=== PATIENT | male | born 1940 | race Caucasian/White ===

== ENCOUNTER 2018-10-18 20:33 | Inpatient (IN) | payer MEDICARE, OTHER, SELFPAY ==
[2018-10-18 20:33] VITALS: BP 103/62; PULSE 79; RESP 18; TEMP 35.5; O2SAT 100; BMI 41.8
--- NOTE | 2018-10-18 20:42 | ED.RN ---
PT WAS DROPPED OFF AT FRONT DOOR BY . PT ABLE TO ANSWER NAME AND BIRTHDAY. STATES HE WAS SHORT OF BREATH. AFTER THAT PATIENT STARTED TALKING INCOHERENTLY, NOT MAKING ANY SENSE. WHEN ARRIVED BACK, SHE STATES HE CAME HOME FROM A MEETING AT 1999 AND SHE NOTICED HE WAS HAVING TROUBLE SPEAKING. PT SENT STRAIGHT BACK TO ROOM 17 AND PRIMARY RN NOTIFIED.
[2018-10-18 20:44] VITALS: BP 124/62; PULSE 77; RESP 18; O2SAT 95
--- NOTE | 2018-10-18 20:44 | ED.RN ---
RN CALLED FOR EKG, PULLED OLD EKGS FOR
[2018-10-18 20:46] VITALS: BP 98/68; PULSE 75; RESP 18; O2SAT 97
[2018-10-18 20:56] LABS: Bedside Glucose 139 mg/dL (70-110)
--- NOTE | 2018-10-18 20:59 | EKG12_ITS ---
Test Reason : Blood Pressure : / mmHG Vent. Rate : 075 BPM Atrial Rate : 075 BPM P-R Int : 206 ms QRS Dur : 082 ms QT Int : 428 ms P-R-T Axes : 035 012 102 degrees QTc Int : 477 ms Normal sinus rhythm Possible Left atrial enlargement Left ventricular hypertrophy Nonspecific ST abnormality Abnormal QRS-T angle, consider primary T wave abnormality Abnormal ECG Confirmed by CORINA SANDS, CARLA ([id number]), order editor MC DUGAN ([id number]) on 10/21/2018 1:14:14 PM Referred By: Sanket Browning Confirmed By:CARLA ARRIAGA MD
[2018-10-18 21:07] LABS: Absolute Lymphocyte Count 1.35 X10^3/ul (0.83-4.51); Absolute Neutrophil Count 7.3 X10^3/uL (2.0-7.7); Basophil# 0.04 X10^3/uL; Basophil% 0.4 % (0-1); Eosinophil# 0.11 X10^3/uL; Eosinophils% 1.1 % (0-5); Hemoglobin 16.9 g/dl (13.0-16.5); Lymphocyte # 1.35 X10^3/ul (4.0); Lymphocyte % 13.6 % (19-41); Mean Corp Hgb Conc 35.2 g/gl (32-36); Mean Corpuscular Hgb 32.4 pg (27.0-32.0); Mean Corpuscular Volume 92.1 fL (80-94); Mean Platelet Vol. 11.5 fl (6.2-12.0); Monocyte# 1.13 X10^3/uL; Monocyte% 11.4 % (0-10); Neutrophil # 7.26 X10^3/uL (2.7-7.7); Neutrophil % 73.2 % (47-70); Platelet Count 154 K/mm3 (150-450); RBC Distribution Width CV 12.7 % (11.6-14.6); RBC Distribution Width SD 42.7 fl (35.1-43.9); Red Blood Count 5.21 M/mm3 (4.6-6.2); White Blood Count 9.9 K/mm3 (4.4-11.0)
--- NOTE | 2018-10-18 21:09 | RAD_ITS ---
STUDY: X-RAY CHEST REASON FOR EXAM: Male, 78 years old. Increased shortness of breath. TECHNIQUE: Single frontal view of the chest. COMPARISON: February 18, 2011. FINDINGS: The patient appears slightly rotated to the right. There is no new focal consolidation. Normal size heart. Normal mediastinum and eliseo. Normal visualized pulmonary arteries. There is atherosclerotic calcification of the aortic arch with tortuosity. There are diffuse degenerative changes of the visualized thoracic spine. Normal visualized ribs, clavicles, and shoulders. There is no demonstrated abnormality of the visualized soft tissue structures of the upper abdomen. RAD/Chest 1 View (Portable) IMPRESSION: No acute cardiopulmonary process. Electronically Signed: Carole Ashley MD at 22:32 EST Tel , Service support ,
[2018-10-18 21:12] LABS: POSITIVE COUNT NO; POSITIVE DIFFERENTIAL NO; POSITIVE MORPHOLOGY NO
[2018-10-18] MEDS: Aspirin 81 MG TAB.CHEW 324 MG PO (21:45)
[2018-10-18 22:19] LABS: Anion Gap 7 (5-15); BUN 27 mg/dL (7-18); BUN/Creat Ratio 18.2 RATIO (10-20); Chloride 108 mmol/L (98-107); Creatinine, Serum 1.48 mg/dL (0.70-1.30); EST Glomerular Filtration Rate 49 mL/min (>60); Est Glom Filt Rate - Afr Amer 59 mL/min (>60); Estimated Creatinine Clearance 44.52 ml/min; Glucose 134 mg/dL (74-106); Potassium 4.8 mmol/L (3.5-5.1); Sodium Level 140 mmol/L (136-145)
[2018-10-18 22:47] VITALS: BP 107/53; PULSE 72; RESP 12; O2SAT 95
--- NOTE | 2018-10-18 23:00 | ED.VISSUMM ---
- ER Visit Summary Date of Service: 10/18/18 Chief Complaint: Shortness of breath History of Present Illness: The patient is a [address] Luna. He is a poor informant and minimizes things. 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 He denied any chest pain during this. Patient's reports that he has had this ever since April of last year. Patient denies any chest tightness with this. Patient denies any orthopnea. He did have an episode of paroxysmal nocturnal dyspnea approximately 1 week ago. Also reports that he has right shoulder pain for the past 3 months that is intermittent. It is not related to these episodes of exertion or shortness of breath. Is worsened with movement. Is 3 out of 10 severity currently. Physical Examination: Vitals: Stable. Afebrile. General: Well-nourished and well-developed. Head: Normocephalic atraumatic. Neck: Supple, no lymphadenopathy. No JVD. Nontender. Cardiovascular: Regular rate and rhythm. 3 out of 6 systolic murmur. Respiratory: No respiratory distress. Clear to auscultation bilaterally. Abdominal: Soft, nontender, nondistended, normal bowel sounds. No guarding, rebound, or peritoneal signs. Back: Nontender. Extremities: Nontender, 1+ pitting edema lower extremity bilaterally. Skin: Normal color, no rash. Neurologic: Alert and oriented ?3. Cranial nerves II through XII are intact. Normal strength and sensation. Psych: Normal affect. Test Results: EKG is sinus at [address] depression in leads V3 to V6. This is a change from 2010. Initial troponin is 0.554. Chem-7 more for chloride 108, glucose 134, BUN 27, creatinine 1.48. CBC is more for hemoglobin of 16.9, 7 neutrophils 73, lymphs lites 14, monocytes of 11. Chest x-ray shows chronic changes. Emergency Department Course and Treatment: Patient was treated with aspirin. He is resting comfortably. Treatment Plan: Patient was discussed with Dr. Browning. He has ischemic EKG changes and an indeterminate troponin. He will be admitted to the hospital for further evaluation and treatment. He is asymptomatic at this time. Disposition: Admitted in stable condition. Impression: 1. Acute coronary syndrome. 2. ANNETTE score of 3. This note was generated with [email or web address] dictation software. It may contain incorrect words, spelling, and punctuation that were not noted in review of the chart prior to signing ED Disposition - Plan for ED Patient: Referrals: Sanju Luna MD [Primary Care Provider] -
--- NOTE | 2018-10-18 23:53 | PCM.HP.STD ---
Problem List (1) Hyperlipidemia Status: Chronic (2) Benign essential hypertension Status: Chronic History of Present Illness Date of Admission: 10/18/18 Chief Complaint: Confusion, difficulty findings words The patient is a 78 year old M with past medical history as mentioned above presented to the emergency room because of confusion and shortness of breath. The patient is very hard of hearing and he is poor informant and was not able to provide any good history. His was at the bedside and also she was not a good informant and she was not able to provide detailed history. When I asked the patient's about the main symptoms that brought the patient in today she stated that she brought him today because he came home from outside this evening, was confused, not making any sense and having difficulty finding words and also she said she brought him in tonight because of shortness of breath. She mentioned that after he came to the emergency room, he improved and he was making sense and was alert and oriented. She mentioned that he has been complaining of shortness of breath over the last several months, mainly exertional, aggravated by activity, relieved by rest, associated with profound weakness and fatigue and no other associated symptoms. Patient denies any chest pain, palpitation, dizziness or lightheadedness. He denied blurred vision, focal arm or leg weakness. He had a history of hypertension and he has been on lisinopril and HCTZ. He had a history of hyperlipidemia and he has been on statins. In the emergency department, his vital signs are stable. His routine blood work was remarkable for hemoglobin of 16.9 g/dL, BUN of 27, creatinine of 1.48. His EKG revealed normal sinus rhythm, nonspecific ST-T wave changes and no evidence of acute ischemic changes. Troponin was 0.554. Chest x-ray revealed cardiomegaly and widened mediastinum but patient was tilted. He is being admitted for exertional shortness of breath, abnormal cardiac enzymes, confusion/expressive aphasia with concern for TIA versus acute stroke. Past Medical History Past Medical History (Chronic Problems): Chronic Problems Hyperlipidemia (Chronic) Benign essential hypertension (Chronic) Allergies No Known Allergies Allergy (Verified 10/18/18 20:37) Home Medications: Ambulatory Orders Medication Instructions Recorded Aspirin [Aspir 81] 81 mg PO DAILY 10/18/18 Hydrochlorothiazide 12.5 mg PO DAILY 10/18/18 Lisinopril 40 mg PO DAILY 10/18/18 Multivitamin with Minerals 1 tab PO DAILY 10/18/18 [Multiple Vitamin] Simvastatin 40 mg PO DAILY 10/18/18 Surgical History: tonsillectomy Psychiatric History: No pertinent psych hx Lives: Spouse/ Significant Other Smoking Status: Never smoker Alcohol: None Drugs: None - *Family History Maternal History Items: No pertinent history Paternal History Items: No pertinent history Review of Systems Constitutional: Reports: Weakness, Fatigue. Denies: Anorexia, Chills, Fever Eyes: Denies: Blurred vision, Double vision, Drainage, Redness HEENT: Denies: Difficulty Hearing, Ear Pain, Eye Pain, Nasal Congestion, Sore Throat Cardiovascular: Denies: Chest Pain, Chest Pressure, Edema, Heaviness, Light Headedness, Orthopnea, Palpitations, Syncope Respiratory: Reports: Shortness of Breath, Shortness of breath upon exertion. Denies: Cough, Pleuritic Pain, Sputum production, Wheezing Gastrointestinal: Denies: Abdominal Pain, Constipation, Diarrhea, Nausea, Vomiting Genitourinary: Denies: Dysuria, Frequency, Hematuria Musculoskeletal: Denies: Arm Pain, Back Pain, Foot Pain Skin: Denies: Dryness, Rash Neurological: Reports: Change in Speech, Confusion. Denies: Balance problems, Headaches, Incoordination, Numbness, Tingling Psychiatric: Denies: Anxiety, Depression Endocrine: Denies: Change in Body Habitus, Polydipsia VTE Information - Inpt Only VTE Present on Admission: No VTE Mechan Device Prophylaxis: None VTE Pharm Prophylaxis ordered?: Yes - Physical Exam General: Alert, Oriented x3, Cooperative, No apparent distress HEENT: Atraumatic, PERRLA, EOMI, Normocephalic Oral: Moist Mucosa, No Gingival or Mucosal Lesions/ Ulcerations Neck: Supple, No JVD, Negative Carotid Bruits, Trachea Midline, Thyroid Normal Size and Texture Lungs: Clear to auscultation, No rhonchi, No wheeze, No rales, Diminished Cardiovascular: Regular rate, Regular Rhythm, Normal S1, Normal S2, PMI Normal Abdomen: Bowel Sounds Present, Soft, Non Tender, Non-Distended, No Hepato-splenomegaly, Obese Extremities: No clubbing, No cyanosis, Edema - Trace edema. Skin: No rashes, No breakdown Lymphatic: No Cervical, Supraclavicular, or Inguinal Adenopathy Neurological: Cranial nerves II-XII grossly intact, Motor Exam 5/5 strength throughout Psych/Mental Status: Normal Affect, Appropriate, Alert and oriented to time, place, person, mood and affect Vital Signs Temp Pulse Resp BP Pulse Ox 96 F L 72 12 107/53 L 95 10/18/18 20:33 10/18/18 22:47 10/18/18 22:47 10/18/18 22:47 10/18/18 22:47 Oxygen Delivery Method Room Air Weight: 300 lb Body Mass Index (BMI) 41.8 Finger Stick Blood Glucose 139 Laboratory Tests Past 24 Hrs 10/18/18 10/18/18 10/18/18 20:50 20:50 21:50 WBC 9.9 RBC 5.21 Hgb 16.9 H Hct 48.0 MCV 92.1 MCH 32.4 H MCHC 35.2 RDW 12.7 RDW Differential 42.7 Plt Count 154 MPV 11.5 Immature Gran % (Auto) 0.300 Neut % (Auto) 73.2 H Lymph % (Auto) 13.6 L Meade % (Auto) 11.4 H Eos % (Auto) 1.1 Baso % (Auto) 0.4 Absolute Neuts (auto) 7.3 Absolute Lymphs (auto) 1.35 Total Counted Not Reportable Sodium Cancelled 140 Potassium Cancelled 4.8 Chloride Cancelled 108 H Carbon Dioxide Cancelled 25.0 Anion Gap Cancelled 7 BUN Cancelled 27 H Creatinine Cancelled 1.48 H Estim Creat Clear Calc Cancelled 44.52 Est GFR (MDRD) Af Amer Cancelled 59 L Est GFR (MDRD) Non-Af Cancelled 49 L BUN/Creatinine Ratio Cancelled 18.2 Glucose Cancelled 134 H Calcium Cancelled 9.0 Troponin I Cancelled 0.554 H POC Glucose 10/18/18 20:41 POC Glucose 139 H Clinical Impression(s) from Imaging Studies Chest X-Ray 10/18/18 21:09 IMPRESSION: No acute cardiopulmonary process. Electronically Signed: Carole Ashley MD at 22:32 EST Tel , Service support , Assessment/Plan This is a 78 years old male patient presented to the emergency room because of multiple complaints including reported confusion, difficulty finding words and more than 3 months of history of exertional shortness of breath, found to have borderline elevated troponin, cardiomegaly and widened mediastinum on chest x-ray and he is being admitted for evaluation. #1 exertional shortness of breath/indeterminate troponin: EKG revealed sinus rhythm, nonspecific ST-T wave changes and no evidence of acute ischemic changes. Troponin is 0.554. Chest x-ray revealed mild congestion, cardiomegaly. Vital signs are stable, pulse ox is maintained on room air. Plan: Admit to PCU, cardiac monitoring, serial cardiac enzymes, repeat EKG tomorrow morning, IV fluids, CTA chest tomorrow morning after repeat BMP to ensure improvement of her kidney function, Tylenol as needed, Zofran as needed, repeat CBC and BMP tomorrow morning, 2D echocardiogram, cardiology consult, start baby aspirin, Coreg, continue statins, PT OT evaluation and treatment. #2 transient confusion/expressive aphasia: Does symptoms reported by . At this time, patient is alert and oriented x3, no slurred speech. No focal deficit on physical exam. Plan: CT scan brain, NIH stroke scale, bilateral carotid Doppler, 2D echocardiogram, aspirin and statin as above. May need to consider MRI brain to rule out acute stroke. #3 wide mediastinum: Chest x-ray reviewed. Compared to chest x-ray from 2011, mediastinum looked more white with cardiomegaly. Plan: CTA chest tomorrow morning after IV fluids. N #4 renal insufficiency: Admission creatinine is 1.48, unknown baseline creatinine. Plan: IV fluids, input output chart, repeat BMP tomorrow morning, hold HCTZ and lisinopril. #5 hypertension: Blood pressure stable, hold HCTZ and lisinopril, start Coreg. #6 hyperlipidemia: Continue statins. #7 DVT prophylaxis: SCDs. This note was generated with [employer] dictation software. It may contain incorrect words, spelling, and punctuation that were not noted in checking the note before signing. Code Visit Inpatient E&M: 31012 Init Hosp L3
--- NOTE | 2018-10-18 23:55 | ECHOCS_ITS ---
Version 2 Reason For Study: Dyspnea/SOB Procedure This was a 2D Doppler, Color Flow transthoracic echocardiogram. Exam performed portable in patient room. Left Ventricle Normal LV size. Severe concentric left ventricular hypertrophy. Left ventricular systolic function is normal. The estimated ejection fraction is 60 %. Stage 1 diastolic dysfunction. No regional wall motion abnormalities noted. Right Ventricle The right ventricle is not well visualized. Normal systolic function. Atria Normal left atrium. Normal right atrium. Mitral Valve Mitral valve not well visualized. Tricuspid Valve The tricuspid valve is not well visualized. Aortic Valve The aortic valve is not well visualized. Peak aortic valve gradient 102 mmHg. Mean aortic valve gradient 64 mmHg. Severe aortic stenosis. Calculated aortic valve area (continuity equation) is 0.88 cm2. Pulmonic Valve The pulmonic valve is not well visualized. Great Vessels Normal aortic root. The pulmonary artery is normal size. Normal inferior vena cava. Pericardium/Pleural No pericardial effusion. Medication Definity0.3ml given slow IV push to enhance endocardial definition. Performed a rapid injection of agitated mix of 9 cc saline and 1cc air to assess for atrial septal defect. MMode/2D Measurements & Calculations LVIDd: 4.7 cm IVSd: 1.7 cm LVOT diam: 2.1 cm LVIDs: 3.5 cm LVPWd: 1.8 cm RVDd: 4.0 cm FS: 25.3 % LVOT area: 3.5 cm2 Ao root diam: 3.4 cm LAV(MOD-bp): 103.8 ml LVAd ap4: 43.8 cm2 LAV(MOD-bp) Indexed: 41.4 ml/m2 EDV(MOD-sp4): 148.1 ml LAV(MOD-sp2): 108.8 ml EDV(sp4-el): 151.3 ml LAV(MOD-sp4): 90.0 ml LVAs ap4: 30.4 cm2 ESV(MOD-sp4): 80.9 ml ESV(sp4-el): 82.4 ml EF(MOD-sp4): 45.4 % EF(sp4-el): 45.5 % SV(MOD-sp4): 67.3 ml SV(sp4-el): 68.9 ml LA A4 area: 27.9 cm2 LA dimension(2D): 4.1 cm RA A4 area: 16.6 cm2 Time Measurements MV dec time: 0.11 sec Doppler Measurements & Calculations MV E max michael: 130.6 cm/sec Lat Peak E' Michael: 4.2 cm/sec Med Peak E' Michael: 3.5 cm/sec MV A max michael: 167.5 cm/sec E/E' lat: 31.1 E/E' med: 37.5 MV E/A: 0.78 MV V2 max: 197.4 cm/sec MV P1/2t max michael: 158.4 cm/sec Ao V2 max: 505.7 cm/sec MV max P.6 mmHg MV P1/2t: 88.0 msec Ao max P.3 mmHg MV V2 mean: 119.5 cm/sec MV dec slope: 526.9 cm/sec2 Ao V2 mean: 380.0 cm/sec MV mean P.4 mmHg MVA(P1/2t): 2.5 cm2 Ao mean P.2 mmHg MV V2 VTI: 53.1 cm Ao V2 VTI: 130.7 cm MVA(VTI): 2.4 cm2 JAMAR(I,D): 0.97 cm2 JAMAR(V,D): 0.88 cm2 LV V1 max: 128.0 cm/sec SV(LVOT): 127.2 ml PA V2 max: 90.6 cm/sec LV V1 max P.6 mmHg LV V1 mean P.9 mmHg LV V1 mean: 93.9 cm/sec LV V1 VTI: 36.5 cm Interpretation Summary Normal LV size. Severe concentric left ventricular hypertrophy. Left ventricular systolic function is normal. The estimated ejection fraction is 60 %. Stage 1 diastolic dysfunction. Mean aortic valve gradient 64 mmHg. Severe aortic stenosis. Calculated aortic valve area (continuity equation) is 0.88 cm2. Contrast injection was performed. The study was technically difficult. Ordering Physician: Sanket Browning Referring Physician: Sanju Luna Performed By: Manuela Barrios RDCS, RVT
--- NOTE | 2018-10-18 23:55 | CDU_ITS ---
Reason For Study: TIA Rt. Velocities/BP Lt. Velocities/BP Prox CCA 75/2 cm/sec. Prox CCA 68/1 cm/sec. Mid CCA 58/2 cm/sec. Mid CCA 82/0 cm/sec. Dist CCA 67/2 cm/sec. Dist CCA 81/0 cm/sec. Prox ICA 54/9 cm/sec. Prox ICA 65/9 cm/sec. Mid ICA 68/9 cm/sec. Mid ICA 63/11 cm/sec. Dist ICA 73/16 cm/sec. Dist ICA 92/22 cm/sec. Rt. ICA/CCA = 1.26. Lt. ICA/CCA = 1.12. Prox ECA 91/1 cm/sec. Prox ECA 85/1 cm/sec. Rt. Vert. 34/1 cm/sec. Lt. Vert. 63/6 cm/sec. Right Extracranial There is heterogeneous, irregular atherosclerotic plaque noted in the right common carotid artery. There is heterogeneous, irregular atherosclerotic plaque noted in the right internal carotid artery. There is heterogeneous, irregular atherosclerotic plaque noted in the right external carotid artery. Antegrade flow is noted in the right vertebral artery. Left Extracranial There is heterogeneous, irregular atherosclerotic plaque noted in the left common carotid artery. There is heterogeneous, irregular atherosclerotic plaque noted in the left internal carotid artery. The atherosclerotic plaque causes acoustic shadowing. There is heterogeneous, irregular atherosclerotic plaque noted in the left external carotid artery. Antegrade flow is noted in the left vertebral artery. Procedure Carotid Duplex [id number]. Exam performed portable in patient room. Interpretation Summary Irregular calcific plague right common carotid and external carotid and proximal internal carotid with no hemodynamically significant occlusion; <50% internal and external carotid stenosis. Irregular calcific plague in the left common carotid and proximal internal and external carotids with no hemodynamically significant stenosis and <50% stenosis left internal and external carotids Patent and antegrade vertebrals bilaterally Ordering Physician: Sanket Browning Referring Physician: Sanju Lnua Performed By: Manuela Barrios, [place], RVT
[2018-10-19] VITALS (15 sets, daily range): BP systolic 112–145; BP diastolic 51–81; PULSE 66–94; RESP 16–18; TEMP 36.6–36.9; O2SAT 92–97; BMI 43.1
--- NOTE | 2018-10-19 00:05 | CT_ITS ---
STUDY: CT BRAIN WITHOUT CONTRAST REASON FOR EXAM: Male, 78 years old. Altered mental status RADIATION DOSAGE (If Supplied By Facility): CTDIvol = ( 44.99 ) mGy, DLP = ( 846.73 ) mGycm TECHNIQUE: Transaxial CT imaging of the brain was performed without administration of intravenous contrast material. Individualized dose optimization techniques were used for this CT. COMPARISON: None. FINDINGS: Normal soft tissue structures. Normal calvarium. There is moderate cerebral atrophy with widening of the extra-axial spaces and ventricular dilatation. There is mild bilateral periventricular and subcortical white matter hypoattenuation which is symmetric in distribution. Normal basal ganglia and thalami. Normal brainstem. Normal cerebellum. There is no intracranial hemorrhage. There are no findings of an acute ischemic infarction. Normal visualized paranasal sinuses. CT/Brain/Head without Contrast IMPRESSION: 1. No evidence of an acute intracranial abnormality. 2. Mild bilateral periventricular and subcortical white matter chronic small vessel disease with age appropriate cerebral atrophy. Electronically Signed: Hola Allen MD at 4:35 EST Tel , Service support ,
[2018-10-19] MEDS: 0.9% Normal Saline 1,000 ML 75 ML IV (00:24)
[2018-10-19 01:42] LABS: International Normalized Ratio 1.1; Prothrombin Time (Protime)PT. 13.8 SECONDS (11.7-14.9)
[2018-10-19 04:50] LABS: Hematocrit 44.5 % (40-54); Hemoglobin 14.7 g/dl (13.0-16.5); Mean Corpuscular Hgb 30.2 pg (27.0-32.0); Mean Corpuscular Volume 91.6 fL (80-94); Platelet Count 151 K/mm3 (150-450); RBC Distribution Width CV 12.9 % (11.6-14.6); RBC Distribution Width SD 42.7 fl (35.1-43.9); Red Blood Count 4.86 M/mm3 (4.6-6.2); White Blood Count 7.8 K/mm3 (4.4-11.0)
[2018-10-19 04:55] LABS: ALB/GLOB Ratio 1.2 RATIO (0.9-2.4); AST(SGOT) 25 U/L (15-37); Alanine Aminotransfer ALT/SGPT 31 U/L (16-61); Albumin, Serum 3.5 g/dL (3.2-5.0); Alkaline Phosphatase 63 U/L (45-117); Anion Gap 9 (5-15); BUN 26 mg/dL (7-18); Calcium,Total 8.7 mg/dL (8.5-10.1); Chloride 109 mmol/L (98-107); Cholesterol 149 mg/dL (200); Creatinine, Serum 1.18 mg/dL (0.70-1.30); EST Glomerular Filtration Rate 64 mL/min (>60); Est Glom Filt Rate - Afr Amer 77 mL/min (>60); Estimated Creatinine Clearance 55.84 ml/min; Glucose 121 mg/dL (74-106); High Density Lipoprotein 39 mg/dL; Potassium 4.6 mmol/L (3.5-5.1); Protein, Total 6.5 g/dL (6.4-8.2); Sodium Level 142 mmol/L (136-145); Triglycerides 168 mg/dL; Very Low Density Lipoprotein 34 mg/dL (5-40)
[2018-10-19 04:57] LABS: Scan Indicated on CBC? Y/N NO
--- NOTE | 2018-10-19 05:55 | EKG12_ITS ---
Test Reason : Blood Pressure : / mmHG Vent. Rate : 067 BPM Atrial Rate : 067 BPM P-R Int : 196 ms QRS Dur : 098 ms QT Int : 430 ms P-R-T Axes : 040 022 149 degrees QTc Int : 454 ms Normal sinus rhythm ST & T wave abnormality, consider lateral ischemia Abnormal ECG When compared with ECG of 18-OCT-2018 20:53, MANUAL COMPARISON REQUIRED, DATA IS UNCONFIRMED Confirmed by CORINA SANDS, CARLA ([id number]), video effects editor MC UDGAN ([id number]) on 10/22/2018 1:16:55 PM Referred By: Sanket Browning Confirmed By:CARLA ARRIAGA MD
[2018-10-19 07:25] LABS: Hemoglobin A1c 6.2 % (4.2-6.3)
[2018-10-19] MEDS: Carvedilol 3.125 MG TABLET PO ×2 (09:28→22:20)
[2018-10-19] MEDS: Aspirin E.C. 81 MG Tablet PO (09:28)
[2018-10-19] MEDS: Acetylcysteine (Mucomyst Oral) 20% SOLN 1200 MG PO (09:29)
--- NOTE | 2018-10-19 10:09 | PN_ITS ---
Subjective: Patient is very hard of hearing. 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 Patient gets easily short of breath. Was walked by physical therapist and got easily short of breath on walking about 100 feet. Even get short of breath on bending down. Denies chest pain, palpitation or lightheadedness. EKG showed normal sinus rhythm with nonspecific ST-T changes troponins are elevated in the non-STEMI range. Seen by director of resource development Dr. Kebede and discussed with him. Vitals/I&O's: Vital Signs Temp Pulse Resp BP Pulse Ox 98.3 F 88 16 117/81 H 95 10/19/18 09:10 10/19/18 09:10 10/19/18 09:10 10/19/18 09:10 10/19/18 09:10 Oxygen Delivery Method Room Air Weight: 309 lb 4.937 oz Body Mass Index (BMI) 43.1 Finger Stick Blood Glucose 139 Intake and Output for Last 24 Hours 10/17/18 10/18/18 10/19/18 23:59 23:59 23:59 Intake Total 456 / 456 Balance 456 / 456 General: Alert, Oriented x3, Cooperative HEENT: Atraumatic, PERRLA, EOMI, Normocephalic, - - Bilateral sensorineural deafness, left more than right Neck: Supple, No JVD, Negative Carotid Bruits Lungs: Clear to auscultation, No rhonchi, No wheeze, No rales, Diminished - Air entry is diminished bilaterally in both lung bases Cardiovascular: Regular rate, Regular Rhythm, Normal S1, Normal S2, No murmurs Abdomen: Bowel Sounds Present, Soft, Non Tender, Non-Distended Extremities: Capillary Refill Less than 3 Seconds, Edema - Chronic bilateral lower extremity edema Skin: No rashes, No breakdown Musculoskeletal: No Tenderness to Palpation of Joints or Extremities, Arthritic Changes, Muscle Wasting Neurological: Cranial nerves II-XII grossly intact, Deep Tendon Reflexes 2+/4 and Symmetrical, Neuro grossly intact Psych/Mental Status: Normal Affect, Appropriate Laboratory Results 10/18/18 20:41: POC Glucose 139 H 10/18/18 20:50: WBC 9.9, RBC 5.21, Hgb 16.9 H, Hct 48.0, MCV 92.1, MCH 32.4 H, MCHC 35.2, RDW 12.7, RDW Differential 42.7, Plt Count 154, MPV 11.5, Immature Gran % (Auto) 0.300, Neut % (Auto) 73.2 H, Lymph % (Auto) 13.6 L, [place] % (Auto) 11.4 H, Eos % (Auto) 1.1, Baso % (Auto) 0.4, Absolute Neuts (auto) 7.3, Absolute Lymphs (auto) 1.35, Total Counted Not Reportable 10/18/18 20:50: Sodium Cancelled, Potassium Cancelled, Chloride Cancelled, Carbon Dioxide Cancelled, Anion Gap Cancelled, BUN Cancelled, Creatinine Cancelled, Estim Creat Clear Calc Cancelled, Est GFR (MDRD) Af Amer Cancelled, Est GFR (MDRD) Non-Af Cancelled, BUN/Creatinine Ratio Cancelled, Glucose Cancelled, Calcium Cancelled, Troponin I Cancelled 10/18/18 21:50: Sodium 140, Potassium 4.8, Chloride 108 H, Carbon Dioxide 25.0, Anion Gap 7, BUN 27 H, Creatinine 1.48 H, Estim Creat Clear Calc 44.52, Est GFR (MDRD) Af Amer 59 L, Est GFR (MDRD) Non-Af 49 L, BUN/Creatinine Ratio 18.2, Glucose 134 H, Calcium 9.0, Troponin I 0.554 H 10/19/18 01:10: PT 13.8, INR 1.1 10/19/18 01:10: Troponin I 0.948 H* 10/19/18 04:24: Hemoglobin A1c 6.2 10/19/18 04:24: WBC 7.8, RBC 4.86, Hgb 14.7, Hct 44.5, MCV 91.6, MCH 30.2, MCHC 33.0, RDW 12.9, RDW Differential 42.7, Plt Count 151, MPV 11.0 10/19/18 04:24: Sodium 142, Potassium 4.6, Chloride 109 H, Carbon Dioxide 24.0, Anion Gap 9, BUN 26 H, Creatinine 1.18, Estim Creat Clear Calc 55.84, Est GFR (MDRD) Af Amer 77, Est GFR (MDRD) Non-Af 64, BUN/Creatinine Ratio 22.0 H, Glucose 121 H, Calcium 8.7, Total Bilirubin 0.70, AST 25, ALT 31, Alkaline Phosphatase 63, Total Protein 6.5, Albumin 3.5, Globulin 3.0, Albumin/Globulin Ratio 1.2, Triglycerides 168, Cholesterol 149, LDL Cholesterol 76, VLDL Cholesterol 34, HDL Cholesterol 39 L 10/19/18 04:24: Troponin I 1.410 H* Current Medications Acetaminophen (Tylenol) 650 mg PO Q6H PRN PRN PRN Reason: Fever, headache, pain Acetylcysteine (Mucomyst) 1,200 mg PO BID [facility] Last Admin: 10/19/18 09:29 Dose: 1,200 mg Aspirin (Ecotrin) 81 mg PO DAILY [facility] Last Admin: 10/19/18 09:28 Dose: 81 mg Atorvastatin Calcium (Lipitor) 20 mg PO QHS [facility] Carvedilol (Coreg) 3.125 mg PO BID [facility] Last Admin: 10/19/18 09:28 Dose: 3.125 mg Sodium Chloride () 1,000 mls @ 75 mls/hr IV .[id number] [facility] Last Admin: 10/19/18 00:24 Dose: 75 mls/hr Magnesium Hydroxide (Milk Of Magnesia) 30 ml PO DAILY PRN PRN Reason: Constipation Ondansetron HCl (Zofran) 4 mg IV Q6H PRN PRN PRN Reason: NAUSEA/VOMITING Sodium Chloride () 5 - 15 ml IV UD PRN PRN Reason: SALINE FLUSH Medical Necessity - Tobacco Use Smoking Status: Former smoker Assessment/Plan This is a 78 years old male patient presented to the emergency room because of multiple complaints including reported confusion, difficulty finding words and more than 3 months of history of exertional shortness of breath, found to have borderline elevated troponin, cardiomegaly and widened mediastinum on chest x- ray and he is being admitted for evaluation. #1 NSTEMI: Patient had shortness of breath and high troponin. EKG revealed sinus rhythm, nonspecific ST-T wave changes and no evidence of acute ischemic changes. Chest x-ray revealed mild congestion, cardiomegaly. The patient is being admitted on PCU. Continue medical management including aspirin, Coreg, statin. HCTZ and lisinopril is on hold because of kidney failure and patient had CT scan with contrast on 10/19/2018. Plan for heart cath on Sunday. #2 transient confusion/expressive aphasia, exact etiology unclear possible TIA: Resolved. At this time, patient is alert and oriented x3, no slurred speech. No focal deficit on physical exam. CT brain does not show acute change. MRI brain is ordered to rule out acute stroke. #3 Wide mediastinum ruled out: Chest x-ray reviewed. CT angiogram was done in in the morning today and reviewed. Shows crowding of ribs with atelectasis and scarring in posterolateral segment of left lower lobe. Also degenerative changes including aortic valve leaflet calcification and atherosclerotic vascular calcification. No wide mediastinum Compared to chest x-ray from 2011, mediastinum looked more white with cardiomegaly. Plan: CTA chest tomorrow morning after IV fluids. N #4 renal insufficiency: Admission creatinine is 1.48, unknown baseline creatinine. Plan: IV fluids, input output chart, repeat BMP tomorrow morning, hold HCTZ and lisinopril. #5 hypertension: Blood pressure stable, hold HCTZ and lisinopril, start Coreg. #6 hyperlipidemia: Continue statins. #7 DVT prophylaxis: SCDs. Laboratory Results Troponin I 0.554 H 10/19/18 01:10: Troponin I 0.948 H* 10/19/18 04:24: Hemoglobin A1c 6.2 10/19/18 04:24: Triglycerides 168, Cholesterol 149, LDL Cholesterol 76, VLDL Cholesterol 34, HDL Cholesterol 39 L 10/19/18 04:24: Troponin I 1.410 H* Clinical Impression(s) from Imaging Studies Chest X-Ray 10/18/18 21:09 IMPRESSION: No acute cardiopulmonary process. Brain CT 10/19/18 00:05 IMPRESSION: 1. No evidence of an acute intracranial abnormality. 2. Mild bilateral periventricular and subcortical white matter chronic small vessel disease with age appropriate cerebral atrophy. Chest CTA 10/19/18 11:00 IMPRESSION: 1. No demonstrated pulmonary embolism or arterial dissection. 2. The lungs are underexpanded, and there is crowding. Irregular subsegmental atelectasis or scarring also seen in the posterolateral basilar left lower lobe. 3. The heart is enlarged. There is calcification of the mitral valve annulus and aortic valve leaflets. Atherosclerotic vascular calcifications are also present. 4. Mildly lobulated and heterogeneous thyroid gland with occasional coarse calcifications. 5. Diffuse degenerative changes of the spine. Minor anterior wedging T7-T9 with exaggerated dorsal kyphosis. A mild thoracic S-shaped scoliosis also present. Code Visit Inpatient E&M: 56283 Subs Hosp L3
--- NOTE | 2018-10-19 10:25 | PCM.CONS.C ---
Reason for Consult Date of Consultation: 10/19/18 Reason for Consultation: Shortness of breath History of Present Illness: The patient is a 78 year old M who presented to the emergency room because of confusion and shortness of breath. The patient's mentioned that he has been complaining of shortness of breath over the last several months, mainly exertional, aggravated by activity, relieved by rest, associated with profound weakness and fatigue and no other associated symptoms. He appears to have had an element of confusion earlier on in the day. 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 Patient denies any chest pain, palpitation, dizziness or lightheadedness. He denied blurred vision, focal arm or leg weakness. He had a history of hypertension and he has been on lisinopril and HCTZ. He had a history of hyperlipidemia and he has been on statins. In the emergency department, his vital signs are stable. His routine blood work was remarkable for hemoglobin of 16.9 g/dL, BUN of 27, creatinine of 1.48. His EKG revealed normal sinus rhythm, nonspecific ST-T wave changes and no evidence of acute ischemic changes. Troponin was 0.554. Chest x-ray revealed cardiomegaly and widened mediastinum but patient was tilted. He is being admitted for exertional shortness of breath, abnormal cardiac enzymes, confusion/expressive aphasia with concern for TIA versus acute stroke. It was discussed with me yesterday and it was decided to pursue a CT scan of his chest after hydration which was done this morning. It demonstrated no evidence of pulmonary embolism or aortic aneurysm. Patient had a moment feels well with no EKG changes. Past Medical History Allergies/Adverse Reactions: Allergies No Known Allergies Allergy (Verified 10/18/18 20:37) Home Medications: Ambulatory Orders Medication Instructions Recorded Aspirin [Aspir 81] 81 mg PO DAILY 10/18/18 Hydrochlorothiazide 12.5 mg PO DAILY 10/18/18 Lisinopril 40 mg PO DAILY 10/18/18 Multivitamin with Minerals 1 tab PO DAILY 10/18/18 [Multiple Vitamin] Simvastatin 40 mg PO DAILY 10/18/18 Past Medical History (Chronic Problems): Chronic Problems Hyperlipidemia (Chronic) Benign essential hypertension (Chronic) Surgical History: tonsillectomy Psychiatric History: No pertinent psych hx - *Family History Maternal History Items: No pertinent history Paternal History Items: No pertinent history Lives: Spouse/ Significant Other Smoking Status: Former smoker Alcohol: None Drugs: None Review of Systems - Review of Systems General: Reports: Fatigue, Malaise. Denies: Fever, Night Sweats HEENT: Denies: Vision Change Cardiovascular: Reports: Shortness of Breath, Shortness of Breath with Exertion. Denies: Chest Discomfort, Orthopnea, PND, Peripheral Edema, Palpitations, Lightheadedness, Dizziness, Near Syncope, Syncope Respiratory: Denies: Cough, Sputum Production, Hemoptysis Gastrointestinal: Denies: Hematemesis, Hematochezia, Melena Genitourinary: Denies: Dysuria, Hematuria Muscoloskeletal: Denies: Myalgias Skin: Denies: Rash Neurological: Denies: Dizziness Psychiatric: Denies: Anxiety Endocrine: Denies: Unexplained Weight Loss Hematologic/ Lymphatic: Denies: Anemia Subjectve: Patient seen and evaluated. Objective: Vital Signs Temp Pulse Resp BP Pulse Ox 98.3 F 88 16 117/81 H 95 10/19/18 09:10 10/19/18 09:10 10/19/18 09:10 10/19/18 09:10 10/19/18 09:10 Oxygen Delivery Method Room Air Weight: 309 lb 4.937 oz Body Mass Index (BMI) 43.1 Finger Stick Blood Glucose 139 Intake and Output for Last 24 Hours 10/17/18 10/18/18 10/19/18 23:59 23:59 23:59 Intake Total 456 / 456 Balance 456 / 456 General: Awake, Alert, Oriented x 3 HEENT: PERRL, EOMI, Sclera Non Icteric Neck: Supple, Good ROM, No Lymph Node Enlargement Lungs: Clear to auscultation Cardiovascular: Regular Rhythm, Normal S1, Normal S2, No Murmurs, No Rubs, No Gallops Vascular: No Carotid Bruits, Normal Femoral Pulses, Normal Radial Pulses, Normal Dorsalis Pedal Pulse, Normal Posterior Tibial Pulses Abdomen: Bowel Sounds Present, Soft, Non Tender, No HSM, No Organomegaly Extremities: No Cyanosis, No Clubbing, No edema Musculoskeletal: No Erythema Skin: No Rashes Lymphatic: No Lymph Node Enlargement Neurological: No Focal Motor or Sensory Deficit Psych/Mental Status: Appropriate 10/18/18 20:50: WBC 9.9, RBC 5.21, Hgb 16.9 H, Hct 48.0, MCV 92.1, MCH 32.4 H, MCHC 35.2, RDW 12.7, RDW Differential 42.7, Plt Count 154, MPV 11.5, Immature Gran % (Auto) 0.300, Neut % (Auto) 73.2 H, Lymph % (Auto) 13.6 L, [place] % (Auto) 11.4 H, Eos % (Auto) 1.1, Baso % (Auto) 0.4, Absolute Neuts (auto) 7.3, Total Counted Not Reportable 10/18/18 20:50: Sodium Cancelled, Potassium Cancelled, Chloride Cancelled, Carbon Dioxide Cancelled, Anion Gap Cancelled, BUN Cancelled, Creatinine Cancelled, Est GFR (MDRD) Af Amer Cancelled, Est GFR (MDRD) Non-Af Cancelled, BUN/Creatinine Ratio Cancelled, Glucose Cancelled, Calcium Cancelled, Troponin I Cancelled 10/18/18 21:50: Sodium 140, Potassium 4.8, Chloride 108 H, Carbon Dioxide 25.0, Anion Gap 7, BUN 27 H, Creatinine 1.48 H, Est GFR (MDRD) Af Amer 59 L, Est GFR (MDRD) Non-Af 49 L, BUN/Creatinine Ratio 18.2, Glucose 134 H, Calcium 9.0, Troponin I 0.554 H 10/19/18 01:10: PT 13.8, INR 1.1 10/19/18 01:10: Troponin I 0.948 H* 10/19/18 04:24: Hemoglobin A1c 6.2 10/19/18 04:24: WBC 7.8, RBC 4.86, Hgb 14.7, Hct 44.5, MCV 91.6, MCH 30.2, MCHC 33.0, RDW 12.9, RDW Differential 42.7, Plt Count 151, MPV 11.0 10/19/18 04:24: Sodium 142, Potassium 4.6, Chloride 109 H, Carbon Dioxide 24.0, Anion Gap 9, BUN 26 H, Creatinine 1.18, Est GFR (MDRD) Af Amer 77, Est GFR (MDRD) Non-Af 64, BUN/Creatinine Ratio 22.0 H, Glucose 121 H, Calcium 8.7, Total Bilirubin 0.70, Triglycerides 168, Cholesterol 149, LDL Cholesterol 76, VLDL Cholesterol 34, HDL Cholesterol 39 L 03/02/19 04:24: Troponin I 1.410 H* Rhythm: EKG: Normal sinus rhythm with nonspecific ST-T wave changes Assessment/Plan 1. Non-ST elevation myocardial infarction Patient presents with shortness of breath and mild confusion. His EKG changes are unremarkable but his cardiac enzymes are suggestive of a non-ST elevation myocardial infarction. This is probably a manifestation of his angina. My recommendation at this time would be to start him on a beta-tata Continue aspirin Load with clopidogrel Consider cardiac catheterization on Sunday. The risk benefits alternatives have been explained to him and he does understand. An echocardiogram should be performed to assess his left ventricular function. 2. Shortness of breath The above likely secondary to angina. Would however recommend that we obtain an echocardiogram 3. Hypertension We will continue current blood pressure medications. 4. Lipid status Lipid status appears to be decent but will also start a statin. Thank you for allowing me to participate in the care of your patient. Please don't hesitate to call if any issues arise
--- NOTE | 2018-10-19 10:29 | CON.PCM_ITS ---
Reason for Consult Date of Consultation: 10/19/18 Reason for Consultation: Shortness of breath History of Present Illness: The patient is a 78 year old M who presented to the emergency room because of confusion and shortness of breath. The patient's mentioned that he has been complaining of shortness of breath over the last several months, mainly exertional, aggravated by activity, relieved by rest, associated with profound weakness and fatigue and no other associated symptoms. He appears to have had an element of confusion earlier on in the day. 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 Patient denies any chest pain, palpitation, dizziness or lightheadedness. He denied blurred vision, focal arm or leg weakness. He had a history of hypertension and he has been on lisinopril and HCTZ. He had a history of hyperlipidemia and he has been on statins. In the emergency department, his vital signs are stable. His routine blood work was remarkable for hemoglobin of 16.9 g/dL, BUN of 27, creatinine of 1.48. His EKG revealed normal sinus rhythm, nonspecific ST-T wave changes and no evidence of acute ischemic changes. Troponin was 0.554. Chest x-ray revealed cardiomegaly and widened mediastinum but patient was tilted. He is being admitted for exertional shortness of breath, abnormal cardiac enzymes, confusion/expressive aphasia with concern for TIA versus acute stroke. It was discussed with me yesterday and it was decided to pursue a CT scan of his chest after hydration which was done this morning. It demonstrated no evidence of pulmonary embolism or aortic aneurysm. Patient had a moment feels well with no EKG changes. Past Medical History Allergies/Adverse Reactions: Allergies No Known Allergies Allergy (Verified 10/18/18 20:37) Home Medications: Ambulatory Orders Medication Instructions Recorded Aspirin [Aspir 81] 81 mg PO DAILY 10/18/18 Hydrochlorothiazide 12.5 mg PO DAILY 10/18/18 Lisinopril 40 mg PO DAILY 10/18/18 Multivitamin with Minerals 1 tab PO DAILY 10/18/18 [Multiple Vitamin] Simvastatin 40 mg PO DAILY 10/18/18 Past Medical History (Chronic Problems): Chronic Problems Hyperlipidemia (Chronic) Benign essential hypertension (Chronic) Surgical History: tonsillectomy Psychiatric History: No pertinent psych hx - *Family History Maternal History Items: No pertinent history Paternal History Items: No pertinent history Lives: Spouse/ Significant Other Smoking Status: Former smoker Alcohol: None Drugs: None Review of Systems - Review of Systems General: Reports: Fatigue, Malaise. Denies: Fever, Night Sweats HEENT: Denies: Vision Change Cardiovascular: Reports: Shortness of Breath, Shortness of Breath with Exertion. Denies: Chest Discomfort, Orthopnea, PND, Peripheral Edema, Palpitations, Lightheadedness, Dizziness, Near Syncope, Syncope Respiratory: Denies: Cough, Sputum Production, Hemoptysis Gastrointestinal: Denies: Hematemesis, Hematochezia, Melena Genitourinary: Denies: Dysuria, Hematuria Muscoloskeletal: Denies: Myalgias Skin: Denies: Rash Neurological: Denies: Dizziness Psychiatric: Denies: Anxiety Endocrine: Denies: Unexplained Weight Loss Hematologic/ Lymphatic: Denies: Anemia Subjectve: Patient seen and evaluated. Objective: Vital Signs Temp Pulse Resp BP Pulse Ox 98.3 F 88 16 117/81 H 95 10/19/18 09:10 10/19/18 09:10 10/19/18 09:10 10/19/18 09:10 10/19/18 09:10 Oxygen Delivery Method Room Air Weight: 309 lb 4.937 oz Body Mass Index (BMI) 43.1 Finger Stick Blood Glucose 139 Intake and Output for Last 24 Hours 10/17/18 10/18/18 10/19/18 23:59 23:59 23:59 Intake Total 456 / 456 Balance 456 / 456 General: Awake, Alert, Oriented x 3 HEENT: PERRL, EOMI, Sclera Non Icteric Neck: Supple, Good ROM, No Lymph Node Enlargement Lungs: Clear to auscultation Cardiovascular: Regular Rhythm, Normal S1, Normal S2, No Murmurs, No Rubs, No Gallops Vascular: No Carotid Bruits, Normal Femoral Pulses, Normal Radial Pulses, Normal Dorsalis Pedal Pulse, Normal Posterior Tibial Pulses Abdomen: Bowel Sounds Present, Soft, Non Tender, No HSM, No Organomegaly Extremities: No Cyanosis, No Clubbing, No edema Musculoskeletal: No Erythema Skin: No Rashes Lymphatic: No Lymph Node Enlargement Neurological: No Focal Motor or Sensory Deficit Psych/Mental Status: Appropriate 10/18/18 20:50: WBC 9.9, RBC 5.21, Hgb 16.9 H, Hct 48.0, MCV 92.1, MCH 32.4 H, MCHC 35.2, RDW 12.7, RDW Differential 42.7, Plt Count 154, MPV 11.5, Immature Gran % (Auto) 0.300, Neut % (Auto) 73.2 H, Lymph % (Auto) 13.6 L, [place] % (Auto) 11.4 H, Eos % (Auto) 1.1, Baso % (Auto) 0.4, Absolute Neuts (auto) 7.3, Total Counted Not Reportable 10/18/18 20:50: Sodium Cancelled, Potassium Cancelled, Chloride Cancelled, Carbon Dioxide Cancelled, Anion Gap Cancelled, BUN Cancelled, Creatinine Cancelled, Est GFR (MDRD) Af Amer Cancelled, Est GFR (MDRD) Non-Af Cancelled, BUN/Creatinine Ratio Cancelled, Glucose Cancelled, Calcium Cancelled, Troponin I Cancelled 10/18/18 21:50: Sodium 140, Potassium 4.8, Chloride 108 H, Carbon Dioxide 25.0, Anion Gap 7, BUN 27 H, Creatinine 1.48 H, Est GFR (MDRD) Af Amer 59 L, Est GFR (MDRD) Non-Af 49 L, BUN/Creatinine Ratio 18.2, Glucose 134 H, Calcium 9.0, Troponin I 0.554 H 10/19/18 01:10: PT 13.8, INR 1.1 10/19/18 01:10: Troponin I 0.948 H* 10/19/18 04:24: Hemoglobin A1c 6.2 10/19/18 04:24: WBC 7.8, RBC 4.86, Hgb 14.7, Hct 44.5, MCV 91.6, MCH 30.2, MCHC 33.0, RDW 12.9, RDW Differential 42.7, Plt Count 151, MPV 11.0 10/19/18 04:24: Sodium 142, Potassium 4.6, Chloride 109 H, Carbon Dioxide 24.0, Anion Gap 9, BUN 26 H, Creatinine 1.18, Est GFR (MDRD) Af Amer 77, Est GFR (MDRD) Non-Af 64, BUN/Creatinine Ratio 22.0 H, Glucose 121 H, Calcium 8.7, Total Bilirubin 0.70, Triglycerides 168, Cholesterol 149, LDL Cholesterol 76, VLDL Cholesterol 34, HDL Cholesterol 39 L 03/02/19 04:24: Troponin I 1.410 H* Rhythm: EKG: Normal sinus rhythm with nonspecific ST-T wave changes Assessment/Plan 1. Non-ST elevation myocardial infarction * Patient presents with shortness of breath and mild confusion. His EKG changes are unremarkable but his cardiac enzymes are suggestive of a non-ST elevation myocardial infarction. This is probably a manifestation of his angina. My recommendation at this time would be to start him on a beta-tata * Continue aspirin * Load with clopidogrel * Consider cardiac catheterization on Sunday. The risk benefits alternatives have been explained to him and he does understand. * An echocardiogram should be performed to assess his left ventricular function. * 2. Shortness of breath * The above likely secondary to angina. Would however recommend that we obtain an echocardiogram * 3. Hypertension * We will continue current blood pressure medications. * 4. Lipid status * Lipid status appears to be decent but will also start a statin. * * Thank you for allowing me to participate in the care of your patient. Please don't hesitate to call if any issues arise
--- NOTE | 2018-10-19 11:00 | CT_ITS ---
STUDY: CTA CHEST/THORAX REASON FOR EXAM: Male, 78 years old. Shortness of breath. RADIATION DOSAGE (If Supplied By Facility): CTDIvol = ( 16.72 ) mGy, DLP = ( 670.58 ) mGycm TECHNIQUE: The examination was performed with the intravenous administration of Isovue 370 100 IV. Post-processing of the angiographic images was performed, with multiplanar reformation and 3D reconstruction. Individualized dose optimization techniques were used for this CT. COMPARISON: Portable AP upright chest x-ray October 18, 2018 FINDINGS: Normal enhancement of the main pulmonary artery and right and left pulmonary arteries. Normal enhancement of the bilateral peripheral pulmonary arteries. There is no demonstrated pulmonary embolism. There are calcifications at the aortic valve leaflets. There is atherosclerotic calcification of the aortic arch and descending thoracic aorta. There is no demonstrated aortic dissection. There is cardiomegaly. There is calcification of the mitral valve annulus. There are calcifications of the coronary arteries. Normal mediastinum. Normal hilar regions. Normal visualized trachea and bronchi. The lungs are under expanded and there is crowding. Irregular subsegmental density of atelectasis or scarring seen in the posterolateral basilar left lower lobe. Normal pleura. The thyroid gland appears mildly lobulated and heterogeneous with occasional coarse calcifications. There are diffuse degenerative changes of thoracic spine. There is minor anterior wedging of the T7-T9 vertebra and an exaggerated mid dorsal kyphosis and there is also a mild thoracic S-shaped scoliosis. Normal visualized upper abdomen. CT/CTA Chest W/WO Contrast IMPRESSION: 1. No demonstrated pulmonary embolism or arterial dissection. 2. The lungs are underexpanded, and there is crowding. Irregular subsegmental atelectasis or scarring also seen in the posterolateral basilar left lower lobe. 3. The heart is enlarged. There is calcification of the mitral valve annulus and aortic valve leaflets. Atherosclerotic vascular calcifications are also present. 4. Mildly lobulated and heterogeneous thyroid gland with occasional coarse calcifications. 5. Diffuse degenerative changes of the spine. Minor anterior wedging T7-T9 with exaggerated dorsal kyphosis. A mild thoracic S-shaped scoliosis also present. Electronically Signed: Kamran Zavala MD at 8:28 EST , Service support ,
[2018-10-19] MEDS: Clopidogrel Bisulfate 300 MG Tablet PO (12:05)
--- NOTE | 2018-10-19 13:04 | CASEMGMT ---
LOKESH BILL assessment: Face to Face with patient for initial transition planning/care coordination assessment. LOKESH BILL introduced self and role at [facility], pt voices understanding and consents to assessment at this time. Pt is sitting up in chair in no distress at this time. Pt is A/Ox4 at this time and answers questions appropriately at this time. Care providers, pharmacy, and demographics verified at this time. PCP: Cheryl Specialists: Pt states currently has no specialists at this time. Preferred Pharmacy: [facility] Insurance: [facility] Prescription Benefit: Yes Living Will/HPOA: Pt states does not have LW/HPOA but is interested in info at this time. Pt states that him and his meet with nanny babysitter in a couple weeks to complete a will but would like the info to start looking over. LNOK: Francisca Milligan, Living Arrangements: Pt states lives with in 1 story home and states no concerns at home at this time. Pt states does take flight stairs to basement for computer and states no concerns. Pt states is normally independent with ADL's. Transportation: Pt states drives self and states no transportation concerns at this time. DME/HHC: Pt states has w/c and crutches but does not currently use. Pt states no hx of HHC or SNF in the past. Pt states no concerns with going home at time of discharge. Pt states is retired. Pt states does not smoke or drink ETOH. Pt states no further concerns/needs at this time. CM to follow for any further discharge planning/needs. Advised pt to ask for CM if any further questions/concerns/needs arise, voices understanding. Plan: [place] LOKESH BILL
--- NOTE | 2018-10-19 13:57 | CASEMGMT ---
Social Work PCU Received notice from LOKESH BILL that patient is interested in advanced directive information only. Presented to patient's room, 2 visitors present. Patient reports to be meeting with insurance defense attorney soon to complete a will, so may just go ahead and completed advanced directives at that time. Patient accepted copies of living will, power of insurance defense attorney for health care and question and answer book about advanced directives. No questions identified at this time. Educated patient that if patient would like to come back to the hospital at a later date, social workers remain available to help individuals in advanced directive complete. Patient expressed appreciation. No other services requested. -LEAH Valle
[2018-10-19] MEDS: 0.9% NaCl Peripheral Flush Adult/Peds IV (22:19)
[2018-10-19] MEDS: Atorvastatin Calcium 20 MG Tablet PO (22:20)
[2018-10-20] VITALS (12 sets, daily range): BP systolic 102–151; BP diastolic 54–66; PULSE 58–73; RESP 16–18; TEMP 36.5–37.1; O2SAT 93–98; BMI 43.1
--- NOTE | 2018-10-20 08:30 | MRI_ITS ---
STUDY: MRI BRAIN WITHOUT CONTRAST REASON FOR EXAM: Male, 78 years old. Expressive aphasia. Possible TIA. TECHNIQUE: Standardized multiplanar fat and water weighted pulse sequences were obtained. COMPARISON: CT head 10/19/2018. MRI brain without contrast 02/25/2011. FINDINGS: No restricted diffusion to suspect acute or subacute ischemic infarct. Normal size of the ventricles and extra-axial spaces for the patient's age. T2 FLAIR hyperintensity foci in the white matter of both cerebral hemispheres are chronic white matter ischemic changes. No midline shift and no mass effects. Normal bilateral basal ganglia. Normal thalami. There is no extra-axial fluid accumulation. Normal flow voids within the major intracranial circulation suggesting patency by spin echo criteria. Normal sella turcica, pituitary gland, infundibular stalk, optic chiasm and hypothalamus. Normal tectal plate and pineal gland. Normal midbrain, anoop and medulla. 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 Normal basal cisterns. Normal bilateral temporal bones. Normal bilateral internal auditory canals. No demonstrated orbital abnormality, within the constraints of a routine brain study. Normal visualized paranasal sinuses. Normal calvarium and skull base. Normal visualized soft tissue structures. Normal visualized upper cervical spine. MRI/Brain without Contrast IMPRESSION: 1. No MRI evidence of acute or subacute ischemic infarct. 2. Chronic white matter ischemic changes in both cerebral hemispheres. 3. 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 Electronically Signed: Erick Ro MD at 10:11 EST , Service support ,
[2018-10-20] MEDS: Aspirin E.C. 81 MG Tablet PO (10:10)
[2018-10-20] MEDS: Carvedilol 3.125 MG TABLET PO ×2 (10:10→22:46)
[2018-10-20] MEDS: Clopidogrel Bisulfate 75 MG Tablet PO (10:12)
--- NOTE | 2018-10-20 11:17 | PN.CARD_ITS ---
Subjectve: Patient seen and evaluated. Appears to be doing well with no cardiac issues. Objective: Vital Signs Temp Pulse Resp BP Pulse Ox 97.7 F L 67 16 122/60 H 98 10/20/18 10:00 10/20/18 10:00 10/20/18 10:00 10/20/18 10:00 10/20/18 10:00 Oxygen Delivery Method Room Air Weight: 309 lb 4.937 oz Body Mass Index (BMI) 43.1 Finger Stick Blood Glucose 139 Intake and Output for Last 24 Hours 10/18/18 10/19/18 10/20/18 23:59 23:59 23:59 Intake Total 456 / 456 100 / 100 Output Total 0 / 0 Balance 456 / 456 100 / 100 General: Awake, Alert, Oriented x 3 HEENT: PERRL, EOMI, Sclera Non Icteric Neck: Supple, Good ROM, No Lymph Node Enlargement Lungs: Clear to auscultation Cardiovascular: Regular Rhythm, Normal S1, Normal S2, No Murmurs, No Rubs, No G allops Vascular: No Carotid Bruits, Normal Femoral Pulses, Normal Radial Pulses, Normal Dorsalis Pedal Pulse, Normal Posterior Tibial Pulses Abdomen: Bowel Sounds Present, Soft, Non Tender, No HSM, No Organomegaly Extremities: No Cyanosis, No Clubbing, No edema Musculoskeletal: No Erythema Skin: No Rashes, No Ulcers Lymphatic: No Lymph Node Enlargement Neurological: No Focal Motor or Sensory Deficit Psych/Mental Status: Appropriate Rhythm: EKG: ECHO: Stress Test: Cardiac Cath: PCI: CT Surgery: Holter monitor: EPS: PPM: CXR: Chest CT Scan: Medical Necessity - Tobacco Use Smoking Status: Former smoker Assessment/Plan 1. Non-ST elevation myocardial infarction * Patient presents with shortness of breath and mild confusion. His EKG changes are unremarkable but his cardiac enzymes are suggestive of a non-ST elevation myocardial infarction. This is probably a manifestation of his angina. My recommendation at this time would be to start him on a beta-tata * Continue aspirin * Load with clopidogrel * Consider cardiac catheterization on Sunday. The risk benefits alternatives have been explained to him and he does understand. * An echocardiogram should be performed to assess his left ventricular function and it demonstrated overall preserved left ventricular systolic function. * 2. Shortness of breath * The above likely secondary to angina. Echo demonstrated overall preserved left ventricular systolic function. Poor images were noted. * 3. Hypertension * We will continue current blood pressure medications. * 4. Lipid status * Lipid status appears to be decent but will also start a statin. * * Thank you for allowing me to participate in the care of your patient. Please don't hesitate to call if any issues arise
--- NOTE | 2018-10-20 14:06 | PN_ITS ---
Subjective: Patient is feeling better. No shortness of breath at rest but gets short of breath on walking and exertion. MRI brain did not show acute infarct. NIH stroke scale follow-up discontinued. Seen by news agent. Cardiac cath on Sunday. Vitals/I&O's: Vital Signs Temp Pulse Resp BP Pulse Ox 97.7 F L 70 16 122/60 H 98 10/20/18 10:00 10/20/18 11:00 10/20/18 10:00 10/20/18 10:00 10/20/18 10:00 Oxygen Delivery Method Room Air Weight: 309 lb 4.937 oz Body Mass Index (BMI) 43.1 Finger Stick Blood Glucose 139 Intake and Output for Last 24 Hours 10/18/18 10/19/18 10/20/18 23:59 23:59 23:59 Intake Total 456 / 456 100 / 100 Output Total 0 / 0 Balance 456 / 456 100 / 100 General: Alert, Oriented x3, Cooperative HEENT: Atraumatic, PERRLA, EOMI, Normocephalic Neck: Supple, No JVD, Negative Carotid Bruits Lungs: Clear to auscultation, No rhonchi, No wheeze, No rales, Diminished Cardiovascular: Regular rate, Regular Rhythm, Normal S1, Normal S2, No murmurs, Murmur Abdomen: Bowel Sounds Present, Soft, Non Tender, Non-Distended Extremities: Capillary Refill Less than 3 Seconds, Edema Skin: No rashes, No breakdown Musculoskeletal: No Tenderness to Palpation of Joints or Extremities, Arthritic Changes, Muscle Wasting Neurological: Cranial nerves II-XII grossly intact Psych/Mental Status: Normal Affect, Appropriate Current Medications Acetaminophen (Tylenol) 650 mg PO Q6H PRN PRN PRN Reason: Fever, headache, pain Aspirin (Ecotrin) 81 mg PO DAILY [facility] Last Admin: 10/20/18 10:10 Dose: 81 mg Atorvastatin Calcium (Lipitor) 20 mg PO QHS [facility] Last Admin: 10/19/18 22:20 Dose: 20 mg Carvedilol (Coreg) 3.125 mg PO BID [facility] Last Admin: 10/20/18 10:10 Dose: 3.125 mg Clopidogrel Bisulfate (Plavix) 75 mg PO DAILY [facility] Last Admin: 10/20/18 10:12 Dose: 75 mg Sodium Chloride () 1,000 mls @ 0 mls/hr IV .Q0M SANJIV Magnesium Hydroxide (Milk Of Magnesia) 30 ml PO DAILY PRN PRN Reason: Constipation Ondansetron HCl (Zofran) 4 mg IV Q6H PRN PRN PRN Reason: NAUSEA/VOMITING Sodium Chloride () 5 - 15 ml IV UD PRN PRN Reason: SALINE FLUSH Last Admin: 10/19/18 22:19 Dose: 10 ml Medical Necessity - Tobacco Use Smoking Status: Former smoker Assessment/Plan This is a 78 years old male patient presented to the emergency room because of multiple complaints including reported confusion, difficulty finding words and more than 3 months of history of exertional shortness of breath, found to have borderline elevated troponin, cardiomegaly and widened mediastinum on chest x- ray and he is being admitted for evaluation. #1 NSTEMI: Patient had shortness of breath and high troponin. EKG revealed sinus rhythm, nonspecific ST-T wave changes and no evidence of acute ischemic changes. Chest x-ray revealed mild congestion, cardiomegaly. The patient is being admitted on PCU. Continue medical management including aspirin, Coreg, statin. HCTZ and lisinopril is on hold because of kidney failure and patient had CT scan with contrast on 10/19/2018. Plan for heart cath on Sunday. #2 transient confusion/expressive aphasia, exact etiology unclear possible TIA: Resolved. At this time, patient is alert and oriented x3, no slurred speech. No focal deficit on physical exam. CT brain does not show acute change. MRI brain does not show acute or subacute ischemic infarct. #3 Wide mediastinum ruled out: Chest x-ray reviewed. CT angiogram was done on 10/19/2018 and reviewed. Shows crowding of ribs with atelectasis and scarring in posterolateral segment of left lower lobe. Also degenerative changes including aortic valve leaflet calcification and atherosclerotic vascular calcification. No wide mediastinum Compared to chest x-ray from 2011, mediastinum looked more white with cardiomegaly. #4 renal insufficiency: Admission creatinine is 1.48, unknown baseline creatinine. Plan: IV fluids, input output chart, repeat BMP tomorrow morning, hold HCTZ and lisinopril. #5 hypertension: Blood pressure stable, hold HCTZ and lisinopril, start Coreg. #6 hyperlipidemia: Continue statins. #7 DVT prophylaxis: SCDs. Clinical Impression(s) from Imaging Studies Chest X-Ray 10/18/18 21:09 IMPRESSION: No acute cardiopulmonary process. Brain CT 10/19/18 00:05 IMPRESSION: 1. No evidence of an acute intracranial abnormality. 2. Mild bilateral periventricular and subcortical white matter chronic small vessel disease with age appropriate cerebral atrophy. Chest CTA 10/19/18 11:00 IMPRESSION: 1. No demonstrated pulmonary embolism or arterial dissection. 2. The lungs are underexpanded, and there is crowding. Irregular subsegmental atelectasis or scarring also seen in the posterolateral basilar left lower lobe. 3. The heart is enlarged. There is calcification of the mitral valve annulus and aortic valve leaflets. Atherosclerotic vascular calcifications are also present. 4. Mildly lobulated and heterogeneous thyroid gland with occasional coarse calcifications. 5. Diffuse degenerative changes of the spine. Minor anterior wedging T7-T9 with exaggerated dorsal kyphosis. A mild thoracic S-shaped scoliosis also present. Code Visit Inpatient E&M: 57871 Subs Hosp L3
[2018-10-20 21:20] LABS: Bacteria 0 SEEN /hpf (None Seen); Mucous, Urine 0 SEEN /hpf (<or=2+); Red Blood Cells-Urine 0 SEEN /hpf (0-5); Squamous Epithelial Cells - UA 0 SEEN /hpf (0-5); White Blood Cells 0 SEEN /hpf (0-5)
[2018-10-20 21:30] LABS: Color, Urine Yellow (Yellow); Glucose, Dipstick Normal (Normal); Ketone-Dipstick Negative (Negative); Leukocyte Esterase-Dipstick Negative /ul (Negative); Nitrite-Dipstick Negative (Negative); Occult Blood-Urine Negative /ul (Negative); Protein-Dipstick Negative (Negative); Urine Bilirubin Dipstick Negative (Negative); Urine Clarity Clear (Clear); Urine Urobilinogen Normal (Normal)
[2018-10-20] MEDS: Atorvastatin Calcium 20 MG Tablet PO (22:46)
[2018-10-21] VITALS (22 sets, daily range): BP systolic 110–131; BP diastolic 51–75; PULSE 59–75; RESP 15–21; TEMP 36.5–36.7; O2SAT 93–98
[2018-10-21] MEDS: 0.9% NaCl Peripheral Flush Adult/Peds IV (02:03)
[2018-10-21 05:40] LABS: Absolute Lymphocyte Count 1.14 X10^3/ul (0.83-4.51); Absolute Neutrophil Count 6.5 X10^3/uL (2.0-7.7); Basophil# 0.03 X10^3/uL; Basophil% 0.3 % (0-1); Eosinophil# 0.22 X10^3/uL; Eosinophils% 2.4 % (0-5); Hematocrit 46.7 % (40-54); Hemoglobin 15.3 g/dl (13.0-16.5); Lymphocyte # 1.14 X10^3/ul (4.0); Lymphocyte % 12.5 % (19-41); Mean Corp Hgb Conc 32.8 g/gl (32-36); Mean Corpuscular Hgb 30.3 pg (27.0-32.0); Mean Corpuscular Volume 92.5 fL (80-94); Mean Platelet Vol. 10.8 fl (6.2-12.0); Monocyte# 1.15 X10^3/uL; Monocyte% 12.6 % (0-10); Neutrophil # 6.54 X10^3/uL (2.7-7.7); Platelet Count 137 K/mm3 (150-450); RBC Distribution Width CV 12.7 % (11.6-14.6); RBC Distribution Width SD 42.6 fl (35.1-43.9); Red Blood Count 5.05 M/mm3 (4.6-6.2); White Blood Count 9.1 K/mm3 (4.4-11.0)
[2018-10-21 05:49] LABS: POSITIVE COUNT NO; POSITIVE DIFFERENTIAL NO; POSITIVE MORPHOLOGY NO
--- NOTE | 2018-10-21 05:55 | EKG12_ITS ---
Test Reason : AM Blood Pressure : / mmHG Vent. Rate : 065 BPM Atrial Rate : 065 BPM P-R Int : 208 ms QRS Dur : 088 ms QT Int : 464 ms P-R-T Axes : 050 026 102 degrees QTc Int : 482 ms Normal sinus rhythm Nonspecific ST and T wave abnormality Prolonged QT Abnormal ECG When compared with ECG of 19-OCT-2018 05:23, MANUAL COMPARISON REQUIRED, DATA IS UNCONFIRMED Confirmed by CORINA SANDS, CARLA ([id number]), television news video editor MC DUGAN ([id number]) on 10/22/2018 1:09:14 PM Referred By: Sanket Browning Confirmed By:CARLA ARRIAGA MD
[2018-10-21 06:05] LABS: Anion Gap 12 (5-15); BUN 24 mg/dL (7-18); BUN/Creat Ratio 20.7 RATIO (10-20); Calcium,Total 8.5 mg/dL (8.5-10.1); Chloride 109 mmol/L (98-107); Creatinine, Serum 1.16 mg/dL (0.70-1.30); EST Glomerular Filtration Rate 65 mL/min (>60); Est Glom Filt Rate - Afr Amer 78 mL/min (>60); Glucose 119 mg/dL (74-106); Sodium Level 142 mmol/L (136-145)
[2018-10-21 06:23] LABS: International Normalized Ratio 1.1; Partial Thromboplast Time 29.7 Seconds (24.1-36.2); Prothrombin Time (Protime)PT. 14.2 SECONDS (11.7-14.9)
[2018-10-21] MEDS: Carvedilol 3.125 MG TABLET PO ×2 (06:28→22:36)
[2018-10-21] MEDS: Clopidogrel Bisulfate 75 MG Tablet PO (06:29)
[2018-10-21] MEDS: Aspirin E.C. 81 MG Tablet PO (06:29)
--- NOTE | 2018-10-21 07:48 | PCM.PN.HOSP ---
Subjective: Patient was seen and examined. He had a cardiac cath today. Denies chest pain, dizziness, SOB Vitals/I&O's: Vital Signs Temp Pulse Resp BP Pulse Ox 97.7 F L 70 16 123/58 H 95 10/21/18 06:23 10/21/18 06:23 10/21/18 06:23 10/21/18 06:23 10/21/18 06:23 Oxygen Delivery Method Room Air Weight: 140.3 kg Body Mass Index (BMI) 43.1 Finger Stick Blood Glucose 139 Intake and Output for Last 24 Hours 10/19/18 10/20/18 10/21/18 23:59 23:59 23:59 Intake Total 456 / 456 340 / 340 90 / 90 Output Total 200 / 200 Balance 456 / 456 140 / 140 90 / 90 General: Alert, Oriented x3, Cooperative, No apparent distress - obese HEENT: Atraumatic, PERRLA, EOMI, Normocephalic Oral: Moist Mucosa Neck: Supple Lungs: Clear to auscultation, Normal air movement, Diminished - at the lung bases Cardiovascular: Regular rate, Regular Rhythm, Normal S1, Normal S2, No murmurs Abdomen: Bowel Sounds Present, Soft, Non Tender, Non-Distended, No Hepato-splenomegaly Extremities: No edema, - - right groin cardiac cath site is soft, dressing intact, no hematoma Skin: No rashes, No breakdown Musculoskeletal: No Tenderness to Palpation of Joints or Extremities Neurological: Cranial nerves II-XII grossly intact Psych/Mental Status: Normal Affect, Appropriate Laboratory Results 10/20/18 21:15: Urine Color Yellow, Urine Clarity Clear, Urine pH 6.0, Ur Specific [place] 1.020, Urine Protein Negative, Urine Glucose (UA) Normal, Urine Ketones Negative, Urine Occult Blood Negative, Urine Nitrite Negative, Urine Bilirubin Negative, Urine Urobilinogen Normal, Ur Leukocyte Esterase Negative, Urine RBC 0 SEEN, Urine WBC 0 SEEN, Ur Squamous Epith Cells 0 SEEN, Urine Bacteria 0 SEEN, Urine Mucus 0 SEEN 10/21/18 05:28: WBC 9.1, RBC 5.05, Hgb 15.3, Hct 46.7, MCV 92.5, MCH 30.3, MCHC 32.8, RDW 12.7, RDW Differential 42.6, Plt Count 137 L, MPV 10.8, Immature Gran % (Auto) 0.200, Neut % (Auto) 72.0 H, Lymph % (Auto) 12.5 L, [place] % (Auto) 12.6 H, Eos % (Auto) 2.4, Baso % (Auto) 0.3, Absolute Neuts (auto) 6.5, Absolute Lymphs (auto) 1.14, Total Counted Not Reportable 10/21/18 05:28: Sodium 142, Potassium 4.0, Chloride 109 H, Carbon Dioxide 21.0, Anion Gap 12, BUN 24 H, Creatinine 1.16, Estim Creat Clear Calc 56.80, Est GFR (MDRD) Af Amer 78, Est GFR (MDRD) Non-Af 65, BUN/Creatinine Ratio 20.7 H, Glucose 119 H, Calcium 8.5 10/21/18 05:28: PT 14.2, INR 1.1, APTT 29.7 Current Medications Acetaminophen (Tylenol) 650 mg PO Q6H PRN PRN PRN Reason: Fever, headache, pain Aspirin (Ecotrin) 81 mg PO DAILY [facility] Last Admin: 10/21/18 06:29 Dose: 81 mg Atorvastatin Calcium (Lipitor) 20 mg PO QHS [facility] Last Admin: 10/20/18 22:46 Dose: 20 mg Carvedilol (Coreg) 3.125 mg PO BID [facility] Last Admin: 10/21/18 06:28 Dose: 3.125 mg Clopidogrel Bisulfate (Plavix) 75 mg PO DAILY [facility] Last Admin: 10/21/18 06:29 Dose: 75 mg Sodium Chloride () 1,000 mls @ 0 mls/hr IV .Q0M [facility] OF [facility] Magnesium Hydroxide (Milk Of Magnesia) 30 ml PO DAILY PRN PRN Reason: Constipation Ondansetron HCl (Zofran) 4 mg IV Q6H PRN PRN PRN Reason: NAUSEA/VOMITING Sodium Chloride () 5 - 15 ml IV UD PRN PRN Reason: SALINE FLUSH Last Admin: 10/21/18 02:03 Dose: 10 ml Medical Necessity - Tobacco Use Smoking Status: Former smoker Assessment/Plan All Active Problems (Last Updated 10/21/18 @ 13:26 by Sharlene Calvin) Non-ST elevation (NSTEMI) myocardial infarction (Acute 10/19/18) Dyspnea (Acute) 78 years old male patient admitted with complaints including reported confusion, difficulty finding words and more than 3 months of history of exertional shortness of breath, found to have borderline elevated troponin and cardiomegaly. 1. NSTEMI s/p cardiac cath, findings include the following: left main coronary artery with distal 50% stenosis, LAD with diffuse long 70% stenosis. Left circumflex artery with mild coronary artery disease, dominant right coronary artery with no high-grade stenosis. on aspirin, Coreg, statin, cardiology following. 2. Valvular heart disease, severe aortic stenosis, aortic valve area of 0.88, going for KOKI tomorrow, will follow 3. Transient confusion/expressive aphasia, exact etiology unclear, possible TIA, resolved. CT brain as well as MRI brain is negative. 4. Hypertension, controlled, continue on coreg. HCTZ and Lisinopril on hold 5. CKD stage 3, Cr is improved, will continue to monitor 6. Hyperlipidemia, on statins 7. DVT PPx- SCDS - patient got anticoagulated today for procedure; will start on Heparin from tomorrow 8. Disposition: Possible DC in 24-48 hours Code Visit Inpatient E&M: 40464 Subs Hosp L2
[2018-10-21] MEDS: 0.9% Normal Saline 1,000 ML 75 ML IV (08:00)
--- NOTE | 2018-10-21 09:25 | PN.CARD_ITS ---
Subjectve: Patient seen and evaluated. Underwent cardiac catheterization today Objective: Vital Signs Temp Pulse Resp BP Pulse Ox 97.7 F L 59 L 16 123/58 H 95 10/21/18 06:23 10/21/18 07:00 10/21/18 06:23 10/21/18 06:23 10/21/18 08:00 Oxygen Delivery Method Room Air Weight: 309 lb 4.937 oz Body Mass Index (BMI) 43.1 Finger Stick Blood Glucose 139 Intake and Output for Last 24 Hours 10/19/18 10/20/18 10/21/18 23:59 23:59 23:59 Intake Total 456 / 456 340 / 340 90 / 90 Output Total 200 / 200 Balance 456 / 456 140 / 140 90 / 90 General: Awake, Alert, Oriented x 3 HEENT: PERRL, EOMI, Sclera Non Icteric Neck: Supple, Good ROM, No Lymph Node Enlargement Lungs: Clear to auscultation Cardiovascular: Regular Rhythm, Normal S1, Normal S2, No Murmurs, No Rubs, No Gallops Murmur Murmur: Grade 3/6, Early Systolic, LLSB Vascular: No Carotid Bruits, Normal Femoral Pulses, Normal Radial Pulses, Normal Dorsalis Pedal Pulse, Normal Posterior Tibial Pulses Abdomen: Bowel Sounds Present, Soft, Non Tender, No HSM, No Organomegaly Extremities: No Cyanosis, No Clubbing, No edema Neurological: No Focal Motor or Sensory Deficit 10/20/18 21:15: Urine Color Yellow, Urine Clarity Clear, Urine pH 6.0, Ur Sp ecific [place] 1.020, Urine Protein Negative, Urine Glucose (UA) Normal, Urine Ketones Negative, Urine Occult Blood Negative, Urine Nitrite Negative, Urine Bilirubin Negative, Urine Urobilinogen Normal, Ur Leukocyte Esterase Negative, Urine RBC 0 SEEN, Urine WBC 0 SEEN 10/21/18 05:28: WBC 9.1, RBC 5.05, Hgb 15.3, Hct 46.7, MCV 92.5, MCH 30.3, MCHC 32.8, RDW 12.7, RDW Differential 42.6, Plt Count 137 L, MPV 10.8, Immature Gran % (Auto) 0.200, Neut % (Auto) 72.0 H, Lymph % (Auto) 12.5 L, [place] % (Auto) 12.6 H, Eos % (Auto) 2.4, Baso % (Auto) 0.3, Absolute Neuts (auto) 6.5, Total Counted Not Reportable 10/21/18 05:28: Sodium 142, Potassium 4.0, Chloride 109 H, Carbon Dioxide 21.0, Anion Gap 12, BUN 24 H, Creatinine 1.16, Est GFR (MDRD) Af Amer 78, Est GFR (MDRD) Non-Af 65, BUN/Creatinine Ratio 20.7 H, Glucose 119 H, Calcium 8.5 10/21/18 05:28: PT 14.2, INR 1.1, APTT 29.7 Rhythm: EKG: ECHO: Stress Test: Cardiac Cath: PCI: CT Surgery: Holter monitor: EPS: PPM: CXR: Chest CT Scan: Medical Necessity - Tobacco Use Smoking Status: Former smoker Assessment/Plan 1. Non-ST elevation myocardial infarction * Patient presents with shortness of breath and mild confusion. His EKG changes are unremarkable but his cardiac enzymes are suggestive of a non-ST elevation myocardial infarction. This is probably a manifestation of his angina. My recommendation at this time would be to start him on a beta-tata * Continue aspirin * Load with clopidogrel * Cardiac catheterization demonstrated the following: Left main coronary artery with distal 50% stenosis. Left anterior descending artery with diffuse long 70% stenosis. Left circumflex artery with mild coronary artery disease. Dominant right coronary artery with no high-grade stenosis. Preserved ejection fraction. 2. Shortness of breath * The above likely secondary to angina. Echo demonstrated overall preserved left ventricular systolic function. Poor images were noted. * 3. Hypertension * We will continue current blood pressure medications. * 4. Lipid status * Lipid status appears to be decent but will also start a statin. * * 5. Valvular heart disease * Patient is noted to have severe aortic stenosis by echocardiographic evalua tion * Would recommend transesophageal echocardiogram in a.m. to further characterize the above. * * Due to all the above I would recommend consideration for coronary artery bypass graft surgery as well as aortic valve surgery. * Thank you for allowing me to participate in the care of your patient. Please don't hesitate to call if any issues arise
--- NOTE | 2018-10-21 09:33 | CL.D_ITS ---
Patient Name: HARRISON ESTRADA Study Date: 10/21/2018 Performing: Rustam Kebede MD Ht: 70.86 inches 180 cm : 1940 Wt: 308.65 lbs 140 kg Age: 78 Gender: male BSA: 2.53 PROCEDURE(S) PERFORMED [id number]-JNM/COR CLINICAL PROFILE AND INDICATIONS Indications: Suspected CAD, Valvular Disease Heart Failure: None Stress/Imaging Stress/Image Study Performed: No CONCLUSIONS Left main coronary artery disease and diffuse left anterior descending artery disease. RECOMMENDATIONS Surgery consult for valvular disease Surgery consult for coronary revascularization DESCRIPTION OF PROCEDURE The patient arrived to the procedure lab. The risks and benefits of the procedure as well as a full d escription of our services here and current unavailability of surgical backup were fully explained to the patient and/or their significant other prior to the catheterization. The Timeout was completed, verifying the correct patient and procedure. The patient's procedural site was prepped and draped in the usual fashion. Local anesthetic was given subcutaneously to right radial region with Lidocaine 2% . Local anesthetic was given subcutaneously to right groin region with Lidocaine 2%. Using a modified Seldinger technique, arterial access was obtained via the right radial artery, a 6Fr sheath was inse rted., arterial access was obtained via the right femoral artery, a 5Fr sheath was inserted. Left Co ronary Artery selective angiography was performed in multiple views using a 5 [address] catheter.[address] was injected through the sheath and the Right Iliac and Femoral artery were assessed for possible closure device.The femoral arterial sheath was pulled and a Mynx closure device was depl oyed for hemostasis. The radial arterial sheath was pulled and a TR Band was applied for hemostasis CORONARY ANGIOGRAPHY DOMINANCE: Right Dominant LEFT HEART ASSESSMENT Left Ventricular Ejection Fraction: by Echo 60 % Normal LV wall motion Normal Left Ventricular systolic function LEFT MAIN: 50 % calcification, 50 % Stenosis LEFT ANTERIOR DECENDING ARTERY: long 70 % Stenosis DISTAL LAD: Mild luminal irregularities CIRCUMFLEX ARTERY: Mild luminal irregularities less than 30% RIGHT CORONARY ARTERY: Mild luminal irregularities VALVE FINDINGS: Aortic Valve Calcification - severe COMPLICATIONS No Complications PROCEDURE MEDICATIONS Versed 1 mg IV Fentanyl 50 mcg IV Oxygen: 2 L/min via nasal cannula Atropine 1mg/10ml 0.5 amp 10/21/2018 08:57:59 Atropine 1mg/10ml 0.5 amp @ 10/21/2018 08:57:59 Heparin diluted in 23cc Heparinized saline. Patient given 10cc IA of this solution. 10/21/2018 08:31:0 2 Verapamil 2.5mg, Ntg 100mcgs, 2000 units of Heparin diluted in 23cc Heparinized saline. Patient give n 10cc IA of this solution. 10/21/2018 08:31:02 SUMMARY OF HEMODYNAMIC DATA Time AIR REST ECG 08:17:33 AO 99/47 (68) SA 08:33:50 AO 80/49 (59) 09:00:53 AO 108/61 (81) 09:08:40 Signed By Rustam Kebede MD On 10/21/2018 09:32:40 Rustam Kebede MD
--- NOTE | 2018-10-21 09:55 | NURSING ---
pt return from cath 944. right groin and right wrist intact
[2018-10-21] MEDS: Atorvastatin Calcium 20 MG Tablet PO (22:36)
[2018-10-22] VITALS (13 sets, daily range): BP systolic 103–123; BP diastolic 42–59; PULSE 60–73; RESP 15–22; TEMP 36.6–37; O2SAT 93–97; BMI 43.2
[2018-10-22] MEDS: 0.9% NaCl Peripheral Flush Adult/Peds IV (06:40)
--- NOTE | 2018-10-22 07:01 | NURSING ---
Report called to Christina in ECHO at this time. She states pt can come down at 07:30 or 07:40 for his KOKI.
--- NOTE | 2018-10-22 08:00 | ECHOTEE_ITS ---
Reason For Study: Murmur Medication KOKI probe passed without difficulty. No complications were noted. Cetacaine Topical [place] given X3 orally. Versed 2 mg given slow IVP. Fentanyl 50 mcg given slow IVP. Performed a rapid injection of agitated mix of 9 cc saline and 1cc air to assess for atrial septal defect. Left Ventricle Normal LV size. The estimated ejection fraction is 50 %. No regional wall motion abnormalities noted. There is mild global hypokinesis of the left ventricle. Right Ventricle Normal RV size. Normal systolic function. Atria Intact atrial septum. The left atrium is moderately enlarged. Normal right atrium. Mitral Valve There is mild to moderate mitral annular calcification. Mild focal mitral valve calcification of the posterior leaflet. Mild-Moderate (1-2+) eccentric mitral valve insufficiency. Tricuspid Valve Normal tricuspid valve. Aortic Valve Trisinus/trileaflet aortic valve. Severe focal aortic valve calcification. Moderate aortic stenosis. Severe (4+) aortic valve insufficiency. Pulmonic Valve Normal pulmonic valve. Vessels Mildly dilated aortic root. Normal arch. The pulmonary artery is normal size. Normal pulmonary veins. Pericardium No pericardial effusion. Interpretation Summary Normal LV size. The estimated ejection fraction is 50 %. There is mild global hypokinesis of the left ventricle. Severe focal aortic valve calcification. Moderate aortic stenosis. Severe (4+) aortic valve insufficiency. Ordering Physician: Rustam Kebede Referring Physician: Sanket Browning Performed By: Nabila Simon, [place]
--- NOTE | 2018-10-22 08:44 | PCM.PN.CARD ---
Subjectve: Patient seen and evaluated. Appears to be doing well. Underwent transesophageal echocardiogram today Objective: Vital Signs Temp Pulse Resp BP Pulse Ox 98.6 F 69 17 113/42 L 93 10/22/18 06:30 10/22/18 06:30 10/22/18 06:30 10/22/18 06:30 10/22/18 06:30 Oxygen Flow Rate (L/min) 2 Oxygen Delivery Method Room Air Weight: 309 lb 4.937 oz Body Mass Index (BMI) 43.2 Finger Stick Blood Glucose 139 Intake and Output for Last 24 Hours 10/20/18 10/21/18 10/22/18 23:59 23:59 23:59 Intake Total 340 / 340 1450 / 1450 0 / 0 Output Total 200 / 200 200 / 200 Balance 140 / 140 1250 / 1250 0 / 0 General: Awake, Alert, Oriented x 3 HEENT: PERRL, EOMI, Sclera Non Icteric Neck: Supple, Good ROM, No Lymph Node Enlargement Lungs: Clear to auscultation Cardiovascular: Regular Rhythm, Normal S1, Normal S2, No Rubs, No Gallops Murmur Murmur: Grade 3/6, Early Systolic, LLSB Vascular: No Carotid Bruits, Normal Femoral Pulses, Normal Radial Pulses, Normal Dorsalis Pedal Pulse, Normal Posterior Tibial Pulses Abdomen: Bowel Sounds Present, Soft, Non Tender, No HSM, No Organomegaly Extremities: No Cyanosis, No Clubbing, No edema Neurological: No Focal Motor or Sensory Deficit Psych/Mental Status: Appropriate Rhythm: EKG: ECHO: Stress Test: Cardiac Cath: PCI: CT Surgery: Holter monitor: EPS: PPM: CXR: Chest CT Scan: Medical Necessity - Tobacco Use Smoking Status: Former smoker Assessment/Plan 1. Non-ST elevation myocardial infarction Patient presents with shortness of breath and mild confusion. His EKG changes are unremarkable but his cardiac enzymes are suggestive of a non-ST elevation myocardial infarction. This is probably a manifestation of his angina. My recommendation at this time would be to start him on a beta-tata Continue aspirin Load with clopidogrel Cardiac catheterization demonstrated the following: Left main coronary artery with distal 50% stenosis. Left anterior descending artery with diffuse long 70% stenosis. Left circumflex artery with mild coronary artery disease. Dominant right coronary artery with no high-grade stenosis. Preserved ejection fraction. 2. Shortness of breath The above likely secondary to angina. Echo demonstrated overall preserved left ventricular systolic function. Poor images were noted. 3. Hypertension We will continue current blood pressure medications. 4. Lipid status Lipid status appears to be decent but will also start a statin. 5. Valvular heart disease Patient is noted to have severe aortic stenosis by echocardiographic evaluation Transesophageal echocardiogram done this morning demonstrates severe aortic stenosis as well as severe aortic regurgitation with a very calcified aortic valve. There is mild mitral calcification and mild mitral regurgitation. Ejection fraction is noted to be borderline. Due to all the above I would recommend consideration for coronary artery bypass graft surgery as well as aortic valve surgery. Arrangements will be made for transfer to the appropriate tertiary institution. Thank you for allowing me to participate in the care of your patient. Please don't hesitate to call if any issues arise
--- NOTE | 2018-10-22 08:47 | PN.CARD_ITS ---
Subjectve: Patient seen and evaluated. Appears to be doing well. Underwent transesophageal echocardiogram today Objective: Vital Signs Temp Pulse Resp BP Pulse Ox 98.6 F 69 17 113/42 L 93 10/22/18 06:30 10/22/18 06:30 10/22/18 06:30 10/22/18 06:30 10/22/18 06:30 Oxygen Flow Rate (L/min) 2 Oxygen Delivery Method Room Air Weight: 309 lb 4.937 oz Body Mass Index (BMI) 43.2 Finger Stick Blood Glucose 139 Intake and Output for Last 24 Hours 10/20/18 10/21/18 10/22/18 23:59 23:59 23:59 Intake Total 340 / 340 1450 / 1450 0 / 0 Output Total 200 / 200 200 / 200 Balance 140 / 140 1250 / 1250 0 / 0 General: Awake, Alert, Oriented x 3 HEENT: PERRL, EOMI, Sclera Non Icteric Neck: Supple, Good ROM, No Lymph Node Enlargement Lungs: Clear to auscultation Cardiovascular: Regular Rhythm, Normal S1, Normal S2, No Rubs, No Gallops Murmur Murmur: Grade 3/6, Early Systolic, LLSB Vascular: No Carotid Bruits, Normal Femoral Pulses, Normal Radial Pulses, Normal Dorsalis Pedal Pulse, Normal Posterior Tibial Pulses Abdomen: Bowel Sounds Present, Soft, Non Tender, No HSM, No Organomegaly Extremities: No Cyanosis, No Clubbing, No edema Neurological: No Focal Motor or Sensory Deficit Psych/Mental Status: Appropriate Rhythm: EKG: ECHO: Stress Test: Cardiac Cath: PCI: CT Surgery: Holter monitor: EPS: PPM: CXR: Chest CT Scan: Medical Necessity - Tobacco Use Smoking Status: Former smoker Assessment/Plan 1. Non-ST elevation myocardial infarction * Patient presents with shortness of breath and mild confusion. His EKG changes are unremarkable but his cardiac enzymes are suggestive of a non-ST elevation myocardial infarction. This is probably a manifestation of his angina. My recommendation at this time would be to start him on a beta-tata * Continue aspirin * Load with clopidogrel * Cardiac catheterization demonstrated the following: Left main coronary artery with distal 50% stenosis. Left anterior descending artery with diffuse long 70% stenosis. Left circumflex artery with mild coronary artery disease. Dominant right coronary artery with no high-grade stenosis. Preserved ejection fraction. 2. Shortness of breath * The above likely secondary to angina. Echo demonstrated overall preserved left ventricular systolic function. Poor images were noted. * 3. Hypertension * We will continue current blood pressure medications. * 4. Lipid status * Lipid status appears to be decent but will also start a statin. * * 5. Valvular heart disease * Patient is noted to have severe aortic stenosis by echocardiographic evaluation * Transesophageal echocardiogram done this morning demonstrates severe aortic stenosis as well as severe aortic regurgitation with a very calcified aortic valve. There is mild mitral calcification and mild mitral regurgitation. Ejection fraction is noted to be borderline. * Due to all the above I would recommend consideration for coronary artery bypass graft surgery as well as aortic valve surgery. * * Arrangements will be made for transfer to the appropriate tertiary institution. * Thank you for allowing me to participate in the care of your patient. Please don't hesitate to call if any issues arise
[2018-10-22] MEDS: Aspirin E.C. 81 MG Tablet PO (12:02)
[2018-10-22] MEDS: Carvedilol 3.125 MG TABLET PO (12:03)
--- NOTE | 2018-10-22 12:23 | PCM.PN.HOSP ---
Subjective: Patient was seen and examined. He had KOKI done today; findings per cardiology note showed severe aortic stenosis as well as severe aortic regurg dictation with very calcified aortic valve, mild mitral calcification as well as mild mitral regurgitation. Per cardiology, patient will be transferred to an acute care hospital for coronary artery bypass graft surgery as well as aortic valve surgery consideration Denied any chest pain or dizziness or shortness of breath. Objective: Physical exam: General: Alert, Oriented x3, Cooperative, No apparent distress - obese HEENT: Atraumatic, PERRLA, EOMI, Normocephalic Oral: Moist Mucosa Neck: Supple Lungs: Clear to auscultation, Normal air movement, Diminished - at the lung bases Cardiovascular: Regular rate, Regular Rhythm, Normal S1, Normal S2, No murmurs Abdomen: Bowel Sounds Present, Soft, Non Tender, Non-Distended, No Hepato-splenomegaly Extremities: No edema, - - right groin cardiac cath site is soft, dressing intact, no hematoma Skin: No rashes, No breakdown Musculoskeletal: No Tenderness to Palpation of Joints or Extremities Neurological: Cranial nerves II-XII grossly intact Psych/Mental Status: Normal Affect, Appropriate Vitals/I&O's: Vital Signs Temp Pulse Resp BP Pulse Ox 98 F 66 16 119/59 L 97 10/22/18 09:40 10/22/18 09:40 10/22/18 09:40 10/22/18 09:40 10/22/18 11:25 Oxygen Flow Rate (L/min) 2 Oxygen Delivery Method Room Air Weight: 140.3 kg Body Mass Index (BMI) 43.2 Finger Stick Blood Glucose 139 Intake and Output for Last 24 Hours 10/20/18 10/21/18 10/22/18 23:59 23:59 23:59 Intake Total 340 / 340 1450 / 1450 500 / 500 Output Total 200 / 200 200 / 200 Balance 140 / 140 1250 / 1250 500 / 500 Current Medications Acetaminophen (Tylenol) 650 mg PO Q6H PRN PRN PRN Reason: Fever, headache, pain Aspirin (Ecotrin) 81 mg PO DAILY [facility] Last Admin: 10/22/18 12:02 Dose: 81 mg Atorvastatin Calcium (Lipitor) 20 mg PO QHS [facility] Last Admin: 10/21/18 22:36 Dose: 20 mg Carvedilol (Coreg) 3.125 mg PO BID [facility] Last Admin: 10/22/18 12:03 Dose: 3.125 mg Heparin Sodium (Beef Lung) (Heparin 500 Unit/5 Ml (100/Ml)) 500 unit IV UD PRN PRN Reason: HEPARIN FLUSH Sodium Chloride () 1,000 mls @ 0 mls/hr IV .Q0M [facility] Labetalol HCl (Trandate) 5 mg IV X1 PRN PRN Reason: SBP >160 PRIOR TO SHEATH PULL Magnesium Hydroxide (Milk Of Magnesia) 30 ml PO DAILY PRN PRN Reason: Constipation Ondansetron HCl (Zofran) 4 mg IV Q6H PRN PRN PRN Reason: NAUSEA/VOMITING Sodium Chloride () 5 - 15 ml IV UD PRN PRN Reason: SALINE FLUSH Last Admin: 10/22/18 06:40 Dose: 10 ml Medical Necessity - Tobacco Use Smoking Status: Former smoker Assessment/Plan All Active Problems (Last Updated 10/21/18 @ 13:26 by Sharlene Calvin) Non-ST elevation (NSTEMI) myocardial infarction (Acute 10/19/18) Dyspnea (Acute) 78 years old male patient admitted with complaints including reported confusion, difficulty finding words and more than 3 months of history of exertional shortness of breath, found to have borderline elevated troponin and cardiomegaly. 1. NSTEMI s/p cardiac cath, findings include the following: left main coronary artery with distal 50% stenosis, LAD with diffuse long 70% stenosis. Left circumflex artery with mild coronary artery disease, dominant right coronary artery with no high-grade stenosis. on aspirin, Coreg, statin, cardiology following. Recommendation is to have coronary artery bypass graft surgery 2. Valvular heart disease, severe aortic stenosis, aortic valve area of 0.88, this was KOKI today 10/22/18, findings show severe aortic valve stenosis as well as regurgitation with calcification of the aortic valve, patient needs assessment for aortic valve replacement 3. Transient confusion/expressive aphasia, exact etiology unclear, possible TIA, resolved. CT brain as well as MRI brain is negative. 4. Hypertension, controlled, continue on coreg. HCTZ and Lisinopril on hold 5. CKD stage 3, Cr is improved, will continue to monitor 6. Hyperlipidemia, on statins 7. DVT PPx- SCDS 8. Disposition: We will await cardiology recommendation for discharge to an acute care hospital. Code Visit Inpatient E&M: 49188 Subs Hosp L2
--- NOTE | 2018-10-22 12:27 | PN_ITS ---
Subjective: Patient was seen and examined. He had KOKI done today; findings per cardiology note showed severe aortic stenosis as well as severe aortic regurg dictation with very calcified aortic valve, mild mitral calcification as well as mild mitral regurgitation. Per cardiology, patient will be transferred to an acute care hospital for coronary artery bypass graft surgery as well as aortic valve surgery consideration Denied any chest pain or dizziness or shortness of breath. Objective: Physical exam: General: Alert, Oriented x3, Cooperative, No apparent distress - obese HEENT: Atraumatic, PERRLA, EOMI, Normocephalic Oral: Moist Mucosa Neck: Supple Lungs: Clear to auscultation, Normal air movement, Diminished - at the lung bases Cardiovascular: Regular rate, Regular Rhythm, Normal S1, Normal S2, No murmurs Abdomen: Bowel Sounds Present, Soft, Non Tender, Non-Distended, No Hepato- splenomegaly Extremities: No edema, - - right groin cardiac cath site is soft, dressing intact, no hematoma Skin: No rashes, No breakdown Musculoskeletal: No Tenderness to Palpation of Joints or Extremities Neurological: Cranial nerves II-XII grossly intact Psych/Mental Status: Normal Affect, Appropriate Vitals/I&O's: Vital Signs Temp Pulse Resp BP Pulse Ox 98 F 66 16 119/59 L 97 10/22/18 09:40 10/22/18 09:40 10/22/18 09:40 10/22/18 09:40 10/22/18 11:25 Oxygen Flow Rate (L/min) 2 Oxygen Delivery Method Room Air Weight: 140.3 kg Body Mass Index (BMI) 43.2 Finger Stick Blood Glucose 139 Intake and Output for Last 24 Hours 10/20/18 10/21/18 10/22/18 23:59 23:59 23:59 Intake Total 340 / 340 1450 / 1450 500 / 500 Output Total 200 / 200 200 / 200 Balance 140 / 140 1250 / 1250 500 / 500 Current Medications Acetaminophen (Tylenol) 650 mg PO Q6H PRN PRN PRN Reason: Fever, headache, pain Aspirin (Ecotrin) 81 mg PO DAILY [facility] Last Admin: 10/22/18 12:02 Dose: 81 mg Atorvastatin Calcium (Lipitor) 20 mg PO QHS [facility] Last Admin: 10/21/18 22:36 Dose: 20 mg Carvedilol (Coreg) 3.125 mg PO BID [facility] Last Admin: 10/22/18 12:03 Dose: 3.125 mg Heparin Sodium (Beef Lung) (Heparin 500 Unit/5 Ml (100/Ml)) 500 unit IV UD PRN PRN Reason: HEPARIN FLUSH Sodium Chloride () 1,000 mls @ 0 mls/hr IV .Q0M [facility] Labetalol HCl (Trandate) 5 mg IV X1 PRN PRN Reason: SBP >160 PRIOR TO SHEATH PULL Magnesium Hydroxide (Milk Of Magnesia) 30 ml PO DAILY PRN PRN Reason: Constipation Ondansetron HCl (Zofran) 4 mg IV Q6H PRN PRN PRN Reason: NAUSEA/VOMITING Sodium Chloride () 5 - 15 ml IV UD PRN PRN Reason: SALINE FLUSH Last Admin: 10/22/18 06:40 Dose: 10 ml Medical Necessity - Tobacco Use Smoking Status: Former smoker Assessment/Plan All Active Problems (Last Updated 10/21/18 @ 13:26 by Sharlene Calvin) Non-ST elevation (NSTEMI) myocardial infarction (Acute 10/19/18) Dyspnea (Acute) 78 years old male patient admitted with complaints including reported confusion, difficulty finding words and more than 3 months of history of exertional shortness of breath, found to have borderline elevated troponin and cardiomegaly. 1. NSTEMI s/p cardiac cath, findings include the following: left main coronary artery with distal 50% stenosis, LAD with diffuse long 70% stenosis. Left circumflex artery with mild coronary artery disease, dominant right coronary artery with no high-grade stenosis. on aspirin, Coreg, statin, cardiology following. Recommendation is to have coronary artery bypass graft surgery 2. Valvular heart disease, severe aortic stenosis, aortic valve area of 0.88, this was KOKI today 10/22/18, findings show severe aortic valve stenosis as well as regurgitation with calcification of the aortic valve, patient needs assessment for aortic valve replacement 3. Transient confusion/expressive aphasia, exact etiology unclear, possible TIA, resolved. CT brain as well as MRI brain is negative. 4. Hypertension, controlled, continue on coreg. HCTZ and Lisinopril on hold 5. CKD stage 3, Cr is improved, will continue to monitor 6. Hyperlipidemia, on statins 7. DVT PPx- SCDS 8. Disposition: We will await cardiology recommendation for discharge to an acute care hospital. Code Visit Inpatient E&M: 05358 Subs Hosp L2
--- NOTE | 2018-10-22 13:41 | DCINST_ITS ---
- Discharge Diagnoses Reason(s) for Visit for Discharge Instructions: Shortness of breath You will use the following diet at home:: Cardiac Your food should be the consistency of: Regular Your liquids should be the consistency of: Regular/Thin Discharge Activity: Return to Normal Activity Allergies/Adverse Reactions: Allergies No Known Allergies Allergy (Verified 10/18/18 20:37) Medications to take at Discharge Aspirin [Aspir 81] 81 mg PO DAILY 10/18/18 Multivitamin with Minerals [Multiple Vitamin] 1 tab PO DAILY 10/18/18 Atorvastatin Calcium [Lipitor] 20 mg PO QHS tablet 10/22/18 Carvedilol [Coreg (Beta Whit)] 3.125 mg PO BID tablet 10/22/18 Primary Care Physician: Sanju Luna MD [Primary Care Provider] - Test Results: Test results from this visit will be discussed in further detail at your follow- up appointment, if applicable. Proposed Discharge Date: 10/22/18
--- NOTE | 2018-10-22 13:42 | DS.PCM_ITS ---
Discharge Date and Diagnosis Date of Admission: 10/18/18 Date of Discharge: 10/22/18 - Primary Discharge Diagnosis NSTEMI Valvular heart disease, aortic stenosis - Secondary Discharge Diagnosis Chronic Problems (Last Updated 10/21/18 @ 13:26 by Sharlene Calvin) Non-rheumatic aortic stenosis (Chronic) Atherosclerosis of coronary artery without angina pectoris (Chronic) Hyperlipidemia (Chronic) Benign essential hypertension (Chronic) Hospital Course and Treatment Imaging Results: 10/22/18 08:00 Echo Transesophageal (KOKI) [ECHO] Routine Cardiology Operations: None Procedures: 2-D Echocardiogram, Cardiac catheterization Summary of Care Provided: 78 years old male admitted with complaints including reported confusion, diffic ulty finding words and more than 3 months of history of exertional shortness of breath, found to have borderline elevated troponin and cardiomegaly. 1. NSTEMI s/p cardiac cath, findings include the following: left main coronary artery with distal 50% stenosis, LAD with diffuse long 70% stenosis. Left circumflex artery with mild coronary artery disease, dominant right coronary artery with no high-grade stenosis. On aspirin, Coreg, statin. Cardiology following. Patient was referred to a tertiary center for CABG and aortic valve replacement evaluation. 2. Valvular heart disease, severe aortic stenosis, aortic valve area of 0.88, s/p KOKI 3. Transient confusion/expressive aphasia, exact etiology unclear, possible TIA, resolved. CT brain as well as MRI brain is negative. 4. Hypertension, controlled, on coreg, HCTZ and Lisinopril on hold during the admission. Subjective: See progress note on the day of discharge. Objective: See progress note onthe day of discharge. - Physical Exam Vital Signs Temp Pulse Resp BP Pulse Ox 98 F 73 16 119/59 L 97 10/22/18 09:40 10/22/18 12:58 10/22/18 09:40 10/22/18 09:40 10/22/18 11:25 Oxygen Flow Rate (L/min) 2 Oxygen Delivery Method Room Air Weight: 140.3 kg Body Mass Index (BMI) 43.2 Finger Stick Blood Glucose 139 Intake and Output for Last 24 Hours 10/20/18 10/21/18 10/22/18 23:59 23:59 23:59 Intake Total 340 / 340 1450 / 1450 500 / 500 Output Total 200 / 200 200 / 200 Balance 140 / 140 1250 / 1250 500 / 500 Discharge Diet: Low fat/ Low Cholesterol, 2000 mg Sodium Diet Discharge Activity: Return to Normal Activity Home Medications: Medications to take at Discharge Aspirin [Aspir 81] 81 mg PO DAILY 10/18/18 Multivitamin with Minerals [Multiple Vitamin] 1 tab PO DAILY 10/18/18 Atorvastatin Calcium [Lipitor] 20 mg PO QHS tablet 10/22/18 Carvedilol [Coreg (Beta Whit)] 3.125 mg PO BID tablet 10/22/18 Primary Care Physician: Sanju Luna MD [Primary Care Provider] - Disposition: Acute care Hospital Minutes spent on discharge:: 40 Patient Condition:: Stable Medical Necessity - Tobacco Use Smoking Status: Former smoker Tobacco Use: Non-smoker Meaningful Use Info Meaningful Use Diagnoses (Choose all that apply): AMI - AMI Aspirin given w/in 24hrs of arrival?: Yes ASA at discharge?: Yes Statins at discharge?: Yes Lee/ARB at discharge?: Yes Beta Whit at discharge?: Yes Done w/ Acute CT measure.: Yes Code Visit Inpatient E&M: 15367 Disch Hosp
--- NOTE | 2018-10-22 15:33 | NURSING ---
Report called to [facility] Margaret Adams [phone] room [id number]
== END 2018-10-22 17:07 | disposition short-term general hospital (02) | DRG 281 ==
LOC: ED 21:19 → PCU 23:43
PROVIDERS: Internal Medicine; Internal Medicine Cardiovascular Disease; Admitting Provider Hospitalist; Emergency Provider Emergency Medicine; Family Provider Family Medicine; PCP Family Medicine; Referring Provider Hospitalist; Visit Provider Internal Medicine
DX: I21.4 Non-ST elevation (NSTEMI) myocardial infarction (principal); Z68.41 Body mass index [BMI] 40.0-44.9, adult; G45.9 Transient cerebral ischemic attack, unspecified; R47.01 Aphasia; E78.5 Hyperlipidemia, unspecified; I25.10 Atherosclerotic heart disease of native coronary artery without angina pectoris; I12.9 Hypertensive chronic kidney disease with stage 1 through stage 4 chronic kidney disease, or unspecified chronic kidney disease; N18.3 Chronic kidney disease, stage 3 (moderate); I35.0 Nonrheumatic aortic (valve) stenosis; E66.01 Morbid (severe) obesity due to excess calories; R41.0 Disorientation, unspecified; H90.3 Sensorineural hearing loss, bilateral; Z79.899 Other long term (current) drug therapy; Z87.891 Personal history of nicotine dependence
CPT/HCPCS: 36415; 70450; 70551; 71045; 71275; 80048; 80053; 80061; 81001; 82962; 83036; 84484; 85025; 85027; 85610; 85730; 93005; 93306; 93312; 93320; 93325; 93458; 93880; 97161; 97165; 99152; 99153; 99283; C1760; J7030; J7040; Q9957; Q9967; A4216; C1769; C1894; C8929

== ENCOUNTER → 2018-11-29 10:50 | Outpatient (CLI) | payer MEDICARE, OTHER, SELFPAY ==
[2018-11-29 09:48] VITALS: BMI 41.5
--- NOTE | 2018-11-29 10:55 | VDLE_ITS ---
Reason For Study: LEG PAIN RIGHT LEFT CFV is compressible, spontaneous, phasic, CFV is compressible, spontaneous, phasic, competent and demonstrates normal competent, and demonstrates normal augmentation. augmentation. Procedure FV is compressible, spontaneous, phasic, Exam performed in department. competent and demonstrates normal ASV mislabeled as SSV. augmentation. A preliminary report was called and/or faxed POP V is compressible, spontaneous, phasic, to Renard Jasso. competent and demonstrates normal augmentation. T/P Trunk is compressible. PTV is compressible. LT PerV is compressible. GSV harvested ASV in thigh is dilated and non-compressible. Interpretation Summary There is no evidence of left lower extremity deep vein thrombosis. Superficial thrombophlebitis left small saphenous vein. Harvested left great saphenous vein Normal flow patterns right common femoral vein. Ordering Physician: Reanna Jasso Referring Physician: MD Sanket Luna Performed By: Christy Islas RVT
== END ==
PROVIDERS: Family Provider Family Medicine; PCP Family Medicine; Referring Provider Physician Assistant Medical; Visit Provider Physician Assistant Medical
DX: R60.0 Localized edema (principal)
CPT/HCPCS: 93971

== ENCOUNTER → 2018-12-06 11:36 | Outpatient (CLI) | payer MEDICARE, OTHER, SELFPAY ==
[2018-12-06 10:30] VITALS: BMI 40.7
[2018-12-06 13:01] LABS: Anion Gap 7 (5-15); BUN 26 mg/dL (7-18); Chloride 102 mmol/L (98-107); EST Glomerular Filtration Rate 57 mL/min (>60); Est Glom Filt Rate - Afr Amer 69 mL/min (>60); Glucose 102 mg/dL (74-106); Potassium 3.7 mmol/L (3.5-5.1); Sodium Level 140 mmol/L (136-145)
== END ==
PROVIDERS: Family Provider Family Medicine; PCP Family Medicine; Referring Provider Physician Assistant Medical; Visit Provider Physician Assistant Medical
DX: I25.10 Atherosclerotic heart disease of native coronary artery without angina pectoris (principal); Z95.3 Presence of xenogenic heart valve; I97.89 Other postprocedural complications and disorders of the circulatory system, not elsewhere classified; I48.91 Unspecified atrial fibrillation; I10 Essential (primary) hypertension; E78.2 Mixed hyperlipidemia; R60.9 Edema, unspecified
CPT/HCPCS: 36415; 80048

== ENCOUNTER 2018-12-13 09:30 | Outpatient (RCR) | payer MEDICARE, OTHER, SELFPAY ==
[2018-12-06 10:30] VITALS: BMI 40.7
[2018-12-11 09:31] VITALS: BP 132/63; PULSE 67; RESP 20; TEMP 35.5; BMI 40.3
--- NOTE | 2018-12-11 11:42 | PCM.WC.HP ---
(1) Ulcer of left lower extremity with fat layer exposed Status: Acute Current Visit: Yes Code(s): L97.922 - Non-pressure chronic ulcer of unspecified part of left lower leg with fat layer exposed (2) Left leg cellulitis Status: Chronic Current Visit: Yes Code(s): L03.116 - Cellulitis of left lower limb (3) Venous insufficiency of left leg Status: Chronic Current Visit: Yes Code(s): I87.2 - Venous insufficiency (chronic) (peripheral) (4) S/P coronary artery bypass graft x 3 Status: Resolved Current Visit: No Code(s): Z95.1 - Presence of aortocoronary bypass graft Comment: QUEEN to LAD. SVG to diagonal branch, and SVG to OM 10/29/18 @ [facility] 10/29/18 History of Present Illness Chief Complaint: Non healing left lower extremity ulcer and swelling. History of Wound: Mr Milligan is here due jeannette non healing left lower extremity ulcers and persistent swelling/ concern for cellulitis. 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 He however has had ongoing swelling and subsequent ulceration of his left lower extremity. He has been on Keflex twice due to concern for Cellulitis but they have noted no significant improvement. He denies chills, fever or other aragon feeling of unwell. 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 Trifecta pericardial prosthesis [facility] 10/29/18 Non-rheumatic aortic stenosis (Chronic) Atherosclerosis of coronary artery without angina pectoris (Chronic) Benign essential hypertension (Chronic) Surgical History: tonsillectomy Allergies/Adverse Reactions: Allergies No Known Allergies Allergy (Verified 12/06/18 10:33) Home Medications: Ambulatory Orders Medication Instructions Recorded Multivitamin with Minerals 1 tab PO DAILY 10/18/18 [Multiple Vitamin] albuterol sulfate HFA 90 2 puff INHALATION Q6H PRN 11/08/18 mcg/actuation aerosol inhaler clopidogrel 75 mg tablet 75 mg PO DAILY 11/08/18 metformin 500 mg tablet 500 mg PO DAILY tab 11/08/18 potassium chloride ER 20 mEq 20 meq PO BID 11/08/18 tablet,extended release simvastatin 40 mg tablet 40 mg PO QHS 11/08/18 tamsulosin 0.4 mg capsule 0.4 mg PO DAILY 11/08/18 cephalexin 500 mg capsule 500 mg PO BID #20 cap 11/29/18 metoprolol tartrate 50 mg tablet 50 mg PO BID tab 11/29/18 magnesium oxide 400 mg capsule 400 mg PO BID #60 cap 12/02/18 warfarin 5 mg tablet 10 mg PO DAILY #60 tab 12/02/18 bumetanide 1 mg tablet See Rx Instructions PO .COMPLEX 30 12/06/18 Days tab - Family History Maternal No pertinent history Paternal No pertinent history Smoking Status: Never smoker Review of Systems Constitutional: Denies: Anorexia, Chills, Fever Eyes: Denies: Blurred vision, Pain HEENT: Reports: Difficulty Hearing. Denies: Difficulty Swallowing Cardiovascular: Denies: Chest Pain, Chest Pressure Respiratory: Denies: Hemoptysis Gastrointestinal: Denies: Abdominal Pain, Hematemesis, Vomiting Skin: Reports: Jaundice - Physical Exam Vital Signs Temp Pulse Resp BP 96 F L 67 20 H 132/63 H 12/11/18 09:31 12/11/18 09:31 12/11/18 09:31 12/11/18 09:31 General: Alert, Oriented x3, Cooperative, No apparent distress HEENT: Atraumatic, Normocephalic Oral: Moist Mucosa Neck: Supple Lungs: Normal air movement Cardiovascular: Regular rate, Regular Rhythm, Normal S1, Normal S2 Abdomen: Non Tender, Obese Extremities: No cyanosis, Edema Skin: Ulcer/ Wound Wound Measurements and Assessment WC - Nurse 1 - General Ulcer Measurement Start: 12/11/18 08:43 Freq: Status: Active Protocol: Activity Type Activity Date Activity User E-Sign Co-Sign Detail Recorded Client Recorded Date Recorded By Document 12/11/18 09:31 DL [id number] 12/11/18 09:45 DL 12/11/18 09:31 Wound Center Nurse 1 [Ulcer Assessment] #1 L [place] -Current Size (cm) - Length 0.4 -Current Size (cm) - Width 0.4 -Current Size (cm) - Depth 0.1 -Total Square Cm 0.16 -Photo Taken Yes -Exudate Amt None Present -Wound Margin Flat & Intact -Granulation Amt Small (1-33%) -Granulation Quality [place] -Necrosis Amt Small (1-33%) -Necrotic Tissue Type Adherent Slough -Structure Exposed N/A -Texture (Sue-wound Skin Appearance) Localized Edema Scarring -Moisture (Sue-wound Skin Appearance Weeping ) -Color (Sue-wound Skin Appearance) Erythema Hemosiderin Staining -Temperature (Sue-wound Skin No Abnormality Appearance) (Pt Warm) -Tenderness on Palpation (Sue-wound No Skin Appearance) -Ulcer Cleansing Wound Cleanser -Foul Odor after Cleansing No -Anesthetic Used 4% Lidocaine Solution [Edema Assessment] -Right Calf (cm) 42.8 -Right Ankle (cm) 26 -Left Calf (cm) 44 -Left Ankle (cm) 26 WC - Nurse 2 - General Ulcer CM Notes Start: 12/11/18 08:43 Freq: Status: Active Protocol: Activity Type Activity Date Activity User E-Sign Co-Sign Detail Recorded Client Recorded Date Recorded By Document 12/11/18 10:29 MW [id number] 12/11/18 10:33 MW 12/11/18 10:29 Wound Center Nurse 2 [Procedure/Treatment] #1 L [place] -Time 10:30 -Correct Patient Yes -Correct Side, Site, Position Yes -Correct Procedure Yes -Procedure Performed Yes -Type of Procedure Debridement -Clinical Debridement Subcutaneous -Post Debridement Size (cm) - Length 6.0 -Post Debridement Size (cm) - Width 3.0 -Post Debridement Size (cm) - Depth 0.1 -Total Square Cm 18.00 -Wound/Ulcer Outcome Not Healed -Ulcer Cleansing Rinsed/ Irrigated with Saline -Foul Odor after Cleansing No -Bioengineered Tissue No -Bleeding Controlled with Pressure -Offloading No -Treatment Response Procedure Tolerated Well [See Physician Procedure note for Specifics] Pain Scale: 0-10 Numeric [Pain] -Is Patient Pain Free? Yes Musculoskeletal: No Muscle Wasting Neurological: Cranial nerves II-XII grossly intact Psych/Mental Status: Normal Affect Debridement Note Post-Debridement Measurements/Treatment WC - Nurse 2 - General Ulcer CM Notes Start: 12/11/18 08:43 Freq: Status: Active Protocol: Activity Type Activity Date Activity User E-Sign Co-Sign Detail Recorded Client Recorded Date Recorded By Document 12/11/18 10:29 MW [id number] 12/11/18 10:33 MW 12/11/18 10:29 Wound Center Nurse 2 #1 L [place] -Time 10:30 -Correct Patient Yes -Correct Side, Site, Position Yes -Correct Procedure Yes -Procedure Performed Yes -Type of Procedure Debridement -Clinical Debridement Subcutaneous -Post Debridement Size (cm) - Length 6.0 -Post Debridement Size (cm) - Width 3.0 -Post Debridement Size (cm) - Depth 0.1 -Total Square Cm 18.00 -Wound/Ulcer Outcome Not Healed -Ulcer Cleansing Rinsed/ Irrigated with Saline -Foul Odor after Cleansing No -Bioengineered Tissue No -Bleeding Controlled with Pressure -Offloading No -Treatment Response Procedure Tolerated Well Pain Scale: 0-10 Numeric Is Patient Pain Free? Yes Wound debrided: Left lower extremity cluster Wound Grade/Stage: Stage II Type of Debridement: Excisional debridement Anesthesia Used: 4% Lidocaine Solution Depth: Down to and including healthy tissue, in the subcutaneous layer Percentage of wound debrided: 100 Instrument Used: 5mm curette Tissue Removed: slough and devitalized tissue Severity: Fat Layer Exposed Amount of bleeding with debridement: Mild Bleeding Controlled with: Pressure Patient tolerated procedure well Assessment/Plan Active Problems (Last Updated 11/08/18 @ 16:25 by Reanna Rodriguez) Ulcer of left lower extremity with fat layer exposed (Acute) Left leg cellulitis (Chronic) Venous insufficiency of left leg (Chronic) Assessment: Same as above. Plan: Debridement done as documenetd above, procedure was well tolerated. Differential warmth, erythema and swelling noted. Possible cellulitis however since he has been on 2 courses of antibiotics without any improvement, culture was taken after debridement. For now, Mya with adaptic over top. 3M waps for edema management. Follow up on sunday for nurse visit. Elevate lower extremities when seated and in bed. Exercise as tolerated and avoid idle standing. Increased protein intake recommended. All their questions were answered and they were advised to call with any questions or concerns.
--- NOTE | 2018-12-11 11:47 | HP.PCM_ITS ---
(1) Ulcer of left lower extremity with fat layer exposed Status: Acute Current Visit: Yes Code(s): L97.922 - Non-pressure chronic ulcer of unspecified part of left lower leg with fat layer exposed (2) Left leg cellulitis Status: Chronic Current Visit: Yes Code(s): L03.116 - Cellulitis of left lower limb (3) Venous insufficiency of left leg Status: Chronic Current Visit: Yes Code(s): I87.2 - Venous insufficiency (chronic) (peripheral) (4) S/P coronary artery bypass graft x 3 Status: Resolved Current Visit: No Code(s): Z95.1 - Presence of aortocoronary bypass graft Comment: QUEEN to LAD. SVG to diagonal branch, and SVG to OM 10/29/18 @ [facility] 10/29/18 History of Present Illness Chief Complaint: Non healing left lower extremity ulcer and swelling. History of Wound: Mr Milligan is here due jeannette non healing left lower extremity ulcers and persistent swelling/ concern for cellulitis. 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 He however has had ongoing swelling and subsequent ulceration of his left lower extremity. He has been on Keflex twice due to concern for Cellulitis but they have noted no significant improvement. He denies chills, fever or other aragon feeling of unwell. 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 [facility] Trifecta pericardial prosthesis [facility] 10/29/18 Non-rheumatic aortic stenosis (Chronic) Atherosclerosis of coronary artery without angina pectoris (Chronic) Benign essential hypertension (Chronic) Surgical History: tonsillectomy Allergies/Adverse Reactions: Allergies No Known Allergies Allergy (Verified 12/06/18 10:33) Home Medications: Ambulatory Orders Medication Instructions Recorded Multivitamin with Minerals 1 tab PO DAILY 10/18/18 [Multiple Vitamin] albuterol sulfate HFA 90 2 puff INHALATION Q6H PRN 11/08/18 mcg/actuation aerosol inhaler clopidogrel 75 mg tablet 75 mg PO DAILY 11/08/18 metformin 500 mg tablet 500 mg PO DAILY tab 11/08/18 potassium chloride ER 20 mEq 20 meq PO BID 11/08/18 tablet,extended release simvastatin 40 mg tablet 40 mg PO QHS 11/08/18 tamsulosin 0.4 mg capsule 0.4 mg PO DAILY 11/08/18 cephalexin 500 mg capsule 500 mg PO BID #20 cap 11/29/18 metoprolol tartrate 50 mg tablet 50 mg PO BID tab 11/29/18 magnesium oxide 400 mg capsule 400 mg PO BID #60 cap 12/02/18 warfarin 5 mg tablet 10 mg PO DAILY #60 tab 12/02/18 bumetanide 1 mg tablet See Rx Instructions PO .COMPLEX 30 12/06/18 Days tab - Family History Maternal No pertinent history Paternal No pertinent history Smoking Status: Never smoker Review of Systems Constitutional: Denies: Anorexia, Chills, Fever Eyes: Denies: Blurred vision, Pain HEENT: Reports: Difficulty Hearing. Denies: Difficulty Swallowing Cardiovascular: Denies: Chest Pain, Chest Pressure Respiratory: Denies: Hemoptysis Gastrointestinal: Denies: Abdominal Pain, Hematemesis, Vomiting Skin: Reports: Jaundice - Physical Exam Vital Signs Temp Pulse Resp BP 96 F L 67 20 H 132/63 H 12/11/18 09:31 12/11/18 09:31 12/11/18 09:31 12/11/18 09:31 General: Alert, Oriented x3, Cooperative, No apparent distress HEENT: Atraumatic, Normocephalic Oral: Moist Mucosa Neck: Supple Lungs: Normal air movement Cardiovascular: Regular rate, Regular Rhythm, Normal S1, Normal S2 Abdomen: Non Tender, Obese Extremities: No cyanosis, Edema Skin: Ulcer/ Wound Wound Measurements and Assessment WC - Nurse 1 - General Ulcer Measurement Start: 12/11/18 08:43 Freq: Status: Active Protocol: Activity Type Activity Date Activity User E-Sign Co-Sign Detail Recorded Client Recorded Date Recorded By Document 12/11/18 09:31 DL [id number] 12/11/18 09:45 DL 12/11/18 09:31 Wound Center Nurse 1 [Ulcer Assessment] #1 L [place] -Current Size (cm) - Length 0.4 -Current Size (cm) - Width 0.4 -Current Size (cm) - Depth 0.1 -Total Square Cm 0.16 -Photo Taken Yes -Exudate Amt None Present -Wound Margin Flat & Intact -Granulation Amt Small (1-33%) -Granulation Quality [place] -Necrosis Amt Small (1-33%) -Necrotic Tissue Type Adherent Slough -Structure Exposed N/A -Texture (Sue-wound Skin Appearance) Localized Edema Scarring -Moisture (Sue-wound Skin Appearance Weeping ) -Color (Sue-wound Skin Appearance) Erythema Hemosiderin Staining -Temperature (Sue-wound Skin No Abnormality Appearance) (Pt Warm) -Tenderness on Palpation (Sue-wound No Skin Appearance) -Ulcer Cleansing Wound Cleanser -Foul Odor after Cleansing No -Anesthetic Used 4% Lidocaine Solution [Edema Assessment] -Right Calf (cm) 42.8 -Right Ankle (cm) 26 -Left Calf (cm) 44 -Left Ankle (cm) 26 WC - Nurse 2 - General Ulcer CM Notes Start: 12/11/18 08:43 Freq: Status: Active Protocol: Activity Type Activity Date Activity User E-Sign Co-Sign Detail Recorded Client Recorded Date Recorded By Document 12/11/18 10:29 MW [id number] 12/11/18 10:33 MW 12/11/18 10:29 Wound Center Nurse 2 [Procedure/Treatment] #1 L [place] -Time 10:30 -Correct Patient Yes -Correct Side, Site, Position Yes -Correct Procedure Yes -Procedure Performed Yes -Type of Procedure Debridement -Clinical Debridement Subcutaneous -Post Debridement Size (cm) - Length 6.0 -Post Debridement Size (cm) - Width 3.0 -Post Debridement Size (cm) - Depth 0.1 -Total Square Cm 18.00 -Wound/Ulcer Outcome Not Healed -Ulcer Cleansing Rinsed/ Irrigated with Saline -Foul Odor after Cleansing No -Bioengineered Tissue No -Bleeding Controlled with Pressure -Offloading No -Treatment Response Procedure Tolerated Well [See Physician Procedure note for Specifics] Pain Scale: 0-10 Numeric [Pain] -Is Patient Pain Free? Yes Musculoskeletal: No Muscle Wasting Neurological: Cranial nerves II-XII grossly intact Psych/Mental Status: Normal Affect Debridement Note Post-Debridement Measurements/Treatment WC - Nurse 2 - General Ulcer CM Notes Start: 12/11/18 08:43 Freq: Status: Active Protocol: Activity Type Activity Date Activity User E-Sign Co-Sign Detail Recorded Client Recorded Date Recorded By Document 12/11/18 10:29 MW [id number] 12/11/18 10:33 MW 12/11/18 10:29 Wound Center Nurse 2 #1 L [place] -Time 10:30 -Correct Patient Yes -Correct Side, Site, Position Yes -Correct Procedure Yes -Procedure Performed Yes -Type of Procedure Debridement -Clinical Debridement Subcutaneous -Post Debridement Size (cm) - Length 6.0 -Post Debridement Size (cm) - Width 3.0 -Post Debridement Size (cm) - Depth 0.1 -Total Square Cm 18.00 -Wound/Ulcer Outcome Not Healed -Ulcer Cleansing Rinsed/ Irrigated with Saline -Foul Odor after Cleansing No -Bioengineered Tissue No -Bleeding Controlled with Pressure -Offloading No -Treatment Response Procedure Tolerated Well Pain Scale: 0-10 Numeric Is Patient Pain Free? Yes Wound debrided: Left lower extremity cluster Wound Grade/Stage: Stage II Type of Debridement: Excisional debridement Anesthesia Used: 4% Lidocaine Solution Depth: Down to and including healthy tissue, in the subcutaneous layer Percentage of wound debrided: 100 Instrument Used: 5mm curette Tissue Removed: slough and devitalized tissue Severity: Fat Layer Exposed Amount of bleeding with debridement: Mild Bleeding Controlled with: Pressure Patient tolerated procedure well Assessment/Plan Active Problems (Last Updated 11/08/18 @ 16:25 by Reanna Rodriguez) Ulcer of left lower extremity with fat layer exposed (Acute) Left leg cellulitis (Chronic) Venous insufficiency of left leg (Chronic) Assessment: Same as above. Plan: Debridement done as documenetd above, procedure was well tolerated. Differential warmth, erythema and swelling noted. Possible cellulitis however since he has been on 2 courses of antibiotics without any improvement, culture was taken after debridement. For now, Mya with adaptic over top. 3M waps for edema management. Follow up on sunday for nurse visit. Elevate lower extremities when seated and in bed. Exercise as tolerated and avoid idle standing. Increased protein intake recommended. All their questions were answered and they were advised to call with any questions or concerns.
[2018-12-13 09:31] VITALS: BP 151/78; PULSE 60; RESP 18; TEMP 36.1; BMI 40.3
== END 2018-12-17 23:59 ==
LOC: WC 09:30
PROVIDERS: Family Provider Family Medicine; PCP Family Medicine; Visit Provider Internal Medicine
DX: E11.622 Type 2 diabetes mellitus with other skin ulcer (principal); I87.2 Venous insufficiency (chronic) (peripheral); L97.822 Non-pressure chronic ulcer of other part of left lower leg with fat layer exposed; L03.116 Cellulitis of left lower limb; Z95.1 Presence of aortocoronary bypass graft; G47.33 Obstructive sleep apnea (adult) (pediatric); Z95.3 Presence of xenogenic heart valve; I25.10 Atherosclerotic heart disease of native coronary artery without angina pectoris; I10 Essential (primary) hypertension; E78.2 Mixed hyperlipidemia; Z79.01 Long term (current) use of anticoagulants; Z79.84 Long term (current) use of oral hypoglycemic drugs; Z79.899 Other long term (current) drug therapy; Z79.02 Long term (current) use of antithrombotics/antiplatelets
CPT/HCPCS: 11042; 29581; 87070; 87075; 87205; 99212; 99213; G0463

== ENCOUNTER 2018-12-26 10:30 | Outpatient (RCR) | payer MEDICARE, OTHER, SELFPAY ==
[2018-12-18 01:54] VITALS: BP 151/78; PULSE 60; RESP 18; TEMP 36.1
[2018-12-19 10:42] VITALS: BP 149/78; PULSE 61; RESP 16; TEMP 36.2; BMI 40.3
--- NOTE | 2018-12-19 11:13 | PCM.WC.PN ---
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 History of Wound: Mr Milligan is here due jeannette non healing left lower extremity ulcers and persistent swelling/ concern for cellulitis. 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 He however has had ongoing swelling and subsequent ulceration of his left lower extremity. He has been on Keflex twice due to concern for Cellulitis but they have noted no significant improvement. He denies chills, fever or other aragon feeling of unwell. Progress of Wound: No new concerns at this time. Tolerated the 3M wrap without concerns. - Physical Exam Vital Signs Temp Pulse Resp BP 97.1 F L 61 16 149/78 H 12/19/18 10:42 12/19/18 10:42 12/19/18 10:42 12/19/18 10:42 General: Alert, Oriented x3, Cooperative, No apparent distress HEENT: Atraumatic, Normocephalic Oral: Moist Mucosa Neck: Supple Lungs: Normal air movement Abdomen: Non Tender, Obese Extremities: No cyanosis, Edema Skin: Ulcer/ Wound Wound Measurements and Assessment WC - Nurse 1 - General Ulcer Measurement Start: 12/19/18 10:42 Freq: Status: Active Protocol: Activity Type Activity Date Activity User E-Sign Co-Sign Detail Recorded Client Recorded Date Recorded By Document 12/19/18 10:42 [facility] [id number] 12/19/18 10:55 [facility] 12/19/18 10:42 Wound Center Nurse 1 [Ulcer Assessment] #1 L [place] -Combined with other wound No -Current Size (cm) - Length 5 -Current Size (cm) - Width 2.4 -Current Size (cm) - Depth 0.1 -Total Square Cm 12.0 -Photo Taken No -Epithelialization None Present -Tunneling No -Undermining/Tunneling No -Circular Undermining No -Exudate Amt Small -Exudate Type Serosanguineous -Wound Margin Flat & Intact -Granulation Amt Medium (34-66%) -Granulation Quality [place] -Slough/Fibrin Yes -Necrosis Amt Small (1-33%) -Necrotic Tissue Type Adherent Slough -Texture (Sue-wound Skin Appearance) Assessed Scarring -Moisture (Sue-wound Skin Appearance Assessed ) Dry/Scaly -Color (Sue-wound Skin Appearance) Assessed Erythema Hemosiderin Staining -Temperature (Sue-wound Skin No Abnormality Appearance) (Pt Warm) -Tenderness on Palpation (Sue-wound No Skin Appearance) -Ulcer Cleansing Wound Cleanser -Foul Odor after Cleansing No -Anesthetic Used 5% Lidocaine Gel [Edema Assessment] -Lower Limb Edema Present Yes -Right Calf (cm) 41 -Right Ankle (cm) 26.1 -Left Calf (cm) 41.5 -Left Ankle (cm) 25.1 WC - Nurse 2 - General Ulcer CM Notes Start: 12/19/18 10:42 Freq: Status: Active Protocol: Activity Type Activity Date Activity User E-Sign Co-Sign Detail Recorded Client Recorded Date Recorded By Document 12/19/18 11:06 AN [id number] 12/19/18 11:12 AN 12/19/18 11:06 Wound Center Nurse 2 [Procedure/Treatment] #1 L [place] -Time 11:10 -Correct Patient Yes -Correct Side, Site, Position Yes -Correct Procedure Yes -Procedure Performed Yes -Type of Procedure Debridement -Clinical Debridement Subcutaneous -Post Debridement Size (cm) - Length 0.1 -Post Debridement Size (cm) - Width 0.1 -Post Debridement Size (cm) - Depth 0.1 -Total Square Cm 0.01 -Wound/Ulcer Outcome Not Healed -Ulcer Cleansing Rinsed/ Irrigated with Saline -Foul Odor after Cleansing No [See Physician Procedure note for Specifics] Musculoskeletal: No Muscle Wasting Neurological: Cranial nerves II-XII grossly intact Psych/Mental Status: Normal Affect Debridement Note Post-Debridement Measurements/Treatment WC - Nurse 2 - General Ulcer CM Notes Start: 12/19/18 10:42 Freq: Status: Active Protocol: Activity Type Activity Date Activity User E-Sign Co-Sign Detail Recorded Client Recorded Date Recorded By Document 12/19/18 11:06 AN [id number] 12/19/18 11:12 AN 12/19/18 11:06 Wound Center Nurse 2 #1 L [place] -Time 11:10 -Correct Patient Yes -Correct Side, Site, Position Yes -Correct Procedure Yes -Procedure Performed Yes -Type of Procedure Debridement -Clinical Debridement Subcutaneous -Post Debridement Size (cm) - Length 0.1 -Post Debridement Size (cm) - Width 0.1 -Post Debridement Size (cm) - Depth 0.1 -Total Square Cm 0.01 -Wound/Ulcer Outcome Not Healed -Ulcer Cleansing Rinsed/ Irrigated with Saline -Foul Odor after Cleansing No Wound debrided: Left lower extremity Wound Grade/Stage: Stage II Type of Debridement: Selective debridement Anesthesia Used: 4% Lidocaine Solution Depth: Down to and including healthy tissue Percentage of wound debrided: 100 Instrument Used: 3mm curette Tissue Removed: Devitalized tissue Severity: Limited To Skin Breakdown Amount of bleeding with debridement: Mild Bleeding Controlled with: Pressure Patient tolerated procedure well Assessment/Plan Active Problems (Last Updated 12/16/18 @ 19:26 by Sharlene Calvin) Venous insufficiency of both lower extremities (Chronic) Paroxysmal atrial fibrillation (Chronic) Acute on chronic diastolic (congestive) heart failure (Chronic) Ulcer of left lower extremity with fat layer exposed (Chronic) Assessment: Same as above. Plan: Debridement done as documenetd above, procedure was well tolerated. Differential warmth, redness and pain have all improved. Ulcer has also significantly improved. Culture with no growth. No indication for antibiotcs at this time. Continue adaptic over area and 3M wraps. Leave on for a week. Elevate lower extremities when seated and in bed. Exercise as tolerated and avoid idle standing. Increased protein intake recommended. All their questions were answered and they were advised to call with any questions or concerns. Follow up in1 week.
[2018-12-26 10:30] VITALS: BP 161/68; PULSE 65; RESP 16; TEMP 36.9; BMI 40.3
--- NOTE | 2018-12-26 11:07 | PCM.WC.PN ---
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 History of Wound: Mr Milligan is here due jeannette non healing left lower extremity ulcers and persistent swelling/ concern for cellulitis. 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 He however has had ongoing swelling and subsequent ulceration of his left lower extremity. He has been on Keflex twice due to concern for Cellulitis but they have noted no significant improvement. He denies chills, fever or other aragon feeling of unwell. Progress of Wound: Ulcer is healed. No open areas. Increased erythema. He denies tenderness or warmth around the area. - Physical Exam Vital Signs Temp Pulse Resp BP 98.4 F 65 16 161/68 H 12/26/18 10:30 12/26/18 10:30 12/26/18 10:30 12/26/18 10:30 General: Alert, Oriented x3, Cooperative, No apparent distress HEENT: Atraumatic, Normocephalic Oral: Moist Mucosa Neck: Supple Lungs: Normal air movement Abdomen: Non Tender, Obese Extremities: No cyanosis, Edema Wound Measurements and Assessment WC - Nurse 1 - General Ulcer Measurement Start: 12/19/18 10:42 Freq: Status: Active Protocol: Activity Type Activity Date Activity User E-Sign Co-Sign Detail Recorded Client Recorded Date Recorded By Document 12/26/18 10:30 [facility] [id number] 12/26/18 10:37 [facility] 12/26/18 10:30 Wound Center Nurse 1 [Edema Assessment] -Lower Limb Edema Present Yes -Right Calf (cm) 40.5 -Right Ankle (cm) 25.7 -Left Calf (cm) 45 -Left Ankle (cm) 25.2 WC - Nurse 2 - General Ulcer CM Notes Start: 12/19/18 10:42 Freq: Status: Active Protocol: Activity Type Activity Date Activity User E-Sign Co-Sign Detail Recorded Client Recorded Date Recorded By Document 12/26/18 10:43 MW [id number] 12/26/18 10:48 MW 12/26/18 10:43 Pain Scale: 0-10 Numeric [Pain] -Is Patient Pain Free? Yes Musculoskeletal: No Muscle Wasting Neurological: Cranial nerves II-XII grossly intact Psych/Mental Status: Normal Affect Debridement Note Post-Debridement Measurements/Treatment WC - Nurse 2 - General Ulcer CM Notes Start: 12/19/18 10:42 Freq: Status: Active Protocol: Activity Type Activity Date Activity User E-Sign Co-Sign Detail Recorded Client Recorded Date Recorded By Document 12/19/18 11:06 AN [id number] 12/19/18 11:12 AN Document 12/26/18 10:43 MW [id number] 12/26/18 10:48 MW 12/19/18 12/26/18 11:06 10:43 Wound Center Nurse 2 #1 L [place] -Time 11:10 -Correct Patient Yes -Correct Side, Site, Position Yes -Correct Procedure Yes -Procedure Performed Yes -Type of Procedure Debridement -Clinical Debridement Subcutaneous -Post Debridement Size (cm) - Length 0.1 -Post Debridement Size (cm) - Width 0.1 -Post Debridement Size (cm) - Depth 0.1 -Total Square Cm 0.01 -Wound/Ulcer Outcome Not Healed -Ulcer Cleansing Rinsed/ Irrigated with Saline -Foul Odor after Cleansing No Pain Scale: 0-10 Numeric Is Patient Pain Free? Yes No debridement was completed today Assessment/Plan Active Problems (Last Updated 12/16/18 @ 19:26 by Sharlene Calvin) Venous insufficiency of both lower extremities (Chronic) Ulcer of left lower extremity with fat layer exposed (Chronic) Assessment: Same as above. Plan: Ulcer remains healed. No open area. Increased erythema noted at this week. However 3M wraps not on properly today. Lengthy discussion had with patient about the need to properly manage lower extremity edema. Also did discuss with them the increased risk of recurrent stasis dermatitis/cellulitis/ulceration. Very minimal differential warmth and no tenderness on examination. Will hold off antibiotics. Lee wraps daily to both lower extremities. Elevate lower extremities when seated and in bed. Exercise as tolerated and avoid idle standing. Advised to follow-up with his primary care physician or go to the ER if he notes worsening pain, redness or warmth. He expressed understanding. Since he has no further open wounds/ulcers, will discharge from the wound clinic. All their questions were answered and they were advised to call with any questions or concerns. Follow up in1 week.
--- NOTE | 2018-12-26 11:12 | PN.PCM_ITS ---
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 History of Wound: Mr Milligan is here due jeannette non healing left lower extremity ulcers and persistent swelling/ concern for cellulitis. 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 He however has had ongoing swelling and subsequent ulceration of his left lower extremity. He has been on Keflex twice due to concern for Cellulitis but they have noted no significant improvement. He denies chills, fever or other aragon feeling of unwell. Progress of Wound: Ulcer is healed. No open areas. Increased erythema. He denies tenderness or warmth around the area. - Physical Exam Vital Signs Temp Pulse Resp BP 98.4 F 65 16 161/68 H 12/26/18 10:30 12/26/18 10:30 12/26/18 10:30 12/26/18 10:30 General: Alert, Oriented x3, Cooperative, No apparent distress HEENT: Atraumatic, Normocephalic Oral: Moist Mucosa Neck: Supple Lungs: Normal air movement Abdomen: Non Tender, Obese Extremities: No cyanosis, Edema Wound Measurements and Assessment WC - Nurse 1 - General Ulcer Measurement Start: 12/19/18 10:42 Freq: Status: Active Protocol: Activity Type Activity Date Activity User E-Sign Co-Sign Detail Recorded Client Recorded Date Recorded By Document 12/26/18 10:30 [facility] [id number] 12/26/18 10:37 [facility] 12/26/18 10:30 Wound Center Nurse 1 [Edema Assessment] -Lower Limb Edema Present Yes -Right Calf (cm) 40.5 -Right Ankle (cm) 25.7 -Left Calf (cm) 45 -Left Ankle (cm) 25.2 WC - Nurse 2 - General Ulcer CM Notes Start: 12/19/18 10:42 Freq: Status: Active Protocol: Activity Type Activity Date Activity User E-Sign Co-Sign Detail Recorded Client Recorded Date Recorded By Document 12/26/18 10:43 MW [id number] 12/26/18 10:48 MW 12/26/18 10:43 Pain Scale: 0-10 Numeric [Pain] -Is Patient Pain Free? Yes Musculoskeletal: No Muscle Wasting Neurological: Cranial nerves II-XII grossly intact Psych/Mental Status: Normal Affect Debridement Note Post-Debridement Measurements/Treatment WC - Nurse 2 - General Ulcer CM Notes Start: 12/19/18 10:42 Freq: Status: Active Protocol: Activity Type Activity Date Activity User E-Sign Co-Sign Detail Recorded Client Recorded Date Recorded By Document 12/19/18 11:06 AN [id number] 12/19/18 11:12 AN Document 12/26/18 10:43 MW [id number] 12/26/18 10:48 MW 12/19/18 12/26/18 11:06 10:43 Wound Center Nurse 2 #1 L [place] -Time 11:10 -Correct Patient Yes -Correct Side, Site, Position Yes -Correct Procedure Yes -Procedure Performed Yes -Type of Procedure Debridement -Clinical Debridement Subcutaneous -Post Debridement Size (cm) - Length 0.1 -Post Debridement Size (cm) - Width 0.1 -Post Debridement Size (cm) - Depth 0.1 -Total Square Cm 0.01 -Wound/Ulcer Outcome Not Healed -Ulcer Cleansing Rinsed/ Irrigated with Saline -Foul Odor after Cleansing No Pain Scale: 0-10 Numeric Is Patient Pain Free? Yes No debridement was completed today Assessment/Plan Active Problems (Last Updated 12/16/18 @ 19:26 by Sharlene Calvin) Venous insufficiency of both lower extremities (Chronic) Ulcer of left lower extremity with fat layer exposed (Chronic) Assessment: Same as above. Plan: Ulcer remains healed. No open area. Increased erythema noted at this week. However 3M wraps not on properly today. Lengthy discussion had with thais bernstein about the need to properly manage lower extremity edema. Also did discuss with them the increased risk of recurrent stasis dermatitis/cellulitis/ulceration. Very minimal differential warmth and no tenderness on examination. Will hold off antibiotics. Lee wraps daily to both lower extremities. Elevate lower extremities when seated and in bed. Exercise as tolerated and avoid idle standing. Advised to follow-up with his primary care physician or go to the ER if he notes worsening pain, redness or warmth. He expressed understanding. Since he has no further open wounds/ulcers, will discharge from the wound clinic. All their questions were answered and they were advised to call with any questions or concerns. Follow up in1 week.
== END 2019-01-17 23:59 ==
LOC: WC 10:30
PROVIDERS: Family Provider Family Medicine; PCP Family Medicine; Visit Provider Internal Medicine
DX: E11.622 Type 2 diabetes mellitus with other skin ulcer (principal); I87.2 Venous insufficiency (chronic) (peripheral); L97.822 Non-pressure chronic ulcer of other part of left lower leg with fat layer exposed; M79.89 Other specified soft tissue disorders; Z95.1 Presence of aortocoronary bypass graft; I48.0 Paroxysmal atrial fibrillation; I50.32 Chronic diastolic (congestive) heart failure
CPT/HCPCS: 97597; 99212; G0463

== ENCOUNTER 2019-01-01 07:51 | Outpatient (RCR) | payer MEDICARE, OTHER, SELFPAY ==
--- NOTE | 2019-01-01 09:27 | HP.OTEVAL_ITS ---
Patient's Visit Information HARRISON ESTRADA is a 78 year old M, referred to Occupational Therapy by Ed Lobo MD, with a diagnosis of venous insuffincey BLE. Date of Evaluation: 01/01/19 Occupational Therapist: Reanna Pollard, RAYMUNDO/Roberta, CHT - Subjective Subjective: This 78 year old male was seen for OT eval with dx. of Lymphedema. Pt states he had open heart sx October 29. pt states he has had swelling in his LE sinces, possible prior to sx. states with pt on laxis his swelling is much better, but he still has open blisters on his left LE. pts reports she did by compression socks at [facility] [place] [facility] and she could not get them on her legs let alone pts legs. Pt and demo need for ed. on compression garments/alterantive and ex. to assist with edema mtg. - Lymphedema (Circumferential Measure) Mid-foot: right 25.5 left 25.5cm Ankle: right 28cm left 29cm Lower calf: right 31cm left 26cm Largest calf: right 43cm left 44cm Below knee: right 41cm left 39 cm Lower Exremity Comments: length 17 - Lower Limb Functional Index Lower Extremity Functional Score: 29 - Goals Demonstrate adequate knowledge of self-massage by 2nd week: Yes Demonstrate adequate knowledge skin care/prec by 2nd week: Yes Demonstrate adequate knowledge therapeutic exercises by d/c: Yes Select approp compression garment w/donning/care/wear by d/c: Yes Voice need to replace compression garment every 4-6mo by dc: Yes - Rehabilitation General Assessment: This 78 year old male demo LE venous insufficency, demo with open blisters on left LE x 2 - pt is not allowing to put lotion on his LE or place bandages over open blisters- pt demo need for ed on compression garmet use, skin care and mtg of LE edema. Pt would benefit from skilled OT services 2- 3 visits to ensure use of compression socks and performance of ex. Today pt and ed. on skin care, lymphedema, compression garments, and lymph stim ex. and given handout. Pt and ed. on compression garment sizing and companies to get compression socks/alternatives from. pt also ed. to not sit at computer for longer than 20 min. pt and demo understanding and agree to POC. Rehabilitation Potential: Good - Anticipated Interventions Anticipated Interventions: Education re Diagnosis, Manual Lymph Drainage, Education re Life-long lymphedema Management, Education re Skin Care and Precautions, Education re Correct Donning Tech,Care&Wearing Sched Comp Garments, Caregiver Training - Visit Plan TEXT: Thank you for the opportunity to evaluate your patient. For Medicare and Medicare HMO plans, please review the plan of care and approve it. It will need to be FAXED BACK to us at [phone] for Medicare purposes. Please let me know if there are questions or concerns regarding this plan of care. Physician Signature: Date:
--- NOTE | 2019-03-05 16:00 | HP.OT.NRP ---
HP - Discharge Summary - Patient Information HARRISON ESTRADA was seen in my office for initial evaluation on 01/01/19. The following Plan of Care was established for this patient: - Anticipated Interventions Anticipated Interventions: Education re Diagnosis, Manual Lymph Drainage, Education re Life-long lymphedema Management, Education re Skin Care and Precautions, Education re Correct Donning Tech,Care&Wearing Sched Comp Garments, Caregiver Training This patient was last seen in our office 01/01/19. Pertinent comments regarding their Occupational therapy will appear below: pt seen for OT eval only for lymphedema- no follow up visit was scheduled and due to time lapse in therapy services pt d/c at this time. At this point I will be discontinuing this patient from occupational therapy. I would be happy to see this patient again in the future if found appropriate by the physician. Thank you! Reanna Pollard, OTR/L, CHT
== END 2019-01-01 19:00 | disposition home or self-care (01) ==
LOC: OT 07:51
PROVIDERS: Family Provider Family Medicine; PCP Family Medicine; Referring Provider Internal Medicine; Visit Provider Internal Medicine
DX: I87.2 Venous insufficiency (chronic) (peripheral) (principal)
CPT/HCPCS: 97166

== ENCOUNTER 2019-01-01 09:33 | Outpatient (RCR) | payer MEDICARE, OTHER, SELFPAY ==
[2019-01-01 10:13] LABS: International Normalized Ratio 2.1; Prothrombin Time (Protime)PT. 23.2 SECONDS (11.7-14.9)
== END 2019-01-01 10:33 | disposition home or self-care (01) ==
LOC: LAB 09:33
PROVIDERS: Family Provider Family Medicine; PCP Family Medicine; Referring Provider Internal Medicine Cardiovascular Disease; Visit Provider Internal Medicine Cardiovascular Disease
DX: I48.0 Paroxysmal atrial fibrillation (principal); Z79.01 Long term (current) use of anticoagulants
CPT/HCPCS: 36415; 85610

== ENCOUNTER → 2019-01-08 | Outpatient (CLI) | payer MEDICARE, OTHER, SELFPAY ==
[2019-01-08 08:13] VITALS: BMI 40.7
[2019-01-08 09:54] LABS: Absolute Lymphocyte Count 0.89 X10^3/ul (0.83-4.51); Absolute Neutrophil Count 3.9 X10^3/uL (2.0-7.7); Basophil# 0.03 X10^3/uL; Basophil% 0.5 % (0-1); Eosinophil# 0.15 X10^3/uL; Eosinophils% 2.7 % (0-5); Hematocrit 46.9 % (40-54); Hemoglobin 15.1 g/dl (13.0-16.5); Lymphocyte # 0.89 X10^3/ul (4.0); Lymphocyte % 16.1 % (19-41); Mean Corp Hgb Conc 32.2 g/gl (32-36); Mean Corpuscular Hgb 27.2 pg (27.0-32.0); Mean Corpuscular Volume 84.5 fL (80-94); Mean Platelet Vol. 10.5 fl (6.2-12.0); Monocyte# 0.57 X10^3/uL; Monocyte% 10.3 % (0-10); Neutrophil # 3.88 X10^3/uL (2.7-7.7); Neutrophil % 70.2 % (47-70); Platelet Count 204 K/mm3 (150-450); RBC Distribution Width CV 13.7 % (11.6-14.6); RBC Distribution Width SD 42.1 fl (35.1-43.9); Red Blood Count 5.55 M/mm3 (4.6-6.2); White Blood Count 5.5 K/mm3 (4.4-11.0)
[2019-01-08 09:59] LABS: POSITIVE COUNT NO; POSITIVE DIFFERENTIAL NO; POSITIVE MORPHOLOGY NO
[2019-01-08 10:04] LABS: Anion Gap 8 (5-15); BUN 21 mg/dL (7-18); BUN/Creat Ratio 17.6 RATIO (10-20); Calcium,Total 9.1 mg/dL (8.5-10.1); Chloride 108 mmol/L (98-107); Creatinine, Serum 1.19 mg/dL (0.70-1.30); EST Glomerular Filtration Rate 63 mL/min (>60); Est Glom Filt Rate - Afr Amer 76 mL/min (>60); Glucose 159 mg/dL (74-106); Potassium 4.1 mmol/L (3.5-5.1); Sodium Level 142 mmol/L (136-145)
== END | disposition home or self-care (01) ==
LOC: LAB 08:49
PROVIDERS: Family Provider Family Medicine; PCP Family Medicine; Referring Provider Physician Assistant Medical; Visit Provider Physician Assistant Medical
DX: E78.00 Pure hypercholesterolemia, unspecified (principal); I10 Essential (primary) hypertension
CPT/HCPCS: 36415; 80048; 85025

== ENCOUNTER 2019-01-15 10:49 | Day surgery (SDC) | payer MEDICARE, OTHER, SELFPAY ==
[2019-01-08 08:13] VITALS: BP 118/70; PULSE 60; RESP 17; TEMP 36.5; O2SAT 96; BMI 40.7
[2019-01-08 10:03] LABS: Hemoglobin A1c 6.2 % (4.2-6.3)
[2019-01-15] VITALS (9 sets, daily range): BP systolic 136–163; BP diastolic 72–86; PULSE 57–76; RESP 14–18; TEMP 36.2–36.6; O2SAT 94–99; BMI 40.7
[2019-01-15 11:21] LABS: Bedside Glucose 128 mg/dL (70-110)
[2019-01-15 11:21] LABS: Prothrombin Time Fingerstick 14.4 SEC (11.9-14.4)
--- NOTE | 2019-01-15 12:55 | PROS_PTH ---
PATIENT: HARRISON ESTRADA [place] [facility] [place][id number] AGE/SX: 78/M ROOM: RE01/15/[address]: Dr. Issac Rajput MD : [id number] BED: DIS: 01/16/2019 SPEC #: [id number] RECD: 01/16/19 09:50 STATUS: MAURO CROWEHayes #: [id number] FORTUNATO: 01/15/19 12:[address]: Issac Rajput DEPT: SURGICAL PATHOLOGY RECD BY: Constantino Kothari ENTERED: 01/16/19 13:08 SP TYPE: TURP OTHR DR: Dr. Sanju Luna MD Tissues: Prostate, NOS Procedures: Surgery Specimen Level IV HEADER OPERATION: Cysto, TUR, prostate, Olympus PRE-OP DIAGNOSIS: BPH with retention TISSUE SUBMITTED: Prostate tissue MICROSCOPIC DIAGNOSIS Prostate, transurethral resection: Benign nodular hyperplasia, glandular and stromal types. Mild chronic inflammation. AM:bia 01/17/19 MICROSCOPIC DESCRIPTION Slides are reviewed. GROSS DESCRIPTION Received is one container labeled with the patient's name and designated prostate tissue. The specimen consists of multiple irregular fragments of pink-cerrato, rubbery, soft tissue that in aggregate weigh 6.8 gm and measure in aggregate 6 x 6 x 07 cm. The entire specimen is submitted in five cassettes. / AM:bia 01/16/19 TC:3 CPT: 21090
[2019-01-15] MEDS: Cefazolin 2 GM in 0.9% Normal Saline 100 ML IV (13:29)
--- NOTE | 2019-01-15 14:22 | DCINST_ITS ---
Discharge Diet: Light diet - advance as tolerated Discharge Activity: Return to Normal Activity Call your doctor if your incision/area has: Continuous Slow Oozing, Sudden Increased Bleeding, Increased Pain/ Swelling, Increased Redness, Foul Smelling Discharge, Swelling at the incision site Suture Line Care: Avoid Pulling/Pushing, Avoid Pinching/Bending Allergies/Adverse Reactions: Allergies No Known Allergies Allergy (Verified 01/15/19 11:11) Medications to take at Discharge Multivitamin with Minerals [Multiple Vitamin] 1 tab PO DAILY 10/18/18 albuterol sulfate HFA 90 mcg/actuation aerosol inhaler 2 puff INHALATION Q6H PRN 11/08/18 metformin 500 mg tablet 500 mg PO DAILY tab 11/08/18 simvastatin 40 mg tablet 40 mg PO QHS 11/08/18 tamsulosin 0.4 mg capsule 2 tab PO QHS 11/08/18 metoprolol tartrate 50 mg tablet 50 mg PO BID tab 11/29/18 potassium chloride ER 20 mEq tablet,extended release 20 meq PO TID #90 tab 12/16/18 bumetanide 1 mg tablet See Rx Instructions PO .COMPLEX 30 Days #90 tab 01/03/19 magnesium oxide 400 mg capsule 400 mg PO BID #180 cap 01/03/19 Warfarin Sodium 10 mg PO MOTUWETHFRSA 01/08/19 Primary Care Physician: Sanju Luna MD [Primary Care Provider] - Test Results: Test results from this visit will be discussed in further detail at your follow- up appointment, if applicable. Please Follow Up With: Issac Rajput MD When: in 2 weeks, please call to make an appointment.
--- NOTE | 2019-01-15 14:25 | OP.PCM_ITS ---
Report of Operation Date of Procedure: 01/15/19 Pre-Operative Diagnosis: BPH with urinary retention Post-Operative Diagnosis: Same Surgery/Procedure Performed:: transurethral resection of the prostate Description of Surgical Findings:: 78-year-old male with a recent history of a coronary artery bypass surgery after this he went into retention of urine a cystoscopy was found to have enlarged prostate with obstruction with a large median lobe and lateral lobe is failed medical therapy and currently on self intermittent catheterization he has received clearance for surgery and working to proceed with a TURP. 78-year-old male taken back to the operating room and smooth induction of general anesthesia he was placed in dorsolithotomy position. The penis and testicles are prepped and draped in usual sterile fashion. Went into the bladder with a 26 Japanese continuous flow resectoscope. Inspected the prostate had a bilateral hypertrophy with a large median lobe. Inside the bladder and a fairly stretched out bladder with some moderate trabeculation throughout the bladder, floppy looking atonic bladder. Identified the right and left ureteral orifice, then proceeded with a resection first resected the median lobe then resected the right lobe of the prostate and then resect the left lobe of the prostate some of the apical tissue then switched out to the button vaporizing smooth out the resection and obtained a good nice wide open channel from the verumontanum into the bladder neck the Dinora was uninjured the sphincter was left intact did a flow test to get us somewhat of flow and then Ellik out all the chips of the bladder put a catheter and put on continuous bladder irrigation is taken back to PACU good condition spoke to the family they are aware that he could fail the TURP and may have to continue with self intermittent catheterization if he has an atonic bladder. Type of Anesthesia:: General Specimen's removed: prostate chips Drains: castano - Admit VTE Documentation VTE Present on Admission: No VTE Mechan Device Prophylaxis: SCD's
[2019-01-15] MEDS: Magnesium Oxide 400 MG Tablet PO (21:20)
[2019-01-15] MEDS: Ciprofloxacin 500 MG Tablet PO (21:20)
[2019-01-15] MEDS: Metoprolol Tartrate 50 MG Tablet PO (21:20)
[2019-01-15] MEDS: Docusate Sodium 100 MG Capsule PO (21:21)
[2019-01-15] MEDS: Nystatin Ointment 1 APPLIC TOPICAL (21:21)
[2019-01-15] MEDS: Tamsulosin HCl 0.4 MG Capsule 0.8 MG PO (21:21)
[2019-01-15] MEDS: Atorvastatin Calcium 20 MG Tablet PO (21:21)
[2019-01-15] MEDS: 0.9% Normal Saline 1,000 ML 75 ML IV (21:25)
[2019-01-16 02:15] VITALS: BP 125/67; PULSE 54; RESP 18; TEMP 36.9; O2SAT 94
[2019-01-16] MEDS: Nystatin Ointment 1 APPLIC TOPICAL (05:54)
[2019-01-16 05:55] LABS: Hematocrit 42.8 % (40-54); Mean Corp Hgb Conc 32.7 g/gl (32-36); Mean Corpuscular Hgb 27.2 pg (27.0-32.0); Mean Corpuscular Volume 83.3 fL (80-94); Mean Platelet Vol. 10.2 fl (6.2-12.0); Platelet Count 177 K/mm3 (150-450); RBC Distribution Width CV 13.9 % (11.6-14.6); RBC Distribution Width SD 41.6 fl (35.1-43.9); Red Blood Count 5.14 M/mm3 (4.6-6.2); White Blood Count 10.8 K/mm3 (4.4-11.0)
[2019-01-16 06:10] LABS: Scan Indicated on CBC? Y/N NO
[2019-01-16 06:17] LABS: Anion Gap 9 (5-15); BUN 17 mg/dL (7-18); BUN/Creat Ratio 19.5 RATIO (10-20); Calcium,Total 8.6 mg/dL (8.5-10.1); Chloride 108 mmol/L (98-107); Creatinine, Serum 0.87 mg/dL (0.70-1.30); EST Glomerular Filtration Rate 90 mL/min (>60); Est Glom Filt Rate - Afr Amer 109 mL/min (>60); Estimated Creatinine Clearance 75.73 ml/min; Glucose 118 mg/dL (74-106); Potassium 4.5 mmol/L (3.5-5.1); Sodium Level 140 mmol/L (136-145)
[2019-01-16] MEDS: Bumetanide 2 MG Tablet PO (07:54)
[2019-01-16] MEDS: metFORMIN HCl 500 MG Tablet PO (07:54)
[2019-01-16] MEDS: Docusate Sodium 100 MG Capsule PO (07:54)
[2019-01-16] MEDS: Ciprofloxacin 500 MG Tablet PO (07:55)
[2019-01-16 07:56] VITALS: PULSE 80
[2019-01-16] MEDS: Metoprolol Tartrate 50 MG Tablet PO (07:56)
[2019-01-16] MEDS: Pantoprazole Sodium 40 MG Tablet PO (07:56)
[2019-01-16] MEDS: Magnesium Oxide 400 MG Tablet PO (07:56)
[2019-01-16 08:15] VITALS: BP 149/74; PULSE 86; RESP 18; TEMP 36.7; O2SAT 95
[2019-01-16 08:40] VITALS: PULSE 86
--- NOTE | 2019-01-16 11:34 | NURSING ---
wound photo: left lateral lower leg
--- NOTE | 2019-01-16 11:35 | NURSING ---
wound photo: left anterior lower leg
== END 2019-01-16 13:17 | disposition home or self-care (01) ==
LOC: SDC 10:50 → AC 10:51 → MS2 01-16 09:12
PROVIDERS: Anesthesiology; Family Provider Family Medicine; PCP Family Medicine; Referring Provider Urology; Visit Provider Urology
PROC: (CPT 52601; principal; 2019-01-15 12:45)
DX: N40.1 Benign prostatic hyperplasia with lower urinary tract symptoms (principal); R33.8 Other retention of urine; Z79.899 Other long term (current) drug therapy; Z95.1 Presence of aortocoronary bypass graft; Z79.01 Long term (current) use of anticoagulants; I25.2 Old myocardial infarction; I10 Essential (primary) hypertension; G47.30 Sleep apnea, unspecified; Z86.73 Personal history of transient ischemic attack (TIA), and cerebral infarction without residual deficits; G25.81 Restless legs syndrome; I51.9 Heart disease, unspecified; E78.49 Other hyperlipidemia; E11.9 Type 2 diabetes mellitus without complications; N31.2 Flaccid neuropathic bladder, not elsewhere classified
CPT/HCPCS: 00914; 52601; 36415; 36416; 80048; 82962; 83036; 85027; 85610; 88305; J7030; J7120; J2405

== ENCOUNTER → 2019-01-28 | Outpatient (CLI) | payer MEDICARE, OTHER, SELFPAY ==
[2019-01-22 13:05] VITALS: BMI 40.7
--- NOTE | 2019-01-28 12:35 | PCM.CR.ITP ---
General Information - General Information Admitting Diagnosis: CABG - Education/Goals Barriers to Learning: Hearing Impairment Individual Counseling: Initial Assessment: Abnormal Cholesterol Levels, High Blood Pressure, Overweight/Obesity, Metabolic Syndrome (as evidenced by 3 of 5 A-E below), Hypertension, Sedentary Lifestyle, Family History of Heart Disease (under 65 years) Cardiac Rehabilitation Goals: 1. Maintain the individual as the primary focus of care. 2. To improve the patient's quality of life. 3. Identification of cardiac risk factors and provide cardiac risk factor management. 4. Enhance the psychosocial status of the patient. 5. Reconditioning enough to allow the patient to resume customary activities. 6. Control symptoms of cardiac disease Scale for measuring improvement of personal goals: Enter appropriate number in Comments. 2 = Unchanged. 3 = Slightly Better. 4 = Moderate Improvement. 5 = Met my Goal Personal Goals: Initial Assessment: Improve energy level Exercise - Initial Assessment - Visit Date of Eval: 01/28/19 - Stages of Change Stages of Change:: Action - Physician Prescribed Exercise Modalities: Treadmill, Biodyne, Airdyne, NuStep, SciFit Frequency (days/week): 3x/week for 12 weeks [36 sessions] Intensity: 60-80% age predicted maximum heart rate reserve Target Heart Rate:: 93-122 - Hypertension Do any of the following apply?: Medication Resting Blood Pressure:: 112/74 - Intervention Home Exercise/Activity Goal:: Sitting Time <3 hrs/day - Education Goals:: Warm-up, RPE DIPAK Scale, S/S, Safe Exercise, Self-Monitoring - Exercise Program Goals Exercise Program Goals: Aerobic Activity >30 min, B/P <130/80 Nutrition - Initial Assessment - Program Goals Nutrition Program Goals: LDL <70. Total Cholesterol <200. HDL >45. Triglycerides <150. HgbA1C <7%. BMI <25 - Visit Date of Assessment:: 01/28/19 - Stages of Change Stages of Change:: Action - Lipids Total Cholesterol (mg/dL) Goal = less than 200 mg/dL: 149 HDL Cholesterol (mg/dL) Goal = less than 45 mg/dL: 39 LDL Cholesterol (mg/dL) Goal = less than 70 mg/dL: 76 Triglycerides (mg/dL) Goal = less than 150 mg/dL: 168 Lipid Medication: SIMVASTATIN - Diabetes Diabetes:: No - Weight Management Height: 5 ft 11 in Weight:: 292 lb - Intervention Referral to dietitian:: Yes Referral to Diabetic Clinic:: No Will attend diet classes:: Yes Tobacco - Initial Assessment - Program Goals Tobacco Program Goals: Complete smoking cessation. Attend education classes. Improve Knowledge Test score - Stage of Change Stages of Change:: Action - Learning Barriers Learning Barriers: Hearing - Family Support Do you have family support?: Yes - Tobacco Use Tobacco Use: Non-smoker - Intervention Smoking Cessation Referral:: No Psychosocial - Initial Assess - Target Goals Target Goals: Assess presence or absence of depression. Using a valid screening tool, maximizes coping skills. Positive support system - Stages of Change Stages of Change:: Action - Psychosocial Test Tool Used:: HANDS Depression Questionnaire - Intervention PS - Interventions: Yes Attend Stress Management Classes, Yes Uses Stress Management Skills, No Referral to Mental Health, No Referral to [facility] Case Management, No Referral to Physician - Assistive Devices Assistive Devices:: None Fall Risk Assessed:: No Patient Health Questionnaire Initial Assessment 1. Little interest or pleasure in doing things: Several days 2. Feeling down, depressed, or hopeless: Not at all 3. Trouble falling or staying asleep, or sleeping too much: Not at all 4. Feeling tired or having little energy: Several days 5. Poor appetite or overeating: Not at all 6. Feeling bad about yourself -- or that you are a failure or have let yourself or your family down: Not at all 7. Trouble concentrating on things, such as reading the newspaper or watching television: Not at all 8. Moving or speaking so slowly that other people could have noticed. Or the opposite - being so fidgety or restless that you have been moving around a lot more than usual: Not at all 9. Thoughts that you would be better off , or of hurting yourself in some way: Not at all How difficult have these problems made it for you to do your work, take care of things at home, or get along with other people?: Not difficult at all Total Score: 2 TOBY-Q SV Test - Statements CAD is a disease of the arteries in the heart: False Examples of risk factors for heart disease: True Angina is chest pain or discomfort: False The benefits of resistance training include: False Eating more meat and dairy products: False Anti-platelet medications such as aspirin are important: I Don't Know The only effective way to manage stress: False An exercise warm-up slowly increases heart rate: True Prepared, processed foods usually have high sodium: True Depression is common after a heart attack: I Don't Know The statin medications lower cholesterol: I Don't Know To control blood pressure, lower the amount of sodium: True If someone gets chest discomfort during walking: False Transfats are partially hydrogenated vegetable oils: I Don't Know Sleep apnea that is not treated increases the risk: I Don't Know To control cholesterol, one should become a vegetarian: I Don't Know Someone knows if he/she is exercising at the right level: False Diabetes cannot be prevented with exercise & health eating: False Stress is a large risk for heart attack: True A diet that can help lower blood pressure is rich in: True - Total Score Total Correct Responses: 11 Self-Efficacy Initial Assessment We would like to know how confident you are in doing certain activities. Please select your confidence level for:: Select your confidence level for the following using the scale 1-10 where 1 is not at all confident and 10 is totally confident. Your score is the average of all 6 responses. Fatigue: How confident are you that you can keep the fatigue caused by your disease from interfering with the things you want to do? Select Number: 6 Physical Discomfort or Pain: How confident are you that you can keep the physical discomfort or pain of your disease from interfering with the things you want to do? Select Number: 9 Emotional Distress: How confident are you that you can keep the emotional distress caused by your disease from interfering with the things you want to do? Select Number: 8 Other Symptoms or Health Problems: How confident are you that you can keep other symptoms or health problems from interfering with the things you want to do? Select Number: 6 Different Tasks and Activities: How confident are you that you can do the different tasks and activities needed to manage your health condition so as to reduce your need to see a doctor? Select Number: 6 Medication: How confident are you that you can do things other than just taking medication to reduce how much your illness affects your everyday life? Select Number: 8 Total Score:: 7 Nutrition Survey - Nutrition Survey Instructions Scoring Instructions: Scoring is as follows: Yes = 1 points. No = 0 point. Patient score that is >/=12 is considered to be at potential nutritional risk and could benefit from a referral to a registered dietitian. - Nutrition Survey Initial Have you lost >10 lbs over the past 2 months without trying?: No Are you following a special diet at home for diabetes, low fat, or low salt?: Yes Are you interested in meeting with a dietitian for help understanding your diet?: Yes Do you eat less than 3 meals a day?: No Do you eat fatty meats (melissa, sausage, ribs, etc), fried foods, desserts, large amounts of salad dressings, margarine, butter, or cheese most days?: Yes Do you have food allergies? [Enter types in comment field]: No Do you eat in restaurants more than 3 times a week?: No Do you season food with salt, seasoning salt, or garlic salt?: Yes Do you used canned, boxed, frozen meals, or soups, seasoning packets?: No Total Score:: 4
--- NOTE | 2019-01-28 12:41 | CR.HP_ITS ---
CR - History & Physical - General Arrival date:: 01/28/19 Arrival time:: 11:50 Referring Physician: 10/29/2018 Primary Diagnosis: CABG - History of Present Cardiac Event Onset Date: Enter Onset Date of cardiac illnesses in Comment field below Current stable Angina Pectoris:: No Acute Myocardial Infarction within 12 months:: Yes Coronary Artery Bypass Graft:: Yes - CABG X2 Heart valve replacement or repair:: Yes - AV VALVE REPALCED PTCA or coronary stenting:: No Heart or Heart-Lung Transplant:: No Heart Failure EF <35%:: No Type of Symptoms:: SOB, NO PAIN - Medications Home Medications: Ambulatory Orders Medication Instructions Recorded Multivitamin with Minerals 1 tab PO DAILY 10/18/18 [Multiple Vitamin] albuterol sulfate HFA 90 2 puff INHALATION Q6H PRN 11/08/18 mcg/actuation aerosol inhaler metformin 500 mg tablet 500 mg PO DAILY tab 11/08/18 simvastatin 40 mg tablet 40 mg PO QHS 11/08/18 tamsulosin 0.4 mg capsule 2 tab PO QHS 11/08/18 metoprolol tartrate 50 mg tablet 50 mg PO BID tab 11/29/18 potassium chloride ER 20 mEq 20 meq PO TID #90 tab 12/16/18 tablet,extended release bumetanide 1 mg tablet See Rx Instructions PO .COMPLEX 30 01/03/19 Days #90 tab magnesium oxide 400 mg capsule 400 mg PO BID #180 cap 01/03/19 Warfarin Sodium 10 mg PO MOTUWETHFRSA 01/08/19 Warfarin [Coumadin ([facility])] 5 mg PO UD 01/15/19 - Allergies Allergies/Adverse Reactions: Allergies No Known Allergies Allergy (Verified 01/15/19 11:11) - Sleep Disorder Evaluation Hx of Sleep Apnea: No Do you snore loudly (louder than talking or can be heard through closed doors)?: No Do you often feel tired/ fatigued/ sleepy during daytime?: Yes Has anyone observed you stop breathing during sleep?: No History of Hypertension (for STOP score): Yes STOP Results: Positive Advanced Directives - Advanced Directives Power of Research And Development Engineer: Yes - MEDICAL Living Will: Yes Advance Directives on File: No - PT/ ARE GOING TO BRING ADV DIR. PAPERS THAT THEY FILED IN [place] DNR Order?:: No Past Medical History - Past Medical Illness Medical History: Past Medical History (Last Updated 12/16/18 @ 19:26 by Sharlene Calvin) Paroxysmal atrial fibrillation (Chronic) I48.0 Acute on chronic diastolic (congestive) heart failure (Chronic) I50.33 Essential (primary) hypertension (Chronic) I10 Hyperlipidemia (Chronic) E78.5 Atherosclerosis of coronary artery of redding heart without angina pectoris (Chronic) I25.10 CABG x 3 QUEEN-LAD, SVG- D1, SVG-OM1 w/ 23mm [facility] 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 [facility] current use of anticoagulant (Chronic) Z79.01 Non-ST elevation (NSTEMI) myocardial infarction (Resolved) Onset Date: 10/19/18 I21.4 Non-rheumatic aortic stenosis (Chronic) I35.0 CVA (cerebral vascular accident) I63.9 Chronic renal insufficiency N18.9 Obesity E66.9 Obstructive sleep apnea G47.33 Type 2 diabetes mellitus E11.9 Venous insufficiency of left leg I87.2 Postoperative atrial fibrillation I97.89, I48.91 Dyspnea (Inactive) R06.00 Hyperlipidemia (Inactive) E78.5 - Past Surgical History Surgical History: Past Surgical History (Last Updated 01/03/19 @ 16:20 by Juli Moeller) H/O aortic valve replacement (Chronic) Onset Date: 10/29/[address] 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 H/O coronary artery bypass surgery (Chronic) Onset Date: 10/29/18 Z95.1 CABG x 3 QUEEN-LAD, SVG- D1, SVG-OM1 10/29/18 History of left heart catheterization Onset Date: 10/21/18 Z98.890 History of tonsillectomy Z90.89 Surgical History: tonsillectomy Social History - Smoking History Smoking Status: Never smoker - Alcohol Use Alcohol Usage: No - Substance Abuse Hx Substance Use: No - Occupation Occupation (List type of work in comments):: Retired - Hobbies, Recreation, Social Activities Hobbies: Other - STAMP [employer], WORKS WITH [employer] Recreational Activities: I am able to engage in most, but not all activities, I am able to engage in a few activities Social Environment - Status Marital Status: - Current Living Arrangements Living Environment:: Spouse - Children How many children do you have?: 2 Do any of your children live nearby?: Yes - Safety Do you feel safe in your surroundings?: Yes - Assistance Do you need any assistance at home?: NONE Review of Systems - Review of Systems Hints: Right click = Denies (Slash). Left click = Reports ([place]) Review of Present Symptoms: Reports: Shortness of Breath with Exertion, Wound Healing, Fatigue, Appetite - Normal, Appetite - Special Diet, Sleep - Normal. Denies: Shortness of Breath at Rest, Operative Discomfort, Angina, Dizziness/Lightheadedness, Heart Arrhythmia/Irregularities - Pain Is Patient Pain Free?: Yes Pain Location: none Pain Level: 0/10 Risk Factor Assessment - Chief Complaint Chief Complaint: CURRENT CABG PT WHO PRESENTS FOR CR FOR INIT EVAL - Vital Signs Temperature: 98.6 F Respiratory Rate: 20 Pulse Ox: 96 Blood Pressure: 112/74 Nailbeds:: PINK - Pulse Pulse Rate: 67 Pulse Rhythm: Regular - Hypertension How long have you been treated?: 2011 On medication(s)?: METOPROLOL Blood Pressure Sitting - Left Arm: 112/74 - Blood Cholesterol/Lipids Total Cholesterol (mg/dL) Goal = less than 200 mg/dL: 149 HDL Cholesterol (mg/dL) Goal = less than 40 mg/dL: 39 LDL Cholesterol (mg/dL) Goal = less than 70 mg/dL: 76 Triglycerides (mg/dL) Goal = less than 150 mg/dL: 168 - Diabetes Nutrition Referral for Diabetes: No - Obesity Height: 5 ft 11 in Weight:: 292 lb Weight in Pounds: 292.0 lbs Weight Source: Estimated by Patient Body Mass Index (BMI): 40.7 Nutritional Referral for Obesity: Yes - PT AND WOULD LIKE DIETARY REFERRAL FOR CARDIAC DIET ETC. - Physical Inactivity Physical Inactivity: None - Risk Stratification Risk Guidelines: Lowest Risk: Risk Factor for Smoking, Risk Factor for Dyslipidemia, Moderate Risk: Risk Factor for Diabetes - PT STATES HE'S PRE- DIABETIC, Highest Risk: Risk Factor for Obesity, Risk Factor for Hypertension, Risk Factor for Sedentary Lifestyle, Risk Factor for Depression - For Smoking Smoking Risk Guidelines: Smoking Low Risk: None or quit greater than 6 months ago. Smoking Moderate Risk: Smoker or quit 6 months or less ago. Smoking High Risk: Smoker - For Dyslipidemia Dyslipidemia Risk Guidelines: Low Risk: Moderate Risk: High Risk: 15-25% fat 25.1-29% fat >/= 30% fat. <7% sat fat 7-9% sat fat >9% sat fat. <150 mg chol 150-299 mg chol >/= 300 mg chol. LDL <100 LDL 100-129 LDL >/= 130. Chol/HDL ratio <5.0 Chol/HDL ratio 5.0-6.0 Chol/HDL ratio >6.0. Triglycerides <100 Triglycerides 100-149 Triglycerides >/= 150 - For Diabetes Mellitus Diabetes Risk Guidelines: Diabetes Low Risk: HgA1c <6.5% and/or FBG <120. Diabetes Moderate Risk: HgA1c 6.6-7.9% and/or FBG 120-180. Diabetes High Risk: HgA1c >/= 8% and/or FBG >180 - For Obesity/Overweight Obesity/Overweight Risk Guidelines: Obesity Low Risk: BMI <25.0. Obesity Moderate Risk: BMI 25-29.9. Obesity High Risk: BMI >/= 30.0 - For Hypertension Hypertension Risk Guidelines: Hypertension Low Risk: Systolic <120 and Diastolic <80. Hypertension Moderate Risk: Systolic 120-139 and Diastolic 80-89. Hypertension High Risk: Systolic >/= 140 and Diastolic >/= 90 - For Sedentary Lifestyle Sedentary Lifestyle Risk Guidelines: Sedentary Lifestyle Low Risk: >/= 1,500 kcal/week. Sedentary Lifestyle Moderate Risk: 700-1,499 kcal/week. Sedentary Lifestyle High Risk: < 700 kcal/week - For Depression Depression Risk Guidelines: Depression Low Risk: Not clinically depressed. Depression Moderate Risk: Mildly depressed. Depression High Risk: Clinically depressed Motivation - Motivation to Participate On a scale of 1 to 10, how prepared are you to commit to attending program?: 4 What do you see as barriers to successfully being able to complete the program?: NONE What do you see as the benefits of succesfully completing the program? In other words, what do you hope to get out of participating in the program?: IMPROVED PHYSICAL STAMINA Are there issues you are dealing with that will interfere with completing the program?: POSSIBLE 'PHYSICAL' LIMITATIONS, HIPS Do you have a spouse or signficant other, family or friends who will help support you to complete the program?: SPOUSE
[2019-01-28 13:16] VITALS: BP 112/74; PULSE 67; RESP 20; TEMP 37; O2SAT 96; BMI 40.7
[2019-01-28 13:41] VITALS: BP 112/74
== END | disposition home or self-care (01) ==
LOC: CR 11:53
PROVIDERS: Family Provider Family Medicine; PCP Family Medicine; Referring Provider Internal Medicine Cardiovascular Disease; Visit Provider Internal Medicine Cardiovascular Disease
DX: E11.22 Type 2 diabetes mellitus with diabetic chronic kidney disease (principal); I13.0 Hypertensive heart and chronic kidney disease with heart failure and stage 1 through stage 4 chronic kidney disease, or unspecified chronic kidney disease; N18.9 Chronic kidney disease, unspecified; I50.33 Acute on chronic diastolic (congestive) heart failure; I48.0 Paroxysmal atrial fibrillation; E78.5 Hyperlipidemia, unspecified; I25.10 Atherosclerotic heart disease of native coronary artery without angina pectoris; I25.2 Old myocardial infarction; I35.0 Nonrheumatic aortic (valve) stenosis; E66.9 Obesity, unspecified; G47.33 Obstructive sleep apnea (adult) (pediatric); I87.2 Venous insufficiency (chronic) (peripheral); I97.89 Other postprocedural complications and disorders of the circulatory system, not elsewhere classified; Z86.73 Personal history of transient ischemic attack (TIA), and cerebral infarction without residual deficits; Z95.1 Presence of aortocoronary bypass graft; Z95.2 Presence of prosthetic heart valve; Z79.01 Long term (current) use of anticoagulants; Z79.84 Long term (current) use of oral hypoglycemic drugs; Z79.899 Other long term (current) drug therapy

== ENCOUNTER 2019-02-12 09:15 | Outpatient (RCR) | payer MEDICARE, OTHER, SELFPAY ==
[2019-01-28 13:16] VITALS: BMI 40.7
== END 2019-02-16 23:59 ==
LOC: CR 09:15
PROVIDERS: Family Provider Family Medicine; PCP Family Medicine; Referring Provider Internal Medicine Cardiovascular Disease; Visit Provider Internal Medicine Cardiovascular Disease
DX: I48.0 Paroxysmal atrial fibrillation (principal); I25.10 Atherosclerotic heart disease of native coronary artery without angina pectoris; Z95.1 Presence of aortocoronary bypass graft; Z95.2 Presence of prosthetic heart valve
CPT/HCPCS: 93798

== ENCOUNTER 2019-02-12 09:48 | Outpatient (RCR) | payer MEDICARE, OTHER, SELFPAY ==
[2019-01-18 01:11] VITALS: BMI 40.3
[2019-01-28 13:16] VITALS: BMI 40.7
[2019-02-05 11:17] LABS: International Normalized Ratio 1.5; Prothrombin Time (Protime)PT. 17.7 SECONDS (11.7-14.9)
[2019-02-12 12:03] LABS: Prothrombin Time (Protime)PT. 22.3 SECONDS (11.7-14.9)
== END 2019-02-16 12:00 | disposition home or self-care (01) ==
LOC: LAB 09:48
PROVIDERS: Family Provider Family Medicine; PCP Family Medicine; Referring Provider Internal Medicine Cardiovascular Disease; Visit Provider Internal Medicine Cardiovascular Disease
DX: I48.0 Paroxysmal atrial fibrillation (principal); Z79.01 Long term (current) use of anticoagulants
CPT/HCPCS: 36415; 85610

== ENCOUNTER 2019-03-14 09:55 | Outpatient (RCR) | payer MEDICARE, OTHER, SELFPAY ==
[2019-01-28 13:16] VITALS: BMI 40.7
[2019-02-28 10:23] LABS: International Normalized Ratio 2.5; Prothrombin Time (Protime)PT. 26.7 SECONDS (11.7-14.9)
[2019-03-14 10:37] LABS: International Normalized Ratio 2.2; Prothrombin Time (Protime)PT. 24.2 SECONDS (11.7-14.9)
[2019-03-14 10:53] LABS: Anion Gap 5 (5-15); BUN 23 mg/dL (7-18); BUN/Creat Ratio 19.7 RATIO (10-20); Chloride 109 mmol/L (98-107); Creatinine, Serum 1.17 mg/dL (0.70-1.30); EST Glomerular Filtration Rate 64 mL/min (>60); Est Glom Filt Rate - Afr Amer 78 mL/min (>60); Glucose 113 mg/dL (74-106); Magnesium 2.4 mg/dL (1.6-2.6); Potassium 4.3 mmol/L (3.5-5.1); Sodium Level 140 mmol/L (136-145)
== END 2019-03-19 16:32 | disposition home or self-care (01) ==
LOC: LAB 09:55
PROVIDERS: Physician Assistant Medical; Family Provider Family Medicine; PCP Family Medicine; Referring Provider Internal Medicine Cardiovascular Disease; Visit Provider Internal Medicine Cardiovascular Disease
DX: I48.0 Paroxysmal atrial fibrillation (principal); Z79.01 Long term (current) use of anticoagulants
CPT/HCPCS: 36415; 80048; 83735; 85610

== ENCOUNTER 2019-03-19 09:15 | Outpatient (RCR) | payer MEDICARE, OTHER, SELFPAY ==
[2019-01-28 13:16] VITALS: BMI 40.7
== END 2019-03-19 23:59 ==
LOC: CR 09:15
PROVIDERS: Family Provider Family Medicine; PCP Family Medicine; Referring Provider Internal Medicine Cardiovascular Disease; Visit Provider Internal Medicine Cardiovascular Disease
DX: I48.0 Paroxysmal atrial fibrillation (principal); I25.10 Atherosclerotic heart disease of native coronary artery without angina pectoris; Z95.2 Presence of prosthetic heart valve; Z95.1 Presence of aortocoronary bypass graft
CPT/HCPCS: 93798

== ENCOUNTER 2019-03-31 09:55 | Outpatient (RCR) | payer MEDICARE, OTHER, SELFPAY ==
[2019-01-28 13:16] VITALS: BMI 40.7
[2019-03-13 12:45] VITALS: BMI 40.1
== END 2019-03-31 23:59 | disposition home or self-care (01) ==
LOC: NS 09:55
PROVIDERS: Family Provider Family Medicine; PCP Family Medicine; Visit Provider Internal Medicine Cardiovascular Disease
DX: Z71.3 Dietary counseling and surveillance (principal); N18.9 Chronic kidney disease, unspecified; E78.5 Hyperlipidemia, unspecified; G47.33 Obstructive sleep apnea (adult) (pediatric); Z95.1 Presence of aortocoronary bypass graft
CPT/HCPCS: 97802

== ENCOUNTER 2019-04-04 09:53 | Outpatient (RCR) | payer MEDICARE, OTHER, SELFPAY ==
[2019-03-13 12:45] VITALS: BMI 40.1
[2019-04-04 10:42] LABS: International Normalized Ratio 2.1; Prothrombin Time (Protime)PT. 23.1 SECONDS (11.7-14.9)
== END 2019-04-04 10:53 | disposition home or self-care (01) ==
LOC: LAB 09:53
PROVIDERS: Family Provider Family Medicine; PCP Family Medicine; Referring Provider Internal Medicine Cardiovascular Disease; Visit Provider Internal Medicine Cardiovascular Disease
DX: I48.0 Paroxysmal atrial fibrillation (principal); Z79.01 Long term (current) use of anticoagulants
CPT/HCPCS: 36415; 85610

== ENCOUNTER → 2019-04-11 | Outpatient (CLI) | payer MEDICARE, OTHER, SELFPAY ==
[2019-03-13 12:45] VITALS: BMI 40.1
--- NOTE | 2019-04-11 09:55 | ECHOCS_ITS ---
Reason For Study: AVR Procedure This was a 2D Doppler, Color Flow transthoracic echocardiogram. Technically difficult due to patients body habitus. Contrast injection performed. Exam performed in department. Left Ventricle Normal LV size. Left ventricular systolic function is normal. Stage 3 diastolic dysfunction. No regional wall motion abnormalities noted. Aortic Valve The aortic valve is not well visualized. Peak aortic valve gradient 14 mmHg. Mean aortic valve gradient 6 mmHg. Bioprosthetic aortic valve. Pulmonic Valve The pulmonic valve is not well visualized. Great Vessels Normal aortic root. The pulmonary is not well visualized. Pericardium/Pleural No pericardial effusion. Medication 22 gauge I.V. with prn adaptor inserted into left arm. Diluted definity 3ml given slow IV push to enhance endocardial definition. MMode/2D Measurements & Calculations LVOT diam: 2.0 cm RA A4 area: 17.6 cm2 LVOT area: 3.0 cm2 Time Measurements MV dec time: 0.57 sec Doppler Measurements & Calculations MV E max michael: 110.7 cm/sec Lat Peak E' Michael: 4.9 cm/sec Med Peak E' Michael: 3.7 cm/sec MV A max michael: 156.7 cm/sec E/E' lat: 22.6 E/E' med: 29.6 MV E/A: 0.71 MV V2 max: 181.1 cm/sec MV P1/2t max michael: 120.4 cm/sec Ao V2 max: 189.7 cm/sec MV max P.1 mmHg MV P1/2t: 186.0 msec Ao max P.4 mmHg MV V2 mean: 84.7 cm/sec Ao V2 mean: 114.3 cm/sec MV mean P.5 mmHg MV dec slope: 189.5 cm/sec2 Ao mean P.4 mmHg MV V2 VTI: 66.8 cm MVA(P1/2t): 1.2 cm2 Ao V2 VTI: 35.7 cm MVA(VTI): 1.5 cm2 JAMAR(I,D): 2.8 cm2 JAMAR(V,D): 2.6 cm2 LV V1 max: 163.5 cm/sec SV(LVOT): 101.2 ml PA V2 max: 119.4 cm/sec LV V1 max P.7 mmHg LV V1 mean P.5 mmHg LV V1 mean: 106.2 cm/sec LV V1 VTI: 33.6 cm Interpretation Summary Normal LV size. Left ventricular systolic function is normal. Stage 3 diastolic dysfunction. Bioprosthetic aortic valve. Mean aortic valve gradient 6 mmHg. Contrast injection was performed. Ordering Physician: Reanna Jasso Referring Physician: MD Christian Lunaery Performed By: Francis Mena RCS
== END | disposition home or self-care (01) ==
LOC: CVS 09:53
PROVIDERS: Family Provider Family Medicine; PCP Family Medicine; Referring Provider Physician Assistant Medical; Visit Provider Physician Assistant Medical
DX: I25.10 Atherosclerotic heart disease of native coronary artery without angina pectoris (principal); I35.0 Nonrheumatic aortic (valve) stenosis; Z95.2 Presence of prosthetic heart valve; I10 Essential (primary) hypertension; E78.5 Hyperlipidemia, unspecified; I87.2 Venous insufficiency (chronic) (peripheral)
CPT/HCPCS: 93306; Q9957; A4216; C8929

== ENCOUNTER 2019-04-18 09:15 | Outpatient (RCR) | payer MEDICARE, OTHER, SELFPAY ==
[2019-03-13 12:45] VITALS: BMI 40.1
--- NOTE | 2019-03-28 07:14 | CR.ITP_ITS ---
General Information - General Information Admitting Diagnosis: CABG - Education/Goals Barriers to Learning: None Cardiac Rehabilitation Goals: 1. Maintain the individual as the primary focus of care. 2. To improve the patient's quality of life. 3. Identification of cardiac risk factors and provide cardiac risk factor management. 4. Enhance the psychosocial status of the patient. 5. Reconditioning enough to allow the patient to resume customary activities. 6. Control symptoms of cardiac disease Scale for measuring improvement of personal goals: Enter appropriate number in Comments. 2 = Unchanged. 3 = Slightly Better. 4 = Moderate Improvement. 5 = Met my Goal Exercise - 60-Day Assessment - Visit Date of Eval: 03/28/19 Session #:: 24 - Stages of Change Stages of Change:: Action - Physician Prescribed Exercise Modalities: Treadmill, Airdyne, NuStep Frequency (days/week): 3 Duration (Minutes):: 30-45 Intensity: 60-80% age predicted maximum heart rate reserve METs - Progression: 0.5-1.0 MET, RPE 11-14 WEEK: 2.5 Target Heart Rate:: 93-122 Max HR 90 - Hypertension Resting Blood Pressure:: 142/60 Peak Exercise Blood Pressure:: 142/60 Medication Changes:: No - Intervention Home Exercise/Activity Goal:: Sitting Time <3 hrs/day - Education Goals:: Warm-up, RPE DIPAK Scale, S/S, Safe Exercise, Self-Monitoring - Exercise Program Goals Exercise Program Goals: Aerobic Activity >30 min, B/P <130/80 Nutrition - 60-Day Assessment - Program Goals Nutrition Program Goals: LDL <70. Total Cholesterol <200. HDL >45. Triglycerides <150. HgbA1C <7%. BMI <25 - Visit Date of Eval: 03/28/19 - Stages of Change Stages of Change:: Action - Diabetes Diabetes:: No - Weight Management Weight:: 133.81 kg - Intervention Referral to dietitian:: Yes Referral to Diabetic Clinic:: No Will attend diet classes:: Yes - Education Attended class for:: Signs & symptoms of hypoglycemia, Signs & symptoms of hyperglycemia, Relate diabetes to coronary artery disease, Healthy eating Tobacco - Initial Assessment - Program Goals Tobacco Program Goals: Complete smoking cessation. Attend education classes. Improve Knowledge Test score - Learning Barriers Learning Barriers: Hearing Tobacco - 60-Day Assessment - Program Goals Tobacco Program Goals: Complete smoking cessation. Attend education classes. Improve Knowledge Test score - Stage of Change Stages of Change:: Action - Learning Barriers Learning Barriers: Participates in education - Family Support Do you have family support?: Yes - Tobacco Use Tobacco Use: Non-smoker Do you use smokeless tobacco?: No - Intervention Smoking Cessation Referral:: No Individual Education/Counseling:: No Education Schedule Given:: Yes - Education Attended class for:: Treating Heart Disease, How The Heart Works, What it means to have Heart Disease, How Coronary Artery Disease is Diagnosed, Heart Procedures, What Heart Medications Do, Risk Factors & Modifications, Living an Active Life, Nutrition, Emotions & Heart Disease, Stress Management & Relaxation, Sleep Disorders & Heart Disease Psychosocial - Initial Assess - Target Goals Target Goals: Assess presence or absence of depression. Using a valid screening tool, maximizes coping skills. Positive support system - Psychosocial Test Tool Used:: HANDS Depression Questionnaire - Assistive Devices Fall Risk Assessed:: No Psychosocial - 60-Day Assess - Target Goals Target Goals: Assess presence or absence of depression. Using a valid screening tool, maximizes coping skills. Positive support system - Stages of Change Stages of Change:: Action - Psychosocial Test Tool Used:: HANDS Depression Questionnaire - Intervention PS - Interventions: Yes Attend Stress Management Classes, Yes Uses Stress Management Skills, No Referral to Mental Health, No Referral to [facility] Mayur myles, No Referral to Physician - Education Attended classes for:: Coping techniques, Signs & symptoms of depression, Stress management, Relaxation techniques - Assistive Devices Assistive Devices:: None Fall Risk Assessed:: Yes Patient Health Questionnaire 60-Day Re-eval Assessment 1. Little interest or pleasure in doing things: Several days 2. Feeling down, depressed, or hopeless: Not at all 3. Trouble falling or staying asleep, or sleeping too much: Not at all 4. Feeling tired or having little energy: Several days 5. Poor appetite or overeating: Not at all 6. Feeling bad about yourself -- or that you are a failure or have let yourself or your family down: Not at all 7. Trouble concentrating on things, such as reading the newspaper or watching television: Not at all 8. Moving or speaking so slowly that other people could have noticed. Or the opposite - being so fidgety or restless that you have been moving around a lot more than usual: Not at all 9. Thoughts that you would be better off , or of hurting yourself in some way: Not at all How difficult have these problems made it for you to do your work, take care of things at home, or get along with other people?: Not difficult at all Total Score: 2 Self-Efficacy 60-Day Re-eval Assessment We would like to know how confident you are in doing certain activities. Please select your confidence level for:: Select your confidence level for the following using the scale 1-10 where 1 is not at all confident and 10 is totally confident. Your score is the average of all 6 responses. Fatigue: How confident are you that you can keep the fatigue caused by your disease from interfering with the things you want to do? Select Number: 6 Physical Discomfort or Pain: How confident are you that you can keep the physical discomfort or pain of your disease from interfering with the things you want to do? Select Number: 9 Emotional Distress: How confident are you that you can keep the emotional distress caused by your disease from interfering with the things you want to do? Select Number: 8 Other Symptoms or Health Problems: How confident are you that you can keep other symptoms or health problems from interfering with the things you want to do? Select Number: 6 Different Tasks and Activities: How confident are you that you can do the different tasks and activities needed to manage your health condition so as to reduce your need to see a doctor? Select Number: 6 Medication: How confident are you that you can do things other than just taking medication to reduce how much your illness affects your everyday life? Select Number: 8 Total Score:: 7
[2019-03-28 07:20] VITALS: BP 142/60
== END 2019-04-19 23:59 ==
LOC: CR 09:15
PROVIDERS: Family Provider Family Medicine; PCP Family Medicine; Referring Provider Internal Medicine Cardiovascular Disease; Visit Provider Internal Medicine Cardiovascular Disease
DX: I48.0 Paroxysmal atrial fibrillation (principal); I25.10 Atherosclerotic heart disease of native coronary artery without angina pectoris; Z95.2 Presence of prosthetic heart valve; Z95.1 Presence of aortocoronary bypass graft
CPT/HCPCS: 93798

== ENCOUNTER 2019-04-28 09:15 | Outpatient (RCR) | payer MEDICARE, OTHER, SELFPAY ==
[2019-03-13 12:45] VITALS: BMI 40.1
[2019-04-20 00:50] VITALS: BP 142/60
--- NOTE | 2019-04-28 10:19 | PCM.CR.ITP ---
General Information - General Information Admitting Diagnosis: CABG - Education/Goals Cardiac Rehabilitation Goals: 1. Maintain the individual as the primary focus of care. 2. To improve the patient's quality of life. 3. Identification of cardiac risk factors and provide cardiac risk factor management. 4. Enhance the psychosocial status of the patient. 5. Reconditioning enough to allow the patient to resume customary activities. 6. Control symptoms of cardiac disease Scale for measuring improvement of personal goals: Enter appropriate number in Comments. 2 = Unchanged. 3 = Slightly Better. 4 = Moderate Improvement. 5 = Met my Goal Exercise - 90-Day Assessment - Visit Date of Eval: 04/28/19 - 35 - Stages of Change Stages of Change:: Action - Physician Prescribed Exercise Modalities: Treadmill, Airdyne, NuStep Frequency (days/week): 3 Duration (Minutes):: 30-45 Intensity: 60-80% age predicted maximum heart rate reserve METs - Progression: 0.5-1.0 MET, RPE 11-14 WEEK: 2.7 Target Heart Rate:: 93-122 Max HR 82 - Hypertension Resting Blood Pressure:: 140/70 Peak Exercise Blood Pressure:: 164/82 - Intervention Home Exercise/Activity Goal:: Sitting Time <3 hrs/day - Education Goals:: Warm-up, RPE DIPAK Scale, S/S, Safe Exercise, Self-Monitoring - Exercise Program Goals Exercise Program Goals: Aerobic Activity >30 min, B/P <130/80 Nutrition - 90-Day Assessment - Program Goals Nutrition Program Goals: LDL <70. Total Cholesterol <200. HDL >45. Triglycerides <150. HgbA1C <7%. BMI <25 - Visit Date of Eval: 04/28/19 - Stages of Change Stages of Change:: Action - Diabetes Diabetes:: Yes - Weight Management Weight:: 132.676 kg - Intervention Referral to dietitian:: No Referral to Diabetic Clinic:: No Will attend diet classes:: Yes - Education Attended class for:: Signs & symptoms of hypoglycemia, Signs & symptoms of hyperglycemia, Relate diabetes to coronary artery disease, Healthy eating Tobacco - Initial Assessment - Program Goals Tobacco Program Goals: Complete smoking cessation. Attend education classes. Improve Knowledge Test score - Learning Barriers Learning Barriers: Hearing Tobacco - 90-Day Assessment - Program Goals Tobacco Program Goals: Complete smoking cessation. Attend education classes. Improve Knowledge Test score - Stage of Change Stages of Change:: Action - Learning Barriers Learning Barriers: Participates in education - Family Support Do you have family support?: Yes - Tobacco Use Do you use smokeless tobacco?: No - Intervention Smoking Cessation Referral:: No Individual Education/Counseling:: No Education Schedule Given:: Yes - Education Attended class for:: Treating Heart Disease, How The Heart Works, What it means to have Heart Disease, How Coronary Artery Disease is Diagnosed, Heart Procedures, What Heart Medications Do, Risk Factors & Modifications, Living an Active Life, Nutrition, Emotions & Heart Disease, Stress Management & Relaxation, Sleep Disorders & Heart Disease Psychosocial - Initial Assess - Target Goals Target Goals: Assess presence or absence of depression. Using a valid screening tool, maximizes coping skills. Positive support system - Psychosocial Test Tool Used:: HANDS Depression Questionnaire - Assistive Devices Fall Risk Assessed:: Yes Psychosocial - 90-Day Assess - Target Goals Target Goals: Assess presence or absence of depression. Using a valid screening tool, maximizes coping skills. Positive support system - Stages of Change Stages of Change:: Action - Psychosocial Test Tool Used:: HANDS Depression Questionnaire - Intervention PS - Interventions: Yes Attend Stress Management Classes, Yes Uses Stress Management Skills, No Referral to Mental Health, No Referral to [facility] Case Management, No Referral to Physician - Education Attended classes for:: Coping techniques, Signs & symptoms of depression, Stress management, Relaxation techniques - Assistive Devices Assistive Devices:: None Fall Risk Assessed:: Yes Patient Health Questionnaire 90-Day Re-eval Assessment 1. Little interest or pleasure in doing things: Several days 2. Feeling down, depressed, or hopeless: Not at all 3. Trouble falling or staying asleep, or sleeping too much: Not at all 4. Feeling tired or having little energy: Several days 5. Poor appetite or overeating: Not at all 6. Feeling bad about yourself -- or that you are a failure or have let yourself or your family down: Not at all 7. Trouble concentrating on things, such as reading the newspaper or watching television: Not at all 8. Moving or speaking so slowly that other people could have noticed. Or the opposite - being so fidgety or restless that you have been moving around a lot more than usual: Not at all 9. Thoughts that you would be better off , or of hurting yourself in some way: Not at all How difficult have these problems made it for you to do your work, take care of things at home, or get along with other people?: Not difficult at all Total Score: 2 Self-Efficacy 90-Day Re-eval Assessment We would like to know how confident you are in doing certain activities. Please select your confidence level for:: Select your confidence level for the following using the scale 1-10 where 1 is not at all confident and 10 is totally confident. Your score is the average of all 6 responses. Fatigue: How confident are you that you can keep the fatigue caused by your disease from interfering with the things you want to do? Select Number: 6 Physical Discomfort or Pain: How confident are you that you can keep the physical discomfort or pain of your disease from interfering with the things you want to do? Select Number: 9 Emotional Distress: How confident are you that you can keep the emotional distress caused by your disease from interfering with the things you want to do? Select Number: 8 Other Symptoms or Health Problems: How confident are you that you can keep other symptoms or health problems from interfering with the things you want to do? Select Number: 6 Different Tasks and Activities: How confident are you that you can do the different tasks and activities needed to manage your health condition so as to reduce your need to see a doctor? Select Number: 6 Medication: How confident are you that you can do things other than just taking medication to reduce how much your illness affects your everyday life? Select Number: 8 Total Score:: 7
[2019-04-28 10:24] VITALS: BP 140/70; BP 164/82
--- NOTE | 2019-04-28 10:47 | PCM.CR.ITP ---
Tobacco - Initial Assessment - Program Goals Tobacco Program Goals: Complete smoking cessation. Attend education classes. Improve Knowledge Test score - Learning Barriers Learning Barriers: Hearing Psychosocial - Initial Assess - Target Goals Target Goals: Assess presence or absence of depression. Using a valid screening tool, maximizes coping skills. Positive support system - Psychosocial Test Tool Used:: HANDS Depression Questionnaire - Assistive Devices Fall Risk Assessed:: Yes
== END 2019-05-19 23:59 ==
LOC: CR 09:15
PROVIDERS: Family Provider Family Medicine; PCP Family Medicine; Referring Provider Internal Medicine Cardiovascular Disease; Visit Provider Internal Medicine Cardiovascular Disease
DX: I48.0 Paroxysmal atrial fibrillation (principal); I25.10 Atherosclerotic heart disease of native coronary artery without angina pectoris; Z95.2 Presence of prosthetic heart valve; Z95.1 Presence of aortocoronary bypass graft
CPT/HCPCS: 93798

== ENCOUNTER 2019-05-09 10:48 | Outpatient (RCR) | payer MEDICARE, OTHER, SELFPAY ==
[2019-03-13 12:45] VITALS: BMI 40.1
[2019-04-25 11:30] LABS: International Normalized Ratio 1.8; Prothrombin Time (Protime)PT. 20.6 SECONDS (11.7-14.9)
[2019-05-02 09:56] LABS: International Normalized Ratio 1.6; Prothrombin Time (Protime)PT. 19.3 SECONDS (11.7-14.9)
[2019-05-09 11:44] LABS: International Normalized Ratio 1.6; Prothrombin Time (Protime)PT. 19.3 SECONDS (11.7-14.9)
== END 2019-05-19 18:00 | disposition home or self-care (01) ==
LOC: LAB 10:48
PROVIDERS: Family Provider Family Medicine; PCP Family Medicine; Referring Provider Internal Medicine Cardiovascular Disease; Visit Provider Internal Medicine Cardiovascular Disease
DX: I48.0 Paroxysmal atrial fibrillation (principal); Z79.01 Long term (current) use of anticoagulants
CPT/HCPCS: 36415; 85610

== ENCOUNTER 2019-05-19 11:11 | Emergency (ER) | payer MEDICARE, OTHER, SELFPAY ==
[2019-03-13 12:45] VITALS: BMI 40.1
[2019-05-19 11:12] VITALS: BP 152/75; PULSE 69; RESP 24; TEMP 36.4; O2SAT 97; BMI 40.6
--- NOTE | 2019-05-19 11:31 | CT_ITS ---
STUDY: CT BRAIN WITHOUT CONTRAST REASON FOR EXAM: Male, 79 years old. History of fall. The patient is on Coumadin. RADIATION DOSAGE (If Supplied By Facility): CTDIvol = ( 44.99 ) mGy, DLP = ( 863.60 ) mGycm TECHNIQUE: Transaxial CT imaging of the brain was performed without administration of intravenous contrast material. Individualized dose optimization techniques were used for this CT. COMPARISON: Comparison is made with prior study dated October 19, 2018. FINDINGS: Normal soft tissue structures. Normal calvarium. There is mild cerebral atrophy with widening of the extra-axial spaces and ventricular dilatation. There are areas of decreased attenuation within the white matter tracts of the supratentorial brain, consistent with microvascular disease changes. Bilateral lacunar infarcts of the basal ganglia. Normal brainstem. Normal cerebellum. There is no intracranial hemorrhage. There are no findings of an acute ischemic infarction. Atherosclerotic calcification of the vertebral arteries and cavernous portions of the internal carotid arteries bilaterally. Normal visualized paranasal sinuses. CT/Brain/Head without Contrast IMPRESSION: Chronic involutional changes of the brain. Electronically Signed: Apolinar Esteban, at 12:27 EDT , Service support ,
--- NOTE | 2019-05-19 11:32 | RAD_ITS ---
STUDY: X-RAY CHEST REASON FOR EXAM: Male, 79 years old. Syncope, confusion, shortness of breath TECHNIQUE: PA and lateral views of the chest. COMPARISON: 10/18/2018 FINDINGS: Status post median sternotomy. The lungs are clear and expanded. There is no demonstrated pleural abnormality. There is moderate cardiac enlargement. Normal mediastinum and eliseo. Normal visualized pulmonary arteries. Normal visualized aortic arch and descending thoracic aorta. Normal visualized thoracic spine. Normal visualized ribs, clavicles, and shoulders. There is no demonstrated abnormality of the visualized soft tissue structures of the upper abdomen. RAD/Chest PA and Lateral IMPRESSION: No active disease. Electronically Signed: Vishnu Tesfaye MD at 12:01 EDT Tel , Service support ,
--- NOTE | 2019-05-19 11:32 | EKG12_ITS ---
Test Reason : SOB Blood Pressure : / mmHG Vent. Rate : 068 BPM Atrial Rate : 068 BPM P-R Int : 218 ms QRS Dur : 092 ms QT Int : 420 ms P-R-T Axes : 027 039 081 degrees QTc Int : 446 ms Sinus rhythm with 1st degree A-V block Otherwise normal ECG Confirmed by ZELALEM SANDS, MARTINE ([id number]), newspaper copy editor DEYANIRA ROSALES ([id number]) on 05/21/2019 12:22:58 PM Referred By: [place] Confirmed By:MARTINE MASTERSON MD
--- NOTE | 2019-05-19 11:35 | ED.DCSUM_ITS ---
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 With known history of diastolic dysfunction. But no CHF reportedly. Patient is on Coumadin. Last several days he has not felt well and sometime this morning after midnight he was going to the bathroom and fell coming back into his bedroom and laid on the floor. He denies any injuries. He denies any headache or chest pain. states that he has had some shortness of breath the last day or so. They deny any headache or fever. No nausea, vomiting, abdominal pain or diarrhea. No melena. She was able to get him up and he was able to ambulate. Physical Examination: Older male no acute distress vital signs are stable afebrile. Pulse ox 97% on room air no signs of hypoxia. HEENT exam unremarkable atraumatic pupils round reactive light. There is no hematomas to his face or scalp. C-spine nontender. Lungs clear to auscultation bilaterally. Heart regular rhythm rate about 70 with a 3-4 systolic ejection murmur consistent with his aortic valve. Abdomen soft and nontender normal bowel sounds no peritoneal signs. Pelvic girdle intact. Hips nontender. No shortening or rotation. Normal tuck pointer helper strength of both upper extremities and range of motion. Normal dorsi plantarflexion range of motion lower extremities. Back is nontender. No signs of trauma to his back. Neurologically he knows month he knows where he has had any of the present [place]. He is following commands and acting appropriately. Normal speech. No facial droop. No focal motor deficits. Test Results: Chest x-ray no acute process read by myself and the radiologist. [address] brain chronic changes read by the radiologist and reviewed by me. EKG sinus rhythm rate of 68 with first-degree AV block. CBC normal white count 6. Hemoglobin 14. Chemistries unremarkable. Creatinine 1.3 normal gap. Patient is on Coumadin INR 2.2. UA normal. Troponin normal. BNP 219. CPK 131. Emergency Department Course and Treatment: Older male found down at home. Labs to be obtained. CAT scan of his head due to him being on Coumadin and laying face down. Also CPK due to him being down for several hours suspected. Repeat exam patient is doing well at both 1222 and 1402 p.m. He has been am bulating up and down the hallway without any difficulty. Discussed all test results with he and family and he will be discharged home with his . Treatment Plan: Follow-up with his doctor. Return if worse. Disposition: Discharge Impression: Fell at home with prolonged downtime History of CAD and CABG with aortic valve replaced Anticoagulated on Coumadin This note was generated with Pieceable dictation software. It may contain incorrect words, spelling, and punctuation that were not noted in review of the chart prior to signing ED Disposition - Plan for ED Patient: Referrals: Sanju Luna MD [Primary Care Provider] -
[2019-05-19 11:46] LABS: Absolute Lymphocyte Count 0.34 X10^3/uL (0.83-4.51); Absolute Neutrophil Count 5.5 X10^3/uL (2.0-7.7); Basophil# 0.02 X10^3/uL; Basophil% 0.3 % (0-1); Eosinophil# 0.06 X10^3/uL; Eosinophils% 0.9 % (0-5); Hematocrit 45.8 % (40-54); Hemoglobin 14.8 g/dL (13.0-16.5); Lymphocyte # 0.34 X10^3/ul (4.0); Lymphocyte % 5.1 % (19-41); Mean Corp Hgb Conc 32.3 g/dL (32-36); Mean Corpuscular Hgb 28.7 pg (27.0-32.0); Mean Corpuscular Volume 88.9 fL (80-94); Mean Platelet Vol. 10.6 fl (6.2-12.0); Monocyte# 0.79 X10^3/uL; Monocyte% 11.7 % (0-10); NRBC Flagged by Analyzer 0 % (0-5); Neutrophil # 5.47 X10^3/uL (2.7-7.7); Neutrophil % 81.3 % (47-70); POSITIVE DIFFERENTIAL YES; Platelet Count 122 K/mm3 (150-450); RBC Distribution Width SD 45.6 fl (35.1-43.9); Red Blood Count 5.15 M/mm3 (4.6-6.2); White Blood Count 6.7 K/mm3 (4.4-11.0)
[2019-05-19 11:51] LABS: Differential Indicated SCAN CRITERIA MET
[2019-05-19 11:52] LABS: International Normalized Ratio 2.2; Prothrombin Time (Protime)PT. 24.5 SECONDS (11.7-14.9)
[2019-05-19 12:01] LABS: Anion Gap 6 (5-15); BUN 18 mg/dL (7-18); BUN/Creat Ratio 13.1 RATIO (10-20); Calcium,Total 8.6 mg/dL (8.5-10.1); Chloride 103 mmol/L (98-107); Creatinine, Serum 1.37 mg/dL (0.70-1.30); EST Glomerular Filtration Rate 53 mL/min (>60); Est Glom Filt Rate - Afr Amer 65 mL/min (>60); Estimated Creatinine Clearance 47.33 ml/min; Glucose 152 mg/dL (74-106); Potassium 3.9 mmol/L (3.5-5.1); Sodium Level 135 mmol/L (136-145)
[2019-05-19 12:02] LABS: CPK Total, Creatine Kinase 131 U/L (39-308)
[2019-05-19 12:15] LABS: Platelet Estimate SLT DEC (ADEQ)
[2019-05-19 12:17] LABS: BNP,B-Type NATRIURETIC PEPTIDE 219.1 pg/mL (0-100)
[2019-05-19 12:18] LABS: Bacteria 0 SEEN /hpf (None Seen); Mucous, Urine 0 SEEN /hpf (<or=2+); Red Blood Cells-Urine 0 SEEN /hpf (0-5); Squamous Epithelial Cells - UA 0 SEEN /hpf (0-5); White Blood Cells 0 SEEN /hpf (0-5)
[2019-05-19 12:20] LABS: Color, Urine Yellow (Yellow); Glucose, Dipstick Normal (Normal); Ketone-Dipstick Negative (Negative); Leukocyte Esterase-Dipstick Negative /ul (Negative); Nitrite-Dipstick Negative (Negative); Occult Blood-Urine Negative /ul (Negative); Protein-Dipstick Negative (Negative); Urine Bilirubin Dipstick Negative (Negative); Urine Clarity Sl. Cloudy (Clear); Urine Urobilinogen Normal (Normal)
[2019-05-19] MEDS: Acetaminophen 500 MG Tablet 1000 MG PO (12:30)
[2019-05-19 13:24] VITALS: BP 126/93
--- NOTE | 2019-05-19 14:08 | ED.DEP ---
ED Disposition - Plan for ED Patient: Disposition: Home or Assisted Living Referrals: Sanju Luna MD [Primary Care Provider] - 3-5 Days if not improving Additional Instructions: Your labs, CAT scan x-rays today are unremarkable. Follow-up with your doctor or return if feeling worse.
== END 2019-05-19 14:13 | disposition home or self-care (01) ==
PROVIDERS: Emergency Provider Emergency Medicine; Family Provider Family Medicine; PCP Family Medicine
DX: R06.00 Dyspnea, unspecified (principal); R68.83 Chills (without fever); W19.XXXA Unspecified fall, initial encounter; Y93.9 Activity, unspecified; Y92.009 Unspecified place in unspecified non-institutional (private) residence as the place of occurrence of the external cause; I44.0 Atrioventricular block, first degree; I25.10 Atherosclerotic heart disease of native coronary artery without angina pectoris; I25.2 Old myocardial infarction; Z86.73 Personal history of transient ischemic attack (TIA), and cerebral infarction without residual deficits; Z95.1 Presence of aortocoronary bypass graft; Z95.2 Presence of prosthetic heart valve; Z79.01 Long term (current) use of anticoagulants; Z79.899 Other long term (current) drug therapy
CPT/HCPCS: 70450; 71046; 80048; 81001; 82550; 83880; 84484; 85025; 85610; 93005; 99285; J7030; P9612; A4216

== ENCOUNTER 2019-06-13 09:52 | Outpatient (RCR) | payer MEDICARE, OTHER, SELFPAY ==
[2019-05-23 13:03] LABS: International Normalized Ratio 2.5; Prothrombin Time (Protime)PT. 26.9 SECONDS (11.7-14.9)
[2019-05-23 13:15] LABS: Cholesterol 130 mg/dL (200); High Density Lipoprotein 29 mg/dL; Triglycerides 162 mg/dL; Very Low Density Lipoprotein 32 mg/dL (5-40)
[2019-06-13 10:36] LABS: International Normalized Ratio 2.1; Prothrombin Time (Protime)PT. 23.8 SECONDS (11.7-14.9)
== END 2019-06-13 18:00 | disposition home or self-care (01) ==
LOC: LAB 09:52
PROVIDERS: Family Provider Family Medicine; PCP Family Medicine; Referring Provider Internal Medicine Cardiovascular Disease; Visit Provider Internal Medicine Cardiovascular Disease
DX: I48.0 Paroxysmal atrial fibrillation (principal); Z79.01 Long term (current) use of anticoagulants; R73.9 Hyperglycemia, unspecified; I25.10 Atherosclerotic heart disease of native coronary artery without angina pectoris
CPT/HCPCS: 36415; 80061; 83036; 85610

== ENCOUNTER 2019-07-11 14:30 | Outpatient (RCR) | payer MEDICARE, OTHER, SELFPAY ==
[2019-07-11 12:17] VITALS: BMI 40.6
[2019-07-11 15:32] LABS: Prothrombin Time (Protime)PT. 22.2 SECONDS (11.7-14.9)
== END 2019-07-11 18:00 | disposition home or self-care (01) ==
LOC: LAB 14:30
PROVIDERS: Family Provider Family Medicine; PCP Family Medicine; Referring Provider Internal Medicine Cardiovascular Disease; Visit Provider Internal Medicine Cardiovascular Disease
DX: I48.0 Paroxysmal atrial fibrillation (principal); Z79.01 Long term (current) use of anticoagulants
CPT/HCPCS: 36415; 85610

== ENCOUNTER 2019-08-04 11:01 | Outpatient (RCR) | payer MEDICARE, OTHER, SELFPAY ==
[2019-08-04 11:45] LABS: Prothrombin Time (Protime)PT. 22.6 SECONDS (11.7-14.9)
== END 2019-08-04 18:00 | disposition home or self-care (01) ==
LOC: LAB 11:01
PROVIDERS: Family Provider Family Medicine; PCP Family Medicine; Referring Provider Internal Medicine Cardiovascular Disease; Visit Provider Internal Medicine Cardiovascular Disease
DX: I48.0 Paroxysmal atrial fibrillation (principal); Z79.01 Long term (current) use of anticoagulants
CPT/HCPCS: 36415; 85610

== ENCOUNTER 2019-09-17 09:55 | Outpatient (RCR) | payer MEDICARE, SELFPAY ==
[2019-08-25 11:40] LABS: International Normalized Ratio 2.4; Prothrombin Time (Protime)PT. 26.3 SECONDS (11.7-14.9)
[2019-09-17 10:31] LABS: International Normalized Ratio 2.6; Prothrombin Time (Protime)PT. 27.5 SECONDS (11.7-14.9)
== END 2019-09-17 18:00 | disposition home or self-care (01) ==
LOC: LAB 09:55
PROVIDERS: Family Provider Family Medicine; PCP Family Medicine; Referring Provider Internal Medicine Cardiovascular Disease; Visit Provider Internal Medicine Cardiovascular Disease
DX: I48.0 Paroxysmal atrial fibrillation (principal); Z79.01 Long term (current) use of anticoagulants
CPT/HCPCS: 36415; 85610

== ENCOUNTER 2019-10-15 09:39 | Outpatient (RCR) | payer MEDICARE, SELFPAY ==
[2019-10-15 10:44] LABS: International Normalized Ratio 1.8; Prothrombin Time (Protime)PT. 20.9 SECONDS (11.7-14.9)
== END 2019-10-15 18:00 | disposition home or self-care (01) ==
LOC: LAB 09:39
PROVIDERS: Family Provider Family Medicine; PCP Family Medicine; Referring Provider Internal Medicine Cardiovascular Disease; Visit Provider Internal Medicine Cardiovascular Disease
DX: I48.0 Paroxysmal atrial fibrillation (principal); Z79.01 Long term (current) use of anticoagulants
CPT/HCPCS: 36415; 85610

== ENCOUNTER 2019-11-03 14:22 | Outpatient (RCR) | payer MEDICARE, SELFPAY ==
[2019-11-03 14:48] LABS: International Normalized Ratio 2.9; Prothrombin Time (Protime)PT. 30.5 SECONDS (11.7-14.9)
== END 2019-11-03 18:00 | disposition home or self-care (01) ==
LOC: LAB 14:22
PROVIDERS: Family Provider Family Medicine; PCP Family Medicine; Referring Provider Internal Medicine Cardiovascular Disease; Visit Provider Internal Medicine Cardiovascular Disease
DX: I48.0 Paroxysmal atrial fibrillation (principal); Z79.01 Long term (current) use of anticoagulants
CPT/HCPCS: 36415; 85610

== ENCOUNTER 2019-12-03 08:30 | Outpatient (RCR) | payer MEDICARE, SELFPAY ==
[2019-12-03 09:27] LABS: International Normalized Ratio 2.4; Prothrombin Time (Protime)PT. 25.7 SECONDS (11.7-14.9)
[2019-12-03 09:45] LABS: AST(SGOT) 25 U/L (15-37); Alanine Aminotransfer ALT/SGPT 32 U/L (16-61); Albumin, Serum 3.6 g/dL (3.2-5.0); Alkaline Phosphatase 78 U/L (45-117); Bilirubin, Direct 0.15 mg/dL (0.00-0.30); Globulin 3.5 g/dL (2.2-4.2); Protein, Total 7.1 g/dL (6.4-8.2)
== END 2019-12-18 18:00 | disposition home or self-care (01) ==
LOC: LAB 08:30
PROVIDERS: Physician Assistant Medical; Family Provider Family Medicine; PCP Family Medicine; Referring Provider Internal Medicine Cardiovascular Disease; Visit Provider Internal Medicine Cardiovascular Disease
DX: I48.0 Paroxysmal atrial fibrillation (principal); Z79.01 Long term (current) use of anticoagulants
CPT/HCPCS: 36415; 80076; 85610

== ENCOUNTER 2019-12-24 08:03 | Outpatient (RCR) | payer MEDICARE, SELFPAY ==
[2019-12-24 08:52] LABS: International Normalized Ratio 2.2; Prothrombin Time (Protime)PT. 24.1 SECONDS (11.7-14.9)
[2019-12-24 09:28] LABS: Cholesterol 197 mg/dL (200); High Density Lipoprotein 37 mg/dL; Triglycerides 297 mg/dL; Very Low Density Lipoprotein 59 mg/dL (5-40)
== END 2019-12-24 18:00 | disposition home or self-care (01) ==
LOC: LAB 08:03
PROVIDERS: Physician Assistant Medical; Family Provider Family Medicine; PCP Family Medicine; Referring Provider Internal Medicine Cardiovascular Disease; Visit Provider Internal Medicine Cardiovascular Disease
DX: I48.0 Paroxysmal atrial fibrillation (principal); Z79.01 Long term (current) use of anticoagulants; E78.00 Pure hypercholesterolemia, unspecified
CPT/HCPCS: 36415; 80061; 85610

== ENCOUNTER 2020-01-21 10:49 | Outpatient (RCR) | payer MEDICARE, SELFPAY ==
[2020-01-21 12:35] LABS: International Normalized Ratio 2.4
== END 2020-01-21 18:00 | disposition home or self-care (01) ==
LOC: LAB 10:49
PROVIDERS: Family Provider Family Medicine; PCP Family Medicine; Referring Provider Internal Medicine Cardiovascular Disease; Visit Provider Internal Medicine Cardiovascular Disease
DX: I48.0 Paroxysmal atrial fibrillation (principal); Z79.01 Long term (current) use of anticoagulants; Z95.2 Presence of prosthetic heart valve
CPT/HCPCS: 36415; 85610

== ENCOUNTER 2020-03-03 08:46 | Outpatient (RCR) | payer MEDICARE, SELFPAY ==
[2020-01-27 10:28] VITALS: BMI 42.0
[2020-03-03 09:58] LABS: International Normalized Ratio 2.5; Prothrombin Time (Protime)PT. 26.8 SECONDS (11.7-14.9)
== END 2020-03-03 18:00 | disposition home or self-care (01) ==
LOC: LAB 08:46
PROVIDERS: Family Provider Family Medicine; PCP Family Medicine; Referring Provider Internal Medicine Cardiovascular Disease; Visit Provider Internal Medicine Cardiovascular Disease
DX: I48.0 Paroxysmal atrial fibrillation (principal); Z79.01 Long term (current) use of anticoagulants; Z95.2 Presence of prosthetic heart valve
CPT/HCPCS: 36415; 85610

== ENCOUNTER 2020-04-02 09:24 | Outpatient (RCR) | payer MEDICARE, SELFPAY ==
[2020-01-27 10:28] VITALS: BMI 42.0
[2020-04-02 10:18] LABS: International Normalized Ratio 2.1; Prothrombin Time (Protime)PT. 23.1 SECONDS (11.7-14.9)
== END 2020-04-19 18:00 | disposition home or self-care (01) ==
LOC: LAB 09:24
PROVIDERS: Family Provider Family Medicine; PCP Family Medicine; Referring Provider Internal Medicine Cardiovascular Disease; Visit Provider Internal Medicine Cardiovascular Disease
DX: I48.0 Paroxysmal atrial fibrillation (principal); Z79.01 Long term (current) use of anticoagulants; Z95.2 Presence of prosthetic heart valve
CPT/HCPCS: 36415; 85610

== ENCOUNTER 2020-05-05 09:37 | Outpatient (RCR) | payer MEDICARE, SELFPAY ==
[2020-01-27 10:28] VITALS: BMI 42.0
[2020-05-05 10:39] LABS: International Normalized Ratio 2.4; Prothrombin Time (Protime)PT. 25.3 SECONDS (11.7-14.9)
== END 2020-05-05 18:00 | disposition home or self-care (01) ==
LOC: LAB 09:37
PROVIDERS: Family Provider Family Medicine; PCP Family Medicine; Referring Provider Internal Medicine Cardiovascular Disease; Visit Provider Internal Medicine Cardiovascular Disease
DX: I48.0 Paroxysmal atrial fibrillation (principal); Z95.2 Presence of prosthetic heart valve; Z79.01 Long term (current) use of anticoagulants
CPT/HCPCS: 36415; 85610

== ENCOUNTER 2020-06-07 08:57 | Outpatient (RCR) | payer MEDICARE, SELFPAY ==
[2020-01-27 10:28] VITALS: BMI 42.0
[2020-05-27 11:36] LABS: International Normalized Ratio 3.2; Prothrombin Time (Protime)PT. 32.5 SECONDS (11.7-14.9)
[2020-06-07 09:40] LABS: International Normalized Ratio 2.3; Prothrombin Time (Protime)PT. 25.1 SECONDS (11.7-14.9)
[2020-06-07 10:25] LABS: AST(SGOT) 23 U/L (15-37); Alanine Aminotransfer ALT/SGPT 30 U/L (16-61); Albumin, Serum 3.6 g/dL (3.2-5.0); Alkaline Phosphatase 76 U/L (45-117); Bilirubin, Direct 0.14 mg/dL (0.00-0.30); Cholesterol 201 mg/dL (200); Globulin 3.7 g/dL (2.2-4.2); High Density Lipoprotein 46 mg/dL; Protein, Total 7.3 g/dL (6.4-8.2); Triglycerides 350 mg/dL; Very Low Density Lipoprotein 70 mg/dL (5-40)
== END 2020-06-07 18:00 | disposition home or self-care (01) ==
LOC: LAB 08:57
PROVIDERS: Physician Assistant Medical; Family Provider Family Medicine; PCP Family Medicine; Referring Provider Internal Medicine Cardiovascular Disease; Visit Provider Internal Medicine Cardiovascular Disease
DX: I48.0 Paroxysmal atrial fibrillation (principal); Z95.2 Presence of prosthetic heart valve; Z79.01 Long term (current) use of anticoagulants; E78.00 Pure hypercholesterolemia, unspecified
CPT/HCPCS: 36415; 80061; 80076; 85610

== ENCOUNTER 2020-06-22 09:38 | Outpatient (RCR) | payer MEDICARE, SELFPAY ==
[2020-01-27 10:28] VITALS: BMI 42.0
[2020-06-22 10:15] LABS: International Normalized Ratio 2.7; Prothrombin Time (Protime)PT. 28.3 SECONDS (11.7-14.9)
== END 2020-06-22 18:00 | disposition home or self-care (01) ==
LOC: LAB 09:38
PROVIDERS: Family Provider Family Medicine; PCP Family Medicine; Referring Provider Internal Medicine Cardiovascular Disease; Visit Provider Internal Medicine Cardiovascular Disease
DX: I48.0 Paroxysmal atrial fibrillation (principal); Z95.2 Presence of prosthetic heart valve; Z79.01 Long term (current) use of anticoagulants
CPT/HCPCS: 36415; 85610

== ENCOUNTER 2020-08-02 09:45 | Outpatient (RCR) | payer MEDICARE, SELFPAY ==
[2020-01-27 10:28] VITALS: BMI 42.0
[2020-08-02 10:20] LABS: International Normalized Ratio 2.9; Prothrombin Time (Protime)PT. 30.1 SECONDS (11.7-14.9)
== END 2020-08-02 18:00 | disposition home or self-care (01) ==
LOC: LAB 09:45
PROVIDERS: Family Provider Family Medicine; PCP Family Medicine; Referring Provider Internal Medicine Cardiovascular Disease; Visit Provider Internal Medicine Cardiovascular Disease
DX: I48.0 Paroxysmal atrial fibrillation (principal); Z95.2 Presence of prosthetic heart valve; Z79.01 Long term (current) use of anticoagulants
CPT/HCPCS: 36415; 85610

== ENCOUNTER 2020-09-07 10:49 | Outpatient (RCR) | payer MEDICARE, SELFPAY ==
[2020-01-27 10:28] VITALS: BMI 42.0
[2020-09-07 11:26] LABS: International Normalized Ratio 2.3; Prothrombin Time (Protime)PT. 25.2 SECONDS (11.7-14.9)
== END 2020-09-07 18:00 | disposition home or self-care (01) ==
LOC: LAB 10:49
PROVIDERS: Family Provider Family Medicine; PCP Family Medicine; Referring Provider Internal Medicine Cardiovascular Disease; Visit Provider Internal Medicine Cardiovascular Disease
DX: I48.0 Paroxysmal atrial fibrillation (principal); Z95.2 Presence of prosthetic heart valve; Z79.01 Long term (current) use of anticoagulants
CPT/HCPCS: 36415; 85610

== ENCOUNTER 2020-10-15 10:56 | Outpatient (RCR) | payer MEDICARE, SELFPAY ==
[2020-09-14 14:46] VITALS: BMI 43.3
[2020-10-15 11:24] LABS: International Normalized Ratio 2.3; Prothrombin Time (Protime)PT. 24.7 SECONDS (11.7-14.9)
[2020-10-15 11:40] LABS: Anion Gap 4 (5-15); BUN 23 mg/dL (7-18); BUN/Creat Ratio 17.6 RATIO (10-20); Calcium,Total 9.1 mg/dL (8.5-10.1); Chloride 103 mmol/L (98-107); Creatinine, Serum 1.31 mg/dL (0.70-1.30); EST Glomerular Filtration Rate 56 mL/min (>60); Est Glom Filt Rate - Afr Amer 68 mL/min (>60); Glucose 159 mg/dL (74-106); Potassium 4.2 mmol/L (3.5-5.1); Sodium Level 138 mmol/L (136-145)
== END 2020-10-15 18:00 | disposition home or self-care (01) ==
LOC: LAB 10:56
PROVIDERS: Family Provider Family Medicine; PCP Family Medicine; Referring Provider Internal Medicine Cardiovascular Disease; Visit Provider Internal Medicine Cardiovascular Disease
DX: I48.0 Paroxysmal atrial fibrillation (principal); Z95.2 Presence of prosthetic heart valve; Z79.01 Long term (current) use of anticoagulants; I11.0 Hypertensive heart disease with heart failure; I50.32 Chronic diastolic (congestive) heart failure
CPT/HCPCS: 36415; 80048; 85610

== ENCOUNTER 2020-11-19 10:28 | Outpatient (RCR) | payer MEDICARE, SELFPAY ==
[2020-09-14 14:46] VITALS: BMI 43.3
[2020-11-19 10:50] LABS: International Normalized Ratio 2.2; Prothrombin Time (Protime)PT. 23.3 SECONDS (11.7-14.9)
== END 2020-11-19 18:00 | disposition home or self-care (01) ==
LOC: LAB 10:28
PROVIDERS: Family Provider Family Medicine; PCP Family Medicine; Referring Provider Internal Medicine Cardiovascular Disease; Visit Provider Internal Medicine Cardiovascular Disease
DX: I48.0 Paroxysmal atrial fibrillation (principal); Z95.2 Presence of prosthetic heart valve; Z79.01 Long term (current) use of anticoagulants
CPT/HCPCS: 36415; 85610

== ENCOUNTER 2021-01-05 12:38 | Outpatient (RCR) | payer MEDICARE, SELFPAY ==
[2020-09-14 14:46] VITALS: BMI 43.3
[2020-12-21 09:22] LABS: International Normalized Ratio 3.3; Prothrombin Time (Protime)PT. 32.4 SECONDS (11.7-14.9)
[2020-12-21 09:42] LABS: AST(SGOT) 27 U/L (15-37); Alanine Aminotransfer ALT/SGPT 31 U/L (16-61); Albumin, Serum 3.4 g/dL (3.2-5.0); Alkaline Phosphatase 74 U/L (45-117); Bilirubin, Direct 0.18 mg/dL (0.00-0.30); Cholesterol 166 mg/dL (200); Globulin 3.6 g/dL (2.2-4.2); High Density Lipoprotein 37 mg/dL; Triglycerides 245 mg/dL; Very Low Density Lipoprotein 49 mg/dL (5-40)
[2021-01-05 14:22] LABS: International Normalized Ratio 2.7; Prothrombin Time (Protime)PT. 28.2 SECONDS (11.7-14.9)
== END 2021-01-05 18:00 | disposition home or self-care (01) ==
LOC: LAB 12:38
PROVIDERS: Physician Assistant Medical; Family Provider Family Medicine; PCP Family Medicine; Referring Provider Internal Medicine Cardiovascular Disease; Visit Provider Internal Medicine Cardiovascular Disease
DX: I48.0 Paroxysmal atrial fibrillation (principal); Z95.2 Presence of prosthetic heart valve; Z79.01 Long term (current) use of anticoagulants; E78.00 Pure hypercholesterolemia, unspecified
CPT/HCPCS: 36415; 80061; 80076; 85610

== ENCOUNTER 2021-01-27 10:17 | Outpatient (RCR) | payer MEDICARE, SELFPAY ==
[2020-09-14 14:46] VITALS: BMI 43.3
[2021-01-27 11:55] LABS: International Normalized Ratio 2.1; Prothrombin Time (Protime)PT. 22.7 SECONDS (11.7-14.9)
== END 2021-01-27 18:00 | disposition home or self-care (01) ==
LOC: LAB 10:17
PROVIDERS: Family Provider Family Medicine; PCP Family Medicine; Referring Provider Internal Medicine Cardiovascular Disease; Visit Provider Internal Medicine Cardiovascular Disease
DX: I48.0 Paroxysmal atrial fibrillation (principal); Z79.01 Long term (current) use of anticoagulants
CPT/HCPCS: 36415; 85610

== ENCOUNTER 2021-03-04 09:04 | Outpatient (RCR) | payer MEDICARE, SELFPAY ==
[2020-09-14 14:46] VITALS: BMI 43.3
[2021-03-04 09:38] LABS: International Normalized Ratio 2.3; Prothrombin Time (Protime)PT. 24.8 SECONDS (11.7-14.9)
== END 2021-03-04 18:00 | disposition home or self-care (01) ==
LOC: LAB 09:04
PROVIDERS: Family Provider Family Medicine; PCP Family Medicine; Referring Provider Internal Medicine Cardiovascular Disease; Visit Provider Internal Medicine Cardiovascular Disease
DX: I48.0 Paroxysmal atrial fibrillation (principal); Z79.01 Long term (current) use of anticoagulants
CPT/HCPCS: 36415; 85610

== ENCOUNTER 2021-04-08 09:39 | Outpatient (RCR) | payer MEDICARE, SELFPAY ==
[2021-03-15 09:57] VITALS: BMI 43.3
[2021-04-08 10:33] LABS: International Normalized Ratio 2.2; Prothrombin Time (Protime)PT. 23.2 SECONDS (11.7-14.9)
== END 2021-04-08 18:00 | disposition home or self-care (01) ==
LOC: LAB 09:39
PROVIDERS: Family Provider Family Medicine; PCP Family Medicine; Referring Provider Internal Medicine Cardiovascular Disease; Visit Provider Internal Medicine Cardiovascular Disease
DX: I48.0 Paroxysmal atrial fibrillation (principal); Z79.01 Long term (current) use of anticoagulants
CPT/HCPCS: 36415; 85610

== ENCOUNTER 2021-05-11 11:34 | Outpatient (RCR) | payer MEDICARE, SELFPAY ==
[2021-04-20 00:34] VITALS: BMI 43.3
[2021-05-11 13:24] LABS: Prothrombin Time (Protime)PT. 22.2 SECONDS (11.7-14.9)
== END 2021-05-11 18:00 | disposition home or self-care (01) ==
LOC: LAB 11:34
PROVIDERS: Family Provider Family Medicine; PCP Family Medicine; Referring Provider Internal Medicine Cardiovascular Disease; Visit Provider Internal Medicine Cardiovascular Disease
DX: I48.0 Paroxysmal atrial fibrillation (principal); Z79.01 Long term (current) use of anticoagulants
CPT/HCPCS: 36415; 85610

== ENCOUNTER 2021-06-08 11:10 | Outpatient (RCR) | payer MEDICARE, SELFPAY ==
[2021-05-20 00:37] VITALS: BMI 43.3
[2021-06-08 12:21] LABS: International Normalized Ratio 2.2; Prothrombin Time (Protime)PT. 23.8 SECONDS (11.7-14.9)
== END 2021-06-19 05:16 | disposition home or self-care (01) ==
LOC: LAB 11:10
PROVIDERS: Family Provider Family Medicine; PCP Family Medicine; Referring Provider Internal Medicine Cardiovascular Disease; Visit Provider Internal Medicine Cardiovascular Disease
DX: I48.0 Paroxysmal atrial fibrillation (principal); Z79.01 Long term (current) use of anticoagulants
CPT/HCPCS: 36415; 85610

== ENCOUNTER 2021-07-12 09:23 | Outpatient (RCR) | payer MEDICARE, SELFPAY ==
[2021-06-19 05:16] VITALS: BMI 43.3
[2021-07-12 10:14] LABS: International Normalized Ratio 2.3; Prothrombin Time (Protime)PT. 24.5 SECONDS (11.7-14.9)
[2021-07-12 10:44] LABS: AST(SGOT) 19 U/L (15-37); Alanine Aminotransfer ALT/SGPT 24 U/L (16-61); Albumin, Serum 3.3 g/dL (3.2-5.0); Alkaline Phosphatase 89 U/L (45-117); Bilirubin, Direct 0.12 mg/dL (0.00-0.30); Cholesterol 175 mg/dL (200); Globulin 4.2 g/dL (2.2-4.2); High Density Lipoprotein 40 mg/dL; Protein, Total 7.5 g/dL (6.4-8.2); Triglycerides 305 mg/dL; Very Low Density Lipoprotein 61 mg/dL (5-40)
== END 2021-07-19 18:00 | disposition home or self-care (01) ==
LOC: LAB 09:23
PROVIDERS: Physician Assistant Medical; Family Provider Family Medicine; PCP Family Medicine; Referring Provider Internal Medicine Cardiovascular Disease; Visit Provider Internal Medicine Cardiovascular Disease
DX: I48.0 Paroxysmal atrial fibrillation (principal); E78.00 Pure hypercholesterolemia, unspecified; Z79.01 Long term (current) use of anticoagulants
CPT/HCPCS: 36415; 80061; 80076; 85610

== ENCOUNTER 2021-08-23 10:56 | Outpatient (RCR) | payer MEDICARE, SELFPAY ==
[2021-07-20 03:50] VITALS: BMI 43.3
[2021-08-23 12:12] LABS: International Normalized Ratio 2.3; Prothrombin Time (Protime)PT. 24.8 SECONDS (11.7-14.9)
== END 2021-09-19 18:00 | disposition home or self-care (01) ==
LOC: LAB 10:56
PROVIDERS: Family Provider Family Medicine; PCP Family Medicine; Referring Provider Internal Medicine Cardiovascular Disease; Visit Provider Internal Medicine Cardiovascular Disease
DX: I48.0 Paroxysmal atrial fibrillation (principal); Z79.01 Long term (current) use of anticoagulants
CPT/HCPCS: 36415; 85610

== ENCOUNTER 2021-09-11 14:46 | Inpatient (IN) | payer MEDICARE, SELFPAY ==
[2021-09-11] VITALS (9 sets, daily range): BP systolic 125–138; BP diastolic 52–86; PULSE 58–72; RESP 15–18; TEMP 36.3–37.2; O2SAT 93–98; BMI 41.8; BMI 38.7
--- NOTE | 2021-09-11 15:35 | CT_ITS ---
STUDY: CT BRAIN WITHOUT CONTRAST REASON FOR EXAM: Male, 81 years old. Pain after trauma RADIATION DOSAGE (If Supplied By Facility): CTDIvol = ( 44.99 ) mGy, DLP = ( 2489.56 ) mGycm TECHNIQUE: Transaxial CT imaging of the brain was performed without administration of intravenous contrast material. Individualized dose optimization techniques were used for this CT. COMPARISON: 05/19/2019 FINDINGS: There is no intra-/extra-axial fluid collection, mass effect, or midline shift. The villa/white matter junction is preserved. Hypoattenuation of periventricular and subcortical white matter suggestive of chronic small vessel ischemic disease. Mild diffuse parenchymal volume loss is noted. There is vascular calcification. The basal cisterns are patent. Small polyps versus retention cysts are noted in the left maxillary sinus. Other visualized paranasal sinuses and mastoid air cells are clear.. The calvarium is intact. CT/Brain/Head without Contrast IMPRESSION: No acute intracranial finding. Electronically Signed: Manuel Scott MD at 17:27 EST Tel , Service support ,
--- NOTE | 2021-09-11 15:35 | EKG12_ITS ---
Test Reason : Blood Pressure : / mmHG Vent. Rate : 066 BPM Atrial Rate : 066 BPM P-R Int : 196 ms QRS Dur : 088 ms QT Int : 458 ms P-R-T Axes : 023 028 067 degrees QTc Int : 480 ms Normal sinus rhythm Prolonged QT Abnormal ECG When compared with ECG of 19-MAY-2019 11:57, No significant change was found Confirmed by XIMENA SANDS, RONAK ([id number]), brands editor AWILDA REY ([id number]) on 09/16/2021 1:12:13 PM Referred By: TRISHA Confirmed By:ARIADNE BUENO MD
--- NOTE | 2021-09-11 15:35 | RAD_ITS ---
STUDY: X-RAY CHEST REASON FOR EXAM: Male, 81 years old. cough TECHNIQUE: 1 view COMPARISON: 05/19/2019 FINDINGS: The cardiac silhouette is enlarged. Costophrenic angles are sharp. Lungs are clear. The trachea is midline. There is no pneumothorax. Sternotomy wires are grossly intact. RAD/Chest 1 View (Portable) IMPRESSION: Cardiomegaly. No acute pulmonary process. Electronically Signed: Manuel Scott MD at 17:47 EST Tel , Service support ,
--- NOTE | 2021-09-11 15:38 | EDS_ITS ---
HPI HPI - URI History of Present Illness Chief Complaint: Weakness Informant: patient and spouse/S.O. Onset/Context/Timing Onset: Days Context: Gradual Onset Timing: Continuous Current Severity: Mild Maximum Severity: Moderate Associated Symptoms Associated Symptoms: Positive for Shortness of Breath and Productive Cough Narrative Narrative: 81-year-old male with extensive past medical history CAD, CHF, hypertension, CA, diabetes, CABG and on the blood thinner Coumadin. There is no been feeling well since Sunday had a temperature of 100.5. Today he got weak and fell striking his face on the floor causing a laceration. He had a negative COVID test at home the other day. He has had a cough and's of clear sputum. He denies any chest pain he is mildly short of breath. Denies any hemoptysis. She says he feels weak all over. Denies any vomiting or diarrhea. No dysuria. Prior similar symptoms: Yes Recent Illness/Hospitalization: No ROS ROS ED ROS Narrative Fever. Cough. Weakness. Review of Systems ROS Unobtainable: Denies due to encephalopathy Constitutional Constitutional ED: Reports fever(s) Eyes Eyes: Denies change in vision ENT ENT ED: Denies ear pain, rhinorrhea or sore throat Cardiovascular Cardiovascular: Denies chest pain or palpitations Respiratory/Chest Respiratory/Chest: Reports cough, dyspnea and sputum Gastrointestinal Gastrointestinal: Denies abdominal pain, diarrhea, nausea or vomiting Genitourinary Genitourinary ED: Denies dysuria or hematuria Musculoskeletal Musculoskeletal: Denies myalgias Integumentary Denies rash Neurologic Neurologic: Denies headache(s) Psychiatric Psychiatric: Denies anxiety or depression Endocrine Endocrinology: Denies polyuria Hematologic/Lymphatic Hematologic/Lymphatic: Denies easy bruising Allergic/Immunologic Allergic/Immunologic ED: Denies urticaria [facility] Medical History (Updated 09/11/21 @ 18:[address] Christian Smith MD) Atherosclerosis of coronary artery of [place] heart without angina pectoris Chronic diastolic (congestive) heart failure Chronic renal insufficiency Dyspnea Essential (primary) hypertension History of CVA (cerebrovascular accident) (2010) Hyperlipidemia Hyperlipidemia Left leg cellulitis Non-rheumatic aortic stenosis Non-ST elevation (NSTEMI) myocardial infarction (10/18/18) Obesity Obstructive sleep apnea Paroxysmal atrial fibrillation Postoperative atrial fibrillation Type 2 diabetes mellitus Ulcer of left lower extremity with fat layer exposed Venous insufficiency of both lower extremities Venous insufficiency of left leg Home Medications multivitamin with minerals 1 tab PO DAILY 10/18/18 [History Last Taken 10/18/18 08:00] metformin 500 mg tablet 500 mg PO DAILY tab 11/08/18 [History Last Taken Unknown] simvastatin 40 mg tablet 40 mg PO QHS 11/08/18 [History Last Taken 01/14/19 22:00] metoprolol tartrate 50 mg tablet 50 mg PO BID tab 11/29/18 [History Last Taken 01/15/19] magnesium oxide 400 mg PO BID #180 cap 01/03/19 [Rx Last Taken Unknown] warfarin 2.5 mg PO SUSA 05/19/19 [History Last Taken Unknown] warfarin 5 mg tablet 10 mg PO DAILY #180 tab 01/25/21 [Rx Last Taken Unknown] bumetanide 1 mg tablet 1 mg PO DAILY #90 tab 03/15/21 [Rx Last Taken Unknown] silver sulfadiazine 1 % topical cream 1 applic TOPICAL DAILY #85 g 03/15/21 [Rx Last Taken Unknown] spironolactone 50 mg tablet 50 mg PO DAILY #90 tab 09/02/21 [Rx Last Taken Unknown] Allergy/AdvReac Type Severity Reaction Status Date / Time No Known Allergies Allergy Verified 03/15/21 09:54 Surgical History (Updated 09/11/21 @ 18:[address] 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 Vital signs are stable he is afebrile he does look septic or toxic. Pulse ox 93% on room air no hypoxia. H EENT exam is abrasion superficial laceration right cheek that'll need to be cleaned off there is a large dried blood to see if indeed it is repaired. Pupils are round reactive to light. Scalp is nontender no signs of trauma. Dry mucous membranes. C-spine nontender. Trachea midline. Lungs clear to auscultation bilaterally. Heart regular rhythm rate about 70 no murmur. Abdomen soft nontender normal bowel sounds no peritoneal signs. Chest wall nontender. Pelvic girdle intact. Remedies moves all 4. No deformity. 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 Normal dorsi plantarflexion. No drift. Back nontender. Neurologically he is awake and alert with no focal motor deficits. Const Vital Signs: 09/11/21 14:47 09/11/21 14:49 09/11/21 14:50 Temperature 98.0 F 98.0 F Temperature Source Temporal Temporal Pulse Rate 67 67 Respiratory Rate 15 15 Respiratory Effort Short of Breath Respiratory Pattern Normal Blood Pressure 125/68 H 125/68 H Blood Pressure Mean 87 87 Pulse Ox 93 93 Oxygen Delivery Method Room Air Room Air 09/11/21 15:35 09/11/21 17:00 Temperature 98.4 F 97.4 F L Temperature Source Temporal Temporal Pulse Rate 62 68 Respiratory Rate 18 16 Respiratory Effort Respiratory Pattern Blood Pressure 136/82 H 126/72 H Blood Pressure Mean 100 90 Pulse Ox 94 94 Oxygen Delivery Method Room Air Room Air Positive well nourished, well developed and obese; Negative for cachectic or contractures General Appearance ED: well developed and NAD; Negative for cachectic, contractures, cyanotic, diaphoretic or pallor Nutritional Appearance: obese; Negative for cachectic HEENT Reports dry mucous membranes HEENT Narrative: Right facial abrasion. normocephalic; Negative for atraumatic External Ear: external ears normal Mouth ED: Yes dry mucous membranes Mouth: dry mucous membranes Eyes PERRL and EOMs intact bilaterally General Eye ED: Negative for pale conjunctiva or scleral icterus Neck no lymphadenopathy, supple, no meningeal signs and no JVD General: Negative for anterior neck swelling or lymphadenopathy Resp normal respiratory effort and clear to auscultation bilaterally Auscultation: Negative for rales, rhonchi or wheezes Cardio S1 normal heart sound, S2 normal heart sound and no murmurs Rate: regular rate Rhythm: regular rhythm GI non-tender, non-distended and no masses Inspection: Negative for abdominal distention Auscultation: normoactive bowel sounds Palpation: soft; Negative for tender or guarding Back/Spine no CVA tenderness and normal ROM General Back: Negative for CVA tenderness Cervical Spine: Negative for cervical spine tenderness Thoracic Spine / Upper Back: Negative for thoracic spinal tenderness Lumbar Spine / Lower Back: Negative for lumbar spinal tenderness Extremity normal to inspection and full ROM General Extremety ED: Negative for cyanosis or tenderness General Extremity: Negative for cyanosis Neuro oriented x3 Sensorium / Orientation: alert, oriented to person, oriented to place and oriented to time; Negative for orientation impaired, lethargic or stuporous Motor Exam: general weakness Psych mental status grossly normal Attitude: No agitated Mood & Affect: Negative for depressed, anxious or tearful Skin General Skin Exam: Negative for jaundice or pallor Lesions: no lesions Rashes: no rashes MDM MDM MDM Narrative Medical decision making narrative: 81-year-old male with extensive past medical history. Has been ill since Sunday when he had a fever. Today he was weak and fell injuring his right face he'll get a CAT scan of his head due to him being on Coumadin. He did undergo a septic work-up. He is also complaining of left groin playing so get a left hip and pelvis x-ray. Patient be treated with a liter of fluid. Clinically looks dehydrated. Repeat exam patient is doing well at 6:50 PM. I went over all test results with the patient and his . He will need to be admitted for generalized weakness secondary to the COVID. He did receive a liter of normal saline. I have already spoken to the hospitalist about admission. Awaiting the nurses to clean the wound off the right side of his face to determine if it needs any suture repair. Lab Data Attestation: I reviewed the patient's lab results. Lab results narrative: CBC white count of 6. Hemoglobin 16. Hematocrit 49. Platelets are low at 134. PT 18 INR 1.6 PTT of 41. Electrolytes sodium 133 gap of 8 BUN of 22 creatinine 1.44. Liver enzymes unremarkable. Lactic acid 1.8. Labs: Laboratory Results - last 24 hr 09/11/21 09/11/21 09/11/21 16:00 16:00 16:00 WBC 6.1 RBC 5.48 Hgb 16.6 H Hct 49.6 MCV 90.5 MCH 30.3 MCHC 33.5 RDW Std Deviation 41.4 RDW Coeff of Arnol 12.4 Plt Count 134 L MPV 10.7 Immature Gran % (Auto) 0.500 Neut % (Auto) 78.1 H Lymph % (Auto) 5.3 L Day % (Auto) 15.4 H Eos % (Auto) 0.2 Baso % (Auto) 0.5 Absolute Neuts (auto) 4.7 Absolute Lymphs (auto) 0.32 L Nucleated RBC % 0 Differential Comment SEE COMMENT Platelet Estimate SLT DEC Plt Morphology Comment LARGE RBC Morphology N CHROM Anisocytosis RARE Macrocytosis RARE PT 18.2 H INR 1.6 APTT 41.4 H Sodium 133 L Potassium 4.2 Chloride 99 Carbon Dioxide 26.0 Anion Gap 8 BUN 22 H Creatinine 1.44 H Estim Creat Clear Calc 43.58 Est GFR (MDRD) Af Amer 61 Est GFR (MDRD) Non-Af 50 L BUN/Creatinine Ratio 15.3 Glucose 137 H Lactic Acid Calcium 8.5 Total Bilirubin 0.50 AST 45 H ALT 38 Alkaline Phosphatase 82 Total Protein 7.6 Albumin 3.3 Globulin 4.3 H Albumin/Globulin Ratio 0.8 L 09/11/21 16:00 WBC RBC Hgb Hct MCV MCH MCHC RDW Std Deviation RDW Coeff of Arnol Plt Count MPV Immature Gran % (Auto) Neut % (Auto) Lymph % (Auto) Day % (Auto) Eos % (Auto) Baso % (Auto) Absolute Neuts (auto) Absolute Lymphs (auto) Nucleated RBC % Differential Comment Platelet Estimate Plt Morphology Comment RBC Morphology Anisocytosis Macrocytosis PT INR APTT Sodium Potassium Chloride Carbon Dioxide Anion Gap BUN Creatinine Estim Creat Clear Calc Est GFR (MDRD) Af Amer Est GFR (MDRD) Non-Af BUN/Creatinine Ratio Glucose Lactic Acid 1.8 Calcium Total Bilirubin AST ALT Alkaline Phosphatase Total Protein Albumin Globulin Albumin/Globulin Ratio Radiography Diagnostic Testing: Clinical Impression(s) from Imaging Studies Brain CT 09/11/21 15:35 IMPRESSION: No acute intracranial finding. Electronically Signed: Manuel Scott MD at 17:27 EST Tel , Service support , Chest X-Ray 09/11/21 15:35 IMPRESSION: Cardiomegaly. No acute pulmonary process. Electronically Signed: Manuel Scott MD at 17:47 EST Tel , Service support , Hip/Pelvis X-Ray 09/11/21 15:44 IMPRESSION: No radiographic evidence of acute fracture or dislocation the pelvis, including the left hip. CT scan or MRI may be obtained if clinical suspicion for nondisplaced fracture is high. 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 Lower lumbar spondylosis. Electronically Signed: Manuel Scott MD at 17:47 EST Tel , Service support , Chest x-ray portable single view showed no acute abnormality. Chronic changes. Interpreted by myself and the radiologist. Pelvis and left hip x-ray 3 views showed no acute abnormality. No fracture. Rhythm Strip Rhythm Strip: Sinus Rhythm Rate: 66 Ectopy: None EKG Initial EKG: Attestation: I personally reviewed and interpreted this EKG as follows: Interpretation: Sinus Rhythm and No Acute Injury Pattern Comments: Normal sinus rhythm rate of 66. No acute signs of CA or ischemia. QTc [place] is elevated at 458. Discharge Plan Triage Chief Complaint: Weakness ED Provider: Christian Smith Dx/Rx/DC Orders Clinical Impression: COVID-19, H/O coronary artery bypass surgery, H/O aortic valve replacement, Chronic diastolic (congestive) heart failure, Generalized weakness, Fall, Head injury, Chronic renal insufficiency, Anticoagulated on Coumadin Prescriptions: No Action metformin 500 mg tablet 500 mg PO DAILY RF: 0 simvastatin 40 mg tablet 40 mg PO QHS RF: 0 metoprolol tartrate 50 mg tablet 50 mg PO BID RF: 0 magnesium oxide 400 mg capsule 400 mg PO BID Qty: 180 RF: 3 silver sulfadiazine 1 % cream 1 applic topical DAILY Qty: 85 RF: 0 bumetanide 1 mg tablet 1 mg PO DAILY Qty: 90 RF: 3 multivitamin with minerals 1 EACH tablet 1 tab PO DAILY RF: 0 warfarin 2.5 MG tablet 2.5 mg PO SUSA RF: 0 warfarin 5 mg tablet 10 mg PO DAILY Qty: 180 RF: 4 spironolactone 50 mg tablet 50 mg PO DAILY Qty: 90 RF: 3 Primary Care Provider: Sanju Luna Referrals: Sanju Luna MD [Primary Care Provider] - Disposition Disposition: Acute Care [facility]
--- NOTE | 2021-09-11 15:44 | RAD_ITS ---
STUDY: X-RAY - PELVIS AND LEFT HIP REASON FOR EXAM: Male, 81 years old. Pain after fall TECHNIQUE: 2 views of the pelvis and hip. COMPARISON: None. FINDINGS: Please see the impression. RAD/HIP, UNI W/ Pelvis 2-3 Views IMPRESSION: No radiographic evidence of acute fracture or dislocation the pelvis, including the left hip. CT scan or MRI may be obtained if clinical suspicion for nondisplaced fracture is high. 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 Lower lumbar spondylosis. Electronically Signed: Manuel Scott MD at 17:47 EST Tel , Service support ,
[2021-09-11 16:11] LABS: Absolute Lymphocyte Count 0.32 X10^3/uL (0.83-4.51); Absolute Neutrophil Count 4.7 X10^3/uL (2.0-7.7); Basophil# 0.03 X10^3/uL; Basophil% 0.5 % (0-1); Eosinophil# 0.01 X10^3/uL; Eosinophils% 0.2 % (0-5); Hematocrit 49.6 % (40-54); Hemoglobin 16.6 g/dL (13.0-16.5); Lymphocyte # 0.32 X10^3/ul (0.83-4.51); Lymphocyte % 5.3 % (19-41); Mean Corp Hgb Conc 33.5 g/dL (32-36); Mean Corpuscular Hgb 30.3 pg (27.0-32.0); Mean Corpuscular Volume 90.5 fL (80-94); Mean Platelet Vol. 10.7 fl (6.2-12.0); Monocyte# 0.93 X10^3/uL; Monocyte% 15.4 % (0-10); NRBC Flagged by Analyzer 0 % (0-5); Neutrophil # 4.73 X10^3/uL (2.7-7.7); Neutrophil % 78.1 % (47-70); POSITIVE DIFFERENTIAL YES; Platelet Count 134 K/mm3 (150-450); RBC Distribution Width CV 12.4 % (11.6-14.6); RBC Distribution Width SD 41.4 fl (35.1-43.9); Red Blood Count 5.48 M/mm3 (4.6-6.2); White Blood Count 6.1 K/mm3 (4.4-11.0)
[2021-09-11] MEDS: 0.9% Normal Saline 1,000 ML 999 ML IV (16:17)
[2021-09-11 16:19] LABS: International Normalized Ratio 1.6; Prothrombin Time (Protime)PT. 18.2 SECONDS (11.7-14.9)
[2021-09-11 16:20] LABS: Partial Thromboplast Time 41.4 Seconds (24.1-36.2)
[2021-09-11 16:31] LABS: Differential Indicated SCAN CRITERIA MET
[2021-09-11 16:33] LABS: Anisocytosis RARE; Macrocytosis RARE; Platelet Estimate SLT DEC (ADEQ); Platelet Morphology LARGE; Red Cell Morphology N CHROM NORMAL (NORM C&C)
[2021-09-11 16:37] LABS: ALB/GLOB Ratio 0.8 RATIO (0.9-2.4); AST(SGOT) 45 U/L (15-37); Alanine Aminotransfer ALT/SGPT 38 U/L (16-61); Albumin, Serum 3.3 g/dL (3.2-5.0); Alkaline Phosphatase 82 U/L (45-117); Anion Gap 8 (5-15); BUN 22 mg/dL (7-18); BUN/Creat Ratio 15.3 RATIO (10-20); Calcium,Total 8.5 mg/dL (8.5-10.1); Chloride 99 mmol/L (98-107); Creatinine, Serum 1.44 mg/dL (0.70-1.30); EST Glomerular Filtration Rate 50 mL/min (>60); Est Glom Filt Rate - Afr Amer 61 mL/min (>60); Estimated Creatinine Clearance 43.58 ml/min; Globulin 4.3 g/dL (2.2-4.2); Glucose 137 mg/dL (74-106); Potassium 4.2 mmol/L (3.5-5.1); Protein, Total 7.6 g/dL (6.4-8.2); Sodium Level 133 mmol/L (136-145)
[2021-09-11 16:42] LABS: Lactic Acid 1.8 mmol/L (0.4-1.9)
--- NOTE | 2021-09-11 19:14 | HP.PCM.HOS_ITS ---
HPI - General General Date of Admission: 09/11/21 Date of Service: 09/11/21 Chief Complaint: Generalized weakness/malaise/falls HPI Narrative HARRISON ESTRADA, is a 81 M who presented to the emergency department with [facility] on 09/11/2021 with generalized weakness. He states that he began having weakness on Sunday and had a temperature of 100.5. He is also complaining of some mild shortness of breath a cough that is intermittently productive of clear sputum, generalized weakness, and significant fatigue. He denies any anosmia, dysgeusia, chest pain, nausea, vomiting, diarrhea, or tingling/numbness. He also denies any upper respiratory symptoms. His is with him at the bedside and states that he started with symptoms on Sunday. A rapid home COVID test was performed at that time and was negative. Unfortunately, he has had progressively worsening weakness and had a fall today which he sustained a right facial laceration left hip pain as well. He is on chronic anticoagulation in the form of Coumadin for paroxysmal atrial fibrillation. The patient indicates he has been vaccinated but not boosted for COVID-19. In the emergency department his T-max was 98.4, his pulse was in the 60s, his blood pressure was normotensive his respiratory rate was 16-18 and his sats were 94 to 96% on room air. CBC shows a mildly elevated hemoglobin which appears to be consistent with hemoconcentration and his platelet count is slightly decreased at 134. He does have a mild left shift with a lymphopenia. Given that he is on chronic anticoagulation and INR was assessed and was found to be 1.6. His CMP shows a sodium of 133 which is low for him, a mildly elevated BUN at 22 and a serum creatinine slightly above his baseline at 1.44. His lactic acid was normal at 1.8. His AST is mildly elevated at 45 with a normal ALT. Given his fall a CT of his head was performed and no acute intracranial findings were noted. Chest x-ray was performed and showed stable cardiomegaly with no acute cardiopulmonary processes. 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 In the emergency department he was treated with 1 L of IV fluids and assessed for needing the right facial laceration sutured. Request for admission given his profound weakness and fatigue was made. [facility]LY [facility] Medical History Atherosclerosis of coronary artery of [place] heart without angina pectoris Chronic diastolic (congestive) heart failure Chronic renal insufficiency Dyspnea Essential (primary) hypertension History of CVA (cerebrovascular accident) (2010) Hyperlipidemia Hyperlipidemia Left leg cellulitis Non-rheumatic aortic stenosis Non-ST elevation (NSTEMI) myocardial infarction (10/18/18) Obesity Obstructive sleep apnea Paroxysmal atrial fibrillation Postoperative atrial fibrillation Type 2 diabetes mellitus Ulcer of left lower extremity with fat layer exposed Venous insufficiency of both lower extremities Venous insufficiency of left leg Home Medications multivitamin with minerals 1 tab PO DAILY 10/18/18 [History Last Taken 10/18/18 08:00] metformin 500 mg tablet 500 mg PO DAILY tab 11/08/18 [History Last Taken Unknown] simvastatin 40 mg tablet 40 mg PO QHS 11/08/18 [History Last Taken 01/14/19 22:00] metoprolol tartrate 50 mg tablet 50 mg PO BID tab 11/29/18 [History Last Taken 01/15/19] magnesium oxide 400 mg PO BID #180 cap 01/03/19 [Rx Last Taken Unknown] warfarin 2.5 mg PO SUSA 05/19/19 [History Last Taken Unknown] warfarin 5 mg tablet 10 mg PO DAILY #180 tab 01/25/21 [Rx Last Taken Unknown] bumetanide 1 mg tablet 1 mg PO DAILY #90 tab 03/15/21 [Rx Last Taken Unknown] silver sulfadiazine 1 % topical cream 1 applic TOPICAL DAILY #85 g 03/15/21 [Rx Last Taken Unknown] spironolactone 50 mg tablet 50 mg PO DAILY #90 tab 09/02/21 [Rx Last Taken Unknown] Allergy/AdvReac Type Severity Reaction Status Date / Time No Known Allergies Allergy Verified 03/15/21 09:54 unable to obtain Surgical History H/O aortic valve replacement (10/29/18) 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 Jessy Joby, DO) Smoking Status: Never smoker alcohol intake: never substance use type: does not use ROS Constitutional Constitutional: Reports chills, fatigue, fever(s), malaise and weakness; Denies anorexia, change in weight, night sweats or other Eyes Eyes: Denies blurry vision, change in eye color, change in vision, discharge from eye(s), double vision, erythema, eye pain, loss of vision or other ENT HEENT: Reports abnormal hearing and hearing loss; Denies dysphagia, ear pain, epistaxis, headache(s), nasal congestion, nasal discharge, post nasal drip, sinus pressure, sore throat or other Cardiovascular Cardiovascular: Reports dyspnea on exertion; Denies chest pain, claudication, edema, lightheadedness, orthopnea, palpitations, paroxysmal nocturnal dyspnea, rapid heart rate, syncope or other Respiratory/Chest Respiratory/Chest: Reports cough, dyspnea and shortness of breath with exertion; Denies excessive phlegm production, hemoptysis, productive cough, shortness of breath at rest, wheezing or other Gastrointestinal Gastrointestinal: Denies abdominal pain, coffee ground emesis, constipation, diarrhea, dyspepsia, hematemesis, hematochezia, loose stools, melena, nausea, vomiting or other Genitourinary Genitourinary: Denies burning urination, difficulty urinating, dysuria, hematuria, nocturia, urinary frequency, urinary hesitancy, urinary incontinence, urinary urgency or other Musculoskeletal Musculoskeletal: Reports back pain, myalgias and other Details: Left hip pain/marked generalized weakness Neurologic Neurologic: Denies abnormal gait, abnormal speech, confusion, disequilibrium, dizziness, focal weakness, headache(s), numbness, paresthesias, seizure-like activity, seizures, syncope, tingling, tremor(s) or other Psychiatric Psychiatric: Denies anxiety, depression, homicidal ideation, suicidal ideation or other Endocrine Endocrinology: Denies change in body appearance, cold intolerance, excessive sweating, heat intolerance, polydipsia, polyuria or other Hematologic/Lymphatic Hematologic/Lymphatic: Denies anemia, easy bleeding, easy bruising, lymphadenopathy or other Allergic/Immunologic Allergic/Immunologic: Denies rhinitis, hives, eczemia, asthma or other Vital Signs Vital Signs Vital Signs: 09/11/21 14:47 09/11/21 14:49 09/11/21 14:50 Temperature 98.0 F 98.0 F Temperature Source Temporal Temporal Pulse Rate 67 67 Respiratory Rate 15 15 Respiratory Effort Short of Breath Respiratory Pattern Normal Blood Pressure 125/68 H 125/68 H Blood Pressure Mean 87 87 Pulse Ox 93 93 Oxygen Delivery Method Room Air Room Air 09/11/21 15:35 09/11/21 17:00 Temperature 98.4 F 97.4 F L Temperature Source Temporal Temporal Pulse Rate 62 68 Respiratory Rate 18 16 Respiratory Effort Respiratory Pattern Blood Pressure 136/82 H 126/72 H Blood Pressure Mean 100 90 Pulse Ox 94 94 Oxygen Delivery Method Room Air Room Air Weight Weight: 136.078 kg Body Mass Index (BMI) 41.8 Physical Exam Const alert, oriented x3, no apparent distress and average body habitus Constitutional Narrative: Morbidly obese elderly white male sitting up in bed, at bedside, patient is extremely hard of hearing and supplies most of his history General Appearance: cooperative HEENT normocephalic HEENT Narrative: Laceration covered by bandage right zygomatic arch, mucous membranes are slightly dry, dentition is fair for age, no thrush, Mallampati is 3 Eyes PERRL, EOMs intact bilaterally and conjunctivae normal Eyes Narrative: No scleral icterus Neck no lymphadenopathy, supple and no JVD Neck Narrative: Trachea is midline, no thyroid enlargement noted, neck is short and thick Resp normal respiratory effort, no retractions, no use of accessory muscles and clear to auscultation bilaterally Auscultation: Negative for crackles, rales, rhonchi or wheezes Cardio regular rate, regular rhythm, S1 normal heart sound, S2 normal heart sound, no murmurs, no rub, no gallops, no clicks and no JVD GI normal to inspection, nondistended, normoactive bowel sounds, soft to palpation, non-tender and non-distended Extremity Extremity Narrative: Trace bilateral lower extremity edema that appears to be chronic, no cyanosis or clubbing, pedal pulses are 1+ bilaterally Skin skin turgor normal, no jaundice, no petechiae and no mottling Skin Narrative: Pretibial skin tears bilateral lower extremity with changes consistent with chronic venous stasis, laceration right face Neuro oriented x3, moves all extremities and no focal motor deficits Neuro Narrative: Very hard of hearing but cranial nerves are otherwise normal, marked generalized weakness Sensorium / Orientation: awake and alert Speech: speech normal Psych affect normal Results Lab / Micro Data Attestation: I reviewed the patient's lab results. Result Diagrams: 09/11/21 16:00 09/11/21 16:00 Labs: Laboratory Results - last 24 hr 09/11/21 16:00: WBC 6.1, RBC 5.48, Hgb 16.6 H, Hct 49.6, MCV 90.5, MCH 30.3, MCHC 33.5, RDW Std Deviation 41.4, RDW Coeff of Arn[place] 12.4, Plt Count 134 L, MPV 10.7, Immature Gran % (Auto) 0.500, Neut % (Auto) 78.1 H, Lymph % (Auto) 5.3 L, [place] % (Auto) 15.4 H, Eos % (Auto) 0.2, Baso % (Auto) 0.5, Absolute Neuts (auto) 4.7, Absolute Lymphs (auto) 0.32 L, Nucleated RBC % 0, Differential Comment SEE COMMENT, Platelet Estimate SLT DEC, Plt Morphology Comment LARGE, RBC Morphology N CHROM, Anisocytosis RARE, Macrocytosis RARE 09/11/21 16:00: PT 18.2 H, INR 1.6, APTT 41.4 H 09/11/21 16:00: Sodium 133 L, Potassium 4.2, Chloride 99, Carbon Dioxide 26.0, Anion Gap 8, BUN 22 H, Creatinine 1.44 H, Estim Creat Clear Calc 43.58, Est GFR (MDRD) Af Amer 61, Est GFR (MDRD) Non-Af 50 L, BUN/Creatinine Ratio 15.3, Glucose 137 H, Calcium 8.5, Total Bilirubin 0.50, AST 45 H, ALT 38, Alkaline Phosphatase 82, Total Protein 7.6, Albumin 3.3, Globulin 4.3 H, Albumin/Globulin Ratio 0.8 L 09/11/21 16:00: Lactic Acid 1.8 Micro: Microbiology 09/11/21 16:14 Nasal Secretion SARS-CoV-2 Antigen (Rapid) - Final SARS-CoV-2 (COVID 19) Rhythm Strip Rhythm Strip: Sinus Rhythm Rate: 66 Ectopy: None Radiology Impression Brain CT 09/11/21 15:35 IMPRESSION: No acute intracranial finding. Electronically Signed: Manuel Scott MD at 17:27 EST Tel , Service support , Chest X-Ray 09/11/21 15:35 IMPRESSION: Cardiomegaly. No acute pulmonary process. Electronically Signed: Manuel Scott MD at 17:47 EST Tel , Service support , Hip/Pelvis X-Ray 09/11/21 15:44 IMPRESSION: No radiographic evidence of acute fracture or dislocation the pelvis, including the left hip. CT scan or MRI may be obtained if clinical suspicion for nondisplaced fracture is high. 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 Lower lumbar spondylosis. Electronically Signed: Manuel Scott MD at 17:47 EST Tel , Service support , Assessment & Plan Assessment/Plan (1) Generalized weakness: (2) Fall: (3) COVID-19: (4) Open facial wound: PLAN: Marked generalized weakness/fall -Suspect this is related to acute COVID-19 infection -Consult PT/OT -Patient may need rehab/TCU prior to home-going upon discharge -Discussed with patient and upon admission and they voiced understanding -Blood cultures were ordered and are pending Acute COVID-19 infection -Patient is currently not hypoxic -Symptom onset 09/08/2021--> at this point patient will need 10 days of quarantine unless he develops hypoxia -Recommend booster after out of quarantine--> patient did receive first 2 doses of COVID-19 vaccine -No need for remdesivir and Decadron at this time although this was discussed with family and they would be willing to accept both if needed -Aggressive incentive spirometry and Acapella -As needed nebulizers -Early mobility -Therapy as above -We will utilize 40 mg of Lovenox twice daily until patient is therapeutic again on his Coumadin Right-sided facial wound -Laceration is being further evaluated by emergency department at this time for needing of suturing -Wound care is consulted Mild dehydration -Serum hemoglobin and serum BUN and creatinine are slightly elevated from baseline -1 L of IV fluid given the emergency department -We will Hep-Lock at this time and reevaluate in the morning History of stroke/CAD/hypertension/hyperlipidemia -Continue home metoprolol 50 mg twice daily -Continue simvastatin 40 mg nightly -Patient has had history of CABG in 2019 -Hold home Aldactone -Restart once volume status is euvolemic and p.o. intake is adequate Paroxysmal atrial fibrillation -Continue Coumadin--> home dosing and reevaluate daily -INR is subtherapeutic at 1.6 -Check daily INR -Prophylactic dose Lovenox until INR is therapeutic Chronic diastolic heart failure -Most recent echo was 04/11/2019 and showed a normal EF but stage III diastolic d ysfunction -Hold diuretics given mild dehydration on admission -Bumex/Aldactone -Reevaluate for initiation over the next 24 to 48 hours DM-2 -Hold home metformin -SSI moderate dose -Accu-Cheks before meals and at bedtime History of aortic valve replacement -[employer] trifecta bioprosthetic valve in place 2018 -No current issues Morbid obesity -BMI is 41.8 -Complicates treatment, prognosis, outcomes DVT prophylaxis -INR is 1.6 -Given BMI of 41.8 will dose 40 mg of Lovenox twice daily until INR is therapeutic at 2-3 CODE STATUS -Full code as per discussion prior to admission in the emergency department Charges/Coding Visit Charges Inpatient E&M: 04617 Init Hosp L3
[2021-09-11] MEDS: Enoxaparin 40 MG/0.4 ML Syringe SC (21:57)
[2021-09-11] MEDS: Metoprolol Tartrate 50 MG Tablet PO (21:57)
[2021-09-11] MEDS: Atorvastatin Calcium 20 MG Tablet PO (21:57)
[2021-09-11] MEDS: Magnesium Chloride 64 MG Delay Rel.Tablet 128 MG PO (21:57)
[2021-09-11] MEDS: Glucerna Shake 120 ML LIQUID PO (22:21)
[2021-09-11 22:31] LABS: Bedside Glucose 123 mg/dL (70-110)
[2021-09-12] VITALS (18 sets, daily range): BP systolic 82–147; BP diastolic 60–94; PULSE 58–79; RESP 16–22; TEMP 36.7–37.4; O2SAT 91–98
--- NOTE | 2021-09-12 01:10 | NURSING ---
Bladder scanned for 667 ml, straight cathed per MD order for 820, slightly cloudy urine, straw in color normal odor. Procedure well tolerated.
[2021-09-12 01:17] LABS: Red Blood Cells-Urine 0 SEEN /hpf (0-5); Squamous Epithelial Cells - UA 0 SEEN /hpf (0-5); White Blood Cells 0 SEEN /hpf (0-5)
[2021-09-12 01:30] LABS: Color, Urine Yellow (Yellow); Glucose, Dipstick Normal (Normal); Ketone-Dipstick 5 mg/dl (Negative); Leukocyte Esterase-Dipstick Negative /ul (Negative); Nitrite-Dipstick Negative (Negative); Occult Blood-Urine Negative /ul (Negative); Protein-Dipstick 15 mg/dl (Negative); Urine Bilirubin Dipstick Negative (Negative); Urine Clarity Clear (Clear); Urine Urobilinogen Normal (Normal)
[2021-09-12 02:34] LABS: Bacteria 1+ /hpf (None Seen)
[2021-09-12 02:35] LABS: Mucous, Urine 2+ /hpf (<or=2+)
[2021-09-12 06:01] LABS: Absolute Lymphocyte Count 0.61 X10^3/uL (0.83-4.51); Absolute Neutrophil Count 2.9 X10^3/uL (2.0-7.7); Basophil# 0.01 X10^3/uL; Basophil% 0.2 % (0-1); Eosinophils% 2.2 % (0-5); Hemoglobin 15.4 g/dL (13.0-16.5); Lymphocyte # 0.61 X10^3/ul (0.83-4.51); Lymphocyte % 13.5 % (19-41); Mean Corp Hgb Conc 32.8 g/dL (32-36); Mean Corpuscular Volume 91.6 fL (80-94); Mean Platelet Vol. 10.9 fl (6.2-12.0); Monocyte# 0.87 X10^3/uL; Monocyte% 19.3 % (0-10); NRBC Flagged by Analyzer 0 % (0-5); Neutrophil # 2.89 X10^3/uL (2.7-7.7); Neutrophil % 64.1 % (47-70); Platelet Count 121 K/mm3 (150-450); RBC Distribution Width CV 12.6 % (11.6-14.6); RBC Distribution Width SD 42.6 fl (35.1-43.9); Red Blood Count 5.13 M/mm3 (4.6-6.2); White Blood Count 4.5 K/mm3 (4.4-11.0)
[2021-09-12 06:25] LABS: International Normalized Ratio 1.6; Prothrombin Time (Protime)PT. 18.4 SECONDS (11.7-14.9)
[2021-09-12 06:50] LABS: ALB/GLOB Ratio 0.7 RATIO (0.9-2.4); AST(SGOT) 44 U/L (15-37); Alanine Aminotransfer ALT/SGPT 32 U/L (16-61); Albumin, Serum 2.7 g/dL (3.2-5.0); Alkaline Phosphatase 68 U/L (45-117); Anion Gap 7 (5-15); BUN 21 mg/dL (7-18); BUN/Creat Ratio 16.9 RATIO (10-20); Calcium,Total 7.9 mg/dL (8.5-10.1); Chloride 104 mmol/L (98-107); Creatinine, Serum 1.24 mg/dL (0.70-1.30); EST Glomerular Filtration Rate 60 mL/min (>60); Est Glom Filt Rate - Afr Amer 72 mL/min (>60); Estimated Creatinine Clearance 49.06 ml/min; Globulin 3.8 g/dL (2.2-4.2); Glucose 102 mg/dL (74-106); Magnesium 2.6 mg/dL (1.6-2.6); Phosphorus 3.4 mg/dL (2.5-4.9); Protein, Total 6.5 g/dL (6.4-8.2); Sodium Level 135 mmol/L (136-145); Thyroid Stim Hormone (TSH) 0.91 uIU/mL (0.358-3.74)
--- NOTE | 2021-09-12 07:47 | PCM.PN.HOSP ---
Subjective Subjective Patient is poor historian and hard of hearing. States he has history of BPH and had some prostate surgery in the past. He had retention of urine and does not have good bladder filling sensation. Denies straining micturition. Started on Flomax. Denies burning micturition. Low functional status and hard time in getting up from the bed. Objective Data Objective Data Vital Signs: Vital Signs Temp Pulse Resp BP Pulse Ox 99.1 F 60 20 H 139/73 H 91 09/12/21 02:30 09/12/21 07:41 09/12/21 02:30 09/12/21 02:30 09/12/21 07:41 Oxygen Delivery Method Room Air Weight: 274 lb 7.608 oz Body Mass Index (BMI) 38.7 Intake & Output: Intake and Output for Last 24 Hours 09/10/21 09/11/21 09/12/21 23:59 23:59 23:59 Intake Total 1000 / 1000 Output Total 1640 / 1640 Balance 1000 / 180 -1640 / -1640 Lab / Micro Data Result Diagrams: 09/12/21 05:02 09/12/21 05:02 Labs: Laboratory Results - last 24 hr 09/11/21 01:10: Urine Color Yellow, Urine Clarity Clear, Urine pH 5.0, Ur Specific [place] 1.020, Urine Protein 15 H, Urine Glucose (UA) Normal, Urine Ketones 5 H, Urine Occult Blood Negative, Urine Nitrite Negative, Urine Bilirubin Negative, Urine Urobilinogen Normal, Ur Leukocyte Esterase Negative, Urine RBC 0 SEEN, Urine WBC 0 SEEN, Ur Squamous Epith Cells 0 SEEN, Urine Bacteria 1+, Urine Mucus 2+ 09/11/21 16:00: WBC 6.1, RBC 5.48, Hgb 16.6 H, Hct 49.6, MCV 90.5, MCH 30.3, MCHC 33.5, RDW Std Deviation 41.4, RDW Coeff of Arnol 12.4, Plt Count 134 L, MPV 10.7, Immature Gran % (Auto) 0.500, Neut % (Auto) 78.1 H, Lymph % (Auto) 5.3 L, [place] % (Auto) 15.4 H, Eos % (Auto) 0.2, Baso % (Auto) 0.5, Absolute Neuts (auto) 4.7, Absolute Lymphs (auto) 0.32 L, Nucleated RBC % 0, Differential Comment SEE COMMENT, Platelet Estimate SLT DEC, Plt Morphology Comment LARGE, RBC Morphology N CHROM, Anisocytosis RARE, Macrocytosis RARE 09/11/21 16:00: PT 18.2 H, INR 1.6, APTT 41.4 H 09/11/21 16:00: Sodium 133 L, Potassium 4.2, Chloride 99, Carbon Dioxide 26.0, Anion Gap 8, BUN 22 H, Creatinine 1.44 H, Estim Creat Clear Calc 43.58, Est GFR (MDRD) Af Amer 61, Est GFR (MDRD) Non-Af 50 L, BUN/Creatinine Ratio 15.3, Glucose 137 H, Calcium 8.5, Total Bilirubin 0.50, AST 45 H, ALT 38, Alkaline Phosphatase 82, Total Protein 7.6, Albumin 3.3, Globulin 4.3 H, Albumin/Globulin Ratio 0.8 L 09/11/21 16:00: Lactic Acid 1.8 09/11/21 22:18: POC Glucose 123 H 09/12/21 05:02: WBC 4.5, RBC 5.13, Hgb 15.4, Hct 47.0, MCV 91.6, MCH 30.0, MCHC 32.8, RDW Std Deviation 42.6, RDW Coeff of Arnol 12.6, Plt Count 121 L, MPV 10.9, Immature Gran % (Auto) 0.700, Neut % (Auto) 64.1, Lymph % (Auto) 13.5 L, [place] % (Auto) 19.3 H, Eos % (Auto) 2.2, Baso % (Auto) 0.2, Absolute Neuts (auto) 2.9, Absolute Lymphs (auto) 0.61 L, Nucleated RBC % 0 09/12/21 05:02: PT 18.4 H, INR 1.6 09/12/21 05:02: Sodium 135 L, Potassium 4.0, Chloride 104, Carbon Dioxide 24.0, Anion Gap 7, BUN 21 H, Creatinine 1.24, Estim Creat Clear Calc 49.06, Est GFR (MDRD) Af Amer 72, Est GFR (MDRD) Non-Af 60, BUN/Creatinine Ratio 16.9, Glucose 102, Calcium 7.9 L, Phosphorus 3.4, Magnesium 2.6, Total Bilirubin 0.60, AST 44 H, ALT 32, Alkaline Phosphatase 68, Total Protein 6.5, Albumin 2.7 L, Globulin 3.8, Albumin/Globulin Ratio 0.7 L, TSH 0.91 Micro: Microbiology 09/11/21 16:14 Nasal Secretion SARS-CoV-2 Antigen (Rapid) - Final SARS-CoV-2 (COVID 19) Radiography Diagnostic Testing: Radiology Impression Brain CT 09/11/21 15:35 IMPRESSION: No acute intracranial finding. Electronically Signed: Manuel Scott MD at 17:27 EST Tel , Service support , Chest X-Ray 09/11/21 15:35 IMPRESSION: Cardiomegaly. No acute pulmonary process. Electronically Signed: Manuel Scott MD at 17:47 EST Tel , Service support , Hip/Pelvis X-Ray 09/11/21 15:44 IMPRESSION: No radiographic evidence of acute fracture or dislocation the pelvis, including the left hip. CT scan or MRI may be obtained if clinical suspicion for nondisplaced fracture is high. 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 Lower lumbar spondylosis. Electronically Signed: Manuel Scott MD at 17:47 EST Tel , Service support , Rhythm Strip Rhythm Strip: Sinus Rhythm Rate: 66 Ectopy: None Physical Exam Narrative General: Alert, Oriented x3, Cooperative HEENT: Hard of hearing. Atraumatic, PERRLA, EOMI, Normocephalic Oral: No Gingival or Mucosal Lesions/ Ulcerations Neck: Supple, No JVD, Negative Carotid Bruits Lungs: Air entry diminished in bilateral lung bases. No crepitation/rhonchi Cardiovascular: Regular rate, Regular Rhythm, Normal S1, Normal S2, No murmurs Abdomen: Bowel Sounds Present, Soft, Non Tender, Non-Distended : No renal angle tenderness. No suprapubic tenderness. Extremities: Bilateral mild pitting edema, Capillary Refill Less than 3 Seconds Skin: Superficial laceration over right zygomatic arch. Bilateral superficial venous ulcer, right lower leg near vargas and left lower leg lateral aspect. Stasis dermatitis and venous hypertensive changes. Musculoskeletal: ROM restricted. Tenderness of bilateral lower extremity, knee and hip joints. Neurological: Cranial nerves II-XII grossly intact, DTR 2+/4 and Symmetrical, Neuro grossly intact Psych/Mental Status: Flat affect. Assessment & Plan Assessment/Plan (1) Generalized weakness: (2) Fall: (3) COVID-19: (4) Open facial wound: PLAN: This 81-year-old question intermittent admitted for generalized weakness started on 09/09 along with temperature T-max 100.5 Fahrenheit, mild shortness of breath cough with clear sputum. Patient also had fall Marked generalized weakness/fall prior to admission. Next 1. Generalized weakness, fall disability most probably exacerbated by COVID-19 infection: Consult PT and OT. Discussed with the registered nurse hh case manager for TCU. Blood culture pending 2. Acute COVID-19 infection: Patient is not hypoxic. Symptoms of Covid started on 09/08/2021. Quarantine for at least 2 weeks from date of onset of symptoms. No indication of remdesivir dexamethasone. Continue incentive spirometry and PEP. -Patient is currently not hypoxic Started on 40 mg of Lovenox twice daily until patient is therapeutic again on his Coumadin Right-sided facial laceration : Was cleaned. History of stroke/CAD/hypertension/hyperlipidemia -Continue home metoprolol 50 mg twice daily -Continue simvastatin 40 mg nightly -Patient has had history of CABG in 2019 -Hold home Aldactone -Restart once volume status is euvolemic and p.o. intake is adequate Paroxysmal atrial fibrillation -Continue Coumadin--> home dosing and reevaluate daily -INR is subtherapeutic at 1.6 -Check daily INR -Prophylactic dose Lovenox until INR is therapeutic Chronic diastolic heart failure -Most recent echo was 04/11/2019 and showed a normal EF but stage III diastolic dysfunction -Hold diuretics given mild dehydration on admission -Bumex/Aldactone -Reevaluate for initiation over the next 24 to 48 hours DM-2: Glucose is normal. -Hold home metformin -SSI moderate dose -Accu-Cheks before meals and at bedtime History of aortic valve replacement -[employer] trifecta bioprosthetic valve in place 2018 -No current issues Morbid obesity -BMI is 41.8 -Complicates treatment, prognosis, outcomes DVT prophylaxis -INR is 1.6 -Given BMI of 41.8 will dose 40 mg of Lovenox twice daily until INR is therapeutic at 2-3 on 10 mg warfarin daily CODE STATUS -Full code as per discussion prior to admission in the emergency department Charges/Coding Visit Charges Inpatient E&M: 56106 Subs Hosp L2
[2021-09-12] MEDS: Enoxaparin 40 MG/0.4 ML Syringe SC (10:25)
[2021-09-12] MEDS: Tamsulosin HCl 0.4 MG Capsule PO ×2 (10:25→17:45)
[2021-09-12] MEDS: Metoprolol Tartrate 50 MG Tablet PO (10:25)
[2021-09-12] MEDS: Magnesium Chloride 64 MG Delay Rel.Tablet 128 MG PO (10:26)
--- NOTE | 2021-09-12 11:10 | CASEMGMT ---
LOKESH BILL Assessment: Face to Face with pt for initial transition planning/care coordination assessment. LOKESH BILL introduced self and role at [facility], pt voices understanding and consents to assessment. Pt is A/O x4 and answers all questions appropriately at this time. Pt sitting up in chair on RA. Pt demonstrated using IS, encouraged use. Care providers, pharmacy, and demographics verified/updated. Admitting Dx: COVID 19 infection/ generalized weakness PCP: Cheryl Specialists: Pt denies. Preferred [facility]acy: [facility] Insurance: [employer] Prescription Benefit: yes LW/HPOA: Pt has a LW/DPOA on file at [facility]. His DPOA is his Francisca Milligan. LNOK: Francisca Milligan, ; Héctor Milligan, son Living Arrangements: Pt lives with in a single story house with 3 steps to enter with a rail. Pt reports he was I in ADL's and denies concerns at home. Transportation: Pt drives self and denies concerns with transportation. DME/HHC/SNF: Pt denies having a BGM, states he has not been told to check his blood sugars. Pt has a cane and w/c at home but does not use. Pt denies hx of HHC or SNF stays. Pt states no concerns with going home at time of dc. He states his strength is good. He denies need for any therapy at home at this time. He is anxious to go home. Pt states no further concerns/needs. CM to follow. Advised pt to ask CM if any further question/concerns/needs arise, voices understanding. Pt first tested positive for COVID at [facility]. He states his is not positive. He does not plan on quarantining from her at home. Educated on using separate bedrooms and bathrooms. Pt has family who can provide groceries and supplies while in quarantine. Provided pt with a local in network list of DME companies should pt be dc'd on O2, pt denies preference. Pt Goal: Home Plan: Home
[2021-09-12 11:35] LABS: Bedside Glucose 131 mg/dL (70-110)
--- NOTE | 2021-09-12 13:00 | NURSING ---
alyssa heard (person to contact) updated
[2021-09-12 17:56] LABS: Bedside Glucose 146 mg/dL (70-110)
--- NOTE | 2021-09-12 21:40 | NURSING ---
2129-Nurse was at bedside, talking to patient. Patient was AxOx4. 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 At this time, patients blood pressure was 105/60. Patient then wanted to sit up at bedside to take HS medications. 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 This nurse rechecked patients blood pressure and it was 82/65 right arm sitting. Patient then stated I feel dizzy. Patient turned pale and became unarousable to voice and stimuli. This nurse laid patient back at bed and pressed the staff assist button. MAGAZINE FILLER called and came up to see patient at bedside.
[2021-09-13] VITALS (11 sets, daily range): BP systolic 88–156; BP diastolic 57–109; PULSE 69–103; RESP 18–20; TEMP 36.9–37.6; O2SAT 93–99
[2021-09-13 00:46] LABS: Bedside Glucose 108 mg/dL (70-110)
[2021-09-13 00:46] LABS: Bedside Glucose 113 mg/dL (70-110)
[2021-09-13] MEDS: Enoxaparin 40 MG/0.4 ML Syringe SC ×3 (00:55→21:16)
[2021-09-13 06:23] LABS: International Normalized Ratio 1.6; Prothrombin Time (Protime)PT. 18.4 SECONDS (11.7-14.9)
[2021-09-13 07:06] LABS: Bedside Glucose 109 mg/dL (70-110)
[2021-09-13] MEDS: Magnesium Chloride 64 MG Delay Rel.Tablet 128 MG PO ×2 (10:06→21:15)
--- NOTE | 2021-09-13 10:23 | EKG12_ITS ---
Test Reason : HYPOTENSION Blood Pressure : / mmHG Vent. Rate : 079 BPM Atrial Rate : 070 BPM P-R Int : 132 ms QRS Dur : 090 ms QT Int : 428 ms P-R-T Axes : -02 014 048 degrees QTc Int : 490 ms Sinus rhythm with Premature supraventricular complexes Prolonged QT Abnormal ECG When compared with ECG of 11-SEP-2021 15:51, MANUAL COMPARISON REQUIRED, DATA IS UNCONFIRMED Confirmed by CORINA SANDS, CARLA ([id number]), staff editor AWILDA REY ([id number]) on 09/15/2021 9:20:51 AM Referred By: DIYA Confirmed By:CARLA ARRIAGA MD
[2021-09-13 11:52] LABS: Troponin-I HS 41 pg/mL (3.0-78.0)
[2021-09-13 12:35] LABS: Bedside Glucose 103 mg/dL (70-110)
--- NOTE | 2021-09-13 14:21 | PN.HOSP_ITS ---
Subjective Subjective Patient felt dizzy, lightheaded. His blood pressure dropped from supine 147/80,67 /M TO 82/65 and heart rate 102/m. Repeat orthostatic also positive in the morning but heart rate did not rise. Objective Data Objective Data Vital Signs: Vital Signs Temp Pulse Resp BP Pulse Ox 98.4 F 78 18 123/109 H 95 09/13/21 08:16 09/13/21 09:49 09/13/21 08:16 09/13/21 09:49 09/13/21 13:47 Oxygen Flow Rate (L/min) 2 Oxygen Delivery Method Nasal Cannula Weight: 274 lb 14.663 oz Body Mass Index (BMI) 38.7 Intake & Output: Intake and Output for Last 24 Hours 09/11/21 09/12/21 09/13/21 23:59 23:59 23:59 Intake Total 1000 / 1000 650 / 650 Output Total 2089 / 2089 450 / 450 Balance 1000 / 180 -1440 / -1440 -450 / -450 Lab / Micro Data Result Diagrams: 09/12/21 05:02 09/12/21 05:02 Labs: Laboratory Results - last 24 hr 09/12/21 17:44: POC Glucose 146 H 09/12/21 21:24: POC Glucose 108 09/12/21 21:41: POC Glucose 113 H 09/13/21 05:25: PT 18.4 H, INR 1.6 09/13/21 06:35: POC Glucose 109 09/13/21 10:55: Troponin I High Sens 41 09/13/21 12:26: POC Glucose 103 Micro: Microbiology 09/12/21 01:10 Urine, Clean Catch Urine Culture - Preliminary Culture exhibits no growth. 09/11/21 16:14 Nasal Secretion SARS-CoV-2 Antigen (Rapid) - Final SARS-CoV-2 (COVID 19) Rhythm Strip Rhythm Strip: Sinus Rhythm Rate: 66 Ectopy: None Physical Exam Narrative General: Alert, Oriented x3, Cooperative HEENT: Hard of hearing. Atraumatic, PERRLA, EOMI, Normocephalic Oral: No Gingival or Mucosal Lesions/ Ulcerations Neck: Supple, No JVD, Negative Carotid Bruits Lungs: Air entry diminished in bilateral lung bases. No crepitation/rhonchi Cardiovascular: Orthostatic hypotension, sinus rhythm, Normal S1, Normal S2, No murmurs Abdomen: Bowel Sounds Present, Soft, Non Tender, Non-Distended : No renal angle tenderness. No suprapubic tenderness. Extremities: Bilateral mild pitting edema, Capillary Refill Less than 3 Seconds Skin: Superficial laceration over right zygomatic arch. Bilateral superficial venous ulcer, right lower leg and left lower leg. Stasis dermatitis and venous hypertensive changes. Musculoskeletal: ROM restricted. Tenderness of bilateral lower extremity, knee and hip joints. Neurological: Cranial nerves II-XII grossly intact, DTR 2+/4 and Symmetrical, Neuro grossly intact Psych/Mental Status: Flat affect. Assessment & Plan Assessment/Plan (1) Generalized weakness: (2) Fall: (3) COVID-19: (4) Open facial wound: PLAN: This 81-year-old question intermittent admitted for generalized weakness started on 09/09 along with temperature T-max 100.5 Fahrenheit, mild shortness of breath cough with clear sputum. Patient also had fall Marked generalized weakness/fall prior to admission. Next 1. Generalized weakness, fall disability most probably exacerbated by COVID-19 infection: Consult PT and OT. Discussed with the transplant case manager for TCU. Blood culture pending 09/13: Orthostatic hypotension noticed yesterday night when rapid response was called and in the morning patient had orthostatic hypotension without increasing heart rate. Sinus rhythm with premature supraventricular complexes at 79 bpm, QTC 490 ms. Troponin normal. Urine culture no growth. Negative fluid balance. BUN elevated. 1 L Ringer lactate over 2 hours. Patient is already on Coumadin therefore doing CTA to r/o PE is futile. 2. Acute COVID-19 infection: Patient is not hypoxic. Symptoms of Covid started on 09/08/2021. Quarantine for at least 2 weeks from date of onset of symptoms. No indication of remdesivir dexamethasone. Continue incentive spirometry and PEP. -Patient is currently not hypoxic Started on 40 mg of Lovenox twice daily until patient is therapeutic again on his Coumadin Right-sided facial laceration : Was cleaned. History of stroke/CAD/hypertension/hyperlipidemia -Continue home metoprolol 50 mg twice daily -Continue simvastatin 40 mg nightly -Patient has had history of CABG in 2019 -Hold home Aldactone -Restart once volume status is euvolemic and p.o. intake is adequate Paroxysmal atrial fibrillation -Continue Coumadin--> home dosing and reevaluate daily -INR is subtherapeutic at 1.6 -Check daily INR -Prophylactic dose Lovenox until INR is therapeutic Chronic diastolic heart failure -Most recent echo was 04/11/2019 and showed a normal EF but stage III diastolic dysfunction -Hold diuretics given mild dehydration on admission -Bumex/Aldactone -Reevaluate for initiation over the next 24 to 48 hours DM-2: Glucose is normal. -Hold home metformin -SSI moderate dose -Accu-Cheks before meals and at bedtime History of aortic valve replacement -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
[2021-09-13] MEDS: Lactated Ringers 1,000 ML 500 ML IV (15:03)
[2021-09-13] MEDS: 0.9% Saline Lock 10 ML Syringe IV (15:03)
--- NOTE | 2021-09-13 15:12 | NURSING ---
up to br from chair then back to bed
[2021-09-13 16:30] LABS: Bedside Glucose 125 mg/dL (70-110)
[2021-09-13 17:17] LABS: Absolute Lymphocyte Count 0.63 X10^3/uL (0.83-4.51); Absolute Neutrophil Count 3.9 X10^3/uL (2.0-7.7); Basophil# 0.02 X10^3/uL; Basophil% 0.4 % (0-1); Eosinophil# 0.11 X10^3/uL; Hematocrit 44.5 % (40-54); Hemoglobin 15.7 g/dL (13.0-16.5); Lymphocyte # 0.63 X10^3/ul (0.83-4.51); Lymphocyte % 11.6 % (19-41); Mean Corp Hgb Conc 35.3 g/dL (32-36); Mean Corpuscular Hgb 30.7 pg (27.0-32.0); Mean Corpuscular Volume 86.9 fL (80-94); Mean Platelet Vol. 11.3 fl (6.2-12.0); Monocyte# 0.66 X10^3/uL; Monocyte% 12.2 % (0-10); NRBC Flagged by Analyzer 0 % (0-5); Neutrophil # 3.94 X10^3/uL (2.7-7.7); Neutrophil % 72.5 % (47-70); Platelet Count 105 K/mm3 (150-450); RBC Distribution Width CV 12.3 % (11.6-14.6); RBC Distribution Width SD 39.6 fl (35.1-43.9); Red Blood Count 5.12 M/mm3 (4.6-6.2); White Blood Count 5.4 K/mm3 (4.4-11.0)
[2021-09-13] MEDS: Tamsulosin HCl 0.4 MG Capsule PO (17:44)
[2021-09-13 17:48] LABS: ALB/GLOB Ratio 0.7 RATIO (0.9-2.4); AST(SGOT) 48 U/L (15-37); Alanine Aminotransfer ALT/SGPT 38 U/L (16-61); Albumin, Serum 2.8 g/dL (3.2-5.0); Alkaline Phosphatase 70 U/L (45-117); Anion Gap 6 (5-15); BUN 19 mg/dL (7-18); BUN/Creat Ratio 18.4 RATIO (10-20); CPK Total, Creatine Kinase 247 U/L (39-308); Calcium,Total 7.9 mg/dL (8.5-10.1); Chloride 104 mmol/L (98-107); Creatinine, Serum 1.03 mg/dL (0.70-1.30); EST Glomerular Filtration Rate 74 mL/min (>60); Est Glom Filt Rate - Afr Amer 89 mL/min (>60); Estimated Creatinine Clearance 59.06 ml/min; Globulin 3.8 g/dL (2.2-4.2); Glucose 121 mg/dL (74-106); Protein, Total 6.6 g/dL (6.4-8.2); Sodium Level 134 mmol/L (136-145)
--- NOTE | 2021-09-13 20:46 | PCS.PANDOC ---
PANDEMIC DOCUMENTATION INITIATED: Date: 09/13/21 Time: 1899
[2021-09-13] MEDS: Atorvastatin Calcium 20 MG Tablet PO (21:15)
[2021-09-13] MEDS: Metoprolol Tartrate 50 MG Tablet PO (21:15)
[2021-09-13 22:05] LABS: Bedside Glucose 139 mg/dL (70-110)
[2021-09-14] VITALS (7 sets, daily range): BP systolic 116–152; BP diastolic 58–71; PULSE 64–69; RESP 18; TEMP 37–37.7; O2SAT 87–95
[2021-09-14 06:39] LABS: Absolute Lymphocyte Count 0.84 X10^3/uL (0.83-4.51); Absolute Neutrophil Count 3.3 X10^3/uL (2.0-7.7); Basophil# 0.02 X10^3/uL; Basophil% 0.4 % (0-1); Eosinophil# 0.08 X10^3/uL; Eosinophils% 1.7 % (0-5); Hematocrit 46.7 % (40-54); Hemoglobin 15.3 g/dL (13.0-16.5); Lymphocyte # 0.84 X10^3/ul (0.83-4.51); Lymphocyte % 17.6 % (19-41); Mean Corp Hgb Conc 32.8 g/dL (32-36); Mean Corpuscular Volume 91.6 fL (80-94); Mean Platelet Vol. 11.2 fl (6.2-12.0); Monocyte# 0.51 X10^3/uL; Monocyte% 10.7 % (0-10); NRBC Flagged by Analyzer 0 % (0-5); Neutrophil # 3.29 X10^3/uL (2.7-7.7); Neutrophil % 68.8 % (47-70); Platelet Count 100 K/mm3 (150-450); RBC Distribution Width CV 12.5 % (11.6-14.6); RBC Distribution Width SD 42.4 fl (35.1-43.9); White Blood Count 4.8 K/mm3 (4.4-11.0)
[2021-09-14 07:01] LABS: International Normalized Ratio 1.6; Prothrombin Time (Protime)PT. 18.4 SECONDS (11.7-14.9)
[2021-09-14 07:45] LABS: ALB/GLOB Ratio 0.6 RATIO (0.9-2.4); AST(SGOT) 53 U/L (15-37); Alanine Aminotransfer ALT/SGPT 37 U/L (16-61); Albumin, Serum 2.4 g/dL (3.2-5.0); Alkaline Phosphatase 65 U/L (45-117); Anion Gap 7 (5-15); BUN 17 mg/dL (7-18); BUN/Creat Ratio 16.7 RATIO (10-20); Chloride 106 mmol/L (98-107); Creatinine, Serum 1.02 mg/dL (0.70-1.30); EST Glomerular Filtration Rate 75 mL/min (>60); Est Glom Filt Rate - Afr Amer 90 mL/min (>60); Estimated Creatinine Clearance 59.64 ml/min; Globulin 3.9 g/dL (2.2-4.2); Glucose 110 mg/dL (74-106); Potassium 4.2 mmol/L (3.5-5.1); Protein, Total 6.3 g/dL (6.4-8.2); Sodium Level 133 mmol/L (136-145)
[2021-09-14] MEDS: Metoprolol Tartrate 50 MG Tablet PO (09:33)
[2021-09-14] MEDS: Enoxaparin 40 MG/0.4 ML Syringe SC ×2 (09:34→19:48)
[2021-09-14] MEDS: Magnesium Chloride 64 MG Delay Rel.Tablet 128 MG PO (09:35)
[2021-09-14 09:51] LABS: Bedside Glucose 109 mg/dL (70-110)
--- NOTE | 2021-09-14 09:52 | PCM.DC ---
Discharge Instructions Diet Discharge Diet: Low fat / Low cholesterol, 1800 Calorie Control Diet and 2000 mg Sodium Diet Activity Discharge Activity: Return to Normal Activity and May Not Drive Weight Bearing Status: Weight bearing as tolerated Dressing / Incision Call your doctor if you observe: Fever of 101 or Higher, Coldness, Increased Pain, Numbness or Tingling, Change in Color, Inability to urinate, Inability to have a bowel movement, Shortness of breath, Dizziness, Fainting spells, Swelling in the ankles, Chest pain, Prolonged hiccupping, Increased palpitations (irregular heartbeat), Calf discomfort and Uncontrolled pain Follow Up Care Test Results: Test results from this visit will be discussed in further detail at your follow-up appointment, if applicable. Discharge Plan Admission Admit Date/Time: 09/11/21 18:49 Attending Provider: Franko Spann Primary Care Provider: Sanju Luna Instructions Additional Instructions / Restrictions: Self quarantine for 3 weeks from the start of the symptoms, 09/09/2021 Advised booster COVID-19 Dose after symptoms are resolved. Discharge Orders/Prescriptions Prescriptions: New tamsulosin 0.4 mg Capsule 0.4 mg PO DAILY@1730 Qty: 30 RF: 0 dexamethasone 6 mg tablet 6 mg PO DAILY Qty: 10 RF: 0 pseudoephedrine-guaifenesin [Mucinex D] 60-600 mg tablet extended release 12 hr 2 tab PO BID Qty: 14 RF: 0 Continued metformin 500 mg tablet 500 mg PO DAILY RF: 0 simvastatin 40 mg tablet 40 mg PO QHS RF: 0 magnesium oxide 400 mg capsule 400 mg PO BID Qty: 180 RF: 3 silver sulfadiazine 1 % cream 1 applic topical DAILY Qty: 85 RF: 0 multivitamin with minerals 1 EACH tablet 1 tab PO DAILY RF: 0 warfarin 5 mg tablet 10 mg PO DAILY Qty: 180 RF: 4 metoprolol tartrate 50 mg tablet 50 mg PO BID Qty: 0 RF: 0 bumetanide 1 mg tablet 1 mg PO DAILY Qty: 90 RF: 3 spironolactone 50 mg tablet 50 mg PO DAILY Qty: 90 RF: 3 Referrals / Follow Up: Sanju Luna MD [Primary Care Provider] - Within 2 Weeks (for covid 19 pneumonia Suggest referral to Urologist for retention of urine/BPH)
--- NOTE | 2021-09-14 09:53 | DS.PCM_ITS ---
Providers Date of Admission: 09/11/21 Date of Discharge: 09/14/21 Primary Care Physician: Dr. Sanju Luna MD Consultations 09/11/21 19:40 Consult: Onc/Wound/film vault supervisor Routine Comment: Reason for Consult:: B LE Pretibial wounds-chronic Reason For Visit: COVID 19 INFECTION/GENERALIZED WEAKNESS Diagnosis Discharge Diagnosis (1) Generalized weakness: Status: Acute Code(s): R53.1 - Weakness (2) Fall: Status: Acute Code(s): W19.XXXA - Unspecified fall, initial encounter (3) COVID-19: Status: Acute Code(s): U07.1 - COVID-19 (4) Open facial wound: Status: Acute Code(s): S01.80XA - Unspecified open wound of other part of head, initial encounter Medications at Discharge Home Medications multivitamin with minerals 1 tab PO DAILY 10/18/18 metformin 500 mg tablet 500 mg PO DAILY tab 11/08/18 simvastatin 40 mg tablet 40 mg PO QHS 11/08/18 magnesium oxide 400 mg PO BID #180 cap 01/03/19 silver sulfadiazine 1 % topical cream 1 applic TOPICAL DAILY #85 g 03/15/21 spironolactone 50 mg tablet 50 mg PO DAILY #90 tab 09/02/21 bumetanide 1 mg PO DAILY #90 tab 09/14/21 dexamethasone 6 mg PO DAILY #10 tab 09/14/21 enoxaparin 40 mg SUBCUT BID #10 ml 09/14/21 metoprolol tartrate 50 mg PO BID #0 tab 09/14/21 pseudoephedrine-guaifenesin [Mucinex D] 2 tab PO BID #14 tab 09/14/21 tamsulosin 0.4 mg PO DAILY@1730 #30 cap 09/14/21 warfarin 10 mg PO DAILY #180 tab 09/14/21 Hospital Course Summary of Care Provided Hospital Course: This 81-year-old question intermittent admitted for generali zed weakness started on 09/09 along with temperature T-max 100.5 Fahrenheit, mild shortness of breath cough with clear sputum. Patient also had fall Marked generalized weakness/fall prior to admission. 1. Generalized weakness, fall disability most probably exacerbated by COVID-19 infection: Patient seen by PT and OT. Gait is steady without upper extremity support. Discussed with the comp field case manager for TCU. Blood culture x2 - for more than 48 hours. Blood cultures negative. Infectious cause ruled out 2. Orthostatic hypotension noticed 09/12 night when rapid response was called and in the morning patient had orthostatic hypotension without increasing heart rate. Sinus rhythm with premature supraventricular complexes at 79 bpm, QTC 490 ms. Troponin normal. Urine culture no growth. Patient had negative fluid balance. BUN elevated. 1 L Ringer lactate over 2 hours. Patient is already on Coumadin therefore doing CTA to r/o PE is futile. Repeat blood pressure has been good, 116/58, 152/72. Thigh-high PRABHJOT hose. 2. Acute COVID-19 infection with mild hypoxia during hospital course: The patient was not hypoxic during admission but got mild hypoxia. Started on dexamethasone. Symptoms of Covid started on 09/08/2021. Quarantine for at least 3 weeks from date of onset of symptoms. The patient is not vaccinated. No indication of remdesivir. Continue incentive spirometry and PEP. Patient was treated with 40 mg of Lovenox twice daily until patient is therapeutic again on his Coumadin Right-sided facial laceration : Was cleaned. History of stroke/CAD/hypertension/hyperlipidemia -Continue home metoprolol 50 mg twice daily -Continue simvastatin 40 mg nightly -Patient has had history of CABG in 2019 -Hold home Aldactone -Restart once volume status is euvolemic and p.o. intake is adequate Paroxysmal atrial fibrillation -Continue Coumadin 10 mg daily -INR is subtherapeutic at 1.6 and unfortunately remain low despite 10 mg Coumadin every day. Prescription for enoxaparin 40 SQ twice daily as INR is subtherapeutic. Advised to continue until INR is therapeutic and overlap for 2 days. Advised to continue Coumadin with daily INR monitoring Chronic diastolic heart failure -Most recent echo was 04/11/2019 and showed a normal EF but stage III diastolic dysfunction Continue Bumex/Aldactone with holding parameters DM-2: Glucose is normal. -Resumed home metformin -SSI moderate dose -Accu-Cheks before meals and at bedtime History of aortic valve replacement -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 Discharge follow-up instructions completed. Discharge process discussed with the patient and all questions were answered to patient's satisfaction. Discussed with comp field case manager. Home with home health care. Prescription sent to the patient's pharmacy. Advised to follow-up with urologist with referral from PCP. Total time spent, exact 35 minutes on discharge meds reconciliation, examination, coordination of care with nurses and ancillary staff, review of imaging and blood test and discussion with the patient on follow-up instructions Physical Exam Narrative Patient states he wants to go home. General: Alert, Oriented x3, Cooperative, morbid obese BMI 38.4 kg/m? HEENT: Hard of hearing. Atraumatic, PERRLA, EOMI, Normocephalic Oral: No Gingival or Mucosal Lesions/ Ulcerations Neck: Supple, No JVD, Negative Carotid Bruits Lungs: Air entry diminished in bilateral lung bases. No crepitation/rhonchi on 2 L of oxygen Cardiovascular: BP normal. No dizziness. Sinus rhythm, Normal S1, Normal S2, No murmurs Abdomen: Bowel Sounds Present, Soft, Non Tender, Non-Distended : No renal angle tenderness. No suprapubic tenderness. Condom catheter, removed Extremities: Bilateral mild pitting edema, Capillary Refill Less than 3 Seconds Skin: Superficial SCAB at side of right face. Bilateral superficial venous ulcer, right lower leg and left lower leg. Stasis dermatitis and venous hypertensive changes. Musculoskeletal: ROM restricted. Tenderness of bilateral lower extremity, knee and hip joints. Neurological: Cranial nerves II-XII grossly intact, DTR 2+/4 and Symmetrical, Neuro grossly intact Psych/Mental Status: Flat affect. Weight / BMI Weight Weight: 274 lb 0.553 oz Body Mass Index (BMI) 38.7 ABG / Lab / Microbiology Data Result Diagrams: 09/14/21 06:19 09/14/21 06:19 Laboratory: Laboratory Results - last 24 hr 09/13/21 10:55: Troponin I High Sens 41 09/13/21 12:26: POC Glucose 103 09/13/21 16:17: POC Glucose 125 H 09/13/21 16:55: WBC 5.4, RBC 5.12, Hgb 15.7, Hct 44.5, MCV 86.9 D, MCH 30.7, MCHC 35.3 D, RDW Std Deviation 39.6, RDW Coeff of Arnol 12.3, Plt Count 105 L, MPV 11.3, Immature Gran % (Auto) 1.300 H, Neut % (Auto) 72.5 H, Lymph % (Auto) 11.6 L, Otoe % (Auto) 12.2 H, Eos % (Auto) 2.0, Baso % (Auto) 0.4, Absolute Neuts (auto) 3.9, Absolute Lymphs (auto) 0.63 L, Nucleated RBC % 0 09/13/21 16:55: Sodium 134 L, Potassium 4.0, Chloride 104, Carbon Dioxide 24.0, Anion Gap 6, BUN 19 H, Creatinine 1.03, Estim Creat Clear Calc 59.06, Est GFR (MDRD) Af Amer 89, Est GFR (MDRD) Non-Af 74, BUN/Creatinine Ratio 18.4, Glucose 121 H, Calcium 7.9 L, Total Bilirubin 0.40, AST 48 H, ALT 38, Alkaline Phosphatase 70, Total Creatine Kinase 247, C-React Prot Ext Range 35.90 H, Total Protein 6.6, Albumin 2.8 L, Globulin 3.8, Albumin/Globulin Ratio 0.7 L 09/13/21 21:04: POC Glucose 139 H 09/14/21 06:19: PT 18.4 H, INR 1.6 09/14/21 06:19: WBC 4.8, RBC 5.10, Hgb 15.3, Hct 46.7, MCV 91.6 D, MCH 30.0, MCHC 32.8 D, RDW Std Deviation 42.4, RDW Coeff of Arnol 12.5, Plt Count 100 L, MPV 11.2, Immature Gran % (Auto) 0.800, Neut % (Auto) 68.8, Lymph % (Auto) 17.6 L, Otoe % (Auto) 10.7 H, Eos % (Auto) 1.7, Baso % (Auto) 0.4, Absolute Neuts (auto) 3.3, Absolute Lymphs (auto) 0.84, Nucleated RBC % 0 09/14/21 06:19: Sodium 133 L, Potassium 4.2, Chloride 106, Carbon Dioxide 20.0 L , Anion Gap 7, BUN 17, Creatinine 1.02, Estim Creat Clear Calc 59.64, Est GFR (MDRD) Af Amer 90, Est GFR (MDRD) Non-Af 75, BUN/Creatinine Ratio 16.7, Glucose 110 H, Calcium 8.0 L, Total Bilirubin 0.50, AST 53 H, ALT 37, Alkaline Phosphatase 65, Total Protein 6.3 L, Albumin 2.4 L, Globulin 3.9, Albumin/Globulin Ratio 0.6 L 09/14/21 08:37: POC Glucose 109 Microbiology: Microbiology 09/12/21 01:10 Urine, Clean Catch Urine Culture - Final Culture exhibits no growth. 09/11/21 17:23 Blood Culture (Wb) - Right Hand Blood Culture - Preliminary No growth in 48 hours. 09/11/21 16:00 Blood Culture (Wb) - Anticubital Left Blood Culture - Preliminary No growth in 48 hours. 09/11/21 16:14 Nasal Secretion SARS-CoV-2 Antigen (Rapid) - Final SARS-CoV-2 (COVID 19) Meaningful Use Info Meaningful Use Diagnoses (Choose all that apply): None applicable Discharge Plan Admission Admit Date/Time: 09/11/21 18:49 Attending Provider: Franko Spann Primary Care Provider: Sanju Luna Instructions Additional Instructions / Restrictions: Self quarantine for 3 weeks from the start of the symptoms, 09/09/2021 Advised booster COVID-19 Dose after symptoms are resolved. Discharge Orders/Prescriptions Prescriptions: New tamsulosin 0.4 mg Capsule 0.4 mg PO DAILY@1730 Qty: 30 RF: 0 dexamethasone 6 mg tablet 6 mg PO DAILY Qty: 10 RF: 0 pseudoephedrine-guaifenesin [Mucinex D] 60-600 mg tablet extended release 12 hr 2 tab PO BID Qty: 14 RF: 0 enoxaparin 40 mg/0.4 mL Syringe 40 mg subcut BID Qty: 10 RF: 0 Continued metformin 500 mg tablet 500 mg PO DAILY RF: 0 simvastatin 40 mg tablet 40 mg PO QHS RF: 0 magnesium oxide 400 mg capsule 400 mg PO BID Qty: 180 RF: 3 silver sulfadiazine 1 % cream 1 applic topical DAILY Qty: 85 RF: 0 multivitamin with minerals 1 EACH tablet 1 tab PO DAILY RF: 0 warfarin 5 mg tablet 10 mg PO DAILY Qty: 180 RF: 4 metoprolol tartrate 50 mg tablet 50 mg PO BID Qty: 0 RF: 0 bumetanide 1 mg tablet 1 mg PO DAILY Qty: 90 RF: 3 spironolactone 50 mg tablet 50 mg PO DAILY Qty: 90 RF: 3 Referrals / Follow Up: Sanju Luna MD [Primary Care Provider] - Within 2 Weeks (for covid 19 pneumonia Suggest referral to Urologist for retention of urine/BPH) Disposition Disposition (needs filled in before D/C Order can be placed): Home Health Service Charges/Coding Visit Charges Inpatient E&M: 84798 Disch Hosp
[2021-09-14] MEDS: dexAMETHasone 4 MG Tablet 6 MG PO (12:12)
[2021-09-14 12:40] LABS: Bedside Glucose 146 mg/dL (70-110)
--- NOTE | 2021-09-14 13:30 | CASEMGMT ---
Addendum entered by Lilliam Deshpande 09/14/21 15:31: [place] [facility] [place] Email to Mila to make aware of referral and need for portable tank and FWW. Addendum entered by Lilliam Deshpande 09/14/21 15:28: TC to pt . Made her aware of oxygen orders, calling DME when home, use of pox, FWW, HHC, lovenox injection and cost, and wound care. She verbalized understanding. Made her aware that [facility] has a nurse available 12/03 once initiated. LOKESH BILL to call pt tomorrow. Pt states her son and grandson will be at the [facility] when he gets home. Addendum entered by Lilliam Deshpande 09/14/21 14:45: Received tc from [facility] who states they can only do SOC on Sunday for pt. Spoke to , he states ok to draw INR on Sunday and skip tomorrow. Plan for SOC on Sunday. Spoke with pt nurse Christopher, he will instruct pt on administration of lovenox. LOKESH BILL in to pt room. Pt states he is agreeable to [facility]. Patient was provided a list of the [facility] provider including quality and resource use data and consistent with the patient?s preferred geographic region, medical needs, and insurance network. Patient is agreeable to having [facility]. Discussed with pt how he did with therapy today per report of [employer], he is agreeable to using a FWW at home and to having therapy to help regain his strength and independence. Pt aware of lovenox that he will receive and states he is able to administer this to himself. He states his dad gave himself insulin and he is aware of how to do this. Made him aware that nursing will educate him. Discussed his oxygen liter flow. Pt states he does have a pox at home. Pt asks this LOKESH BILL to call his to make aware of the above and to ask her to bring him clothes. Addendum entered by Lilliam Deshpande 09/14/21 14:16: TC to [facility], pt cost for Lovenox is $10. Original Note: Notified by hospitalist that pt will need lovenox at home. Pt also qualifies for O2. Spoke with therapy who reports pt did well with RAO yesterday and safe to go home. Looked up local in network facilities for HHC. [facility] is the only agency listed within 100 miles. TC to [facility]. She reviewed and states they will be able to accept on Sunday. Made her aware of the daily INR until therapeutic for two days per order. She will look into this and call LOKESH BILL back.
[2021-09-14] MEDS: Tamsulosin HCl 0.4 MG Capsule PO (17:08)
== END 2021-09-14 20:08 | disposition home health service (06) | DRG 178 ==
LOC: ED 18:52 → MS3 19:13
PROVIDERS: Admitting Provider Internal Medicine; Emergency Provider Emergency Medicine; PCP Family Medicine; Visit Provider Internal Medicine
DX: U07.1 COVID-19 (principal); I13.0 Hypertensive heart and chronic kidney disease with heart failure and stage 1 through stage 4 chronic kidney disease, or unspecified chronic kidney disease; I50.32 Chronic diastolic (congestive) heart failure; L97.811 Non-pressure chronic ulcer of other part of right lower leg limited to breakdown of skin; Z68.41 Body mass index [BMI] 40.0-44.9, adult; L97.921 Non-pressure chronic ulcer of unspecified part of left lower leg limited to breakdown of skin; E11.22 Type 2 diabetes mellitus with diabetic chronic kidney disease; I48.0 Paroxysmal atrial fibrillation; E66.01 Morbid (severe) obesity due to excess calories; E86.0 Dehydration; N18.9 Chronic kidney disease, unspecified; I25.10 Atherosclerotic heart disease of native coronary artery without angina pectoris; E78.5 Hyperlipidemia, unspecified; I95.1 Orthostatic hypotension; I25.2 Old myocardial infarction; G47.33 Obstructive sleep apnea (adult) (pediatric); M25.552 Pain in left hip; S01.411A Laceration without foreign body of right cheek and temporomandibular area, initial encounter; W01.10XA Fall on same level from slipping, tripping and stumbling with subsequent striking against unspecified object, initial encounter; N40.1 Benign prostatic hyperplasia with lower urinary tract symptoms; R09.02 Hypoxemia; Z79.84 Long term (current) use of oral hypoglycemic drugs; Z79.01 Long term (current) use of anticoagulants; H91.90 Unspecified hearing loss, unspecified ear; Z95.1 Presence of aortocoronary bypass graft; Z86.73 Personal history of transient ischemic attack (TIA), and cerebral infarction without residual deficits; Z79.899 Other long term (current) drug therapy; Z95.2 Presence of prosthetic heart valve; R33.8 Other retention of urine
CPT/HCPCS: 36415; 70450; 71045; 73502; 80053; 81001; 82550; 82962; 83605; 83735; 84100; 84443; 84484; 85025; 85610; 85730; 86140; 87040; 87086; 87426; 93005; 94667; 94668; 97110; 97162; 97166; 97530; 97535; 99251; 99285; J7030; J7120; A4216; G0463

== ENCOUNTER 2021-09-17 11:44 | Inpatient (IN) | payer MEDICARE, SELFPAY ==
--- NOTE | 2021-09-17 13:55 | RAD_ITS ---
STUDY: X-RAY CHEST REASON FOR EXAM: Male, 81 years old. INCREASING SHORTNESS OF BREATH TECHNIQUE: Frontal portable view of the chest COMPARISON: 11 September 2021 FINDINGS: The heart is moderately enlarged with sternotomy. Interstitial markings are increased in visibility and diffusely coarsened, probably combination of emphysema, scarring, pulmonary edema and viral pneumonia. Separation of these etiologies is not possible. There is no pneumothorax or pleural effusions. RAD/Chest 1 View (Portable) IMPRESSION: Interstitial opacities, possibly pulmonary edema and/or viral pneumonia and/or emphysema related. Recommend CT chest for definitive evaluation. Moderate cardiomegaly, open heart surgery. Electronically Signed: Ashlee York MD at 15:38 EST ,
--- NOTE | 2021-09-17 13:57 | EKG12_ITS ---
Test Reason : SOB Blood Pressure : / mmHG Vent. Rate : 063 BPM Atrial Rate : 063 BPM P-R Int : 206 ms QRS Dur : 090 ms QT Int : 458 ms P-R-T Axes : 027 005 078 degrees QTc Int : 468 ms Normal sinus rhythm Normal ECG Confirmed by CARLA ARRIAGA MD ([id number]), photo editor AWILDA REY ([id number]) on 09/19/2021 10:18:52 AM Referred By: ERIKA Confirmed By:CARLA ARRIAGA MD
--- NOTE | 2021-09-17 14:45 | EDS_ITS ---
DATE OF SERVICE 09/17/21 CHIEF COMPLAINT: Shortness of breath. HISTORY OF PRESENT ILLNESS: The patient is an 81-year-old gentleman with recent hospital admission for COVID-19 and hypoxia. He was discharged to home on the on 4 liters nasal cannula. The patient called EMS today secondary to increasing shortness of breath. EMS notes that his O2 sats were in the 70s on room air and only in the 80s on 4 liters nasal cannula. They placed him on nonrebreather and transported him for evaluation. He was 86% on nonrebreather on arrival to the ER. He denies chest pain or fever. PHYSICAL EXAMINATION: GENERAL: The patient was sitting upright in bed in no acute distress. He is speaking in full sentences. VITAL SIGNS: Blood pressure 102/63, temperature 99.1, heart rate 65, respiratory rate 35, pulse ox 90% on high-flow nasal cannula at 12 liters. LUNGS: Lung sounds are coarse bilaterally. HEART: Regular rate and rhythm. ABDOMEN: Soft and nontender. EXTREMITIES: No significant calf tenderness or edema. DIAGNOSTIC DATA: Portable chest x-ray shows patchy bilateral infiltrates. EKG is sinus at 63 with no acute ischemia. CBC with elevated white count at 12.73. Hemoglobin concentrate at 16.9. Chemistry studies significant for BUN of 27 and creatinine of 1.26. INR is supratherapeutic at 3.52. Troponin 27. EMERGENCY DEPARTMENT COURSE AND MEDICAL DECISION MAKING: The patient was given IV Decadron here. O2 saturations 89-90% on 12 liters high-flow nasal cannula. IMPRESSION: Hypoxia. COVID-19. DISPOSITION/PLAN: I have spoken with hospitalist for admission. We will admit.
--- NOTE | 2021-09-17 15:18 | HP_ITS ---
DATE OF ADMISSION September 17, 2021 CHIEF COMPLAINT Acute hypoxic respiratory failure HISTORY OF PRESENT ILLNESS History is limited by patient's significant hearing loss Patient is 81-year-old who was recently hospitalized for mild Covid symptoms and was picked up by EMS for breathing problems. Patient was recently discharged with home oxygen and dexamethasone. However today he noted his oxygen saturations had fallen to 80. Per EMS evaluation he was very weak and his oxygen sats on their arrival were in the 70s he was placed on a nonrebreather and increased to 86% Patient states at home he was not eating as much and, he did not have any recent falls. Patient did notice his oxygen fluctuating significantly on his pulse oximeter. Patient was evaluated in the ED and chest x-ray did show significant congestion and findings of Covid pneumonia. Patient was transitioned to high flow 12 L nasal cannula and they did have a discussion regarding intubation if he progresses and he stated that he would not want to be intubated. On presentation to the ED blood pressure was 102/63 heart rate of 65 -with oxygen sat at 90% on 12 L high flow nasal cannula. He was afebrile at 99.1 WBC was 12.73 and hemoglobin of 6.9 and troponin was normal PAST MEDICAL HISTORY Atherosclerosis of coronary artery of [place] heart without angina pectoris Chronic diastolic (congestive) heart failure Chronic renal insufficiency Dyspnea Essential (primary) hypertension History of CVA (cerebrovascular accident) (2010) Hyperlipidemia Hyperlipidemia Left leg cellulitis Non-rheumatic aortic stenosis Non-ST elevation (NSTEMI) myocardial infarction (10/18/18) Obesity Obstructive sleep apnea Paroxysmal atrial fibrillation Postoperative atrial fibrillation Type 2 diabetes mellitus Ulcer of left lower extremity with fat layer exposed Venous insufficiency of both lower extremities Venous insufficiency of left leg PAST SURGICAL HISTORY H/O aortic valve replacement (10/29/18) 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) History of cataract surgery History of left heart catheterization (10/21/18) History of tonsillectomy MEDICATIONS multivitamin with minerals 1 tab PO DAILY 10/18/18 metformin 500 mg tablet 500 mg PO DAILY tab 11/08/18 simvastatin 40 mg tablet 40 mg PO QHS 11/08/18 magnesium oxide 400 mg PO BID #180 cap 01/03/19 silver sulfadiazine 1 % topical cream 1 applic TOPICAL DAILY #85 g 03/15/21 spironolactone 50 mg tablet 50 mg PO DAILY #90 tab 09/02/21 bumetanide 1 mg PO DAILY #90 tab 09/14/21 dexamethasone 6 mg PO DAILY #10 tab 09/14/21 enoxaparin 40 mg SUBCUT BID #10 ml 09/14/21 metoprolol tartrate 50 mg PO BID #0 tab 09/14/21 pseudoephedrine-guaifenesin [Mucinex D] 2 tab PO BID #14 tab 09/14/21 tamsulosin 0.4 mg PO DAILY@1730 #30 cap 09/14/21 warfarin 10 mg PO DAILY #180 tab 09/14/21 ALLERGIES Amoxicillin, penicillin benzonateate SOCIAL HISTORY at home w/ Smoking Status: Never smoker alcohol intake: never FAMILY HISTORY Mother Hypertension Diabetes Heart disease Father Heart disease Hypertension Diabetes Kidney disease REVIEW OF SYSTEMS no fevers chills nausea or vomiting, chest pain or racing . he does + shortness of breath No trouble seeing or swallowing No abdominal pain or significant diarrhea constipation or dysuria, no hematuria No trouble with severe headaches or syncope prior to this admission Is chronically hard of hearing He has decreased appetite PHYSICAL EXAM Physical Exam Const alert, and hard of hearing and has dry mucous membranes. He is mildly lethargic. Patient is very obese General Appearance: cooperative Exam Limitations: no limitations HEENT normocephalic and head/scalp atraumatic Eyes PERRL and EOMs intact bilaterally Resp Resp Narrative: Good air movement with distant lung breath sounds and crackles on right lower lobe and left lower lobe cardio regular rate and regular rhythm GI soft to palpation, non-tender and non-distended Extremity Extremity Narrative: There is skin break chronic venous stasis changes PERTINENT DIAGNOSTIC FINDINGS Cr 4.01. WBC of 20k. Trop is normal at 64 and ammonia is 28 Chest x-ray showed mild congestion in the CT head did not show any acute changes Assessement and Plan 2. Acute COVID-19 infection with mild hypoxia during hospital course: The patient was not consistently or severely hypoxic during previous admission, however is much worse today and was found to be hypoxic in the 70s Covid symptoms started 09/08/2021. The patient is not vaccinated. remdesivir now indicated. Incentive spirometryand PEP, duonebs q4 [place]. Started on dexamethasone for 4 more days. Start Remdesivir. Check LFTs tomorrow and monitor renal function, liver enzymes daily. At this time this is most consistent with Covid pneumonia, low utility for antibiotics unless his situation changes or progresses. (febrile, etc) Give Iv lasix 20 now, Check procalcitonin Already anticoagulated and supratherapeutic at 3.5 Paroxysmal atrial fibrillation -daily INR -Hold Coumadin at this point, till INR decreases and resume on Sunday or Sunday pending INR Chronic diastolic heart failure -Most recent echo was 04/11/2019 and showed a normal EF but stage III diastolic dysfunction -May continue diuretics -Bumex/Aldactone DM-2 -Hold home metformin -SSI moderate dose -Accu-Cheks before meals and at bedtime History of aortic valve replacement -[employer] trifecta bioprosthetic valve in place 2018 -No current issues Morbid obesity -BMI is 41.8 -Complicates treatment, prognosis, outcomes DVT prophylaxis -INR is 3.5 -Given BMI of 41.8 will coumadin Patient is a DNR/DNI- Patient stated to ED he did not want to be intubated. Cardiac Resuscitation was also discussed. The patient opted for no intubation or CPR. Constantino Eleno code [id number]
[2021-09-17 20:00] VITALS: BP 128/78; PULSE 78; RESP 22; TEMP 36.4; O2SAT 92
[2021-09-17 21:07] LABS: Absolute Lymphocyte Count 0.37 X10^3/uL (0.83-4.51); Absolute Neutrophil Count 11.3 X10^3/uL (2.0-7.7); Basophil# 0.02 X10^3/uL; Basophil% 0.2 % (0-1); Eosinophil# 0.02 X10^3/uL; Eosinophils% 0.2 % (0-5); Hematocrit 48.3 % (40-54); Hemoglobin 16.9 g/dL (13.0-16.5); Lymphocyte # 0.37 X10^3/ul (0.83-4.51); Lymphocyte % 2.9 % (19-41); Mean Corpuscular Hgb 30.8 pg (27.0-32.0); Mean Corpuscular Volume 88.1 fL (80-94); Mean Platelet Vol. 10.9 fl (6.2-12.0); Monocyte# 0.82 X10^3/uL; Monocyte% 6.4 % (0-10); NRBC Flagged by Analyzer 0 % (0-5); Neutrophil # 11.31 X10^3/uL (2.7-7.7); Neutrophil % 88.8 % (47-70); POSITIVE DIFFERENTIAL YES; Platelet Count 184 K/mm3 (150-450); RBC Distribution Width CV 12.5 % (11.6-14.6); RBC Distribution Width SD 40.5 fl (35.1-43.9); Red Blood Count 5.48 M/mm3 (4.6-6.2); White Blood Count 12.7 K/mm3 (4.4-11.0)
[2021-09-17 21:09] LABS: Differential Indicated SCAN CRITERIA MET
[2021-09-17 21:10] LABS: Differential Comment SCANNED
[2021-09-17 21:11] LABS: International Normalized Ratio 3.5; Prothrombin Time (Protime)PT. 34.5 SECONDS (11.7-14.9)
[2021-09-17 21:45] VITALS: PULSE 78
[2021-09-17] MEDS: Metoprolol Tartrate 50 MG Tablet PO (21:45)
[2021-09-17] MEDS: Atorvastatin Calcium 20 MG Tablet PO (21:45)
[2021-09-17] MEDS: Magnesium Chloride 64 MG Delay Rel.Tablet 128 MG PO (21:45)
[2021-09-17] MEDS: Furosemide 20 MG/2 ML VIAL IV (21:45)
[2021-09-17 22:00] VITALS: BP 134/67; PULSE 65; RESP 20; TEMP 36.6; O2SAT 94
[2021-09-17 23:26] VITALS: BMI 36.6
[2021-09-18] VITALS (40 sets, daily range): BP systolic 110–136; BP diastolic 65–82; PULSE 49–68; RESP 12–34; TEMP 36.6–37.6; O2SAT 87–100
[2021-09-18 01:44] LABS: Glucose 147 mg/dL (74-106)
[2021-09-18 01:45] LABS: Anion Gap 9 (5-15); BUN 27 mg/dL (7-18); BUN/Creat Ratio 21.4 RATIO (10-20); Calcium,Total 8.5 mg/dL (8.5-10.1); Chloride 101 mmol/L (98-107); Creatinine, Serum 1.26 mg/dL (0.70-1.30); EST Glomerular Filtration Rate 59 mL/min (>60); Est Glom Filt Rate - Afr Amer 72 mL/min (>60); Potassium 4.3 mmol/L (3.5-5.1); Sodium Level 135 mmol/L (136-145); Troponin-I HS 27 pg/mL (3.0-78.0)
[2021-09-18 06:21] LABS: Absolute Lymphocyte Count 0.58 X10^3/uL (0.83-4.51); Absolute Neutrophil Count 11.1 X10^3/uL (2.0-7.7); Basophil# 0.02 X10^3/uL; Basophil% 0.2 % (0-1); Hematocrit 48.6 % (40-54); Hemoglobin 16.8 g/dL (13.0-16.5); Lymphocyte # 0.58 X10^3/ul (0.83-4.51); Lymphocyte % 4.6 % (19-41); Mean Corp Hgb Conc 34.6 g/dL (32-36); Mean Corpuscular Hgb 30.3 pg (27.0-32.0); Mean Corpuscular Volume 87.7 fL (80-94); Mean Platelet Vol. 10.8 fl (6.2-12.0); Monocyte# 0.83 X10^3/uL; Monocyte% 6.6 % (0-10); NRBC Flagged by Analyzer 0 % (0-5); Neutrophil # 11.06 X10^3/uL (2.7-7.7); Neutrophil % 87.3 % (47-70); POSITIVE DIFFERENTIAL YES; Platelet Count 213 K/mm3 (150-450); RBC Distribution Width CV 12.4 % (11.6-14.6); Red Blood Count 5.54 M/mm3 (4.6-6.2); White Blood Count 12.7 K/mm3 (4.4-11.0)
[2021-09-18 06:42] LABS: International Normalized Ratio 3.2; Prothrombin Time (Protime)PT. 32.3 SECONDS (11.7-14.9)
[2021-09-18 06:57] LABS: Differential Indicated SCAN CRITERIA MET
[2021-09-18] MEDS: Ipratropium/Albuterol Sulfate 3 ML AMPUL.NEB INHALATION ×4 (07:00→14:55)
--- NOTE | 2021-09-18 07:05 | PCS.PANDOC ---
PANDEMIC DOCUMENTATION INITIATED: Date: 04/04/2021 Time: 190
[2021-09-18 07:06] LABS: ALB/GLOB Ratio 0.5 RATIO (0.9-2.4); AST(SGOT) 52 U/L (15-37); Alanine Aminotransfer ALT/SGPT 45 U/L (16-61); Albumin, Serum 2.5 g/dL (3.2-5.0); Alkaline Phosphatase 78 U/L (45-117); Anion Gap 8 (5-15); BUN 28 mg/dL (7-18); Calcium,Total 8.8 mg/dL (8.5-10.1); Chloride 103 mmol/L (98-107); EST Glomerular Filtration Rate 76 mL/min (>60); Est Glom Filt Rate - Afr Amer 92 mL/min (>60); Estimated Creatinine Clearance 62.75 ml/min; Globulin 4.7 g/dL (2.2-4.2); Glucose 130 mg/dL (74-106); Potassium 4.4 mmol/L (3.5-5.1); Protein, Total 7.2 g/dL (6.4-8.2); Sodium Level 134 mmol/L (136-145)
[2021-09-18 07:26] LABS: Bedside Glucose 136 mg/dL (70-110)
--- NOTE | 2021-09-18 07:49 | CON.PCM.CC_ITS ---
Assessment & Plan Assessment/Plan (1) COVID-19: PLAN: RECOMMENDATIONS: 1. Transition from heated high flow to BiPAP and wean FiO2 for saturations greater than 90%. 2. Consider transfer to ICU level of care. 3. Continue to hold Coumadin and check INR daily. 4. Continue Decadron to complete 10 days of therapy. 5. Continue diuretic therapy as tolerated by hemodynamics and renal function. 6. Check BNP and CRP. 7. CODE STATUS updated to full, per discussion. IMPRESSIONS: 1. Acute hypoxemic respiratory failure secondary to COVID-19 pneumonia The patient presented to the hospital on September 17 with worsening dyspnea and hypoxemia, after having just been discharged from the hospital on September 14 with COVID-19 pneumonia. The patient is systemically anticoagulated on Coumadin at his baseline. INR was supratherapeutic. The patient was restarted on Decadron. Although remdesivir was ordered, the patient subsequently refused the medication. His oxygen requirement has continued to increase since yesterday. Saturations are marginal on heated high flow at the present time. Recommend transitioning the patient to BiPAP therapy and weaning FiO2 for saturations greater than 90%. Check CRP as well. The patient is at high risk for further clinical decompensation. Recommend transfer to ICU. 2. Chronic heart failure with preserved ejection fraction Continue baseline diuretic regimen. Check BNP. 3. Coagulopathy The patient is systemically anticoagulated on Coumadin as an outpatient. His INR on September 16 was noted to be 5.0. Recommend rechecking coagulation profile this morning. Once INR is no longer therapeutic, start either therapeutic Lovenox or heparin infusion. 4. Obesity/history of CVA/coronary artery disease/hypertension/hyperlipidem ia/paroxysmal atrial fibrillation/diabetes mellitus Complicates care, management, recovery and prognosis. Continue to hold Coumadin. Continue sliding scale insulin coverage. CODE status: Discussed CODE status at length including difference between FULL code, DNR-CCA and DNR-CC status. Following discussions about the differences in these status, patient requested FULL CODE STATUS. Advanced Care Planning Face to Face Time: 12 minutes This note was generated with [employer] software. It may contain incorrect words, spelling, and punctuation that were not noted in checking the note before signing. HPI Consult Data Date of Consult: 09/18/21 HPI Narrative Reason for Consultation: Acute hypoxemic respiratory failure secondary to COVID-19 pneumonia HPI Narrative: The patient is an 81-year-old male, with a history as outlined below, who presented to the emergency department on September 17 with worsening shortness of breath and hypoxemia. The patient was just admitted to the hospital September 11 with generalized weakness in the setting of COVID-19 pneumonia, with symptom onset sometime around September 08. The patient is vaccinated but not yet boosted. Initial laboratory evaluation revealed a white blood cell count of 13,000. Coagulation profile revealed an elevated INR at 5.0. Chemistry profile was unremarkable. Rapid coronavirus antigen testing was positive on September 11. Chest x-ray demonstrated bilateral interstitial airspace opacities. Although remdesivir was initially ordered, the patient subsequently refused the medication. He was started on Decadron as well. The patient was admitted to the medical surgical floor for further management. Since his admission yesterday, the patient's oxygen demand has increased significantly. He is currently on maximum support through the Airvo heated high flow system. I did speak with the patient at the bedside regarding his goals of care. He did indicate that he would be okay with resuscitative efforts including intubation if needed. [facility] Medical History (Updated 09/11/21 @ 20:23 by Zainab Herron) Atherosclerosis of coronary artery of [place] heart without angina pectoris Chronic diastolic (congestive) heart failure Chronic renal insufficiency Deafness in left ear Dyspnea Essential (primary) hypertension History of CVA (cerebrovascular accident) (2010) Hyperlipidemia Hyperlipidemia Left leg cellulitis Non-rheumatic aortic stenosis Non-ST elevation (NSTEMI) myocardial infarction (10/18/18) Obesity Obstructive sleep apnea Paroxysmal atrial fibrillation Postoperative atrial fibrillation Type 2 diabetes mellitus Ulcer of left lower extremity with fat layer exposed Venous insufficiency of both lower extremities Venous insufficiency of left leg Wears hearing aid in both ears Home Medications multivitamin with minerals 1 tab PO DAILY 10/18/18 [History Last Taken 10/18/18 08:00] metformin 500 mg tablet 500 mg PO DAILY tab 11/08/18 [History Last Taken Unknown] simvastatin 40 mg tablet 40 mg PO QHS 11/08/18 [History Last Taken 01/14/19 22:00] metoprolol tartrate 50 mg PO BID #0 tab 09/14/21 [Rx Last Taken 01/15/19] pseudoephedrine-guaifenesin [Mucinex D] 2 tab PO BID #14 tab 09/14/21 [Rx Last Taken Unknown] bumetanide 1 mg PO DAILY 09/18/21 [History Last Taken Unknown] dexamethasone 6 mg PO DAILY 09/18/21 [History Last Taken Unknown] magnesium oxide 400 mg PO BID 09/18/21 [History Last Taken Unknown] silver sulfadiazine 1 applic TOPICAL DAILY 09/18/21 [History Last Taken Unknown] spironolactone 50 mg PO DAILY 09/18/21 [History Last Taken Unknown] tamsulosin 0.4 mg PO DAILY@1730 09/18/21 [History Last Taken Unknown] warfarin 5 mg PO DAILY 09/18/21 [History Last Taken Unknown] Allergy/AdvReac Type Severity Reaction Status Date / Time No Known Allergies Allergy Verified 03/15/21 09:54 Surgical History H/O aortic valve replacement (10/29/18) 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 Jessy Hemphill DO) Smoking Status: Never smoker alcohol intake: never substance use type: does not use ROS Constitutional Constitutional: Reports fatigue, malaise and weakness Eyes Eyes: Denies blurry vision or change in vision ENT HEENT: Denies dizziness, headache(s) or sore throat Cardiovascular Cardiovascular: Reports dyspnea Respiratory/Chest Respiratory/Chest: Reports cough and dyspnea Gastrointestinal Gastrointestinal: Denies abdominal pain, diarrhea, nausea or vomiting Genitourinary Genitourinary: Denies difficulty urinating Musculoskeletal Musculoskeletal: Denies arthralgias, back pain or joint pain Integumentary Integumentary: Denies lesions, rash or skin ulcer Neurologic Neurologic: Denies abnormal gait or abnormal speech Psychiatric Psychiatric: Denies anxiety or depression Endocrine Endocrinology: Reports fatigue Hematologic/Lymphatic Hematologic/Lymphatic: Denies easy bleeding or easy bruising Physical Exam Const alert General Appearance: cooperative and ill appearing Nutritional Appearance: obese HEENT normocephalic, head/scalp atraumatic and moist oral mucous membranes General Ear: hearing grossly impaired Eyes PERRL, EOMs intact bilaterally and conjunctivae normal Neck supple General: trachea midline Chest inspection of chest normal Resp Effort and Inspection: tachypneic and labored Auscultation: diminished lung sounds Cardio regular rate and regular rhythm GI normal to inspection, nondistended, normoactive bowel sounds Extremity no clubbing, cyanosis or edema Skin no rashes or lesions noted Neuro CN's II-XII intact bilaterally, moves all extremities and no focal motor deficits Psych cooperative and affect normal Lab / Micro Data Result Diagrams: 09/18/21 06:05 09/18/21 06:05 Labs: Laboratory Results - last 24 hr 09/17/21 11:48: Sodium 135 L, Potassium 4.3, Chloride 101, Carbon Dioxide 25.0, Anion Gap 9, BUN 27 H, Creatinine 1.26, Est GFR (MDRD) Af Amer 72, Est GFR (MDR D) Non-Af 59 L, BUN/Creatinine Ratio 21.4 H, Glucose 147 H, Calcium 8.5, Troponin I High Sens 27 09/17/21 11:48: WBC 12.7 H, RBC 5.48, Hgb 16.9 H, Hct 48.3, MCV 88.1, MCH 30.8, MCHC 35.0 D, RDW Std Deviation 40.5, RDW Coeff of Arnol 12.5, Plt Count 184, MPV 10.9, Immature Gran % (Auto) 1.500 H, Neut % (Auto) 88.8 H, Lymph % (Auto) 2.9 L , Harper % (Auto) 6.4, Eos % (Auto) 0.2, Baso % (Auto) 0.2, Absolute Neuts (auto) 11.3 H, Absolute Lymphs (auto) 0.37 L, Nucleated RBC % 0, Differential Comment SCANNED 09/17/21 11:48: PT 34.5 H, INR 3.5 09/18/21 05:36: POC Glucose 136 H 09/18/21 06:05: Sodium 134 L, Potassium 4.4, Chloride 103, Carbon Dioxide 23.0, Anion Gap 8, BUN 28 H, Creatinine 1.00, Estim Creat Clear Calc 62.75, Est GFR (MDRD) Af Amer 92, Est GFR (MDRD) Non-Af 76, BUN/Creatinine Ratio 28.0 H, Glucose 130 H, Calcium 8.8, Total Bilirubin 0.70, AST 52 H, ALT 45, Alkaline Phosphatase 78, Total Protein 7.2, Albumin 2.5 L, Globulin 4.7 H, Albumin/Globulin Ratio 0.5 L 09/18/21 06:05: PT 32.3 H, INR 3.2 09/18/21 06:05: WBC 12.7 H, RBC 5.54, Hgb 16.8 H, Hct 48.6, MCV 87.7, MCH 30.3, MCHC 34.6, RDW Std Deviation 40.0, RDW Coeff of Arnol 12.4, Plt Count 213, MPV 10.8, Immature Gran % (Auto) 1.300 H, Neut % (Auto) 87.3 H, Lymph % (Auto) 4.6 L , Harper % (Auto) 6.6, Eos % (Auto) 0.0, Baso % (Auto) 0.2, Absolute Neuts (auto) 11.1 H, Absolute Lymphs (auto) 0.58 L, Nucleated RBC % 0 Micro: Microbiology 09/17/21 20:50 Urine, Random Streptococcus pneumoniae Antigen (M - Final Radiology Impression Chest X-Ray 09/17/21 13:55 IMPRESSION: Interstitial opacities, possibly pulmonary edema and/or viral pneumonia and/or emphysema related. Recommend CT chest for definitive evaluation. Moderate cardiomegaly, open heart surgery. Electronically Signed: Ashlee York MD at 15:38 EST , Charges/Coding Visit Charges Inpatient E&M: 68201 Init Hosp L3 Procedures Hospitalists Procedures: 88983 Advncd Care Plan 30 Min
[2021-09-18 08:18] LABS: Procalcitonin 0.09 ng/mL (0.00-0.09)
[2021-09-18 08:23] LABS: BNP,B-Type NATRIURETIC PEPTIDE 42.9 pg/mL (0-100)
[2021-09-18] MEDS: Spironolactone 25 MG Tablet 50 MG PO (09:01)
[2021-09-18] MEDS: dexAMETHasone 4 MG Tablet 6 MG PO (09:01)
[2021-09-18] MEDS: Magnesium Chloride 64 MG Delay Rel.Tablet 128 MG PO ×2 (09:01→23:06)
[2021-09-18] MEDS: Multivitamins,Therapeutic Tablet 1 TABLET PO (09:02)
[2021-09-18] MEDS: Tamsulosin HCl 0.4 MG Capsule PO (09:02)
[2021-09-18] MEDS: Bumetanide 2 MG Tablet 1 MG PO (09:02)
--- NOTE | 2021-09-18 10:42 | CASEMGMT ---
RNCM Re-Admission note: Patient was admitted for Covid 09/11-09/14/21. Dc'd w/Home O2-[employer], [facility] HH w/SOC 09/16/21, Lovenox. Called patient Francisca Milligan, answered and this senior grant writer introduced self/role. Patient was initially admitted to [facility] and increased LOC to ICU. Currently on Bipap, FiO2 100% to Airvo, FiO2 94%. Was re-admitted for worsening of Covid/Hypoxia. Per , Confirmed had oxygen from [employer] and was using it, confirmed [facility] HH was out and patient was doing Lovenox injections, last one Sunday. Wound Care- states pattitient had a dressing to leg and she just left that on but did not require HH SN wound care. Aware RNCM and SW will continue to follow for patient condition/progression for DC planning determination. Denies any further questions, concerns at this time. States she is positive for Covid as well but only has a itchy/scrathcy throat and still able to care for herself. Son Héctor lives next door and is a good support, he is not ill. Naomi,RYAN
[2021-09-18] MEDS: Silver Sulfadiazine 1% Crm 50 gm Bottle 50 APPLIC TOPICAL ×2 (10:55→23:07)
[2021-09-18] MEDS: Insulin Lispro 100 UNIT/ML INSULN.PEN SC ×3 (11:25→23:07)
[2021-09-18 11:30] LABS: Bedside Glucose 211 mg/dL (70-110)
[2021-09-18 13:16] LABS: Bedside Glucose 196 mg/dL (70-110)
--- NOTE | 2021-09-18 14:06 | PN.HOSP_ITS ---
Subjective Subjective Patient seen and examined. He was admitted with a complaint of worsening shortness of breath and hypoxia. He. In the hospital from March 11- for COVID- 19 pneumonia with associated generalized weakness. His symptoms are started on September 08. He has been managed for acute hypoxic respiratory failure due to COVID-19 pneumonia. Patient was on AirVo, but was tachypneic. He is coughing. He denies any fever, chills, nausea, vomiting or diarrhea. Review of systems is otherwise negative. Objective Data Objective Data Vital Signs: Vital Signs Temp Pulse Resp BP Pulse Ox 98.3 F 56 L 18 117/68 99 09/18/21 12:00 09/18/21 13:00 09/18/21 13:00 09/18/21 13:00 09/18/21 13:00 Oxygen Flow Rate (L/min) 60 Oxygen Delivery Method Bi-pap Weight: 263 lb 0.007 oz Body Mass Index (BMI) 36.6 Intake & Output: Intake and Output for Last 24 Hours 09/16/21 09/17/21 09/18/21 23:59 23:59 23:59 Output Total 350 / 350 1250 / 1250 Balance -350 / -350 -1250 / -1250 Lab / Micro Data Result Diagrams: 09/18/21 06:05 09/18/21 06:05 Labs: Laboratory Results - last 24 hr 09/17/21 11:48: Sodium 135 L, Potassium 4.3, Chloride 101, Carbon Dioxide 25.0, Anion Gap 9, BUN 27 H, Creatinine 1.26, Est GFR (MDRD) Af Amer 72, Est GFR (MDRD) Non-Af 59 L, BUN/Creatinine Ratio 21.4 H, Glucose 147 H, Calcium 8.5, Troponin I High Sens 27 09/17/21 11:48: WBC 12.7 H, RBC 5.48, Hgb 16.9 H, Hct 48.3, MCV 88.1, MCH 30.8, MCHC 35.0 D, RDW Std Deviation 40.5, RDW Coeff of Arnol 12.5, Plt Count 184, MPV 10.9, Immature Gran % (Auto) 1.500 H, Neut % (Auto) 88.8 H, Lymph % (Auto) 2.9 L , Tucker % (Auto) 6.4, Eos % (Auto) 0.2, Baso % (Auto) 0.2, Absolute Neuts (auto) 11.3 H, Absolute Lymphs (auto) 0.37 L, Nucleated RBC % 0, Differential Comment SCANNED 09/17/21 11:48: PT 34.5 H, INR 3.5 09/17/21 21:36: POC Glucose 196 H 09/18/21 05:36: POC Glucose 136 H 09/18/21 06:05: Sodium 134 L, Potassium 4.4, Chloride 103, Carbon Dioxide 23.0, Anion Gap 8, BUN 28 H, Creatinine 1.00, Estim Creat Clear Calc 62.75, Est GFR (MDRD) Af Amer 92, Est GFR (MDRD) Non-Af 76, BUN/Creatinine Ratio 28.0 H, Glucose 130 H, Calcium 8.8, Total Bilirubin 0.70, AST 52 H, ALT 45, Alkaline Phosphatase 78, Total Protein 7.2, Albumin 2.5 L, Globulin 4.7 H, Albumin/Globulin Ratio 0.5 L 09/18/21 06:05: Procalcitonin 0.09 09/18/21 06:05: B-Natriuretic Peptide 42.9 09/18/21 06:05: PT 32.3 H, INR 3.2 09/18/21 06:05: WBC 12.7 H, RBC 5.54, Hgb 16.8 H, Hct 48.6, MCV 87.7, MCH 30.3, MCHC 34.6, RDW Std Deviation 40.0, RDW Coeff of Arnol 12.4, Plt Count 213, MPV 10.8, Immature Gran % (Auto) 1.300 H, Neut % (Auto) 87.3 H, Lymph % (Auto) 4.6 L , Tucker % (Auto) 6.6, Eos % (Auto) 0.0, Baso % (Auto) 0.2, Absolute Neuts (auto) 11.1 H, Absolute Lymphs (auto) 0.58 L, Nucleated RBC % 0 09/18/21 06:07: C-React Prot Ext Range 111.00 H 09/18/21 06:07: B-Natriuretic Peptide Cancelled 09/18/21 11:23: POC Glucose 211 H Micro: Microbiology 09/17/21 20:50 Urine, Random Streptococcus pneumoniae Antigen (M - Final Radiography Diagnostic Testing: Radiology Impression Chest X-Ray 09/17/21 13:55 IMPRESSION: Interstitial opacities, possibly pulmonary edema and/or viral pneumonia and/or emphysema related. Recommend CT chest for definitive evaluation. Moderate cardiomegaly, open heart surgery. Electronically Signed: Ashlee York MD at 15:38 EST Reading Location ID and State: [facility] / [place] Tel , Service support , Physical Exam Const alert and oriented x3 Orientation / Consciousness: lethargic Exam Limitations: no limitations HEENT head/scalp atraumatic Head and Scalp: normocephalic Mouth: dry mucous membranes Eyes PERRL, EOMs intact bilaterally and conjunctivae normal Neck no lymphadenopathy Resp Resp Narrative: diminished breath sounds bibasally, few wheezes, on AiRVo Cardio regular rate, regular rhythm, S1 normal heart sound, S2 normal heart sound and no murmurs GI normal to inspection, nondistended, normoactive bowel sounds, soft to palpation, non-tender and non-distended Extremity normal to inspection, full ROM and no clubbing, cyanosis or edema Peripheral Pulses: Yes pulses 2+ throughout Skin no rashes or lesions noted Neuro oriented x3 and CN's II-XII intact bilaterally Sensorium / Orientation: awake and alert Psych affect normal Assessment & Plan Assessment/Plan (1) COVID-19: (2) Acute respiratory failure with hypoxia: PLAN: #Acute hypoxic respiratory failure due to covid 19 pneumonia * was on AirVo, and was maxed out on it. He was still tachypneic. * on decadron. 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 * he has received both doses of moderna vaccine, but says he wont take the booster because he has heard it is not effective. * symptoms started Sep 08. We will therefore need to remain in isolation till September 28 to complete a 20-day course of self-isolation. * Consult ID as patient may qualify for baricitinib. * #Supratherapeutic INR * INR was 5 on admission. Coumadin on hold. * Start on therapeutic lovenox once INR normalises * INR is down to 3.2. * #Heart failure with reduced EF * On Bumex as well as spironolactone. * BNp was only 42.9 * #Aortic stenosis s/p aortic valve replacement * On Coumadin. INR was supratherapeutic on admission so Coumadin was held. #type 2 diabetes mellitus: Metformin on hold. Insulin sliding scale. Accu- Cheks AC at bedtime. #Hyperlipidemia: On statin #Hypertension: on metoprolol #BPH: On Flomax DVT prophylaxis: coumadin on hold. to stat therapeutic lovenox once INR is WNl Charges/Coding Visit Charges Inpatient E&M: 80476 Subs Hosp L3
[2021-09-18 15:56] LABS: Bedside Glucose 172 mg/dL (70-110)
[2021-09-18 22:45] LABS: Bedside Glucose 161 mg/dL (70-110)
[2021-09-18] MEDS: Metoprolol Tartrate 50 MG Tablet PO (23:06)
[2021-09-18] MEDS: MELATONIN 3 MG TABLET PO (23:07)
[2021-09-18] MEDS: Atorvastatin Calcium 20 MG Tablet PO (23:07)
[2021-09-19] VITALS (38 sets, daily range): BP systolic 109–150; BP diastolic 50–84; PULSE 47–75; RESP 12–30; TEMP 35.8–36.6; O2SAT 90–100
[2021-09-19 05:56] LABS: Absolute Lymphocyte Count 0.69 X10^3/uL (0.83-4.51); Absolute Neutrophil Count 11.4 X10^3/uL (2.0-7.7); Basophil# 0.06 X10^3/uL; Basophil% 0.5 % (0-1); Eosinophil# 0.01 X10^3/uL; Eosinophils% 0.1 % (0-5); Hematocrit 51.2 % (40-54); Hemoglobin 17.2 g/dL (13.0-16.5); Lymphocyte # 0.69 X10^3/ul (0.83-4.51); Lymphocyte % 5.2 % (19-41); Mean Corp Hgb Conc 33.6 g/dL (32-36); Mean Corpuscular Hgb 29.7 pg (27.0-32.0); Mean Corpuscular Volume 88.4 fL (80-94); Mean Platelet Vol. 10.4 fl (6.2-12.0); Monocyte# 0.81 X10^3/uL; Monocyte% 6.2 % (0-10); NRBC Flagged by Analyzer 0 % (0-5); Neutrophil % 86.5 % (47-70); Platelet Count 251 K/mm3 (150-450); RBC Distribution Width CV 12.3 % (11.6-14.6); Red Blood Count 5.79 M/mm3 (4.6-6.2); White Blood Count 13.2 K/mm3 (4.4-11.0)
[2021-09-19 06:15] LABS: ALB/GLOB Ratio 0.5 RATIO (0.9-2.4); AST(SGOT) 46 U/L (15-37); Alanine Aminotransfer ALT/SGPT 48 U/L (16-61); Albumin, Serum 2.6 g/dL (3.2-5.0); Alkaline Phosphatase 80 U/L (45-117); Anion Gap 7 (5-15); BUN 31 mg/dL (7-18); BUN/Creat Ratio 31.3 RATIO (10-20); Calcium,Total 9.1 mg/dL (8.5-10.1); Chloride 103 mmol/L (98-107); Creatinine, Serum 0.99 mg/dL (0.70-1.30); EST Glomerular Filtration Rate 77 mL/min (>60); Est Glom Filt Rate - Afr Amer 94 mL/min (>60); Estimated Creatinine Clearance 63.38 ml/min; Globulin 4.9 g/dL (2.2-4.2); Glucose 126 mg/dL (74-106); Potassium 4.6 mmol/L (3.5-5.1); Protein, Total 7.5 g/dL (6.4-8.2); Sodium Level 134 mmol/L (136-145)
--- NOTE | 2021-09-19 06:43 | PCM.PN.INT ---
Assessment & Plan Assessment/Plan (1) COVID-19: PLAN: RECOMMENDATIONS: 1. Continue BiPAP with sleep and wean FiO2 for saturations greater than 90%. 2. Okay to use Airvo during the day to facilitate nutrition 3. Continue to hold Coumadin and check INR daily. 4. Continue Decadron to complete 10 days of therapy. 5. Continue diuretic therapy as tolerated by hemodynamics and renal function. 6. Defer to infectious disease, but possible baricitinib candidate 7. CODE STATUS updated to full, per discussion. IMPRESSIONS: 1. Acute hypoxemic respiratory failure secondary to COVID-19 pneumonia The patient presented to the hospital on September 17 with worsening dyspnea and hypoxemia, after having just been discharged from the hospital on September 14 with COVID-19 pneumonia. The patient is systemically anticoagulated on Coumadin at his baseline. INR was supratherapeutic. The patient was restarted on Decadron. Although remdesivir was ordered, the patient subsequently refused the medication. Patient appears to be relatively stabilizing. CRP is significantly elevated on repeat testing, so baricitinib would be a consideration. Will defer to ID since they are already consulted. Procalcitonin is not suggestive of another bacterial infection. 2. Chronic heart failure with preserved ejection fraction Continue baseline diuretic regimen. BNP is not suggestive of significant strain. Continue on baseline diuretic therapy. 3. Coagulopathy The patient is systemically anticoagulated on Coumadin as an outpatient. His INR on September 16 was noted to be 5.0. Recommend rechecking coagulation profile this morning. Likely transition to therapeutic Lovenox once INR less than 2 4. Obesity/history of CVA/coronary artery disease/hypertension/hyperlipidemia/paroxysmal atrial fibrillation/diabetes mellitus Complicates care, management, recovery and prognosis. Continue to hold Coumadin. Continue sliding scale insulin coverage. Subjective Subjective Patient did okay overnight. Patient is requiring BiPAP for high FiO2 on Airvo to maintain saturations. Patient subjectively feels unchanged compared to yesterday. Patient reportedly has been tolerating p.o. well on Airvo. Patient is not reporting any abdominal pain or diarrhea. No epistaxis has been reported. Objective Data Objective Data Vital Signs: Vital Signs Temp Pulse Resp BP Pulse Ox 36.6 C 59 L 25 H 128/80 H 94 09/19/21 04:00 09/19/21 06:00 09/19/21 06:00 09/19/21 06:00 09/19/21 06:00 Oxygen Flow Rate (L/min) 60 Oxygen Delivery Method Bi-pap Weight: 121.1 kg Body Mass Index (BMI) 36.6 Intake & Output: Intake and Output for Last 24 Hours 09/17/21 09/18/21 09/19/21 23:59 23:59 23:59 Intake Total 0 / 0 Output Total 350 / 350 2150 / 2150 450 / 450 Balance -350 / -350 -2150 / -2150 -450 / -450 Lab / Micro Data Result Diagrams: 09/19/21 05:45 09/19/21 05:45 Labs: Laboratory Results - last 24 hr 09/17/21 21:36: POC Glucose 196 H 09/18/21 05:36: POC Glucose 136 H 09/18/21 06:05: Sodium 134 L, Potassium 4.4, Chloride 103, Carbon Dioxide 23.0, Anion Gap 8, BUN 28 H, Creatinine 1.00, Estim Creat Clear Calc 62.75, Est GFR (MDRD) Af Amer 92, Est GFR (MDRD) Non-Af 76, BUN/Creatinine Ratio 28.0 H, Glucose 130 H, Calcium 8.8, Total Bilirubin 0.70, AST 52 H, ALT 45, Alkaline Phosphatase 78, Total Protein 7.2, Albumin 2.5 L, Globulin 4.7 H, Albumin/Globulin Ratio 0.5 L 09/18/21 06:05: Procalcitonin 0.09 09/18/21 06:05: B-Natriuretic Peptide 42.9 09/18/21 06:05: WBC 12.7 H, RBC 5.54, Hgb 16.8 H, Hct 48.6, MCV 87.7, MCH 30.3, MCHC 34.6, RDW Std Deviation 40.0, RDW Coeff of Arnol 12.4, Plt Count 213, MPV 10.8, Immature Gran % (Auto) 1.300 H, Neut % (Auto) 87.3 H, Lymph % (Auto) 4.6 L, [place] % (Auto) 6.6, Eos % (Auto) 0.0, Baso % (Auto) 0.2, Absolute Neuts (auto) 11.1 H, Absolute Lymphs (auto) 0.58 L, Nucleated RBC % 0 09/18/21 06:07: C-React Prot Ext Range 111.00 H 09/18/21 06:07: B-Natriuretic Peptide Cancelled 09/18/21 11:23: POC Glucose 211 H 09/18/21 15:42: POC Glucose 172 H 09/18/21 22:37: POC Glucose 161 H 09/19/21 05:45: WBC 13.2 H, RBC 5.79, Hgb 17.2 H, Hct 51.2, MCV 88.4, MCH 29.7, MCHC 33.6, RDW Std Deviation 40.0, RDW Coeff of Arnol 12.3, Plt Count 251, MPV 10.4, Immature Gran % (Auto) 1.500 H, Neut % (Auto) 86.5 H, Lymph % (Auto) 5.2 L, [place] % (Auto) 6.2, Eos % (Auto) 0.1, Baso % (Auto) 0.5, Absolute Neuts (auto) 11.4 H, Absolute Lymphs (auto) 0.69 L, Nucleated RBC % 0 09/19/21 05:45: Sodium 134 L, Potassium 4.6, Chloride 103, Carbon Dioxide 24.0, Anion Gap 7, BUN 31 H, Creatinine 0.99, Estim Creat Clear Calc 63.38, Est GFR (MDRD) Af Amer 94, Est GFR (MDRD) Non-Af 77, BUN/Creatinine Ratio 31.3 H, Glucose 126 H, Calcium 9.1, Total Bilirubin 0.80, AST 46 H, ALT 48, Alkaline Phosphatase 80, Total Protein 7.5, Albumin 2.6 L, Globulin 4.9 H, Albumin/Globulin Ratio 0.5 L Micro: Microbiology 09/17/21 20:50 Urine, Random Streptococcus pneumoniae Antigen (M - Final Physical Exam Const alert Constitutional Narrative: On BiPAP during my evaluation General Appearance: cooperative and ill appearing Nutritional Appearance: obese HEENT normocephalic, head/scalp atraumatic and moist oral mucous membranes General Ear: hearing grossly impaired Eyes PERRL, EOMs intact bilaterally and conjunctivae normal Neck supple General: trachea midline Chest inspection of chest normal Chest: symmetrical chest wall rise; Negative for crepitus Resp Effort and Inspection: labored Auscultation: diminished lung sounds; Negative for rales, rhonchi or wheezes Cardio regular rate and regular rhythm GI normal to inspection, nondistended, normoactive bowel sounds Extremity no clubbing, cyanosis or edema Skin no rashes or lesions noted Neuro CN's II-XII intact bilaterally, moves all extremities and no focal motor deficits Psych cooperative and affect normal Charges/Coding Visit Charges Inpatient E&M: 78242 Subs Hosp L3
[2021-09-19 08:11] LABS: Bedside Glucose 117 mg/dL (70-110)
[2021-09-19 08:36] LABS: International Normalized Ratio 3.7; Prothrombin Time (Protime)PT. 35.6 SECONDS (11.7-14.9)
[2021-09-19] MEDS: Spironolactone 25 MG Tablet 50 MG PO (09:24)
[2021-09-19] MEDS: dexAMETHasone 4 MG Tablet 6 MG PO (09:25)
[2021-09-19] MEDS: Magnesium Chloride 64 MG Delay Rel.Tablet 128 MG PO ×2 (09:25→20:20)
[2021-09-19] MEDS: Tamsulosin HCl 0.4 MG Capsule PO (09:26)
[2021-09-19] MEDS: Multivitamins,Therapeutic Tablet 1 TABLET PO (09:26)
[2021-09-19] MEDS: Bumetanide 2 MG Tablet 1 MG PO (09:26)
[2021-09-19] MEDS: Silver Sulfadiazine 1% Crm 50 gm Bottle 50 APPLIC TOPICAL ×2 (11:59→20:21)
[2021-09-19 12:01] LABS: Bedside Glucose 142 mg/dL (70-110)
--- NOTE | 2021-09-19 12:22 | CON.PCM.ID_ITS ---
Assessment & Plan Assessment/Plan (1) Acute respiratory failure with hypoxia: (2) COVID-19: PLAN: Sx since 09/09. Vaccine x2, overdue for booster. Given dex but not remdesivir last admit. Refuses remdesivir here. On airvo, dex, INR is 5 currently. Reviewed risks and benefits and EUA, we agree to start baricitinib. Isolate until 09/29/21, recommend booster in one month. Will follow, thank you HPI Consult Data Date of Consult: 09/19/21 HPI Narrative HPI Narrative: HARRISON ESTRADA, is a 81 M who presented 09/17 after admission 09/11-09/14. Covid sx started 09/09, had fatigue, dry cough, weakness, fall at home. Developed hypoxia, given dex, not started on remdesivir, discharged home. Came back with worsening symptoms, now progressive hypoxia, started on airvo. Pt has vaccine x2 but way overdue for booster. Denies sputum, no n/v/d, no fever or chills. [facility] Medical History Atherosclerosis of coronary artery of [place] heart without angina pectoris Chronic diastolic (congestive) heart failure Chronic renal insufficiency Deafness in left ear Dyspnea Essential (primary) hypertension History of CVA (cerebrovascular accident) (2010) Hyperlipidemia Hyperlipidemia Left leg cellulitis Non-rheumatic aortic stenosis Non-ST elevation (NSTEMI) myocardial infarction (10/18/18) Obesity Obstructive sleep apnea Paroxysmal atrial fibrillation Postoperative atrial fibrillation Type 2 diabetes mellitus Ulcer of left lower extremity with fat layer exposed Venous insufficiency of both lower extremities Venous insufficiency of left leg Wears hearing aid in both ears Home Medications multivitamin with minerals 1 tab PO DAILY 10/18/18 [History Last Taken 10/18/18 08:00] metformin 500 mg tablet 500 mg PO DAILY tab 11/08/18 [History Last Taken Unknown] simvastatin 40 mg tablet 40 mg PO QHS 11/08/18 [History Last Taken 01/14/19 22:00] metoprolol tartrate 50 mg PO BID #0 tab 09/14/21 [Rx Last Taken 01/15/19] pseudoephedrine-guaifenesin [Mucinex D] 2 tab PO BID #14 tab 09/14/21 [Rx Last Taken Unknown] bumetanide 1 mg PO DAILY 09/18/21 [History Last Taken Unknown] dexamethasone 6 mg PO DAILY 09/18/21 [History Last Taken Unknown] magnesium oxide 400 mg PO BID 09/18/21 [History Last Taken Unknown] silver sulfadiazine 1 applic TOPICAL DAILY 09/18/21 [History Last Taken Unknown] spironolactone 50 mg PO DAILY 09/18/21 [History Last Taken Unknown] tamsulosin 0.4 mg PO DAILY@1730 09/18/21 [History Last Taken Unknown] warfarin 5 mg PO DAILY 09/18/21 [History Last Taken Unknown] Allergy/AdvReac Type Severity Reaction Status Date / Time No Known Allergies Allergy Verified 03/15/21 09:54 Surgical History H/O aortic valve replacement (10/29/18) 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 Jessy Hemphill DO) Smoking Status: Never smoker alcohol intake: never substance use type: does not use Physical Exam Const alert and oriented x3 General Appearance: cooperative Exam Limitations: no limitations HEENT normocephalic and head/scalp atraumatic Eyes PERRL and EOMs intact bilaterally Neck supple and No nodes Resp Auscultation: diminished lung sounds Cardio regular rate and regular rhythm GI soft to palpation, non-tender and non-distended Extremity no clubbing, cyanosis or edema Skin no rashes or lesions noted Neuro CN's II-XII intact bilaterally Lab / Micro Data Result Diagrams: 09/19/21 05:45 09/19/21 05:45 Labs: Laboratory Results - last 24 hr 09/17/21 14:00: Lactic Acid Cancelled 09/17/21 21:36: POC Glucose 196 H 09/18/21 15:42: POC Glucose 172 H 09/18/21 22:37: POC Glucose 161 H 09/19/21 05:45: WBC 13.2 H, RBC 5.79, Hgb 17.2 H, Hct 51.2, MCV 88.4, MCH 29.7, MCHC 33.6, RDW Std Deviation 40.0, RDW Coeff of Arnol 12.3, Plt Count 251, MPV 10.4, Immature Gran % (Auto) 1.500 H, Neut % (Auto) 86.5 H, Lymph % (Auto) 5.2 L , [place] % (Auto) 6.2, Eos % (Auto) 0.1, Baso % (Auto) 0.5, Absolute Neuts (auto) 11.4 H, Absolute Lymphs (auto) 0.69 L, Nucleated RBC % 0 09/19/21 05:45: Sodium 134 L, Potassium 4.6, Chloride 103, Carbon Dioxide 24.0, Anion Gap 7, BUN 31 H, Creatinine 0.99, Estim Creat Clear Calc 63.38, Est GFR (MDRD) Af Amer 94, Est GFR (MDRD) Non-Af 77, BUN/Creatinine Ratio 31.3 H, Glucose 126 H, Calcium 9.1, Total Bilirubin 0.80, AST 46 H, ALT 48, Alkaline Phosphatase 80, Total Protein 7.5, Albumin 2.6 L, Globulin 4.9 H, Albumin/Globulin Ratio 0.5 L 09/19/21 07:40: PT 35.6 H, INR 3.7 09/19/21 07:58: POC Glucose 117 H 09/19/21 11:52: POC Glucose 142 H
--- NOTE | 2021-09-19 12:41 | PCM.PN.HOSP ---
Subjective Subjective breathing better. Tolerating AirVo. Objective Data Objective Data Vital Signs: Vital Signs Temp Pulse Resp BP Pulse Ox 35.8 C L 73 23 H 131/84 H 95 09/19/21 11:00 09/19/21 12:00 09/19/21 12:00 09/19/21 12:00 09/19/21 12:00 Oxygen Flow Rate (L/min) 60 Oxygen Delivery Method Airvo Weight: 121.1 kg Body Mass Index (BMI) 36.6 Intake & Output: Intake and Output for Last 24 Hours 09/17/21 09/18/21 09/19/21 23:59 23:59 23:59 Intake Total 0 / 0 Output Total 350 / 350 2150 / 2150 750 / 750 Balance -350 / -350 -2150 / -2150 -750 / -750 Lab / Micro Data Result Diagrams: 09/19/21 05:45 09/19/21 05:45 Labs: Laboratory Results - last 24 hr 09/17/21 14:00: Lactic Acid Cancelled 09/17/21 21:36: POC Glucose 196 H 09/18/21 15:42: POC Glucose 172 H 09/18/21 22:37: POC Glucose 161 H 09/19/21 05:45: WBC 13.2 H, RBC 5.79, Hgb 17.2 H, Hct 51.2, MCV 88.4, MCH 29.7, MCHC 33.6, RDW Std Deviation 40.0, RDW Coeff of Arnol 12.3, Plt Count 251, MPV 10.4, Immature Gran % (Auto) 1.500 H, Neut % (Auto) 86.5 H, Lymph % (Auto) 5.2 L, [place] % (Auto) 6.2, Eos % (Auto) 0.1, Baso % (Auto) 0.5, Absolute Neuts (auto) 11.4 H, Absolute Lymphs (auto) 0.69 L, Nucleated RBC % 0 09/19/21 05:45: Sodium 134 L, Potassium 4.6, Chloride 103, Carbon Dioxide 24.0, Anion Gap 7, BUN 31 H, Creatinine 0.99, Estim Creat Clear Calc 63.38, Est GFR (MDRD) Af Amer 94, Est GFR (MDRD) Non-Af 77, BUN/Creatinine Ratio 31.3 H, Glucose 126 H, Calcium 9.1, Total Bilirubin 0.80, AST 46 H, ALT 48, Alkaline Phosphatase 80, Total Protein 7.5, Albumin 2.6 L, Globulin 4.9 H, Albumin/Globulin Ratio 0.5 L 09/19/21 07:40: PT 35.6 H, INR 3.7 09/19/21 07:58: POC Glucose 117 H 09/19/21 11:52: POC Glucose 142 H Micro: Microbiology 09/17/21 20:50 Urine, Random Streptococcus pneumoniae Antigen (M - Final Physical Exam Const alert and no apparent distress Resp normal respiratory effort, no retractions, no use of accessory muscles and clear to auscultation bilaterally Cardio regular rate, regular rhythm, S1 normal heart sound and S2 normal heart sound GI normal to inspection, nondistended, normoactive bowel sounds, soft to palpation, non-tender and non-distended Extremity normal to inspection Skin no rashes or lesions noted and no wounds Neuro Sensorium / Orientation: awake and alert Assessment & Plan Assessment/Plan (1) Acute respiratory failure with hypoxia: (2) COVID-19: PLAN: 1. acute hypoxic respiratory failure 2/2 COVID 19 improving continue to wean oxygen 2. COVID 19 pneumonia vaccinated. not boosted on dexamethasone,declined remdesivir seen by ID, will initiate baricitinib 3. HFrEF stable, chronic Bumex and spironolactone 4. pAfib warfarin on hold given supratherpuetic INR 5. VTE prophylaxis: anticoagulated. Charges/Coding Visit Charges Inpatient E&M: 89097 Subs Hosp L2
[2021-09-19] MEDS: Ipratropium/Albuterol Sulfate 3 ML AMPUL.NEB INHALATION ×2 (15:31→19:44)
[2021-09-19] MEDS: Acetaminophen 325 MG Tablet 650 MG PO (15:34)
[2021-09-19] MEDS: Insulin Lispro 100 UNIT/ML INSULN.PEN SC ×2 (16:38→20:21)
[2021-09-19 16:45] LABS: Bedside Glucose 159 mg/dL (70-110)
[2021-09-19] MEDS: Metoprolol Tartrate 50 MG Tablet PO (20:20)
[2021-09-19] MEDS: Atorvastatin Calcium 20 MG Tablet PO (20:20)
[2021-09-19 20:41] LABS: Bedside Glucose 213 mg/dL (70-110)
[2021-09-20] VITALS (39 sets, daily range): BP systolic 98–146; BP diastolic 53–98; PULSE 55–74; RESP 8–36; TEMP 35.7–36.6; O2SAT 84–100
[2021-09-20] MEDS: LORazepam 2 MG/ML Syringe IV (03:04)
[2021-09-20 04:10] LABS: ALB/GLOB Ratio 0.6 RATIO (0.9-2.4); AST(SGOT) 40 U/L (15-37); Alanine Aminotransfer ALT/SGPT 47 U/L (16-61); Albumin, Serum 2.5 g/dL (3.2-5.0); Alkaline Phosphatase 81 U/L (45-117); Anion Gap 6 (5-15); BUN 34 mg/dL (7-18); BUN/Creat Ratio 33.3 RATIO (10-20); Calcium,Total 8.8 mg/dL (8.5-10.1); Chloride 103 mmol/L (98-107); Creatinine, Serum 1.02 mg/dL (0.70-1.30); EST Glomerular Filtration Rate 75 mL/min (>60); Est Glom Filt Rate - Afr Amer 90 mL/min (>60); Estimated Creatinine Clearance 61.52 ml/min; Globulin 4.5 g/dL (2.2-4.2); Glucose 124 mg/dL (74-106); Potassium 4.5 mmol/L (3.5-5.1); Sodium Level 134 mmol/L (136-145)
[2021-09-20 04:41] LABS: Absolute Lymphocyte Count 0.72 X10^3/uL (0.83-4.51); Basophil# 0.05 X10^3/uL; Basophil% 0.4 % (0-1); Eosinophil# 0.03 X10^3/uL; Eosinophils% 0.3 % (0-5); Hematocrit 49.5 % (40-54); Hemoglobin 17.1 g/dL (13.0-16.5); Lymphocyte # 0.72 X10^3/ul (0.83-4.51); Lymphocyte % 6.1 % (19-41); Mean Corp Hgb Conc 34.5 g/dL (32-36); Mean Corpuscular Hgb 30.4 pg (27.0-32.0); Mean Corpuscular Volume 88.1 fL (80-94); Mean Platelet Vol. 9.7 fl (6.2-12.0); Monocyte# 0.73 X10^3/uL; Monocyte% 6.2 % (0-10); NRBC Flagged by Analyzer 0 % (0-5); Neutrophil # 9.98 X10^3/uL (2.7-7.7); Platelet Count 279 K/mm3 (150-450); RBC Distribution Width CV 12.1 % (11.6-14.6); RBC Distribution Width SD 39.1 fl (35.1-43.9); Red Blood Count 5.62 M/mm3 (4.6-6.2); White Blood Count 11.8 K/mm3 (4.4-11.0)
[2021-09-20 04:51] LABS: Base Excess 1 mmol/L (-2 to +2); Bicarbonate 24.8 mmol/L (22-26); Blood Gas Specimen Type ART; FI02 65; O2 Delivery Device BiPAP; PEEP 10; PO2 120 mmHG (75-100); PS 4; RR 12; SITE L Radial; SO2 99 % (95-99); Total Carbon Dioxide 26 mmol/L; pCO2 36.2 mmHg (35-45); pH 7.44 (7.35-7.45)
[2021-09-20 04:52] LABS: International Normalized Ratio 3.5; Prothrombin Time (Protime)PT. 34.1 SECONDS (11.7-14.9)
[2021-09-20] MEDS: TITRATION PARAMETER CHANGE 1 EACH IV (05:43)
[2021-09-20 06:36] LABS: Magnesium 2.4 mg/dL (1.6-2.6); Phosphorus 3.1 mg/dL (2.5-4.9)
--- NOTE | 2021-09-20 06:50 | PN.CC_ITS ---
Assessment & Plan Assessment/Plan (1) COVID-19: PLAN: RECOMMENDATIONS: 1. Encourage BiPAP with sleep and wean FiO2 for saturations greater than 90%. 2. Okay to use Airvo during the day to facilitate nutrition 3. Continue to hold Coumadin and check INR daily. 4. Continue Decadron to complete 10 days of therapy. 5. Continue diuretic therapy as tolerated by hemodynamics and renal function. 6. Avoid benzodiazepines if possible 7. Add on electrolytes given arrhythmia IMPRESSIONS: 1. Acute hypoxemic respiratory failure secondary to COVID-19 pneumonia The patient presented to the hospital on September 17 with worsening dyspnea and hypoxemia, after having just been discharged from the hospital on September 14 with COVID-19 pneumonia. The patient is systemically anticoagulated on Coumadin at his baseline. INR remains therapeutic. The patient was restarted on Decadron. Patient was initiated on baricitinib. Appropriate surveillance for toxicity has been ordered.. Procalcitonin is not suggestive of another bacteri al infection. 2. Chronic heart failure with preserved ejection fraction/arrhythmia Continue baseline diuretic regimen. BNP is not suggestive of significant strain. Continue on baseline diuretic therapy. Patient with longer QT interval on telemetry and switched access. Will check mag and phosphorus. 3. Coagulopathy The patient is systemically anticoagulated on Coumadin as an outpatient. His INR on September 16 was noted to be 5.0. Recommend rechecking coagulation profile this morning. Likely transition to therapeutic Lovenox once INR less than 2 4. Obesity/history of CVA/coronary artery disease/hypertension/hy perlipidemia/paroxysmal atrial fibrillation/diabetes mellitus Complicates care, management, recovery and prognosis. Continue to hold Coumadin. Continue sliding scale insulin coverage. Subjective Subjective Patient with difficulties overnight. Patient had mated to nasal cannula oxygen later in the evening and was placed on BiPAP secondary to hypoxia with sleep. Patient with poor tolerance overnight and was given Ativan. Patient became somnolent enough that an ABG was obtained, but this was relatively normal. BiPAP has been discontinued, but patient remains more difficult to arouse this morning. No epistaxis is been reported. Patient has had a prolonged QT and did have a 10 beat run of a flipped axis this morning on telemetry. Objective Data Objective Data Vital Signs: Vital Signs Temp Pulse Resp BP Pulse Ox 36.6 C 55 L 20 H 98/53 L 90 09/20/21 00:00 09/20/21 06:00 09/20/21 06:00 09/20/21 06:00 09/20/21 06:00 Oxygen Flow Rate (L/min) 13 Oxygen Delivery Method High Flow Weight: 119.1 kg Body Mass Index (BMI) 36.6 Intake & Output: Intake and Output for Last 24 Hours 09/18/21 09/19/21 09/20/21 23:59 23:59 23:59 Intake Total 700 / 700 0 / 0 Output Total 2150 / 2150 1725 / 1725 125 / 125 Balance -2150 / -2150 -1025 / -1025 -125 / -125 Lab / Micro Data Result Diagrams: 09/20/21 04:30 09/20/21 03:30 Labs: Laboratory Results - last 24 hr 09/17/21 14:00: Lactic Acid Cancelled 09/19/21 07:40: PT 35.6 H, INR 3.7 09/19/21 07:58: POC Glucose 117 H 09/19/21 11:52: POC Glucose 142 H 09/19/21 16:37: POC Glucose 159 H 09/19/21 20:17: POC Glucose 213 H 09/20/21 03:30: Sodium 134 L, Potassium 4.5, Chloride 103, Carbon Dioxide 25.0, Anion Gap 6, BUN 34 H, Creatinine 1.02, Estim Creat Clear Calc 61.52, Est GFR (MDRD) Af Amer 90, Est GFR (MDRD) Non-Af 75, BUN/Creatinine Ratio 33.3 H, Glucose 124 H, Calcium 8.8, Total Bilirubin 0.90, AST 40 H, ALT 47, Alkaline Phosphatase 81, Total Protein 7.0, Albumin 2.5 L, Globulin 4.5 H, Albumin/Globu yamila Ratio 0.6 L 09/20/21 03:30: Phosphorus 3.1, Magnesium 2.4 09/20/21 04:30: WBC 11.8 H, RBC 5.62, Hgb 17.1 H, Hct 49.5, MCV 88.1, MCH 30.4, MCHC 34.5, RDW Std Deviation 39.1, RDW Coeff of Arnol 12.1, Plt Count 279, MPV 9.7, Immature Gran % (Auto) 2.000 H, Neut % (Auto) 85.0 H, Lymph % (Auto) 6.1 L, [place] % (Auto) 6.2, Eos % (Auto) 0.3, Baso % (Auto) 0.4, Absolute Neuts (auto) 10.0 H, Absolute Lymphs (auto) 0.72 L, Nucleated RBC % 0 09/20/21 04:30: PT 34.1 H, INR 3.5 Micro: Microbiology 09/17/21 20:50 Urine, Random Streptococcus pneumoniae Antigen (M - Final ABG Data ABG results: ABG 09/20/21 04:43 Specimen Type ART Sample Site L Radial pH 7.44 Bicarbonate Actual 24.8 Total CO2 26 Base Excess 1 O2 Saturation 99 O2 % 65 ABG pCO2 36.2 ABG pO2 120 H Doc Test N/A Respiration Rate 12 O2 Delivery Device BiPAP POC PEEP 10 POC Pressure Suppt 4 Physical Exam Const alert Constitutional Narrative: On nasal cannula during my evaluation in the left lateral decubitus position General Appearance: cooperative and ill appearing Nutritional Appearance: obese HEENT normocephalic, head/scalp atraumatic and moist oral mucous membranes General Ear: hearing grossly impaired Eyes PERRL, EOMs intact bilaterally and conjunctivae normal Neck supple General: trachea midline Chest inspection of chest normal Chest: symmetrical chest wall rise; Negative for crepitus Resp Effort and Inspection: labored Auscultation: diminished lung sounds; Negative for rales, rhonchi or wheezes Cardio regular rate and regular rhythm GI normal to inspection, nondistended, normoactive bowel sounds Extremity no clubbing, cyanosis or edema Skin no rashes or lesions noted Neuro CN's II-XII intact bilaterally, moves all extremities and no focal motor deficits Psych cooperative and affect normal Charges/Coding Visit Charges Inpatient E&M: 15294 Subs Hosp L3
[2021-09-20] MEDS: Ipratropium/Albuterol Sulfate 3 ML AMPUL.NEB INHALATION ×4 (06:59→20:05)
[2021-09-20] MEDS: Spironolactone 25 MG Tablet 50 MG PO (08:29)
[2021-09-20] MEDS: Bumetanide 2 MG Tablet 1 MG PO (08:41)
[2021-09-20] MEDS: dexAMETHasone 4 MG Tablet 6 MG PO (08:41)
[2021-09-20] MEDS: Multivitamins,Therapeutic Tablet 1 TABLET PO (08:41)
[2021-09-20] MEDS: Magnesium Chloride 64 MG Delay Rel.Tablet 128 MG PO ×2 (08:41→22:16)
[2021-09-20] MEDS: Tamsulosin HCl 0.4 MG Capsule PO (08:42)
[2021-09-20] MEDS: Metoprolol Tartrate 50 MG Tablet PO ×2 (08:42→22:15)
[2021-09-20] MEDS: Silver Sulfadiazine 1% Crm 50 gm Bottle 50 APPLIC TOPICAL (08:42)
[2021-09-20 09:01] LABS: Bedside Glucose 116 mg/dL (70-110)
[2021-09-20] MEDS: Insulin Lispro 100 UNIT/ML INSULN.PEN SC ×3 (11:11→22:17)
[2021-09-20 11:20] LABS: Bedside Glucose 180 mg/dL (70-110)
--- NOTE | 2021-09-20 12:43 | PCM.PN.HOSP ---
Subjective Subjective put on BiPAP overnight. Somnolence this AM. Currently on Airvo. Objective Data Objective Data Vital Signs: Vital Signs Temp Pulse Resp BP Pulse Ox 35.9 C L 64 20 H 122/77 H 91 09/20/21 12:00 09/20/21 12:00 09/20/21 12:00 09/20/21 12:00 09/20/21 12:00 Oxygen Flow Rate (L/min) 55 Oxygen Delivery Method Airvo Weight: 119.1 kg Body Mass Index (BMI) 36.6 Intake & Output: Intake and Output for Last 24 Hours 09/18/21 09/19/21 09/20/21 23:59 23:59 23:59 Intake Total 700 / 700 480 / 480 Output Total 2150 / 2150 1725 / 1725 575 / 575 Balance -2150 / -2150 -1025 / -1025 -95 / -95 Lab / Micro Data Result Diagrams: 09/20/21 04:30 09/20/21 03:30 Labs: Laboratory Results - last 24 hr 09/19/21 16:37: POC Glucose 159 H 09/19/21 20:17: POC Glucose 213 H 09/20/21 03:30: Sodium 134 L, Potassium 4.5, Chloride 103, Carbon Dioxide 25.0, Anion Gap 6, BUN 34 H, Creatinine 1.02, Estim Creat Clear Calc 61.52, Est GFR (MDRD) Af Amer 90, Est GFR (MDRD) Non-Af 75, BUN/Creatinine Ratio 33.3 H, Glucose 124 H, Calcium 8.8, Total Bilirubin 0.90, AST 40 H, ALT 47, Alkaline Phosphatase 81, Total Protein 7.0, Albumin 2.5 L, Globulin 4.5 H, Albumin/Globulin Ratio 0.6 L 09/20/21 03:30: Phosphorus 3.1, Magnesium 2.4 09/20/21 04:30: WBC 11.8 H, RBC 5.62, Hgb 17.1 H, Hct 49.5, MCV 88.1, MCH 30.4, MCHC 34.5, RDW Std Deviation 39.1, RDW Coeff of Arnol 12.1, Plt Count 279, MPV 9.7, Immature Gran % (Auto) 2.000 H, Neut % (Auto) 85.0 H, Lymph % (Auto) 6.1 L, [place] % (Auto) 6.2, Eos % (Auto) 0.3, Baso % (Auto) 0.4, Absolute Neuts (auto) 10.0 H, Absolute Lymphs (auto) 0.72 L, Nucleated RBC % 0 09/20/21 04:30: PT 34.1 H, INR 3.5 09/20/21 08:23: POC Glucose 116 H 09/20/21 11:10: POC Glucose 180 H Micro: Microbiology 09/17/21 20:50 Urine, Random Streptococcus pneumoniae Antigen (M - Final ABG Data ABG results: ABG 09/20/21 04:43 Specimen Type ART Sample Site L Radial pH 7.44 Bicarbonate Actual 24.8 Total CO2 26 Base Excess 1 O2 Saturation 99 O2 % 65 ABG pCO2 36.2 ABG pO2 120 H Doc Test N/A Respiration Rate 12 O2 Delivery Device BiPAP POC PEEP 10 POC Pressure Suppt 4 Physical Exam Const alert and no apparent distress Resp normal respiratory effort and no retractions Resp Narrative: coarse BS bilaterally Cardio regular rate, regular rhythm, S1 normal heart sound and S2 normal heart sound GI normal to inspection, nondistended, normoactive bowel sounds, soft to palpation, non-tender and non-distended Extremity normal to inspection Assessment & Plan Assessment/Plan (1) Acute respiratory failure with hypoxia: (2) COVID-19: PLAN: 1. acute hypoxic respiratory failure 2/2 COVID 19 on Airvo continue to wean oxygen 2. COVID 19 pneumonia vaccinated. not boosted on dexamethasone,declined remdesivir seen by ID, will initiate baricitinib 3. HFrEF stable, chronic Bumex and spironolactone 4. pAfib warfarin on hold given supratherpuetic INR 5. VTE prophylaxis: anticoagulated. Charges/Coding Visit Charges Inpatient E&M: 75011 Subs Hosp L2
[2021-09-20 16:50] LABS: Bedside Glucose 167 mg/dL (70-110)
[2021-09-20] MEDS: MELATONIN 3 MG TABLET PO (22:15)
[2021-09-20] MEDS: 0.9% Saline Lock 10 ML Syringe IV (22:16)
[2021-09-20] MEDS: Atorvastatin Calcium 20 MG Tablet PO (22:16)
[2021-09-20] MEDS: Acetaminophen 325 MG Tablet 650 MG PO (22:16)
[2021-09-20] MEDS: Silver Sulfadiazine 1% Crm 50 gm Bottle 1 APPLIC TOPICAL (22:18)
[2021-09-21] VITALS (34 sets, daily range): BP systolic 95–147; BP diastolic 59–103; PULSE 45–80; RESP 12–31; TEMP 36.1–36.9; O2SAT 65–99
[2021-09-21 00:25] LABS: Bedside Glucose 172 mg/dL (70-110)
[2021-09-21 04:29] LABS: Absolute Lymphocyte Count 0.61 X10^3/uL (0.83-4.51); Absolute Neutrophil Count 10.6 X10^3/uL (2.0-7.7); Basophil# 0.04 X10^3/uL; Basophil% 0.3 % (0-1); Eosinophil# 0.05 X10^3/uL; Eosinophils% 0.4 % (0-5); Hematocrit 50.5 % (40-54); Hemoglobin 17.8 g/dL (13.0-16.5); Lymphocyte # 0.61 X10^3/ul (0.83-4.51); Mean Corp Hgb Conc 35.2 g/dL (32-36); Mean Corpuscular Hgb 30.9 pg (27.0-32.0); Mean Corpuscular Volume 87.7 fL (80-94); Mean Platelet Vol. 9.8 fl (6.2-12.0); Monocyte# 0.51 X10^3/uL; Monocyte% 4.2 % (0-10); NRBC Flagged by Analyzer 0 % (0-5); Neutrophil # 10.61 X10^3/uL (2.7-7.7); Neutrophil % 87.6 % (47-70); Platelet Count 280 K/mm3 (150-450); RBC Distribution Width CV 12.1 % (11.6-14.6); Red Blood Count 5.76 M/mm3 (4.6-6.2); White Blood Count 12.1 K/mm3 (4.4-11.0)
[2021-09-21 04:38] LABS: International Normalized Ratio 2.4; Prothrombin Time (Protime)PT. 25.4 SECONDS (11.7-14.9)
[2021-09-21 04:46] LABS: ALB/GLOB Ratio 0.5 RATIO (0.9-2.4); AST(SGOT) 51 U/L (15-37); Alanine Aminotransfer ALT/SGPT 51 U/L (16-61); Albumin, Serum 2.6 g/dL (3.2-5.0); Alkaline Phosphatase 85 U/L (45-117); Anion Gap 5 (5-15); BUN 41 mg/dL (7-18); BUN/Creat Ratio 35.7 RATIO (10-20); Calcium,Total 8.6 mg/dL (8.5-10.1); Chloride 101 mmol/L (98-107); Creatinine, Serum 1.15 mg/dL (0.70-1.30); EST Glomerular Filtration Rate 65 mL/min (>60); Est Glom Filt Rate - Afr Amer 79 mL/min (>60); Estimated Creatinine Clearance 54.57 ml/min; Globulin 4.9 g/dL (2.2-4.2); Glucose 128 mg/dL (74-106); Protein, Total 7.5 g/dL (6.4-8.2); Sodium Level 132 mmol/L (136-145)
--- NOTE | 2021-09-21 06:40 | PCM.PN.INT ---
Assessment & Plan Assessment/Plan (1) COVID-19: PLAN: RECOMMENDATIONS: 1. Encourage BiPAP with sleep and wean FiO2 for saturations greater than 90%. 2. Okay to use Airvo during the day to facilitate nutrition 3. Continue to hold Coumadin and check INR daily. Transition to Lovenox when subtherapeutic 4. Completes 10 days of Decadron today 5. Continue diuretic therapy as tolerated by hemodynamics and renal function. 6. Avoid benzodiazepines if possible IMPRESSIONS: 1. Acute hypoxemic respiratory failure secondary to COVID-19 pneumonia The patient presented to the hospital on September 17 with worsening dyspnea and hypoxemia, after having just been discharged from the hospital on September 14 with COVID-19 pneumonia. The patient is systemically anticoagulated on Coumadin at his baseline. INR remains therapeutic. The patient was restarted on Decadron and will complete his course today. Patient was initiated on baricitinib. Appropriate surveillance for toxicity has been ordered. Procalcitonin is not suggestive of another bacterial infection. Patient appears to be slowly improving. Possible transfer from the intensive care unit in the next 24 to 48 hours 2. Chronic heart failure with preserved ejection fraction/arrhythmia Continue baseline diuretic regimen. BNP is not suggestive of significant strain. Continue on baseline diuretic therapy. Patient with longer QT interval on telemetry and switched access. Will check mag and phosphorus intermittently. 3. Coagulopathy The patient is systemically anticoagulated on Coumadin as an outpatient. His INR on September 16 was noted to be 5.0. Recommend rechecking coagulation profile this morning. Likely transition to therapeutic Lovenox once INR less than 2 4. Obesity/history of CVA/coronary artery disease/hypertension/hyperlipidemia/paroxysmal atrial fibrillation/diabetes mellitus Complicates care, management, recovery and prognosis. Continue to hold Coumadin. Continue sliding scale insulin coverage. Subjective Subjective Patient did okay overnight. Patient refused BiPAP therapy and remained in the chair for most of the evening. Patient is reporting some discomfort on his bottom that he attributes to being in the chair overnight. Per nursing, patient had refused going to the bed. Patient does have a prolonged QT, but has been appropriate overnight. No as needed medications have been required. Patient does report shortness of breath with exertion, but feels relatively comfortable at rest. Objective Data Objective Data Vital Signs: Vital Signs Temp Pulse Resp BP Pulse Ox 36.6 C 56 L 27 H 119/73 94 09/21/21 04:00 09/21/21 05:00 09/21/21 05:00 09/21/21 05:00 09/21/21 05:00 Oxygen Flow Rate (L/min) 55 Oxygen Delivery Method Airvo Weight: 119.1 kg Body Mass Index (BMI) 36.6 Intake & Output: Intake and Output for Last 24 Hours 09/19/21 09/20/21 09/21/21 23:59 23:59 23:59 Intake Total 700 / 700 720 / 720 Output Total 1725 / 1725 900 / 900 500 / 500 Balance -1025 / -1025 -180 / -180 -500 / -500 Lab / Micro Data Result Diagrams: 09/21/21 04:25 09/21/21 04:25 Labs: Laboratory Results - last 24 hr 09/20/21 08:23: POC Glucose 116 H 09/20/21 11:10: POC Glucose 180 H 09/20/21 16:42: POC Glucose 167 H 09/20/21 22:13: POC Glucose 172 H 09/21/21 04:25: WBC 12.1 H, RBC 5.76, Hgb 17.8 H, Hct 50.5, MCV 87.7, MCH 30.9, MCHC 35.2, RDW Std Deviation 39.0, RDW Coeff of Arnol 12.1, Plt Count 280, MPV 9.8, Immature Gran % (Auto) 2.500 H, Neut % (Auto) 87.6 H, Lymph % (Auto) 5.0 L, [place] % (Auto) 4.2, Eos % (Auto) 0.4, Baso % (Auto) 0.3, Absolute Neuts (auto) 10.6 H, Absolute Lymphs (auto) 0.61 L, Nucleated RBC % 0 09/21/21 04:25: PT 25.4 H, INR 2.4 09/21/21 04:25: Sodium 132 L, Potassium 5.0, Chloride 101, Carbon Dioxide 26.0, Anion Gap 5, BUN 41 H, Creatinine 1.15, Estim Creat Clear Calc 54.57, Est GFR (MDRD) Af Amer 79, Est GFR (MDRD) Non-Af 65, BUN/Creatinine Ratio 35.7 H, Glucose 128 H, Calcium 8.6, Total Bilirubin 1.00, AST 51 H, ALT 51, Alkaline Phosphatase 85, Total Protein 7.5, Albumin 2.6 L, Globulin 4.9 H, Albumin/Globulin Ratio 0.5 L Micro: Microbiology 09/17/21 20:50 Urine, Random Streptococcus pneumoniae Antigen (M - Final Physical Exam Const alert Constitutional Narrative: On Airvo sitting in a chair on my evaluation General Appearance: cooperative and ill appearing Nutritional Appearance: obese HEENT normocephalic, head/scalp atraumatic and moist oral mucous membranes General Ear: hearing grossly impaired Eyes PERRL, EOMs intact bilaterally and conjunctivae normal Neck supple General: trachea midline Chest inspection of chest normal Chest: symmetrical chest wall rise; Negative for crepitus Resp Effort and Inspection: labored Auscultation: diminished lung sounds; Negative for rales, rhonchi or wheezes Cardio regular rate and regular rhythm GI normal to inspection, nondistended, normoactive bowel sounds Extremity no clubbing, cyanosis or edema Skin no rashes or lesions noted Neuro CN's II-XII intact bilaterally, moves all extremities and no focal motor deficits Psych cooperative and affect normal Charges/Coding Visit Charges Inpatient E&M: 84514 Subs Hosp L3
[2021-09-21] MEDS: Ipratropium/Albuterol Sulfate 3 ML AMPUL.NEB INHALATION ×4 (07:51→19:18)
[2021-09-21] MEDS: Bumetanide 2 MG Tablet 1 MG PO (10:45)
--- NOTE | 2021-09-21 10:45 | CASEMGMT ---
Social Work SW participated in ICU rounds. Therapy reporting pt is min to mod assist and will likely need SNF placement for rehabilitation prior to returning home. SW met with pt in room and discussed discharge planning. Pt stating he has all needed equipment at home and his and son can care for him. SW discussed concerns from therapy and presented SNF options. Pt listened to SW and review list of SNF providers including quality and resource use data and consistent with the patient's preferred geographic region, medical needs and insurance network. Pt uncertain what he should do and is agreeable that SW can speak with his regarding d/c plan. Phone call to pt Francisca and explained recommendation for SNF. Pt states she has talked to her son Héctor and they are both in agreement that pt will need short term SNF placement and he was very weak at home and falling prior to readmission. SW reviewed list of SNF providers with Francisca and will email list with quality and resource use data. Francisca to review list and talk to Héctor and call SW back with decision of SNF. RODNEY Robison
[2021-09-21] MEDS: Magnesium Chloride 64 MG Delay Rel.Tablet 128 MG PO ×2 (10:46→20:03)
[2021-09-21] MEDS: Metoprolol Tartrate 50 MG Tablet PO ×2 (10:46→20:02)
[2021-09-21] MEDS: Multivitamins,Therapeutic Tablet 1 TABLET PO (10:46)
[2021-09-21] MEDS: Spironolactone 25 MG Tablet 50 MG PO (10:46)
[2021-09-21] MEDS: dexAMETHasone 4 MG Tablet 6 MG PO (10:46)
[2021-09-21] MEDS: Tamsulosin HCl 0.4 MG Capsule PO (10:46)
[2021-09-21] MEDS: CHLORHEXIDINE GLUC 2% CLOTH 1 EACH TOWELETTE TOPICAL (10:47)
[2021-09-21] MEDS: Silver Sulfadiazine 1% Crm 50 gm Bottle 1 APPLIC TOPICAL ×2 (10:47→20:13)
[2021-09-21] MEDS: Senna/Docusate Sodium 1 Tablet 2 TABLET PO ×2 (10:49→20:02)
[2021-09-21] MEDS: Polyethylene Glycol 3350 17 GM PACKET PO (10:52)
--- NOTE | 2021-09-21 11:37 | PCM.PN.HOSP ---
Subjective Subjective Did not tolerate BIPAP. Objective Data Objective Data Vital Signs: Vital Signs Temp Pulse Resp BP Pulse Ox 36.7 C 71 20 H 144/80 H 65 09/21/21 08:00 09/21/21 11:30 09/21/21 11:30 09/21/21 10:46 09/21/21 11:30 Oxygen Flow Rate (L/min) 60 Oxygen Delivery Method Airvo Weight: 119.1 kg Body Mass Index (BMI) 36.6 Intake & Output: Intake and Output for Last 24 Hours 09/19/21 09/20/21 09/21/21 23:59 23:59 23:59 Intake Total 700 / 700 720 / 720 360 / 360 Output Total 1725 / 1725 900 / 900 700 / 700 Balance -1025 / -1025 -180 / -180 -340 / -340 Lab / Micro Data Result Diagrams: 09/21/21 04:25 09/21/21 04:25 Labs: Laboratory Results - last 24 hr 09/20/21 16:42: POC Glucose 167 H 09/20/21 22:13: POC Glucose 172 H 09/21/21 04:25: WBC 12.1 H, RBC 5.76, Hgb 17.8 H, Hct 50.5, MCV 87.7, MCH 30.9, MCHC 35.2, RDW Std Deviation 39.0, RDW Coeff of Arnol 12.1, Plt Count 280, MPV 9.8, Immature Gran % (Auto) 2.500 H, Neut % (Auto) 87.6 H, Lymph % (Auto) 5.0 L, [place] % (Auto) 4.2, Eos % (Auto) 0.4, Baso % (Auto) 0.3, Absolute Neuts (auto) 10.6 H, Absolute Lymphs (auto) 0.61 L, Nucleated RBC % 0 09/21/21 04:25: PT 25.4 H, INR 2.4 09/21/21 04:25: Sodium 132 L, Potassium 5.0, Chloride 101, Carbon Dioxide 26.0, Anion Gap 5, BUN 41 H, Creatinine 1.15, Estim Creat Clear Calc 54.57, Est GFR (MDRD) Af Amer 79, Est GFR (MDRD) Non-Af 65, BUN/Creatinine Ratio 35.7 H, Glucose 128 H, Calcium 8.6, Total Bilirubin 1.00, AST 51 H, ALT 51, Alkaline Phosphatase 85, Total Protein 7.5, Albumin 2.6 L, Globulin 4.9 H, Albumin/Globulin Ratio 0.5 L Micro: Microbiology 09/17/21 20:50 Urine, Random Streptococcus pneumoniae Antigen (M - Final Physical Exam Const Constitutional Narrative: up in chair on Airvo> listless. Resp normal respiratory effort, no retractions, no use of accessory muscles and clear to auscultation bilaterally Cardio regular rate, regular rhythm, S1 normal heart sound and S2 normal heart sound GI normal to inspection, nondistended, normoactive bowel sounds, soft to palpation, non-tender and non-distended Extremity normal to inspection Assessment & Plan Assessment/Plan (1) Acute respiratory failure with hypoxia: (2) COVID-19: PLAN: 1. acute hypoxic respiratory failure 2/2 COVID 19 on Airvo ongoing pt will to try BiPAP 2. COVID 19 pneumonia vaccinated. not boosted on dexamethasone, but declined remdesivir seen by [facility] 3. HFrEF stable, chronic Bumex and spironolactone 4. pAfib warfarin on hold given supratherpuetic INR 5. VTE prophylaxis: anticoagulated. Verified full code status, though pt reluctantly said he would want to be intubated if the alternative was . Charges/Coding Visit Charges Inpatient E&M: 93055 Subs Hosp L2
--- NOTE | 2021-09-21 13:02 | PCM.PN.ID ---
Physical Exam Narrative Feeling a little better, no fever, no sputum, no n/v/d Const alert and no apparent distress General Appearance: cooperative Resp clear to auscultation bilaterally Auscultation: diminished lung sounds Cardio regular rate and regular rhythm GI soft to palpation, non-tender and non-distended Skin no rashes or lesions noted ID ID: Route of nutrition/ use of supplements: [] Nutritional Intake: [] IV Site: [] Cedeno Catheter: [] Assessment & Plan Assessment/Plan (1) Acute respiratory failure with hypoxia: (2) COVID-19: PLAN: Sx since 09/09. Vaccine x2, overdue for booster. Given dex but not remdesivir last admit. Refuses remdesivir here. On airvo, completed dex, cont baricitinib. Isolate until 09/29/21, recommend booster in one month. INR therapeutic. Will follow
[2021-09-21 13:21] LABS: Bedside Glucose 107 mg/dL (70-110)
[2021-09-21 17:21] LABS: Bedside Glucose 143 mg/dL (70-110)
[2021-09-21] MEDS: Atorvastatin Calcium 20 MG Tablet PO (20:02)
[2021-09-21] MEDS: Insulin Lispro 100 UNIT/ML INSULN.PEN SC (20:03)
[2021-09-21 21:20] LABS: Bedside Glucose 160 mg/dL (70-110)
[2021-09-22] VITALS (36 sets, daily range): BP systolic 89–146; BP diastolic 32–96; PULSE 56–84; RESP 12–31; TEMP 36.1–36.9; O2SAT 90–100
[2021-09-22 04:42] LABS: Absolute Lymphocyte Count 0.62 X10^3/uL (0.83-4.51); Absolute Neutrophil Count 13.1 X10^3/uL (2.0-7.7); Basophil# 0.05 X10^3/uL; Basophil% 0.3 % (0-1); Eosinophil# 0.27 X10^3/uL; Eosinophils% 1.8 % (0-5); Hematocrit 49.4 % (40-54); Hemoglobin 17.8 g/dL (13.0-16.5); Lymphocyte # 0.62 X10^3/ul (0.83-4.51); Lymphocyte % 4.1 % (19-41); Mean Corpuscular Volume 86.1 fL (80-94); Mean Platelet Vol. 9.6 fl (6.2-12.0); Monocyte# 0.48 X10^3/uL; Monocyte% 3.2 % (0-10); NRBC Flagged by Analyzer 0 % (0-5); Neutrophil # 13.14 X10^3/uL (2.7-7.7); Neutrophil % 87.9 % (47-70); Platelet Count 272 K/mm3 (150-450); RBC Distribution Width CV 11.9 % (11.6-14.6); RBC Distribution Width SD 37.8 fl (35.1-43.9); Red Blood Count 5.74 M/mm3 (4.6-6.2)
[2021-09-22 04:51] LABS: International Normalized Ratio 1.9; Prothrombin Time (Protime)PT. 20.6 SECONDS (11.7-14.9)
[2021-09-22 05:01] LABS: Anion Gap 9 (5-15); BUN 38 mg/dL (7-18); BUN/Creat Ratio 36.9 RATIO (10-20); Calcium,Total 8.6 mg/dL (8.5-10.1); Chloride 101 mmol/L (98-107); Creatinine, Serum 1.03 mg/dL (0.70-1.30); EST Glomerular Filtration Rate 74 mL/min (>60); Est Glom Filt Rate - Afr Amer 89 mL/min (>60); Estimated Creatinine Clearance 60.92 ml/min; Glucose 117 mg/dL (74-106); Potassium 4.6 mmol/L (3.5-5.1); Sodium Level 133 mmol/L (136-145)
--- NOTE | 2021-09-22 07:19 | PN.CC_ITS ---
Assessment & Plan Assessment/Plan (1) COVID-19: PLAN: RECOMMENDATIONS: 1. Encourage BiPAP with sleep and wean FiO2 for saturations greater than 90%. 2. Okay to use Airvo during the day to facilitate nutrition 3. Initiate therapeutic Lovenox 4. Monitor off Decadron therapy. Continue baricitinib (10/02/2021) 5. Continue diuretic therapy as tolerated by hemodynamics and renal func tion. 6. Avoid benzodiazepines if possible IMPRESSIONS: 1. Acute hypoxemic respiratory failure secondary to COVID-19 pneumonia The patient presented to the hospital on September 17 with worsening dyspnea and hypoxemia, after having just been discharged from the hospital on September 14 with COVID-19 pneumonia. The patient is systemically anticoagulated on Coumadin at his baseline. INR remains therapeutic. The patient was restarted on Dec adron and will complete his course today. Patient was initiated on baricitinib. Appropriate surveillance for toxicity has been ordered. Patient appears to be slowly improving. Possible transfer from the intensive care unit in the next 24 to 48 hours. We will give additional Lasix this evening 2. Chronic heart failure with preserved ejection fraction/arrhythmia Continue baseline diuretic regimen. BNP is not suggestive of significant strain. Continue on baseline diuretic therapy. Patient with longer QT interval on telemetry and switched access. Will check mag and phosphorus intermittently. 3. Coagulopathy The patient is systemically anticoagulated on Coumadin as an outpatient. His INR on September 16 was noted to be 5.0. Recommend rechecking coagulation profile this morning. We will transition patient to therapeutic Lovenox 4. Obesity/history of CVA/coronary artery disease/hypertension/hyperlipidemia/paroxysmal atrial fibrillation/diabetes mellitus Complicates care, management, recovery and prognosis. Continue to hold Coumadin. Continue sliding scale insulin coverage. Subjective Subjective Patient did okay overnight. Patient has been more anxious over the last 24 hours. Patient was up and down to the chair. Nursing is reporting patient is slightly more weak compared to previous. Patient denies any cough. Patient was able to wear BiPAP this morning and appears to be tolerating at this point. Objective Data Objective Data Vital Signs: Vital Signs Temp Pulse Resp BP Pulse Ox 36.3 C L 64 26 H 141/93 H 94 09/22/21 04:00 09/22/21 06:00 09/22/21 06:00 09/22/21 06:00 09/22/21 06:00 Oxygen Flow Rate (L/min) 60 Oxygen Delivery Method Bi-pap Weight: 115.2 kg Body Mass Index (BMI) 36.6 Intake & Output: Intake and Output for Last 24 Hours 09/20/21 09/21/21 09/22/21 23:59 23:59 23:59 Intake Total 720 / 720 460 / 660 320 / 320 Output Total 900 / 900 800 / 1200 650 / 650 Balance -180 / -180 -340 / -540 -330 / -330 Lab / Micro Data Result Diagrams: 09/22/21 04:30 09/22/21 04:30 Labs: Laboratory Results - last 24 hr 09/21/21 13:07: POC Glucose 107 09/21/21 16:51: POC Glucose 143 H 09/21/21 20:01: POC Glucose 160 H 09/22/21 04:30: WBC 15.0 H, RBC 5.74, Hgb 17.8 H, Hct 49.4, MCV 86.1, MCH 31.0, MCHC 36.0, RDW Std Deviation 37.8, RDW Coeff of Arnol 11.9, Plt Count 272, MPV 9.6, Immature Gran % (Auto) 2.700 H, Neut % (Auto) 87.9 H, Lymph % (Auto) 4.1 L, [place] % (Auto) 3.2, Eos % (Auto) 1.8, Baso % (Auto) 0.3, Absolute Neuts (auto) 13.1 H, Absolute Lymphs (auto) 0.62 L, Nucleated RBC % 0 09/22/21 04:30: PT 20.6 H, INR 1.9 09/22/21 04:30: Sodium 133 L, Potassium 4.6, Chloride 101, Carbon Dioxide 23.0, Anion Gap 9, BUN 38 H, Creatinine 1.03, Estim Creat Clear Calc 60.92, Est GFR (MDRD) Af Amer 89, Est GFR (MDRD) Non-Af 74, BUN/Creatinine Ratio 36.9 H, Glucose 117 H, Calcium 8.6 Micro: Microbiology 09/17/21 20:50 Urine, Random Streptococcus pneumoniae Antigen (M - Final Physical Exam Const alert Constitutional Narrative: On BiPAP in the bed on my evaluation General Appearance: cooperative and ill appearing Nutritional Appearance: obese HEENT normocephalic, head/scalp atraumatic and moist oral mucous membranes General Ear: hearing grossly impaired diffuse Eyes PERRL, EOMs intact bilaterally and conjunctivae normal Neck supple General: trachea midline Chest inspection of chest normal Chest: symmetrical chest wall rise; Negative for crepitus Resp Effort and Inspection: labored Auscultation: diminished lung sounds; Negative for rales, rhonchi or wheezes Cardio regular rate and regular rhythm GI normal to inspection, nondistended, normoactive bowel sounds Extremity no clubbing, cyanosis or edema Skin no rashes or lesions noted Neuro CN's II-XII intact bilaterally, moves all extremities and no focal motor deficits Psych cooperative and affect normal Charges/Coding Visit Charges Inpatient E&M: 68769 Subs Hosp L3
[2021-09-22] MEDS: Ipratropium/Albuterol Sulfate 3 ML AMPUL.NEB INHALATION ×3 (07:39→19:28)
[2021-09-22] MEDS: Metoprolol Tartrate 50 MG Tablet PO ×2 (09:22→20:59)
[2021-09-22] MEDS: Spironolactone 25 MG Tablet 50 MG PO (09:22)
[2021-09-22] MEDS: CHLORHEXIDINE GLUC 2% CLOTH 1 EACH TOWELETTE TOPICAL (09:22)
[2021-09-22] MEDS: Tamsulosin HCl 0.4 MG Capsule PO (09:22)
[2021-09-22] MEDS: Bumetanide 2 MG Tablet 1 MG PO (09:22)
[2021-09-22] MEDS: Magnesium Chloride 64 MG Delay Rel.Tablet 128 MG PO ×2 (09:23→21:01)
[2021-09-22] MEDS: Multivitamins,Therapeutic Tablet 1 TABLET PO (09:23)
[2021-09-22] MEDS: Senna/Docusate Sodium 1 Tablet 2 TABLET PO ×2 (09:23→21:01)
[2021-09-22] MEDS: Silver Sulfadiazine 1% Crm 50 gm Bottle 1 APPLIC TOPICAL ×2 (09:24→21:01)
--- NOTE | 2021-09-22 10:23 | PCM.PN.HOSP ---
Subjective Subjective Still on Airvo. Cannot lie flat Objective Data Objective Data Vital Signs: Vital Signs Temp Pulse Resp BP Pulse Ox 36.3 C L 84 25 H 141/93 H 92 09/22/21 04:00 09/22/21 09:22 09/22/21 07:41 09/22/21 06:00 09/22/21 07:41 Oxygen Flow Rate (L/min) 60 Oxygen Delivery Method Bi-pap Weight: 115.2 kg Body Mass Index (BMI) 36.6 Intake & Output: Intake and Output for Last 24 Hours 09/20/21 09/21/21 09/22/21 23:59 23:59 23:59 Intake Total 720 / 720 460 / 660 320 / 320 Output Total 900 / 900 800 / 1200 650 / 650 Balance -180 / -180 -340 / -540 -330 / -330 Medical Nutrition Assessment Dietitian: Malnutrition Criteria Met Start: 09/22/21 09:27 Freq: Status: Active Protocol: Document 09/22/21 09:28 (Rec: 09/22/21 09:28 [id number]) Nutrition Malnutrition Evidence of Malnutrition Exists Yes Malnutrition (severe): Acute Illness/Injury Evidenced By Suboptimal Energy Intake ( Severe),Weight Loss (Severe) Intake Problem Inadequate Oral Intake Etiology r/t resp. failure, decreased appetite Signs/Symptoms as evidenced by estimated PO intake meeting <50% of estimated energy needs Status Active Problem Clinical Problem Acute Disease or Injury Related Malnutrition Etiology severe, acute malnutrition r/t inadequate energy intake d/t acute illness Signs/Symptoms as evidenced by unintentional wt loss of 2.7kg/2.3% from usual body wt; 9kg/7.3% wt loss x 8 days per EMR; estimated PO intake meeting < 50% of estimated energy needs >5 days Status Active Problem Recommendation Dietitian Recommendations/Changes will continue liberalized diet to d/t poor PO intake and acute malnutrition; continue glucerna w/ meals. Will try magic cup w/ dinner for additional calories/protein if consumed. Lab / Micro Data Result Diagrams: 09/22/21 04:30 09/22/21 04:30 Labs: Laboratory Results - last 24 hr 09/21/21 13:07: POC Glucose 107 09/21/21 16:51: POC Glucose 143 H 09/21/21 20:01: POC Glucose 160 H 09/22/21 04:30: WBC 15.0 H, RBC 5.74, Hgb 17.8 H, Hct 49.4, MCV 86.1, MCH 31.0, MCHC 36.0, RDW Std Deviation 37.8, RDW Coeff of Arnol 11.9, Plt Count 272, MPV 9.6, Immature Gran % (Auto) 2.700 H, Neut % (Auto) 87.9 H, Lymph % (Auto) 4.1 L, [place] % (Auto) 3.2, Eos % (Auto) 1.8, Baso % (Auto) 0.3, Absolute Neuts (auto) 13.1 H, Absolute Lymphs (auto) 0.62 L, Nucleated RBC % 0 09/22/21 04:30: PT 20.6 H, INR 1.9 09/22/21 04:30: Sodium 133 L, Potassium 4.6, Chloride 101, Carbon Dioxide 23.0, Anion Gap 9, BUN 38 H, Creatinine 1.03, Estim Creat Clear Calc 60.92, Est GFR (MDRD) Af Amer 89, Est GFR (MDRD) Non-Af 74, BUN/Creatinine Ratio 36.9 H, Glucose 117 H, Calcium 8.6 Micro: Microbiology 09/17/21 20:50 Urine, Random Streptococcus pneumoniae Antigen (M - Final Physical Exam Const alert Constitutional Narrative: up in chair. gown off, sheet over shoulders. anxious. afebrile. Resp normal respiratory effort, no retractions, no use of accessory muscles and clear to auscultation bilaterally Cardio regular rate, regular rhythm, S1 normal heart sound and S2 normal heart sound GI normal to inspection, nondistended, normoactive bowel sounds, soft to palpation, non-tender and non-distended Extremity normal to inspection Assessment & Plan Assessment/Plan (1) Acute respiratory failure with hypoxia: (2) COVID-19: PLAN: 1. acute hypoxic respiratory failure 2/2 COVID 19 on Airvo ongoing furosemide challenge today 2. COVID 19 pneumonia vaccinated. not boosted completed dexamethasone, but declined remdesivir seen by ok DAUGHERTY 3. HFrEF stable, chronic Bumex and spironolactone 4. pAfib therapeutic enoxaparin. consider resumption warfarin 5. VTE prophylaxis: anticoagulated. Verified full code status, though pt reluctantly said he would want to be intubated if the alternative was . Charges/Coding Visit Charges Inpatient E&M: 38107 Subs Hosp L2
[2021-09-22] MEDS: Insulin Lispro 100 UNIT/ML INSULN.PEN SC ×2 (10:50→16:07)
[2021-09-22 11:46] LABS: Bedside Glucose 158 mg/dL (70-110)
--- NOTE | 2021-09-22 15:02 | CASEMGMT ---
Social Work SW placed call to pt to continue discussion surrounding SNF placement. Francisca stating first choice is [facility]. [facility]. [facility] [address] Phone call to [facility] and they will consider referrals for pts with Covid on day 15 after positive test. Pt tested positive 09/11. Pt is not medically ready for discharge at this time. SW will continue to follow and make referrals at appropriate time. RODNEY Robison
[2021-09-22 15:36] LABS: Bedside Glucose 152 mg/dL (70-110)
[2021-09-22] MEDS: Enoxaparin 120 MG/0.8 ML Syringe SC (18:17)
[2021-09-22] MEDS: Furosemide 40 MG/4 ML Vial IV (18:17)
[2021-09-22] MEDS: Atorvastatin Calcium 20 MG Tablet PO (20:59)
[2021-09-22 23:35] LABS: Bedside Glucose 148 mg/dL (70-110)
[2021-09-23] VITALS (29 sets, daily range): BP systolic 98–137; BP diastolic 61–88; PULSE 58–100; RESP 12–32; TEMP 36.1–36.7; O2SAT 91–100
[2021-09-23] MEDS: Enoxaparin 120 MG/0.8 ML Syringe SC ×2 (05:18→17:19)
[2021-09-23 05:22] LABS: Absolute Lymphocyte Count 0.58 X10^3/uL (0.83-4.51); Basophil# 0.05 X10^3/uL; Basophil% 0.4 % (0-1); Eosinophil# 0.24 X10^3/uL; Eosinophils% 1.9 % (0-5); Hematocrit 49.7 % (40-54); Hemoglobin 17.5 g/dL (13.0-16.5); Lymphocyte # 0.58 X10^3/ul (0.83-4.51); Lymphocyte % 4.6 % (19-41); Mean Corp Hgb Conc 35.2 g/dL (32-36); Mean Corpuscular Hgb 30.8 pg (27.0-32.0); Mean Corpuscular Volume 87.5 fL (80-94); Mean Platelet Vol. 9.8 fl (6.2-12.0); Monocyte# 0.35 X10^3/uL; Monocyte% 2.8 % (0-10); NRBC Flagged by Analyzer 0 % (0-5); Neutrophil # 10.95 X10^3/uL (2.7-7.7); Neutrophil % 86.7 % (47-70); POSITIVE DIFFERENTIAL YES; Platelet Count 216 K/mm3 (150-450); RBC Distribution Width SD 38.6 fl (35.1-43.9); Red Blood Count 5.68 M/mm3 (4.6-6.2); White Blood Count 12.6 K/mm3 (4.4-11.0)
[2021-09-23 05:39] LABS: Differential Indicated SCAN CRITERIA MET
[2021-09-23 05:43] LABS: AST(SGOT) 44 U/L (15-37); Alanine Aminotransfer ALT/SGPT 38 U/L (16-61); Albumin, Serum 2.5 g/dL (3.2-5.0); Alkaline Phosphatase 94 U/L (45-117); Anion Gap 8 (5-15); BUN 41 mg/dL (7-18); BUN/Creat Ratio 37.3 RATIO (10-20); Bilirubin, Direct 0.37 mg/dL (0.00-0.30); Calcium,Total 8.9 mg/dL (8.5-10.1); Chloride 99 mmol/L (98-107); EST Glomerular Filtration Rate 68 mL/min (>60); Est Glom Filt Rate - Afr Amer 83 mL/min (>60); Estimated Creatinine Clearance 57.05 ml/min; Globulin 5.1 g/dL (2.2-4.2); Glucose 131 mg/dL (74-106); Potassium 4.6 mmol/L (3.5-5.1); Protein, Total 7.6 g/dL (6.4-8.2); Sodium Level 133 mmol/L (136-145)
[2021-09-23 05:51] LABS: International Normalized Ratio 1.7; Prothrombin Time (Protime)PT. 19.5 SECONDS (11.7-14.9)
[2021-09-23 05:57] LABS: Differential Comment SCANNED
[2021-09-23] MEDS: Ipratropium/Albuterol Sulfate 3 ML AMPUL.NEB INHALATION ×4 (07:00→20:02)
--- NOTE | 2021-09-23 07:36 | PN.CC_ITS ---
Assessment & Plan Assessment/Plan (1) COVID-19: PLAN: RECOMMENDATIONS: 1. Encourage BiPAP with sleep and wean FiO2 for saturations greater than 90%. 2. Okay to use Airvo during the day to facilitate nutrition 3. Continue therapeutic Lovenox. No need for daily INRs 4. Monitor off Decadron therapy. Continue baricitinib (10/02/2021) 5. Continue diuretic therapy as tolerated by hemodynamics and renal function. Hold on additional diuretics today 6. Avoid benzodiazepines if possible 7. Okay to leave the intensive care unit from my perspective IMPRESSIONS: 1. Acute hypoxemic respiratory failure secondary to COVID-19 pneumonia The patient presented to the hospital on September 17 with worsening dyspnea and hypoxemia, after having just been discharged from the hospital on September 14 with COVID-19 pneumonia. The patient is systemically anticoagulated on Coumadin at his baseline. Patient transition to Lovenox therapy, so daily INRs are not necessary. The patient was restarted on Decadron and will complete his course today. Patient was initiated on baricitinib. Appropriate surveillance for toxicity has been ordered. Patient appears to be slowly improving. Okay to transfer from the intensive care unit. We will hold on additional Lasix this evening as this may account for some of patient's weakness with ambulation 2. Chronic heart failure with preserved ejection fraction/arrhythmia Continue baseline diuretic regimen. BNP is not suggestive of significant strain. Continue on baseline diuretic therapy. Patient with longer QT interval on telemetry 3. Coagulopathy The patient is systemically anticoagulated on Coumadin as an outpatient. His INR on September 16 was noted to be 5.0. Recommend rechecking coagulation profile this morning. Patient transitioned to therapeutic Lovenox 4. Obesity/history of CVA/coronary artery dis ease/hypertension/hyperlipidemia/paroxysmal atrial fibrillation/diabetes mellitus Complicates care, management, recovery and prognosis. Continue to hold Coumadin. Continue sliding scale insulin coverage. Subjective Subjective Patient did okay overnight. Patient did wear BiPAP with sleep and felt subjectiv vargas slightly improved compared to yesterday. Patient was able to be placed on Airvo at 70% this morning. Patient does subjectively feel weaker with ambulation, but is not reporting orthostatic symptoms. Objective Data Objective Data Vital Signs: Vital Signs Temp Pulse Resp BP Pulse Ox 36.2 C L 75 24 H 116/81 H 93 09/23/21 04:00 09/23/21 07:02 09/23/21 07:02 09/23/21 07:00 09/23/21 07:02 Oxygen Flow Rate (L/min) 60 Oxygen Delivery Method Bi-pap Weight: 113.3 kg Body Mass Index (BMI) 36.6 Intake & Output: Intake and Output for Last 24 Hours 09/21/21 09/22/21 09/23/21 23:59 23:59 23:59 Intake Total 460 / 660 320 / 440 120 / 120 Output Total 800 / 1200 2125 / 3075 1150 / 1150 Balance -340 / -540 -1805 / -2635 -1030 / -1030 Medical Nutrition Assessment Dietitian: Malnutrition Criteria Met Start: 09/22/21 09:27 Freq: Status: Active Protocol: Document 09/22/21 09:28 DESIRAE (Rec: 09/22/21 09:28 [id number]) Nutrition Malnutrition Evidence of Malnutrition Exists Yes Malnutrition (severe): Acute Illness/Injury Evidenced By Suboptimal Energy Intake ( Severe),Weight Loss (Severe) Intake Problem Inadequate Oral Intake Etiology r/t resp. failure, decreased appetite Signs/Symptoms as evidenced by estimated PO intake meeting <50% of estimated energy needs Status Active Problem Clinical Problem Acute Disease or Injury Related Malnutrition Etiology severe, acute malnutrition r/t inadequate energy intake d/t acute illness Signs/Symptoms as evidenced by unintentional wt loss of 2.7kg/2.3% from usual body wt; 9kg/7.3% wt loss x 8 days per EMR; estimated PO intake meeting < 50% of estimated energy needs >5 days Status Active Problem Recommendation Dietitian Recommendations/Changes will continue liberalized diet to d/t poor PO intake and acute malnutrition; continue glucerna w/ meals. Will try magic cup w/ dinner for additional calories/protein if consumed. Lab / Micro Data Result Diagrams: 09/23/21 05:00 09/23/21 05:00 Labs: Laboratory Results - last 24 hr 09/22/21 10:50: POC Glucose 158 H 09/22/21 15:26: POC Glucose 152 H 09/22/21 22:44: POC Glucose 148 H 09/23/21 05:00: WBC 12.6 H, RBC 5.68, Hgb 17.5 H, Hct 49.7, MCV 87.5, MCH 30.8, MCHC 35.2, RDW Std Deviation 38.6, RDW Coeff of Arnol 12.0, Plt Count 216, MPV 9.8, Immature Gran % (Auto) 3.600 H, Neut % (Auto) 86.7 H, Lymph % (Auto) 4.6 L, [place] % (Auto) 2.8, Eos % (Auto) 1.9, Baso % (Auto) 0.4, Absolute Neuts (auto) 11.0 H, Absolute Lymphs (auto) 0.58 L, Nucleated RBC % 0, Differential Comment SCANNED 09/23/21 05:00: PT 19.5 H, INR 1.7 09/23/21 05:00: Sodium 133 L, Potassium 4.6, Chloride 99, Carbon Dioxide 26.0, Anion Gap 8, BUN 41 H, Creatinine 1.10, Estim Creat Clear Calc 57.05, Est GFR (MDRD) Af Amer 83, Est GFR (MDRD) Non-Af 68, BUN/Creatinine Ratio 37.3 H, Glucose 131 H, Calcium 8.9 09/23/21 05:00: Total Bilirubin 1.30 H, Direct Bilirubin 0.37 H, AST 44 H, ALT 38, Alkaline Phosphatase 94, Total Protein 7.6, Albumin 2.5 L, Globulin 5.1 H Micro: Microbiology 09/17/21 20:50 Urine, Random Streptococcus pneumoniae Antigen (M - Final Physical Exam Const alert Constitutional Narrative: On Airvo in the bed on my evaluation General Appearance: cooperative and ill appearing Nutritional Appearance: obese HEENT normocephalic, head/scalp atraumatic and moist oral mucous membranes General Ear: hearing grossly impaired diffuse Eyes PERRL, EOMs intact bilaterally and conjunctivae normal Neck supple General: trachea midline Chest inspection of chest normal Chest: symmetrical chest wall rise; Negative for crepitus Resp Effort and Inspection: labored Auscultation: diminished lung sounds; Negative for rales, rhonchi or wheezes Cardio regular rate and regular rhythm GI normal to inspection, nondistended, normoactive bowel sounds Extremity no clubbing, cyanosis or edema Skin no rashes or lesions noted Neuro CN's II-XII intact bilaterally, moves all extremities and no focal motor deficits Psych cooperative and affect normal Charges/Coding Visit Charges Inpatient E&M: 00183 Subs Hosp L3
[2021-09-23] MEDS: Multivitamins,Therapeutic Tablet 1 TABLET PO (10:50)
[2021-09-23] MEDS: Magnesium Chloride 64 MG Delay Rel.Tablet 128 MG PO ×2 (10:50→20:56)
[2021-09-23] MEDS: Bumetanide 2 MG Tablet 1 MG PO (10:50)
[2021-09-23] MEDS: CHLORHEXIDINE GLUC 2% CLOTH 1 EACH TOWELETTE TOPICAL (10:50)
[2021-09-23] MEDS: Spironolactone 25 MG Tablet 50 MG PO (10:50)
[2021-09-23] MEDS: Tamsulosin HCl 0.4 MG Capsule PO (10:50)
[2021-09-23] MEDS: Metoprolol Tartrate 50 MG Tablet PO ×2 (10:50→20:56)
[2021-09-23] MEDS: Senna/Docusate Sodium 1 Tablet 2 TABLET PO (10:55)
[2021-09-23] MEDS: Silver Sulfadiazine 1% Crm 50 gm Bottle 1 APPLIC TOPICAL ×2 (10:55→21:03)
[2021-09-23] MEDS: Insulin Lispro 100 UNIT/ML INSULN.PEN SC ×2 (11:07→21:01)
[2021-09-23 11:11] LABS: Bedside Glucose 181 mg/dL (70-110)
--- NOTE | 2021-09-23 12:13 | PCM.PN.HOSP ---
Subjective Subjective Feels better. Objective Data Objective Data Vital Signs: Vital Signs Temp Pulse Resp BP Pulse Ox 36.6 C 77 20 H 102/64 94 09/23/21 11:00 09/23/21 11:00 09/23/21 11:00 09/23/21 11:00 09/23/21 11:00 Oxygen Flow Rate (L/min) 60 Oxygen Delivery Method Airvo Weight: 113.3 kg Body Mass Index (BMI) 36.6 Intake & Output: Intake and Output for Last 24 Hours 09/21/21 09/22/21 09/23/21 23:59 23:59 23:59 Intake Total 460 / 660 320 / 440 120 / 120 Output Total 800 / 1200 2125 / 3075 1575 / 1575 Balance -340 / -540 -1805 / -2635 -1455 / -1455 Medical Nutrition Assessment Dietitian: Malnutrition Criteria Met Start: 09/22/21 09:27 Freq: Status: Active Protocol: Document 09/23/21 11:03 GARCIA (Rec: 09/23/21 11:03 [facility] [id number]) Nutrition Malnutrition Evidence of Malnutrition Exists Yes Malnutrition (severe): Acute Illness/Injury Evidenced By Suboptimal Energy Intake ( Severe),Weight Loss (Severe) Intake Problem Inadequate Oral Intake Etiology r/t resp. failure, decreased appetite Signs/Symptoms as evidenced by estimated PO intake meeting <50% of estimated energy needs Status Active Problem Clinical Problem Acute Disease or Injury Related Malnutrition Etiology severe, acute malnutrition r/t inadequate energy intake d/t acute illness Signs/Symptoms as evidenced by unintentional wt loss of 8.9% from usual body wt; 5.1% wt loss since adm (09/17/21); estimated PO intake meeting <50% of estimated energy needs >5 days Status Active Problem Recommendation Dietitian Recommendations/Changes will continue liberalized diet to d/t poor PO intake and acute malnutrition; continue glucerna w/ meals. Will continue magic cup w/ dinner for additional calories/ protein if consumed. Lab / Micro Data Result Diagrams: 09/23/21 05:00 09/23/21 05:00 Labs: Laboratory Results - last 24 hr 09/22/21 15:26: POC Glucose 152 H 09/22/21 22:44: POC Glucose 148 H 09/23/21 05:00: WBC 12.6 H, RBC 5.68, Hgb 17.5 H, Hct 49.7, MCV 87.5, MCH 30.8, MCHC 35.2, RDW Std Deviation 38.6, RDW Coeff of Arnol 12.0, Plt Count 216, MPV 9.8, Immature Gran % (Auto) 3.600 H, Neut % (Auto) 86.7 H, Lymph % (Auto) 4.6 L, [place] % (Auto) 2.8, Eos % (Auto) 1.9, Baso % (Auto) 0.4, Absolute Neuts (auto) 11.0 H, Absolute Lymphs (auto) 0.58 L, Nucleated RBC % 0, Differential Comment SCANNED 09/23/21 05:00: PT 19.5 H, INR 1.7 09/23/21 05:00: Sodium 133 L, Potassium 4.6, Chloride 99, Carbon Dioxide 26.0, Anion Gap 8, BUN 41 H, Creatinine 1.10, Estim Creat Clear Calc 57.05, Est GFR (MDRD) Af Amer 83, Est GFR (MDRD) Non-Af 68, BUN/Creatinine Ratio 37.3 H, Glucose 131 H, Calcium 8.9 09/23/21 05:00: Total Bilirubin 1.30 H, Direct Bilirubin 0.37 H, AST 44 H, ALT 38, Alkaline Phosphatase 94, Total Protein 7.6, Albumin 2.5 L, Globulin 5.1 H 09/23/21 11:01: POC Glucose 181 H Micro: Microbiology 09/17/21 20:50 Urine, Random Streptococcus pneumoniae Antigen (M - Final Physical Exam Const alert Resp normal respiratory effort, no retractions, no use of accessory muscles and clear to auscultation bilaterally Cardio regular rate, regular rhythm, S1 normal heart sound and S2 normal heart sound GI normal to inspection, nondistended, normoactive bowel sounds, soft to palpation, non-tender and non-distended Extremity normal to inspection and full ROM Skin no rashes or lesions noted and no wounds Neuro oriented x3 Sensorium / Orientation: awake and alert Assessment & Plan Assessment/Plan (1) Acute respiratory failure with hypoxia: (2) COVID-19: PLAN: 1. acute hypoxic respiratory failure 2/2 COVID 19 on Airvo ongoing bacterial work up negative. 2. COVID 19 pneumonia vaccinated. not boosted completed dexamethasone, but declined remdesivir seen by ID, on baricitinib quarantine through 09/29 3. HFrEF stable, chronic Bumex and spironolactone 4. pAfib therapeutic enoxaparin. resume warfarin 5. VTE prophylaxis: anticoagulated. Verified full code status, though pt reluctantly said he would want to be intubated if the alternative was . prognosis: guarded. Charges/Coding Visit Charges Inpatient E&M: 76046 Subs Hosp L2
[2021-09-23 17:45] LABS: Bedside Glucose 131 mg/dL (70-110)
[2021-09-23] MEDS: Atorvastatin Calcium 20 MG Tablet PO (20:56)
[2021-09-23 21:40] LABS: Bedside Glucose 177 mg/dL (70-110)
[2021-09-24] VITALS (22 sets, daily range): BP systolic 110–139; BP diastolic 63–92; PULSE 60–80; RESP 12–30; TEMP 36.1–36.8; O2SAT 93–99
[2021-09-24 04:13] LABS: Absolute Lymphocyte Count 0.43 X10^3/uL (0.83-4.51); Absolute Neutrophil Count 10.4 X10^3/uL (2.0-7.7); Basophil# 0.04 X10^3/uL; Basophil% 0.3 % (0-1); Eosinophils% 2.5 % (0-5); Hematocrit 50.4 % (40-54); Hemoglobin 17.8 g/dL (13.0-16.5); Lymphocyte # 0.43 X10^3/ul (0.83-4.51); Lymphocyte % 3.6 % (19-41); Mean Corp Hgb Conc 35.3 g/dL (32-36); Mean Corpuscular Volume 87.8 fL (80-94); Mean Platelet Vol. 9.7 fl (6.2-12.0); Monocyte# 0.38 X10^3/uL; Monocyte% 3.2 % (0-10); NRBC Flagged by Analyzer 0 % (0-5); Neutrophil # 10.39 X10^3/uL (2.7-7.7); Neutrophil % 86.9 % (47-70); POSITIVE DIFFERENTIAL YES; Platelet Count 226 K/mm3 (150-450); RBC Distribution Width CV 11.9 % (11.6-14.6); Red Blood Count 5.74 M/mm3 (4.6-6.2)
[2021-09-24 04:16] LABS: Differential Indicated SCAN CRITERIA MET
[2021-09-24 04:33] LABS: Differential Comment SCANNED
[2021-09-24 04:44] LABS: ALB/GLOB Ratio 0.5 RATIO (0.9-2.4); AST(SGOT) 43 U/L (15-37); Alanine Aminotransfer ALT/SGPT 36 U/L (16-61); Albumin, Serum 2.3 g/dL (3.2-5.0); Alkaline Phosphatase 94 U/L (45-117); Anion Gap 7 (5-15); BUN 37 mg/dL (7-18); BUN/Creat Ratio 34.9 RATIO (10-20); Chloride 102 mmol/L (98-107); Creatinine, Serum 1.06 mg/dL (0.70-1.30); EST Glomerular Filtration Rate 71 mL/min (>60); Est Glom Filt Rate - Afr Amer 86 mL/min (>60); Globulin 5.1 g/dL (2.2-4.2); Glucose 136 mg/dL (74-106); Potassium 4.4 mmol/L (3.5-5.1); Protein, Total 7.4 g/dL (6.4-8.2); Sodium Level 133 mmol/L (136-145)
[2021-09-24 04:46] LABS: Prothrombin Time (Protime)PT. 22.2 SECONDS (11.7-14.9)
[2021-09-24] MEDS: Polyethylene Glycol 3350 17 GM PACKET PO (04:50)
[2021-09-24] MEDS: Enoxaparin 120 MG/0.8 ML Syringe SC (04:58)
[2021-09-24] MEDS: Insulin Lispro 100 UNIT/ML INSULN.PEN SC ×2 (06:44→11:25)
[2021-09-24 06:55] LABS: Bedside Glucose 158 mg/dL (70-110)
[2021-09-24] MEDS: Ipratropium/Albuterol Sulfate 3 ML AMPUL.NEB INHALATION ×4 (07:24→19:30)
--- NOTE | 2021-09-24 08:55 | PN.CC_ITS ---
Assessment & Plan Assessment/Plan (1) COVID-19: PLAN: RECOMMENDATIONS: 1. Encourage BiPAP with sleep and wean FiO2 for saturations greater than 90%. 2. Okay to use Airvo during the day to facilitate nutrition 3. Continue therapeutic Lovenox. No need for daily INRs 4. Monitor off Decadron therapy. Continue baricitinib (10/02/2021) 5. Continue diuretic therapy as tolerated by hemodynamics and renal function. Hold on additional diuretics today 6. Avoid benzodiazepines if possible 7. Encourage aggressive pulmonary toileting IMPRESSIONS: 1. Acute hypoxemic respiratory failure secondary to COVID-19 pneumonia The patient presented to the hospital on September 17 with worsening dyspnea and hypoxemia, after having just been discharged from the hospital on September 14 with COVID-19 pneumonia. The patient was systemically anticoagulated on Coumadin at his baseline. Patient transitioned to Lovenox therapy, so daily INRs are not necessary. The patient completed Decadron. Patient is on baricitinib. Appropriate surveillance for toxicity has been ordered. Patient appears to be slowly improving. Recommend holding on additional Lasix this evening as this may account for some of patient's weakness with ambulation 2. Chronic heart failure with preserved ejection fraction/arrhythmia Continue baseline diuretic regimen. BNP is not suggestive of significant strain. Continue on baseline diuretic therapy. Patient with longer QT interval on telemetry 3. Coagulopathy The patient is systemically anticoagulated on Coumadin as an outpatient. His INR on September 16 was noted to be 5.0. Recommend rechecking coagulation profile this morning. Patient transitioned to therapeutic Lovenox 4. Obesity/history of CVA/coronary artery disease/hyp ertension/hyperlipidemia/paroxysmal atrial fibrillation/diabetes mellitus Complicates care, management, recovery and prognosis. Continue to hold Coumadin. Continue sliding scale insulin coverage. Subjective Subjective Patient transferred from the intensive care unit yesterday. Patient was able to tolerate BiPAP overnight. Patient subjectively feels slightly improved compared to previous. Patient still reporting a cough. No bleeding complications have been reported. Patient still having significant global weakness, but denies any focal deficits. Objective Data Objective Data Vital Signs: Vital Signs Temp Pulse Resp BP Pulse Ox 36.5 C L 73 24 H 114/78 95 09/24/21 03:00 09/24/21 07:25 09/24/21 07:24 09/24/21 03:00 09/24/21 07:24 Oxygen Flow Rate (L/min) 96 Oxygen Delivery Method Bi-pap Weight: 112.3 kg Body Mass Index (BMI) 36.6 Intake & Output: Intake and Output for Last 24 Hours 09/22/21 09/23/21 09/24/21 23:59 23:59 23:59 Intake Total 320 / 440 220 / 460 840 / 840 Output Total 2125 / 3075 1575 / 1575 Balance -1805 / -2635 -1355 / -1115 840 / 840 Medical Nutrition Assessment Dietitian: Malnutrition Criteria Met Start: 09/22/21 09:27 Freq: Status: Active Protocol: Document 09/23/21 11:03 GARCIA (Rec: 09/23/21 11:03 [facility] [id number]) Nutrition Malnutrition Evidence of Malnutrition Exists Yes Malnutrition (severe): Acute Illness/Injury Evidenced By Suboptimal Energy Intake ( Severe),Weight Loss (Severe) Intake Problem Inadequate Oral Intake Etiology r/t resp. failure, decreased appetite Signs/Symptoms as evidenced by estimated PO intake meeting <50% of estimated energy needs Status Active Problem Clinical Problem Acute Disease or Injury Related Malnutrition Etiology severe, acute malnutrition r/t inadequate energy intake d/t acute illness Signs/Symptoms as evidenced by unintentional wt loss of 8.9% from usual body wt; 5.1% wt loss since adm (09/17/21); estimated PO intake meeting <50% of estimated energy needs >5 days Status Active Problem Recommendation Dietitian Recommendations/Changes will continue liberalized diet to d/t poor PO intake and acute malnutrition; continue glucerna w/ meals. Will continue magic cup w/ dinner for additional calories/ protein if consumed. Lab / Micro Data Result Diagrams: 09/24/21 04:06 09/24/21 04:06 Labs: Laboratory Results - last 24 hr 09/23/21 11:01: POC Glucose 181 H 09/23/21 17:18: POC Glucose 131 H 09/23/21 20:53: POC Glucose 177 H 09/24/21 04:06: WBC 12.0 H, RBC 5.74, Hgb 17.8 H, Hct 50.4, MCV 87.8, MCH 31.0, MCHC 35.3, RDW Std Deviation 38.0, RDW Coeff of Arnol 11.9, Plt Count 226, MPV 9.7, Immature Gran % (Auto) 3.500 H, Neut % (Auto) 86.9 H, Lymph % (Auto) 3.6 L, [place] % (Auto) 3.2, Eos % (Auto) 2.5, Baso % (Auto) 0.3, Absolute Neuts (auto) 10.4 H, Absolute Lymphs (auto) 0.43 L, Nucleated RBC % 0, Differential Comment SCANNED 09/24/21 04:06: Sodium 133 L, Potassium 4.4, Chloride 102, Carbon Dioxide 24.0, Anion Gap 7, BUN 37 H, Creatinine 1.06, Estim Creat Clear Calc 59.20, Est GFR (MDRD) Af Amer 86, Est GFR (MDRD) Non-Af 71, BUN/Creatinine Ratio 34.9 H, Glucose 136 H, Calcium 9.0, Total Bilirubin 1.20 H, AST 43 H, ALT 36, Alkaline Phosphatase 94, Total Protein 7.4, Albumin 2.3 L, Globulin 5.1 H, Albumin/Globulin Ratio 0.5 L 09/24/21 04:06: PT 22.2 H, INR 2.0 09/24/21 06:43: POC Glucose 158 H Micro: Microbiology 09/17/21 20:50 Urine, Random Streptococcus pneumoniae Antigen (M - Final Physical Exam Const alert Constitutional Narrative: On BiPAP in the bed on my evaluation General Appearance: cooperative and ill appearing Nutritional Appearance: obese HEENT normocephalic, head/scalp atraumatic and moist oral mucous membranes General Ear: hearing grossly impaired diffuse Eyes PERRL, EOMs intact bilaterally and conjunctivae normal Neck supple General: trachea midline Chest inspection of chest normal Chest: symmetrical chest wall rise; Negative for crepitus Resp Effort and Inspection: labored Auscultation: diminished lung sounds; Negative for rales, rhonchi or wheezes Cardio regular rate and regular rhythm GI normal to inspection, nondistended, normoactive bowel sounds Extremity no clubbing, cyanosis or edema Skin no rashes or lesions noted Neuro CN's II-XII intact bilaterally, moves all extremities and no focal motor deficits Psych cooperative and affect normal Charges/Coding Visit Charges Inpatient E&M: 37172 Subs Hosp L3
[2021-09-24] MEDS: Bumetanide 2 MG Tablet 1 MG PO (09:42)
[2021-09-24] MEDS: Spironolactone 25 MG Tablet 50 MG PO (09:42)
[2021-09-24] MEDS: Magnesium Chloride 64 MG Delay Rel.Tablet 128 MG PO ×2 (09:42→21:54)
[2021-09-24] MEDS: Tamsulosin HCl 0.4 MG Capsule PO (09:42)
[2021-09-24] MEDS: Metoprolol Tartrate 50 MG Tablet PO ×2 (09:42→21:53)
[2021-09-24] MEDS: Multivitamins,Therapeutic Tablet 1 TABLET PO (09:42)
[2021-09-24] MEDS: Senna/Docusate Sodium 1 Tablet 2 TABLET PO (09:43)
[2021-09-24] MEDS: Silver Sulfadiazine 1% Crm 50 gm Bottle 1 APPLIC TOPICAL ×2 (09:44→21:55)
[2021-09-24 11:30] LABS: Bedside Glucose 190 mg/dL (70-110)
--- NOTE | 2021-09-24 12:43 | PN.HOSP_ITS ---
Subjective Subjective BiPAP overnight. Tolerating Airvo today. Objective Data Objective Data Vital Signs: Vital Signs Temp Pulse Resp BP Pulse Ox 36.7 C 72 20 H 119/72 98 09/24/21 11:00 09/24/21 11:26 09/24/21 11:26 09/24/21 11:00 09/24/21 11:26 Oxygen Flow Rate (L/min) 60 Oxygen Delivery Method Airvo Weight: 112.3 kg Body Mass Index (BMI) 36.6 Intake & Output: Intake and Output for Last 24 Hours 09/22/21 09/23/21 09/24/21 23:59 23:59 23:59 Intake Total 320 / 440 220 / 460 1320 / 1320 Output Total 2125 / 3075 1575 / 1575 500 / 500 Balance -1805 / -2635 -1355 / -1115 820 / 820 Medical Nutrition Assessment Dietitian: Malnutrition Criteria Met Start: 09/22/21 09:27 Freq: Status: Active Protocol: Document 09/23/21 11:03 GARCIA (Rec: 09/23/21 11:03 GARCIA [id number]) Nutrition Malnutrition Evidence of Malnutrition Exists Yes Malnutrition (severe): Acute Illness/Injury Evidenced By Suboptimal Energy Intake ( Severe),Weight Loss (Severe) Intake Problem Inadequate Oral Intake Etiology r/t resp. failure, decreased appetite Signs/Symptoms as evidenced by estimated PO intake meeting <50% of estimated energy needs Status Active Problem Clinical Problem Acute Disease or Injury Related Malnutrition Etiology severe, acute malnutrition r/t inadequate energy intake d/t acute illness Signs/Symptoms as evidenced by unintentional wt loss of 8.9% from usual body wt; 5.1% wt loss since adm (09/17/21); estimated PO intake meeting <50% of estimated energy needs >5 days Status Active Problem Recommendation Dietitian Recommendations/Changes will continue liberalized diet to d/t poor PO intake and acute malnutrition; continue glucerna w/ meals. Will continue magic cup w/ dinner for additional calories/ protein if consumed. Lab / Micro Data Result Diagrams: 09/24/21 04:06 09/24/21 04:06 Labs: Laboratory Results - last 24 hr 09/23/21 17:18: POC Glucose 131 H 09/23/21 20:53: POC Glucose 177 H 09/24/21 04:06: WBC 12.0 H, RBC 5.74, Hgb 17.8 H, Hct 50.4, MCV 87.8, MCH 31.0, MCHC 35.3, RDW Std Deviation 38.0, RDW Coeff of Arnol 11.9, Plt Count 226, MPV 9.7, Immature Gran % (Auto) 3.500 H, Neut % (Auto) 86.9 H, Lymph % (Auto) 3.6 L, [place] % (Auto) 3.2, Eos % (Auto) 2.5, Baso % (Auto) 0.3, Absolute Neuts (auto) 10.4 H, Absolute Lymphs (auto) 0.43 L, Nucleated RBC % 0, Differential Comment SCANNED 09/24/21 04:06: Sodium 133 L, Potassium 4.4, Chloride 102, Carbon Dioxide 24.0, Anion Gap 7, BUN 37 H, Creatinine 1.06, Estim Creat Clear Calc 59.20, Est GFR (MDRD) Af Amer 86, Est GFR (MDRD) Non-Af 71, BUN/Creatinine Ratio 34.9 H, Glucose 136 H, Calcium 9.0, Total Bilirubin 1.20 H, AST 43 H, ALT 36, Alkaline Phosphatase 94, Total Protein 7.4, Albumin 2.3 L, Globulin 5.1 H, Albumin/Globu yamila Ratio 0.5 L 09/24/21 04:06: PT 22.2 H, INR 2.0 09/24/21 06:43: POC Glucose 158 H 09/24/21 11:24: POC Glucose 190 H Micro: Microbiology 09/17/21 20:50 Urine, Random Streptococcus pneumoniae Antigen (M - Final Physical Exam Const alert and no apparent distress Resp normal respiratory effort and no retractions Resp Narrative: coarse breath sounds bilaterally. Cardio regular rate, regular rhythm, S1 normal heart sound and S2 normal heart sound GI normal to inspection, nondistended, normoactive bowel sounds, soft to palpation and non-tender Neuro Sensorium / Orientation: awake and alert Assessment & Plan Assessment/Plan (1) Acute respiratory failure with hypoxia: (2) COVID-19: PLAN: 1. acute hypoxic respiratory failure 2/2 COVID 19 on Airvo ongoing bacterial work up negative. 2. COVID 19 pneumonia vaccinated. not boosted completed dexamethasone, but declined remdesivir seen by ID, on baricitinib quarantine through 09/29 3. HFrEF stable, chronic Bumex and spironolactone 4. pAfib INR 2. Continue warfarin 5. VTE prophylaxis: anticoagulated. Verified full code status, though pt reluctantly said he would want to be intubated if the alternative was . prognosis: guarded. Charges/Coding Visit Charges Inpatient E&M: 89218 Subs Hosp L2
[2021-09-24 16:46] LABS: Bedside Glucose 119 mg/dL (70-110)
[2021-09-24] MEDS: Sodium Chloride 0.65% 1 SPRAY SPRAY.BTL 2 SPRAY NASAL (18:28)
[2021-09-24] MEDS: Atorvastatin Calcium 20 MG Tablet PO (21:53)
[2021-09-24 22:21] LABS: Bedside Glucose 129 mg/dL (70-110)
[2021-09-25] VITALS (23 sets, daily range): BP systolic 103–148; BP diastolic 51–116; PULSE 64–129; RESP 12–29; TEMP 36.1–36.8; O2SAT 91–99
[2021-09-25] MEDS: guaiFENesin 10 ML UDC (200MG/10ML) 20 ML PO ×2 (01:09→09:32)
[2021-09-25] MEDS: Sodium Chloride 0.65% 1 SPRAY SPRAY.BTL 2 SPRAY NASAL (01:14)
[2021-09-25 06:33] LABS: Absolute Lymphocyte Count 0.64 X10^3/uL (0.83-4.51); Absolute Neutrophil Count 10.8 X10^3/uL (2.0-7.7); Basophil# 0.05 X10^3/uL; Basophil% 0.4 % (0-1); Eosinophil# 0.33 X10^3/uL; Eosinophils% 2.6 % (0-5); Hemoglobin 17.1 g/dL (13.0-16.5); Lymphocyte # 0.64 X10^3/ul (0.83-4.51); Lymphocyte % 5.1 % (19-41); Mean Corp Hgb Conc 36.4 g/dL (32-36); Mean Corpuscular Volume 85.1 fL (80-94); Mean Platelet Vol. 9.9 fl (6.2-12.0); Monocyte# 0.48 X10^3/uL; Monocyte% 3.8 % (0-10); NRBC Flagged by Analyzer 0 % (0-5); Neutrophil % 85.3 % (47-70); Platelet Count 252 K/mm3 (150-450); RBC Distribution Width CV 11.9 % (11.6-14.6); RBC Distribution Width SD 36.3 fl (35.1-43.9); Red Blood Count 5.52 M/mm3 (4.6-6.2); White Blood Count 12.7 K/mm3 (4.4-11.0)
[2021-09-25 06:45] LABS: Bedside Glucose 105 mg/dL (70-110)
[2021-09-25 06:51] LABS: International Normalized Ratio 2.7; Prothrombin Time (Protime)PT. 27.8 SECONDS (11.7-14.9)
[2021-09-25 07:03] LABS: ALB/GLOB Ratio 0.4 RATIO (0.9-2.4); AST(SGOT) 47 U/L (15-37); Alanine Aminotransfer ALT/SGPT 32 U/L (16-61); Albumin, Serum 2.2 g/dL (3.2-5.0); Alkaline Phosphatase 95 U/L (45-117); Anion Gap 7 (5-15); BUN 36 mg/dL (7-18); Calcium,Total 8.6 mg/dL (8.5-10.1); Chloride 101 mmol/L (98-107); Creatinine, Serum 1.03 mg/dL (0.70-1.30); EST Glomerular Filtration Rate 74 mL/min (>60); Est Glom Filt Rate - Afr Amer 89 mL/min (>60); Estimated Creatinine Clearance 60.92 ml/min; Glucose 104 mg/dL (74-106); Potassium 4.4 mmol/L (3.5-5.1); Protein, Total 7.2 g/dL (6.4-8.2); Sodium Level 132 mmol/L (136-145)
[2021-09-25] MEDS: Ipratropium/Albuterol Sulfate 3 ML AMPUL.NEB INHALATION ×4 (07:13→19:55)
--- NOTE | 2021-09-25 07:52 | PCM.PN.INT ---
Assessment & Plan Assessment/Plan (1) COVID-19: PLAN: RECOMMENDATIONS: 1. Encourage BiPAP with sleep and wean FiO2 for saturations greater than 90%. 2. Okay to use Airvo during the day to facilitate nutrition 3. Coumadin for DVT/A. fib prophylaxis 4. Monitor off Decadron therapy. Continue baricitinib (10/02/2021) 5. Continue diuretic therapy as tolerated by hemodynamics and renal function. 6. Avoid benzodiazepines if possible 7. Encourage aggressive pulmonary toileting IMPRESSIONS: 1. Acute hypoxemic respiratory failure secondary to COVID-19 pneumonia The patient presented to the hospital on September 17 with worsening dyspnea and hypoxemia, after having just been discharged from the hospital on September 14 with COVID-19 pneumonia. The patient was systemically anticoagulated on Coumadin at his baseline. Patient remains on Coumadin with daily INR. The patient completed Decadron, but is on baricitinib through 10/02/2021. Appropriate surveillance for toxicity has been ordered. Patient appears to be slowly improving. Continue to diuresis as tolerated 2. Chronic heart failure with preserved ejection fraction/arrhythmia Continue baseline diuretic regimen. BNP is not suggestive of significant strain. Continue on baseline diuretic therapy. Patient with longer QT interval on telemetry 3. Coagulopathy The patient is systemically anticoagulated on Coumadin as an outpatient. His INR on September 16 was noted to be 5.0. Recommend rechecking coagulation profile this morning. Patient transitioned to therapeutic Lovenox 4. Obesity/history of CVA/coronary artery disease/hypertension/hyperlipidemia/paroxysmal atrial fibrillation/diabetes mellitus Complicates care, management, recovery and prognosis. Continue to hold Coumadin. Continue sliding scale insulin coverage. Subjective Subjective Patient did okay overnight. No acute issues were reported. Patient did remain on BiPAP during the day. Patient was able to make it to the bathroom with the help of nursing. No chest pain reported. Objective Data Objective Data Vital Signs: Vital Signs Temp Pulse Resp BP Pulse Ox 36.1 C L 67 24 H 110/57 L 93 09/25/21 05:00 09/25/21 07:13 09/25/21 07:13 09/25/21 05:00 09/25/21 07:13 Oxygen Flow Rate (L/min) 60 Oxygen Delivery Method Bi-pap Weight: 113.5 kg Body Mass Index (BMI) 36.6 Intake & Output: Intake and Output for Last 24 Hours 09/23/21 09/24/21 09/25/21 23:59 23:59 23:59 Intake Total 220 / 460 1620 / 1740 220 / 220 Output Total 1575 / 1575 1050 / 1050 475 / 475 Balance -1355 / -1115 570 / 690 -255 / -255 Medical Nutrition Assessment Dietitian: Malnutrition Criteria Met Start: 09/22/21 09:27 Freq: Status: Active Protocol: Document 09/23/21 11:03 [facility] (Rec: 09/23/21 11:03 [facility] [id number]) Nutrition Malnutrition Evidence of Malnutrition Exists Yes Malnutrition (severe): Acute Illness/Injury Evidenced By Suboptimal Energy Intake ( Severe),Weight Loss (Severe) Intake Problem Inadequate Oral Intake Etiology r/t resp. failure, decreased appetite Signs/Symptoms as evidenced by estimated PO intake meeting <50% of estimated energy needs Status Active Problem Clinical Problem Acute Disease or Injury Related Malnutrition Etiology severe, acute malnutrition r/t inadequate energy intake d/t acute illness Signs/Symptoms as evidenced by unintentional wt loss of 8.9% from usual body wt; 5.1% wt loss since adm (09/17/21); estimated PO intake meeting <50% of estimated energy needs >5 days Status Active Problem Recommendation Dietitian Recommendations/Changes will continue liberalized diet to d/t poor PO intake and acute malnutrition; continue glucerna w/ meals. Will continue magic cup w/ dinner for additional calories/ protein if consumed. Lab / Micro Data Result Diagrams: 09/25/21 06:15 09/25/21 06:15 Labs: Laboratory Results - last 24 hr 09/24/21 11:24: POC Glucose 190 H 09/24/21 16:31: POC Glucose 119 H 09/24/21 21:50: POC Glucose 129 H 09/25/21 06:15: WBC 12.7 H, RBC 5.52, Hgb 17.1 H, Hct 47.0, MCV 85.1, MCH 31.0, MCHC 36.4 H, RDW Std Deviation 36.3, RDW Coeff of Arnol 11.9, Plt Count 252, MPV 9.9, Immature Gran % (Auto) 2.800 H, Neut % (Auto) 85.3 H, Lymph % (Auto) 5.1 L, [place] % (Auto) 3.8, Eos % (Auto) 2.6, Baso % (Auto) 0.4, Absolute Neuts (auto) 10.8 H, Absolute Lymphs (auto) 0.64 L, Nucleated RBC % 0 09/25/21 06:15: Sodium 132 L, Potassium 4.4, Chloride 101, Carbon Dioxide 24.0, Anion Gap 7, BUN 36 H, Creatinine 1.03, Estim Creat Clear Calc 60.92, Est GFR (MDRD) Af Amer 89, Est GFR (MDRD) Non-Af 74, BUN/Creatinine Ratio 35.0 H, Glucose 104, Calcium 8.6, Total Bilirubin 1.10 H, AST 47 H, ALT 32, Alkaline Phosphatase 95, Total Protein 7.2, Albumin 2.2 L, Globulin 5.0 H, Albumin/Globulin Ratio 0.4 L 09/25/21 06:15: PT 27.8 H, INR 2.7 09/25/21 06:38: POC Glucose 105 Micro: Microbiology 09/17/21 20:50 Urine, Random Streptococcus pneumoniae Antigen (M - Final Physical Exam Const alert Constitutional Narrative: On BiPAP in the bed on my evaluation General Appearance: cooperative and ill appearing Nutritional Appearance: obese HEENT normocephalic, head/scalp atraumatic and moist oral mucous membranes General Ear: hearing grossly impaired diffuse Eyes PERRL, EOMs intact bilaterally and conjunctivae normal Neck supple General: trachea midline Chest inspection of chest normal Chest: symmetrical chest wall rise; Negative for crepitus Resp Effort and Inspection: labored Auscultation: diminished lung sounds; Negative for rales, rhonchi or wheezes Cardio regular rate and regular rhythm GI normal to inspection, nondistended, normoactive bowel sounds Extremity no clubbing, cyanosis or edema Skin no rashes or lesions noted Neuro CN's II-XII intact bilaterally, moves all extremities and no focal motor deficits Psych cooperative and affect normal Charges/Coding Visit Charges Inpatient E&M: 73048 Subs Hosp L3
[2021-09-25] MEDS: Bumetanide 2 MG Tablet 1 MG PO (09:25)
[2021-09-25] MEDS: Metoprolol Tartrate 50 MG Tablet PO ×2 (09:25→23:00)
[2021-09-25] MEDS: Multivitamins,Therapeutic Tablet 1 TABLET PO (09:25)
[2021-09-25] MEDS: Magnesium Chloride 64 MG Delay Rel.Tablet 128 MG PO ×2 (09:26→23:00)
[2021-09-25] MEDS: Silver Sulfadiazine 1% Crm 50 gm Bottle 1 APPLIC TOPICAL ×2 (09:26→23:00)
[2021-09-25] MEDS: Tamsulosin HCl 0.4 MG Capsule PO (09:26)
[2021-09-25] MEDS: Senna/Docusate Sodium 1 Tablet 2 TABLET PO ×2 (09:26→22:59)
[2021-09-25] MEDS: Acetaminophen 325 MG Tablet 650 MG PO (09:32)
[2021-09-25] MEDS: Spironolactone 25 MG Tablet 50 MG PO (09:32)
--- NOTE | 2021-09-25 11:24 | CPS ---
Airvo decreased to 84% and saturation is 94% - 95%. Nurse notified of change.
--- NOTE | 2021-09-25 11:28 | PN.HOSP_ITS ---
Subjective Subjective Does not feel well today. Was found earlier with his air Vo off but it had only been a short period of time. Patient's pulse ox is in the 90s but he he states he just does not feel any better today if not worse. Objective Data Objective Data Vital Signs: Vital Signs Temp Pulse Resp BP Pulse Ox 36.6 C 76 20 H 148/81 H 94 09/25/21 09:20 09/25/21 09:25 09/25/21 09:20 09/25/21 09:20 09/25/21 09:20 Oxygen Flow Rate (L/min) 60 Oxygen Delivery Method Airvo Weight: 113.5 kg Body Mass Index (BMI) 36.6 Intake & Output: Intake and Output for Last 24 Hours 09/23/21 09/24/21 09/25/21 23:59 23:59 23:59 Intake Total 220 / 460 1620 / 1740 220 / 220 Output Total 1575 / 1575 1050 / 1050 475 / 475 Balance -1355 / -1115 570 / 690 -255 / -255 Medical Nutrition Assessment Dietitian: Malnutrition Criteria Met Start: 09/22/21 09:27 Freq: Status: Active Protocol: Document 09/23/21 11:03 [facility] (Rec: 09/23/21 11:03 [facility] [id number]) Nutrition Malnutrition Evidence of Malnutrition Exists Yes Malnutrition (severe): Acute Illness/Injury Evidenced By Suboptimal Energy Intake ( Severe),Weight Loss (Severe) Intake Problem Inadequate Oral Intake Etiology r/t resp. failure, decreased appetite Signs/Symptoms as evidenced by estimated PO intake meeting <50% of estimated energy needs Status Active Problem Clinical Problem Acute Disease or Injury Related Malnutrition Etiology severe, acute malnutrition r/t inadequate energy intake d/t acute illness Signs/Symptoms as evidenced by unintentional wt loss of 8.9% from usual body wt; 5.1% wt loss since adm (09/17/21); estimated PO intake meeting <50% of estimated energy needs >5 days Status Active Problem Recommendation Dietitian Recommendations/Changes will continue liberalized diet to d/t poor PO intake and acute malnutrition; continue glucerna w/ meals. Will continue magic cup w/ dinner for additional calories/ protein if consumed. Lab / Micro Data Result Diagrams: 09/25/21 06:15 09/25/21 06:15 Labs: Laboratory Results - last 24 hr 09/24/21 11:24: POC Glucose 190 H 09/24/21 16:31: POC Glucose 119 H 09/24/21 21:50: POC Glucose 129 H 09/25/21 06:15: WBC 12.7 H, RBC 5.52, Hgb 17.1 H, Hct 47.0, MCV 85.1, MCH 31.0, MCHC 36.4 H, RDW Std Deviation 36.3, RDW Coeff of Arnol 11.9, Plt Count 252, MPV 9.9, Immature Gran % (Auto) 2.800 H, Neut % (Auto) 85.3 H, Lymph % (Auto) 5.1 L, [place] % (Auto) 3.8, Eos % (Auto) 2.6, Baso % (Auto) 0.4, Absolute Neuts (auto) 10.8 H, Absolute Lymphs (auto) 0.64 L, Nucleated RBC % 0 09/25/21 06:15: Sodium 132 L, Potassium 4.4, Chloride 101, Carbon Dioxide 24.0, Anion Gap 7, BUN 36 H, Creatinine 1.03, Estim Creat Clear Calc 60.92, Est GFR (MDRD) Af Amer 89, Est GFR (MDRD) Non-Af 74, BUN/Creatinine Ratio 35.0 H, Glucose 104, Calcium 8.6, Total Bilirubin 1.10 H, AST 47 H, ALT 32, Alkaline Phosphatase 95, Total Protein 7.2, Albumin 2.2 L, Globulin 5.0 H, Albumin/Globulin Ratio 0.4 L 09/25/21 06:15: PT 27.8 H, INR 2.7 09/25/21 06:38: POC Glucose 105 Micro: Microbiology 09/17/21 20:50 Urine, Random Streptococcus pneumoniae Antigen (M - Final Physical Exam Const alert and no apparent distress Constitutional Narrative: listless Resp normal respiratory effort and no retractions Resp Narrative: Coarse breath sounds bilaterally Cardio regular rate, regular rhythm, S1 normal heart sound and S2 normal heart sound GI normal to inspection, nondistended, normoactive bowel sounds, soft to palpation, non-tender and non-distended Extremity normal to inspection Neuro Sensorium / Orientation: awake and alert Assessment & Plan Assessment/Plan (1) Acute respiratory failure with hypoxia: (2) COVID-19: PLAN: 1. acute hypoxic respiratory failure 2/2 COVID 19 on Airvo ongoing bacterial work up negative. 2. COVID 19 pneumonia vaccinated. not boosted completed dexamethasone, but declined remdesivir seen by ID, on baricitinib quarantine through 09/29 3. HFrEF stable, chronic Bumex and spironolactone 4. pAfib INR 2.7. Continue warfarin, but with a jump in his INR from 2-2.7 I suspect that we would overshoot his INR tomorrow if we can do the 5 mg so we will decrease his dosing 2.5 mg daily for now. 5. VTE prophylaxis: anticoagulated. Previously verified full code status, though pt reluctantly said he would want to be intubated if the alternative was . prognosis: guarded. Charges/Coding Visit Charges Inpatient E&M: 75335 Subs Hosp L2
[2021-09-25 13:06] LABS: Bedside Glucose 114 mg/dL (70-110)
--- NOTE | 2021-09-25 15:21 | CPS ---
Pt decreased to 74% ON Airvo and saturation 95%. Pt sitting up and chair and kelin Airvo well.
[2021-09-25] MEDS: Insulin Lispro 100 UNIT/ML INSULN.PEN SC (17:28)
[2021-09-25 17:41] LABS: Bedside Glucose 165 mg/dL (70-110)
[2021-09-25] MEDS: Atorvastatin Calcium 20 MG Tablet PO (23:10)
[2021-09-25 23:30] LABS: Bedside Glucose 143 mg/dL (70-110)
[2021-09-26] VITALS (21 sets, daily range): BP systolic 92–120; BP diastolic 58–76; PULSE 73–106; RESP 12–32; TEMP 36.3–37.2; O2SAT 94–98
--- NOTE | 2021-09-26 04:24 | RAD_ITS ---
HISTORY: constipation EXAMINATION/TECHNIQUE: XR Abdomen 1 View: 4 image AP abdominal radiograph COMPARISON: None FINDINGS: LINES AND TUBES: None. BOWEL GAS PATTERN: Non-obstructive. No bowel or stomach distention. Moderate descending colonic stool. FREE AIR: None visualized. ORGANOMEGALY: Not seen. CALCIFICATIONS: No abnormal calcifications observed. LOWER CHEST: No acute pathology. BONES AND SOFT TISSUES: No acute pathology. Sternotomy wires are midline and intact. Aortic atherosclerosis. Moderate to severe lower lumbosacral facet arthropathy. RAD/Abdomen Single View (Portable) IMPRESSION: Moderate descending colonic stool. Aortic atherosclerosis and mild tortuosity. at 0510 Reported and signed by: Mack Lopez MD Electronically Signed: Mack Lopez MD at 5:09 EST ,
[2021-09-26 06:34] LABS: Absolute Lymphocyte Count 0.52 X10^3/uL (0.83-4.51); Absolute Neutrophil Count 12.4 X10^3/uL (2.0-7.7); Basophil# 0.03 X10^3/uL; Basophil% 0.2 % (0-1); Eosinophil# 0.16 X10^3/uL; Eosinophils% 1.2 % (0-5); Hematocrit 49.7 % (40-54); Hemoglobin 17.5 g/dL (13.0-16.5); Lymphocyte # 0.52 X10^3/ul (0.83-4.51); Lymphocyte % 3.8 % (19-41); Mean Corp Hgb Conc 35.2 g/dL (32-36); Mean Corpuscular Hgb 31.1 pg (27.0-32.0); Mean Corpuscular Volume 88.3 fL (80-94); Monocyte# 0.45 X10^3/uL; Monocyte% 3.3 % (0-10); NRBC Flagged by Analyzer 0 % (0-5); Neutrophil # 12.37 X10^3/uL (2.7-7.7); POSITIVE DIFFERENTIAL YES; Platelet Count 257 K/mm3 (150-450); RBC Distribution Width CV 11.9 % (11.6-14.6); RBC Distribution Width SD 38.1 fl (35.1-43.9); Red Blood Count 5.63 M/mm3 (4.6-6.2); White Blood Count 13.7 K/mm3 (4.4-11.0)
[2021-09-26 06:46] LABS: Differential Indicated SCAN CRITERIA MET
[2021-09-26 06:55] LABS: ALB/GLOB Ratio 0.4 RATIO (0.9-2.4); AST(SGOT) 51 U/L (15-37); Alanine Aminotransfer ALT/SGPT 35 U/L (16-61); Albumin, Serum 2.2 g/dL (3.2-5.0); Alkaline Phosphatase 111 U/L (45-117); Anion Gap 8 (5-15); BUN 37 mg/dL (7-18); BUN/Creat Ratio 38.1 RATIO (10-20); Calcium,Total 8.6 mg/dL (8.5-10.1); Chloride 101 mmol/L (98-107); Creatinine, Serum 0.97 mg/dL (0.70-1.30); EST Glomerular Filtration Rate 79 mL/min (>60); Est Glom Filt Rate - Afr Amer 96 mL/min (>60); Estimated Creatinine Clearance 64.69 ml/min; Glucose 113 mg/dL (74-106); Potassium 4.5 mmol/L (3.5-5.1); Protein, Total 7.2 g/dL (6.4-8.2); Sodium Level 131 mmol/L (136-145)
[2021-09-26] MEDS: Ipratropium/Albuterol Sulfate 3 ML AMPUL.NEB INHALATION ×4 (06:58→20:25)
[2021-09-26 06:59] LABS: Prothrombin Time (Protime)PT. 30.5 SECONDS (11.7-14.9)
[2021-09-26 07:21] LABS: Bedside Glucose 144 mg/dL (70-110)
[2021-09-26] MEDS: Bumetanide 2 MG Tablet 1 MG PO (08:33)
[2021-09-26] MEDS: Tamsulosin HCl 0.4 MG Capsule PO (08:33)
[2021-09-26] MEDS: Spironolactone 25 MG Tablet 50 MG PO (08:33)
[2021-09-26] MEDS: Metoprolol Tartrate 50 MG Tablet PO ×2 (08:33→20:47)
[2021-09-26] MEDS: Magnesium Chloride 64 MG Delay Rel.Tablet 128 MG PO ×2 (08:33→20:47)
[2021-09-26] MEDS: Senna/Docusate Sodium 1 Tablet 2 TABLET PO ×2 (08:34→20:47)
[2021-09-26] MEDS: Multivitamins,Therapeutic Tablet 1 TABLET PO (08:34)
[2021-09-26] MEDS: Silver Sulfadiazine 1% Crm 50 gm Bottle 1 APPLIC TOPICAL ×2 (08:34→20:51)
[2021-09-26] MEDS: 0.9% Saline Lock 10 ML Syringe IV (08:37)
--- NOTE | 2021-09-26 08:38 | PN.HOSP_ITS ---
Subjective Subjective Patient has not moved [place] for several days probably has tried Metamucil and other laxative but no good result. On air Vo 80% FiO2 Objective Data Objective Data Vital Signs: Vital Signs Temp Pulse Resp BP Pulse Ox 97.9 F 83 23 H 120/58 L 95 09/26/21 06:00 09/26/21 08:33 09/26/21 08:27 09/26/21 06:00 09/26/21 08:27 Oxygen Flow Rate (L/min) 60 Oxygen Delivery Method Airvo Weight: 250 lb 3.594 oz Body Mass Index (BMI) 36.6 Intake & Output: Intake and Output for Last 24 Hours 09/24/21 09/25/21 09/26/21 23:59 23:59 23:59 Intake Total 1620 / 1740 660 / 660 Output Total 1050 / 1050 675 / 675 Balance 570 / 690 -15 / -15 Medical Nutrition Assessment Dietitian: Malnutrition Criteria Met Start: 09/22/21 09:27 Freq: Status: Active Protocol: Document 09/23/21 11:03 [facility] (Rec: 09/23/21 11:03 [facility] [id number]) Nutrition Malnutrition Evidence of Malnutrition Exists Yes Malnutrition (severe): Acute Illness/Injury Evidenced By Suboptimal Energy Intake ( Severe),Weight Loss (Severe) Intake Problem Inadequate Oral Intake Etiology r/t resp. failure, decreased appetite Signs/Symptoms as evidenced by estimated PO intake meeting <50% of estimated energy needs Status Active Problem Clinical Problem Acute Disease or Injury Related Malnutrition Etiology severe, acute malnutrition r/t inadequate energy intake d/t acute illness Signs/Symptoms as evidenced by unintentional wt loss of 8.9% from usual body wt; 5.1% wt loss since adm (09/17/21); estimated PO intake meeting <50% of estimated energy needs >5 days Status Active Problem Recommendation Dietitian Recommendations/Changes will continue liberalized diet to d/t poor PO intake and acute malnutrition; continue glucerna w/ meals. Will continue magic cup w/ dinner for additional calories/ protein if consumed. Lab / Micro Data Result Diagrams: 09/26/21 05:31 09/26/21 05:31 Labs: Laboratory Results - last 24 hr 09/25/21 13:00: POC Glucose 114 H 09/25/21 17:27: POC Glucose 165 H 09/25/21 23:02: POC Glucose 143 H 09/26/21 05:31: WBC 13.7 H, RBC 5.63, Hgb 17.5 H, Hct 49.7, MCV 88.3, MCH 31.1, MCHC 35.2, RDW Std Deviation 38.1, RDW Coeff of Arnol 11.9, Plt Count 257, MPV 10.0, Immature Gran % (Auto) 1.500 H, Neut % (Auto) 90.0 H, Lymph % (Auto) 3.8 L , [place] % (Auto) 3.3, Eos % (Auto) 1.2, Baso % (Auto) 0.2, Absolute Neuts (auto) 12.4 H, Absolute Lymphs (auto) 0.52 L, Nucleated RBC % 0 09/26/21 05:31: Sodium 131 L, Potassium 4.5, Chloride 101, Carbon Dioxide 22.0, Anion Gap 8, BUN 37 H, Creatinine 0.97, Estim Creat Clear Calc 64.69, Est GFR (MDRD) Af Amer 96, Est GFR (MDRD) Non-Af 79, BUN/Creatinine Ratio 38.1 H, Glucose 113 H, Calcium 8.6, Total Bilirubin 1.00, AST 51 H, ALT 35, Alkaline Phosphatase 111, Total Protein 7.2, Albumin 2.2 L, Globulin 5.0 H, Albumin/Globulin Ratio 0.4 L 09/26/21 05:31: PT 30.5 H, INR 3.0 09/26/21 07:03: POC Glucose 144 H Micro: Microbiology 09/17/21 20:50 Urine, Random Streptococcus pneumoniae Antigen (M - Final Radiography Diagnostic Testing: Radiology Impression KUB X-Ray 09/26/21 04:24 IMPRESSION: Moderate descending colonic stool. Aortic atherosclerosis and mild tortuosity. at 0510 Reported and signed by: Mack Lopez MD Electronically Signed: Mack Lopez MD at 5:09 EST Reading Location ID and State: [facility] / [place] Tel , Service support , Physical Exam Narrative General: Alert, Oriented x3, Cooperative HEENT: Atraumatic, PERRLA, EOMI, Normocephalic Oral: No Gingival or Mucosal Lesions/ Ulcerations Neck: Supple, No JVD, Negative Carotid Bruits Lungs: Air entry diminished in bilateral lung bases. No crepitation/rhonchi. On air Vo Cardiovascular: Sinus rhythm, Normal S1, Normal S2, No murmurs Abdomen: Bowel Sounds Present, Soft, Non Tender, Non-Distended : No renal angle tenderness. No suprapubic tenderness. Extremities: No edema, Capillary Refill Less than 3 Seconds Skin: No rashes, No breakdown Musculoskeletal: Mild weakness of all extremity 4/5. No Tenderness to Palpation of Joints or Extremities Neurological: Cranial nerves II-XII grossly intact, DTR 2+/4 and Symmetrical, Neuro grossly intact Psych/Mental Status: Flat affect Assessment & Plan Assessment/Plan (1) Acute respiratory failure with hypoxia: (2) COVID-19: PLAN: 1. acute hypoxic respiratory failure due to bilateral COVID-19 pneumonia on Airvo bacterial work up negative. 2. COVID 19 pneumonia vaccinated. not boosted completed dexamethasone, but declined remdesivir seen by ID, on baricitinib quarantine through 09/29 3. Chronic HFrEF Bumex and spironolactone 4. pAfib: On warfarin. INR 3.0. Hold warfarin today and resume tomorrow at warfarin 2 mg daily. Monitor INR daily. 5. VTE prophylaxis: anticoagulated. CODE STATUS, full code. He would want to be intubated if the alternative was . prognosis: guarded. Charges/Coding Visit Charges Inpatient E&M: 92996 Subs Hosp L2
--- NOTE | 2021-09-26 11:01 | PCM.PN.INT ---
Assessment & Plan Assessment/Plan (1) COVID-19: PLAN: RECOMMENDATIONS: 1. Encourage BiPAP with sleep and wean FiO2 for saturations greater than 90%. 2. Okay to use Airvo during the day to facilitate nutrition. 3. Coumadin for DVT/A. fib prophylaxis. Continue to monitor INR daily. 4. Continue baricitinib to complete treatment course. 5. Continue diuretic therapy as tolerated by hemodynamics and renal function. 6. Encourage incentive spirometer use and mobilize patient as tolerated. 7. Obtain chest x-ray today. If worsening, consider empiric antimicrobial initiation. IMPRESSIONS: 1. Acute hypoxemic respiratory failure secondary to COVID-19 pneumonia The patient presented to the hospital on September 17 with worsening dyspnea and hypoxemia, after having just been discharged from the hospital on September 14 with COVID-19 pneumonia. The patient is systemically anticoagulated on Coumadin at his baseline. The patient completed Decadron, but remains on baricitinib through 10/02/2021. Continue diuresis as tolerated by hemodynamics and renal function. Will obtain repeat chest x-ray today. 2. Chronic heart failure with preserved ejection fraction/arrhythmia Continue baseline diuretic regimen. 3. Coagulopathy The patient is systemically anticoagulated on Coumadin as an outpatient. Plan to continue the aforementioned and monitor INR daily. 4. Obesity/history of CVA/coronary artery disease/hypertension/hyperlipidemia/paroxysmal atrial fibrillation/diabetes mellitus Complicates care, management, recovery and prognosis. Continue sliding scale insulin coverage. This note was generated with [employer] dictation software. It may contain incorrect words, spelling, and punctuation that were not noted in checking the note before signing. Subjective Subjective The patient was seen and examined at the bedside this morning. Events from the last 24 hours have been reviewed. The patient is currently afebrile, hemodynamically stable and maintaining appropriate oxygen saturations on Airvo heated high flow with an FiO2 requirement of 82%. The patient is currently documented to be overall net -6.6 L for the hospitalization. He remains on scheduled bronchodilators and baricitinib. Creatinine is within normal limits. Objective Data Objective Data The patient's most recent lab work, culture data and imaging studies have all been personally reviewed. Rapid coronavirus antigen testing was positive on September 11. Vital Signs: Vital Signs Temp Pulse Resp BP Pulse Ox 97.9 F 83 23 H 120/58 L 96 09/26/21 06:00 09/26/21 08:33 09/26/21 08:27 09/26/21 06:00 09/26/21 08:44 Oxygen Flow Rate (L/min) 60 Oxygen Delivery Method Airvo Weight: 113.5 kg Body Mass Index (BMI) 36.6 Intake & Output: Intake and Output for Last 24 Hours 09/24/21 09/25/21 09/26/21 23:59 23:59 23:59 Intake Total 1620 / 1740 660 / 660 Output Total 1050 / 1050 675 / 675 Balance 570 / 690 -15 / -15 Medical Nutrition Assessment Dietitian: Malnutrition Criteria Met Start: 09/22/21 09:27 Freq: Status: Active Protocol: Document 09/23/21 11:03 [facility] (Rec: 09/23/21 11:03 [facility] [id number]) Nutrition Malnutrition Evidence of Malnutrition Exists Yes Malnutrition (severe): Acute Illness/Injury Evidenced By Suboptimal Energy Intake ( Severe),Weight Loss (Severe) Intake Problem Inadequate Oral Intake Etiology r/t resp. failure, decreased appetite Signs/Symptoms as evidenced by estimated PO intake meeting <50% of estimated energy needs Status Active Problem Clinical Problem Acute Disease or Injury Related Malnutrition Etiology severe, acute malnutrition r/t inadequate energy intake d/t acute illness Signs/Symptoms as evidenced by unintentional wt loss of 8.9% from usual body wt; 5.1% wt loss since adm (09/17/21); estimated PO intake meeting <50% of estimated energy needs >5 days Status Active Problem Recommendation Dietitian Recommendations/Changes will continue liberalized diet to d/t poor PO intake and acute malnutrition; continue glucerna w/ meals. Will continue magic cup w/ dinner for additional calories/ protein if consumed. Lab / Micro Data Attestation: I reviewed the patient's lab results. Result Diagrams: 09/27/21 05:44 09/27/21 05:44 Labs: Laboratory Results - last 24 hr 09/25/21 13:00: POC Glucose 114 H 09/25/21 17:27: POC Glucose 165 H 09/25/21 23:02: POC Glucose 143 H 09/26/21 05:31: WBC 13.7 H, RBC 5.63, Hgb 17.5 H, Hct 49.7, MCV 88.3, MCH 31.1, MCHC 35.2, RDW Std Deviation 38.1, RDW Coeff of Arnol 11.9, Plt Count 257, MPV 10.0, Immature Gran % (Auto) 1.500 H, Neut % (Auto) 90.0 H, Lymph % (Auto) 3.8 L, [place] % (Auto) 3.3, Eos % (Auto) 1.2, Baso % (Auto) 0.2, Absolute Neuts (auto) 12.4 H, Absolute Lymphs (auto) 0.52 L, Nucleated RBC % 0 09/26/21 05:31: Sodium 131 L, Potassium 4.5, Chloride 101, Carbon Dioxide 22.0, Anion Gap 8, BUN 37 H, Creatinine 0.97, Estim Creat Clear Calc 64.69, Est GFR (MDRD) Af Amer 96, Est GFR (MDRD) Non-Af 79, BUN/Creatinine Ratio 38.1 H, Glucose 113 H, Calcium 8.6, Total Bilirubin 1.00, AST 51 H, ALT 35, Alkaline Phosphatase 111, Total Protein 7.2, Albumin 2.2 L, Globulin 5.0 H, Albumin/Globulin Ratio 0.4 L 09/26/21 05:31: PT 30.5 H, INR 3.0 09/26/21 07:03: POC Glucose 144 H Micro: Microbiology 09/17/21 20:50 Urine, Random Streptococcus pneumoniae Antigen (M - Final Radiography Diagnostic Testing: Radiology Impression KUB X-Ray 09/26/21 04:24 IMPRESSION: Moderate descending colonic stool. Aortic atherosclerosis and mild tortuosity. at 0510 Reported and signed by: Mack Lopez MD Electronically Signed: Mack Lopez MD at 5:09 EST Reading Location ID and State: On license of [facility] / [place] Tel , Service support , Physical Exam Const alert General Appearance: cooperative Nutritional Appearance: obese HEENT normocephalic and head/scalp atraumatic General Ear: hearing grossly impaired Eyes PERRL and EOMs intact bilaterally Neck supple General: trachea midline Chest inspection of chest normal Resp Effort and Inspection: tachypneic Auscultation: diminished lung sounds; Negative for rales, rhonchi or wheezes Cardio regular rate and regular rhythm GI normal to inspection, nondistended, normoactive bowel sounds Extremity no clubbing, cyanosis or edema Skin no rashes or lesions noted Neuro CN's II-XII intact bilaterally, moves all extremities and no focal motor deficits Psych cooperative and affect normal Charges/Coding Visit Charges Inpatient E&M: 25255 Subs Hosp L3
[2021-09-26] MEDS: Bisacodyl 5 MG Tablet PO (11:37)
--- NOTE | 2021-09-26 11:40 | NURSING ---
Pt instructed on how to achieve successful enema. Verbalized understanding. Soaps suds enema given at this time. Pt was not able to retain full 1500 ml of fluid despite constant reminder to hold in fluid. Minimal resistance met in the rectum, able to advance tube approx 12 cm. Pt w/ leaking during administration and then leaking with coughing after fluid drained from the bag. Soft brown stool intact to end of the tube when withdrawn. Will monitor.
--- NOTE | 2021-09-26 13:08 | RAD_ITS ---
STUDY: X-RAY CHEST REASON FOR EXAM: Male, 81 years old. CHEST PAIN Respiratory Failure TECHNIQUE: XR Chest 1 View COMPARISON: 09.11.21 FINDINGS: There are bilateral pleural effusions. There are bilateral infiltrates. There are multiple median sternotomy wires. Normal size heart. Normal mediastinum and eliseo. Normal visualized pulmonary arteries. There is atherosclerotic calcification of the aortic arch with tortuosity. There are diffuse degenerative changes of the visualized thoracic spine. There is degenerative osteoarthritis of the bilateral shoulders. There is no demonstrated abnormality of the visualized soft tissue structures of the upper abdomen. RAD/Chest 1 View (Portable) IMPRESSION: Bilateral pneumonia. Electronically Signed: Joo Dewey MD at 16:31 EST ,
--- NOTE | 2021-09-26 14:29 | PCM.PN.ID ---
Physical Exam Narrative Feeling about the same, still dyspnea, no sputum, no n/v/d. Const alert and no apparent distress General Appearance: cooperative Resp clear to auscultation bilaterally Auscultation: diminished lung sounds Cardio regular rate and regular rhythm GI soft to palpation, non-tender and non-distended Skin no rashes or lesions noted ID ID: Route of nutrition/ use of supplements: [] Nutritional Intake: [] IV Site: [] Cedeno Catheter: [] Assessment & Plan Assessment/Plan (1) Acute respiratory failure with hypoxia: (2) COVID-19: PLAN: Sx since 09/09. Vaccine x2, overdue for booster. Given dex but not remdesivir last admit. Refused remdesivir here. On airvo, completed dex, cont baricitinib. Isolate until 09/29/21, recommend booster in one month. INR therapeutic. No fever. Will follow
[2021-09-26 18:01] LABS: Bedside Glucose 144 mg/dL (70-110)
--- NOTE | 2021-09-26 19:05 | EX.PCM.CON.G ---
HPI Consult Data Date of Consult: 09/26/21 HPI Narrative HPI Narrative: HARRISON ESTRADA, 81-year-old who was recently hospitalized for mild Covid symptoms and was picked up by EMS for breathing problems. He was going to the hospital and has been getting treated for Covid pneumonia. He is being seen by infectious disease and hospitalist service and he is improving. He has a past medical history of CHF, CAD status post non-STEMI obesity atrial fibrillation on anticoagulation. I was consulted to see him because he had been having worsening constipation. He has a history of chronic constipation. He got and KUB that showed a lot of stool descending colon and rectum. He was given an enema last night however he was not able to hold it. Today he got stool softeners and enemas and he did have multiple bowel movements. [facility] Medical History (Updated 09/26/21 @ 19:[address] Fletcher Friend, DO) Anticoagulated on Coumadin Atherosclerosis of coronary artery of [place] heart without angina pectoris Chronic diastolic (congestive) heart failure Chronic renal insufficiency COVID-19 (09/11/21) Deafness in left ear Dyspnea Essential (primary) hypertension Fall Generalized weakness Head injury History of CVA (cerebrovascular accident) (2010) Hyperlipidemia Left leg cellulitis Non-rheumatic aortic stenosis Non-ST elevation (NSTEMI) myocardial infarction (10/18/18) Obesity Obstructive sleep apnea Paroxysmal atrial fibrillation Postoperative atrial fibrillation Type 2 diabetes mellitus Ulcer of left lower extremity with fat layer exposed Venous insufficiency of both lower extremities Venous insufficiency of left leg Wears hearing aid in both ears Home Medications multivitamin with minerals 1 tab PO DAILY 10/18/18 [History Last Taken 10/18/18 08:00] metformin 500 mg tablet 500 mg PO DAILY tab 11/08/18 [History Last Taken Unknown] simvastatin 40 mg tablet 40 mg PO QHS 11/08/18 [History Last Taken 01/14/19 22:00] metoprolol tartrate 50 mg PO BID #0 tab 09/14/21 [Rx Last Taken 01/15/19] pseudoephedrine-guaifenesin [Mucinex D] 2 tab PO BID #14 tab 09/14/21 [Rx Last Taken Unknown] bumetanide 1 mg PO DAILY 09/18/21 [History Last Taken Unknown] dexamethasone 6 mg PO DAILY 09/18/21 [History Last Taken Unknown] magnesium oxide 400 mg PO BID 09/18/21 [History Last Taken Unknown] silver sulfadiazine 1 applic TOPICAL DAILY 09/18/21 [History Last Taken Unknown] spironolactone 50 mg PO DAILY 09/18/21 [History Last Taken Unknown] tamsulosin 0.4 mg PO DAILY@1730 09/18/21 [History Last Taken Unknown] warfarin 5 mg PO DAILY 09/18/21 [History Last Taken Unknown] Allergy/AdvReac Type Severity Reaction Status Date / Time No Known Allergies Allergy Verified 03/15/21 09:54 Surgical History (Updated 09/26/21 @ 18:03 by Sharlene Calvin) H/O aortic valve replacement (10/29/18) 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 Jessy Hemphill, DO) Smoking Status: Never smoker alcohol intake: never substance use type: does not use ROS Review of Systems ROS Unobtainable: other Constitutional Constitutional: Denies fatigue, fever(s), poor appetite, weight gain or weight loss Cardiovascular Cardiovascular: Denies abdominal bloating, abdominal edema or abdominal pain Respiratory/Chest Respiratory/Chest: Denies change in mental status, change in phlegm color, chest congestion or chest tightness Gastrointestinal Gastrointestinal: Denies belching, bloating, change in bowel habits, change in stool character, chewing difficulty, coffee ground emesis or constipation Physical Exam Const alert General Appearance: cooperative Orientation / Consciousness: oriented to person HEENT hearing grossly normal bilaterally Head and Scalp: normal to inspection Face and Sinus: face symmetric Nose: external nose normal Mouth: oral and palatal mucosa normal Eyes conjunctivae normal General Eye: normal appearance of both eyes Neck full ROM General: normal visual inspection Lymph Lymphatic: no lymphadenopathy noted Chest inspection of chest normal and palpation of chest normal Chest: symmetrical chest wall rise Resp normal respiratory effort Effort and Inspection: able to speak in complete sentences Cardio regular rate GI non-distended Percussion: normal to percussion Rectal Exam: deferred Neuro Speech: speech normal Gait (Neuro): normal gait Medical Records Data Medical Nutrition Assessment Dietitian: Malnutrition Criteria Met Start: 09/22/21 09:27 Freq: Status: Active Protocol: Document 09/26/21 13:12 RMA (Rec: 09/26/21 13:13 RMA [id number]) Nutrition Malnutrition Evidence of Malnutrition Exists Yes Malnutrition (severe): Acute Illness/Injury Evidenced By Suboptimal Energy Intake ( Severe),Weight Loss (Severe) Intake Problem Inadequate Oral Intake Etiology r/t resp. failure, decreased appetite Signs/Symptoms as evidenced by estimated PO intake meeting <50% of estimated energy needs Status Active Problem Clinical Problem Acute Disease or Injury Related Malnutrition Etiology severe, acute malnutrition r/t inadequate energy intake d/t acute illness Signs/Symptoms as evidenced by unintentional wt loss of 8.9% from usual body wt; 5.1% wt loss since adm (09/17/21); estimated PO intake meeting <50% of estimated energy needs >5 days Status Active Problem Recommendation Dietitian Recommendations/Changes 2000 calorie/consistent carbohydrate diet. Will continue glucerna w/ meals--120ml TID and magic cup w/ dinner for additional calories/protein if consumed. Lab / Micro Data Result Diagrams: 09/26/21 05:31 09/26/21 05:31 Labs: Laboratory Results - last 24 hr 09/25/21 23:02: POC Glucose 143 H 09/26/21 05:31: WBC 13.7 H, RBC 5.63, Hgb 17.5 H, Hct 49.7, MCV 88.3, MCH 31.1, MCHC 35.2, RDW Std Deviation 38.1, RDW Coeff of Arn[place] 11.9, Plt Count 257, MPV 10.0, Immature Gran % (Auto) 1.500 H, Neut % (Auto) 90.0 H, Lymph % (Auto) 3.8 L, [place] % (Auto) 3.3, Eos % (Auto) 1.2, Baso % (Auto) 0.2, Absolute Neuts (auto) 12.4 H, Absolute Lymphs (auto) 0.52 L, Nucleated RBC % 0 09/26/21 05:31: Sodium 131 L, Potassium 4.5, Chloride 101, Carbon Dioxide 22.0, Anion Gap 8, BUN 37 H, Creatinine 0.97, Estim Creat Clear Calc 64.69, Est GFR (MDRD) Af Amer 96, Est GFR (MDRD) Non-Af 79, BUN/Creatinine Ratio 38.1 H, Glucose 113 H, Calcium 8.6, Total Bilirubin 1.00, AST 51 H, ALT 35, Alkaline Phosphatase 111, Total Protein 7.2, Albumin 2.2 L, Globulin 5.0 H, Albumin/Globulin Ratio 0.4 L 09/26/21 05:31: PT 30.5 H, INR 3.0 09/26/21 07:03: POC Glucose 144 H 09/26/21 17:45: POC Glucose 144 H Radiology Impression KUB X-Ray 09/26/21 04:24 IMPRESSION: Moderate descending colonic stool. Aortic atherosclerosis and mild tortuosity. at 0510 Reported and signed by: Mack Lopez MD Electronically Signed: Mack Lopez MD at 5:09 EST , Chest X-Ray 09/26/21 13:08 IMPRESSION: Bilateral pneumonia. Electronically Signed: Joo Dewey MD at 16:31 EST , Assessment & Plan Assessment/Plan (1) Constipation: PLAN: Acute exacerbation of a chronic condition. I would recommend that he take lactulose on a daily basis. Due to his inactivity and recent pneumonia that increases the risk of delete colonic transit. Also several of his medicines are constipating. I would repeat you be in the morning. Now that he has had relief from rectal decompression, I would add a glycerin suppository on a nightly basis along with 20 cc of lactulose once a day. Charges/Coding Visit Charges Inpatient E&M: 47210 Init Hosp L2
[2021-09-26] MEDS: Atorvastatin Calcium 20 MG Tablet PO (20:47)
[2021-09-26 21:06] LABS: Bedside Glucose 138 mg/dL (70-110)
[2021-09-27] VITALS (22 sets, daily range): BP systolic 104–121; BP diastolic 51–80; PULSE 71–88; RESP 12–32; TEMP 36.2–36.6; O2SAT 93–97
[2021-09-27 06:03] LABS: Absolute Lymphocyte Count 0.68 X10^3/uL (0.83-4.51); Absolute Neutrophil Count 12.4 X10^3/uL (2.0-7.7); Basophil# 0.03 X10^3/uL; Basophil% 0.2 % (0-1); Eosinophil# 0.17 X10^3/uL; Eosinophils% 1.2 % (0-5); Hematocrit 48.6 % (40-54); Hemoglobin 16.8 g/dL (13.0-16.5); Lymphocyte # 0.68 X10^3/ul (0.83-4.51); Lymphocyte % 4.8 % (19-41); Mean Corp Hgb Conc 34.6 g/dL (32-36); Mean Corpuscular Hgb 30.1 pg (27.0-32.0); Mean Corpuscular Volume 87.1 fL (80-94); Mean Platelet Vol. 9.5 fl (6.2-12.0); Monocyte# 0.59 X10^3/uL; Monocyte% 4.2 % (0-10); NRBC Flagged by Analyzer 0 % (0-5); Neutrophil # 12.38 X10^3/uL (2.7-7.7); Neutrophil % 87.5 % (47-70); Platelet Count 251 K/mm3 (150-450); RBC Distribution Width SD 38.4 fl (35.1-43.9); Red Blood Count 5.58 M/mm3 (4.6-6.2); White Blood Count 14.2 K/mm3 (4.4-11.0)
[2021-09-27 06:24] LABS: Prothrombin Time (Protime)PT. 30.2 SECONDS (11.7-14.9)
[2021-09-27 06:46] LABS: Bedside Glucose 106 mg/dL (70-110)
[2021-09-27 06:49] LABS: ALB/GLOB Ratio 0.4 RATIO (0.9-2.4); AST(SGOT) 50 U/L (15-37); Alanine Aminotransfer ALT/SGPT 42 U/L (16-61); Albumin, Serum 2.1 g/dL (3.2-5.0); Alkaline Phosphatase 102 U/L (45-117); Anion Gap 10 (5-15); BUN 40 mg/dL (7-18); Calcium,Total 8.8 mg/dL (8.5-10.1); Chloride 102 mmol/L (98-107); EST Glomerular Filtration Rate 76 mL/min (>60); Est Glom Filt Rate - Afr Amer 92 mL/min (>60); Estimated Creatinine Clearance 62.75 ml/min; Globulin 5.1 g/dL (2.2-4.2); Glucose 107 mg/dL (74-106); Potassium 4.4 mmol/L (3.5-5.1); Protein, Total 7.2 g/dL (6.4-8.2); Sodium Level 132 mmol/L (136-145)
[2021-09-27] MEDS: Ipratropium/Albuterol Sulfate 3 ML AMPUL.NEB INHALATION ×5 (07:43→23:08)
--- NOTE | 2021-09-27 08:12 | PN.CC_ITS ---
Assessment & Plan Assessment/Plan (1) COVID-19: PLAN: RECOMMENDATIONS: 1. Encourage BiPAP with sleep and wean FiO2 for saturations greater than 90%. 2. Okay to use Airvo during the day to facilitate nutrition. Attempt to wean to nasal cannula oxygen today. 3. Coumadin for DVT/A. fib prophylaxis. Continue to monitor INR daily. 4. Continue baricitinib to complete treatment course. 5. Continue diuretic therapy as tolerated by hemodynamics and renal function. 6. Encourage incentive spirometer use and mobilize patient as tolerated. IMPRESSIONS: 1. Acute hypoxemic respiratory failure secondary to COVID-19 pneumonia The patient presented to the hospital on September 17 with worsening dyspnea and hypoxemia, after having just been discharged from the hospital on September 14 with COVID-19 pneumonia. The patient is systemically anticoagulated on Coumadin at his baseline. The patient completed Decadron, but remains on baricitinib through 10/02/2021. Continue diuresis as tolerated by hemodynamics and renal function. Continue to wean oxygen as tolerated for saturations greater than 90%. 2. Chronic heart failure with preserved ejection fraction/arrhythmia Continue baseline diuretic regimen. 3. Coagulopathy The patient is systemically anticoagulated on Coumadin as an outpatient. Plan to continue the aforementioned and monitor INR daily. 4. Obesity/history of CVA/coronary artery disease/hypertension/hyperlipidemia/paroxysmal atrial fibrillation/diabetes mellitus Complicates care, management, recovery and prognosis. Continue sliding scale insulin coverage. This note was generated with [employer] dictation software. It may contain incorrect words, spelling, and punctuation that were not noted in checking the note before signing. Subjective Subjective The patient was seen and examined at the bedside this morning. Events from the last 24 hours have been reviewed. The patient is currently afebrile, hemodynamically stable and maintaining appropriate oxygen saturations on Airvo heated high flow with an FiO2 requirement of 50%. The patient is documented to be overall net -8.3 L for the hospitalization. The patient remains on scheduled diuretics, bronchodilators and baricitinib. INR is therapeutic at 3.0. Creatinine is stable. Objective Data Objective Data The patient's most recent lab work, culture data and imaging studies have all been personally reviewed. Rapid coronavirus antigen testing was positive on September 11. Vital Signs: Vital Signs Temp Pulse Resp BP Pulse Ox 97.7 F L 78 32 H 107/51 L 96 09/27/21 05:00 09/27/21 07:46 09/27/21 07:46 09/27/21 05:00 09/27/21 07:46 Oxygen Flow Rate (L/min) 50 Oxygen Delivery Method Airvo Weight: 113.2 kg Body Mass Index (BMI) 36.6 Intake & Output: Intake and Output for Last 24 Hours 09/25/21 09/26/21 09/27/21 23:59 23:59 23:59 Intake Total 660 / 660 Output Total 675 / 675 1000 / 1050 675 / 675 Balance -15 / -15 -1000 / -1050 -675 / -675 Medical Nutrition Assessment Dietitian: Malnutrition Criteria Met Start: 09/22/21 09:27 Freq: Status: Active Protocol: Document 09/26/21 13:12 RMA (Rec: 09/26/21 13:13 RMA [id number]) Nutrition Malnutrition Evidence of Malnutrition Exists Yes Malnutrition (severe): Acute Illness/Injury Evidenced By Suboptimal Energy Intake ( Severe),Weight Loss (Severe) Intake Problem Inadequate Oral Intake Etiology r/t resp. failure, decreased appetite Signs/Symptoms as evidenced by estimated PO intake meeting <50% of estimated energy needs Status Active Problem Clinical Problem Acute Disease or Injury Related Malnutrition Etiology severe, acute malnutrition r/t inadequate energy intake d/t acute illness Signs/Symptoms as evidenced by unintentional wt loss of 8.9% from usual body wt; 5.1% wt loss since adm (09/17/21); estimated PO intake meeting <50% of estimated energy needs >5 days Status Active Problem Recommendation Dietitian Recommendations/Changes 2000 calorie/consistent carbohydrate diet. Will continue glucerna w/ meals--120ml TID and magic cup w/ dinner for additional calories/protein if consumed. Lab / Micro Data Attestation: I reviewed the patient's lab results. Result Diagrams: 09/27/21 05:44 09/27/21 05:44 Labs: Laboratory Results - last 24 hr 09/26/21 17:45: POC Glucose 144 H 09/26/21 20:46: POC Glucose 138 H 09/27/21 05:44: PT 30.2 H, INR 3.0 09/27/21 05:44: WBC 14.2 H, RBC 5.58, Hgb 16.8 H, Hct 48.6, MCV 87.1, MCH 30.1, MCHC 34.6, RDW Std Deviation 38.4, RDW Coeff of Arnol 12.0, Plt Count 251, MPV 9.5, Immature Gran % (Auto) 2.100 H, Neut % (Auto) 87.5 H, Lymph % (Auto) 4.8 L, [place] % (Auto) 4.2, Eos % (Auto) 1.2, Baso % (Auto) 0.2, Absolute Neuts (auto) 12.4 H, Absolute Lymphs (auto) 0.68 L, Nucleated RBC % 0 09/27/21 05:44: Sodium 132 L, Potassium 4.4, Chloride 102, Carbon Dioxide 20.0 L , Anion Gap 10, BUN 40 H, Creatinine 1.00, Estim Creat Clear Calc 62.75, Est GFR (MDRD) Af Amer 92, Est GFR (MDRD) Non-Af 76, BUN/Creatinine Ratio 40.0 H, Glucose 107 H, Calcium 8.8, Total Bilirubin 0.90, AST 50 H, ALT 42, Alkaline Phosphatase 102, Total Protein 7.2, Albumin 2.1 L, Globulin 5.1 H, Albumin/Globulin Ratio 0.4 L 09/27/21 06:30: POC Glucose 106 Micro: Microbiology 09/17/21 20:50 Urine, Random Streptococcus pneumoniae Antigen (M - Final Radiography Diagnostic Testing: Radiology Impression Chest X-Ray 09/26/21 13:08 IMPRESSION: Bilateral pneumonia. Electronically Signed: Joo Dewey MD at 16:31 EST Reading Location ID and State: [facility] / [place] , Service support , Physical Exam Const alert General Appearance: cooperative Nutritional Appearance: obese HEENT normocephalic and head/scalp atraumatic General Ear: hearing grossly impaired Eyes PERRL and EOMs intact bilaterally Neck supple General: trachea midline Chest inspection of chest normal Resp Effort and Inspection: tachypneic Auscultation: diminished lung sounds; Negative for rales, rhonchi or wheezes Cardio regular rate and regular rhythm GI normal to inspection, nondistended, normoactive bowel sounds Extremity no clubbing, cyanosis or edema Skin no rashes or lesions noted Neuro CN's II-XII intact bilaterally, moves all extremities and no focal motor deficits Psych cooperative and affect normal Charges/Coding Visit Charges Inpatient E&M: 59102 Subs Hosp L3
[2021-09-27] MEDS: Tamsulosin HCl 0.4 MG Capsule PO (08:43)
[2021-09-27] MEDS: Senna/Docusate Sodium 1 Tablet 2 TABLET PO ×2 (08:43→21:12)
[2021-09-27] MEDS: Metoprolol Tartrate 50 MG Tablet PO ×2 (08:43→21:12)
[2021-09-27] MEDS: Multivitamins,Therapeutic Tablet 1 TABLET PO (08:43)
[2021-09-27] MEDS: Bumetanide 2 MG Tablet 1 MG PO (08:44)
[2021-09-27] MEDS: Magnesium Chloride 64 MG Delay Rel.Tablet 128 MG PO ×2 (08:44→21:12)
[2021-09-27] MEDS: Spironolactone 25 MG Tablet 50 MG PO (08:44)
[2021-09-27] MEDS: Silver Sulfadiazine 1% Crm 50 gm Bottle 1 APPLIC TOPICAL ×2 (08:45→21:12)
[2021-09-27] MEDS: Insulin Lispro 100 UNIT/ML INSULN.PEN SC (11:09)
--- NOTE | 2021-09-27 11:16 | CPS ---
Patient weaned off of AIRVO to 6L NC by ENAMEL SHADER STEW
[2021-09-27 11:35] LABS: Bedside Glucose 201 mg/dL (70-110)
--- NOTE | 2021-09-27 13:07 | PN.HOSP_ITS ---
Subjective Subjective Seen and examined. Patient continues to be on air Vo 50% FiO2. on high flow oxygen during daytime. Patient moved his bowels yesterday but he still feels not adequate bowel movement. Objective Data Objective Data Vital Signs: Vital Signs Temp Pulse Resp BP Pulse Ox 97.3 F L 75 18 108/74 93 09/27/21 11:11 09/27/21 11:11 09/27/21 11:11 09/27/21 11:11 09/27/21 11:15 Oxygen Flow Rate (L/min) 6 Oxygen Delivery Method High Flow Weight: 249 lb 9.012 oz Body Mass Index (BMI) 36.6 Intake & Output: Intake and Output for Last 24 Hours 09/25/21 09/26/21 09/27/21 23:59 23:59 23:59 Intake Total 660 / 660 Output Total 675 / 675 1000 / 1050 675 / 675 Balance -15 / -15 -1000 / -1050 -675 / -675 Medical Nutrition Assessment Dietitian: Malnutrition Criteria Met Start: 09/22/21 09:27 Freq: Status: Active Protocol: Document 09/26/21 13:12 RMA (Rec: 09/26/21 13:13 RMA [id number]) Nutrition Malnutrition Evidence of Malnutrition Exists Yes Malnutrition (severe): Acute Illness/Injury Evidenced By Suboptimal Energy Intake ( Severe),Weight Loss (Severe) Intake Problem Inadequate Oral Intake Etiology r/t resp. failure, decreased appetite Signs/Symptoms as evidenced by estimated PO intake meeting <50% of estimated energy needs Status Active Problem Clinical Problem Acute Disease or Injury Related Malnutrition Etiology severe, acute malnutrition r/t inadequate energy intake d/t acute illness Signs/Symptoms as evidenced by unintentional wt loss of 8.9% from usual body wt; 5.1% wt loss since adm (09/17/21); estimated PO intake meeting <50% of estimated energy needs >5 days Status Active Problem Recommendation Dietitian Recommendations/Changes 1999 calorie/consistent carbohydrate diet. Will continue glucerna w/ meals--120ml TID and magic cup w/ dinner for additional calories/protein if consumed. Lab / Micro Data Result Diagrams: 09/27/21 05:44 09/27/21 05:44 Labs: Laboratory Results - last 24 hr 09/26/21 17:45: POC Glucose 144 H 09/26/21 20:46: POC Glucose 138 H 09/27/21 05:44: PT 30.2 H, INR 3.0 09/27/21 05:44: WBC 14.2 H, RBC 5.58, Hgb 16.8 H, Hct 48.6, MCV 87.1, MCH 30.1, MCHC 34.6, RDW Std Deviation 38.4, RDW Coeff of Arnol 12.0, Plt Count 251, MPV 9.5, Immature Gran % (Auto) 2.100 H, Neut % (Auto) 87.5 H, Lymph % (Auto) 4.8 L, [place] % (Auto) 4.2, Eos % (Auto) 1.2, Baso % (Auto) 0.2, Absolute Neuts (auto) 12.4 H, Absolute Lymphs (auto) 0.68 L, Nucleated RBC % 0 09/27/21 05:44: Sodium 132 L, Potassium 4.4, Chloride 102, Carbon Dioxide 20.0 L , Anion Gap 10, BUN 40 H, Creatinine 1.00, Estim Creat Clear Calc 62.75, Est GFR (MDRD) Af Amer 92, Est GFR (MDRD) Non-Af 76, BUN/Creatinine Ratio 40.0 H, Glucose 107 H, Calcium 8.8, Total Bilirubin 0.90, AST 50 H, ALT 42, Alkaline Phosphatase 102, Total Protein 7.2, Albumin 2.1 L, Globulin 5.1 H, Albumin/Globulin Ratio 0.4 L 09/27/21 06:30: POC Glucose 106 09/27/21 11:06: POC Glucose 201 H Micro: Microbiology 09/17/21 20:50 Urine, Random Streptococcus pneumoniae Antigen (M - Final Radiography Diagnostic Testing: Radiology Impression Chest X-Ray 09/26/21 13:08 IMPRESSION: Bilateral pneumonia. Electronically Signed: Joo Dewey MD at 16:31 EST Reading Location ID and State: [facility] / [place] , Service support , Physical Exam Narrative General: Alert, Oriented x3, Cooperative HEENT: Atraumatic, PERRLA, EOMI, Normocephalic Oral: No Gingival or Mucosal Lesions/ Ulcerations Neck: Supple, No JVD, Negative Carotid Bruits Lungs: Air entry diminished in bilateral lung bases. No crepitation/rhonchi. On airVo alternating with high flow oxygen Cardiovascular: Sinus rhythm, PVCs, normal S1, Normal S2, No murmurs Abdomen: Bowel Sounds Present, Soft, Non Tender, Non-Distended : No renal angle tenderness. No suprapubic tenderness. Extremities: No edema, Capillary Refill Less than 3 Seconds Skin: No rashes, No breakdown Musculoskeletal: Mild weakness of all extremity 4/5. No Tenderness to Palpation of Joints or Extremities Neurological: Cranial nerves II-XII grossly intact, DTR 2+/4 and Symmetrical, Neuro grossly intact Psych/Mental Status: Flat affect Assessment & Plan Assessment/Plan (1) Acute respiratory failure with hypoxia: (2) COVID-19: PLAN: 1. acute hypoxic respiratory failure due to bilateral COVID-19 pneumonia on Airvo. Bacterial work up negative 09/27 transition to high flow oxygen. 2. COVID 19 pneumonia vaccinated. not boosted completed dexamethasone, but declined remdesivir seen by ID, on baricitinib quarantine through 09/29 3. Chronic HFpEF with mechanical aortic valve: Echo from October 2018 shows EF 75% with hyperdynamic LV systolic function. Aortic valve prosthetic valve [place], mean gradient 5 mmHg and aortic VT is 25.9 cm Bumex and spironolactone. 4. pAfib: On warfarin. INR 3.0. Hold warfarin today and resume tomorrow at warfarin 2 mg daily. Monitor INR daily. 09/27: INR remain 3.0. Patient in sinus rhythm. Continue to hold Coumadin 5. VTE prophylaxis: anticoagulated. CODE STATUS, full code. He would want to be intubated if the alternative was . prognosis: guarded. Charges/Coding Visit Charges Inpatient E&M: 37987 Subs Hosp L2
[2021-09-27] MEDS: Jantoven 2 MG Tablet PO (16:08)
[2021-09-27 16:21] LABS: Bedside Glucose 144 mg/dL (70-110)
[2021-09-27] MEDS: Bisacodyl 5 MG Tablet PO (17:28)
[2021-09-27] MEDS: Atorvastatin Calcium 20 MG Tablet PO (21:12)
[2021-09-27] MEDS: Psyllium 1 PACKET PO (21:12)
[2021-09-27] MEDS: 0.9% Saline Lock 10 ML Syringe IV (21:13)
[2021-09-27 21:41] LABS: Bedside Glucose 134 mg/dL (70-110)
[2021-09-28] VITALS (21 sets, daily range): BP systolic 94–134; BP diastolic 67–120; PULSE 66–91; RESP 12–28; TEMP 35.8–36.8; O2SAT 94–98
[2021-09-28 06:17] LABS: Absolute Lymphocyte Count 0.84 X10^3/uL (0.83-4.51); Absolute Neutrophil Count 10.2 X10^3/uL (2.0-7.7); Basophil# 0.04 X10^3/uL; Basophil% 0.3 % (0-1); Eosinophil# 0.24 X10^3/uL; Eosinophils% 1.9 % (0-5); Hematocrit 47.7 % (40-54); Hemoglobin 16.9 g/dL (13.0-16.5); Lymphocyte # 0.84 X10^3/ul (0.83-4.51); Lymphocyte % 6.8 % (19-41); Mean Corp Hgb Conc 35.4 g/dL (32-36); Mean Corpuscular Hgb 31.2 pg (27.0-32.0); Mean Platelet Vol. 9.7 fl (6.2-12.0); Monocyte# 0.71 X10^3/uL; Monocyte% 5.8 % (0-10); NRBC Flagged by Analyzer 0 % (0-5); Neutrophil # 10.15 X10^3/uL (2.7-7.7); Neutrophil % 82.4 % (47-70); Platelet Count 238 K/mm3 (150-450); RBC Distribution Width CV 12.1 % (11.6-14.6); RBC Distribution Width SD 38.5 fl (35.1-43.9); Red Blood Count 5.42 M/mm3 (4.6-6.2); White Blood Count 12.3 K/mm3 (4.4-11.0)
[2021-09-28 06:40] LABS: Bedside Glucose 108 mg/dL (70-110)
[2021-09-28 06:45] LABS: ALB/GLOB Ratio 0.4 RATIO (0.9-2.4); AST(SGOT) 55 U/L (15-37); Alanine Aminotransfer ALT/SGPT 52 U/L (16-61); Albumin, Serum 2.1 g/dL (3.2-5.0); Alkaline Phosphatase 103 U/L (45-117); Anion Gap 7 (5-15); BUN 37 mg/dL (7-18); BUN/Creat Ratio 38.8 RATIO (10-20); Calcium,Total 8.9 mg/dL (8.5-10.1); Chloride 102 mmol/L (98-107); Creatinine, Serum 0.95 mg/dL (0.70-1.30); EST Glomerular Filtration Rate 81 mL/min (>60); Est Glom Filt Rate - Afr Amer 98 mL/min (>60); Estimated Creatinine Clearance 66.05 ml/min; Globulin 4.9 g/dL (2.2-4.2); Glucose 99 mg/dL (74-106); Potassium 4.3 mmol/L (3.5-5.1); Sodium Level 133 mmol/L (136-145)
[2021-09-28] MEDS: Ipratropium/Albuterol Sulfate 3 ML AMPUL.NEB INHALATION ×4 (07:14→22:06)
[2021-09-28] MEDS: Spironolactone 25 MG Tablet 50 MG PO (08:10)
[2021-09-28] MEDS: Senna/Docusate Sodium 1 Tablet 2 TABLET PO ×2 (08:10→21:31)
[2021-09-28] MEDS: Metoprolol Tartrate 50 MG Tablet PO ×2 (08:10→21:31)
[2021-09-28] MEDS: Multivitamins,Therapeutic Tablet 1 TABLET PO (08:10)
[2021-09-28] MEDS: Magnesium Chloride 64 MG Delay Rel.Tablet 128 MG PO ×2 (08:10→21:31)
[2021-09-28] MEDS: Psyllium 1 PACKET PO ×2 (08:11→21:32)
[2021-09-28] MEDS: Bisacodyl 5 MG Tablet PO (08:11)
[2021-09-28] MEDS: Bumetanide 2 MG Tablet 1 MG PO (08:11)
[2021-09-28] MEDS: Tamsulosin HCl 0.4 MG Capsule PO (08:11)
[2021-09-28] MEDS: Silver Sulfadiazine 1% Crm 50 gm Bottle 1 APPLIC TOPICAL ×2 (08:12→21:32)
--- NOTE | 2021-09-28 08:14 | PN.CC_ITS ---
Assessment & Plan Assessment/Plan (1) COVID-19: PLAN: RECOMMENDATIONS: 1. Continue to wean supplemental oxygen to maintain saturations at or above 90%. 2. Encourage BiPAP utilization with naps and nightly. 3. Coumadin for DVT/A. fib prophylaxis. Continue to monitor INR daily. 4. Continue baricitinib to complete treatment course. 5. Continue diuretic therapy as tolerated by hemodynamics and renal function. 6. Encourage incentive spirometer use and mobilize patient as tolerated. 7. In light of the patient's improving oxygenation status, will sign off. Please call with any additional questions. IMPRESSIONS: 1. Acute hypoxemic respiratory failure secondary to COVID-19 pneumonia The patient presented to the hospital on September 17 with worsening dyspnea and hypoxemia, after having just been discharged from the hospital on September 14 with COVID-19 pneumonia. The patient is systemically anticoagulated on Coumadin at his baseline. The patient completed Decadron, but remains on baricitinib through 10/02/2021. Continue diuresis as tolerated by hemodynamics and renal function. Continue to wean oxygen as tolerated for saturations greater than 90%. Encourage incentive spirometer use and mobilize patient as tolerated. 2. Chronic heart failure with preserved ejection fraction/arrhythmia Continue baseline diuretic regimen. 3. Coagulopathy The patient is systemically anticoagulated on Coumadin as an outpatient. Plan to continue the aforementioned and monitor INR daily. 4. Obesity/history of CVA/coronary artery disease/hypertension/hyperlipide altagracia/paroxysmal atrial fibrillation/diabetes mellitus Complicates care, management, recovery and prognosis. Continue sliding scale insulin coverage. This note was generated with [employer] dictation software. It may contain incorrect words, spelling, and punctuation that were not noted in checking the note before signing. Subjective Subjective The patient was seen and examined at the bedside this morning. Events from the last 24 hours have been reviewed. The patient is currently afebrile, hemodynamically stable and maintaining appropriate oxygen saturations on 5 L/min via nasal cannula. The patient was tolerant of BiPAP overnight. He is currently documented to be overall net -7.9 L for the hospitalization. He remains on scheduled diuretics, bronchodilators and baricitinib. INR was again noted to be 3.0 this morning. Creatinine is stable. Objective Data Objective Data The patient's most recent lab work, culture data and imaging studies have all been personally reviewed. Rapid coronavirus antigen testing was positive on September 11. Vital Signs: Vital Signs Temp Pulse Resp BP Pulse Ox 97.1 F L 77 22 H 123/71 H 96 09/28/21 08:07 09/28/21 08:07 09/28/21 08:07 09/28/21 08:07 09/28/21 08:07 Oxygen Flow Rate (L/min) 5 Oxygen Delivery Method High Flow Weight: 114.5 kg Body Mass Index (BMI) 36.6 Intake & Output: Intake and Output for Last 24 Hours 09/26/21 09/27/21 09/28/21 23:59 23:59 23:59 Intake Total 1100 / 1220 120 / 120 Output Total 1000 / 1050 1475 / 1475 Balance -1000 / -1050 -375 / -255 120 / 120 Medical Nutrition Assessment Dietitian: Malnutrition Criteria Met Start: 09/22/21 09:27 Freq: Status: Active Protocol: Document 09/26/21 13:12 RMA (Rec: 09/26/21 13:13 RMA [id number]) Nutrition Malnutrition Evidence of Malnutrition Exists Yes Malnutrition (severe): Acute Illness/Injury Evidenced By Suboptimal Energy Intake ( Severe),Weight Loss (Severe) Intake Problem Inadequate Oral Intake Etiology r/t resp. failure, decreased appetite Signs/Symptoms as evidenced by estimated PO intake meeting <50% of estimated energy needs Status Active Problem Clinical Problem Acute Disease or Injury Related Malnutrition Etiology severe, acute malnutrition r/t inadequate energy intake d/t acute illness Signs/Symptoms as evidenced by unintentional wt loss of 8.9% from usual body wt; 5.1% wt loss since adm (09/17/21); estimated PO intake meeting <50% of estimated energy needs >5 days Status Active Problem Recommendation Dietitian Recommendations/Changes 1999 calorie/consistent carbohydrate diet. Will continue glucerna w/ meals--120ml TID and magic cup w/ dinner for additional calories/protein if consumed. Lab / Micro Data Attestation: I reviewed the patient's lab results. Result Diagrams: 09/28/21 05:41 09/28/21 05:41 Labs: Laboratory Results - last 24 hr 09/27/21 11:06: POC Glucose 201 H 09/27/21 16:02: POC Glucose 144 H 09/27/21 21:08: POC Glucose 134 H 09/28/21 05:41: PT 30.0 H, INR 3.0 09/28/21 05:41: WBC 12.3 H, RBC 5.42, Hgb 16.9 H, Hct 47.7, MCV 88.0, MCH 31.2, MCHC 35.4, RDW Std Deviation 38.5, RDW Coeff of Arnol 12.1, Plt Count 238, MPV 9.7, Immature Gran % (Auto) 2.800 H, Neut % (Auto) 82.4 H, Lymph % (Auto) 6.8 L, [place] % (Auto) 5.8, Eos % (Auto) 1.9, Baso % (Auto) 0.3, Absolute Neuts (auto) 10.2 H, Absolute Lymphs (auto) 0.84, Nucleated RBC % 0 09/28/21 05:41: Sodium 133 L, Potassium 4.3, Chloride 102, Carbon Dioxide 24.0, Anion Gap 7, BUN 37 H, Creatinine 0.95, Estim Creat Clear Calc 66.05, Est GFR (MDRD) Af Amer 98, Est GFR (MDRD) Non-Af 81, BUN/Creatinine Ratio 38.8 H, Glucose 99, Calcium 8.9, Total Bilirubin 0.70, AST 55 H, ALT 52, Alkaline Phosphatase 103, Total Protein 7.0, Albumin 2.1 L, Globulin 4.9 H, Albumin/Globulin Ratio 0.4 L 09/28/21 06:34: POC Glucose 108 Micro: Microbiology 09/17/21 20:50 Urine, Random Streptococcus pneumoniae Antigen (M - Final Physical Exam Const alert General Appearance: cooperative Nutritional Appearance: obese HEENT normocephalic and head/scalp atraumatic General Ear: hearing grossly impaired Eyes PERRL and EOMs intact bilaterally Neck supple General: trachea midline Chest inspection of chest normal Resp Auscultation: diminished lung sounds; Negative for rales, rhonchi or wheezes Cardio regular rate and regular rhythm GI normal to inspection, nondistended, normoactive bowel sounds Extremity no clubbing, cyanosis or edema Skin no rashes or lesions noted Neuro CN's II-XII intact bilaterally, moves all extremities and no focal motor deficits Psych cooperative and affect normal Charges/Coding Visit Charges Inpatient E&M: 41132 Subs Hosp L2
[2021-09-28 11:45] LABS: Bedside Glucose 149 mg/dL (70-110)
--- NOTE | 2021-09-28 13:45 | CASEMGMT ---
Patient is doing better. WILLIAN called patient's to verify her care home choices have not changed since WILLIAN's previous conversation. She said [address] [facility] [address] [facility] [address] then [facility]. WILLIAN let her know WILLIAN will work on making referrals. WILLIAN faxed referral to [facility]. Helen Booth CIGAR HEAD HOLERMaria De Jesus VALERIO
--- NOTE | 2021-09-28 15:03 | PN.HOSP_ITS ---
Subjective Subjective Seen and examined Follow-up for acute hypoxic respiratory failure. Patient on 5 L of oxygen through nasal cannula and BiPAP at night. Patient reports improvement in shortness of breath. Objective Data Objective Data Vital Signs: Vital Signs Temp Pulse Resp BP Pulse Ox 97.5 F L 76 20 H 94/76 95 09/28/21 13:40 09/28/21 14:20 09/28/21 13:40 09/28/21 13:40 09/28/21 13:40 Oxygen Flow Rate (L/min) 5 Oxygen Delivery Method Nasal Cannula Weight: 252 lb 6.868 oz Body Mass Index (BMI) 36.6 Intake & Output: Intake and Output for Last 24 Hours 09/26/21 09/27/21 09/28/21 23:59 23:59 23:59 Intake Total 1100 / 1220 620 / 620 Output Total 1000 / 1050 1475 / 1475 800 / 800 Balance -1000 / -1050 -375 / -255 -180 / -180 Medical Nutrition Assessment Dietitian: Malnutrition Criteria Met Start: 09/22/21 09:27 Freq: Status: Active Protocol: Document 09/26/21 13:12 RMA (Rec: 09/26/21 13:13 RMA [id number]) Nutrition Malnutrition Evidence of Malnutrition Exists Yes Malnutrition (severe): Acute Illness/Injury Evidenced By Suboptimal Energy Intake ( Severe),Weight Loss (Severe) Intake Problem Inadequate Oral Intake Etiology r/t resp. failure, decreased appetite Signs/Symptoms as evidenced by estimated PO intake meeting <50% of estimated energy needs Status Active Problem Clinical Problem Acute Disease or Injury Related Malnutrition Etiology severe, acute malnutrition r/t inadequate energy intake d/t acute illness Signs/Symptoms as evidenced by unintentional wt loss of 8.9% from usual body wt; 5.1% wt loss since adm (09/17/21); estimated PO intake meeting <50% of estimated energy needs >5 days Status Active Problem Recommendation Dietitian Recommendations/Changes 1999 calorie/consistent carbohydrate diet. Will continue glucerna w/ meals--120ml TID and magic cup w/ dinner for additional calories/protein if consumed. Lab / Micro Data Result Diagrams: 09/28/21 05:41 09/28/21 05:41 Labs: Laboratory Results - last 24 hr 09/27/21 16:02: POC Glucose 144 H 09/27/21 21:08: POC Glucose 134 H 09/28/21 05:41: PT 30.0 H, INR 3.0 09/28/21 05:41: WBC 12.3 H, RBC 5.42, Hgb 16.9 H, Hct 47.7, MCV 88.0, MCH 31.2, MCHC 35.4, RDW Std Deviation 38.5, RDW Coeff of Arnol 12.1, Plt Count 238, MPV 9.7, Immature Gran % (Auto) 2.800 H, Neut % (Auto) 82.4 H, Lymph % (Auto) 6.8 L, [place] % (Auto) 5.8, Eos % (Auto) 1.9, Baso % (Auto) 0.3, Absolute Neuts (auto) 10.2 H, Absolute Lymphs (auto) 0.84, Nucleated RBC % 0 09/28/21 05:41: Sodium 133 L, Potassium 4.3, Chloride 102, Carbon Dioxide 24.0, Anion Gap 7, BUN 37 H, Creatinine 0.95, Estim Creat Clear Calc 66.05, Est GFR (MDRD) Af Amer 98, Est GFR (MDRD) Non-Af 81, BUN/Creatinine Ratio 38.8 H, Glucose 99, Calcium 8.9, Total Bilirubin 0.70, AST 55 H, ALT 52, Alkaline Phosphatase 103, Total Protein 7.0, Albumin 2.1 L, Globulin 4.9 H, Albumin/Globulin Ratio 0.4 L 09/28/21 06:34: POC Glucose 108 09/28/21 11:40: POC Glucose 149 H Micro: Microbiology 09/17/21 20:50 Urine, Random Streptococcus pneumoniae Antigen (M - Final Physical Exam Narrative Patient moved bowel. General: Alert, Oriented x3, Cooperative HEENT: Atraumatic, PERRLA, EOMI, Normocephalic Oral: No Gingival or Mucosal Lesions/ Ulcerations Neck: Supple, No JVD, Negative Carotid Bruits Lungs: Air entry diminished in bilateral lung bases. No crepitation/rhonchi. Severe hypoxia. NIPPV Cardiovascular: Sinus rhythm, PVCs, normal S1, Normal S2, No murmurs Abdomen: Bowel Sounds Present, Soft, Non Tender, Non-Distended : No renal angle tenderness. No suprapubic tenderness. Extremities: No edema, Capillary Refill Less than 3 Seconds Skin: No rashes, No breakdown Musculoskeletal: Mild weakness of all extremity 4/5. No Tenderness to Palpation of Joints or Extremities Neurological: Cranial nerves II-XII grossly intact, DTR 2+/4 and Symmetrical, Neuro grossly intact Psych/Mental Status: Flat affect Assessment & Plan Assessment/Plan (1) Acute respiratory failure with hypoxia: (2) COVID-19: PLAN: 1. acute hypoxic respiratory failure due to bilateral COVID-19 pneumonia on Airvo. Bacterial work up negative 09/27 transition to high flow oxygen. 09/28: Patient on BiPAP last night. Currently on high flow oxygen. Patient rep orts slight improvement in shortness of breath. 2. COVID 19 pneumonia vaccinated. not boosted completed dexamethasone, but declined remdesivir seen by ID, on baricitinib through 10/02 quarantine through 09/29 3. Chronic HFpEF with mechanical aortic valve: Echo from October 2018 shows EF 75% with hyperdynamic LV systolic function. Aortic valve prosthetic valve [place], mean gradient 5 mmHg and aortic VT is 25.9 cm Bumex and spironolactone. K4.3. 4. pAfib: On warfarin. INR 3.0. 09/27: INR remain 3.0. Patient in sinus rhythm. Continue to hold Coumadin 09/28: INR 3.0. Low-dose warfarin 1 mg started. Monitor INR daily 5. VTE prophylaxis: anticoagulated. CODE STATUS, full code. He would want to be intubated if the alternative was . prognosis: guarded. Active Medications Acetaminophen (Acetaminophen 325 Mg Tablet) 650 mg PO Q6H PRN PRN PRN Reason: Pain 1-10 or Fever Last Admin: 09/25/21 09:32 Dose: 650 mg Documented by: Albuterol/Ipratropium (Ipratropium/Albuterol Sulfate 3 Ml Ampul.Neb) 3 ml INHALATION Q2H PRN PRN PRN Reason: SOB/WHEEZING Last Admin: 09/18/21 07:32 Dose: 3 ml Documented by: Albuterol/Ipratropium (Ipratropium/Albuterol Sulfate 3 Ml Ampul.Neb) 3 ml INHALATION Q4HWA.RT SANJIV Last Admin: 09/28/21 11:08 Dose: 3 ml Documented by: Atorvastatin Calcium (Atorvastatin Calcium 20 Mg Tablet) 20 mg PO QHS SANJIV Last Admin: 09/27/21 21:12 Dose: 20 mg Documented by: Baricitinib (Baricitinib 2 Mg Tablet) 4 mg PO DAILY [facility] Stop: 10/02/21 10:01 Last Admin: 09/28/21 08:11 Dose: 4 mg Documented by: Bumetanide (Bumetanide 2 Mg Tablet) 1 mg PO DAILY [facility] Last Admin: 09/28/21 08:11 Dose: 1 mg Documented by: Sodium Chloride () 250 mls @ 15 mls/hr IV .[id number] PRN PRN Reason: Saline Flush Sodium Chloride () 250 mls @ 15 mls/hr IV .[id number] PRN PRN Reason: Additional IVPB Infusion Insulin Human Lispro (Insulin Lispro 100 Unit/Ml Insuln.Pen) 0 unit SC ACHS [facility]; Protocol Last Admin: 09/28/21 11:40 Dose: Not Given Documented by: Magnesium Chloride (Magnesium Chloride 64 Mg Delay Rel.Tablet) 128 mg PO BID [facility] Last Admin: 09/28/21 08:10 Dose: 128 mg Documented by: Melatonin (Melatonin 3 Mg Tablet) 3 mg PO QHS PRN PRN PRN Reason: INSOMNIA Last Admin: 09/20/21 22:15 Dose: 3 mg Documented by: Metoprolol Tartrate (Metoprolol Tartrate 50 Mg Tablet) 50 mg PO BID [facility] Last Admin: 09/28/21 08:10 Dose: 50 mg Documented by: Multivitamins (Multivitamins,Therapeutic Tablet) 1 tablet PO DAILY [facility] Last Admin: 09/28/21 08:10 Dose: 1 tablet Documented by: Ondansetron HCl (Ondansetron 4 Mg/2 Ml Vial) 4 mg IV Q8H PRN PRN PRN Reason: NAUSEA/VOMITING Psyllium Hydrophilic Mucilloid (Psyllium 1 Packet) 1 packet PO BID [facility] Last Admin: 09/28/21 08:11 Dose: 1 packet Documented by: Senna/Docusate Sodium (Senna/Docusate Sodium 1 Tablet) 2 tablet PO BID [facility] Last Admin: 09/28/21 08:10 Dose: 2 tablet Documented by: Silver Sulfadiazine (Silver Sulfadiazine 1% Crm 50 Gm Bottle) 1 applic TOPICAL BID [facility] Last Admin: 09/28/21 08:12 Dose: 1 applic Documented by: Sodium Chloride (0.9% Saline Lock 10 Ml Syringe) 10 - 40 ml IV UD PRN PRN Reason: SALINE FLUSH Last Admin: 09/27/21 21:13 Dose: 10 ml Documented by: Sodium Chloride (Sodium Chloride 0.65% 1 [place].Btl) 2 spray NASAL TID PRN PRN PRN Reason: NASAL DRYNESS Last Admin: 09/25/21 01:14 Dose: 2 spray Documented by: Spironolactone (Spironolactone 25 Mg Tablet) 50 mg PO DAILY [facility] Last Admin: 09/28/21 08:10 Dose: 50 mg Documented by: Tamsulosin HCl (Tamsulosin Hcl 0.4 Mg Capsule) 0.4 mg PO DAILY [facility] Last Admin: 09/28/21 08:11 Dose: 0.4 mg Documented by: Warfarin Sodium (Jantoven 2 Mg Tablet) 2 mg PO DINNER [facility] Charges/Coding Visit Charges Inpatient E&M: 32348 Subs Hosp L2
[2021-09-28] MEDS: Insulin Lispro 100 UNIT/ML INSULN.PEN SC (16:16)
[2021-09-28 16:26] LABS: Bedside Glucose 174 mg/dL (70-110)
[2021-09-28] MEDS: Atorvastatin Calcium 20 MG Tablet PO (21:32)
[2021-09-28 21:51] LABS: Bedside Glucose 127 mg/dL (70-110)
[2021-09-29] VITALS (13 sets, daily range): BP systolic 105–118; BP diastolic 68–78; PULSE 68–84; RESP 20–27; TEMP 36.5–36.6; O2SAT 92–97
[2021-09-29 06:13] LABS: Absolute Lymphocyte Count 0.82 X10^3/uL (0.83-4.51); Absolute Neutrophil Count 8.8 X10^3/uL (2.0-7.7); Basophil# 0.03 X10^3/uL; Basophil% 0.3 % (0-1); Eosinophil# 0.29 X10^3/uL; Eosinophils% 2.7 % (0-5); Hematocrit 49.5 % (40-54); Hemoglobin 16.9 g/dL (13.0-16.5); Lymphocyte # 0.82 X10^3/ul (0.83-4.51); Lymphocyte % 7.5 % (19-41); Mean Corp Hgb Conc 34.1 g/dL (32-36); Mean Corpuscular Volume 87.8 fL (80-94); Mean Platelet Vol. 9.8 fl (6.2-12.0); Monocyte# 0.77 X10^3/uL; NRBC Flagged by Analyzer 0 % (0-5); Neutrophil # 8.77 X10^3/uL (2.7-7.7); Neutrophil % 80.1 % (47-70); Platelet Count 253 K/mm3 (150-450); RBC Distribution Width CV 11.9 % (11.6-14.6); Red Blood Count 5.64 M/mm3 (4.6-6.2); White Blood Count 10.9 K/mm3 (4.4-11.0)
[2021-09-29 06:23] LABS: International Normalized Ratio 2.3; Prothrombin Time (Protime)PT. 24.1 SECONDS (11.7-14.9)
[2021-09-29 06:35] LABS: Bedside Glucose 125 mg/dL (70-110)
[2021-09-29 06:39] LABS: ALB/GLOB Ratio 0.4 RATIO (0.9-2.4); AST(SGOT) 66 U/L (15-37); Alanine Aminotransfer ALT/SGPT 67 U/L (16-61); Albumin, Serum 2.2 g/dL (3.2-5.0); Alkaline Phosphatase 108 U/L (45-117); Anion Gap 8 (5-15); BUN 34 mg/dL (7-18); BUN/Creat Ratio 37.6 RATIO (10-20); Calcium,Total 8.7 mg/dL (8.5-10.1); Chloride 101 mmol/L (98-107); EST Glomerular Filtration Rate 86 mL/min (>60); Est Glom Filt Rate - Afr Amer 104 mL/min (>60); Estimated Creatinine Clearance 69.72 ml/min; Glucose 106 mg/dL (74-106); Potassium 4.3 mmol/L (3.5-5.1); Protein, Total 7.2 g/dL (6.4-8.2); Sodium Level 133 mmol/L (136-145)
[2021-09-29] MEDS: Ipratropium/Albuterol Sulfate 3 ML AMPUL.NEB INHALATION ×3 (06:58→14:43)
--- NOTE | 2021-09-29 07:47 | PN.HOSP_ITS ---
Objective Data Objective Data Vital Signs: Vital Signs Temp Pulse Resp BP Pulse Ox 97.9 F 69 21 H 110/78 94 09/29/21 03:58 09/29/21 07:00 09/29/21 06:59 09/29/21 03:58 09/29/21 06:59 Oxygen Flow Rate (L/min) 4 Oxygen Delivery Method Nasal Cannula Weight: 251 lb 8.759 oz Body Mass Index (BMI) 36.6 Intake & Output: Intake and Output for Last 24 Hours 09/27/21 09/28/21 09/29/21 23:59 23:59 23:59 Intake Total 1100 / 1220 1220 / 1700 480 / 480 Output Total 1475 / 1475 1100 / 1400 500 / 500 Balance -375 / -255 120 / 300 -20 / -20 Medical Nutrition Assessment Dietitian: Malnutrition Criteria Met Start: 09/22/21 09:27 Freq: Status: Active Protocol: Document 09/26/21 13:12 RMA (Rec: 09/26/21 13:13 RMA [id number]) Nutrition Malnutrition Evidence of Malnutrition Exists Yes Malnutrition (severe): Acute Illness/Injury Evidenced By Suboptimal Energy Intake ( Severe),Weight Loss (Severe) Intake Problem Inadequate Oral Intake Etiology r/t resp. failure, decreased appetite Signs/Symptoms as evidenced by estimated PO intake meeting <50% of estimated energy needs Status Active Problem Clinical Problem Acute Disease or Injury Related Malnutrition Etiology severe, acute malnutrition r/t inadequate energy intake d/t acute illness Signs/Symptoms as evidenced by unintentional wt loss of 8.9% from usual body wt; 5.1% wt loss since adm (09/17/21); estimated PO intake meeting <50% of estimated energy needs >5 days Status Active Problem Recommendation Dietitian Recommendations/Changes 1999 calorie/consistent carbohydrate diet. Will continue glucerna w/ meals--120ml TID and magic cup w/ dinner for additional calories/protein if consumed. Lab / Micro Data Result Diagrams: 09/29/21 05:35 09/29/21 05:35 Labs: Laboratory Results - last 24 hr 09/28/21 11:40: POC Glucose 149 H 09/28/21 16:13: POC Glucose 174 H 09/28/21 21:27: POC Glucose 127 H 09/29/21 05:35: WBC 10.9, RBC 5.64, Hgb 16.9 H, Hct 49.5, MCV 87.8, MCH 30.0, MCHC 34.1, RDW Std Deviation 38.0, RDW Coeff of Arnol 11.9, Plt Count 253, MPV 9.8, Immature Gran % (Auto) 2.400 H, Neut % (Auto) 80.1 H, Lymph % (Auto) 7.5 L, [place] % (Auto) 7.0, Eos % (Auto) 2.7, Baso % (Auto) 0.3, Absolute Neuts (auto) 8.8 H, Absolute Lymphs (auto) 0.82 L, Nucleated RBC % 0 09/29/21 05:35: Sodium 133 L, Potassium 4.3, Chloride 101, Carbon Dioxide 24.0, Anion Gap 8, BUN 34 H, Creatinine 0.90, Estim Creat Clear Calc 69.72, Est GFR (MDRD) Af Amer 104, Est GFR (MDRD) Non-Af 86, BUN/Creatinine Ratio 37.6 H, Glucose 106, Calcium 8.7, Total Bilirubin 0.70, AST 66 H, ALT 67 H, Alkaline Phosphatase 108, Total Protein 7.2, Albumin 2.2 L, Globulin 5.0 H, Albumin/Globulin Ratio 0.4 L 09/29/21 05:35: PT 24.1 H, INR 2.3 09/29/21 06:30: POC Glucose 125 H Micro: Microbiology 09/17/21 20:50 Urine, Random Streptococcus pneumoniae Antigen (M - Final Physical Exam Narrative Patient moved bowel. General: Alert, Oriented x3, Cooperative HEENT: Atraumatic, PERRLA, EOMI, Normocephalic Oral: No Gingival or Mucosal Lesions/ Ulcerations Neck: Supple, No JVD, Negative Carotid Bruits Lungs: Air entry diminished in bilateral lung bases. No crepitation/rhonchi. Severe hypoxia. NIPPV Cardiovascular: Sinus rhythm, PVCs, normal S1, Normal S2, No murmurs Abdomen: Bowel Sounds Present, Soft, Non Tender, Non-Distended : No renal angle tenderness. No suprapubic tenderness. Extremities: No edema, Capillary Refill Less than 3 Seconds Skin: No rashes, No breakdown Musculoskeletal: Mild weakness of all extremity 4/5. No Tenderness to Palpation of Joints or Extremities Neurological: Cranial nerves II-XII grossly intact, DTR 2+/4 and Symmetrical, Neuro grossly intact Psych/Mental Status: Flat affect Assessment & Plan Assessment/Plan (1) Acute respiratory failure with hypoxia: (2) COVID-19: PLAN: 1. acute hypoxic respiratory failure due to bilateral COVID-19 pneumonia on Airvo. Bacterial work up negative 09/27 transition to high flow oxygen. 09/28: Patient on BiPAP last night. Currently on high flow oxygen. Patient reports slight improvement in shortness of breath. 2. COVID 19 pneumonia vaccinated. not boosted completed dexamethasone, but declined remdesivir seen by ID, on baricitinib through 10/02 quarantine through 09/29 3. Chronic HFpEF with mechanical aortic valve: Echo from October 2018 shows EF 75% with hyperdynamic LV systolic function. Aortic valve prosthetic valve [place], mean gradient 5 mmHg and aortic VT is 25.9 cm Bumex and spironolactone. K4.3. 4. pAfib: On warfarin. INR 3.0. 09/27: INR remain 3.0. Patient in sinus rhythm. Continue to hold Coumadin 09/28: INR 3.0. Low-dose warfarin 1 mg started. Monitor INR daily 5. VTE prophylaxis: anticoagulated. CODE STATUS, full code. He would want to be intubated if the alternative was . prognosis: guarded. Active Medications Acetaminophen (Acetaminophen 325 Mg Tablet) 650 mg PO Q6H PRN PRN PRN Reason: Pain 1-10 or Fever Last Admin: 09/25/21 09:32 Dose: 650 mg Documented by: Albuterol/Ipratropium (Ipratropium/Albuterol Sulfate 3 Ml Ampul.Neb) 3 ml INHALATION Q2H PRN PRN PRN Reason: SOB/WHEEZING Last Admin: 09/18/21 07:32 Dose: 3 ml Documented by: Albuterol/Ipratropium (Ipratropium/Albuterol Sulfate 3 Ml Ampul.Neb) 3 ml IN HALATION Q4HWA.RT SANJIV Last Admin: 09/28/21 11:08 Dose: 3 ml Documented by: Atorvastatin Calcium (Atorvastatin Calcium 20 Mg Tablet) 20 mg PO QHS SANJIV Last Admin: 09/27/21 21:12 Dose: 20 mg Documented by: Baricitinib (Baricitinib 2 Mg Tablet) 4 mg PO DAILY [facility] Stop: 10/02/21 10:01 Last Admin: 09/28/21 08:11 Dose: 4 mg Documented by: Bumetanide (Bumetanide 2 Mg Tablet) 1 mg PO DAILY [facility] Last Admin: 09/28/21 08:11 Dose: 1 mg Documented by: Sodium Chloride () 250 mls @ 15 mls/hr IV .[id number] PRN PRN Reason: Saline Flush Sodium Chloride () 250 mls @ 15 mls/hr IV .[id number] PRN PRN Reason: Additional IVPB Infusion Insulin Human Lispro (Insulin Lispro 100 Unit/Ml Insuln.Pen) 0 unit SC ACHS [facility]; Protocol Last Admin: 09/28/21 11:40 Dose: Not Given Documented by: Magnesium Chloride (Magnesium Chloride 64 Mg Delay Rel.Tablet) 128 mg PO BID [facility] Last Admin: 09/28/21 08:10 Dose: 128 mg Documented by: Melatonin (Melatonin 3 Mg Tablet) 3 mg PO QHS PRN PRN PRN Reason: INSOMNIA Last Admin: 09/20/21 22:15 Dose: 3 mg Documented by: Metoprolol Tartrate (Metoprolol Tartrate 50 Mg Tablet) 50 mg PO BID [facility] Last Admin: 09/28/21 08:10 Dose: 50 mg Documented by: Multivitamins (Multivitamins,Therapeutic Tablet) 1 tablet PO DAILY [facility] Last Admin: 09/28/21 08:10 Dose: 1 tablet Documented by: Ondansetron HCl (Ondansetron 4 Mg/2 Ml Vial) 4 mg IV Q8H PRN PRN PRN Reason: NAUSEA/VOMITING Psyllium Hydrophilic Mucilloid (Psyllium 1 Packet) 1 packet PO BID [facility] Last Admin: 09/28/21 08:11 Dose: 1 packet Documented by: Senna/Docusate Sodium (Senna/Docusate Sodium 1 Tablet) 2 tablet PO BID [facility] Last Admin: 09/28/21 08:10 Dose: 2 tablet Documented by: Silver Sulfadiazine (Silver Sulfadiazine 1% Crm 50 Gm Bottle) 1 applic TOPICAL BID [facility] Last Admin: 09/28/21 08:12 Dose: 1 applic Documented by: Sodium Chloride (0.9% Saline Lock 10 Ml Syringe) 10 - 40 ml IV UD PRN PRN Reason: SALINE FLUSH Last Admin: 09/27/21 21:13 Dose: 10 ml Documented by: Sodium Chloride (Sodium Chloride 0.65% 1 [place].Btl) 2 spray NASAL TID PRN PRN PRN Reason: NASAL DRYNESS Last Admin: 09/25/21 01:14 Dose: 2 spray Documented by: Spironolactone (Spironolactone 25 Mg Tablet) 50 mg PO DAILY [facility] Last Admin: 09/28/21 08:10 Dose: 50 mg Documented by: Tamsulosin HCl (Tamsulosin Hcl 0.4 Mg Capsule) 0.4 mg PO DAILY [facility] Last Admin: 09/28/21 08:11 Dose: 0.4 mg Documented by: Warfarin Sodium (Jantoven 2 Mg Tablet) 2 mg PO DINNER [facility]
[2021-09-29] MEDS: Magnesium Chloride 64 MG Delay Rel.Tablet 128 MG PO (08:41)
[2021-09-29] MEDS: Tamsulosin HCl 0.4 MG Capsule PO (08:41)
[2021-09-29] MEDS: Spironolactone 25 MG Tablet 50 MG PO (08:41)
[2021-09-29] MEDS: Multivitamins,Therapeutic Tablet 1 TABLET PO (08:42)
[2021-09-29] MEDS: Metoprolol Tartrate 50 MG Tablet PO (08:42)
[2021-09-29] MEDS: Bumetanide 2 MG Tablet 1 MG PO (08:42)
[2021-09-29] MEDS: Senna/Docusate Sodium 1 Tablet 2 TABLET PO (08:42)
[2021-09-29] MEDS: Silver Sulfadiazine 1% Crm 50 gm Bottle 1 APPLIC TOPICAL (08:43)
--- NOTE | 2021-09-29 09:00 | CASEMGMT ---
WILLIAN faxed all clinicals to [facility] to obtain pre-cert. SW to call patient's and let her know that [facility] can accept patient. Helen Booth [employer]
--- NOTE | 2021-09-29 09:45 | CASEMGMT ---
WILLIAN called patient's , Francisca and let her know patient was accepted at [facility] and information was sent to his insurance to give [facility] the okay to send patient to SNF. WILLIAN will let her know as soon as WILLIAN hears back. Plan: [facility] pending pre-cert. Helen VALERIO
--- NOTE | 2021-09-29 10:47 | PCM.TXEXTCAR ---
Diet 09/23/21 13:39 Diet: Consistent Carb - Calorie Controlled Food consistency:: Regular Liquid Consistency:: Regular/Thin Type of Dietary Supplement:: Glucerna Shake Is pt able to select menu?: No Diet Comments: 120ml glucerna shake TID w/ meals & magic cup w/ dinner How many daily calories?: 2000 calorie Routine Orders/Code Status Suppository Type: Dulcolax 10mg Suppository Frequency: Daily PRN Routine Lab Work: CBC, BMP (weekly) and INR (daily on warfarin) Code Status: Full Code Wound(s) Left leg: Wound Type: Abrasion Dressing Change: Adaptic right leg: Wound Type: Abrasion Dressing Change: Adaptic right upper cheek area- large irregular dark scab: Wound Type: scab Therapies Weight Bearing: Weight bearing as tolerated Extremity Affected:: Bilateral Lower Physical Therapy: Eval and Treat Occupational Therapy: Eval and Treat Speech Therapy: Eval and Treat Problem/Diagnosis (1) Acute respiratory failure with hypoxia: Status: Acute (2) COVID-19: Status: Acute Allergies/Procedures Done in Hospital Allergies No Known Allergies Allergy (Verified 03/15/21 09:54) Type of Care/Length of Stay Estimated LOS: Convalescent Care Less Than 30 days Type of Care Needed: Skilled Rehab Potential: Good Prognosis: Good Additional Orders/Day of Discharge Day of Discharge: 09/29/21 Dietary and Speech Recommendations Dietitian Recommendations/Changes: 2000 calorie/consistent carbohydrate diet. Will continue glucerna w/ meals--120ml TID and magic cup w/ dinner for additional calories/protein if consumed. Discharge Plan Admission Admit Date/Time: 09/17/21 16:11 Primary Reason for Your Visit: Acute hypoxic respiratory failure from COVID-19 pneumonia Attending Provider: Franko Spann Primary Care Provider: Sanju Luna Consulting Providers: Johnathan Ferro ; Juan Antonio Currie ; Brannon Aguero ; Niki Huerta PRINTER APPRENTICE ; Friend,Chance Discharge Orders/Prescriptions Prescriptions: New acetaminophen [Tylenol] 325 mg Tablet 650 mg PO Q6H PRN PRN (Reason: Pain 1-10 Or Fever) Qty: 0 RF: 0 atorvastatin 20 mg Tablet 20 mg PO QHS Qty: 0 RF: 0 ipratropium-albuterol 0.5 mg-3 mg(2.5 mg base)/3 mL Solution For Nebulization 3 ml inhalation Q2H PRN PRN (Reason: SOB/WHEEZING) Qty: 0 RF: 0 warfarin [Jantoven] 3 mg Tablet 3 mg PO DINNER Qty: 0 RF: 0 insulin lispro [Humalog KwikPen Insulin] 100 unit/mL Insulin Pen See Protocol unit subcut ACHS Qty: 0 RF: 0 Daily Fiber (psyllium-aspart) 3 gram Powder In Packet 1 packet PO BID Qty: 0 RF: 0 Continued metformin 500 mg tablet 500 mg PO DAILY RF: 0 multivitamin with minerals 1 EACH tablet 1 tab PO DAILY RF: 0 metoprolol tartrate 50 mg tablet 50 mg PO BID Qty: 0 RF: 0 pseudoephedrine-guaifenesin [Mucinex D] 60-600 mg tablet extended release 12 hr 2 tab PO BID Qty: 14 RF: 0 silver sulfadiazine 1 % cream 1 applic topical DAILY RF: 0 tamsulosin 0.4 mg capsule 0.4 mg PO DAILY@1730 RF: 0 bumetanide 1 mg tablet 1 mg PO DAILY RF: 0 magnesium oxide 400 mg capsule 400 mg PO BID RF: 0 spironolactone 50 mg tablet 50 mg PO DAILY Qty: 0 RF: 0 Discontinued simvastatin 40 mg tablet 40 mg PO QHS RF: 0 dexamethasone 6 mg tablet 6 mg PO DAILY RF: 0 warfarin 5 mg tablet 5 mg PO DAILY RF: 0 Referrals / Follow Up: Brannon Aguero DO [STAFF PHYSICIAN] - Within 2 Weeks Sanju Luna MD [Primary Care Provider] - Within 2 Weeks Chance Khalil DO [STAFF PHYSICIAN] - Within 1 Month (FOR CHRONIC Constipation ) Disposition Disposition (needs filled in before D/C Order can be placed): [facility]
--- NOTE | 2021-09-29 11:30 | WOUNDNOTE ---
wound photo: left lower leg
--- NOTE | 2021-09-29 11:30 | WOUNDNOTE ---
wound photo: right lower leg
[2021-09-29 11:36] LABS: Bedside Glucose 151 mg/dL (70-110)
[2021-09-29] MEDS: Insulin Lispro 100 UNIT/ML INSULN.PEN SC (11:36)
--- NOTE | 2021-09-29 11:50 | CASEMGMT ---
WILLIAN received a call from [facility] with [facility]. She has approved patient to go to [place]. This approval is good through the and if patient does not leave by then he will require another authorization. The reference number is: [id number]. WILLIAN will notify physician and Rocío at [place]. Helen VALERIO
--- NOTE | 2021-09-29 12:59 | PCM.DC.SUM ---
Providers Date of Admission: 09/17/21 Date of Discharge: 09/29/21 Primary Care Physician: Dr. Sanju Luna MD Consultations 09/18/21 03:09 Consult: Onc/Wound/job developer for deaf adults Routine Comment: Reason for Consult:: wound to LLE 09/18/21 07:40 Consult: Developer Architect / Pulmonary Medicine Routine Consulting Provider: [facility] Reason for Consult: acute hypoxic respiratory failure due to covid EMERGENT Consult: No Notified: Yes Date Notified: 09/18/21 Time Notified: 07:40 Method of Notification: Text 09/18/21 17:51 Consult: Infectious Disease Routine Consulting Provider: Johnathan Ferro Reason for Consult: acute respiratory failure due to covid EMERGENT Consult: No Notified: Yes Date Notified: 09/19/21 Time Notified: 08:52 Method of Notification: Answering Service 09/26/21 04:25 Consult: Gastroenterology Routine Consulting Provider: Chance Khalil Reason for Consult: Constipation EMERGENT Consult: No Notified: Yes Date Notified: 09/26/21 Time Notified: 06:39 Method of Notification: Text Reason For Visit: COVID 19 ACUTE HYPOXIC RESP FAILURE Diagnosis Discharge Diagnosis (1) Acute respiratory failure with hypoxia: Status: Acute Code(s): J96.01 - Acute respiratory failure with hypoxia (2) COVID-19: Status: Acute Code(s): U07.1 - COVID-19 Medications at Discharge Home Medications multivitamin with minerals 1 tab PO DAILY 10/18/18 metformin 500 mg tablet 500 mg PO DAILY tab 11/08/18 metoprolol tartrate 50 mg PO BID #0 tab 09/14/21 pseudoephedrine-guaifenesin [Mucinex D] 2 tab PO BID #14 tab 09/14/21 bumetanide 1 mg PO DAILY 09/18/21 magnesium oxide 400 mg PO BID 09/18/21 silver sulfadiazine 1 applic TOPICAL DAILY 09/18/21 tamsulosin 0.4 mg PO DAILY@1730 09/18/21 acetaminophen [Tylenol] 650 mg PO Q6H PRN PRN #0 tab 09/29/21 atorvastatin 20 mg PO QHS #0 tab 09/29/21 insulin lispro [Humalog KwikPen Insulin] See Protocol SUBCUT ACHS #0 ml 09/29/21 ipratropium-albuterol 3 ml INHALATION Q2H PRN PRN #0 ml 09/29/21 psyllium husk (aspartame) [Daily Fiber (psyllium-aspart)] 1 packet PO BID #0 ea 09/29/21 sennosides-docusate sodium [Stool Softener-Stimulant Laxat] 2 tab PO BID #0 tab 09/29/21 spironolactone 50 mg PO DAILY #0 tab 09/29/21 warfarin [Jantoven] 3 mg PO DINNER #0 tab 09/29/21 Hospital Course Summary of Care Provided Hospital Course: This 81-year-old question gentleman was admitted. His Covid symptoms predominantly shortness of breath, cough started on September 08, 2019. Patient is not vaccinated. Patient was initially admitted on floor but later transferred to ICU on 09/18 for worsening shortness of breath. 1. acute hypoxic respiratory failure due to bilateral COVID-19 pneumonia: Patient was managed on BiPAP, air Vo and AVAPS. on Airvo. Bacterial work up negative. Currently patient is transition to high flow oxygen during daytime most recent requirement for liter per minute and BiPAP during naps at night. 2. COVID 19 pneumonia vaccinated. not boosted completed dexamethasone, but declined remdesivir. seen by ID, on baricitinib through 10/02. Patient oxygenation improved therefore does not need further. Patient requires quarantine through 09/29 3. Chronic HFpEF with mechanical aortic valve: Echo from October 2018 shows EF 75% with hyperdynamic LV systolic function. Aortic valve prosthetic valve [place], mean gradient 5 mmHg and aortic VT is 25.9 cm Bumex and spironolactone. K4.3. Patient is tolerating spironolactone Bumex. 4. pAfib: On warfarin. INR 3.0. 09/27: INR remain 3.0. Patient in sinus rhythm. Continue to hold Coumadin 09/28: INR 3.0. Low-dose warfarin 1 mg started. Monitor INR daily 09/29 INR 2.3. Warfarin was increased to 3 mg daily. Monitor INR daily and titrate the dose of warfarin accordingly. With mechanical valve we will try to keep INR around 3.0. 5. Patient has severe chronic constipation. On senna S and psyllium. Dulcolax suppository and soapsuds as needed for severity of constipation. Follow-up with Dr. Khalil for further evaluation. VTE prophylaxis: anticoagulated. CODE STATUS, full code. He would want to be intubated if the alternative was . prognosis: guarded. Discharge medication reconciliation done. Discharge follow-up instructions completed. Discharge process discussed with the patient and all questions were answered to patient's satisfaction. Discussed with manager social media. Patient is okay for keeping on high flow oxygen during the tonight on 09/29 but BiPAP during The night afterwards. Total time spent, exact 35 minutes on discharge meds reconciliation, examination, coordination of care with nurses and ancillary staff, review of imaging and blood test and discussion with the patient on follow-up instructions Physical Exam Narrative Seen and examined on 09/29/2021 Patient moved bowel. General: Alert, Oriented x3, Cooperative, morbid obesity BMI 35.1 kg/m? HEENT: Atraumatic, PERRLA, EOMI, Normocephalic Oral: No Gingival or Mucosal Lesions/ Ulcerations Neck: Supple, No JVD, Negative Carotid Bruits Lungs: Air entry diminished in bilateral lung bases. No crepitation/rhonchi. Severe hypoxia. On 4 L of oxygen. Cardiovascular: Sinus rhythm, PVCs, normal S1, Normal S2, No murmurs Abdomen: Bowel Sounds Present, Soft, Non Tender, Non-Distended : No renal angle tenderness. No suprapubic tenderness. Extremities: No edema, Capillary Refill Less than 3 Seconds Skin: No rashes, No breakdown Musculoskeletal: Mild weakness of all extremity 4/5. No Tenderness to Palpation of Joints or Extremities Neurological: Cranial nerves II-XII grossly intact, DTR 2+/4 and Symmetrical, Neuro grossly intact Psych/Mental Status: Flat affect Medical Records Data Medical Nutrition Assessment Dietitian: Malnutrition Criteria Met Start: 09/22/21 09:27 Freq: Status: Active Protocol: Document 09/26/21 13:12 RMA (Rec: 09/26/21 13:13 RMA [id number]) Nutrition Malnutrition Evidence of Malnutrition Exists Yes Malnutrition (severe): Acute Illness/Injury Evidenced By Suboptimal Energy Intake ( Severe),Weight Loss (Severe) Intake Problem Inadequate Oral Intake Etiology r/t resp. failure, decreased appetite Signs/Symptoms as evidenced by estimated PO intake meeting <50% of estimated energy needs Status Active Problem Clinical Problem Acute Disease or Injury Related Malnutrition Etiology severe, acute malnutrition r/t inadequate energy intake d/t acute illness Signs/Symptoms as evidenced by unintentional wt loss of 8.9% from usual body wt; 5.1% wt loss since adm (09/17/21); estimated PO intake meeting <50% of estimated energy needs >5 days Status Active Problem Recommendation Dietitian Recommendations/Changes 2000 calorie/consistent carbohydrate diet. Will continue glucerna w/ meals--120ml TID and magic cup w/ dinner for additional calories/protein if consumed. Weight / BMI Weight Weight: 251 lb 8.759 oz Body Mass Index (BMI) 36.6 ABG / Lab / Microbiology Data Result Diagrams: 09/29/21 05:35 09/29/21 05:35 Laboratory: Laboratory Results - last 24 hr 09/28/21 16:13: POC Glucose 174 H 09/28/21 21:27: POC Glucose 127 H 09/29/21 05:35: WBC 10.9, RBC 5.64, Hgb 16.9 H, Hct 49.5, MCV 87.8, MCH 30.0, MCHC 34.1, RDW Std Deviation 38.0, RDW Coeff of Arnol 11.9, Plt Count 253, MPV 9.8, Immature Gran % (Auto) 2.400 H, Neut % (Auto) 80.1 H, Lymph % (Auto) 7.5 L, [place] % (Auto) 7.0, Eos % (Auto) 2.7, Baso % (Auto) 0.3, Absolute Neuts (auto) 8.8 H, Absolute Lymphs (auto) 0.82 L, Nucleated RBC % 0 09/29/21 05:35: Sodium 133 L, Potassium 4.3, Chloride 101, Carbon Dioxide 24.0, Anion Gap 8, BUN 34 H, Creatinine 0.90, Estim Creat Clear Calc 69.72, Est GFR (MDRD) Af Amer 104, Est GFR (MDRD) Non-Af 86, BUN/Creatinine Ratio 37.6 H, Glucose 106, Calcium 8.7, Total Bilirubin 0.70, AST 66 H, ALT 67 H, Alkaline Phosphatase 108, Total Protein 7.2, Albumin 2.2 L, Globulin 5.0 H, Albumin/Globulin Ratio 0.4 L 09/29/21 05:35: PT 24.1 H, INR 2.3 09/29/21 06:30: POC Glucose 125 H 09/29/21 11:30: POC Glucose 151 H Microbiology: Microbiology 09/17/21 20:50 Urine, Random Streptococcus pneumoniae Antigen (M - Final Meaningful Use Info Meaningful Use Diagnoses (Choose all that apply): None applicable Discharge Plan Admission Admit Date/Time: 09/17/21 16:11 Primary Reason for Your Visit: Acute hypoxic respiratory failure from COVID-19 pneumonia Attending Provider: Franko Spann Primary Care Provider: Sanju Luna Consulting Providers: Johnathan Ferro ; Juan Antonio Currie ; Brannon Aguero ; Niki Huerta TOOL REPAIRER BENCH ; Friend,Chance Instructions Additional Instructions / Restrictions: Soapsuds enema as needed for severe constipation. Check PT/NR daily to address the dose of warfarin. Keep INR around 3.0 It is okay not to put BiPAP tonight but on oxygen. The patient needs BiPAP during nap and night afterwards. Discharge Orders/Prescriptions Prescriptions: New acetaminophen [Tylenol] 325 mg Tablet 650 mg PO Q6H PRN PRN (Reason: Pain 1-10 Or Fever) Qty: 0 RF: 0 atorvastatin 20 mg Tablet 20 mg PO QHS Qty: 0 RF: 0 ipratropium-albuterol 0.5 mg-3 mg(2.5 mg base)/3 mL Solution For Nebulization 3 ml inhalation Q2H PRN PRN (Reason: SOB/WHEEZING) Qty: 0 RF: 0 warfarin [Jantoven] 3 mg Tablet 3 mg PO DINNER Qty: 0 RF: 0 insulin lispro [Humalog KwikPen Insulin] 100 unit/mL Insulin Pen See Protocol unit subcut ACHS Qty: 0 RF: 0 Daily Fiber (psyllium-aspart) 3 gram Powder In Packet 1 packet PO BID Qty: 0 RF: 0 sennosides-docusate sodium [Stool Softener-Stimulant Laxat] 8.6-50 mg Tablet 2 tab PO BID Qty: 0 RF: 0 Continued metformin 500 mg tablet 500 mg PO DAILY RF: 0 multivitamin with minerals 1 EACH tablet 1 tab PO DAILY RF: 0 metoprolol tartrate 50 mg tablet 50 mg PO BID Qty: 0 RF: 0 pseudoephedrine-guaifenesin [Mucinex D] 60-600 mg tablet extended release 12 hr 2 tab PO BID Qty: 14 RF: 0 silver sulfadiazine 1 % cream 1 applic topical DAILY RF: 0 tamsulosin 0.4 mg capsule 0.4 mg PO DAILY@1730 RF: 0 bumetanide 1 mg tablet 1 mg PO DAILY RF: 0 magnesium oxide 400 mg capsule 400 mg PO BID RF: 0 spironolactone 50 mg tablet 50 mg PO DAILY Qty: 0 RF: 0 Discontinued simvastatin 40 mg tablet 40 mg PO QHS RF: 0 dexamethasone 6 mg tablet 6 mg PO DAILY RF: 0 warfarin 5 mg tablet 5 mg PO DAILY RF: 0 Referrals / Follow Up: Brannon Aguero DO [STAFF PHYSICIAN] - Within 2 Weeks Sanju Luna MD [Primary Care Provider] - Within 2 Weeks Chance Khalil DO [STAFF PHYSICIAN] - Within 1 Month (FOR CHRONIC Constipation ) Disposition Disposition (needs filled in before D/C Order can be placed): Care Home Facility Charges/Coding Visit Charges Inpatient E&M: 99919 Disch Hosp
--- NOTE | 2021-09-29 13:51 | CASEMGMT ---
Addendum entered by Helen Booth 09/29/21 14:25: [facility] will take patient today. Helen VALERIO Original Note: Patient has been wearing a bipap at night and with naps. Except last night he did not. It is recommended that he wear the bipap. WILLIAN called Rocío at [facility] to make sure she was aware of the bipap. Rocío was not and they will have to order one and it will not be there until tomorrow. Rocío said their staff prefers they have one in house before he comes. WILLIAN checked with Pulmonology and it is fine if patient goes without bipap tonight. WILLIAN will talk with Rocío to see if they can take patient today still. WILLIAN left Rocío a voice mail. Helen VALERIO
--- NOTE | 2021-09-29 14:54 | CASEMGMT ---
WILLIAN arranged for patient to get picked up at for patient to get picked up at 4p via [facility] van. WILLIAN faxed orders, COVID, and garbage pick up man time to [facility]. WILLIAN notified RN, secretary administrative assistant, Rocío at [facility], and patient's . WILLIAN completed a 7000 in [place]. All in agreement with d/c plan. Plan: d/c to [facility] under skilled level of care on a convalescent stay. Physicians will transport via [facility] van. Helen VALERIO
--- NOTE | 2021-09-29 14:55 | NURSING ---
Report called to Keysha at [facility].
--- NOTE | 2021-09-29 15:35 | CHAPLAIN ---
Type of Pastoral Visit _x__ Initial Visit ___ Follow-up Visit ___ On-call Visit ___ General Patient Visit ___ Spiritual Assessment ___ Family Conference ___ Bereavement ___ Rapid Response ___ Code Blue ___ Other (describe below) Pastoral Care Referral From _x__ Patient ___ Family ___ Nurse ___ Physician ___ Blood Donor Unit Assistant ___ Stamping Mill Tender ___ Other (describe below) Sacrament/Intervention _x__ Active listening ___ Anointing ___ Denominational ___ Bereavement ___ Communion ___ Nayeli exploration ___ ___ Life review ___ Prayer ___ Reconciliation ___ Sacrament of Sick _x__ Supportive presence ___ Wedding ___ Other (describe below) Pastoral Comments patient had just been seen by PT and OT; pt welcomes visit from this cast associate and talks about his long illness, the great care he received, the surprise at the severity of COVID, the of a few friends from COVID, his skepticism about life, and a review of his career; it was a long conversation; pt speaks of seeing his for the first time in a long time due to isolation; 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
[2021-09-29 17:20] LABS: Bedside Glucose 149 mg/dL (70-110)
== END 2021-09-29 18:43 | disposition skilled nursing facility (03) | DRG 177 ==
LOC: MS3 09-18 07:35 → ICU 09-19 07:07 → ED 09-19 14:17 → ICU 09-19 14:41 → MS3 09-19 14:41 → ICU 09-23 13:08 → PCU 09-23 13:15
PROVIDERS: Internal Medicine Critical Care Medicine; Student in an Organized Health Care Education/Training Program; Admitting Provider Hospitalist; Emergency Provider Emergency Medicine; PCP Family Medicine; Visit Provider Internal Medicine
DX: U07.1 COVID-19 (principal); J12.82 Pneumonia due to coronavirus disease 2019; J96.01 Acute respiratory failure with hypoxia; E43 Unspecified severe protein-calorie malnutrition; I13.0 Hypertensive heart and chronic kidney disease with heart failure and stage 1 through stage 4 chronic kidney disease, or unspecified chronic kidney disease; I50.32 Chronic diastolic (congestive) heart failure; D68.9 Coagulation defect, unspecified; Z68.41 Body mass index [BMI] 40.0-44.9, adult; E11.22 Type 2 diabetes mellitus with diabetic chronic kidney disease; I48.0 Paroxysmal atrial fibrillation; E66.01 Morbid (severe) obesity due to excess calories; E78.5 Hyperlipidemia, unspecified; N18.9 Chronic kidney disease, unspecified; I35.0 Nonrheumatic aortic (valve) stenosis; I25.10 Atherosclerotic heart disease of native coronary artery without angina pectoris; K59.09 Other constipation; G47.33 Obstructive sleep apnea (adult) (pediatric); I25.2 Old myocardial infarction; N18.2 Chronic kidney disease, stage 2 (mild); Z95.2 Presence of prosthetic heart valve; Z79.84 Long term (current) use of oral hypoglycemic drugs; Z66 Do not resuscitate; Z86.73 Personal history of transient ischemic attack (TIA), and cerebral infarction without residual deficits; H91.90 Unspecified hearing loss, unspecified ear; Z79.01 Long term (current) use of anticoagulants; Z95.1 Presence of aortocoronary bypass graft; Z79.899 Other long term (current) drug therapy; I49.3 Ventricular premature depolarization
CPT/HCPCS: 36415; 36600; 71045; 74018; 80048; 80053; 80076; 82803; 82962; 83605; 83735; 83880; 84100; 84145; 84484; 85025; 85610; 86140; 87426; 87449; 93005; 94002; 94003; 94640; 94660; 94667; 94668; 96374; 96375; 97110; 97162; 97166; 97530; 97535; 99285; A4216; J1940

== ENCOUNTER → 2021-09-30 | Outpatient (REF) | payer SELFPAY ==
[2021-09-30 07:20] LABS: INR Fingerstick 2.1
== END | disposition home or self-care (01) ==
LOC: OLS.WHLTCC 05:00
PROVIDERS: PCP Family Medicine; Visit Provider Family Medicine
DX: I11.0 Hypertensive heart disease with heart failure (principal); I50.32 Chronic diastolic (congestive) heart failure; J96.01 Acute respiratory failure with hypoxia; I48.0 Paroxysmal atrial fibrillation; I25.10 Atherosclerotic heart disease of native coronary artery without angina pectoris
CPT/HCPCS: 36416; 85610

== ENCOUNTER → 2021-10-03 | Outpatient (REF) | payer SELFPAY ==
[2021-10-03 10:00] LABS: Hematocrit 49.3 % (40-54); Hemoglobin 17.2 g/dL (13.0-16.5); Mean Corp Hgb Conc 34.9 g/dL (32-36); Mean Corpuscular Hgb 30.7 pg (27.0-32.0); Mean Corpuscular Volume 87.9 fL (80-94); Mean Platelet Vol. 9.8 fl (6.2-12.0); Platelet Count 197 K/mm3 (150-450); RBC Distribution Width CV 12.2 % (11.6-14.6); RBC Distribution Width SD 38.6 fl (35.1-43.9); Red Blood Count 5.61 M/mm3 (4.6-6.2); White Blood Count 11.5 K/mm3 (4.4-11.0)
[2021-10-03 10:41] LABS: Anion Gap 18 (5-15); BUN 19 mg/dL (7-18); BUN/Creat Ratio 20.5 RATIO (10-20); Calcium,Total 5.2 mg/dL (8.5-10.1); Chloride 99 mmol/L (98-107); Creatinine, Serum 0.93 mg/dL (0.70-1.30); EST Glomerular Filtration Rate 83 mL/min (>60); Est Glom Filt Rate - Afr Amer 101 mL/min (>60); Glucose 48 mg/dL (74-106); Potassium 5.3 mmol/L (3.5-5.1); Sodium Level 132 mmol/L (136-145)
== END | disposition home or self-care (01) ==
LOC: OLS.WHLTCC 04:00
PROVIDERS: PCP Family Medicine; Visit Provider Family Medicine
DX: J96.01 Acute respiratory failure with hypoxia (principal); I11.0 Hypertensive heart disease with heart failure; I50.32 Chronic diastolic (congestive) heart failure; I48.0 Paroxysmal atrial fibrillation; I25.10 Atherosclerotic heart disease of native coronary artery without angina pectoris
CPT/HCPCS: 36415; 80048; 85027

== ENCOUNTER 2021-10-06 04:06 | Emergency (ER) | payer MEDICARE, SELFPAY ==
[2021-10-06 04:07] VITALS: BP 107/67; PULSE 40; RESP 20; TEMP 36.6; O2SAT 96; BMI 36.3
--- NOTE | 2021-10-06 04:26 | RAD_ITS ---
STUDY: X-RAY CHEST REASON FOR EXAM: Male, 81 years old. weakness TECHNIQUE: Single AP portable view of the chest. COMPARISON: 09/26/2021 and 05/19/2019 FINDINGS: Stable inflation of the lungs with unchanged diffuse patchy airspace disease bilaterally. Stable trace right effusion. Stable cardiomegaly with median sternotomy wires. Normal mediastinum and eliseo. Normal visualized pulmonary arteries. Normal visualized aortic arch and descending thoracic aorta. Normal visualized thoracic spine. Normal visualized ribs, clavicles, and shoulders. There is no demonstrated abnormality of the visualized soft tissue structures of the upper abdomen. RAD/Chest 1 View (Portable) IMPRESSION: Overall, no significant interval change. Stable diffuse bilateral patchy airspace disease; right greater than left with small right effusion Electronically Signed: Familia Peña DO at 4:45 EST ,
--- NOTE | 2021-10-06 04:26 | EKG12_ITS ---
Test Reason : BRADYCARDIA Blood Pressure : / mmHG Vent. Rate : 033 BPM Atrial Rate : 084 BPM P-R Int : 000 ms QRS Dur : 164 ms QT Int : 712 ms P-R-T Axes : 000 -25 107 degrees QTc Int : 526 ms Complete Heart Block Ventricular Escape Rhythm Abnormal ECG Confirmed by XIMENA SANDS, RONAK ([id number]), photograph editor AWILDA REY ([id number]) on 10/10/2021 1:23:34 PM Referred By: Confirmed By:ARIADNE BUENO MD
[2021-10-06 04:34] VITALS: BP 118/60; PULSE 37; RESP 18; O2SAT 97
--- NOTE | 2021-10-06 04:34 | ED.RN ---
called and updated on patient condition and status at this time
[2021-10-06 04:37] LABS: Absolute Lymphocyte Count 0.91 X10^3/uL (0.83-4.51); Absolute Neutrophil Count 9.6 X10^3/uL (2.0-7.7); Basophil# 0.02 X10^3/uL; Basophil% 0.2 % (0-1); Eosinophil# 0.21 X10^3/uL; Eosinophils% 1.7 % (0-5); Hematocrit 49.5 % (40-54); Hemoglobin 16.5 g/dL (13.0-16.5); Lymphocyte # 0.91 X10^3/ul (0.83-4.51); Lymphocyte % 7.5 % (19-41); Mean Corp Hgb Conc 33.3 g/dL (32-36); Mean Corpuscular Hgb 30.6 pg (27.0-32.0); Mean Corpuscular Volume 91.7 fL (80-94); Mean Platelet Vol. 9.9 fl (6.2-12.0); Monocyte# 1.38 X10^3/uL; Monocyte% 11.3 % (0-10); NRBC Flagged by Analyzer 0 % (0-5); Neutrophil # 9.56 X10^3/uL (2.7-7.7); Neutrophil % 78.6 % (47-70); Platelet Count 207 K/mm3 (150-450); RBC Distribution Width CV 12.8 % (11.6-14.6); RBC Distribution Width SD 41.7 fl (35.1-43.9); White Blood Count 12.2 K/mm3 (4.4-11.0)
[2021-10-06 04:52] LABS: Partial Thromboplast Time 59.7 Seconds (24.1-36.2); Prothrombin Time (Protime)PT. 22.1 SECONDS (11.7-14.9)
[2021-10-06 05:02] LABS: Anion Gap 5 (5-15); BUN 28 mg/dL (7-18); BUN/Creat Ratio 20.7 RATIO (10-20); Calcium,Total 9.2 mg/dL (8.5-10.1); Chloride 98 mmol/L (98-107); Creatinine, Serum 1.35 mg/dL (0.70-1.30); EST Glomerular Filtration Rate 54 mL/min (>60); Est Glom Filt Rate - Afr Amer 65 mL/min (>60); Estimated Creatinine Clearance 46.48 ml/min; Glucose 116 mg/dL (74-106); Magnesium 2.5 mg/dL (1.6-2.6); Potassium 4.9 mmol/L (3.5-5.1); Sodium Level 132 mmol/L (136-145); Thyroid Stim Hormone (TSH) 1.42 uIU/mL (0.358-3.74); Troponin-I HS 97 pg/mL (3.0-78.0)
[2021-10-06 05:06] VITALS: BP 117/58; PULSE 72; RESP 20
--- NOTE | 2021-10-06 05:10 | ED.RN ---
CALLED FOR A TRANSFER FOR THIS PATIENT, [facility] DECLINED, [facility] WOULDN'T HAVE A BED TILL AFTER 7AM, CALLED [facility] THEY HAD NO BEDS OR STAFF, CALLED ANTONIA [facility]
--- NOTE | 2021-10-06 05:43 | EDS_ITS ---
HPI History of Present Illness Chief Complaint: Weakness Narrative Narrative: Patient is an 81-year-old male with past medical history of aortic valve replacement as well as cardiac bypass who is currently on Coumadin. He was seen in the hospital at the end of August secondary to Covid. He developed Covid pneumonia and respiratory failure and was admitted to the hospital. Based on his persistent weakness and need for 6 to 7 L of nasal cannula oxygen keep his sats greater than 90% he was sent to the skilled nursing from the hospital stay. Reportedly has been complaining of increased generalized weakness for the past 1 to 2 days. This morning skilled nursing was doing the rounds when they noted him to be hypotensive and bradycardic. Secondary to this EMS was called. EMS reports when they arrived patient was awake and at his baseline mental status. They state their blood pressure was normotensive but did confirm the bradycardic heart rate and therefore patient was sent to the hospital for evaluation. [facility] Medical History Anticoagulated on Coumadin Atherosclerosis of coronary artery of [place] heart without angina pectoris Chronic diastolic (congestive) heart failure Chronic renal insufficiency COVID-19 (09/11/21) Deafness in left ear Dyspnea Essential (primary) hypertension Fall Generalized weakness Head injury History of CVA (cerebrovascular accident) (2010) Hyperlipidemia Left leg cellulitis Non-rheumatic aortic stenosis Non-ST elevation (NSTEMI) myocardial infarction (10/18/18) Obesity Obstructive sleep apnea Paroxysmal atrial fibrillation Postoperative atrial fibrillation Type 2 diabetes mellitus Ulcer of left lower extremity with fat layer exposed Venous insufficiency of both lower extremities Venous insufficiency of left leg Wears hearing aid in both ears Home Medications multivitamin with minerals 1 tab PO DAILY 10/18/18 [History Last Taken 10/18/18 08:00] metformin 500 mg tablet 500 mg PO DAILY tab 11/08/18 [History Last Taken Unknown] metoprolol tartrate 50 mg PO BID #0 tab 09/14/21 [Rx Last Taken 01/15/19] pseudoephedrine-guaifenesin [Mucinex D] 2 tab PO BID #14 tab 09/14/21 [Rx Last Taken Unknown] bumetanide 1 mg PO DAILY 09/18/21 [History Last Taken Unknown] magnesium oxide 400 mg PO BID 09/18/21 [History Last Taken Unknown] silver sulfadiazine 1 applic TOPICAL DAILY 09/18/21 [History Last Taken Unknown] tamsulosin 0.4 mg PO DAILY@1730 09/18/21 [History Last Taken Unknown] acetaminophen [Tylenol] 650 mg PO Q6H PRN PRN #0 tab 09/29/21 [Rx Last Taken Unknown] atorvastatin 20 mg PO QHS #0 tab 09/29/21 [Rx Last Taken Unknown] ipratropium-albuterol 3 ml INHALATION Q2H PRN PRN #0 ml 09/29/21 [Rx Last Taken Unknown] psyllium husk (aspartame) [Daily Fiber (psyllium-aspart)] 1 packet PO BID #0 ea 09/29/21 [Rx Last Taken Unknown] sennosides-docusate sodium [Stool Softener-Stimulant Laxat] 2 tab PO BID #0 tab 09/29/21 [Rx Last Taken Unknown] spironolactone 50 mg PO DAILY #0 tab 09/29/21 [Rx Last Taken Unknown] warfarin 4 mg PO QODAY 10/06/21 [History Last Taken Unknown] warfarin [Jantoven] 3 mg PO 10/06/21 [History Last Taken Unknown] Allergy/AdvReac Type Severity Reaction Status Date / Time No Known Allergies Allergy Verified 10/06/21 04:17 Surgical History H/O aortic valve replacement (10/29/18) 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 Jessy Hemphill, DO) Smoking Status: Never smoker alcohol intake: never substance use type: does not use ROS ROS ED Constitutional Constitutional ED: Denies chills or fever(s) ENT ENT ED: Denies sore throat Cardiovascular Cardiovascular: Denies chest pain Respiratory/Chest Respiratory/Chest: Reports cough and dyspnea Gastrointestinal Gastrointestinal: Denies abdominal pain, diarrhea, nausea or vomiting Genitourinary Genitourinary ED: Denies dysuria Musculoskeletal Musculoskeletal: Reports myalgias Integumentary Denies rash Neurologic Neurologic: Reports weakness; Denies headache(s) Hematologic/Lymphatic Hematologic/Lymphatic: Reports easy bleeding and easy bruising EXAM Physical Exam Const Vital Signs: 10/06/21 04:07 10/06/21 04:34 10/06/21 05:06 Temperature 97.9 F Temperature Source Temporal Pulse Rate 40 L 37 L 72 Respiratory Rate 20 H 18 20 H Blood Pressure 107/67 118/60 117/58 L Blood Pressure Mean 80 79 77 Pulse Ox 96 97 Oxygen Delivery Method Room Air Room Air Positive well nourished, well developed and obese General Appearance ED: well developed Nutritional Appearance: obese HEENT HEENT Narrative: Mucous membranes are dry and tacky but there is no oral lesions no tongue or lip swelling no airway edema or compromise Eyes PERRL and EOMs intact bilaterally Neck supple and no JVD Resp Resp Narrative: Patient has diminished breath sounds throughout with faint expiratory wheeze and rhonchi in the bases. Cardio Rate: other Other Details: Patient has a bradycardic rate with irregular rhythm GI normal to inspection, nondistended, normoactive bowel sounds, non-tender, non- distended and no masses GI Narrative: No voluntary guarding or rigidity no pulsatile mass Auscultation: normoactive bowel sounds Palpation: soft Extremity Extremity Narrative: Patient has trace to +1 pitting edema to the bilateral lower extremities that are equal and symmetric Neuro oriented x3 and CN's II-XII intact bilaterally Sensorium / Orientation: alert Psych Psych Narrative: Patient has a depressed/flat affect Mood & Affect: depressed Skin no rashes or lesions noted MDM MDM MDM Narrative Medical decision making narrative: Patient arrived to the ER awake alert at his baseline mental status. The EMS had obtained a normal tensive blood pressure and his blood pressures in the ER were normal tensive as well. However his heart rate is in the 30s and consistent with a third-degree/complete heart block . Secondary to this I contacted cardiology on-call. They informed me that the doctor who performs pacemaker placement for us is out of town to the end of September. Therefore the patient cannot stay at this facility. We discussed possible treatment options such as transvenous and transcutaneous pacing or the administration of atropine or dobutamine. Cardiology states as he is at his baseline mental status and has a normal tensive blood pressure that they recommend no intervention at this time but if he does become hypotensive or unstable to begin transcutaneous pacing. Because I cannot treat the patient ultimately at our facility patient will be transferred. [facility] was contacted and they do agree to accept the patient at this time. Lab Data Attestation: I reviewed the patient's lab results. Labs: Laboratory Results - last 24 hr 10/06/21 10/06/21 10/06/21 04:20 04:20 04:20 WBC 12.2 H RBC 5.40 Hgb 16.5 Hct 49.5 MCV 91.7 MCH 30.6 MCHC 33.3 RDW Std Deviation 41.7 RDW Coeff of Arnol 12.8 Plt Count 207 MPV 9.9 Immature Gran % (Auto) 0.700 Neut % (Auto) 78.6 H Lymph % (Auto) 7.5 L [place] % (Auto) 11.3 H Eos % (Auto) 1.7 Baso % (Auto) 0.2 Absolute Neuts (auto) 9.6 H Absolute Lymphs (auto) 0.91 Nucleated RBC % 0 PT 22.1 H INR 2.0 APTT 59.7 H Sodium 132 L Potassium 4.9 Chloride 98 Carbon Dioxide 29.0 Anion Gap 5 BUN 28 H Creatinine 1.35 H Estim Creat Clear Calc 46.48 Est GFR (MDRD) Af Amer 65 Est GFR (MDRD) Non-Af 54 L BUN/Creatinine Ratio 20.7 H Glucose 116 H Calcium 9.2 Magnesium 2.5 Troponin I High Sens 97 H TSH 1.42 Radiography Diagnostic Testing: Clinical Impression(s) from Imaging Studies Chest X-Ray 10/06/21 04:26 IMPRESSION: Overall, no significant interval change. Stable diffuse bilateral patchy airspace disease; right greater than left with small right effusion Electronically Signed: Familia Peña DO at 4:45 EST , Critical Care Time Critical Care Time: Yes Critical care time (excluding procedures): Discussing w/Patient &/or Family/Game Agent, Discussing w/Consultants, Arranging Admission or Transfer and - (Please note critical care time of 37 minutes) Discharge Plan Triage Chief Complaint: Weakness ED Provider: Anastacio Squires Dx/Rx/DC Orders Clinical Impression: Complete heart block Prescriptions: No Action metformin 500 mg tablet 500 mg PO DAILY RF: 0 multivitamin with minerals 1 EACH tablet 1 tab PO DAILY RF: 0 metoprolol tartrate 50 mg tablet 50 mg PO BID Qty: 0 RF: 0 pseudoephedrine-guaifenesin [Mucinex D] 60-600 mg tablet extended release 12 hr 2 tab PO BID Qty: 14 RF: 0 silver sulfadiazine 1 % cream 1 applic topical DAILY RF: 0 tamsulosin 0.4 mg capsule 0.4 mg PO DAILY@1730 RF: 0 bumetanide 1 mg tablet 1 mg PO DAILY RF: 0 magnesium oxide 400 mg capsule 400 mg PO BID RF: 0 acetaminophen [Tylenol] 325 mg Tablet 650 mg PO Q6H PRN PRN (Reason: Pain 1-10 Or Fever) Qty: 0 RF: 0 atorvastatin 20 mg Tablet 20 mg PO QHS Qty: 0 RF: 0 ipratropium-albuterol 0.5 mg-3 mg(2.5 mg base)/3 mL Solution For Nebulization 3 ml inhalation Q2H PRN PRN (Reason: SOB/WHEEZING) Qty: 0 RF: 0 Daily Fiber (psyllium-aspart) 3 gram Powder In Packet 1 packet PO BID Qty: 0 RF: 0 spironolactone 50 mg tablet 50 mg PO DAILY Qty: 0 RF: 0 sennosides-docusate sodium [Stool Softener-Stimulant Laxat] 8.6-50 mg Tablet 2 tab PO BID Qty: 0 RF: 0 warfarin 4 mg Tablet 4 mg PO QODAY RF: 0 warfarin [Jantoven] 3 mg tablet 3 mg PO RF: 0 Primary Care Provider: Sanju Luna Referrals: Sanju Luna MD [Primary Care Provider] - Disposition Disposition: Acute Care Hospital Discharge Location: [facility]
[2021-10-06 06:13] VITALS: BP 111/63; PULSE 36; RESP 18; TEMP 36.7; O2SAT 97
--- NOTE | 2021-10-12 08:58 | CASEMGMT ---
WILLIAN received a call from [facility] with [place] asking about patient. Patient came in to ED from [place]. WILLIAN reviewed patient's chart and noted that he was transferred to [facility]. Helen VALERIO
== END 2021-10-06 06:34 | disposition short-term general hospital (02) ==
PROVIDERS: Emergency Provider Emergency Medicine; PCP Family Medicine; Visit Provider Emergency Medicine
DX: I44.2 Atrioventricular block, complete (principal); I13.0 Hypertensive heart and chronic kidney disease with heart failure and stage 1 through stage 4 chronic kidney disease, or unspecified chronic kidney disease; I50.32 Chronic diastolic (congestive) heart failure; E11.22 Type 2 diabetes mellitus with diabetic chronic kidney disease; I48.0 Paroxysmal atrial fibrillation; F32.A Depression, unspecified; I25.10 Atherosclerotic heart disease of native coronary artery without angina pectoris; N18.9 Chronic kidney disease, unspecified; Z86.16 Personal history of COVID-19; Z87.01 Personal history of pneumonia (recurrent); Z86.73 Personal history of transient ischemic attack (TIA), and cerebral infarction without residual deficits; I25.2 Old myocardial infarction; G47.33 Obstructive sleep apnea (adult) (pediatric); I35.0 Nonrheumatic aortic (valve) stenosis; E66.9 Obesity, unspecified; Z95.2 Presence of prosthetic heart valve; Z95.1 Presence of aortocoronary bypass graft; Z79.84 Long term (current) use of oral hypoglycemic drugs; Z79.899 Other long term (current) drug therapy; Z79.01 Long term (current) use of anticoagulants
CPT/HCPCS: 71045; 80048; 83735; 84443; 84484; 85025; 85610; 85730; 87426; 93005; 99285; A4216

== ENCOUNTER → 2021-10-24 | Outpatient (REF) | payer SELFPAY ==
[2021-10-24 08:44] LABS: Hematocrit 44.2 % (40-54); Hemoglobin 14.3 g/dL (13.0-16.5); Mean Corp Hgb Conc 32.4 g/dL (32-36); Mean Corpuscular Hgb 30.2 pg (27.0-32.0); Mean Corpuscular Volume 93.4 fL (80-94); Mean Platelet Vol. 11.4 fl (6.2-12.0); Platelet Count 217 K/mm3 (150-450); RBC Distribution Width CV 13.8 % (11.6-14.6); RBC Distribution Width SD 47.3 fl (35.1-43.9); Red Blood Count 4.73 M/mm3 (4.6-6.2); White Blood Count 7.9 K/mm3 (4.4-11.0)
[2021-10-24 08:56] LABS: Anion Gap 2 (5-15); BUN 16 mg/dL (7-18); BUN/Creat Ratio 17.2 RATIO (10-20); Calcium,Total 9.1 mg/dL (8.5-10.1); Chloride 101 mmol/L (98-107); Creatinine, Serum 0.93 mg/dL (0.70-1.30); EST Glomerular Filtration Rate 83 mL/min (>60); Est Glom Filt Rate - Afr Amer 100 mL/min (>60); Glucose 103 mg/dL (74-106); Potassium 3.8 mmol/L (3.5-5.1); Sodium Level 137 mmol/L (136-145)
== END | disposition home or self-care (01) ==
LOC: OLS.WHLTCC 04:00
PROVIDERS: PCP Family Medicine; Referring Provider Family Medicine; Visit Provider Family Medicine
DX: I33.0 Acute and subacute infective endocarditis (principal); I50.32 Chronic diastolic (congestive) heart failure; J96.01 Acute respiratory failure with hypoxia; I35.0 Nonrheumatic aortic (valve) stenosis; B95.7 Other staphylococcus as the cause of diseases classified elsewhere
CPT/HCPCS: 36415; 80048; 85027

== ENCOUNTER → 2021-10-28 | Outpatient (REF) | payer SELFPAY ==
[2021-10-28 12:30] LABS: Absolute Lymphocyte Count 0.54 X10^3/uL (0.83-4.51); Absolute Neutrophil Count 17.5 X10^3/uL (2.0-7.7); Basophil# 0.05 X10^3/uL; Basophil% 0.3 % (0-1); Eosinophil# 0.02 X10^3/uL; Eosinophils% 0.1 % (0-5); Hematocrit 41.9 % (40-54); Hemoglobin 13.9 g/dL (13.0-16.5); Lymphocyte # 0.54 X10^3/ul (0.83-4.51); Lymphocyte % 2.7 % (19-41); Mean Corp Hgb Conc 33.2 g/dL (32-36); Mean Corpuscular Hgb 30.4 pg (27.0-32.0); Mean Corpuscular Volume 91.7 fL (80-94); Mean Platelet Vol. 10.6 fl (6.2-12.0); Monocyte# 1.43 X10^3/uL; Monocyte% 7.2 % (0-10); NRBC Flagged by Analyzer 0 % (0-5); Neutrophil # 17.54 X10^3/uL (2.7-7.7); Neutrophil % 88.4 % (47-70); POSITIVE DIFFERENTIAL YES; Platelet Count 189 K/mm3 (150-450); RBC Distribution Width CV 14.4 % (11.6-14.6); Red Blood Count 4.57 M/mm3 (4.6-6.2); White Blood Count 19.8 K/mm3 (4.4-11.0)
[2021-10-28 12:32] LABS: Differential Indicated SCAN CRITERIA MET
[2021-10-28 13:06] LABS: ALB/GLOB Ratio 0.4 RATIO (0.9-2.4); AST(SGOT) 28 U/L (15-37); Alanine Aminotransfer ALT/SGPT 7 U/L (16-61); Albumin, Serum 1.8 g/dL (3.2-5.0); Alkaline Phosphatase 120 U/L (45-117); Anion Gap 5 (5-15); BUN 17 mg/dL (7-18); BUN/Creat Ratio 17.3 RATIO (10-20); Chloride 99 mmol/L (98-107); Creatinine, Serum 0.98 mg/dL (0.70-1.30); EST Glomerular Filtration Rate 78 mL/min (>60); Est Glom Filt Rate - Afr Amer 95 mL/min (>60); Globulin 4.4 g/dL (2.2-4.2); Glucose 164 mg/dL (74-106); Potassium 3.8 mmol/L (3.5-5.1); Protein, Total 6.2 g/dL (6.4-8.2); Sodium Level 135 mmol/L (136-145)
== END | disposition home or self-care (01) ==
LOC: OLS.WHLTCC 12:00
PROVIDERS: PCP Family Medicine; Visit Provider Family Medicine
DX: I33.0 Acute and subacute infective endocarditis (principal); I50.32 Chronic diastolic (congestive) heart failure; J96.01 Acute respiratory failure with hypoxia; I35.0 Nonrheumatic aortic (valve) stenosis; R41.0 Disorientation, unspecified; B95.7 Other staphylococcus as the cause of diseases classified elsewhere
CPT/HCPCS: 36415; 80053; 85025

== ENCOUNTER 2021-10-29 01:16 | Emergency (ER) | payer MEDICARE, SELFPAY ==
[2021-10-29 01:19] VITALS: BP 118/77; PULSE 106; RESP 18; TEMP 36.9; O2SAT 96; BMI 34.2
--- NOTE | 2021-10-29 01:25 | CT_ITS ---
STUDY: CT ABDOMEN AND PELVIS WITHOUT CONTRAST REASON FOR EXAM: Male, 81 years old. RLQ pain RADIATION DOSAGE (If Supplied By Facility): CTDIvol = ( 21.73 ) mGy, DLP = ( 1237.98 ) mGycm TECHNIQUE: Transaxial images were obtained from the dome of the diaphragm to the symphysis pubis without oral contrast, and without intravenous contrast. Sagittal and coronal images were reconstructed. Individualized dose optimization techniques were used for this CT. COMPARISON: CTA chest dated 10/19/2018 FINDINGS: Chronic scarring in the right lung base with small right effusion. The visualized portions of the heart are within normal limits. Normal liver. Prominent distention of the gallbladder with pericholecystic fluid and inflammation and edema. No definitive stones. Findings concerning for acute cholecystitis. Normal spleen. There is diffuse atrophy of the pancreas. Normal bilateral adrenal glands. Right lower pole nephrolith measuring 7.2 mm. Otherwise, unremarkable kidney. Normal left kidney. Normal visualized stomach. Normal small intestine. Dense rectal contrast. Colonic diverticulosis without acute diverticulitis. Nonvisualized appendix however, no secondary signs of acute appendicitis. Normal abdominal aorta. Normal inferior vena cava. Normal retroperitoneum. Normal urinary bladder. Normal visualized prostate gland. Normal abdominal wall. Normal osseous structures. CT/Abdomen/Pelvis without Cont IMPRESSION: Abnormal appearance of the gallbladder with prominent distention, gallbladder wall thickening and pericholecystic fluid with inflammation. No definitive stones. Findings concerning for acute cholecystitis. Recommend follow-up ultrasound to further evaluate. Nonobstructing right nephrolith Appendix is not clearly visualized however, no secondary signs of acute appendicitis. Electronically Signed: Familia Peña DO at 3:24 EST ,
--- NOTE | 2021-10-29 01:25 | RAD_ITS ---
STUDY: X-RAY CHEST REASON FOR EXAM: Male, 81 years old. leukocystosis TECHNIQUE: Single AP portable view of the chest. COMPARISON: 10/06/2021 FINDINGS: Right PICC with tip in the mid SVC. No pneumothorax. Increased patchy airspace disease throughout right lung. Left lung is essentially clear. There is mild cardiac enlargement. Median sternotomy wires. Normal mediastinum and eliseo. Normal visualized pulmonary arteries. Normal visualized aortic arch and descending thoracic aorta. Normal visualized thoracic spine. Normal visualized ribs, clavicles, and shoulders. There is no demonstrated abnormality of the visualized soft tissue structures of the upper abdomen. RAD/Chest 1 View (Portable) IMPRESSION: Worsened patchy airspace disease throughout the right lung suggesting infection. Increased right effusion. Right PICC as above Electronically Signed: Familia Peña DO at 3:10 EST ,
--- NOTE | 2021-10-29 01:35 | EDS_ITS ---
HPI HPI - GI History of Present Illness Chief Complaint: Abd Pain Informant: patient and PCP Narrative Narrative: Patient sent in from [facility] for evaluation. I discussed with his physician Dr. Castillo Plunkett prior to his arrival. Complex recent medical history. Primary complaint today was abdominal pain starting today. 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 rifampin 300 mg twice daily. States increasing leukocytosis over the past few days highest at 19 as an outpatient. Reported he had a urine cath this evening with noting 1200 cc output which returned negative for infection. He had COVID-19 infection this past August requiring hospitalization discharged on 6 L oxygen at that time. Patient return to the ED noted October 06 here found to have concerns for complete heart block was transferred to [place] reporting concerns for beta-tata effects. There is no pacemaker. Symptoms improved there, however there was a work-up there with findings of the bacteremia. Reported had initial KOKI with possible vegetations however repeat CT repeat check KOKI was normal. Decision was made by infectious disease for IV antibiotics for 6 weeks. Is currently on 2 to 3 L of nasal cannula. Concern yesterday had confusion no fevers. Reported abdominal pain started after the urine cath, reported bladder ultrasound checked at that time less than 30 cc. He was sent here in here for evaluation due to increasing new abdominal pain with his leukocytosis recently. Patient states no abdominal surgery history pain is in the right lower quadrant. Patient has noted be on warfarin history of paroxysmal atrial fibrillation. Patient reports abdominal pain have subsided. [facility] Medical History Acute respiratory failure with hypoxia Anticoagulated on Coumadin Atherosclerosis of coronary artery of [place] heart without angina pectoris Chronic diastolic (congestive) heart failure Chronic renal insufficiency Constipation COVID-19 (09/11/21) Deafness in left ear Dyspnea Essential (primary) hypertension Fall Generalized weakness Head injury History of CVA (cerebrovascular accident) (2010) Hyperlipidemia Left leg cellulitis Non-rheumatic aortic stenosis Non-ST elevation (NSTEMI) myocardial infarction (10/18/18) Obesity Obstructive sleep apnea Paroxysmal atrial fibrillation Postoperative atrial fibrillation Type 2 diabetes mellitus Ulcer of left lower extremity with fat layer exposed Venous insufficiency of both lower extremities Venous insufficiency of left leg Wears hearing aid in both ears Home Medications multivitamin with minerals 1 tab PO DAILY 10/18/18 [History Last Taken 10/18/18 08:00] metformin 500 mg tablet 500 mg PO DAILY tab 11/08/18 [History Last Taken Unknown] metoprolol tartrate 50 mg PO BID #0 tab 09/14/21 [Rx Last Taken 01/15/19] pseudoephedrine-guaifenesin [Mucinex D] 2 tab PO BID #14 tab 09/14/21 [Rx Last Taken Unknown] bumetanide 1 mg PO DAILY 09/18/21 [History Last Taken Unknown] magnesium oxide 400 mg PO DAILY 09/18/21 [History Last Taken Unknown] silver sulfadiazine 1 applic TOPICAL DAILY 09/18/21 [History Last Taken Unknown] tamsulosin 0.4 mg PO DAILY@1730 09/18/21 [History Last Taken Unknown] acetaminophen [Tylenol] 650 mg PO Q6H PRN PRN #0 tab 09/29/21 [Rx Last Taken Unknown] atorvastatin 20 mg PO QHS #0 tab 09/29/21 [Rx Last Taken Unknown] ipratropium-albuterol 3 ml INHALATION Q2H PRN PRN #0 ml 09/29/21 [Rx Last Taken Unknown] psyllium husk (aspartame) [Daily Fiber (psyllium-aspart)] 1 packet PO BID #0 ea 09/29/21 [Rx Last Taken Unknown] sennosides-docusate sodium [Stool Softener-Stimulant Laxat] 2 tab PO BID #0 tab 09/29/21 [Rx Last Taken Unknown] warfarin 2 mg PO QODAY 10/06/21 [History Last Taken Unknown] warfarin [Jantoven] 3 mg PO 10/06/21 [History Last Taken Unknown] amlodipine 5 mg PO DAILY 10/29/21 [History Last Taken Unknown] aspirin 81 mg PO DAILY 10/29/21 [History Last Taken Unknown] spironolactone 25 mg PO DAILY 10/29/21 [History Last Taken Unknown] Allergy/AdvReac Type Severity Reaction Status Date / Time No Known Allergies Allergy Verified 10/29/21 01:24 Family History (Updated 10/29/21 @ 02:[address] Priya Weinstein MD) Mother Hypertension Heart disease Diabetes Father Hypertension Heart disease Diabetes Kidney disease Surgical History H/O aortic valve replacement (10/29/18) 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) History of cataract surgery History of left heart catheterization (10/21/18) History of tonsillectomy Social History (Updated 10/29/21 @ 02:[address] Priya Weinstein MD) housing: residential Smoking Status: Never smoker alcohol intake: never substance use type: does not use ROS ROS ED Constitutional Constitutional ED: Denies chills, fever(s) or sweats Eyes Eyes: Denies change in vision ENT ENT ED: Denies dysphagia or sore throat Cardiovascular Cardiovascular: Denies chest pain, leg edema, palpitations or racing heartbeat Respiratory/Chest Respiratory/Chest: Denies cough, dyspnea or dyspnea on exertion Gastrointestinal Gastrointestinal: Reports abdominal pain; Denies diarrhea, nausea or vomiting Genitourinary Genitourinary ED: Denies dysuria, hematuria or urinary frequency Musculoskeletal Musculoskeletal: Denies back pain, extremity pain or neck pain Integumentary Denies rash or wounds Neurologic Neurologic: Denies headache(s), paresthesias or weakness EXAM Physical Exam Const Vital Signs: 10/29/21 01:19 10/29/21 02:29 10/29/21 03:29 Temperature 98.5 F 97.7 F L 97.7 F L Temperature Source Oral Oral Oral Pulse Rate 106 H 100 95 Respiratory Rate 18 18 18 Blood Pressure 118/77 128/75 H 113/67 Blood Pressure Mean 90 92 82 Pulse Ox 96 97 99 Oxygen Delivery Method Nasal Cannula Nasal Cannula Nasal Cannula Oxygen Flow Rate (L/min) 2 2 2 10/29/21 04:29 10/29/21 05:29 10/29/21 06:29 Temperature 97.7 F L 97 F L 97 F L Temperature Source Oral Temporal Temporal Pulse Rate 97 87 97 Respiratory Rate 18 16 19 H Blood Pressure 122/61 H 128/68 H 120/67 Blood Pressure Mean 81 88 84 Pulse Ox 99 99 99 Oxygen Delivery Method Nasal Cannula Nasal Cannula Nasal Cannula Oxygen Flow Rate (L/min) 2 2 2 Positive well nourished and well developed Constitutional Narrative: 2 L nasal cannula. Nontoxic. General Appearance ED: well developed and NAD HEENT Reports moist mucous membranes normocephalic and atraumatic Eyes PERRL, EOMs intact bilaterally and conjunctivae normal General Eye ED: Yes normal appearance of both eyes Neck no lymphadenopathy and supple General: Negative for tenderness Chest Wall Chest: Negative for tenderness Resp normal respiratory effort and normal air movement Effort and Inspection: symmetric chest movement; Negative for respiratory distress Cardio regular rate, regular rhythm and no murmurs Peripheral Pulses: pulses 2+ throughout GI normal to inspection, nondistended, normoactive bowel sounds GI Narrative: Tender palpation right lower quadrant. Negative Rovsing's. Negative Gotti's. Small areas lower abdominal ecchymosis secondary to heparin injections. Palpation: Negative for guarding or rebound tenderness present Back/Spine no CVA tenderness and no thoracic nor lumbar tenderness Extremity normal to inspection General Extremety ED: Negative for edema or tenderness General Extremity: Negative for edema Neuro oriented x3 and no sensory deficits noted Sensorium / Orientation: awake and alert Skin no rashes or lesions noted and no wounds MDM MDM MDM Narrative Medical decision making narrative: Patient had a known leukocytosis yesterday of 19. Now abdominal pain. Sepsis labs were ordered knowing his history. Blood cultures 1 from the PICC line. Lactic acid. Urine and chest x-ray. He has right lower quadrant pain on exam CT scan ordered to rule out appendicitis. He denies any abdominal surgery history. Chest x-ray reviewed by myself notes chronic patchy changes right greater than left compared to September, he had Covid back in August. He is stable on his 2 L of oxygen. Labs white count remains at 19.8 compared to yesterday. Hemoglobin 14.4. Potassium 3.5. Sodium 136. Creatinine 0.79. Lactic acid 2. Liver enzymes initially normal slight ALP elevation 126. Lipase of 55. INR therapeutic at 2.6. EKG was sinus rhythm. 0345: Results of CT scan report from radiologist concerning for acute cholecystitis with thickening gallbladder and pericholecystic fluid with promin ent distention. Reevaluation minimal tenderness in the right upper quadrant however he had more tenderness in the right lower quadrant initially. There is no inflammatory findings on the CT scan in the right lower quadrant. Discussed this with patient and significant other in the room. Likely leukocytosis now pain from his gallbladder. I spoke with on-call surgeon Dr. Claros, discussed patient's history and complexity, he did agree with broadening antibiotics to Zosyn due to inflammatory changes on cefazolin and rifampin with his treatment of his bacteremia. Discussed his history of his initial heart block leading to his transfer due to cardiology not being present at that time. In addition I did discuss with hospitalist Dr. Weinstein, they both feel with his complexity and current treatments that he would benefit from higher level of care. Reporting he will likely need a colostomy tube prior to any surgeries. patient unable to give urine, he had reported 1200 cc of urine from a straight catheter earlier therefore was retaining urine. Cedeno catheter was placed, urine was sent with cultures. I discussed this with spouse who would like to try to go back to [facility]. 0430: Spoke with [place] transfer line, updated, will await callback with hospitalist. 0450: I spoke with hospitalist at [facility] Dr. Turk, patient accepted to their hospital for further management. Patient and family updated. Urine did come back noting nitrites and bacteria. Culture is pending. He is covered with Zosyn. Lab Data Attestation: I reviewed the patient's lab results. Labs: Laboratory Results - last 24 hr 10/29/21 10/29/21 10/29/21 01:35 01:35 01:35 WBC 19.8 H RBC 4.59 L Hgb 14.4 Hct 43.1 MCV 93.9 MCH 31.4 MCHC 33.4 RDW Std Deviation 49.4 H RDW Coeff of Arnol 14.3 Plt Count 200 MPV 11.1 Immature Gran % (Auto) 1.200 H Neut % (Auto) 84.4 H Lymph % (Auto) 3.7 L [place] % (Auto) 10.1 H Eos % (Auto) 0.3 Baso % (Auto) 0.3 Absolute Neuts (auto) 16.7 H Absolute Lymphs (auto) 0.73 L Nucleated RBC % 0 Differential Comment SCANNED Diff Path Review May foll PT INR APTT Sodium 136 Potassium 3.5 Chloride 100 Carbon Dioxide 31.0 Anion Gap 5 BUN 17 Creatinine 0.79 Estim Creat Clear Calc 62.75 Est GFR (MDRD) Af Amer 121 Est GFR (MDRD) Non-Af 100 BUN/Creatinine Ratio 21.5 H Glucose 136 H Lactic Acid 2.0 Calcium 9.1 Total Bilirubin 0.80 AST 27 ALT < 6 L Alkaline Phosphatase 126 H Total Protein 6.3 L Albumin 1.8 L Globulin 4.5 H Albumin/Globulin Ratio 0.4 L Lipase 55 L Urine Color Urine Clarity Urine pH Ur Specific [place] Urine Protein Urine Glucose (UA) Urine Ketones Urine Occult Blood Urine Nitrite Urine Bilirubin Urine Urobilinogen Ur Leukocyte Esterase Urine RBC Urine WBC Ur Squamous Epith Cells Urine Bacteria Urine Mucus 10/29/21 10/29/21 01:35 03:39 WBC RBC Hgb Hct MCV MCH MCHC RDW Std Deviation RDW Coeff of Arn[place] Plt Count MPV Immature Gran % (Auto) Neut % (Auto) Lymph % (Auto) [place] % (Auto) Eos % (Auto) Baso % (Auto) Absolute Neuts (auto) Absolute Lymphs (auto) Nucleated RBC % Differential Comment Diff Path Review PT 27.4 H INR 2.6 APTT 58.9 H Sodium Potassium Chloride Carbon Dioxide Anion Gap BUN Creatinine Estim Creat Clear Calc Est GFR (MDRD) Af Amer Est GFR (MDRD) Non-Af BUN/Creatinine Ratio Glucose Lactic Acid Calcium Total Bilirubin AST ALT Alkaline Phosphatase Total Protein Albumin Globulin Albumin/Globulin Ratio Lipase Urine Color Iris Urine Clarity Clear Urine pH 6.0 Ur Specific [place] 1.015 Urine Protein 30 H Urine Glucose (UA) Normal Urine Ketones 5 H Urine Occult Blood 10 H Urine Nitrite Positive H Urine Bilirubin 1 H Urine Urobilinogen 1 H Ur Leukocyte Esterase 100 H Urine RBC 0-5 SEEN Urine WBC 5-10 SEEN Ur Squamous Epith Cells 0 SEEN Urine Bacteria 3+ Urine Mucus 0 SEEN Radiography Diagnostic Testing: Clinical Impression(s) from Imaging Studies Abdomen/Pelvis CT 10/29/21 01:25 IMPRESSION: Abnormal appearance of the gallbladder with prominent distention, gallbladder wall thickening and pericholecystic fluid with inflammation. No definitive stones. Findings concerning for acute cholecystitis. Recommend follow-up ultrasound to further evaluate. Nonobstructing right nephrolith Appendix is not clearly visualized however, no secondary signs of acute appendicitis. Electronically Signed: Familia Peña DO at 3:24 EST , Chest X-Ray 10/29/21 01:25 IMPRESSION: Worsened patchy airspace disease throughout the right lung suggesting infection. Increased right effusion. Right PICC as above Electronically Signed: Familia Peña DO at 3:10 EST , EKG Initial EKG: Attestation: I personally reviewed and interpreted this EKG as follows: Comments: Sinus rate of 100, no ST changes. Critical Care Time Critical Care Time: Yes Critical care time (excluding procedures): 30-74 minutes, Discussing w/Patient &/or Family/Trade Clerk, Discussing w/Consultants, Arranging Admission or Transfer, Performing Direct Patient Care at Bedside and - (45 minutes) Discharge Plan Triage Chief Complaint: Abd Pain ED Provider: Magdy Gonzalez Dx/Rx/DC Orders Clinical Impression: Acute cholecystitis, Abdominal pain, Bacteremia, Sepsis, Adequate anticoagulation on anticoagulant therapy, Acute retention of urine, Acute UTI Prescriptions: No Action metformin 500 mg tablet 500 mg PO DAILY RF: 0 multivitamin with minerals 1 EACH tablet 1 tab PO DAILY RF: 0 metoprolol tartrate 50 mg tablet 50 mg PO BID Qty: 0 RF: 0 pseudoephedrine-guaifenesin [Mucinex D] 60-600 mg tablet extended release 12 hr 2 tab PO BID Qty: 14 RF: 0 silver sulfadiazine 1 % cream 1 applic topical DAILY RF: 0 tamsulosin 0.4 mg capsule 0.4 mg PO DAILY@1730 RF: 0 bumetanide 1 mg tablet 1 mg PO DAILY RF: 0 magnesium oxide 400 mg capsule 400 mg PO DAILY RF: 0 acetaminophen [Tylenol] 325 mg Tablet 650 mg PO Q6H PRN PRN (Reason: Pain 1-10 Or Fever) Qty: 0 RF: 0 atorvastatin 20 mg Tablet 20 mg PO QHS Qty: 0 RF: 0 ipratropium-albuterol 0.5 mg-3 mg(2.5 mg base)/3 mL Solution For Nebulization 3 ml inhalation Q2H PRN PRN (Reason: SOB/WHEEZING) Qty: 0 RF: 0 Daily Fiber (psyllium-aspart) 3 gram Powder In Packet 1 packet PO BID Qty: 0 RF: 0 sennosides-docusate sodium [Stool Softener-Stimulant Laxat] 8.6-50 mg Tablet 2 tab PO BID Qty: 0 RF: 0 warfarin 4 mg Tablet 2 mg PO QODAY RF: 0 warfarin [Jantoven] 3 mg tablet 3 mg PO RF: 0 amlodipine 5 mg tablet 5 mg PO DAILY RF: 0 aspirin 81 mg Capsule 81 mg PO DAILY RF: 0 spironolactone 50 mg tablet 25 mg PO DAILY RF: 0 Primary Care Provider: Castillo Plunkett Referrals: Castillo Plunkett MD [Primary Care Provider] - Disposition Disposition: Transfer to Another Type HCF Discharge Location: [facility] Discharge Date/Time: 10/29/21 07:23
--- NOTE | 2021-10-29 01:38 | EKG12_ITS ---
Test Reason : ABD P;AIN Blood Pressure : / mmHG Vent. Rate : 100 BPM Atrial Rate : 100 BPM P-R Int : 192 ms QRS Dur : 098 ms QT Int : 382 ms P-R-T Axes : 018 -03 040 degrees QTc Int : 492 ms Normal sinus rhythm Left ventricular hypertrophy Prolonged QT Abnormal ECG Confirmed by CORINA SANDS, CARLA ([id number]), graphic editor AWILDA REY ([id number]) on 10/31/2021 11:00:41 AM Referred By: TL Confirmed By:CARLA ARRIAGA MD
[2021-10-29 01:54] LABS: Absolute Lymphocyte Count 0.73 X10^3/uL (0.83-4.51); Absolute Neutrophil Count 16.7 X10^3/uL (2.0-7.7); Basophil# 0.06 X10^3/uL; Basophil% 0.3 % (0-1); Eosinophil# 0.06 X10^3/uL; Eosinophils% 0.3 % (0-5); Hematocrit 43.1 % (40-54); Hemoglobin 14.4 g/dL (13.0-16.5); Lymphocyte # 0.73 X10^3/ul (0.83-4.51); Lymphocyte % 3.7 % (19-41); Mean Corp Hgb Conc 33.4 g/dL (32-36); Mean Corpuscular Hgb 31.4 pg (27.0-32.0); Mean Corpuscular Volume 93.9 fL (80-94); Mean Platelet Vol. 11.1 fl (6.2-12.0); Monocyte# 1.99 X10^3/uL; Monocyte% 10.1 % (0-10); NRBC Flagged by Analyzer 0 % (0-5); Neutrophil # 16.72 X10^3/uL (2.7-7.7); Neutrophil % 84.4 % (47-70); POSITIVE DIFFERENTIAL YES; Platelet Count 200 K/mm3 (150-450); RBC Distribution Width CV 14.3 % (11.6-14.6); RBC Distribution Width SD 49.4 fl (35.1-43.9); Red Blood Count 4.59 M/mm3 (4.6-6.2); White Blood Count 19.8 K/mm3 (4.4-11.0)
[2021-10-29 01:58] LABS: Differential Indicated SCAN CRITERIA MET
[2021-10-29 02:02] LABS: International Normalized Ratio 2.6; Prothrombin Time (Protime)PT. 27.4 SECONDS (11.7-14.9)
[2021-10-29 02:04] LABS: Partial Thromboplast Time 58.9 Seconds (24.1-36.2)
[2021-10-29] MEDS: 0.9% Normal Saline 1,000 ML 1000 ML IV (02:04)
[2021-10-29 02:13] LABS: Differential Comment SCANNED
[2021-10-29 02:29] VITALS: BP 127/78; BP 128/75; PULSE 100; RESP 18; TEMP 36.5; O2SAT 97
[2021-10-29 02:32] LABS: ALB/GLOB Ratio 0.4 RATIO (0.9-2.4); AST(SGOT) 27 U/L (15-37); Alanine Aminotransfer ALT/SGPT < 6 U/L (16-61); Albumin, Serum 1.8 g/dL (3.2-5.0); Alkaline Phosphatase 126 U/L (45-117); Anion Gap 5 (5-15); BUN 17 mg/dL (7-18); BUN/Creat Ratio 21.5 RATIO (10-20); Calcium,Total 9.1 mg/dL (8.5-10.1); Chloride 100 mmol/L (98-107); Creatinine, Serum 0.79 mg/dL (0.70-1.30); EST Glomerular Filtration Rate 100 mL/min (>60); Est Glom Filt Rate - Afr Amer 121 mL/min (>60); Estimated Creatinine Clearance 62.75 ml/min; Globulin 4.5 g/dL (2.2-4.2); Glucose 136 mg/dL (74-106); Lipase 55 U/L (73-393); Potassium 3.5 mmol/L (3.5-5.1); Protein, Total 6.3 g/dL (6.4-8.2); Sodium Level 136 mmol/L (136-145)
[2021-10-29 03:29] VITALS: BP 113/67; PULSE 95; RESP 18; TEMP 36.5; O2SAT 99
[2021-10-29 03:44] LABS: Mucous, Urine 0 SEEN /hpf (<or=2+); Squamous Epithelial Cells - UA 0 SEEN /hpf (0-5)
[2021-10-29 03:45] LABS: Color, Urine Amber (Yellow); Glucose, Dipstick Normal (Normal); Ketone-Dipstick 5 mg/dl (Negative); Leukocyte Esterase-Dipstick 100 /ul (Negative); Nitrite-Dipstick Positive (Negative); Occult Blood-Urine 10 /ul (Negative); Protein-Dipstick 30 mg/dl (Negative); Specific Gravity, Urine 1.015 (1.002-1.030); Urine Clarity Clear (Clear); Urine Urobilinogen 1 mg/dl (Normal)
--- NOTE | 2021-10-29 03:58 | PCM.HP.STD ---
HPI - General General Date of Admission: 10/29/21 Date of Service: 10/29/21 Chief Complaint: Abdominal pain HPI Narrative The patient is an 81 y/o M w/ PMHx: PAF on coumadin, HTN, HLD, PATRCIIA, Hx CVA, Hx COVID-19 illness with associated hypoxia and pneumonia, CKD stage III unclear subtype, CAD s/p CABG, Valvular heart disease s/p AVR, Diabetes mellitus type II, PVD, recent complicated hospitalization history of 08/2021 COVID-19 infection with return 10/06/21 with concern for complete heart block with transfer to [place] eventual felt secondary to BB effects with incidentally noted staph epidermis bacteremia with initial concerns for valve vegetations eventually ruled out discharged on IV cefazolin 2 g every 6 hours and rifampin 300 mg twice daily who presents to the [facility] ED on 10/29/21 from [facility] per his physician secondary to onset abdominal pain, primarily RLQ on the day prior to ED presentation with rising WBC over the last several days with maximum WBC 19 with UA not marked appearing with confusion but no fever or chills prompting ED evaluation. Upon ED arrival the patient reported improvement of his abdominal symptoms but reports that his been intermittent through the day. Work-up in the ED included T 97.7, heart rate 100, BP 120/75, respiratory rate 18, 97% on 2 L nasal cannula, CBC with WBC 19.8, hemoglobin 14.4, platelet 200 with left shift and lymphopenia, coags with PT 27.4, INR 2.6, PTT 58.9, CMP with glucose 136, lactic acid 2.0, total bilirubin 0.80, AST/ALT 27/less than 6, alk phos 126, lipase 55, chest x-ray with worsened patchy airspace disease throughout the right lung as well as increased right effusion with a PICC line in place, CT A/P w/ abnormal appearance of the gallbladder with prominent distention, gallbladder wall thickening and pericholecystic fluid with relation with no definitive stones but finding certainly concerning for acute cholecystitis, blood culture x2 pending per ED, UA pending, UCx pending per ED. ED physician discussed case with Dr. Claros who requested patient be admitted and #1. Acute Cholecystitis: CT A/P w/ abnormal appearance of the gallbladder with prominent distention, gallbladder wall thickening and pericholecystic fluid with relation with no definitive stones but finding certainly concerning for acute cholecystitis, will admit to PCU, GB US requested, will continue ED initiated Surgery consultation, maintain NPO status, maintain on IV PPI, continue IV zosyn as noted. #2. ? Worsening Pneumonia, possible GN, GP organism versus findings primarily consistent to COVID-19 Viral Syndrome w/ Chronic Hypoxic Respiratory failure: Will maintain on home oxygen supplementation, PRN albuterol, maintained on IV Zosyn and Vancomycin w/ de-escalation as able given not certain underlying supperimposed bacterial PNA, HOB, IS parameters w/ pending sputum cultures and urine antigens. Bld cx x 2 obtained in the ED. #3. History of recent staph epidermidis bacteremia: Patient outpatient currently on treatment with IV cefazolin 2 g every 6 hours and rifampin 3 mg twice daily with no history of bowel vegetation on repeat KOKI performed at [place]. #4. History of COVID-19 acute viral syndrome with associated pneumonia and hypoxia: Complicates patient current presentation. Patient required admission 08/2021 with acute respiratory failure at that time associated presentation, discharged following prolonged admission from 09/17/2021 to 09/29/2021. #5. CAD: Status post CABG, will continue metoprolol, statin therapy. Will hold home coumadin w/ transition to heparin drip once INR </=2 given OR needs. #6. Valvular heart disease: Most recent echocardiogram performed at [place] during recent evaluation with initial concerns for vegetation however this was ruled out on repeat. Most recent available echocardiogram results to [facility] 11/01/2018 with noted hyperdynamic LV with LV systolic function 75?5%, [employer] trifecta prosthetic AV apparatus in place. #7. Diabetes mellitus type II: Hold oral home regimen, currently NPO status, maintain on q 6 hour accu checks w/ ISS. #8. Hypertension: Continue home regimen including bumetanide, metoprolol, spironolactone with hold parameters as needed, PRN hydralazine. #9. Hyperlipidemia: We will continue patient on statin therapy. #10. PAF: We will continue patient home metoprolol, hold home coumadin w/ transition to heparin drip once INR </=2 given OR needs. #11. History CVA: Will hypertensive regimen and statin therapy, holding oral diabetic medicine with insulin sliding scale transition as noted. Will hold home coumadin w/ transition to heparin drip once INR </=2 given OR needs. #12. Chronic Kidney Disease Stage II: Admission BUN/Cr 17/0.79, baseline renal function 0.9-1.0 primary, repeat BMP in AM. #13. PATRICIA: We will continue CPAP nightly if amenable. #14. BPH: We will continue patient home Flomax regimen. #15. DVT prophylaxis: SCDs, hold home coumadin w/ transition to heparin drip once INR </=2 given OR needs. FOR[facility]LY [facility], [facility] Medical History Acute respiratory failure with hypoxia Anticoagulated on Coumadin Atherosclerosis of coronary artery of [place] heart without angina pectoris Chronic diastolic (congestive) heart failure Chronic renal insufficiency Constipation COVID-19 (09/11/21) Deafness in left ear Dyspnea Essential (primary) hypertension Fall Generalized weakness Head injury History of CVA (cerebrovascular accident) (2010) Hyperlipidemia Left leg cellulitis Non-rheumatic aortic stenosis Non-ST elevation (NSTEMI) myocardial infarction (10/18/18) Obesity Obstructive sleep apnea Paroxysmal atrial fibrillation Postoperative atrial fibrillation Type 2 diabetes mellitus Ulcer of left lower extremity with fat layer exposed Venous insufficiency of both lower extremities Venous insufficiency of left leg Wears hearing aid in both ears Home Medications multivitamin with minerals 1 tab PO DAILY 10/18/18 [History Last Taken 10/18/18 08:00] metformin 500 mg tablet 500 mg PO DAILY tab 11/08/18 [History Last Taken Unknown] metoprolol tartrate 50 mg PO BID #0 tab 09/14/21 [Rx Last Taken 01/15/19] pseudoephedrine-guaifenesin [Mucinex D] 2 tab PO BID #14 tab 09/14/21 [Rx Last Taken Unknown] bumetanide 1 mg PO DAILY 09/18/21 [History Last Taken Unknown] magnesium oxide 400 mg PO DAILY 09/18/21 [History Last Taken Unknown] silver sulfadiazine 1 applic TOPICAL DAILY 09/18/21 [History Last Taken Unknown] tamsulosin 0.4 mg PO DAILY@1730 09/18/21 [History Last Taken Unknown] acetaminophen [Tylenol] 650 mg PO Q6H PRN PRN #0 tab 09/29/21 [Rx Last Taken Unknown] atorvastatin 20 mg PO QHS #0 tab 02/10/22 [Rx Last Taken Unknown] ipratropium-albuterol 3 ml INHALATION Q2H PRN PRN #0 ml 09/29/21 [Rx Last Taken Unknown] psyllium husk (aspartame) [Daily Fiber (psyllium-aspart)] 1 packet PO BID #0 ea 09/29/21 [Rx Last Taken Unknown] sennosides-docusate sodium [Stool Softener-Stimulant Laxat] 2 tab PO BID #0 tab 09/29/21 [Rx Last Taken Unknown] warfarin 2 mg PO QODAY 10/06/21 [History Last Taken Unknown] warfarin [Jantoven] 3 mg PO 10/06/21 [History Last Taken Unknown] amlodipine 5 mg PO DAILY 10/29/21 [History Last Taken Unknown] aspirin 81 mg PO DAILY 10/29/21 [History Last Taken Unknown] spironolactone 25 mg PO DAILY 10/29/21 [History Last Taken Unknown] Allergy/AdvReac Type Severity Reaction Status Date / Time No Known Allergies Allergy Verified 10/29/21 01:24 Family History (Updated 10/29/21 @ 02:[address] Priya Weinstein MD) Mother Hypertension Heart disease Diabetes Father Hypertension Heart disease Diabetes Kidney disease Surgical History H/O aortic valve replacement (10/29/18) 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) History of cataract surgery History of left heart catheterization (10/21/18) History of tonsillectomy Social History (Updated 10/29/21 @ 02:[address] Priya Weinstein MD) housing: halfway Smoking Status: Never smoker alcohol intake: never substance use type: does not use Vital Signs Vital Signs Vital Signs: 10/29/21 01:19 10/29/21 02:29 10/29/21 03:29 Temperature 98.5 F 97.7 F L 97.7 F L Temperature Source Oral Oral Oral Pulse Rate 106 H 100 95 Respiratory Rate 18 18 18 Blood Pressure 118/77 128/75 H 113/67 Blood Pressure Mean 90 92 82 Pulse Ox 96 97 99 Oxygen Delivery Method Nasal Cannula Nasal Cannula Nasal Cannula Oxygen Flow Rate (L/min) 2 2 2 Weight Weight: 245 lb 2.464 oz Body Mass Index (BMI) 34.2 Results Lab / Micro Data Result Diagrams: 10/29/21 01:35 10/29/21 01:35 Labs: Laboratory Results - last 24 hr 10/29/21 01:35: WBC 19.8 H, RBC 4.59 L, Hgb 14.4, Hct 43.1, MCV 93.9, MCH 31.4, MCHC 33.4, RDW Std Deviation 49.4 H, RDW Coeff of Arnol 14.3, Plt Count 200, MPV 11.1, Immature Gran % (Auto) 1.200 H, Neut % (Auto) 84.4 H, Lymph % (Auto) 3.7 L, [place] % (Auto) 10.1 H, Eos % (Auto) 0.3, Baso % (Auto) 0.3, Absolute Neuts (auto) 16.7 H, Absolute Lymphs (auto) 0.73 L, Nucleated RBC % 0, Differential Comment SCANNED, Diff Path Review December10/29/21 01:35: Sodium 136, Potassium 3.5, Chloride 100, Carbon Dioxide 31.0, Anion Gap 5, BUN 17, Creatinine 0.79, Estim Creat Clear Calc 62.75, Est GFR (MDRD) Af Amer 121, Est GFR (MDRD) Non-Af 100, BUN/Creatinine Ratio 21.5 H, Glucose 136 H, Calcium 9.1, Total Bilirubin 0.80, AST 27, ALT < 6 L, Alkaline Phosphatase 126 H, Total Protein 6.3 L, Albumin 1.8 L, Globulin 4.5 H, Albumin/Globulin Ratio 0.4 L, Lipase 55 L 10/29/21 01:35: Lactic Acid 2.0 10/29/21 01:35: PT 27.4 H, INR 2.6, APTT 58.9 H Radiology Impression Abdomen/Pelvis CT 10/29/21 01:25 IMPRESSION: Abnormal appearance of the gallbladder with prominent distention, gallbladder wall thickening and pericholecystic fluid with inflammation. No definitive stones. Findings concerning for acute cholecystitis. Recommend follow-up ultrasound to further evaluate. Nonobstructing right nephrolith Appendix is not clearly visualized however, no secondary signs of acute appendicitis. Electronically Signed: Familia Peña DO at 3:24 EST , Chest X-Ray 10/29/21 01:25 IMPRESSION: Worsened patchy airspace disease throughout the right lung suggesting infection. Increased right effusion. Right PICC as above Electronically Signed: Familia Peña DO at 3:10 EST ,
[2021-10-29] MEDS: Piperacil/Tazobactam 3.375 GM/50 ML ML IV (04:03)
[2021-10-29 04:28] LABS: Urine Bilirubin Dipstick 1 mg/dL (Negative)
[2021-10-29 04:29] VITALS: BP 122/61; PULSE 97; RESP 18; TEMP 36.5; O2SAT 99
[2021-10-29 04:29] LABS: Bacteria 3+ /hpf (None Seen)
[2021-10-29 04:30] LABS: Red Blood Cells-Urine 0-5 SEEN /hpf (0-5); White Blood Cells 5-10 SEEN /hpf (0-5)
[2021-10-29 05:29] VITALS: BP 128/68; PULSE 87; RESP 16; TEMP 36.1; O2SAT 99
[2021-10-29 05:47] LABS: Reflex Lactate? Y
[2021-10-29 06:29] VITALS: BP 120/67; PULSE 97; RESP 19; TEMP 36.1; O2SAT 99
[2021-10-31 12:50] LABS: Pathologist Review Reviewed
== END 2021-10-29 07:23 | disposition other institution (70) ==
PROVIDERS: Emergency Provider Emergency Medicine; PCP Family Medicine; Visit Provider Emergency Medicine
DX: K81.0 Acute cholecystitis (principal); A41.2 Sepsis due to unspecified staphylococcus; I50.32 Chronic diastolic (congestive) heart failure; I13.0 Hypertensive heart and chronic kidney disease with heart failure and stage 1 through stage 4 chronic kidney disease, or unspecified chronic kidney disease; E11.22 Type 2 diabetes mellitus with diabetic chronic kidney disease; I48.0 Paroxysmal atrial fibrillation; N39.0 Urinary tract infection, site not specified; E78.5 Hyperlipidemia, unspecified; N18.9 Chronic kidney disease, unspecified; I25.10 Atherosclerotic heart disease of native coronary artery without angina pectoris; Z86.16 Personal history of COVID-19; I35.0 Nonrheumatic aortic (valve) stenosis; E66.9 Obesity, unspecified; Z86.73 Personal history of transient ischemic attack (TIA), and cerebral infarction without residual deficits; Z79.01 Long term (current) use of anticoagulants; Z79.82 Long term (current) use of aspirin; Z79.84 Long term (current) use of oral hypoglycemic drugs; Z79.899 Other long term (current) drug therapy; Z95.1 Presence of aortocoronary bypass graft; Z95.2 Presence of prosthetic heart valve; Z68.32 Body mass index [BMI] 32.0-32.9, adult
CPT/HCPCS: 36592; 51702; 71045; 74176; 80053; 81001; 83605; 83690; 85025; 85610; 85730; 87040; 87086; 87811; 93005; 96361; 96365; 99285; J7030; A4216

== ENCOUNTER → 2021-11-07 | Outpatient (REF) | payer SELFPAY ==
[2021-11-07 09:04] LABS: Absolute Neutrophil Count 7.4 X10^3/uL (2.0-7.7); Basophil# 0.08 X10^3/uL; Basophil% 0.8 % (0-1); Eosinophil# 0.41 X10^3/uL; Eosinophils% 4.3 % (0-5); Hematocrit 37.2 % (40-54); Hemoglobin 12.3 g/dL (13.0-16.5); Lymphocyte % 7.4 % (19-41); Mean Corp Hgb Conc 33.1 g/dL (32-36); Mean Corpuscular Hgb 30.3 pg (27.0-32.0); Mean Corpuscular Volume 91.6 fL (80-94); Mean Platelet Vol. 9.8 fl (6.2-12.0); Monocyte# 0.78 X10^3/uL; Monocyte% 8.2 % (0-10); NRBC Flagged by Analyzer 0 % (0-5); Neutrophil # 7.41 X10^3/uL (2.7-7.7); Platelet Count 315 K/mm3 (150-450); RBC Distribution Width CV 14.5 % (11.6-14.6); Red Blood Count 4.06 M/mm3 (4.6-6.2); White Blood Count 9.5 K/mm3 (4.4-11.0)
[2021-11-07 09:05] LABS: International Normalized Ratio 1.3; Prothrombin Time (Protime)PT. 15.1 SECONDS (11.7-14.9)
[2021-11-07 09:18] LABS: ALB/GLOB Ratio 0.4 RATIO (0.9-2.4); AST(SGOT) 43 U/L (15-37); Alanine Aminotransfer ALT/SGPT 26 U/L (16-61); Albumin, Serum 1.8 g/dL (3.2-5.0); Alkaline Phosphatase 140 U/L (45-117); Anion Gap 4 (5-15); BUN 11 mg/dL (7-18); BUN/Creat Ratio 19.1 RATIO (10-20); Calcium,Total 8.4 mg/dL (8.5-10.1); Chloride 104 mmol/L (98-107); Creatinine, Serum 0.58 mg/dL (0.70-1.30); EST Glomerular Filtration Rate 144 mL/min (>60); Est Glom Filt Rate - Afr Amer 175 mL/min (>60); Globulin 4.6 g/dL (2.2-4.2); Glucose 93 mg/dL (74-106); Potassium 4.1 mmol/L (3.5-5.1); Protein, Total 6.4 g/dL (6.4-8.2); Sodium Level 135 mmol/L (136-145)
== END | disposition home or self-care (01) ==
LOC: OLS.WHLTCC 05:00
PROVIDERS: PCP Family Medicine; Visit Provider Family Medicine
DX: I33.0 Acute and subacute infective endocarditis (principal); I50.32 Chronic diastolic (congestive) heart failure; J96.01 Acute respiratory failure with hypoxia; I48.0 Paroxysmal atrial fibrillation; I35.0 Nonrheumatic aortic (valve) stenosis; B95.7 Other staphylococcus as the cause of diseases classified elsewhere
CPT/HCPCS: 36415; 80053; 85025; 85610

== ENCOUNTER → 2021-11-10 | Outpatient (REF) | payer SELFPAY ==
[2021-11-10 06:41] LABS: INR Fingerstick 1.4; Prothrombin Time Fingerstick 16.7 SEC (11.7-14.9)
== END | disposition home or self-care (01) ==
LOC: OLS.WHLTCC 04:00
PROVIDERS: PCP Family Medicine; Visit Provider Family Medicine
DX: I25.10 Atherosclerotic heart disease of native coronary artery without angina pectoris (principal); I50.32 Chronic diastolic (congestive) heart failure; J96.01 Acute respiratory failure with hypoxia; I33.0 Acute and subacute infective endocarditis; I35.0 Nonrheumatic aortic (valve) stenosis; B95.7 Other staphylococcus as the cause of diseases classified elsewhere
CPT/HCPCS: 36416; 85610

== ENCOUNTER → 2021-11-14 | Outpatient (REF) | payer SELFPAY ==
[2021-11-14 08:53] LABS: Absolute Lymphocyte Count 0.84 X10^3/uL (0.83-4.51); Absolute Neutrophil Count 4.5 X10^3/uL (2.0-7.7); Basophil# 0.08 X10^3/uL; Basophil% 1.1 % (0-1); Eosinophil# 0.53 X10^3/uL; Eosinophils% 7.5 % (0-5); Hematocrit 37.7 % (40-54); Hemoglobin 12.5 g/dL (13.0-16.5); Lymphocyte # 0.84 X10^3/ul (0.83-4.51); Lymphocyte % 11.9 % (19-41); Mean Corp Hgb Conc 33.2 g/dL (32-36); Mean Corpuscular Hgb 30.7 pg (27.0-32.0); Mean Corpuscular Volume 92.6 fL (80-94); Mean Platelet Vol. 10.2 fl (6.2-12.0); Monocyte# 1.08 X10^3/uL; Monocyte% 15.3 % (0-10); NRBC Flagged by Analyzer 0 % (0-5); Neutrophil # 4.49 X10^3/uL (2.7-7.7); Neutrophil % 63.4 % (47-70); Platelet Count 309 K/mm3 (150-450); RBC Distribution Width CV 14.5 % (11.6-14.6); RBC Distribution Width SD 49.3 fl (35.1-43.9); Red Blood Count 4.07 M/mm3 (4.6-6.2); White Blood Count 7.1 K/mm3 (4.4-11.0)
[2021-11-14 09:07] LABS: International Normalized Ratio 2.1
[2021-11-14 09:13] LABS: ALB/GLOB Ratio 0.4 RATIO (0.9-2.4); AST(SGOT) 26 U/L (15-37); Alanine Aminotransfer ALT/SGPT 9 U/L (16-61); Albumin, Serum 1.7 g/dL (3.2-5.0); Alkaline Phosphatase 118 U/L (45-117); Anion Gap 5 (5-15); BUN 9 mg/dL (7-18); BUN/Creat Ratio 15.5 RATIO (10-20); Calcium,Total 8.5 mg/dL (8.5-10.1); Chloride 103 mmol/L (98-107); Creatinine, Serum 0.58 mg/dL (0.70-1.30); EST Glomerular Filtration Rate 143 mL/min (>60); Est Glom Filt Rate - Afr Amer 173 mL/min (>60); Globulin 4.4 g/dL (2.2-4.2); Glucose 105 mg/dL (74-106); Protein, Total 6.1 g/dL (6.4-8.2); Sodium Level 137 mmol/L (136-145)
== END | disposition home or self-care (01) ==
LOC: OLS.WHLTCC 04:00
PROVIDERS: PCP Family Medicine; Referring Provider Family Medicine; Visit Provider Family Medicine
DX: I33.0 Acute and subacute infective endocarditis (principal); I50.32 Chronic diastolic (congestive) heart failure; J96.01 Acute respiratory failure with hypoxia; I48.0 Paroxysmal atrial fibrillation; I35.0 Nonrheumatic aortic (valve) stenosis; B95.7 Other staphylococcus as the cause of diseases classified elsewhere
CPT/HCPCS: 36415; 80053; 85025; 85610

== ENCOUNTER → 2021-11-21 | Outpatient (REF) | payer SELFPAY ==
[2021-11-21 08:04] LABS: Absolute Lymphocyte Count 0.71 X10^3/uL (0.83-4.51); Absolute Neutrophil Count 5.3 X10^3/uL (2.0-7.7); Basophil# 0.06 X10^3/uL; Basophil% 0.8 % (0-1); Eosinophil# 0.64 X10^3/uL; Eosinophils% 8.2 % (0-5); Hematocrit 37.3 % (40-54); Hemoglobin 12.1 g/dL (13.0-16.5); Lymphocyte # 0.71 X10^3/ul (0.83-4.51); Lymphocyte % 9.1 % (19-41); Mean Corp Hgb Conc 32.4 g/dL (32-36); Mean Corpuscular Hgb 29.8 pg (27.0-32.0); Mean Corpuscular Volume 91.9 fL (80-94); Monocyte# 1.02 X10^3/uL; Monocyte% 13.1 % (0-10); NRBC Flagged by Analyzer 0 % (0-5); Neutrophil # 5.28 X10^3/uL (2.7-7.7); Platelet Count 237 K/mm3 (150-450); RBC Distribution Width CV 14.6 % (11.6-14.6); RBC Distribution Width SD 49.6 fl (35.1-43.9); Red Blood Count 4.06 M/mm3 (4.6-6.2); White Blood Count 7.8 K/mm3 (4.4-11.0)
[2021-11-21 08:18] LABS: International Normalized Ratio 1.5; Prothrombin Time (Protime)PT. 17.7 SECONDS (11.7-14.9)
[2021-11-21 13:34] LABS: ALB/GLOB Ratio 0.5 RATIO (0.9-2.4); AST(SGOT) 29 U/L (15-37); Alanine Aminotransfer ALT/SGPT 9 U/L (16-61); Albumin, Serum 1.7 g/dL (3.2-5.0); Alkaline Phosphatase 115 U/L (45-117); Anion Gap 8 (5-15); BUN 11 mg/dL (7-18); BUN/Creat Ratio 21.6 RATIO (10-20); Calcium,Total 7.6 mg/dL (8.5-10.1); Chloride 102 mmol/L (98-107); Creatinine, Serum 0.51 mg/dL (0.70-1.30); EST Glomerular Filtration Rate 166 mL/min (>60); Est Glom Filt Rate - Afr Amer 201 mL/min (>60); Globulin 3.7 g/dL (2.2-4.2); Glucose 82 mg/dL (74-106); Potassium 4.4 mmol/L (3.5-5.1); Protein, Total 5.4 g/dL (6.4-8.2); Sodium Level 137 mmol/L (136-145)
== END | disposition home or self-care (01) ==
LOC: OLS.WHLTCC 05:00
PROVIDERS: PCP Family Medicine; Visit Provider Family Medicine
DX: I48.0 Paroxysmal atrial fibrillation (principal); I50.32 Chronic diastolic (congestive) heart failure; J96.01 Acute respiratory failure with hypoxia; I33.0 Acute and subacute infective endocarditis; I35.0 Nonrheumatic aortic (valve) stenosis; B95.7 Other staphylococcus as the cause of diseases classified elsewhere
CPT/HCPCS: 80053; 85025; 85610

== ENCOUNTER → 2021-11-25 | Outpatient (REF) | payer SELFPAY ==
[2021-11-25 14:51] LABS: INR Fingerstick 1.2; Prothrombin Time Fingerstick 14.6 SEC (11.7-14.9)
== END | disposition home or self-care (01) ==
LOC: OLS.WHLTCC 05:00
PROVIDERS: PCP Family Medicine; Visit Provider Family Medicine
DX: I48.0 Paroxysmal atrial fibrillation (principal); I50.32 Chronic diastolic (congestive) heart failure; J96.11 Chronic respiratory failure with hypoxia; I33.0 Acute and subacute infective endocarditis; I35.0 Nonrheumatic aortic (valve) stenosis; K81.0 Acute cholecystitis
CPT/HCPCS: 36416; 85610

== ENCOUNTER → 2021-11-28 | Outpatient (REF) | payer SELFPAY ==
[2021-11-28 09:27] LABS: Absolute Lymphocyte Count 0.92 X10^3/uL (0.83-4.51); Absolute Neutrophil Count 4.8 X10^3/uL (2.0-7.7); Basophil# 0.05 X10^3/uL; Basophil% 0.7 % (0-1); Eosinophil# 0.47 X10^3/uL; Eosinophils% 6.6 % (0-5); Hematocrit 38.6 % (40-54); Hemoglobin 12.5 g/dL (13.0-16.5); Lymphocyte # 0.92 X10^3/ul (0.83-4.51); Mean Corp Hgb Conc 32.4 g/dL (32-36); Mean Corpuscular Volume 92.6 fL (80-94); Monocyte% 11.3 % (0-10); NRBC Flagged by Analyzer 0 % (0-5); Neutrophil % 67.8 % (47-70); Platelet Count 275 K/mm3 (150-450); RBC Distribution Width CV 14.6 % (11.6-14.6); RBC Distribution Width SD 49.1 fl (35.1-43.9); Red Blood Count 4.17 M/mm3 (4.6-6.2); White Blood Count 7.1 K/mm3 (4.4-11.0)
[2021-11-28 09:36] LABS: International Normalized Ratio 1.1
[2021-11-28 09:43] LABS: ALB/GLOB Ratio 0.5 RATIO (0.9-2.4); AST(SGOT) 40 U/L (15-37); Alanine Aminotransfer ALT/SGPT 22 U/L (16-61); Albumin, Serum 2.1 g/dL (3.2-5.0); Alkaline Phosphatase 116 U/L (45-117); Anion Gap 5 (5-15); BUN 9 mg/dL (7-18); BUN/Creat Ratio 11.9 RATIO (10-20); Calcium,Total 8.4 mg/dL (8.5-10.1); Chloride 104 mmol/L (98-107); Creatinine, Serum 0.75 mg/dL (0.70-1.30); EST Glomerular Filtration Rate 106 mL/min (>60); Est Glom Filt Rate - Afr Amer 128 mL/min (>60); Globulin 4.6 g/dL (2.2-4.2); Glucose 125 mg/dL (74-106); Potassium 4.1 mmol/L (3.5-5.1); Protein, Total 6.7 g/dL (6.4-8.2); Sodium Level 138 mmol/L (136-145)
== END | disposition home or self-care (01) ==
LOC: OLS.WHLTCC 05:00
PROVIDERS: PCP Family Medicine; Visit Provider Family Medicine
DX: I48.0 Paroxysmal atrial fibrillation (principal); I50.32 Chronic diastolic (congestive) heart failure; J96.01 Acute respiratory failure with hypoxia; I33.0 Acute and subacute infective endocarditis; I35.0 Nonrheumatic aortic (valve) stenosis; B95.7 Other staphylococcus as the cause of diseases classified elsewhere
CPT/HCPCS: 36415; 80053; 85025; 85610

== ENCOUNTER → 2021-11-29 | Outpatient (REF) | payer SELFPAY ==
[2021-11-29 07:46] LABS: INR Fingerstick 0.8
[2021-11-29 08:00] LABS: Prothrombin Time Fingerstick 10.3 SEC (11.7-14.9)
[2021-11-29 08:42] LABS: International Normalized Ratio 1.2; Prothrombin Time (Protime)PT. 14.5 SECONDS (11.7-14.9)
== END | disposition home or self-care (01) ==
LOC: OLS.WHLTCC 05:00
PROVIDERS: PCP Family Medicine; Visit Provider Family Medicine
DX: I48.0 Paroxysmal atrial fibrillation (principal); I50.32 Chronic diastolic (congestive) heart failure; J96.11 Chronic respiratory failure with hypoxia; I33.0 Acute and subacute infective endocarditis; I35.0 Nonrheumatic aortic (valve) stenosis; K81.0 Acute cholecystitis
CPT/HCPCS: 36415; 36416; 85610

== ENCOUNTER → 2021-11-30 | Outpatient (REF) | payer SELFPAY ==
[2021-11-30 08:05] LABS: INR Fingerstick 1.3
== END | disposition home or self-care (01) ==
LOC: OLS.WHLTCC 04:00
PROVIDERS: PCP Family Medicine; Referring Provider Family Medicine; Visit Provider Family Medicine
DX: I48.0 Paroxysmal atrial fibrillation (principal); I50.32 Chronic diastolic (congestive) heart failure; J96.11 Chronic respiratory failure with hypoxia; I33.0 Acute and subacute infective endocarditis; I35.0 Nonrheumatic aortic (valve) stenosis; K81.0 Acute cholecystitis
CPT/HCPCS: 36416; 85610

== ENCOUNTER → 2021-12-05 | Outpatient (REF) | payer SELFPAY ==
[2021-12-05 08:47] LABS: Absolute Neutrophil Count 4.2 X10^3/uL (2.0-7.7); Basophil# 0.06 X10^3/uL; Basophil% 0.9 % (0-1); Eosinophil# 0.43 X10^3/uL; Eosinophils% 6.5 % (0-5); Hematocrit 36.9 % (40-54); Lymphocyte % 16.5 % (19-41); Mean Corp Hgb Conc 32.5 g/dL (32-36); Mean Corpuscular Hgb 29.9 pg (27.0-32.0); Mean Platelet Vol. 9.5 fl (6.2-12.0); NRBC Flagged by Analyzer 0 % (0-5); Neutrophil # 4.23 X10^3/uL (2.7-7.7); Neutrophil % 63.6 % (47-70); Platelet Count 221 K/mm3 (150-450); RBC Distribution Width CV 14.7 % (11.6-14.6); RBC Distribution Width SD 49.7 fl (35.1-43.9); Red Blood Count 4.01 M/mm3 (4.6-6.2); White Blood Count 6.7 K/mm3 (4.4-11.0)
[2021-12-05 08:55] LABS: International Normalized Ratio 1.6; Prothrombin Time (Protime)PT. 18.4 SECONDS (11.7-14.9)
[2021-12-05 09:11] LABS: ALB/GLOB Ratio 0.5 RATIO (0.9-2.4); AST(SGOT) 23 U/L (15-37); Alanine Aminotransfer ALT/SGPT 16 U/L (16-61); Alkaline Phosphatase 123 U/L (45-117); Anion Gap 6 (5-15); BUN 10 mg/dL (7-18); BUN/Creat Ratio 13.7 RATIO (10-20); Calcium,Total 8.6 mg/dL (8.5-10.1); Chloride 106 mmol/L (98-107); Creatinine, Serum 0.73 mg/dL (0.70-1.30); EST Glomerular Filtration Rate 110 mL/min (>60); Est Glom Filt Rate - Afr Amer 133 mL/min (>60); Globulin 4.2 g/dL (2.2-4.2); Glucose 99 mg/dL (74-106); Potassium 4.1 mmol/L (3.5-5.1); Protein, Total 6.2 g/dL (6.4-8.2); Sodium Level 139 mmol/L (136-145)
== END | disposition home or self-care (01) ==
LOC: OLS.WHLTCC 04:00
PROVIDERS: PCP Family Medicine; Referring Provider Family Medicine; Visit Provider Family Medicine
DX: I48.0 Paroxysmal atrial fibrillation (principal); I50.32 Chronic diastolic (congestive) heart failure; J96.01 Acute respiratory failure with hypoxia; I33.0 Acute and subacute infective endocarditis; I35.0 Nonrheumatic aortic (valve) stenosis; B95.7 Other staphylococcus as the cause of diseases classified elsewhere
CPT/HCPCS: 36415; 80053; 85025; 85610

== ENCOUNTER → 2021-12-12 | Outpatient (REF) | payer SELFPAY ==
[2021-12-12 09:10] LABS: Absolute Lymphocyte Count 1.23 X10^3/uL (0.83-4.51); Absolute Neutrophil Count 5.6 X10^3/uL (2.0-7.7); Basophil# 0.05 X10^3/uL; Basophil% 0.6 % (0-1); Eosinophil# 0.38 X10^3/uL; Eosinophils% 4.6 % (0-5); Hematocrit 35.9 % (40-54); Hemoglobin 11.7 g/dL (13.0-16.5); Lymphocyte # 1.23 X10^3/ul (0.83-4.51); Lymphocyte % 14.8 % (19-41); Mean Corp Hgb Conc 32.6 g/dL (32-36); Mean Corpuscular Hgb 29.6 pg (27.0-32.0); Mean Corpuscular Volume 90.9 fL (80-94); Mean Platelet Vol. 9.8 fl (6.2-12.0); Monocyte# 0.97 X10^3/uL; Monocyte% 11.7 % (0-10); NRBC Flagged by Analyzer 0 % (0-5); Neutrophil # 5.63 X10^3/uL (2.7-7.7); Neutrophil % 67.8 % (47-70); Platelet Count 260 K/mm3 (150-450); RBC Distribution Width CV 14.6 % (11.6-14.6); RBC Distribution Width SD 49.1 fl (35.1-43.9); Red Blood Count 3.95 M/mm3 (4.6-6.2); White Blood Count 8.3 K/mm3 (4.4-11.0)
[2021-12-12 09:28] LABS: ALB/GLOB Ratio 0.6 RATIO (0.9-2.4); AST(SGOT) 24 U/L (15-37); Alanine Aminotransfer ALT/SGPT 17 U/L (16-61); Albumin, Serum 2.3 g/dL (3.2-5.0); Alkaline Phosphatase 94 U/L (45-117); Anion Gap 6 (5-15); BUN 13 mg/dL (7-18); BUN/Creat Ratio 16.3 RATIO (10-20); Calcium,Total 8.6 mg/dL (8.5-10.1); Chloride 103 mmol/L (98-107); EST Glomerular Filtration Rate 99 mL/min (>60); Est Glom Filt Rate - Afr Amer 120 mL/min (>60); Globulin 3.9 g/dL (2.2-4.2); Glucose 90 mg/dL (74-106); Protein, Total 6.2 g/dL (6.4-8.2); Sodium Level 136 mmol/L (136-145)
[2021-12-12 09:29] LABS: International Normalized Ratio 2.1
== END | disposition home or self-care (01) ==
LOC: OLS.WHLTCC 04:00
PROVIDERS: PCP Family Medicine; Referring Provider Family Medicine; Visit Provider Family Medicine
DX: I48.0 Paroxysmal atrial fibrillation (principal); I50.32 Chronic diastolic (congestive) heart failure; J96.01 Acute respiratory failure with hypoxia; I33.0 Acute and subacute infective endocarditis; I35.0 Nonrheumatic aortic (valve) stenosis; B95.7 Other staphylococcus as the cause of diseases classified elsewhere
CPT/HCPCS: 36415; 80053; 85025; 85610

== ENCOUNTER → 2021-12-16 | Outpatient (REF) | payer SELFPAY ==
[2021-12-16 07:59] LABS: Color, Urine Yellow (Yellow); Glucose, Dipstick Normal (Normal); Ketone-Dipstick Negative (Negative); Leukocyte Esterase-Dipstick 500 /ul (Negative); Nitrite-Dipstick Positive (Negative); Occult Blood-Urine 25 /ul (Negative); Protein-Dipstick 30 mg/dl (Negative); Specific Gravity, Urine 1.015 (1.002-1.030); Urine Bilirubin Dipstick Negative (Negative); Urine Clarity Sl. Cloudy (Clear); Urine Urobilinogen Normal (Normal)
== END | disposition home or self-care (01) ==
LOC: OLS.WHLTCC 06:30
PROVIDERS: PCP Family Medicine; Visit Provider Family Medicine
DX: I33.0 Acute and subacute infective endocarditis (principal); I50.32 Chronic diastolic (congestive) heart failure; J96.11 Chronic respiratory failure with hypoxia; I35.0 Nonrheumatic aortic (valve) stenosis; K81.0 Acute cholecystitis; N39.0 Urinary tract infection, site not specified
CPT/HCPCS: 81002; 87077; 87086; 87088; 87186

== ENCOUNTER 2022-02-15 10:05 | Outpatient (RCR) | payer MEDICARE, SELFPAY ==
[2022-02-08 12:01] LABS: International Normalized Ratio 1.5; Prothrombin Time (Protime)PT. 17.7 SECONDS (11.7-14.9)
[2022-02-15 10:40] LABS: International Normalized Ratio 1.6; Prothrombin Time (Protime)PT. 18.3 SECONDS (11.7-14.9)
== END 2022-02-15 23:59 | disposition home or self-care (01) ==
LOC: LAB 10:05
PROVIDERS: PCP Family Medicine; Referring Provider Internal Medicine Cardiovascular Disease; Visit Provider Internal Medicine Cardiovascular Disease
DX: I48.0 Paroxysmal atrial fibrillation (principal); Z79.01 Long term (current) use of anticoagulants
CPT/HCPCS: 36415; 85610

== ENCOUNTER 2022-03-08 10:30 | Outpatient (RCR) | payer MEDICARE, SELFPAY ==
[2022-02-22 11:45] LABS: International Normalized Ratio 1.8; Prothrombin Time (Protime)PT. 20.2 SECONDS (11.7-14.9)
[2022-03-01 11:46] LABS: International Normalized Ratio 1.9; Prothrombin Time (Protime)PT. 21.3 SECONDS (11.7-14.9)
[2022-03-08 12:55] LABS: International Normalized Ratio 1.7; Prothrombin Time (Protime)PT. 19.9 SECONDS (11.7-14.9)
== END 2022-03-19 03:11 | disposition home or self-care (01) ==
LOC: LAB 10:30
PROVIDERS: PCP Family Medicine; Referring Provider Internal Medicine Cardiovascular Disease; Visit Provider Internal Medicine Cardiovascular Disease
DX: I48.0 Paroxysmal atrial fibrillation (principal); Z79.01 Long term (current) use of anticoagulants
CPT/HCPCS: 36415; 85610

== ENCOUNTER 2022-04-19 08:35 | Outpatient (RCR) | payer MEDICARE, SELFPAY ==
[2022-03-22 09:47] LABS: International Normalized Ratio 2.6; Prothrombin Time (Protime)PT. 27.7 SECONDS (11.7-14.9)
[2022-04-12 09:00] LABS: International Normalized Ratio 1.8; Prothrombin Time (Protime)PT. 20.8 SECONDS (11.7-14.9)
[2022-04-12 09:31] LABS: AST(SGOT) 47 U/L (15-37); Alanine Aminotransfer ALT/SGPT 59 U/L (16-61); Albumin, Serum 3.2 g/dL (3.2-5.0); Alkaline Phosphatase 107 U/L (45-117); Bilirubin, Direct 0.23 mg/dL (0.00-0.30); Cholesterol 145 mg/dL (200); Globulin 3.5 g/dL (2.2-4.2); High Density Lipoprotein 46 mg/dL; Protein, Total 6.7 g/dL (6.4-8.2); Triglycerides 115 mg/dL; Very Low Density Lipoprotein 23 mg/dL (5-40)
[2022-04-19 09:53] LABS: International Normalized Ratio 1.8; Prothrombin Time (Protime)PT. 20.9 SECONDS (11.7-14.9)
== END 2022-04-19 18:00 | disposition home or self-care (01) ==
LOC: LAB 08:35
PROVIDERS: Physician Assistant Medical; PCP Family Medicine; Referring Provider Internal Medicine Cardiovascular Disease; Visit Provider Internal Medicine Cardiovascular Disease
DX: I48.0 Paroxysmal atrial fibrillation (principal); Z79.01 Long term (current) use of anticoagulants; E78.00 Pure hypercholesterolemia, unspecified
CPT/HCPCS: 36415; 80061; 80076; 85610

== ENCOUNTER 2022-05-03 09:25 | Outpatient (RCR) | payer MEDICARE, SELFPAY ==
[2022-05-03 10:16] LABS: Prothrombin Time (Protime)PT. 22.6 SECONDS (11.7-14.9)
== END 2022-05-03 18:00 | disposition home or self-care (01) ==
LOC: LAB 09:25
PROVIDERS: PCP Family Medicine; Referring Provider Internal Medicine Cardiovascular Disease; Visit Provider Internal Medicine Cardiovascular Disease
DX: I48.0 Paroxysmal atrial fibrillation (principal); Z79.01 Long term (current) use of anticoagulants
CPT/HCPCS: 36415; 85610

== ENCOUNTER 2022-05-24 11:47 | Outpatient (RCR) | payer MEDICARE, SELFPAY ==
[2022-05-24 12:34] LABS: International Normalized Ratio 2.5; Prothrombin Time (Protime)PT. 26.5 SECONDS (11.7-14.9)
== END 2022-05-24 18:00 | disposition home or self-care (01) ==
LOC: LAB 11:47
PROVIDERS: PCP Family Medicine; Referring Provider Internal Medicine Cardiovascular Disease; Visit Provider Internal Medicine Cardiovascular Disease
DX: I48.0 Paroxysmal atrial fibrillation (principal); Z79.01 Long term (current) use of anticoagulants
CPT/HCPCS: 36415; 85610

== ENCOUNTER 2022-06-21 09:53 | Outpatient (RCR) | payer MEDICARE, SELFPAY ==
[2022-06-21 10:44] LABS: International Normalized Ratio 2.5; Prothrombin Time (Protime)PT. 26.4 SECONDS (11.7-14.9)
== END 2022-07-19 18:00 | disposition home or self-care (01) ==
LOC: LAB 09:53
PROVIDERS: PCP Family Medicine; Referring Provider Internal Medicine Cardiovascular Disease; Visit Provider Internal Medicine Cardiovascular Disease
DX: I48.0 Paroxysmal atrial fibrillation (principal); Z79.01 Long term (current) use of anticoagulants
CPT/HCPCS: 36415; 85610

== ENCOUNTER 2022-07-27 09:58 | Outpatient (RCR) | payer MEDICARE, SELFPAY ==
[2022-07-27 11:20] LABS: International Normalized Ratio 2.5; Prothrombin Time (Protime)PT. 26.6 SECONDS (11.7-14.9)
== END 2022-07-27 18:00 | disposition home or self-care (01) ==
LOC: LAB 09:58
PROVIDERS: PCP Family Medicine; Referring Provider Internal Medicine Cardiovascular Disease; Visit Provider Internal Medicine Cardiovascular Disease
DX: I48.0 Paroxysmal atrial fibrillation (principal); Z79.01 Long term (current) use of anticoagulants
CPT/HCPCS: 36415; 85610

== ENCOUNTER 2022-08-31 13:30 | Outpatient (RCR) | payer MEDICARE, SELFPAY ==
[2022-08-31 14:52] LABS: Prothrombin Time (Protime)PT. 31.1 SECONDS (11.7-14.9)
== END 2022-08-31 15:00 | disposition home or self-care (01) ==
LOC: LAB 13:30
PROVIDERS: PCP Family Medicine; Referring Provider Internal Medicine Cardiovascular Disease; Visit Provider Internal Medicine Cardiovascular Disease
DX: I48.0 Paroxysmal atrial fibrillation (principal); Z79.01 Long term (current) use of anticoagulants
CPT/HCPCS: 36415; 85610

== ENCOUNTER 2022-09-26 08:28 | Outpatient (RCR) | payer MEDICARE, SELFPAY ==
[2022-09-26 10:08] LABS: Prothrombin Time (Protime)PT. 30.7 SECONDS (11.7-14.9)
[2022-09-26 13:27] LABS: AST(SGOT) 23 U/L (15-37); Alanine Aminotransfer ALT/SGPT 35 U/L (16-61); Albumin, Serum 3.5 g/dL (3.2-5.0); Alkaline Phosphatase 85 U/L (45-117); Bilirubin, Direct 0.15 mg/dL (0.00-0.30); Cholesterol 166 mg/dL (200); Globulin 3.3 g/dL (2.2-4.2); High Density Lipoprotein 53 mg/dL; Protein, Total 6.8 g/dL (6.4-8.2); Triglycerides 127 mg/dL; Very Low Density Lipoprotein 25 mg/dL (5-40)
== END 2022-09-26 18:00 | disposition home or self-care (01) ==
LOC: LAB 08:28
PROVIDERS: Physician Assistant Medical; PCP Family Medicine; Referring Provider Internal Medicine Cardiovascular Disease; Visit Provider Internal Medicine Cardiovascular Disease
DX: I48.0 Paroxysmal atrial fibrillation (principal); Z79.01 Long term (current) use of anticoagulants; E78.00 Pure hypercholesterolemia, unspecified
CPT/HCPCS: 36415; 80061; 80076; 85610

== ENCOUNTER 2022-11-02 08:30 | Outpatient (RCR) | payer MEDICARE, SELFPAY ==
[2022-11-02 09:50] LABS: Prothrombin Time (Protime)PT. 30.6 SECONDS (11.7-14.9)
== END 2022-11-17 21:15 | disposition home or self-care (01) ==
LOC: LAB 08:30
PROVIDERS: PCP Family Medicine; Referring Provider Internal Medicine Cardiovascular Disease; Visit Provider Internal Medicine Cardiovascular Disease
DX: I48.0 Paroxysmal atrial fibrillation (principal); Z79.01 Long term (current) use of anticoagulants
CPT/HCPCS: 36415; 85610

== ENCOUNTER 2022-12-04 07:38 | Outpatient (RCR) | payer MEDICARE, SELFPAY ==
[2022-12-04 10:30] LABS: International Normalized Ratio 3.1; Prothrombin Time (Protime)PT. 31.3 SECONDS (11.7-14.9)
== END 2022-12-17 02:20 | disposition home or self-care (01) ==
LOC: LAB 07:38
PROVIDERS: PCP Family Medicine; Referring Provider Internal Medicine Cardiovascular Disease; Visit Provider Internal Medicine Cardiovascular Disease
DX: I48.0 Paroxysmal atrial fibrillation (principal); Z79.01 Long term (current) use of anticoagulants
CPT/HCPCS: 36415; 85610

== ENCOUNTER 2023-01-16 09:57 | Outpatient (RCR) | payer MEDICARE, SELFPAY ==
[2023-01-16 11:34] LABS: International Normalized Ratio 3.2; Prothrombin Time (Protime)PT. 33.1 SECONDS (11.7-14.9)
== END 2023-01-16 11:00 | disposition home or self-care (01) ==
LOC: LAB 09:57
PROVIDERS: PCP Family Medicine; Referring Provider Internal Medicine Cardiovascular Disease; Visit Provider Internal Medicine Cardiovascular Disease
DX: I48.0 Paroxysmal atrial fibrillation (principal); Z79.01 Long term (current) use of anticoagulants
CPT/HCPCS: 36415; 85610

== ENCOUNTER 2023-02-01 11:39 | Outpatient (RCR) | payer MEDICARE, SELFPAY ==
[2023-02-01 12:29] LABS: International Normalized Ratio 2.5; Prothrombin Time (Protime)PT. 27.1 SECONDS (11.7-14.9)
== END 2023-02-01 18:00 | disposition home or self-care (01) ==
LOC: LAB 11:39
PROVIDERS: PCP Family Medicine; Referring Provider Internal Medicine Cardiovascular Disease; Visit Provider Internal Medicine Cardiovascular Disease
DX: I48.0 Paroxysmal atrial fibrillation (principal); Z79.01 Long term (current) use of anticoagulants
CPT/HCPCS: 36415; 85610

== ENCOUNTER 2023-03-15 16:12 | Outpatient (RCR) | payer MEDICARE, SELFPAY ==
[2023-03-15 16:57] LABS: International Normalized Ratio 2.7; Prothrombin Time (Protime)PT. 28.9 SECONDS (11.7-14.9)
== END 2023-03-19 18:00 | disposition home or self-care (01) ==
LOC: LAB 16:12
PROVIDERS: Physician Assistant Medical; PCP Family Medicine; Referring Provider Internal Medicine Cardiovascular Disease; Visit Provider Internal Medicine Cardiovascular Disease
DX: I48.0 Paroxysmal atrial fibrillation (principal); Z79.01 Long term (current) use of anticoagulants
CPT/HCPCS: 36415; 85610

== ENCOUNTER 2023-04-18 09:15 | Outpatient (RCR) | payer MEDICARE, SELFPAY ==
[2023-04-18 09:47] LABS: International Normalized Ratio 2.7; Prothrombin Time (Protime)PT. 28.8 SECONDS (11.7-14.9)
[2023-04-18 10:09] LABS: AST(SGOT) 23 U/L (15-37); Alanine Aminotransfer ALT/SGPT 36 U/L (16-61); Albumin, Serum 3.5 g/dL (3.2-5.0); Alkaline Phosphatase 94 U/L (45-117); Cholesterol 155 mg/dL (200); Globulin 3.3 g/dL (2.2-4.2); High Density Lipoprotein 51 mg/dL; Protein, Total 6.8 g/dL (6.4-8.2); Triglycerides 114 mg/dL; Very Low Density Lipoprotein 23 mg/dL (5-40)
== END 2023-04-18 18:00 | disposition home or self-care (01) ==
LOC: LAB 09:15
PROVIDERS: Physician Assistant Medical; PCP Family Medicine; Referring Provider Internal Medicine Cardiovascular Disease; Visit Provider Internal Medicine Cardiovascular Disease
DX: I48.0 Paroxysmal atrial fibrillation (principal); Z79.01 Long term (current) use of anticoagulants
CPT/HCPCS: 36415; 80061; 80076; 85610

== ENCOUNTER 2023-05-21 11:37 | Outpatient (RCR) | payer MEDICARE, SELFPAY ==
[2023-05-21 12:31] LABS: International Normalized Ratio 2.7; Prothrombin Time (Protime)PT. 28.7 SECONDS (11.7-14.9)
== END 2023-05-21 18:00 | disposition home or self-care (01) ==
LOC: LAB 11:37
PROVIDERS: PCP Family Medicine; Referring Provider Internal Medicine Cardiovascular Disease; Visit Provider Internal Medicine Cardiovascular Disease
DX: I48.0 Paroxysmal atrial fibrillation (principal); Z79.01 Long term (current) use of anticoagulants
CPT/HCPCS: 36415; 85610

== ENCOUNTER 2023-07-16 10:09 | Outpatient (RCR) | payer MEDICARE, SELFPAY ==
[2023-07-02 10:09] LABS: International Normalized Ratio 3.5; Prothrombin Time (Protime)PT. 35.3 SECONDS (11.7-14.9)
[2023-07-16 11:16] LABS: International Normalized Ratio 3.6; Prothrombin Time (Protime)PT. 36.6 SECONDS (11.7-14.9)
== END 2023-07-19 18:00 | disposition home or self-care (01) ==
LOC: LAB 10:09
PROVIDERS: PCP Family Medicine; Referring Provider Internal Medicine Cardiovascular Disease; Visit Provider Internal Medicine Cardiovascular Disease
DX: I48.0 Paroxysmal atrial fibrillation (principal); Z79.01 Long term (current) use of anticoagulants
CPT/HCPCS: 36415; 85610

== ENCOUNTER 2023-08-17 10:51 | Outpatient (RCR) | payer MEDICARE, SELFPAY ==
[2023-07-23 10:27] LABS: International Normalized Ratio 3.7; Prothrombin Time (Protime)PT. 36.9 SECONDS (11.7-14.9)
[2023-07-30 10:38] LABS: International Normalized Ratio 1.8; Prothrombin Time (Protime)PT. 21.4 SECONDS (11.7-14.9)
[2023-08-06 10:43] LABS: International Normalized Ratio 1.7; Prothrombin Time (Protime)PT. 19.8 SECONDS (11.7-14.9)
[2023-08-17 12:16] LABS: International Normalized Ratio 1.7; Prothrombin Time (Protime)PT. 20.5 SECONDS (11.7-14.9)
== END 2023-08-19 18:00 | disposition home or self-care (01) ==
LOC: LAB 10:51
PROVIDERS: PCP Family Medicine; Referring Provider Internal Medicine Cardiovascular Disease; Visit Provider Internal Medicine Cardiovascular Disease
DX: I48.0 Paroxysmal atrial fibrillation (principal); Z79.01 Long term (current) use of anticoagulants
CPT/HCPCS: 36415; 85610

== ENCOUNTER 2023-09-10 10:31 | Outpatient (RCR) | payer MEDICARE, SELFPAY ==
[2023-08-27 11:32] LABS: International Normalized Ratio 2.3; Prothrombin Time (Protime)PT. 25.5 SECONDS (11.7-14.9)
[2023-09-10 11:07] LABS: International Normalized Ratio 2.4; Prothrombin Time (Protime)PT. 26.3 SECONDS (11.7-14.9)
== END 2023-09-10 18:00 | disposition home or self-care (01) ==
LOC: LAB 10:31
PROVIDERS: PCP Family Medicine; Referring Provider Internal Medicine Cardiovascular Disease; Visit Provider Internal Medicine Cardiovascular Disease
DX: I48.0 Paroxysmal atrial fibrillation (principal); Z79.01 Long term (current) use of anticoagulants
CPT/HCPCS: 36415; 85610

== ENCOUNTER 2023-10-08 10:07 | Outpatient (RCR) | payer MEDICARE, SELFPAY ==
[2023-10-08 11:23] LABS: International Normalized Ratio 2.7; Prothrombin Time (Protime)PT. 28.9 SECONDS (11.7-14.9)
== END 2023-10-18 18:00 | disposition home or self-care (01) ==
LOC: LAB 10:07
PROVIDERS: PCP Family Medicine; Referring Provider Internal Medicine Cardiovascular Disease; Visit Provider Internal Medicine Cardiovascular Disease
DX: I48.0 Paroxysmal atrial fibrillation (principal); Z79.01 Long term (current) use of anticoagulants
CPT/HCPCS: 36415; 85610

== ENCOUNTER 2023-11-08 10:36 | Outpatient (RCR) | payer MEDICARE, SELFPAY ==
[2023-11-08 11:37] LABS: International Normalized Ratio 2.3; Prothrombin Time (Protime)PT. 24.8 SECONDS (11.7-14.9)
== END 2023-11-18 01:28 | disposition home or self-care (01) ==
LOC: LAB 10:36
PROVIDERS: PCP Family Medicine; Referring Provider Internal Medicine Cardiovascular Disease; Visit Provider Internal Medicine Cardiovascular Disease
DX: I48.0 Paroxysmal atrial fibrillation (principal); Z79.01 Long term (current) use of anticoagulants
CPT/HCPCS: 36415; 85610

== ENCOUNTER 2023-12-10 07:48 | Outpatient (RCR) | payer MEDICARE, SELFPAY ==
[2023-12-10 08:50] LABS: International Normalized Ratio 2.4; Prothrombin Time (Protime)PT. 26.2 SECONDS (11.7-14.9)
== END 2023-12-18 23:55 | disposition home or self-care (01) ==
LOC: LAB 07:48
PROVIDERS: PCP Family Medicine; Referring Provider Internal Medicine Cardiovascular Disease; Visit Provider Internal Medicine Cardiovascular Disease
DX: I48.0 Paroxysmal atrial fibrillation (principal); Z79.01 Long term (current) use of anticoagulants
CPT/HCPCS: 36415; 85610

== ENCOUNTER → 2023-12-19 | Outpatient (CLI) | payer MEDICARE, SELFPAY ==
--- NOTE | 2023-12-19 12:52 | ECHOCS_ITS ---
Reason For Study: AVR, CABG Left Ventricle Normal LV size. Mild concentric left ventricular hypertrophy. The estimated ejection fraction is 65 %. Stage 1 diastolic dysfunction. No regional wall motion abnormalities noted. Right Ventricle Normal RV size. Normal systolic function. Atria The left atrium is mildly enlarged. Normal right atrium. Mitral Valve Normal mitral valve. Tricuspid Valve Normal tricuspid valve. Mild to moderate (1-2+) tricuspid valve insufficiency. Pulmonary artery systolic pressure is 38 mmHg. Aortic Valve Peak aortic valve gradient 30 mmHg. Mean aortic valve gradient 17 mmHg. Bioprosthetic aortic valve. Pulmonic Valve Normal pulmonic valve. Great Vessels Normal aortic root. The pulmonary artery is normal size. Inferior vena cava collapse with respiration. Pericardium/Pleural No pericardial effusion. MMode/2D Measurements & Calculations LVIDd: 4.3 cm IVSd: 1.6 cm LVOT diam: 2.0 cm LVIDs: 2.6 cm LVPWd: 1.2 cm LVOT area: 3.1 cm2 RVDd: 3.9 cm FS: 39.0 % Ao root diam: 3.6 cm LAV(MOD-bp): 66.7 ml LVAd ap4: 29.4 cm2 LAV(MOD-bp) Indexed: 28.1 ml/m2 LVLd ap4: 8.6 cm LAV(MOD-sp2): 70.7 ml EDV(MOD-sp4): 83.7 ml LAV(MOD-sp4): 61.4 ml EDV(sp4-el): 85.8 ml LVAs ap4: 14.8 cm2 LVLs ap4: 7.2 cm ESV(MOD-sp4): 25.1 ml ESV(sp4-el): 25.9 ml EF(MOD-sp4): 70.0 % EF(sp4-el): 69.9 % SV(MOD-sp4): 58.5 ml SV(sp4-el): 60.0 ml LA A4 area: 23.7 cm2 LA dimension(2D): 4.9 cm RA A4 area: 19.1 cm2 Time Measurements MV dec time: 0.41 sec Doppler Measurements & Calculations MV E max michael: 130.2 cm/sec Lat Peak E' Michael: 5.6 cm/sec Med Peak E' Michael: 5.5 cm/sec MV A max michael: 170.7 cm/sec E/E' lat: 23.2 E/E' med: 23.8 MV E/A: 0.76 MV V2 max: 185.3 cm/sec MV P1/2t max michael: 142.2 cm/sec Ao V2 max: 272.6 cm/sec MV max P.7 mmHg MV P1/2t: 114.0 msec Ao max P.9 mmHg MV V2 mean: 115.9 cm/sec Ao V2 mean: 192.9 cm/sec MV mean P.9 mmHg MV dec slope: 365.3 cm/sec2 Ao mean P.7 mmHg MV V2 VTI: 53.7 cm MVA(P1/2t): 1.9 cm2 Ao V2 VTI: 61.4 cm AV (velocity ratio): 0.49 MVA(VTI): 1.7 cm2 JAMAR(I,D): 1.5 cm2 JAMAR(V,D): 1.6 cm2 LV V1 max: 138.6 cm/sec SV(LVOT): 93.7 ml PA V2 max: 109.2 cm/sec LV V1 max P.7 mmHg PA V2 mean: 70.3 cm/sec LV V1 mean P.6 mmHg LV V1 mean: 101.8 cm/sec LV V1 VTI: 30.2 cm TR max michael: 293.1 cm/sec TR max P.4 mmHg ECHO/Echo Complete W/ Contrast Interpretation Summary Normal LV size. The estimated ejection fraction is 65 %. Stage 1 diastolic dysfunction. Mild concentric left ventricular hypertrophy. Bioprosthetic aortic valve. Contrast injection was performed. Ordering Physician: Rustam Kebede Referring Physician: laura ledezma Performed By: Nabila Simon RDCS
== END | disposition home or self-care (01) ==
LOC: CVS 12:49
PROVIDERS: PCP Family Medicine; Referring Provider Internal Medicine Cardiovascular Disease; Visit Provider Internal Medicine Cardiovascular Disease
DX: Z95.2 Presence of prosthetic heart valve (principal)
CPT/HCPCS: 93306; Q9957; A4216; C8929

== ENCOUNTER 2024-01-15 10:03 | Outpatient (RCR) | payer MEDICARE, SELFPAY ==
[2024-01-15 10:54] LABS: International Normalized Ratio 2.2; Prothrombin Time (Protime)PT. 24.1 SECONDS (11.7-14.9)
== END 2024-01-15 18:00 | disposition home or self-care (01) ==
LOC: LAB 10:03
PROVIDERS: PCP Family Medicine; Referring Provider Internal Medicine Cardiovascular Disease; Visit Provider Internal Medicine Cardiovascular Disease
DX: I48.0 Paroxysmal atrial fibrillation (principal); Z79.01 Long term (current) use of anticoagulants
CPT/HCPCS: 36415; 85610

== ENCOUNTER 2024-02-15 09:21 | Outpatient (RCR) | payer MEDICARE, SELFPAY ==
[2024-02-15 10:13] LABS: International Normalized Ratio 1.8; Prothrombin Time (Protime)PT. 20.5 SECONDS (11.7-14.9)
== END 2024-02-15 18:00 | disposition home or self-care (01) ==
LOC: LAB 09:21
PROVIDERS: PCP Family Medicine; Referring Provider Internal Medicine Cardiovascular Disease; Visit Provider Internal Medicine Cardiovascular Disease
DX: I48.0 Paroxysmal atrial fibrillation (principal); Z79.01 Long term (current) use of anticoagulants; I48.92 Unspecified atrial flutter
CPT/HCPCS: 36415; 85610

== ENCOUNTER 2024-02-25 08:57 | Outpatient (RCR) | payer MEDICARE, SELFPAY ==
[2024-02-25 10:37] LABS: International Normalized Ratio 2.3
== END 2024-03-19 18:00 | disposition home or self-care (01) ==
LOC: LAB 08:57
PROVIDERS: PCP Family Medicine; Referring Provider Internal Medicine Cardiovascular Disease; Visit Provider Internal Medicine Cardiovascular Disease
DX: I48.0 Paroxysmal atrial fibrillation (principal); Z79.01 Long term (current) use of anticoagulants; I48.92 Unspecified atrial flutter
CPT/HCPCS: 36415; 85610

== ENCOUNTER 2024-03-25 09:29 | Outpatient (RCR) | payer MEDICARE, SELFPAY ==
[2024-03-25 10:05] LABS: International Normalized Ratio 2.4; Prothrombin Time (Protime)PT. 25.8 SECONDS (11.7-14.9)
== END 2024-03-25 18:00 | disposition home or self-care (01) ==
LOC: LAB 09:29
PROVIDERS: PCP Family Medicine; Referring Provider Internal Medicine Cardiovascular Disease; Visit Provider Internal Medicine Cardiovascular Disease
DX: I48.0 Paroxysmal atrial fibrillation (principal); Z79.01 Long term (current) use of anticoagulants; I48.92 Unspecified atrial flutter
CPT/HCPCS: 36415; 85610

== ENCOUNTER 2024-04-23 08:28 | Outpatient (RCR) | payer MEDICARE, SELFPAY ==
[2024-04-23 09:22] LABS: International Normalized Ratio 2.4; Prothrombin Time (Protime)PT. 25.9 SECONDS (11.7-14.9)
== END 2024-04-23 18:00 | disposition home or self-care (01) ==
LOC: LAB 08:28
PROVIDERS: PCP Family Medicine; Referring Provider Internal Medicine Cardiovascular Disease; Visit Provider Internal Medicine Cardiovascular Disease
DX: I48.0 Paroxysmal atrial fibrillation (principal); Z79.01 Long term (current) use of anticoagulants; I48.92 Unspecified atrial flutter
CPT/HCPCS: 36415; 85610

== ENCOUNTER 2024-05-28 11:44 | Outpatient (RCR) | payer MEDICARE, SELFPAY ==
[2024-05-28 12:15] LABS: International Normalized Ratio 2.1
== END 2024-05-28 18:00 | disposition home or self-care (01) ==
LOC: LAB 11:44
PROVIDERS: PCP Family Medicine; Referring Provider Internal Medicine Cardiovascular Disease; Visit Provider Internal Medicine Cardiovascular Disease
DX: I48.0 Paroxysmal atrial fibrillation (principal); Z79.01 Long term (current) use of anticoagulants; I48.92 Unspecified atrial flutter
CPT/HCPCS: 36415; 85610

== ENCOUNTER 2024-07-21 09:44 | Outpatient (RCR) | payer MEDICARE, SELFPAY ==
[2024-07-21 10:21] LABS: International Normalized Ratio 2.9; Prothrombin Time (Protime)PT. 30.2 SECONDS (11.7-14.9)
== END 2024-07-21 18:00 | disposition home or self-care (01) ==
LOC: LAB 09:44
PROVIDERS: PCP Family Medicine; Referring Provider Internal Medicine Cardiovascular Disease; Visit Provider Internal Medicine Cardiovascular Disease
DX: I48.0 Paroxysmal atrial fibrillation (principal); Z79.01 Long term (current) use of anticoagulants
CPT/HCPCS: 36415; 85610

== ENCOUNTER 2024-09-03 11:03 | Outpatient (RCR) | payer MEDICARE, SELFPAY ==
[2024-09-03 11:48] LABS: International Normalized Ratio 2.1
== END 2024-09-03 18:00 | disposition home or self-care (01) ==
LOC: LAB 11:03
PROVIDERS: PCP Family Medicine; Referring Provider Internal Medicine Cardiovascular Disease; Visit Provider Internal Medicine Cardiovascular Disease
DX: I48.0 Paroxysmal atrial fibrillation (principal); Z79.01 Long term (current) use of anticoagulants
CPT/HCPCS: 36415; 85610

== ENCOUNTER 2024-10-21 09:50 | Outpatient (RCR) | payer MEDICARE, SELFPAY ==
[2024-10-21 10:30] LABS: International Normalized Ratio 2.3; Prothrombin Time (Protime)PT. 25.6 SECONDS (11.7-14.9)
== END 2024-10-21 18:00 | disposition home or self-care (01) ==
LOC: LAB 09:50
PROVIDERS: PCP Family Medicine; Referring Provider Internal Medicine Cardiovascular Disease; Visit Provider Internal Medicine Cardiovascular Disease
DX: I48.0 Paroxysmal atrial fibrillation (principal); Z79.01 Long term (current) use of anticoagulants; I48.92 Unspecified atrial flutter
CPT/HCPCS: 36415; 85610

== ENCOUNTER 2024-12-23 08:39 | Outpatient (RCR) | payer MEDICARE, SELFPAY ==
[2024-12-23 10:02] LABS: Prothrombin Time (Protime)PT. 32.2 SECONDS (11.7-14.9)
== END 2024-12-23 18:00 | disposition home or self-care (01) ==
LOC: LAB 08:39
PROVIDERS: PCP Family Medicine; Referring Provider Internal Medicine Cardiovascular Disease; Visit Provider Internal Medicine Cardiovascular Disease
DX: I48.0 Paroxysmal atrial fibrillation (principal); Z79.01 Long term (current) use of anticoagulants; I48.92 Unspecified atrial flutter
CPT/HCPCS: 36415; 85610

== ENCOUNTER 2025-01-26 09:46 | Outpatient (RCR) | payer MEDICARE, SELFPAY ==
[2025-01-26 10:32] LABS: International Normalized Ratio 2.4; Prothrombin Time (Protime)PT. 26.4 SECONDS (11.7-14.9)
== END 2025-01-26 18:00 | disposition home or self-care (01) ==
LOC: LAB 09:46
PROVIDERS: PCP Family Medicine; Referring Provider Internal Medicine Cardiovascular Disease; Visit Provider Internal Medicine Cardiovascular Disease
DX: I48.0 Paroxysmal atrial fibrillation (principal); Z79.01 Long term (current) use of anticoagulants
CPT/HCPCS: 36415; 85610

== ENCOUNTER 2025-03-13 10:46 | Outpatient (RCR) | payer MEDICARE, SELFPAY ==
[2025-03-13 11:20] LABS: Prothrombin Time (Protime)PT. 24.2 SECONDS (11.7-14.9)
== END 2025-03-19 21:34 | disposition home or self-care (01) ==
LOC: LAB 10:46
PROVIDERS: PCP Family Medicine; Referring Provider Internal Medicine Cardiovascular Disease; Visit Provider Internal Medicine Cardiovascular Disease
DX: Z79.01 Long term (current) use of anticoagulants
CPT/HCPCS: 36415; 85610

== ENCOUNTER 2025-04-27 10:47 | Outpatient (RCR) | payer MEDICARE, SELFPAY ==
[2025-04-27 11:28] LABS: Prothrombin Time (Protime)PT. 26.6 SECONDS (11.7-14.9)
== END 2025-05-19 18:00 | disposition home or self-care (01) ==
LOC: LAB 10:47
PROVIDERS: PCP Family Medicine; Referring Provider Internal Medicine Cardiovascular Disease; Visit Provider Internal Medicine Cardiovascular Disease
DX: I48.0 Paroxysmal atrial fibrillation (principal); Z79.01 Long term (current) use of anticoagulants
CPT/HCPCS: 36415; 85610

== ENCOUNTER 2025-06-22 09:03 | Outpatient (RCR) | payer MEDICARE, SELFPAY ==
[2025-06-22 10:20] LABS: Prothrombin Time (Protime)PT. 27.0 SECONDS (11.7-14.9)
== END 2025-07-19 18:00 | disposition home or self-care (01) ==
LOC: LAB 09:03
PROVIDERS: PCP Family Medicine; Referring Provider Internal Medicine Cardiovascular Disease; Visit Provider Internal Medicine Cardiovascular Disease
DX: I48.0 Paroxysmal atrial fibrillation (principal); Z79.01 Long term (current) use of anticoagulants; I48.92 Unspecified atrial flutter
CPT/HCPCS: 36415; 85610

== ENCOUNTER → 2025-07-31 | Outpatient (CLI) | payer MEDICARE, SELFPAY ==
--- NOTE | 2025-07-31 06:55 | ECHOCS_ITS ---
Reason For Study Reason For Study: SOB Procedure This was a 2D Doppler, Color Flow transthoracic echocardiogram. The study was technically difficult. Contrast injection was performed. Exam performed in department. Left Ventricle Normal LV size. Left ventricular systolic function is normal. The left ventricular ejection fraction is 60 %. Resting LV gradient 56 mmHg. No regional wall motion abnormalities noted. Right Ventricle Normal RV size. Normal systolic function. Atria Normal left atrium. Normal right atrium. Mitral Valve There is moderate mitral annular calcification. Tricuspid Valve Normal tricuspid valve. Aortic Valve Peak aortic valve gradient 29 mmHg. Mean aortic valve gradient 18 mmHg. Bioprosthetic aortic valve. Pulmonic Valve The pulmonic valve is not well visualized. Great Vessels Mildly dilated aortic root. The pulmonary artery is normal size. Inferior vena cava collapse with respiration. Pericardium/Pleural No pericardial effusion. Medication Diluted definity 4ml given slow IV push to enhance endocardial definition. MMode/2D Measurements & Calculations LVOT diam: 2.0 cm Ao root diam: 4.0 cm LA dimension(2D): 4.9 cm LVOT area: 3.1 cm2 Time Measurements MV dec time: 0.33 sec Doppler Measurements & Calculations MV E max michael: 109.8 cm/sec Lat Peak E' Michael: 7.7 cm/sec Med Peak E' Michael: 5.4 cm/sec MV A max michael: 189.0 cm/sec E/E' lat: 14.3 E/E' med: 20.2 MV E/A: 0.58 MV V2 max: 184.9 cm/sec MV dec slope: 331.3 cm/sec2 Ao V2 max: 268.9 cm/sec MV max P.7 mmHg Ao max P.9 mmHg MV V2 mean: 102.4 cm/sec Ao V2 mean: 203.3 cm/sec MV mean P.0 mmHg Ao mean P.1 mmHg MV V2 VTI: 49.7 cm Ao V2 VTI: 63.3 cm MVA(VTI): 2.7 cm2 AV (velocity ratio): 0.69 JAMAR(I,D): 2.1 cm2 JAMAR(V,D): 1.7 cm2 LV V1 max: 147.7 cm/sec SV(LVOT): 135.9 ml PA V2 max: 92.0 cm/sec LV V1 max P.7 mmHg PA V2 mean: 63.4 cm/sec LV V1 mean P.5 mmHg LV V1 mean: 124.8 cm/sec LV V1 VTI: 43.9 cm TR max michael: 276.6 cm/sec TR max P.6 mmHg ECHO/Echo Complete W/ Contrast Interpretation Summary Normal LV size. Left ventricular systolic function is normal. The left ventricular ejection fraction is 60 %. Resting LV gradient 56 mmHg. Bioprosthetic aortic valve. Mean aortic valve gradient 18 mmHg. Contrast injection was performed. Ordering Physician: Renato Romo Referring Physician: Demiter, Renato Performed By: Marii Hernandez RCS
--- OUTSIDE RECORDS SUMMARY | 2025-07-31 07:00 | XMS RPT_ITS | CCD ---
Author Organization [facility] Care Team Providers Care Folded Towel Machine Operator Name Role Phone PHYSICIAN, NOT RECORDED Primary Care Physician U wendie Yarbrough MD, Latonia Hinojosa Primary Care Provider [phone] Un[address] Sanju Yarbrough Primary Care Provider Dr. Christian Smith Emergency Provider 1([facility])[phone] Jessy Hemphill Admit Provider Dr. Jessy Hemphill Attending Provider 1([facility])[phone] Jessy Hemphill Other Provider Dr. Franko Spann Attending Provider 1([facility])[phone] Dr. Franko Spann Other Provider 1([facility])[phone] Rustam Kebede Attending Provider 1([facility])[phone] Jessy Hemphill Referring Provider 1([facility])[phone]. Sanju Yarbrough Attending Provider 1([facility])[phone] Dr. Arleen Roque Emergency Provider 1([facility])[phone] Dr. Constantino Johansen Admit Provider 1([facility])[phone] Nicky Oneal Other Provider 1([facility])[phone] Juan Antonio Currie Other Provider Dr. Brannon Aguero Attending Provider 1([facility])[phone] Brannon Aguero Other Provider Bradley LEA, AUTOMATED PROCESS OPERATOR-C Niki Other Provider Dr. Nicky Oneal Attending Provider [phone] Dr. Juan Antonio Currie Attending Provider 1([facility])[phone] Johnathan Ferro Other Provider Dr. Aden Rodríguez Other Provider Dr. Aden Rodríguez Attending Provider 1([facility])[phone] Remi, Dr. Fletcher Other Provider 1([facility])-[phone] Remi, Dr. Fletcher Attending Provider 1([facility]) [phone] Dr. Franko Spann Referring Provider 1([facility])[phone] Dr. Sanju Yarbrough Primary Care Provider Dr. Arleen Roque Emergency Provider 1([facility])[phone] Dr. Constantino Johansen Admit Provider Dr. Johnathan Ferro Other Provider 1([facility])[phone] Dr. Juan Antonio Currie Other Provider Dr. Brannon Aguero Attending Provider 1([facility])[phone] Brannon Aguero Other Provider Huerta AUTOMATED PROCESS OPERATOR, AUTOMATED PROCESS OPERATOR-C Niki Other Provider Remi, Dr. Fletcher Other Provider 1([facility])-[phone] Franko Spann Other Provider 1([facility])[phone] Franko Spann Attending Provider 1([facility])[phone] Sanju Yarbrough Primary Care Provider Dr. Sanju Yarbrough Referring Provider 1([facility])[phone] Rustam Kebede Attending Provider 1([facility])[phone] Latonia Yarbrough MD Primary Care Provider 1([facility] )[phone] Yandy, Rustam S Unavailable Latonia Yarbrough MD Primary Care Provider Yandy, Rustam S Unavailable Latonia Yarbrough MD Primary Care Provider Yandy, Rustam S Unavailable Dr. Sanju Yarbrough Primary Care Provider Dr. Sanju Yarbrough Referring Provider 1([facility])[phone] [facility] AUTOMATED PROCESS OPERATOR, AUTOMATED PROCESS OPERATOR-C Castillo Figueroa Attending Provider 1([facility])[phone] Dr. Sanju Yarbrough Primary Care Provider Dr. Sanju Yarbrough Referring Provider Denis AUTOMATED PROCESS OPERATOR, AUTOMATED PROCESS OPERATOR-Brittani Figueroa Attending Provider Yandy, [place] S Unavailable Dr. Sanju Yarbrough Primary Care Provider Dr. Sanju Yarbrough Referring Provider Denis AUTOMATED PROCESS OPERATOR, AUTOMATED PROCESS OPERATOR-C Castillo Figueroa Attending Provider Yandy SANDS, Rustam S Unavailable Dr. Sanju Yarbrough Primary Care Provider Dr. Sanju Yarbrough Referring Provider Dr. Rustam Kebede Attending Provider Cheryl SANDS, Latonia Hinojosa Primary Care Provider Miguel AUTOMATED PROCESS OPERATOR, AUTOMATED PROCESS OPERATORAndre Al Attending Provider Celena GED PREPARATION TEACHER.EXECUTIVE CREATIVE DIRECTOR, Rebeca Unavailable Yandy SANDS, Dr. Easton Attending Provider [phone] Yandy SANDS, Dr. Easton Referring Provider [phone] Cheryl SANDS, Dr. Bills Primary Care Provider Reanna Bobby Other Provider Dr. Rustam Kebede MD Attending Provider Dr. Rustam Kebede MD Referring Provider [phone] Cheryl SANDS, Dr. Bills Primary Care Provider Reanna Bobby Other Provider [phone] Cheryl SANDS, Dr. Bills Referring Provider Yandy SANDS, Dr. Easton Attending Provider [phone] Yandy SANDS, Dr. Easton Referring Provider [phone] Cheryl SANDS, Dr. Bills Primary Care Provider Reanna Bobby Other Provider Yandy SANDS, Dr. Easton Attending Physician Yandy SANDS, Dr. Easton Referring Provider Cheryl SANDS, Dr. Bills Primary Care Physician Reanna Bobby Nurse Practitioner Yandy, Rustam Attending Unavailable [place]ak, Sanju Referring Unavailable [place]ak, Sanju Primary Care Unavailable Yandy, Rustam Attending Unavailable Yandy, [place] Referring Unavailable [place], Sanju Primary Care Unavailable Reanna Jasso Consulting Unavailabl e Yandy, [place] Attending Unavailable Yandy, [place] Referring Unavailable [place], Sanju Primary Care Unavailable Reanna Jasso Consulting Unavailabl e Yandy, [place] Attending Unavailable Yandy, Rustam Referring Unavailable [place], [place] Primary Care Unavailable Reanna Jasso Consulting Unavailabl e Yandy, [place] Attending Unavailable Yandy, [place] Referring Unavailable [place], Sanju Primary Care Unavailable Reanna Jasso Consulting Unavailabl e Yandy, Rustam Attending Unavailable Yandy, [place] Referring Unavailable [place], [place] Primary Care Unavailable Reanna Jasso Consulting Unavailabl e Yandy, Rustam Attending Unavailable Yandy, Rustam Referring Unavailable [place], Sanju Primary Care Unavailable Reanna Jasso Consulting Unavailabl e Yandy, [place] Attending Unavailable Yandy, Rustam Referring Unavailable [place], Sanju Primary Care Unavailable Reanna Jasso Consulting Unavailabl e Yandy, Rustam Attending Unavailable Yandy, Rustam Referring Unavailable [place], Sanju Primary Care Unavailable Reanna Jasso Consulting Unavailabl e LATONIA YARBROUGH R Referring Unavailable LATONIA YARBROUGH R Primary Care Unavailable LATONIA YARBROUGH R Referring Unavailable REINATAKLATONIA R Primary Care Unavailable Medications Current Medications Medication Drug Class(es) Dates Sig (Normalized) Sig (Original) acetaminophen 325 mg oral capsule (20 sources) Start: 10-06-2021 Tylenol 325 mg oral capsule Dose : 650 mg = 2 cap(s), Oral, q6hr, PRN as needed for pain, # 20 cap(s), 0 Refill(s) Start Date: 10/06/21 Status: Ordered Start: 09-29-2021 take 1-10 tablets by mouth every six hours as needed for pain Start: 09-29-2021 take 2 tablets by mo uth every six hours as needed Acetaminophen (Tylenol) 325 mg Tablet Active 650 MG PO EVERY 6 HOURS NEEDED 0 September 29, 2021 1:00am Start: 11-08-2018 End: 11-29-2018 take 2 tablets by mouth every six hours as needed Acetaminophen 325 mg tablet Discontinued 650 mg PO EVERY 6 HOURS as needed November 08, 2018 12:00am November 29, 2018 10:21am Start: 11-08-2018 End: 11-29-2018 take 650 mg by mouth every six hours Acetaminophen Discontinued 650 MG PO EVERY 6 HOURS November 08, 2018 12:00am November 29, 2018 10:21am albuterol 0.833 mg/ml / ipratropium bromide 0.167 mg/ml inhalation solution (20 sources) Anticholinergic, beta2-Adrenergic Agonist Start: 10-06-2021 take 1 dose by inhalation every two hours as needed for wheezing albuterol-ipratropium 2.5 mg-0.5 mg/3 mL inhalation solution Dose = 3 mL, Inhalation, q2h, PRN Wheezing, # 30 EA, 0 Refill(s) Start Date: 10/06/21 Status: Ordered Start: 09-29-2021 End: 03-16-2022 take 1 mL by inhalation every two hours as needed for wheezing Ipratropium-Albuterol 0.5 mg-3 mg(2.5 mg base)/3 mL Solution For Nebulization Discontinued 3 mL INHALATION EVERY 2 HOURS NEEDED as needed for SOB/WHEEZING 0 0 September 29, 2021 1:00am March 16, 2022 10:20am Start: 09-29-2021 End: 03-16-2022 take 1 mL by inhalation every two hours as needed Ipratropium-Albuterol Discontinued 3 ML INHALATION EVERY 2 HOURS NEEDED 0 September 29, 2021 1:00am March 16, 2022 10:20am aspirin 81 mg oral tablet (20 sources) Platelet Aggregation Inhibitor, Nonsteroidal Anti-inflammatory Drug Start: 10-20-2021 take 1 capsule by mouth once daily Start: 10-20-2021 aspirin 81 mg chewable tablet 81 mg. 10/20/2021 Active Start: 10-18-2018 End: 11-08-2018 take 1 tablet by mouth once daily Aspirin 81 MG tablet,delayed release (DR/EC) Discontinued 81 mg PO DAILY October 18, 2018 1:00am November 08, 2018 4:23pm heart Comment on above: 81 mg. atorvastatin 20 mg oral tablet (20 sources) HMG-CoA Reductase Inhibitor Start: 2 End: 6 take 1 tablet by mouth once daily atorvastatin (LIPITOR) 20 mg tablet Take 1 tablet by mouth once daily. 90 tablet 3 03/24/2025 03/24/2026 Active Start: 10-22-2018 End: 11-08-2018 take 1 tablet by mouth at bedtime Atorvastatin 20 MG tablet Discontinued 20 mg PO AT BEDTIME 0 October 22, 2018 1:00am November 08, 2018 4:22pm Comment on above: Take by mouth. Take 1 tablet by cathie once daily. bisacodyl 5 mg oral delayed release tablet (1 source) Start: bisacodyl 5 mg oral delayed release tablet Dose : 5 mg = 1 tab(s), Oral, qDay, PRN as needed for constipation, # 20 tab(s), 0 Refill(s) Start Date: 11/14/21 Status: Ordered docusate sodium 50 mg / sennosides, group home 8.6 mg oral tablet (20 sources) Start: guaiFENesin (3 sources) Start: take 1 tablet by mouth twice daily as needed for congestion Mucinex D 60 mg-600 mg oral tablet, extended release Dose = 2 tab(s), Oral, BID, PRN as needed for congestion, # 40 tab(s), 0 Refill(s) Start Date: 10/29/21 Status: Ordered hydroCHLOROthiazide 12.5 mg / losartan potassium 50 mg oral tablet (4 sources) Thiazide Diuretic, Angiotensin 2 Receptor Whit Start: Magnesium (1 source) Start: take 1 mg by mouth once daily Magnesium 250 mg tablet mg = tab(s), Oral, qDay, 0 Refill(s) Start Date: 11/14/21 Status: Ordered magnesium oxide 400 mg oral tablet (20 sources) Start: 024 take 1 tablet by mouth once daily magnesium oxide (MAG-OX) 400 mg (241.3 mg magnesium) tablet Take 1 tablet by mouth once daily. 0 06/13/2024 Active Start: 11-14-2021 take 1 mg by mouth once daily Magnesium 250 mg tablet mg = tab(s), Oral, qDay, 0 Refill(s) Start Date: 11/14/21 Status: Ordered Start: 10-06-2021 magnesium oxid e 400 mg oral tablet Dose : 400 mg = 1 tab(s), Oral, BID, # 7 tab(s), 0 Refill(s) Start Date: 10/06/21 Status: Ordered Start: 09-18-2021 take 1 capsule by mo [facility] once daily Start: 11-08-2018 End: 09-18-2021 take 1 capsule by mouth twice daily Magnesium Oxide 400 mg capsule Discontinued 400 mg PO TWICE A DAY 60 11 December 02, 2018 1:25pm January 03, 2019 11:07am Start: 11-06-2018 End: 06-13-2024 take 1 tablet by mouth twice daily magnesium oxide (MAG-OX) 400 mg (241.3 mg magnesium) tablet Take 1 tablet by mouth twice daily. 60 tablet 11/06/2018 06/13/2024 Discontinued Comment on above: Take 1 tablet by cathie twice daily. 24 hr metFORMIN hydrochloride 500 mg extended release oral tablet (20 sources) Biguanide Start: 02-03-2022 End: 12-26-2024 take 1 tablet by mouth once daily Start: 11-03-2020 take 1 tablet by cathie th once daily at breakfast metFORMIN ER (GLUCOPHAGE XR) 500 mg 24 hr tablet Indications: Pre-diabetes Take 1 tablet by mouth daily with breakfast. 90 tablet 3 11/03/2020 Active Start: 11-08-2018 End: 03-16-2022 take 1 tablet by mouth once daily Metformin 500 mg tablet Discontinued 500 mg PO DAILY November 08, 2018 12:00am March 16, 2022 10:20am diabetes Comment on above: Take 1 tablet by cathie th daily with breakfast. Take 1 tablet by cathie th once daily with breakfast Miralax Powder Packet (1 source) Start: 03-28-202 2 take 17 doses by mouth twice daily Miralax Powder Packet Dose : 17 gram(s) =, Oral, BID, dissolve in water before taking, # 14 EA, 0 Refill(s) Start Date: 11/14/21 Status: Ordered Multiple Vitamins with Minerals oral capsule (5 sources) Start: 2 take 1 capsule by mouth once daily Multiple Vitamins with Minerals oral capsule Dose = 1 cap(s), Oral, qDay, # 30 cap(s), 0 Refill(s) Start Date: 10/06/21 Status: Ordered MULTIVITAMIN ORAL (20 sources) MULTIVITAMIN ORA L Take by mouth. Active MULTIVITAMIN ORA L Take by mouth. 0 Active Comment on above: Take by mouth. Multivitamin With Minerals (20 sources) Start: 10-18-2018 take 1 tablet by mouth once daily Multivitamin With Minerals Active 1 TABLET PO DAILY October 18, 2018 10:19pm Start: 10-18-2018 take 1 tablet by cathie th once daily Multivitamin With Minerals Active 1 TABLET PO DAILY October 18, 2018 12:00am Start: 10-18-2018 take 1 tablet by cathie th once daily Multivitamin With Minerals Active 1 TABLET PO DAILY October 18, 2018 1:00am Multivitamin With Minerals 1 EACH tablet (6 sources) Start: 10-18-2018 take 1 tablet by cathie th once daily Start: 10-18-2018 take 1 tablet by cathie th once daily Multivitamin With Minerals 1 EACH tablet Active 1 {tbl} PO DAILY October 18, 2018 1:00am supplement Start: 10-18-2018 take 1 tablet by cathie th once daily Multivitamin With Minerals 1 EACH tablet Active 1 {tbl} PO DAILY October 18, 2018 1:00am Normal saline (4 sources) Start: 11-02-2021 Normal Saline Flush, Dose = 10 mL, IR Drain, TID, 0 Refill(s) Start Date: 11/02/21 Status: Ordered Psyllium Husk (Aspartame) (Daily Fiber (Psyllium-Aspart)) 3 gram Powder In Packet (20 sources) Start: 09-29-2021 Psyllium Husk (Aspartame) (Daily Fiber (Psyllium-Aspart)) 3 gram Powder In Packet Active 1 PACKET PO TWICE A DAY 0 September 29, 2021 1:48pm Start: 09-29-2021 End: 11-08-2023 Psyllium Husk (Aspartame) (D aily Fiber (Psyllium-Aspart)) 3 gram Powder In Packet Discontinued 1 NMA PO TWICE A DAY 0 September 29, 2021 1:00am November 08, 2023 10:19am Start: 09-29-2021 End: 11-08-2023 Psyllium Husk (Aspartame) (D aily Fiber (Psyllium-Aspart)) 3 gram Powder In Packet Discontinued 1 PACKET PO TWICE A DAY 0 September 29, 2021 1:00am November 08, 2023 10:19am Start: 09-29-2021 Psyllium Husk (Aspartame) (Daily Fiber (Psyllium-Aspart)) 3 gram Powder In Packet Active 1 PACKET PO TWICE A DAY 0 September 29, 2021 12:00am Start: 09-29-2021 Psyllium Husk (Aspartame) (Daily Fiber (Psyllium-Aspart)) 3 gram Powder In Packet Active 1 PACKET PO TWICE A DAY 0 September 29, 2021 1:00am Senna Leaves (1 source) Start: 11-14-2021 senna 0 Refill (s) Start Date: 11/14/21 Status: Ordered sennosides, group home 8.6 mg oral tablet (20 sources) Start: 01-03-2022 take 2 tablets by mouth twice daily senna (SENNA) 8.6 mg tab Take 2 tablets by mouth twice daily. 01/03/2022 Active Start: 11-14-2021 senna 0 Refill (s) Start Date: 11/14/21 Status: Ordered End: 01-03-2022 take 1 tablet by mouth twice daily senna (SENNA) 8.6 mg tab Take 8.6 mg by mouth twice daily. 0 01/03/2022 Discontinued Comment on above: Take 2 tablets by mo ut twice daily. Take 8.6 mg by mouth twice daily. Sodium Phosphate, Dibasic / Sodium Phosphate, Monobasic (3 sources) Start: 2 Fleet Enema Rectal, Once, 0 Refill(s) Start Date: 11/14/21 Status: Ordered Stool Softener + Stimulant Laxative 50 mg-8.6 mg oral capsule (5 sources) Start: 2 take 1 capsule by mouth twice daily Stool Softener + Stimulant Laxative 50 mg-8.6 mg oral capsule Dose = 2 cap(s), Oral, BID, # 60 cap(s), 0 Refill(s) Start Date: 10/06/21 Status: Ordered warfarin sodium 10 mg oral tablet (20 sources) Vitamin K Antagonist Start: 3 End: Warfarin 5 mg tablet Discontinued 5 mg PO .COMPLEX Protocol: Adjustment Start Date: Sunday02/25/24INR Value: 2.3INR Date: 02/25/24Recheck Date: 03/26/24 Condition: Sunday Dose/Route: 10 mg Instructions: 1 x 10 mg tablet Condition: Sunday Dose/Route: 10 mg Instructions: 1 x 10 mg tablet Condition: Sunday Dose/Route: 10 mg Instructions: 1 x 10 mg tablet Condition: Sunday Dose/Route: 10 mg Instructions: 1 x 10 mg tablet Condition: Dose/Route: 10 mg Instructions: 1 x 10 mg tablet Condition: Sunday Dose/Route: 15 mg Instructions: 1 x 5 mg tablet, 1 x 10 mg tablet Condition: Sunday Dose/Route: 10 mg Instructions: 1 x 10 mg tablet 90 3 October 08, 2023 12:52pm March 24, 2024 8:28am 5 mg orally take 1 tab by mouth with a 10mg tab=(15mg) every Sunday and then take a 10mg x 6 days of the week or as directed Please contact the information source for Protocol details. Start: 11-02-2022 End: 04-27-2025 Start: 11-02-2022 End: 11-02-2022 take 1 tablet by mouth once daily Warfarin 5 mg tablet Discontinued 5 mg PO DAILY November 02, 2022 12:00am November 02, 2022 10:01am Start: 11-02-2022 End: 01-16-2023 take 5 mg by mouth once daily Warfarin 10 mg tablet Di scontinued 5 mg PO DAILY November 02, 2022 12:00am January 16, 2023 2:40pm Please contact the information source for Protocol details. Start: 11-02-2022 End: 01-16-2023 take 5 mg by mouth once daily Warfarin Discontinued 5 MG PO DAILY November 02, 2022 12:00am January 16, 2023 2:40pm Start: 02-22-2022 End: 01-16-2023 take 2 tablets by mouth every week Warfarin 5 mg tablet Discontinued 5 mg PO .COMPLEX Protocol: Adjustment Start Date: Sunday12/04/22INR Value: 3.1INR Date: 12/04/22Recheck Date: 12/18/22 Condition: Sunday Dose/Route: 15 mg Instructions: 1 x 5 mg tablet, 1 x 10 mg tablet Condition: Sunday Dose/Route: 10 mg Instructions: 1 x 10 mg tablet Condition: Sunday Dose/Route: 10 mg Instructions: 1 x 10 mg tablet Condition: Sunday Dose/Route: 15 mg Instructions: 1 x 5 mg tablet, 1 x 10 mg tablet Condition: Dose/Route: 15 mg Instructions: 1 x 5 mg tablet, 1 x 10 mg tablet Condition: Sunday Dose/Route: 15 mg Instructions: 1 x 5 mg tablet, 1 x 10 mg tablet Condition: Sunday Dose/Route: 15 mg Instructions: 1 x 5 mg tablet, 1 x 10 mg tablet February 22, 2022 1:16pm January 16, 2023 2:42pm 5 mg orally take 3 tabs by mouth (15mg) x3 days of the week and take 2 tabs (10mg) the other days of the week or as directed; Please contact the information source for Protocol details. Start: 02-22-2022 End: 02-22-2022 take 1 tablet by mouth once daily Warfarin 5 mg tablet Discontinued 5 mg PO DAILY Protocol: Adjustment Start Date: Sunday02/22/22INR Value: 1.8INR Date: 02/22/22Recheck Date: 03/01/22 Condition: Sunday Dose/Route: 10 mg Instructions: 2 x 5 mg tablets Condition: Sunday Dose/Route: 10 mg Instructions: 2 x 5 mg tablets Condition: Sunday Dose/Route: 10 mg Instructions: 2 x 5 mg tablets Condition: Sunday Dose/Route: 15 mg Instructions: 3 x 5 mg tablets Condition: Dose/Route: 15 mg Instructions: 3 x 5 mg tablets Condition: Sunday Dose/Route: 15 mg Instructions: 3 x 5 mg tablets Condition: Sunday Dose/Route: 10 mg Instructions: 2 x 5 mg tablets February 22, 2022 12:00am February 22, 2022 1:20pm Please contact the information source for Protocol details. Start: 01-03-2022 End: 12-07-2023 take 2 tablets by mouth once daily, then take 3 tablets by mouth once warfarin (COUMADIN) 5 mg tablet Take by mouth 10 mg daily, 15 mg on Sunday per Pt ( [facility] Heart group Dr. Kebede's monitors INR) 12/07/2023 Active Start: 11-02-2021 Coumadin Dose : 1 mg = 1 tab(s), Oral, qDay, 0 Refill(s) Start Date: 11/02/21 Status: Ordered Start: 10-20-2021 warfarin 2 mg oral tablet Dose : 2 mg = 1 tab(s), Oral, qDay, # 30 tab(s), 0 Refill(s), Pharmacy: [id number], 180.3, cm, 10/06/21 7:56:00 EST, Height, kg, 10/06/21 7:56:00 EST, Dosing Weight Start Date: 10/20/21 Status: Ordered Start: 10-06-2021 End: 11-02-2022 take 1 tablet by mouth every other day Warfarin 4 mg Tablet Discontinued 2 mg PO EVERY OTHER DAY Protocol: Adjustment Start Date: 11/02/22INR Value: 3.0INR Date: 11/02/22Recheck Date: 11/30/22 Condition: Sunday Dose/Route: 15 mg Instructions: 3 x 5 mg tablets Condition: Sunday Dose/Route: 10 mg Instructions: 2 x 5 mg tablets Condition: Sunday Dose/Route: 15 mg Instructions: 3 x 5 mg tablets Condition: Sunday Dose/Route: 15 mg Instructions: 3 x 5 mg tablets Condition: Dose/Route: 15 mg Instructions: 3 x 5 mg tablets Condition: Sunday Dose/Route: 15 mg Instructions: 3 x 5 mg tablets Condition: Sunday Dose/Route: 15 mg Instructions: 3 x 5 mg tablets October 06, 2021 1:00am November 02, 2022 10:00am Please contact the information source for Protocol details. Start: 10-06-2021 End: 11-02-2022 take 2 mg by mouth every other day Warfarin 4 mg Tablet Discontinued 2 mg PO EVERY OTHER DAY October 06, 2021 1:00am November 02, 2022 10:00am Please contact the information source for Protocol details. Start: 10-06-2021 End: 11-02-2022 take 2 mg by mouth every other day Warfarin Discontinued 2 MG PO EVERY OTHER DAY October 06, 2021 1:00am November 02, 2022 10:00am Start: 09-29-2021 End: 11-02-2022 take 1 tablet by mouth once daily Warfarin (Augtoven) 3 mg tablet Discontinued 3 mg PO Protocol: Adjustment Start Date: 11/02/22INR Value: 3.0INR Date: 11/02/22Recheck Date: 11/30/22 Condition: Sunday Dose/Route: 15 mg Instructions: 3 x 5 mg tablets Condition: Sunday Dose/Route: 10 mg Instructions: 2 x 5 mg tablets Condition: Sunday Dose/Route: 15 mg Instructions: 3 x 5 mg tablets Condition: Sunday Dose/Route: 15 mg Instructions: 3 x 5 mg tablets Condition: Dose/Route: 15 mg Instructions: 3 x 5 mg tablets Condition: Sunday Dose/Route: 15 mg Instructions: 3 x 5 mg tablets Condition: Sunday Dose/Route: 15 mg Instructions: 3 x 5 mg tablets October 06, 2021 5:28am November 02, 2022 10:00am Monitor INR daily, keep INR around 3.0. Please contact the information source for Protocol details. Start: 04-17-2019 End: 01-03-2022 take 1 tablet by mouth once daily Warfarin 5 mg tablet Discontinued 10 mg PO DAILY Protocol: Adjustment Start Date: Sunday08/23/21INR Value: 2.3INR Date: 08/23/21Recheck Date: 09/20/21 Condition: Sunday Dose/Route: 10 mg Instructions: 2 x 5 mg tablets Condition: Sunday Dose/Route: 10 mg Instructions: 2 x 5 mg tablets Condition: Sunday Dose/Route: 10 mg Instructions: 2 x 5 mg tablets Condition: Sunday Dose/Route: 10 mg Instructions: 2 x 5 mg tablets Condition: Dose/Route: 10 mg Instructions: 2 x 5 mg tablets Condition: Sunday Dose/Route: 10 mg Instructions: 2 x 5 mg tablets Condition: Sunday Dose/Route: 10 mg Instructions: 2 x 5 mg tablets 180 4 January 25, 2021 1:32pm September 14, 2021 11:58am takes with supper Please contact the information source for Protocol details. Start: 01-08-2019 End: 11-04-2019 take 2.5 mg by mouth once daily, then take 1 tablet by mouth every month Warfarin 5 MG tablet Discontinued 10 mg PO DAILY Protocol: Patient Instructed to take:warfarin 2.5 mg (1 Tab) on FR, SAwarfarin 5 mg (2 Tabs) on UP, MO, TU, WE, TH, FR, SA January 08, 2019 8:11am November 04, 2019 8:34am Please contact the information source for Protocol details. Start: 12-02-2018 End: 01-08-2019 take 1 tablet by mouth once daily, then take 1 tablet by mouth every month Warfarin 5 mg tablet Discontinued 10 mg PO DAILY Protocol: Patient Instructed to take:warfarin 5 mg (1 Tab) on SUwarfarin 5 mg (2 Tabs) on MO, TU, WE, TH, FR, SA 60 December 02, 2018 12:00am January 08, 2019 8:11am Please contact the information source for Protocol details. Start: 12-02-2018 End: 09-18-2021 take 2 tablets by mouth once daily Warfarin 5 mg tablet Discontinued 10 mg PO DAILY 180 4 January 25, 2021 1:32pm September 14, 2021 11:58am takes with supper Please contact the information source for Protocol details. Start: 12-02-2018 End: 09-18-2021 take 10 mg by mouth once daily Warfarin Discontinued 1 0 MG PO DAILY 180 January 25, 2021 1:32pm September 14, 2021 11:58am takes with supper Start: 11-06-2018 End: 01-03-2022 take 1 tablet by mouth once Warfarin (Coumadin) 2.5 mg tablet Discontinued 2.5 mg PO .COMPLEX Protocol: Patient Instructed to take:warfarin 2.5 mg (2 Tabs) on UP, FR, SAwarfarin 2.5 mg (4 Tabs) on MO, TU, WE, TH 60 November 22, 2018 4:35pm December 02, 2018 1:23pm 2.5 mg PO two tablets by mouth x 5 days of the week and 0ne tablet x 2 days of the week; Please contact the information source for Protocol details. Comment on above: Take 1 tablet by cathie th daily as directed. Pt is taking 7.5 mg po on Sunday, all other days of week is taking 10 mg po per Pt ( [facility] Heart group Dr. Kebede's monitors INR) Take 1 tablet by cathie th once daily. Take by mouth 10 mg daily, per Pt ( [facility] Heart group Dr. Kebede's monitors INR) Take 2 tablets by mo uth once daily. Take by mouth 10 mg daily, per Pt ( [facility] Heart group Dr. Kebede's monitors INR) Take by mouth 10 mg daily, 15 mg on Sunday per Pt ( [facility] Heart group Dr. Kebede's monitors INR) Completed/Discontinued Medications Medication Drug Class(es) Dates Sig (Normalized) Sig (Original) acetaminophen 325 mg / oxyCODONE hydrochloride 5 mg oral tablet (20 sources) Opioid Agonist Start: 11-08-2018 End: 11-29-2018 Oxycodone-Acetamin ophen (Percocet) 5-325 mg tablet Discontinued 1 {tbl} PO EVERY 6 HOURS as needed 0 November 08, 2018 12:00am November 29, 2018 10:23am Albuterol Sulfate (18 sources) beta2-Adrenergic Agonist Start: 11-08-2018 End: 03-13-2019 take 1 puff(s) by inhalation every six hours Albuterol Sulfate (Proventil Hfa) 90 mcg/actuation HFA aerosol inhaler Discontinued 2 PUFF INHALATION EVERY 6 HOURS November 08, 2018 4:18pm March 13, 2019 1:08pm Start: 11-08-2018 End: 03-13-2019 Albuterol Sulfate (Proventil Hfa) 90 mcg/actuation HFA aerosol inhaler Discontinued 2 NMA INHALATION EVERY 6 HOURS as needed for Wheezing November 08, 2018 12:00am March 13, 2019 1:08pm Start: 11-06-2018 End: 01-03-2022 take 1-2 puff(s) by inhalation three times daily albuterol HFA (PROVENTIL HFA) 90 mcg/actuation inhaler Inhale 1-2 Puffs as instructed three times daily. 0.02 g 0 11/06/2018 01/03/2022 Discontinued Comment on above: Inhale 1-2 Puffs as instructed three times daily. Albuterol Sulfate (Proventil Hfa) 90 mcg/actuation HFA aerosol inhaler (20 sources) Start: 11-08-2018 End: 03-13-2019 Albuterol Sulfate (Proventil Hfa) 90 mcg/actuation HFA aerosol inhaler Discontinued 2 NMA INHALATION EVERY 6 HOURS as needed for Wheezing November 08, 2018 12:00am March 13, 2019 1:08pm Start: 11-08-2018 End: 03-13-2019 take 1 puff(s) by inhalation every six hours Albuterol Sulfate (Proventil Hfa) 90 mcg/actuation HFA aerosol inhaler Discontinued 2 PUFF INHALATION EVERY 6 HOURS November 07, 2018 11:00pm March 13, 2019 12:08pm Start: 11-08-2018 End: 03-13-2019 take 1 puff(s) by inhalation every six hours Albuterol Sulfate (Proventil Hfa) 90 mcg/actuation HFA aerosol inhaler Discontinued 2 PUFF INHALATION EVERY 6 HOURS November 08, 2018 12:00am March 13, 2019 1:08pm amLODIPine 10 mg oral tablet (20 sources) Dihydropyridine Calcium Channel Whit Start: 11-08-2023 End: 01-06-2025 take 1 tablet by mouth once daily Amlodipine 10 mg tablet Discontinued 10 mg PO DAILY 90 3 November 08, 2023 10:33am January 06, 2025 10:13am Start: 10-20-2021 End: 06-13-2024 take 1 tablet by mouth once daily Amlodipine 5 mg tablet Discontinued 5 mg PO DAILY October 29, 2021 1:00am November 08, 2023 10:34am Comment on above: 5 mg. Take 1 tablet by cathie th once daily. bisacodyl 5 mg delayed release oral tablet (3 sources) Stimulant Laxative Start: 11-14-2021 End: 01-03-2022 bisacodyl EC (DULCOLAX) 5 mg EC tablet 5 mg. 0 11/14/2021 01/03/2022 Discontinued Comment on above: 5 mg. bumetanide 1 mg oral tablet (20 sources) Loop Diuretic Start: 03-13-2019 End: 08-17-2023 take 1 tablet by mouth once daily Bumetanide 1 mg tablet Discontinued 1 mg PO DAILY 90 3 March 22, 2020 3:42pm March 15, 2021 10:07am Start: 12-06-2018 End: 03-13-2019 Bumetanide 1 mg tablet Disco ntinued 0 PO .COMPLEX 90 30 December 16, 2018 1:46pm December 10, 2019 12:00am January 03, 2019 11:08am 2 mg in the AM and 1 mg in the afternoon PO ; Start: 11-29-2018 End: 12-06-2018 Bumetanide 1 mg tablet Disco ntinued 2 mg PO 30 0 November 29, 2018 12:00am December 06, 2018 11:07am Start: 11-29-2018 End: 03-13-2019 Bumetanide Discontinued 0 PO .COMPLEX 90 30 December 16, 2018 1:46pm January 03, 2019 11:08am 2 mg in the AM and 1 mg in the afternoon PO ; Comment on above: Take 1 tablet by cathie once daily. carvedilol 3.125 mg oral tablet (20 sources) alpha-Adrenergic Whit, beta-Adrenergic Whit Start: 10-23-19 End: 11-09-19 take 1 tablet by mouth twice daily Carvedilol 3.125 MG tablet Discontinued 3.125 mg PO TWICE A DAY 0 October 22, 2018 1:00am November 08, 2018 4:20pm ceFAZolin 1000 mg injection (2 sources) Cephalosporin Antibacterial Start: 11-15-19 End: 11-22-19 ceFAZolin 1 g injection 1 gram(s), Intravenous, q8h, 21 EA, 0 Refill(s), REC Powder, 111.8 Start Date: 11/14/21 Stop Date: 11/21/21 Status: Ordered CeFAZolin 2 gm IV Syringe (1 source) Start: 10-21-19 CeFAZolin 2 gm IV Syringe 2 gram(s), 20 mL, IV Push (INT), q8hr, 0 Refill(s), Syringe, 118.2 Start Date: 10/20/21 Status: Ordered cephalexin 500 mg oral capsule (20 sources) Cephalosporin Antibacterial Start: 11-30-19 End: 01-04-20 take 1 capsule by mouth twice daily Cephalexin (Keflex) 500 mg capsule Discontinued 500 mg PO TWICE A DAY 20 November 29, 2018 12:00am January 03, 2019 11:05am clopidogrel 75 mg oral tablet (20 sources) [id number] Platelet Inhibitor Start: 03-13-20 End: 03-13-20 take 1 tablet by mouth once daily Clopidogrel (Plavix) 75 mg tablet Discontinued 75 mg PO DAILY March 13, 2019 12:00am March 13, 2019 1:10pm Start: 11-08-2018 End: 01-03-2019 take 1 tablet by mouth once daily Clopidogrel 75 mg tablet Discontinued 75 mg PO DAILY November 08, 2018 12:00am January 03, 2019 11:07am dexamethasone 6 mg oral tablet (20 sources) Corticosteroid Start: 09-14-2021 End: 09-29-2021 take 1 tablet by mouth once daily Dexamethasone 6 mg tablet Discontinued 6 mg PO DAILY September 18, 2021 9:33am September 29, 2021 1:49pm Check with primary doctor furosemide 40 mg oral tablet (20 sources) Loop Diuretic Start: 11-08-2018 End: 11-29-2018 take 1 tablet by mouth once daily Furosemide 40 mg tablet Discontinued 40 mg PO DAILY November 08, 2018 12:00am November 29, 2018 10:22am 12 hr guaiFENesin 600 mg / pseudoephedrine hydrochloride 60 mg extended release oral tablet (20 sources) alpha-Adrenergic Agonist Start: 09-14-2021 End: 01-03-2022 pseudoephedrine-gu aiFENesin (MUCINEX-D) 60-600 mg per tablet Take by mouth. 0 09/14/2021 01/03/2022 Discontinued Start: 09-14-2021 End: 03-16-2022 take 1 tablet by mouth every twelve hours Pseudoephedrine-Guaifenesin (Mucinex D) 60-600 mg tablet extended release 12 hr Discontinued 2 {tbl} PO TWICE A DAY 14 0 September 14, 2021 1:00am March 16, 2022 10:20am cold symptoms Start: 09-14-2021 End: 03-16-2022 take 2 tablets by mouth twice daily, then take 1 tablet by mouth every twelve hours Pseudoephedrine-Guaifenesin (Mucinex D) 60-600 mg tablet extended release 12 hr Discontinued 2 TABLET PO TWICE A DAY September 14, 2021 1:00am March 16, 2022 10:20am Comment on above: Take by mouth. hydroCHLOROthiazide 12.5 mg oral capsule (20 sources) Thiazide Diuretic Start : 10-18 End: 10-22 take 1 capsule by mouth once daily Hydrochlorothiazide 12.5 MG capsule Discontinued 12.5 mg PO DAILY October 18, 2018 1:00am October 22, 2018 2:40pm water pill ipratropium bromide 0.2 mg/ml inhalation solution (1 source) Anticholinergic Start : 12-20 End: 01-03 ipratropium (ATROVENT) 0.02 % nebulizer solution Inhale as instructed. 0 12/20/2021 01/03/2022 Discontinued Comment on above: Inhale as instructed . lisinopril 40 mg oral tablet (20 sources) Angiotensin Converting Enzyme Inhibitor Start : 10-18 End: 10-22 take 1 tablet by mouth once daily Lisinopril 40 MG tablet Discontinued 40 mg PO DAILY October 18, 2018 1:00am October 22, 2018 2:40pm heart melatonin 3 mg oral tablet (20 sources) Start : 11-06 End: 01-03 take 1 tablet by mouth at bedtime as needed Melatonin 3 mg tablet Discontinued 3 mg PO BEDTIME as needed November 08, 2018 12:00am December 06, 2018 11:06am Comment on above: Take 1 tablet by cathie th at bedtime as needed (insomnia). metoprolol tartrate 50 mg oral tablet (20 sources) beta-Adrenergic Whit Start : 09-14 End: 03-16 Metoprolol Tartrate 50 mg tablet Discontinued 50 mg PO TWICE A DAY 0 0 September 14, 2021 11:58am March 16, 2022 10:24am hypertension Hold for heart less than 60 or systolic blood pressure less than 100 mmHg. Start: 11-29-2018 End: 01-03-2022 take 1 tablet by mouth twice daily Metoprolol Tartrate 50 mg tablet Discontinued 50 mg PO TWICE A DAY November 29, 2018 10:22am September 14, 2021 11:58am hypertension Start: 11-08-2018 End: 11-29-2018 Metoprolol Tartrate 50 mg ta blet Discontinued 75 mg PO Q8H November 08, 2018 12:00am November 29, 2018 10:23am Start: 11-08-2018 End: 11-29-2018 take 75 mg by mouth every eight hours Metoprolol Tartrate Discontinued 75 MG PO Q8H November 08, 2018 12:00am November 29, 2018 10:23am Comment on above: Take 1 tablet by cathie th twice daily. Zosyn (3 sources) Penicillin-class Antibacterial, beta Lactamase Inhibitor Start: 11-02-2021 Zosyn Dose : 3.375 gram(s) = 50 mL, IV Piggyback, q8h, 0 Refill(s), 111.8 Start Date: 11/02/21 Status: Ordered polyethylene glycol 3350 19188 mg powder for oral solution (20 sources) Osmotic Laxative Start: 11-14-2021 End: 12-26-2024 polyethylene glycol 3350 (MIRALAX, GLYCOLAX) 17 gram/dose powder Take by mouth. 11/14/2021 12/26/2024 Discontinued Start: 11-14-2021 take 17 doses by cathie twice daily Miralax Powder Packet Dose : 17 gram(s) =, Oral, BID, dissolve in water before taking, # 14 EA, 0 Refill(s) Start Date: 11/14/21 Status: Ordered Comment on above: Take by mouth. potassium chloride 20 meq extended release oral tablet (20 sources) Start: 12-16-2018 End: 09-14-2020 take 1 tablet by mouth three times daily Potassium Chloride 20 mEq tablet extended release Discontinued 20 meq PO THREE TIMES A DAY April 27, 2020 1:18pm September 14, 2020 4:49pm Start: 11-08-2018 End: 12-16-2018 take 1 tablet by mouth twice daily Potassium Chloride 20 mEq tablet extended release Discontinued 20 meq PO TWICE A DAY November 08, 2018 12:00am December 16, 2018 1:48pm psyllium 3400 mg powder for oral suspension (20 sources) Start: 10-06-2021 End: 12-26-2024 Psyllium Husk-Sucrose 3.4 gr am/7 gram powd 1.7 g. 10/06/2021 12/26/2024 Discontinued Start: 10-06-2021 take 1.7 doses by mo [facility] twice daily Metamucil 3.4 g/5.2 g oral powder for reconstitution Dose : 1.7 gram(s) =, Oral, BID, # 1,042 gram(s), 0 Refill(s) Start Date: 10/06/21 Status: Ordered Comment on above: 1.7 g. Psyllium Husk (Daily Fiber (Psyllium-Aspart)) 3 gram Powder In Packet (5 sources) Start: 09-29-2021 End: 11-08-2023 Psyllium Husk (Daily Fiber (Psyllium-Aspart)) 3 gram Powder In Packet Discontinued 1 NMA PO TWICE A DAY 0 0 September 29, 2021 1:00am November 08, 2023 10:19am Start: 09-29-2021 End: 11-08-2023 Psyllium Husk (Daily Fiber ( Psyllium-Aspart)) 3 gram Powder In Packet Discontinued 1 NMA PO TWICE A DAY 0 September 29, 2021 1:00am November 08, 2023 10:19am rifAMPin 300 mg oral capsule (4 sources) Rifamycin Antibacterial Start: 10-20-2021 rifAMPin 300 mg oral capsule Dose : 300 mg = 1 cap(s), Oral, BID, 0 Refill(s), 118.2 Start Date: 10/20/21 Status: Ordered silver sulfADIAZINE 10 mg/ml topical cream (20 sources) Sulfonamide Antibacterial Start: 10-06-2021 silver sulfADIAZINE 1% topical cream Apply 1 guera, Topical, qDay, 0 Refill(s), 118.2 Start Date: 10/06/21 Status: Ordered Start: 10-06-2021 silver sulfADI AZINE 1% topical cream Apply 1 guera, Topical, qDay, 0 Refill(s), 118.2 Start Date: 10/06/21 Status: Ordered Start: 03-15-2021 End: 03-16-2022 Silver Sulfadiazine 1 % crea m Discontinued 1 NMA TOPICAL DAILY September 18, 2021 9:33am March 16, 2022 10:21am Check with primary doctor apply a 1.5 mm thickness Start: 06-26-2019 End: 03-16-2022 silver sulfADIAZINE (SILVADE NE,THERMAZENE) 1 % cream Indications: Venous stasis ulcer of other part of left lower leg limited to breakdown of skin, unspecified whether varicose veins present (HCC) Apply 1 application to affected area once daily. 85 g 2 06/26/2019 Active Comment on above: Apply 1 application to affected area once daily. simvastatin 40 mg oral tablet (20 sources) HMG-CoA Reductase Inhibitor Start: End: take 1 tablet by mouth at bedtime Simvastatin 40 mg tablet Discontinued 40 mg PO AT BEDTIME November 08, 2018 12:00am September 29, 2021 1:50pm cholesterol Start: 10-18-2018 End: 10-22-2018 take 1 tablet by mouth once daily Simvastatin 40 MG tablet Discontinued 40 mg PO DAILY October 18, 2018 1:00am October 22, 2018 2:40pm cholesterol Comment on above: Take 1 tablet by cathie th daily at bedtime. spironolactone 50 mg oral tablet (20 sources) Aldosterone Antagonist Start: 10-29-2021 End: 03-16-2022 Spironolactone 50 mg tablet Discontinued 25 mg PO DAILY October 29, 2021 4:49am March 16, 2022 10:21am Check with primary doctor Hold if potassium is more than 5.0. Start: 10-29-2021 End: 03-16-2022 take 25 mg by mouth once daily Spironolactone Disconti nued 25 MG PO DAILY October 29, 2021 4:49am March 16, 2022 10:21am Hold if potassium is more than 5.0. Start: 09-14-2020 End: 01-03-2022 take 1 tablet by mouth once daily at bedtime Spironolactone 50 mg tablet Discontinued 50 mg PO DAILY 90 3 September 02, 2021 5:51pm September 18, 2021 9:33am takes QHS Comment on above: Take 50 mg by mouth once daily. tamsulosin hydrochloride 0.4 mg oral capsule (20 sources) alpha-Adrenergic Whit Start: 05-28-2023 End: 12-26-2024 tamsulosin (FLOMAX) 0.4 mg Take 1 capsule daily until the Rx is finished, then stop 05/28/2023 12/26/2024 Discontinued Start: 03-27-2023 End: 08-17-2023 Tamsulosin 0.4 mg capsule Discontinued 0.4 mg PO TWICE A DAY March 27, 2023 9:35am August 17, 2023 2:15pm Check with primary doctor Hold for systolic blood pressure less than 100 mmHg. Hold for dizziness Start: 06-20-2022 End: 05-28-2023 take 2 capsules by mouth once daily tamsulosin (FLOMAX) 0.4 mg Take 2 capsules by mouth once daily. 90 capsule 3 01/22/2023 05/28/2023 Discontinued Start: 01-03-2022 End: 04-23-2022 take 2 capsules by mouth once daily tamsulosin (FLOMAX) 0.4 mg Take 2 capsules by mouth once daily. 60 capsule 2 03/24/2022 Active Start: 10-06-2021 End: 01-03-2022 tamsulosin (FLOMAX) 0.4 mg T josafat by mouth. 0 10/06/2021 01/03/2022 Discontinued Start: 09-14-2021 End: 03-27-2023 Tamsulosin 0.4 mg capsule Discontinued 0.4 mg PO DAILY@1730 September 18, 2021 9:33am March 27, 2023 9:35am Check with primary doctor Hold for systolic blood pressure less than 100 mmHg. Hold for dizziness Start: 11-08-2018 End: 03-13-2019 Tamsulosin 0.4 mg capsule Discontinued 2 {tbl} PO AT BEDTIME November 08, 2018 12:00am March 13, 2019 1:11pm Start: 11-08-2018 End: 03-13-2019 take 2 tablets by mouth at bedtime Tamsulosin Discontinued 2 TABLET PO AT BEDTIME November 08, 2018 12:00am March 13, 2019 1:11pm Comment on above: Take 2 capsules by m outh once daily. Take by mouth. Take 1 capsule daily until the Rx is finished, then stop Problems Active Problems Problem Classification Problem Date Documented Date Episodic/Chronic Abdominal pain (20 sources) Abdominal pain; 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: [Unspecified abdominal pain] 11-06-2021 Episodic Acute myocardial infarction (20 sources) Myocardial infarction; 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: [Non-ST elevation (NSTEMI) myocardial infarction] Onset: 10-18-2018 11-06-2018 Chronic Bacterial infection; unspecified site (20 sources) Bacteremia; 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: [Bacteremia] Onset: 09-20-2021 Episodic Biliary tract disease (20 sources) Acute cholecystitis; 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: [Acute cholecystitis] Episodic Calculus of urinary tract (1 source) Kidney stone; 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: [Calculus of kidney] Episodic Cardiac dysrhythmias (20 sources) Atrial flutter; 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: [Unspecified atrial flutter] Onset: 11-24-2018 Chronic Cardiac dysrhythmias (1 source) Sinus bradycardia; 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: [Bradycardia, unspecified] Episodic Chronic kidney disease (3 sources) Chronic kidney disease 11-14-2021 Chronic Chronic ulcer of skin (1 source) Pressure ulcer of sacral region; 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: [Pressure ulcer of sacral region, stage 1] Chronic Conduction disorders (20 sources) Cardiac pacemaker in situ; 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: [Presence of cardiac pacemaker] Onset: 10-06-2021 Chronic Congestive heart failure; nonhypertensive (20 sources) Chronic diastolic heart failure; 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: [Chronic diastolic (congestive) heart failure] Onset: 11-01-2020 Chronic Comment on above: chronic diastolic co ngestive heart failure Coronary atherosclerosis and other heart disease (20 sources) Old myocardial infarction; 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: [Old myocardial infarction] Onset: 10-22-2018 Chronic Diabetes mellitus with complications (1 source) Type 2 diabetes mellitus with ulcer; 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: [Type 2 diabetes mellitus with other skin ulcer] 12-07-2023 Chronic Diabetes mellitus without complication (3 sources) Diabetes mellitus 11-14-2021 Chronic Comment on above: Type 2 Diseases of white blood cells (1 source) Leukocytosis; 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: [Elevated white blood cell count, unspecified] Chronic Disorders of lipid metabolism (20 sources) Hyperlipidemia; 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: [Hyperlipidemia, unspecified] Onset: 03-28-2011 Chronic Essential hypertension (20 sources) Essential hypertension; 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: [Essential (primary) hypertension] Onset: 03-28-2011 11-14-2021 Chronic Genitourinary symptoms and ill-defined conditions (20 sources) Acute retention of urine ; 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: [Other retention of urine] Onset: 11-04-2018 11-06-2018 Episodic Heart valve disorders (20 sources) Rheumatic diseases of endocardium, valve unspecified; 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: [H/O: heart valve recipient] Onset: 10-22-2018 Chronic Comment on above: 23mm [facility] ta pericardial prosthesis 10/29/18 Hyperplasia of prostate (3 sources) Benign prostatic hyperplasia 11-14-2021 Chronic Hypertension with complications and secondary hypertension (1 source) Hypertensive heart failure; 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: [Hypertensive heart disease with heart failure] Chronic Late effects of cerebrovascular disease (20 sources) Ataxia as sequela of cerebrovascular disease; 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: [Ataxia following unspecified cerebrovascular disease] Onset: 03-16-2011 03-16-2011 Chronic Nutritional deficiencies (3 sources) Vitamin D deficiency 11-14-2021 Chronic Open wounds of extremities (1 source) Tear of skin; 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: [Laceration without foreign body, right lower leg, subsequent encounter] 12-07-2023 Episodic Open wounds of head; neck; and trunk (20 sources) Open wound of face; 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: [Unspecified open wound of other part of head, initial encounter] Episodic Other aftercare (5 sources) Patient encounter status; 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: [Other fpc (current) drug therapy] Episodic Other aftercare (20 sources) Anticoagulant control - finding; 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: [prison (current) use of anticoagulants] 11-06-2021 Episodic Other aftercare (20 sources) Long-term current use of anticoagulant; 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: [prison (current) use of anticoagulants] Episodic Other aftercare (1 source) prison (current) use of anticoagulants; 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: [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] Onset: 05-19-2025 Episodic Other aftercare (1 source) Other fpc (current) drug therapy; 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: [Medication management] Onset: 06-26-2025 Episodic Other and ill-defined cerebrovascular disease (20 sources) Cerebrovascular disease; 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: [Cerebrovascular disease, unspecified] Onset: 10-22-2018 10-22-2018 Chronic Other and ill-defined heart disease (20 sources) Left ventricular diastolic dysfunction ; 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: [Heart disease, unspecified] 03-15-2022 Chronic Other and ill-defined heart disease (13 sources) Heart disease, unspecified; 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: [Heart disease, unspecified] Chronic Other circulatory disease (3 sources) History of aortic valve stenosis 11-14-2021 Episodic Other connective tissue disease (3 sources) Muscle weakness 11-14-2021 Episodic Other connective tissue disease (1 source) Other symptoms and signs involving the musculoskeletal system; 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: [Other musculoskeletal symptoms referable to limbs] 12-07-2023 Episodic Other ear and sense organ disorders (3 sources) Hearing loss 11-14-2021 Chronic Other lower respiratory disease (1 source) H/O: respiratory disease; 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: [Personal history of pneumonia (recurrent)] Episodic Other lower respiratory disease (3 sources) Chronic cough 11-14-2021 Episodic Other lower respiratory disease (20 sources) Dyspnea on exertion; 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: [Dyspnea, unspecified] 03-15-2022 Episodic Other lower respiratory disease (20 sources) Dyspnea; 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: [Dyspnea, unspecified] 01-15-2019 Episodic Other nervous system disorders (3 sources) Difficulty walking 11-14-2021 Chronic Other nutritional; endocrine; and metabolic disorders (20 sources) Body mass index 40+ - severely obese; 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: [Body mass index (BMI) 40.0-44.9, adult] Onset: 02-23-2015 02-23-2015 Chronic Other nutritional; endocrine; and metabolic disorders (20 sources) Obesity; 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: [Obesity, unspecified] 03-15-2022 Chronic Other nutritional; endocrine; and metabolic disorders (2 sources) Obese class I; 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: [Obesity, unspecified] Chronic Sue-; endo-; and myocarditis; cardiomyopathy (except that caused by tuberculosis or sexually transmitted disease) (1 source) Endocarditis; 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: [Endocarditis, valve unspecified] Chronic Sue-; endo-; and myocarditis; cardiomyopathy (except that caused by tuberculosis or sexually transmitted disease) (3 sources) Acute endocarditis 11-14-2021 Episodic Peripheral and visceral atherosclerosis (3 sources) Peripheral vascular disease 11-14-2021 Chronic Pneumonia (except that caused by tuberculosis or sexually transmitted disease) (1 source) Staphylococcal pneumonia; 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: [Pneumonia due to staphylococcus, unspecified] Episodic Residual codes; unclassified (20 sources) Obstructive sleep apnea syndrome; 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: [Obstructive sleep apnea (adult) (pediatric)] Onset: 11-01-2020 Chronic Residual codes; unclassified (1 source) Edema of foot; 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: [Localized edema] Episodic Respiratory failure; insufficiency; arrest (adult) (1 source) Chronic hypoxemic respiratory failure; 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: [Chronic respiratory failure with hypoxia] Chronic Respiratory failure; insufficiency; arrest (adult) (3 sources) Respiratory failure 11-14-2021 Episodic Comment on above: with hypoxia Septicemia (except in labor) (20 sources) Sepsis; 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: [Sepsis, unspecified organism] 11-06-2021 Episodic Urinary tract infections (20 sources) Acute urinary tract infection; 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: [Urinary tract infection, site not specified] 11-06-2021 Episodic Past or Other Problems Problem Classification Problem Date Documented Date Episodic/Chronic Coronary atherosclerosis and other heart disease (20 sources) Aortocoronary bypass graft present; 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: [Presence of aortocoronary bypass graft] Onset: 10-29-2018 Episodic Diabetes mellitus without complication (20 sources) Prediabetes; 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: [Prediabetes] Onset: 05-27-2019 05-27-2019 Episodic Other circulatory disease (20 sources) History of cerebrovascular accident; 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: [Personal history of transient ischemic attack (TIA), and cerebral infarction without residual deficits] Onset: 08-20-2010 02-28-2014 Episodic Comment on above: Old linear cystic in farcts in the right inferior cerebellar hemisphere Unclassified (1 source) History of SARS-CoV-2; 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: [Personal history of COVID-19] Unclassified (1 source) Post-acute COVID-19; 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: [Post COVID-19 condition, unspecified] Varicose veins of lower extremity (20 sources) Skin ulcer; 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: [Varicose veins of unspecified lower extremity with ulcer of unspecified site] Onset: 04-29-2019 04-29-2019 Episodic Viral infection (20 sources) Disease caused by 2019-nCoV; 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: [COVID-19] Onset: 09-11-2021 Episodic Results Test Name Value Interpretation Reference Range Facility CBC panel Auto (Bld)on 06-26 Erythrocyte distribution width (RBC) [Ratio] 13.5 % Normal 11.5-15.0 [facility] Comment on above: Order Comment: Speci men Type: BLOOD SPECIMENOrdering Facility: [facility] Address: [address] [place] [address] Performed By: #### [id number] ####[facility] LABCLIA [id number] [address] [place] OF [facility] Hematocrit (Bld) [Volume fraction] 49.5 % Normal 39.0-51.0 [facility] Comment on above: Order Comment: Speci men Type: BLOOD SPECIMENOrdering Facility: [facility] Address: [address] [place] [address] Performed By: #### [id number] ####[facility] [facility] LABCLIA [id number] [address] [place] Hemoglobin (Bld) [Mass/Vol] 16.3 g/dL Normal 13.0-17.0 [facility] Comment on above: Order Comment: Speci men Type: BLOOD SPECIMENOrdering Facility: [facility] Address: [address] [place] [address] Performed By: #### 5 8410-2 ####[facility] LABCLIA [id number] [place] [address] [place] MCH (RBC) [Entitic mass] 30.9 pg Normal 26.0-34.0 [facility] Comment on above: Order Comment: Speci men Type: BLOOD SPECIMENOrdering Facility: [facility] Address: [address] [place] [address] Performed By: #### 5 8410-2 ####[facility] LABCLIA [id number] [place] [address] [place] MCHC (RBC) [Mass/Vol] 32.9 g/dL Normal 30.5-36.0 [facility] Comment on above: Order Comment: Speci men Type: BLOOD SPECIMENOrdering Facility: [facility] Address: [address] [place] [address] Performed By: #### 5 8410-2 ####[facility] LABCLIA [id number] [address] [place] MCV (RBC) [Entitic vol] 93.8 fL Normal 80.0-100.0 [facility] Comment on above: Order Comment: Speci men Type: BLOOD SPECIMENOrdering Facility: [facility] Address: [address] [place] [address] Performed By: #### 5 8410-2 ####[facility] LABCLIA [id number] [place] [address] [place] Nucleated RBC (Bld) [#/Vol] 10*3/uL Normal <0.01 [facility] Comment on above: Order Comment: Speci men Type: BLOOD SPECIMENOrdering Facility: [facility] Address: [address] [place] [address] Performed By: #### 5 8410-2 ####[facility] LABCLIA [id number] [place] [address] [place] Platelet mean volume (Bld) [Entitic vol] 10.7 fL Normal 9.0-12.7 [facility] Comment on above: Order Comment: Speci men Type: BLOOD SPECIMENOrdering Facility: [facility] Address: [address] [place] [address] Performed By: #### 5 8410-2 ####[facility] LABCLIA [id number] [place] [address] [place] Platelets (Bld) [#/Vol] 192 10*3/uL Normal 150-400 [facility] Comment on above: Order Comment: Speci men Type: BLOOD SPECIMENOrdering Facility: [facility] Address: [address] [place] [address] Performed By: #### 5 8410-2 ####[facility] LABCLIA [id number] [place] [address] [place] RBC (Bld) [#/Vol] 5.28 10*6/uL Normal 4.20-6.00 [facility] Comment on above: Order Comment: Speci men Type: BLOOD SPECIMENOrdering Facility: [facility] Address: [address] [place] [address] Performed By: #### 5 8410-2 ####[facility] LABCLIA [id number] [place] [address] [place] WBC (Bld) [#/Vol] 8.41 10*3/uL Normal 3.70-11.00 [facility] Comment on above: Order Comment: Speci men Type: BLOOD SPECIMENOrdering Facility: [facility] Address: [address] [place] [address] Performed By: #### 5 8410-2 ####[facility] LABCLIA [id number] [place] [address] [place] Prothrombin Time w/INRon 11- 03-2025 INR Coag (PPP) [Relative time] 2.4 {INR} Normal [facility] Comment on above: Performed By: #### L 300.3900 #### [facility] Laboratory [address] [place], [place], [address] PT Coag (PPP) [Time] 27.0 s High 11.7-14.9 [facility] Comment on above: Performed By: #### L 300.3900 #### [facility] Laboratory [address] [place], [place], [address] CNPNon 04-29-2025 SHERIN Telephone (MARIA EUGENIA) -------- HARRISON MILLIGAN ([id number]) 1940 M Date Time Provider Department 04/29/25 LATONIA YARBROUGH During your visit today, we recorded the following information about you: Jessica Draper LPN 04/29/2025 10:40 AM Signed Received inr result 2.4 from [facility]. Placed in provider's inbox for review. Route to MA scanning Entered into pt chart. Allergies As of Date: 04/29/2025 (No Known Allergies) Date Reviewed: 06/13/2024 Reviewed by: Elke Le LPN - Fully Assessed Reason for Visit: Coumadin/INR [1207] Cmt: [facility] 04/27 2.4 Order(s):INR [[id number]] Order #: [id number] Prescriptions as of 04/29/2025 - atorvastatin (LIPITOR) 20 mg tablet Take 1 tablet by mouth once daily. - metFORMIN ER (GLUCOPHAGE XR) 500 mg 24 hr tablet Take 1 tablet by mouth once daily with breakfast - amLODIPine (NORVASC) 10 mg tablet Take 1 tablet by mouth once daily. - magnesium oxide (MAG-OX) 400 mg (241.3 mg magnesium) tablet Take 1 tablet by mouth once daily. - warfarin (COUMADIN) 5 mg tablet Take by mouth 10 mg daily, 15 mg on Sunday per Pt ( [facility] Heart group Dr. Kebede's monitors INR) - bumetanide (BUMEX) 1 mg tablet Take 1 tablet by mouth once daily. - aspirin 81 mg chewable tablet 81 mg. - senna (SENNA) 8.6 mg tab Take 2 tablets by mouth twice daily. - blood sugar diagnostic (BLOOD GLUCOSE TEST) test strip Test blood sugar(s) 1 times daily. Dx: Type 2 DM - Controlled E11.9 Insulin: No - Lancets lancets Test blood sugar(s) 1 times daily. Dx: Type 2 DM - Controlled E11.9 Insulin: No - silver sulfADIAZINE (SILVADENE,THERMAZENE) 1 % cream Apply 1 application to affected area once daily. - MULTIVITAMIN ORAL Take by mouth. Problem List As Of Date 04/29/2025 Noted Resolved Ataxia S/P CVA [I69.993] 03/16/2011 Essential hypertension [I10] 03/28/2011 Mixed hyperlipidemia [E78.2] 03/28/2011 History of stroke [Z86.73] 02/28/2014 BMI 40.0-44.9, adult ([facility]) [Z68.41] 02/23/2015 CAD (coronary artery disease) [I25.10] 10/22/2018 NSTEMI (non-ST elevated myocardial infarction) *10/22/2018 Cerebrovascular disease [I67.9] 10/22/2018 Aortic stenosis [I35.0] 10/22/2018 S/P CABG (coronary artery bypass graft) [Z95.1] 11/02/2018 S/P AVR [Z95.2] 11/02/2018 Acute urinary retention [R33.8] 11/04/2018 Paroxysmal atrial fibrillation (HCC) [I48.0] 11/24/2018 Venous ulcer, limited to breakdown of skin (HCC*04/29/2019 Pre-diabetes [R73.03] 05/27/2019 PATRICIA (obstructive sleep apnea) [G47.33] 11/01/2020 Chronic diastolic CHF (congestive heart failure*11/01/2020 Encounter Status:Closed by JESSICA DRAPER on 04/29/25 Normal [facility] INRon 04-27-2025 Interpretation and review of laboratory results Abnormal [facility] International normalized rat io (INR) calculationOrdered By: Rustam Kebede on 04-27-2025 INR Coag (Bld) [Relative time] 2.4 {INR} [facility] Prothrombin Time w/INRon INR Coag (PPP) [Relative time] 2.4 {INR} Normal [facility] Comment on above: Order Comment: Comme nts: STANDING ORDER Performed By: #### L 300.3900 #### [facility] Laboratory [address] [place], [place], [id number] PT Coag (PPP) [Time] 26.6 s High 11.7-14.9 [facility] Comment on above: Order Comment: Comme nts: STANDING ORDER Performed By: #### L 300.3900 #### [facility] [address] [place], [place], [id number] Prothrombin timeOrdered By: Rustam Kebede on 04-27-2025 PT Coag (PPP) [Time] 26.6 s High 11.7-14.9 [facility] CNPNon 03-16-2025 CNPN Telephone (MARIA EUGENIA) -------- HARRISON MILLIGAN ([id number]) 1940 M Date Time Provider Department 03/16/25 LATONIA YARBROUGH During your visit today, we recorded the following information about you: Jessica Draper LPN 03/16/2025 1:48 PM Signed Received inr result from [facility]. Placed in provider's inbox for review. Route to MA scanning Entered into pt chart Allergies As of Date: 03/16/2025 (No Known Allergies) Date Reviewed: 06/13/2024 Reviewed by: Elke Le LPN - Fully Assessed Reason for Visit: Coumadin/INR [1207] Cmt: [facility] Order(s):INR [[id number]] Order #: [id number] Prescriptions as of 03/16/2025 - atorvastatin (LIPITOR) 20 mg tablet Take 1 tablet by mouth once daily - metFORMIN ER (GLUCOPHAGE XR) 500 mg 24 hr tablet Take 1 tablet by mouth once daily with breakfast - amLODIPine (NORVASC) 10 mg tablet Take 1 tablet by mouth once daily. - magnesium oxide (MAG-OX) 400 mg (241.3 mg magnesium) tablet Take 1 tablet by mouth once daily. - warfarin (COUMADIN) 5 mg tablet Take by mouth 10 mg daily, 15 mg on Sunday per Pt ( [facility] Heart group Dr. Kebede's monitors INR) - bumetanide (BUMEX) 1 mg tablet Take 1 tablet by mouth once daily. - aspirin 81 mg chewable tablet 81 mg. - senna (SENNA) 8.6 mg tab Take 2 tablets by mouth twice daily. - blood sugar diagnostic (BLOOD GLUCOSE TEST) test strip Test blood sugar(s) 1 times daily. Dx: Type 2 DM - Controlled E11.9 Insulin: No - Lancets lancets Test blood sugar(s) 1 times daily. Dx: Type 2 DM - Controlled E11.9 Insulin: No - silver sulfADIAZINE (SILVADENE,THERMAZENE) 1 % cream Apply 1 application to affected area once daily. - MULTIVITAMIN ORAL Take by mouth. Problem List As Of Date 03/16/2025 Noted Resolved Ataxia S/P CVA [I69.993] 03/16/2011 Essential hypertension [I10] 03/28/2011 Mixed hyperlipidemia [E78.2] 03/28/2011 History of stroke [Z86.73] 02/28/2014 BMI 40.0-44.9, adult (HCC) [Z68.41] 02/23/2015 CAD (coronary artery disease) [I25.10] 10/22/2018 NSTEMI (non-ST elevated myocardial infarction) *10/22/2018 Cerebrovascular disease [I67.9] 10/22/2018 Aortic stenosis [I35.0] 10/22/2018 S/P CABG (coronary artery bypass graft) [Z95.1] 11/02/2018 S/P AVR [Z95.2] 11/02/2018 Acute urinary retention [R33.8] 11/04/2018 Paroxysmal atrial fibrillation (HCC) [I48.0] 11/24/2018 Venous ulcer, limited to breakdown of skin (HCC*04/29/2019 Pre-diabetes [R73.03] 05/27/2019 PATRICIA (obstructive sleep apnea) [G47.33] 11/01/2020 Chronic diastolic CHF (congestive heart failure*11/01/2020 Encounter Status:Closed by JESSICA DRAPER on 03/16/25 Normal [facility] INRon 03-13-2025 Interpretation and review of laboratory results Abnormal [facility] International normalized rat io (INR) calculationOrdered By: Rustam Kebede on 03-13-2025 INR Coag (Bld) [Relative time] 2.1 {INR} [facility] Prothrombin Time w/INRon INR Coag (PPP) [Relative time] 2.1 {INR} Normal [facility] Comment on above: Performed By: #### L 300.3900 #### [facility] [address] [place], [address] PT Coag (PPP) [Time] 24.2 s High 11.7-14.9 [facility] Comment on above: Performed By: #### L 300.3900 #### [facility] [address] [place], [place], [id number] Prothrombin timeOrdered By: Rustam Kebede on 03-13-2025 PT Coag (PPP) [Time] 24.2 s High 11.7-14.9 [facility] CNPNon 01-27-2025 CNPN Telephone (FMWAAppiny) -------- HARRISON MILLIGAN ([id number]) 1940 M Date Time Provider Department 01/27/25 LATONIA YARBROUGH During your visit today, we recorded the following information about you: Jessica Draper LPN 01/27/2025 2:50 PM Signed Received inr result 2.4 from [facility]. Placed in provider's inbox for review. Route to MA scanning Entered into pt chart Allergies As of Date: 01/27/2025 (No Known Allergies) Date Reviewed: 06/13/2024 Reviewed by: Elke Le LPN - Fully Assessed Reason for Visit: Results [95] Cmt: INR [facility] 01/26/25 (2.4) Order(s):INR [[id number]] Order #: [id number] Prescriptions as of 01/27/2025 - atorvastatin (LIPITOR) 20 mg tablet Take 1 tablet by mouth once daily - metFORMIN ER (GLUCOPHAGE XR) 500 mg 24 hr tablet Take 1 tablet by mouth once daily with breakfast - amLODIPine (NORVASC) 10 mg tablet Take 1 tablet by mouth once daily. - magnesium oxide (MAG-OX) 400 mg (241.3 mg magnesium) tablet Take 1 tablet by mouth once daily. - warfarin (COUMADIN) 5 mg tablet Take by mouth 10 mg daily, 15 mg on Sunday per Pt ( [facility] Heart group Dr. Kebede's monitors INR) - bumetanide (BUMEX) 1 mg tablet Take 1 tablet by mouth once daily. - aspirin 81 mg chewable tablet 81 mg. - senna (SENNA) 8.6 mg tab Take 2 tablets by mouth twice daily. - blood sugar diagnostic (BLOOD GLUCOSE TEST) test strip Test blood sugar(s) 1 times daily. Dx: Type 2 DM - Controlled E11.9 Insulin: No - Lancets lancets Test blood sugar(s) 1 times daily. Dx: Type 2 DM - Controlled E11.9 Insulin: No - silver sulfADIAZINE (SILVADENE,THERMAZENE) 1 % cream Apply 1 application to affected area once daily. - MULTIVITAMIN ORAL Take by mouth. Problem List As Of Date 01/27/2025 Noted Resolved Ataxia S/P CVA [I69.993] 03/16/2011 Essential hypertension [I10] 03/28/2011 Mixed hyperlipidemia [E78.2] 03/28/2011 History of stroke [Z86.73] 02/28/2014 BMI 40.0-44.9, adult (HCC) [Z68.41] 02/23/2015 CAD (coronary artery disease) [I25.10] 10/22/2018 NSTEMI (non-ST elevated myocardial infarction) *10/22/2018 Cerebrovascular disease [I67.9] 10/22/2018 Aortic stenosis [I35.0] 10/22/2018 S/P CABG (coronary artery bypass graft) [Z95.1] 11/02/2018 S/P AVR [Z95.2] 11/02/2018 Acute urinary retention [R33.8] 11/04/2018 Paroxysmal atrial fibrillation (HCC) [I48.0] 11/24/2018 Venous ulcer, limited to breakdown of skin (HCC*04/29/2019 Pre-diabetes [R73.03] 05/27/2019 PATRICIA (obstructive sleep apnea) [G47.33] 11/01/2020 Chronic diastolic CHF (congestive heart failure*11/01/2020 Encounter Status:Closed by JESSICA DRAPER on 01/27/25 Normal [facility] INRon 01-26-2025 Interpretation and review of laboratory results Abnormal [facility] International normalized rat io (INR) calculationOrdered By: Rustam Kebede on 01-26-2025 INR Coag (Bld) [Relative time] 2.4 {INR} [facility] Prothrombin Time w/INRon INR Coag (PPP) [Relative time] 2.4 {INR} Normal [facility] Comment on above: Performed By: #### L 783.3900 #### [facility] [address] [place], [address] Prothrombin timeon PT Coag (PPP) [Time] 26.4 s High 11.7-14.9 [facility] Comment on above: Performed By: #### L 300.3907 #### [facility] [address] [place], [address] CNPNon 01-06-2025 CNPN Telephone (MARIA EUGENIA) -------- HARRISON MILLIGAN ([id number]) 1940 M Date Time Provider Department 01/06/25 LATONIA YARBROUGH During your visit today, we recorded the following information about you: Jessica Draper LPN 01/06/2025 10:57 AM Signed Received visit summary from [facility]. Placed in provider's inbox for review. Route to MA scanning Allergies As of Date: 01/06/2025 (No Known Allergies) Date Reviewed: 06/13/2024 Reviewed by: Elke Le LPN - Fully Assessed Reason for Visit: Received Outside Medical Records [0616] Cmt: [facility] Prescriptions as of 01/06/2025 - atorvastatin (LIPITOR) 20 mg tablet Take 1 tablet by mouth once daily - metFORMIN ER (GLUCOPHAGE XR) 500 mg 24 hr tablet Take 1 tablet by mouth once daily with breakfast - amLODIPine (NORVASC) 10 mg tablet Take 1 tablet by mouth once daily. - magnesium oxide (MAG-OX) 400 mg (241.3 mg magnesium) tablet Take 1 tablet by mouth once daily. - warfarin (COUMADIN) 5 mg tablet Take by mouth 10 mg daily, 15 mg on Sunday per Pt ( [facility] Heart group Dr. Kebede's monitors INR) - bumetanide (BUMEX) 1 mg tablet Take 1 tablet by mouth once daily. - aspirin 81 mg chewable tablet 81 mg. - senna (SENNA) 8.6 mg tab Take 2 tablets by mouth twice daily. - blood sugar diagnostic (BLOOD GLUCOSE TEST) test strip Test blood sugar(s) 1 times daily. Dx: Type 2 DM - Controlled E11.9 Insulin: No - Lancets lancets Test blood sugar(s) 1 times daily. Dx: Type 2 DM - Controlled E11.9 Insulin: No - silver sulfADIAZINE (SILVADENE,THERMAZENE) 1 % cream Apply 1 application to affected area once daily. - MULTIVITAMIN ORAL Take by mouth. Problem List As Of Date 01/06/2025 Noted Resolved Ataxia S/P CVA [I69.993] 03/16/2011 Essential hypertension [I10] 03/28/2011 Mixed hyperlipidemia [E78.2] 03/28/2011 History of stroke [Z86.73] 02/28/2014 BMI 40.0-44.9, adult (HCC) [Z68.41] 02/23/2015 CAD (coronary artery disease) [I25.10] 10/22/2018 NSTEMI (non-ST elevated myocardial infarction) *10/22/2018 Cerebrovascular disease [I67.9] 10/22/2018 Aortic stenosis [I35.0] 10/22/2018 S/P CABG (coronary artery bypass graft) [Z95.1] 11/02/2018 S/P AVR [Z95.2] 11/02/2018 Acute urinary retention [R33.8] 11/04/2018 Paroxysmal atrial fibrillation (HCC) [I48.0] 11/24/2018 Venous ulcer, limited to breakdown of skin (HCC*04/29/2019 Pre-diabetes [R73.03] 05/27/2019 PATRICIA (obstructive sleep apnea) [G47.33] 11/01/2020 Chronic diastolic CHF (congestive heart failure*11/01/2020 Encounter Status:Closed by JESSICA DRAPER on 01/06/25 Normal [facility] Cardiology Visit Reporton Cardiology Visit Report [facility] [address] [place], [place] [address] OFFICE VISIT Date of Service: 01/06/25 MR#: [id number] Acct: [id number] Name: HARRISON MILLIGAN Rep #: [id number] : 1940 Provider: Dr. Rustam Kebede MD Age/Sex: 84/M [place] [facility] [place]: Signed HPI HPI History of Present Illness Details: This is a 84-year-old gentleman that presents here today for a cardiovascular follow-up. He was hospitalized at [facility] on October 19, 2018 for chest discomfort, confusion and expressive aphasia. He was noted to have a non-ST myocardial infarction. He underwent a heart catheterization which demonstrated left main coronary artery with distal 50% stenosis, LAD with diffuse long 70% stenosis, left circumflex with mild coronary artery disease, dominant RCA with no high-grade stenosis with a preserved ejection fraction. He was also noted to have severe aortic stenosis with severe aortic regurgitation and a severely calcified aortic valve. He was noted to have mild mitral calcification with mild regurgitation. Patient was transferred to to [facility] to undergo bypass surgery and aortic valve replacement. On October 29, 2018, he underwent bypass surgery with an RAMOS to the LAD, reverse SVG to the diagonal branch with the obtuse marginal branch with endoscopic vein harvesting, and aortic valve replacement with a 23 mm [place]y pericardial prosthesis. He does have a history of hypertension, hyperlipidemia, and CVA without any neurological deficits in 2010. He was admitted to the hospital in September 2021 and underwent a transesophageal echocardiogram twice initially there was a suggestion of an echodensity on the aortic side of the prosthetic valve and he had a repeat echocardiogram in October 2021 which demonstrated no evidence of a vegetation on the bioprosthetic aortic valve. He has done well since then. He still has some pedal edema which is blistering. He denies chest, arm, jaw, or neck discomfort. He denies palpitations. He acknowledges ongoing bilateral lower extremity edema that is unchanged from previous. He denies claudication. He states shortness of breath with activity such as carrying bee hives. He denies shortness of breath at rest, orthopnea, or PND. He denies chronic cough. He denies significant, sudden weight gain. He denies lightheadedness, dizziness, near-syncope, or syncope. He denies blood in urine, blood in stool, or epistaxis. He denies fever or chills. He denies myalgia. He denies fatigue. His exercise level has remained stable, though minimal. Intake Vital Signs 11/08/23 10:17 01/06/25 09:50 Height 5 ft 11 in 5 ft 11 in Weight: 291 lb BMI 40.6 BP 139/76 H Blood Pressure Location Lt brachial Position Sitting Respiration 18 Pulse 74 Pulse Source Monitor Intake Visit Reasons: 1 Y FU Zanjero Required: No Accompanied by: Significant Other Is patient in pain?: No Allergies No Known Allergies Allergy (Verified 01/06/25 09:54) Medications ???Medication ???Instructions ???Recorded ???Confirmed ???Type multivitamin with minerals 1 tab PO DAILY supplement 10/18/18 01/06/25 History magnesium oxide 400 mg PO DAILY Check with primary 09/18/21 01/06/25 History doctor acetaminophen 325 mg tablet 650 mg (2 x 325 mg) PO Q6H PRN PRN 09/29/21 01/06/25 Rx (Tylenol) Pain 1-10 Or Fever #0 tabs atorvastatin 20 mg tablet 20 mg PO QHS #0 tabs 09/29/2112/19 Rx sennosides 8.6 mg-docusate sodium 2 tab PO BID #0 tabs 09/29/21 Rx 50 mg tablet (Stool Softener-Stimulant Laxative) aspirin 81 mg capsule 81 mg PO DAILY 10/29/21 01/06/25 H istory metformin 500 mg tablet,extended 500 mg PO DAILY 03/16/22 01/06/25 History release 24 hr warfarin 5 mg tablet 5 mg PO .COMPLEX #90 tabs 03/24/24 01/06/25 Rx warfarin 10 mg tablet 10 mg PO .COMPLEX #90 tabs 4 01/06/25 Rx losartan 50 mg-hydrochlorothiazide 1 tab PO QDAY #90 tabs 01/06/25 01/06/25 Rx 12.5 mg tablet Have you fallen in the past year?: No [facility] History Staphylococcus epidermidis bacteremia (09/2021) Atrial flutter (10/06/21) Second degree AV block, Mobitz type II (10/06/21) Complete heart block (10/06/21) COVID (09/14/21) Left ventricular diastolic dysfunction Constipation Acute respiratory failure with hypoxia Wears hearing aid in both ears Deafness in left ear Anticoagulated on Coumadin Fall Generalized weakness COVID-19 (09/11/21) History of CVA (cerebrovascular accident) (2010) Chronic diastolic (congestive) heart failure Venous insufficiency of both lower extremities Paroxysmal atrial fibrillation Postoperative atrial fibrillation Venous insufficiency of left leg Obstructive sleep apnea (more content not included)... Normal [facility] ALBUMIN/CREATININE RATIO, UR INEon 01-01-2025 Albumin DL <= 20 mg/L (U) [Mass/Vol] mg/dL Normal [facility] Comment on above: Order Comment: Speci men Type: URINE SPECIMENOrdering Facility: [facility] Address: [address] [place] [address] Performed By: #### U ACR ####[facility] LABCLIA [id number] [place] [address] [place] Albumin/Creatinine (U) [Mass ratio] <15 Normal <30 [facility] Comment on above: Order Comment: Speci men Type: URINE SPECIMENOrdering Facility: [facility] Address: [address] [place] [address] Result Comment: Adul t Male and Female Nephrotic Criteria: <30 mg/g is considered normal to mildly increased 30-300 mg/g is considered moderately increased >300 mg/g is considered severely increased KDIGO. (2013). KDIGO 2012 Clinical Practice Guideline for the Evaluation and Management of Chronic Kidney Disease. Official Journal of the International Society of Nephrology, 3(1), 1-150. Performed By: #### U ACR ####[facility] LABIA [id number] [place] [address] [place] Creatinine (U) [Mass/Vol] 77.9 mg/dL Normal 20.0-300.0 [facility] Comment on above: Order Comment: Speci men Type: URINE SPECIMENOrdering Facility: [facility] Address: [address] [place] [address] Performed By: #### U ACR ####[facility] LABCLIA [id number] [address] [address] [place] Comprehensive metabolic 2000 panelon 12-31-2024 Albumin [Mass/Vol] 3.9 g/dL Normal 3.9-4.9 [facility] Comment on above: Order Comment: Speci men Type: BLOOD SPECIMENOrdering Facility: [facility] Address: [address] [place] [address] Performed By: #### 2 4331-1, 51381-2 ####[facility] LABCLIA [id number] [facility] [place] [id number] [address] [place] [place] ALP [Catalytic activity/Vol] 108 U/L Normal 38-113 [facility] Comment on above: Order Comment: Speci men Type: BLOOD SPECIMENOrdering Facility: [facility] Address: [address] [place] [address] Performed By: #### 2 4331-1, 87013-8 ####[facility] LABCLIA [id number] [facility] [id number] [address] [place] ALT [Catalytic activity/Vol] 23 U/L Normal 10-54 [facility] Comment on above: Order Comment: Speci men Type: BLOOD SPECIMENOrdering Facility: [facility] Address: [address] [place] [address] Performed By: #### 2 4331-1, 22055-9 ####[facility] LABCLIA [id number] [address], [id number] [place] Anion gap [Moles/Vol] 12 mmol/L Normal 8-15 [facility] Comment on above: Order Comment: Speci men Type: BLOOD SPECIMENOrdering Facility: [facility] Address: [address] [place] [address] Performed By: #### 2 4331-1, 28156-1 ####[facility] LABCLIA [id number] [address] [place] [address] [place] AST [Catalytic activity/Vol] 22 U/L Normal 14-40 [facility] Comment on above: Order Comment: Speci men Type: BLOOD SPECIMENOrdering Facility: [facility] Address: [address] [place] [address] Performed By: #### 2 4331-1, 04345-3 ####[facility] LABCLIA [id number] [address] [place] [address] [place] Bilirubin [Mass/Vol] 0.6 mg/dL Normal 0.2-1.3 [facility] Comment on above: Order Comment: Speci men Type: BLOOD SPECIMENOrdering Facility: [facility] Address: [address] [id number] Performed By: #### 2 4331-1, ####[facility] LABCLIA [id number] [facility] [address] [address] [place] Calcium [Mass/Vol] 9.3 mg/dL Normal 8.5-10.2 [facility] Comment on above: Order Comment: Speci men Type: BLOOD SPECIMENOrdering Facility: [facility] Address: [address] [place] [address] Performed By: #### 2 4331-1, ####[facility] LABCLIA [id number] [place] [id number] [place] Chloride [Moles/Vol] 108 mmol/L High 98-107 [facility] Comment on above: Order Comment: Speci men Type: BLOOD SPECIMENOrdering Facility: [facility] Address: [address] [place], [place] [address] Performed By: #### 2 4331-, ####[facility] LABCLIA [id number] [facility] [place] [id number] [place] CO2 [Moles/Vol] 23 mmol/L Normal 22-30 [facility] Comment on above: Order Comment: Speci men Type: BLOOD SPECIMENOrdering Facility: [facility] Address: [address] [place] [address] Performed By: #### 2 4331-1, ####[facility] LABCLIA [id number] [facility] [place] [id number] [place] Creatinine [Mass/Vol] 1.02 mg/dL Normal 0.73-1.22 [facility] Comment on above: Order Comment: Speci men Type: BLOOD SPECIMENOrdering Facility: [facility] Address: [address] [place] [address] Performed By: #### 2 4331-1, 71454-0 ####[facility] [id number] [place] [address] [place] Creatinine and Glomerular filtration rate.predicted panel (S/P/Bld) 73 mL/min/1.73m??? Normal >=60 [facility] Comment on above: Order Comment: Luke elliott Type: BLOOD SPECIMENOrdering Facility: [facility] Address: [address] [place] [address] Result Comment: Kareen mated Glomerular Filtration Rate (eGFR) is calculated using the 2020 CKD-EPI creatinine equation. This equation utilizes serum creatinine, sex, and age as parameters. The creatinine assay has traceable calibration to isotope dilution-mass spectrometry. Refer to KDIGO guidelines for clinical interpretation. In patients with unstable renal function, e.g. those with acute kidney injury, the eGFR may not accurately reflect actual GFR. Performed By: #### 2 4331-1, 62727-5 ####[facility] LABIA [id number] [place] [address] [place] Glucose [Mass/Vol] 102 mg/dL High 74-99 [facility] Comment on above: Order Comment: Luke elliott Type: BLOOD SPECIMENOrdering Facility: [facility] Address: [address] [place] [address] Result Comment: The [place] Diabetes Association (ADA) provides guidance for cutoff values for fasting glucose and random glucose. The ADA defines fasting as no caloric intake for at least 8 hours. Fasting plasma glucose results between 100 to 125 mg/dL indicate increased risk for diabetes (prediabetes). Fasting plasma glucose results greater than or equal to 126 mg/dL meet the criteria for diagnosis of diabetes. In the absence of unequivocal hyperglycemia, results should be confirmed by repeat testing. In a patient with classic symptoms of hyperglycemia or hyperglycemic crisis, random plasma glucose results greater than or equal to 200 mg/dL meet the criteria for diagnosis of diabetes. Reference: Standards of Medical Care in Diabetes 2016, [place] Diabetes Association. Diabetes Care. 2016.39(Suppl 1). Performed By: #### 2 4331-1, ####[facility] LABCLIA [id number] [facility] [address] [place] [address] [place] Potassium [Moles/Vol] 4.3 mmol/L Normal 3.7-5.1 [facility] Comment on above: Order Comment: Speci men Type: BLOOD SPECIMENOrdering Facility: [facility] Address: [address] [place] [address] Performed By: #### 2 4331-, ####[facility] LABCLIA [id number] [facility] [address] [place] [address] [place] Protein [Mass/Vol] 6.7 g/dL Normal 6.3-8.0 [facility] Comment on above: Order Comment: Speci men Type: BLOOD SPECIMENOrdering Facility: [facility] Address: [address] [place] [address] Performed By: #### 2 433-, ####[facility] LABCLIA [id number] [address] [place] [address] [place] Sodium [Moles/Vol] 143 mmol/L Normal 136-144 [facility] Comment on above: Order Comment: Speci men Type: BLOOD SPECIMENOrdering Facility: [facility] Address: [address] [place] [address] Performed By: #### 2 4331-, ####[facility] LABCLIA [id number] [facility] [address] [place] [address] [place] Urea nitrogen [Mass/Vol] 21 mg/dL Normal 9-24 [facility] Comment on above: Order Comment: Speci men Type: BLOOD SPECIMENOrdering Facility: [facility] Address: [address] [place], [place] [address] Performed By: #### 2 4331-1, ####[facility] LABCLIA [id number] [address] [id number], [place] [address] [place] HbA1c (Bld)on 12-31-2024 Average glucose Estimated from glycated hemoglobin (Bld) [Mass/Vol] 123 mg/dL Normal [facility] Comment on above: Order Comment: Luke elliott Type: BLOOD SPECIMENOrdering Facility: [facility] Address: [address] [place] [address] Result Comment: eAG: (Estimated average glucose) is a calculated value from HgbA1c and is telemarketing sales representative of the average blood glucose level in the last 2-3 month period. Performed By: #### 5 5454-3 ####[facility] LABCLIA [id number] [facility] [address] [place] HbA1c (Bld) [Mass fraction] 5.9 % High 4.3-5.6 [facility] Comment on above: Order Comment: Luke elliott Type: BLOOD SPECIMENOrdering Facility: [facility] Address: [address] [place] [address] Result Comment: [place] Diabetes Association guidelines indicate that patients with HgbA1c in the range 5.7-6.4% are at increased risk for development of diabetes, and intervention by lifestyle modification may be beneficial. HgbA1c greater or equal to 6.5% is considered diagnostic of diabetes. Performed By: #### 5 5454-3 ####[facility] LABCLIA [id number] [place] [id number] [place] Lipid 1996 panelon Cholesterol [Mass/Vol] 146 mg/dL Normal <200 [facility] Comment on above: Order Comment: Luke elliott Type: BLOOD SPECIMENOrdering Facility: [facility] Address: [address] [place] [address] Result Comment: <200 mg/dL, Desirable 200-239 mg/dL, Borderline high >239 mg/dL, High Performed By: #### 2 4331-1, 77611-8 ####[facility] LABIA [id number] [address] [place] Cholesterol in HDL [Mass/Vol] 44 mg/dL Normal >39 [facility] Comment on above: Order Comment: Luke elliott Type: BLOOD SPECIMENOrdering Facility: [facility] Address: [address] [place] [address] Result Comment: 40-5 9 mg/dL, Acceptable >59 mg/dL, High: Negative risk factor for coronary heart disease <40 mg/dL, Low: Positive risk factor for coronary heart disease Performed By: #### 2 4331-1, 05266-0 ####[facility] LABCLIA [id number] [place] [address] [place] Cholesterol in LDL [Mass/Vol] 84 mg/dL Normal <100 [facility] Comment on above: Order Comment: Argentinai earl Type: BLOOD SPECIMENOrdering Facility: [facility] Address: [address] [place] [address] Result Comment: <100 mg/dL, Optimal 100-129 mg/dL, Near optimal/above optimal 130-159 mg/dL, Borderline high 160-189 mg/dL, High >189 mg/dL, Very high Secondary prevention optimal LDL Cholesterol levels are recommended to be <70 mg/dL LDL cholesterol is calculated using the Amaya-NIH equation. Performed By: #### 2 4331-, 32371-8 ####[facility] LABCLIA [id number] [address] [place] Cholesterol in LDL/Cholesterol in HDL [Mass ratio] 1.91 {ratio} Normal <2.54 [facility] Comment on above: Order Comment: Luke elliott Type: BLOOD SPECIMENOrdering Facility: [facility] Address: [address] [place] [address] Result Comment: Refe rence: 1. National Cholesterol Education Program ATP III Guideline At-A-Glance Quick Desk Reference: National Heart, Lung, and Blood [place]. National Institutes of Health. 2001: NIH Publication No. 01-3305. 2. An International Atherosclerosis Society position paper: global recommendations for the management of dyslipidemia: executive summary, Atherosclerosis. 2014: 232(2):410-413. Performed By: #### 2 4331-1, 21188-3 ####[facility] LABCLIA [id number] [facility] [id number], [place] [address] [place] Cholesterol in VLDL [Mass/Vol] 15 mg/dL Normal <30 [facility] Comment on above: Order Comment: Speci men Type: BLOOD SPECIMENOrdering Facility: [facility] Address: [address] [place], [place] [address] Performed By: #### 2 4331-1, 32404-0 ####[facility] LABCLIA [id number] [address] [place] [address] [place] Cholesterol non HDL [Mass/Vol] 102 mg/dL Normal <130 [facility] Comment on above: Order Comment: Speci men Type: BLOOD SPECIMENOrdering Facility: [facility] Address: [address] [place] [address] Result Comment: <130 mg/dL, Optimal 130-159 mg/dL, Near optimal/above optimal 160-189 mg/dL, Borderline high 190-219 mg/dL, High >219 mg/dL, Very high Secondary prevention optimal non HDL Cholesterol levels are recommended to be <100 mg/dL Performed By: #### 2 4331-1, 24314-9 ####[facility] LABIA [id number] [address] [place] [address] [place] Cholesterol.total/Ch olesterol in HDL [Mass ratio] 3.32 {ratio} Normal <5.10 [facility] Comment on above: Order Comment: Speci men Type: BLOOD SPECIMENOrdering Facility: [facility] Address: [address] [place] [address] Performed By: #### 2 4331-1, 96911-2 ####[facility] LABIA [id number] [address] [place] [address] [place] FASTING TIME 12 hrs Normal [facility] Comment on above: Order Comment: Speci men Type: BLOOD SPECIMENOrdering Facility: [facility] Address: [address] [place], [place] [address] Performed By: #### 2 4331-1, 64377-5 ####[facility] LABIA [id number] [address] STATES OF [facility] Triglyceride [Mass/Vol] 97 mg/dL Normal <150 [facility] Comment on above: Order Comment: Speci men Type: BLOOD SPECIMENOrdering Facility: [facility] Address: [address] [place] [address] Result Comment: <150 mg/dL, Normal 150-199 mg/dL, Borderline high 200-499 mg/dL, High >499 mg/dL, Very high Performed By: #### 2 4331-1, 70377-1 ####[facility] LABIA [id number] [address] OF [facility] CNPFransisca 12-24-2024 CNPN Telephone (MARIA EUGENIA) -------- HARRISON MILLIGAN ([id number]) 1940 M Date Time Provider Department 12/24/24 LATONIA YARBROUGH During your visit today, we recorded the following information about you: Jessica Draper LPN 12/24/2024 4:32 PM Signed Received inr result 3.0 12/23/24 from [facility]. Placed in provider's inbox for review. Route to [place] scanning Entered into pt chart Allergies As of Date: 12/24/2024 (No Known Allergies) Date Reviewed: 06/13/2024 Reviewed by: Elke Le LPN - Fully Assessed Reason for Visit: Coumadin/INR [1207] Cmt: Inr 3.0 12/23/24 Order(s):INR [[id number]] Order #: [id number] Prescriptions as of 12/24/2024 - amLODIPine (NORVASC) 10 mg tablet Take 1 tablet by mouth once daily. - metFORMIN ER (GLUCOPHAGE XR) 500 mg 24 hr tablet Take 1 tablet by mouth once daily with breakfast - magnesium oxide (MAG-OX) 400 mg (241.3 mg magnesium) tablet Take 1 tablet by mouth once daily. - atorvastatin (LIPITOR) 20 mg tablet Take 1 tablet by mouth once daily. - warfarin (COUMADIN) 5 mg tablet Take by mouth 10 mg daily, 15 mg on Sunday per Pt ( [facility] Heart group Dr. Kebede's monitors INR) - tamsulosin (FLOMAX) 0.4 mg Take 1 capsule daily until the Rx is finished, then stop - bumetanide (BUMEX) 1 mg tablet Take 1 tablet by mouth once daily. - Psyllium Husk-Sucrose 3.4 gram/7 gram powd 1.7 g. - aspirin 81 mg chewable tablet 81 mg. - polyethylene glycol 3350 (MIRALAX, GLYCOLAX) 17 gram/dose powder Take by mouth. - senna (SENNA) 8.6 mg tab Take 2 tablets by mouth twice daily. - blood sugar diagnostic (BLOOD GLUCOSE TEST) test strip Test blood sugar(s) 1 times daily. Dx: Type 2 DM - Controlled E11.9 Insulin: No - Lancets lancets Test blood sugar(s) 1 times daily. Dx: Type 2 DM - Controlled E11.9 Insulin: No - silver sulfADIAZINE (SILVADENE,THERMAZENE) 1 % cream Apply 1 application to affected area once daily. - MULTIVITAMIN ORAL Take by mouth. Problem List As Of Date 12/24/2024 Noted Resolved Ataxia S/P CVA [I69.993] 03/16/2011 Essential hypertension [I10] 03/28/2011 Mixed hyperlipidemia [E78.2] 03/28/2011 History of stroke [Z86.73] 02/28/2014 BMI 40.0-44.9, adult (HCC) [Z68.41] 02/23/2015 CAD (coronary artery disease) [I25.10] 10/22/2018 NSTEMI (non-ST elevated myocardial infarction) *10/22/2018 Cerebrovascular disease [I67.9] 10/22/2018 Aortic stenosis [I35.0] 10/22/2018 S/P CABG (coronary artery bypass graft) [Z95.1] 11/02/2018 S/P AVR [Z95.2] 11/02/2018 Acute urinary retention [R33.8] 11/04/2018 Paroxysmal atrial fibrillation (HCC) [I48.0] 11/24/2018 Venous ulcer, limited to breakdown of skin (HCC*04/29/2019 Pre-diabetes [R73.03] 05/27/2019 PATRICIA (obstructive sleep apnea) [G47.33] 11/01/2020 Chronic diastolic CHF (congestive heart failure*11/01/2020 Encounter Status:Closed by JESSICA DRAPER on 12/24/24 Normal [facility] INRon 12-23-2024 INR Coag (PPP) [Relative time] 3 {INR} Abnormal 0.81 - 1.21 [facility] Interpretation and review of laboratory results Abnormal [facility] International normalized rat io (INR) calculationOrdered By: Rustam Kebede on 12-23-2024 INR Coag (Bld) [Relative time] 3.0 {INR} [facility] Prothrombin Time w/INRon INR Coag (PPP) [Relative time] 3.0 {INR} Normal [facility] Comment on above: Performed By: #### L 300.3900 #### [facility] Laboratory [address] [facility] [place], [address] PT Coag (PPP) [Time] 32.2 s High 11.7-14.9 [facility] Comment on above: Performed By: #### L 300.3900 #### [facility] [address] [place], [address] Prothrombin timeOrdered By: Rustam Kebede on 12-23-2024 PT Coag (PPP) [Time] 32.2 s High 11.7-14.9 [facility] CNPNon 10-21-2024 [place] Telephone (FPWAJIMMY) -------- HARRISON MILLIGAN ([id number]) 1940 M Date Time Provider Department 10/21/24 LATONIA YARBROUGH During your visit today, we recorded the following information about you: Elke Le LPN 10/21/2024 2:18 PM Signed Received 10/21/2024 from [facility] (Dr Kebede manages). Placed in provider's inbox for review. Route to [place] for scanning. Allergies As of Date: 10/21/2024 (No Known Allergies) Date Reviewed: 06/13/2024 Reviewed by: Elke Le LPN - Fully Assessed Reason for Visit: Anticoagulation [8] Cmt: [facility] INR 2.3 10/21/2024 Order(s):INR [[id number]] Order #: [id number] Prescriptions as of 10/21/2024 - metFORMIN ER (GLUCOPHAGE XR) 500 mg 24 hr tablet Take 1 tablet by mouth once daily with breakfast - magnesium oxide (MAG-OX) 400 mg (241.3 mg magnesium) tablet Take 1 tablet by mouth once daily. - atorvastatin (LIPITOR) 20 mg tablet Take 1 tablet by mouth once daily. - amLODIPine (NORVASC) 10 mg tablet Take 1 tablet by mouth once daily. - warfarin (COUMADIN) 5 mg tablet Take by mouth 10 mg daily, 15 mg on Sunday per Pt ( [facility] Heart group Dr. Kebede's monitors INR) - tamsulosin (FLOMAX) 0.4 mg Take 1 capsule daily until the Rx is finished, then stop - bumetanide (BUMEX) 1 mg tablet Take 1 tablet by mouth once daily. - Psyllium Husk-Sucrose 3.4 gram/7 gram powd 1.7 g. - aspirin 81 mg chewable tablet 81 mg. - polyethylene glycol 3350 (MIRALAX, GLYCOLAX) 17 gram/dose powder Take by mouth. - senna (SENNA) 8.6 mg tab Take 2 tablets by mouth twice daily. - blood sugar diagnostic (BLOOD GLUCOSE TEST) test strip Test blood sugar(s) 1 times daily. Dx: Type 2 DM - Controlled E11.9 Insulin: No - Lancets lancets Test blood sugar(s) 1 times daily. Dx: Type 2 DM - Controlled E11.9 Insulin: No - silver sulfADIAZINE (SILVADENE,THERMAZENE) 1 % cream Apply 1 application to affected area once daily. - MULTIVITAMIN ORAL Take by mouth. Problem List As Of Date 10/21/2024 Noted Resolved Ataxia S/P CVA [I69.993] 03/16/2011 Essential hypertension [I10] 03/28/2011 Mixed hyperlipidemia [E78.2] 03/28/2011 History of stroke [Z86.73] 02/28/2014 BMI 40.0-44.9, adult (HCC) [Z68.41] 02/23/2015 CAD (coronary artery disease) [I25.10] 10/22/2018 NSTEMI (non-ST elevated myocardial infarction) *10/22/2018 Cerebrovascular disease [I67.9] 10/22/2018 Aortic stenosis [I35.0] 10/22/2018 S/P CABG (coronary artery bypass graft) [Z95.1] 11/02/2018 S/P AVR [Z95.2] 11/02/2018 Acute urinary retention [R33.8] 11/04/2018 Paroxysmal atrial fibrillation (HCC) [I48.0] 11/24/2018 Venous ulcer, limited to breakdown of skin (HCC*04/29/2019 Pre-diabetes [R73.03] 05/27/2019 PATRICIA (obstructive sleep apnea) [G47.33] 11/01/2020 Chronic diastolic CHF (congestive heart failure*11/01/2020 Encounter Status:Closed by ELKE LE on 10/21/24 Normal [facility] INRon 10-21-2024 Interpretation and review of laboratory results Abnormal [facility] International normalized rat io (INR) calculationOrdered By: Rustam Kebede on 10-21-2024 INR Coag (Bld) [Relative time] 2.3 {INR} [facility] Prothrombin Time w/INRon INR Coag (PPP) [Relative time] 2.3 {INR} Normal [facility] Comment on above: Performed By: #### L 947.7986 #### [facility] [address] [place], [address] PT Coag (PPP) [Time] 25.6 s High 11.7-14.9 [facility] Comment on above: Performed By: #### L 300.3900 #### [facility] [address] [place], [place], [address] Prothrombin timeOrdered By: Rustam Yandy on 10-21-2024 PT Coag (PPP) [Time] 25.6 s High 11.7-14.9 [facility] International normalized rat io (INR) calculationOrdered By: [place] Yandy on 09-03-2024 INR Coag (Bld) [Relative time] 2.1 {INR} [facility] Prothrombin Time w/INRon INR Coag (PPP) [Relative time] 2.1 {INR} Normal [facility] Comment on above: Performed By: #### L 300.3900 #### [facility] [address] [place], [address] PT Coag (PPP) [Time] 24.0 s High 11.7-14.9 [facility] Comment on above: Performed By: #### L 300.3900 #### [facility] [address] [place], [address] Prothrombin timeOrdered By: [place] Yandy on 09-03-2024 PT Coag (PPP) [Time] 24.0 s High 11.7-14.9 [facility] Amalia 07-22-2024 [place] Telephone (MARIA EUGENIA) -------- HARRISON MILLIGAN ([id number]) 1940 M Date Time Provider Department 07/22/24 REBECA DALLAS During your visit today, we recorded the following information about you: Rebeca Dallas APRN.CNP 07/22/2024 2:30 PM Signed [facility] coumadin Rebeca Dallas APRN.CNP Allergies As of Date: 07/22/2024 (No Known Allergies) Date Reviewed: 06/13/2024 Reviewed by: Elke Le LPN - Fully Assessed Prescriptions as of 07/22/2024 - metFORMIN ER (GLUCOPHAGE XR) 500 mg 24 hr tablet Take 1 tablet by mouth once daily with breakfast - magnesium oxide (MAG-OX) 400 mg (241.3 mg magnesium) tablet Take 1 tablet by mouth once daily. - atorvastatin (LIPITOR) 20 mg tablet Take 1 tablet by mouth once daily. - amLODIPine (NORVASC) 10 mg tablet Take 1 tablet by mouth once daily. - warfarin (COUMADIN) 5 mg tablet Take by mouth 10 mg daily, 15 mg on Sunday per Pt ( [facility] Heart group Dr. Kebede's monitors INR) - tamsulosin (FLOMAX) 0.4 mg Take 1 capsule daily until the Rx is finished, then stop - bumetanide (BUMEX) 1 mg tablet Take 1 tablet by mouth once daily. - Psyllium Husk-Sucrose 3.4 gram/7 gram powd 1.7 g. - aspirin 81 mg chewable tablet 81 mg. - polyethylene glycol 3350 (MIRALAX, GLYCOLAX) 17 gram/dose powder Take by mouth. - senna (SENNA) 8.6 mg tab Take 2 tablets by mouth twice daily. - blood sugar diagnostic (BLOOD GLUCOSE TEST) test strip Test blood sugar(s) 1 times daily. Dx: Type 2 DM - Controlled E11.9 Insulin: No - Lancets lancets Test blood sugar(s) 1 times daily. Dx: Type 2 DM - Controlled E11.9 Insulin: No - silver sulfADIAZINE (SILVADENE,THERMAZENE) 1 % cream Apply 1 application to affected area once daily. - MULTIVITAMIN ORAL Take by mouth. Problem List As Of Date 07/22/2024 Noted Resolved Ataxia S/P CVA [I69.993] 03/16/2011 Essential hypertension [I10] 03/28/2011 Mixed hyperlipidemia [E78.2] 03/28/2011 History of stroke [Z86.73] 02/28/2014 BMI 40.0-44.9, adult (HCC) [Z68.41] 02/23/2015 CAD (coronary artery disease) [I25.10] 10/22/2018 NSTEMI (non-ST elevated myocardial infarction) *10/22/2018 Cerebrovascular disease [I67.9] 10/22/2018 Aortic stenosis [I35.0] 10/22/2018 S/P CABG (coronary artery bypass graft) [Z95.1] 11/02/2018 S/P AVR [Z95.2] 11/02/2018 Acute urinary retention [R33.8] 11/04/2018 Paroxysmal atrial fibrillation (HCC) [I48.0] 11/24/2018 Venous ulcer, limited to breakdown of skin (HCC*04/29/2019 Pre-diabetes [R73.03] 05/27/2019 PATRICIA (obstructive sleep apnea) [G47.33] 11/01/2020 Chronic diastolic CHF (congestive heart failure*11/01/2020 Encounter Status:Closed by REBECA DALLAS on 07/22/24 [facility] -------- HARRISON MILLIGAN ([id number]) 1940 M Date Time Provider Department 07/22/24 LATONIA YARBROUGH During your visit today, we recorded the following information about you: Elke Le LPN 07/22/2024 2:03 PM Signed Received 07/21/2024 from [facility]. Placed in provider's inbox for review. Route to [place] for scanning. Allergies As of Date: 07/22/2024 (No Known Allergies) Date Reviewed: 06/13/2024 Reviewed by: Elke Le LPN - Fully Assessed Reason for Visit: Received Outside Medical Records [[id number]] Cmt: [facility] INR 2.9 07/21/2024 Order(s):INR [[id number]] Order #: [id number] Prescriptions as of 07/22/2024 - metFORMIN ER (GLUCOPHAGE XR) 500 mg 24 hr tablet Take 1 tablet by mouth once daily with breakfast - magnesium oxide (MAG-OX) 400 mg (241.3 mg magnesium) tablet Take 1 tablet by mouth once daily. - atorvastatin (LIPITOR) 20 mg tablet Take 1 tablet by mouth once daily. - amLODIPine (NORVASC) 10 mg tablet Take 1 tablet by mouth once daily. - warfarin (COUMADIN) 5 mg tablet Take by mouth 10 mg daily, 15 mg on Sunday per Pt ( [facility] Heart group Dr. Kebede's monitors INR) - tamsulosin (FLOMAX) 0.4 mg Take 1 capsule daily until the Rx is finished, then stop - bumetanide (BUMEX) 1 mg tablet Take 1 tablet by mouth once daily. - Psyllium Husk-Sucrose 3.4 gram/7 gram powd 1.7 g. - aspirin 81 mg chewable tablet 81 mg. - polyethylene glycol 3350 (MIRALAX, GLYCOLAX) 17 gram/dose powder Take by mouth. - senna (SENNA) 8.6 mg tab Take 2 tablets by mouth twice daily. - blood sugar diagnostic (BLOOD GLUCOSE TEST) test strip Test blood sugar(s) 1 times daily. Dx: Type 2 DM - Controlled E11.9 Insulin: No - Lancets lancets Test blood sugar(s) 1 times daily. Dx: Type 2 DM - Controlled E11.9 Insulin: No - silver sulfADIAZINE (SILVADENE,THERMAZENE) 1 % cream Apply 1 application to affected area once daily. - MULTIVITAMIN ORAL Take by mouth. Problem List As Of Date 07/22/2024 Noted Resolved Ataxia S/P CVA [I69.993] 03/16/2011 Essential hypertension [I10] 03/28/2011 Mixed hyperlipidemia [E78.2] 03/28/2011 History of stroke [Z86.73] 02/28/2014 BMI 40.0-44.9, adult (HCC) [Z68.41] 02/23/2015 CAD (coronary artery disease) [I25.10] 10/22/2018 NSTEMI (non-ST elevated myocardial infarction) *10/22/2018 Cerebrovascular disease [I67.9] 10/22/2018 Aortic stenosis [I35.0] 10/22/2018 S/P CABG (coronary artery bypass graft) [Z95.1] 11/02/2018 S/P AVR [Z95.2] 11/02/2018 Acute urinary retention [R33.8] 11/04/2018 Paroxysmal atrial fibrillation (HCC) [I48.0] 11/24/2018 Venous ulcer, limited to breakdown of skin (HCC*04/29/2019 Pre-diabetes [R73.03] 05/27/2019 PATRICIA (obstructive sleep apnea) [G47.33] 11/01/2020 Chronic diastolic CHF (congestive heart failure*11/01/2020 Encounter Status:Closed by ELKE LE on 07/22/24 Normal [facility] INRon 07-21-2024 Interpretation and review of laboratory results Abnormal [facility] International normalized rat io (INR) calculationOrdered By: Rustam Kebede on 07-21-2024 INR Coag (Bld) [Relative time] 2.9 {INR} [facility] Prothrombin Time w/INRon INR Coag (PPP) [Relative time] 2.9 {INR} Normal [facility] Comment on above: Performed By: #### L 300.3900 #### [facility] Laboratory [address] [place], [address] PT Coag (PPP) [Time] 30.2 s High 11.7-14.9 [facility] Comment on above: Performed By: #### L 300.3900 #### [facility] [address], [place], [id number] Prothrombin timeOrdered By: Rustam Kebede on 07-21-2024 PT Coag (PPP) [Time] 30.2 s High 11.7-14.9 [facility] HEMOGLOBIN A1C (POC)on 06-13 HbA1c (Bld) [Mass fraction] 5.9 % Abnormal 4.3 - 5.6 % [facility] Comment on above: Location[facility], [address] [place] [address], [id number] Point of care (POC) Hemoglobin A1c (HGBA1C) testing is intended to assess glucose control and provide a management tool for patients known to have diabetes and their healthcare providers. Target HGBA1C levels may depend on specific clinical circumstances. POC HGBA1C is not intended for use as a diagnostic or screening test; laboratory-based testing should be used for diagnostic purposes. The following information is supplemental and may not be applicable to specific diabetes management situations: The POC device php software engineer provides a normal range of 4.2% to 6.5% for the HGBA1C POC test. However, the [place] [employer] guidelines indicate that patients with HGBA1C in the range of 5.7% to 6.4% are at increased risk for development of diabetes and that intervention by lifestyle modification may be beneficial. A HGBA1C level greater than or equal to 6.5% is considered diagnostic of diabetes, pending confirmatory testing. Use of HGBA1C testing to evaluate glucose control may not be appropriate for patients with hemoglobin variants or other conditions (e.g. anemia) that alter red blood cell lifespan. Interpretation and review of laboratory results Abnormal [facility] INRon 04-23-2024 INR Coag (PPP) [Relative time] 2.4 {INR} Abnormal 0.81 - 1.21 [facility] Interpretation and review of laboratory results Abnormal [facility] INRon 02-25-2024 INR Coag (PPP) [Relative time] 2.3 {INR} Abnormal 0.81 - 1.21 [facility] Interpretation and review of laboratory results Abnormal [facility] PT panel Coag (PPP)on 2023 INR Coag (Bld) [Relative time] 1.8 {INR} [facility] INRon 01-15-2024 INR Coag (PPP) [Relative time] 2.2 {INR} Abnormal 0.81 - 1.21 [facility] Interpretation and review of laboratory results Abnormal [facility] INRon 12-10-2023 INR Coag (PPP) [Relative time] 2.4 {INR} Abnormal 0.81 - 1.21 [facility] Interpretation and review of laboratory results Abnormal [facility] Laboratory - CoagulationOrde red By: Rustam Kebede on 12-10-2023 INR Coag (Bld) [Relative time] 2.4 {INR} [facility] PT Coag (PPP) [Time] 26.2 s 11.7-14.9 [facility] INRon 11-08-2023 INR Coag (PPP) [Relative time] 2.3 {INR} Abnormal 0.81 - 1.21 [facility] Laboratory - CoagulationOrde red By: Rustam Yandy on 11-08-2023 INR Coag (Bld) [Relative time] 2.3 {INR} [facility] PT Coag (PPP) [Time] 24.8 s 11.7-14.9 [facility] INRon 10-08-2023 INR Coag (PPP) [Relative time] 2.7 {INR} Abnormal 0.81 - 1.21 [facility] Laboratory - CoagulationOrde red By: Rustam Yandy on 10-08-2023 INR Coag (Bld) [Relative time] 2.7 {INR} [facility] PT Coag (PPP) [Time] 28.9 s 11.7-14.9 [facility] International normalized rat io (INR) calculationOrdered By: [place] Yandy on 09-10-2023 INR Coag (PPP) [Relative time] 2.4 {INR} [facility] Laboratory - CoagulationOrde red By: Rustam Yandy on 09-10-2023 PT Coag (PPP) [Time] 26.3 s 11.7-14.9 [facility] INR in Blood by Coagulation assayOrdered By: [place] Yandy on 08-17-2023 INR Coag (Bld) [Relative time] 1.7 {INR} [facility] Laboratory - CoagulationOrde red By: Rustam Yandy on 08-17-2023 PT Coag (PPP) [Time] 20.5 s 11.7-14.9 [facility] INRon 07-16-2023 INR Coag (PPP) [Relative time] 3.6 {INR} Abnormal 0.81 - 1.21 [facility] INR in Blood by Coagulation assayOrdered By: [place] Yandy on 07-16-2023 INR Coag (Bld) [Relative time] 3.6 {INR} [facility] Laboratory - CoagulationOrde red By: Rustam Yandy on 07-16-2023 PT Coag (PPP) [Time] 36.6 s 11.7-14.9 [facility] INRon 07-02-2023 INR Coag (PPP) [Relative time] 3.5 {INR} Abnormal 0.81 - 1.21 [facility] INR in Blood by Coagulation assayOrdered By: Rustam Kebede on 05-21-2023 INR Coag (Bld) [Relative time] 2.7 {INR} [facility] Laboratory - CoagulationOrde red By: Rustam Kebede on 05-21-2023 PT Coag (PPP) [Time] 28.7 s 11.7-14.9 [facility] Basophil percentageOrdered B y: Reanna Jasso on 04-18-2023 Bilirubin [Mass/Vol] 0.70 mg/dL 0.20-1.00 [facility] Comment on above: For patients on eltr ombopag therapy, use of Dimension [place] TBIL is not recommended. Cholesterol [Mass/Vol] 155 mg/dL <200 [facility] Comment on above: <200 mg/dL Desirable 200-240 mg/dL Borderline >240 mg/dL High Risk Protein [Mass/Vol] 6.8 g/dL 6.4-8.2 [facility] Triglyceride [Mass/Vol] 114 mg/dL <199 [facility] Comment on above: The drugs N-Acetylcy steine and Metamizole may falsely depress this assay.Serum Triglycerides Reference Interval Normal <150 mg/dL Borderline high 150 - 199 mg/dL High 200 - 499 mg/dL Very High > or = 500 mg/dL Direct bilirubinOrdered By: Reanna Jasso on 04-18-2023 Bilirubin.direct [Mass/Vol] 0.20 mg/dL 0.00-0.30 [facility] INR in Blood by Coagulation assayOrdered By: Reanna Jasso on 04-18-2023 INR Coag (Bld) [Relative time] 2.7 {INR} [facility] Laboratory - Chemistry and C hemistry - challengeOrdered By: Reanna Jasso on 04-18-2023 ALP [Catalytic activity/Vol] 94 U/L 45-117 [facility] ALT [Catalytic activity/Vol] 36 U/L 16-61 [facility] Globulin (S) [Mass/Vol] 3.3 g/dL 2.2-4.2 [facility] Laboratory - CoagulationOrde red By: Reanna Jasso on 04-18-2023 PT Coag (PPP) [Time] 28.8 s 11.7-14.9 [facility] Serum or plasma albumin shira urement (mass/volume)Ordered By: Reanna Jasso on 04-18-2023 Albumin [Mass/Vol] 3.5 g/dL 3.2-5.0 [facility] Serum or plasma cholesterol in HDL measurement (mass/volume)Ordered By: Reanna Jasso on 04-18-2023 Cholesterol in HDL [Mass/Vol] 51 mg/dL >40 [facility] Comment on above: The drugs N-Acetylcy steine and Metamizole may falsely depress this assay. Reference Range HDL <40 mg/dL Low HDL Cholesterol HDL >or= 60 mg/dL High HDL Cholesterol Serum or plasma cholesterol in VLDL measurement (mass/volume)Ordered By: Reanna Jasso on 04-18-2023 Cholesterol in VLDL [Mass/Vol] 23 mg/dL 5-40 [facility] Serum or plasma low density lipoprotein (LDL) cholesterol measurement (mass/volume)Ordered By: Reanna Jasso on 04-18-2023 Cholesterol in LDL [Mass/Vol] 81 mg/dL 0-130 [facility] Thin prep Papanicolaou smear with manual screeningOrdered By: Reanna Jasso on 04-18-2023 Thin prep Papanicolaou smear with manual screening 23 U/L 15-37 [facility] INR in Blood by Coagulation assayOrdered By: Reanna Jasso on 03-15-2023 INR Coag (Bld) [Relative time] 2.7 {INR} [facility] Laboratory - CoagulationOrde red By: Reanna Jasso on 03-15-2023 PT Coag (PPP) [Time] 28.9 s 11.7-14.9 [facility] INRon 02-01-2023 INR Coag (PPP) [Relative time] 2.5 {INR} Abnormal 0.81 - 1.21 [facility] INR in Blood by Coagulation assayOrdered By: Rustam Kebede on 02-01-2023 INR Coag (Bld) [Relative time] 2.5 {INR} [facility] Laboratory - CoagulationOrde red By: Rustam Kebede on 02-01-2023 PT Coag (PPP) [Time] 27.1 s 11.7-14.9 [facility] INRon 01-16-2023 INR Coag (PPP) [Relative time] 3.2 {INR} Abnormal 0.81 - 1.21 [facility] INR in Blood by Coagulation assayOrdered By: Dr. Kebede on 01-16-2023 INR Coag (Bld) [Relative time] 3.2 {INR} [facility] Laboratory - CoagulationOrde red By: Dr. Kebede on 01-16-2023 PT Coag (PPP) [Time] 33.1 s 11.7-14.9 [facility] INR in Blood by Coagulation assayOrdered By: Dr. Kebede on 12-04-2022 INR Coag (Bld) [Relative time] 3.1 {INR} [facility] Laboratory - CoagulationOrde red By: Dr. Kebede on 12-04-2022 PT Coag (PPP) [Time] 31.3 s 11.7-14.9 [facility] INR in Blood by Coagulation assayOrdered By: Dr. Kebede on 11-02-2022 INR Coag (Bld) [Relative time] 3.0 {INR} [facility] Laboratory - CoagulationOrde red By: Dr. Kebede on 11-02-2022 PT Coag (PPP) [Time] 30.6 s 11.7-14.9 [facility] Basophil percentageOrdered B y: Reanna Jasso on 09-26-2022 Bilirubin [Mass/Vol] 0.70 mg/dL 0.20-1.00 [facility] Comment on above: For patients on eltr ombopag therapy, use of Dimension [place] TBIL is not recommended. Cholesterol [Mass/Vol] 166 mg/dL <200 [facility] Comment on above: <200 mg/dL Desirable 200-240 mg/dL Borderline >240 mg/dL High Risk Protein [Mass/Vol] 6.8 g/dL 6.4-8.2 [facility] Triglyceride [Mass/Vol] 127 mg/dL <199 [facility] Comment on above: The drugs N-Acetylcy steine and Metamizole may falsely depress this assay.Serum Triglycerides Reference Interval Normal <150 mg/dL Borderline high 150 - 199 mg/dL High 200 - 499 mg/dL Very High > or = 500 mg/dL Direct bilirubinOrdered By: Reanna Jasso on 09-26-2022 Bilirubin.direct [Mass/Vol] 0.15 mg/dL 0.00-0.30 [facility] INRon 09-26-2022 INR Coag (PPP) [Relative time] 3.0 {INR} Abnormal 0.81 - 1.21 [facility] INR in Blood by Coagulation assayOrdered By: Dr. Kebede on 09-26-2022 INR Coag (Bld) [Relative time] 3.0 {INR} [facility] Laboratory - Chemistry and C hemistry - challengeOrdered By: Reanna Jasso on 09-26-2022 ALP [Catalytic activity/Vol] 85 U/L 45-117 [facility] ALT [Catalytic activity/Vol] 35 U/L 16-61 [facility] Globulin (S) [Mass/Vol] 3.3 g/dL 2.2-4.2 [facility] Laboratory - CoagulationOrde red By: Dr. Kebede on 09-26-2022 PT Coag (PPP) [Time] 30.7 s 11.7-14.9 [facility] Serum or plasma albumin shira urement (mass/volume)Ordered By: Reanna Jasso on 09-26-2022 Albumin [Mass/Vol] 3.5 g/dL 3.2-5.0 [facility] Serum or plasma cholesterol in HDL measurement (mass/volume)Ordered By: Reanna Jasso on 09-26-2022 Cholesterol in HDL [Mass/Vol] 53 mg/dL >40 [facility] Comment on above: The drugs N-Acetylcy steine and Metamizole may falsely depress this assay. Reference Range HDL <40 mg/dL Low HDL Cholesterol HDL >or= 60 mg/dL High HDL Cholesterol Serum or plasma cholesterol in VLDL measurement (mass/volume)Ordered By: Reanna Jasso on 09-26-2022 Cholesterol in VLDL [Mass/Vol] 25 mg/dL 5-40 [facility] Serum or plasma low density lipoprotein (LDL) cholesterol measurement (mass/volume)Ordered By: Reanna Jasso on 09-26-2022 Cholesterol in LDL [Mass/Vol] 88 mg/dL 0-130 [facility] Thin prep Papanicolaou smear with manual screeningOrdered By: Reanna Jasso on 09-26-2022 Thin prep Papanicolaou smear with manual screening 23 U/L 15-37 [facility] INRon 08-31-2022 INR Coag (PPP) [Relative time] 3.0 {INR} Abnormal 0.81 - 1.21 [facility] INR in Blood by Coagulation assayOrdered By: Dr. Kebede on 08-31-2022 INR Coag (Bld) [Relative time] 3.0 {INR} [facility] Laboratory - CoagulationOrde red By: Dr. Kebede on 08-31-2022 PT Coag (PPP) [Time] 31.1 s 11.7-14.9 [facility] INR in Blood by Coagulation assayOrdered By: Dr. Kebede on 07-27-2022 INR Coag (Bld) [Relative time] 2.5 {INR} [facility] Laboratory - CoagulationOrde red By: Dr. Kebede on 07-27-2022 PT Coag (PPP) [Time] 26.6 s 11.7-14.9 [facility] INRon 06-21-2022 INR Coag (PPP) [Relative time] 2.5 {INR} Abnormal 0.81 - 1.21 [facility] INR in Blood by Coagulation assayOrdered By: Dr. Kebede on 06-21-2022 INR Coag (Bld) [Relative time] 2.5 {INR} [facility] Laboratory - CoagulationOrde red By: Dr. Kebede on 06-21-2022 PT Coag (PPP) [Time] 26.4 s 11.7-14.9 [facility] INRon 05-24-2022 INR Coag (PPP) [Relative time] 2.5 {INR} Abnormal 0.81 - 1.21 [facility] INR in Blood by Coagulation assayOrdered By: Dr. Kebede on 05-24-2022 INR Coag (Bld) [Relative time] 2.5 {INR} [facility] Laboratory - CoagulationOrde red By: Dr. Kebede on 05-24-2022 PT Coag (PPP) [Time] 26.5 s 11.7-14.9 [facility] INRon 05-03-2022 INR Coag (PPP) [Relative time] 2.0 {INR} Abnormal 0.81 - 1.21 [facility] INR in Blood by Coagulation assayon 05-03-2022 INR Coag (Bld) [Relative time] 2.0 {INR} [facility] Work Phone: Laboratory - Coagulationon 0 05-03-2022 PT Coag (PPP) [Time] 22.6 s 11.7-14.9 [facility] INR in Blood by Coagulation assayon 04-19-2022 INR Coag (Bld) [Relative time] 1.8 {INR} [facility] Work Phone: Laboratory - Coagulationon 0 04-19-2022 PT Coag (PPP) [Time] 20.9 s 11.7-14.9 [facility] Work Phone: Basophil percentageon 2021 Bilirubin [Mass/Vol] 0.90 mg/dL 0.20-1.00 [facility] Work Phone: Comment on above: For patients on eltr ombopag therapy, use of Dimension [place] TBIL is not recommended. Cholesterol [Mass/Vol] 145 mg/dL <200 [facility] Comment on above: <200 mg/dL Desirable 200-240 mg/dL Borderline >240 mg/dL High Risk Protein [Mass/Vol] 6.7 g/dL 6.4-8.2 [facility] Work Phone: Triglyceride [Mass/Vol] 115 mg/dL <199 [facility] Work Phone: Comment on above: The drugs N-Acetylcy steine and Metamizole may falsely depress this assay.Serum Triglycerides Reference Interval Normal <150 mg/dL Borderline high 150 - 199 mg/dL High 200 - 499 mg/dL Very High > or = 500 mg/dL Direct bilirubinon Bilirubin.direct [Mass/Vol] 0.23 mg/dL 0.00-0.30 [facility] Work Phone: HEPATIC FUNCTION PANEL (6)on 04-12-2022 ALT. 59 [facility] AST [Catalytic activity/Vol] 47 U/L Abnormal 39 U/L [facility] Bilirubin.direct [Mass/Vol] 0.90 mg/dL 0.2 - 1 MG/DL [facility] Direct Bilirubin 0.23 [facility] GLOBULIN 3.5 2.2 - 4.2 [facility] T PROT 6.7 g/dL 6 - 8.5 g/dL [facility] INRon 04-12-2022 INR Coag (PPP) [Relative time] 1.8 {INR} Abnormal 0.81 - 1.21 [facility] PT Coag (PPP) [Time] 20.8 s Abnormal 11.7 - 14.9 [facility] LIPID PANEL B/Oon 04-12-2022 CHOL/HDL [facility] Tgl 115 mg/dL 50 - 190 mg/dL [facility] VLDL 23 Ratio 10 - 38 Ratio [facility] Laboratory - Chemistry and C hemistry - challengeon 04-12-2022 ALP [Catalytic activity/Vol] 107 U/L 45-117 [facility] ALT [Catalytic activity/Vol] 59 U/L 16-61 [facility] Work Phone: Globulin (S) [Mass/Vol] 3.5 g/dL 2.2-4.2 [facility] Work Phone: Serum or plasma albumin shira urement (mass/volume)on 04-12-2022 Albumin [Mass/Vol] 3.2 g/dL 3.2-5.0 [facility] Serum or plasma cholesterol in HDL measurement (mass/volume)on 04-12-2022 Cholesterol in HDL [Mass/Vol] 46 mg/dL >40 [facility] Comment on above: The drugs N-Acetylcy steine and Metamizole may falsely depress this assay. Reference Range HDL <40 mg/dL Low HDL Cholesterol HDL >or= 60 mg/dL High HDL Cholesterol Serum or plasma cholesterol in VLDL measurement (mass/volume)on 04-12-2022 Cholesterol in VLDL [Mass/Vol] 23 mg/dL 5-40 [facility] Work Phone: Serum or plasma low density lipoprotein (LDL) cholesterol measurement (mass/volume)on 04-12-2022 Cholesterol in LDL [Mass/Vol] 76 mg/dL 0-130 [facility] Thin prep Papanicolaou smear with manual screeningon 04-12-2022 Thin prep Papanicolaou smear with manual screening 47 U/L 15-37 [facility] Work Phone: INR in Blood by Coagulation assayon 03-08-2022 INR Coag (Bld) [Relative time] 1.7 {INR} [facility] Work Phone: Laboratory - Coagulationon 0 03-08-2022 PT Coag (PPP) [Time] 19.9 s 11.7-14.9 [facility] Work Phone: INRon 02-15-2022 INR Coag (PPP) [Relative time] 1.6 {INR} Abnormal 0.81 - 1.21 [facility] INR in Blood by Coagulation assayon 02-15-2022 INR Coag (Bld) [Relative time] 1.6 {INR} [facility] Work Phone: Laboratory - Coagulationon 0 02-15-2022 PT Coag (PPP) [Time] 18.3 s 11.7-14.9 [facility] PT/INR - ED (POC)on 02-16-20 INR Coag (Bld) [Relative time] [facility] Normal INR Range (> 3 months) 1.6 Abnormal 0.8 - 1.2 [facility] Normal PT Range for ED 18.3 SEC Abnormal 10.6 - 13.4 SEC [facility] PT - ED (POC) [facility] Quality Check Yes [facility] INRon 02-08-2022 INR Coag (PPP) [Relative time] 1.5 {INR} Abnormal 0.81 - 1.21 [facility] INR in Blood by Coagulation assayon 02-08-2022 INR Coag (Bld) [Relative time] 1.5 {INR} [facility] Work Phone: Laboratory - Coagulationon 0 02-08-2022 PT Coag (PPP) [Time] 17.7 s Abnormal 11.7 - 14.9 [facility] Work Phone: HEMOGLOBIN A1C (POC)on 01-03 HbA1c (Bld) [Mass fraction] 5.2 % 4.2 - 5.6 % [facility] INR (POC)on 01-03-2022 INR Coag (PPP) [Relative time] 2.4 {INR} High 0.8 - 1.2 [facility] Internal Quality Check Acceptable [facility] IR CHOLECYSTOTOMY TUBE REMOV AL W/GUIDEon 12-29-2021 IR CHOLECYSTOTOMY TUBE REMOVAL W/GUIDE Normal [facility] ([place]) INRon 12-23-2021 Albumin [Mass/Vol] 2.3 g/dL Abnormal 3.2 - 5.2 g/dL [facility] Alk Phos 94 U/L 50 - 136 U/L [facility] ALT [Catalytic activity/Vol] 17 U/L [facility] Anion gap [Moles/Vol] 6 mmol/L [facility] AST [Catalytic activity/Vol] 24 U/L [facility] Bilirubin [Mass/Vol] 0.30 mg/dL [facility] Calcium [Mass/Vol] 8.6 mg/dL [facility] Chloride [Moles/Vol] 103 mmol/L [facility] CO2 [Moles/Vol] 27 mmol/L [facility] Creatine mg/dL 0.80 [facility] GFR AFR AMER 120 mL/MIN [facility] GFR/1.73 sq M.predicted among non-blacks MDRD (S/P/Bld) [Vol rate/Area] 99 mL/min/{1.73_m2} [facility] GLOBULIN 3.9 [facility] Glucose [Mass/Vol] 90 mg/dL [facility] Hematocrit (Bld) [Volume fraction] 35.9 % 33 - 42 % [facility] Hemoglobin (Bld) [Mass/Vol] 11.7 g/dL Abnormal 12 - 16 g/dL [facility] INR Coag (PPP) [Relative time] 2.1 {INR} Abnormal 0.81 - 1.21 [facility] Platelets (Bld) [#/Vol] 260 10*3/uL 150 - 379 k/uL [facility] Potassium [Moles/Vol] 4.0 mmol/L [facility] PT Coag (PPP) [Time] 23 s [facility] RBC (Bld) [#/Vol] 3.95 10*6/uL Abnormal 4.5 - 6.0 M/uL [facility] Sodium [Moles/Vol] 136 mmol/L 136 - 145 mmol/L [facility] T PROT 6.2 g/dL 6 - 8.5 g/dL [facility] Urea nitrogen [Mass/Vol] 13 mg/dL [facility] WBC (Bld) [#/Vol] 8.3 10*3/uL 4.0 - 11.0 K/uL [facility] Bilirubin Test strip Ql (U)o n 12-16-2021 Bilirubin Ql (U) Negative Negative [facility] Work Phone: Culture, urineon 12-16-2021 Bacteria identified Cx Nom (U) Escherichia coli [facility] Work Phone: Ketones Test strip Ql (U)on 12-16-2021 Ketones Ql (U) Negative Negative [facility] Work Phone: Nitrite Test strip Ql (U)on 12-16-2021 Nitrite Ql (U) Positive Negative [facility] Work Phone: Protein Test strip Ql (U)on 12-16-2021 Protein Ql (U) 30 mg/dl Negative [facility] Work Phone: Urine blood detectionon 11-19 RBC Ql (U) 25 /ul Negative [facility] Work Phone: Urine clarityon 12-16-2021 Clarity (U) Sl. Cloudy Clear [facility] Work Phone: Urine color determinationon 12-16-2021 Color (U) Yellow Yellow [facility] Work Phone: Urine glucose detectionon Glucose Ql (U) Normal mg/dl Normal [facility] Work Phone: Urine leukocyte esterase det ection by dipstickon 12-16-2021 Leukocyte esterase Test strip Ql (U) 500 /ul Negative [facility] Work Phone: Urine pHon 12-16-2021 pH (U) 6.0 [pH] 5.0 - 8.0 [facility] Work Phone: Urine specific gravity measu rementon 12-16-2021 Specific gravity (U) [Rel density] 1.015 1.002-1.030 [facility] Work Phone: Urobilinogen Auto test strip Ql (U)on 12-16-2021 Urobilinogen Ql (U) Normal mg/dl Normal [facility] Work Phone: Absolute lymphocyte counton 12-12-2021 Lymphocytes Auto (Unsp spec) [#/Vol] 1.23 10*3/uL 0.83-4.51 [facility] Work Phone: Basophil percentageon 2021 Basophils/100 WBC (Bld) 0.6 % 0-1 [facility] Work Phone: Bilirubin [Mass/Vol] 0.30 mg/dL 0.20-1.00 [facility] Work Phone: Comment on above: For patients on eltr ombopag therapy, use of Dimension [place] TBIL is not recommended. Chloride [Moles/Vol] 103 mmol/L 98-107 [facility] Work Phone: Eosinophils/100 WBC (Bld) 4.6 % 0-5 [facility] Work Phone: Glucose [Mass/Vol] 90 mg/dL 74-106 [facility] Work Phone: Neutrophils (Bld) [#/Vol] 5.6 10*3/uL 2.0-7.7 [facility] Work Phone: Neutrophils/100 WBC (Bld) 67.8 % 47-70 [facility] Work Phone: Potassium [Moles/Vol] 4.0 mmol/L 3.5-5.1 [facility] Work Phone: Protein [Mass/Vol] 6.2 g/dL 6.4-8.2 [facility] Work Phone: Sodium [Moles/Vol] 136 mmol/L 136-145 [facility] Work Phone: WBC (Bld) [#/Vol] 8.3 10*3/uL 4.4-11.0 [facility] Work Phone: Blood erythrocytes count (nu mber/volume)on 12-12-2021 RBC (Bld) [#/Vol] 3.95 10*6/uL 4.6-6.2 [facility] Work Phone: Blood hemoglobin measurement (mass/volume)on 12-12-2021 Hemoglobin (Bld) [Mass/Vol] 11.7 g/dL 13.0-16.5 [facility] Work Phone: Blood lymphocytes/100 leukoc yteson 12-12-2021 Lymphocytes/100 WBC (Bld) 14.8 % 19-41 [facility] Work Phone: Blood monocytes/100 leukocyt eson 12-12-2021 Monocytes/100 WBC (Bld) 11.7 % 0-10 [facility] Work Phone: Blood platelet mean volumeon 12-12-2021 Platelet mean volume (Bld) [Entitic vol] 9.8 fL 6.2-12.0 [facility] Work Phone: Determination of erythrocyte mean corpuscular volume (MCV)on 12-12-2021 MCV (RBC) [Entitic vol] 90.9 fL 80-94 [facility] Work Phone: Hematocrit Auto (Bld) [Volum e fraction]on 12-12-2021 Hematocrit (Bld) [Volume fraction] 35.9 % 40-54 [facility] Work Phone: INR in Blood by Coagulation assayon 12-12-2021 INR Coag (Bld) [Relative time] 2.1 {INR} [facility] Work Phone: Laboratory - Chemistry and C hemistry - challengeon 12-12-2021 ALP [Catalytic activity/Vol] 94 U/L 45-117 [facility] Work Phone: ALT [Catalytic activity/Vol] 17 U/L 16-61 [facility] Work Phone: CO2 [Moles/Vol] 27.0 mmol/L 21.0-32.0 [facility] Work Phone: Globulin (S) [Mass/Vol] 3.9 g/dL 2.2-4.2 [facility] Work Phone: Urea nitrogen/Creatinine [Mass ratio] 16.3 mg/mg 10-20 [facility] Work Phone: Laboratory - Coagulationon 0 12-12-2021 PT Coag (PPP) [Time] 23.0 s 11.7-14.9 [facility] Work Phone: Laboratory - Hematology and Cell countson 12-12-2021 Erythrocyte distribution width (RBC) [Entitic vol] 49.1 fL 35.1-43.9 [facility] Work Phone: Erythrocyte distribution width (RBC) [Ratio] 14.6 % 11.6-14.6 [facility] Work Phone: Immature granulocytes/100 WBC (Bld) 0.500 % 0.0-0.9 [facility] Work Phone: Comment on above: IG% - Immature Granu locytes (promyelocytes, myelocytes and metamyelocytes) > 1% indicates that a LEFT SHIFT is Present. MCH (RBC) [Entitic mass] 29.6 pg 27.0-32.0 [facility] Work Phone: Nucleated RBC/100 WBC (Bld) [Ratio] 0 % 0-5 [facility] Work Phone: MCHC Auto (RBC) [Mass/Vol]on 12-12-2021 MCHC (RBC) [Mass/Vol] 32.6 g/dL 32-36 [facility] Work Phone: No Panel Informationon 12-12 Estimated GFR (MDRD) Amer 120 mL/min >60 [facility] Work Phone: Comment on above: GFR Calc Estimated GFR (MDRD) Non-Af Amer 99 mL/min >60 [facility] Work Phone: Comment on above: Non- GFR Calc Platelets bldon 12-12-2021 Platelets (Bld) [#/Vol] 260 10*3/uL 150-450 [facility] Work Phone: Serum or plasma albumin shira urement (mass/volume)on 12-12-2021 Albumin [Mass/Vol] 2.3 g/dL 3.2-5.0 [facility] Work Phone: Serum or plasma albumin/glob ulin mass ratioon 12-12-2021 Albumin/Globulin [Mass ratio] 0.6 {ratio} 0.9-2.4 [facility] Work Phone: Serum or plasma calcium shira urement (mass/volume)on 12-12-2021 Calcium [Mass/Vol] 8.6 mg/dL 8.5-10.1 [facility] Work Phone: Serum or plasma creatinine m easurement (mass/volume)on 12-12-2021 Creatinine [Mass/Vol] 0.80 mg/dL 0.70-1.30 [facility] Work Phone: Comment on above: The validity of the calculated GFR & GFRAA in patients over 70 years has not been determined. Clinical correlation is essential. Serum or plasma urea nitroge n measurement (mass/volume)on 12-12-2021 Urea nitrogen [Mass/Vol] 13 mg/dL 7-18 [facility] Work Phone: Thin prep Papanicolaou smear with manual screeningon 12-12-2021 Thin prep Papanicolaou smear with manual screening 24 U/L 15-37 [facility] Work Phone: Thin prep Papanicolaou smear with manual screening 6 5-15 [facility] Work Phone: Absolute lymphocyte counton 12-05-2021 Lymphocytes Auto (Unsp spec) [#/Vol] 1.10 10*3/uL 0.83-4.51 [facility] Work Phone: Basophil percentageon 2021 Basophils/100 WBC (Bld) 0.9 % 0-1 [facility] Work Phone: Bilirubin [Mass/Vol] 0.30 mg/dL 0.20-1.00 [facility] Work Phone: Comment on above: For patients on eltr ombopag therapy, use of Dimension [place] TBIL is not recommended. Chloride [Moles/Vol] 106 mmol/L 98-107 [facility] Work Phone: Eosinophils/100 WBC (Bld) 6.5 % 0-5 [facility] Work Phone: Glucose [Mass/Vol] 99 mg/dL 74-106 [facility] Work Phone: Neutrophils (Bld) [#/Vol] 4.2 10*3/uL 2.0-7.7 [facility] Work Phone: Neutrophils/100 WBC (Bld) 63.6 % 47-70 [facility] Work Phone: Potassium [Moles/Vol] 4.1 mmol/L 3.5-5.1 [facility] Work Phone: Protein [Mass/Vol] 6.2 g/dL 6.4-8.2 [facility] Work Phone: Sodium [Moles/Vol] 139 mmol/L 136-145 [facility] Work Phone: WBC (Bld) [#/Vol] 6.7 10*3/uL 4.4-11.0 [facility] Work Phone: Blood erythrocytes count (nu mber/volume)on 12-05-2021 RBC (Bld) [#/Vol] 4.01 10*6/uL 4.6-6.2 [facility] Work Phone: Blood hemoglobin measurement (mass/volume)on 12-05-2021 Hemoglobin (Bld) [Mass/Vol] 12.0 g/dL 13.0-16.5 [facility] Work Phone: Blood lymphocytes/100 leukoc yteson 12-05-2021 Lymphocytes/100 WBC (Bld) 16.5 % 19-41 [facility] Work Phone: Blood monocytes/100 leukocyt eson 12-05-2021 Monocytes/100 WBC (Bld) 12.0 % 0-10 [facility] Work Phone: Blood platelet mean volumeon 12-05-2021 Platelet mean volume (Bld) [Entitic vol] 9.5 fL 6.2-12.0 [facility] Work Phone: Determination of erythrocyte mean corpuscular volume (MCV)on 12-05-2021 MCV (RBC) [Entitic vol] 92.0 fL 80-94 [facility] Work Phone: Hematocrit Auto (Bld) [Volum e fraction]on 12-05-2021 Hematocrit (Bld) [Volume fraction] 36.9 % 40-54 [facility] Work Phone: INR in Blood by Coagulation assayon 12-05-2021 INR Coag (Bld) [Relative time] 1.6 {INR} [facility] Work Phone: Laboratory - Chemistry and C hemistry - challengeon 12-05-2021 ALP [Catalytic activity/Vol] 123 U/L 45-117 [facility] Work Phone: ALT [Catalytic activity/Vol] 16 U/L 16-61 [facility] Work Phone: CO2 [Moles/Vol] 27.0 mmol/L 21.0-32.0 [facility] Work Phone: Globulin (S) [Mass/Vol] 4.2 g/dL 2.2-4.2 [facility] Work Phone: Urea nitrogen/Creatinine [Mass ratio] 13.7 mg/mg 10-20 [facility] Work Phone: Laboratory - Coagulationon 0 12-05-2021 PT Coag (PPP) [Time] 18.4 s 11.7-14.9 [facility] Work Phone: Laboratory - Hematology and Cell countson 12-05-2021 Erythrocyte distribution width (RBC) [Entitic vol] 49.7 fL 35.1-43.9 [facility] Work Phone: Erythrocyte distribution width (RBC) [Ratio] 14.7 % 11.6-14.6 [facility] Work Phone: Immature granulocytes/100 WBC (Bld) 0.500 % 0.0-0.9 [facility] Work Phone: Comment on above: IG% - Immature Granu locytes (promyelocytes, myelocytes and metamyelocytes) > 1% indicates that a LEFT SHIFT is Present. MCH (RBC) [Entitic mass] 29.9 pg 27.0-32.0 [facility] Work Phone: Nucleated RBC/100 WBC (Bld) [Ratio] 0 % 0-5 [facility] Work Phone: MCHC Auto (RBC) [Mass/Vol]on 12-05-2021 MCHC (RBC) [Mass/Vol] 32.5 g/dL 32-36 [facility] Work Phone: No Panel Informationon 12-05 Estimated GFR (MDRD) Amer 133 mL/min >60 [facility] Work Phone: Comment on above: GFR Calc Estimated GFR (MDRD) Non-Af Amer 110 mL/min >60 [facility] Work Phone: Comment on above: Non- GFR Calc Platelets bldon 12-05-2021 Platelets (Bld) [#/Vol] 221 10*3/uL 150-450 [facility] Work Phone: Serum or plasma albumin shira urement (mass/volume)on 12-05-2021 Albumin [Mass/Vol] 2.0 g/dL 3.2-5.0 [facility] Work Phone: Serum or plasma albumin/glob ulin mass ratioon 12-05-2021 Albumin/Globulin [Mass ratio] 0.5 {ratio} 0.9-2.4 [facility] Work Phone: Serum or plasma calcium shira urement (mass/volume)on 12-05-2021 Calcium [Mass/Vol] 8.6 mg/dL 8.5-10.1 [facility] Work Phone: Serum or plasma creatinine m easurement (mass/volume)on 12-05-2021 Creatinine [Mass/Vol] 0.73 mg/dL 0.70-1.30 [facility] Work Phone: Comment on above: The validity of the calculated GFR & GFRAA in patients over 70 years has not been determined. Clinical correlation is essential. Serum or plasma urea nitroge n measurement (mass/volume)on 12-05-2021 Urea nitrogen [Mass/Vol] 10 mg/dL 7-18 [facility] Work Phone: Thin prep Papanicolaou smear with manual screeningon 12-05-2021 Thin prep Papanicolaou smear with manual screening 23 U/L 15-37 [facility] Work Phone: Thin prep Papanicolaou smear with manual screening 6 5-15 [facility] Work Phone: Laboratory - Coagulationon 0 11-30-2021 INR Coag (Bld) [Relative time] 1.3 {INR} [facility] Work Phone: Comment on above: Critical Value > 4.0 Whole blood prothrombin time on 11-30-2021 PT Coag (Bld) [Time] 16.0 s 11.7-14.9 [facility] Work Phone: INR in Blood by Coagulation assayon 11-29-2021 INR Coag (Bld) [Relative time] 1.2 {INR} [facility] Work Phone: Laboratory - Coagulationon 0 11-29-2021 PT Coag (PPP) [Time] 14.5 s 11.7-14.9 [facility] Work Phone: Whole blood prothrombin time on 11-29-2021 PT Coag (Bld) [Time] 10.3 s 11.7-14.9 [facility] Work Phone: Absolute lymphocyte counton 11-28-2021 Lymphocytes Auto (Unsp spec) [#/Vol] 0.92 10*3/uL 0.83-4.51 [facility] Work Phone: Basophil percentageon 2021 Basophils/100 WBC (Bld) 0.7 % 0-1 [facility] Work Phone: Bilirubin [Mass/Vol] 0.30 mg/dL 0.20-1.00 [facility] Work Phone: Comment on above: For patients on eltr ombopag therapy, use of Dimension [place] TBIL is not recommended. Chloride [Moles/Vol] 104 mmol/L 98-107 [facility] Work Phone: Eosinophils/100 WBC (Bld) 6.6 % 0-5 [facility] Work Phone: Glucose [Mass/Vol] 125 mg/dL 74-106 [facility] Work Phone: Comment on above: Fasting Glucose resu lt from 100 to 125 mg/dL suggests IMPAIRED HOMEOSTASIS per A.D.A. criteria. Neutrophils (Bld) [#/Vol] 4.8 10*3/uL 2.0-7.7 [facility] Work Phone: Neutrophils/100 WBC (Bld) 67.8 % 47-70 [facility] Work Phone: Potassium [Moles/Vol] 4.1 mmol/L 3.5-5.1 [facility] Work Phone: Protein [Mass/Vol] 6.7 g/dL 6.4-8.2 [facility] Work Phone: Sodium [Moles/Vol] 138 mmol/L 136-145 [facility] Work Phone: WBC (Bld) [#/Vol] 7.1 10*3/uL 4.4-11.0 [facility] Work Phone: Blood erythrocytes count (nu mber/volume)on 11-28-2021 RBC (Bld) [#/Vol] 4.17 10*6/uL 4.6-6.2 [facility] Work Phone: Blood hemoglobin measurement (mass/volume)on 11-28-2021 Hemoglobin (Bld) [Mass/Vol] 12.5 g/dL 13.0-16.5 [facility] Work Phone: Blood lymphocytes/100 leukoc yteson 11-28-2021 Lymphocytes/100 WBC (Bld) 13.0 % 19-41 [facility] Work Phone: Blood monocytes/100 leukocyt eson 11-28-2021 Monocytes/100 WBC (Bld) 11.3 % 0-10 [facility] Work Phone: Blood platelet mean volumeon 11-28-2021 Platelet mean volume (Bld) [Entitic vol] 10.0 fL 6.2-12.0 [facility] Work Phone: Determination of erythrocyte mean corpuscular volume (MCV)on 11-28-2021 MCV (RBC) [Entitic vol] 92.6 fL 80-94 [facility] Work Phone: Hematocrit Auto (Bld) [Volum e fraction]on 11-28-2021 Hematocrit (Bld) [Volume fraction] 38.6 % 40-54 [facility] Work Phone: INR in Blood by Coagulation assayon 11-28-2021 INR Coag (Bld) [Relative time] 1.1 {INR} [facility] Work Phone: Laboratory - Chemistry and C hemistry - challengeon 11-28-2021 ALP [Catalytic activity/Vol] 116 U/L 45-117 [facility] Work Phone: ALT [Catalytic activity/Vol] 22 U/L 16-61 [facility] Work Phone: CO2 [Moles/Vol] 29.0 mmol/L 21.0-32.0 [facility] Work Phone: Globulin (S) [Mass/Vol] 4.6 g/dL 2.2-4.2 [facility] Work Phone: Urea nitrogen/Creatinine [Mass ratio] 11.9 mg/mg 10-20 [facility] Work Phone: Laboratory - Coagulationon 0 11-28-2021 PT Coag (PPP) [Time] 14.0 s 11.7-14.9 [facility] Work Phone: Laboratory - Hematology and Cell countson 11-28-2021 Erythrocyte distribution width (RBC) [Entitic vol] 49.1 fL 35.1-43.9 [facility] Work Phone: Erythrocyte distribution width (RBC) [Ratio] 14.6 % 11.6-14.6 [facility] Work Phone: Immature granulocytes/100 WBC (Bld) 0.600 % 0.0-0.9 [facility] Work Phone: Comment on above: IG% - Immature Granu locytes (promyelocytes, myelocytes and metamyelocytes) > 1% indicates that a LEFT SHIFT is Present. MCH (RBC) [Entitic mass] 30.0 pg 27.0-32.0 [facility] Work Phone: Nucleated RBC/100 WBC (Bld) [Ratio] 0 % 0-5 [facility] Work Phone: MCHC Auto (RBC) [Mass/Vol]on 11-28-2021 MCHC (RBC) [Mass/Vol] 32.4 g/dL 32-36 [facility] Work Phone: No Panel Informationon 11-28 Estimated GFR (MDRD) Amer 128 mL/min >60 [facility] Work Phone: Comment on above: GFR Calc Estimated GFR (MDRD) Non-Af Amer 106 mL/min >60 [facility] Work Phone: Comment on above: Non- GFR Calc Platelets bldon 11-28-2021 Platelets (Bld) [#/Vol] 275 10*3/uL 150-450 [facility] Work Phone: Serum or plasma albumin shira urement (mass/volume)on 11-28-2021 Albumin [Mass/Vol] 2.1 g/dL 3.2-5.0 [facility] Work Phone: Serum or plasma albumin/glob ulin mass ratioon 11-28-2021 Albumin/Globulin [Mass ratio] 0.5 {ratio} 0.9-2.4 [facility] Work Phone: Serum or plasma calcium shira urement (mass/volume)on 11-28-2021 Calcium [Mass/Vol] 8.4 mg/dL 8.5-10.1 [facility] Work Phone: Serum or plasma creatinine m easurement (mass/volume)on 11-28-2021 Creatinine [Mass/Vol] 0.75 mg/dL 0.70-1.30 [facility] Work Phone: Comment on above: The validity of the calculated GFR & GFRAA in patients over 70 years has not been determined. Clinical correlation is essential. Serum or plasma urea nitroge n measurement (mass/volume)on 11-28-2021 Urea nitrogen [Mass/Vol] 9 mg/dL 7-18 [facility] Work Phone: Thin prep Papanicolaou smear with manual screeningon 11-28-2021 Thin prep Papanicolaou smear with manual screening 40 U/L 15-37 [facility] Work Phone: Thin prep Papanicolaou smear with manual screening 5 5-15 [facility] Work Phone: Laboratory - Coagulationon 0 11-25-2021 INR Coag (Bld) [Relative time] 1.2 {INR} [facility] Work Phone: Comment on above: Critical Value > 4.0 Whole blood prothrombin time on 11-25-2021 PT Coag (Bld) [Time] 14.6 s 11.7-14.9 [facility] Work Phone: Absolute lymphocyte counton 11-21-2021 Lymphocytes Auto (Unsp spec) [#/Vol] 0.71 10*3/uL 0.83-4.51 [facility] Work Phone: Basophil percentageon 2021 Basophils/100 WBC (Bld) 0.8 % 0-1 [facility] Work Phone: Bilirubin [Mass/Vol] 0.30 mg/dL 0.20-1.00 [facility] Work Phone: Comment on above: For patients on eltr ombopag therapy, use of Dimension [place] TBIL is not recommended. Chloride [Moles/Vol] 102 mmol/L 98-107 [facility] Work Phone: Eosinophils/100 WBC (Bld) 8.2 % 0-5 [facility] Work Phone: Glucose [Mass/Vol] 82 mg/dL 74-106 [facility] Work Phone: Neutrophils (Bld) [#/Vol] 5.3 10*3/uL 2.0-7.7 [facility] Work Phone: Neutrophils/100 WBC (Bld) 68.0 % 47-70 [facility] Work Phone: Potassium [Moles/Vol] 4.4 mmol/L 3.5-5.1 [facility] Work Phone: Protein [Mass/Vol] 5.4 g/dL 6.4-8.2 [facility] Work Phone: Sodium [Moles/Vol] 137 mmol/L 136-145 [facility] Work Phone: WBC (Bld) [#/Vol] 7.8 10*3/uL 4.4-11.0 [facility] Work Phone: Blood erythrocytes count (nu mber/volume)on 04-04-2022 RBC (Bld) [#/Vol] 4.06 10*6/uL 4.6-6.2 [facility] Work Phone: Blood hemoglobin measurement (mass/volume)on 11-21-2021 Hemoglobin (Bld) [Mass/Vol] 12.1 g/dL 13.0-16.5 [facility] Work Phone: Blood lymphocytes/100 leukoc yteson 11-21-2021 Lymphocytes/100 WBC (Bld) 9.1 % 19-41 [facility] Work Phone: Blood monocytes/100 leukocyt eson 11-21-2021 Monocytes/100 WBC (Bld) 13.1 % 0-10 [facility] Work Phone: Blood platelet mean volumeon 11-21-2021 Platelet mean volume (Bld) [Entitic vol] 10.0 fL 6.2-12.0 [facility] Work Phone: Determination of erythrocyte mean corpuscular volume (MCV)on 11-21-2021 MCV (RBC) [Entitic vol] 91.9 fL 80-94 [facility] Work Phone: Hematocrit Auto (Bld) [Volum e fraction]on 11-21-2021 Hematocrit (Bld) [Volume fraction] 37.3 % 40-54 [facility] Work Phone: INR in Blood by Coagulation assayon 11-21-2021 INR Coag (Bld) [Relative time] 1.5 {INR} [facility] Work Phone: Laboratory - Chemistry and C hemistry - challengeon 11-21-2021 ALP [Catalytic activity/Vol] 115 U/L 45-117 [facility] Work Phone: ALT [Catalytic activity/Vol] 9 U/L 16-61 [facility] Work Phone: CO2 [Moles/Vol] 27.0 mmol/L 21.0-32.0 [facility] Work Phone: Globulin (S) [Mass/Vol] 3.7 g/dL 2.2-4.2 [facility] Work Phone: Urea nitrogen/Creatinine [Mass ratio] 21.6 mg/mg 10-20 [facility] Work Phone: Laboratory - Coagulationon 0 11-21-2021 PT Coag (PPP) [Time] 17.7 s 11.7-14.9 [facility] [facility] Work Phone: Laboratory - Hematology and Cell countson 11-21-2021 Erythrocyte distribution width (RBC) [Entitic vol] 49.6 fL 35.1-43.9 [facility] Work Phone: Erythrocyte distribution width (RBC) [Ratio] 14.6 % 11.6-14.6 [facility] Work Phone: Immature granulocytes/100 WBC (Bld) 0.800 % 0.0-0.9 [facility] Work Phone: Comment on above: IG% - Immature Granu locytes (promyelocytes, myelocytes and metamyelocytes) > 1% indicates that a LEFT SHIFT is Present. MCH (RBC) [Entitic mass] 29.8 pg 27.0-32.0 [facility] Work Phone: Nucleated RBC/100 WBC (Bld) [Ratio] 0 % 0-5 [facility] Work Phone: MCHC Auto (RBC) [Mass/Vol]on 11-21-2021 MCHC (RBC) [Mass/Vol] 32.4 g/dL 32-36 [facility] Work Phone: No Panel Informationon 11-21 Estimated GFR (MDRD) Amer 201 mL/min >60 [facility] Work Phone: Comment on above: GFR Calc Estimated GFR (MDRD) Non-Af Amer 166 mL/min >60 [facility] Work Phone: Comment on above: Non- GFR Calc Platelets bldon 11-21-2021 Platelets (Bld) [#/Vol] 237 10*3/uL 150-450 [facility] Work Phone: Serum or plasma albumin shira urement (mass/volume)on 11-21-2021 Albumin [Mass/Vol] 1.7 g/dL 3.2-5.0 [facility] Work Phone: Serum or plasma albumin/glob ulin mass ratioon 11-21-2021 Albumin/Globulin [Mass ratio] 0.5 {ratio} 0.9-2.4 [facility] Work Phone: Serum or plasma calcium shira urement (mass/volume)on 11-21-2021 Calcium [Mass/Vol] 7.6 mg/dL 8.5-10.1 [facility] Work Phone: Serum or plasma creatinine m easurement (mass/volume)on 11-21-2021 Creatinine [Mass/Vol] 0.51 mg/dL 0.70-1.30 [facility] Work Phone: Comment on above: The validity of the calculated GFR & GFRAA in patients over 70 years has not been determined. Clinical correlation is essential. Serum or plasma urea nitroge n measurement (mass/volume)on 11-21-2021 Urea nitrogen [Mass/Vol] 11 mg/dL 7-18 [facility] Work Phone: Thin prep Papanicolaou smear with manual screeningon 11-21-2021 Thin prep Papanicolaou smear with manual screening 29 U/L 15-37 [facility] Work Phone: Thin prep Papanicolaou smear with manual screening 8 5-15 [facility] Work Phone: Absolute lymphocyte counton 11-14-2021 Lymphocytes Auto (Unsp spec) [#/Vol] 0.84 10*3/uL 0.83-4.51 [facility] Work Phone: Basophil percentageon 2021 Basophils/100 WBC (Bld) 1.1 % 0-1 [facility] Work Phone: Bilirubin [Mass/Vol] 0.30 mg/dL 0.20-1.00 [facility] Work Phone: Comment on above: For patients on eltr ombopag therapy, use of Dimension [place] TBIL is not recommended. Chloride [Moles/Vol] 103 mmol/L 98-107 [facility] Work Phone: Eosinophils/100 WBC (Bld) 7.5 % 0-5 [facility] Work Phone: Glucose [Mass/Vol] 105 mg/dL 74-106 [facility] Work Phone: Comment on above: Fasting Glucose resu lt from 100 to 125 mg/dL suggests IMPAIRED HOMEOSTASIS per A.D.A. criteria. Neutrophils (Bld) [#/Vol] 4.5 10*3/uL 2.0-7.7 [facility] Work Phone: Neutrophils/100 WBC (Bld) 63.4 % 47-70 [facility] Work Phone: Potassium [Moles/Vol] 4.0 mmol/L 3.5-5.1 [facility] Work Phone: Protein [Mass/Vol] 6.1 g/dL 6.4-8.2 [facility] Work Phone: Sodium [Moles/Vol] 137 mmol/L 136-145 [facility] Work Phone: WBC (Bld) [#/Vol] 7.1 10*3/uL 4.4-11.0 [facility] Work Phone: Blood erythrocytes count (nu mber/volume)on 11-14-2021 RBC (Bld) [#/Vol] 4.07 10*6/uL 4.6-6.2 [facility] Work Phone: Blood hemoglobin measurement (mass/volume)on 11-14-2021 Hemoglobin (Bld) [Mass/Vol] 12.5 g/dL 13.0-16.5 [facility] Work Phone: Blood lymphocytes/100 leukoc yteson 11-14-2021 Lymphocytes/100 WBC (Bld) 11.9 % 19-41 [facility] Work Phone: Blood monocytes/100 leukocyt eson 11-14-2021 Monocytes/100 WBC (Bld) 15.3 % 0-10 [facility] Work Phone: Blood platelet mean volumeon 11-14-2021 Platelet mean volume (Bld) [Entitic vol] 10.2 fL 6.2-12.0 [facility] Work Phone: CFUNGBon 11-14-2021 CFUNGB Normal [facility] ([place]) Determination of erythrocyte mean corpuscular volume (MCV)on 11-14-2021 MCV (RBC) [Entitic vol] 92.6 fL 80-94 [facility] Work Phone: Hematocrit Auto (Bld) [Volum e fraction]on 11-14-2021 Hematocrit (Bld) [Volume fraction] 37.7 % 40-54 [facility] Work Phone: INR in Blood by Coagulation assayon 11-14-2021 INR Coag (Bld) [Relative time] 2.1 {INR} [facility] Work Phone: Laboratory - Chemistry and C hemistry - challengeon 11-14-2021 ALP [Catalytic activity/Vol] 118 U/L 45-117 [facility] Work Phone: ALT [Catalytic activity/Vol] 9 U/L 16-61 [facility] Work Phone: CO2 [Moles/Vol] 29.0 mmol/L 21.0-32.0 [facility] Work Phone: Globulin (S) [Mass/Vol] 4.4 g/dL 2.2-4.2 [facility] Work Phone: Urea nitrogen/Creatinine [Mass ratio] 15.5 mg/mg 10-20 [facility] Work Phone: Laboratory - Coagulationon 0 11-14-2021 PT Coag (PPP) [Time] 23.0 s 11.7-14.9 [facility] Work Phone: Laboratory - Hematology and Cell countson 11-14-2021 Erythrocyte distribution width (RBC) [Entitic vol] 49.3 fL 35.1-43.9 [facility] Work Phone: Erythrocyte distribution width (RBC) [Ratio] 14.5 % 11.6-14.6 [facility] Work Phone: Immature granulocytes/100 WBC (Bld) 0.800 % 0.0-0.9 [facility] Work Phone: Comment on above: IG% - Immature Granu locytes (promyelocytes, myelocytes and metamyelocytes) > 1% indicates that a LEFT SHIFT is Present. MCH (RBC) [Entitic mass] 30.7 pg 27.0-32.0 [facility] Work Phone: Nucleated RBC/100 WBC (Bld) [Ratio] 0 % 0-5 [facility] Work Phone: MCHC Auto (RBC) [Mass/Vol]on 11-14-2021 MCHC (RBC) [Mass/Vol] 33.2 g/dL 32-36 [facility] Work Phone: No Panel Informationon 11-14 Estimated GFR (MDRD) Amer 173 mL/min >60 [facility] Work Phone: Comment on above: GFR Calc Estimated GFR (MDRD) Non-Af Amer 143 mL/min >60 [facility] Work Phone: Comment on above: Non- GFR Calc Platelets bldon 11-14-2021 Platelets (Bld) [#/Vol] 309 10*3/uL 150-450 [facility] Work Phone: Serum or plasma albumin shira urement (mass/volume)on 11-14-2021 Albumin [Mass/Vol] 1.7 g/dL 3.2-5.0 [facility] Work Phone: Serum or plasma albumin/glob ulin mass ratioon 11-14-2021 Albumin/Globulin [Mass ratio] 0.4 {ratio} 0.9-2.4 [facility] Work Phone: Serum or plasma calcium shira urement (mass/volume)on 11-14-2021 Calcium [Mass/Vol] 8.5 mg/dL 8.5-10.1 [facility] Work Phone: Serum or plasma creatinine m easurement (mass/volume)on 11-14-2021 Creatinine [Mass/Vol] 0.58 mg/dL 0.70-1.30 [facility] Work Phone: Comment on above: The validity of the calculated GFR & GFRAA in patients over 70 years has not been determined. Clinical correlation is essential. Serum or plasma urea nitroge n measurement (mass/volume)on 11-14-2021 Urea nitrogen [Mass/Vol] 9 mg/dL 7-18 [facility] Work Phone: Thin prep Papanicolaou smear with manual screeningon 11-14-2021 Thin prep Papanicolaou smear with manual screening 26 U/L 15-37 [facility] Work Phone: Thin prep Papanicolaou smear with manual screening 5 5-15 [facility] Work Phone: Laboratory - Coagulationon 0 11-10-2021 INR Coag (Bld) [Relative time] 1.4 {INR} [facility] Work Phone: Comment on above: Critical Value > 4.0 Whole blood prothrombin time on 11-10-2021 PT Coag (Bld) [Time] 16.7 s 11.7-14.9 [facility] Work Phone: CFUNGBon 11-08-2021 CFUNGB Normal [facility] ([place]) Absolute lymphocyte counton 11-07-2021 Lymphocytes Auto (Unsp spec) [#/Vol] 0.70 10*3/uL 0.83-4.51 [facility] Work Phone: Basophil percentageon 2021 Basophils/100 WBC (Bld) 0.8 % 0-1 [facility] Work Phone: Bilirubin [Mass/Vol] 0.30 mg/dL 0.20-1.00 [facility] Work Phone: Comment on above: For patients on eltr ombopag therapy, use of Dimension [place] TBIL is not recommended. Chloride [Moles/Vol] 104 mmol/L 98-107 [facility] Work Phone: Eosinophils/100 WBC (Bld) 4.3 % 0-5 [facility] Work Phone: Glucose [Mass/Vol] 93 mg/dL 74-106 [facility] Work Phone: Neutrophils (Bld) [#/Vol] 7.4 10*3/uL 2.0-7.7 [facility] Work Phone: Neutrophils/100 WBC (Bld) 78.0 % 47-70 [facility] Work Phone: Potassium [Moles/Vol] 4.1 mmol/L 3.5-5.1 [facility] Work Phone: Protein [Mass/Vol] 6.4 g/dL 6.4-8.2 [facility] Work Phone: Sodium [Moles/Vol] 135 mmol/L 136-145 [facility] Work Phone: WBC (Bld) [#/Vol] 9.5 10*3/uL 4.4-11.0 [facility] Work Phone: Blood erythrocytes count (nu mber/volume)on 11-07-2021 RBC (Bld) [#/Vol] 4.06 10*6/uL 4.6-6.2 [facility] Work Phone: Blood hemoglobin measurement (mass/volume)on 11-07-2021 Hemoglobin (Bld) [Mass/Vol] 12.3 g/dL 13.0-16.5 [facility] Work Phone: Blood lymphocytes/100 leukoc yteson 11-07-2021 Lymphocytes/100 WBC (Bld) 7.4 % 19-41 [facility] Work Phone: Blood monocytes/100 leukocyt eson 11-07-2021 Monocytes/100 WBC (Bld) 8.2 % 0-10 [facility] Work Phone: Blood platelet mean volumeon 11-07-2021 Platelet mean volume (Bld) [Entitic vol] 9.8 fL 6.2-12.0 [facility] Work Phone: Determination of erythrocyte mean corpuscular volume (MCV)on 11-07-2021 MCV (RBC) [Entitic vol] 91.6 fL 80-94 [facility] Work Phone: Hematocrit Auto (Bld) [Volum e fraction]on 11-07-2021 Hematocrit (Bld) [Volume fraction] 37.2 % 40-54 [facility] Work Phone: INR in Blood by Coagulation assayon 11-07-2021 INR Coag (Bld) [Relative time] 1.3 {INR} [facility] Work Phone: Laboratory - Chemistry and C hemistry - challengeon 11-07-2021 ALP [Catalytic activity/Vol] 140 U/L 45-117 [facility] Work Phone: ALT [Catalytic activity/Vol] 26 U/L 16-61 [facility] Work Phone: CO2 [Moles/Vol] 27.0 mmol/L 21.0-32.0 [facility] Work Phone: Globulin (S) [Mass/Vol] 4.6 g/dL 2.2-4.2 [facility] Work Phone: Urea nitrogen/Creatinine [Mass ratio] 19.1 mg/mg 10-20 [facility] Work Phone: Laboratory - Coagulationon 0 11-07-2021 PT Coag (PPP) [Time] 15.1 s 11.7-14.9 [facility] Work Phone: Laboratory - Hematology and Cell countson 11-07-2021 Erythrocyte distribution width (RBC) [Entitic vol] 48.0 fL 35.1-43.9 [facility] Work Phone: Erythrocyte distribution width (RBC) [Ratio] 14.5 % 11.6-14.6 [facility] Work Phone: Immature granulocytes/100 WBC (Bld) 1.300 % 0.0-0.9 [facility] Work Phone: Comment on above: IG% - Immature Granu locytes (promyelocytes, myelocytes and metamyelocytes) > 1% indicates that a LEFT SHIFT is Present. MCH (RBC) [Entitic mass] 30.3 pg 27.0-32.0 [facility] Work Phone: Nucleated RBC/100 WBC (Bld) [Ratio] 0 % 0-5 [facility] Work Phone: MCHC Auto (RBC) [Mass/Vol]on 11-07-2021 MCHC (RBC) [Mass/Vol] 33.1 g/dL 32-36 [facility] Work Phone: No Panel Informationon 11-07 Estimated GFR (MDRD) Amer 175 mL/min >60 [facility] Work Phone: Comment on above: GFR Calc Estimated GFR (MDRD) Non-Af Amer 144 mL/min >60 [facility] Work Phone: Comment on above: Non- GFR Calc Platelets bldon 11-07-2021 Platelets (Bld) [#/Vol] 315 10*3/uL 150-450 [facility] Work Phone: Serum or plasma albumin shira urement (mass/volume)on 11-07-2021 Albumin [Mass/Vol] 1.8 g/dL 3.2-5.0 [facility] Work Phone: Serum or plasma albumin/glob ulin mass ratioon 11-07-2021 Albumin/Globulin [Mass ratio] 0.4 {ratio} 0.9-2.4 [facility] Work Phone: Serum or plasma calcium shira urement (mass/volume)on 11-07-2021 Calcium [Mass/Vol] 8.4 mg/dL 8.5-10.1 [facility] Work Phone: Serum or plasma creatinine m easurement (mass/volume)on 11-07-2021 Creatinine [Mass/Vol] 0.58 mg/dL 0.70-1.30 [facility] Work Phone: Comment on above: The validity of the calculated GFR & GFRAA in patients over 70 years has not been determined. Clinical correlation is essential. Serum or plasma urea nitroge n measurement (mass/volume)on 11-07-2021 Urea nitrogen [Mass/Vol] 11 mg/dL 7-18 [facility] Work Phone: Thin prep Papanicolaou smear with manual screeningon 11-07-2021 Thin prep Papanicolaou smear with manual screening 43 U/L 15-37 [facility] Work Phone: Thin prep Papanicolaou smear with manual screening 4 5-15 [facility] Work Phone: CBFon 11-05-2021 CBF Normal [facility] ([place]) CBLon 11-04-2021 CBL Normal [facility] ([place]) CBL Normal [facility] ([place]) .Auto Diffon 11-02-2021 Basophil, Absolute 0.10 10 3/mcL Normal 0.00-0.27 [facility] ([place]) Comment on above: Performed By: #### C BC, BMP, ADIFF, GFR, PRO, ANEU ####[address] [address] Basophils/100 WBC (Bld) 1.0 % Normal 0.0-2.5 [facility] ([place]) Comment on above: Performed By: #### C BC, BMP, ADIFF, GFR, PRO, ANEU ####[address] [address] Eosinophil, Absolute 0.40 10 3/mcL Normal 0.00-0.65 [facility] ([place]) Comment on above: Performed By: #### C BC, BMP, ADIFF, GFR, PRO, ANEU ####[address] [address] Eosinophils/100 WBC (Bld) 5.4 % Normal 0.0-6.0 [facility] ([place]) Comment on above: Performed By: #### C BC, BMP, ADIFF, GFR, PRO, ANEU ####[address] [address] Lymphocyte, Absolute 0.60 10 3/mcL Low 0.90-4.32 [facility] ([place]) Comment on above: Performed By: #### C BC, BMP, ADIFF, GFR, PRO, ANEU ####[address] [address] Lymphocytes/100 WBC (Bld) 7.2 % Low 20.0-40.0 [facility] ([place]) Comment on above: Performed By: #### C BC, BMP, ADIFF, GFR, PRO, ANEU ####[address] [address] Monocyte, Absolute 0.80 10 3/mcL Normal 0.09-1.40 [facility] ([place]) Comment on above: Performed By: #### C BC, BMP, ADIFF, GFR, PRO, ANEU ####[address] [address] Monocytes/100 WBC (Bld) 10.2 % Normal 2.0-13.0 [facility] ([place]) Comment on above: Performed By: #### C BC, BMP, ADIFF, GFR, PRO, ANEU ####[address] [address] Neutrophils/100 WBC (Bld) 76.2 % High 50.0-75.0 [facility] ([place]) Comment on above: Performed By: #### C BC, BMP, ADIFF, GFR, PRO, ANEU ####[address] [address] .GFRon 11-02-2021 GFR >60 Normal [facility] ([place]) Comment on above: Result Comment: GFR Population mean for , Non- Americans Ages 20-29 = 116 mL/min/1.73 sq.m. Ages 30-39 = 107 mL/min/1.73 sq.m. Ages 40-49 = 99 mL/min/1.73 sq.m. Ages 50-59 = 93 mL/min/1.73 sq.m. Ages 60-69 = 85 mL/min/1.73 sq.m. Ages 70+ = 75 mL/min/1.73 sq.m.Chronic Kidney Disease: Less than 60 mL/min/1.73 square metersEnd Stage Renal Disease: Less than 15 mL/min/1.73 square meters Performed By: #### C BC, BMP, ADIFF, GFR, PRO, ANEU ####[place] [address] GFR Non- >60 Normal [facility] ([place]) Comment on above: Result Comment: GFR Population mean for , Non- Americans Ages 20-29 = 116 mL/min/1.73 sq.m. Ages 30-39 = 107 mL/min/1.73 sq.m. Ages 40-49 = 99 mL/min/1.73 sq.m. Ages 50-59 = 93 mL/min/1.73 sq.m. Ages 60-69 = 85 mL/min/1.73 sq.m. Ages 70+ = 75 mL/min/1.73 sq.m.Chronic Kidney Disease: Less than 60 mL/min/1.73 square metersEnd Stage Renal Disease: Less than 15 mL/min/1.73 square meters Performed By: #### C BC, BMP, ADIFF, GFR, PRO, ANEU ####[place] [address] .NEUABSon 11-02-2021 Neutrophil, Absolute 6.30 10 3/mcL Normal 2.25-8.10 [facility] ([place]) Comment on above: Performed By: #### C BC, BMP, ADIFF, GFR, PRO, ANEU ####[place] [address] BMPon 11-02-2021 BUN/Creatinine Ratio 16.4 ratio Normal 10.0-22.0 [facility] ([place]) Comment on above: Performed By: #### C BC, BMP, ADIFF, GFR, PRO, ANEU ####[place] [address] Calcium [Mass/Vol] 8.3 mg/dL Low 8.7-10.4 [facility] ([place]) Comment on above: Result Comment: No te - New Reference Range in effect 20 Performed By: #### C BC, BMP, ADIFF, GFR, PRO, ANEU ####[place] [address] Chloride [Moles/Vol] 109 mmol/L Normal 98-110 [facility] ([place]) Comment on above: Performed By: #### C BC, BMP, ADIFF, GFR, PRO, ANEU ####[place] [address] CO2 [Moles/Vol] 28 mmol/L Normal 22-32 [facility] ([place]) Comment on above: Performed By: #### C BC, BMP, ADIFF, GFR, PRO, ANEU ####[place] [address] Creatinine [Mass/Vol] 0.67 mg/dL Normal 0.60-1.40 [facility] ([place]) Comment on above: Performed By: #### C BC, BMP, ADIFF, GFR, PRO, ANEU ####[place] [address] Electrolyte Balance 5.0 mEq/L Normal 4.0-15.0 [facility] ([place]) Comment on above: Performed By: #### C BC, BMP, ADIFF, GFR, PRO, ANEU ####[place] [address] Glucose [Mass/Vol] 93 mg/dL Normal 82-115 [facility] ([place]) Comment on above: Performed By: #### C BC, BMP, ADIFF, GFR, PRO, ANEU ####[place] [address] Potassium [Moles/Vol] 4.2 mmol/L Normal 3.5-5.0 [facility] ([place]) Comment on above: Performed By: #### C BC, BMP, ADIFF, GFR, PRO, ANEU ####[address] [address] Sodium [Moles/Vol] 142 mmol/L Normal 136-145 [facility] ([place]) Comment on above: Performed By: #### C BC, BMP, ADIFF, GFR, PRO, ANEU ####[place] [address] Urea nitrogen [Mass/Vol] 11.0 mg/dL Normal 8.0-22.0 [facility] ([place]) Comment on above: Performed By: #### C BC, BMP, ADIFF, GFR, PRO, ANEU ####[place] [address] CBCon 11-02-2021 Erythrocyte distribution width (RBC) [Ratio] 14.8 % Normal 11.5-15.5 [facility] ([place]) Comment on above: Performed By: #### C BC, BMP, ADIFF, GFR, PRO, ANEU ####[place] [address] Hematocrit (Bld) [Volume fraction] 34.9 % Low 40.0-52.0 [facility] ([place]) Comment on above: Performed By: #### C BC, BMP, ADIFF, GFR, PRO, ANEU ####[place] [address] Hgb 12.0 G/dL Low 13.0-17.5 [facility] ([place]) Comment on above: Performed By: #### C BC, BMP, ADIFF, GFR, PRO, ANEU ####[place] [address] MCH (RBC) [Entitic mass] 31.4 pg Normal 27.0-33.0 [facility] ([place]) Comment on above: Performed By: #### C BC, BMP, ADIFF, GFR, PRO, ANEU ####[place] [address] MCHC 34.4 G/dL Normal 32.0-36.0 [facility] ([place]) Comment on above: Performed By: #### C BC, BMP, ADIFF, GFR, PRO, ANEU ####[place] [address] MCV (RBC) [Entitic vol] 91.3 fL Normal 81.0-100.0 [facility] ([place]) Comment on above: Performed By: #### C BC, BMP, ADIFF, GFR, PRO, ANEU ####[place] [address] Platelet 231 10 3/mcL Normal 150-450 [facility] ([place]) Comment on above: Performed By: #### C BC, BMP, ADIFF, GFR, PRO, ANEU ####[place] [address] Platelet mean volume (Bld) [Entitic vol] 7.6 fL Normal 6.4-10.5 [facility] ([place]) Comment on above: Performed By: #### C BC, BMP, ADIFF, GFR, PRO, ANEU ####[place] [address] RBC 3.83 10 6/mcL Low 4.50-6.00 [facility] ([place]) Comment on above: Performed By: #### C BC, BMP, ADIFF, GFR, PRO, ANEU ####[place] [address] WBC 8.20 10 3/mcL Normal 4.50-10.80 [facility] ([place]) Comment on above: Performed By: #### C BC, BMP, ADIFF, GFR, PRO, ANEU ####[place] [address] LABORATORYOrdered By: SYSTEM SYSTEM on 11-02-2021 Basophils (Bld) [#/Vol] 0.10 103/mcL Invalid Interpretation Code 0.00 - 0.27 10^3/mcL AH Remisol SS Basophils/100 WBC (Bld) 1.0 % Invalid Interpretation Code 0.0 - 2.5 % AH Remisol SS Calcium [Mass/Vol] 8.3 mg/dL Invalid Interpretation Code 8.7 - 10.4 mg/dL AH ADM SS Chloride [Moles/Vol] 109 mmol/L Invalid Interpretation Code 98 - 110 mEq/L AH ADM SS CO2 [Moles/Vol] 28 mmol/L Invalid Interpretation Code 22 - 32 mEq/L AH ADM SS Creatinine [Mass/Vol] 0.67 mg/dL Invalid Interpretation Code 0.60 - 1.40 mg/dL AH ADM SS Electrolyte Balance 5.0 mEq/L Invalid Interpretation Code 4.0 - 15.0 mEq/L AH ADM SS Eosinophils (Bld) [#/Vol] 0.40 103/mcL Invalid Interpretation Code 0.00 - 0.65 10^3/mcL AH Remisol SS Eosinophils/100 WBC (Bld) 5.4 % Invalid Interpretation Code 0.0 - 6.0 % AH Remisol SS Erythrocyte distribution width (RBC) [Ratio] 14.8 % Invalid Interpretation Code 11.5 - 15.5 % AH Remisol SS GFR/1.73 sq M.predicted among blacks MDRD (S/P/Bld) [Vol rate/Area] ml/min/1.73sqm Invalid Interpretation Code Chemistry S GFR/1.73 sq M.predicted among non-blacks MDRD (S/P/Bld) [Vol rate/Area] ml/min/1.73sqm Invalid Interpretation Code Chemistry S Glucose [Mass/Vol] 93 mg/dL Invalid Interpretation Code 82 - 115 mg/dL ADM SS Hematocrit (Bld) [Volume fraction] 34.9 % Invalid Interpretation Code 40.0 - 52.0 % AH Remisol SS Hemoglobin (Bld) [Mass/Vol] 12.0 G/dL Invalid Interpretation Code 13.0 - 17.5 G/dL AH Remisol SS Lymphocytes (Bld) [#/Vol] 0.60 103/mcL Invalid Interpretation Code 0.90 - 4.32 10^3/mcL AH Remisol SS Lymphocytes/100 WBC (Bld) 7.2 % Invalid Interpretation Code 20.0 - 40.0 % AH Remisol SS MCH (RBC) [Entitic mass] 31.4 pg Invalid Interpretation Code 27.0 - 33.0 pg AH Remisol SS MCHC (RBC) [Mass/Vol] 34.4 G/dL Invalid Interpretation Code 32.0 - 36.0 G/dL AH Remisol SS MCV (RBC) [Entitic vol] 91.3 fL Invalid Interpretation Code 81.0 - 100.0 fL AH Remisol SS Monocytes (Bld) [#/Vol] 0.80 103/mcL Invalid Interpretation Code 0.09 - 1.40 10^3/mcL AH Remisol SS Monocytes/100 WBC (Bld) 10.2 % Invalid Interpretation Code 2.0 - 13.0 % AH Remisol SS Neutrophils (Bld) [#/Vol] 6.30 103/mcL Invalid Interpretation Code 2.25 - 8.10 10^3/mcL AH Remisol SS Neutrophils/100 WBC (Bld) 76.2 % Invalid Interpretation Code 50.0 - 75.0 % AH Remisol SS Platelet mean volume (Bld) [Entitic vol] 7.6 fL Invalid Interpretation Code 6.4 - 10.5 fL AH Remisol SS Platelets (Bld) [#/Vol] 231 103/mcL Invalid Interpretation Code 150 - 450 10^3/mcL AH Remisol SS Potassium [Moles/Vol] 4.2 mmol/L Invalid Interpretation Code 3.5 - 5.0 mEq/L AH ADM SS RBC (Bld) [#/Vol] 3.83 106/mcL Invalid Interpretation Code 4.50 - 6.00 10^6/mcL AH Remisol SS Sodium [Moles/Vol] 142 mmol/L Invalid Interpretation Code 136 - 145 mEq/L AH ADM SS Urea nitrogen [Mass/Vol] 11.0 mg/dL Invalid Interpretation Code 8.0 - 22.0 mg/dL AH ADM SS Urea nitrogen/Creatinine [Mass ratio] 16.4 ratio Invalid Interpretation Code 10.0 - 22.0 ratio AH ADM SS WBC (Bld) [#/Vol] 8.20 103/mcL Invalid Interpretation Code 4.50 - 10.80 10^3/mcL AH Remisol SS LABORATORYOrdered By: Chan Maza on 11-02-2021 INR Coag (PPP) [Relative time] 2.8 {INR} Invalid Interpretation Code AH Auto Coag SS PT Coag (PPP) [Time] 34.2 s Invalid Interpretation Code 9.0 - 14.9 seconds AH Auto Coag SS PROon 11-02-2021 INR Coag (PPP) [Relative time] 2.8 {INR} Normal [facility] ([place]) Comment on above: Result Comment: [employer] (CHEST, 1992, 102:312S-25S)recommended therapeutic range for oral anticoagulant therapy is:LOW RISK: Prophylaxis of venous thrombosis INR: 2.0-3.0 Treatment of pulmonary embolism 2.0-3.0 Prevention of systemic embolism 2.0-3.0HIGH RISK: Mechanical prosthetic valves 2.5-3.5 Performed By: #### C BC, BMP, ADIFF, GFR, PRO, ANEU ####[address] [address] PT Coag (PPP) [Time] 34.2 s High 9.0-14.9 [facility] ([place]) Comment on above: Result Comment: Effe ctive 03/03/08, Protime results may be affected by some antibiotics (i.e. Ciprofloxacin, Azithromycin, Bactrim) which may potentiate the action of oral anticoagulants, with further increase in Protime/INR. Performed By: #### C BC, BMP, ADIFF, GFR, PRO, ANEU ####[address] [address] .Auto Diffon 11-01-2021 Basophil, Absolute 0.00 10 3/mcL Normal 0.00-0.27 [facility] ([place]) Comment on above: Performed By: #### A DIFF, CBC, ANEU, BMP, GFR ####[address] [address] Basophils/100 WBC (Bld) 0.6 % Normal 0.0-2.5 [facility] ([place]) Comment on above: Performed By: #### A DIFF, CBC, ANEU, BMP, GFR ####[address] [address] Eosinophil, Absolute 0.40 10 3/mcL Normal 0.00-0.65 [facility] ([place]) Comment on above: Performed By: #### A DIFF, CBC, ANEU, BMP, GFR ####[address] [address] Eosinophils/100 WBC (Bld) 5.3 % Normal 0.0-6.0 [facility] ([place]) Comment on above: Performed By: #### A DIFF, CBC, ANEU, BMP, GFR ####[address] [address] Lymphocyte, Absolute 0.60 10 3/mcL Low 0.90-4.32 [facility] ([place]) Comment on above: Performed By: #### A DIFF, CBC, ANEU, BMP, GFR ####[address] [address] Lymphocytes/100 WBC (Bld) 7.3 % Low 20.0-40.0 [facility] ([place]) Comment on above: Performed By: #### A DIFF, CBC, ANEU, BMP, GFR ####[address] [address] Monocyte, Absolute 0.90 10 3/mcL Normal 0.09-1.40 [facility] ([place]) Comment on above: Performed By: #### A DIFF, CBC, ANEU, BMP, GFR ####[address] [address] Monocytes/100 WBC (Bld) 10.5 % Normal 2.0-13.0 [facility] ([place]) Comment on above: Performed By: #### A DIFF, CBC, ANEU, BMP, GFR ####[address] [address] Neutrophils/100 WBC (Bld) 76.3 % High 50.0-75.0 [facility] ([place]) Comment on above: Performed By: #### A DIFF, CBC, ANEU, BMP, GFR ####[address] [address] .GFRon 11-01-2021 GFR Non- >60 Normal [facility] ([place]) Comment on above: Result Comment: GFR Population mean for , Non- Americans Ages 20-29 = 116 mL/min/1.73 sq.m. Ages 30-39 = 107 mL/min/1.73 sq.m. Ages 40-49 = 99 mL/min/1.73 sq.m. Ages 50-59 = 93 mL/min/1.73 sq.m. Ages 60-69 = 85 mL/min/1.73 sq.m. Ages 70+ = 75 mL/min/1.73 sq.m.Chronic Kidney Disease: Less than 60 mL/min/1.73 square metersEnd Stage Renal Disease: Less than 15 mL/min/1.73 square meters Performed By: #### A DIFF, CBC, ANEU, BMP, GFR ####[address] [address] GFR >60 Normal [facility] ([place]) Comment on above: Result Comment: GFR Population mean for , Non- Americans Ages 20-29 = 116 mL/min/1.73 sq.m. Ages 30-39 = 107 mL/min/1.73 sq.m. Ages 40-49 = 99 mL/min/1.73 sq.m. Ages 50-59 = 93 mL/min/1.73 sq.m. Ages 60-69 = 85 mL/min/1.73 sq.m. Ages 70+ = 75 mL/min/1.73 sq.m.Chronic Kidney Disease: Less than 60 mL/min/1.73 square metersEnd Stage Renal Disease: Less than 15 mL/min/1.73 square meters Performed By: #### A DIFF, CBC, ANEU, BMP, GFR ####[place] [address] .NEUABSon 11-01-2021 Neutrophil, Absolute 6.30 10 3/mcL Normal 2.25-8.10 [facility] ([place]) Comment on above: Performed By: #### A DIFF, CBC, ANEU, BMP, GFR ####[place] [address] BCIDon 11-01-2021 Acinetobacter baumannii Not detected Normal Not Detected [facility] ([place]) Comment on above: Order Comment: Claudette Atwood RN 11/01/2021 15:21:36 EDT jlp Performed By: #### B ANDI ####[place] [address] BCID Comment See Comment Normal [facility] ([place]) Comment on above: Order Comment: Claudette Atwood RN 11/01/2021 15:21:36 EDT jlp Result Comment: A N ot Detected result for the Film[employer] antimicrobial resistance gene does not indicate susceptibility as multiple mechanisms of resistance to methicillin, vancomycin and carbapenems exist. Identification and susceptibility results to follow.If BCID panel was negative (Not Detected) for all targets, thisdoes not exclude a blood stream infection. Our blood culture system detectedgrowth. Species identification and susceptibility testing (if appropriate) tofollginny. Performed By: #### B ANDI ####[address] [address] Adeline albicans Not detected Normal Not Detected [facility] ([place]) Comment on above: Order Comment: Claudette muhammad to Manuela Atwood RN 11/01/2021 15:21:36 EDT jlp Performed By: #### B ANDI ####[address] [address] Adeline glabrata Not detected Normal Not Detected [facility] ([place]) Comment on above: Order Comment: Claudette muhammad to Manuela Atwood RN 11/01/2021 15:21:36 EDT jlp Performed By: #### B ADNI ####[address] [address] Adeline krusei Not detected Normal Not Detected [facility] ([place]) Comment on above: Order Comment: Claudette Atwood RN 11/01/2021 15:21:36 EDT jlp Performed By: #### B ANDI ####[address] [address] Adeline parapsilosis Not detected Normal Not Detected [facility] ([place]) Comment on above: Order Comment: Claudette Atwood RN 11/01/2021 15:21:36 EDT jlp Performed By: #### B ANDI ####[address] [address] Adeline tropicalis Not detected Normal Not Detected [facility] ([place]) Comment on above: Order Comment: Claudette Atwood RN 11/01/2021 15:21:36 EDT jlp Performed By: #### B ANDI ####[address] [address] E. Coli Not detected Normal Not Detected [facility] ([place]) Comment on above: Order Comment: Claudette Atwood RN 11/01/2021 15:21:36 EDT jlp Performed By: #### B ANDI ####[address] [address] Enterobacter cloacae Complex Not detected Normal Not Detected [facility] ([place]) Comment on above: Order Comment: Claudette muhammad to Manuela Atwood RN 11/01/2021 15:21:36 EDT jlp Performed By: #### B ANDI ####[address] [address] Enterobacteriaceae Not detected Normal Not Detected [facility] ([place]) Comment on above: Order Comment: Claudette muhammad to Manuela Atwood RN 11/01/2021 15:21:36 EDT jlp Performed By: #### B ANDI ####[address] [address] Enterococcus Not detected Normal Not Detected [facility] ([place]) Comment on above: Order Comment: Claudette muhammad to Manuela Atwood RN 11/01/2021 15:21:36 EDT jlp Performed By: #### B ANDI ####[place] [address] Haemophilus influenzae Not detected Normal Not Detected [facility] ([place]) Comment on above: Order Comment: Claudette muhammad to Manuela Atwood RN 11/01/2021 15:21:36 EDT jlp Performed By: #### B ANDI ####[place] [address] Klebsiella oxytoca Not detected Normal Not Detected [facility] ([place]) Comment on above: Order Comment: Claudette muhammad to Manuela Atwood RN 11/01/2021 15:21:36 EDT jlp Performed By: #### B ANDI ####[place] [address] Klebsiella pneumoniae Not detected Normal Not Detected [facility] ([place]) Comment on above: Order Comment: Claudette muhammad to Manuela Atwood RN 11/01/2021 15:21:36 EDT jlp Performed By: #### B ANDI ####[place] [address] Listeria monocytogenes Not detected Normal Not Detected [facility] ([place]) Comment on above: Order Comment: Claudette muhammad to Manuela Atwood RN 11/01/2021 15:21:36 EDT jlp Performed By: #### B ANDI ####[address] [address] Neisseria meningitidis Not detected Normal Not Detected [facility] ([place]) Comment on above: Order Comment: Claudette Atwood RN 11/01/2021 15:21:36 EDT jlp Performed By: #### B ANDI ####[address] [address] Proteus Not detected Normal Not Detected [facility] ([place]) Comment on above: Order Comment: Claudette Atwood RN 11/01/2021 15:21:36 EDT jlp Performed By: #### B ANDI ####[place] [address] Pseudomonas aeruginosa Not detected Normal Not Detected [facility] ([place]) Comment on above: Order Comment: Claudette Atwood RN 11/01/2021 15:21:36 EDT jlp Performed By: #### B ANDI ####[place] [address] S. agalactiae Org specific cx Ql (Vag fld) Not detected Normal Not Detected [facility] ([place]) Comment on above: Order Comment: Claudette Atwood RN 11/01/2021 15:21:36 EDT jlp Performed By: #### B ANDI ####[place] [address] Serratia marcescens Not detected Normal Not Detected [facility] ([place]) Comment on above: Order Comment: Claudette Atwood RN 11/01/2021 15:21:36 EDT jlp Performed By: #### B ANDI ####[address] [address] Staphylococcus Not detected Normal Not Detected [facility] ([place]) Comment on above: Order Comment: Claudette Atwood RN 11/01/2021 15:21:36 EDT jlp Performed By: #### B ANDI ####[place] [address] Staphylococcus aureus Not detected Normal Not Detected [facility] ([place]) Comment on above: Order Comment: Claudette Atwood RN 11/01/2021 15:21:36 EDT jlp Result Comment: If S taphylococcus aureus is Detected, an Infectious Disease physician consult is required on identification. Performed By: #### B ANDI ####[address] [address] Streptococcus Not detected Normal Not Detected [facility] ([place]) Comment on above: Order Comment: Claudette d to Manuela Atwood RN 11/01/2021 15:21:36 EDT jlp Performed By: #### B ANDI ####[place] [address] Streptococcus pneumoniae Not detected Normal Not Detected [facility] ([place]) Comment on above: Order Comment: Claudette muhammad to Manuela Atwood RN 11/01/2021 15:21:36 EDT jlp Performed By: #### B ANDI ####[place] [address] Streptococcus pyogenes Not detected Normal Not Detected [facility] ([place]) Comment on above: Order Comment: Claudette muhammad to Manuela Atwood RN 11/01/2021 15:21:36 EDT jlp Performed By: #### B ANDI ####[place] [address] BMPon 11-01-2021 BUN/Creatinine Ratio 23.8 ratio High 10.0-22.0 [facility] ([place]) Comment on above: Performed By: #### A DIFF, CBC, ANEU, BMP, GFR ####[place] [address] Calcium [Mass/Vol] 8.2 mg/dL Low 8.7-10.4 [facility] ([place]) Comment on above: Result Comment: No te - New Reference Range in effect 20 Performed By: #### A DIFF, CBC, ANEU, BMP, GFR ####[place] [address] Chloride [Moles/Vol] 107 mmol/L Normal 98-110 [facility] ([place]) Comment on above: Performed By: #### A DIFF, CBC, ANEU, BMP, GFR ####[place] [id number] CO2 [Moles/Vol] 30 mmol/L Normal 22-32 [facility] ([place]) Comment on above: Performed By: #### A DIFF, CBC, ANEU, BMP, GFR ####[address] [address] Creatinine [Mass/Vol] 0.63 mg/dL Normal 0.60-1.40 [facility] ([place]) Comment on above: Performed By: #### A DIFF, CBC, ANEU, BMP, GFR ####[address] [address] Electrolyte Balance 5.0 mEq/L Normal 4.0-15.0 [facility] ([place]) Comment on above: Performed By: #### A DIFF, CBC, ANEU, BMP, GFR ####[place] [address] Glucose [Mass/Vol] 95 mg/dL Normal 82-115 [facility] ([place]) Comment on above: Performed By: #### A DIFF, CBC, ANEU, BMP, GFR ####[address] [address] Potassium [Moles/Vol] 3.8 mmol/L Normal 3.5-5.0 [facility] ([place]) Comment on above: Performed By: #### A DIFF, CBC, ANEU, BMP, GFR ####[address] [address] Sodium [Moles/Vol] 142 mmol/L Normal 136-145 [facility] ([place]) Comment on above: Performed By: #### A DIFF, CBC, ANEU, BMP, GFR ####[address] [address] Urea nitrogen [Mass/Vol] 15.0 mg/dL Normal 8.0-22.0 [facility] ([place]) Comment on above: Performed By: #### A DIFF, CBC, ANEU, BMP, GFR ####[address] [address] CBCon 11-01-2021 Erythrocyte distribution width (RBC) [Ratio] 14.7 % Normal 11.5-15.5 [facility] ([place]) Comment on above: Performed By: #### A DIFF, CBC, ANEU, BMP, GFR ####[place] [address] Hematocrit (Bld) [Volume fraction] 34.7 % Low 40.0-52.0 [facility] ([place]) Comment on above: Performed By: #### A DIFF, CBC, ANEU, BMP, GFR ####[place] [address] Hgb 12.0 G/dL Low 13.0-17.5 [facility] ([place]) Comment on above: Performed By: #### A DIFF, CBC, ANEU, BMP, GFR ####[place] [address] MCH (RBC) [Entitic mass] 31.2 pg Normal 27.0-33.0 [facility] ([place]) Comment on above: Performed By: #### A DIFF, CBC, ANEU, BMP, GFR ####[place] [address] MCHC 34.4 G/dL Normal 32.0-36.0 [facility] ([place]) Comment on above: Performed By: #### A DIFF, CBC, ANEU, BMP, GFR ####[place] [address] MCV (RBC) [Entitic vol] 90.6 fL Normal 81.0-100.0 [facility] ([place]) Comment on above: Performed By: #### A DIFF, CBC, ANEU, BMP, GFR ####[place] [address] Platelet 226 10 3/mcL Normal 150-450 [facility] ([place]) Comment on above: Performed By: #### A DIFF, CBC, ANEU, BMP, GFR ####[place] [address] Platelet mean volume (Bld) [Entitic vol] 8.2 fL Normal 6.4-10.5 [facility] ([place]) Comment on above: Performed By: #### A DIFF, CBC, ANEU, BMP, GFR ####[place] [address] [place] [address] RBC 3.83 10 6/mcL Low 4.50-6.00 [facility] ([place]) Comment on above: Performed By: #### A DIFF, CBC, ANEU, BMP, GFR ####[place] [address] [address] [place] [address] WBC 8.30 10 3/mcL Normal 4.50-10.80 [facility] ([place]) Comment on above: Performed By: #### A DIFF, CBC, ANEU, BMP, GFR ####[address] [address] LABORATORYOrdered By: Rahat Torres on 11-01-2021 Adenovirus DNA GETACHEW+non-probe Ql (Nph) Not Detected *NA* (11/01/21 1:44 PM) Invalid Interpretation Code Not Detected AH Auto Viro/Sero SS ADMITTED TO INTENSIVE CARE UNIT FOR CONDITION OF INTEREST:FIND:PT:^PA TIENT:ORD: No (11/01/21 1:44 PM) Invalid Interpretation Code AH Auto Viro/Sero SS B. pertussis toxin promoter region GETACHEW+non-probe Ql (Nph) Not Detected *NA* (11/01/21 1:44 PM) Invalid Interpretation Code Not Detected AH Auto Viro/Sero SS Bordetella Parapertussis Not Detected *NA* (11/01/21 1:44 PM) Invalid Interpretation Code Not Detected AH Auto Viro/Sero SS C. pneumoniae DNA GETACHEW+non-probe Ql (Nph) Not Detected *NA* (11/01/21 1:44 PM) Invalid Interpretation Code Not Detected AH Auto Viro/Sero SS EMPLOYED IN A HEALTHCARE SETTING:FIND:PT:^PAT IENT:ORD: No (11/01/21 1:44 PM) Invalid Interpretation Code AH Auto Viro/Sero SS FIRST TEST FOR CONDITION OF INTEREST:FIND:PT:^PA TIENT:ORD: No (11/01/21 1:44 PM) Invalid Interpretation Code AH Auto Viro/Sero SS FLUAV RNA GETACHEW+non-probe Ql (Nph) Not Detected *NA* (11/01/21 1:44 PM) Invalid Interpretation Code Not Detected AH Auto Viro/Sero SS FLUBV RNA GETACHEW+non-probe Ql (Nph) Not Detected *NA* (11/01/21 1:44 PM) Invalid Interpretation Code Not Detected AH Auto Viro/Sero SS HAS SYMPTOMS RELATED TO CONDITION OF INTEREST:FIND:PT:^PA TIENT:ORD: No (11/01/21 1:44 PM) Invalid Interpretation Code Auto Viro/Sero SS hMPV RNA GETACHEW+non-probe Ql (Nph) Not Detected *NA* (11/01/21 1:44 PM) Invalid Interpretation Code Not Detected Auto Viro/Sero SS Illness or injury onset date and time [id number] Invalid Interpretation Code Auto Viro/Sero SS M. pneumoniae DNA GETACHEW+non-probe Ql (Nph) Not Detected *NA* (11/01/21 1:44 PM) Invalid Interpretation Code Not Detected Auto Viro/Sero SS Parainfluenza virus 1 RNA GETACHEW+non-probe Ql (Nph) Not Detected *NA* (11/01/21 1:44 PM) Invalid Interpretation Code Not Detected Auto Viro/Sero SS Parainfluenza virus 2 RNA GETACHEW+non-probe Ql (Nph) Not Detected *NA* (11/01/21 1:44 PM) Invalid Interpretation Code Not Detected Auto Viro/Sero SS Parainfluenza virus 3 RNA GETACHEW+non-probe Ql (Nph) Not Detected *NA* (11/01/21 1:44 PM) Invalid Interpretation Code Not Detected Auto Viro/Sero SS Parainfluenza virus 4 RNA GETACHEW+non-probe Ql (Nph) Not Detected *NA* (11/01/21 1:44 PM) Invalid Interpretation Code Not Detected Auto Viro/Sero SS Patient was hospitalized because of this condition No (11/01/21 1:44 PM) Invalid Interpretation Code Auto Viro/Sero SS status Not (11/01/21 1:44 PM) Invalid Interpretation Code Auto Viro/Sero SS RESIDES IN A CONGREGATE CARE SETTING:FIND:PT:^PAT IENT:ORD: No (11/01/21 1:44 PM) Invalid Interpretation Code Auto Viro/Sero SS Rhinovirus+Enterovir us RNA GETAHCEW+non-probe Ql (Nph) Not Detected *NA* (11/01/21 1:44 PM) Invalid Interpretation Code Not Detected AH Auto Viro/Sero SS RSV RNA GETACHEW+non-probe Ql (Nph) Not Detected *NA* (11/01/21 1:44 PM) Invalid Interpretation Code Not Detected Auto Viro/Sero SS SARS-CoV-2 (COVID-19) RNA GETACHEW+probe Ql (Unsp spec) Not Detected *NA* (11/01/21 1:44 PM) Invalid Interpretation Code Not Detected AH Auto Viro/Sero SS LABORATORYOrdered By: SYSTEM SYSTEM on 11-01-2021 Basophils (Bld) [#/Vol] 0.00 103/mcL Invalid Interpretation Code 0.00 - 0.27 10^3/mcL AH Remisol SS Basophils/100 WBC (Bld) 0.6 % Invalid Interpretation Code 0.0 - 2.5 % AH Remisol SS Calcium [Mass/Vol] 8.2 mg/dL Invalid Interpretation Code 8.7 - 10.4 mg/dL AH ADM SS Chloride [Moles/Vol] 107 mmol/L Invalid Interpretation Code 98 - 110 mEq/L ADM SS CO2 [Moles/Vol] 30 mmol/L Invalid Interpretation Code 22 - 32 mEq/L AH ADM SS Creatinine [Mass/Vol] 0.63 mg/dL Invalid Interpretation Code 0.60 - 1.40 mg/dL AH ADM SS Electrolyte Balance 5.0 mEq/L Invalid Interpretation Code 4.0 - 15.0 mEq/L AH ADM SS Eosinophils (Bld) [#/Vol] 0.40 103/mcL Invalid Interpretation Code 0.00 - 0.65 10^3/mcL AH Remisol SS Eosinophils/100 WBC (Bld) 5.3 % Invalid Interpretation Code 0.0 - 6.0 % AH Remisol SS Erythrocyte distribution width (RBC) [Ratio] 14.7 % Invalid Interpretation Code 11.5 - 15.5 % AH Remisol SS GFR/1.73 sq M.predicted among blacks MDRD (S/P/Bld) [Vol rate/Area] ml/min/1.73sqm Invalid Interpretation Code AH Chemistry S GFR/1.73 sq M.predicted among non-blacks MDRD (S/P/Bld) [Vol rate/Area] ml/min/1.73sqm Invalid Interpretation Code Chemistry S Glucose [Mass/Vol] 95 mg/dL Invalid Interpretation Code 82 - 115 mg/dL AH ADM SS Hematocrit (Bld) [Volume fraction] 34.7 % Invalid Interpretation Code 40.0 - 52.0 % AH Remisol SS Hemoglobin (Bld) [Mass/Vol] 12.0 G/dL Invalid Interpretation Code 13.0 - 17.5 G/dL AH Remisol SS Lymphocytes (Bld) [#/Vol] 0.60 103/mcL Invalid Interpretation Code 0.90 - 4.32 10^3/mcL AH Remisol SS Lymphocytes/100 WBC (Bld) 7.3 % Invalid Interpretation Code 20.0 - 40.0 % AH Remisol SS MCH (RBC) [Entitic mass] 31.2 pg Invalid Interpretation Code 27.0 - 33.0 pg AH Remisol SS MCHC (RBC) [Mass/Vol] 34.4 G/dL Invalid Interpretation Code 32.0 - 36.0 G/dL AH Remisol SS MCV (RBC) [Entitic vol] 90.6 fL Invalid Interpretation Code 81.0 - 100.0 fL AH Remisol SS Monocytes (Bld) [#/Vol] 0.90 103/mcL Invalid Interpretation Code 0.09 - 1.40 10^3/mcL AH Remisol SS Monocytes/100 WBC (Bld) 10.5 % Invalid Interpretation Code 2.0 - 13.0 % AH Remisol SS Neutrophils (Bld) [#/Vol] 6.30 103/mcL Invalid Interpretation Code 2.25 - 8.10 10^3/mcL AH Remisol SS Neutrophils/100 WBC (Bld) 76.3 % Invalid Interpretation Code 50.0 - 75.0 % AH Remisol SS Platelet mean volume (Bld) [Entitic vol] 8.2 fL Invalid Interpretation Code 6.4 - 10.5 fL AH Remisol SS Platelets (Bld) [#/Vol] 226 103/mcL Invalid Interpretation Code 150 - 450 10^3/mcL AH Remisol SS Potassium [Moles/Vol] 3.8 mmol/L Invalid Interpretation Code 3.5 - 5.0 mEq/L AH ADM SS RBC (Bld) [#/Vol] 3.83 106/mcL Invalid Interpretation Code 4.50 - 6.00 10^6/mcL AH Remisol SS Sodium [Moles/Vol] 142 mmol/L Invalid Interpretation Code 136 - 145 mEq/L AH ADM SS Urea nitrogen [Mass/Vol] 15.0 mg/dL Invalid Interpretation Code 8.0 - 22.0 mg/dL ADM SS Urea nitrogen/Creatinine [Mass ratio] 23.8 ratio Invalid Interpretation Code 10.0 - 22.0 ratio ADM SS WBC (Bld) [#/Vol] 8.30 103/mcL Invalid Interpretation Code 4.50 - 10.80 10^3/mcL Remisol SS LABORATORYOrdered By: Abena Price on 11-01-2021 INR Coag (PPP) [Relative time] 4.0 {INR} Invalid Interpretation Code AH Auto Coag SS PT Coag (PPP) [Time] 48.3 s Invalid Interpretation Code 9.0 - 14.9 seconds AH Auto Coag SS PROon 11-01-2021 INR Coag (PPP) [Relative time] 4.0 {INR} Normal [facility] ([place]) Comment on above: Order Comment: order ed secondary to warfarin order Result Comment: [employer] (CHEST, 1992, 102:312S-25S)recommended therapeutic range for oral anticoagulant therapy is:LOW RISK: Prophylaxis of venous thrombosis INR: 2.0-3.0 Treatment of pulmonary embolism 2.0-3.0 Prevention of systemic embolism 2.0-3.0HIGH RISK: Mechanical prosthetic valves 2.5-3.5 Performed By: #### P RO ####[place] [address] PT Coag (PPP) [Time] 48.3 s High 9.0-14.9 [facility] ([place]) Comment on above: Order Comment: order ed secondary to warfarin order Result Comment: Effe ctive 03/03/08, Protime results may be affected by some antibiotics (i.e. Ciprofloxacin, Azithromycin, Bactrim) which may potentiate the action of oral anticoagulants, with further increase in Protime/INR. Performed By: #### P RO ####[place] [address] RESCVIDon 11-01-2021 Adenovirus Not detected Normal Not Detected [facility] ([place]) Comment on above: Performed By: #### R ESCVID ####[place] [id number] Bordetella Parapertussis Not detected Normal Not Detected [facility] ([place]) Comment on above: Performed By: #### R ESCVID ####[place] [address] Bordetella Pertussis Not detected Normal Not Detected [facility] ([place]) Comment on above: Performed By: #### R ESCVID ####[place] [address] Chlamydophila pneumoniae Not detected Normal Not Detected [facility] ([place]) Comment on above: Performed By: #### R ESCVID ####[place] [address] Coronavirus 229E (Not COVID-19) Not detected Normal Not Detected [facility] ([place]) Comment on above: Performed By: #### R ESCVID ####[place] [address] Coronavirus HKU1 (Not COVID-19) Not detected Normal Not Detected [facility] ([place]) Comment on above: Performed By: #### R ESCVID ####[place] [address] Coronavirus NL63 (Not COVID-19) Not detected Normal Not Detected [facility] ([place]) Comment on above: Performed By: #### R ESCVID ####[place] [address] Coronavirus OC43 (Not COVID-19) Not detected Normal Not Detected [facility] ([place]) Comment on above: Performed By: #### R ESCVID ####[place] [address] Date of Onset [id number] Invalid Interpretation Code [facility] ([place]) Comment on above: Performed By: #### R ESCVID ####[place] [address] Employed in Healthcare No Normal [facility] ([place]) Comment on above: Performed By: #### R ESCVID ####[place] [address] First Test No Normal [facility] ([place]) Comment on above: Performed By: #### R ESCVID ####[facility] [facility] [place] [id number] Hospitalized No Normal [facility] ([place]) Comment on above: Performed By: #### R ESCVID ####[facility] [place] [id number] Human Metapneumovirus Not detected Normal Not Detected [facility] ([place]) Comment on above: Performed By: #### R ESCVID ####[facility] [place] [address] ICU No Normal [facility] ([place]) Comment on above: Performed By: #### R ESCVID ####[facility] [place] [address] Influenza A Not detected Normal Not Detected [facility] ([place]) Comment on above: Performed By: #### R ESCVID ####[facility] [place] [address] Influenza B Not detected Normal Not Detected [facility] ([place]) Comment on above: Performed By: #### R ESCVID ####[facility] [place] [address] Mycoplasma pneumoniae Not detected Normal Not Detected [facility] ([place]) Comment on above: Performed By: #### R ESCVID ####[facility] [place] [address] Parainfluenza 1 Not detected Normal Not Detected [facility] ([place]) Comment on above: Performed By: #### R ESCVID ####[facility] [place] [address] Parainfluenza 2 Not detected Normal Not Detected [facility] ([place]) Comment on above: Performed By: #### R ESCVID ####[facility] [place] [address] Parainfluenza 3 Not detected Normal Not Detected [facility] ([place]) Comment on above: Performed By: #### R ESCVID ####[facility] [place] [address] Parainfluenza 4 Not detected Normal Not Detected [facility] ([place]) Comment on above: Performed By: #### R ESCVID ####[place] [address] Not Normal [facility] ([place]) Comment on above: Performed By: #### R ESCVID ####[place] [address] Resides in Congregate Care Setting No Normal [facility] ([place]) Comment on above: Performed By: #### R ESCVID ####[place] [address] Respiratory Syncytial Virus Not detected Normal Not Detected [facility] ([place]) Comment on above: Performed By: #### R ESCVID ####[place] [address] Rhinovirus/Enterovir us Not detected Normal Not Detected [facility] ([place]) Comment on above: Performed By: #### R ESCVID ####[place] [address] SARS-CoV-2 (COVID-19) RNA GETACHEW+probe Ql (Unsp spec) Not detected Normal Not Detected [facility] ([place]) Comment on above: Result Comment: This test is being used under the FDA EUA procedure. This assay has been validated in the [facility] for use with nasopharyngeal specimens in [facility]. If a non-validated specimen or test collection method was used, please interpret the results with caution, especially if the test result is negative.A positive test result for COVID-19 indicates that RNA from SARS-CoV-2 was detected, and the patient is infected with the virus and presumed to be contagious. Laboratory test results should always be considered in the context of clinical observations and epidemiological data in making a final diagnosis and patient management decisions. Patient management should follow current CDC guidelines. A negative test result for this test means that SARS-CoV-2 RNA was not present in the specimen above the limit of detection. However, a negative result does not rule out COVID-19 and should not be used as the sole basis for treatment or patient management decisions. A negative result does not exclude the possibility of COVID-19. When diagnostic testing is negative, the possibility of a false negative result should be considered in the context of a patient's recent exposures and the presence of clinical signs and symptoms consistent with COVID-19. The possibility of a false negative result should especially be considered if the patient?s recent exposures or clinical presentation indicate that COVID-19 is likely, and diagnostic tests for other causes of illness (e.g., other respiratory illness) are negative. If COVID-19 is still suspected based on exposure history together with other clinical findings, re-testing should be considered by healthcare providers in consultation with public health authorities. Performed By: #### R ESCVID ####[address] [address] Symptomatic as Defined by CDC No Normal [facility] ([place]) Comment on above: Performed By: #### R ESCVID ####[place] [address] .Auto Diffon 10-31-2021 Basophil, Absolute 0.00 10 3/mcL Normal 0.00-0.27 [facility] ([place]) Comment on above: Performed By: #### A JUDY, PRO, CBC, ADIFF ####[address] [address] Basophils/100 WBC (Bld) 0.4 % Normal 0.0-2.5 [facility] ([place]) Comment on above: Performed By: #### A JUDY, PRO, CBC, ADIFF ####[address] [address] Eosinophil, Absolute 0.40 10 3/mcL Normal 0.00-0.65 [facility] ([place]) Comment on above: Performed By: #### A JUDY, PRO, CBC, ADIFF ####[address] [address] Eosinophils/100 WBC (Bld) 4.2 % Normal 0.0-6.0 [facility] ([place]) Comment on above: Performed By: #### A JUDY, PRO, CBC, ADIFF ####[address] [address] Lymphocyte, Absolute 0.60 10 3/mcL Low 0.90-4.32 [facility] ([place]) Comment on above: Performed By: #### A JUDY, PRO, CBC, ADIFF ####[address] [address] Lymphocytes/100 WBC (Bld) 6.4 % Low 20.0-40.0 [facility] ([place]) Comment on above: Performed By: #### A JUDY, PRO, CBC, ADIFF ####[address] [address] Monocyte, Absolute 0.90 10 3/mcL Normal 0.09-1.40 [facility] ([place]) Comment on above: Performed By: #### A JUDY, PRO, CBC, ADIFF ####[address] [address] Monocytes/100 WBC (Bld) 10.3 % Normal 2.0-13.0 [facility] ([place]) Comment on above: Performed By: #### A JUDY, PRO, CBC, ADIFF ####[address] [address] Neutrophils/100 WBC (Bld) 78.7 % High 50.0-75.0 [facility] ([place]) Comment on above: Performed By: #### A JUDY, PRO, CBC, ADIFF ####[address] [address] .GFRon 10-31-2021 GFR Non- >60 Normal [facility] ([place]) Comment on above: Result Comment: GFR Population mean for , Non- Americans Ages 20-29 = 116 mL/min/1.73 sq.m. Ages 30-39 = 107 mL/min/1.73 sq.m. Ages 40-49 = 99 mL/min/1.73 sq.m. Ages 50-59 = 93 mL/min/1.73 sq.m. Ages 60-69 = 85 mL/min/1.73 sq.m. Ages 70+ = 75 mL/min/1.73 sq.m.Chronic Kidney Disease: Less than 60 mL/min/1.73 square metersEnd Stage Renal Disease: Less than 15 mL/min/1.73 square meters Performed By: #### G FR, MG, BMP ####[address] [address] GFR >60 Normal [facility] ([place]) Comment on above: Result Comment: GFR Population mean for , Non- Americans Ages 20-29 = 116 mL/min/1.73 sq.m. Ages 30-39 = 107 mL/min/1.73 sq.m. Ages 40-49 = 99 mL/min/1.73 sq.m. Ages 50-59 = 93 mL/min/1.73 sq.m. Ages 60-69 = 85 mL/min/1.73 sq.m. Ages 70+ = 75 mL/min/1.73 sq.m.Chronic Kidney Disease: Less than 60 mL/min/1.73 square metersEnd Stage Renal Disease: Less than 15 mL/min/1.73 square meters Performed By: #### G FR, MG, BMP ####[place] [address] .NEUABSon 10-31-2021 Neutrophil, Absolute 7.00 10 3/mcL Normal 2.25-8.10 [facility] ([place]) Comment on above: Performed By: #### A JUDY, PRO, CBC, ADIFF ####[place] [address] APTTon 10-31-2021 aPTT Coag (Bld) [Time] 77.0 s High 25.0-35.0 [facility] ([place]) Comment on above: Result Comment: For Heparin anticoagulation therapy, the recommendedtherapeutic range is: 54-77 seconds (APTT Correlationwith Anti-Xa therapeutic range of 0.3-0.7 units/ml).PLEASE REFERENCE THE PHARMACY PROTOCOL FOR DOSING. Performed By: #### A PTT ####[place] [address] Heparin dose (APTT) Heparin IV Normal [facility] ([place]) Comment on above: Performed By: #### A PTT ####[place] [address] aPTT Coag (Bld) [Time] 168.6 s Critically abnormal 25.0-35.0 [facility] ([place]) Comment on above: Result Comment: For Heparin anticoagulation therapy, the recommendedtherapeutic range is: 54-77 seconds (APTT Correlationwith Anti-Xa therapeutic range of 0.3-0.7 units/ml).PLEASE REFERENCE THE PHARMACY PROTOCOL FOR DOSING. Performed By: #### A PTT ####[address] [address] Heparin dose (APTT) Heparin IV Normal [facility] ([place]) Comment on above: Performed By: #### A PTT ####[address] [address] aPTT Coag (Bld) [Time] s Critically abnormal 25.0-35.0 [facility] ([place]) Comment on above: Result Comment: For Heparin anticoagulation therapy, the recommendedtherapeutic range is: 54-77 seconds (APTT Correlationwith Anti-Xa therapeutic range of 0.3-0.7 units/ml).PLEASE REFERENCE THE PHARMACY PROTOCOL FOR DOSING. Performed By: #### A PTT ####[place] [address] Heparin dose (APTT) Heparin IV Normal [facility] ([place]) Comment on above: Performed By: #### A PTT ####[place] [address] BMPon 10-31-2021 BUN/Creatinine Ratio 29.3 ratio High 10.0-22.0 [facility] ([place]) Comment on above: Performed By: #### G FR, MG, BMP ####[address] [address] Calcium [Mass/Vol] 8.0 mg/dL Low 8.7-10.4 [facility] ([place]) Comment on above: Result Comment: No te - New Reference Range in effect 20 Performed By: #### G FR, MG, BMP ####[address] [address] Chloride [Moles/Vol] 104 mmol/L Normal 98-110 [facility] ([place]) Comment on above: Performed By: #### G FR, MG, BMP ####[address] [address] CO2 [Moles/Vol] 31 mmol/L Normal 22-32 [facility] ([place]) Comment on above: Performed By: #### G FR, MG, BMP ####[address] [address] Creatinine [Mass/Vol] 0.75 mg/dL Normal 0.60-1.40 [facility] ([place]) Comment on above: Performed By: #### G FR, MG, BMP ####[place] [address] Electrolyte Balance 8.0 mEq/L Normal 4.0-15.0 [facility] ([place]) Comment on above: Performed By: #### G FR, MG, BMP ####[place] [address] Glucose [Mass/Vol] 88 mg/dL Normal 82-115 [facility] ([place]) Comment on above: Performed By: #### Ashley FR, MG, BMP ####[place] [address] Potassium [Moles/Vol] 3.4 mmol/L Low 3.5-5.0 [facility] ([place]) Comment on above: Result Comment: Spec imen slightly hemolyzed. Performed By: #### G FR, MG, BMP ####[place] [address] Sodium [Moles/Vol] 143 mmol/L Normal 136-145 [facility] ([place]) Comment on above: Performed By: #### G FR, MG, BMP ####[address] [address] Urea nitrogen [Mass/Vol] 22.0 mg/dL Normal 8.0-22.0 [facility] ([place]) Comment on above: Performed By: #### G FR, MG, BMP ####[place] [address] CBCon 10-31-2021 Erythrocyte distribution width (RBC) [Ratio] 14.2 % Normal 11.5-15.5 [facility] ([place]) Comment on above: Performed By: #### A JUDY, PRO, CBC, ADIFF ####[address] [address] Hematocrit (Bld) [Volume fraction] 32.1 % Low 40.0-52.0 [facility] ([place]) Comment on above: Performed By: #### A JUDY, PRO, CBC, ADIFF ####[place] [address] Hgb 10.9 G/dL Low 13.0-17.5 [facility] ([place]) Comment on above: Performed By: #### A JUDY, PRO, CBC, ADIFF ####[address] [address] MCH (RBC) [Entitic mass] 31.0 pg Normal 27.0-33.0 [facility] ([place]) Comment on above: Performed By: #### A JUDY, PRO, CBC, ADIFF ####[place] [address] MCHC 34.1 G/dL Normal 32.0-36.0 [facility] ([place]) Comment on above: Performed By: #### A JUDY, PRO, CBC, ADIFF ####[place] [address] MCV (RBC) [Entitic vol] 90.8 fL Normal 81.0-100.0 [facility] ([place]) Comment on above: Performed By: #### A JUDY, PRO, CBC, ADIFF ####[place] [address] Platelet 182 10 3/mcL Normal 150-450 [facility] ([place]) Comment on above: Performed By: #### A JUDY, PRO, CBC, ADIFF ####[place] [address] Platelet mean volume (Bld) [Entitic vol] 8.7 fL Normal 6.4-10.5 [facility] ([place]) Comment on above: Performed By: #### A JUDY, PRO, CBC, ADIFF ####[place] [address] RBC 3.53 10 6/mcL Low 4.50-6.00 [facility] ([place]) Comment on above: Performed By: #### A JUDY, PRO, CBC, ADIFF ####[place] [id number] [place] [address] WBC 8.90 10 3/mcL Normal 4.50-10.80 [facility] ([place]) Comment on above: Performed By: #### A JUDY, PRO, CBC, ADIFF ####[place] [id number] [place] [address] IR CHOLECYSTOTOMY TUBE INJEC TION W/GUIDEon 10-31-2021 IR CHOLECYSTOTOMY TUBE INJECTION W/GUIDE Normal [facility] ([place]) LABORATORYOrdered By: Adonay Zazueta on 10-31-2021 aPTT Coag (PPP) [Time] 77.0 s Invalid Interpretation Code 25.0 - 35.0 seconds AH Auto Coag SS Heparin dose (APTT) Heparin IV (10/31/21 10:28 AM) Invalid Interpretation Code AH Auto Coag SS aPTT Coag (PPP) [Time] 168.6 s Invalid Interpretation Code 25.0 - 35.0 seconds AH Auto Coag SS Heparin dose (APTT) Heparin IV (10/31/21 9:40 AM) Invalid Interpretation Code AH Auto Coag SS LABORATORYOrdered By: Renea Lovell on 10-31-2021 aPTT Coag (PPP) [Time] seconds 1 Invalid Interpretation Code 25.0 - 35.0 seconds AH Auto Coag SS Heparin dose (APTT) Heparin IV (10/31/21 4:04 AM) Invalid Interpretation Code AH Auto Coag SS INR Coag (PPP) [Relative time] 2.4 {INR} Invalid Interpretation Code AH Auto Coag SS PT Coag (PPP) [Time] 28.5 s Invalid Interpretation Code 9.0 - 14.9 seconds AH Auto Coag SS LABORATORYOrdered By: SYSTEM SYSTEM on 10-31-2021 Basophils (Bld) [#/Vol] 0.00 103/mcL Invalid Interpretation Code 0.00 - 0.27 10^3/mcL AH Remisol SS Basophils/100 WBC (Bld) 0.4 % Invalid Interpretation Code 0.0 - 2.5 % AH Remisol SS Calcium [Mass/Vol] 8.0 mg/dL Invalid Interpretation Code 8.7 - 10.4 mg/dL AH ADM SS Chloride [Moles/Vol] 104 mmol/L Invalid Interpretation Code 98 - 110 mEq/L ADM SS CO2 [Moles/Vol] 31 mmol/L Invalid Interpretation Code 22 - 32 mEq/L AH ADM SS Creatinine [Mass/Vol] 0.75 mg/dL Invalid Interpretation Code 0.60 - 1.40 mg/dL AH ADM SS Electrolyte Balance 8.0 mEq/L Invalid Interpretation Code 4.0 - 15.0 mEq/L AH ADM SS Eosinophils (Bld) [#/Vol] 0.40 103/mcL Invalid Interpretation Code 0.00 - 0.65 10^3/mcL AH Remisol SS Eosinophils/100 WBC (Bld) 4.2 % Invalid Interpretation Code 0.0 - 6.0 % AH Remisol SS Erythrocyte distribution width (RBC) [Ratio] 14.2 % Invalid Interpretation Code 11.5 - 15.5 % AH Remisol SS GFR/1.73 sq M.predicted among blacks MDRD (S/P/Bld) [Vol rate/Area] ml/min/1.73sqm Invalid Interpretation Code Chemistry S GFR/1.73 sq M.predicted among non-blacks MDRD (S/P/Bld) [Vol rate/Area] ml/min/1.73sqm Invalid Interpretation Code Chemistry S Glucose [Mass/Vol] 88 mg/dL Invalid Interpretation Code 82 - 115 mg/dL ADM SS Hematocrit (Bld) [Volume fraction] 32.1 % Invalid Interpretation Code 40.0 - 52.0 % AH Remisol SS Hemoglobin (Bld) [Mass/Vol] 10.9 G/dL Invalid Interpretation Code 13.0 - 17.5 G/dL AH Remisol SS Lymphocytes (Bld) [#/Vol] 0.60 103/mcL Invalid Interpretation Code 0.90 - 4.32 10^3/mcL Remisol SS Lymphocytes/100 WBC (Bld) 6.4 % Invalid Interpretation Code 20.0 - 40.0 % AH Remisol SS Magnesium [Mass/Vol] 1.7 mg/dL Invalid Interpretation Code 1.6 - 2.4 mg/dL AH ADM SS MCH (RBC) [Entitic mass] 31.0 pg Invalid Interpretation Code 27.0 - 33.0 pg AH Remisol SS MCHC (RBC) [Mass/Vol] 34.1 G/dL Invalid Interpretation Code 32.0 - 36.0 G/dL AH Remisol SS MCV (RBC) [Entitic vol] 90.8 fL Invalid Interpretation Code 81.0 - 100.0 fL AH Remisol SS Monocytes (Bld) [#/Vol] 0.90 103/mcL Invalid Interpretation Code 0.09 - 1.40 10^3/mcL AH Remisol SS Monocytes/100 WBC (Bld) 10.3 % Invalid Interpretation Code 2.0 - 13.0 % AH Remisol SS Neutrophils (Bld) [#/Vol] 7.00 103/mcL Invalid Interpretation Code 2.25 - 8.10 10^3/mcL AH Remisol SS Neutrophils/100 WBC (Bld) 78.7 % Invalid Interpretation Code 50.0 - 75.0 % AH Remisol SS Platelet mean volume (Bld) [Entitic vol] 8.7 fL Invalid Interpretation Code 6.4 - 10.5 fL AH Remisol SS Platelets (Bld) [#/Vol] 182 103/mcL Invalid Interpretation Code 150 - 450 10^3/mcL AH Remisol SS Potassium [Moles/Vol] 3.4 mmol/L Invalid Interpretation Code 3.5 - 5.0 mEq/L AH ADM SS Comment on above: Result Comment: Spec imen slightly hemolyzed. RBC (Bld) [#/Vol] 3.53 106/mcL Invalid Interpretation Code 4.50 - 6.00 10^6/mcL AH Remisol SS Sodium [Moles/Vol] 143 mmol/L Invalid Interpretation Code 136 - 145 mEq/L AH ADM SS Urea nitrogen [Mass/Vol] 22.0 mg/dL Invalid Interpretation Code 8.0 - 22.0 mg/dL AH ADM SS Urea nitrogen/Creatinine [Mass ratio] 29.3 ratio Invalid Interpretation Code 10.0 - 22.0 ratio AH ADM SS WBC (Bld) [#/Vol] 8.90 103/mcL Invalid Interpretation Code 4.50 - 10.80 10^3/mcL AH Remisol SS MGon 10-31-2021 Magnesium [Mass/Vol] 1.7 mg/dL Normal 1.6-2.4 [facility] ([place]) Comment on above: Performed By: #### G FR, MG, BMP ####[place] [address] PROon 10-31-2021 INR Coag (PPP) [Relative time] 2.4 {INR} Normal [facility] ([place]) Comment on above: Order Comment: order ed secondary to warfarin order Result Comment: [employer] (CHEST, 1991, [id number])recommended therapeutic range for oral anticoagulant therapy is:LOW RISK: Prophylaxis of venous thrombosis INR: 2.0-3.0 Treatment of pulmonary embolism 2.0-3.0 Prevention of systemic embolism 2.0-3.0HIGH RISK: Mechanical prosthetic valves 2.5-3.5 Performed By: #### A JUDY, PRO, CBC, ADIFF ####[place] [address] PT Coag (PPP) [Time] 28.5 s High 9.0-14.9 [facility] ([place]) Comment on above: Order Comment: order ed secondary to warfarin order Result Comment: Effe ctive 03/03/08, Protime results may be affected by some antibiotics (i.e. Ciprofloxacin, Azithromycin, Bactrim) which may potentiate the action of oral anticoagulants, with further increases in Protime/INR. Performed By: #### A JUDY, PRO, CBC, ADIFF ####[place] [address] .Auto Diffon 10-30-2021 Basophil, Absolute 0.00 10 3/mcL Normal 0.00-0.27 [facility] ([place]) Comment on above: Performed By: #### A DIFF, APTT, ANEU, CBC, PRO ####[place] [address] Basophils/100 WBC (Bld) 0.1 % Normal 0.0-2.5 [facility] ([place]) Comment on above: Performed By: #### A DIFF, APTT, ANEU, CBC, PRO ####[place] [address] Eosinophil, Absolute 0.30 10 3/mcL Normal 0.00-0.65 [facility] ([place]) Comment on above: Performed By: #### A DIFF, APTT, ANEU, CBC, PRO ####[address] [address] Eosinophils/100 WBC (Bld) 2.3 % Normal 0.0-6.0 [facility] ([place]) Comment on above: Performed By: #### A DIFF, APTT, ANEU, CBC, PRO ####[address] [address] Lymphocyte, Absolute 0.50 10 3/mcL Low 0.90-4.32 [facility] ([place]) Comment on above: Performed By: #### A DIFF, APTT, ANEU, CBC, PRO ####[address] [address] Lymphocytes/100 WBC (Bld) 4.6 % Low 20.0-40.0 [facility] ([place]) Comment on above: Performed By: #### A DIFF, APTT, ANEU, CBC, PRO ####[address] [address] Monocyte, Absolute 1.00 10 3/mcL Normal 0.09-1.40 [facility] ([place]) Comment on above: Performed By: #### A DIFF, APTT, ANEU, CBC, PRO ####[address] [address] Monocytes/100 WBC (Bld) 9.1 % Normal 2.0-13.0 [facility] ([place]) Comment on above: Performed By: #### A DIFF, APTT, ANEU, CBC, PRO ####[address] [address] Neutrophils/100 WBC (Bld) 83.9 % High 50.0-75.0 [facility] ([place]) Comment on above: Performed By: #### A DIFF, APTT, ANEU, CBC, PRO ####[address] [address] Basophil, Absolute 0.00 10 3/mcL Normal 0.00-0.27 [facility] ([place]) Comment on above: Performed By: #### G FR, CBC, CMP, ADIFF, ANEU, MG, PRO ####[address] [address] Basophils/100 WBC (Bld) 0.4 % Normal 0.0-2.5 [facility] ([place]) Comment on above: Performed By: #### G FR, CBC, CMP, ADIFF, ANEU, MG, PRO ####[address] [address] Eosinophil, Absolute 0.20 10 3/mcL Normal 0.00-0.65 [facility] ([place]) Comment on above: Performed By: #### G FR, CBC, CMP, ADIFF, ANEU, MG, PRO ####[address] [address] Eosinophils/100 WBC (Bld) 1.3 % Normal 0.0-6.0 [facility] ([place]) Comment on above: Performed By: #### G FR, CBC, CMP, ADIFF, ANEU, MG, PRO ####[address] [address] Lymphocyte, Absolute 0.60 10 3/mcL Low 0.90-4.32 [facility] ([place]) Comment on above: Performed By: #### G FR, CBC, CMP, ADIFF, ANEU, MG, PRO ####[address] [address] Lymphocytes/100 WBC (Bld) 4.8 % Low 20.0-40.0 [facility] ([place]) Comment on above: Performed By: #### G FR, CBC, CMP, ADIFF, ANEU, MG, PRO ####[address] [address] Monocyte, Absolute 1.10 10 3/mcL Normal 0.09-1.40 [facility] ([place]) Comment on above: Performed By: #### G FR, CBC, CMP, ADIFF, ANEU, MG, PRO ####[address] [address] Monocytes/100 WBC (Bld) 9.3 % Normal 2.0-13.0 [facility] ([place]) Comment on above: Performed By: #### G FR, CBC, CMP, ADIFF, ANEU, MG, PRO ####[address] [address] Neutrophils/100 WBC (Bld) 84.2 % High 50.0-75.0 [facility] ([place]) Comment on above: Performed By: #### G FR, CBC, CMP, ADIFF, ANEU, MG, PRO ####[place] [id number] [place] [address] .GFRon 10-30-2021 GFR >60 Normal [facility] ([place]) Comment on above: Result Comment: GFR Population mean for , Non- Americans Ages 20-29 = 116 mL/min/1.73 sq.m. Ages 30-39 = 107 mL/min/1.73 sq.m. Ages 40-49 = 99 mL/min/1.73 sq.m. Ages 50-59 = 93 mL/min/1.73 sq.m. Ages 60-69 = 85 mL/min/1.73 sq.m. Ages 70+ = 75 mL/min/1.73 sq.m.Chronic Kidney Disease: Less than 60 mL/min/1.73 square metersEnd Stage Renal Disease: Less than 15 mL/min/1.73 square meters Performed By: #### G FR, CBC, CMP, ADIFF, ANEU, MG, PRO ####[address] [address] GFR Non- >60 Normal [facility] ([place]) Comment on above: Result Comment: GFR Population mean for , Non- Americans Ages 20-29 = 116 mL/min/1.73 sq.m. Ages 30-39 = 107 mL/min/1.73 sq.m. Ages 40-49 = 99 mL/min/1.73 sq.m. Ages 50-59 = 93 mL/min/1.73 sq.m. Ages 60-69 = 85 mL/min/1.73 sq.m. Ages 70+ = 75 mL/min/1.73 sq.m.Chronic Kidney Disease: Less than 60 mL/min/1.73 square metersEnd Stage Renal Disease: Less than 15 mL/min/1.73 square meters Performed By: #### G FR, CBC, CMP, ADIFF, ANEU, MG, PRO ####[place] [id number] [place] [id number] .NEUABSon 10-30-2021 Neutrophil, Absolute 9.50 10 3/mcL High 2.25-8.10 [facility] ([place]) Comment on above: Performed By: #### A DIFF, APTT, ANEU, CBC, PRO ####[place] [address] Neutrophil, Absolute 9.90 10 3/mcL High 2.25-8.10 [facility] ([place]) Comment on above: Performed By: #### G FR, CBC, CMP, ADIFF, ANEU, MG, PRO ####[place] [address] APTTon 10-30-2021 aPTT Coag (Bld) [Time] 62.5 s High 25.0-35.0 [facility] ([place]) Comment on above: Result Comment: For Heparin anticoagulation therapy, the recommendedtherapeutic range is: 54-77 seconds (APTT Correlationwith Anti-Xa therapeutic range of 0.3-0.7 units/ml).PLEASE REFERENCE THE PHARMACY PROTOCOL FOR DOSING. Performed By: #### A DIFF, APTT, ANEU, CBC, PRO ####[place] [address] Heparin dose (APTT) Heparin IV Normal [facility] ([place]) Comment on above: Performed By: #### A DIFF, APTT, ANEU, CBC, PRO ####[place] [address] CBCon 10-30-2021 Erythrocyte distribution width (RBC) [Ratio] 14.7 % Normal 11.5-15.5 [facility] ([place]) Comment on above: Performed By: #### A DIFF, APTT, ANEU, CBC, PRO ####[place] [address] Hematocrit (Bld) [Volume fraction] 33.3 % Low 40.0-52.0 [facility] ([place]) Comment on above: Performed By: #### A DIFF, APTT, ANEU, CBC, PRO ####[place] [address] Hgb 11.3 G/dL Low 13.0-17.5 [facility] ([place]) Comment on above: Performed By: #### A DIFF, APTT, ANEU, CBC, PRO ####[place] [address] MCH (RBC) [Entitic mass] 31.3 pg Normal 27.0-33.0 [facility] ([place]) Comment on above: Performed By: #### A DIFF, APTT, ANEU, CBC, PRO ####[place] [address] MCHC 34.0 G/dL Normal 32.0-36.0 [facility] ([place]) Comment on above: Performed By: #### A DIFF, APTT, ANEU, CBC, PRO ####[place] [address] MCV (RBC) [Entitic vol] 92.0 fL Normal 81.0-100.0 [facility] ([place]) Comment on above: Performed By: #### A DIFF, APTT, ANEU, CBC, PRO ####[place] [address] Platelet 175 10 3/mcL Normal 150-450 [facility] ([place]) Comment on above: Performed By: #### A DIFF, APTT, ANEU, CBC, PRO ####[place] [address] Platelet mean volume (Bld) [Entitic vol] 9.3 fL Normal 6.4-10.5 [facility] ([place]) Comment on above: Performed By: #### A DIFF, APTT, ANEU, CBC, PRO ####[place] [address] RBC 3.63 10 6/mcL Low 4.50-6.00 [facility] ([place]) Comment on above: Performed By: #### A DIFF, APTT, ANEU, CBC, PRO ####[place] [address] WBC 11.30 10 3/mcL High 4.50-10.80 [facility] ([place]) Comment on above: Performed By: #### A DIFF, APTT, ANEU, CBC, PRO ####[place] [address] Erythrocyte distribution width (RBC) [Ratio] 14.8 % Normal 11.5-15.5 [facility] ([place]) Comment on above: Performed By: #### G FR, CBC, CMP, ADIFF, ANEU, MG, PRO ####[place] [address] Hematocrit (Bld) [Volume fraction] 32.7 % Low 40.0-52.0 [facility] ([place]) Comment on above: Performed By: #### G FR, CBC, CMP, ADIFF, ANEU, MG, PRO ####[place] [address] Hgb 11.1 G/dL Low 13.0-17.5 [facility] ([place]) Comment on above: Performed By: #### G FR, CBC, CMP, ADIFF, ANEU, MG, PRO ####[place] [address] MCH (RBC) [Entitic mass] 30.8 pg Normal 27.0-33.0 [facility] ([place]) Comment on above: Performed By: #### G FR, CBC, CMP, ADIFF, ANEU, MG, PRO ####[place] [address] MCHC 33.9 G/dL Normal 32.0-36.0 [facility] ([place]) Comment on above: Performed By: #### G FR, CBC, CMP, ADIFF, ANEU, MG, PRO ####[place] [address] MCV (RBC) [Entitic vol] 90.9 fL Normal 81.0-100.0 [facility] ([place]) Comment on above: Performed By: #### G FR, CBC, CMP, ADIFF, ANEU, MG, PRO ####[place] [address] Platelet 171 10 3/mcL Normal 150-450 [facility] ([place]) Comment on above: Performed By: #### G FR, CBC, CMP, ADIFF, ANEU, MG, PRO ####[address] [address] Platelet mean volume (Bld) [Entitic vol] 9.1 fL Normal 6.4-10.5 [facility] ([place]) Comment on above: Performed By: #### G FR, CBC, CMP, ADIFF, ANEU, MG, PRO ####[place] [address] RBC 3.60 10 6/mcL Low 4.50-6.00 [facility] ([place]) Comment on above: Performed By: #### G FR, CBC, CMP, ADIFF, ANEU, MG, PRO ####[place] [address] WBC 11.70 10 3/mcL High 4.50-10.80 [facility] ([place]) Comment on above: Performed By: #### G FR, CBC, CMP, ADIFF, ANEU, MG, PRO ####[place] [address] CMPon 10-30-2021 Albumin Level 1.5 G/dL Low 3.2-4.8 [facility] ([place]) Comment on above: Performed By: #### G FR, CBC, CMP, ADIFF, ANEU, MG, PRO ####[place] [address] Albumin/Globulin [Mass ratio] 0.5 {ratio} Low 0.9-1.6 [facility] ([place]) Comment on above: Performed By: #### G FR, CBC, CMP, ADIFF, ANEU, MG, PRO ####[place] [address] ALP [Catalytic activity/Vol] 132 U/L High 38-126 [facility] ([place]) Comment on above: Performed By: #### G FR, CBC, CMP, ADIFF, ANEU, MG, PRO ####[place] [address] ALT/SGPT <8 Low 12-55 [facility] ([place]) Comment on above: Performed By: #### G FR, CBC, CMP, ADIFF, ANEU, MG, PRO ####[address] [address] AST [Catalytic activity/Vol] 26 U/L Normal 8-34 [facility] ([place]) Comment on above: Performed By: #### G FR, CBC, CMP, ADIFF, ANEU, MG, PRO ####[address] [address] Bili Total 0.90 mg/dL Normal 0.20-1.20 [facility] ([place]) Comment on above: Result Comment: Use of this assay is not recommended for patients undergoing treatment with eltrombopag due to the potential for falsely elevated results. Performed By: #### G FR, CBC, CMP, ADIFF, ANEU, MG, PRO ####[place] [address] BUN/Creatinine Ratio 27.6 ratio High 10.0-22.0 [facility] ([place]) Comment on above: Performed By: #### G FR, CBC, CMP, ADIFF, ANEU, MG, PRO ####[address] [address] Calcium [Mass/Vol] 7.9 mg/dL Low 8.7-10.4 [facility] ([place]) Comment on above: Result Comment: No te - New Reference Range in effect 20 Performed By: #### G FR, CBC, CMP, ADIFF, ANEU, MG, PRO ####[address] [address] Chloride [Moles/Vol] 102 mmol/L Normal 98-110 [facility] ([place]) Comment on above: Performed By: #### G FR, CBC, CMP, ADIFF, ANEU, MG, PRO ####[address] [address] CO2 [Moles/Vol] 31 mmol/L Normal 22-32 [facility] ([place]) Comment on above: Performed By: #### G FR, CBC, CMP, ADIFF, ANEU, MG, PRO ####[address] [address] Creatinine [Mass/Vol] 0.87 mg/dL Normal 0.60-1.40 [facility] ([place]) Comment on above: Performed By: #### G FR, CBC, CMP, ADIFF, ANEU, MG, PRO ####[address] [address] Electrolyte Balance 10.0 mEq/L Normal 4.0-15.0 [facility] ([place]) Comment on above: Performed By: #### G FR, CBC, CMP, ADIFF, ANEU, MG, PRO ####[address] [address] Globulin 3.2 G/dL Normal 1.5-3.8 [facility] ([place]) Comment on above: Performed By: #### G FR, CBC, CMP, ADIFF, ANEU, MG, PRO ####[address] [address] Glucose [Mass/Vol] 105 mg/dL Normal 82-115 [facility] ([place]) Comment on above: Performed By: #### G FR, CBC, CMP, ADIFF, ANEU, MG, PRO ####[address] [address] Potassium [Moles/Vol] 3.5 mmol/L Normal 3.5-5.0 [facility] ([place]) Comment on above: Performed By: #### G FR, CBC, CMP, ADIFF, ANEU, MG, PRO ####[address] [address] Sodium [Moles/Vol] 143 mmol/L Normal 136-145 [facility] ([place]) Comment on above: Performed By: #### G FR, CBC, CMP, ADIFF, ANEU, MG, PRO ####[address] [address] Total Protein 4.7 G/dL Low 5.7-8.2 [facility] ([place]) Comment on above: Result Comment: No te - New Reference Range in effect 20 Performed By: #### G FR, CBC, CMP, ADIFF, ANEU, MG, PRO ####[place] [id number] [place] [address] Urea nitrogen [Mass/Vol] 24.0 mg/dL High 8.0-22.0 [facility] ([place]) Comment on above: Performed By: #### G FR, CBC, CMP, ADIFF, ANEU, MG, PRO ####[place] [id number] [place] [id number] LABORATORYOrdered By: Dilcia Aviles on 10-30-2021 Acinetobacter baumannii Not Detected *NA* (10/30/21 2:46 PM) Invalid Interpretation Code Not Detected AH Auto Microbiology GL SS BCID Comment See Comment (10/30/21 2:46 PM) Invalid Interpretation Code AH Auto Microbiology GL SS Adeline albicans Not Detected *NA* (10/30/21 2:46 PM) Invalid Interpretation Code Not Detected AH Auto Microbiology GL SS Adeline glabrata Not Detected *NA* (10/30/21 2:46 PM) Invalid Interpretation Code Not Detected AH Auto Microbiology GL SS Adeline krusei Not Detected *NA* (10/30/21 2:46 PM) Invalid Interpretation Code Not Detected AH Auto Microbiology GL SS Adeline parapsilosis Not Detected *NA* (10/30/21 2:46 PM) Invalid Interpretation Code Not Detected AH Auto Microbiology GL SS Adeline tropicalis Not Detected *NA* (10/30/21 2:46 PM) Invalid Interpretation Code Not Detected AH Auto Microbiology GL SS E. Coli Not Detected *NA* (10/30/21 2:46 PM) Invalid Interpretation Code Not Detected AH Auto Microbiology GL SS Enterobacter cloacae Complex Not Detected *NA* (10/30/21 2:46 PM) Invalid Interpretation Code Not Detected AH Auto Microbiology GL SS Enterobacteriaceae Not Detected *NA* (10/30/21 2:46 PM) Invalid Interpretation Code Not Detected AH Auto Microbiology GL SS Enterococcus Not Detected *NA* (10/30/21 2:46 PM) Invalid Interpretation Code Not Detected AH Auto Microbiology GL SS Haemophilus influenzae Not Detected *NA* (10/30/21 2:46 PM) Invalid Interpretation Code Not Detected AH Auto Microbiology GL SS Klebsiella oxytoca Not Detected *NA* (10/30/21 2:46 PM) Invalid Interpretation Code Not Detected AH Auto Microbiology GL SS Klebsiella pneumoniae Not Detected *NA* (10/30/21 2:46 PM) Invalid Interpretation Code Not Detected AH Auto Microbiology GL SS Listeria monocytogenes Not Detected *NA* (10/30/21 2:46 PM) Invalid Interpretation Code Not Detected AH Auto Microbiology GL SS Neisseria meningitidis Not Detected *NA* (10/30/21 2:46 PM) Invalid Interpretation Code Not Detected AH Auto Microbiology GL SS Proteus Not Detected *NA* (10/30/21 2:46 PM) Invalid Interpretation Code Not Detected AH Auto Microbiology GL SS Pseudomonas aeruginosa Not Detected *NA* (10/30/21 2:46 PM) Invalid Interpretation Code Not Detected AH Auto Microbiology GL SS S. agalactiae Org specific cx Ql (Vag fld) Not Detected *NA* (10/30/21 2:46 PM) Invalid Interpretation Code Not Detected AH Auto Microbiology GL SS Serratia marcescens Not Detected *NA* (10/30/21 2:46 PM) Invalid Interpretation Code Not Detected AH Auto Microbiology GL SS Staphylococcus Not Detected *NA* (10/30/21 2:46 PM) Invalid Interpretation Code Not Detected AH Auto Microbiology GL SS Staphylococcus aureus Not Detected *NA* (10/30/21 2:46 PM) Invalid Interpretation Code Not Detected AH Auto Microbiology GL SS Streptococcus Not Detected *NA* (10/30/21 2:46 PM) Invalid Interpretation Code Not Detected AH Auto Microbiology GL SS Streptococcus pneumoniae Not Detected *NA* (10/30/21 2:46 PM) Invalid Interpretation Code Not Detected AH Auto Microbiology GL SS Streptococcus pyogenes Not Detected *NA* (10/30/21 2:46 PM) Invalid Interpretation Code Not Detected AH Auto Microbiology GL SS LABORATORYOrdered By: SYSTEM SYSTEM on 10-30-2021 Albumin BCP dye [Mass/Vol] 1.5 G/dL Invalid Interpretation Code 3.2 - 4.8 G/dL AH ADM SS Albumin/Globulin [Mass ratio] 0.5 {ratio} Invalid Interpretation Code 0.9 - 1.6 ratio AH ADM SS ALP [Catalytic activity/Vol] 132 U/L Invalid Interpretation Code 38 - 126 U/L AH ADM SS ALT No additional P-5'-P [Catalytic activity/Vol] U/L 1 Invalid Interpretation Code 12 - 55 U/L AH ADM SS AST [Catalytic activity/Vol] 26 U/L Invalid Interpretation Code 8 - 34 U/L AH ADM SS Bilirubin [Mass/Vol] 0.90 mg/dL Invalid Interpretation Code 0.20 - 1.20 mg/dL AH ADM SS Globulin 3.2 G/dL Invalid Interpretation Code 1.5 - 3.8 G/dL AH ADM SS Magnesium [Mass/Vol] 1.7 mg/dL Invalid Interpretation Code 1.6 - 2.4 mg/dL AH ADM SS Protein [Mass/Vol] 4.7 G/dL Invalid Interpretation Code 5.7 - 8.2 G/dL AH ADM SS MGon 10-30-2021 Magnesium [Mass/Vol] 1.7 mg/dL Normal 1.6-2.4 [facility] ([place]) Comment on above: Performed By: #### G FR, CBC, CMP, ADIFF, ANEU, MG, PRO ####[place] [id number] [place] [id number] No Panel Informationon 10-30 GSANA Gram Positive [facility] Microscopic examination of blood, culture Culture has been received in lab and is no growth to date. Routine cultures are held for 5 days. [facility] Microscopic examination of blood, culture Culture has been received in lab and is no growth to date. Routine cultures are held for 5 days. [facility] PROon 10-30-2021 INR Coag (PPP) [Relative time] 1.9 {INR} Normal [facility] ([place]) Comment on above: Result Comment: [employer] (CHEST, 1991, 102:312S-25S)recommended therapeutic range for oral anticoagulant therapy is:LOW RISK: Prophylaxis of venous thrombosis INR: 2.0-3.0 Treatment of pulmonary embolism 2.0-3.0 Prevention of systemic embolism 2.0-3.0HIGH RISK: Mechanical prosthetic valves 2.5-3.5 Performed By: #### A DIFF, APTT, ANEU, CBC, PRO ####[place] [id number] [place] [address] PT Coag (PPP) [Time] 23.2 s High 9.0-14.9 [facility] ([place]) Comment on above: Result Comment: Effe ctive 03/03/08, Protime results may be affected by some antibiotics (i.e. Ciprofloxacin, Azithromycin, Bactrim) which may potentiate the action of oral anticoagulants, with further increase in Protime/INR. Performed By: #### A DIFF, APTT, ANEU, CBC, PRO ####[address] [address] INR Coag (PPP) [Relative time] 1.8 {INR} Normal [facility] ([place]) Comment on above: Result Comment: [employer] (CHEST, 1991, 102:[id number])recommended therapeutic range for oral anticoagulant therapy is:LOW RISK: Prophylaxis of venous thrombosis INR: 2.0-3.0 Treatment of pulmonary embolism 2.0-3.0 Prevention of systemic embolism 2.0-3.0HIGH RISK: Mechanical prosthetic valves 2.5-3.5 Performed By: #### G FR, CBC, CMP, ADIFF, ANEU, MG, PRO ####[place] [address] PT Coag (PPP) [Time] 21.4 s High 9.0-14.9 [facility] ([place]) Comment on above: Result Comment: Effe ctive 03/03/08, Protime results may be affected by some antibiotics (i.e. Ciprofloxacin, Azithromycin, Bactrim) which may potentiate the action of oral anticoagulants, with further increases in Protime/INR. Performed By: #### G FR, CBC, CMP, ADIFF, ANEU, MG, PRO ####[place] [address] .Auto Diffon 10-29-2021 Basophil, Absolute 0.00 10 3/mcL Normal 0.00-0.27 [facility] ([place]) Comment on above: Performed By: #### A DIFF, CBC, ANEU, GFR, PRO, CMP ####[place] [address] Basophils/100 WBC (Bld) 0.2 % Normal 0.0-2.5 [facility] ([place]) Comment on above: Performed By: #### A DIFF, CBC, ANEU, GFR, PRO, CMP ####[place] [address] Eosinophil, Absolute 0.00 10 3/mcL Normal 0.00-0.65 [facility] ([place]) Comment on above: Performed By: #### A DIFF, CBC, ANEU, GFR, PRO, CMP ####[address] [address] Eosinophils/100 WBC (Bld) 0.2 % Normal 0.0-6.0 [facility] ([place]) Comment on above: Performed By: #### A DIFF, CBC, ANEU, GFR, PRO, CMP ####[address] [address] Lymphocyte, Absolute 0.50 10 3/mcL Low 0.90-4.32 [facility] ([place]) Comment on above: Performed By: #### A DIFF, CBC, ANEU, GFR, PRO, CMP ####[address] [address] Lymphocytes/100 WBC (Bld) 2.5 % Low 20.0-40.0 [facility] ([place]) Comment on above: Performed By: #### A DIFF, CBC, ANEU, GFR, PRO, CMP ####[address] [address] Monocyte, Absolute 1.70 10 3/mcL High 0.09-1.40 [facility] ([place]) Comment on above: Performed By: #### A DIFF, CBC, ANEU, GFR, PRO, CMP ####[address] [address] Monocytes/100 WBC (Bld) 8.8 % Normal 2.0-13.0 [facility] ([place]) Comment on above: Performed By: #### A DIFF, CBC, ANEU, GFR, PRO, CMP ####[address] [address] Neutrophils/100 WBC (Bld) 88.3 % High 50.0-75.0 [facility] ([place]) Comment on above: Performed By: #### A DIFF, CBC, ANEU, GFR, PRO, CMP ####[address] [address] .GFRon 10-29-2021 GFR >60 Normal [facility] ([place]) Comment on above: Result Comment: GFR Population mean for , Non- Americans Ages 20-29 = 116 mL/min/1.73 sq.m. Ages 30-39 = 107 mL/min/1.73 sq.m. Ages 40-49 = 99 mL/min/1.73 sq.m. Ages 50-59 = 93 mL/min/1.73 sq.m. Ages 60-69 = 85 mL/min/1.73 sq.m. Ages 70+ = 75 mL/min/1.73 sq.m.Chronic Kidney Disease: Less than 60 mL/min/1.73 square metersEnd Stage Renal Disease: Less than 15 mL/min/1.73 square meters Performed By: #### A DIFF, CBC, ANEU, GFR, PRO, CMP ####[address] [address] GFR Non- >60 Normal [facility] ([place]) Comment on above: Result Comment: GFR Population mean for , Non- Americans Ages 20-29 = 116 mL/min/1.73 sq.m. Ages 30-39 = 107 mL/min/1.73 sq.m. Ages 40-49 = 99 mL/min/1.73 sq.m. Ages 50-59 = 93 mL/min/1.73 sq.m. Ages 60-69 = 85 mL/min/1.73 sq.m. Ages 70+ = 75 mL/min/1.73 sq.m.Chronic Kidney Disease: Less than 60 mL/min/1.73 square metersEnd Stage Renal Disease: Less than 15 mL/min/1.73 square meters Performed By: #### A DIFF, CBC, ANEU, GFR, PRO, CMP ####[address] [address] .NEUABSon 10-29-2021 Neutrophil, Absolute 16.80 10 3/mcL High 2.25-8.10 [facility] ([place]) Comment on above: Performed By: #### A DIFF, CBC, ANEU, GFR, PRO, CMP ####[address] [address] ABO/Rh (Gel)on 10-29-2021 ABO/Rh Interp Positive Invalid Interpretation Code [facility] ([place]) Comment on above: Order Comment: Order ed by Discern Performed By: #### A JOVANY ####[address] [address] Absolute lymphocyte counton 10-29-2021 Lymphocytes Auto (Unsp spec) [#/Vol] 0.73 10*3/uL 0.83-4.51 [facility] Work Phone: Basophil percentageon 2021 Basophil percentage 5-10 SEEN /hpf 0-5 [facility] Work Phone: Basophils/100 WBC (Bld) 0.3 % 0-1 [facility] Work Phone: Bilirubin [Mass/Vol] 0.80 mg/dL 0.20-1.00 [facility] Work Phone: Comment on above: For patients on eltr ombopag therapy, use of Dimension [place] TBIL is not recommended. Chloride [Moles/Vol] 100 mmol/L 98-107 [facility] Work Phone: Eosinophils/100 WBC (Bld) 0.3 % 0-5 [facility] Work Phone: Glucose [Mass/Vol] 136 mg/dL 74-106 [facility] Work Phone: Comment on above: Fasting Glucose resu lt greater than or equal to 126 mg/dL suggests DIABETES MELLITUS per A.D.A. criteria. Lactate [Moles/Vol] 2.0 mmol/L 0.4-2.0 [facility] Work Phone: Comment on above: Critical Result(s) C alled at: 02:26:02 10/29/2021 by: JODEE Hernandez [employer]. Results read back by same. Neutrophils (Bld) [#/Vol] 16.7 10*3/uL 2.0-7.7 [facility] Work Phone: Neutrophils/100 WBC (Bld) 84.4 % 47-70 [facility] Work Phone: Potassium [Moles/Vol] 3.5 mmol/L 3.5-5.1 [facility] Work Phone: Protein [Mass/Vol] 6.3 g/dL 6.4-8.2 [facility] Work Phone: Sodium [Moles/Vol] 136 mmol/L 136-145 [facility] Work Phone: WBC (Bld) [#/Vol] 19.8 10*3/uL 4.4-11.0 [facility] Work Phone: Bilirubin Test strip Ql (U)o n 10-29-2021 Bilirubin Ql (U) 1 mg/dL Negative [facility] Work Phone: Comment on above: COLOR OF URINE MAY A FFECT DIPSTICK RESULTS. Blood erythrocytes count (nu mber/volume)on 10-29-2021 RBC (Bld) [#/Vol] 4.59 10*6/uL 4.6-6.2 [facility] Work Phone: Blood hemoglobin measurement (mass/volume)on 10-29-2021 Hemoglobin (Bld) [Mass/Vol] 14.4 g/dL 13.0-16.5 [facility] Work Phone: Blood lymphocytes/100 leukoc yteson 10-29-2021 Lymphocytes/100 WBC (Bld) 3.7 % 19-41 [facility] Work Phone: Blood manual differential co mment interpretation (narrative result)on 10-29-2021 Manual differential comment [place] (Bld) [Interp] SCANNED [facility] Work Phone: Blood monocytes/100 leukocyt eson 10-29-2021 Monocytes/100 WBC (Bld) 10.1 % 0-10 [facility] Work Phone: Blood platelet mean volumeon 10-29-2021 Platelet mean volume (Bld) [Entitic vol] 11.1 fL 6.2-12.0 [facility] Work Phone: CBCon 10-29-2021 Erythrocyte distribution width (RBC) [Ratio] 14.8 % Normal 11.5-15.5 [facility] ([place]) Comment on above: Performed By: #### A DIFF, CBC, ANEU, GFR, PRO, CMP ####[place] [address] Hematocrit (Bld) [Volume fraction] 39.6 % Low 40.0-52.0 [facility] ([place]) Comment on above: Performed By: #### A DIFF, CBC, ANEU, GFR, PRO, CMP ####[place] [address] Hgb 13.3 G/dL Normal 13.0-17.5 [facility] ([place]) Comment on above: Performed By: #### A DIFF, CBC, ANEU, GFR, PRO, CMP ####[place] [address] MCH (RBC) [Entitic mass] 30.5 pg Normal 27.0-33.0 [facility] ([place]) Comment on above: Performed By: #### A DIFF, CBC, ANEU, GFR, PRO, CMP ####[place] [address] MCHC 33.6 G/dL Normal 32.0-36.0 [facility] ([place]) Comment on above: Performed By: #### A DIFF, CBC, ANEU, GFR, PRO, CMP ####[place] [address] MCV (RBC) [Entitic vol] 90.9 fL Normal 81.0-100.0 [facility] ([place]) Comment on above: Performed By: #### A DIFF, CBC, ANEU, GFR, PRO, CMP ####[place] [address] Platelet 184 10 3/mcL Normal 150-450 [facility] ([place]) Comment on above: Performed By: #### A DIFF, CBC, ANEU, GFR, PRO, CMP ####[place] [address] Platelet mean volume (Bld) [Entitic vol] 9.2 fL Normal 6.4-10.5 [facility] ([place]) Comment on above: Performed By: #### A DIFF, CBC, ANEU, GFR, PRO, CMP ####[place] [address] RBC 4.36 10 6/mcL Low 4.50-6.00 [facility] ([place]) Comment on above: Performed By: #### A DIFF, CBC, ANEU, GFR, PRO, CMP ####[place] [address] WBC 19.00 10 3/mcL High 4.50-10.80 [facility] ([place]) Comment on above: Performed By: #### A DIFF, CBC, ANEU, GFR, PRO, CMP ####[place] [address] CMPon 10-29-2021 Albumin Level 1.7 G/dL Low 3.2-4.8 [facility] ([place]) Comment on above: Performed By: #### A DIFF, CBC, ANEU, GFR, PRO, CMP ####[place] [address] Albumin/Globulin [Mass ratio] 0.5 {ratio} Low 0.9-1.6 [facility] ([place]) Comment on above: Performed By: #### A DIFF, CBC, ANEU, GFR, PRO, CMP ####[place] [address] ALP [Catalytic activity/Vol] 151 U/L High 38-126 [facility] ([place]) Comment on above: Performed By: #### A DIFF, CBC, ANEU, GFR, PRO, CMP ####[place] [address] ALT/SGPT <8 Low 12-55 [facility] ([place]) Comment on above: Performed By: #### A DIFF, CBC, ANEU, GFR, PRO, CMP ####[place] [address] AST [Catalytic activity/Vol] 30 U/L Normal 8-34 [facility] ([place]) Comment on above: Performed By: #### A DIFF, CBC, ANEU, GFR, PRO, CMP ####[place] [id number] Bili Total 0.70 mg/dL Normal 0.20-1.20 [facility] ([place]) Comment on above: Result Comment: Use of this assay is not recommended for patients undergoing treatment with eltrombopag due to the potential for falsely elevated results. Performed By: #### A DIFF, CBC, ANEU, GFR, PRO, CMP ####[place] [address] BUN/Creatinine Ratio 26.0 ratio High 10.0-22.0 [facility] ([place]) Comment on above: Performed By: #### A DIFF, CBC, ANEU, GFR, PRO, CMP ####[place] [address] Calcium [Mass/Vol] 8.5 mg/dL Low 8.7-10.4 [facility] ([place]) Comment on above: Result Comment: No te - New Reference Range in effect 20 Performed By: #### A DIFF, CBC, ANEU, GFR, PRO, CMP ####[place] [address] Chloride [Moles/Vol] 105 mmol/L Normal 98-110 [facility] ([place]) Comment on above: Performed By: #### A DIFF, CBC, ANEU, GFR, PRO, CMP ####[place] [address] CO2 [Moles/Vol] 31 mmol/L Normal 22-32 [facility] ([place]) Comment on above: Performed By: #### A DIFF, CBC, ANEU, GFR, PRO, CMP ####[address] [address] Creatinine [Mass/Vol] 0.73 mg/dL Normal 0.60-1.40 [facility] ([place]) Comment on above: Performed By: #### A DIFF, CBC, ANEU, GFR, PRO, CMP ####[address] [address] Electrolyte Balance 3.0 mEq/L Low 4.0-15.0 [facility] ([place]) Comment on above: Performed By: #### A DIFF, CBC, ANEU, GFR, PRO, CMP ####[address] [address] Globulin 3.5 G/dL Normal 1.5-3.8 [facility] [facility] ([place]) Comment on above: Performed By: #### A DIFF, CBC, ANEU, GFR, PRO, CMP ####[address] [address] Glucose [Mass/Vol] 118 mg/dL High 82-115 [facility] ([place]) Comment on above: Performed By: #### A DIFF, CBC, ANEU, GFR, PRO, CMP ####[address] [address] Potassium [Moles/Vol] 3.4 mmol/L Low 3.5-5.0 [facility] ([place]) Comment on above: Performed By: #### A DIFF, CBC, ANEU, GFR, PRO, CMP ####[address] [address] Sodium [Moles/Vol] 139 mmol/L Normal 136-145 [facility] ([place]) Comment on above: Performed By: #### A DIFF, CBC, ANEU, GFR, PRO, CMP ####[address] [address] Total Protein 5.2 G/dL Low 5.7-8.2 [facility] ([place]) Comment on above: Result Comment: No te - New Reference Range in effect 20 Performed By: #### A DIFF, CBC, ANEU, GFR, PRO, CMP ####[address] [address] Urea nitrogen [Mass/Vol] 19.0 mg/dL Normal 8.0-22.0 [facility] ([place]) Comment on above: Performed By: #### A DIFF, CBC, ANEU, GFR, PRO, CMP ####[address] [address] Culture, urineon 10-29-2021 Bacteria identified Cx Nom (U) Culture exhibits no growth. [facility] Work Phone: Determination of erythrocyte mean corpuscular volume (MCV)on 10-29-2021 MCV (RBC) [Entitic vol] 93.9 fL 80-94 [facility] Work Phone: FFP (Product)on 10-29-2021 FFP Product Ready FFP Ready for Pickup Normal [facility] ([place]) Comment on above: Performed By: #### F ####[place] [id number] [place] [address] Hematocrit Auto (Bld) [Volum e fraction]on 10-29-2021 Hematocrit (Bld) [Volume fraction] 43.1 % 40-54 [facility] Work Phone: INR in Blood by Coagulation assayon 10-29-2021 INR Coag (Bld) [Relative time] 2.6 {INR} [facility] Work Phone: Ketones Test strip Ql (U)on 10-29-2021 Ketones Ql (U) 5 mg/dl Negative [facility] Work Phone: LABORATORYOrdered By: Yair Ojeda on 10-29-2021 ABO and Rh group Nom (Bld) Blood group O Rh(D) positive Invalid Interpretation Code BB Auto SS LABORATORYOrdered By: [facility] on 10-29-2021 FFP Product Ready FFP Ready for Pickup (10/29/21 12:05 PM) Invalid Interpretation Code BB Manual SS LABORATORYOrdered By: [employer] on 10-29-2021 Albumin BCP dye [Mass/Vol] 1.7 G/dL Invalid Interpretation Code 3.2 - 4.8 G/dL ADM SS Albumin/Globulin [Mass ratio] 0.5 {ratio} Invalid Interpretation Code 0.9 - 1.6 ratio ADM SS ALP [Catalytic activity/Vol] 151 U/L Invalid Interpretation Code 38 - 126 U/L ADM SS ALT No additional P-5'-P [Catalytic activity/Vol] U/L 1 Invalid Interpretation Code 12 - 55 U/L ADM SS AST [Catalytic activity/Vol] 30 U/L Invalid Interpretation Code 8 - 34 U/L ADM SS Bilirubin [Mass/Vol] 0.70 mg/dL Invalid Interpretation Code 0.20 - 1.20 mg/dL ADM SS Globulin 3.5 G/dL Invalid Interpretation Code 1.5 - 3.8 G/dL ADM SS Protein [Mass/Vol] 5.2 G/dL Invalid Interpretation Code 5.7 - 8.2 G/dL ADM SS Laboratory - Chemistry and C hemistry - challengeon 10-29-2021 ALP [Catalytic activity/Vol] 126 U/L 45-117 [facility] Work Phone: ALT [Catalytic activity/Vol] U/L 16-61 [facility] Work Phone: CO2 [Moles/Vol] 31.0 mmol/L 21.0-32.0 [facility] Work Phone: Globulin (S) [Mass/Vol] 4.5 g/dL 2.2-4.2 [facility] Work Phone: Lipase [Catalytic activity/Vol] 55 U/L 73-393 [facility] Work Phone: Urea nitrogen/Creatinine [Mass ratio] 21.5 mg/mg 10-20 [facility] Work Phone: Laboratory - Coagulationon 0 10-29-2021 aPTT Coag (Bld) [Time] 58.9 s 24.1-36.2 [facility] Work Phone: PT Coag (PPP) [Time] 27.4 s 11.7-14.9 [facility] Work Phone: Laboratory - Hematology and Cell countson 10-29-2021 Erythrocyte distribution width (RBC) [Entitic vol] 49.4 fL 35.1-43.9 [facility] Work Phone: Erythrocyte distribution width (RBC) [Ratio] 14.3 % 11.6-14.6 [facility] Work Phone: Immature granulocytes/100 WBC (Bld) 1.200 % 0.0-0.9 [facility] Work Phone: Comment on above: IG% - Immature Granu locytes (promyelocytes, myelocytes and metamyelocytes) > 1% indicates that a LEFT SHIFT is Present. MCH (RBC) [Entitic mass] 31.4 pg 27.0-32.0 [facility] Work Phone: Nucleated RBC/100 WBC (Bld) [Ratio] 0 % 0-5 [facility] Work Phone: Laboratory - Microbiology an d Antimicrobial susceptibilityon 10-29-2021 Bacteria identified Cx Nom (Bld) No growth in 5 days. [facility] Work Phone: MCHC Auto (RBC) [Mass/Vol]on 10-29-2021 MCHC (RBC) [Mass/Vol] 33.4 g/dL 32-36 [facility] Work Phone: Mucus LM Ql (Urine sed)on Mucus Ql (Urine sed) 0 SEEN /hpf [facility] Work Phone: Nitrite Test strip Ql (U)on 10-29-2021 Nitrite Ql (U) Positive Negative [facility] Work Phone: No Panel Informationon 10-29 Culture Body Fluid No growth to date [facility] GS Unsedimented No organisms seen. [facility] Estimated Creatinine Clearance Calc 62.75 ml/min [facility] Work Phone: Estimated GFR (MDRD) Amer 121 mL/min >60 [facility] Work Phone: Comment on above: GFR Calc Estimated GFR (MDRD) Non-Af Amer 100 mL/min >60 [facility] Work Phone: Comment on above: Non- GFR Calc PROon 10-29-2021 INR Coag (PPP) [Relative time] 2.1 {INR} Normal [facility] ([place]) Comment on above: Result Comment: [employer] (CHEST, 1992, [id number])recommended therapeutic range for oral anticoagulant therapy is:LOW RISK: Prophylaxis of venous thrombosis INR: 2.0-3.0 Treatment of pulmonary embolism 2.0-3.0 Prevention of systemic embolism 2.0-3.0HIGH RISK: Mechanical prosthetic valves 2.5-3.5 Performed By: #### P RO ####[place] [id number] [place] [id number] PT Coag (PPP) [Time] 24.9 s High 9.0-14.9 [facility] ([place]) Comment on above: Result Comment: Effe ctive 03/03/08, Protime results may be affected by some antibiotics (i.e. Ciprofloxacin, Azithromycin, Bactrim) which may potentiate the action of oral anticoagulants, with further increases in Protime/INR. Performed By: #### P RO ####[facility] [place] [address] INR Coag (PPP) [Relative time] 2.1 {INR} Normal [facility] ([place]) Comment on above: Result Comment: [employer] (CHEST, 1992, [id number])recommended therapeutic range for oral anticoagulant therapy is:LOW RISK: Prophylaxis of venous thrombosis INR: 2.0-3.0 Treatment of pulmonary embolism 2.0-3.0 Prevention of systemic embolism 2.0-3.0HIGH RISK: Mechanical prosthetic valves 2.5-3.5 Performed By: #### A DIFF, CBC, ANEU, GFR, PRO, CMP ####[address] [address] PT Coag (PPP) [Time] 25.1 s High 9.0-14.9 [facility] ([place]) Comment on above: Result Comment: Effe ctive 03/03/08, Protime results may be affected by some antibiotics (i.e. Ciprofloxacin, Azithromycin, Bactrim) which may potentiate the action of oral anticoagulants, with further increase in Protime/INR. Performed By: #### A DIFF, CBC, ANEU, GFR, PRO, CMP ####[address] [address] Platelets bldon 10-29-2021 Platelets (Bld) [#/Vol] 200 10*3/uL 150-450 [facility] Work Phone: Protein Test strip Ql (U)on 10-29-2021 Protein Ql (U) 30 mg/dl Negative [facility] Work Phone: Review by pathologiston 10-18 Pathologist review Diego (Unsp spec) [Interp] Reviewed [facility] Work Phone: Comment on above: Previous reported re sult: Jennie myers Edited by: [email or web address] on 10/31/21:1250Neutrophilic leukocytosis.Clinical correlation necessary.Yony Gomes M.D. 10/31/21 AMENDED REPORT 10/31/21 1250 PATH REV previously reported as: December louis Serum or plasma albumin shira urement (mass/volume)on 10-29-2021 Albumin [Mass/Vol] 1.8 g/dL 3.2-5.0 [facility] Work Phone: Serum or plasma albumin/glob ulin mass ratioon 10-29-2021 Albumin/Globulin [Mass ratio] 0.4 {ratio} 0.9-2.4 [facility] Work Phone: Serum or plasma calcium shira urement (mass/volume)on 10-29-2021 Calcium [Mass/Vol] 9.1 mg/dL 8.5-10.1 [facility] Work Phone: Serum or plasma creatinine m easurement (mass/volume)on 10-29-2021 Creatinine [Mass/Vol] 0.79 mg/dL 0.70-1.30 [facility] Work Phone: Comment on above: The validity of the calculated GFR & GFRAA in patients over 70 years has not been determined. Clinical correlation is essential. Serum or plasma urea nitroge n measurement (mass/volume)on 10-29-2021 Urea nitrogen [Mass/Vol] 17 mg/dL 7-18 [facility] Work Phone: Squamous epithelial cells de tection in urine sediment by light microscopyon 10-29-2021 Epithelial cells.squamous LM Ql (Urine sed) 0 SEEN /hpf 0-5 [facility] Work Phone: Thin prep Papanicolaou smear with manual screeningon 10-29-2021 Thin prep Papanicolaou smear with manual screening 27 U/L 15-37 [facility] Work Phone: Thin prep Papanicolaou smear with manual screening 5 5-15 [facility] Work Phone: Urine blood detectionon 10-18 RBC Ql (U) 10 /ul Negative [facility] Work Phone: RBC Ql (U) 0-5 SEEN /hpf 0-5 [facility] Work Phone: Urine clarityon 10-29-2021 Clarity (U) Clear Clear [facility] Work Phone: Urine color determinationon 10-29-2021 Color (U) Iris Yellow [facility] Work Phone: Urine glucose detectionon Glucose Ql (U) Normal mg/dl Normal [facility] Work Phone: Urine leukocyte esterase det ection by dipstickon 10-29-2021 Leukocyte esterase Test strip Ql (U) 100 /ul Negative [facility] Work Phone: Urine pHon 10-29-2021 pH (U) 6.0 [pH] 5.0 - 8.0 [facility] Work Phone: Urine sediment bacteria coun t by microscopy (number/high power field)on 10-29-2021 Bacteria LM.HPF (Urine sed) [#/Area] 3 /[HPF] None Seen [facility] Work Phone: Urine specific gravity measu rementon 10-29-2021 Specific gravity (U) [Rel density] 1.015 1.002-1.030 [facility] Work Phone: Urobilinogen Auto test strip Ql (U)on 10-29-2021 Urobilinogen Ql (U) 1 mg/dl Normal [facility] Work Phone: Absolute lymphocyte counton 10-28-2021 Lymphocytes Auto (Unsp spec) [#/Vol] 0.54 10*3/uL 0.83-4.51 [facility] Work Phone: Basophil percentageon 2021 Bilirubin [Mass/Vol] 0.50 mg/dL 0.20-1.00 [facility] Work Phone: Comment on above: For patients on eltr ombopag therapy, use of Dimension [place] TBIL is not recommended. Chloride [Moles/Vol] 99 mmol/L 98-107 [facility] Work Phone: Eosinophils/100 WBC (Bld) 0.1 % 0-5 [facility] Work Phone: Glucose [Mass/Vol] 164 mg/dL 74-106 [facility] Work Phone: Comment on above: Fasting Glucose resu lt greater than or equal to 126 mg/dL suggests DIABETES MELLITUS per A.D.A. criteria. Neutrophils (Bld) [#/Vol] 17.5 10*3/uL 2.0-7.7 [facility] Work Phone: Neutrophils/100 WBC (Bld) 88.4 % 47-70 [facility] Work Phone: Potassium [Moles/Vol] 3.8 mmol/L 3.5-5.1 [facility] Work Phone: Protein [Mass/Vol] 6.2 g/dL 6.4-8.2 [facility] Work Phone: Sodium [Moles/Vol] 135 mmol/L 136-145 [facility] Work Phone: Blood erythrocytes count (nu mber/volume)on 10-28-2021 RBC (Bld) [#/Vol] 4.57 10*6/uL 4.6-6.2 [facility] Work Phone: Blood hemoglobin measurement (mass/volume)on 10-28-2021 Hemoglobin (Bld) [Mass/Vol] 13.9 g/dL 13.0-16.5 [facility] Work Phone: Blood lymphocytes/100 leukoc yteson 10-28-2021 Lymphocytes/100 WBC (Bld) 2.7 % 19-41 [facility] Work Phone: Blood monocytes/100 leukocyt eson 10-28-2021 Monocytes/100 WBC (Bld) 7.2 % 0-10 [facility] Work Phone: Blood platelet mean volumeon 10-28-2021 Platelet mean volume (Bld) [Entitic vol] 10.6 fL 6.2-12.0 [facility] Work Phone: Determination of erythrocyte mean corpuscular volume (MCV)on 10-28-2021 MCV (RBC) [Entitic vol] 91.7 fL 80-94 [facility] Work Phone: Hematocrit Auto (Bld) [Volum e fraction]on 10-28-2021 Hematocrit (Bld) [Volume fraction] 41.9 % 40-54 [facility] Work Phone: Laboratory - Chemistry and C hemistry - challengeon 10-28-2021 ALP [Catalytic activity/Vol] 120 U/L 45-117 [facility] Work Phone: ALT [Catalytic activity/Vol] 7 U/L 16-61 [facility] Work Phone: Globulin (S) [Mass/Vol] 4.4 g/dL 2.2-4.2 [facility] Work Phone: Urea nitrogen/Creatinine [Mass ratio] 17.3 mg/mg 10-20 [facility] Work Phone: Laboratory - Hematology and Cell countson 10-28-2021 Erythrocyte distribution width (RBC) [Entitic vol] 48.0 fL 35.1-43.9 [facility] Work Phone: Erythrocyte distribution width (RBC) [Ratio] 14.4 % 11.6-14.6 [facility] Work Phone: Immature granulocytes/100 WBC (Bld) 1.300 % 0.0-0.9 [facility] Work Phone: Comment on above: IG% - Immature Granu locytes (promyelocytes, myelocytes and metamyelocytes) > 1% indicates that a LEFT SHIFT is Present. MCH (RBC) [Entitic mass] 30.4 pg 27.0-32.0 [facility] Work Phone: MCHC Auto (RBC) [Mass/Vol]on 10-28-2021 MCHC (RBC) [Mass/Vol] 33.2 g/dL 32-36 [facility] Work Phone: No Panel Informationon 10-28 Estimated GFR (MDRD) Amer 95 mL/min >60 [facility] Work Phone: Comment on above: GFR Calc Estimated GFR (MDRD) Non-Af Amer 78 mL/min >60 [facility] Work Phone: Comment on above: Non- GFR Calc Platelets bldon 10-28-2021 Platelets (Bld) [#/Vol] 189 10*3/uL 150-450 [facility] Work Phone: Serum or plasma calcium shira urement (mass/volume)on 10-28-2021 Calcium [Mass/Vol] 9.0 mg/dL 8.5-10.1 [facility] Work Phone: Serum or plasma creatinine m easurement (mass/volume)on 10-28-2021 Creatinine [Mass/Vol] 0.98 mg/dL 0.70-1.30 [facility] Work Phone: Comment on above: The validity of the calculated GFR & GFRAA in patients over 70 years has not been determined. Clinical correlation is essential. Thin prep Papanicolaou smear with manual screeningon 10-28-2021 Thin prep Papanicolaou smear with manual screening 28 U/L 15-37 [facility] Work Phone: Basophil percentageon 2021 Chloride [Moles/Vol] 101 mmol/L 98-107 [facility] Work Phone: Glucose [Mass/Vol] 103 mg/dL 74-106 [facility] Work Phone: Comment on above: Fasting Glucose resu lt from 100 to 125 mg/dL suggests IMPAIRED HOMEOSTASIS per A.D.A. criteria. Potassium [Moles/Vol] 3.8 mmol/L 3.5-5.1 [facility] Work Phone: Sodium [Moles/Vol] 137 mmol/L 136-145 [facility] Work Phone: WBC (Bld) [#/Vol] 7.9 10*3/uL 4.4-11.0 [facility] Work Phone: Blood erythrocytes count (nu mber/volume)on 10-24-2021 RBC (Bld) [#/Vol] 4.73 10*6/uL 4.6-6.2 [facility] Work Phone: Blood hemoglobin measurement (mass/volume)on 10-24-2021 Hemoglobin (Bld) [Mass/Vol] 14.3 g/dL 13.0-16.5 [facility] Work Phone: Blood platelet mean volumeon 10-24-2021 Platelet mean volume (Bld) [Entitic vol] 11.4 fL 6.2-12.0 [facility] Work Phone: Determination of erythrocyte mean corpuscular volume (MCV)on 10-24-2021 MCV (RBC) [Entitic vol] 93.4 fL 80-94 [facility] Work Phone: Hematocrit Auto (Bld) [Volum e fraction]on 10-24-2021 Hematocrit (Bld) [Volume fraction] 44.2 % 40-54 [facility] Work Phone: Laboratory - Chemistry and C hemistry - challengeon 10-24-2021 CO2 [Moles/Vol] 34.0 mmol/L 21.0-32.0 [facility] Work Phone: Urea nitrogen/Creatinine [Mass ratio] 17.2 mg/mg 10-20 [facility] Work Phone: Laboratory - Hematology and Cell countson 10-24-2021 Erythrocyte distribution width (RBC) [Entitic vol] 47.3 fL 35.1-43.9 [facility] Work Phone: Erythrocyte distribution width (RBC) [Ratio] 13.8 % 11.6-14.6 [facility] Work Phone: MCH (RBC) [Entitic mass] 30.2 pg 27.0-32.0 [facility] Work Phone: MCHC Auto (RBC) [Mass/Vol]on 10-24-2021 MCHC (RBC) [Mass/Vol] 32.4 g/dL 32-36 [facility] Work Phone: No Panel Informationon 10-24 Estimated GFR (MDRD) Amer 100 mL/min >60 [facility] Work Phone: Comment on above: GFR Calc Estimated GFR (MDRD) Non-Af Amer 83 mL/min >60 [facility] Work Phone: Comment on above: Non- GFR Calc Platelets bldon 10-24-2021 Platelets (Bld) [#/Vol] 217 10*3/uL 150-450 [facility] Work Phone: Serum or plasma calcium shira urement (mass/volume)on 10-24-2021 Calcium [Mass/Vol] 9.1 mg/dL 8.5-10.1 [facility] Work Phone: Serum or plasma creatinine m easurement (mass/volume)on 10-24-2021 Creatinine [Mass/Vol] 0.93 mg/dL 0.70-1.30 [facility] Work Phone: Comment on above: The validity of the calculated GFR & GFRAA in patients over 70 years has not been determined. Clinical correlation is essential. Serum or plasma urea nitroge n measurement (mass/volume)on 10-24-2021 Urea nitrogen [Mass/Vol] 16 mg/dL 7-18 [facility] Work Phone: Thin prep Papanicolaou smear with manual screeningon 10-24-2021 Thin prep Papanicolaou smear with manual screening 2 5-15 [facility] Work Phone: .Auto Diffon 10-21-2021 Basophil, Absolute 0.00 10 3/mcL Normal 0.00-0.27 [facility] ([place]) Comment on above: Performed By: #### C BC, CAION, MG, ADIFF, BMP, ANEU, GFR ####[address] [address] Basophils/100 WBC (Bld) 0.3 % Normal 0.0-2.5 [facility] ([place]) Comment on above: Performed By: #### C BC, CAION, MG, ADIFF, BMP, ANEU, GFR ####[address] [address] Eosinophil, Absolute 0.10 10 3/mcL Normal 0.00-0.65 [facility] ([place]) Comment on above: Performed By: #### C BC, CAION, MG, ADIFF, BMP, ANEU, GFR ####[address] [address] Eosinophils/100 WBC (Bld) 1.5 % Normal 0.0-6.0 [facility] ([place]) Comment on above: Performed By: #### C BC, CAION, MG, ADIFF, BMP, ANEU, GFR ####[address] [address] Lymphocyte, Absolute 0.70 10 3/mcL Low 0.90-4.32 [facility] ([place]) Comment on above: Performed By: #### C BC, CAION, MG, ADIFF, BMP, ANEU, GFR ####[address] [address] Lymphocytes/100 WBC (Bld) 9.2 % Low 20.0-40.0 [facility] ([place]) Comment on above: Performed By: #### C BC, CAION, MG, ADIFF, BMP, ANEU, GFR ####[address] [address] Monocyte, Absolute 1.00 10 3/mcL Normal 0.09-1.40 [facility] ([place]) Comment on above: Performed By: #### C BC, CAION, MG, ADIFF, BMP, ANEU, GFR ####[address] [place] [address] Monocytes/100 WBC (Bld) 12.9 % Normal 2.0-13.0 [facility] ([place]) Comment on above: Performed By: #### C BC, CAION, MG, ADIFF, BMP, ANEU, GFR ####[address] [address] Neutrophils/100 WBC (Bld) 76.1 % High 50.0-75.0 [facility] ([place]) Comment on above: Performed By: #### C BC, CAION, MG, ADIFF, BMP, ANEU, GFR ####[address] [address] .GFRon 10-21-2021 GFR >60 Normal [facility] ([place]) Comment on above: Result Comment: GFR Population mean for , Non- Americans Ages 20-29 = 116 mL/min/1.73 sq.m. Ages 30-39 = 107 mL/min/1.73 sq.m. Ages 40-49 = 99 mL/min/1.73 sq.m. Ages 50-59 = 93 mL/min/1.73 sq.m. Ages 60-69 = 85 mL/min/1.73 sq.m. Ages 70+ = 75 mL/min/1.73 sq.m.Chronic Kidney Disease: Less than 60 mL/min/1.73 square metersEnd Stage Renal Disease: Less than 15 mL/min/1.73 square meters Performed By: #### C BC, CAION, MG, ADIFF, BMP, ANEU, GFR ####[address] [address] GFR Non- >60 Normal [facility] ([place]) Comment on above: Result Comment: GFR Population mean for , Non- Americans Ages 20-29 = 116 mL/min/1.73 sq.m. Ages 30-39 = 107 mL/min/1.73 sq.m. Ages 40-49 = 99 mL/min/1.73 sq.m. Ages 50-59 = 93 mL/min/1.73 sq.m. Ages 60-69 = 85 mL/min/1.73 sq.m. Ages 70+ = 75 mL/min/1.73 sq.m.Chronic Kidney Disease: Less than 60 mL/min/1.73 square metersEnd Stage Renal Disease: Less than 15 mL/min/1.73 square meters Performed By: #### C BC, CAION, MG, ADIFF, BMP, ANEU, GFR ####[address] [address] .NEUABSon 10-21-2021 Neutrophil, Absolute 6.20 10 3/mcL Normal 2.25-8.10 [facility] ([place]) Comment on above: Performed By: #### C BC, CAION, MG, ADIFF, BMP, ANEU, GFR ####[place] [address] BMPon 10-21-2021 BUN/Creatinine Ratio 24.0 ratio High 10.0-22.0 [facility] ([place]) Comment on above: Performed By: #### C BC, CAION, MG, ADIFF, BMP, ANEU, GFR ####[place] [address] Calcium [Mass/Vol] 9.3 mg/dL Normal 8.7-10.4 [facility] ([place]) Comment on above: Result Comment: No te - New Reference Range in effect 20 Performed By: #### C BC, CAION, MG, ADIFF, BMP, ANEU, GFR ####[place] [address] Chloride [Moles/Vol] 100 mmol/L Normal 98-110 [facility] ([place]) Comment on above: Performed By: #### C BC, CAION, MG, ADIFF, BMP, ANEU, GFR ####[address] [address] CO2 [Moles/Vol] 33 mmol/L High 22-32 [facility] ([place]) Comment on above: Performed By: #### C BC, CAION, MG, ADIFF, BMP, ANEU, GFR ####[address] [address] Creatinine [Mass/Vol] 0.75 mg/dL Normal 0.60-1.40 [facility] ([place]) Comment on above: Performed By: #### C BC, CAION, MG, ADIFF, BMP, ANEU, GFR ####[place] [address] Electrolyte Balance 6.0 mEq/L Normal 4.0-15.0 [facility] ([place]) Comment on above: Performed By: #### C BC, CAION, MG, ADIFF, BMP, ANEU, GFR ####[place] [address] Glucose [Mass/Vol] 96 mg/dL Normal 82-115 [facility] ([place]) Comment on above: Performed By: #### C BC, CAION, MG, ADIFF, BMP, ANEU, GFR ####[place] [address] Potassium [Moles/Vol] 4.0 mmol/L Normal 3.5-5.0 [facility] ([place]) Comment on above: Performed By: #### C BC, CAION, MG, ADIFF, BMP, ANEU, GFR ####[place] [address] Sodium [Moles/Vol] 139 mmol/L Normal 136-145 [facility] ([place]) Comment on above: Performed By: #### C BC, CAION, MG, ADIFF, BMP, ANEU, GFR ####[place] [address] Urea nitrogen [Mass/Vol] 18.0 mg/dL Normal 8.0-22.0 [facility] ([place]) Comment on above: Performed By: #### C BC, CAION, MG, ADIFF, BMP, ANEU, GFR ####[place] [address] CAIONon 10-21-2021 Calcium Ionized 1.11 mmol/L Low 1.12-1.32 [facility] ([place]) Comment on above: Performed By: #### C BC, CAION, MG, ADIFF, BMP, ANEU, GFR ####[place] [address] CBCon 10-21-2021 Erythrocyte distribution width (RBC) [Ratio] 14.1 % Normal 11.5-15.5 [facility] ([place]) Comment on above: Performed By: #### C BC, CAION, MG, ADIFF, BMP, ANEU, GFR ####[place] [address] Hematocrit (Bld) [Volume fraction] 44.5 % Normal 40.0-52.0 [facility] ([place]) Comment on above: Performed By: #### C BC, CAION, MG, ADIFF, BMP, ANEU, GFR ####[place] [address] Hgb 14.9 G/dL Normal 13.0-17.5 [facility] ([place]) Comment on above: Performed By: #### C BC, CAION, MG, ADIFF, BMP, ANEU, GFR ####[place] [address] MCH (RBC) [Entitic mass] 30.4 pg Normal 27.0-33.0 [facility] ([place]) Comment on above: Performed By: #### C BC, CAION, MG, ADIFF, BMP, ANEU, GFR ####[place] [address] MCHC 33.6 G/dL Normal 32.0-36.0 [facility] ([place]) Comment on above: Performed By: #### C BC, CAION, MG, ADIFF, BMP, ANEU, GFR ####[place] [address] MCV (RBC) [Entitic vol] 90.6 fL Normal 81.0-100.0 [facility] ([place]) Comment on above: Performed By: #### C BC, CAION, MG, ADIFF, BMP, ANEU, GFR ####[place] [address] Platelet 238 10 3/mcL Normal 150-450 [facility] ([place]) Comment on above: Performed By: #### C BC, CAION, MG, ADIFF, BMP, ANEU, GFR ####[place] [id number] Platelet mean volume (Bld) [Entitic vol] 8.0 fL Normal 6.4-10.5 [facility] ([place]) Comment on above: Performed By: #### C BC, CAION, MG, ADIFF, BMP, ANEU, GFR ####[place] [address] RBC 4.91 10 6/mcL Normal 4.50-6.00 [facility] ([place]) Comment on above: Performed By: #### C BC, CAION, MG, ADIFF, BMP, ANEU, GFR ####[place] [address] WBC 8.10 10 3/mcL Normal 4.50-10.80 [facility] ([place]) Comment on above: Performed By: #### C BC, CAION, MG, ADIFF, BMP, ANEU, GFR ####[place] [address] LABORATORYOrdered By: SYSTEM SYSTEM on 10-21-2021 Basophils (Bld) [#/Vol] 0.00 103/mcL Invalid Interpretation Code 0.00 - 0.27 10^3/mcL AH Remisol SS Basophils/100 WBC (Bld) 0.3 % Invalid Interpretation Code 0.0 - 2.5 % AH Remisol SS Calcium [Mass/Vol] 9.3 mg/dL Invalid Interpretation Code 8.7 - 10.4 mg/dL ADM SS Chloride [Moles/Vol] 100 mmol/L Invalid Interpretation Code 98 - 110 mEq/L ADM SS CO2 [Moles/Vol] 33 mmol/L Invalid Interpretation Code 22 - 32 mEq/L AH ADM SS Creatinine [Mass/Vol] 0.75 mg/dL Invalid Interpretation Code 0.60 - 1.40 mg/dL AH ADM SS Electrolyte Balance 6.0 mEq/L Invalid Interpretation Code 4.0 - 15.0 mEq/L AH ADM SS Eosinophils (Bld) [#/Vol] 0.10 103/mcL Invalid Interpretation Code 0.00 - 0.65 10^3/mcL AH Remisol SS Eosinophils/100 WBC (Bld) 1.5 % Invalid Interpretation Code 0.0 - 6.0 % AH Remisol SS Erythrocyte distribution width (RBC) [Ratio] 14.1 % Invalid Interpretation Code 11.5 - 15.5 % Remisol SS GFR/1.73 sq M.predicted among blacks MDRD (S/P/Bld) [Vol rate/Area] ml/min/1.73sqm Invalid Interpretation Code Chemistry S GFR/1.73 sq M.predicted among non-blacks MDRD (S/P/Bld) [Vol rate/Area] ml/min/1.73sqm Invalid Interpretation Code Chemistry S Glucose [Mass/Vol] 96 mg/dL Invalid Interpretation Code 82 - 115 mg/dL ADM SS Hematocrit (Bld) [Volume fraction] 44.5 % Invalid Interpretation Code 40.0 - 52.0 % Remisol SS Hemoglobin (Bld) [Mass/Vol] 14.9 G/dL Invalid Interpretation Code 13.0 - 17.5 G/dL Remisol SS Lymphocytes (Bld) [#/Vol] 0.70 103/mcL Invalid Interpretation Code 0.90 - 4.32 10^3/mcL AH Remisol SS Lymphocytes/100 WBC (Bld) 9.2 % Invalid Interpretation Code 20.0 - 40.0 % Remisol SS Magnesium [Mass/Vol] 1.8 mg/dL Invalid Interpretation Code 1.6 - 2.4 mg/dL AH ADM SS MCH (RBC) [Entitic mass] 30.4 pg Invalid Interpretation Code 27.0 - 33.0 pg AH Remisol SS MCHC (RBC) [Mass/Vol] 33.6 G/dL Invalid Interpretation Code 32.0 - 36.0 G/dL AH Remisol SS MCV (RBC) [Entitic vol] 90.6 fL Invalid Interpretation Code 81.0 - 100.0 fL AH Remisol SS Monocytes (Bld) [#/Vol] 1.00 103/mcL Invalid Interpretation Code 0.09 - 1.40 10^3/mcL AH Remisol SS Monocytes/100 WBC (Bld) 12.9 % Invalid Interpretation Code 2.0 - 13.0 % AH Remisol SS Neutrophils (Bld) [#/Vol] 6.20 103/mcL Invalid Interpretation Code 2.25 - 8.10 10^3/mcL AH Remisol SS Neutrophils/100 WBC (Bld) 76.1 % Invalid Interpretation Code 50.0 - 75.0 % AH Remisol SS Platelet mean volume (Bld) [Entitic vol] 8.0 fL Invalid Interpretation Code 6.4 - 10.5 fL AH Remisol SS Platelets (Bld) [#/Vol] 238 103/mcL Invalid Interpretation Code 150 - 450 10^3/mcL AH Remisol SS Potassium [Moles/Vol] 4.0 mmol/L Invalid Interpretation Code 3.5 - 5.0 mEq/L AH ADM SS RBC (Bld) [#/Vol] 4.91 106/mcL Invalid Interpretation Code 4.50 - 6.00 10^6/mcL AH Remisol SS Sodium [Moles/Vol] 139 mmol/L Invalid Interpretation Code 136 - 145 mEq/L AH ADM SS Urea nitrogen [Mass/Vol] 18.0 mg/dL Invalid Interpretation Code 8.0 - 22.0 mg/dL AH ADM SS Urea nitrogen/Creatinine [Mass ratio] 24.0 ratio Invalid Interpretation Code 10.0 - 22.0 ratio AH ADM SS WBC (Bld) [#/Vol] 8.10 103/mcL Invalid Interpretation Code 4.50 - 10.80 10^3/mcL AH Remisol SS LABORATORYOrdered By: Cedric Alvares on 10-21-2021 Calcium.ionized (Bld) [Mass/Vol] 1.11 mmol/L Invalid Interpretation Code 1.12 - 1.32 mmol/L AH Auto Chem SS LABORATORYOrdered By: Lamin Robles on 10-21-2021 INR Coag (PPP) [Relative time] 3.2 {INR} Invalid Interpretation Code AH Auto Coag SS PT Coag (PPP) [Time] 39.0 s Invalid Interpretation Code 9.0 - 14.9 seconds AH Auto Coag SS MGon 10-21-2021 Magnesium [Mass/Vol] 1.8 mg/dL Normal 1.6-2.4 [facility] ([place]) Comment on above: Performed By: #### C BC, CAION, MG, ADIFF, BMP, ANEU, GFR ####[place] [address] PROon 10-21-2021 INR Coag (PPP) [Relative time] 3.2 {INR} Normal [facility] ([place]) Comment on above: Order Comment: order ed secondary to warfarin order Result Comment: [employer] (CHEST, 1992, 102:312S-25S)recommended therapeutic range for oral anticoagulant therapy is:LOW RISK: Prophylaxis of venous thrombosis INR: 2.0-3.0 Treatment of pulmonary embolism 2.0-3.0 Prevention of systemic embolism 2.0-3.0HIGH RISK: Mechanical prosthetic valves 2.5-3.5 Performed By: #### P RO ####[place] [address] PT Coag (PPP) [Time] 39.0 s High 9.0-14.9 [facility] ([place]) Comment on above: Order Comment: order ed secondary to warfarin order Result Comment: Effe ctive 03/03/08, Protime results may be affected by some antibiotics (i.e. Ciprofloxacin, Azithromycin, Bactrim) which may potentiate the action of oral anticoagulants, with further increases in Protime/INR. Performed By: #### P RO ####[place] [address] XR ABDOMEN 2 VIEWS W/ DECUB/ ERECTon 10-21-2021 XR ABDOMEN 2 VIEWS W/ DECUB/ERECT Normal [facility] ([place]) .Auto Diffon 10-20-2021 Basophil, Absolute 0.10 10 3/mcL Normal 0.00-0.27 [facility] ([place]) Comment on above: Performed By: #### M G, CAION, ANEU, GFR, CBC, BMP, ADIFF ####[place] [address] Basophils/100 WBC (Bld) 0.8 % Normal 0.0-2.5 [facility] ([place]) Comment on above: Performed By: #### M G, CAION, ANEU, GFR, CBC, BMP, ADIFF ####[place] [address] Eosinophil, Absolute 0.10 10 3/mcL Normal 0.00-0.65 [facility] ([place]) Comment on above: Performed By: #### M G, CAION, ANEU, GFR, CBC, BMP, ADIFF ####[id number] [place] [address] Eosinophils/100 WBC (Bld) 1.2 % Normal 0.0-6.0 [facility] ([place]) Comment on above: Performed By: #### M Ashley, CAION, ANEU, GFR, CBC, BMP, ADIFF ####[address] [address] Lymphocyte, Absolute 0.70 10 3/mcL Low 0.90-4.32 [facility] ([place]) Comment on above: Performed By: #### Maryanne Ramirez, CAION, ANEU, GFR, CBC, BMP, ADIFF ####[address] [address] Lymphocytes/100 WBC (Bld) 9.2 % Low 20.0-40.0 [facility] ([place]) Comment on above: Performed By: #### Maryanne Ramirez, CAION, ANEU, GFR, CBC, BMP, ADIFF ####[address] [address] Monocyte, Absolute 1.20 10 3/mcL Normal 0.09-1.40 [facility] ([place]) Comment on above: Performed By: #### Maryanne Ramirez, CAION, ANEU, GFR, CBC, BMP, ADIFF ####[address] [address] Monocytes/100 WBC (Bld) 14.3 % High 2.0-13.0 [facility] ([place]) Comment on above: Performed By: #### Mary[place] Ramirez, CAION, ANEU, GFR, CBC, BMP, ADIFF ####[address] [address] Neutrophils/100 WBC (Bld) 74.5 % Normal 50.0-75.0 [facility] ([place]) Comment on above: Performed By: #### Maryanne Ramirez, CAION, ANEU, GFR, CBC, BMP, ADIFF ####[address] [address] .GFRon 10-20-2021 GFR >60 Normal [facility] ([place]) Comment on above: Result Comment: GFR Population mean for , Non- Americans Ages 20-29 = 116 mL/min/1.73 sq.m. Ages 30-39 = 107 mL/min/1.73 sq.m. Ages 40-49 = 99 mL/min/1.73 sq.m. Ages 50-59 = 93 mL/min/1.73 sq.m. Ages 60-69 = 85 mL/min/1.73 sq.m. Ages 70+ = 75 mL/min/1.73 sq.m.Chronic Kidney Disease: Less than 60 mL/min/1.73 square metersEnd Stage Renal Disease: Less than 15 mL/min/1.73 square meters Performed By: #### CAITY Vaughn ANEU, GFR, CBC, BMP, ADIFF ####[place] [id number] [address] [place] [id number] GFR Non- >60 Normal [facility] ([place]) Comment on above: Result Comment: GFR Population mean for , Non- Americans Ages 20-29 = 116 mL/min/1.73 sq.m. Ages 30-39 = 107 mL/min/1.73 sq.m. Ages 40-49 = 99 mL/min/1.73 sq.m. Ages 50-59 = 93 mL/min/1.73 sq.m. Ages 60-69 = 85 mL/min/1.73 sq.m. Ages 70+ = 75 mL/min/1.73 sq.m.Chronic Kidney Disease: Less than 60 mL/min/1.73 square metersEnd Stage Renal Disease: Less than 15 mL/min/1.73 square meters Performed By: ###CAITY Kilgore ANEU, GFR, CBC, BMP, ADIFF ####[place] [address] .NEUABSon 10-20-2021 Neutrophil, Absolute 6.00 10 3/mcL Normal 2.25-8.10 [facility] ([place]) Comment on above: Performed By: ###CAITY Kilgore ANEU, GFR, CBC, BMP, ADIFF ####[address] [address] BMPon 10-20-2021 BUN/Creatinine Ratio 24.3 ratio High 10.0-22.0 [facility] ([place]) Comment on above: Performed By: #### M G, CAION, ANEU, GFR, CBC, BMP, ADIFF ####[address] [address] Calcium [Mass/Vol] 9.0 mg/dL Normal 8.4-10.1 [facility] ([place]) Comment on above: Result Comment: No te - New Reference Range in effect 20 Performed By: #### M G, CAION, ANEU, GFR, CBC, BMP, ADIFF ####[address] [address] Chloride [Moles/Vol] 97 mmol/L Low 98-110 [facility] ([place]) Comment on above: Performed By: #### M G, CAION, ANEU, GFR, CBC, BMP, ADIFF ####[address] [address] CO2 [Moles/Vol] 34 mmol/L High 22-32 [facility] ([place]) Comment on above: Performed By: #### M G, CAION, ANEU, GFR, CBC, BMP, ADIFF ####[address] [address] Creatinine [Mass/Vol] 0.74 mg/dL Normal 0.60-1.40 [facility] ([place]) Comment on above: Performed By: #### M G, CAION, ANEU, GFR, CBC, BMP, ADIFF ####[address] [address] Electrolyte Balance 6.0 mEq/L Normal 4.0-15.0 [facility] ([place]) Comment on above: Performed By: #### M G, CAION, ANEU, GFR, CBC, BMP, ADIFF ####[address] [address] Glucose [Mass/Vol] 107 mg/dL Normal 82-115 [facility] ([place]) Comment on above: Performed By: #### M G, CAION, ANEU, GFR, CBC, BMP, ADIFF ####[address] [address] Potassium [Moles/Vol] 3.7 mmol/L Normal 3.5-5.0 [facility] ([place]) Comment on above: Performed By: #### M Ashley, CAION, ANEU, GFR, CBC, BMP, ADIFF ####[place] [address] Sodium [Moles/Vol] 137 mmol/L Normal 136-145 [facility] ([place]) Comment on above: Performed By: #### Maryanne Ramirez, CAION, ANEU, GFR, CBC, BMP, ADIFF ####[place] [address] Urea nitrogen [Mass/Vol] 18.0 mg/dL Normal 8.0-22.0 [facility] ([place]) Comment on above: Performed By: #### Maryanne Ramirez, CAION, ANEU, GFR, CBC, BMP, ADIFF ####[place] [address] CAIONon 10-20-2021 Calcium Ionized 1.08 mmol/L Low 1.12-1.32 [facility] ([place]) Comment on above: Performed By: #### Maryanne Ramirez CAION, ANEU, GFR, CBC, BMP, ADIFF ####[place] [address] CBCon 10-20-2021 Erythrocyte distribution width (RBC) [Ratio] 14.0 % Normal 11.5-15.5 [facility] ([place]) Comment on above: Performed By: #### Maryanne Ramirez, CAION, ANEU, GFR, CBC, BMP, ADIFF ####[place] [address] Hematocrit (Bld) [Volume fraction] 42.4 % Normal 40.0-52.0 [facility] ([place]) Comment on above: Performed By: #### M Ashley, CAION, ANEU, GFR, CBC, BMP, ADIFF ####[place] [address] Hgb 14.4 G/dL Normal 13.0-17.5 [facility] ([place]) Comment on above: Performed By: #### Maryanne Ramirez, CAION, ANEU, GFR, CBC, BMP, ADIFF ####[place] [address] MCH (RBC) [Entitic mass] 30.5 pg Normal 27.0-33.0 [facility] ([place]) Comment on above: Performed By: #### M Ashley, CAION, ANEU, GFR, CBC, BMP, ADIFF ####[place] [address] MCHC 34.1 G/dL Normal 32.0-36.0 [facility] ([place]) Comment on above: Performed By: #### M Ashley, CAION, ANEU, GFR, CBC, BMP, ADIFF ####[place] [address] MCV (RBC) [Entitic vol] 89.6 fL Normal 81.0-100.0 [facility] ([place]) Comment on above: Performed By: #### Maryanne Ramirez, CAION, ANEU, GFR, CBC, BMP, ADIFF ####[place] [address] Platelet 251 10 3/mcL Normal 150-450 [facility] ([place]) Comment on above: Performed By: #### M Ashley, CAION, ANEU, GFR, CBC, BMP, ADIFF ####[place] [address] Platelet mean volume (Bld) [Entitic vol] 8.3 fL Normal 6.4-10.5 [facility] ([place]) Comment on above: Performed By: #### Maryanne Ramirez, CAION, ANEU, GFR, CBC, BMP, ADIFF ####[place] [address] RBC 4.73 10 6/mcL Normal 4.50-6.00 [facility] ([place]) Comment on above: Performed By: #### Maryanne Ramirez, CAION, ANEU, GFR, CBC, BMP, ADIFF ####[place] [address] WBC 8.10 10 3/mcL Normal 4.50-10.80 [facility] ([place]) Comment on above: Performed By: #### Maryanne Ramirez, CAION, ANEU, GFR, CBC, BMP, ADIFF ####[place] [address] CVFLURVon 10-20-2021 Date of Onset 20211020 Invalid Interpretation Code [facility] ([place]) Comment on above: Performed By: #### C VFLURV ####[place] [address] Employed in Healthcare No [facility] ([place]) Comment on above: Performed By: #### C VFLURV ####[place] [address] First Test Unknown [facility] ([place]) Comment on above: Performed By: #### C VFLURV ####[place] [address] FLU A PCR Negative Normal Negative [facility] ([place]) Comment on above: Result Comment: Note s Performed By: #### C VFLURV ####[place] [address] FLU B PCR Negative Normal Negative [facility] ([place]) Comment on above: Result Comment: Note s Performed By: #### C VFLURV ####[place] [address] Hospitalized Yes [facility] ([place]) Comment on above: Performed By: #### C VFLURV ####[place] [address] ICU No [facility] ([place]) Comment on above: Performed By: #### C VFLURV ####[place] [address] Not [facility] ([place]) Comment on above: Performed By: #### C VFLURV ####[place] [address] Resides in Congregate Care Setting Yes [facility] ([place]) Comment on above: Performed By: #### C VFLURV ####[place] [address] RSV PCR Negative Normal Negative [facility] ([place]) Comment on above: Result Comment: Note s Performed By: #### C VFLURV ####[place] [address] SARS-CoV-2 (COVID-19) RNA GETACHEW+probe Ql (Unsp spec) Negative Normal Negative [facility] ([place]) Comment on above: Result Comment: Note s [id number] test has been authorized by FDA under an EUA for use by authorized laboratories and has not been FDA cleared or approved.Results from the Xpert Xpress SARS-CoV-2/Flu/RSV or Xpert Xpress SARS-CoV-2 only test should be correlated with the clinical history, epidemiological data, and other data available to the clinician evaluating the patient.Performance of the Xpert Xpress SARS-CoV-2/Flu/RSV or Xpert Xpress SARS-CoV-2 only test has only been established in nasopharyngeal swab specimens.Erroneous test results might occur from improper specimen collection; failure to follow the recommended sample collection, handling, and storage procedures; technical error; or sample mix-up.False negative results may occur if virus is present at levels below the analytical limit of detection.Viral nucleic acid may persist in vivo, independent of virus viability. Detection of analyte target(s) does not imply that the corresponding virus(es) are infectious or are the causative agents for clinical symptoms.Recent patient exposure to FluMist or other live attenuated influenza vaccines may cause inaccurate positive results. Performed By: #### C VFLURV ####[place] [address] Symptomatic as Defined by CDC No Normal [facility] ([place]) Comment on above: Performed By: #### C VFLURV ####[place] [address] LABORATORYOrdered By: Jill Ma on 10-20-2021 Date of Onset 20211020 Invalid Interpretation Code AH Auto Viro/Sero SS Employed in Healthcare No (10/20/21 11:33 AM) Invalid Interpretation Code AH Auto Viro/Sero SS First Test Unknown (10/20/21 11:33 AM) Invalid Interpretation Code AH Auto Viro/Sero SS FLU A PCR Negative 2 (10/20/21 11:33 AM) Invalid Interpretation Code Negative AH Auto Viro/Sero SS Comment on above: Result Comment: Note s FLU B PCR Negative 3 (10/20/21 11:33 AM) Invalid Interpretation Code Negative AH Auto Viro/Sero SS Comment on above: Result Comment: [place] [id number] Hospitalized Yes (10/20/21 11:33 AM) Invalid Interpretation Code AH Auto Viro/Sero SS ICU No (10/20/21 11:33 AM) Invalid Interpretation Code AH Auto Viro/Sero SS Not (10/20/21 11:33 AM) Invalid Interpretation Code AH Auto Viro/Sero SS Resides in Congregate Care Setting Yes (10/20/21 11:33 AM) Invalid Interpretation Code AH Auto Viro/Sero SS RSV PCR Negative 4 (10/20/21 11:33 AM) Invalid Interpretation Code Negative AH Auto Viro/Sero SS Comment on above: Result Comment: [place] [id number] SARS-CoV-2 (COVID-19) RNA GETACHEW+probe Ql (Unsp spec) Negative 1 (10/20/21 11:33 AM) Invalid Interpretation Code Negative AH Auto Viro/Sero SS Comment on above: Result Comment: [place] [id number] Symptomatic as Defined by CDC No (10/20/21 11:33 AM) Invalid Interpretation Code AH Auto Viro/Sero SS LABORATORYOrdered By: SYSTEM SYSTEM on 10-20-2021 Base excess Calc (BldMV) [Moles/Vol] 6.0 mEq/L Invalid Interpretation Code 4.0 - 15.0 mEq/L AH ADM SS Basophils (Bld) [#/Vol] 0.10 103/mcL Invalid Interpretation Code 0.00 - 0.27 10^3/mcL AH Remisol SS Basophils/100 WBC (Bld) 0.8 % Invalid Interpretation Code 0.0 - 2.5 % AH Remisol SS Calcium [Mass/Vol] 9.0 mg/dL Invalid Interpretation Code 8.4 - 10.1 mg/dL AH ADM SS Chloride [Moles/Vol] 97 mmol/L Invalid Interpretation Code 98 - 110 mEq/L AH ADM SS CO2 [Moles/Vol] 34 mmol/L Invalid Interpretation Code 22 - 32 mEq/L AH ADM SS Creatinine [Mass/Vol] 0.74 mg/dL Invalid Interpretation Code 0.60 - 1.40 mg/dL AH ADM SS Eosinophils (Bld) [#/Vol] 0.10 103/mcL Invalid Interpretation Code 0.00 - 0.65 10^3/mcL AH Remisol SS Eosinophils/100 WBC (Bld) 1.2 % Invalid Interpretation Code 0.0 - 6.0 % AH Remisol SS Erythrocyte distribution width (RBC) [Ratio] 14.0 % Invalid Interpretation Code 11.5 - 15.5 % AH Remisol SS GFR/1.73 sq M.predicted among blacks MDRD (S/P/Bld) [Vol rate/Area] ml/min/1.73sqm Invalid Interpretation Code AH ADM SS GFR/1.73 sq M.predicted among non-blacks MDRD (S/P/Bld) [Vol rate/Area] ml/min/1.73sqm Invalid Interpretation Code AH ADM SS Glucose [Mass/Vol] 107 mg/dL Invalid Interpretation Code 82 - 115 mg/dL AH ADM SS Hematocrit (Bld) [Volume fraction] 42.4 % Invalid Interpretation Code 40.0 - 52.0 % AH Remisol SS Hemoglobin (Bld) [Mass/Vol] 14.4 G/dL Invalid Interpretation Code 13.0 - 17.5 G/dL AH Remisol SS Lymphocytes (Bld) [#/Vol] 0.70 103/mcL Invalid Interpretation Code 0.90 - 4.32 10^3/mcL AH Remisol SS Lymphocytes/100 WBC (Bld) 9.2 % Invalid Interpretation Code 20.0 - 40.0 % AH Remisol SS Magnesium [Mass/Vol] 2.2 mg/dL Invalid Interpretation Code 1.6 - 2.4 mg/dL AH ADM SS MCH (RBC) [Entitic mass] 30.5 pg Invalid Interpretation Code 27.0 - 33.0 pg AH Remisol SS MCHC (RBC) [Mass/Vol] 34.1 G/dL Invalid Interpretation Code 32.0 - 36.0 G/dL AH Remisol SS MCV (RBC) [Entitic vol] 89.6 fL Invalid Interpretation Code 81.0 - 100.0 fL AH Remisol SS Monocytes (Bld) [#/Vol] 1.20 103/mcL Invalid Interpretation Code 0.09 - 1.40 10^3/mcL AH Remisol SS Monocytes/100 WBC (Bld) 14.3 % Invalid Interpretation Code 2.0 - 13.0 % AH Remisol SS Neutrophils (Bld) [#/Vol] 6.00 103/mcL Invalid Interpretation Code 2.25 - 8.10 10^3/mcL AH Remisol SS Neutrophils/100 WBC (Bld) 74.5 % Invalid Interpretation Code 50.0 - 75.0 % AH Remisol SS Platelet mean volume (Bld) [Entitic vol] 8.3 fL Invalid Interpretation Code 6.4 - 10.5 fL AH Remisol SS Platelets (Bld) [#/Vol] 251 103/mcL Invalid Interpretation Code 150 - 450 10^3/mcL AH Remisol SS Potassium [Moles/Vol] 3.7 mmol/L Invalid Interpretation Code 3.5 - 5.0 mEq/L AH ADM SS RBC (Bld) [#/Vol] 4.73 106/mcL Invalid Interpretation Code 4.50 - 6.00 10^6/mcL AH Remisol SS Sodium [Moles/Vol] 137 mmol/L Invalid Interpretation Code 136 - 145 mEq/L AH ADM SS Urea nitrogen [Mass/Vol] 18.0 mg/dL Invalid Interpretation Code 8.0 - 22.0 mg/dL AH ADM SS Urea nitrogen/Creatinine [Mass ratio] 24.3 ratio Invalid Interpretation Code 10.0 - 22.0 ratio AH ADM SS WBC (Bld) [#/Vol] 8.10 103/mcL Invalid Interpretation Code 4.50 - 10.80 10^3/mcL AH Remisol SS LABORATORYOrdered By: Cedric Alvares on 10-20-2021 Calcium.ionized (Bld) [Mass/Vol] 1.08 mmol/L Invalid Interpretation Code 1.12 - 1.32 mmol/L AH Auto Chem SS LABORATORYOrdered By: Lamin Robles on 10-20-2021 INR Coag (PPP) [Relative time] 3.2 {INR} Invalid Interpretation Code AH Auto Coag SS PT Coag (PPP) [Time] 39.6 s Invalid Interpretation Code 9.0 - 14.9 seconds AH Auto Coag SS MGon 10-20-2021 Magnesium [Mass/Vol] 2.2 mg/dL Normal 1.6-2.4 [facility] ([place]) Comment on above: Performed By: #### M G, CAITY, ANEU, GFR, CBC, BMP, ADIFF ####[place] [address] PROon 10-20-2021 INR Coag (PPP) [Relative time] 3.2 {INR} Normal [facility] ([place]) Comment on above: Order Comment: order ed secondary to warfarin order Result Comment: [employer] [place] [employer] (CHEST, 1992, 102:312S-25S)recommended therapeutic range for oral anticoagulant therapy is:LOW RISK: Prophylaxis of venous thrombosis INR: 2.0-3.0 Treatment of pulmonary embolism 2.0-3.0 Prevention of systemic embolism 2.0-3.0HIGH RISK: Mechanical prosthetic valves 2.5-3.5 Performed By: #### P RO ####[place] [address] PT Coag (PPP) [Time] 39.6 s High 9.0-14.9 [facility] ([place]) Comment on above: Order Comment: order ed secondary to warfarin order Result Comment: Effe ctive 03/03/08, Protime results may be affected by some antibiotics (i.e. Ciprofloxacin, Azithromycin, Bactrim) which may potentiate the action of oral anticoagulants, with further increases in Protime/INR. Performed By: #### P RO ####[place] [address] .Auto Diffon 10-19-2021 Basophil, Absolute 0.00 10 3/mcL Normal 0.00-0.27 [facility] ([place]) Comment on above: Performed By: #### M G, ADIFF, BMP, APTT, GFR, ANEU, CAION, CBC ####[place] [address] Basophils/100 WBC (Bld) 0.5 % Normal 0.0-2.5 [facility] ([place]) Comment on above: Performed By: #### M G, ADIFF, BMP, APTT, GFR, ANEU, CAION, CBC ####[place] [address] Eosinophil, Absolute 0.10 10 3/mcL Normal 0.00-0.65 [facility] ([place]) Comment on above: Performed By: #### M G, ADIFF, BMP, APTT, GFR, ANEU, CAION, CBC ####[address] [address] [address] Eosinophils/100 WBC (Bld) 1.4 % Normal 0.0-6.0 [facility] ([place]) Comment on above: Performed By: #### M G, ADIFF, BMP, APTT, GFR, ANEU, CAION, CBC ####[address] [address] Lymphocyte, Absolute 0.70 10 3/mcL Low 0.90-4.32 A [facility], [facility] ([place]) Comment on above: Performed By: #### M G, ADIFF, BMP, APTT, GFR, ANEU, CAION, CBC ####[address] [address] Lymphocytes/100 WBC (Bld) 8.2 % Low 20.0-40.0 [facility] ([place]) Comment on above: Performed By: #### M G, ADIFF, BMP, APTT, GFR, ANEU, CAION, CBC ####[address] [address] Monocyte, Absolute 1.20 10 3/mcL Normal 0.09-1.40 [facility] ([place]) Comment on above: Performed By: #### M G, ADIFF, BMP, APTT, GFR, ANEU, CAION, CBC ####[address] [address] Monocytes/100 WBC (Bld) 13.7 % High 2.0-13.0 [facility] ([place]) Comment on above: Performed By: #### M G, ADIFF, BMP, APTT, GFR, ANEU, CAION, CBC ####[address] [address] Neutrophils/100 WBC (Bld) 76.2 % High 50.0-75.0 [facility] ([place]) Comment on above: Performed By: #### M G, ADIFF, BMP, APTT, GFR, ANEU, CAION, CBC ####[address] [address] .GFRon 10-19-2021 GFR >60 Normal [facility] ([place]) Comment on above: Result Comment: GFR Population mean for , Non- Americans Ages 20-29 = 116 mL/min/1.73 sq.m. Ages 30-39 = 107 mL/min/1.73 sq.m. Ages 40-49 = 99 mL/min/1.73 sq.m. Ages 50-59 = 93 mL/min/1.73 sq.m. Ages 60-69 = 85 mL/min/1.73 sq.m. Ages 70+ = 75 mL/min/1.73 sq.m.Chronic Kidney Disease: Less than 60 mL/min/1.73 square metersEnd Stage Renal Disease: Less than 15 mL/min/1.73 square meters Performed By: #### M G, ADIFF, BMP, APTT, GFR, ANEU, CAION, CBC ####[place] [address] GFR Non- >60 Normal [facility] ([place]) Comment on above: Result Comment: GFR Population mean for , Non- Americans Ages 20-29 = 116 mL/min/1.73 sq.m. Ages 30-39 = 107 mL/min/1.73 sq.m. Ages 40-49 = 99 mL/min/1.73 sq.m. Ages 50-59 = 93 mL/min/1.73 sq.m. Ages 60-69 = 85 mL/min/1.73 sq.m. Ages 70+ = 75 mL/min/1.73 sq.m.Chronic Kidney Disease: Less than 60 mL/min/1.73 square metersEnd Stage Renal Disease: Less than 15 mL/min/1.73 square meters Performed By: #### M G, ADIFF, BMP, APTT, GFR, ANEU, CAION, CBC ####[place] [address] .NEUABSon 10-19-2021 Neutrophil, Absolute 6.90 10 3/mcL Normal 2.25-8.10 A [facility], [facility] ([place]) Comment on above: Performed By: #### M G, ADIFF, BMP, APTT, GFR, ANEU, CAION, CBC ####[place] [address] APTTon 10-19-2021 aPTT Coag (Bld) [Time] 73.2 s High 25.0-35.0 [facility] ([place]) Comment on above: Result Comment: For Heparin anticoagulation therapy, the recommendedtherapeutic range is: 54-77 seconds (APTT Correlationwith Anti-Xa therapeutic range of 0.3-0.7 units/ml).PLEASE REFERENCE THE PHARMACY PROTOCOL FOR DOSING. Performed By: #### A PTT ####[place] [address] Heparin dose (APTT) Heparin IV Normal [facility] ([place]) Comment on above: Performed By: #### A PTT ####[place] [address] aPTT Coag (Bld) [Time] 80.7 s High 25.0-35.0 [facility] ([place]) Comment on above: Result Comment: For Heparin anticoagulation therapy, the recommendedtherapeutic range is: 54-77 seconds (APTT Correlationwith Anti-Xa therapeutic range of 0.3-0.7 units/ml).PLEASE REFERENCE THE PHARMACY PROTOCOL FOR DOSING. Performed By: #### M G, ADIFF, BMP, APTT, GFR, ANEU, CAION, CBC ####[place] [address] Heparin dose (APTT) Heparin IV [facility] ([place]) Comment on above: Performed By: #### M G, ADIFF, BMP, APTT, GFR, ANEU, CAION, CBC ####[place] [id number] aPTT Coag (Bld) [Time] 76.0 s High 25.0-35.0 [facility] ([place]) Comment on above: Result Comment: For Heparin anticoagulation therapy, the recommendedtherapeutic range is: 54-77 seconds (APTT Correlationwith Anti-Xa therapeutic range of 0.3-0.7 units/ml).PLEASE REFERENCE THE PHARMACY PROTOCOL FOR DOSING. Performed By: #### A PTT ####[place] [address] Heparin dose (APTT) Heparin IV [facility] ([place]) Comment on above: Performed By: #### A PTT ####[address] [address] aPTT Coag (Bld) [Time] 81.4 s High 25.0-35.0 [facility] ([place]) Comment on above: Result Comment: For Heparin anticoagulation therapy, the recommendedtherapeutic range is: 54-77 seconds (APTT Correlationwith Anti-Xa therapeutic range of 0.3-0.7 units/ml).PLEASE REFERENCE THE PHARMACY PROTOCOL FOR DOSING. Performed By: #### A PTT ####[address] [address] Heparin dose (APTT) Heparin IV Normal [facility] ([place]) Comment on above: Performed By: #### A PTT ####[place] [id number] BMPon 10-19-2021 BUN/Creatinine Ratio 25.0 ratio High 10.0-22.0 [facility] ([place]) Comment on above: Performed By: #### M G, ADIFF, BMP, APTT, GFR, ANEU, CAION, CBC ####[address] [address] Calcium [Mass/Vol] 9.5 mg/dL Normal 8.4-10.1 [facility] ([place]) Comment on above: Result Comment: No te - New Reference Range in effect 20 Performed By: #### M G, ADIFF, BMP, APTT, GFR, ANEU, CAION, CBC ####[address] [address] Chloride [Moles/Vol] 97 mmol/L Low 98-110 [facility] ([place]) Comment on above: Performed By: #### M G, ADIFF, BMP, APTT, GFR, ANEU, CAION, CBC ####[address] [address] CO2 [Moles/Vol] 33 mmol/L High 22-32 [facility] ([place]) Comment on above: Performed By: #### M G, ADIFF, BMP, APTT, GFR, ANEU, CAION, CBC ####[place] [id number] Creatinine [Mass/Vol] 0.84 mg/dL Normal 0.60-1.40 [facility] ([place]) Comment on above: Performed By: #### M G, ADIFF, BMP, APTT, GFR, ANEU, CAION, CBC ####[place] [address] Electrolyte Balance 6.0 mEq/L Normal 4.0-15.0 [facility] ([place]) Comment on above: Performed By: #### M G, ADIFF, BMP, APTT, GFR, ANEU, CAION, CBC ####[place] [address] Glucose [Mass/Vol] 109 mg/dL Normal 82-115 [facility] ([place]) Comment on above: Performed By: #### M G, ADIFF, BMP, APTT, GFR, ANEU, CAION, CBC ####[place] [address] Potassium [Moles/Vol] 4.3 mmol/L Normal 3.5-5.0 [facility] ([place]) Comment on above: Performed By: #### M G, ADIFF, BMP, APTT, GFR, ANEU, CAION, CBC ####[place] [id number] Sodium [Moles/Vol] 136 mmol/L Normal 136-145 [facility] ([place]) Comment on above: Performed By: #### M G, ADIFF, BMP, APTT, GFR, ANEU, CAION, CBC ####[place] [address] Urea nitrogen [Mass/Vol] 21.0 mg/dL Normal 8.0-22.0 [facility] ([place]) Comment on above: Performed By: #### M G, ADIFF, BMP, APTT, GFR, ANEU, CAION, CBC ####[place] [address] CAIONon 10-19-2021 Calcium Ionized 1.07 mmol/L Low 1.12-1.32 [facility] ([place]) Comment on above: Performed By: #### M G, ADIFF, BMP, APTT, GFR, ANEU, CAION, CBC ####[place] [address] CBCon 10-19-2021 Erythrocyte distribution width (RBC) [Ratio] 13.8 % Normal 11.5-15.5 [facility] ([place]) Comment on above: Performed By: #### M G, ADIFF, BMP, APTT, GFR, ANEU, CAION, CBC ####[place] [address] Hematocrit (Bld) [Volume fraction] 45.1 % Normal 40.0-52.0 [facility] ([place]) Comment on above: Performed By: #### M G, ADIFF, BMP, APTT, GFR, ANEU, CAION, CBC ####[place] [address] Hgb 15.2 G/dL Normal 13.0-17.5 [facility] ([place]) Comment on above: Performed By: #### M G, ADIFF, BMP, APTT, GFR, ANEU, CAION, CBC ####[place] [address] MCH (RBC) [Entitic mass] 30.4 pg Normal 27.0-33.0 [facility] ([place]) Comment on above: Performed By: #### M G, ADIFF, BMP, APTT, GFR, ANEU, CAION, CBC ####[place] [address] MCHC 33.6 G/dL Normal 32.0-36.0 [facility] ([place]) Comment on above: Performed By: #### M G, ADIFF, BMP, APTT, GFR, ANEU, CAION, CBC ####[place] [address] MCV (RBC) [Entitic vol] 90.6 fL Normal 81.0-100.0 [facility] ([place]) Comment on above: Performed By: #### M G, ADIFF, BMP, APTT, GFR, ANEU, CAION, CBC ####[address] [address] Platelet 234 10 3/mcL Normal 150-450 [facility] ([place]) Comment on above: Performed By: #### M G, ADIFF, BMP, APTT, GFR, ANEU, CAION, CBC ####[address] [address] Platelet mean volume (Bld) [Entitic vol] 8.3 fL Normal 6.4-10.5 [facility] ([place]) Comment on above: Performed By: #### M G, ADIFF, BMP, APTT, GFR, ANEU, CAION, CBC ####[address] [address] RBC 4.98 10 6/mcL Normal 4.50-6.00 [facility] ([place]) Comment on above: Performed By: #### M G, ADIFF, BMP, APTT, GFR, ANEU, CAION, CBC ####[address] [address] WBC 9.10 10 3/mcL Normal 4.50-10.80 [facility] ([place]) Comment on above: Performed By: #### M G, ADIFF, BMP, APTT, GFR, ANEU, CAION, CBC ####[address] [address] LABORATORYOrdered By: Chuy Jasso on 10-19-2021 aPTT Coag (PPP) [Time] 73.2 s Invalid Interpretation Code 25.0 - 35.0 seconds AH Auto Coag SS Heparin dose (APTT) Heparin IV (10/19/21 9:21 AM) Invalid Interpretation Code AH Auto Coag SS LABORATORYOrdered By: Dilcia Garcia on 10-19-2021 aPTT Coag (PPP) [Time] 80.7 s Invalid Interpretation Code 25.0 - 35.0 seconds AH Auto Coag SS Heparin dose (APTT) Heparin IV (10/19/21 4:07 AM) Invalid Interpretation Code AH Auto Coag SS INR Coag (PPP) [Relative time] 2.4 {INR} Invalid Interpretation Code AH Auto Coag SS PT Coag (PPP) [Time] 28.5 s Invalid Interpretation Code 9.0 - 14.9 seconds AH Auto Coag SS LABORATORYOrdered By: SYSTEM SYSTEM on 10-19-2021 Base excess Calc (BldMV) [Moles/Vol] 6.0 mEq/L Invalid Interpretation Code 4.0 - 15.0 mEq/L AH ADM SS Basophils (Bld) [#/Vol] 0.00 103/mcL Invalid Interpretation Code 0.00 - 0.27 10^3/mcL AH Remisol SS Basophils/100 WBC (Bld) 0.5 % Invalid Interpretation Code 0.0 - 2.5 % AH Remisol SS Calcium [Mass/Vol] 9.5 mg/dL Invalid Interpretation Code 8.4 - 10.1 mg/dL AH ADM SS Chloride [Moles/Vol] 97 mmol/L Invalid Interpretation Code 98 - 110 mEq/L AH ADM SS CO2 [Moles/Vol] 33 mmol/L Invalid Interpretation Code 22 - 32 mEq/L AH ADM SS Creatinine [Mass/Vol] 0.84 mg/dL Invalid Interpretation Code 0.60 - 1.40 mg/dL AH ADM SS Eosinophils (Bld) [#/Vol] 0.10 103/mcL Invalid Interpretation Code 0.00 - 0.65 10^3/mcL AH Remisol SS Eosinophils/100 WBC (Bld) 1.4 % Invalid Interpretation Code 0.0 - 6.0 % AH Remisol SS Erythrocyte distribution width (RBC) [Ratio] 13.8 % Invalid Interpretation Code 11.5 - 15.5 % AH Remisol SS GFR/1.73 sq M.predicted among blacks MDRD (S/P/Bld) [Vol rate/Area] ml/min/1.73sqm Invalid Interpretation Code AH ADM SS GFR/1.73 sq M.predicted among non-blacks MDRD (S/P/Bld) [Vol rate/Area] ml/min/1.73sqm Invalid Interpretation Code AH ADM SS Glucose [Mass/Vol] 109 mg/dL Invalid Interpretation Code 82 - 115 mg/dL AH ADM SS Hematocrit (Bld) [Volume fraction] 45.1 % Invalid Interpretation Code 40.0 - 52.0 % AH Remisol SS Hemoglobin (Bld) [Mass/Vol] 15.2 G/dL Invalid Interpretation Code 13.0 - 17.5 G/dL AH Remisol SS Lymphocytes (Bld) [#/Vol] 0.70 103/mcL Invalid Interpretation Code 0.90 - 4.32 10^3/mcL AH Remisol SS Lymphocytes/100 WBC (Bld) 8.2 % Invalid Interpretation Code 20.0 - 40.0 % AH Remisol SS Magnesium [Mass/Vol] 2.2 mg/dL Invalid Interpretation Code 1.6 - 2.4 mg/dL AH ADM SS MCH (RBC) [Entitic mass] 30.4 pg Invalid Interpretation Code 27.0 - 33.0 pg AH Remisol SS MCHC (RBC) [Mass/Vol] 33.6 G/dL Invalid Interpretation Code 32.0 - 36.0 G/dL AH Remisol SS MCV (RBC) [Entitic vol] 90.6 fL Invalid Interpretation Code 81.0 - 100.0 fL AH Remisol SS Monocytes (Bld) [#/Vol] 1.20 103/mcL Invalid Interpretation Code 0.09 - 1.40 10^3/mcL AH Remisol SS Monocytes/100 WBC (Bld) 13.7 % Invalid Interpretation Code 2.0 - 13.0 % AH Remisol SS Neutrophils (Bld) [#/Vol] 6.90 103/mcL Invalid Interpretation Code 2.25 - 8.10 10^3/mcL AH Remisol SS Neutrophils/100 WBC (Bld) 76.2 % Invalid Interpretation Code 50.0 - 75.0 % AH Remisol SS Platelet mean volume (Bld) [Entitic vol] 8.3 fL Invalid Interpretation Code 6.4 - 10.5 fL AH Remisol SS Platelets (Bld) [#/Vol] 234 103/mcL Invalid Interpretation Code 150 - 450 10^3/mcL AH Remisol SS Potassium [Moles/Vol] 4.3 mmol/L Invalid Interpretation Code 3.5 - 5.0 mEq/L AH ADM SS RBC (Bld) [#/Vol] 4.98 106/mcL Invalid Interpretation Code 4.50 - 6.00 10^6/mcL AH Remisol SS Sodium [Moles/Vol] 136 mmol/L Invalid Interpretation Code 136 - 145 mEq/L AH ADM SS Urea nitrogen [Mass/Vol] 21.0 mg/dL Invalid Interpretation Code 8.0 - 22.0 mg/dL AH ADM SS Urea nitrogen/Creatinine [Mass ratio] 25.0 ratio Invalid Interpretation Code 10.0 - 22.0 ratio AH ADM SS WBC (Bld) [#/Vol] 9.10 103/mcL Invalid Interpretation Code 4.50 - 10.80 10^3/mcL Remisol SS LABORATORYOrdered By: Chan Maza on 10-19-2021 Calcium.ionized (Bld) [Mass/Vol] 1.07 mmol/L Invalid Interpretation Code 1.12 - 1.32 mmol/L Auto Chem SS MGon 10-19-2021 Magnesium [Mass/Vol] 2.2 mg/dL Normal 1.6-2.4 [facility] ([place]) Comment on above: Performed By: #### M G, ADIFF, BMP, APTT, GFR, ANEU, CAION, CBC ####[place] [address] PROon 10-19-2021 INR Coag (PPP) [Relative time] 2.4 {INR} Normal [facility] ([place]) Comment on above: Order Comment: order ed secondary to warfarin order Result Comment: [employer] (CHEST, 1992, [id number])recommended therapeutic range for oral anticoagulant therapy is:LOW RISK: Prophylaxis of venous thrombosis INR: 2.0-3.0 Treatment of pulmonary embolism 2.0-3.0 Prevention of systemic embolism 2.0-3.0HIGH RISK: Mechanical prosthetic valves 2.5-3.5 Performed By: #### P RO ####[place] [address] PT Coag (PPP) [Time] 28.5 s High 9.0-14.9 [facility] ([place]) Comment on above: Order Comment: order ed secondary to warfarin order Result Comment: Effe ctive 03/03/08, Protime results may be affected by some antibiotics (i.e. Ciprofloxacin, Azithromycin, Bactrim) which may potentiate the action of oral anticoagulants, with further increases in Protime/INR. Performed By: #### P RO ####[place] [address] .Auto Diffon 10-18-2021 Basophil, Absolute 0.00 10 3/mcL Normal 0.00-0.27 [facility] ([place]) Comment on above: Performed By: #### A PTT, CAION, CBC, GFR, MG, ANEU, ADIFF, BMP ####[address] [address] Basophils/100 WBC (Bld) 0.6 % Normal 0.0-2.5 [facility] ([place]) Comment on above: Performed By: #### A PTT, CAION, CBC, GFR, MG, ANEU, ADIFF, BMP ####[address] [address] Eosinophil, Absolute 0.10 10 3/mcL Normal 0.00-0.65 A [facility] ([place]) Comment on above: Performed By: #### A PTT, CAION, CBC, GFR, MG, ANEU, ADIFF, BMP ####[address] [address] Eosinophils/100 WBC (Bld) 1.1 % Normal 0.0-6.0 [facility] ([place]) Comment on above: Performed By: #### A PTT, CAION, CBC, GFR, MG, ANEU, ADIFF, BMP ####[address] [address] Lymphocyte, Absolute 0.70 10 3/mcL Low 0.90-4.32 A [facility] ([place]) Comment on above: Performed By: #### A PTT, CAION, CBC, GFR, MG, ANEU, ADIFF, BMP ####[address] [address] Lymphocytes/100 WBC (Bld) 8.7 % Low 20.0-40.0 [facility] ([place]) Comment on above: Performed By: #### A PTT, CAION, CBC, GFR, MG, ANEU, ADIFF, BMP ####[address] [address] Monocyte, Absolute 1.00 10 3/mcL Normal 0.09-1.40 [facility] ([place]) Comment on above: Performed By: #### A PTT, CAION, CBC, GFR, MG, ANEU, ADIFF, BMP ####[place] [id number] [address] [place] [address] Monocytes/100 WBC (Bld) 11.9 % Normal 2.0-13.0 [facility] ([place]) Comment on above: Performed By: #### A PTT, CAION, CBC, GFR, MG, ANEU, ADIFF, BMP ####[address] [address] Neutrophils/100 WBC (Bld) 77.7 % High 50.0-75.0 [facility] ([place]) Comment on above: Performed By: #### A PTT, CAION, CBC, GFR, MG, ANEU, ADIFF, BMP ####[address] [address] .GFRon 10-18-2021 GFR Non- >60 Normal [facility] ([place]) Comment on above: Result Comment: GFR Population mean for , Non- Americans Ages 20-29 = 116 mL/min/1.73 sq.m. Ages 30-39 = 107 mL/min/1.73 sq.m. Ages 40-49 = 99 mL/min/1.73 sq.m. Ages 50-59 = 93 mL/min/1.73 sq.m. Ages 60-69 = 85 mL/min/1.73 sq.m. Ages 70+ = 75 mL/min/1.73 sq.m.Chronic Kidney Disease: Less than 60 mL/min/1.73 square metersEnd Stage Renal Disease: Less than 15 mL/min/1.73 square meters Performed By: #### A PTT, CAION, CBC, GFR, MG, ANEU, ADIFF, BMP ####[address] [address] GFR >60 Normal [facility] ([place]) Comment on above: Result Comment: GFR Population mean for , Non- Americans Ages 20-29 = 116 mL/min/1.73 sq.m. Ages 30-39 = 107 mL/min/1.73 sq.m. Ages 40-49 = 99 mL/min/1.73 sq.m. Ages 50-59 = 93 mL/min/1.73 sq.m. Ages 60-69 = 85 mL/min/1.73 sq.m. Ages 70+ = 75 mL/min/1.73 sq.m.Chronic Kidney Disease: Less than 60 mL/min/1.73 square metersEnd Stage Renal Disease: Less than 15 mL/min/1.73 square meters Performed By: #### A PTT, CAION, CBC, GFR, MG, ANEU, ADIFF, BMP ####[place] [address] .NEUABSon 10-18-2021 Neutrophil, Absolute 6.30 10 3/mcL Normal 2.25-8.10 A [facility] ([place]) Comment on above: Performed By: #### A PTT, CAION, CBC, GFR, MG, ANEU, ADIFF, BMP ####[place] [address] APTTon 10-18-2021 aPTT Coag (Bld) [Time] 73.3 s High 25.0-35.0 [facility] ([place]) Comment on above: Result Comment: For Heparin anticoagulation therapy, the recommendedtherapeutic range is: 54-77 seconds (APTT Correlationwith Anti-Xa therapeutic range of 0.3-0.7 units/ml).PLEASE REFERENCE THE PHARMACY PROTOCOL FOR DOSING. Performed By: #### A PTT ####[place] [address] Heparin dose (APTT) Heparin IV Normal [facility] ([place]) Comment on above: Performed By: #### A PTT ####[place] [address] aPTT Coag (Bld) [Time] 72.2 s High 25.0-35.0 [facility] ([place]) Comment on above: Result Comment: For Heparin anticoagulation therapy, the recommendedtherapeutic range is: 54-77 seconds (APTT Correlationwith Anti-Xa therapeutic range of 0.3-0.7 units/ml).PLEASE REFERENCE THE PHARMACY PROTOCOL FOR DOSING. Performed By: #### A PTT, CAION, CBC, GFR, MG, ANEU, ADIFF, BMP ####[place] [address] Heparin dose (APTT) Heparin IV Normal [facility] ([place]) Comment on above: Performed By: #### A PTT, CAION, CBC, GFR, MG, ANEU, ADIFF, BMP ####[address] [address] BMPon 10-18-2021 BUN/Creatinine Ratio 24.4 ratio High 10.0-22.0 [facility] ([place]) Comment on above: Performed By: #### A PTT, CAION, CBC, GFR, MG, ANEU, ADIFF, BMP ####[place] [address] Calcium [Mass/Vol] 9.2 mg/dL Normal 8.4-10.1 [facility] ([place]) Comment on above: Result Comment: No te - New Reference Range in effect 20 Performed By: #### A PTT, CAION, CBC, GFR, MG, ANEU, ADIFF, BMP ####[place] [address] Chloride [Moles/Vol] 96 mmol/L Low 98-110 [facility] ([place]) Comment on above: Performed By: #### A PTT, CAION, CBC, GFR, MG, ANEU, ADIFF, BMP ####[place] [address] CO2 [Moles/Vol] 34 mmol/L High 22-32 [facility] ([place]) Comment on above: Performed By: #### A PTT, CAION, CBC, GFR, MG, ANEU, ADIFF, BMP ####[place] [address] Creatinine [Mass/Vol] 0.82 mg/dL Normal 0.60-1.40 [facility] ([place]) Comment on above: Performed By: #### A PTT, CAION, CBC, GFR, MG, ANEU, ADIFF, BMP ####[place] [id number] Electrolyte Balance 6.0 mEq/L Normal 4.0-15.0 [facility] ([place]) Comment on above: Performed By: #### A PTT, CAION, CBC, GFR, MG, ANEU, ADIFF, BMP ####[place] [id number] Glucose [Mass/Vol] 130 mg/dL High 82-115 [facility] ([place]) Comment on above: Performed By: #### A PTT, CAION, CBC, GFR, MG, ANEU, ADIFF, BMP ####[place] [id number] Potassium [Moles/Vol] 3.6 mmol/L Normal 3.5-5.0 [facility] ([place]) Comment on above: Performed By: #### A PTT, CAION, CBC, GFR, MG, ANEU, ADIFF, BMP ####[place] [address] Sodium [Moles/Vol] 136 mmol/L Normal 136-145 [facility] ([place]) Comment on above: Performed By: #### A PTT, CAION, CBC, GFR, MG, ANEU, ADIFF, BMP ####[place] [address] Urea nitrogen [Mass/Vol] 20.0 mg/dL Normal 8.0-22.0 [facility] ([place]) Comment on above: Performed By: #### A PTT, CAION, CBC, GFR, MG, ANEU, ADIFF, BMP ####[place] [address] CAIONon 10-18-2021 Calcium Ionized 1.11 mmol/L Low 1.12-1.32 [facility] ([place]) Comment on above: Performed By: #### A PTT, CAION, CBC, GFR, MG, ANEU, ADIFF, BMP ####[place] [address] CBCon 10-18-2021 Erythrocyte distribution width (RBC) [Ratio] 13.7 % Normal 11.5-15.5 [facility] ([place]) Comment on above: Performed By: #### A PTT, CAION, CBC, GFR, MG, ANEU, ADIFF, BMP ####[place] [address] Hematocrit (Bld) [Volume fraction] 45.6 % Normal 40.0-52.0 [facility] ([place]) Comment on above: Performed By: #### A PTT, CAION, CBC, GFR, MG, ANEU, ADIFF, BMP ####[place] [address] Hgb 15.3 G/dL Normal 13.0-17.5 [facility] ([place]) Comment on above: Performed By: #### A PTT, CAION, CBC, GFR, MG, ANEU, ADIFF, BMP ####[place] [address] MCH (RBC) [Entitic mass] 30.6 pg Normal 27.0-33.0 [facility] ([place]) Comment on above: Performed By: #### A PTT, CAION, CBC, GFR, MG, ANEU, ADIFF, BMP ####[place] [address] MCHC 33.6 G/dL Normal 32.0-36.0 [facility] ([place]) Comment on above: Performed By: #### A PTT, CAION, CBC, GFR, MG, ANEU, ADIFF, BMP ####[place] [address] MCV (RBC) [Entitic vol] 90.9 fL Normal 81.0-100.0 [facility] ([place]) Comment on above: Performed By: #### A PTT, CAION, CBC, GFR, MG, ANEU, ADIFF, BMP ####[place] [address] Platelet 220 10 3/mcL Normal 150-450 [facility] ([place]) Comment on above: Performed By: #### A PTT, CAION, CBC, GFR, MG, ANEU, ADIFF, BMP ####[place] [address] Platelet mean volume (Bld) [Entitic vol] 9.1 fL Normal 6.4-10.5 [facility] ([place]) Comment on above: Performed By: #### A PTT, CAION, CBC, GFR, MG, ANEU, ADIFF, BMP ####[address] [address] RBC 5.02 10 6/mcL Normal 4.50-6.00 [facility] ([place]) Comment on above: Performed By: #### A PTT, CAION, CBC, GFR, MG, ANEU, ADIFF, BMP ####[place] [id number] [place] [address] WBC 8.20 10 3/mcL Normal 4.50-10.80 [facility] ([place]) Comment on above: Performed By: #### A PTT, CAION, CBC, GFR, MG, ANEU, ADIFF, BMP ####[address] [address] LABORATORYOrdered By: Dilcia Garcia on 10-18-2021 aPTT Coag (PPP) [Time] 76.0 s Invalid Interpretation Code 25.0 - 35.0 seconds AH Auto Coag SS Heparin dose (APTT) Heparin IV (10/18/21 11:17 PM) Invalid Interpretation Code AH Auto Coag SS LABORATORYOrdered By: SYSTEM SYSTEM on 10-18-2021 Natriuretic peptide.B prohormone N-Terminal [Mass/Vol] 536 pg/mL Invalid Interpretation Code 0 - 1800 pg/mL AH ADM SS LABORATORYOrdered By: Alejandro Stiles on 10-18-2021 Blood Glucose Testing Reason Routine (10/18/21 11:09 AM) [facility] Glucose [Mass/Vol] 133 mg/dL Invalid Interpretation Code 82 - 115 mg/dL [facility] MGon 10-18-2021 Magnesium [Mass/Vol] 2.0 mg/dL Normal 1.6-2.4 [facility] ([place]) Comment on above: Performed By: #### A PTT, CAION, CBC, GFR, MG, ANEU, ADIFF, BMP ####[address] [address] PBNPon 10-18-2021 Natriuretic peptide B (Bld) [Mass/Vol] 536 pg/mL Normal 0-1800 [facility] ([place]) Comment on above: Result Comment: NT-p roBNP results of less than 300 pg/mL effectivelyrules out acute congestive heart failure with 99% negative predictive value. Performed By: #### P BNP ####[address] [id number] PROon 10-18-2021 INR Coag (PPP) [Relative time] 2.2 {INR} Normal [facility] ([place]) Comment on above: Order Comment: order ed secondary to warfarin order Result Comment: [employer] (CHEST, 1992, [id number])recommended therapeutic range for oral anticoagulant therapy is:LOW RISK: Prophylaxis of venous thrombosis INR: 2.0-3.0 Treatment of pulmonary embolism 2.0-3.0 Prevention of systemic embolism 2.0-3.0HIGH RISK: Mechanical prosthetic valves 2.5-3.5 Performed By: #### P RO ####[address] [address] PT Coag (PPP) [Time] 26.6 s High 9.0-14.9 [facility] ([place]) Comment on above: Order Comment: order ed secondary to warfarin order Result Comment: Effe ctive 03/03/08, Protime results may be affected by some antibiotics (i.e. Ciprofloxacin, Azithromycin, Bactrim) which may potentiate the action of oral anticoagulants, with further increases in Protime/INR. Performed By: #### P RO ####[address] [address] XR CHEST 1 VIEWon 10-18-2021 XR CHEST 1 VIEW Normal [facility] ([place]) .Auto Diffon 10-17-2021 Basophil, Absolute 0.00 10 3/mcL Normal 0.00-0.27 [facility] ([place]) Comment on above: Performed By: #### G FR, ANEU, CBC, MG, CAION, BMP, ADIFF ####[address] [address] Basophils/100 WBC (Bld) 0.3 % Normal 0.0-2.5 [facility] ([place]) Comment on above: Performed By: #### G FR, ANEU, CBC, MG, CAION, BMP, ADIFF ####[address] [address] Eosinophil, Absolute 0.10 10 3/mcL Normal 0.00-0.65 [facility] ([place]) Comment on above: Performed By: #### G FR, ANEU, CBC, MG, CAION, BMP, ADIFF ####[address] [address] Eosinophils/100 WBC (Bld) 1.4 % Normal 0.0-6.0 [facility] ([place]) Comment on above: Performed By: #### G FR, ANEU, CBC, MG, CAION, BMP, ADIFF ####[address] [address] Lymphocyte, Absolute 0.60 10 3/mcL Low 0.90-4.32 [facility] ([place]) Comment on above: Performed By: #### G FR, ANEU, CBC, MG, CAION, BMP, ADIFF ####[address] [address] Lymphocytes/100 WBC (Bld) 8.4 % Low 20.0-40.0 [facility] ([place]) Comment on above: Performed By: #### G FR, ANEU, CBC, MG, CAION, BMP, ADIFF ####[address] [address] Monocyte, Absolute 0.90 10 3/mcL Normal 0.09-1.40 [facility] ([place]) Comment on above: Performed By: #### G FR, ANEU, CBC, MG, CAION, BMP, ADIFF ####[address] [address] Monocytes/100 WBC (Bld) 11.4 % Normal 2.0-13.0 [facility] ([place]) Comment on above: Performed By: #### G FR, ANEU, CBC, MG, CAION, BMP, ADIFF ####[address] [address] Neutrophils/100 WBC (Bld) 78.5 % High 50.0-75.0 [facility] ([place]) Comment on above: Performed By: #### G FR, ANEU, CBC, MG, CAION, BMP, ADIFF ####[address] [address] .GFRon 10-17-2021 GFR >60 Normal [facility] ([place]) Comment on above: Result Comment: GFR Population mean for , Non- Americans Ages 20-29 = 116 mL/min/1.73 sq.m. Ages 30-39 = 107 mL/min/1.73 sq.m. Ages 40-49 = 99 mL/min/1.73 sq.m. Ages 50-59 = 93 mL/min/1.73 sq.m. Ages 60-69 = 85 mL/min/1.73 sq.m. Ages 70+ = 75 mL/min/1.73 sq.m.Chronic Kidney Disease: Less than 60 mL/min/1.73 square metersEnd Stage Renal Disease: Less than 15 mL/min/1.73 square meters Performed By: #### G FR, ANEU, CBC, MG, CAION, BMP, ADIFF ####[place] [address] GFR Non- >60 Normal [facility] ([place]) Comment on above: Result Comment: GFR Population mean for , Non- Americans Ages 20-29 = 116 mL/min/1.73 sq.m. Ages 30-39 = 107 mL/min/1.73 sq.m. Ages 40-49 = 99 mL/min/1.73 sq.m. Ages 50-59 = 93 mL/min/1.73 sq.m. Ages 60-69 = 85 mL/min/1.73 sq.m. Ages 70+ = 75 mL/min/1.73 sq.m.Chronic Kidney Disease: Less than 60 mL/min/1.73 square metersEnd Stage Renal Disease: Less than 15 mL/min/1.73 square meters Performed By: #### G FR, ANEU, CBC, MG, CAION, BMP, ADIFF ####[place] [address] .NEUABSon 10-17-2021 Neutrophil, Absolute 5.90 10 3/mcL Normal 2.25-8.10 A [facility] ([place]) Comment on above: Performed By: #### G FR, ANEU, CBC, MG, CAION, BMP, ADIFF ####[place] [id number] APTTon 10-17-2021 aPTT Coag (Bld) [Time] 66.4 s High 25.0-35.0 [facility] ([place]) Comment on above: Result Comment: For Heparin anticoagulation therapy, the recommendedtherapeutic range is: 54-77 seconds (APTT Correlationwith Anti-Xa therapeutic range of 0.3-0.7 units/ml).PLEASE REFERENCE THE PHARMACY PROTOCOL FOR DOSING. Performed By: #### A PTT ####[place] [address] Heparin dose (APTT) Heparin IV Normal [facility] ([place]) Comment on above: Performed By: #### A PTT ####[place] [address] BMPon 10-17-2021 BUN/Creatinine Ratio 21.2 ratio Normal 10.0-22.0 [facility] ([place]) Comment on above: Performed By: #### G FR, ANEU, CBC, MG, CAION, BMP, ADIFF ####[place] [id number] Calcium [Mass/Vol] 9.5 mg/dL Normal 8.4-10.1 [facility] ([place]) Comment on above: Result Comment: No te - New Reference Range in effect 20 Performed By: #### G FR, ANEU, CBC, MG, CAION, BMP, ADIFF ####[address] [address] Chloride [Moles/Vol] 101 mmol/L Normal 98-110 [facility] ([place]) Comment on above: Performed By: #### G FR, ANEU, CBC, MG, CAION, BMP, ADIFF ####[address] [address] CO2 [Moles/Vol] 30 mmol/L Normal 22-32 [facility] ([place]) Comment on above: Performed By: #### G FR, ANEU, CBC, MG, CAION, BMP, ADIFF ####[place] [address] Creatinine [Mass/Vol] 0.80 mg/dL Normal 0.60-1.40 [facility] ([place]) Comment on above: Performed By: #### G FR, ANEU, CBC, MG, CAION, BMP, ADIFF ####[place] [address] Electrolyte Balance 7.0 mEq/L Normal 4.0-15.0 [facility] ([place]) Comment on above: Performed By: #### G FR, ANEU, CBC, MG, CAION, BMP, ADIFF ####[place] [address] Glucose [Mass/Vol] 110 mg/dL Normal 82-115 [facility] ([place]) Comment on above: Performed By: #### G FR, ANEU, CBC, MG, CAION, BMP, ADIFF ####[place] [address] Potassium [Moles/Vol] 3.6 mmol/L Normal 3.5-5.0 [facility] ([place]) Comment on above: Performed By: #### G FR, ANEU, CBC, MG, CAION, BMP, ADIFF ####[place] [address] Sodium [Moles/Vol] 138 mmol/L Normal 136-145 [facility] ([place]) Comment on above: Performed By: #### G FR, ANEU, CBC, MG, CAION, BMP, ADIFF ####[place] [address] Urea nitrogen [Mass/Vol] 17.0 mg/dL Normal 8.0-22.0 [facility] ([place]) Comment on above: Performed By: #### G FR, ANEU, CBC, MG, CAION, BMP, ADIFF ####[address] [address] CAIONon 10-17-2021 Calcium Ionized 1.07 mmol/L Low 1.12-1.32 [facility] ([place]) Comment on above: Performed By: #### G FR, ANEU, CBC, MG, CAION, BMP, ADIFF ####[place] [address] CBCon 10-17-2021 Erythrocyte distribution width (RBC) [Ratio] 13.9 % Normal 11.5-15.5 [facility] ([place]) Comment on above: Performed By: #### G FR, ANEU, CBC, MG, CAION, BMP, ADIFF ####[place] [address] Hematocrit (Bld) [Volume fraction] 47.0 % Normal 40.0-52.0 [facility] ([place]) Comment on above: Performed By: #### G FR, ANEU, CBC, MG, CAION, BMP, ADIFF ####[place] [address] Hgb 16.0 G/dL Normal 13.0-17.5 [facility] ([place]) Comment on above: Performed By: #### G FR, ANEU, CBC, MG, CAION, BMP, ADIFF ####[place] [address] MCH (RBC) [Entitic mass] 31.0 pg Normal 27.0-33.0 [facility] ([place]) Comment on above: Performed By: #### G FR, ANEU, CBC, MG, CAION, BMP, ADIFF ####[place] [address] MCHC 34.1 G/dL Normal 32.0-36.0 [facility] ([place]) Comment on above: Performed By: #### G FR, ANEU, CBC, MG, CAION, BMP, ADIFF ####[place] [address] MCV (RBC) [Entitic vol] 90.9 fL Normal 81.0-100.0 [facility] ([place]) Comment on above: Performed By: #### G FR, ANEU, CBC, MG, CAION, BMP, ADIFF ####[place] [address] Platelet 220 10 3/mcL Normal 150-450 [facility] ([place]) Comment on above: Performed By: #### G FR, ANEU, CBC, MG, CAION, BMP, ADIFF ####[place] [address] Platelet mean volume (Bld) [Entitic vol] 9.0 fL Normal 6.4-10.5 [facility] ([place]) Comment on above: Performed By: #### G FR, ANEU, CBC, MG, CAION, BMP, ADIFF ####[place] [address] RBC 5.17 10 6/mcL Normal 4.50-6.00 [facility] ([place]) Comment on above: Performed By: #### G FR, ANEU, CBC, MG, CAION, BMP, ADIFF ####[place] [address] WBC 7.50 10 3/mcL Normal 4.50-10.80 [facility] ([place]) Comment on above: Performed By: #### G FR, ANEU, CBC, MG, CAION, BMP, ADIFF ####[place] [address] CT CORONARY ANGIO STRUCT + F UNCT W/+W/O CONTon 10-17-2021 CT CORONARY ANGIO STRUCT + FUNCT W/+W/O CONT Normal [facility] ([place]) MGon 10-17-2021 Magnesium [Mass/Vol] 2.3 mg/dL Normal 1.6-2.4 [facility]) Comment on above: Performed By: #### G FR, ANEU, CBC, MG, CAION, BMP, ADIFF ####[place] [address] MRI SPINE LUMBAR W/ + W/O CO NTRASTon 10-17-2021 MRI SPINE LUMBAR W/ + W/O CONTRAST Normal [facility] ([place]) MRI SPINE THORACIC W/ + W/O CONTRASTon 10-17-2021 MRI SPINE THORACIC W/ + W/O CONTRAST Normal [facility]) .Auto Diffon 10-16-2021 Basophil, Absolute 0.00 10 3/mcL Normal 0.00-0.27 [facility] ([place]) Comment on above: Performed By: #### C BC, MG, GFR, ADIFF, CAION, ANEU, BMP ####[address] [address] Basophils/100 WBC (Bld) 0.5 % Normal 0.0-2.5 [facility] ([place]) Comment on above: Performed By: #### C BC, MG, GFR, ADIFF, CAION, ANEU, BMP ####[address] [address] Eosinophil, Absolute 0.10 10 3/mcL Normal 0.00-0.65 A [facility] ([place]) Comment on above: Performed By: #### C BC, MG, GFR, ADIFF, CAION, ANEU, BMP ####[address] [address] Eosinophils/100 WBC (Bld) 1.7 % Normal 0.0-6.0 [facility] ([place]) Comment on above: Performed By: #### C BC, MG, GFR, ADIFF, CAION, ANEU, BMP ####[address] [address] Lymphocyte, Absolute 0.70 10 3/mcL Low 0.90-4.32 A [facility] ([place]) Comment on above: Performed By: #### C BC, MG, GFR, ADIFF, CAION, ANEU, BMP ####[address] [address] Lymphocytes/100 WBC (Bld) 8.2 % Low 20.0-40.0 [facility] ([place]) Comment on above: Performed By: #### C BC, MG, GFR, ADIFF, CAION, ANEU, BMP ####[address] [address] Monocyte, Absolute 0.90 10 3/mcL Normal 0.09-1.40 [facility] ([place]) Comment on above: Performed By: #### C BC, MG, GFR, ADIFF, CAION, ANEU, BMP ####[address] [address] Monocytes/100 WBC (Bld) 11.3 % Normal 2.0-13.0 [facility] ([place]) Comment on above: Performed By: #### C BC, MG, GFR, ADIFF, CAION, ANEU, BMP ####[address] [address] Neutrophils/100 WBC (Bld) 78.3 % High 50.0-75.0 [facility] ([place]) Comment on above: Performed By: #### C BC, MG, GFR, ADIFF, CAION, ANEU, BMP ####[address] [address] .GFRon 10-16-2021 GFR >60 Normal [facility] ([place]) Comment on above: Result Comment: GFR Population mean for , Non- Americans Ages 20-29 = 116 mL/min/1.73 sq.m. Ages 30-39 = 107 mL/min/1.73 sq.m. Ages 40-49 = 99 mL/min/1.73 sq.m. Ages 50-59 = 93 mL/min/1.73 sq.m. Ages 60-69 = 85 mL/min/1.73 sq.m. Ages 70+ = 75 mL/min/1.73 sq.m.Chronic Kidney Disease: Less than 60 mL/min/1.73 square metersEnd Stage Renal Disease: Less than 15 mL/min/1.73 square meters Performed By: #### C BC, MG, GFR, ADIFF, CAION, ANEU, BMP ####[address] [address] GFR Non- >60 Normal [facility] ([place]) Comment on above: Result Comment: GFR Population mean for , Non- Americans Ages 20-29 = 116 mL/min/1.73 sq.m. Ages 30-39 = 107 mL/min/1.73 sq.m. Ages 40-49 = 99 mL/min/1.73 sq.m. Ages 50-59 = 93 mL/min/1.73 sq.m. Ages 60-69 = 85 mL/min/1.73 sq.m. Ages 70+ = 75 mL/min/1.73 sq.m.Chronic Kidney Disease: Less than 60 mL/min/1.73 square metersEnd Stage Renal Disease: Less than 15 mL/min/1.73 square meters Performed By: #### C BC, MG, GFR, ADIFF, CAION, ANEU, BMP ####[place] [address] .NEUABSon 10-16-2021 Neutrophil, Absolute 6.40 10 3/mcL Normal 2.25-8.10 A [facility] ([place]) Comment on above: Performed By: #### C BC, MG, GFR, ADIFF, CAION, ANEU, BMP ####[place] [address] APTTon 10-16-2021 aPTT Coag (Bld) [Time] 65.4 s High 25.0-35.0 [facility] ([place]) Comment on above: Result Comment: For Heparin anticoagulation therapy, the recommendedtherapeutic range is: 54-77 seconds (APTT Correlationwith Anti-Xa therapeutic range of 0.3-0.7 units/ml).PLEASE REFERENCE THE PHARMACY PROTOCOL FOR DOSING. Performed By: #### A PTT ####[place] [address] Heparin dose (APTT) Heparin IV Normal [facility] ([place]) Comment on above: Performed By: #### A PTT ####[place] [address] BMP 10-16-2021 BUN/Creatinine Ratio 21.3 ratio Normal 10.0-22.0 [facility] ([place]) Comment on above: Performed By: #### C BC, MG, GFR, ADIFF, CAION, ANEU, BMP ####[place] [address] Calcium [Mass/Vol] 9.7 mg/dL Normal 8.4-10.1 [facility] ([place]) Comment on above: Result Comment: No te - New Reference Range in effect 20 Performed By: #### C BC, MG, GFR, ADIFF, CAION, ANEU, BMP ####[address] [address] Chloride [Moles/Vol] 104 mmol/L Normal 98-110 [facility] ([place]) Comment on above: Performed By: #### C BC, MG, GFR, ADIFF, CAION, ANEU, BMP ####[address] [address] CO2 [Moles/Vol] 28 mmol/L Normal 22-32 [facility] ([place]) Comment on above: Performed By: #### C BC, MG, GFR, ADIFF, CAION, ANEU, BMP ####[address] [address] Creatinine [Mass/Vol] 0.75 mg/dL Normal 0.60-1.40 [facility] ([place]) Comment on above: Performed By: #### C BC, MG, GFR, ADIFF, CAION, ANEU, BMP ####[place] [address] Electrolyte Balance 6.0 mEq/L Normal 4.0-15.0 [facility] ([place]) Comment on above: Performed By: #### C BC, MG, GFR, ADIFF, CAION, ANEU, BMP ####[place] [address] Glucose [Mass/Vol] 118 mg/dL High 82-115 [facility] ([place]) Comment on above: Performed By: #### C BC, MG, GFR, ADIFF, CAION, ANEU, BMP ####[place] [id number] Potassium [Moles/Vol] 3.9 mmol/L Normal 3.5-5.0 [facility] ([place]) Comment on above: Performed By: #### C BC, MG, GFR, ADIFF, CAION, ANEU, BMP ####[place] [id number] Sodium [Moles/Vol] 138 mmol/L Normal 136-145 [facility] ([place]) Comment on above: Performed By: #### C BC, MG, GFR, ADIFF, CAION, ANEU, BMP ####[place] [address] Urea nitrogen [Mass/Vol] 16.0 mg/dL Normal 8.0-22.0 [facility] ([place]) Comment on above: Performed By: #### C BC, MG, GFR, ADIFF, CAION, ANEU, BMP ####[place] [address] CAIONon 10-16-2021 Calcium Ionized 1.09 mmol/L Low 1.12-1.32 [facility] ([place]) Comment on above: Performed By: #### C BC, MG, GFR, ADIFF, CAION, ANEU, BMP ####[place] [address] CBCon 10-16-2021 Erythrocyte distribution width (RBC) [Ratio] 13.6 % Normal 11.5-15.5 [facility] ([place]) Comment on above: Performed By: #### C BC, MG, GFR, ADIFF, CAION, ANEU, BMP ####[place] [address] Hematocrit (Bld) [Volume fraction] 46.7 % Normal 40.0-52.0 [facility] ([place]) Comment on above: Performed By: #### C BC, MG, GFR, ADIFF, CAION, ANEU, BMP ####[place] [address] Hgb 15.7 G/dL Normal 13.0-17.5 [facility] ([place]) Comment on above: Performed By: #### C BC, MG, GFR, ADIFF, CAION, ANEU, BMP ####[place] [address] MCH (RBC) [Entitic mass] 30.5 pg Normal 27.0-33.0 [facility] ([place]) Comment on above: Performed By: #### C BC, MG, GFR, ADIFF, CAION, ANEU, BMP ####[place] [address] MCHC 33.6 G/dL Normal 32.0-36.0 [facility] ([place]) Comment on above: Performed By: #### C BC, MG, GFR, ADIFF, CAION, ANEU, BMP ####[place] [address] MCV (RBC) [Entitic vol] 90.7 fL Normal 81.0-100.0 [facility] ([place]) Comment on above: Performed By: #### C BC, MG, GFR, ADIFF, CAION, ANEU, BMP ####[place] [address] Platelet 207 10 3/mcL Normal 150-450 [facility] ([place]) Comment on above: Performed By: #### C BC, MG, GFR, ADIFF, CAION, ANEU, BMP ####[place] [address] Platelet mean volume (Bld) [Entitic vol] 8.0 fL Normal 6.4-10.5 [facility] ([place]) Comment on above: Performed By: #### C BC, MG, GFR, ADIFF, CAION, ANEU, BMP ####[place] [address] RBC 5.14 10 6/mcL Normal 4.50-6.00 [facility] ([place]) Comment on above: Performed By: #### C BC, MG, GFR, ADIFF, CAION, ANEU, BMP ####[place] [address] WBC 8.20 10 3/mcL Normal 4.50-10.80 [facility] ([place]) Comment on above: Performed By: #### C BC, MG, GFR, ADIFF, CAION, ANEU, BMP ####[place] [address] CBLon 10-16-2021 CBL Normal [facility] ([place]) CRPon 10-16-2021 C-Reactive Protein 3.2 mg/dL High 0.0-1.0 [facility] ([place]) Comment on above: Result Comment: No te - New Reference Range in effect 20 Performed By: #### C RP, ESR ####[address] [address] ESRon 10-16-2021 Erythrocyte Sed Rate 92 mm/hr High 0-20 [facility] ([place]) Comment on above: Performed By: #### C RP, ESR ####[place] [address] LABORATORYOrdered By: SYSTEM SYSTEM on 10-16-2021 CRP [Mass/Vol] 3.2 mg/dL Invalid Interpretation Code 0.0 - 1.0 mg/dL AH ADM SS LABORATORYOrdered By: Raina Castillo on 10-16-2021 ESR 15 minute reading (Bld) [Velocity] 92 mm/hr Invalid Interpretation Code 0 - 20 mm/hr AH Manual Heme SS Laboratory - Microbiology an d Antimicrobial susceptibilityon 10-16-2021 Bacteria identified Cx Nom (Bld) Culture has been received in lab and is no growth to date. Culture will be held for four weeks. [facility] MGon 10-16-2021 Magnesium [Mass/Vol] 2.1 mg/dL Normal 1.6-2.4 [facility] ([place]) Comment on above: Performed By: #### C BC, MG, GFR, ADIFF, CAION, ANEU, BMP ####[place] [address] .Auto Diffon 10-15-2021 Basophil, Absolute 0.00 10 3/mcL Normal 0.00-0.27 [facility] ([place]) Comment on above: Performed By: #### C BC, ANEU, ADIFF, MG, CMP, CAION, GFR ####[place] [address] Basophils/100 WBC (Bld) 0.4 % Normal 0.0-2.5 [facility] ([place]) Comment on above: Performed By: #### C BC, ANEU, ADIFF, MG, CMP, CAION, GFR ####[place] [address] Eosinophil, Absolute 0.10 10 3/mcL Normal 0.00-0.65 A [facility] ([place]) Comment on above: Performed By: #### C BC, ANEU, ADIFF, MG, CMP, CAION, GFR ####[address] [address] Eosinophils/100 WBC (Bld) 1.8 % Normal 0.0-6.0 [facility] ([place]) Comment on above: Performed By: #### C BC, ANEU, ADIFF, MG, CMP, CAION, GFR ####[address] [address] Lymphocyte, Absolute 0.90 10 3/mcL Normal 0.90-4.32 [facility] ([place]) Comment on above: Performed By: #### C BC, ANEU, ADIFF, MG, CMP, CAION, GFR ####[address] [address] Lymphocytes/100 WBC (Bld) 11.0 % Low 20.0-40.0 [facility] ([place]) Comment on above: Performed By: #### C BC, ANEU, ADIFF, MG, CMP, CAION, GFR ####[address] [address] Monocyte, Absolute 0.80 10 3/mcL Normal 0.09-1.40 [facility] ([place]) Comment on above: Performed By: #### C BC, ANEU, ADIFF, MG, CMP, CAION, GFR ####[address] [address] Monocytes/100 WBC (Bld) 10.9 % Normal 2.0-13.0 [facility] ([place]) Comment on above: Performed By: #### C BC, ANEU, ADIFF, MG, CMP, CAION, GFR ####[address] [address] Neutrophils/100 WBC (Bld) 75.9 % High 50.0-75.0 [facility] ([place]) Comment on above: Performed By: #### C BC, ANEU, ADIFF, MG, CMP, CAION, GFR ####[address] [address] .GFRon 10-15-2021 GFR >60 Normal [facility] ([place]) Comment on above: Result Comment: GFR Population mean for , Non- Americans Ages 20-29 = 116 mL/min/1.73 sq.m. Ages 30-39 = 107 mL/min/1.73 sq.m. Ages 40-49 = 99 mL/min/1.73 sq.m. Ages 50-59 = 93 mL/min/1.73 sq.m. Ages 60-69 = 85 mL/min/1.73 sq.m. Ages 70+ = 75 mL/min/1.73 sq.m.Chronic Kidney Disease: Less than 60 mL/min/1.73 square metersEnd Stage Renal Disease: Less than 15 mL/min/1.73 square meters Performed By: #### C BC, ANEU, ADIFF, MG, CMP, CAION, GFR ####[place] [address] GFR Non- >60 Normal [facility] ([place]) Comment on above: Result Comment: GFR Population mean for , Non- Americans Ages 20-29 = 116 mL/min/1.73 sq.m. Ages 30-39 = 107 mL/min/1.73 sq.m. Ages 40-49 = 99 mL/min/1.73 sq.m. Ages 50-59 = 93 mL/min/1.73 sq.m. Ages 60-69 = 85 mL/min/1.73 sq.m. Ages 70+ = 75 mL/min/1.73 sq.m.Chronic Kidney Disease: Less than 60 mL/min/1.73 square metersEnd Stage Renal Disease: Less than 15 mL/min/1.73 square meters Performed By: #### C BC, ANEU, ADIFF, MG, CMP, CAION, GFR ####[place] [address] .NEUABSon 10-15-2021 Neutrophil, Absolute 5.90 10 3/mcL Normal 2.25-8.10 A [facility] ([place]) Comment on above: Performed By: #### C BC, ANEU, ADIFF, MG, CMP, CAION, GFR ####[address] [address] APTTon 10-15-2021 aPTT Coag (Bld) [Time] 59.7 s High 25.0-35.0 [facility] ([place]) Comment on above: Result Comment: For Heparin anticoagulation therapy, the recommendedtherapeutic range is: 54-77 seconds (APTT Correlationwith Anti-Xa therapeutic range of 0.3-0.7 units/ml).PLEASE REFERENCE THE PHARMACY PROTOCOL FOR DOSING. Performed By: #### A PTT ####[place] [address] aPTT Coag (Bld) [Time] 58.0 s High 25.0-35.0 [facility] ([place]) Comment on above: Result Comment: For Heparin anticoagulation therapy, the recommendedtherapeutic range is: 54-77 seconds (APTT Correlationwith Anti-Xa therapeutic range of 0.3-0.7 units/ml).PLEASE REFERENCE THE PHARMACY PROTOCOL FOR DOSING. Performed By: #### A PTT ####[place] [address] Heparin dose (APTT) Heparin IV Normal [facility] ([place]) Comment on above: Performed By: #### A PTT ####[place] [address] aPTT Coag (Bld) [Time] 60.3 s High 25.0-35.0 [facility] ([place]) Comment on above: Result Comment: For Heparin anticoagulation therapy, the recommendedtherapeutic range is: 54-77 seconds (APTT Correlationwith Anti-Xa therapeutic range of 0.3-0.7 units/ml).PLEASE REFERENCE THE PHARMACY PROTOCOL FOR DOSING. Performed By: #### P BNP, APTT ####[place] [address] Heparin dose (APTT) Heparin IV Normal [facility] ([place]) Comment on above: Performed By: #### P BNP, APTT ####[place] [address] CAIONon 10-15-2021 Calcium Ionized 1.18 mmol/L Normal 1.12-1.32 [facility] ([place]) Comment on above: Performed By: #### C BC, ANEU, ADIFF, MG, CMP, CAION, GFR ####[id number] [place] [address] CBCon 10-15-2021 Erythrocyte distribution width (RBC) [Ratio] 14.0 % Normal 11.5-15.5 [facility] ([place]) Comment on above: Performed By: #### C BC, ANEU, ADIFF, MG, CMP, CAION, GFR ####[place] [address] Hematocrit (Bld) [Volume fraction] 47.8 % Normal 40.0-52.0 [facility] ([place]) Comment on above: Performed By: #### C BC, ANEU, ADIFF, MG, CMP, CAION, GFR ####[place] [address] Hgb 16.0 G/dL Normal 13.0-17.5 [facility] ([place]) Comment on above: Performed By: #### C BC, ANEU, ADIFF, MG, CMP, CAION, GFR ####[place] [address] MCH (RBC) [Entitic mass] 30.9 pg Normal 27.0-33.0 [facility] ([place]) Comment on above: Performed By: #### C BC, ANEU, ADIFF, MG, CMP, CAION, GFR ####[place] [address] MCHC 33.5 G/dL Normal 32.0-36.0 [facility] ([place]) Comment on above: Performed By: #### C BC, ANEU, ADIFF, MG, CMP, CAION, GFR ####[place] [address] MCV (RBC) [Entitic vol] 92.3 fL Normal 81.0-100.0 [facility] ([place]) Comment on above: Performed By: #### C BC, ANEU, ADIFF, MG, CMP, CAION, GFR ####[place] [address] Platelet 184 10 3/mcL Normal 150-450 [facility] ([place]) Comment on above: Performed By: #### C BC, ANEU, ADIFF, MG, CMP, CAION, GFR ####[address] [address] Platelet mean volume (Bld) [Entitic vol] 7.7 fL Normal 6.4-10.5 [facility] ([place]) Comment on above: Performed By: #### C BC, ANEU, ADIFF, MG, CMP, CAION, GFR ####[address] [address] RBC 5.17 10 6/mcL Normal 4.50-6.00 [facility] ([place]) Comment on above: Performed By: #### C BC, ANEU, ADIFF, MG, CMP, CAION, GFR ####[place] [address] WBC 7.80 10 3/mcL Normal 4.50-10.80 [facility] ([place]) Comment on above: Performed By: #### C BC, ANEU, ADIFF, MG, CMP, CAION, GFR ####[place] [address] CMPon 10-15-2021 Albumin Level 2.0 G/dL Low 3.2-4.8 [facility] ([place]) Comment on above: Performed By: #### C BC, ANEU, ADIFF, MG, CMP, CAION, GFR ####[place] [address] Albumin/Globulin [Mass ratio] 0.5 {ratio} Low 0.9-1.6 [facility] ([place]) Comment on above: Performed By: #### C BC, ANEU, ADIFF, MG, CMP, CAION, GFR ####[address] [address] ALP [Catalytic activity/Vol] 144 U/L High 38-126 [facility] ([place]) Comment on above: Performed By: #### C BC, ANEU, ADIFF, MG, CMP, CAION, GFR ####[address] [address] ALT [Catalytic activity/Vol] 14 U/L Normal 12-55 [facility] ([place]) Comment on above: Performed By: #### C BC, ANEU, ADIFF, MG, CMP, CAION, GFR ####[address] [address] AST [Catalytic activity/Vol] 52 U/L High 8-34 [facility] ([place]) Comment on above: Performed By: #### C BC, ANEU, ADIFF, MG, CMP, CAION, GFR ####[address] [address] Bili Total 0.90 mg/dL Normal 0.20-1.20 [facility] ([place]) Comment on above: Result Comment: Use of this assay is not recommended for patients undergoing treatment with eltrombopag due to the potential for falsely elevated results. Performed By: #### C BC, ANEU, ADIFF, MG, CMP, CAION, GFR ####[address] [address] BUN/Creatinine Ratio 17.3 ratio Normal 10.0-22.0 [facility] ([place]) Comment on above: Performed By: #### C BC, ANEU, ADIFF, MG, CMP, CAION, GFR ####[address] [address] Calcium [Mass/Vol] 8.9 mg/dL Normal 8.7-10.4 [facility] ([place]) Comment on above: Result Comment: No te - New Reference Range in effect 20 Performed By: #### C BC, ANEU, ADIFF, MG, CMP, CAION, GFR ####[address] [address] Chloride [Moles/Vol] 107 mmol/L Normal 98-110 [facility] ([place]) Comment on above: Performed By: #### C BC, ANEU, ADIFF, MG, CMP, CAION, GFR ####[address] [address] CO2 [Moles/Vol] 28 mmol/L Normal 22-32 [facility] ([place]) Comment on above: Performed By: #### C BC, ANEU, ADIFF, MG, CMP, CAION, GFR ####[address] [address] Creatinine [Mass/Vol] 0.75 mg/dL Normal 0.60-1.40 [facility] ([place]) Comment on above: Performed By: #### C BC, ANEU, ADIFF, MG, CMP, CAION, GFR ####[address] [address] Electrolyte Balance 6.0 mEq/L Normal 4.0-15.0 [facility] ([place]) Comment on above: Performed By: #### C BC, ANEU, ADIFF, MG, CMP, CAION, GFR ####[place] [id number] Globulin 3.9 G/dL High 1.5-3.8 [facility] ([place]) Comment on above: Performed By: #### C BC, ANEU, ADIFF, MG, CMP, CAION, GFR ####[place] [id number] Glucose [Mass/Vol] 97 mg/dL Normal 82-115 [facility] ([place]) Comment on above: Performed By: #### C BC, ANEU, ADIFF, MG, CMP, CAION, GFR ####[address] [address] Potassium [Moles/Vol] 4.3 mmol/L Normal 3.5-5.0 [facility] ([place]) Comment on above: Result Comment: Spec imen slightly hemolyzed. Performed By: #### C BC, ANEU, ADIFF, MG, CMP, CAION, GFR ####[address] [address] Sodium [Moles/Vol] 141 mmol/L Normal 136-145 [facility] ([place]) Comment on above: Performed By: #### C BC, ANEU, ADIFF, MG, CMP, CAION, GFR ####[address] [address] Total Protein 5.9 G/dL Normal 5.7-8.2 [facility] ([place]) Comment on above: Result Comment: No te - New Reference Range in effect 20 Performed By: #### C BC, ANEU, ADIFF, MG, CMP, CAION, GFR ####[address] [address] Urea nitrogen [Mass/Vol] 13.0 mg/dL Normal 8.0-22.0 [facility] ([place]) Comment on above: Performed By: #### C BC, ANEU, ADIFF, MG, CMP, CAION, GFR ####[place] [address] LABORATORYOrdered By: SYSTEM SYSTEM on 10-15-2021 Albumin BCP dye [Mass/Vol] 2.0 G/dL Invalid Interpretation Code 3.2 - 4.8 G/dL AH ADM SS Albumin/Globulin [Mass ratio] 0.5 {ratio} Invalid Interpretation Code 0.9 - 1.6 ratio AH ADM SS ALP [Catalytic activity/Vol] 144 U/L Invalid Interpretation Code 38 - 126 U/L AH ADM SS ALT No additional P-5'-P [Catalytic activity/Vol] 14 U/L Invalid Interpretation Code 12 - 55 U/L AH ADM SS AST [Catalytic activity/Vol] 52 U/L Invalid Interpretation Code 8 - 34 U/L ADM SS Bilirubin [Mass/Vol] 0.90 mg/dL Invalid Interpretation Code 0.20 - 1.20 mg/dL AH ADM SS Globulin 3.9 G/dL Invalid Interpretation Code 1.5 - 3.8 G/dL AH ADM SS Protein [Mass/Vol] 5.9 G/dL Invalid Interpretation Code 5.7 - 8.2 G/dL AH ADM SS MGon 10-15-2021 Magnesium [Mass/Vol] 2.1 mg/dL Normal 1.6-2.4 [facility] ([place]) Comment on above: Performed By: #### C BC, ANEU, ADIFF, MG, CMP, CAION, GFR ####[address] [address] PBNPon 10-15-2021 Natriuretic peptide B (Bld) [Mass/Vol] 307 pg/mL Normal 0-1800 [facility] ([place]) Comment on above: Result Comment: NT-p roBNP results of less than 300 pg/mL effectivelyrules out acute congestive heart failure with 99% negative predictive value. Performed By: #### P BNP, APTT ####[address] [address] .Auto Diffon 10-14-2021 Basophil, Absolute 0.10 10 3/mcL Normal 0.00-0.27 [facility] ([place]) Comment on above: Performed By: #### C BC, CAION, ADIFF, MG, CMP, GFR, ANEU ####[address] [address] Basophils/100 WBC (Bld) 1.7 % Normal 0.0-2.5 [facility] ([place]) Comment on above: Performed By: #### C BC, CAION, ADIFF, MG, CMP, GFR, ANEU ####[address] [address] Eosinophil, Absolute 0.20 10 3/mcL Normal 0.00-0.65 [facility] ([place]) Comment on above: Performed By: #### C BC, CAION, ADIFF, MG, CMP, GFR, ANEU ####[address] [address] Eosinophils/100 WBC (Bld) 2.8 % Normal 0.0-6.0 [facility] ([place]) Comment on above: Performed By: #### C BC, CAION, ADIFF, MG, CMP, GFR, ANEU ####[address] [address] Lymphocyte, Absolute 0.80 10 3/mcL Low 0.90-4.32 [facility] ([place]) Comment on above: Performed By: #### C BC, CAION, ADIFF, MG, CMP, GFR, ANEU ####[address] [address] Lymphocytes/100 WBC (Bld) 10.2 % Low 20.0-40.0 [facility] ([place]) Comment on above: Performed By: #### C BC, CAION, ADIFF, MG, CMP, GFR, ANEU ####[address] [address] Monocyte, Absolute 0.80 10 3/mcL Normal 0.09-1.40 [facility] ([place]) Comment on above: Performed By: #### C BC, CAION, ADIFF, MG, CMP, GFR, ANEU ####[place] [address] [place] [address] Monocytes/100 WBC (Bld) 10.2 % Normal 2.0-13.0 [facility] ([place]) Comment on above: Performed By: #### C BC, CAION, ADIFF, MG, CMP, GFR, ANEU ####[place] [address] [place] [address] Neutrophils/100 WBC (Bld) 75.1 % High 50.0-75.0 [facility] ([place]) Comment on above: Performed By: #### C BC, CAION, ADIFF, MG, CMP, GFR, ANEU ####[address] [address] .GFRon 10-14-2021 GFR >60 Normal [facility] ([place]) Comment on above: Result Comment: GFR Population mean for , Non- Americans Ages 20-29 = 116 mL/min/1.73 sq.m. Ages 30-39 = 107 mL/min/1.73 sq.m. Ages 40-49 = 99 mL/min/1.73 sq.m. Ages 50-59 = 93 mL/min/1.73 sq.m. Ages 60-69 = 85 mL/min/1.73 sq.m. Ages 70+ = 75 mL/min/1.73 sq.m.Chronic Kidney Disease: Less than 60 mL/min/1.73 square metersEnd Stage Renal Disease: Less than 15 mL/min/1.73 square meters Performed By: #### C BC, CAION, ADIFF, MG, CMP, GFR, ANEU ####[address] [address] GFR Non- >60 Normal [facility] ([place]) Comment on above: Result Comment: GFR Population mean for , Non- Americans Ages 20-29 = 116 mL/min/1.73 sq.m. Ages 30-39 = 107 mL/min/1.73 sq.m. Ages 40-49 = 99 mL/min/1.73 sq.m. Ages 50-59 = 93 mL/min/1.73 sq.m. Ages 60-69 = 85 mL/min/1.73 sq.m. Ages 70+ = 75 mL/min/1.73 sq.m.Chronic Kidney Disease: Less than 60 mL/min/1.73 square metersEnd Stage Renal Disease: Less than 15 mL/min/1.73 square meters Performed By: #### C BC, CAION, ADIFF, MG, CMP, GFR, ANEU ####[place] [address] .NEUABSon 10-14-2021 Neutrophil, Absolute 5.80 10 3/mcL Normal 2.25-8.10 [facility] ([place]) Comment on above: Performed By: #### C BC, CAION, ADIFF, MG, CMP, GFR, ANEU ####[place] [address] APTTon 10-14-2021 aPTT Coag (Bld) [Time] 27.8 s Normal 25.0-35.0 [facility] ([place]) Comment on above: Result Comment: For Heparin anticoagulation therapy, the recommendedtherapeutic range is: 54-77 seconds (APTT Correlationwith Anti-Xa therapeutic range of 0.3-0.7 units/ml).PLEASE REFERENCE THE PHARMACY PROTOCOL FOR DOSING. Performed By: #### A PTT ####[place] [address] Heparin dose (APTT) Unknown Normal [facility] ([place]) Comment on above: Performed By: #### A PTT ####[place] [address] aPTT Coag (Bld) [Time] 59.1 s High 25.0-35.0 [facility] ([place]) Comment on above: Result Comment: For Heparin anticoagulation therapy, the recommendedtherapeutic range is: 54-77 seconds (APTT Correlationwith Anti-Xa therapeutic range of 0.3-0.7 units/ml).PLEASE REFERENCE THE PHARMACY PROTOCOL FOR DOSING. Performed By: #### A PTT ####[place] [address] Heparin dose (APTT) Heparin IV Normal [facility] ([place]) Comment on above: Performed By: #### A PTT ####[place] [address] aPTT Coag (Bld) [Time] 80.0 s High 25.0-35.0 [facility] ([place]) Comment on above: Result Comment: For Heparin anticoagulation therapy, the recommendedtherapeutic range is: 54-77 seconds (APTT Correlationwith Anti-Xa therapeutic range of 0.3-0.7 units/ml).PLEASE REFERENCE THE PHARMACY PROTOCOL FOR DOSING. Performed By: #### A PTT ####[place] [address] Heparin dose (APTT) Heparin IV Normal [facility] ([place]) Comment on above: Performed By: #### A PTT ####[place] [address] CAIONon 10-14-2021 Calcium Ionized 1.12 mmol/L Normal 1.12-1.32 [facility] ([place]) Comment on above: Performed By: #### C BC, CAION, ADIFF, MG, CMP, GFR, ANEU ####[place] [address] CBCon 10-14-2021 Erythrocyte distribution width (RBC) [Ratio] 13.5 % Normal 11.5-15.5 [facility] ([place]) Comment on above: Performed By: #### C BC, CAION, ADIFF, MG, CMP, GFR, ANEU ####[place] [address] Hematocrit (Bld) [Volume fraction] 43.6 % Normal 40.0-52.0 [facility] ([place]) Comment on above: Performed By: #### C BC, CAION, ADIFF, MG, CMP, GFR, ANEU ####[place] [address] Hgb 15.0 G/dL Normal 13.0-17.5 [facility] ([place]) Comment on above: Performed By: #### C BC, CAION, ADIFF, MG, CMP, GFR, ANEU ####[place] [address] MCH (RBC) [Entitic mass] 30.7 pg Normal 27.0-33.0 [facility] ([place]) Comment on above: Performed By: #### C BC, CAION, ADIFF, MG, CMP, GFR, ANEU ####[place] [address] MCHC 34.4 G/dL Normal 32.0-36.0 [facility] ([place]) Comment on above: Performed By: #### C BC, CAION, ADIFF, MG, CMP, GFR, ANEU ####[place] [address] MCV (RBC) [Entitic vol] 89.4 fL Normal 81.0-100.0 [facility] ([place]) Comment on above: Performed By: #### C BC, CAION, ADIFF, MG, CMP, GFR, ANEU ####[place] [address] Platelet 181 10 3/mcL Normal 150-450 [facility] ([place]) Comment on above: Performed By: #### C BC, CAION, ADIFF, MG, CMP, GFR, ANEU ####[place] [address] Platelet mean volume (Bld) [Entitic vol] 7.7 fL Normal 6.4-10.5 [facility] ([place]) Comment on above: Performed By: #### C BC, CAION, ADIFF, MG, CMP, GFR, ANEU ####[place] [address] RBC 4.88 10 6/mcL Normal 4.50-6.00 [facility] ([place]) Comment on above: Performed By: #### C BC, CAION, ADIFF, MG, CMP, GFR, ANEU ####[place] [address] WBC 7.80 10 3/mcL Normal 4.50-10.80 [facility] ([place]) Comment on above: Performed By: #### C BC, CAION, ADIFF, MG, CMP, GFR, ANEU ####[address] [address] CBLon 10-14-2021 CBL Normal [facility] ([place]) CMPon 10-14-2021 Albumin Level 1.9 G/dL Low 3.2-4.8 [facility] ([place]) Comment on above: Performed By: #### C BC, CAION, ADIFF, MG, CMP, GFR, ANEU ####[address] [address] Albumin/Globulin [Mass ratio] 0.5 {ratio} Low 0.9-1.6 [facility] ([place]) Comment on above: Performed By: #### C BC, CAION, ADIFF, MG, CMP, GFR, ANEU ####[address] [address] ALP [Catalytic activity/Vol] 132 U/L High 38-126 [facility] ([place]) Comment on above: Performed By: #### C BC, CAION, ADIFF, MG, CMP, GFR, ANEU ####[address] [address] ALT [Catalytic activity/Vol] 16 U/L Normal 12-55 [facility] ([place]) Comment on above: Performed By: #### C BC, CAION, ADIFF, MG, CMP, GFR, ANEU ####[address] [address] AST [Catalytic activity/Vol] 47 U/L High 8-34 [facility] ([place]) Comment on above: Performed By: #### C BC, CAION, ADIFF, MG, CMP, GFR, ANEU ####[address] [address] Bili Total 1.10 mg/dL Normal 0.20-1.20 [facility] ([place]) Comment on above: Result Comment: Use of this assay is not recommended for patients undergoing treatment with eltrombopag due to the potential for falsely elevated results. Performed By: #### C BC, CAION, ADIFF, MG, CMP, GFR, ANEU ####[address] [address] BUN/Creatinine Ratio 17.9 ratio Normal 10.0-22.0 [facility] ([place]) Comment on above: Performed By: #### C BC, CAION, ADIFF, MG, CMP, GFR, ANEU ####[address] [address] Calcium [Mass/Vol] 8.5 mg/dL Low 8.7-10.4 [facility] ([place]) Comment on above: Result Comment: No te - New Reference Range in effect 20 Performed By: #### C BC, CAION, ADIFF, MG, CMP, GFR, ANEU ####[address] [address] Chloride [Moles/Vol] 110 mmol/L Normal 98-110 [facility] ([place]) Comment on above: Performed By: #### C BC, CAION, ADIFF, MG, CMP, GFR, ANEU ####[address] [address] CO2 [Moles/Vol] 22 mmol/L Normal 22-32 [facility] ([place]) Comment on above: Performed By: #### C BC, CAION, ADIFF, MG, CMP, GFR, ANEU ####[address] [address] Creatinine [Mass/Vol] 0.67 mg/dL Normal 0.60-1.40 [facility] ([place]) Comment on above: Performed By: #### C BC, CAION, ADIFF, MG, CMP, GFR, ANEU ####[address] [address] Electrolyte Balance 10.0 mEq/L Normal 4.0-15.0 [facility] ([place]) Comment on above: Performed By: #### C BC, CAION, ADIFF, MG, CMP, GFR, ANEU ####[address] [address] Globulin 3.8 G/dL Normal 1.5-3.8 [facility] ([place]) Comment on above: Performed By: #### C BC, CAION, ADIFF, MG, CMP, GFR, ANEU ####[address] [address] Glucose [Mass/Vol] 102 mg/dL Normal 82-115 [facility] ([place]) Comment on above: Performed By: #### C BC, CAION, ADIFF, MG, CMP, GFR, ANEU ####[address] [address] Potassium [Moles/Vol] 3.9 mmol/L Normal 3.5-5.0 [facility] ([place]) Comment on above: Performed By: #### C BC, CAION, ADIFF, MG, CMP, GFR, ANEU ####[address] [address] Sodium [Moles/Vol] 142 mmol/L Normal 136-145 [facility] ([place]) Comment on above: Performed By: #### C BC, CAION, ADIFF, MG, CMP, GFR, ANEU ####[address] [address] Total Protein 5.7 G/dL Normal 5.7-8.2 [facility] ([place]) Comment on above: Result Comment: No te - New Reference Range in effect 20 Performed By: #### C BC, CAION, ADIFF, MG, CMP, GFR, ANEU ####[address] [address] Urea nitrogen [Mass/Vol] 12.0 mg/dL Normal 8.0-22.0 [facility] ([place]) Comment on above: Performed By: #### C BC, CAION, ADIFF, MG, CMP, GFR, ANEU ####[address] [address] LABORATORYOrdered By: SYSTEM SYSTEM on 10-14-2021 Natriuretic peptide.B prohormone N-Terminal [Mass/Vol] 307 pg/mL Invalid Interpretation Code 0 - 1800 pg/mL AH ADM SS Albumin BCP dye [Mass/Vol] 1.9 G/dL Invalid Interpretation Code 3.2 - 4.8 G/dL AH ADM SS Albumin/Globulin [Mass ratio] 0.5 {ratio} Invalid Interpretation Code 0.9 - 1.6 ratio AH ADM SS ALP [Catalytic activity/Vol] 132 U/L Invalid Interpretation Code 38 - 126 U/L AH ADM SS ALT No additional P-5'-P [Catalytic activity/Vol] 16 U/L Invalid Interpretation Code 12 - 55 U/L AH ADM SS AST [Catalytic activity/Vol] 47 U/L Invalid Interpretation Code 8 - 34 U/L AH ADM SS Bilirubin [Mass/Vol] 1.10 mg/dL Invalid Interpretation Code 0.20 - 1.20 mg/dL AH ADM SS Globulin 3.8 G/dL Invalid Interpretation Code 1.5 - 3.8 G/dL AH ADM SS Protein [Mass/Vol] 5.7 G/dL Invalid Interpretation Code 5.7 - 8.2 G/dL AH ADM SS LABORATORYOrdered By: Chuy Jasso on 10-14-2021 Appearance (U) Clear (10/14/21 12:53 PM) Invalid Interpretation Code Clear AH Auto Urine SS Bilirubin Ql (U) Negative (10/14/21 12:53 PM) Invalid Interpretation Code Neg-Trace AH Auto Urine SS Color (U) Dark Yellow *NA* (10/14/21 12:53 PM) Invalid Interpretation Code AH Auto Urine SS Glucose Test strip (U) [Mass/Vol] Negative Invalid Interpretation Code Negativemg/ dL AH Auto Urine SS Hemoglobin Auto test strip (U) [Mass/Vol] Negative (10/14/21 12:53 PM) Invalid Interpretation Code Neg-Trace AH Auto Urine SS Ketones Ql (U) Negative Invalid Interpretation Code Neg-Tracemg /dL AH Auto Urine SS UA Leuk Est Negative (10/14/21 12:53 PM) Invalid Interpretation Code Negative AH Auto Urine SS UA Nitrite Negative (10/14/21 12:53 PM) Invalid Interpretation Code Negative AH Auto Urine SS UA pH 5.5 (10/14/21 12:53 PM) Invalid Interpretation Code 5.0 - 8.0 AH Auto Urine SS UA Protein Negative Invalid Interpretation Code Negativemg/ dL AH Auto Urine SS UA Spec Grav 1.020 (10/14/21 12:53 PM) Invalid Interpretation Code 1.006-1.029 AH Auto Urine SS UA Specimen Type Void (10/14/21 12:53 PM) Invalid Interpretation Code AH Auto Urine SS UA Urobilinogen 1.0 E.U./dL Invalid Interpretation Code 0.2-1.0E.U. /dL AH Auto Urine SS LMERLYon 10-14-2021 Lyme IgG/IgM AB Negative Normal NEGAT [facility] ([place]) Comment on above: Result Comment: Rece nt infection with B. burgdorferi sensu lato cannot be excluded if the specimen is collected within four weeks after the onset of signs and symptoms or within six weeks after a known tick exposure. Clinical and eidemiological correlation is required.Performed By:[facility] [place], [place] [address]Mhx Director: MATY Weathers III#: [id number]#: Performed By: #### A JUDY, GFR, LMERLY, MG, BMP, ADIFF, CBC ####[place] [address] MGon 10-14-2021 Magnesium [Mass/Vol] 1.8 mg/dL Normal 1.6-2.4 [facility] ([place]) Comment on above: Performed By: #### C BC, CAION, ADIFF, MG, CMP, GFR, ANEU ####[place] [address] UAon 10-14-2021 Color (U) Dark Yellow Normal [facility] ([place]) Comment on above: Performed By: #### U A ####[place] [address] Glucose (U) [Mass/Vol] Negative Normal Negative [facility] ([place]) Comment on above: Performed By: #### U A ####[place] [id number] Ketones Ql (U) Negative Normal Neg-Trace [facility] ([place]) Comment on above: Performed By: #### U A ####[place] [address] UA Appear Clear Normal Clear [facility] ([place]) Comment on above: Performed By: #### U A ####[place] [address] UA Blood Negative Normal Neg-Trace [facility] ([place]) Comment on above: Performed By: #### U A ####[place] [address] UA Leuk Est Negative Normal Negative [facility] ([place]) Comment on above: Performed By: #### U A ####[place] [address] UA Nitrite Negative Normal Negative [facility] ([place]) Comment on above: Performed By: #### U A ####[place] [address] UA pH 5.5 Normal 5.0 - 8.0 [facility] ([place]) Comment on above: Performed By: #### U A ####[place] [address] UA Protein Negative Normal Negative [facility] ([place]) Comment on above: Performed By: #### U A ####[place] [address] UA Spec Grav 1.020 Normal 1.006-1.029 [facility] ([place]) Comment on above: Performed By: #### U A ####[place] [address] UA Specimen Type Void Normal [facility] ([place]) Comment on above: Performed By: #### U A ####[place] [address] UA Urobilinogen 1.0 E.U./dL Normal 0.2-1.0 [facility] ([place]) Comment on above: Performed By: #### U A ####[place] [address] Urobilinogen (U) [Mass/Vol] Negative Normal Neg-Trace [facility] ([place]) Comment on above: Performed By: #### U A ####[place] [address] XR CHEST 1 VIEWon 10-14-2021 XR CHEST 1 VIEW Normal [facility] ([place]) .Auto Diffon 10-13-2021 Basophil, Absolute 0.00 10 3/mcL Normal 0.00-0.27 [facility] ([place]) Comment on above: Performed By: #### C RP, BMP, ANEU, ADIFF, CBC, MG, GFR ####[address] [address] Basophils/100 WBC (Bld) 0.5 % Normal 0.0-2.5 [facility] ([place]) Comment on above: Performed By: #### C RP, BMP, ANEU, ADIFF, CBC, MG, GFR ####[address] [address] Eosinophil, Absolute 0.20 10 3/mcL Normal 0.00-0.65 A [facility] ([place]) Comment on above: Performed By: #### C RP, BMP, ANEU, ADIFF, CBC, MG, GFR ####[address] [address] Eosinophils/100 WBC (Bld) 2.1 % Normal 0.0-6.0 [facility] ([place]) Comment on above: Performed By: #### C RP, BMP, ANEU, ADIFF, CBC, MG, GFR ####[address] [address] Lymphocyte, Absolute 0.70 10 3/mcL Low 0.90-4.32 A [facility] ([place]) Comment on above: Performed By: #### C RP, BMP, ANEU, ADIFF, CBC, MG, GFR ####[address] [address] Lymphocytes/100 WBC (Bld) 9.8 % Low 20.0-40.0 [facility] ([place]) Comment on above: Performed By: #### C RP, BMP, ANEU, ADIFF, CBC, MG, GFR ####[address] [address] Monocyte, Absolute 0.80 10 3/mcL Normal 0.09-1.40 [facility] ([place]) Comment on above: Performed By: #### C RP, BMP, ANEU, ADIFF, CBC, MG, GFR ####[place] [address] [place] [address] Monocytes/100 WBC (Bld) 11.1 % Normal 2.0-13.0 [facility] ([place]) Comment on above: Performed By: #### C RP, BMP, ANEU, ADIFF, CBC, MG, GFR ####[place] [address] [place] [address] Neutrophils/100 WBC (Bld) 76.5 % High 50.0-75.0 [facility] ([place]) Comment on above: Performed By: #### C RP, BMP, ANEU, ADIFF, CBC, MG, GFR ####[address] [address] .GFRon 10-13-2021 GFR >60 Normal [facility] ([place]) Comment on above: Result Comment: GFR Population mean for , Non- Americans Ages 20-29 = 116 mL/min/1.73 sq.m. Ages 30-39 = 107 mL/min/1.73 sq.m. Ages 40-49 = 99 mL/min/1.73 sq.m. Ages 50-59 = 93 mL/min/1.73 sq.m. Ages 60-69 = 85 mL/min/1.73 sq.m. Ages 70+ = 75 mL/min/1.73 sq.m.Chronic Kidney Disease: Less than 60 mL/min/1.73 square metersEnd Stage Renal Disease: Less than 15 mL/min/1.73 square meters Performed By: #### C RP, BMP, ANEU, ADIFF, CBC, MG, GFR ####[address] [address] GFR Non- >60 Normal [facility] ([place]) Comment on above: Result Comment: GFR Population mean for , Non- Americans Ages 20-29 = 116 mL/min/1.73 sq.m. Ages 30-39 = 107 mL/min/1.73 sq.m. Ages 40-49 = 99 mL/min/1.73 sq.m. Ages 50-59 = 93 mL/min/1.73 sq.m. Ages 60-69 = 85 mL/min/1.73 sq.m. Ages 70+ = 75 mL/min/1.73 sq.m.Chronic Kidney Disease: Less than 60 mL/min/1.73 square metersEnd Stage Renal Disease: Less than 15 mL/min/1.73 square meters Performed By: #### C RP, BMP, ANEU, ADIFF, CBC, MG, GFR ####[place] [address] .NEUABSon 10-13-2021 Neutrophil, Absolute 5.70 10 3/mcL Normal 2.25-8.10 A [facility], [facility] ([place]) Comment on above: Performed By: #### C RP, BMP, ANEU, ADIFF, CBC, MG, GFR ####[place] [address] APTTon 10-13-2021 aPTT Coag (Bld) [Time] 62.6 s High 25.0-35.0 [facility] ([place]) Comment on above: Result Comment: For Heparin anticoagulation therapy, the recommendedtherapeutic range is: 54-77 seconds (APTT Correlationwith Anti-Xa therapeutic range of 0.3-0.7 units/ml).PLEASE REFERENCE THE PHARMACY PROTOCOL FOR DOSING. Performed By: #### A PTT ####[place] [address] Heparin dose (APTT) Heparin IV Normal [facility] ([place]) Comment on above: Performed By: #### A PTT ####[place] [address] BMPon 10-13-2021 BUN/Creatinine Ratio 16.0 ratio Normal 10.0-22.0 [facility] ([place]) Comment on above: Performed By: #### C RP, BMP, ANEU, ADIFF, CBC, MG, GFR ####[place] [address] Creatinine [Mass/Vol] 0.75 mg/dL Normal 0.60-1.40 [facility] ([place]) Comment on above: Performed By: #### C RP, BMP, ANEU, ADIFF, CBC, MG, GFR ####[place] [address] Calcium [Mass/Vol] 8.9 mg/dL Normal 8.4-10.1 [facility] ([place]) Comment on above: Result Comment: No te - New Reference Range in effect 20 Performed By: #### C RP, BMP, ANEU, ADIFF, CBC, MG, GFR ####[address] [address] Chloride [Moles/Vol] 111 mmol/L High 98-110 [facility] ([place]) Comment on above: Performed By: #### C RP, BMP, ANEU, ADIFF, CBC, MG, GFR ####[address] [address] CO2 [Moles/Vol] 23 mmol/L Normal 22-32 [facility] ([place]) Comment on above: Performed By: #### C RP, BMP, ANEU, ADIFF, CBC, MG, GFR ####[place] [address] Electrolyte Balance 7.0 mEq/L Normal 4.0-15.0 [facility] ([place]) Comment on above: Performed By: #### C RP, BMP, ANEU, ADIFF, CBC, MG, GFR ####[place] [address] Glucose [Mass/Vol] 97 mg/dL Normal 82-115 [facility] ([place]) Comment on above: Performed By: #### C RP, BMP, ANEU, ADIFF, CBC, MG, GFR ####[place] [address] Potassium [Moles/Vol] 4.3 mmol/L Normal 3.5-5.0 [facility] ([place]) Comment on above: Result Comment: Spec imen slightly hemolyzed. Performed By: #### C RP, BMP, ANEU, ADIFF, CBC, MG, GFR ####[address] [address] Sodium [Moles/Vol] 141 mmol/L Normal 136-145 [facility] ([place]) Comment on above: Performed By: #### C RP, BMP, ANEU, ADIFF, CBC, MG, GFR ####[place] [address] Urea nitrogen [Mass/Vol] 12.0 mg/dL Normal 8.0-22.0 [facility] ([place]) Comment on above: Performed By: #### C RP, BMP, ANEU, ADIFF, CBC, MG, GFR ####[place] [address] CBCon 10-13-2021 Erythrocyte distribution width (RBC) [Ratio] 13.6 % Normal 11.5-15.5 [facility] ([place]) Comment on above: Performed By: #### C RP, BMP, ANEU, ADIFF, CBC, MG, GFR ####[place] [address] Hematocrit (Bld) [Volume fraction] 42.7 % Normal 40.0-52.0 [facility] ([place]) Comment on above: Performed By: #### C RP, BMP, ANEU, ADIFF, CBC, MG, GFR ####[place] [address] Hgb 14.7 G/dL Normal 13.0-17.5 [facility] ([place]) Comment on above: Performed By: #### C RP, BMP, ANEU, ADIFF, CBC, MG, GFR ####[place] [address] MCH (RBC) [Entitic mass] 30.9 pg Normal 27.0-33.0 [facility] ([place]) Comment on above: Performed By: #### C RP, BMP, ANEU, ADIFF, CBC, MG, GFR ####[place] [address] MCHC 34.6 G/dL Normal 32.0-36.0 [facility] ([place]) Comment on above: Performed By: #### C RP, BMP, ANEU, ADIFF, CBC, MG, GFR ####[place] [address] MCV (RBC) [Entitic vol] 89.3 fL Normal 81.0-100.0 [facility] ([place]) Comment on above: Performed By: #### C RP, BMP, ANEU, ADIFF, CBC, MG, GFR ####[place] [address] Platelet 180 10 3/mcL Normal 150-450 [facility] ([place]) Comment on above: Performed By: #### C RP, BMP, ANEU, ADIFF, CBC, MG, GFR ####[place] [address] Platelet mean volume (Bld) [Entitic vol] 7.9 fL Normal 6.4-10.5 [facility] ([place]) Comment on above: Performed By: #### C RP, BMP, ANEU, ADIFF, CBC, MG, GFR ####[place] [address] RBC 4.77 10 6/mcL Normal 4.50-6.00 [facility] ([place]) Comment on above: Performed By: #### C RP, BMP, ANEU, ADIFF, CBC, MG, GFR ####[place] [address] WBC 7.40 10 3/mcL Normal 4.50-10.80 [facility] ([place]) Comment on above: Performed By: #### C RP, BMP, ANEU, ADIFF, CBC, MG, GFR ####[place] [address] CBLon 10-13-2021 CBL Normal [facility] ([place]) CRPon 10-13-2021 C-Reactive Protein 7.4 mg/dL High 0.0-1.0 [facility] ([place]) Comment on above: Result Comment: No te - New Reference Range in effect 20 Performed By: #### C RP, BMP, ANEU, ADIFF, CBC, MG, GFR ####[place] [address] ESRon 10-13-2021 Erythrocyte Sed Rate 74 mm/hr High 0-20 [facility] ([place]) Comment on above: Performed By: #### E SR ####[place] [address] LABORATORYOrdered By: Crystal Castro on 10-13-2021 ESR 15 minute reading (Bld) [Velocity] 74 mm/hr Invalid Interpretation Code 0 - 20 mm/hr AH Manual Heme SS LABORATORYOrdered By: SYSTEM SYSTEM on 10-13-2021 CRP [Mass/Vol] 7.4 mg/dL Invalid Interpretation Code 0.0 - 1.0 mg/dL AH ADM SS MGon 10-13-2021 Magnesium [Mass/Vol] 1.9 mg/dL Normal 1.6-2.4 [facility] ([place]) Comment on above: Performed By: #### C RP, BMP, ANEU, ADIFF, CBC, MG, GFR ####[address] [address] .Auto Diffon 10-12-2021 Basophil, Absolute 0.00 10 3/mcL Normal 0.00-0.27 [facility] ([place]) Comment on above: Performed By: #### A JUDY, GFR, LMERLY, MG, BMP, ADIFF, CBC ####[place] [address] Basophils/100 WBC (Bld) 0.6 % Normal 0.0-2.5 [facility] ([place]) Comment on above: Performed By: #### A JUDY, GFR, LMERLY, MG, BMP, ADIFF, CBC ####[place] [address] Eosinophil, Absolute 0.20 10 3/mcL Normal 0.00-0.65 A [facility] ([place]) Comment on above: Performed By: #### A JUDY, GFR, LMERLY, MG, BMP, ADIFF, CBC ####[address] [address] Eosinophils/100 WBC (Bld) 2.9 % Normal 0.0-6.0 [facility] ([place]) Comment on above: Performed By: #### A JUDY, GFR, LMERLY, MG, BMP, ADIFF, CBC ####[address] [address] Lymphocyte, Absolute 0.60 10 3/mcL Low 0.90-4.32 A [facility], [facility] ([place]) Comment on above: Performed By: #### A JUDY, GFR, LMERLY, MG, BMP, ADIFF, CBC ####[address] [address] Lymphocytes/100 WBC (Bld) 8.6 % Low 20.0-40.0 [facility] ([place]) Comment on above: Performed By: #### A JUDY, GFR, LMERLY, MG, BMP, ADIFF, CBC ####[address] [address] Monocyte, Absolute 0.70 10 3/mcL Normal 0.09-1.40 [facility] ([place]) Comment on above: Performed By: #### A JUDY, GFR, LMERLY, MG, BMP, ADIFF, CBC ####[address] [address] Monocytes/100 WBC (Bld) 10.4 % Normal 2.0-13.0 [facility] ([place]) Comment on above: Performed By: #### A JUDY, GFR, LMERLY, MG, BMP, ADIFF, CBC ####[address] [address] Neutrophils/100 WBC (Bld) 77.5 % High 50.0-75.0 [facility] ([place]) Comment on above: Performed By: #### A JUDY, GFR, LMERLY, MG, BMP, ADIFF, CBC ####[address] [address] .GFRon 10-12-2021 GFR >60 Normal [facility] ([place]) Comment on above: Result Comment: GFR Population mean for , Non- Americans Ages 20-29 = 116 mL/min/1.73 sq.m. Ages 30-39 = 107 mL/min/1.73 sq.m. Ages 40-49 = 99 mL/min/1.73 sq.m. Ages 50-59 = 93 mL/min/1.73 sq.m. Ages 60-69 = 85 mL/min/1.73 sq.m. Ages 70+ = 75 mL/min/1.73 sq.m.Chronic Kidney Disease: Less than 60 mL/min/1.73 square metersEnd Stage Renal Disease: Less than 15 mL/min/1.73 square meters Performed By: #### A JUDY, GFR, LMERLY, MG, BMP, ADIFF, CBC ####[address] [address] GFR Non- >60 Normal [facility] ([place]) Comment on above: Result Comment: GFR Population mean for , Non- Americans Ages 20-29 = 116 mL/min/1.73 sq.m. Ages 30-39 = 107 mL/min/1.73 sq.m. Ages 40-49 = 99 mL/min/1.73 sq.m. Ages 50-59 = 93 mL/min/1.73 sq.m. Ages 60-69 = 85 mL/min/1.73 sq.m. Ages 70+ = 75 mL/min/1.73 sq.m.Chronic Kidney Disease: Less than 60 mL/min/1.73 square metersEnd Stage Renal Disease: Less than 15 mL/min/1.73 square meters Performed By: #### A JUDY, GFR, LMERLY, MG, BMP, ADIFF, CBC ####[place] [address] .NEUABSon 10-12-2021 Neutrophil, Absolute 5.40 10 3/mcL Normal 2.25-8.10 A [facility] ([place]) Comment on above: Performed By: #### A JUDY, GFR, LMERLY, MG, BMP, ADIFF, CBC ####[place] [address] APTTon 10-12-2021 aPTT Coag (Bld) [Time] 50.0 s High 25.0-35.0 [facility] ([place]) Comment on above: Result Comment: For Heparin anticoagulation therapy, the recommendedtherapeutic range is: 54-77 seconds (APTT Correlationwith Anti-Xa therapeutic range of 0.3-0.7 units/ml).PLEASE REFERENCE THE PHARMACY PROTOCOL FOR DOSING. Performed By: #### A PTT ####[place] [address] Heparin dose (APTT) Heparin IV Normal [facility] ([place]) Comment on above: Performed By: #### A PTT ####[address] [address] BMPon 10-12-2021 BUN/Creatinine Ratio 19.4 ratio Normal 10.0-22.0 [facility] ([place]) Comment on above: Performed By: #### A JUDY, GFR, LMERLY, MG, BMP, ADIFF, CBC ####[address] [address] Calcium [Mass/Vol] 9.0 mg/dL Normal 8.4-10.1 [facility] ([place]) Comment on above: Result Comment: No te - New Reference Range in effect 20 Performed By: #### A JUDY, GFR, LMERLY, MG, BMP, ADIFF, CBC ####[address] [address] Chloride [Moles/Vol] 111 mmol/L High 98-110 [facility] ([place]) Comment on above: Performed By: #### A JUDY, GFR, LMERLY, MG, BMP, ADIFF, CBC ####[address] [address] CO2 [Moles/Vol] 23 mmol/L Normal 22-32 [facility] ([place]) Comment on above: Performed By: #### A JUDY, GFR, LMERLY, MG, BMP, ADIFF, CBC ####[address] [address] Creatinine [Mass/Vol] 0.72 mg/dL Normal 0.60-1.40 [facility] ([place]) Comment on above: Performed By: #### A JUDY, GFR, LMERLY, MG, BMP, ADIFF, CBC ####[address] [address] Electrolyte Balance 6.0 mEq/L Normal 4.0-15.0 [facility] ([place]) Comment on above: Performed By: #### A JUDY, GFR, LMERLY, MG, BMP, ADIFF, CBC ####[address] [address] Glucose [Mass/Vol] 95 mg/dL Normal 82-115 [facility] ([place]) Comment on above: Performed By: #### A JUDY, GFR, LMERLY, MG, BMP, ADIFF, CBC ####[address] [address] Potassium [Moles/Vol] 3.9 mmol/L Normal 3.5-5.0 [facility] ([place]) Comment on above: Performed By: #### A JUDY, GFR, LMERLY, MG, BMP, ADIFF, CBC ####[address] [address] Sodium [Moles/Vol] 140 mmol/L Normal 136-145 [facility] ([place]) Comment on above: Performed By: #### A JUDY, GFR, LMERLY, MG, BMP, ADIFF, CBC ####[address] [address] Urea nitrogen [Mass/Vol] 14.0 mg/dL Normal 8.0-22.0 [facility] ([place]) Comment on above: Performed By: #### A JUDY, GFR, LMERLY, MG, BMP, ADIFF, CBC ####[address] [address] CBCon 10-12-2021 Erythrocyte distribution width (RBC) [Ratio] 13.6 % Normal 11.5-15.5 [facility] ([place]) Comment on above: Performed By: #### A JUDY, GFR, LMERLY, MG, BMP, ADIFF, CBC ####[place] [address] Hematocrit (Bld) [Volume fraction] 42.8 % Normal 40.0-52.0 [facility] ([place]) Comment on above: Performed By: #### A JUDY, GFR, LMERLY, MG, BMP, ADIFF, CBC ####[address] [address] Hgb 14.9 G/dL Normal 13.0-17.5 [facility] ([place]) Comment on above: Performed By: #### A JUDY, GFR, LMERLY, MG, BMP, ADIFF, CBC ####[place] [address] MCH (RBC) [Entitic mass] 30.7 pg Normal 27.0-33.0 [facility] ([place]) Comment on above: Performed By: #### A JUDY, GFR, LMERLY, MG, BMP, ADIFF, CBC ####[place] [address] MCHC 34.8 G/dL Normal 32.0-36.0 [facility] ([place]) Comment on above: Performed By: #### A JUDY, GFR, LMERLY, MG, BMP, ADIFF, CBC ####[place] [address] MCV (RBC) [Entitic vol] 88.2 fL Normal 81.0-100.0 [facility] ([place]) Comment on above: Performed By: #### A JUDY, GFR, LMERLY, MG, BMP, ADIFF, CBC ####[place] [address] Platelet 186 10 3/mcL Normal 150-450 [facility] ([place]) Comment on above: Performed By: #### A JUDY, GFR, LMERLY, MG, BMP, ADIFF, CBC ####[place] [address] Platelet mean volume (Bld) [Entitic vol] 7.7 fL Normal 6.4-10.5 [facility] ([place]) Comment on above: Performed By: #### A JUDY, GFR, LMERLY, MG, BMP, ADIFF, CBC ####[place] [address] RBC 4.86 10 6/mcL Normal 4.50-6.00 [facility] ([place]) Comment on above: Performed By: #### A JUDY, GFR, LMERLY, MG, BMP, ADIFF, CBC ####[place] [address] WBC 7.00 10 3/mcL Normal 4.50-10.80 [facility] ([place]) Comment on above: Performed By: #### A JUDY, GFR, LMERLY, MG, BMP, ADIFF, CBC ####[place] [address] LABORATORYOrdered By: NYDIA MAGUIRE CONTRIBUTOR_SYSTEM on 10-12-2021 Negative Invalid Interpretation Code NEGAT AH Sendouts SS Comment on above: Result Comment: Rece nt infection with B. burgdorferi sensu lato cannot be excluded if the specimen is collected within four weeks after the onset of signs and symptoms or within six weeks after a known tick exposure. Clinical and eidemiological correlation is required. Performed By: [facility] [employer] [address] [place] [address] [employer]: Morales Dubose III, M.D. CLIA#: [id number] Phone#: MGon 10-12-2021 Magnesium [Mass/Vol] 1.9 mg/dL Normal 1.6-2.4 [facility] ([place]) Comment on above: Performed By: #### A JUDY, GFR, LMERLY, MG, BMP, ADIFF, CBC ####[place] [address] .Auto Diffon 10-11-2021 Basophil, Absolute 0.00 10 3/mcL Normal 0.00-0.27 [facility] ([place]) Comment on above: Performed By: #### C RP, BMP, VANCT, ESR, ADIFF, CBC, GFR, HFP, MG, APTT, PRO, ANEU ####[place] [address] Basophils/100 WBC (Bld) 0.3 % Normal 0.0-2.5 [facility] ([place]) Comment on above: Performed By: #### C RP, BMP, VANCT, ESR, ADIFF, CBC, GFR, HFP, MG, APTT, PRO, ANEU ####[place] [address] Eosinophil, Absolute 0.30 10 3/mcL Normal 0.00-0.65 [facility] ([place]) Comment on above: Performed By: #### C RP, BMP, VANCT, ESR, ADIFF, CBC, GFR, HFP, MG, APTT, PRO, ANEU ####[address] [address] Eosinophils/100 WBC (Bld) 3.8 % Normal 0.0-6.0 [facility] ([place]) Comment on above: Performed By: #### C RP, BMP, VANCT, ESR, ADIFF, CBC, GFR, HFP, MG, APTT, PRO, ANEU ####[address] [address] Lymphocyte, Absolute 0.70 10 3/mcL Low 0.90-4.32 [facility] ([place]) Comment on above: Performed By: #### C RP, BMP, VANCT, ESR, ADIFF, CBC, GFR, HFP, MG, APTT, PRO, ANEU ####[address] [address] Lymphocytes/100 WBC (Bld) 10.1 % Low 20.0-40.0 [facility] ([place]) Comment on above: Performed By: #### C RP, BMP, VANCT, ESR, ADIFF, CBC, GFR, HFP, MG, APTT, PRO, ANEU ####[address] [address] Monocyte, Absolute 0.90 10 3/mcL Normal 0.09-1.40 [facility] ([place]) Comment on above: Performed By: #### C RP, BMP, VANCT, ESR, ADIFF, CBC, GFR, HFP, MG, APTT, PRO, ANEU ####[address] [address] Monocytes/100 WBC (Bld) 12.2 % Normal 2.0-13.0 [facility] ([place]) Comment on above: Performed By: #### C RP, BMP, VANCT, ESR, ADIFF, CBC, GFR, HFP, MG, APTT, PRO, ANEU ####[address] [address] Neutrophils/100 WBC (Bld) 73.6 % Normal 50.0-75.0 [facility] ([place]) Comment on above: Performed By: #### C RP, BMP, VANCT, ESR, ADIFF, CBC, GFR, HFP, MG, APTT, PRO, ANEU ####[address] [address] .GFRon 10-11-2021 GFR >60 Normal [facility] ([place]) Comment on above: Result Comment: GFR Population mean for , Non- Americans Ages 20-29 = 116 mL/min/1.73 sq.m. Ages 30-39 = 107 mL/min/1.73 sq.m. Ages 40-49 = 99 mL/min/1.73 sq.m. Ages 50-59 = 93 mL/min/1.73 sq.m. Ages 60-69 = 85 mL/min/1.73 sq.m. Ages 70+ = 75 mL/min/1.73 sq.m.Chronic Kidney Disease: Less than 60 mL/min/1.73 square metersEnd Stage Renal Disease: Less than 15 mL/min/1.73 square meters Performed By: #### C RP, BMP, VANCT, ESR, ADIFF, CBC, GFR, HFP, MG, APTT, PRO, ANEU ####[place] [id number] GFR Non- >60 Normal [facility] ([place]) Comment on above: Result Comment: GFR Population mean for , Non- Americans Ages 20-29 = 116 mL/min/1.73 sq.m. Ages 30-39 = 107 mL/min/1.73 sq.m. Ages 40-49 = 99 mL/min/1.73 sq.m. Ages 50-59 = 93 mL/min/1.73 sq.m. Ages 60-69 = 85 mL/min/1.73 sq.m. Ages 70+ = 75 mL/min/1.73 sq.m.Chronic Kidney Disease: Less than 60 mL/min/1.73 square metersEnd Stage Renal Disease: Less than 15 mL/min/1.73 square meters Performed By: #### C RP, BMP, VANCT, ESR, ADIFF, CBC, GFR, HFP, MG, APTT, PRO, ANEU ####[address] [address] .NEUABSon 10-11-2021 Neutrophil, Absolute 5.40 10 3/mcL Normal 2.25-8.10 A [facility] ([place]) Comment on above: Performed By: #### C RP, BMP, VANCT, ESR, ADIFF, CBC, GFR, HFP, MG, APTT, PRO, ANEU ####[place] [address] APTTon 10-11-2021 aPTT Coag (Bld) [Time] 52.1 s High 25.0-35.0 [facility] ([place]) Comment on above: Order Comment: Recol lect blue top, patient on heparin, not received in lab within an hour, notified Brooke RN Result Comment: For Heparin anticoagulation therapy, the recommendedtherapeutic range is: 54-77 seconds (APTT Correlationwith Anti-Xa therapeutic range of 0.3-0.7 units/ml).PLEASE REFERENCE THE PHARMACY PROTOCOL FOR DOSING. Performed By: #### A PTT ####[place] [address] Heparin dose (APTT) Heparin IV Normal [facility] ([place]) Comment on above: Order Comment: Recol lect blue top, patient on heparin, not received in lab within an hour, notified Brooke RN Performed By: #### A PTT ####[place] [address] aPTT Coag (Bld) [Time] 57.8 s High 25.0-35.0 [facility] ([place]) Comment on above: Result Comment: For Heparin anticoagulation therapy, the recommendedtherapeutic range is: 54-77 seconds (APTT Correlationwith Anti-Xa therapeutic range of 0.3-0.7 units/ml).PLEASE REFERENCE THE PHARMACY PROTOCOL FOR DOSING. Performed By: #### A PTT ####[place] [address] Heparin dose (APTT) Heparin IV Normal [facility] ([place]) Comment on above: Performed By: #### A PTT ####[place] [address] aPTT Coag (Bld) [Time] 71.2 s High 25.0-35.0 [facility] ([place]) Comment on above: Result Comment: For Heparin anticoagulation therapy, the recommendedtherapeutic range is: 54-77 seconds (APTT Correlationwith Anti-Xa therapeutic range of 0.3-0.7 units/ml).PLEASE REFERENCE THE PHARMACY PROTOCOL FOR DOSING. Performed By: #### C RP, BMP, VANCT, ESR, ADIFF, CBC, GFR, HFP, MG, APTT, PRO, ANEU ####[address] [address] Heparin dose (APTT) Heparin IV Normal [facility] ([place]) Comment on above: Performed By: #### C RP, BMP, VANCT, ESR, ADIFF, CBC, GFR, HFP, MG, APTT, PRO, ANEU ####[place] [id number] BMPon 10-11-2021 BUN/Creatinine Ratio 17.5 ratio Normal 10.0-22.0 [facility] ([place]) Comment on above: Performed By: #### C RP, BMP, VANCT, ESR, ADIFF, CBC, GFR, HFP, MG, APTT, PRO, ANEU ####[address] [address] Calcium [Mass/Vol] 9.0 mg/dL Normal 8.4-10.1 [facility] ([place]) Comment on above: Result Comment: No te - New Reference Range in effect 20 Performed By: #### C RP, BMP, VANCT, ESR, ADIFF, CBC, GFR, HFP, MG, APTT, PRO, ANEU ####[address] [address] Chloride [Moles/Vol] 111 mmol/L High 98-110 [facility] ([place]) Comment on above: Performed By: #### C RP, BMP, VANCT, ESR, ADIFF, CBC, GFR, HFP, MG, APTT, PRO, ANEU ####[address] [address] CO2 [Moles/Vol] 23 mmol/L Normal 22-32 [facility] ([place]) Comment on above: Performed By: #### C RP, BMP, VANCT, ESR, ADIFF, CBC, GFR, HFP, MG, APTT, PRO, ANEU ####[place] [address] Creatinine [Mass/Vol] 0.80 mg/dL Normal 0.60-1.40 [facility] ([place]) Comment on above: Performed By: #### C RP, BMP, VANCT, ESR, ADIFF, CBC, GFR, HFP, MG, APTT, PRO, ANEU ####[place] [address] Electrolyte Balance 8.0 mEq/L Normal 4.0-15.0 [facility] ([place]) Comment on above: Performed By: #### C RP, BMP, VANCT, ESR, ADIFF, CBC, GFR, HFP, MG, APTT, PRO, ANEU ####[place] [address] Glucose [Mass/Vol] 81 mg/dL Low 82-115 [facility] ([place]) Comment on above: Performed By: #### C RP, BMP, VANCT, ESR, ADIFF, CBC, GFR, HFP, MG, APTT, PRO, ANEU ####[place] [id number] Potassium [Moles/Vol] 3.8 mmol/L Normal 3.5-5.0 [facility] ([place]) Comment on above: Performed By: #### C RP, BMP, VANCT, ESR, ADIFF, CBC, GFR, HFP, MG, APTT, PRO, ANEU ####[place] [id number] Sodium [Moles/Vol] 142 mmol/L Normal 136-145 [facility] ([place]) Comment on above: Performed By: #### C RP, BMP, VANCT, ESR, ADIFF, CBC, GFR, HFP, MG, APTT, PRO, ANEU ####[address] [address] Urea nitrogen [Mass/Vol] 14.0 mg/dL Normal 8.0-22.0 [facility] ([place]) Comment on above: Performed By: #### C RP, BMP, VANCT, ESR, ADIFF, CBC, GFR, HFP, MG, APTT, PRO, ANEU ####[place] [address] CBCon 10-11-2021 Erythrocyte distribution width (RBC) [Ratio] 13.4 % Normal 11.5-15.5 [facility] ([place]) Comment on above: Performed By: #### C RP, BMP, VANCT, ESR, ADIFF, CBC, GFR, HFP, MG, APTT, PRO, ANEU ####[place] [address] Hematocrit (Bld) [Volume fraction] 42.7 % Normal 40.0-52.0 [facility] ([place]) Comment on above: Performed By: #### C RP, BMP, VANCT, ESR, ADIFF, CBC, GFR, HFP, MG, APTT, PRO, ANEU ####[place] [address] Hgb 14.5 G/dL Normal 13.0-17.5 [facility] ([place]) Comment on above: Performed By: #### C RP, BMP, VANCT, ESR, ADIFF, CBC, GFR, HFP, MG, APTT, PRO, ANEU ####[place] [address] MCH (RBC) [Entitic mass] 31.0 pg Normal 27.0-33.0 [facility] ([place]) Comment on above: Performed By: #### C RP, BMP, VANCT, ESR, ADIFF, CBC, GFR, HFP, MG, APTT, PRO, ANEU ####[place] [address] MCHC 33.8 G/dL Normal 32.0-36.0 [facility] ([place]) Comment on above: Performed By: #### C RP, BMP, VANCT, ESR, ADIFF, CBC, GFR, HFP, MG, APTT, PRO, ANEU ####[place] [address] MCV (RBC) [Entitic vol] 91.7 fL Normal 81.0-100.0 [facility] ([place]) Comment on above: Performed By: #### C RP, BMP, VANCT, ESR, ADIFF, CBC, GFR, HFP, MG, APTT, PRO, ANEU ####[place] [address] Platelet 181 10 3/mcL Normal 150-450 [facility] ([place]) Comment on above: Performed By: #### C RP, BMP, VANCT, ESR, ADIFF, CBC, GFR, HFP, MG, APTT, PRO, ANEU ####[place] [address] Platelet mean volume (Bld) [Entitic vol] 7.6 fL Normal 6.4-10.5 [facility] ([place]) Comment on above: Performed By: #### C RP, BMP, VANCT, ESR, ADIFF, CBC, GFR, HFP, MG, APTT, PRO, ANEU ####[place] [address] RBC 4.66 10 6/mcL Normal 4.50-6.00 [facility] ([place]) Comment on above: Performed By: #### C RP, BMP, VANCT, ESR, ADIFF, CBC, GFR, HFP, MG, APTT, PRO, ANEU ####[place] [address] WBC 7.30 10 3/mcL Normal 4.50-10.80 [facility] ([place]) Comment on above: Performed By: #### C RP, BMP, VANCT, ESR, ADIFF, CBC, GFR, HFP, MG, APTT, PRO, ANEU ####[address] [address] CBLon 10-11-2021 CBL Normal [facility] ([place]) CRPon 10-11-2021 C-Reactive Protein 10.9 mg/dL High 0.0-1.0 [facility] ([place]) Comment on above: Result Comment: No te - New Reference Range in effect 20 Performed By: #### C RP, BMP, VANCT, ESR, ADIFF, CBC, GFR, HFP, MG, APTT, PRO, ANEU ####[address] [address] [address] MAXILLOFACIAL W/ CONTRAST on 10-11-2021 CT MAXILLOFACIAL W/ CONTRAST Normal [facility] ([place]) ESRon 10-11-2021 Erythrocyte Sed Rate 87 mm/hr High 0-20 [facility] ([place]) Comment on above: Performed By: #### C RP, BMP, VANCT, ESR, ADIFF, CBC, GFR, HFP, MG, APTT, PRO, ANEU ####[address] [address] HFPon 10-11-2021 Albumin Level 1.7 G/dL Low 3.2-4.8 [facility] ([place]) Comment on above: Performed By: #### C RP, BMP, VANCT, ESR, ADIFF, CBC, GFR, HFP, MG, APTT, PRO, ANEU ####[address] [address] Albumin/Globulin [Mass ratio] 0.5 {ratio} Low 0.9-1.6 [facility] ([place]) Comment on above: Performed By: #### C RP, BMP, VANCT, ESR, ADIFF, CBC, GFR, HFP, MG, APTT, PRO, ANEU ####[address] [address] ALP [Catalytic activity/Vol] 113 U/L Normal 38-126 [facility] ([place]) Comment on above: Performed By: #### C RP, BMP, VANCT, ESR, ADIFF, CBC, GFR, HFP, MG, APTT, PRO, ANEU ####[address] [address] ALT [Catalytic activity/Vol] 29 U/L Normal 12-55 [facility] ([place]) Comment on above: Performed By: #### C RP, BMP, VANCT, ESR, ADIFF, CBC, GFR, HFP, MG, APTT, PRO, ANEU ####[address] [address] AST [Catalytic activity/Vol] 37 U/L High 8-34 [facility] ([place]) Comment on above: Performed By: #### C RP, BMP, VANCT, ESR, ADIFF, CBC, GFR, HFP, MG, APTT, PRO, ANEU ####[place] [address] Bili Direct 0.2 mg/dL Normal 0.0-0.4 [facility] ([place]) Comment on above: Result Comment: Use of this assay is not recommended for patients undergoing treatment with eltrombopag due to the potential for falsely elevated results. Performed By: #### C RP, BMP, VANCT, ESR, ADIFF, CBC, GFR, HFP, MG, APTT, PRO, ANEU ####[place] [address] Bili Indirect 0.4 mg/dL Normal 0.1-10.0 [facility] ([place]) Comment on above: Performed By: #### C RP, BMP, VANCT, ESR, ADIFF, CBC, GFR, HFP, MG, APTT, PRO, ANEU ####[place] [address] Bili Total 0.60 mg/dL Normal 0.20-1.20 [facility] ([place]) Comment on above: Result Comment: Use of this assay is not recommended for patients undergoing treatment with eltrombopag due to the potential for falsely elevated results. Performed By: #### C RP, BMP, VANCT, ESR, ADIFF, CBC, GFR, HFP, MG, APTT, PRO, ANEU ####[place] [address] Globulin 3.6 G/dL Normal 1.5-3.8 [facility] ([place]) Comment on above: Performed By: #### C RP, BMP, VANCT, ESR, ADIFF, CBC, GFR, HFP, MG, APTT, PRO, ANEU ####[place] [address] Total Protein 5.3 G/dL Low 5.7-8.2 [facility] ([place]) Comment on above: Result Comment: No te - New Reference Range in effect 20 Performed By: #### C RP, BMP, VANCT, ESR, ADIFF, CBC, GFR, HFP, MG, APTT, PRO, ANEU ####[place] [address] LABORATORYOrdered By: Lux marquez on 10-11-2021 Albumin BCP dye [Mass/Vol] 1.7 G/dL Invalid Interpretation Code 3.2 - 4.8 G/dL AH ADM SS Albumin/Globulin [Mass ratio] 0.5 {ratio} Invalid Interpretation Code 0.9 - 1.6 ratio AH ADM SS ALP [Catalytic activity/Vol] 113 U/L Invalid Interpretation Code 38 - 126 U/L AH ADM SS ALT No additional P-5'-P [Catalytic activity/Vol] 29 U/L Invalid Interpretation Code 12 - 55 U/L AH ADM SS AST [Catalytic activity/Vol] 37 U/L Invalid Interpretation Code 8 - 34 U/L AH ADM SS Bili Indirect 0.4 mg/dL Invalid Interpretation Code 0.1 - 10.0 mg/dL AH Chemistry S Bilirubin [Mass/Vol] 0.60 mg/dL Invalid Interpretation Code 0.20 - 1.20 mg/dL AH ADM SS Bilirubin.conjugated [Mass/Vol] 0.2 mg/dL Invalid Interpretation Code 0.0 - 0.4 mg/dL AH ADM SS Globulin 3.6 G/dL Invalid Interpretation Code 1.5 - 3.8 G/dL AH ADM SS LDose Vancomycin:(trough) See eMAR (10/11/21 3:42 AM) Invalid Interpretation Code AH Chemistry S Protein [Mass/Vol] 5.3 G/dL Invalid Interpretation Code 5.7 - 8.2 G/dL AH ADM SS LABORATORYOrdered By: SYSTEM SYSTEM on 10-11-2021 CRP [Mass/Vol] 10.9 mg/dL Invalid Interpretation Code 0.0 - 1.0 mg/dL AH ADM SS Vancomycin trough [Mass/Vol] 8.0 ug/mL Invalid Interpretation Code 5.0 - 20.0 mcg/mL AH ADM SS LABORATORYOrdered By: David Mckee on 10-11-2021 ESR 15 minute reading (Bld) [Velocity] 87 mm/hr Invalid Interpretation Code 0 - 20 mm/hr AH Manual Heme SS Laboratory - Microbiology an d Antimicrobial susceptibilityon 10-11-2021 Bacteria identified Cx Nom (Bld) Culture has been received in lab and is no growth to date. Culture will be held for four weeks. [facility] MGon 10-11-2021 Magnesium [Mass/Vol] 1.9 mg/dL Normal 1.6-2.4 [facility] ([place]) Comment on above: Performed By: #### C RP, BMP, VANCT, ESR, ADIFF, CBC, GFR, HFP, MG, APTT, PRO, ANEU ####[address] [address] No Panel Informationon 10-11 Microscopic examination of blood, culture Blood Culture: No Growth at 5 days. [facility] PROon 10-11-2021 INR Coag (PPP) [Relative time] 1.3 {INR} Normal [facility] ([place]) Comment on above: Result Comment: [employer] (CHEST, 1992, 102:312S-25S)recommended therapeutic range for oral anticoagulant therapy is:LOW RISK: Prophylaxis of venous thrombosis INR: 2.0-3.0 Treatment of pulmonary embolism 2.0-3.0 Prevention of systemic embolism 2.0-3.0HIGH RISK: Mechanical prosthetic valves 2.5-3.5 Performed By: #### C RP, BMP, VANCT, ESR, ADIFF, CBC, GFR, HFP, MG, APTT, PRO, ANEU ####[address] [address] PT Coag (PPP) [Time] 15.8 s High 9.0-14.9 [facility] ([place]) Comment on above: Result Comment: Effe ctive 03/03/08, Protime results may be affected by some antibiotics (i.e. Ciprofloxacin, Azithromycin, Bactrim) which may potentiate the action of oral anticoagulants, with further increases in Protime/INR. Performed By: #### C RP, BMP, VANCT, ESR, ADIFF, CBC, GFR, HFP, MG, APTT, PRO, ANEU ####[place] [id number] [place] [id number] [facility] 10-11-2021 LDose Vancomycin:(trough) See eMAR Normal [facility] ([place]) Comment on above: Performed By: #### C RP, BMP, VANCT, ESR, ADIFF, CBC, GFR, HFP, MG, APTT, PRO, ANEU ####[address] [address] Vancomycin Tr 8.0 mcg/mL Normal 5.0-20.0 [facility] ([place]) Comment on above: Performed By: #### C RP, BMP, VANCT, ESR, ADIFF, CBC, GFR, HFP, MG, APTT, PRO, ANEU ####[address] [address] XR ESOPHOGRAM W/ AIRon 10-11 XR ESOPHOGRAM W/ AIR Normal [facility] ([place]) .Auto Diffon 10-10-2021 Basophil, Absolute 0.00 10 3/mcL Normal 0.00-0.27 [facility] ([place]) Comment on above: Performed By: #### C ZEB MEJIA, ANEU ####[address] [address] Basophils/100 WBC (Bld) 0.4 % Normal 0.0-2.5 [facility] ([place]) Comment on above: Performed By: #### C ZEB MEJIA ANEU ####[address] [address] Eosinophil, Absolute 0.20 10 3/mcL Normal 0.00-0.65 [facility] ([place]) Comment on above: Performed By: #### C ZEB MEJIA, ANEU ####[address] [address] Eosinophils/100 WBC (Bld) 2.6 % Normal 0.0-6.0 [facility] ([place]) Comment on above: Performed By: #### C ZEB MEJIA, ANEU ####[address] [address] Lymphocyte, Absolute 0.70 10 3/mcL Low 0.90-4.32 A [facility] ([place]) Comment on above: Performed By: #### C ZEB MEJIA, ANEU ####[address] [address] Lymphocytes/100 WBC (Bld) 9.0 % Low 20.0-40.0 [facility] ([place]) Comment on above: Performed By: #### C ZEB MEJIA ANEU ####[address] [address] Monocyte, Absolute 1.10 10 3/mcL Normal 0.09-1.40 [facility] ([place]) Comment on above: Performed By: #### C ZEB MEIJA ANEU ####[address] [address] Monocytes/100 WBC (Bld) 14.0 % High 2.0-13.0 [facility] ([place]) Comment on above: Performed By: #### C ZEB MEJIA ANEU ####[address] [address] Neutrophils/100 WBC (Bld) 74.0 % Normal 50.0-75.0 [facility] ([place]) Comment on above: Performed By: #### ZEB TORRES ANEU ####[address] [address] .GFRon 10-10-2021 GFR >60 Normal [facility] ([place]) Comment on above: Result Comment: GFR Population mean for , Non- Americans Ages 20-29 = 116 mL/min/1.73 sq.m. Ages 30-39 = 107 mL/min/1.73 sq.m. Ages 40-49 = 99 mL/min/1.73 sq.m. Ages 50-59 = 93 mL/min/1.73 sq.m. Ages 60-69 = 85 mL/min/1.73 sq.m. Ages 70+ = 75 mL/min/1.73 sq.m.Chronic Kidney Disease: Less than 60 mL/min/1.73 square metersEnd Stage Renal Disease: Less than 15 mL/min/1.73 square meters Performed By: #### B MP, GFR, PRO, APTT ####[address] [address] GFR Non- >60 Normal [facility] ([place]) Comment on above: Result Comment: GFR Population mean for , Non- Americans Ages 20-29 = 116 mL/min/1.73 sq.m. Ages 30-39 = 107 mL/min/1.73 sq.m. Ages 40-49 = 99 mL/min/1.73 sq.m. Ages 50-59 = 93 mL/min/1.73 sq.m. Ages 60-69 = 85 mL/min/1.73 sq.m. Ages 70+ = 75 mL/min/1.73 sq.m.Chronic Kidney Disease: Less than 60 mL/min/1.73 square metersEnd Stage Renal Disease: Less than 15 mL/min/1.73 square meters Performed By: #### B MP, GFR, PRO, APTT ####[place] [address] .NEUABSon 10-10-2021 Neutrophil, Absolute 6.00 10 3/mcL Normal 2.25-8.10 A [facility] ([place]) Comment on above: Performed By: #### C BC, ADIFF, ANEU ####[place] [address] APTTon 10-10-2021 aPTT Coag (Bld) [Time] 59.9 s High 25.0-35.0 [facility] ([place]) Comment on above: Result Comment: For Heparin anticoagulation therapy, the recommendedtherapeutic range is: 54-77 seconds (APTT Correlationwith Anti-Xa therapeutic range of 0.3-0.7 units/ml).PLEASE REFERENCE THE PHARMACY PROTOCOL FOR DOSING. Performed By: #### A PTT ####[place] [address] Heparin dose (APTT) Heparin IV Normal [facility] ([place]) Comment on above: Performed By: #### A PTT ####[place] [address] aPTT Coag (Bld) [Time] 54.1 s High 25.0-35.0 [facility] ([place]) Comment on above: Result Comment: For Heparin anticoagulation therapy, the recommendedtherapeutic range is: 54-77 seconds (APTT Correlationwith Anti-Xa therapeutic range of 0.3-0.7 units/ml).PLEASE REFERENCE THE PHARMACY PROTOCOL FOR DOSING. Performed By: #### B MP, GFR, PRO, APTT ####[place] [id number] Heparin dose (APTT) Heparin IV Normal [facility] ([place]) Comment on above: Performed By: #### B MP, GFR, PRO, APTT ####[address] [address] BMPon 10-10-2021 BUN/Creatinine Ratio 18.8 ratio Normal 10.0-22.0 [facility] ([place]) Comment on above: Performed By: #### B MP, GFR, PRO, APTT ####[place] [id number] Calcium [Mass/Vol] 9.3 mg/dL Normal 8.4-10.1 [facility] ([place]) Comment on above: Result Comment: No te - New Reference Range in effect 20 Performed By: #### B MP, GFR, PRO, APTT ####[place] [address] Chloride [Moles/Vol] 113 mmol/L High 98-110 [facility] ([place]) Comment on above: Performed By: #### B MP, GFR, PRO, APTT ####[place] [address] CO2 [Moles/Vol] 22 mmol/L Normal 22-32 [facility] ([place]) Comment on above: Performed By: #### B MP, GFR, PRO, APTT ####[place] [address] Creatinine [Mass/Vol] 0.85 mg/dL Normal 0.60-1.40 [facility] ([place]) Comment on above: Performed By: #### B MP, GFR, PRO, APTT ####[place] [address] Electrolyte Balance 6.0 mEq/L Normal 4.0-15.0 [facility] ([place]) Comment on above: Performed By: #### B MP, GFR, PRO, APTT ####[address] [address] Glucose [Mass/Vol] 98 mg/dL Normal 82-115 [facility] ([place]) Comment on above: Performed By: #### B MP, GFR, PRO, APTT ####[address] [address] Potassium [Moles/Vol] 4.1 mmol/L Normal 3.5-5.0 [facility] ([place]) Comment on above: Performed By: #### B MP, GFR, PRO, APTT ####[address] [address] Sodium [Moles/Vol] 141 mmol/L Normal 136-145 [facility] ([place]) Comment on above: Performed By: #### B MP, GFR, PRO, APTT ####[place] [address] Urea nitrogen [Mass/Vol] 16.0 mg/dL Normal 8.0-22.0 [facility] ([place]) Comment on above: Performed By: #### B MP, GFR, PRO, APTT ####[address] [address] CBCon 10-10-2021 Erythrocyte distribution width (RBC) [Ratio] 13.7 % Normal 11.5-15.5 [facility] ([place]) Comment on above: Performed By: #### C ZEB MEJIA, ANEU ####[place] [address] Hematocrit (Bld) [Volume fraction] 44.3 % Normal 40.0-52.0 [facility] ([place]) Comment on above: Performed By: #### C ZEB MEJIA, ANEU ####[address] [address] Hgb 14.7 G/dL Normal 13.0-17.5 [facility] ([place]) Comment on above: Performed By: #### ZEB TORRES, ANEU ####[address] [address] MCH (RBC) [Entitic mass] 30.5 pg Normal 27.0-33.0 [facility] ([place]) Comment on above: Performed By: #### C ZEB MEJIA, ANEU ####[address] [address] MCHC 33.1 G/dL Normal 32.0-36.0 [facility] ([place]) Comment on above: Performed By: #### C ZEB MEJIA, ANEU ####[address] [address] MCV (RBC) [Entitic vol] 92.1 fL Normal 81.0-100.0 [facility] ([place]) Comment on above: Performed By: #### C ZEB MEJIA, ANEU ####[place] [address] Platelet 199 10 3/mcL Normal 150-450 [facility] ([place]) Comment on above: Performed By: #### ZEB TORRES, ANEU ####[place] [address] Platelet mean volume (Bld) [Entitic vol] 8.0 fL Normal 6.4-10.5 [facility] ([place]) Comment on above: Performed By: #### C ZEB MEJIA, ANEU ####[place] [address] RBC 4.81 10 6/mcL Normal 4.50-6.00 [facility] ([place]) Comment on above: Performed By: #### ZEB TORRES, ANEU ####[place] [address] WBC 8.10 10 3/mcL Normal 4.50-10.80 [facility] ([place]) Comment on above: Performed By: #### ZEB TORRES, ANEU ####[place] [address] CBLon 10-10-2021 CBL Normal [facility] ([place]) PROon 10-10-2021 INR Coag (PPP) [Relative time] 1.4 {INR} Normal [facility] ([place]) Comment on above: Result Comment: [employer] [employer] (CHEST, 1992, 102:312S-25S)recommended therapeutic range for oral anticoagulant therapy is:LOW RISK: Prophylaxis of venous thrombosis INR: 2.0-3.0 Treatment of pulmonary embolism 2.0-3.0 Prevention of systemic embolism 2.0-3.0HIGH RISK: Mechanical prosthetic valves 2.5-3.5 Performed By: #### B MP, GFR, PRO, APTT ####[address] [address] PT Coag (PPP) [Time] 16.4 s High 9.0-14.9 [facility] ([place]) Comment on above: Result Comment: Effe ctive 03/03/08, Protime results may be affected by some antibiotics (i.e. Ciprofloxacin, Azithromycin, Bactrim) which may potentiate the action of oral anticoagulants, with further increases in Protime/INR. Performed By: #### B MP, GFR, PRO, APTT ####[address] [address] XR CHEST 2 VIEWSon XR CHEST 2 VIEWS Normal [facility] ([place]) XR TIBIA/FIBULA 2 VIEWS LEFT on 10-10-2021 XR TIBIA/FIBULA 2 VIEWS LEFT Normal [facility] ([place]) XR TIBIA/FIBULA 2 VIEWS RIGH Ton 10-10-2021 XR TIBIA/FIBULA 2 VIEWS RIGHT Normal [facility] ([place]) .Auto Diffon 10-09-2021 Basophil, Absolute 0.00 10 3/mcL Normal 0.00-0.27 [facility] ([place]) Comment on above: Performed By: #### A PTT, ADIFF, ANEU, PRO, CBC ####[address] [address] Basophils/100 WBC (Bld) 0.3 % Normal 0.0-2.5 [facility] ([place]) Comment on above: Performed By: #### A PTT, ADIFF, ANEU, PRO, CBC ####[address] [address] Eosinophil, Absolute 0.10 10 3/mcL Normal 0.00-0.65 A [facility] ([place]) Comment on above: Performed By: #### A PTT, ADIFF, ANEU, PRO, CBC ####[address] [address] Eosinophils/100 WBC (Bld) 1.8 % Normal 0.0-6.0 [facility] ([place]) Comment on above: Performed By: #### A PTT, ADIFF, ANEU, PRO, CBC ####[address] [address] Lymphocyte, Absolute 0.50 10 3/mcL Low 0.90-4.32 A [facility] ([place]) Comment on above: Performed By: #### A PTT, ADIFF, ANEU, PRO, CBC ####[address] [address] Lymphocytes/100 WBC (Bld) 6.2 % Low 20.0-40.0 [facility] ([place]) Comment on above: Performed By: #### A PTT, ADIFF, ANEU, PRO, CBC ####[address] [address] Monocyte, Absolute 0.90 10 3/mcL Normal 0.09-1.40 [facility] ([place]) Comment on above: Performed By: #### A PTT, ADIFF, ANEU, PRO, CBC ####[address] [address] Monocytes/100 WBC (Bld) 10.6 % Normal 2.0-13.0 [facility] ([place]) Comment on above: Performed By: #### A PTT, ADIFF, ANEU, PRO, CBC ####[address] [address] Neutrophils/100 WBC (Bld) 81.1 % High 50.0-75.0 [facility] ([place]) Comment on above: Performed By: #### A PTT, ADIFF, ANEU, PRO, CBC ####[address] [address] Basophil, Absolute 0.00 10 3/mcL Normal 0.00-0.27 [facility] ([place]) Comment on above: Performed By: #### A DIFF, ANEU, CBC ####[address] [address] Basophils/100 WBC (Bld) 0.1 % Normal 0.0-2.5 [facility] ([place]) Comment on above: Performed By: #### A DIFF, ANEU, CBC ####[address] [address] Eosinophil, Absolute 0.10 10 3/mcL Normal 0.00-0.65 A [facility] ([place]) Comment on above: Performed By: #### A DIFF, ANEU, CBC ####[address] [address] Eosinophils/100 WBC (Bld) 1.7 % Normal 0.0-6.0 [facility] ([place]) Comment on above: Performed By: #### A DIFF, ANEU, CBC ####[address] [address] Lymphocyte, Absolute 0.60 10 3/mcL Low 0.90-4.32 A [facility] ([place]) Comment on above: Performed By: #### A DIFF, ANEU, CBC ####[address] [address] Lymphocytes/100 WBC (Bld) 7.0 % Low 20.0-40.0 [facility] ([place]) Comment on above: Performed By: #### A DIFF, ANEU, CBC ####[address] [address] Monocyte, Absolute 1.20 10 3/mcL Normal 0.09-1.40 [facility] ([place]) Comment on above: Performed By: #### A DIFF, ANEU, CBC ####[address] [address] Monocytes/100 WBC (Bld) 14.5 % High 2.0-13.0 [facility] ([place]) Comment on above: Performed By: #### A DIFF, ANEU, CBC ####[address] [address] Neutrophils/100 WBC (Bld) 76.7 % High 50.0-75.0 [facility] ([place]) Comment on above: Performed By: #### A DIFF, ANEU, CBC ####[address] [address] .GFRon 10-09-2021 GFR >60 Normal [facility] ([place]) Comment on above: Result Comment: GFR Population mean for , Non- Americans Ages 20-29 = 116 mL/min/1.73 sq.m. Ages 30-39 = 107 mL/min/1.73 sq.m. Ages 40-49 = 99 mL/min/1.73 sq.m. Ages 50-59 = 93 mL/min/1.73 sq.m. Ages 60-69 = 85 mL/min/1.73 sq.m. Ages 70+ = 75 mL/min/1.73 sq.m.Chronic Kidney Disease: Less than 60 mL/min/1.73 square metersEnd Stage Renal Disease: Less than 15 mL/min/1.73 square meters Performed By: #### G FR, PRO, BMP ####[place] [address] GFR Non- >60 Normal [facility] ([place]) Comment on above: Result Comment: GFR Population mean for , Non- Americans Ages 20-29 = 116 mL/min/1.73 sq.m. Ages 30-39 = 107 mL/min/1.73 sq.m. Ages 40-49 = 99 mL/min/1.73 sq.m. Ages 50-59 = 93 mL/min/1.73 sq.m. Ages 60-69 = 85 mL/min/1.73 sq.m. Ages 70+ = 75 mL/min/1.73 sq.m.Chronic Kidney Disease: Less than 60 mL/min/1.73 square metersEnd Stage Renal Disease: Less than 15 mL/min/1.73 square meters Performed By: #### G FR, PRO, BMP ####[place] [address] .NEUABSon 10-09-2021 Neutrophil, Absolute 6.60 10 3/mcL Normal 2.25-8.10 [facility] ([place]) Comment on above: Performed By: #### A PTT, ADIFF, ANEU, PRO, CBC ####[place] [address] Neutrophil, Absolute 6.10 10 3/mcL Normal 2.25-8.10 [facility] ([place]) Comment on above: Performed By: #### A DIFF, ANEU, CBC ####[place] [address] APTTon 10-09-2021 aPTT Coag (Bld) [Time] 80.1 s High 25.0-35.0 [facility] ([place]) Comment on above: Order Comment: pleas e re collect specimen clotted notified [facility] 10/09/2021 19:11:13 EST Result Comment: For Heparin anticoagulation therapy, the recommendedtherapeutic range is: 54-77 seconds (APTT Correlationwith Anti-Xa therapeutic range of 0.3-0.7 units/ml).PLEASE REFERENCE THE PHARMACY PROTOCOL FOR DOSING. Performed By: #### A PTT ####[place] [address] Heparin dose (APTT) None Normal [facility] ([place]) Comment on above: Order Comment: kale ruiz re collect specimen clotted notified [facility] 10/09/2021 19:11:13 EST Performed By: #### A PTT ####[place] [address] aPTT Coag (Bld) [Time] 47.6 s High 25.0-35.0 [facility] ([place]) Comment on above: Result Comment: For Heparin anticoagulation therapy, the recommendedtherapeutic range is: 54-77 seconds (APTT Correlationwith Anti-Xa therapeutic range of 0.3-0.7 units/ml).PLEASE REFERENCE THE PHARMACY PROTOCOL FOR DOSING. Performed By: #### A PTT, ADIFF, ANEU, PRO, CBC ####[address] [address] Heparin dose (APTT) Heparin Bolus Normal [facility] ([place]) Comment on above: Performed By: #### A PTT, ADIFF, ANEU, PRO, CBC ####[address] [address] aPTT Coag (Bld) [Time] 53.8 s High 25.0-35.0 [facility] ([place]) Comment on above: Order Comment: to ge toff lab specimenadded to protime Result Comment: For Heparin anticoagulation therapy, the recommendedtherapeutic range is: 54-77 seconds (APTT Correlationwith Anti-Xa therapeutic range of 0.3-0.7 units/ml).PLEASE REFERENCE THE PHARMACY PROTOCOL FOR DOSING. Performed By: #### A PTT ####[place] [address] Heparin dose (APTT) Unknown Normal [facility] ([place]) Comment on above: Order Comment: to ge toff lab specimenadded to protime Performed By: #### A PTT ####[place] [address] BMPon 10-09-2021 BUN/Creatinine Ratio 22.9 ratio High 10.0-22.0 [facility] ([place]) Comment on above: Performed By: #### G FR, PRO, BMP ####[place] [address] Calcium [Mass/Vol] 9.0 mg/dL Normal 8.4-10.1 [facility] ([place]) Comment on above: Result Comment: No te - New Reference Range in effect 20 Performed By: #### G FR, PRO, BMP ####[place] [address] Chloride [Moles/Vol] 110 mmol/L Normal 98-110 [facility] ([place]) Comment on above: Performed By: #### G FR, PRO, BMP ####[place] [address] CO2 [Moles/Vol] 24 mmol/L Normal 22-32 [facility] ([place]) Comment on above: Performed By: #### G FR, PRO, BMP ####[place] [address] Creatinine [Mass/Vol] 0.83 mg/dL Normal 0.60-1.40 [facility] ([place]) Comment on above: Performed By: #### G FR, PRO, BMP ####[place] [address] Electrolyte Balance 6.0 mEq/L Normal 4.0-15.0 [facility] ([place]) Comment on above: Performed By: #### Ashley FR PRO, BMP ####[place] [address] Glucose [Mass/Vol] 127 mg/dL High 82-115 [facility] ([place]) Comment on above: Performed By: #### Ashley FR PRO, BMP ####[place] [address] Potassium [Moles/Vol] 3.9 mmol/L Normal 3.5-5.0 [facility] ([place]) Comment on above: Performed By: #### Ashley FR PRO, BMP ####[place] [address] Sodium [Moles/Vol] 140 mmol/L Normal 136-145 [facility] ([place]) Comment on above: Performed By: #### Ashley FR PRO, BMP ####[place] [address] Urea nitrogen [Mass/Vol] 19.0 mg/dL Normal 8.0-22.0 [facility] ([place]) Comment on above: Performed By: #### Ashley FR PRO, BMP ####[place] [address] CBCon 10-09-2021 Erythrocyte distribution width (RBC) [Ratio] 13.6 % Normal 11.5-15.5 [facility] ([place]) Comment on above: Performed By: #### A PTT, ADIFF, ANEU, PRO, CBC ####[place] [address] Hematocrit (Bld) [Volume fraction] 48.9 % Normal 40.0-52.0 [facility] ([place]) Comment on above: Performed By: #### A PTT, ADIFF, ANEU, PRO, CBC ####[address] [address] Hgb 16.0 G/dL Normal 13.0-17.5 [facility] ([place]) Comment on above: Performed By: #### A PTT, ADIFF, ANEU, PRO, CBC ####[place] [address] MCH (RBC) [Entitic mass] 30.5 pg Normal 27.0-33.0 [facility] ([place]) Comment on above: Performed By: #### A PTT, ADIFF, ANEU, PRO, CBC ####[place] [address] MCHC 32.6 G/dL Normal 32.0-36.0 [facility] ([place]) Comment on above: Performed By: #### A PTT, ADIFF, ANEU, PRO, CBC ####[place] [address] MCV (RBC) [Entitic vol] 93.5 fL Normal 81.0-100.0 [facility] ([place]) Comment on above: Performed By: #### A PTT, ADIFF, ANEU, PRO, CBC ####[place] [address] Platelet 185 10 3/mcL Normal 150-450 [facility] ([place]) Comment on above: Performed By: #### A PTT, ADIFF, ANEU, PRO, CBC ####[place] [address] Platelet mean volume (Bld) [Entitic vol] 7.5 fL Normal 6.4-10.5 [facility] ([place]) Comment on above: Performed By: #### A PTT, ADIFF, ANEU, PRO, CBC ####[place] [address] RBC 5.23 10 6/mcL Normal 4.50-6.00 [facility] ([place]) Comment on above: Performed By: #### A PTT, ADIFF, ANEU, PRO, CBC ####[place] [address] WBC 8.20 10 3/mcL Normal 4.50-10.80 [facility] ([place]) Comment on above: Performed By: #### A PTT, ADIFF, ANEU, PRO, CBC ####[place] [address] Erythrocyte distribution width (RBC) [Ratio] 13.5 % Normal 11.5-15.5 [facility] ([place]) Comment on above: Performed By: #### A DIFF, ANEU, CBC ####[place] [address] Hematocrit (Bld) [Volume fraction] 45.6 % Normal 40.0-52.0 [facility] ([place]) Comment on above: Performed By: #### A DIFF, ANEU, CBC ####[place] [address] Hgb 15.5 G/dL Normal 13.0-17.5 [facility] ([place]) Comment on above: Performed By: #### A DIFF, ANEU, CBC ####[place] [address] MCH (RBC) [Entitic mass] 31.1 pg Normal 27.0-33.0 [facility] ([place]) Comment on above: Performed By: #### A DIFF, ANEU, CBC ####[place] [address] MCHC 34.0 G/dL Normal 32.0-36.0 [facility] ([place]) Comment on above: Performed By: #### A DIFF, ANEU, CBC ####[place] [address] MCV (RBC) [Entitic vol] 91.5 fL Normal 81.0-100.0 [facility] ([place]) Comment on above: Performed By: #### A DIFF, ANEU, CBC ####[place] [address] Platelet 193 10 3/mcL Normal 150-450 [facility] ([place]) Comment on above: Performed By: #### A DIFF, ANEU, CBC ####[place] [address] Platelet mean volume (Bld) [Entitic vol] 7.6 fL Normal 6.4-10.5 [facility] ([place]) Comment on above: Performed By: #### A DIFF, ANEU, CBC ####[place] [address] RBC 4.98 10 6/mcL Normal 4.50-6.00 [facility] ([place]) Comment on above: Performed By: #### A DIFF, ANEU, CBC ####[address] [address] WBC 7.90 10 3/mcL Normal 4.50-10.80 [facility] ([place]) Comment on above: Performed By: #### A DIFF, ANEU, CBC ####[address] [address] No Panel Informationon 10-09 GSAER Gram Positive Cocci in clusters [facility] Microscopic examination of blood, culture Staphylococcus epidermidis Isolated from aerobe bottle only. Refer to previous culture for susceptibility. [id number] [facility] Microscopic examination of blood, culture Blood Culture: No Growth at 5 days. [facility] PROon 10-09-2021 INR Coag (PPP) [Relative time] 1.5 {INR} Normal [facility] ([place]) Comment on above: Result Comment: [employer] (CHEST, 1992, 102:312S-25S)recommended therapeutic range for oral anticoagulant therapy is:LOW RISK: Prophylaxis of venous thrombosis INR: 2.0-3.0 Treatment of pulmonary embolism 2.0-3.0 Prevention of systemic embolism 2.0-3.0HIGH RISK: Mechanical prosthetic valves 2.5-3.5 Performed By: #### A PTT, ADIFF, ANEU, PRO, CBC ####[address] [address] PT Coag (PPP) [Time] 17.8 s High 9.0-14.9 [facility] ([place]) Comment on above: Result Comment: Effe ctive 03/03/08, Protime results may be affected by some antibiotics (i.e. Ciprofloxacin, Azithromycin, Bactrim) which may potentiate the action of oral anticoagulants, with further increases in Protime/INR. Performed By: #### A PTT, ADIFF, ANEU, PRO, CBC ####[address] [address] INR Coag (PPP) [Relative time] 1.6 {INR} Normal [facility] ([place]) Comment on above: Result Comment: [employer] [place] (CHEST, 1992, 102:312S-25S)recommended therapeutic range for oral anticoagulant therapy is:LOW RISK: Prophylaxis of venous thrombosis INR: 2.0-3.0 Treatment of pulmonary embolism 2.0-3.0 Prevention of systemic embolism 2.0-3.0HIGH RISK: Mechanical prosthetic valves 2.5-3.5 Performed By: #### G FR, PRO, BMP ####[address] [address] PT Coag (PPP) [Time] 19.6 s High 9.0-14.9 [facility] ([place]) Comment on above: Result Comment: Effe ctive 03/03/08, Protime results may be affected by some antibiotics (i.e. Ciprofloxacin, Azithromycin, Bactrim) which may potentiate the action of oral anticoagulants, with further increases in Protime/INR. Performed By: #### G FR, PRO, BMP ####[address] [address] .Auto Diffon 10-08-2021 Basophil, Absolute 0.00 10 3/mcL Normal 0.00-0.27 [facility] ([place]) Comment on above: Performed By: #### B MP, GFR, ADIFF, ANEU, CBC ####[address] [address] Basophils/100 WBC (Bld) 0.2 % Normal 0.0-2.5 [facility] ([place]) Comment on above: Performed By: #### B MP, GFR, ADIFF, ANEU, CBC ####[address] [address] Eosinophil, Absolute 0.10 10 3/mcL Normal 0.00-0.65 [facility] ([place]) Comment on above: Performed By: #### B MP, GFR, ADIFF, ANEU, CBC ####[address] [address] Eosinophils/100 WBC (Bld) 1.5 % Normal 0.0-6.0 [facility] ([place]) Comment on above: Performed By: #### B MP, GFR, ADIFF, ANEU, CBC ####[address] [address] Lymphocyte, Absolute 0.50 10 3/mcL Low 0.90-4.32 [facility] ([place]) Comment on above: Performed By: #### B MP, GFR, ADIFF, ANEU, CBC ####[address] [address] Lymphocytes/100 WBC (Bld) 6.0 % Low 20.0-40.0 [facility] ([place]) Comment on above: Performed By: #### B MP, GFR, ADIFF, ANEU, CBC ####[address] [address] Monocyte, Absolute 1.40 10 3/mcL Normal 0.09-1.40 [facility] ([place]) Comment on above: Performed By: #### B MP, GFR, ADIFF, ANEU, CBC ####[address] [address] Monocytes/100 WBC (Bld) 15.5 % High 2.0-13.0 [facility] ([place]) Comment on above: Performed By: #### B MP, GFR, ADIFF, ANEU, CBC ####[address] [address] Neutrophils/100 WBC (Bld) 76.8 % High 50.0-75.0 [facility] ([place]) Comment on above: Performed By: #### B MP, GFR, ADIFF, ANEU, CBC ####[address] [address] .GFRon 10-08-2021 GFR >60 Normal [facility] ([place]) Comment on above: Result Comment: GFR Population mean for , Non- Americans Ages 20-29 = 116 mL/min/1.73 sq.m. Ages 30-39 = 107 mL/min/1.73 sq.m. Ages 40-49 = 99 mL/min/1.73 sq.m. Ages 50-59 = 93 mL/min/1.73 sq.m. Ages 60-69 = 85 mL/min/1.73 sq.m. Ages 70+ = 75 mL/min/1.73 sq.m.Chronic Kidney Disease: Less than 60 mL/min/1.73 square metersEnd Stage Renal Disease: Less than 15 mL/min/1.73 square meters Performed By: #### B MP, GFR, ADIFF, ANEU, CBC ####[place] [address] GFR Non- >60 Normal [facility] ([place]) Comment on above: Result Comment: GFR Population mean for , Non- Americans Ages 20-29 = 116 mL/min/1.73 sq.m. Ages 30-39 = 107 mL/min/1.73 sq.m. Ages 40-49 = 99 mL/min/1.73 sq.m. Ages 50-59 = 93 mL/min/1.73 sq.m. Ages 60-69 = 85 mL/min/1.73 sq.m. Ages 70+ = 75 mL/min/1.73 sq.m.Chronic Kidney Disease: Less than 60 mL/min/1.73 square metersEnd Stage Renal Disease: Less than 15 mL/min/1.73 square meters Performed By: #### B MP, GFR, ADIFF, ANEU, CBC ####[place] [address] .NEUABSon 10-08-2021 Neutrophil, Absolute 6.80 10 3/mcL Normal 2.25-8.10 [facility] ([place]) Comment on above: Performed By: #### B MP, GFR, ADIFF, ANEU, CBC ####[place] [address] APTTon 10-08-2021 aPTT Coag (Bld) [Time] 86.6 s High 25.0-35.0 [facility] ([place]) Comment on above: Result Comment: For Heparin anticoagulation therapy, the recommendedtherapeutic range is: 54-77 seconds (APTT Correlationwith Anti-Xa therapeutic range of 0.3-0.7 units/ml).PLEASE REFERENCE THE PHARMACY PROTOCOL FOR DOSING. Performed By: #### P RO, APTT ####[place] [address] Heparin dose (APTT) Unknown Normal [facility] ([place]) Comment on above: Performed By: #### P RO, APTT ####[place] [address] aPTT Coag (Bld) [Time] 78.1 s High 25.0-35.0 [facility] ([place]) Comment on above: Result Comment: For Heparin anticoagulation therapy, the recommendedtherapeutic range is: 54-77 seconds (APTT Correlationwith Anti-Xa therapeutic range of 0.3-0.7 units/ml).PLEASE REFERENCE THE PHARMACY PROTOCOL FOR DOSING. Performed By: #### A PTT, PRO ####[place] [address] Heparin dose (APTT) Unknown Normal [facility] ([place]) Comment on above: Performed By: #### A PTT, PRO ####[place] [address] BCIDon 10-08-2021 Acinetobacter baumannii Not detected Normal Not Detected [facility] ([place]) Comment on above: Performed By: #### B ANDI ####[place] [address] BCID Comment See Comment Normal [facility] ([place]) Comment on above: Result Comment: A N ot Detected result for the Film[employer] antimicrobial resistance gene does not indicate susceptibility as multiple mechanisms of resistance to methicillin, vancomycin and carbapenems exist. Identification and susceptibility results to follow.If BCID panel was negative (Not Detected) for all targets, thisdoes not exclude a blood stream infection. Our blood culture system detectedgrowth. Species identification and susceptibility testing (if appropriate) tofollow. Performed By: #### B ANDI ####[place] [address] Adeline albicans Not detected Normal Not Detected [facility] ([place]) Comment on above: Performed By: #### B ANDI ####[place] [address] Adeline glabrata Not detected Normal Not Detected [facility] ([place]) Comment on above: Performed By: #### B ANDI ####[facility] [place] [address] Adeline krusei Not detected Normal Not Detected [facility] ([place]) Comment on above: Performed By: #### B ANDI ####[facility] [place] [address] Adeline parapsilosis Not detected Normal Not Detected [facility] ([place]) Comment on above: Performed By: #### B ANDI ####[facility] [place] [address] Adeline tropicalis Not detected Normal Not Detected [facility] ([place]) Comment on above: Performed By: #### B ANDI ####[facility] [place] [address] E. Coli Not detected Normal Not Detected [facility] ([place]) Comment on above: Performed By: #### B ANDI ####[place] [address] Enterobacter cloacae Complex Not detected Normal Not Detected [facility] ([place]) Comment on above: Performed By: #### B ANDI ####[place] [address] Enterobacteriaceae Not detected Normal Not Detected [facility] ([place]) Comment on above: Performed By: #### B ANDI ####[place] [address] Enterococcus Not detected Normal Not Detected [facility] ([place]) Comment on above: Performed By: #### B ANDI ####[place] [address] Haemophilus influenzae Not detected Normal Not Detected [facility] ([place]) Comment on above: Performed By: #### B ANDI ####[facility] [place] [address] Klebsiella oxytoca Not detected Normal Not Detected [facility] ([place]) Comment on above: Performed By: #### B ANDI ####[place] [address] Klebsiella pneumoniae Not detected Normal Not Detected [facility] ([place]) Comment on above: Performed By: #### B ANDI ####[place] [address] Listeria monocytogenes Not detected Normal Not Detected [facility] ([place]) Comment on above: Performed By: #### B ANDI ####[place] [address] MecA Not detected Normal Not Detected [facility] ([place]) Comment on above: Performed By: #### B ANDI ####[place] [address] Neisseria meningitidis Not detected Normal Not Detected [facility] ([place]) Comment on above: Performed By: #### B ANDI ####[place] [address] Proteus Not detected Normal Not Detected [facility] ([place]) Comment on above: Performed By: #### B ANDI ####[place] [address] Pseudomonas aeruginosa Not detected Normal Not Detected [facility] ([place]) Comment on above: Performed By: #### B ANDI ####[place] [address] S. agalactiae Org specific cx Ql (Vag fld) Not detected Normal Not Detected [facility] ([place]) Comment on above: Performed By: #### B ANDI ####[place] [address] Serratia marcescens Not detected Normal Not Detected [facility] ([place]) Comment on above: Performed By: #### B ANDI ####[place] [address] Staphylococcus Detected Abnormal Not Detected [facility] ([place]) Comment on above: Performed By: #### B ANDI ####[place] [address] Staphylococcus aureus Not detected Normal Not Detected [facility] ([place]) Comment on above: Result Comment: If S taphylococcus aureus is Detected, an Infectious Disease physician consult is required on identification. Performed By: #### B ANDI ####[place] [address] Streptococcus Not detected Normal Not Detected [facility] ([place]) Comment on above: Performed By: #### B ANDI ####[address] [place] [address] Streptococcus pneumoniae Not detected Normal Not Detected [facility] ([place]) Comment on above: Performed By: #### B ANDI ####[place] [address] Streptococcus pyogenes Not detected Normal Not Detected [facility] ([place]) Comment on above: Performed By: #### B ANDI ####[address] [address] BMPon 10-08-2021 BUN/Creatinine Ratio 33.3 ratio High 10.0-22.0 [facility] ([place]) Comment on above: Performed By: #### B MP, GFR, ADIFF, ANEU, CBC ####[place] [address] Calcium [Mass/Vol] 9.3 mg/dL Normal 8.4-10.1 [facility] ([place]) Comment on above: Result Comment: No te - New Reference Range in effect 20 Performed By: #### B MP, GFR, ADIFF, ANEU, CBC ####[place] [address] Chloride [Moles/Vol] 108 mmol/L Normal 98-110 [facility] ([place]) Comment on above: Performed By: #### B MP, GFR, ADIFF, ANEU, CBC ####[place] [address] CO2 [Moles/Vol] 22 mmol/L Normal 22-32 [facility] ([place]) Comment on above: Performed By: #### B MP, GFR, ADIFF, ANEU, CBC ####[place] [address] Creatinine [Mass/Vol] 0.87 mg/dL Normal 0.60-1.40 [facility] ([place]) Comment on above: Performed By: #### B MP, GFR, ADIFF, ANEU, CBC ####[place] [address] Electrolyte Balance 5.0 mEq/L Normal 4.0-15.0 [facility] ([place]) Comment on above: Performed By: #### B MP, GFR, ADIFF, ANEU, CBC ####[place] [address] Glucose [Mass/Vol] 146 mg/dL High 82-115 [facility] ([place]) Comment on above: Performed By: #### B MP, GFR, ADIFF, ANEU, CBC ####[place] [address] Potassium [Moles/Vol] 4.3 mmol/L Normal 3.5-5.0 [facility] ([place]) Comment on above: Performed By: #### B MP, GFR, ADIFF, ANEU, CBC ####[place] [address] Sodium [Moles/Vol] 135 mmol/L Low 136-145 [facility] ([place]) Comment on above: Performed By: #### B MP, GFR, ADIFF, ANEU, CBC ####[place] [address] Urea nitrogen [Mass/Vol] 29.0 mg/dL High 8.0-22.0 [facility] ([place]) Comment on above: Performed By: #### B MP, GFR, ADIFF, ANEU, CBC ####[place] [address] CBCon 10-08-2021 Erythrocyte distribution width (RBC) [Ratio] 13.7 % Normal 11.5-15.5 [facility] ([place]) Comment on above: Performed By: #### B MP, GFR, ADIFF, ANEU, CBC ####[place] [address] Hematocrit (Bld) [Volume fraction] 46.7 % Normal 40.0-52.0 [facility] ([place]) Comment on above: Performed By: #### B MP, GFR, ADIFF, ANEU, CBC ####[place] [address] Hgb 16.2 G/dL Normal 13.0-17.5 [facility] ([place]) Comment on above: Performed By: #### B MP, GFR, ADIFF, ANEU, CBC ####[place] [address] MCH (RBC) [Entitic mass] 31.3 pg Normal 27.0-33.0 [facility] ([place]) Comment on above: Performed By: #### B MP, GFR, ADIFF, ANEU, CBC ####[place] [address] MCHC 34.6 G/dL Normal 32.0-36.0 [facility] ([place]) Comment on above: Performed By: #### B MP, GFR, ADIFF, ANEU, CBC ####[place] [address] MCV (RBC) [Entitic vol] 90.4 fL Normal 81.0-100.0 [facility] ([place]) Comment on above: Performed By: #### B MP, GFR, ADIFF, ANEU, CBC ####[place] [address] Platelet 194 10 3/mcL Normal 150-450 [facility] ([place]) Comment on above: Performed By: #### B MP, GFR, ADIFF, ANEU, CBC ####[place] [address] Platelet mean volume (Bld) [Entitic vol] 7.8 fL Normal 6.4-10.5 [facility] ([place]) Comment on above: Performed By: #### B MP, GFR, ADIFF, ANEU, CBC ####[place] [address] RBC 5.17 10 6/mcL Normal 4.50-6.00 [facility] ([place]) Comment on above: Performed By: #### B MP, GFR, ADIFF, ANEU, CBC ####[place] [address] WBC 8.80 10 3/mcL Normal 4.50-10.80 [facility] ([place]) Comment on above: Performed By: #### B MP, GFR, ADIFF, ANEU, CBC ####[place] [address] HFPon 10-08-2021 Bili Indirect 0.3 mg/dL Normal 0.1-10.0 [facility] ([place]) Comment on above: Result Comment: Calc ulated by Rule Performed By: #### H FP ####[place] [address] Albumin Level 1.8 G/dL Low 3.2-4.8 [facility] ([place]) Comment on above: Performed By: #### H FP ####[place] [address] Albumin/Globulin [Mass ratio] 0.4 {ratio} Low 0.9-1.6 [facility] ([place]) Comment on above: Performed By: #### H FP ####[place] [address] ALP [Catalytic activity/Vol] 118 U/L Normal 38-126 [facility] ([place]) Comment on above: Performed By: #### H FP ####[place] [address] ALT [Catalytic activity/Vol] 33 U/L Normal 12-55 [facility] ([place]) Comment on above: Performed By: #### H FP ####[place] [address] AST [Catalytic activity/Vol] 34 U/L Normal 8-34 [facility] ([place]) Comment on above: Performed By: #### H FP ####[place] [address] Bili Direct 0.3 mg/dL Normal 0.0-0.4 [facility] ([place]) Comment on above: Result Comment: Use of this assay is not recommended for patients undergoing treatment with eltrombopag due to the potential for falsely elevated results. Performed By: #### H FP ####[place] [address] Bili Total 0.60 mg/dL Normal 0.20-1.20 [facility] ([place]) Comment on above: Result Comment: Use of this assay is not recommended for patients undergoing treatment with eltrombopag due to the potential for falsely elevated results. Performed By: #### H FP ####[address] [address] Globulin 4.0 G/dL High 1.5-3.8 [facility] ([place]) Comment on above: Performed By: #### H FP ####[address] [address] Total Protein 5.8 G/dL Normal 5.7-8.2 [facility] ([place]) Comment on above: Result Comment: No te - New Reference Range in effect 20 Performed By: #### H FP ####[address] [address] LABORATORYOrdered By: Christina Mojica on 10-08-2021 Bili Indirect 0.3 mg/dL Invalid Interpretation Code 0.1 - 10.0 mg/dL Chemistry S Bilirubin.conjugated [Mass/Vol] 0.3 mg/dL Invalid Interpretation Code 0.0 - 0.4 mg/dL ADM SS PROon 10-08-2021 INR Coag (PPP) [Relative time] 5.8 {INR} Critically abnormal [facility] ([place]) Comment on above: Result Comment: [employer] [place] [employer] (CHEST, 1992, 102:312S-25S)recommended therapeutic range for oral anticoagulant therapy is:LOW RISK: Prophylaxis of venous thrombosis INR: 2.0-3.0 Treatment of pulmonary embolism 2.0-3.0 Prevention of systemic embolism 2.0-3.0HIGH RISK: Mechanical prosthetic valves 2.5-3.5 Performed By: #### P RO, APTT ####[address] [address] PT Coag (PPP) [Time] 72.0 s High 9.0-14.9 [facility] ([place]) Comment on above: Result Comment: Effe ctive 03/03/08, Protime results may be affected by some antibiotics (i.e. Ciprofloxacin, Azithromycin, Bactrim) which may potentiate the action of oral anticoagulants, with further increases in Protime/INR. Performed By: #### P RO, APTT ####[place] [id number] INR Coag (PPP) [Relative time] 6.0 {INR} Critically abnormal [facility] ([place]) Comment on above: Result Comment: [employer] [place] [employer] (CHEST, 1992, 102:312S-25S)recommended therapeutic range for oral anticoagulant therapy is:LOW RISK: Prophylaxis of venous thrombosis INR: 2.0-3.0 Treatment of pulmonary embolism 2.0-3.0 Prevention of systemic embolism 2.0-3.0HIGH RISK: Mechanical prosthetic valves 2.5-3.5 Performed By: #### A PTT, PRO ####[address] [address] PT Coag (PPP) [Time] 74.7 s High 9.0-14.9 [facility] ([place]) Comment on above: Result Comment: Effe ctive 03/03/08, Protime results may be affected by some antibiotics (i.e. Ciprofloxacin, Azithromycin, Bactrim) which may potentiate the action of oral anticoagulants, with further increases in Protime/INR. Performed By: #### A PTT, PRO ####[address] [address] .Auto Diffon 10-07-2021 Basophil, Absolute 0.00 10 3/mcL Normal 0.00-0.27 [facility] ([place]) Comment on above: Performed By: #### B MP, ADIFF, ANEU, A1C, LIPID, GFR, CBC ####[address] [address] Basophils/100 WBC (Bld) 0.2 % Normal 0.0-2.5 [facility] ([place]) Comment on above: Performed By: #### B MP, ADIFF, ANEU, A1C, LIPID, GFR, CBC ####[address] [address] Eosinophil, Absolute 0.20 10 3/mcL Normal 0.00-0.65 [facility] ([place]) Comment on above: Performed By: #### B MP, ADIFF, ANEU, A1C, LIPID, GFR, CBC ####[address] [address] Eosinophils/100 WBC (Bld) 1.6 % Normal 0.0-6.0 [facility] ([place]) Comment on above: Performed By: #### B MP, ADIFF, ANEU, A1C, LIPID, GFR, CBC ####[address] [address] Lymphocyte, Absolute 0.60 10 3/mcL Low 0.90-4.32 [facility] ([place]) Comment on above: Performed By: #### B MP, ADIFF, ANEU, A1C, LIPID, GFR, CBC ####[address] [address] Lymphocytes/100 WBC (Bld) 5.8 % Low 20.0-40.0 [facility] ([place]) Comment on above: Performed By: #### B MP, ADIFF, ANEU, A1C, LIPID, GFR, CBC ####[address] [address] Monocyte, Absolute 1.30 10 3/mcL Normal 0.09-1.40 [facility] ([place]) Comment on above: Performed By: #### B MP, ADIFF, ANEU, A1C, LIPID, GFR, CBC ####[address] [address] Monocytes/100 WBC (Bld) 13.5 % High 2.0-13.0 [facility] ([place]) Comment on above: Performed By: #### B MP, ADIFF, ANEU, A1C, LIPID, GFR, CBC ####[address] [address] Neutrophils/100 WBC (Bld) 78.9 % High 50.0-75.0 [facility] ([place]) Comment on above: Performed By: #### B MP, ADIFF, ANEU, A1C, LIPID, GFR, CBC ####[address] [address] .GFRon 10-07-2021 GFR Non- >60 Normal [facility] ([place]) Comment on above: Result Comment: GFR Population mean for , Non- Americans Ages 20-29 = 116 mL/min/1.73 sq.m. Ages 30-39 = 107 mL/min/1.73 sq.m. Ages 40-49 = 99 mL/min/1.73 sq.m. Ages 50-59 = 93 mL/min/1.73 sq.m. Ages 60-69 = 85 mL/min/1.73 sq.m. Ages 70+ = 75 mL/min/1.73 sq.m.Chronic Kidney Disease: Less than 60 mL/min/1.73 square metersEnd Stage Renal Disease: Less than 15 mL/min/1.73 square meters Performed By: #### B MP, ADIFF, ANEU, A1C, LIPID, GFR, CBC ####[place] [address] GFR >60 Normal [facility] ([place]) Comment on above: Result Comment: GFR Population mean for , Non- Americans Ages 20-29 = 116 mL/min/1.73 sq.m. Ages 30-39 = 107 mL/min/1.73 sq.m. Ages 40-49 = 99 mL/min/1.73 sq.m. Ages 50-59 = 93 mL/min/1.73 sq.m. Ages 60-69 = 85 mL/min/1.73 sq.m. Ages 70+ = 75 mL/min/1.73 sq.m.Chronic Kidney Disease: Less than 60 mL/min/1.73 square metersEnd Stage Renal Disease: Less than 15 mL/min/1.73 square meters Performed By: #### B MP, ADIFF, ANEU, A1C, LIPID, GFR, CBC ####[place] [address] .NEUABSon 10-07-2021 Neutrophil, Absolute 7.80 10 3/mcL Normal 2.25-8.10 A [facility], [facility] ([place]) Comment on above: Performed By: #### B MP, ADIFF, ANEU, A1C, LIPID, GFR, CBC ####[place] [address] A1Con 10-07-2021 HbA1c (Bld) [Mass fraction] 6.7 % High 4.0-6.0 [facility] ([place]) Comment on above: Performed By: #### B MP, ADIFF, ANEU, A1C, LIPID, GFR, CBC ####[place] [id number] BMPon 10-07-2021 BUN/Creatinine Ratio 36.2 ratio High 10.0-22.0 [facility] ([place]) Comment on above: Performed By: #### B MP, ADIFF, ANEU, A1C, LIPID, GFR, CBC ####[address] [address] Calcium [Mass/Vol] 9.7 mg/dL Normal 8.4-10.1 [facility] ([place]) Comment on above: Result Comment: No te - New Reference Range in effect 20 Performed By: #### B MP, ADIFF, ANEU, A1C, LIPID, GFR, CBC ####[place] [address] Chloride [Moles/Vol] 102 mmol/L Normal 98-110 [facility] ([place]) Comment on above: Performed By: #### B MP, ADIFF, ANEU, A1C, LIPID, GFR, CBC ####[place] [address] CO2 [Moles/Vol] 23 mmol/L Normal 22-32 [facility] ([place]) Comment on above: Performed By: #### B MP, ADIFF, ANEU, A1C, LIPID, GFR, CBC ####[place] [address] Creatinine [Mass/Vol] 0.94 mg/dL Normal 0.60-1.40 [facility] ([place]) Comment on above: Performed By: #### B MP, ADIFF, ANEU, A1C, LIPID, GFR, CBC ####[place] [address] Electrolyte Balance 9.0 mEq/L Normal 4.0-15.0 [facility] ([place]) Comment on above: Performed By: #### B MP, ADIFF, ANEU, A1C, LIPID, GFR, CBC ####[place] [address] Glucose [Mass/Vol] 99 mg/dL Normal 82-115 [facility] ([place]) Comment on above: Performed By: #### B MP, ADIFF, ANEU, A1C, LIPID, GFR, CBC ####[place] [address] Potassium [Moles/Vol] 4.5 mmol/L Normal 3.5-5.0 [facility] ([place]) Comment on above: Performed By: #### B MP, ADIFF, ANEU, A1C, LIPID, GFR, CBC ####[place] [address] Sodium [Moles/Vol] 134 mmol/L Low 136-145 [facility] ([place]) Comment on above: Performed By: #### B MP, ADIFF, ANEU, A1C, LIPID, GFR, CBC ####[place] [address] Urea nitrogen [Mass/Vol] 34.0 mg/dL High 8.0-22.0 [facility] ([place]) Comment on above: Performed By: #### B MP, ADIFF, ANEU, A1C, LIPID, GFR, CBC ####[place] [address] CBCon 10-07-2021 Erythrocyte distribution width (RBC) [Ratio] 13.4 % Normal 11.5-15.5 [facility] ([place]) Comment on above: Performed By: #### B MP, ADIFF, ANEU, A1C, LIPID, GFR, CBC ####[place] [address] Hematocrit (Bld) [Volume fraction] 49.6 % Normal 40.0-52.0 [facility] ([place]) Comment on above: Performed By: #### B MP, ADIFF, ANEU, A1C, LIPID, GFR, CBC ####[place] [address] Hgb 16.7 G/dL Normal 13.0-17.5 [facility] ([place]) Comment on above: Performed By: #### B MP, ADIFF, ANEU, A1C, LIPID, GFR, CBC ####[place] [address] MCH (RBC) [Entitic mass] 30.9 pg Normal 27.0-33.0 [facility] ([place]) Comment on above: Performed By: #### B MP, ADIFF, ANEU, A1C, LIPID, GFR, CBC ####[place] [address] MCHC 33.8 G/dL Normal 32.0-36.0 [facility] ([place]) Comment on above: Performed By: #### B MP, ADIFF, ANEU, A1C, LIPID, GFR, CBC ####[place] [address] MCV (RBC) [Entitic vol] 91.4 fL Normal 81.0-100.0 [facility] ([place]) Comment on above: Performed By: #### B MP, ADIFF, ANEU, A1C, LIPID, GFR, CBC ####[place] [address] Platelet 182 10 3/mcL Normal 150-450 [facility] ([place]) Comment on above: Performed By: #### B MP, ADIFF, ANEU, A1C, LIPID, GFR, CBC ####[place] [address] Platelet mean volume (Bld) [Entitic vol] 7.9 fL Normal 6.4-10.5 [facility] ([place]) Comment on above: Performed By: #### B MP, ADIFF, ANEU, A1C, LIPID, GFR, CBC ####[place] [address] RBC 5.42 10 6/mcL Normal 4.50-6.00 [facility] ([place]) Comment on above: Performed By: #### B MP, ADIFF, ANEU, A1C, LIPID, GFR, CBC ####[place] [address] WBC 9.90 10 3/mcL Normal 4.50-10.80 [facility] ([place]) Comment on above: Performed By: #### B MP, ADIFF, ANEU, A1C, LIPID, GFR, CBC ####[place] [address] LABORATORYOrdered By: Ricardo Nielsen on 10-07-2021 Blood Glucose Testing Reason Routine (10/07/21 9:04 PM) [facility] Glucose [Mass/Vol] 149 mg/dL Invalid Interpretation Code 82 - 115 mg/dL [facility] Blood Glucose Testing Reason Routine (10/07/21 4:48 PM) [facility] Glucose [Mass/Vol] 172 mg/dL Invalid Interpretation Code 82 - 115 mg/dL [facility] LABORATORYOrdered By: [employer] on 10-07-2021 Troponin I.cardiac DL <= 0.01 ng/mL [Mass/Vol] 153.68 ng/L Invalid Interpretation Code 0.00 - 54.00 ng/L AH ADM SS HbA1c (Bld) [Mass fraction] 6.7 % Invalid Interpretation Code 4.0 - 6.0 % AH Auto Chem SS LABORATORYOrdered By: Renea Lovell on 10-07-2021 Cholesterol [Mass/Vol] 139 mg/dL Invalid Interpretation Code 50 - 199 mg/dL AH ADM SS Cholesterol in HDL [Mass/Vol] 31 mg/dL Invalid Interpretation Code 40 - 59 mg/dL AH ADM SS Cholesterol in LDL [Mass/Vol] 83 mg/dL Invalid Interpretation Code 0 - 129 mg/dL AH ADM SS Triglyceride [Mass/Vol] 123 mg/dL Invalid Interpretation Code 3 - 149 mg/dL AH ADM SS LABORATORYOrdered By: Carlene Chavez on 10-07-2021 Acinetobacter baumannii Not Detected *NA* (10/07/21 12:24 AM) Invalid Interpretation Code Not Detected AH Auto Microbiology GL SS BCID Comment See Comment (10/07/21 12:24 AM) Invalid Interpretation Code AH Auto Microbiology GL SS Adeline albicans Not Detected *NA* (10/07/21 12:24 AM) Invalid Interpretation Code Not Detected AH Auto Microbiology GL SS Adeline glabrata Not Detected *NA* (10/07/21 12:24 AM) Invalid Interpretation Code Not Detected AH Auto Microbiology GL SS Adeline krusei Not Detected *NA* (10/07/21 12:24 AM) Invalid Interpretation Code Not Detected AH Auto Microbiology GL SS Adeline parapsilosis Not Detected *NA* (10/07/21 12:24 AM) Invalid Interpretation Code Not Detected AH Auto Microbiology GL SS Adeline tropicalis Not Detected *NA* (10/07/21 12:24 AM) Invalid Interpretation Code Not Detected AH Auto Microbiology GL SS E. Coli Not Detected *NA* (10/07/21 12:24 AM) Invalid Interpretation Code Not Detected AH Auto Microbiology GL SS Enterobacter cloacae Complex Not Detected *NA* (10/07/21 12:24 AM) Invalid Interpretation Code Not Detected AH Auto Microbiology GL SS Enterobacteriaceae Not Detected *NA* (10/07/21 12:24 AM) Invalid Interpretation Code Not Detected AH Auto Microbiology GL SS Enterococcus Not Detected *NA* (10/07/21 12:24 AM) Invalid Interpretation Code Not Detected AH Auto Microbiology GL SS Haemophilus influenzae Not Detected *NA* (10/07/21 12:24 AM) Invalid Interpretation Code Not Detected AH Auto Microbiology GL SS Klebsiella oxytoca Not Detected *NA* (10/07/21 12:24 AM) Invalid Interpretation Code Not Detected AH Auto Microbiology GL SS Klebsiella pneumoniae Not Detected *NA* (10/07/21 12:24 AM) Invalid Interpretation Code Not Detected AH Auto Microbiology GL SS Listeria monocytogenes Not Detected *NA* (10/07/21 12:24 AM) Invalid Interpretation Code Not Detected AH Auto Microbiology GL SS MecA Not Detected *NA* (10/07/21 12:24 AM) Invalid Interpretation Code Not Detected AH Auto Microbiology GL SS Neisseria meningitidis Not Detected *NA* (10/07/21 12:24 AM) Invalid Interpretation Code Not Detected AH Auto Microbiology GL SS Proteus Not Detected *NA* (10/07/21 12:24 AM) Invalid Interpretation Code Not Detected AH Auto Microbiology GL SS Pseudomonas aeruginosa Not Detected *NA* (10/07/21 12:24 AM) Invalid Interpretation Code Not Detected AH Auto Microbiology GL SS S. agalactiae Org specific cx Ql (Vag fld) Not Detected *NA* (10/07/21 12:24 AM) Invalid Interpretation Code Not Detected AH Auto Microbiology GL SS Serratia marcescens Not Detected *NA* (10/07/21 12:24 AM) Invalid Interpretation Code Not Detected AH Auto Microbiology GL SS Staphylococcus Detected *ABN* (10/07/21 12:24 AM) Invalid Interpretation Code Not Detected AH Auto Microbiology GL SS Staphylococcus aureus Not Detected *NA* (10/07/21 12:24 AM) Invalid Interpretation Code Not Detected AH Auto Microbiology GL SS Streptococcus Not Detected *NA* (10/07/21 12:24 AM) Invalid Interpretation Code Not Detected AH Auto Microbiology GL SS Streptococcus pneumoniae Not Detected *NA* (10/07/21 12:24 AM) Invalid Interpretation Code Not Detected AH Auto Microbiology GL SS Streptococcus pyogenes Not Detected *NA* (10/07/21 12:24 AM) Invalid Interpretation Code Not Detected AH Auto Microbiology GL SS LIPIDon 10-07-2021 Cholesterol [Mass/Vol] 139 mg/dL Normal 50-199 [facility] ([place]) Comment on above: Result Comment: Chol esterol Reference Interval:Less than 200 [id number] Borderline high [id number] and above High risk Performed By: #### B MP, ADIFF, ANEU, A1C, LIPID, GFR, CBC ####[address] [address] Cholesterol in HDL [Mass/Vol] 31 mg/dL Low 40-59 [facility] ([place]) Comment on above: Performed By: #### B MP, ADIFF, ANEU, A1C, LIPID, GFR, CBC ####[address] [address] Cholesterol in LDL [Mass/Vol] 83 mg/dL Normal 0-129 [facility] ([place]) Comment on above: Performed By: #### B MP, ADIFF, ANEU, A1C, LIPID, GFR, CBC ####[address] [address] Triglyceride [Mass/Vol] 123 mg/dL Normal 3-149 [facility] ([place]) Comment on above: Performed By: #### B MP, ADIFF, ANEU, A1C, LIPID, GFR, CBC ####[address] [address] No Panel Informationon 10-07 GSAER Gram Positive Cocci in clusters [facility] GSANA Gram Positive Cocci in clusters [facility] Microscopic examination of blood, culture Staphylococcus epidermidis Isolated from aerobe and anaerobe bottles. [facility] Microscopic examination of blood, culture Staphylococcus epidermidis Isolated from aerobe and anaerobe bottles. Refer to previous culture for susceptibility. [id number] [facility] Staphylococcus epidermidis Staphylococcus epidermidis [facility] PROon 10-07-2021 INR Coag (PPP) [Relative time] 3.7 {INR} Normal [facility] ([place]) Comment on above: Result Comment: [employer] (CHEST, 1992, 102:[id number])recommended therapeutic range for oral anticoagulant therapy is:LOW RISK: Prophylaxis of venous thrombosis INR: 2.0-3.0 Treatment of pulmonary embolism 2.0-3.0 Prevention of systemic embolism 2.0-3.0HIGH RISK: Mechanical prosthetic valves 2.5-3.5 Performed By: #### P RO ####[address] [address] PT Coag (PPP) [Time] 45.1 s High 9.0-14.9 [facility] ([place]) Comment on above: Result Comment: Effe ctive 03/03/08, Protime results may be affected by some antibiotics (i.e. Ciprofloxacin, Azithromycin, Bactrim) which may potentiate the action of oral anticoagulants, with further increases in Protime/INR. Performed By: #### P RO ####[place] [address] TROPHSon 10-07-2021 Troponin I High Sensitivity 153.68 ng/L High 0.00-54.00 [facility] ([place]) Comment on above: Performed By: #### T ROPHS ####[address] [address] .Auto Diffon 10-06-2021 Basophil, Absolute 0.00 10 3/mcL Normal 0.00-0.27 [facility] ([place]) Comment on above: Performed By: #### B MP, GFR, TROPHS, ANEU, CBC, ADIFF, TSH ####[address] [address] Basophils/100 WBC (Bld) 0.2 % Normal 0.0-2.5 [facility] ([place]) Comment on above: Performed By: #### B MP, GFR, TROPHS, ANEU, CBC, ADIFF, TSH ####[address] [address] Eosinophil, Absolute 0.10 10 3/mcL Normal 0.00-0.65 A [facility] ([place]) Comment on above: Performed By: #### B MP, GFR, TROPHS, ANEU, CBC, ADIFF, TSH ####[address] [address] Eosinophils/100 WBC (Bld) 1.3 % Normal 0.0-6.0 [facility] ([place]) Comment on above: Performed By: #### B MP, GFR, TROPHS, ANEU, CBC, ADIFF, TSH ####[address] [address] Lymphocyte, Absolute 0.60 10 3/mcL Low 0.90-4.32 A [facility], [facility] ([place]) Comment on above: Performed By: #### B MP, GFR, TROPHS, ANEU, CBC, ADIFF, TSH ####[address] [address] Lymphocytes/100 WBC (Bld) 6.0 % Low 20.0-40.0 [facility] ([place]) Comment on above: Performed By: #### B MP, GFR, TROPHS, ANEU, CBC, ADIFF, TSH ####[address] [address] Monocyte, Absolute 1.40 10 3/mcL Normal 0.09-1.40 [facility] ([place]) Comment on above: Performed By: #### B MP, GFR, TROPHS, ANEU, CBC, ADIFF, TSH ####[address] [address] Monocytes/100 WBC (Bld) 13.1 % High 2.0-13.0 [facility] ([place]) Comment on above: Performed By: #### B MP, GFR, TROPHS, ANEU, CBC, ADIFF, TSH ####[address] [address] Neutrophils/100 WBC (Bld) 79.4 % High 50.0-75.0 [facility] ([place]) Comment on above: Performed By: #### B MP, GFR, TROPHS, ANEU, CBC, ADIFF, TSH ####[address] [address] .GFRon 10-06-2021 GFR Non- >60 Normal [facility] ([place]) Comment on above: Result Comment: GFR Population mean for , Non- Americans Ages 20-29 = 116 mL/min/1.73 sq.m. Ages 30-39 = 107 mL/min/1.73 sq.m. Ages 40-49 = 99 mL/min/1.73 sq.m. Ages 50-59 = 93 mL/min/1.73 sq.m. Ages 60-69 = 85 mL/min/1.73 sq.m. Ages 70+ = 75 mL/min/1.73 sq.m.Chronic Kidney Disease: Less than 60 mL/min/1.73 square metersEnd Stage Renal Disease: Less than 15 mL/min/1.73 square meters Performed By: #### B MP, GFR, TROPHS, ANEU, CBC, ADIFF, TSH ####[place] [address] GFR >60 Normal [facility] ([place]) Comment on above: Result Comment: GFR Population mean for , Non- Americans Ages 20-29 = 116 mL/min/1.73 sq.m. Ages 30-39 = 107 mL/min/1.73 sq.m. Ages 40-49 = 99 mL/min/1.73 sq.m. Ages 50-59 = 93 mL/min/1.73 sq.m. Ages 60-69 = 85 mL/min/1.73 sq.m. Ages 70+ = 75 mL/min/1.73 sq.m.Chronic Kidney Disease: Less than 60 mL/min/1.73 square metersEnd Stage Renal Disease: Less than 15 mL/min/1.73 square meters Performed By: #### B MP, GFR, TROPHS, ANEU, CBC, ADIFF, TSH ####[address] [address] .NEUABSon 10-06-2021 Neutrophil, Absolute 8.60 10 3/mcL High 2.25-8.10 A [facility] ([place]) Comment on above: Performed By: #### B MP, GFR, TROPHS, ANEU, CBC, ADIFF, TSH ####[address] [address] APTTon 10-06-2021 aPTT Coag (Bld) [Time] 64.2 s High 25.0-35.0 [facility] ([place]) Comment on above: Result Comment: For Heparin anticoagulation therapy, the recommendedtherapeutic range is: 54-77 seconds (APTT Correlationwith Anti-Xa therapeutic range of 0.3-0.7 units/ml).PLEASE REFERENCE THE PHARMACY PROTOCOL FOR DOSING. Performed By: #### A PTT, PRO ####[address] [address] Heparin dose (APTT) Heparin IV Normal [facility] ([place]) Comment on above: Performed By: #### A PTT, PRO ####[address] [address] Absolute lymphocyte counton 10-06-2021 Lymphocytes Auto (Unsp spec) [#/Vol] 0.91 10*3/uL 0.83-4.51 [facility] Work Phone: Activated partial thrombopla stin time (aPTT) in platelet poor plasma by coagulation aon 10-06-2021 aPTT Coag (PPP) [Time] 59.7 s 24.1-36.2 [facility] Work Phone: BMPon 10-06-2021 BUN/Creatinine Ratio 29.0 ratio High 10.0-22.0 [facility] ([place]) Comment on above: Performed By: #### B MP, GFR, TROPHS, ANEU, CBC, ADIFF, TSH ####[address] [address] Calcium [Mass/Vol] 9.7 mg/dL Normal 8.4-10.1 [facility] ([place]) Comment on above: Result Comment: No te - New Reference Range in effect 20 Performed By: #### B MP, GFR, TROPHS, ANEU, CBC, ADIFF, TSH ####[address] [address] Chloride [Moles/Vol] 102 mmol/L Normal 98-110 [facility] ([place]) Comment on above: Performed By: #### B MP, GFR, TROPHS, ANEU, CBC, ADIFF, TSH ####[address] [address] CO2 [Moles/Vol] 23 mmol/L Normal 22-32 [facility] ([place]) Comment on above: Performed By: #### B MP, GFR, TROPHS, ANEU, CBC, ADIFF, TSH ####[address] [address] Creatinine [Mass/Vol] 1.07 mg/dL Normal 0.60-1.40 [facility] ([place]) Comment on above: Performed By: #### B MP, GFR, TROPHS, ANEU, CBC, ADIFF, TSH ####[place] [address] Electrolyte Balance 7.0 mEq/L Normal 4.0-15.0 [facility] ([place]) Comment on above: Performed By: #### B MP, GFR, TROPHS, ANEU, CBC, ADIFF, TSH ####[place] [address] Glucose [Mass/Vol] 108 mg/dL Normal 82-115 [facility] ([place]) Comment on above: Performed By: #### B MP, GFR, TROPHS, ANEU, CBC, ADIFF, TSH ####[place] [address] Potassium [Moles/Vol] 4.7 mmol/L Normal 3.5-5.0 [facility] ([place]) Comment on above: Performed By: #### B MP, GFR, TROPHS, ANEU, CBC, ADIFF, TSH ####[place] [address] Sodium [Moles/Vol] 132 mmol/L Low 136-145 [facility] ([place]) Comment on above: Performed By: #### B MP, GFR, TROPHS, ANEU, CBC, ADIFF, TSH ####[address] [address] Urea nitrogen [Mass/Vol] 31.0 mg/dL High 8.0-22.0 [facility] ([place]) Comment on above: Performed By: #### B MP, GFR, TROPHS, ANEU, CBC, ADIFF, TSH ####[facility] [place] [address] Basophil percentageon 2021 Basophils/100 WBC (Bld) 0.2 % 0-1 [facility] Work Phone: Chloride [Moles/Vol] 98 mmol/L 98-107 [facility] Work Phone: Eosinophils/100 WBC (Bld) 1.7 % 0-5 [facility] Work Phone: Glucose [Mass/Vol] 116 mg/dL 74-106 [facility] Work Phone: Comment on above: Fasting Glucose resu lt from 100 to 125 mg/dL suggests IMPAIRED HOMEOSTASIS per A.D.A. criteria. Neutrophils (Bld) [#/Vol] 9.6 10*3/uL 2.0-7.7 [facility] Work Phone: Neutrophils/100 WBC (Bld) 78.6 % 47-70 [facility] Work Phone: Potassium [Moles/Vol] 4.9 mmol/L 3.5-5.1 [facility] Work Phone: Sodium [Moles/Vol] 132 mmol/L 136-145 [facility] Work Phone: WBC (Bld) [#/Vol] 12.2 10*3/uL 4.4-11.0 [facility] Work Phone: Blood erythrocytes count (nu mber/volume)on 10-06-2021 RBC (Bld) [#/Vol] 5.40 10*6/uL 4.6-6.2 [facility] Work Phone: Blood hemoglobin measurement (mass/volume)on 10-06-2021 Hemoglobin (Bld) [Mass/Vol] 16.5 g/dL 13.0-16.5 [facility] Work Phone: Blood lymphocytes/100 leukoc yteson 10-06-2021 Lymphocytes/100 WBC (Bld) 7.5 % 19-41 [facility] Work Phone: Blood monocytes/100 leukocyt eson 10-06-2021 Monocytes/100 WBC (Bld) 11.3 % 0-10 [facility] Work Phone: Blood platelet mean volumeon 10-06-2021 Platelet mean volume (Bld) [Entitic vol] 9.9 fL 6.2-12.0 [facility] Work Phone: CBCon 10-06-2021 Erythrocyte distribution width (RBC) [Ratio] 13.5 % Normal 11.5-15.5 [facility] ([place]) Comment on above: Performed By: #### B MP, GFR, TROPHS, ANEU, CBC, ADIFF, TSH ####[address] [address] Hematocrit (Bld) [Volume fraction] 47.6 % Normal 40.0-52.0 [facility] ([place]) Comment on above: Performed By: #### B MP, GFR, TROPHS, ANEU, CBC, ADIFF, TSH ####[address] [address] Hgb 16.3 G/dL Normal 13.0-17.5 [facility] ([place]) Comment on above: Performed By: #### B MP, GFR, TROPHS, ANEU, CBC, ADIFF, TSH ####[address] [address] MCH (RBC) [Entitic mass] 31.1 pg Normal 27.0-33.0 [facility] ([place]) Comment on above: Performed By: #### B MP, GFR, TROPHS, ANEU, CBC, ADIFF, TSH ####[address] [address] MCHC 34.3 G/dL Normal 32.0-36.0 [facility] ([place]) Comment on above: Performed By: #### B MP, GFR, TROPHS, ANEU, CBC, ADIFF, TSH ####[address] [address] MCV (RBC) [Entitic vol] 90.6 fL Normal 81.0-100.0 [facility] ([place]) Comment on above: Performed By: #### B MP, GFR, TROPHS, ANEU, CBC, ADIFF, TSH ####[place] [address] Platelet 189 10 3/mcL Normal 150-450 [facility] ([place]) Comment on above: Performed By: #### B MP, GFR, TROPHS, ANEU, CBC, ADIFF, TSH ####[place] [address] Platelet mean volume (Bld) [Entitic vol] 8.2 fL Normal 6.4-10.5 [facility] ([place]) Comment on above: Performed By: #### B MP, GFR, TROPHS, ANEU, CBC, ADIFF, TSH ####[place] [address] RBC 5.26 10 6/mcL Normal 4.50-6.00 [facility] ([place]) Comment on above: Performed By: #### B MP, GFR, TROPHS, ANEU, CBC, ADIFF, TSH ####[place] [address] WBC 10.80 10 3/mcL Normal 4.50-10.80 [facility] ([place]) Comment on above: Performed By: #### B MP, GFR, TROPHS, ANEU, CBC, ADIFF, TSH ####[address] [address] Determination of erythrocyte mean corpuscular volume (MCV)on 10-06-2021 MCV (RBC) [Entitic vol] 91.7 fL 80-94 [facility] Work Phone: Hematocrit Auto (Bld) [Volum e fraction]on 10-06-2021 Hematocrit (Bld) [Volume fraction] 49.5 % 40-54 [facility] Work Phone: INR in Blood by Coagulation assayon 10-06-2021 INR Coag (Bld) [Relative time] 2.0 {INR} [facility] Work Phone: LABORATORYOrdered By: SYSTEM SYSTEM on 10-06-2021 Troponin I.cardiac DL <= 0.01 ng/mL [Mass/Vol] 77.02 ng/L Invalid Interpretation Code 0.00 - 54.00 ng/L ADM SS TSH Qn 1.224 mIU/mL Invalid Interpretation Code 0.550 - 4.780 mIU/mL ADM SS Laboratory - Chemistry and C hemistry - challengeon 10-06-2021 CO2 [Moles/Vol] 29.0 mmol/L 21.0-32.0 [facility] Work Phone: Magnesium [Mass/Vol] 2.5 mg/dL 1.6-2.6 [facility] Work Phone: Urea nitrogen/Creatinine [Mass ratio] 20.7 mg/mg 10-20 [facility] Work Phone: Laboratory - Coagulationon 0 10-06-2021 PT Coag (PPP) [Time] 22.1 s 11.7-14.9 [facility] Work Phone: Laboratory - Hematology and Cell countson 10-06-2021 Erythrocyte distribution width (RBC) [Entitic vol] 41.7 fL 35.1-43.9 [facility] Work Phone: Erythrocyte distribution width (RBC) [Ratio] 12.8 % 11.6-14.6 [facility] Work Phone: Immature granulocytes/100 WBC (Bld) 0.700 % 0.0-0.9 [facility] Work Phone: Comment on above: IG% - Immature Granu locytes (promyelocytes, myelocytes and metamyelocytes) > 1% indicates that a LEFT SHIFT is Present. MCH (RBC) [Entitic mass] 30.6 pg 27.0-32.0 [facility] Work Phone: Nucleated RBC/100 WBC (Bld) [Ratio] 0 % 0-5 [facility] Work Phone: MCHC Auto (RBC) [Mass/Vol]on 10-06-2021 MCHC (RBC) [Mass/Vol] 33.3 g/dL 32-36 [facility] Work Phone: No Panel Informationon 10-06 Estimated Creatinine Clearance Calc 46.48 ml/min [facility] Work Phone: Estimated GFR (MDRD) Amer 65 mL/min >60 [facility] Work Phone: Comment on above: GFR Calc Estimated GFR (MDRD) Non-Af Amer 54 mL/min >60 [facility] Work Phone: Comment on above: Non- GFR Calc Thyroid Stimulating Hormone (TSH) 1.42 uIU/mL 0.358-3.74 [facility] Work Phone: Troponin I High Sensitivity 97 pg/mL 3.0-78.0 [facility] Work Phone: Comment on above: Please Note: New [place] t Units and Gender Specific Reference Ranges. For more information see Policy Stat Procedure [place] High Sensitivity Troponin (TNIH) and attachments. SARS-CoV-2 Antigen (Rapid) [facility] Work Phone: PROon 10-06-2021 INR Coag (PPP) [Relative time] 3.0 {INR} Normal [facility] ([place]) Comment on above: Result Comment: [employer] (CHEST, 1992, [id number])recommended therapeutic range for oral anticoagulant therapy is:LOW RISK: Prophylaxis of venous thrombosis INR: 2.0-3.0 Treatment of pulmonary embolism 2.0-3.0 Prevention of systemic embolism 2.0-3.0HIGH RISK: Mechanical prosthetic valves 2.5-3.5 Performed By: #### P RO ####[address] [address] PT Coag (PPP) [Time] 35.9 s High 9.0-14.9 [facility] ([place]) Comment on above: Result Comment: Effe ctive 03/03/08, Protime results may be affected by some antibiotics (i.e. Ciprofloxacin, Azithromycin, Bactrim) which may potentiate the action of oral anticoagulants, with further increases in Protime/INR. Performed By: #### P RO ####[address] [id number] INR Coag (PPP) [Relative time] 2.8 {INR} Normal [facility] ([place]) Comment on above: Result Comment: [employer] (CHEST, 1992, [id number])recommended therapeutic range for oral anticoagulant therapy is:LOW RISK: Prophylaxis of venous thrombosis INR: 2.0-3.0 Treatment of pulmonary embolism 2.0-3.0 Prevention of systemic embolism 2.0-3.0HIGH RISK: Mechanical prosthetic valves 2.5-3.5 Performed By: #### A PTT, PRO ####[address] [id number] PT Coag (PPP) [Time] 33.5 s High 9.0-14.9 [facility] ([place]) Comment on above: Result Comment: Effe ctive 03/03/08, Protime results may be affected by some antibiotics (i.e. Ciprofloxacin, Azithromycin, Bactrim) which may potentiate the action of oral anticoagulants, with further increase in Protime/INR. Performed By: #### A PTT, PRO ####[address] [address] Platelets bldon 10-06-2021 Platelets (Bld) [#/Vol] 207 10*3/uL 150-450 [facility] Work Phone: Serum or plasma calcium shira urement (mass/volume)on 10-06-2021 Calcium [Mass/Vol] 9.2 mg/dL 8.5-10.1 [facility] Work Phone: Serum or plasma creatinine m easurement (mass/volume)on 10-06-2021 Creatinine [Mass/Vol] 1.35 mg/dL 0.70-1.30 [facility] Work Phone: Comment on above: The validity of the calculated GFR & GFRAA in patients over 70 years has not been determined. Clinical correlation is essential. Serum or plasma urea nitroge n measurement (mass/volume)on 10-06-2021 Urea nitrogen [Mass/Vol] 28 mg/dL 7-18 [facility] Work Phone: TROPHSon 10-06-2021 Troponin I High Sensitivity 77.02 ng/L High 0.00-54.00 [facility] ([place]) Comment on above: Performed By: #### B MP, GFR, TROPHS, ANEU, CBC, ADIFF, TSH ####[facility] [place] [id number] TSHon 10-06-2021 TSH 1.224 mIU/mL Normal 0.550-4.780 [facility] ([place]) Comment on above: Result Comment: No te - New Reference Range in effect 20 Performed By: #### B MP, GFR, TROPHS, ANEU, CBC, ADIFF, TSH ####[place] [id number] [place] [id number] Thin prep Papanicolaou smear with manual screeningon 10-06-2021 Thin prep Papanicolaou smear with manual screening 5 5-15 [facility] Work Phone: Basophil percentageon 2021 Chloride [Moles/Vol] 99 mmol/L 98-107 [facility] Work Phone: Glucose [Mass/Vol] 48 mg/dL 74-106 [facility] Work Phone: Comment on above: Glucose result less than 50 mg/dL suggests HYPOGLYCEMIA. Potassium [Moles/Vol] 5.3 mmol/L 3.5-5.1 [facility] Work Phone: Comment on above: Slight Hemolysis, Re sult may be falsely increased. Sodium [Moles/Vol] 132 mmol/L 136-145 [facility] Work Phone: WBC (Bld) [#/Vol] 11.5 10*3/uL 4.4-11.0 [facility] Work Phone: Blood erythrocytes count (nu mber/volume)on 02-14-2022 RBC (Bld) [#/Vol] 5.61 10*6/uL 4.6-6.2 [facility] Work Phone: Blood hemoglobin measurement (mass/volume)on 10-03-2021 Hemoglobin (Bld) [Mass/Vol] 17.2 g/dL 13.0-16.5 [facility] Work Phone: Blood platelet mean volumeon 10-03-2021 Platelet mean volume (Bld) [Entitic vol] 9.8 fL 6.2-12.0 [facility] Work Phone: Determination of erythrocyte mean corpuscular volume (MCV)on 10-03-2021 MCV (RBC) [Entitic vol] 87.9 fL 80-94 [facility] Work Phone: Hematocrit Auto (Bld) [Volum e fraction]on 10-03-2021 Hematocrit (Bld) [Volume fraction] 49.3 % 40-54 [facility] Work Phone: Laboratory - Chemistry and C hemistry - challengeon 10-03-2021 CO2 [Moles/Vol] 15.0 mmol/L 21.0-32.0 [facility] Work Phone: Urea nitrogen/Creatinine [Mass ratio] 20.5 mg/mg 10-20 [facility] Work Phone: Laboratory - Hematology and Cell countson 10-03-2021 Erythrocyte distribution width (RBC) [Entitic vol] 38.6 fL 35.1-43.9 [facility] Work Phone: Erythrocyte distribution width (RBC) [Ratio] 12.2 % 11.6-14.6 [facility] Work Phone: MCH (RBC) [Entitic mass] 30.7 pg 27.0-32.0 [facility] Work Phone: MCHC Auto (RBC) [Mass/Vol]on 10-03-2021 MCHC (RBC) [Mass/Vol] 34.9 g/dL 32-36 [facility] Work Phone: No Panel Informationon 10-03 Estimated GFR (MDRD) Amer 101 mL/min >60 [facility] Work Phone: Comment on above: GFR Calc Estimated GFR (MDRD) Non-Af Amer 83 mL/min >60 [facility] Work Phone: Comment on above: Non- GFR Calc Platelets bldon 10-03-2021 Platelets (Bld) [#/Vol] 197 10*3/uL 150-450 [facility] Work Phone: Serum or plasma calcium shira urement (mass/volume)on 10-03-2021 Calcium [Mass/Vol] 5.2 mg/dL 8.5-10.1 [facility] Work Phone: Serum or plasma creatinine m easurement (mass/volume)on 10-03-2021 Creatinine [Mass/Vol] 0.93 mg/dL 0.70-1.30 [facility] Work Phone: Comment on above: The validity of the calculated GFR & GFRAA in patients over 70 years has not been determined. Clinical correlation is essential. Serum or plasma urea nitroge n measurement (mass/volume)on 10-03-2021 Urea nitrogen [Mass/Vol] 19 mg/dL 7-18 [facility] Work Phone: Thin prep Papanicolaou smear with manual screeningon 10-03-2021 Thin prep Papanicolaou smear with manual screening 18 5-15 [facility] Work Phone: Laboratory - Coagulationon 0 09-30-2021 INR Coag (Bld) [Relative time] 2.1 {INR} [facility] Work Phone: Comment on above: Critical Value > 4.0 Whole blood prothrombin time on 09-30-2021 PT Coag (Bld) [Time] 25.0 s 11.9-14.4 [facility] Work Phone: Absolute lymphocyte counton 09-29-2021 Lymphocytes Auto (Unsp spec) [#/Vol] 0.82 10*3/uL 0.83-4.51 [facility] Work Phone: Basophil percentageon 2021 Basophils/100 WBC (Bld) 0.3 % 0-1 [facility] Work Phone: Bilirubin [Mass/Vol] 0.70 mg/dL 0.20-1.00 [facility] Work Phone: Comment on above: For patients on eltr ombopag therapy, use of Dimension [place] TBIL is not recommended. Chloride [Moles/Vol] 101 mmol/L 98-107 [facility] Work Phone: Eosinophils/100 WBC (Bld) 2.7 % 0-5 [facility] Work Phone: Glucose [Mass/Vol] 106 mg/dL 74-106 [facility] Work Phone: Comment on above: Fasting Glucose resu lt from 100 to 125 mg/dL suggests IMPAIRED HOMEOSTASIS per A.D.A. criteria. Neutrophils (Bld) [#/Vol] 8.8 10*3/uL 2.0-7.7 [facility] Work Phone: Neutrophils/100 WBC (Bld) 80.1 % 47-70 [facility] Work Phone: Potassium [Moles/Vol] 4.3 mmol/L 3.5-5.1 [facility] Work Phone: Protein [Mass/Vol] 7.2 g/dL 6.4-8.2 [facility] Work Phone: Sodium [Moles/Vol] 133 mmol/L 136-145 [facility] Work Phone: WBC (Bld) [#/Vol] 10.9 10*3/uL 4.4-11.0 [facility] Work Phone: Blood erythrocytes count (nu mber/volume)on 09-29-2021 RBC (Bld) [#/Vol] 5.64 10*6/uL 4.6-6.2 [facility] Work Phone: Blood hemoglobin measurement (mass/volume)on 09-29-2021 Hemoglobin (Bld) [Mass/Vol] 16.9 g/dL 13.0-16.5 [facility] Work Phone: Blood lymphocytes/100 leukoc yteson 09-29-2021 Lymphocytes/100 WBC (Bld) 7.5 % 19-41 [facility] Work Phone: Blood monocytes/100 leukocyt eson 09-29-2021 Monocytes/100 WBC (Bld) 7.0 % 0-10 [facility] Work Phone: Blood platelet mean volumeon 09-29-2021 Platelet mean volume (Bld) [Entitic vol] 9.8 fL 6.2-12.0 [facility] Work Phone: Determination of erythrocyte mean corpuscular volume (MCV)on 09-29-2021 MCV (RBC) [Entitic vol] 87.8 fL 80-94 [facility] Work Phone: Glucose Glucometer (BldC) [M ass/Vol]on 09-29-2021 Glucose [Mass/Vol] 149 mg/dL 70-110 [facility] Work Phone: Comment on above: MANAGEMENT OF PATIEN T CARE PER NURSING PROTOCOL Hematocrit Auto (Bld) [Volum e fraction]on 09-29-2021 Hematocrit (Bld) [Volume fraction] 49.5 % 40-54 [facility] Work Phone: INR in Blood by Coagulation assayon 09-29-2021 INR Coag (Bld) [Relative time] 2.3 {INR} [facility] Work Phone: Laboratory - Chemistry and C hemistry - challengeon 09-29-2021 ALP [Catalytic activity/Vol] 108 U/L 45-117 [facility] Work Phone: ALT [Catalytic activity/Vol] 67 U/L 16-61 [facility] Work Phone: CO2 [Moles/Vol] 24.0 mmol/L 21.0-32.0 [facility] Work Phone: Globulin (S) [Mass/Vol] 5.0 g/dL 2.2-4.2 [facility] Work Phone: Urea nitrogen/Creatinine [Mass ratio] 37.6 mg/mg 10-20 [facility] Work Phone: Laboratory - Coagulationon 0 09-29-2021 PT Coag (PPP) [Time] 24.1 s 11.7-14.9 [facility] Work Phone: Laboratory - Hematology and Cell countson 09-29-2021 Erythrocyte distribution width (RBC) [Entitic vol] 38.0 fL 35.1-43.9 [facility] Work Phone: Erythrocyte distribution width (RBC) [Ratio] 11.9 % 11.6-14.6 [facility] Work Phone: Immature granulocytes/100 WBC (Bld) 2.400 % 0.0-0.9 [facility] Work Phone: Comment on above: IG% - Immature Granu locytes (promyelocytes, myelocytes and metamyelocytes) > 1% indicates that a LEFT SHIFT is Present. MCH (RBC) [Entitic mass] 30.0 pg 27.0-32.0 [facility] Work Phone: Nucleated RBC/100 WBC (Bld) [Ratio] 0 % 0-5 [facility] Work Phone: MCHC Auto (RBC) [Mass/Vol]on 09-29-2021 MCHC (RBC) [Mass/Vol] 34.1 g/dL 32-36 [facility] Work Phone: No Panel Informationon 09-29 SARS-CoV-2 Antigen (Rapid) [facility] Work Phone: Estimated Creatinine Clearance Calc 69.72 ml/min [facility] Work Phone: Estimated GFR (MDRD) Amer 104 mL/min >60 [facility] Work Phone: Comment on above: GFR Calc Estimated GFR (MDRD) Non-Af Amer 86 mL/min >60 [facility] Work Phone: Comment on above: Non- GFR Calc Platelets bldon 09-29-2021 Platelets (Bld) [#/Vol] 253 10*3/uL 150-450 [facility] Work Phone: Serum or plasma albumin shira urement (mass/volume)on 09-29-2021 Albumin [Mass/Vol] 2.2 g/dL 3.2-5.0 [facility] Work Phone: Serum or plasma albumin/glob ulin mass ratioon 09-29-2021 Albumin/Globulin [Mass ratio] 0.4 {ratio} 0.9-2.4 [facility] Work Phone: Serum or plasma calcium shira urement (mass/volume)on 09-29-2021 Calcium [Mass/Vol] 8.7 mg/dL 8.5-10.1 [facility] Work Phone: Serum or plasma creatinine m easurement (mass/volume)on 09-29-2021 Creatinine [Mass/Vol] 0.90 mg/dL 0.70-1.30 [facility] Work Phone: Comment on above: The validity of the calculated GFR & GFRAA in patients over 70 years has not been determined. Clinical correlation is essential. Serum or plasma urea nitroge n measurement (mass/volume)on 09-29-2021 Urea nitrogen [Mass/Vol] 34 mg/dL 7-18 [facility] Work Phone: Thin prep Papanicolaou smear with manual screeningon 09-29-2021 Thin prep Papanicolaou smear with manual screening 66 U/L 15-37 [facility] Work Phone: Thin prep Papanicolaou smear with manual screening 8 5-15 [facility] Work Phone: Blood manual differential co mment interpretation (narrative result)on 09-24-2021 Manual differential comment [place] (Bld) [Interp] SCANNED [facility] Work Phone: Comment on above: LYMPHOPENIA, SLIGHT LEFT SHIFT NOTED Direct bilirubinon Bilirubin.direct [Mass/Vol] 0.37 mg/dL 0.00-0.30 [facility] Work Phone: Assessment of wrist artery p atency prior to arterial punctureon 09-20-2021 Arterial patency Wrist artery --pre arterial puncture N/A [facility] Work Phone: Base excesson 09-20-2021 Base excess Calc (BldV) [Moles/Vol] 1 mmol/L -2-2 [facility] Work Phone: Basophil percentageon 2021 Basophil percentage 24.8 mmol/L 22-26 [facility] Work Phone: Basophils/100 WBC (Bld) 99 % 95-99 [facility] Work Phone: Basophil percentage 3.1 mg/dL 2.5-4.9 [facility] Work Phone: CO2 (BldA) [Partial pressure ]on 09-20-2021 CO2 (Bld) [Partial pressure] 36.2 mm[Hg] 35-45 [facility] Work Phone: Laboratory - Chemistry and C hemistry - challengeon 09-20-2021 Magnesium [Mass/Vol] 2.4 mg/dL 1.6-2.6 [facility] Work Phone: No Panel Informationon 09-20 Bedside Blood Gas PEEP 10 [facility] Work Phone: Bedside Blood Gas Pressure Support 4 [facility] Work Phone: Blood Gas Oxygen Percent 65 [facility] Work Phone: Blood Gas Respiration Rate 12 [facility] Work Phone: Blood Gas Sample Site L Radial [facility] Work Phone: Blood Gas Specimen Type ART [facility] Work Phone: Blood Gas Total CO2 26 mmol/L [facility] Work Phone: Oxygen Delivery Device BiPAP [facility] Work Phone: Oxygen (BldA) [Partial press ure]on 09-20-2021 Oxygen (Bld) [Partial pressure] 120 mmHG 75-100 [facility] Work Phone: pH measurementon 09-20-2021 pH (Unsp spec) 7.44 [pH] 7.35-7.45 [facility] Work Phone: Laboratory - Chemistry and C hemistry - challengeon 09-18-2021 Natriuretic peptide B (Bld) [Mass/Vol] 42.9 pg/mL 0-100 [facility] Work Phone: Serum or plasma C reactive p rotein measurement (mass/volume)on 09-18-2021 CRP [Mass/Vol] 111.00 mg/L 0.0-3.0 [facility] Work Phone: Comment on above: C-Reactive Protein ( CRP) provides useful information for thediagnosis, therapy and monitoring of inflammatory processesand associated diseases. For the evaluation of Relative Riskfor Cardiovascular Disease, a High Sensitivity CRP (HSCRP)should be ordered. Serum procalcitonin measurem enton 09-18-2021 Procalcitonin [Mass/Vol] 0.09 ng/mL 0.00-0.09 [facility] Work Phone: Comment on above: A procalcitonin (PCT ) level above 2.0 ng/mL on the first day of ICU admission is associated with a high risk for progression to severe sepsis and/or septic shock. A PCT level below 0.5 ng/mL on the first day of ICU admission is associated with a low risk for progression to severe and/or septic shock. Note: Concentrations <0.5 ng/mL do not exclude an infection on account of localized infections (without systemic signs) which can be associated with such low concentrations, or a systemic infection in its initial stages (<6 hours). Furthermore, increased procalcitonin can occur without infection. PCT concentrations between 0.5 and 2.0 ng/mL should be interpreted taking into account the patient's history. It is recommended to retest PCT within 6-24 hours if any concentrations <2 ng/mL are obtained. No Panel Informationon 09-17 Streptococcus pneumoniae Antigen (M [facility] Work Phone: Troponin I High Sensitivity 27 pg/mL 3.0-78.0 [facility] Work Phone: Comment on above: Please Note: New [place] t Units and Gender Specific Reference Ranges. For more information see Policy Stat Procedure [place] High Sensitivity Troponin (TNIH) and attachments. No Panel Informationon 09-16 INR International Normalized Ratio 5.0 [facility] Work Phone: Absolute lymphocyte counton 09-14-2021 Lymphocytes Auto (Unsp spec) [#/Vol] 0.84 10*3/uL 0.83-4.51 [facility] Work Phone: Basophil percentageon 2021 Basophils/100 WBC (Bld) 0.4 % 0-1 [facility] Work Phone: Bilirubin [Mass/Vol] 0.50 mg/dL 0.20-1.00 [facility] Work Phone: Comment on above: For patients on eltr ombopag therapy, use of Dimension [place] TBIL is not recommended. Chloride [Moles/Vol] 106 mmol/L 98-107 [facility] Work Phone: Eosinophils/100 WBC (Bld) 1.7 % 0-5 [facility] Work Phone: Glucose [Mass/Vol] 110 mg/dL 74-106 [facility] Work Phone: Comment on above: Fasting Glucose resu lt from 100 to 125 mg/dL suggests IMPAIRED HOMEOSTASIS per A.D.A. criteria. Neutrophils (Bld) [#/Vol] 3.3 10*3/uL 2.0-7.7 [facility] Work Phone: Neutrophils/100 WBC (Bld) 68.8 % 47-70 [facility] Work Phone: Potassium [Moles/Vol] 4.2 mmol/L 3.5-5.1 [facility] Work Phone: Comment on above: Slight Hemolysis, Re sult may be falsely increased. Protein [Mass/Vol] 6.3 g/dL 6.4-8.2 [facility] Work Phone: Sodium [Moles/Vol] 133 mmol/L 136-145 [facility] Work Phone: WBC (Bld) [#/Vol] 4.8 10*3/uL 4.4-11.0 [facility] Work Phone: Blood erythrocytes count (nu mber/volume)on 09-14-2021 RBC (Bld) [#/Vol] 5.10 10*6/uL 4.6-6.2 [facility] Work Phone: Blood hemoglobin measurement (mass/volume)on 09-14-2021 Hemoglobin (Bld) [Mass/Vol] 15.3 g/dL 13.0-16.5 [facility] Work Phone: Blood lymphocytes/100 leukoc yteson 09-14-2021 Lymphocytes/100 WBC (Bld) 17.6 % 19-41 [facility] Work Phone: Blood monocytes/100 leukocyt eson 09-14-2021 Monocytes/100 WBC (Bld) 10.7 % 0-10 [facility] Work Phone: Blood platelet mean volumeon 09-14-2021 Platelet mean volume (Bld) [Entitic vol] 11.2 fL 6.2-12.0 [facility] Work Phone: Determination of erythrocyte mean corpuscular volume (MCV)on 09-14-2021 MCV (RBC) [Entitic vol] 91.6 fL 80-94 [facility] Work Phone: Comment on above: Delta: 86.9 on 09/13 Glucose Glucometer (BldC) [M ass/Vol]on 09-14-2021 Glucose [Mass/Vol] 146 mg/dL 70-110 [facility] Work Phone: Comment on above: MANAGEMENT OF PATIEN T CARE PER NURSING PROTOCOL Hematocrit Auto (Bld) [Volum e fraction]on 09-14-2021 Hematocrit (Bld) [Volume fraction] 46.7 % 40-54 [facility] Work Phone: INR in Blood by Coagulation assayon 09-14-2021 INR Coag (Bld) [Relative time] 1.6 {INR} [facility] Work Phone: Laboratory - Chemistry and C hemistry - challengeon 09-14-2021 ALP [Catalytic activity/Vol] 65 U/L 45-117 [facility] Work Phone: ALT [Catalytic activity/Vol] 37 U/L 16-61 [facility] Work Phone: CO2 [Moles/Vol] 20.0 mmol/L 21.0-32.0 [facility] Work Phone: Globulin (S) [Mass/Vol] 3.9 g/dL 2.2-4.2 [facility] Work Phone: Urea nitrogen/Creatinine [Mass ratio] 16.7 mg/mg 10-20 [facility] Work Phone: Laboratory - Coagulationon 0 09-14-2021 PT Coag (PPP) [Time] 18.4 s 11.7-14.9 [facility] Work Phone: Laboratory - Hematology and Cell countson 09-14-2021 Erythrocyte distribution width (RBC) [Entitic vol] 42.4 fL 35.1-43.9 [facility] Work Phone: Erythrocyte distribution width (RBC) [Ratio] 12.5 % 11.6-14.6 [facility] Work Phone: Immature granulocytes/100 WBC (Bld) 0.800 % 0.0-0.9 [facility] Work Phone: Comment on above: IG% - Immature Granu locytes (promyelocytes, myelocytes and metamyelocytes) > 1% indicates that a LEFT SHIFT is Present. MCH (RBC) [Entitic mass] 30.0 pg 27.0-32.0 [facility] Work Phone: Nucleated RBC/100 WBC (Bld) [Ratio] 0 % 0-5 [facility] Work Phone: MCHC Auto (RBC) [Mass/Vol]on 09-14-2021 MCHC (RBC) [Mass/Vol] 32.8 g/dL 32-36 [facility] Work Phone: Comment on above: Delta: 35.3 on 09/13 No Panel Informationon 09-14 Estimated Creatinine Clearance Calc 59.64 ml/min [facility] Work Phone: Estimated GFR (MDRD) Amer 90 mL/min >60 [facility] Work Phone: Comment on above: GFR Calc Estimated GFR (MDRD) Non-Af Amer 75 mL/min >60 [facility] Work Phone: Comment on above: Non- GFR Calc Platelets bldon 09-14-2021 Platelets (Bld) [#/Vol] 100 10*3/uL 150-450 [facility] Work Phone: Serum or plasma albumin shira urement (mass/volume)on 09-14-2021 Albumin [Mass/Vol] 2.4 g/dL 3.2-5.0 [facility] Work Phone: Serum or plasma albumin/glob ulin mass ratioon 09-14-2021 Albumin/Globulin [Mass ratio] 0.6 {ratio} 0.9-2.4 [facility] Work Phone: Serum or plasma calcium shira urement (mass/volume)on 09-14-2021 Calcium [Mass/Vol] 8.0 mg/dL 8.5-10.1 [facility] Work Phone: Serum or plasma creatinine m easurement (mass/volume)on 09-14-2021 Creatinine [Mass/Vol] 1.02 mg/dL 0.70-1.30 [facility] Work Phone: Comment on above: The validity of the calculated GFR & GFRAA in patients over 70 years has not been determined. Clinical correlation is essential. Serum or plasma urea nitroge n measurement (mass/volume)on 09-14-2021 Urea nitrogen [Mass/Vol] 17 mg/dL 7-18 [facility] Work Phone: Thin prep Papanicolaou smear with manual screeningon 09-14-2021 Thin prep Papanicolaou smear with manual screening 53 U/L 15-37 [facility] Work Phone: Comment on above: Slight Hemolysis, Re sult may be falsely increased. Thin prep Papanicolaou smear with manual screening 7 5-15 [facility] Work Phone: Laboratory - Chemistry and C hemistry - challengeon 09-13-2021 CK [Catalytic activity/Vol] 247 U/L 39-308 [facility] Work Phone: No Panel Informationon 09-13 Troponin I High Sensitivity 41 pg/mL 3.0-78.0 [facility] Work Phone: Comment on above: Please Note: New Maryuri t Units and Gender Specific Reference Ranges. For more information see Policy Stat Procedure [place] High Sensitivity Troponin (TNIH) and attachments. Serum or plasma C reactive p rotein measurement (mass/volume)on 09-13-2021 CRP [Mass/Vol] 35.90 mg/L 0.0-3.0 [facility] Work Phone: Comment on above: C-Reactive Protein ( CRP) provides useful information for thediagnosis, therapy and monitoring of inflammatory processesand associated diseases. For the evaluation of Relative Riskfor Cardiovascular Disease, a High Sensitivity CRP (HSCRP)should be ordered. Basophil percentageon 2021 Basophil percentage 3.4 mg/dL 2.5-4.9 [facility] Work Phone: Culture, urineon 09-12-2021 Bacteria identified Cx Nom (U) Culture exhibits no growth. [facility] Work Phone: Laboratory - Chemistry and C hemistry - challengeon 09-12-2021 Magnesium [Mass/Vol] 2.6 mg/dL 1.6-2.6 [facility] Work Phone: No Panel Informationon 09-12 Thyroid Stimulating Hormone (TSH) 0.91 uIU/mL 0.358-3.74 [facility] Work Phone: Basophil percentageon 2021 Lactate [Moles/Vol] 1.8 mmol/L 0.4-2.0 [facility] Work Phone: Comment on above: Critical Result(s) C alled at: 16:47:33 09/11/2021 by: little Hernandez PLASTERER HELPER Results read back by same. Basophil percentage 0 SEEN /hpf [facility] Work Phone: Bilirubin Test strip Ql (U)o n 09-11-2021 Bilirubin Ql (U) Negative Negative [facility] Work Phone: Blood manual differential co mment interpretation (narrative result)on 09-11-2021 Manual differential comment Diego (Bld) [Interp] SEE COMMENT [facility] Work Phone: Comment on above: LYMPHOPENIA NOTED Blood platelet adequacy dete ction by light microscopyon 09-11-2021 Platelets LM Ql (Bld) SLT DEC ADEQ [facility] Work Phone: Blood platelet morphology de termination (nominal result)on 09-11-2021 Platelet morphology finding Nom (Bld) LARGE [facility] Work Phone: Ketones Test strip Ql (U)on 09-11-2021 Ketones Ql (U) 5 mg/dl Negative [facility] Work Phone: Laboratory - Coagulationon 0 09-11-2021 aPTT Coag (Bld) [Time] 41.4 s 24.1-36.2 [facility] Work Phone: Laboratory - Hematology and Cell countson 09-11-2021 Anisocytosis Ql (Bld) RARE [facility] Work Phone: Laboratory - Microbiology an d Antimicrobial susceptibilityon 09-11-2021 Bacteria identified Cx Nom (Bld) No growth in 5 days. [facility] Work Phone: Macrocytes detectionon 09-11 Macrocytes Ql (Bld) RARE [facility] Work Phone: Mucus LM Ql (Urine sed)on Mucus Ql (Urine sed) 2+ /hpf [facility] Work Phone: Nitrite Test strip Ql (U)on 09-11-2021 Nitrite Ql (U) Negative Negative [facility] Work Phone: No Panel Informationon 09-11 SARS-CoV-2 Antigen (Rapid) SARS-CoV-2 (COVID 19) [facility] Work Phone: Protein Test strip Ql (U)on 09-11-2021 Protein Ql (U) 15 mg/dl Negative [facility] Work Phone: RBC morphologyon 09-11-2021 RBC morphology finding Nom (Bld) N CHROM NORMAL NORM C&C [facility] Work Phone: Squamous epithelial cells de tection in urine sediment by light microscopyon 09-11-2021 Epithelial cells.squamous LM Ql (Urine sed) 0 SEEN /hpf [facility] Work Phone: Urine blood detectionon 08-21 RBC Ql (U) Negative Negative [facility] Work Phone: RBC Ql (U) 0 SEEN /hpf [facility] Work Phone: Urine clarityon 09-11-2021 Clarity (U) Clear Clear [facility] Work Phone: Urine color determinationon 09-11-2021 Color (U) Yellow Yellow [facility] Work Phone: Urine glucose detectionon Glucose Ql (U) Normal mg/dl Normal [facility] Work Phone: Urine leukocyte esterase det ection by dipstickon 09-11-2021 Leukocyte esterase Test strip Ql (U) Negative Negative [facility] Work Phone: Urine pHon 09-11-2021 pH (U) 5.0 [pH] [facility] Work Phone: Urine sediment bacteria coun t by microscopy (number/high power field)on 09-11-2021 Bacteria LM.HPF (Urine sed) [#/Area] 1 /[HPF] None Seen [facility] Work Phone: Urine specific gravity measu rementon 09-11-2021 Specific gravity (U) [Rel density] 1.020 [facility] Work Phone: Urobilinogen Auto test strip Ql (U)on 09-11-2021 Urobilinogen Ql (U) Normal mg/dl Normal [facility] Work Phone: CNNURSEon 10-21-2020 CNNURSE Nurse Visit (COVAMD) -------- HARRISON MILLIGAN ([id number]) 1940 M Date Time Provider Department 10/21/20 JYOTI KWONG (EXECUTIVE CREATIVE DIRECTOR) BLAINE During your visit today, we recorded the following information about you: Allergies As of Date: 10/21/2020 (No Known Allergies) Date Reviewed: 05/03/2020 Reviewed by: Pari Haile Ma - Fully Assessed Order(s):[employer] SARS-COV-2 VACCINE 2D DOSE APPT [[id number]] Order #: [id number] Prescriptions as of 10/21/2020 Sig: METOPROLOL TARTRATE 50 MG TAB* Take 1 tablet by mouth twice * SIMVASTATIN 40 MG TABLET Take 1 tablet by mouth daily * X POTASSIUM CHLORIDE ER 20 MEQ * Take 1 tablet by mouth three * SILVER SULFADIAZINE 1 % TOPIC* Apply 1 application to affect* WARFARIN 5 MG TABLET Take 1 tablet by mouth daily * X TAMSULOSIN 0.4 MG CAPSULE Take 2 capsules by mouth ochoa* Patient not taking: Reported on 04/29/2019 MELATONIN 3 MG TABLET Take 1 tablet by mouth at bed* X ACETAMINOPHEN 325 MG TABLET Take 2 tablets by mouth every* Patient not taking: Reported on 04/29/2019 X POLYETHYLENE GLYCOL 3350 17 G* Take 1 Packet by mouth once d* Patient not taking: Reported on 12/12/2018 MULTIVITAMIN ORAL Take by mouth. Problem List As Of Date 10/21/2020 Noted Resolved Ataxia S/P CVA [I69.993] 03/16/2011 Essential hypertension [I10] 03/28/2011 Mixed hyperlipidemia [E78.2] 03/28/2011 History of stroke [Z86.73] 02/28/2014 BMI 40.0-44.9, adult (HCC) [Z68.41] 02/23/2015 CAD (coronary artery disease) [I25.10] 10/22/2018 NSTEMI (non-ST elevated myocardial infarction) *10/22/2018 Cerebrovascular disease [I67.9] 10/22/2018 Aortic stenosis [I35.0] 10/22/2018 S/P CABG (coronary artery bypass graft) [Z95.1] 11/02/2018 S/P AVR [Z95.2] 11/02/2018 Acute urinary retention [R33.8] 11/04/2018 Paroxysmal atrial fibrillation (HCC) [I48.0] 11/24/2018 Venous ulcer, limited to breakdown of skin (HCC*04/29/2019 Pre-diabetes [R73.03] 05/27/2019 Encounter Status:[facility] 12-20-2018 [facility] Telephone (Dónde) -------- HARRISON MILLIGAN ([id number]) 1940 M Date Time Provider Department 12/20/18 FLAKITA BAKER ([facility]) Dónde During your visit today, we recorded the following information about you: Rosa Mariasaba Stone 12/20/2018 9:10 AM Signed The patient's Francisca called in to let Harmony know that the culture on Mr. Milligan's leg was negative. She said she should know what that means. Francisca can be reached at [phone]. Flakita Baker APRN.SHERI, TITA.SHERI 12/23/2018 10:18 AM Signed Thank you for the kind notification on the leg culture. I had asked patient to inform me if they know so I am in loop of the issue. The culture was previously requested by Dr. Kebede to rule out potential infection. Glad it is negative. Patient is good to have future f/u with [facility] from cardiothoracic surgery standpoint. He was encourage to contact [facility] as needed. Thanks. Flakita Baker APRN.CNP Allergies As of Date: 12/20/2018 (No Known Allergies) Date Reviewed: 12/12/2018 Reviewed by: Kaylie Waddell LPN - Fully Assessed Reason for Visit: Patient Update [1234] Prescriptions as of 12/20/2018 Sig: BUMETANIDE 1 MG TABLET Take 3 tablets by mouth once * METFORMIN ER 500 MG TABLET,EX* Take 1 tablet by mouth daily * POTASSIUM CHLORIDE ER 20 MEQ * Take 1 tablet by mouth three * TAMSULOSIN 0.4 MG CAPSULE Take 2 capsules by mouth ochoa* METOPROLOL TARTRATE 50 MG TAB* Take 1 tablet by mouth twice * ACETAMINOPHEN 325 MG TABLET Take 2 tablets by mouth every* Patient not taking: Reported on 11/26/2018 ALBUTEROL SULFATE HFA 90 MCG/* Inhale 1-2 Puffs as instructe* CLOPIDOGREL 75 MG TABLET Take 1 tablet by mouth once d* MAGNESIUM OXIDE 400 MG (241.3* Take 1 tablet by mouth twice * MELATONIN 3 MG TABLET Take 1 tablet by mouth at bed* Patient not taking: Reported on 11/26/2018 POLYETHYLENE GLYCOL 3350 17 G* Take 1 Packet by mouth once d* Patient not taking: Reported on 12/12/2018 WARFARIN 2.5 MG TABLET Take 1 tablet by mouth once d* Patient taking differently: Take 5 mg by mouth once daily* SIMVASTATIN 40 MG TABLET Take 1 tablet by mouth daily * MULTIVITAMIN ORAL Take by mouth. Problem List As Of Date 12/20/2018 Noted Resolved Ataxia S/P CVA [I69.993] INVALID FOR* Essential hypertension [I10] INVALID FOR* Mixed hyperlipidemia [E78.2] INVALID FOR* History of stroke [Z86.73] INVALID FOR* BMI 40.0-44.9, adult (HCC) [Z68.41] INVALID FOR* CAD (coronary artery disease) [I25.10] INVALID FOR* NSTEMI (non-ST elevated myocardial infarction) *INVALID FOR* Cerebrovascular disease [I67.9] INVALID FOR* Aortic stenosis [I35.0] INVALID FOR* S/P CABG (coronary artery bypass graft) [Z95.1] INVALID FOR* S/P AVR [Z95.2] INVALID FOR* Acute urinary retention [R33.8] INVALID FOR* Paroxysmal atrial fibrillation (HCC) [I48.0] INVALID FOR* More... Encounter Status:Closed by ROSA MARIA STONE on 12/20/18 [facility] CNOVon 12-12-2018 CNOV Office Visit (ELIZABETH OHARA) -------- HARRISON MILLIGAN ([id number]) 1940 M Date Time Provider Department 12/12/18 3:00 PM FLAKITA BAKER (SHERI) CLAUDIA During your visit today, we recorded the following information about you: Pulse Respiration Blood pressure Weight 74/minute 20/minute 124/70 134.3 kg Height 1.803 m Flakita Baker APRN.CNP, APRN.CNP 12/12/2018 3:52 PM Signed HPI:Harrison Milligan is a 78 year old male that returns to the office today for post-discharge follow up?NSTEMI and Aortic stenosis?for s/p combined?CABG x 3 (ramos-lad; svg-diag; svg-om; evh); AVR (23 Trifecta pericardial)?performed on?10/29/2018.?His?post-o p recovery was complicated by anticipated acute respiratory insufficiency due to morbid obesity/restrictive lung disease; metabolic acidosis; acute urinary retention required prolonged cedeno placement and urologist consult;?atrial fibrillation on POD #4, then POD #6?required coumadin for anticoagulant.?He?was discharged on?11/06/2018?to home with [facility]. Patient has been seeing [facility] as well as Dr. Kebede for post-op HF management. He returns today with his and son for post-surgical follow up. Mr. Milligan reports home recovery as listed below: Episodes of dizziness or syncope: no, not unless I got up too quick from bed chest pain: no Palpitations: no BP: controlled per home log: pretty consistent per patient. 124-136 SBP, 60s for HR Tolerating diet well without changing bowel habits: yes. food tastes bad because no salt. Fever, chills: no Activities at home without SOB or WOLF: still a bit shortness of breath when walk, also not walking enough at home Post surgical pain without pain medications. Leg edema: slightly improved. Both are currently warp. Had blisters cut open at wound care center and was tested for infection as requested by Dr. Kebede, per patient and . Insomnia: sleeping now, in bed, much better from before. Subjective: Current Outpatient Medications: metFORMIN ER (GLUCOPHAGE XR) 500 mg 24 hr tablet Take 1 tablet by mouth daily with breakfast. bumetanide (BUMEX) 1 mg tablet Take 2 tablets by mouth once daily. potassium chloride ER (K-DUR, KLOR-CON) 20 mEq tablet Take 1 tablet by mouth three times daily. tamsulosin ER (FLOMAX) 0.4 mg cap Take 2 capsules by mouth daily at bedtime. metoprolol tartrate, short acting, (LOPRESSOR) 50 mg tablet Take 1 tablet by mouth twice daily. albuterol HFA (PROVENTIL HFA) 90 mcg/actuation inhaler Inhale 1-2 Puffs as instructed three times daily. clopidogrel (PLAVIX) 75 mg tablet Take 1 tablet by mouth once daily. warfarin (COUMADIN) 2.5 mg tablet Take 1 tablet by mouth once daily. (Patient taking differently: Take 5 mg by mouth once daily. ) simvastatin (ZOCOR) 40 mg tablet Take 1 tablet by mouth daily at bedtime. MULTIVITAMIN ORAL Take by mouth. acetaminophen (TYLENOL) 325 mg tablet Take 2 tablets by mouth every 6 hours as needed. (Patient not taking: Reported on 11/26/2018 ) magnesium oxide (MAG-OX) 400 mg (241.3 mg magnesium) tablet Take 1 tablet by mouth twice daily. melatonin 3 mg tablet Take 1 tablet by mouth at bedtime as needed (insomnia). (Patient not taking: Reported on 11/26/2018 ) polyethylene glycol 3350 (MIRALAX, GLYCOLAX) 17 gram packet Take 1 Packet by mouth once daily as needed. (Patient not taking: Reported on 12/12/2018 ) No current facility-administered medications for this visit. Patient has no known allergies. PAST MEDICAL HISTORY Diagnosis Date - Acute on chronic diastolic heart failure (HCC) - Aortic valve stenosis - CAD (coronary artery disease) - Cerebrovascular disease 10/22/2018 - High blood pressure - HLD (hyperlipidemia) - NSTEMI (non-ST elevated myocardial infarction) ([facility]) - S/P AVR (aortic valve replacement) 10/29/2018 [facility] Trifecta pericardial prosthesis - S/P CABG x 3 10/29/2018 - Stroke ([facility]) PAST SURGICAL HISTORY Procedure Laterality Date - CABG (3) VEIN GRAFTS AND ARTERIAL GRAFT(S) 10/29/2018 - CARDIAC CATH 10/21/2018 [facility] - REPLAC AORT VALV PROSTH VALV 10/29/2018 [facility] Trifecta pericardial prosthesis - TONSILLECTOMY AND ADENOIDECTOMY HX FAMILY HISTORY Problem Relation Age of Onset - Diabetes Father - Thyroid Sister - Cancer Mother thyroid - Diabetes Mother - Hypertension Mother Social History Tobacco Use - Smoking status: Never Smoker - Smokeless tobacco: Never Used Substance Use Topics - Alcohol use: No - Drug use: No Review of Systems Constitutional: Negative for chills, fever, malaise/fatigue and weight loss. HENT: Negative for sore throat. Respiratory: Positive for shortness of breath. Negative for cough, sputum production and wheezing. With activities at times. Cardiovascular: Positive for leg swelling. Negative for chest pain, palpitations, orthopnea, claudication and PND. Still there, but improved from before Gastrointestinal: Negative for abdominal pain, blood in stool, constipation, diarrhea, melena, nausea and vomiting. Genitourinary: Negative for dysuria. Musculoskeletal: Negative for falls and joint pain. Skin: No new lesions Neurological: Negative for dizziness, tingling, sensory change, focal weakness, weakness and headaches. Endo/Heme/Allergies: Does not bruise/bleed easily. Psychiatric/Behavioral: Negative for depression. Objective: CXR 11/26/2018: IMPRESSION: Small left pleural effusion. ?Mild right basilar atelectasis. Physical Examination: Vitals:BP 124/70 Pulse 74 Resp 20 Ht 5' 11 (1.80m) Wt 296 lb (134.3kg) SpO2 98% BMI 41.30 kg/(m2). BP w/Orthostatic Vitals Date and Time Orthostatic BP Orthostatic Pulse BP Pulse BP Position BP Site BP Cuff Size 12/12/18 1437 -- -- 124/70 74 Sitting Left Arm -- Peak Flow Date and Time PF Resp 12/12/18 1437 -- 20 Last 2 Encounter Wt Readings: Date: Wt: 12/12/2018 296 lb (134.3 kg) 11/26/2018 297 lb (134.7 kg) Physical Exam Constitutional: He is oriented to person, place, and time and well-developed, well-nourished, and in no distress. He appears not dehydrated. He appears healthy. He does not have a sickly appearance. No distress. HENT: Head: Normocephalic. Mouth/Throat: No oropharyngeal exudate. Neck: Normal range of motion. No hepatojugular reflux and no JVD present. Carotid bruit is not present. No edema and no erythema present. Cardiovascular: Normal rate, regular rhythm, S1 normal, S2 normal, normal heart sounds and intact distal pulses. PMI is not displaced. Exam reveals no gallop, no S3, no S4, no distant heart sounds, no friction rub and no decreased pulses. No murmur heard. Pulmonary/Chest: Effort normal and breath sounds normal. No respiratory distress. He has no wheezes. He has no rhonchi. He has no rales. He exhibits no tenderness. Sternal stability is normal. Abdominal: Soft. Bowel sounds are normal. He exhibits no distension and no mass. There is no tenderness. There is no rebound and no guarding. Musculoskeletal: Normal range of motion. He exhibits edema. He exhibits no tenderness. +1 BLE Neurological: He is alert and oriented to person, place, and time. Gait normal. Skin: Skin is warm and dry. No bruising, no lesion, no petechiae and no rash noted. He is not diaphoretic. No cyanosis or erythema. No pallor. Sternal incision is healed. No drainage, redness or foul odor. Same presentation appears on the chest tube wounds. SVG harvest site incision is now covered with dressing that patient state it was tested for infection yesterday. It is tightly wrapped with gauze and DSD underneath.No drainage, or foul odor noted. Psychiatric: Mood and affect normal. Nursing note and vitals reviewed. Assessment and Plan: ASSESSMENT/PLAN: 1. SOB (shortness of breath) - ICD9: 786.05, ICD10: R06.02 (primary diagnosis) -Persistent SOB likely due to restrictive lung disease, pre-op FEVI=63% -advised to c/w walking and DB and IS 2. S/P CABG (coronary artery bypass graft) - ICD9: V45.81, ICD10: Z95.1 -C/W:Statin 40 mg /metoprolol 50 mg BID/ NO ASA (since already on Pavix and Coumadin, no need on triple therapy) - Plavix for ACS/NSTEMI protocol - CARDIAC REHAB II OUTPT ([place], [place]) -ok to start rehab at [facility] -f/u with [facility] natural resources specialist: Dr. Kebede -ok to drive and back to work If tolerated 3. S/P AVR - ICD9: V43.3, ICD10: Z95.2 -post-op Echo: EF 75%, P/M gradients 7/5 DI 0.86 -f/u with [facility] natural resources specialist: Dr. Kebede - CARDIAC REHAB II OUTPT ([place], [place]) 4. Lower leg edema - ICD9: 782.3, ICD10: R60.0 -c/w current diuresis: Bumex, increased to 2 mg since 11/26/2018, Dr. Kebede team up to 3 mg daily - slightly improved - would let me know about the culture result on the left lower leg wound 5. Fluid overload, unspecified - ICD9: 276.69, ICD10: E87.70 -see plans listed in #4 6. Paroxysmal atrial fibrillation (HCC) - ICD9: 427.31, ICD10: I48.0 -RRR per auscultations in office today -NSR per EKG 11/26/2018 -C/W Coumadin and managed by Dr. Kebede In summary, Patient is doing well overall after the MCABG sugery, with no major complaints except slight SOB with walking. Patient is released to drive, work. Patient should start cardiac rehab from this point on. he should follow up with his natural resources specialist-Dr. Kebede for further HEpEF management, urologist and PCP as scheduled, and only needs to be seen here on a as needed basis. Thanks. Electronically signed by Flakita Baker APRN.CNP on December 12, 2018, 3:05 PM Flakita Baker APRN.CNP, APRN.CNP 12/12/2018 3:26 PM Signed You have done a great job recovering from you surgery, however, there are still additional components to your remaining recovery: Driving: Ok to drive. Rehab: Please start cardiac rehab, contacts are listed below if they haven't contact you. Rehab Contacts: [phone] ([facility]) or [phone] ([facility]) Restrictions: Please allow time to heal, slowly increase weight bearing in a gradual fashion (5lbs increment each month) over the next 2-3 months, then can gradually resume your normal activity depend on how you feel. Follow-ups: It is crucial to establish future appointments with your other providers. Please follow up with your natural resources specialist and your primary care doctor and your card cutter helper so that they can continue helping you with your medications and future health concerns. You are no longer needed to follow up here with the cardiac surgeons unless necessary. Please don't hesitate to contact us if you have any concerns/questions: [phone] Flakita Baker APRN.CNP Referring Provider: LATONIA YARBROUGH [[id number]] Allergies As of Date: 12/12/2018 (No Known Allergies) Date Reviewed: 12/12/2018 Reviewed by: Kaylie Waddell LPN - Fully Assessed Reason for Visit: Post Op [174] Cmt: 10/29/18 AVR,MCABG Primary Visit Diagnosis:SOB (shortness of breath) [R06.02] Other Visit Diagnoses:S/P CABG (coronary artery bypass graft) [Z95.1] S/P AVR [Z95.2] Lower leg edema [R60.0] Fluid overload, unspecified [E87.70] Paroxysmal atrial fibrillation (HCC) [I48.0] Order(s):CARDIAC REHAB II OUTPT ([place]) [[id number]] Order #: [id number]: 1 bumetanide (BUMEX) 1 mg tabletTake 3 tablets by mouth once daily.Disp: 90 tabletRfl: 0 Prescriptions as of 12/12/2018 Sig: BUMETANIDE 1 MG TABLET Take 3 tablets by mouth once * METFORMIN ER 500 MG TABLET,EX* Take 1 tablet by mouth daily * POTASSIUM CHLORIDE ER 20 MEQ * Take 1 tablet by mouth three * TAMSULOSIN 0.4 MG CAPSULE Take 2 capsules by mouth ochoa* METOPROLOL TARTRATE 50 MG TAB* Take 1 tablet by mouth twice * ALBUTEROL SULFATE HFA 90 MCG/* Inhale 1-2 Puffs as instructe* CLOPIDOGREL 75 MG TABLET Take 1 tablet by mouth once d* WARFARIN 2.5 MG TABLET Take 1 tablet by mouth once d* Patient taking differently: Take 5 mg by mouth once daily* SIMVASTATIN 40 MG TABLET Take 1 tablet by mouth daily * MULTIVITAMIN ORAL Take by mouth. ACETAMINOPHEN 325 MG TABLET Take 2 tablets by mouth every* Patient not taking: Reported on 11/26/2018 MAGNESIUM OXIDE 400 MG (241.3* Take 1 tablet by mouth twice * MELATONIN 3 MG TABLET Take 1 tablet by mouth at bed* Patient not taking: Reported on 11/26/2018 POLYETHYLENE GLYCOL 3350 17 G* Take 1 Packet by mouth once d* Patient not taking: Reported on 12/12/2018 Problem List As Of Date 12/12/2018 Noted Resolved Ataxia S/P CVA [I69.993] INVALID FOR* Essential hypertension [I10] INVALID FOR* Mixed hyperlipidemia [E78.2] INVALID FOR* History of stroke [Z86.73] INVALID FOR* BMI 40.0-44.9, adult (HCC) [Z68.41] INVALID FOR* CAD (coronary artery disease) [I25.10] INVALID FOR* NSTEMI (non-ST elevated myocardial infarction) *INVALID FOR* Cerebrovascular disease [I67.9] INVALID FOR* Aortic stenosis [I35.0] INVALID FOR* S/P CABG (coronary artery bypass graft) [Z95.1] INVALID FOR* S/P AVR [Z95.2] INVALID FOR* Acute urinary retention [R33.8] INVALID FOR* Paroxysmal atrial fibrillation (HCC) [I48.0] INVALID FOR* More... Other instructions from your clinician: You have done a great job recovering from you surgery, however, there are still additional components to your remaining recovery: Driving: Ok to drive. Rehab: Please start cardiac rehab, contacts are listed below if they haven't contact you. Rehab Contacts: [phone] ([facility]) or [phone] ([facility]) Restrictions: Please allow time to heal, slowly increase weight bearing in a gradual fashion (5lbs increment each month) over the next 2-3 months, then can gradually resume your normal activity depend on how you feel. Follow-ups: It is crucial to establish future appointments with your other providers. Please follow up with your natural resources specialist and your primary care doctor and your card cutter helper so that they can continue helping you with your medications and future health concerns. You are no longer needed to follow up here with the cardiac surgeons unless necessary. Please don't hesitate to contact us if you have any concerns/questions: [phone] Flakita Baker APRN.CNP Prescriptions ordered this encounter Disp Refills Start End BUMETANIDE 1 MG TABLET 90 t* 0 12/12/2018 01/11/2019 Class: Med Update Route: ORAL Sig: Take 3 tablets by mouth once daily. Medications Discontinued During This Encounter bumetanide (BUMEX) 1 mg tablet 60 t* 0 11/26/2018 12/12/2018 Route: ORAL Sig: Take 2 tablets by mouth once daily. Disc: Reason for discontinue is not on file. Follow-up and Disposition History Recorded Encounter Status:Closed by FLAKITA BAKER CNP on 12/12/18 [facility] PROGRESSon 12-12-2018 PROGRESS HNO ID: [id number] Author: Flakita (Sheri) TITA Baker.SHERI Service: ? Author Type: Nurse Practitioner Type: Progress Notes Filed: 12/12/2018 3:52 PM Note Text: HPI:Harrison Milligan is a 78 year old male that returns to the office today for post-discharge follow up?NSTEMI and Aortic stenosis?for s/p combined?CABG x 3 (ramos-lad; svg-diag; svg-om; evh); AVR (23 Trifecta pericardial)?performed on?10/29/2018.?His?post-o p recovery was complicated by anticipated acute respiratory insufficiency due to morbid obesity/restrictive lung disease; metabolic acidosis; acute urinary retention required prolonged cedeno placement and urologist consult;?atrial fibrillation on POD #4, then POD #6?required coumadin for anticoagulant.?He?was discharged on?11/06/2018?to home with [facility]. Patient has been seeing [facility] as well as Dr. Kebede for post-op HF management. He returns today with his and son for post-surgical follow up. Mr. Milligan reports home recovery as listed below: Episodes of dizziness or syncope: no, not unless I got up too quick from bed chest pain: no Palpitations: no BP: controlled per home log: pretty consistent per patient. 124-136 SBP, 60s for HR Tolerating diet well without changing bowel habits: yes. food tastes bad because no salt. Fever, chills: no Activities at home without SOB or WOLF: still a bit shortness of breath when walk, also not walking enough at home Post surgical pain without pain medications. Leg edema: slightly improved. Both are currently warp. Had blisters cut open at wound care center and was tested for infection as requested by Dr. Kebede, per patient and . Insomnia: sleeping now, in bed, much better from before. Subjective: Current Outpatient Medications: metFORMIN ER (GLUCOPHAGE XR) 500 mg 24 hr tablet Take 1 tablet by mouth daily with breakfast. bumetanide (BUMEX) 1 mg tablet Take 2 tablets by mouth once daily. potassium chloride ER (K-DUR, KLOR-CON) 20 mEq tablet Take 1 tablet by mouth three times daily. tamsulosin ER (FLOMAX) 0.4 mg cap Take 2 capsules by mouth daily at bedtime. metoprolol tartrate, short acting, (LOPRESSOR) 50 mg tablet Take 1 tablet by mouth twice daily. albuterol HFA (PROVENTIL HFA) 90 mcg/actuation inhaler Inhale 1-2 Puffs as instructed three times daily. clopidogrel (PLAVIX) 75 mg tablet Take 1 tablet by mouth once daily. warfarin (COUMADIN) 2.5 mg tablet Take 1 tablet by mouth once daily. (Patient taking differently: Take 5 mg by mouth once daily. ) simvastatin (ZOCOR) 40 mg tablet Take 1 tablet by mouth daily at bedtime. MULTIVITAMIN ORAL Take by mouth. acetaminophen (TYLENOL) 325 mg tablet Take 2 tablets by mouth every 6 hours as needed. (Patient not taking: Reported on 11/26/2018 ) magnesium oxide (MAG-OX) 400 mg (241.3 mg magnesium) tablet Take 1 tablet by mouth twice daily. melatonin 3 mg tablet Take 1 tablet by mouth at bedtime as needed (insomnia). (Patient not taking: Reported on 11/26/2018 ) polyethylene glycol 3350 (MIRALAX, GLYCOLAX) 17 gram packet Take 1 Packet by mouth once daily as needed. (Patient not taking: Reported on 12/12/2018 ) No current facility-administered medications for this visit. Patient has no known allergies. PAST MEDICAL HISTORY Diagnosis Date - Acute on chronic diastolic heart failure (HCC) - Aortic valve stenosis - CAD (coronary artery disease) - Cerebrovascular disease 10/22/2018 - High blood pressure - HLD (hyperlipidemia) - NSTEMI (non-ST elevated myocardial infarction) ([facility]) - S/P AVR (aortic valve replacement) 10/29/2018 [facility] Trifecta pericardial prosthesis - S/P CABG x 3 10/29/2018 - Stroke ([facility]) PAST SURGICAL HISTORY Procedure Laterality Date - CABG (3) VEIN GRAFTS AND ARTERIAL GRAFT(S) 10/29/2018 - CARDIAC CATH 10/21/2018 [facility] - REPLAC AORT VALV PROSTH VALV 10/29/2018 [facility] Trifecta pericardial prosthesis - TONSILLECTOMY AND ADENOIDECTOMY HX FAMILY HISTORY Problem Relation Age of Onset - Diabetes Father - Thyroid Sister - Cancer Mother thyroid - Diabetes Mother - Hypertension Mother Social History Tobacco Use - Smoking status: Never Smoker - Smokeless tobacco: Never Used Substance Use Topics - Alcohol use: No - Drug use: No Review of Systems Constitutional: Negative for chills, fever, malaise/fatigue and weight loss. HENT: Negative for sore throat. Respiratory: Positive for shortness of breath. Negative for cough, sputum production and wheezing. With activities at times. Cardiovascular: Positive for leg swelling. Negative for chest pain, palpitations, orthopnea, claudication and PND. Still there, but improved from before Gastrointestinal: Negative for abdominal pain, blood in stool, constipation, diarrhea, melena, nausea and vomiting. Genitourinary: Negative for dysuria. Musculoskeletal: Negative for falls and joint pain. Skin: No new lesions Neurological: Negative for dizziness, tingling, sensory change, focal weakness, weakness and headaches. Endo/Heme/Allergies: Does not bruise/bleed easily. Psychiatric/Behavioral: Negative for depression. Objective: CXR 11/26/2018: IMPRESSION: Small left pleural effusion. ?Mild right basilar atelectasis. Physical Examination: Vitals:BP 124/70 Pulse 74 Resp 20 Ht 5' 11 (1.80m) Wt 296 lb (134.3kg) SpO2 98% BMI 41.30 kg/(m2). BP w/Orthostatic Vitals Date and Time Orthostatic BP Orthostatic Pulse BP Pulse BP Position BP Site BP Cuff Size 12/12/18 1437 -- -- 124/70 74 Sitting Left Arm -- Peak Flow Date and Time PF Resp 12/12/18 1437 -- 20 Last 2 Encounter Wt Readings: Date: Wt: 12/12/2018 296 lb (134.3 kg) 11/26/2018 297 lb (134.7 kg) Physical Exam Constitutional: He is oriented to person, place, and time and well-developed, well-nourished, and in no distress. He appears not dehydrated. He appears healthy. He does not have a sickly appearance. No distress. HENT: Head: Normocephalic. Mouth/Throat: No oropharyngeal exudate. Neck: Normal range of motion. No hepatojugular reflux and no JVD present. Carotid bruit is not present. No edema and no erythema present. Cardiovascular: Normal rate, regular rhythm, S1 normal, S2 normal, normal heart sounds and intact distal pulses. PMI is not displaced. Exam reveals no gallop, no S3, no S4, no distant heart sounds, no friction rub and no decreased pulses. No murmur heard. Pulmonary/Chest: Effort normal and breath sounds normal. No respiratory distress. He has no wheezes. He has no rhonchi. He has no rales. He exhibits no tenderness. Sternal stability is normal. Abdominal: Soft. Bowel sounds are normal. He exhibits no distension and no mass. There is no tenderness. There is no rebound and no guarding. Musculoskeletal: Normal range of motion. He exhibits edema. He exhibits no tenderness. +1 BLE Neurological: He is alert and oriented to person, place, and time. Gait normal. Skin: Skin is warm and dry. No bruising, no lesion, no petechiae and no rash noted. He is not diaphoretic. No cyanosis or erythema. No pallor. Sternal incision is healed. No drainage, redness or foul odor. Same presentation appears on the chest tube wounds. SVG harvest site incision is now covered with dressing that patient state it was tested for infection yesterday. It is tightly wrapped with gauze and DSD underneath.No drainage, or foul odor noted. Psychiatric: Mood and affect normal. Nursing note and vitals reviewed. Assessment and Plan: ASSESSMENT/PLAN: 1. SOB (shortness of breath) - ICD9: 786.05, ICD10: R06.02 (primary diagnosis) -Persistent SOB likely due to restrictive lung disease, pre-op FEVI=63% -advised to c/w walking and DB and IS 2. S/P CABG (coronary artery bypass graft) - ICD9: V45.81, ICD10: Z95.1 -C/W:Statin 40 mg /metoprolol 50 mg BID/ NO ASA (since already on Pavix and Coumadin, no need on triple therapy) - Plavix for ACS/NSTEMI protocol - CARDIAC REHAB II OUTPT ([place], [place]) -ok to start rehab at [facility] -f/u with [facility] resources specialist: Dr. Kebede -mt to drive and back to work If tolerated 3. S/P AVR - ICD9: V43.3, ICD10: Z95.2 -post-op Echo: EF 75%, P/M gradients 7/5 DI 0.86 -f/u with [facility] resources specialist: Dr. Kebede - CARDIAC REHAB II OUTPT ([place], [place]) 4. Lower leg edema - ICD9: 782.3, ICD10: R60.0 -c/w current diuresis: Bumex, increased to 2 mg since 11/26/2018, Dr. Kebede team up to 3 mg daily - slightly improved - would let me know about the culture result on the left lower leg wound 5. Fluid overload, unspecified - ICD9: 276.69, ICD10: E87.70 -see plans listed in #4 6. Paroxysmal atrial fibrillation (HCC) - ICD9: 427.31, ICD10: I48.0 -RRR per auscultations in office today -NSR per EKG 11/26/2018 -C/W Coumadin and managed by Dr. Kebede In summary, Patient is doing well overall after the [facility] sugery, with no major complaints except slight SOB with walking. Patient is released to drive, work. Patient should start cardiac rehab from this point on. he should follow up with his natural resources specialist-Dr. Kebede for further HEpEF management, urologist and PCP as scheduled, and only needs to be seen here on a as needed basis. Thanks. Electronically signed by Flakita Baker APRN.CNP on December 12, 2018, 3:05 PM [facility] CNOVon 11-26-2018 CNOV Office Visit ([facility] ) -------- HARRISON MILLIGAN ([id number]) 1940 M Date Time Provider Department 11/26/18 3:00 PM FLAKITA BAKER (SHERI) CLAUDIA During your visit today, we recorded the following information about you: Pulse Respiration Blood pressure Weight 96/minute 20/minute 148/70 134.7 kg Height 1.803 m Flakita Baker APRN.CNP, APRN.CNP 11/26/2018 4:40 PM Signed HPI: Harrison Milligan is a 78 year old male that returns to the office today for one month post-discharge follow up NSTEMI and Aortic stenosis for s/p combined CABG x 3 (ramos-lad; svg-diag; svg-om; evh); AVR (23 Trifecta pericardial) performed on 10/29/2018. His post-op recovery was complicated by anticipated acute respiratory insufficiency due to morbid obesity/restrictive lung disease; metabolic acidosis; acute urinary retention required cedeno reinsertion and urologist consult; atrial fibrillation on POD #4, then POD #6 required coumadin for anticoagulant. He was discharged on 11/06/2018 to home with [facility]. Episodes of dizziness or syncope: no chest pain: no Palpitations: no BP: controlled per home log: yes, home log reviewed: bp 130/60s, HR 60-70s Tolerating diet well without changing bowel habits: yes Fever, chills: no Activities at home with mild SOB or WOLF: walking a bit more than last time he was here Post surgical pain without pain medications. Leg edema: still the same, the redness is slightly better Subjective: Current Outpatient Medications: bumetanide (BUMEX) 1 mg tablet Take 1 tablet by mouth once daily for 10 days. tamsulosin ER (FLOMAX) 0.4 mg cap Take 2 capsules by mouth daily at bedtime. metoprolol tartrate, short acting, (LOPRESSOR) 50 mg tablet Take 1 tablet by mouth twice daily. acetaminophen (TYLENOL) 325 mg tablet Take 2 tablets by mouth every 6 hours as needed. albuterol HFA (PROVENTIL HFA) 90 mcg/actuation inhaler Inhale 1-2 Puffs as instructed three times daily. clopidogrel (PLAVIX) 75 mg tablet Take 1 tablet by mouth once daily. magnesium oxide (MAG-OX) 400 mg (241.3 mg magnesium) tablet Take 1 tablet by mouth twice daily. melatonin 3 mg tablet Take 1 tablet by mouth at bedtime as needed (insomnia). metFORMIN ER (GLUCOPHAGE XR) 500 mg 24 hr tablet Take 1 tablet by mouth daily with breakfast. polyethylene glycol 3350 (MIRALAX, GLYCOLAX) 17 gram packet Take 1 Packet by mouth once daily as needed. potassium chloride ER (K-DUR, KLOR-CON) 20 mEq tablet Take one tablet by mouth three times daily for 3 days, then one tablet by mouth twice daily after that. warfarin (COUMADIN) 2.5 mg tablet Take 1 tablet by mouth once daily. simvastatin (ZOCOR) 40 mg tablet Take 1 tablet by mouth daily at bedtime. MULTIVITAMIN ORAL Take by mouth. No current facility-administered medications for this visit. Patient has no known allergies. PAST MEDICAL HISTORY Diagnosis Date - Acute on chronic diastolic heart failure (HCC) - Aortic valve stenosis - CAD (coronary artery disease) - Cerebrovascular disease 10/22/2018 - High blood pressure - HLD (hyperlipidemia) - NSTEMI (non-ST elevated myocardial infarction) ([facility]) - S/P AVR (aortic valve replacement) 10/29/2018 [facility] Trifecta pericardial prosthesis - S/P CABG x 3 10/29/2018 - Stroke ([facility]) PAST SURGICAL HISTORY Procedure Laterality Date - CABG (3) VEIN GRAFTS AND ARTERIAL GRAFT(S) 10/29/2018 - CARDIAC CATH 10/21/2018 [facility] - REPLAC AORT VALV PROSTH VALV 10/29/2018 [facility] Trifecta pericardial prosthesis - TONSILLECTOMY AND ADENOIDECTOMY HX FAMILY HISTORY Problem Relation Age of Onset - Diabetes Father - Thyroid Sister - Cancer Mother thyroid - Diabetes Mother - Hypertension Mother Social History Tobacco Use - Smoking status: Never Smoker - Smokeless tobacco: Never Used Substance Use Topics - Alcohol use: No - Drug use: No Review of Systems Constitutional: Negative for chills, fever, malaise/fatigue and weight loss. HENT: Negative for sore throat. Respiratory: Positive for shortness of breath. Negative for cough, sputum production and wheezing. With exertion Cardiovascular: Positive for leg swelling. Negative for chest pain, palpitations, orthopnea, claudication and PND. Still about the same, not much change. Gastrointestinal: Negative for abdominal pain, blood in stool, constipation, diarrhea, melena, nausea and vomiting. Genitourinary: Negative for dysuria. Musculoskeletal: Negative for falls and joint pain. Skin: No new lesions Neurological: Negative for dizziness, tingling, sensory change, focal weakness, weakness and headaches. Endo/Heme/Allergies: Does not bruise/bleed easily. Psychiatric/Behavioral: Negative for depression. The patient has insomnia. Still no sleeping, primary doctor is not doing much either Objective: Patient is going to have CXR done on his way out today. No official read is posted yet, my interpretation is; improvement on the pleural effusion b/l. improvement on the aeration. Physical Examination: Vitals:BP 148/70 Pulse 96 Resp 20 Ht 5' 11 (1.80m) Wt 297 lb (134.7kg) SpO2 96% BMI 41.44 kg/(m2). Last 2 Encounter Wt Readings: Date: Wt: 11/22/2018 298 lb 11.2 oz (135.5 kg) 11/12/2018 303 lb (137.4 kg) Assessment and Plan: ASSESSMENT/PLAN: 1. S/P CABG (coronary artery bypass graft) - ICD9: V45.81, ICD10: Z95.1 (primary diagnosis) -c/w Statin 40 mg /metoprolol 50 mg BID/ NO ASA (since already on Pavix and Coumadin, no need on triple therapy) -c/w BB 50 mg for now as patient has one episode of SB with HR of 30s -C/W DIURESIS-Bumex up to 2 mg daily now with K-dur - BASIC METABOLIC PNL in 4-5 days - ECG today to recheck the rhythm 2. Fluid overload, unspecified - ICD9: 276.69, ICD10: E87.70 - responded well with Bumex 1 mg daily for 10 days, up to 2 mg daily with repeat BMP, Cr 1.11 with Bumex 1 mg on 11/19/2018 - BASIC METABOLIC PNL IN 4-5 DAYS 3. S/P AVR - ICD9: V43.3, ICD10: Z95.2 -post-op Echo: EF 75%, P/M gradients / DI 0.86 on 11/01/2018 -f/u with [facility]: Dr. Kebede on 12/06 -c/w diuresis: lasix change to Bumex 1 mg daily 2 weeks ago, now up to 2 mg -repeat BMP Saturday 12/02 4. Pleural effusion - ICD9: 511.9, ICD10: J90 -Bumex 2 mg daily starting today - BASIC METABOLIC PNL - CXR TODAY 5. Lower leg edema - ICD9: 782.3, ICD10: R60.0 -C/W EVANS and elevation - BASIC METABOLIC PNL in 4-5 days -f/u in 2 weeks -f/u with Dr. Kebede for CHF management 6. Paroxysmal atrial fibrillation (HCC) - ICD9: 427.31, ICD10: I48.0 -c/w BB 50 mg BID WELL Coumadin - ECG COMPLETE In summary, Patient is doing well overall after the [facility] sugery, with current complaints of persistent insomnia, leg edema and mild SOB. We would like patient to f/u in 2 week again after the increased dose of Bumex as he is responding well at this point without elevating his Cr, we will repeat BMP in 4-5 days (via [facility]). Patient would be considered to release to start cardiac rehab likely after the next visit. he should follow up with his natural resources specialist and PCP as scheduled. Electronically signed by Flakita Baker APRN.CNP on November 26, 2018, 2:49 PM Flakita Baker APRN.CNP, ELOINA 11/26/2018 3:51 PM Signed You have done a great job recovering from you surgery, however, there are still additional components to your remaining recovery: Driving: Ok to drive by the end of next week 11/29/2018 . Restrictions: Please allow time to heal, slowly increase weight bearing in a gradual fashion (5lbs increment each month) over the next 2-3 months, then can gradually resume your normal activity depend on how you feel. Follow-ups: It is crucial to establish future appointments with your other providers. Please follow up with your natural resources specialist and your primary care doctor so that they can continue helping you with your medications and future health concerns. Please double up your Bumex and take 20 mEq Potassium three times a day Please contact Dr. Kebede for a sooner time with him Please have chest Xray and EKG done today Please check blood work BMP on 12/02-Sunday, can be done vis [facility] Will see you back in 2 weeks for one more time (hopefully) Please don't hesitate to contact us if you have any concerns/questions: [phone] Flakita Baker APRN.EXECUTIVE CREATIVE DIRECTOR Referring Provider: LATONIA YARBROUGH [[id number]] Allergies As of Date: 11/26/2018 (No Known Allergies) Date Reviewed: 11/26/2018 Reviewed by: Malgorzata (Emili) Damian - Fully Assessed Reason for Visit: Post Op [174] Cmt: CABG x 2, AVR 10/29/18 Primary Visit Diagnosis:S/P CABG (coronary artery bypass graft) [Z95.1] Other Visit Diagnoses:Fluid overload, unspecified [E87.70] S/P AVR [Z95.2] Pleural effusion [J90] Lower leg edema [R60.0] Paroxysmal atrial fibrillation (HCC) [I48.0] Order(s):bumetanide (BUMEX) 1 mg tabletTake 2 tablets by mouth once daily.Disp: 60 tabletRfl: 0 BASIC METABOLIC PNL [SQBMP] Order #: [id number] FUTURE potassium chloride ER (K-DUR, KLOR-CON) 20 mEq tabletTake 1 tablet by mouth three times daily.Disp: 63 tabletRfl: 0 ECG COMPLETE [ECG01] Order #: [id number] FUTURE Prescriptions as of 11/26/2018 Sig: BUMETANIDE 1 MG TABLET Take 2 tablets by mouth once * POTASSIUM CHLORIDE ER 20 MEQ * Take 1 tablet by mouth three * TAMSULOSIN 0.4 MG CAPSULE Take 2 capsules by mouth ochoa* METOPROLOL TARTRATE 50 MG TAB* Take 1 tablet by mouth twice * ALBUTEROL SULFATE HFA 90 MCG/* Inhale 1-2 Puffs as instructe* CLOPIDOGREL 75 MG TABLET Take 1 tablet by mouth once d* MAGNESIUM OXIDE 400 MG (241.3* Take 1 tablet by mouth twice * METFORMIN ER 500 MG TABLET,EX* Take 1 tablet by mouth daily * POLYETHYLENE GLYCOL 3350 17 G* Take 1 Packet by mouth once d* WARFARIN 2.5 MG TABLET Take 1 tablet by mouth once d* Patient taking differently: Take 5 mg by mouth once daily* SIMVASTATIN 40 MG TABLET Take 1 tablet by mouth daily * MULTIVITAMIN ORAL Take by mouth. ACETAMINOPHEN 325 MG TABLET Take 2 tablets by mouth every* Patient not taking: Reported on 11/26/2018 MELATONIN 3 MG TABLET Take 1 tablet by mouth at bed* Patient not taking: Reported on 11/26/2018 Problem List As Of Date 11/26/2018 Noted Resolved Ataxia S/P CVA [I69.993] INVALID FOR* Essential hypertension [I10] INVALID FOR* Mixed hyperlipidemia [E78.2] INVALID FOR* History of stroke [Z86.73] INVALID FOR* BMI 40.0-44.9, adult (HCC) [Z68.41] INVALID FOR* CAD (coronary artery disease) [I25.10] INVALID FOR* NSTEMI (non-ST elevated myocardial infarction) *INVALID FOR* Cerebrovascular disease [I67.9] INVALID FOR* Aortic stenosis [I35.0] INVALID FOR* S/P CABG (coronary artery bypass graft) [Z95.1] INVALID FOR* S/P AVR [Z95.2] INVALID FOR* Acute urinary retention [R33.8] INVALID FOR* Paroxysmal atrial fibrillation (HCC) [I48.0] INVALID FOR* More... Other instructions from your clinician: You have done a great job recovering from you surgery, however, there are still additional components to your remaining recovery: Driving: Ok to drive by the end of next week 11/29/2018 . Restrictions: Please allow time to heal, slowly increase weight bearing in a gradual fashion (5lbs increment each month) over the next 2-3 months, then can gradually resume your normal activity depend on how you feel. Follow-ups: It is crucial to establish future appointments with your other providers. Please follow up with your natural resources specialist and your primary care doctor so that they can continue helping you with your medications and future health concerns. Please double up your Bumex and take 20 mEq Potassium three times a day Please contact Dr. Kebede for a sooner time with him Please have chest Xray and EKG done today Please check blood work BMP on 12/02-Sunday, can be done vis [facility] Will see you back in 2 weeks for one more time (hopefully) Please don't hesitate to contact us if you have any concerns/questions: [phone] Flakita Baker APRN.SHERI Prescriptions ordered this encounter Disp Refills Start End BUMETANIDE 1 MG TABLET 60 t* 0 11/26/2018 12/26/2018 Route: ORAL Sig: Take 2 tablets by mouth once daily. POTASSIUM CHLORIDE ER 20 MEQ TABLET,* 63 t* 0 11/26/2018 12/26/2018 Route: ORAL Sig: Take 1 tablet by mouth three times daily. Medications Discontinued During This Encounter bumetanide (BUMEX) 1 mg tablet 10 t* 0 11/20/2018 11/26/2018 Route: ORAL Sig: Take 1 tablet by mouth once daily for 10 days. Disc: Reason for discontinue is not on file. potassium chloride ER (K-DURGARRY-C* 63 t* 0 11/06/2018 11/26/2018 Class: Print RX Sig: Take one tablet by mouth three times daily for 3 days, then one tablet by mouth twice daily after that. Disc: Reason for discontinue is not on file. Disposition: Return in about 2 weeks (around 12/10/2018). LOS history recorded Follow-up and Disposition History Recorded Letter Text Encounter Status:Closed by FLAKITA BAKER CNP on 11/26/18 [facility] PROGRESSon 11-26-2018 PROGRESS HNO ID: [id number] Author: Flakita Gupta) TITA Baker.SHERI Service: ? Author Type: Nurse Practitioner Type: Progress Notes Filed: 11/26/2018 4:40 PM Note Text: HPI: Harrison Milligan is a 78 year old male that returns to the office today for one month post-discharge follow up NSTEMI and Aortic stenosis for s/p combined CABG x 3 (ramos-lad; svg-diag; svg-om; evh); AVR (23 Trifecta pericardial) performed on 10/29/2018. His post-op recovery was complicated by anticipated acute respiratory insufficiency due to morbid obesity/restrictive lung disease; metabolic acidosis; acute urinary retention required cedeno reinsertion and urologist consult; atrial fibrillation on POD #4, then POD #6 required coumadin for anticoagulant. He was discharged on 11/06/2018 to home with [facility]. Episodes of dizziness or syncope: no chest pain: no Palpitations: no BP: controlled per home log: yes, home log reviewed: bp 130/60s, HR 60-70s Tolerating diet well without changing bowel habits: yes Fever, chills: no Activities at home with mild SOB or WOLF: walking a bit more than last time he was here Post surgical pain without pain medications. Leg edema: still the same, the redness is slightly better Subjective: Current Outpatient Medications: bumetanide (BUMEX) 1 mg tablet Take 1 tablet by mouth once daily for 10 days. tamsulosin ER (FLOMAX) 0.4 mg cap Take 2 capsules by mouth daily at bedtime. metoprolol tartrate, short acting, (LOPRESSOR) 50 mg tablet Take 1 tablet by mouth twice daily. acetaminophen (TYLENOL) 325 mg tablet Take 2 tablets by mouth every 6 hours as needed. albuterol HFA (PROVENTIL HFA) 90 mcg/actuation inhaler Inhale 1-2 Puffs as instructed three times daily. clopidogrel (PLAVIX) 75 mg tablet Take 1 tablet by mouth once daily. magnesium oxide (MAG-OX) 400 mg (241.3 mg magnesium) tablet Take 1 tablet by mouth twice daily. melatonin 3 mg tablet Take 1 tablet by mouth at bedtime as needed (insomnia). metFORMIN ER (GLUCOPHAGE XR) 500 mg 24 hr tablet Take 1 tablet by mouth daily with breakfast. polyethylene glycol 3350 (MIRALAX, GLYCOLAX) 17 gram packet Take 1 Packet by mouth once daily as needed. potassium chloride ER (K-DUR, KLOR-CON) 20 mEq tablet Take one tablet by mouth three times daily for 3 days, then one tablet by mouth twice daily after that. warfarin (COUMADIN) 2.5 mg tablet Take 1 tablet by mouth once daily. simvastatin (ZOCOR) 40 mg tablet Take 1 tablet by mouth daily at bedtime. MULTIVITAMIN ORAL Take by mouth. No current facility-administered medications for this visit. Patient has no known allergies. PAST MEDICAL HISTORY Diagnosis Date - Acute on chronic diastolic heart failure (HCC) - Aortic valve stenosis - CAD (coronary artery disease) - Cerebrovascular disease 10/22/2018 - High blood pressure - HLD (hyperlipidemia) - NSTEMI (non-ST elevated myocardial infarction) ([facility]) - S/P AVR (aortic valve replacement) 10/29/2018 [facility] Trifecta pericardial prosthesis - S/P CABG x 3 10/29/2018 - Stroke (HCC) PAST SURGICAL HISTORY Procedure Laterality Date - CABG (3) VEIN GRAFTS AND ARTERIAL GRAFT(S) 10/29/2018 - CARDIAC CATH 10/21/2018 [facility] - REPLAC AORT VALV PROSTH VALV 10/29/2018 [facility] Trifecta pericardial prosthesis - TONSILLECTOMY AND ADENOIDECTOMY HX FAMILY HISTORY Problem Relation Age of Onset - Diabetes Father - Thyroid Sister - Cancer Mother thyroid - Diabetes Mother - Hypertension Mother Social History Tobacco Use - Smoking status: Never Smoker - Smokeless tobacco: Never Used Substance Use Topics - Alcohol use: No - Drug use: No Review of Systems Constitutional: Negative for chills, fever, malaise/fatigue and weight loss. HENT: Negative for sore throat. Respiratory: Positive for shortness of breath. Negative for cough, sputum production and wheezing. With exertion Cardiovascular: Positive for leg swelling. Negative for chest pain, palpitations, orthopnea, claudication and PND. Still about the same, not much change. Gastrointestinal: Negative for abdominal pain, blood in stool, constipation, diarrhea, melena, nausea and vomiting. Genitourinary: Negative for dysuria. Musculoskeletal: Negative for falls and joint pain. Skin: No new lesions Neurological: Negative for dizziness, tingling, sensory change, focal weakness, weakness and headaches. Endo/Heme/Allergies: Does not bruise/bleed easily. Psychiatric/Behavioral: Negative for depression. The patient has insomnia. Still no sleeping, primary doctor is not doing much either Objective: Patient is going to have CXR done on his way out today. No official read is posted yet, my interpretation is; improvement on the pleural effusion b/l. improvement on the aeration. Physical Examination: Vitals:BP 148/70 Pulse 96 Resp 20 Ht 5' 11 (1.80m) Wt 297 lb (134.7kg) SpO2 96% BMI 41.44 kg/(m2). Last 2 Encounter Wt Readings: Date: Wt: 11/22/2018 298 lb 11.2 oz (135.5 kg) 11/12/2018 303 lb (137.4 kg) Assessment and Plan: ASSESSMENT/PLAN: 1. S/P CABG (coronary artery bypass graft) - ICD9: V45.81, ICD10: Z95.1 (primary diagnosis) -c/w Statin 40 mg /metoprolol 50 mg BID/ NO ASA (since already on Pavix and Coumadin, no need on triple therapy) -c/w BB 50 mg for now as patient has one episode of SB with HR of 30s -C/W DIURESIS-Bumex up to 2 mg daily now with K-dur - BASIC METABOLIC PNL in 4-5 days - ECG today to recheck the rhythm 2. Fluid overload, unspecified - ICD9: 276.69, ICD10: E87.70 - responded well with Bumex 1 mg daily for 10 days, up to 2 mg daily with repeat BMP, Cr 1.11 with Bumex 1 mg on 11/19/2018 - BASIC METABOLIC PNL IN 4-5 DAYS 3. S/P AVR - ICD9: V43.3, ICD10: Z95.2 -post-op Echo: EF 75%, P/M gradients 7/5 DI 0.86 on 11/01/2018 -f/u with [facility]: Dr. Kebede on 12/06 -c/w diuresis: lasix change to Bumex 1 mg daily 2 weeks ago, now up to 2 mg -repeat BMP Saturday 12/02 4. Pleural effusion - ICD9: 511.9, ICD10: J90 -Bumex 2 mg daily starting today - BASIC METABOLIC PNL - CXR TODAY 5. Lower leg edema - ICD9: 782.3, ICD10: R60.0 -C/W EVANS and elevation - BASIC METABOLIC PNL in 4-5 days -f/u in 2 weeks -f/u with Dr. Kebede for CHF management 6. Paroxysmal atrial fibrillation (HCC) - ICD9: 427.31, ICD10: I48.0 -c/w BB 50 mg BID WELL Coumadin - ECG COMPLETE In summary, Patient is doing well overall after the MCABG sugery, with current complaints of persistent insomnia, leg edema and mild SOB. We would like patient to f/u in 2 week again after the increased dose of Bumex as he is responding well at this point without elevating his Cr, we will repeat BMP in 4-5 days (via VNS). Patient would be considered to release to start cardiac rehab likely after the next visit. he should follow up with his natural resources specialist and PCP as scheduled. Electronically signed by Flakita Baker APRN.CNP on November 26, 2018, 2:49 PM Normal [facility] Basic Panelon 11-20-2018 Creatinine [Mass/Vol] 1.11 mg/dL Normal 0.67-1.17 [facility] Comment on above: Performed By: #### P HOS #### [facility] [address], [place] [address] Anion gap [Moles/Vol] 14 mmol/L Normal 8-16 [facility] Comment on above: Performed By: #### P HOS #### [address] [address] Calcium [Mass/Vol] 8.6 mg/dL Normal 8.5-10.1 [facility] Comment on above: Performed By: #### P HOS #### [address] [address] CO2 [Moles/Vol] 24 mmol/L Normal 21-32 [facility] Comment on above: Performed By: #### P HOS #### [facility] [address], [place] [address] Glucose [Mass/Vol] 113 mg/dL High 70-99 [facility] Comment on above: Performed By: #### P HOS #### [facility] [address] [place], [place] [address] Urea nitrogen [Mass/Vol] 21 mg/dL High 7-18 [facility] Comment on above: Performed By: #### P HOS #### [facility] [address] [place], [place] [address] Chloride [Moles/Vol] 106 mmol/L Normal 98-107 [facility] Comment on above: Performed By: #### P HOS #### [facility] [address] [place], [place] [address] Potassium [Moles/Vol] 4.7 mmol/L Normal 3.5-5.1 [facility] Comment on above: Performed By: #### P HOS #### [facility] [address] [place], [place] [address] Sodium [Moles/Vol] 139 mmol/L Normal 136-145 [facility] Comment on above: Performed By: #### P HOS #### [facility] [address] [place], [place] [address] MDRD GFRon 11-20-2018 GFR/1.73 sq M predicted among non-blacks MDRD (S/P/Bld) [Vol rate/Area] mL/min/{1.73_m2} Normal >60mL/min/1 .73m2 [facility] Comment on above: Result Comment: If t he patient is , multiply the result by 1.210. Performed By: #### P HOS #### [facility] [address] [place], [place] [address] CNOVon 11-12-2018 CNOV Office Visit ([facility]) -------- HARRISON MILLIGAN ([id number]) 1940 M Date Time Provider Department 11/12/18 3:00 PM FLAKITA BAKER (SHERI) CLAUDIA During your visit today, we recorded the following information about you: Pulse Respiration Blood pressure Weight 96/minute 18/minute 140/70 137.4 kg Height 1.803 m Flakita Baker APRN.CNP, APRN.CNP 11/12/2018 5:00 PM Signed HPI:Harrison Milligan is a 78 year old male that returns to the office today for one week post-discharge follow up NSTEMI and Aortic stenosis for s/p combined CABG x 3 (ramos-lad; svg-diag; svg-om; evh); AVR (23 Trifecta pericardial) performed on 10/29/2018. His post-op recovery was complicated by anticipated acute respiratory insufficiency due to morbid obesity/restrictive lung disease; metabolic acidosis; acute urinary retention required cedeno reinsertion and urologist consult; atrial fibrillation on POD #4, then POD #6 required coumadin for anticoagulant . He was discharged on 11/06/2018 to home with [facility]. Mr. Milligan returns today for his 1 week visit reports failing voiding trial at [facility] 11/11 required Cedeno re-inserted. Harrison Milligan reports home recovery as listed below: Episodes of dizziness or syncope: yes, when changed positions chest pain: no Palpitations: no BP: controlled per home lo/60 average, HR 60 to mid 60s Tolerating diet well without changing bowel habits: yes Fever, chills: no Activities at home with/without SOB or WOLF: walks not very frequent, some SOB with activities Post surgical pain with pain medications more at night for comfort. Leg edema: not much change from hospitalization, more redness noted, Subjective: Current Outpatient Medications: acetaminophen (TYLENOL) 325 mg tablet Take 2 tablets by mouth every 6 hours as needed. albuterol HFA (PROVENTIL HFA) 90 mcg/actuation inhaler Inhale 1-2 Puffs as instructed three times daily. clopidogrel (PLAVIX) 75 mg tablet Take 1 tablet by mouth once daily. furosemide (LASIX) 40 mg tablet Take 1 tablet by mouth twice daily for 3 days, then 1 tablet daily after that. magnesium oxide (MAG-OX) 400 mg (241.3 mg magnesium) tablet Take 1 tablet by mouth twice daily. melatonin 3 mg tablet Take 1 tablet by mouth at bedtime as needed (insomnia). metFORMIN ER (GLUCOPHAGE XR) 500 mg 24 hr tablet Take 1 tablet by mouth daily with breakfast. metoprolol tartrate, short acting, (LOPRESSOR) 50 mg tablet Take 1.5 tablets by mouth every 8 hours. oxyCODONE-acetaminophen (PERCOCET) 5-325 mg tablet Take 1 tablet by mouth every 6 hours as needed (moderate to severe pain) for up to 7 days.Earliest Fill Date: 11/06/18 polyethylene glycol 3350 (MIRALAX, GLYCOLAX) 17 gram packet Take 1 Packet by mouth once daily as needed. potassium chloride ER (K-DUR, KLOR-CON) 20 mEq tablet Take one tablet by mouth three times daily for 3 days, then one tablet by mouth twice daily after that. warfarin (COUMADIN) 2.5 mg tablet Take 1 tablet by mouth once daily. tamsulosin ER (FLOMAX) 0.4 mg cap Take 1 capsule by mouth daily at bedtime. simvastatin (ZOCOR) 40 mg tablet Take 1 tablet by mouth daily at bedtime. MULTIVITAMIN ORAL Take by mouth. No current facility-administered medications for this visit. Patient has no known allergies. PAST MEDICAL HISTORY Diagnosis Date - Acute on chronic diastolic heart failure (HCC) - Aortic valve stenosis - CAD (coronary artery disease) - Cerebrovascular disease 10/22/2018 - High blood pressure - HLD (hyperlipidemia) - NSTEMI (non-ST elevated myocardial infarction) ([facility]) - S/P AVR (aortic valve replacement) 10/29/2018 [facility] Trifecta pericardial prosthesis - S/P CABG x 3 10/29/2018 - Stroke ([facility]) PAST SURGICAL HISTORY Procedure Laterality Date - CABG (3) VEIN GRAFTS AND ARTERIAL GRAFT(S) 10/29/2018 - CARDIAC CATH 10/21/2018 [facility] - REPLAC AORT VALV PROSTH VALV 10/29/2018 [facility] Trifecta pericardial prosthesis - TONSILLECTOMY AND ADENOIDECTOMY HX FAMILY HISTORY Problem Relation Age of Onset - Diabetes Father - Thyroid Sister - Cancer Mother thyroid - Diabetes Mother - Hypertension Mother Social History Tobacco Use - Smoking status: Never Smoker - Smokeless tobacco: Never Used Substance Use Topics - Alcohol use: No - Drug use: No Review of Systems Constitutional: Negative for chills, fever, malaise/fatigue and weight loss. HENT: Negative for sore throat. Respiratory: Positive for shortness of breath. Negative for cough, sputum production and wheezing. With exertion Cardiovascular: Positive for leg swelling. Negative for chest pain, palpitations, orthopnea, claudication and PND. Not much changed since home Gastrointestinal: Negative for abdominal pain, blood in stool, constipation, diarrhea, melena, nausea and vomiting. Genitourinary: Positive for dysuria. Failed voiding trial yesterday and needed to have cedeno placed back in Musculoskeletal: Negative for falls and joint pain. Skin: No new lesions Neurological: Negative for dizziness, tingling, sensory change, focal weakness, weakness and headaches. Endo/Heme/Allergies: Does not bruise/bleed easily. Psychiatric/Behavioral: Positive for depression. The patient has insomnia. Unable to describe exactly but feeling that I am not to make it one night. Has not been able to sleep for nights. Objective: Physical Examination: Vitals:BP 140/70 Pulse 96 Resp 18 Ht 5' 11 (1.80m) Wt 303 lb (137.4kg) SpO2 93% BMI 42.28 kg/(m2). Last 2 Encounter Wt Readings: Date: Wt: 10/22/2018 304 lb 8 oz (138.1 kg) 05/09/2018 310 lb 6.4 oz (140.8 kg) Physical Exam Constitutional: He is oriented to person, place, and time and well-developed, well-nourished, and in no distress. He appears not dehydrated. He appears healthy. He does not have a sickly appearance. No distress. HENT: Head: Normocephalic. Mouth/Throat: No oropharyngeal exudate. Neck: Normal range of motion. No hepatojugular reflux and no JVD present. Carotid bruit is not present. No edema and no erythema present. Cardiovascular: Normal rate, regular rhythm, S1 normal, S2 normal, normal heart sounds and intact distal pulses. PMI is not displaced. Exam reveals no gallop, no S3, no S4, no distant heart sounds, no friction rub and no decreased pulses. No murmur heard. Pulmonary/Chest: Effort normal and breath sounds normal. No respiratory distress. He has no wheezes. He has no rhonchi. He has no rales. He exhibits no tenderness. Sternal stability is normal. Abdominal: Soft. Bowel sounds are normal. He exhibits no distension and no mass. There is no tenderness. There is no rebound and no guarding. Musculoskeletal: Normal range of motion. He exhibits edema. He exhibits no tenderness. Tight edematous LLL, +1 RLL Neurological: He is alert and oriented to person, place, and time. Gait normal. Skin: Skin is warm and dry. No bruising, no lesion, no petechiae and no rash noted. He is not diaphoretic. There is erythema. No cyanosis. No pallor. Sternal incision is healing, well approximated with scabs and skin glue flaking off. No drainage, redness or foul odor. Same presentation appears on the chest tube wounds. SVG harvest site incision is healing, well approximated with scabs and skin glue flaking off. No drainage, or foul odor. Diffused erythematous discoloration noticed on the left lower leg. A big empty blister noted on dorsal left foot. Psychiatric: Mood and affect normal. Nursing note and vitals reviewed. Assessment and Plan: 1. Transfusion associated circulatory overload - ICD9: 276.61, ICD10: E87.71 (primary diagnosis) - c/w diuresis: changed from Lasix to Bumex 1 mg daily - BASIC METABOLIC PNL in 3 days, VNS to check at home, if not, [facility] lab 2. S/P CABG (coronary artery bypass graft) - ICD9: V45.81, ICD10: Z95.1 -c/w current regimens: Statin 40 mg /metoprolol 75 mg TID/ NO ASA (since already on Pavix and Coumadin, no need on triple therapy) -c/w Keflex until completion -c/w diuresis 3. S/P AVR - ICD9: V43.3, ICD10: Z95.2 -post-op Echo: EF 75%, P/M gradients 7/5 DI 0.86 -f/u with [facility]: Dr. Kebede -c/w diuresis : lasix change to Bumex 1 mg daily, BMP in 3 days 4. Pleural effusion - ICD9: 511.9, ICD10: J90 - Bumex 1 mg daily -f/u in 2 weeks 5. Lower leg edema - ICD9: 782.3, ICD10: R60.0 - Bumex 1 mg daily -f/u in 2 weeks -elevated, EVANS wrap 6. Depressed affect - ICD9: 311, ICD10: R45.89 - OTC sleep aid - defer to PCP for post-op anti depression management 7. Urinary retention -c/w catheter management - f/u [facility] in 1 week for possible repeat voiding trail In summary, Patient is doing well overall after the MCABG sugery, with current complaints of insomnia, leg edema, and mils SOB. We would like to have patient follow up in 2 weeks after trailing out the Bumex, check BMP in 3 days. Patient and family are all instructed on the medications changes. Electronically signed by Flakita Baker APRN.CNP on November 12, 2018, 3:04 PM Flakita Baker APRN.CNP, APRN.CNP 11/12/2018 4:17 PM Signed Weight: Please continue monitoring daily weight; Activity:Continue gradual increase in activity as tolerated; Diet: Heart healthy diet with good protein intake; Devices: Wear supportive stockings and posthorax vest during daytime and off at nighttime; Restrictions: Continue the weight limit to less than 10 lbs, and no driving until cleared by your providers; Advice: please change position slowly to prevent fall due to dizziness; Please stop Lasix, change to Bumex 1 mg daily for now. Blood work in 3 days to check kidney numbers Continue taking Potassium 20 mEq twice a day Contact Dr. Yarbrough for evaluation on depression Take over the counter Melatonin or Benadryl PM for sleep aid Warp the legs with EVANS band and keep leges elevated Contact Dr. Kebede office for f/u visit for heart failure management Focus on good protein intake, low salt diet. Thanks for coming in to see us today. Please call us if you have any concerns/questions: [phone] Flakita Baker APRN.CNP Referring Provider: SELF [[id number]] Allergies As of Date: 11/12/2018 (No Known Allergies) Date Reviewed: 11/12/2018 Reviewed by: Kaylie Waddell LPN - Fully Assessed Reason for Visit: Post Op [174] Cmt: 10/29/18 MCABG AND AVR Primary Visit Diagnosis:Transfusion associated circulatory overload [E87.71] Other Visit Diagnoses:S/P CABG (coronary artery bypass graft) [Z95.1] S/P AVR [Z95.2] Pleural effusion [J90] Lower leg edema [R60.0] Depressed affect [R45.89] Acute urinary retention [R33.8] Order(s):BASIC METABOLIC PNL [SQBMP] Order #: [id number] FUTURE bumetanide (BUMEX) 1 mg tabletTake 1 tablet by mouth once daily for 10 days.Disp: 10 tabletRfl: 0 XR CHEST 2V FRONTAL/LAT [[id number]] Order #: [id number] FUTURE Prescriptions as of 11/12/2018 Sig: ACETAMINOPHEN 325 MG TABLET Take 2 tablets by mouth every* ALBUTEROL SULFATE HFA 90 MCG/* Inhale 1-2 Puffs as instructe* CLOPIDOGREL 75 MG TABLET Take 1 tablet by mouth once d* MAGNESIUM OXIDE 400 MG (241.3* Take 1 tablet by mouth twice * MELATONIN 3 MG TABLET Take 1 tablet by mouth at bed* METFORMIN ER 500 MG TABLET,EX* Take 1 tablet by mouth daily * METOPROLOL TARTRATE 50 MG TAB* Take 1.5 tablets by mouth zeus* OXYCODONE-ACETAMINOPHEN 5 MG-* Take 1 tablet by mouth every * POLYETHYLENE GLYCOL 3350 17 G* Take 1 Packet by mouth once d* POTASSIUM CHLORIDE ER 20 MEQ * Take one tablet by mouth thre* WARFARIN 2.5 MG TABLET Take 1 tablet by mouth once d* TAMSULOSIN 0.4 MG CAPSULE Take 1 capsule by mouth daily* SIMVASTATIN 40 MG TABLET Take 1 tablet by mouth daily * MULTIVITAMIN ORAL Take by mouth. BUMETANIDE 1 MG TABLET Take 1 tablet by mouth once d* Problem List As Of Date 11/12/2018 Noted Resolved Ataxia S/P CVA [I69.993] INVALID FOR* Essential hypertension [I10] INVALID FOR* Mixed hyperlipidemia [E78.2] INVALID FOR* History of stroke [Z86.73] INVALID FOR* BMI 40.0-44.9, adult (HCC) [Z68.41] INVALID FOR* CAD (coronary artery disease) [I25.10] INVALID FOR* NSTEMI (non-ST elevated myocardial infarction) *INVALID FOR* Cerebrovascular disease [I67.9] INVALID FOR* Aortic stenosis [I35.0] INVALID FOR* S/P CABG (coronary artery bypass graft) [Z95.1] INVALID FOR* S/P AVR [Z95.2] INVALID FOR* Acute urinary retention [R33.8] INVALID FOR* Other instructions from your clinician: Weight: Please continue monitoring daily weight; Activity:Continue gradual increase in activity as tolerated; Diet: Heart healthy diet with good protein intake; Devices: Wear supportive stockings and posthorax vest during daytime and off at nighttime; Restrictions: Continue the weight limit to less than 10 lbs, and no driving until cleared by your providers; Advice: please change position slowly to prevent fall due to dizziness; Please stop Lasix, change to Bumex 1 mg daily for now. Blood work in 3 days to check kidney numbers Continue taking Potassium 20 mEq twice a day Contact Dr. Yarbrough for evaluation on depression Take over the counter Melatonin or Benadryl PM for sleep aid Warp the legs with EVANS band and keep leges elevated Contact Dr. Kebede office for f/u visit for heart failure management Focus on good protein intake, low salt diet. Thanks for coming in to see us today. Please call us if you have any concerns/questions: [phone] Flakita Baker APRN.SHERI Prescriptions ordered this encounter Disp Refills Start End BUMETANIDE 1 MG TABLET 10 t* 0 11/12/2018 11/22/2018 Route: ORAL Sig: Take 1 tablet by mouth once daily for 10 days. Medications Discontinued During This Encounter furosemide (LASIX) 40 mg tablet 33 t* 0 11/06/2018 11/12/2018 Class: Print RX Sig: Take 1 tablet by mouth twice daily for 3 days, then 1 tablet daily after that. Disc: Course of therapy completed Disposition: Return in about 2 weeks (around 11/26/2018). Follow-up and Disposition History Recorded Letter Text Encounter Status:Closed by FLAKITA BAKER CNP on 11/12/18 [facility] PROGRESSon 11-12-2018 PROGRESS HNO ID: [id number] Author: Flakita (Sheri) TITA Baker.SHERI Service: ? Author Type: Nurse Practitioner Type: Progress Notes Filed: 11/12/2018 5:00 PM Note Text: HPI:Harrison Milligan is a 78 year old male that returns to the office today for one week post-discharge follow up NSTEMI and Aortic stenosis for s/p combined CABG x 3 (ramos-lad; svg-diag; svg-om; evh); AVR (23 Trifecta pericardial) performed on 10/29/2018. His post-op recovery was complicated by anticipated acute respiratory insufficiency due to morbid obesity/restrictive lung disease; metabolic acidosis; acute urinary retention required cedeno reinsertion and urologist consult; atrial fibrillation on POD #4, then POD #6 required coumadin for anticoagulant . He was discharged on 11/06/2018 to home with [facility]. Mr. Milligan returns today for his 1 week visit reports failing voiding trial at [facility] 11/11 required Cedeno re-inserted. Harrison Milligan reports home recovery as listed below: Episodes of dizziness or syncope: yes, when changed positions chest pain: no Palpitations: no BP: controlled per home lo/60 average, HR 60 to mid 60s Tolerating diet well without changing bowel habits: yes Fever, chills: no Activities at home with/without SOB or WOLF: walks not very frequent, some SOB with activities Post surgical pain with pain medications more at night for comfort. Leg edema: not much change from hospitalization, more redness noted, Subjective: Current Outpatient Medications: acetaminophen (TYLENOL) 325 mg tablet Take 2 tablets by mouth every 6 hours as needed. albuterol HFA (PROVENTIL HFA) 90 mcg/actuation inhaler Inhale 1-2 Puffs as instructed three times daily. clopidogrel (PLAVIX) 75 mg tablet Take 1 tablet by mouth once daily. furosemide (LASIX) 40 mg tablet Take 1 tablet by mouth twice daily for 3 days, then 1 tablet daily after that. magnesium oxide (MAG-OX) 400 mg (241.3 mg magnesium) tablet Take 1 tablet by mouth twice daily. melatonin 3 mg tablet Take 1 tablet by mouth at bedtime as needed (insomnia). metFORMIN ER (GLUCOPHAGE XR) 500 mg 24 hr tablet Take 1 tablet by mouth daily with breakfast. metoprolol tartrate, short acting, (LOPRESSOR) 50 mg tablet Take 1.5 tablets by mouth every 8 hours. oxyCODONE-acetaminophen (PERCOCET) 5-325 mg tablet Take 1 tablet by mouth every 6 hours as needed (moderate to severe pain) for up to 7 days.Earliest Fill Date: 11/06/18 polyethylene glycol 3350 (MIRALAX, GLYCOLAX) 17 gram packet Take 1 Packet by mouth once daily as needed. potassium chloride ER (K-DUR, KLOR-CON) 20 mEq tablet Take one tablet by mouth three times daily for 3 days, then one tablet by mouth twice daily after that. warfarin (COUMADIN) 2.5 mg tablet Take 1 tablet by mouth once daily. tamsulosin ER (FLOMAX) 0.4 mg cap Take 1 capsule by mouth daily at bedtime. simvastatin (ZOCOR) 40 mg tablet Take 1 tablet by mouth daily at bedtime. MULTIVITAMIN ORAL Take by mouth. No current facility-administered medications for this visit. Patient has no known allergies. PAST MEDICAL HISTORY Diagnosis Date - Acute on chronic diastolic heart failure (HCC) - Aortic valve stenosis - CAD (coronary artery disease) - Cerebrovascular disease 10/22/2018 - High blood pressure - HLD (hyperlipidemia) - NSTEMI (non-ST elevated myocardial infarction) (HCC) - S/P AVR (aortic valve replacement) 10/29/2018 [facility] pericardial prosthesis - S/P CABG x 3 10/29/2018 - Stroke (HCC) PAST SURGICAL HISTORY Procedure Laterality Date - CABG (3) VEIN GRAFTS AND ARTERIAL GRAFT(S) 10/29/2018 - CARDIAC CATH 10/21/2018 [facility] - REPLAC AORT VALV PROSTH VALV 10/29/2018 [facility] Trifecta pericardial prosthesis - TONSILLECTOMY AND ADENOIDECTOMY HX FAMILY HISTORY Problem Relation Age of Onset - Diabetes Father - Thyroid Sister - Cancer Mother thyroid - Diabetes Mother - Hypertension Mother Social History Tobacco Use - Smoking status: Never Smoker - Smokeless tobacco: Never Used Substance Use Topics - Alcohol use: No - Drug use: No Review of Systems Constitutional: Negative for chills, fever, malaise/fatigue and weight loss. HENT: Negative for sore throat. Respiratory: Positive for shortness of breath. Negative for cough, sputum production and wheezing. With exertion Cardiovascular: Positive for leg swelling. Negative for chest pain, palpitations, orthopnea, claudication and PND. Not much changed since home Gastrointestinal: Negative for abdominal pain, blood in stool, constipation, diarrhea, melena, nausea and vomiting. Genitourinary: Positive for dysuria. Failed voiding trial yesterday and needed to have cedeno placed back in Musculoskeletal: Negative for falls and joint pain. Skin: No new lesions Neurological: Negative for dizziness, tingling, sensory change, focal weakness, weakness and headaches. Endo/Heme/Allergies: Does not bruise/bleed easily. Psychiatric/Behavioral: Positive for depression. The patient has insomnia. Unable to describe exactly but feeling that I am not to make it one night. Has not been able to sleep for nights. Objective: Physical Examination: Vitals:BP 140/70 Pulse 96 Resp 18 Ht 5' 11 (1.80m) Wt 303 lb (137.4kg) SpO2 93% BMI 42.28 kg/(m2). Last 2 Encounter Wt Readings: Date: Wt: 10/22/2018 304 lb 8 oz (138.1 kg) 05/09/2018 310 lb 6.4 oz (140.8 kg) Physical Exam Constitutional: He is oriented to person, place, and time and well-developed, well-nourished, and in no distress. He appears not dehydrated. He appears healthy. He does not have a sickly appearance. No distress. HENT: Head: Normocephalic. Mouth/Throat: No oropharyngeal exudate. Neck: Normal range of motion. No hepatojugular reflux and no JVD present. Carotid bruit is not present. No edema and no erythema present. Cardiovascular: Normal rate, regular rhythm, S1 normal, S2 normal, normal heart sounds and intact distal pulses. PMI is not displaced. Exam reveals no gallop, no S3, no S4, no distant heart sounds, no friction rub and no decreased pulses. No murmur heard. Pulmonary/Chest: Effort normal and breath sounds normal. No respiratory distress. He has no wheezes. He has no rhonchi. He has no rales. He exhibits no tenderness. Sternal stability is normal. Abdominal: Soft. Bowel sounds are normal. He exhibits no distension and no mass. There is no tenderness. There is no rebound and no guarding. Musculoskeletal: Normal range of motion. He exhibits edema. He exhibits no tenderness. Tight edematous LLL, +1 RLL Neurological: He is alert and oriented to person, place, and time. Gait normal. Skin: Skin is warm and dry. No bruising, no lesion, no petechiae and no rash noted. He is not diaphoretic. There is erythema. No cyanosis. No pallor. Sternal incision is healing, well approximated with scabs and skin glue flaking off. No drainage, redness or foul odor. Same presentation appears on the chest tube wounds. SVG harvest site incision is healing, well approximated with scabs and skin glue flaking off. No drainage, or foul odor. Diffused erythematous discoloration noticed on the left lower leg. A big empty blister noted on dorsal left foot. Psychiatric: Mood and affect normal. Nursing note and vitals reviewed. Assessment and Plan: 1. Transfusion associated circulatory overload - ICD9: 276.61, ICD10: E87.71 (primary diagnosis) - c/w diuresis: changed from Lasix to Bumex 1 mg daily - BASIC METABOLIC PNL in 3 days, VNS to check at home, if not, [facility] lab 2. S/P CABG (coronary artery bypass graft) - ICD9: V45.81, ICD10: Z95.1 -c/w current regimens: Statin 40 mg /metoprolol 75 mg TID/ NO ASA (since already on Pavix and Coumadin, no need on triple therapy) -c/w Keflex until completion -c/w diuresis 3. S/P AVR - ICD9: V43.3, ICD10: Z95.2 -post-op Echo: EF 75%, P/M gradients 7/5 DI 0.86 -f/u with [facility] natural resources specialist: Dr. Kebede -c/w diuresis : lasix change to Bumex 1 mg daily, BMP in 3 days 4. Pleural effusion - ICD9: 511.9, ICD10: J90 - Bumex 1 mg daily -f/u in 2 weeks 5. Lower leg edema - ICD9: 782.3, ICD10: R60.0 - Bumex 1 mg daily -f/u in 2 weeks -elevated, EVANS wrap 6. Depressed affect - ICD9: 311, ICD10: R45.89 - OTC sleep aid - defer to PCP for post-op anti depression management 7. Urinary retention -c/w catheter management - f/u [facility] Uronologist in 1 week for possible repeat voiding trail In summary, Patient is doing well overall after the MCABG sugery, with current complaints of insomnia, leg edema, and mils SOB. We would like to have patient follow up in 2 weeks after trailing out the Bumex, check BMP in 3 days. Patient and family are all instructed on the medications changes. Electronically signed by Flakita Baker APRN.CNP on November 12, 2018, 3:04 PM Normal [facility] CNPNon 11-09-2018 [place]ER[place] Telephone ([facility]) -------- HARRISON MILLIGAN ([id number]) 1940 M Date Time Provider Department 11/09/18 [facility] During your visit today, we recorded the following information about you: Malgorzata Mcleod MD 11/09/2018 12:40 PM Signed Patient's called today about redness over calf on vein harvest leg not involving incision and said visiting nurse saw yesterday and said cellulitis, but apparently didn't notify our office or AUTOMATED PROCESS OPERATOR's!!! No fever, always cold. requesting antibiotics and has office appt and was advised to move up to Sun but busy with urologist appt Sun! Called in Keflex and AUTOMATED PROCESS OPERATOR will call and check on Sun and adjust F/U appt accordingly. Keflex 500mg q8hrs X 10 days. Flakita Baker APRN.ELOINA ASTORGA 11/11/2018 11:13 AM Signed Called to follow up with patient/, who stated that the redness is slightly better. She would like to f/u on Sunday as she has other appointments to go today. I advised her to continue wrapping that LLL with EVANS band and keep elevated when not using it. Patient/ appreciated the call. Will evaluate patient tomorrow as scheduled. Patient is reminded to have his lab done for the visit. Flakita Baker APRN.CNP Allergies As of Date: 11/09/2018 (No Known Allergies) Date Reviewed: 11/06/2018 Reviewed by: Iram (Rn) LOKESH Post - Fully Assessed Reason for Visit: Edema [39] Prescriptions as of 11/09/2018 Sig: ACETAMINOPHEN 325 MG TABLET Take 2 tablets by mouth every* ALBUTEROL SULFATE HFA 90 MCG/* Inhale 1-2 Puffs as instructe* CLOPIDOGREL 75 MG TABLET Take 1 tablet by mouth once d* FUROSEMIDE 40 MG TABLET Take 1 tablet by mouth twice * MAGNESIUM OXIDE 400 MG (241.3* Take 1 tablet by mouth twice * MELATONIN 3 MG TABLET Take 1 tablet by mouth at bed* METFORMIN ER 500 MG TABLET,EX* Take 1 tablet by mouth daily * METOPROLOL TARTRATE 50 MG TAB* Take 1.5 tablets by mouth zeus* OXYCODONE-ACETAMINOPHEN 5 MG-* Take 1 tablet by mouth every * POLYETHYLENE GLYCOL 3350 17 G* Take 1 Packet by mouth once d* POTASSIUM CHLORIDE ER 20 MEQ * Take one tablet by mouth thre* WARFARIN 2.5 MG TABLET Take 1 tablet by mouth once d* TAMSULOSIN 0.4 MG CAPSULE Take 1 capsule by mouth daily* SIMVASTATIN 40 MG TABLET Take 1 tablet by mouth daily * MULTIVITAMIN ORAL Take by mouth. Problem List As Of Date 11/09/2018 Noted Resolved Ataxia S/P CVA [I69.993] INVALID FOR* Essential hypertension [I10] INVALID FOR* Mixed hyperlipidemia [E78.2] INVALID FOR* History of stroke [Z86.73] INVALID FOR* BMI 40.0-44.9, adult (HCC) [Z68.41] INVALID FOR* CAD (coronary artery disease) [I25.10] INVALID FOR* NSTEMI (non-ST elevated myocardial infarction) *INVALID FOR* Cerebrovascular disease [I67.9] INVALID FOR* Aortic stenosis [I35.0] INVALID FOR* S/P CABG (coronary artery bypass graft) [Z95.1] INVALID FOR* S/P AVR [Z95.2] INVALID FOR* Acute urinary retention [R33.8] INVALID FOR* Encounter Status:Closed by MALGORZATA MCLEOD MD on 11/09/18 Normal [facility] ALLIED HEALTHon 11-06-2018 ALLIED HEALTH HNO ID: [id number] Author: Lynn (Rn) LOKESH Smith Service: Home Care Services Author Type: Registered Nurse Type: Allied Health Filed: 11/06/2018 4:26 PM Note Text: SALES OUTFITTER NOTE SERVICE DATE: 11/06/2018 SERVICE TIME: 4:25 PM Discharge: Aware of Discharge home today Physician order placed for Home Care Services Home Care Agency: [facility] Start of care date: 11/08/18 Supplies ordered: N/A Patient/Family agree to discharge plan: Yes SIGNATURE: Lynn Smith RN PATIENT NAME: Harrison Milligan DATE: November 06, 2018 TIME: 4:25 PM Normal [facility] Basic Panelon 11-06-2018 Creatinine [Mass/Vol] 1.18 mg/dL High 0.67-1.17 [facility] Comment on above: Performed By: #### P HOS #### [place] [address] Anion gap [Moles/Vol] 12 mmol/L Normal 8-16 [facility] Comment on above: Performed By: #### P HOS #### [facility] [address] [place], [place] [address] CO2 [Moles/Vol] 26 mmol/L Normal 21-32 [facility] Comment on above: Performed By: #### P HOS #### [facility] [address] [place], [place] [address] Urea nitrogen [Mass/Vol] 25 mg/dL High 7-18 [facility] Comment on above: Performed By: #### P HOS #### [facility] [address] [place], [place] [address] Calcium [Mass/Vol] 8.5 mg/dL Normal 8.5-10.1 [facility] Comment on above: Performed By: #### P HOS #### [facility] [address] [place] [address] Glucose [Mass/Vol] 104 mg/dL High 70-99 [facility] Comment on above: Performed By: #### P HOS #### [facility] [address] [place] [address] Chloride [Moles/Vol] 102 mmol/L Normal 98-107 [facility] Comment on above: Performed By: #### P HOS #### [facility] [address] [place], [place] [address] Potassium [Moles/Vol] 3.9 mmol/L Normal 3.5-5.1 [facility] Comment on above: Performed By: #### P HOS #### [facility] [address] [place] [address] Sodium [Moles/Vol] 136 mmol/L Normal 136-145 [facility] Comment on above: Performed By: #### P HOS #### [facility] [address] [place] [address] CASE MANAGEMon 11-06-2018 CASE MANAGEM HNO ID: [id number] Author: Tiffanie LeachRn) LOKESH Florez Service: Care Management Author Type: Registered Nurse Type: Care Mgt Progress Note Filed: 11/06/2018 3:55 PM Note Text: CARE MANAGEMENT DISCHARGE NOTE SERVICE DATE: 11/06/2018 SERVICE TIME: 3:55 PM LOS: 15 days Admission Date: 10/22/2018 DISCHARGE ARRANGEMENT (list agency and phone number) Home Home Care - Nursing, PT and OT Provider: RYAN CAREGIVER ASSESSMENT: Caregiver is ready, willing and able to meet the patient's needs as recommended by the inter-professional team? Yes Patient's transition needs and plan for meeting these needs: home [facility] Does the patient have an acute stroke diagnosis, or has the patient had a stroke during this admission? No HANDOFF COMMUNICATION: [facility] able to accept TRANSPORTATION ARRANGEMENTS: Car family ADDITIONAL CONTACT RESOURCES: SIGNATURE: Tiffanie Florez RN PATIENT NAME: Harrison Milligan DATE: November 06, 2018 TIME: 3:55 PM PAGER/CONTACT #: [phone] [facility] Amalia 11-06-2018 [place] Telephone ([facility]) -------- HARRISON MILLIGAN ([id number]) 1940 M Date Time Provider Department 11/06/18 FLAKITA BAKER) CLAUDIA During your visit today, we recorded the following information about you: Denise Boles 11/06/2018 11:37 AM Signed Message Received: Today Message Contents Flakita Baker APRN.EXECUTIVE CREATIVE DIRECTOR [facility] Clerical Pool Cc: [facility] Clinical Pool ? Please schedule patient to f/u with me on Sunday 11/12 for AVR+CABG. He would need to be called with confirmed time. Abena/Malgorzata: He would likely have Pao then. He would have BMP check and fax to us, could you make sure we have the result for the visit please? Thank you. His INR would be called to [facility]-. Harmony Boles 11/06/2018 11:37 AM Signed November 12 Arrive by 2:45 PMAppt at 3:00 PM (60 min) Flakita Baker APRN.SHERI POST OP LEWIS AG [facility]VS Patient currently admitted to [facility]. Will notify patient upon d/c. Denise Boles 11/07/2018 8:47 AM Signed Spoke with patient's , she is aware of appointment and agreeable. Denise Boles Allergies As of Date: 11/06/2018 (No Known Allergies) Date Reviewed: 11/06/2018 Reviewed by: Iram (Rn) LOKESH Post - Fully Assessed Reason for Visit: Hospital F/U [57] Prescriptions as of 11/06/2018 Sig: ACETAMINOPHEN 325 MG TABLET Take 2 tablets by mouth every* ALBUTEROL SULFATE HFA 90 MCG/* Inhale 1-2 Puffs as instructe* CLOPIDOGREL 75 MG TABLET Take 1 tablet by mouth once d* FUROSEMIDE 40 MG TABLET Take 1 tablet by mouth twice * MAGNESIUM OXIDE 400 MG (241.3* Take 1 tablet by mouth twice * MELATONIN 3 MG TABLET Take 1 tablet by mouth at bed* METFORMIN ER 500 MG TABLET,EX* Take 1 tablet by mouth daily * METOPROLOL TARTRATE 50 MG TAB* Take 1.5 tablets by mouth zeus* OXYCODONE-ACETAMINOPHEN 5 MG-* Take 1 tablet by mouth every * POLYETHYLENE GLYCOL 3350 17 G* Take 1 Packet by mouth once d* POTASSIUM CHLORIDE ER 20 MEQ * Take one tablet by mouth thre* TAMSULOSIN 0.4 MG CAPSULE Take 1 capsule by mouth daily* SIMVASTATIN 40 MG TABLET Take 1 tablet by mouth daily * MULTIVITAMIN ORAL Take by mouth. Problem List As Of Date 11/06/2018 Noted Resolved Ataxia S/P CVA [I69.993] INVALID FOR* Essential hypertension [I10] INVALID FOR* Mixed hyperlipidemia [E78.2] INVALID FOR* History of stroke [Z86.73] INVALID FOR* BMI 40.0-44.9, adult (HCC) [Z68.41] INVALID FOR* CAD (coronary artery disease) [I25.10] INVALID FOR* NSTEMI (non-ST elevated myocardial infarction) *INVALID FOR* Cerebrovascular disease [I67.9] INVALID FOR* Aortic stenosis [I35.0] INVALID FOR* S/P CABG (coronary artery bypass graft) [Z95.1] INVALID FOR* S/P AVR [Z95.2] INVALID FOR* Acute urinary retention [R33.8] INVALID FOR* Encounter Status:Closed by DENISE BOLES on 11/06/18 Normal [facility] MDRD GFRon 11-06-2018 GFR/1.73 sq M predicted among non-blacks MDRD (S/P/Bld) [Vol rate/Area] 59.75 mL/min/{1.73_m2} Normal >60mL/min/1 .73m2 [facility] Comment on above: Result Comment: If t he patient is , multiply the result by 1.210. Performed By: #### G FR #### [place] [address] PLAN OF CAREon 11-06-2018 PLAN OF CARE HNO ID: [id number] Author: Chapis Sandoval (Pharmacist) Service: Pharmacy Author Type: Pharmacist Type: Plan of Care Filed: 11/06/2018 2:20 PM Note Text: DISCHARGE MEDICATION REVIEW AND COUNSELING BY PHARMACY Patient Name: Harrison Milligan Account #: Data Unavailable Admission Date: 10/22/2018 Date of Contact: November 06, 2018 Time of Contact: 2:18 PM LEARNERS Persons Present: Patient Primary Learner: Patient Medication list was reviewed by a Pharmacist for drug interactions or drug related problems:Yes The patient was counseled on the medication(s) listed below and was given the opportunity to ask questions regarding indication, dosage, side effects and drug interactions READINESS TO LEARN COGNITIVE ABILITY:Alert and oriented MOTIVATION TO LEARN:Eager FAMILY SUPPORT:None - Unavailable/disintereste d INSTRUCTION PROVIDED TO:Spouse PATIENT LEARNS BEST BY:Individual Instruction Written Instruction - Hand-outs Verbal Instruction FACTORS AFFECTING LEARNING:None PHYSICAL LIMITATIONS AFFECTING LEARNING:None LEARNING RESPONSE PATIENT / FAMILY RESPONSE:Verbalizes understanding of: Accurate knowledge of prescribed medication prior to discharge. The correct action to take if medication dose is missed. The side effects associated with the medication that warrant a call to the physician. Post discharge follow up instruction I reviewed all medications with patients as pt is hard of hearing. Answered all of wifes questions as necessary. Reviewed all side effects and indications Are you interested in bedside delivery of your medications? No - was unwilling to wait To help improve their transition to home I offered to call in their 9 prescriptions to the pharmacy of their choice. She requested I call them into [facility] in [place]. CHAPIS SANDOVAL, PHARMACIST November 06, 2018 2:18 PM Medication List START taking these medications acetaminophen 325 mg tablet Commonly known as: TYLENOL Take 2 tablets by mouth every 6 hours as needed. albuterol HFA 90 mcg/actuation inhaler Commonly known as: PROVENTIL HFA Inhale 1-2 Puffs as instructed three times daily. clopidogrel 75 mg tablet Commonly known as: PLAVIX Take 1 tablet by mouth once daily. Start taking on: 11/07/2018 furosemide 40 mg tablet Commonly known as: LASIX Take 1 tablet by mouth twice daily for 3 days, then 1 tablet daily after that. magnesium oxide 400 mg (241.3 mg magnesium) tablet Commonly known as: MAG-OX Take 1 tablet by mouth twice daily. melatonin 3 mg tablet Take 1 tablet by mouth at bedtime as needed (insomnia). metFORMIN ER 500 mg 24 hr tablet Commonly known as: GLUCOPHAGE XR Take 1 tablet by mouth daily with breakfast. metoprolol tartrate (short acting) 50 mg tablet Commonly known as: LOPRESSOR Take 1.5 tablets by mouth every 8 hours. oxyCODONE-acetaminophen 5-325 mg tablet Commonly known as: PERCOCET Take 1 tablet by mouth every 6 hours as needed (moderate to severe pain) for up to 7 days. Earliest Fill Date: 11/06/18 polyethylene glycol 3350 17 gram packet Commonly known as: MIRALAX, GLYCOLAX Take 1 Packet by mouth once daily as needed. potassium chloride ER 20 mEq tablet Commonly known as: K-DUR, KLOR-CON Take one tablet by mouth three times daily for 3 days, then one tablet by mouth twice daily after that. tamsulosin ER 0.4 mg Cap Commonly known as: FLOMAX Take 1 capsule by mouth daily at bedtime. warfarin 2.5 mg tablet Commonly known as: COUMADIN Take 1 tablet by mouth once daily. CONTINUE taking these medications MULTIVITAMIN ORAL simvastatin 40 mg tablet Commonly known as: ZOCOR Take 1 tablet by mouth daily at bedtime. STOP taking these medications Aspirin 81 mg Tab Hydrochlorothiazide 12.5 mg capsule lisinopril 40 mg tablet Commonly known as: ZESTRIL, PRINIVIL Where to Get Your Medications These medications were sent to [facility] [address] [place] [phone] [facility] [phone] [place] [address] ? tamsulosin ER 0.4 mg Cap You can get these medications from any pharmacy Bring a paper prescription for each of these medications ? albuterol HFA 90 mcg/actuation inhaler ? clopidogrel 75 mg tablet ? furosemide 40 mg tablet ? magnesium oxide 400 mg (241.3 mg magnesium) tablet ? metFORMIN ER 500 mg 24 hr tablet ? metoprolol tartrate (short acting) 50 mg tablet ? oxyCODONE-acetaminophen 5-325 mg tablet ? potassium chloride ER 20 mEq tablet ? warfarin 2.5 mg tablet You don't need a prescription for these medications ? acetaminophen 325 mg tablet ? melatonin 3 mg tablet ? polyethylene glycol 3350 17 gram packet Normal [facility] PT EDon 11-06-2018 PT ED HNO ID: [id number] Author: Chapis Sandoval (Pharmacist) Service: Pharmacy Author Type: Pharmacist Type: Patient Education Filed: 11/06/2018 2:23 PM Note Text: PHARMACY WARFARIN EDUCATION Patient Name: Harrison Milligan Account #: Data Unavailable Admission Date: 10/22/2018 6:22 PM Date of Contact: November 06, 2018 Time of Contact: 2:20 PM Patient new to warfarin? Yes Outpatient follow-up plan: Follow-up with Physician: name: Harmony Baker Indication for warfarin: atrial fibrillation Target INR range: 2.0 - 3.0 (Target 2.5) Patient received full warfarin education. Initial patient education included: * Reason for taking warfarin * How warfarin works * What the INR test is, frequency of testing, and the importance of monitoring warfarin with scheduled PT/INR blood draws or finger sticks * Information about plans to monitor warfarin post-discharge was reviewed * When to take warfarin and what to do if a dose is missed * Identifying tablet(s) and to notify the doctor/anticoagulation clinic if there is a change in tablet color, shape, or markings * Drug interactions (Rx, OTC, herbal) and importance of notifying the doctor/anticoagulation clinic with any changes. * Do not take or discontinue any medication or over the counter medication except on the advice of the physician or pharmacist because certain medications can affect the PT/INR. * Potential duration of therapy * Signs/symptoms of bleeding and what to do if they occur because warfarin increases the risk of bleeding * Precautionary measures to decrease trauma/bleeding * Signs/symptoms of thrombosis and what to do if they occur * Need to limit or avoid EtOH consumption * Dietary considerations discussing that a ?consistent amount? of foods with vitamin K rather than avoidances should be advised and to avoid major changes in dietary habits, or notify health professional before changing habits because diet can affect the PT/INR * Carrying identification * Importance of notifying healthcare provider and [facility] when hospitalizations occur and when another healthcare provider has asked them to stop/hold warfarin before any procedure * Importance of notifying all healthcare providers they are taking warfarin * Use of control measures if applicable * The importance of taking warfarin as instructed and the potential ramifications of non- compliance were explained to the patient. The patient was provided ?Understanding the Anticoagulant Medication Warfarin? education booklet which includes the following : compliance Issues, dietary advice, follow-up with physician, follow- up monitoring, potential adverse drug reactions and interactions. READINESS TO LEARN COGNITIVE ABILITY: Alert and oriented MOTIVATION TO LEARN: Eager Interested FAMILY SUPPORT: High - Very involved in pt care Education was provided to INSTRUCTION PROVIDED TO: Spouse PATIENT LEARNS BEST BY: Individual Instruction Written Instruction - Hand-outs Verbal Instruction FACTORS AFFECTING LEARNING: None PHYSICAL LIMITATIONS AFFECTING LEARNING: None LEARNING RESPONSE DIAGNOSIS: SEE INDICATION(S) ABOVE PATIENT/FAMILY RESPONSE: Verbalizes understanding of: Accurate knowledge of prescribed medication prior to discharge. The correct action to take if medication dose is missed. The side effects associated with the medication that warrant a call to the physician. METHOD OF INSTRUCTION: Individual instruction SUPPLEMENTAL MATERIAL PROVIDED: Warfarin booklet: FURTHER RECOMMENDATIONS (if any) Follow up in 1 week for INR EVIDENCE OF LEARNING Outcomes met: Describes/able to restate information Outcomes not met: Needs further instruction Outpatient Follow-up: [facility] - Dr Kebede appeared overwhelmed.. Patient being discharged with 9 new medications that I also reviewed in detail. CHAPIS SANDOVAL, PHARMACIST Normal [facility] Protimeon 11-06-2018 INR Coag (PPP) [Relative time] 1.15 {INR} Normal 0.90-1.30 [facility] Comment on above: Result Comment: Note : Reference Range Change Vitamin K Antagonist (VKA) Therapeutic Range: INR 2 to 3 (Target INR of 2.5) Note: For patients treated with VKA drugs, such as warfarin, the [place] [employer] 2012 Guideline recommends a therapeutic INR range of 2 to 3 (target INR of 2.5). This recommendation includes high-risk patients with antiphospholipid syndrome with previous arterial or venous thromboembolism, current-generation mechanical or bioprosthetic aortic heart valve replacement. VKA Therapeutic Range for some Mechanical Valve Replacement: INR 2.5 to 3.5 (Target INR of 3) Note: Patients with mechanical aortic valve replacement and additional risk factors for thromboembolic events (atrial fibrillation, previous thromboembolism, LV dysfunction, hypercoagulable conditions) or an older generation mechanical AVR (i.e., ball in-Cage) or any mechanical MVR should have a INR therapeutic range of 2.5 to 3.5 target INR of 3). Jaime GH, et al. Chest 2012; 141:7S-47S Sebas RA et al. [facility] 2017; 70: 252-289 Performed By: #### P HOS #### [place] [address] PT Coag (PPP) [Time] 11.8 s Normal 9.7-13.0 [facility] Comment on above: Performed By: #### P HOS #### [place] [address] Basic Panelon 11-05-2018 Creatinine [Mass/Vol] 1.17 mg/dL Normal 0.67-1.17 [facility] Comment on above: Performed By: #### P HOS #### [place] [address] Anion gap [Moles/Vol] 13 mmol/L Normal 8-16 [facility] Comment on above: Performed By: #### P HOS #### [place] [address] Calcium [Mass/Vol] 8.7 mg/dL Normal 8.5-10.1 [facility] Comment on above: Performed By: #### P HOS #### [place] [address] CO2 [Moles/Vol] 25 mmol/L Normal 21-32 [facility] Comment on above: Performed By: #### P HOS #### [place] [address] Glucose [Mass/Vol] 105 mg/dL High 70-99 [facility] Comment on above: Performed By: #### P HOS #### [facility] [address] [place] [address] Urea nitrogen [Mass/Vol] 24 mg/dL High 7-18 [facility] Comment on above: Performed By: #### P HOS #### [facility] [address] [place] [address] Chloride [Moles/Vol] 103 mmol/L Normal 98-107 [facility] Comment on above: Performed By: #### P HOS #### [facility] [address] [place] [address] Potassium [Moles/Vol] 3.8 mmol/L Normal 3.5-5.1 [facility] Comment on above: Performed By: #### P HOS #### [facility] [address] [place] [address] Sodium [Moles/Vol] 137 mmol/L Normal 136-145 [facility] Comment on above: Performed By: #### P HOS #### [facility] [address] [place] [address] Hemogramon 11-05-2018 Erythrocyte distribution width (RBC) [Ratio] 13.0 % Normal 11.6-14.4 [facility] Comment on above: Performed By: #### P HOS #### [facility] [address] [place] [address] Hematocrit (Bld) [Volume fraction] 30.7 % Low 40.1-51.0 [facility] Comment on above: Performed By: #### P HOS #### [facility] [address] [place] [address] Hemoglobin (Bld) [Mass/Vol] 10.1 g/dL Low 13.7-17.5 [facility] Comment on above: Performed By: #### P HOS #### [facility] [address] [place] [address] MCH (RBC) [Entitic mass] 30.9 pg Normal 25.7-32.2 [facility] Comment on above: Performed By: #### P HOS #### [facility] [address] [place], [place] [address] MCHC (RBC) [Mass/Vol] 32.9 % Normal 32.3-36.5 [facility] Comment on above: Performed By: #### P HOS #### [facility] [address] [place], [place] [address] MCV (RBC) [Entitic vol] 93.9 fL Normal 83.2-95.6 [facility] Comment on above: Performed By: #### P HOS #### [facility] [address] [place], [place] [address] Nucleated RBC (Bld) [#/Vol] 0.03 thou/cmm High 0.00-0.01 [facility] Comment on above: Performed By: #### P HOS #### [facility] [address] [place] [address] Nucleated RBC/100 WBC (Bld) [Ratio] 0.3 % High 0.0-0.2 [facility] Comment on above: Performed By: #### P HOS #### [facility] [address] [place] [address] Platelet mean volume (Bld) [Entitic vol] 10.3 fL Normal 8.7-12.0 [facility] Comment on above: Performed By: #### P HOS #### [facility] [address] [place], [place] [address] Platelets (Bld) [#/Vol] 211 thou/cmm Normal 141-365 [facility] Comment on above: Performed By: #### P HOS #### [facility] [address] [place], [place] [address] RBC (Bld) [#/Vol] 3.27 mil/cmm Low 4.63-6.08 [facility] Comment on above: Performed By: #### P HOS #### [facility] [address] [place], [place] [address] RDW SD 43.8 fl Normal 36.1-45.8 [facility] Comment on above: Performed By: #### P HOS #### [facility] [address] [place], [place] [address] WBC (Bld) [#/Vol] 9.24 thou/cmm High 4.23-9.07 [facility] Comment on above: Performed By: #### P HOS #### [facility] [address] [place], [place] [address] PROGRESSon 11-05-2018 PROGRESS HNO ID: [id number] Author: Jonathan (Tamir Durham MD Service: Urology Author Type: Resident Type: Progress Notes Filed: 11/05/2018 12:17 PM Note Text: - Patient has already failed 2 void trials and 3rd catheter is currently in place - Primary looking at discharge either 11/06 or 11/07 - Continue flomax - Discharge with cedeno catheter and follow up with Dr. Chou for void trial Jonathan Durham MD Urology, PGY-1 November 05, 2018 12:17 PM Pager: [phone] Normal [facility] PROGRESS HNO ID: [id number] Author: Malgorzata Mcleod Service: Cardiovascular Surgery Author Type: Physician Type: Progress Notes Filed: 11/05/2018 5:14 PM Note Text: CARDIOTHORACIC SURGERY POSTOP PROGRESS NOTE SERVICE DATE: 11/05/2018 SERVICE TIME: 11:26 AM Subjective S/P SURGERY: Procedure(s) (LRB): CABG x 3 (ramos-lad; svg-diag; svg-om; evh); AVR (23 Trifecta pericardial) DATE OF SURGERY: 10/29/2018 POSTOP DAY #7 LOS: 14 HPI:??This is a 78 year old male transferred from [facility] for surgical evaluation of combined aortic valve replacement and bypass surgery. Patient presented to [facility]?10/18/2018?with progressively worsening of?shortness of breath with minimal exertion, chest discomfort, confusion, and expressive aphasia. During the emergency room workup, his creatinine was found 1.48, troponin was 0.554, chest x-ray revealed widened mediastinum. CT brain and MRI without contrast showed no evidence of acute or subacute ischemic infarct. His EKG was unremarkable. He was ruled in for non-ST elevation myocardial infarction as his troponin continued to uptrend and peaked at 1.41 the following day. Cardiac workup including heart cath, Echo and KOKI suggested coronary artery disease with 50% left main ?and 70% LAD lesion; severe aortic valve stenosis. ? Patient reports ongoing shortness of breath for approximately a year now with progressive worsening within the week, even with minimal exertion. He admits chest discomfort, described as tight, pressure like chest pain, radiating down to right arm frequently. Both chest discomfort and shortness of breath resolved with rest. Patient also reports some lightheadedness and episodes of dizzy spell occasionally. He denies diaphoresis, N/V, chest palpitation. He also reports positive of orthopnea, he chronically sleeps in the chair or with his head of the bed elevated at night due to shortness of breath or dyspnea. He denies leg edema, however, he reports constant tightness in both legs chronically. He denies syncope or near syncope, denies arrhythmia. 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 ? INTERVAL EVENTS / PERTINENT ROS: post-op recovery was complicated by anticipated acute respiratory insufficiency due to morbid obesity/restrictive lung disease; metabolic acidosis; acute urinary retention required cedeno reinsertion and urologist consult; Atrial fibrillation on POD #4, then POD #6. Patient is seen and examed today. He has walked with mild SOB/WOLF. Denied LH/DZ, tolerating diet and no pain. No chest palpitation. Patient is still having overt peripheral edema. Patient is seen and examined today with at bedside. He reports some dyspnea on exertion, mild SOB. Currently on room air. He denies chest palpitation, LH/DZ, he is tolerating food okay as well as pain. Reports somewhat relief from small BMs. Still has Cedeno catheter in place which bothers him with ambulation. Reports somewhat relief with swelling in upper extremities. Objective Admission Weight: (!) 140.2 kg (309 lb) BP 120/60 Pulse 72 Temp 36.6 ?C (97.9 ?F) (Oral) Resp 18 Ht 180 cm (5' 10.87) Wt (!) 139.5 kg (307 lb 8 oz) SpO2 96% BMI 43.05 kg/m? Body surface area is 2.64 meters squared. Min/Max/Average Temperature AND Blood Pressure: Temp (24hrs), Av.8 ?C (98.2 ?F), Min:36.6 ?C (97.9 ?F), Max:37.1 ?C (98.8 ?F) Systolic (24hrs), Av , Min:101 , Max:129 Diastolic (24hrs), Av, Min:54, Max:67 Intake/Output Summary (Last 24 hours) at 11/05/2018 1126 Last data filed at 11/05/2018 1041 Gross per 24 hour Intake 100 ml Output 4275 ml Net -4175 ml TELEMETRY: normal sinus rhythm PHYSICAL EXAM: General Appearance: well developed and obese Skin: Midsternal incision dry AND intact., SVG incisions dry AND intact. and Bilateral lower extremity is mildly erythematous likely due to fluid retention Lungs: decreased breath sounds on left lower lobes and respiratory effort: normal, shallow Heart: regular rhythm, S1, S2 normal and no murmur Peripheral Vascular/Arteries: pulses intact, dorsalis pedis +2 and radial +2 Abdomen: soft, non-tender and bowel sounds present Genitourinary: urine color is clear yellow via Cedeno catheter Musculoskeletal: no deformities Extremities: edema: 1+, 2+, Bilateral lower extremities, wrapped with EVANS band. Lines, Drains, and Airways Line Central Line Quadruple Lumen 11/01/18 1241 Non-tunneled Right Neck 3 days Peripheral 11/01/18 1242 Short Left Antecubital 22 Gauge 3 days Drain Indwelling Urinary Catheter 11/03/18 0700 Cedeno 2 days DATA: Diagnostic tests reviewed for today's visit: Significant Lab Results: Reviewed Chest X-RAY 11/03/2018: IMPRESSION: Interval placement of a right internal jugular central venous catheter in satisfactory position without evidence of pneumothorax. Otherwise, stable appearance of the chest Patchy airspace opacities at the lung bases may reflect atelectasis, scarring or infectious infiltrates. ?Small bilateral pleural effusions are suspected. Recent Labs 11/05/18 0527 11/04/18 1735 11/04/18 0400 11/03/18 0430 RBC 3.27* -- 3.42* -- WBC 9.24* -- 8.30 -- HB 10.1* -- 10.3* -- HCT 30.7* -- 31.8* -- PLT 211 -- 193 -- INR 1.11 1.11 -- -- NA 137 -- 141 140 K 3.8 -- 3.9 4.0 CHLOR 103 -- 107 108* CO2 25 -- 24 24 BUN 24* -- 24* 23* CREAT 1.17 -- 1.16 0.99 GLUC 105* -- 115* 115* CA 8.7 -- 8.5 8.6 ANION 13 -- 14 12 Assessment/Plan CAD/NSTEMI/Aortic valve stenosis s/p CABGx3/ AVR? -POD#7 -Off Kasi?since?10/31 -Medical management with ASA?81,Statin 40, Metoprolol?50?TID -Pain management with?tylenol/ morphine/ percocet? -Chest tube?removed 10/31 -Encourage cough and deep breathing, Vest -Post-operative ECHO completed: EF 75%, P/M gradients 7/5 DI 0.86 -Plavix 75 mg for ACS ? Tachycardia/Afib -Single episode 11/02 late PM, recurrence on 11/03 - metoprolol 50 TID -Start Mag Ox - coumadin for reoccurred AF with PMH of CVA 8 yrs ago: 5mg again today ? Anticipated?Acute?Respir atory Insufficiency?s/p CTS? -Improved -2/2 atelectasis/ effusions -Currently on?RA -Encourage cough and deep breathing -added Acapella -Lasix?40 BID?PO, 5 mg zaroxolyn added today? Metabolic Acidosis -Resolved ? DM -A1C 6.1 preop, not previously treated -SSI - Not requiring coverage -Start metformin 500 XL daily and monitor BMP ? Urinary retention -Replaced cedeno 11/01 -Started flomax, but first dose given was?11/02?. . .Changed to HS including 11/02. -Attempt voiding trial ?11/03 -urology following:d/c home with cedeno and f/u outpatient for removal ? Leukocytosis -Resolved, stable -Currently?trending down to?8.67 -Check CBC in AM ? Essential HTN -Currently?attempting to maximize?metoprolol 50?TID -Home regimen: HCTZ 12.5 and lisinopril 40 ? Anticipated thrombocytopenia -Resolved? ? PATRICIA -Continue BPAP/ CPAP per PCCM recommendations -patient refused per PCCM documentation ? Morbid Obesity -BMI > 40 -Long-term weight loss goal? ? GI ppx -Protonix ? DVT ppx -SCDs and teds -Restart?Lovenox?>> will need BID dosing with BMI > 40 -will consider to up to therapeutic dose? ? CKD -Baseline ?SCr1.48 -Today?1.17 ? ? Dispo:?PT/OT recs:?Home with home health care when stable, family asking to stay til sunday Tests/Labs Ordered: 1. BMP 2. PT/INR SIGNATURE: Flakita Baker APRN.CNP PATIENT NAME: Harrison Milligan DATE: November 05, 2018 TIME: 11:26 AM PAGER/CONTACT #: [phone] For [place] Patient seen with AUTOMATED PROCESS OPERATOR this afternoon and careplan discussed. JAYDEN Cedeno stay in and AUTOMATED PROCESS OPERATOR wants to use triple therapy for cabg avr with postop afib. P-as ordered. Normal [facility] Protimeon 11-05-2018 INR Coag (PPP) [Relative time] 1.11 {INR} Normal 0.90-1.30 [facility] Comment on above: Result Comment: Note : Reference Range Change Vitamin K Antagonist (VKA) Therapeutic Range: INR 2 to 3 (Target INR of 2.5) Note: For patients treated with VKA drugs, such as warfarin, the [place] [employer] 2012 Guideline recommends a therapeutic INR range of 2 to 3 (target INR of 2.5). This recommendation includes high-risk patients with antiphospholipid syndrome with previous arterial or venous thromboembolism, current-generation mechanical or bioprosthetic aortic heart valve replacement. VKA Therapeutic Range for some Mechanical Valve Replacement: INR 2.5 to 3.5 (Target INR of 3) Note: Patients with mechanical aortic valve replacement and additional risk factors for thromboembolic events (atrial fibrillation, previous thromboembolism, LV dysfunction, hypercoagulable conditions) or an older generation mechanical AVR (i.e., ball in-Cage) or any mechanical MVR should have a INR therapeutic range of 2.5 to 3.5 target INR of 3). Jaime CLAUDIO, et al. Chest 2012; 141:7S-47S Sebas RA, et al. JAC 2017; 70: 252-289 Performed By: #### P HOS #### [facility] [address] [place], [place] [address] PT Coag (PPP) [Time] 11.5 s Normal 9.7-13.0 [facility] Comment on above: Performed By: #### P HOS #### [facility] [address] [place], [place] [address] Basic Panelon 11-04-2018 Creatinine [Mass/Vol] 1.16 mg/dL Normal 0.67-1.17 [facility] Comment on above: Performed By: #### M AG #### [facility] [address] [place], [place] [address] Anion gap [Moles/Vol] 14 mmol/L Normal 8-16 [facility] Comment on above: Performed By: #### M AG #### [facility] [address] [place], [place] [address] Calcium [Mass/Vol] 8.5 mg/dL Normal 8.5-10.1 [facility] Comment on above: Performed By: #### M AG #### [facility] [address] [place], [place] [address] CO2 [Moles/Vol] 24 mmol/L Normal 21-32 [facility] Comment on above: Performed By: #### M AG #### [facility] [address] [place], [place] [address] Glucose [Mass/Vol] 115 mg/dL High 70-99 [facility] Comment on above: Performed By: #### M AG #### [facility] [address] [place], [place] [address] Urea nitrogen [Mass/Vol] 24 mg/dL High 7-18 [facility] Comment on above: Performed By: #### M AG #### [facility] [address] [place], [place] [address] Chloride [Moles/Vol] 107 mmol/L Normal 98-107 [facility] Comment on above: Performed By: #### M AG #### [facility] [address] [place], [place] [address] Potassium [Moles/Vol] 3.9 mmol/L Normal 3.5-5.1 [facility] Comment on above: Performed By: #### M AG #### [facility] [address] [place] [address] Sodium [Moles/Vol] 141 mmol/L Normal 136-145 [facility] Comment on above: Performed By: #### M AG #### [place] [address] CASE MANAGEMon 11-04-2018 CASE MANAGEM HNO ID: [id number] Author: Tiffanie (Rn) LOKESH Florez Service: Care Management Author Type: Registered Nurse Type: Care Mgt Progress Note Filed: 11/04/2018 10:07 AM Note Text: CARE MANAGEMENT PROGRESS NOTE SERVICE DATE: 11/04/2018 SERVICE TIME: 10:07 AM LOS: 13 days Chart reviewed. Plan for pt to return home with [facility] when medically ready. Will follow. SIGNATURE: Tiffanie Florez RN PATIENT NAME: Harrison iMlligan DATE: November 04, 2018 TIME: 10:07 AM PAGER/CONTACT #: [phone] Normal [facility] Hemogramon 11-04-2018 Erythrocyte distribution width (RBC) [Ratio] 12.7 % Normal 11.6-14.4 [facility] Comment on above: Performed By: #### M AG #### [place] [address] Hematocrit (Bld) [Volume fraction] 31.8 % Low 40.1-51.0 [facility] Comment on above: Performed By: #### M AG #### [place] [address] Hemoglobin (Bld) [Mass/Vol] 10.3 g/dL Low 13.7-17.5 [facility] Comment on above: Performed By: #### M AG #### [place] [address] MCH (RBC) [Entitic mass] 30.1 pg Normal 25.7-32.2 [facility] Comment on above: Performed By: #### M AG #### [place] [address] MCHC (RBC) [Mass/Vol] 32.4 % Normal 32.3-36.5 [facility] Comment on above: Performed By: #### M AG #### [facility] [address] [place], [place] [address] MCV (RBC) [Entitic vol] 93.0 fL Normal 83.2-95.6 [facility] Comment on above: Performed By: #### M AG #### [facility] [address] [place], [place] [address] Nucleated RBC (Bld) [#/Vol] 0.08 thou/cmm High 0.00-0.01 [facility] Comment on above: Performed By: #### M AG #### [facility] [address] [place] [address] Nucleated RBC/100 WBC (Bld) [Ratio] 1.0 % High 0.0-0.2 [facility] Comment on above: Performed By: #### M AG #### [facility] [address] [place] [address] Platelet mean volume (Bld) [Entitic vol] 10.3 fL Normal 8.7-12.0 [facility] Comment on above: Performed By: #### M AG #### [facility] [address] [place], [place] [address] Platelets (Bld) [#/Vol] 193 thou/cmm Normal 141-365 [facility] Comment on above: Performed By: #### M AG #### [address] [address] RBC (Bld) [#/Vol] 3.42 mil/cmm Low 4.63-6.08 [facility] Comment on above: Performed By: #### M AG #### [facility] [address] [place], [place] [address] RDW SD 41.4 fl Normal 36.1-45.8 [facility] Comment on above: Performed By: #### M AG #### [facility] [address] [place], [place] [address] WBC (Bld) [#/Vol] 8.30 thou/cmm Normal 4.23-9.07 [facility] Comment on above: Performed By: #### M AG #### [facility] [address] [place] [address] NUTRITIONon 11-04-2018 NUTRITION HNO ID: [id number] Author: Haydee Jaramillo) LAYO Monique Service: Nutrition Therapy Author Type: Registered Dietitian Type: Nutrition Filed: 11/04/2018 2:43 PM Note Text: NUTRITION THERAPY PROGRESS NOTE SERVICE DATE: 11/04/2018 SERVICE TIME: 14:35 RECOMMENDED DIAGNOSIS: NO MALNUTRITION IDENTIFIED per Registered Dietitian on 10/30/18 NUTRITION CARE PLAN Problem, Etiology and Signs/Symptoms: Increased nutrient needs kcal/protein related to increased metabolic demand from surgery as evidenced by CABG 10/29/18 Intervention: 1. Encouraged oral intake, heart healthy diet 2. Please document accurate % meals taken in nursing flowsheet, thank you Monitor and Evaluation: Goal: Meet >75% of estimated needs Monitor fluid/electrolyte balance Monitor labs, I/Os, vital signs, weight Discharge Nutrition Recommendations: Diet: Heart healthy Nutrition Follow-up: Per HPI: 78 year old male who presents as an inpatient transfer from [facility]. ?He presented there with worsening dyspnea with exertion, reaching the point of dyspnea with any activity at all. ?He did not have overt chest pressure or pain. ?When he was evaluated in the emergency department he had an indeterminate troponin, so he was treated as a non-STEMI. ?Echocardiogram showed severe aortic stenosis with severe calcification of the leaflets. ?Cardiac catheterization showed significant left anterior descending stenosis. ?He was therefore recommended for consideration of coronary artery bypass grafting with aortic valve replacement and transferred to this facility today. ? ACTIVE PROBLEM LIST Ataxia S/P Cva Essential Hypertension Mixed Hyperlipidemia History of Stroke Bmi 40.0-44.9, Adult (Hcc) Cad (Coronary Artery Disease) Nstemi (Non-St Elevated Myocardial Infarction) ([facility]) Cerebrovascular Disease Aortic Stenosis S/P Cabg (Coronary Artery Bypass Graft) S/P Avr Acute Urinary Retention PAST MEDICAL HISTORY Diagnosis Date - Cerebrovascular disease 10/22/2018 - High blood pressure - HLD (hyperlipidemia) - Stroke (HCC) PAST SURGICAL HISTORY Procedure Laterality Date - CARDIAC CATH 10/21/2018 [facility] - TONSILLECTOMY AND ADENOIDECTOMY HX Interval History: 10/30: Pulmonary on consult. Underwent CABG on 10/01/18 and extubated 10/29/18. 11/04: PT/OT recommending home therapy. Chest tube removed 10/31. Urology consulted for inability to void. Started on Flomax. BM 11/04. Nutritional Intake: Nutritional Intake Prior to Admission: >75% estimated energy needs over the past >1 month(s). PO intake was 100% prior to OR. PO intake since last RD note 10/30 has been variable 25-100%. Patient states he feels he has been eating well here, states we send very large portions. Sending different food than he is used to. Tells me he received education from RD here, denies any follow-up questions with this. States he knows he has some changes to make in his diet. Orders Placed This Encounter DIET HEART HEALTHY Standing Status: Standing Number of Occurrences: 1 Order Specific Question: Heart Healthy Answer: 2 GM SODIUM (<200 MG CHOL / LOW SAT FAT) Lines and Drains: Central Line Quadruple Lumen 11/01/18 1241 Non-tunneled Right Neck (Active) Peripheral 11/01/18 1242 Short Left Antecubital 22 Gauge (Active) Height: 180 cm (5' 10.87) Admission Weight: (!) 140.2 kg (309 lb) Current Weight: (!) 140.3 kg (309 lb 6.4 oz) Body mass index is 43.32 kg/m?. class 3 obesity Recent Labs 11/04/18 0400 GLUC 115* BUN 24* CREAT 1.16 NA 141 K 3.9 CHLOR 107 CO2 24 HB 10.3* HCT 31.8* WBC 8.30 ALLERGIES No Known Allergies Current Facility-Administered Medications Medication Dose Route Frequency - metoprolol tartrate (short acting) 50 mg tab(s) (LOPRESSOR) 50 mg ORAL q 8 H - magnesium oxide 400 mg tab(s) (MAG-OX) 400 mg ORAL BID - aspirin 81 mg chewable tab(s) 81 mg ORAL DAILY - polyethylene glycol 3350 17 g packet (MIRALAX, GLYCOLAX) 17 g ORAL DAILY PRN - furosemide 40 mg tab(s) (LASIX) 40 mg ORAL BID 9a/5p - metFORMIN ER 500 mg tab(s) (GLUCOPHAGE XR) 500 mg ORAL DAILY (5 PM) - tamsulosin ER 0.4 mg cap(s) (FLOMAX) 0.4 mg ORAL AT BEDTIME - clopidogrel 75 mg tab(s) (PLAVIX) 75 mg ORAL DAILY - potassium chloride ER 20 mEq tab(s) (K-DUR, KLOR-CON) 20 mEq ORAL TID after MEALS - enoxaparin 40 mg injection (LOVENOX) 40 mg SUBCUTANEOUS q 12 HR - NaCl 0.9% 2-10 mL 2-10 mL INTRAVENOUS q 12 H - melatonin 3 mg tab(s) 3 mg ORAL HS PRN - bisacodyl 10 mg suppository (DULCOLAX) 10 mg RECTAL DAILY PRN - pantoprazole DR 40 mg tab(s) (PROTONIX) 40 mg ORAL DAILY (6 AM) - atorvastatin 40 mg tab(s) (LIPITOR) 40 mg ORAL AT BEDTIME - morphine 2-4 mg injection 2-4 mg INTRAVENOUS q 1 H PRN - ipratropium-albuterol 3 mL nebulizer solution (DUONEB) 3 mL INHALATION q 4 H while awake - acetaminophen 650 mg tab(s) (TYLENOL) 650 mg ORAL q 6 H PRN - ondansetron (PF) 4 mg injection (ZOFRAN) 4 mg INTRAVENOUS q 6 H PRN - oxyCODONE-acetaminophen 5-325 mg 1-2 tablet (PERCOCET) 1-2 tablet ORAL q 4 H PRN - NaCl 0.9% 2-10 mL 2-10 mL INTRAVENOUS q 12 H - albuterol 2.5 mg /3 mL (0.083 %) 2.5 mg (PROVENTIL) 2.5 mg INHALATION q 4 H PRN Date 11/03/18 07 - 11/04/18 0659 11/04/18 07 - 11/05/18 0659 Shift 7280-0752 9386-1919 8540-6684 24 Hour Total 5941-5091 9854-1494 6856-3632 24 Hour Total INTAKE PO 240 240 PO 240 240 Shift Total 240 240 OUTPUT Urine 1200 1250 2450 550 550 Output ([REMOVED] Indwelling Urinary Catheter 11/01/18 1243 Cedeno 11/03/18 1227) 1200 1250 2450 550 550 # of BMs Number of BMs 3 x 1 x 4 x 1 x 1 x Shift Total 1200 1250 2450 550 550 Weight (kg) 144.1 144.1 140.3 140.3 140.3 140.3 140.3 140.3 Surgical Incision 11/01/18 1431 Leg - Left (Active) Dressing Status None: Open to Air 11/03/2018 9:30 PM Incision Closures Topical Skin Adhesive 11/03/2018 9:30 PM Drainage Description None 11/03/2018 9:30 PM Drainage Amount None 11/03/2018 9:30 PM Edges Intact 11/03/2018 9:30 PM Hematoma No 11/03/2018 9:30 PM Number of days: 2 Surgical Incision 11/01/18 1432 Chest - Midsternal (Active) Dressing Status None: Open to Air 11/03/2018 9:30 PM Incision Closures Topical Skin Adhesive 11/03/2018 9:30 PM Drainage Description None 11/03/2018 9:30 PM Drainage Amount None 11/03/2018 9:30 PM Edges Intact;Irregular 11/03/2018 9:30 PM Hematoma No 11/03/2018 9:30 PM Number of days: 2 Vitamin and Mineral Labs in the past year:No results for input(s): CHROMIUM, COPPER, MANGANESE, SELENIUM, VITAMINA, VITB1, VITB2, VITB6, B12, METHYLMAL, VITD25, VITAMINE, VITAK, ZINC, TIBC, FE, JESSICA in the last 8784 hours. MNT Billing Type: Re-assess/15 min 1 unit SIGNATURE: Haydee Monique RD PATIENT NAME: Harrison Milligan DATE: November 04, 2018 TIME: 1:38 PM PAGER: [phone] [facility] PROGRESSon 11-04-2018 PROGRESS HNO ID: [id number] Author: Malgorzata Mcleod Service: Cardiovascular Surgery Author Type: Physician Type: Progress Notes Filed: 11/04/2018 3:46 PM Note Text: CARDIOTHORACIC SURGERY POSTOP PROGRESS NOTE SERVICE DATE: 11/04/2018 SERVICE TIME: 10:44 AM Subjective S/P SURGERY: Procedure(s) (LRB): CABG x 3 (ramos-lad; svg-diag; svg-om; evh); AVR (23 Trifecta pericardial) DATE OF SURGERY: 10/29/2018 POSTOP DAY #6 LOS: 13 HPI:??This is a 78 year old male transferred from [facility] for surgical evaluation of combined aortic valve replacement and bypass surgery. Patient presented to [facility]?10/18/2018?with progressively worsening of?shortness of breath with minimal exertion, chest discomfort, confusion, and expressive aphasia. During the emergency room workup, his creatinine was found 1.48, troponin was 0.554, chest x-ray revealed widened mediastinum. CT brain and MRI without contrast showed no evidence of acute or subacute ischemic infarct. His EKG was unremarkable. He was ruled in for non-ST elevation myocardial infarction as his troponin continued to uptrend and peaked at 1.41 the following day. Cardiac workup including heart cath, Echo and KOKI suggested coronary artery disease with 50% left main ?and 70% LAD lesion; severe aortic valve stenosis. ? Patient reports ongoing shortness of breath for approximately a year now with progressive worsening within the week, even with minimal exertion. He admits chest discomfort, described as tight, pressure like chest pain, radiating down to right arm frequently. Both chest discomfort and shortness of breath resolved with rest. Patient also reports some lightheadedness and episodes of dizzy spell occasionally. He denies diaphoresis, N/V, chest palpitation. He also reports positive of orthopnea, he chronically sleeps in the chair or with his head of the bed elevated at night due to shortness of breath or dyspnea. He denies leg edema, however, he reports constant tightness in both legs chronically. He denies syncope or near syncope, denies arrhythmia. 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 INTERVAL EVENTS / PERTINENT ROS: post-op recovery was complicated by anticipated acute respiratory insufficiency due to morbid obesity/restrictive lung disease; metabolic acidosis; acute urinary retention required cedeno reinsertion and urologist consult; Atrial fibrillation on POD #4, then POD #6. Patient is seen and examed today. He has walked with mild SOB/WOLF. Denied LH/DZ, tolerating diet and no pain. No chest palpitation. Patient is still having overt peripheral edema. Objective Admission Weight: (!) 140.2 kg (309 lb) BP 125/56 Pulse 78 Temp 37 ?C (98.6 ?F) (Oral) Resp 17 Ht 180 cm (5' 10.87) Wt (!) 140.3 kg (309 lb 6.4 oz) SpO2 94% BMI 43.32 kg/m? Body surface area is 2.65 meters squared. Min/Max/Average Temperature AND Blood Pressure: Temp (24hrs), Av.8 ?C (98.3 ?F), Min:36.5 ?C (97.7 ?F), Max:37 ?C (98.6 ?F) Systolic (24hrs), Av , Min:104 , Max:125 Diastolic (24hrs), Av, Min:56, Max:64 Intake/Output Summary (Last 24 hours) at 11/04/2018 1044 Last data filed at 11/04/2018 1042 Gross per 24 hour Intake 240 ml Output 3000 ml Net -2760 ml TELEMETRY: normal sinus rhythm, noted PAF on 11/03 4pm PHYSICAL EXAM: General Appearance: well developed and no distress Skin: Midsternal incision dry AND intact., SVG incisions dry AND intact., warm and dry Lungs: decreased breath sounds and respiratory effort: normal Heart: regular rhythm, S1, S2 normal and no murmur Peripheral Vascular/Arteries: pulses intact, dorsalis pedis +2 and radial +2 Abdomen: soft, non-tender and bowel sounds present Genitourinary: Cedeno intact, urine color is clear yellow Musculoskeletal: no deformities Neurologic/Psychiatric: oriented to time, place and person and steady gait Extremities: edema: 1+, 2+, BLE, diffused redness on LLL, warm to touch. Lines, Drains, and Airways Line Central Line Quadruple Lumen 11/01/18 1241 Non-tunneled Right Neck 2 days Peripheral 11/01/18 1242 Short Left Antecubital 22 Gauge 2 days DATA: Diagnostic tests reviewed for today's visit: Significant Lab Results: reviewed Chest X-RAY 11/03: IMPRESSION: Interval placement of a right internal jugular central venous catheter in satisfactory position without evidence of pneumothorax. Otherwise, stable appearance of the chest Patchy airspace opacities at the lung bases may reflect atelectasis, scarring or infectious infiltrates. ?Small bilateral pleural effusions are suspected ECHO 11/01/2018: CONCLUSIONS: - Technically difficult exam due to suboptimal positioning, post op and unable to tolerate probe. - Exam indication: S/p CABG and AVR - Left ventricular systolic function is hyperdynamic. EF = 75 ? 5% (visual est.) Definity contrast used for endocardial border detection. On very limited views, LV ?cavity appears small with EF 75% - St. Benjy Trifecta prosthetic aortic valve (size #23). The peak gradient is 7 mmHg, the mean gradient is 5 mmHg and the dimensionless valve index is 0.86. Normal gradient across AVR; valve not well seen. Extremely limited study No obvious pericardial effusion - Exam was compared with the prior echocardiographic exam performed on 10/28/2018 Recent Labs 11/04/18 0400 11/03/18 0430 11/02/18 0506 RBC 3.42* -- 3.15* WBC 8.30 -- 8.67 HB 10.3* -- 9.7* HCT 31.8* -- 29.2* PLT 193 -- 132* NA 141 140 140 K 3.9 4.0 4.1 CHLOR 107 108* 108* CO2 24 24 23 BUN 24* 23* 24* CREAT 1.16 0.99 1.00 GLUC 115* 115* 101* CA 8.5 8.6 8.5 ANION 14 12 13 Assessment/Plan CAD/NSTEMI/Aortic valve stenosis s/p CABGx3/ AVR? -POD#6 -Off Kasi?since?10/31 -Medical management with ASA 81, Statin 40, ?Metoprolol?50?TID -Pain management with?tylenol/ morphine/ percocet? -Chest tube?removed 10/31 -TLC, poor PIV access -Encourage cough and deep breathing, Vest -Post-operative ECHO completed: EF 75%, P/M gradients 7/5 DI 0.86 -Plavix 75 mg for ACS ? Tachycardia/Afib -Single episode 11/02 late PM, recurrence on 11/03 - metoprolol 50 TID -Start Mag Ox - Considering coumadin for reoccurred AF with PMH of CVA 8 yrs ago ? Anticipated?Acute?Respir atory Insufficiency?s/p CTS? -Improved -2/2 atelectasis/ effusions -Currently on?RA -Encourage cough and deep breathing -added Acapella -Lasix?40 BID?PO ? Metabolic Acidosis -Resolved ? DM -A1C 6.1 preop, not previously treated -SSI - Not requiring coverage -Start metformin 500 XL daily and monitor BMP ? Urinary retention -Replaced cedeno 11/01 -Started flomax, but first dose given was 11/02 . . .Changed to HS including 11/02. -Attempt voiding trial ?11/03 -urology following ? ? Leukocytosis -Resolved, stable -Currently?trending down to?8.67 -Check CBC in AM ? Essential HTN -Currently?attempting to maximize?metoprolol 50 TID -Home regimen: HCTZ 12.5 and lisinopril 40 ? Anticipated thrombocytopenia -Resolved? ? PATRICIA -Continue BPAP/ CPAP per PCCM recommendations -patient refused per PCCM documentation ? Morbid Obesity -BMI > 40 -Long-term weight loss goal? ? GI ppx -Protonix ? DVT ppx -SCDs and teds -Restart?Lovenox?>> will need BID dosing with BMI > 40 -will consider to up to therapeutic dose? ? CKD -Baseline ?SCr1.48 -Today 1.16 ? ? Dispo:?PT/OT recs:?Home with home health care when stable, family asking to stay til sunday Tests/Labs Ordered: 1. BMP SIGNATURE: Flakita Baker APRN.CNP PATIENT NAME: Harrison Milligan DATE: November 04, 2018 TIME: 10:44 AM PAGER/CONTACT #:[phone] ETX [id number] For [facility] Patient seen with AUTOMATED PROCESS OPERATOR. Data and course reviewed. Recurrent afib noted by AUTOMATED PROCESS OPERATOR. P-will add coumadin per JAL preference. D/W AUTOMATED PROCESS OPERATOR and patient at bedside. Normal [facility] Protimeon 11-04-2018 INR Coag (PPP) [Relative time] 1.11 {INR} Normal 0.90-1.30 [facility] Comment on above: Result Comment: Note : Reference Range Change Vitamin K Antagonist (VKA) Therapeutic Range: INR 2 to 3 (Target INR of 2.5) Note: For patients treated with VKA drugs, such as warfarin, the [place] [employer] 2012 Guideline recommends a therapeutic INR range of 2 to 3 (target INR of 2.5). This recommendation includes high-risk patients with antiphospholipid syndrome with previous arterial or venous thromboembolism, current-generation mechanical or bioprosthetic aortic heart valve replacement. VKA Therapeutic Range for some Mechanical Valve Replacement: INR 2.5 to 3.5 (Target INR of 3) Note: Patients with mechanical aortic valve replacement and additional risk factors for thromboembolic events (atrial fibrillation, previous thromboembolism, LV dysfunction, hypercoagulable conditions) or an older generation mechanical AVR (i.e., ball in-Cage) or any mechanical MVR should have a INR therapeutic range of 2.5 to 3.5 target INR of 3). Jaime GH, et al. Chest 2012; 141:7S-47S Sebas RA, et al. [facility] 2017; 70: 252-289 Performed By: #### P HOS #### [address] [address] PT Coag (PPP) [Time] 11.5 s Normal 9.7-13.0 [facility] Comment on above: Performed By: #### P HOS #### [place] [address] Basic Panelon 11-03-2018 Creatinine [Mass/Vol] 0.99 mg/dL Normal 0.67-1.17 [facility] Comment on above: Performed By: #### M AG #### [address] [address] Anion gap [Moles/Vol] 12 mmol/L Normal 8-16 [facility] Comment on above: Performed By: #### M AG #### [address] [address] Calcium [Mass/Vol] 8.6 mg/dL Normal 8.5-10.1 [facility] Comment on above: Performed By: #### M AG #### [address] [address] CO2 [Moles/Vol] 24 mmol/L Normal 21-32 [facility] Comment on above: Performed By: #### M AG #### [address] [address] Glucose [Mass/Vol] 115 mg/dL High 70-99 [facility] Comment on above: Performed By: #### M AG #### [facility] [address] [place], [place] [address] Urea nitrogen [Mass/Vol] 23 mg/dL High 7-18 [facility] Comment on above: Performed By: #### M AG #### [facility] [address] [place], [place] [address] Chloride [Moles/Vol] 108 mmol/L High 98-107 [facility] Comment on above: Performed By: #### M AG #### [facility] [address] [place], [place] [address] Potassium [Moles/Vol] 4.0 mmol/L Normal 3.5-5.1 [facility] Comment on above: Performed By: #### M AG #### [facility] [address] [place], [place] [address] Sodium [Moles/Vol] 140 mmol/L Normal 136-145 [facility] Comment on above: Performed By: #### M AG #### [facility] [address] [place], [place] [address] CONSULTon 11-03-2018 CONSULT HNO ID: [id number] Author: Jonathan Durham MD Service: Urology Author Type: Resident Type: Consults Filed: 11/05/2018 2:50 PM Note Text: -------- Attestation signed by Iain Ruiz at 11/06/2018 11:14 AM I did not see this patient Iain Ruiz MD -------- Urology Inpatient Consultation HISTORY OF PRESENT ILLNESS: The patient is a 78 year old male not known to the urologic service who is s/p aortic valve replacement and CABGx3 on 10/29. He had catheter removed on 11/03 and was unable to void. He was bladder scanned for ~700mL and cedeno catheter was re-inserted for that amount. The patient states that he is not on flomax at home. He does endorse nocturia 2-3x/evening. He denies a weak stream, dysuria, hematuria, or foul-smelling urine prior to admission. Last BM was yesterday AM. He has been ambulating. PAST MEDICAL HISTORY: PAST MEDICAL HISTORY Diagnosis Date - Cerebrovascular disease 10/22/2018 - High blood pressure - HLD (hyperlipidemia) - Stroke (HCC) PAST SURGICAL HISTORY: PAST SURGICAL HISTORY Procedure Laterality Date - CARDIAC CATH 10/21/2018 [facility] - TONSILLECTOMY AND ADENOIDECTOMY HX ALLERGIES: ALLERGIES No Known Allergies HOME MEDICATIONS: Medications Prior to Admission: Hydrochlorothiazide 12.5 mg capsule Take 1 capsule by mouth once daily. Disp: 90 capsule Rfl: 3 Taking simvastatin (ZOCOR) 40 mg tablet Take 1 tablet by mouth daily at bedtime. Disp: 90 tablet Rfl: 3 Taking lisinopril (ZESTRIL, PRINIVIL) 40 mg tablet Take 1 tablet by mouth once daily. Disp: 90 tablet Rfl: 3 Taking MULTIVITAMIN ORAL Take by mouth. Disp: Rfl: Taking Aspirin 81 mg ORAL Tab Take 81 mg by mouth. Disp: Rfl: Taking FAMILY HISTORY: Family History Problem Relation Age of Onset - Diabetes Father - Thyroid Sister - Cancer Mother thyroid - Diabetes Mother - Hypertension Mother Social History: Tobacco Use: Never Alcohol Use: No ROS: Constitutional: negative for chills and fevers HEENT: no blurry vision or eye redness Respiratory: negative for hemoptysis and shortness of breath Cardiovascular: negative for dyspnea and syncope Gastrointestinal: negative for jaundice, nausea and vomiting Genitourinary:negative for dysuria and hematuria, +retention Hematologic/lymphatic: negative for bleeding Integumentary: no new bruises or lesions Musculoskeletal:negative for muscle weakness Neurological: negative for coordination problems and seizures All other systems negative PHYSICAL EXAM: VITALS: 11/03/18 1104 11/03/18 1217 11/03/18 1549 11/03/18 1559 BP: 123/59 114/58 Pulse: 78 71 81 81 Resp: 20 20 20 Temp: 37 ?C (98.6 ?F) 36.8 ?C (98.2 ?F) TempSrc: Oral Axillary SpO2: 96% 94% 98% Weight: Height: General: Alert, in no acute distress Head: Normocephalic, atraumatic Neck: supple, trachea is midline, no obvious masses Respiratory: normal effort, no audible wheezes Cardiovascular: regular pulse and no cyanosis Musculoskeletal: moving all extremities, normal tone Skin: warm and dry Psych: normal mood and affect, oriented Abdomen: soft, non distended, non tender, no organomegaly, no hernias : 16F cedeno draining yellow urine DATA: LABS: BMP: . Glucose (mg/dL) Date Value 11/03/2018 115 Potassium (mEq/L) Date Value 11/03/2018 4.0 Sodium (mEq/L) Date Value 11/03/2018 140 Chloride (mEq/L) Date Value 11/03/2018 108 CO2 (mEq/L) Date Value 11/03/2018 24 Creatinine (mg/dL) Date Value 11/03/2018 0.99 BUN (mg/dL) Date Value 11/03/2018 23 Anion Gap (no units) Date Value 11/03/2018 12 Calcium (mg/dL) Date Value 11/03/2018 8.6 CBC: HGB (g/dL) Date Value 11/02/2018 9.7 Hematocrit (%) Date Value 11/02/2018 29.2 WBC (thou/cmm) Date Value 11/02/2018 8.67 Platelet Count (thou/cmm) Date Value 11/02/2018 132 Urinalysis: pH, Arterial Date Value Ref Range Status 10/29/2018 7.327 (L) 7.350 - 7.450 Final Specific [place], Ur Date Value Ref Range Status 10/23/2018 1.024 1.005 - 1.030 Final Glucose, Urine Date Value Ref Range Status 10/23/2018 NEGATIVE Negative mg/dL Final Bilirubin, Urine Date Value Ref Range Status 10/23/2018 NEGATIVE Negative Final Ketones, Urine Date Value Ref Range Status 10/23/2018 NEGATIVE Negative mg/dL Final Protein, Urine Date Value Ref Range Status 10/23/2018 NEGATIVE Negative mg/dL Final Urobilinogen, Urine Date Value Ref Range Status 10/23/2018 1.0 0.0 - 1.0 EU/dL Final Urine Culture: pending RADIOLOGY: NA IMPRESSION: 78 year old male with AUR (700mL). PLAN: - Flomax - Check urine culture - Maintain cedeno catheter to straight drain - Bowel regimen per primary service - Outpatient follow up - encourage ambulation - recommend limiting usage of narcotics - Patient already failed 2 void trials. Discharge with catheter and follow up as outpatient with Dr. Chou for void trial Thank you for allowing me to participate in the care of your patient Jonathan Durham MD Urology, PGY-1 November 05, 2018 12:16 PM Pager: [phone] Normal [facility] Cult Urineon 11-03-2018 Cult Urine Test performed at [facility] No growth Normal [facility] Comment on above: Performed By: #### P HOS #### [place] [address] NURSING PROGon 11-03-2018 NURSING PROG HNO ID: [id number] Author: Marixa LeachRn) LOKESH Nath Service: Nursing Author Type: Registered Nurse Type: Nursing Progress Note Filed: 11/03/2018 6:50 PM Note Text: LEONORA Hernandez notified that pt. Still has not voided since Cedeno removal at 1230. Pt. Bladder scanned and had 702 cc in bladder. Order given to re-place Cedeno catheter and consult urology. Cedeno catheter placed easily. 700cc clear, yellow urine out immediately. Will continue to monitor. Normal [facility] NURSING PROG HNO ID: [id number] Author: Marixa LeachRn) LOKESH Nath Service: Nursing Author Type: Registered Nurse Type: Nursing Progress Note Filed: 11/03/2018 1:01 PM Note Text: Order to d/c Cedeno. Approximately 250cc put into pt.'s bladder, and Cedeno catheter pulled. Pt. Instructed to urinate into urinal. Will await void from patient and then check a bladder scan. Will continue to monitor. Normal [facility] NURSING PROG HNO ID: [id number] Author: Tawny LeachRn) LOKESH Davis Service: ? Author Type: Registered Nurse Type: Nursing Progress Note Filed: 11/02/2018 11:13 PM Note Text: Paged Dr. Mcleod due to patient HR increasing to 140s and being irregular. Patient is now showing NSR on telemetry and resting quietly in bed. Dr. Mcleod states if patient's HR increases and sustains to start a cardizem gtt. Patient denies pain or SOB. Will continue to monitor. Normal [facility] PROGRESSon 11-03-2018 PROGRESS HNO ID: [id number] Author: Malgorzata Mcleod Service: Cardiac Surgery Author Type: Physician Type: Progress Notes Filed: 11/03/2018 2:25 PM Note Text: CARDIOTHORACIC SURGERY POSTOP PROGRESS NOTE SERVICE DATE: 11/03/2018 SERVICE TIME: 11:07 AM Subjective S/P SURGERY: Procedure(s) (LRB): AVR/CABGx3 (#23-mm St Benjy trifecta pericardial bioprosthesis, RAMOS-LAD, SVG-Diag, SVG-OM) DATE OF SURGERY: 10/29/2018 POSTOP DAY #5 LOS: 12 HPI:??This is a 78 year old male transferred from [facility] for surgical evaluation of combined aortic valve replacement and bypass surgery. Patient presented to [facility]?10/18/2018?with progressively worsening of?shortness of breath with minimal exertion, chest discomfort, confusion, and expressive aphasia. During the emergency room workup, his creatinine was found 1.48, troponin was 0.554, chest x-ray revealed widened mediastinum. CT brain and MRI without contrast showed no evidence of acute or subacute ischemic infarct. His EKG was unremarkable. He was ruled in for non-ST elevation myocardial infarction as his troponin continued to uptrend and peaked at 1.41 the following day. Cardiac workup including heart cath, Echo and KOKI suggested coronary artery disease with 50% left main ?and 70% LAD lesion; severe aortic valve stenosis. ? Patient reports ongoing shortness of breath for approximately a year now with progressive worsening within the week, even with minimal exertion. He admits chest discomfort, described as tight, pressure like chest pain, radiating down to right arm frequently. Both chest discomfort and shortness of breath resolved with rest. Patient also reports some lightheadedness and episodes of dizzy spell occasionally. He denies diaphoresis, N/V, chest palpitation. He also reports positive of orthopnea, he chronically sleeps in the chair or with his head of the bed elevated at night due to shortness of breath or dyspnea. He denies leg edema, however, he reports constant tightness in both legs chronically. He denies syncope or near syncope, denies arrhythmia. 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 ? This is in the setting of CVA (8?yrs ago?without neuro deficit) without surgical or medical interventions, HLD, HTN, obesity, and prediabetic.? Post operative interval events: ICU recovery unremarkable. Overnight he had a single episode of elevated heart rate wich resolved without intervention. ? ? Today, Mr Milligan reports continues to do well. Reports multiple episodes of loose stool overnight last night. Ambulation is limited by the presence of a Cedeno catheter. Will attempt voiding trial today. Looking forward to going home likely Sunday. Objective Admission Weight: (!) 140.2 kg (309 lb) BP 128/68 Pulse 78 Temp 36.7 ?C (98.1 ?F) (Oral) Resp 20 Ht 180 cm (5' 10.87) Wt (!) 144.1 kg (317 lb 9.6 oz) SpO2 94% BMI 44.46 kg/m? Body surface area is 2.68 meters squared. Min/Max/Average Temperature AND Blood Pressure: Temp (24hrs), Av.7 ?C (98 ?F), Min:36.5 ?C (97.7 ?F), Max:36.8 ?C (98.2 ?F) Systolic (24hrs), Av , Min:96 , Max:129 Diastolic (24hrs), Av, Min:53, Max:72 Intake/Output Summary (Last 24 hours) at 11/03/2018 1107 Last data filed at 11/03/2018 0145 Gross per 24 hour Intake ? Output 2050 ml Net -2050 ml TELEMETRY: normal sinus rhythm PHYSICAL EXAM: General Appearance: well developed, obese and no distress Skin: Midsternal incision dry AND intact. and SVG incisions positive for scant amount yellow drainage. Lungs: clear and respiratory effort: normal Heart: S1, S2 normal and no murmur Abdomen: soft, round, non-tender and bowel sounds present Genitourinary: Cedeno intact, urine color is yellow with brown sediment Extremities: normal exam of the extremities and edema: 4+, pitting at knees Lines, Drains, and Airways Line Central Line Quadruple Lumen 11/01/18 1241 Non-tunneled Right Neck 1 day Peripheral 11/01/18 1242 Short Left Antecubital 22 Gauge 1 day Drain Indwelling Urinary Catheter 11/01/18 1243 Cedeno 1 day DATA: Diagnostic tests reviewed for today's visit: Significant Lab Results: As Below and K+ 4, SCr 0.99 Chest X-RAY: . Report pending, improved appearance of right pleural effusion, stable left pleural effusion. Recent Labs 11/03/18 0430 11/02/18 0506 11/01/18 0900 RBC -- 3.15* 3.24* WBC -- 8.67 10.21* HB -- 9.7* 10.0* HCT -- 29.2* 30.8* PLT -- 132* 101* NA 140 140 139 K 4.0 4.1 3.9 CHLOR 108* 108* 113* CO2 24 23 19* BUN 23* 24* 17 CREAT 0.99 1.00 0.97 GLUC 115* 101* 131* CA 8.6 8.5 7.9* ANION 12 13 11 Assessment/Plan CAD/NSTEMI/Aortic valve stenosis s/p CABGx3/ AVR? -POD#5 -Off Kasi?since?10/31 -Medical management with ASA 81, Statin 40, ? -Metoprolol 50 to TID for episode of atrial fibrillation -Pain management with?tylenol/ morphine/ percocet? -Chest tube?removed 10/31 -TLC, poor PIV access -Encourage cough and deep breathing -Vest -Post-operative ECHO completed today, EF 75%, P/M gradients 7/5 DI 0.86 -Plavix 75 mg for ACS, start in AM ? Tachycardia/Afib -Single episode 11/02 late PM -resolved without intervention -Increase metoprolol 50BID -Start Mag Ox ? Anticipated?Acute?Respir atory Insufficiency?s/p CTS? -Improved -2/2 atelectasis/ effusions -Currently on?RA -Encourage cough and deep breathing -Lasix 40 BID PO ? Metabolic Acidosis -Resolved ? DM -A1C 6.1 preop, not previously treated -SSI - Not requiring coverage -Start metformin 500 XL daily and monitor BMP ? Urinary retention -Replaced cedeno 11/01 -Started flomax, but first dose given was 11/02 . . .Changed to HS including 11/02. -Attempt voiding trial 11/03 ? ? Leukocytosis -Resolved -Currently?trending down to 8.67 -Check CBC in AM ? Essential HTN -Currently?attempting to maximize metoprolol 50 TID -Home regimen: HCTZ 12.5 and lisinopril 40 ? Anticipated thrombocytopenia -Resolved ? ? PATRICIA -Continue BPAP/ CPAP per PCCM recommendations ? Morbid Obesity -BMI > 40 -Long-term weight loss goal? ? GI ppx -Protonix ? DVT ppx -SCDs and teds -Restart?Lovenox?>> will need BID dosing with BMI > 40 ? CKD -Baseline SCr1.48 -Today 0.99 ? ? Dispo: PT/OT recs: Home with home health care when stable, family asking to stay til sunday Tests/Labs Ordered: 1. BMP 2. CBC 3. Voiding trial for 11/03 SIGNATURE: David Kumari APRN.CNP PATIENT NAME: Harrison Milligan DATE: November 03, 2018 TIME: 11:07 AM PAGER/CONTACT #: [phone] [phone] For [facility] Unclear why patient came out of unit with Cedeno. Patient seen and course and careplan reviewed with AUTOMATED PROCESS OPERATOR P-as ordered. Normal [facility] Basic Panelon 11-02-2018 Creatinine [Mass/Vol] 1.00 mg/dL Normal 0.67-1.17 [facility] Comment on above: Performed By: #### M AG #### [address] [address] Anion gap [Moles/Vol] 13 mmol/L Normal 8-16 [facility] Comment on above: Performed By: #### M AG #### [address] [address] CO2 [Moles/Vol] 23 mmol/L Normal 21-32 [facility] Comment on above: Performed By: #### M AG #### [address] [address] Glucose [Mass/Vol] 101 mg/dL High 70-99 [facility] Comment on above: Performed By: #### M AG #### [facility] [address] [place], [place] [address] Urea nitrogen [Mass/Vol] 24 mg/dL High 7-18 [facility] Comment on above: Performed By: #### M AG #### [facility] [address] [place], [place] [address] Calcium [Mass/Vol] 8.5 mg/dL Normal 8.5-10.1 [facility] Comment on above: Performed By: #### M AG #### [facility] [address] [place], [place] [address] Chloride [Moles/Vol] 108 mmol/L High 98-107 [facility] Comment on above: Performed By: #### M AG #### [facility] [address] [place], [place] [address] Potassium [Moles/Vol] 4.1 mmol/L Normal 3.5-5.1 [facility] Comment on above: Performed By: #### M AG #### [facility] [address] [place], [place] [address] Sodium [Moles/Vol] 140 mmol/L Normal 136-145 [facility] Comment on above: Performed By: #### M AG #### [facility] [address] [place], [place] [address] Glucose Meteron 11-02-2018 Glucose [Mass/Vol] 102 mg/dL High 70-99 [facility] Comment on above: Result Comment: LOKESH Garcia OTMAXWELL Performed By: #### P T #### [facility] [address] [place], [place] [address] Hemogramon 11-02-2018 Erythrocyte distribution width (RBC) [Ratio] 12.6 % Normal 11.6-14.4 [facility] Comment on above: Performed By: #### M AG #### [facility] [address] [place], [place] [address] Hematocrit (Bld) [Volume fraction] 29.2 % Low 40.1-51.0 [facility] Comment on above: Performed By: #### M AG #### [facility] [address] [place] [address] Hemoglobin (Bld) [Mass/Vol] 9.7 g/dL Low 13.7-17.5 [facility] Comment on above: Performed By: #### M AG #### [facility] [address] [place] [address] MCH (RBC) [Entitic mass] 30.8 pg Normal 25.7-32.2 [facility] Comment on above: Performed By: #### M AG #### [facility] [address] [place] [address] MCHC (RBC) [Mass/Vol] 33.2 % Normal 32.3-36.5 [facility] Comment on above: Performed By: #### M AG #### [facility] [address] [place] [address] MCV (RBC) [Entitic vol] 92.7 fL Normal 83.2-95.6 [facility] Comment on above: Performed By: #### M AG #### [facility] [address] [place] [address] Nucleated RBC (Bld) [#/Vol] 0.03 thou/cmm High 0.00-0.01 [facility] Comment on above: Performed By: #### M AG #### [facility] [address] [place] [address] Nucleated RBC/100 WBC (Bld) [Ratio] 0.3 % High 0.0-0.2 [facility] Comment on above: Performed By: #### M AG #### [facility] [address] [place] [address] Platelet mean volume (Bld) [Entitic vol] 11.6 fL Normal 8.7-12.0 [facility] Comment on above: Performed By: #### M AG #### [facility] [address] [place], [place] [address] Platelets (Bld) [#/Vol] 132 thou/cmm Low 141-365 [facility] Comment on above: Performed By: #### M AG #### [facility] [address] [place], [place] [address] RBC (Bld) [#/Vol] 3.15 mil/cmm Low 4.63-6.08 [facility] Comment on above: Performed By: #### M AG #### [facility] [address] [place], [place] [address] RDW SD 42.3 fl Normal 36.1-45.8 [facility] Comment on above: Performed By: #### M AG #### [facility] [address] [place], [place] [address] WBC (Bld) [#/Vol] 8.67 thou/cmm Normal 4.23-9.07 [facility] Comment on above: Performed By: #### M AG #### [facility] [address] [place], [place] [address] PROGRESSon 11-02-2018 PROGRESS HNO ID: [id number] Author: Malgorzata Mcelod Service: Cardiac Surgery Author Type: Physician Type: Progress Notes Filed: 11/02/2018 1:39 PM Note Text: CARDIOTHORACIC SURGERY POSTOP PROGRESS NOTE SERVICE DATE: 11/02/2018 SERVICE TIME: 11:10 AM Subjective S/P SURGERY: Procedure(s) (LRB): AVR/CABGx3 (#23-mm St Benjy trifecta pericardial bioprosthesis, RAMOS-LAD, SVG-Diag, SVG-OM) DATE OF SURGERY: 10/29/2018 POSTOP DAY #4 LOS: 11 HPI: This is a 78 year old male transferred from [facility] for surgical evaluation of combined aortic valve replacement and bypass surgery. Patient presented to [facility] 10/18/2018 with progressively worsening of shortness of breath with minimal exertion, chest discomfort, confusion, and expressive aphasia. During the emergency room workup, his creatinine was found 1.48, troponin was 0.554, chest x-ray revealed widened mediastinum. CT brain and MRI without contrast showed no evidence of acute or subacute ischemic infarct. His EKG was unremarkable. He was ruled in for non-ST elevation myocardial infarction as his troponin continued to uptrend and peaked at 1.41 the following day. Cardiac workup including heart cath, Echo and KOKI suggested coronary artery disease with 50% left main and 70% LAD lesion; severe aortic valve stenosis. ? Patient reports ongoing shortness of breath for approximately a year now with progressive worsening within the week, even with minimal exertion. He admits chest discomfort, described as tight, pressure like chest pain, radiating down to right arm frequently. Both chest discomfort and shortness of breath resolved with rest. Patient also reports some lightheadedness and episodes of dizzy spell occasionally. He denies diaphoresis, N/V, chest palpitation. He also reports positive of orthopnea, he chronically sleeps in the chair or with his head of the bed elevated at night due to shortness of breath or dyspnea. He denies leg edema, however, he reports constant tightness in both legs chronically. He denies syncope or near syncope, denies arrhythmia. 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 Today, Mr Milligan reports he is doing quite well. Pain is controlled, ambulating well and independently, eating OK, +BM. Still has pacing wires and TLC right neck. Discussed home going plans and recs for home with Home health care. states she wont be ready at home until Sunday. Objective Admission Weight: (!) 140.2 kg (309 lb) BP 130/63 Pulse 75 Temp 36.6 ?C (97.9 ?F) (Oral) Resp 20 Ht 180 cm (5' 10.87) Wt (!) 143.7 kg (316 lb 14.4 oz) SpO2 97% BMI 44.37 kg/m? Body surface area is 2.68 meters squared. Min/Max/Average Temperature AND Blood Pressure: Temp (24hrs), Av.8 ?C (98.2 ?F), Min:36.4 ?C (97.5 ?F), Max:37.3 ?C (99.1 ?F) Systolic (24hrs), Av , Min:98 , Max:136 Diastolic (24hrs), Av, Min:56, Max:72 Intake/Output Summary (Last 24 hours) at 11/02/2018 1106 Last data filed at 11/02/2018 0500 Gross per 24 hour Intake 480 ml Output 1510 ml Net -1030 ml TELEMETRY: normal sinus rhythm PHYSICAL EXAM: General Appearance: well developed, obese and no distress Skin: Midsternal incision dry AND intact., SVG incisions dry AND intact., warm and dry Lungs: clear, decreased breath sounds and respiratory effort: normal Heart: S1, S2 normal and no murmur Peripheral Vascular/Arteries: pulses intact Abdomen: soft, round, non-tender and bowel sounds present Neurologic/Psychiatric: oriented to time, place and person Extremities: normal exam of the extremities and edema: 3+, pitting at knees Lines, Drains, and Airways Line Peripheral 10/29/18 Right Forearm 20 Gauge 4 days Central Line Quadruple Lumen 11/01/18 1241 Non-tunneled Right Neck less than 1 day Peripheral 11/01/18 1242 Short Left Antecubital 22 Gauge less than 1 day Drain Indwelling Urinary Catheter 11/01/18 1243 Cedeno less than 1 day DATA: Diagnostic tests reviewed for today's visit: Significant Lab Results: As aBelow Chest X-RAY: . Report pending, bilateral pleural effusions noted ECHO: CONCLUSIONS: - Technically difficult exam due to suboptimal positioning, post op and unable to tolerate probe. - Exam indication: S/p CABG and AVR - Left ventricular systolic function is hyperdynamic. EF = 75 ? 5% (visual est.) Definity contrast used for endocardial border detection. On very limited views, LV ?cavity appears small with EF 75% - St. Benjy Trifecta prosthetic aortic valve (size #23). The peak gradient is 7 mmHg, the mean gradient is 5 mmHg and the dimensionless valve index is 0.86. Normal gradient across AVR; valve not well seen. Extremely limited study No obvious pericardial effusion - Exam was compared with the prior echocardiographic exam performed on 10/28/2018 Recent Labs 11/02/18 0506 11/01/18 0900 10/31/18 0340 RBC 3.15* 3.24* 3.42* WBC 8.67 10.21* 11.61* HB 9.7* 10.0* 10.6* HCT 29.2* 30.8* 32.0* PLT 132* 101* 89* NA 140 139 138 K 4.1 3.9 4.3 CHLOR 108* 113* 113* CO2 23 19* 18* BUN 24* 17 13 CREAT 1.00 0.97 0.87 GLUC 101* 131* 116* CA 8.5 7.9* 8.2* MG -- -- 2.5 ANION 13 11 11 Assessment/Plan CAD/NSTEMI/Aortic valve stenosis s/p CABGx3/ AVR? -POD#4 -Off Kasi since 10/31 -Medical management with ASA 162, Statin 40, Metoprolol 50 BID -Pain management with?tylenol/ morphine/ percocet? -Chest tube removed 10/31 -TLC -Encourage cough and deep breathing -Vest -Post-operative ECHO completed today, EF 75%, P/M gradients / DI 0.86 -Wires out today -Plavix 75 mg for ACS, start in AM ? Anticipated?Acute?Respir atory Insufficiency?s/p CTS? -Resolved -2/2 atelectasis/ effusions -Currently on?RA -Encourage cough and deep breathing -Lasix 40 BID PO ? Metabolic Acidosis -Slight improvement, 19 today -Likely form mild renal insufficiency probably related to OR/ HD shifts ? DM -A1C 6.1 preop, not previously treated -SSI - Not requiring coverage -Start metformin 500 XL daily and monitor BMP Urinary retention -Replaced cedeno 11/01 -Started flomax, but first dose given was today . . .Changed to HS including tonight. -Attempt voiding trial 11/03 Leukocytosis -Resolved -Currently trending down to 8.67 ? Essential HTN -Currently attempting to maximize metoprolol 50 BID -Home regimen: HCTZ 12.5 and lisinopril 40 ? Anticipated thrombocytopenia -2/2 OR -No transfusion indicated -Trending up ? PATRICIA -Continue BPAP/ CPAP per PCCM recommendations ? Morbid Obesity -BMI > 40 -Long-term weight loss goal? ? GI ppx -Protonix ? DVT ppx -SCDs and teds -Restart Lovenox?>> will need BID dosing with BMI > 40 CKD -Baseline SCr1.48 -Today 1.0 Dispo: PT/OT recs: Home with home health care when stable, family asking to stay til sunday Tests/Labs Ordered: 1. Chest X-ray 2. BMP 3. Void trial to start tomorrow am SIGNATURE: David Kumari APRN.CNP PATIENT NAME: Harrison Milligan DATE: November 02, 2018 TIME: 11:06 AM PAGER/CONTACT #: [phone] ETX [phone] For Justin Patient seen with /sig other, data, course, and careplan reviewed with AUTOMATED PROCESS OPERATOR. P-as ordered. Normal [facility] ALLIED HEALTHon 11-01-2018 ALLIED HEALTH HNO ID: [id number] Author: Ramin Enriquez (Ex Phys) Aby Service: Cardiac Rehab Author Type: Provider Network Manager Type: Allied Health Filed: 11/01/2018 9:52 AM Note Text: CARDIAC REHABILITATION PATIENT EDUCATION PROGRESS NOTE Name: Harrison Milligan Date of Service: 11/01/18 Time of Service: 9:49 AM ASSESSMENT: Risk Factors Identified: Family History Hyperlipidemia Hypertension Obesity RECOMMENDATIONS: Patient interested in Phase II Outpatient Cardiac Rehab: Yes. Facility Preferred: [facility] DIAGNOSIS: Open Heart Surgery: CABG and VALVE Open Heart Surgery Teaching Points: -Basic Anatomy and Disease Process -Personal Modifiable Risk Factor Identification -Activity/Physical Exercise Recommendations -Nutrition/Diet Information -When patient should call provider -Outpatient Cardiac Rehabilitation READINESS TO LEARN:Cognitive Ability: Alert and Oriented Motivation to Learn: Interested Family Support: Unable to assess - Family not present Instruction Provided To: Patient Patient Learns Best By: Individual Instruction, Written Instruction - Hand-outs and Verbal Instruction Factors Affecting Learning: None Physical Limitations Affecting Learning: None LEARNING RESPONSE: Method Of Instruction: Teach Back method used and patient able to verbalize understanding of education given. Individual instruction Written instruction - handouts Verbal instruction Patient/Family Response: Verbalizes understanding of: cardiac risk factors, incision care, lifting restrictions, home walking program and cardiac rehab. Follow-up Plan: No further educational needs identified at this time. Instructional Aids Used: Anatomical Model/Drawing Cardiac Rehabilitation Brochure List of [facility] Cardiac Rehab Programs Signature: Ramin Badillo, ACSM-EP-C Pager: [phone] Date: November 01, 2018 Time: 9:49 AM Normal [facility] Basic Panelon 11-01-2018 Creatinine [Mass/Vol] 0.97 mg/dL Normal 0.67-1.17 [facility] Comment on above: Performed By: #### M AG #### [place] [address] Urea nitrogen [Mass/Vol] 17 mg/dL Normal 7-18 [facility] Comment on above: Performed By: #### M AG #### [facility] [address] [place] [address] Anion gap [Moles/Vol] 11 mmol/L Normal 8-16 [facility] Comment on above: Performed By: #### M AG #### [facility] [address] [place], [place] [address] Calcium [Mass/Vol] 7.9 mg/dL Low 8.5-10.1 [facility] Comment on above: Performed By: #### M AG #### [facility] [address] [place] [address] CO2 [Moles/Vol] 19 mmol/L Low 21-32 [facility] Comment on above: Performed By: #### M AG #### [facility] [address] [place] [address] Glucose [Mass/Vol] 131 mg/dL High 70-99 [facility] Comment on above: Performed By: #### M AG #### [facility] [address] [place] [address] Chloride [Moles/Vol] 113 mmol/L High 98-107 [facility] Comment on above: Performed By: #### M AG #### [facility] [address] [place] [address] Potassium [Moles/Vol] 3.9 mmol/L Normal 3.5-5.1 [facility] Comment on above: Performed By: #### M AG #### [place] [address] Sodium [Moles/Vol] 139 mmol/L Normal 136-145 [facility] Comment on above: Performed By: #### M AG #### [place] [address] CASE MANAGEMon 11-01-2018 CASE MANAGEM HNO ID: [id number] Author: Jill (Rn) LOKESH Wang Service: Care Management Author Type: Registered Nurse Type: Care Mgt Progress Note Filed: 11/01/2018 9:05 AM Note Text: CARE MANAGEMENT PROGRESS NOTE SERVICE DATE: 11/01/2018 SERVICE TIME: 9:03a LOS: 10 days Needs Prior to Discharge: Home Care Order;Other: See Comment(home PT/OT) S/p CABG/valve POD 3 amb in unit, slow progress. Disch planis home with [facility], home PT/OT. SIGNATURE: Jill Wang RN PATIENT NAME: Harrison Milligan DATE: November 01, 2018 TIME: 9:03 AM PAGER/CONTACT #: [phone] Normal [facility] Hemogramon 11-01-2018 Erythrocyte distribution width (RBC) [Ratio] 12.5 % Normal 11.6-14.4 [facility] Comment on above: Performed By: #### M AG #### [place] [address] Hematocrit (Bld) [Volume fraction] 30.8 % Low 40.1-51.0 [facility] Comment on above: Performed By: #### M AG #### [place] [address] Hemoglobin (Bld) [Mass/Vol] 10.0 g/dL Low 13.7-17.5 [facility] Comment on above: Performed By: #### M AG #### [place] [address] MCH (RBC) [Entitic mass] 30.9 pg Normal 25.7-32.2 [facility] Comment on above: Performed By: #### M AG #### [place] [address] MCHC (RBC) [Mass/Vol] 32.5 % Normal 32.3-36.5 [facility] Comment on above: Performed By: #### M AG #### [place] [address] MCV (RBC) [Entitic vol] 95.1 fL Normal 83.2-95.6 [facility] Comment on above: Performed By: #### M AG #### [place] [address] Platelet mean volume (Bld) [Entitic vol] 11.4 fL Normal 8.7-12.0 [facility] Comment on above: Performed By: #### M AG #### [facility] [address] [place], [place] [address] Platelets (Bld) [#/Vol] 101 thou/cmm Low 141-365 [facility] Comment on above: Performed By: #### M AG #### [facility] [address] [place] [address] RBC (Bld) [#/Vol] 3.24 mil/cmm Low 4.63-6.08 [facility] Comment on above: Performed By: #### M AG #### [facility] [address] [place] [address] RDW SD 43.5 fl Normal 36.1-45.8 [facility] Comment on above: Performed By: #### M AG #### [facility] [address] [place] [address] WBC (Bld) [#/Vol] 10.21 thou/cmm High 4.23-9.07 [facility] Comment on above: Performed By: #### M AG #### [facility] [address] [place] [address] NURSING PROGon 11-01-2018 NURSING PROG HNO ID: [id number] Author: Pari Marley Service: ? Author Type: Nurse Practitioner Type: Nursing Progress Note Filed: 03/31/2019 4:50 PM Note Text: Pt transferred from 3230 to 4235 in stable condition belongings with patient. Normal [facility] NUTRITIONon 11-01-2018 NUTRITION HNO ID: [id number] Author: Paloma Grullon RD Service: Nutrition Therapy Author Type: Registered Dietitian Type: Nutrition Filed: 11/01/2018 11:42 AM Note Text: NUTRITION THERAPY PATIENT EDUCATION SERVICE DATE: 11/01/2018 SERVICE TIME: 11:41 AM TOPIC: Cardiac Rehab: Therapeutic Lifestyle Changes (TLC) Diagnosis: ADULT: Coronary Artery Disease READINESS TO LEARN Cognitive Ability: Alert and oriented Motivation to Learn: Interested Family Support: Unable to assess - Family not present Instruction Provided to: Patient Patient Learns Best by: Multiple Methods Factors Affecting Learning: None Physical Limitations Affecting Learning: None LEARNING RESPONSE Patient / Family Response: Verbalizes understanding of Heart Healthy (CTS) Diet: Consuming 30% or less calories from fat, of which no more than 7% are saturated fat calories; no more than 200 mg cholesterol/day; and 2 grams of sodium Mediterranean Diet Guidelines Method of Instruction: Written instruction - handouts Verbal instruction Instructional Aids Used: Mediterranean Diet Supplemental Material Provided to Patient: None Follow-Up Plan: Contact information given. Referral (Recommendation): Primary Care Provider MNT Billing: Initial Assess/15 min 2 units SIGNATURE: Paloma Grullon RD, [place] PATIENT NAME: Harrison Milligan DATE: November 01, 2018 TIME: 11:41 AM PAGER: [phone] Normal [facility] PROGRESSon 11-01-2018 PROGRESS HNO ID: [id number] Author: Marcella Bustos Service: Pulmonary Disease Author Type: Physician Type: Progress Notes Filed: 11/01/2018 12:44 PM Note Text: MICU - PROGRESS NOTE SERVICE DATE: 11/01/2018 Admission Date: 10/22/2018 AGE: [id number] year old LOS: 10 days REASON FOR ICU ADMISSION: s/p CABG and AVR Subjective HISTORY OF PRESENT ILLNESS: 78 yo WM presented as inpatient transfer from [facility], where he presented w/ WOLF, found to have NSTEMI. Echo showing severe and cardiac cath confirmed sig LAD stenosis. Thus underwent the following on 10/29/18 ? PROCEDURES AND ANESTHESIA: Procedure(s) and Anesthesia Type: * AVR W/ CARDIOPULMONARY BYPASS W/ PROSTHETIC OTHER THAN HOMOGRAFT/ STENTLESS TISSUE VALVE - General * BYPASS GRAFT ARTERY CORONARY ON-PUMP THREE CORONARY ARTERIAL GRAFTS - General Great Saphenous Vein, Left , Percutaneous endoscopic Internal Thoracic Artery, Left , Open CABG x 3 (ramos-lad; svg-diag; svg-om; evh); AVR (23 Trifecta pericardial) Spirometry 10/24/18 suggestive of possible moderate restriction-personally reviewed. No lung volumes to confirm. Noted pt was difficult intubation w/ MP III Successfully extubated on 10/29/18. OVERNIGHT EVENTS: Tried CPAP-does not like it I don't like any tubes or lines Does not want a PSG as outpatient Now on RA Denies SOB or cough PAST MEDICAL HISTORY Diagnosis Date - Cerebrovascular disease 10/22/2018 - High blood pressure - HLD (hyperlipidemia) - Stroke (HCC) Objective VITAL SIGNS (last 24hrs min/max): Temp Av.7 ?C (98.1 ?F) Min: 36.6 ?C (97.9 ?F) Max: 36.8 ?C (98.2 ?F) Pulse Av Min: 62 Max: 86 No data recorded Cuff BP Min: 103/52 Max: 148/62 Pain Level: 0 Vital signs reviewed. BP 107/65 Pulse 98 Temp (Src) 98.8 (Temporal Artery) Resp 8 Ht 5' 10.866 (1.80m) Wt 329 lb 12.9 oz (149.6kg) SpO2 94% BMI 46.17 kg/(m2). Temp (24hrs), Av.9 ?C (98.5 ?F), Min:36.8 ?C (98.2 ?F), Max:37.1 ?C (98.8 ?F) NET FLUID BALANCE Intake/Output Summary (Last 24 hours) at 11/01/2018 1241 Last data filed at 11/01/2018 1200 Gross per 24 hour Intake 360 ml Output 1425 ml Net -1065 ml MEDICATIONS Current Facility-Administered Medications Medication Dose Route Frequency - potassium chloride ER 20 mEq tab(s) (K-DUR, KLOR-CON) 20 mEq ORAL TID after MEALS - metoprolol tartrate (short acting) 25 mg tab(s) (LOPRESSOR) 25 mg ORAL ONCE - enoxaparin 40 mg injection (LOVENOX) 40 mg SUBCUTANEOUS q 12 HR - dextrose 40 % 15 g 15 g ORAL PRN Or - glucagon 1 mg injection (GLUCAGEN) 1 mg INTRAMUSCULAR PRN Or - dextrose 50% in water 25 mL syringe 12.5 g INTRAVENOUS PRN - insulin lispro pen (rapid acting) (HumaLOG KWIKPEN) SUBCUTANEOUS w MEALS - senna-docusate 8.6-50 mg 1 tablet (SENNA-S) 1 tablet ORAL BID - polyethylene glycol 3350 17 g packet (MIRALAX, GLYCOLAX) 17 g ORAL DAILY - pantoprazole DR 40 mg tab(s) (PROTONIX) 40 mg ORAL DAILY (6 AM) - atorvastatin 40 mg tab(s) (LIPITOR) 40 mg ORAL AT BEDTIME - morphine 2-4 mg injection 2-4 mg INTRAVENOUS q 1 H PRN - ipratropium-albuterol 3 mL nebulizer solution (DUONEB) 3 mL INHALATION q 4 H while awake - aspirin 162 mg chewable tab(s) 162 mg ORAL DAILY - magnesium sulfate in water 2 g in sterile water 50 ml 2 g INTRAVENOUS PRN(NO DISPENSE) - acetaminophen 650 mg tab(s) (TYLENOL) 650 mg ORAL q 6 H PRN - ondansetron (PF) 4 mg injection (ZOFRAN) 4 mg INTRAVENOUS q 6 H PRN - oxyCODONE-acetaminophen 5-325 mg 1-2 tablet (PERCOCET) 1-2 tablet ORAL q 4 H PRN - NaCl 0.9% 2-10 mL 2-10 mL INTRAVENOUS q 12 H - albuterol 2.5 mg /3 mL (0.083 %) 2.5 mg (PROVENTIL) 2.5 mg INHALATION q 4 H PRN Respiratory/Nursing Documentation: O2 Therapy: Room Air (11/01/18 1200) Invasive Ventilator Mode: Synchronized Intermittent Mandatory Ventilation;Pressure Support Ventilation (10/29/181922) Set Ventilator Respiratory Rate (BPM): 12 (10/29/181922) Total Respiratory Rate (BPM): 20 (10/29/181922) Tidal Volume Set (mL): 550 (10/29/181922) Exhaled Tidal Volume (mL): 540 (10/29/181922) Minute Volume (L): 11.1 (10/29/181922) Peak Inspiratory Pressure (cm H2O): 17 (10/29/181922) PEEP/CPAP (cm H2O): 5 (10/29/182019) Lines, Drains, and Airways Line Peripheral 10/29/18 Right Forearm 20 Gauge 3 days Central Line Quadruple Lumen 11/01/18 1241 Non-tunneled Right Neck less than 1 day PHYSICAL EXAMINATION: Vitals-reviewed and noted above. Lines/Drains in place as noted above. Sitting up in chair, AANDO x3 Morbidly obese Thick large neck RRR, Sternotomy incision Mildly diminished at bases on RA Ab soft, BS+, NT/ND No edema Peripheral pulses present DATA: All data reviewed, including, but not limited to, data noted below. All diagnostic tests, including labs/specimens and imaging, were personally reviewed by me with my marmolejo findings noted above and/or below. MICRO: CXR FINDINGS: 10/31- Stable small b/l pleural effusions 10/30- small b/l pleural effusions and bibasilar atelectasis 10/29- Low lung volumes w/ bibasilar atelectasis OTHER DIAGNOSTICS/ IMAGING: Impression/Recommendatio ns Critical Care Documentation: The patient has the following organ/system impairment(s): # CAD w/ recent NSTEMI; s/p CABG x 3v # Severe s/p AVR w/ prosthetic valve # Anticipated acute post-op resp insufficiency-s/p extubation on 10/29 as expected # Anticipated post-op hypotension # Underlying PATRICIA; possible OHS - refuses CPAP # Likely restrictive ventilation in s/o morbid obesity # Morbid obesity # Difficult intubation noted PLAN: - Bronchodilators prn - D/c CPAP - pt refusing I discussed the pathophysiology of obstructive sleep apnea, the risks/consequences of leaving it untreated (including, but not limited to, an increased risk of heart attack, increased risk of stroke, worsening diabetes, worsening hypertension, worsening heart failure, increased risk of heart rhythm problems, and an increased risk of sudden ), and its treatment in detail with the patient and patient's family. Despite this discussion and understanding all of the above, the patient declines CPAP/BiPAP therapy at this time though doing so may lead to significant morbidity and increased risk of early mortality, which the patient fully understands. - Encouraged IS - OOB to chair as kelin - Perioperative Vancomycin completed for AVR - Wean FiO2 to goal sat >88-92% - BG control per endocrine - Rest per thoracic surgery - Pulmonary to sign off once transferred out of ICU Code Status: Full Discussed with staff and patient. SIGNATURE: Marcella Bustos MD [facility] Department of Pulmonary and Critical Care Medicine SERVICE DATE: November 01, 2018 SERVICE TIME: 10:00 AM Normal [facility] PROGRESS HNO ID: [id number] Author: Héctor Mendoza (Pa) Service: Cardiovascular Surgery Author Type: Physician Rougher Machine Operator Type: Progress Notes Filed: 11/01/2018 11:49 AM Note Text: CARDIOTHORACIC SURGERY POSTOP PROGRESS NOTE SERVICE DATE: 11/01/2018 SERVICE TIME: 11:19 AM Subjective S/P SURGERY: Procedure(s) (LRB): AVR W/ CARDIOPULMONARY BYPASS W/ PROSTHETIC OTHER THAN HOMOGRAFT/ STENTLESS TISSUE VALVE (N/A) BYPASS GRAFT ARTERY CORONARY ON-PUMP THREE CORONARY ARTERIAL GRAFTS (N/A) DATE OF SURGERY: 10/29/2018 POSTOP DAY #3 LOS: 10 INTERVAL EVENTS / PERTINENT ROS: Patient seen and examined. Pt tachy while ambulating this AM. Resting HR noted to be in 90's with plenty of BP to increase BB. Patient reports + flatus, no BM. Objective Admission Weight: (!) 140.2 kg (309 lb) BP 129/70 Pulse 88 Temp 37.1 ?C (98.8 ?F) Resp 25 Ht 180 cm (5' 10.87) Wt (!) 149.6 kg (329 lb 12.9 oz) SpO2 95% BMI 46.17 kg/m? Body surface area is 2.73 meters squared. Min/Max/Average Temperature AND Blood Pressure: Temp (24hrs), Av.9 ?C (98.5 ?F), Min:36.8 ?C (98.2 ?F), Max:37.1 ?C (98.8 ?F) Systolic (24hrs), Av , Min:96 , Max:140 Diastolic (24hrs), Av, Min:48, Max:114 Intake/Output Summary (Last 24 hours) at 11/01/2018 1119 Last data filed at 11/01/2018 0800 Gross per 24 hour Intake 360 ml Output 1425 ml Net -1065 ml TELEMETRY: normal sinus rhythm PHYSICAL EXAM: General Appearance: Obese male in bed-alert. NAD. Skin: Midsternal incision dry AND intact. and SVG incisions dry AND intact. Neck: RIJ intact. Thick. Lungs: Diminished breath sounds BL. No wheeze or crackles. Normal respiratory effort. Heart: Distant heart sounds. No appreciable murmur. Regular rate/ rhythm Peripheral Vascular/Arteries: dorsalis pedis 2+ and radial 2+ Abdomen: Obese. Soft NTTP. BS hyperactive with tinkling. Neurologic/Psychiatric: Alert. NFD Extremities: edema: Trace Lines, Drains, and Airways Line Central Line Quadruple Lumen 10/29/18 Non-tunneled Right Neck 3 days Peripheral 10/29/18 Right Forearm 20 Gauge 3 days DATA: Diagnostic tests reviewed for today's visit: Chest X-RAY: slight improvement RLL Recent Labs 11/01/18 0900 10/31/18 0340 10/30/18 0500 10/29/18 1615 RBC 3.24* 3.42* 4.04* 4.72 WBC 10.21* 11.61* 12.16* 15.67* HB 10.0* 10.6* 12.5* 14.6 HCT 30.8* 32.0* 37.4* 43.7 PLT 101* 89* 112* 127* INR -- -- -- 1.14 APTT -- -- -- 28.8 NA 139 138 142 141 K 3.9 4.3 4.7 5.0 CHLOR 113* 113* 116* 113* CO2 19* 18* 18* 21 BUN 17 13 17 21* CREAT 0.97 0.87 1.05 1.11 GLUC 131* 116* 129* 138* CA 7.9* 8.2* 7.8* 8.3* MG -- 2.5 1.9 2.4 ANION 11 11 13 12 Recent Labs 10/29/18 2105 10/29/18 1615 10/29/18 1401 10/29/18 1336 10/29/18 1312 PH 7.327* 7.290* 7.348* 7.357 7.365 PCO2 37.3 45.5* -- -- -- PO2 73.1* 80.7* 82.0 378.0* 285.0* BE -5.9* -5.0* -- -- -- HCO3 -- -- 19.9* 24.3 23.7 Assessment/Plan CAD/NSTEMI/Aortic valve stenosis s/p CABGx3/ AVR? -POD#3 -Off Kasi since 10/31 -Medical management with ASA 162, Statin 40, Metoprolol 12.5 >> increased to 25 this AM >> will further increase to 50 -Pain management with tylenol/ morphine/ percocet -Chest tube removed 10/31 -Cordis to be exchanged to TLC v possible PIV by specials -Encourage cough and deep breathing -Vest -Post-operative ECHO completed today, results pending -Future needs: Plavix 75 mg for ACS ? Anticipated?Acute?Respir atory Insufficiency?s/p CTS? -Resolved -2/2 atelectasis/ effusions -Currently on RA -Encourage cough and deep breathing -Lasix 60 mg PO (replacing K+ 20 mEq TID) ? Metabolic Acidosis -Slight improvement, 19 today -Likely form mild renal insufficiency probably related to OR/ HD shifts ? Leukocytosis -Likely reactive -Currently trending down to 10.21 ? Essential HTN -Currently attempting to maximize BB -Defer home HTN meds ? Anticipated thrombocytopenia -2/2 OR -No transfusion indicated -Trending up ? PATRICIA -Continue BPAP/ CPAP per PCCM recommendations ? Morbid Obesity -BMI > 40 -Long-term weight loss goal ? GI ppx -Protonix ? DVT ppx -SCDs and teds -Restart Lovenox >> will need BID dosing with BMI > [address] Mcleod. Plan shared with LOKESH Islas. Tests/Labs Ordered: 1. CBC 2. BMP 3. CXR SIGNATURE: Héctor Mendoza PA-C PATIENT NAME: Harrison Milligan DATE: November 01, 2018 TIME: 11:19 AM PAGER/CONTACT #: [phone] Normal [facility] THERAPY NTon 11-01-2018 THERAPY NT HNO ID: [id number] Author: Juanjose (Pt) Redd Service: Physical Therapy Author Type: Physical Therapist Type: Therapy (PT/OT/Speech/Resp) Filed: 11/01/2018 11:49 AM Note Text: Physical Therapy Treatment SERVICE DATE: 11/01/2018 SERVICE TIME: 1120 to 1143 ROOM: [place] [address] Recommended Discharge Disposition: Home PT Recommended Discharge Disposition Comments: Working toward home with family assist at d/c pending ongoing progress Anticipated Discharge Needs: Physical Assist at Home;Supervision at Home Physical Assist at Home for: Cleaning;Laundry;Meals;S elf Care;Shopping;Transporta tion Supervision at Home due to: Other: See Comment(recent CABG) PT Recommendations to Nursing: Ambulate with device;To bathroom;In halls;With assist of 1 person Device: Wheeled Walker PT 6 Clicks Score: 19 Precautions/Activity Restrictions: Sternal Isolation Type: None ASSESSMENT : Patient progressing with ambulation distance tolerated. Still with dyspnea and requires 2-3 standing rest breaks and about 3 mins to recover upon sitting. Pt able to transfer with less assist and following his precautions. Home with family appropriate from our standpoint. Patient Disposition at Start of Session: Supine in Bed;Call Gil in Reach Patient Disposition at End of Session: OOB in Chair;Call Gil in Reach Tolerance Limited By Physiologic Response(dyspnea) Physical Therapy Problem List: Education Deficit;Pain;Impaired Self Care;Decreased Activity Tolerance;Decreased Range Of Motion;Decreased Strength;Functional Mobility Impairment Patient /Caregiver Goals: Walk;Go Home(if possible) Goals for Plan of Care: Able to perform HEP with: Independent Rolling with: Verbal Cues Only Transfer supine to/from sit with: Contact Guard Assistance Transfer sit to/from stand with: Contact Guard Assistance Ambulate with: Contact Guard Assistance Distance: 100(intervals) Device: Wheeled Walker Progress Toward Goals: Progressing as expected Rehab Potential: Good PLAN: Treatment Frequency (times per week): 5(2-5) Current admission Treatment Interventions: Education;Strengthening; Functional Mobility Training Plan of Care developed with: Patient TREATMENT INTERVENTIONS: Therapy Diagnosis: Reduced mobility-other;Muscle Weakness (generalized);Abnormalit ies of gait and mobility-other;General symptoms and signs-other Interventions Provided: Therapeutic Exercise (71378);Therapeutic Activity (39405) Therapeutic Exercise (74944) Treatment Minutes: 8 1 unit Skilled Intervention(s): Education in bilateral LE ROM and strength exs 10 reps sittting and supine. Therapeutic Activity (52339) Treatment Minutes: 15 1 unit Skilled Intervention(s): Instructed patient in log roll technique Instructed patient in sit to supine using safe, effective technique Education with sternal precautions and practiced sit to stand technique Total Timed Code Treatment Minutes: 23 Total Treatment Time (minutes): 23 SUBJECTIVE: Current Hospital Course: Chart reviewed and no significant medical updates relevant to therapy were noted Reason for Physical Therapy Consult : eval Relevant Past Medical History: Morbid obesity, SOB with minimal exertion, Patient Report: Pt feeling better and willing to participate. Home Environment Patient Lives With: Spouse Assistance Available: 24 Hour Entry To Home: Stairs;With Rail Number Of Stairs Into Home: 3 Number Of Stairs To Bed/Bath: 0 Tub/Shower Type: walk-in Equipment Owned: Cane;Crutch(es);Wheelcha ir Prior Functional Level: Within Functional Limits Prior Functional Level Comments: very independent, walks without device. 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 Balance: Dynamic Standing Dynamic Standing Balance: Contact Guard Assistance JH-HLM: 7: Walk 25 feet or more Please see discipline specific clinical documentation flowsheet for complete details for this therapy evaluation/treatment. SIGNATURE: Juanjose Rainey PT PATIENT NAME: Harrison Milligan DATE: November 01, 2018 TIME: 11:43 AM Normal [facility] Basic Panelon 10-31-2018 Creatinine [Mass/Vol] 0.87 mg/dL Normal 0.67-1.17 [facility] Comment on above: Performed By: #### P 8 #### [facility] [address] [place], [place] [address] Anion gap [Moles/Vol] 11 mmol/L Normal 8-16 [facility] Comment on above: Performed By: #### P 8 #### [facility] [address] [place], [place] [address] CO2 [Moles/Vol] 18 mmol/L Low 21-32 [facility] Comment on above: Performed By: #### P 8 #### [facility] [address] [place], [place] [address] Urea nitrogen [Mass/Vol] 13 mg/dL Normal 7-18 [facility] Comment on above: Performed By: #### P 8 #### [facility] [address] [place], [place] [address] Calcium [Mass/Vol] 8.2 mg/dL Low 8.5-10.1 [facility] Comment on above: Performed By: #### P 8 #### [facility] [address] [place], [place] [address] Glucose [Mass/Vol] 116 mg/dL High 70-99 [facility] Comment on above: Performed By: #### P 8 #### [facility] [address] [place], [place] [address] Chloride [Moles/Vol] 113 mmol/L High 98-107 [facility] Comment on above: Performed By: #### P 8 #### [facility] [address] [place] [address] Potassium [Moles/Vol] 4.3 mmol/L Normal 3.5-5.1 [facility] Comment on above: Performed By: #### P 8 #### [facility] [address] [place] [address] Sodium [Moles/Vol] 138 mmol/L Normal 136-145 [facility] Comment on above: Performed By: #### P 8 #### [facility] [address] [place] [address] Hemogramon 10-31-2018 Erythrocyte distribution width (RBC) [Ratio] 12.5 % Normal 11.6-14.4 [facility] Comment on above: Performed By: #### M AG #### [place] [address] Hematocrit (Bld) [Volume fraction] 32.0 % Low 40.1-51.0 [facility] Comment on above: Performed By: #### M AG #### [place] [address] Hemoglobin (Bld) [Mass/Vol] 10.6 g/dL Low 13.7-17.5 [facility] Comment on above: Performed By: #### M AG #### [place] [address] MCH (RBC) [Entitic mass] 31.0 pg Normal 25.7-32.2 [facility] Comment on above: Performed By: #### M AG #### [place] [address] MCHC (RBC) [Mass/Vol] 33.1 % Normal 32.3-36.5 [facility] Comment on above: Performed By: #### M AG #### [place] [address] MCV (RBC) [Entitic vol] 93.6 fL Normal 83.2-95.6 [facility] Comment on above: Performed By: #### M AG #### [place] [address] Platelet mean volume (Bld) [Entitic vol] 12.0 fL Normal 8.7-12.0 [facility] Comment on above: Performed By: #### M AG #### [facility] [address] [place] [address] Platelets (Bld) [#/Vol] 89 thou/cmm Low 141-365 [facility] Comment on above: Result Comment: Smea r scanned tech agrees with platelet count Performed By: #### M AG #### [facility] [address] [place] [address] RBC (Bld) [#/Vol] 3.42 mil/cmm Low 4.63-6.08 [facility] Comment on above: Performed By: #### M AG #### [place] [address] RDW SD 42.7 fl Normal 36.1-45.8 [facility] Comment on above: Performed By: #### M AG #### [facility] [address] [place] [address] WBC (Bld) [#/Vol] 11.61 thou/cmm High 4.23-9.07 [facility] Comment on above: Performed By: #### M AG #### [place] [address] Magnesium Bloodon 10-31-2018 Magnesium [Mass/Vol] 2.5 mg/dL Normal 1.6-2.6 [facility] Comment on above: Performed By: #### M AG #### [place] [address] PROGRESSon 10-31-2018 PROGRESS HNO ID: [id number] Author: Héctor Mendoza (Pa) Service: Cardiovascular Surgery Author Type: Physician Rougher Machine Operator Type: Progress Notes Filed: 10/31/2018 12:17 PM Note Text: CARDIOTHORACIC SURGERY POSTOP PROGRESS NOTE SERVICE DATE: 10/31/2018 SERVICE TIME: 11:36 AM Subjective S/P SURGERY: Procedure(s) (LRB): AVR W/ CARDIOPULMONARY BYPASS W/ PROSTHETIC OTHER THAN HOMOGRAFT/ STENTLESS TISSUE VALVE (N/A) BYPASS GRAFT ARTERY CORONARY ON-PUMP THREE CORONARY ARTERIAL GRAFTS (N/A) DATE OF SURGERY: 10/29/2018 POSTOP DAY #2 LOS: 9 INTERVAL EVENTS / PERTINENT ROS: Patient seen and examined. Pain tolerable. Poor appetite. No flatus. Breathing stable. Objective Admission Weight: (!) 140.2 kg (309 lb) BP 116/63 Pulse 81 Temp 36.5 ?C (97.7 ?F) Resp 16 Ht 180 cm (5' 10.87) Wt (!) 146.2 kg (322 lb 5 oz) SpO2 97% BMI 45.12 kg/m? Body surface area is 2.7 meters squared. Min/Max/Average Temperature AND Blood Pressure: Temp (24hrs), Av.7 ?C (98.1 ?F), Min:36.4 ?C (97.5 ?F), Max:37.4 ?C (99.3 ?F) Systolic (24hrs), Av , Min:108 , Max:116 Diastolic (24hrs), Av, Min:57, Max:63 Intake/Output Summary (Last 24 hours) at 10/31/2018 1136 Last data filed at 10/31/2018 0959 Gross per 24 hour Intake 2861 ml Output 1785 ml Net 1076 ml TELEMETRY: normal sinus rhythm PHYSICAL EXAM: General Appearance: Obese male in chair-chest tubes being removed. Appears anxious. Skin: Midsternal incision dry AND intact. and SVG incisions dry AND intact. Neck: RIJ intact. Thick. Lungs: Tachypneic. Diminished breath sounds BL. No wheeze or crackles. Increased respiratory effort. Heart: Distant heart sounds. No appreciable murmur. Regular rate/ rhythm Peripheral Vascular/Arteries: dorsalis pedis 2+ and radial 2+ Abdomen: Obese. Soft NTTP. BS hypoactive. Neurologic/Psychiatric: Alert. Extremities: edema: Trace Lines, Drains, and Airways Line Peripheral 10/21/18 0700 Admission to Hospital Short Right Wrist 22 Gauge 10 days Central Line Quadruple Lumen 10/29/18 Non-tunneled Right Neck 2 days Peripheral 10/29/18 Right Forearm 20 Gauge 2 days Drain Chest Tube 10/29/18 Mediastinal 28 Fr 2 days Chest Tube 10/29/18 Mediastinal 32 Fr 2 days DATA: Diagnostic tests reviewed for today's visit: CXR: stable bilateral air space disease Recent Labs 10/31/18 0340 10/30/18 0500 10/29/18 1615 RBC 3.42* 4.04* 4.72 WBC 11.61* 12.16* 15.67* HB 10.6* 12.5* 14.6 HCT 32.0* 37.4* 43.7 PLT 89* 112* 127* INR -- -- 1.14 APTT -- -- 28.8 NA 138 142 141 K 4.3 4.7 5.0 CHLOR 113* 116* 113* CO2 18* 18* 21 BUN 13 17 21* CREAT 0.87 1.05 1.11 GLUC 116* 129* 138* CA 8.2* 7.8* 8.3* MG 2.5 1.9 2.4 ANION 11 13 12 Recent Labs 10/29/18 2105 10/29/18 1615 10/29/18 1401 10/29/18 1336 10/29/18 1312 PH 7.327* 7.290* 7.348* 7.357 7.365 PCO2 37.3 45.5* -- -- -- PO2 73.1* 80.7* 82.0 378.0* 285.0* BE -5.9* -5.0* -- -- -- HCO3 -- -- 19.9* 24.3 23.7 Assessment/Plan CAD/NSTEMI/Aortic valve stenosis s/p CABGx3/ AVR -POD 2 -Off Kasi AM of 10/31 -Medical management with ASA 162, Statin 40 -Start metoprolol 12.5 at 1400 -Pain management with tylenol/ morphine/ percocet -Monitor chest tube output -Remove cedeno and cordis -Encourage cough and deep breathing -Vest -Remove chest tubes -Future needs: Plavix 75 mg for ACS ECHO (ordered for 11/01) ? Anticipated Acute Respiratory Insufficiency s/p CTS -2/2 atelectasis/ effusions -Currently on 2 L NC -Continue to wean O2 -Encourage cough and deep breathing ? Metabolic Acidosis -Slightly worsening in comparison to yesterday -HCO3 currently 18 -Likely form mild renal insufficiency probably related to OR/ HD shifts -Monitor respiratory and mental status closley -VBG PRN Leukocytosis -Likely reactive -Currently 12.16 -Continue to monitor ? Essential HTN -Currently hold home HTN meds -Still on pressors ? Anticipated thrombocytopenia -2/2 OR -No transfusion indicated PATRICIA -Continue BPAP/ CPAP per PCCM recommendations Morbid Obesity -BMI > 40 -Long-term weight loss goal GI ppx -Protonix ? DVT ppx -SCDs and teds -Lovenox Discontinued 2/2 decreasing platelet count Tests/Labs Ordered: 1. BMP 2. CBC 3. CXR Discussed with Dr. Helms and CVICU team. SIGNATURE: Héctor Mendoza PA-C PATIENT NAME: Harrison Milligan DATE: October 31, 2018 TIME: 11:36 AM PAGER/CONTACT #: [phone] Normal [facility] PROGRESS HNO ID: [id number] Author: Marcella Bustos Service: Pulmonary Disease Author Type: Physician Type: Progress Notes Filed: 10/31/2018 5:43 PM Note Text: MICU - PROGRESS NOTE SERVICE DATE: 10/31/2018 Admission Date: 10/22/2018 AGE: [id number] year old LOS: 9 days REASON FOR ICU ADMISSION: s/p CABG and AVR Subjective HISTORY OF PRESENT ILLNESS: 78 yo WM presented as inpatient transfer from [facility], where he presented w/ WOLF, found to have NSTEMI. Echo showing severe and cardiac cath confirmed sig LAD stenosis. Thus underwent the following on 10/29/18 ? PROCEDURES AND ANESTHESIA: Procedure(s) and Anesthesia Type: * AVR W/ CARDIOPULMONARY BYPASS W/ PROSTHETIC OTHER THAN HOMOGRAFT/ STENTLESS TISSUE VALVE - General * BYPASS GRAFT ARTERY CORONARY ON-PUMP THREE CORONARY ARTERIAL GRAFTS - General Great Saphenous Vein, Left , Percutaneous endoscopic Internal Thoracic Artery, Left , Open CABG x 3 (ramos-lad; svg-diag; svg-om; evh); AVR (23 Trifecta pericardial) Spirometry 10/24/18 suggestive of possible moderate restriction-personally reviewed. No lung volumes to confirm. Noted pt was difficult intubation w/ MP III Successfully extubated on 10/29/18. OVERNIGHT EVENTS: Off pressors Did not get CPAP at night Denies SOB. Denies cough. Mild chest soreness. Afebrile. PAST MEDICAL HISTORY Diagnosis Date - Cerebrovascular disease 10/22/2018 - High blood pressure - HLD (hyperlipidemia) - Stroke (HCC) Objective VITAL SIGNS (last 24hrs min/max): Temp Av.7 ?C (98.1 ?F) Min: 36.6 ?C (97.9 ?F) Max: 36.8 ?C (98.2 ?F) Pulse Av Min: 62 Max: 86 No data recorded Cuff BP Min: 103/52 Max: 148/62 Pain Level: 0 Vital signs reviewed. BP 148/62 Pulse 93 Temp (Src) 97.5 (Temporal) Resp 28 Ht 5' 10.866 (1.80m) Wt 322 lb 5 oz (146.2kg) SpO2 96% BMI 45.12 kg/(m2). Temp (24hrs), Av.9 ?C (98.4 ?F), Min:36.4 ?C (97.5 ?F), Max:37.4 ?C (99.3 ?F) NET FLUID BALANCE Intake/Output Summary (Last 24 hours) at 10/31/2018 0921 Last data filed at 10/31/2018 0600 Gross per 24 hour Intake 3821 ml Output 1900 ml Net 1921 ml MEDICATIONS Current Facility-Administered Medications Medication Dose Route Frequency - senna-docusate 8.6-50 mg 1 tablet (SENNA-S) 1 tablet ORAL BID - polyethylene glycol 3350 17 g packet (MIRALAX, GLYCOLAX) 17 g ORAL DAILY - pantoprazole DR 40 mg tab(s) (PROTONIX) 40 mg ORAL DAILY (6 AM) - atorvastatin 40 mg tab(s) (LIPITOR) 40 mg ORAL AT BEDTIME - morphine 2-4 mg injection 2-4 mg INTRAVENOUS q 1 H PRN - ipratropium-albuterol 3 mL nebulizer solution (DUONEB) 3 mL INHALATION q 4 H while awake - insulin regular iv infusion 100 units in NaCl 0.9% 100 mL - AK CARD SURG NOMOGRAM 0-12 Units/hr INTRAVENOUS CONTINUOUS - insulin regular human iv bolus 10 Units 10 Units INTRAVENOUS PRN - dextrose 50% in water 25 mL syringe 12.5 g INTRAVENOUS PRN - aspirin 162 mg chewable tab(s) 162 mg ORAL DAILY - potassium chloride iv piggyback 20 mEq/100 mL 20 mEq INTRAVENOUS PRN - magnesium sulfate in water 2 g in sterile water 50 ml 2 g INTRAVENOUS PRN(NO DISPENSE) - acetaminophen 650 mg tab(s) (TYLENOL) 650 mg ORAL q 6 H PRN - NaCl 0.9% iv infusion 50 mL/hr INTRAVENOUS CONTINUOUS - EPINEPHrine 4 mg in NaCl 0.9% 250 mL 0.5-10 mcg/min INTRAVENOUS CONTINUOUS - PHENYLephrine iv infusion 10 mg in NaCl 0.9% 250 mL (KASI-SYNEPHRINE) 0-100 mcg/min INTRAVENOUS CONTINUOUS - ondansetron (PF) 4 mg injection (ZOFRAN) 4 mg INTRAVENOUS q 6 H PRN - oxyCODONE-acetaminophen 5-325 mg 1-2 tablet (PERCOCET) 1-2 tablet ORAL q 4 H PRN - NaCl 0.9% 2-10 mL 2-10 mL INTRAVENOUS q 12 H - albuterol 2.5 mg /3 mL (0.083 %) 2.5 mg (PROVENTIL) 2.5 mg INHALATION q 4 H PRN Respiratory/Nursing Documentation: O2 Therapy: Nasal Cannula (10/31/18 0805) Invasive Ventilator Mode: Synchronized Intermittent Mandatory Ventilation;Pressure Support Ventilation (10/29/181922) Set Ventilator Respiratory Rate (BPM): 12 (10/29/181922) Total Respiratory Rate (BPM): 20 (10/29/181922) Tidal Volume Set (mL): 550 (10/29/181922) Exhaled Tidal Volume (mL): 540 (10/29/181922) Minute Volume (L): 11.1 (10/29/181922) Peak Inspiratory Pressure (cm H2O): 17 (10/29/181922) PEEP/CPAP (cm H2O): 5 (10/29/182019) Lines, Drains, and Airways Line Peripheral 10/21/18 0700 Admission to Hospital Short Right Wrist 22 Gauge 10 days Arterial Line 10/29/18 Arterial Line Left Radial 2 days Central Line Quadruple Lumen 10/29/18 Non-tunneled Right Neck 2 days Peripheral 10/29/18 Right Forearm 20 Gauge 2 days Drain Chest Tube 10/29/18 Mediastinal 28 Fr 2 days Chest Tube 10/29/18 Mediastinal 32 Fr 2 days PHYSICAL EXAMINATION: Vitals-reviewed and noted above. Lines/Drains in place as noted above. Sitting up in chair, AANDO x3 Morbidly obese Thick large neck RRR, Sternotomy incision Mildly diminished at bases Ab soft, BS+, NT/ND No edema Peripheral pulses present DATA: All data reviewed, including, but not limited to, data noted below. All diagnostic tests, including labs/specimens and imaging, were personally reviewed by me with my marmolejo findings noted above and/or below. MICRO: CXR FINDINGS: 10/31- Stable small b/l pleural effusions 10/30- small b/l pleural effusions and bibasilar atelectasis 10/29- Low lung volumes w/ bibasilar atelectasis OTHER DIAGNOSTICS/ IMAGING: Impression/Recommendatio ns Critical Care Documentation: The patient has the following organ/system impairment(s): # CAD w/ recent NSTEMI; s/p CABG x 3v # Severe s/p AVR w/ prosthetic valve # Anticipated acute post-op resp insufficiency-s/p extubation on 10/29 as expected # Anticipated post-op hypotension # Underlying PATRICIA; possible OHS - never been on home CPAP # Likely restrictive ventilation in s/o morbid obesity # Morbid obesity # Difficult intubation noted PLAN: - Bronchodilators prn - Start CPAP w/ empiric pressure 8cm H20 - Encouraged IS - OOB to chair as kelin - Perioperative Vancomycin given AVR, noted - Wean FiO2 to goal sat >88-92% - Daily BMP/CBC - BG control per endocrine - Rest per thoracic surgery Code Status: Full Discussed with staff and patient. SIGNATURE: Marcella Bustos MD [facility] Department of Pulmonary and Critical Care Medicine SERVICE DATE: October 31, 2018 SERVICE TIME: 10:00 AM Normal [facility] THERAPY NTon 10-31-2018 THERAPY NT HNO ID: [id number] Author: Juanjose (PtNavi Rainey Service: Physical Therapy Author Type: Physical Therapist Type: Therapy (PT/OT/Speech/Resp) Filed: 10/31/2018 12:34 PM Note Text: Physical Therapy Evaluation SERVICE DATE: 10/31/2018 SERVICE TIME: 903 to 936 ROOM: [place] [address] Recommended Discharge Disposition: Home PT Recommended Discharge Disposition Comments: Working toward home with family assist at d/c pending ongoing progress Anticipated Discharge Needs: Physical Assist at Home;Supervision at Home Physical Assist at Home for: Cleaning;Laundry;Meals;S elf Care;Shopping;Transporta tion Supervision at Home due to: Other: See Comment(recent CABG) PT Recommendations to Nursing: Ambulate with device;To bathroom;In halls;With assist of 1 person Device: Wheeled Walker PT 6 Clicks Score: 18 Precautions/Activity Restrictions: Sternal Isolation Type: None ASSESSMENT : This patient was admitted for Dyspnea with exertion and even at rest and found to need a CABG, has the past medical history of morbid obesity, HTN, impacting current functional level, as well as the social factors complicating the discharge of limited tolerance to activity prior to this admit. This patient is below his baseline functioning and will benefit from continued skilled therapy in the hospital for treatment of the following body systems/impairments: musculoskeletal (strength, gait, transfers, assistive device training, education specific to sternal precautions), cardiopulmonary (activity progression, endurance) . Patient Disposition at Start of Session: OOB in Chair;Call Gil in Reach Patient Disposition at End of Session: OOB in Chair;Call Gil in Reach Tolerated Full Session Physical Therapy Problem List: Education Deficit;Pain;Impaired Self Care;Decreased Activity Tolerance;Decreased Range Of Motion;Decreased Strength;Functional Mobility Impairment Patient /Caregiver Goals: Walk;Go Home(if possible) Goals for Plan of Care: Able to perform HEP with: Independent Rolling with: Verbal Cues Only Transfer supine to/from sit with: Contact Guard Assistance Transfer sit to/from stand with: Contact Guard Assistance Ambulate with: Contact Guard Assistance Distance: 100(intervals) Device: Wheeled Walker Rehab Potential: Good PLAN: Treatment Frequency (times per week): 5(2-5) Current admission Treatment Interventions: Education;Strengthening; Functional Mobility Training Plan of Care developed with: Patient TREATMENT INTERVENTIONS: Therapy Diagnosis: Reduced mobility-other;Muscle Weakness (generalized);Abnormalit ies of gait and mobility-other;General symptoms and signs-other Interventions Provided: Evaluation;Therapeutic Activity (36128);Gait Training (92801) $ Evaluation-Low (75744) Billed Units: 0 units $ Evaluation-Moderate (19392) Billed Units: 1 unit History and examination of body systems see assessment section above. This patient?s clinical presentation is evolving. The patient required a moderate complexity evaluation. Therapeutic Activity (77595) Treatment Minutes: 6 1 unit Skilled Intervention(s): Education with sternal precautions Educated in maximizing the patient's mechanical advantage to stand from sitting position by: scooting to edge of the chair; get feet back beneath pt; lean noes over toes; use momentum to stand. Practiced sit to stand using this technique. Educated to avoid using arms when stands to follow precautions Gait Training (44723) Treatment Minutes: 2 0 units Skilled Intervention(s): Instruction in use of equipment, cues for sequence and pattern Total Timed Code Treatment Minutes: 8 Total Treatment Time (minutes): 23 SUBJECTIVE: Current Hospital Course: Chart reviewed; Pt with dyspnea on exertion and even at rest. Now s/p CABG Active Hospital Problems Diagnosis - CAD (coronary artery disease) - NSTEMI (non-ST elevated myocardial infarction) (HCC) - Aortic stenosis - Essential hypertension - Mixed hyperlipidemia PAST MEDICAL HISTORY Diagnosis Date - Cerebrovascular disease 10/22/2018 - High blood pressure - HLD (hyperlipidemia) - Stroke (HCC) PAST SURGICAL HISTORY Procedure Laterality Date - CARDIAC CATH 10/21/2018 [facility] - TONSILLECTOMY AND ADENOIDECTOMY HX Reason for Physical Therapy Consult : eval Relevant Past Medical History: Morbid obesity, SOB with minimal exertion, Patient Report: Pt willing to participate. Hopes to go home at D/C Home Environment Patient Lives With: Spouse Assistance Available: 24 Hour Entry To Home: Stairs;With Rail Number Of Stairs Into Home: 3 Number Of Stairs To Bed/Bath: 0 Tub/Shower Type: walk-in Equipment Owned: Cane;Crutch(es);Wheelcha ir Prior Functional Level: Within Functional Limits Prior Functional Level Comments: very independent, walks without device. 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 OBJECTIVE: CURRENT FUNCTIONAL STATUS: Current Functional Mobility Assist Level Additional Information Rolling Supine to Sit Sit to Supine Scooting Minimal Assistance Sit to Stand Minimal Assistance Stand to Sit Contact Guard Assistance Bed to Chair Toilet/Commode Gait Contact Guard Assistance Gait Device: (cart) Gait Distance (feet): 75 Stairs Curb Step Car Transfer General Gait Deviations: Taylor decreased Balance: Dynamic Standing Dynamic Standing Balance: Contact Guard Assistance Range of Motion: WFL Except(limits of the sternal precautions) Strength: WFL Except(limited trunck strength for functional scooting (hip hiking)) JH-HLM: 7: Walk 25 feet or more Please see discipline specific clinical documentation flowsheet for complete details for this therapy evaluation/treatment. SIGNATURE: Juanjose Rainey PT PATIENT NAME: Harrison Milligan DATE: October 31, 2018 TIME: 12:28 PM Normal [facility] THERAPY NT HNO ID: [id number] Author: Brenda LeachOtr/LNavi Fall OT Service: Occupational Therapy Author Type: Occupational Therapist Type: Therapy (PT/OT/Speech/Resp) Filed: 10/31/2018 10:17 AM Note Text: Occupational Therapy Evaluation SERVICE DATE: 10/31/2018 SERVICE TIME: 854 to 917 ROOM: [place] [address] Recommended Discharge Disposition: Home OT Recommended Discharge Disposition Comments: with assist Anticipated Discharge Needs: Physical Assist at Home;Supervision at Home Physical Assist at Home for: Cleaning;Laundry;Meals;S elf Care;Shopping;Transporta tion Supervision at Home due to: Other: See Comment(recent CABG) OT Recommendations to Nursing: ADL?s in chair;Bedside Commode for Toileting;OOB for meals;With assist of 1 person Equipment: Wheeled Walker(and/or cardiac chair) OT 6 Clicks Score: 15 Precautions/Activity Restrictions: Sternal Isolation Type: None ASSESSMENT: Patient presents s/p CABG on 10/29. 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 Pt now requires min assist for transfers and functional mobility and mod-max assist for LB ADLs ( to assist at home per patient). Pt demo's good understanding of self-care following a CABG (provided handout). Continue skilled OT to maximize patient's strength and independence for ADLs and functional mobility following a heart surgery. Patient Disposition at Start of Session: OOB in Chair;Call Gil in Reach;SCDs Patient Disposition at End of Session: OOB in Chair;Call Gil in Reach;SCDs Tolerance Limited By Fatigue Occupational Therapy Problem List: Impaired Self Care;Decreased Activity Tolerance;Decreased Strength;Functional Mobility Impairment Patient /Caregiver Goals: Go Home Goals for Plan of Care: Grooming with: Stand By Assistance(sink side) Upper Body Bathing with: Set Up Upper Body Dressing with: Set Up Lower Body Bathing with: Minimal Assistance Lower Body Dressing with: Minimal Assistance Toilet Hygiene with: Minimal Assistance Chair Transfer with: Contact Guard Assistance Toilet Transfer with: Contact Guard Assistance Tolerate (minutes of functional activity): 25 Functional Activity with: Contact Guard Assistance Additional Goal 1: Pt will demo good safety/judgement with OOB functional activities Demonstrate Competence With Education with: Independent Transfer: sit-stand: CGA Rehab Potential: Excellent PLAN: Treatment Frequency (times per week): 5(1-4) Current admission Treatment Interventions: Education;Self Care / Home Management;Strengthening ;Functional Mobility Training Plan of Care developed with: Patient TREATMENT INTERVENTIONS: Therapy Diagnosis: Reduced mobility-other;Decreased activities of daily living (ADL);Unsteadiness on feet Interventions Provided: Evaluation;Self Half-Way Management (85043) $ Evaluation-Moderate (08299) Billed Units: 1 unit OT Evaluation Moderate Complexity: Occupational Profile - Extended review of patient's medical record completed including patient's physical, cognitive, and psycho-social history (please see current hospital course of evaluation). Occupational Performance - Pt presents with deficits in feeding, grooming, UE bathing/dressing, LE bathing/dressing, functional transfers, functional mobility, decreased safety awareness, decreased insight into deficits Complexity in Clinical Decision Making - The extent of clinical reasoning was moderate, several treatment options present for the patient, need for modification during the evaluation was minimal/moderate, comorbidities affecting occupational performance: morbid obesity, SOB Self Half-Way Management (02109) Treatment Minutes: 8 1 unit Skilled Intervention(s): Educated pt on role of OT in the acute care setting. Educated pt on sternal precautions and how they apply to the patient's safety/independence with ADLs/IADLs/functional mobility; provided min verbal cues to recall 100% of precautions. Educated/instructed patient on the sternal vest re: function, frequency of use, benefits, and how to don/doff. Provided min verbal cues for patient to demo good understanding of instructions. Edu pt on LB dressing technique with Abran RICK hose and adaptive ways to modify the process in order to increase ease, comfort, and independence (i.e. utilizing a plastic bag to reduce friction and increase ease of donning). Facilitated safe functional mobility in room to assess patient's ability to safely manage house hold activities and functional transfers (toilet); provided min verbal cuing to maintain sternal precautions and fall guarding due to SOB/fatigue. Educated pt on fall prevention strategies, reinforcing the use of their call light / up with assistance for functional mobility; Pt left up in chair, call light in reach upon OT exit. 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 5/10 pain chest pain. Home Environment Patient Lives With: Spouse Assistance Available: 24 Hour Entry To Home: Stairs;With Rail Number Of Stairs Into Home: 3 Number Of Stairs To Bed/Bath: 0 Tub/Shower Type: walk-in Equipment Owned: Cane;Crutch(es);Wheelcha ir Prior Functional Level: Within Functional Limits Prior Functional Level Comments: very independent, walks without device. 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 OBJECTIVE: Cognition/Communication Deficits Responsiveness: Alert Follows Commands: 2-step Commands Executive Function Deficits: Judgement;Safety Awareness Judgement Deficit: Minimal impairment Safety Awareness Deficit: Minimal impairment CURRENT FUNCTIONAL STATUS: Current Activities of Daily Living Assist Level Feeding Set Up Grooming Minimal Assistance Bathing Upper Body Moderate Assistance Bathing Lower Body Maximal Assistance Dressing Upper Body Moderate Assistance Dressing Lower Body Maximal Assistance Toileting Moderate Assistance Functional Mobility Assist Level Rolling Supine to Sit Sit to Supine Scooting Sit to Stand Minimal Assistance Stand to Sit Minimal Assistance Bed to Chair Toilet/Commode Functional Mobility Minimal Assistance Other: See Comment(cardiac cart) Hand Dominance: Right Range of Motion: WFL Strength: WFL(grossly intact; not formally tested) Activity Tolerance: Standing Activity Standing Activity: Functional mobility to/from bathroom; toilet transfer Standing Activity Tolerance (in minutes): 6 Please see discipline specific clinical documentation flowsheet for complete details for this therapy evaluation/treatment. SIGNATURE: RAYMUNDO Dee/Roberta PATIENT NAME: Harrison Milligan DATE: October 31, 2018 TIME: 10:12 AM Normal [facility] Basic Panelon 10-30-2018 Creatinine [Mass/Vol] 1.05 mg/dL Normal 0.67-1.17 [facility] Comment on above: Performed By: #### P 8 #### [facility] [address] [place] [address] Glucose [Mass/Vol] 129 mg/dL High 70-99 [facility] Comment on above: Performed By: #### P 8 #### [place] [address] Anion gap [Moles/Vol] 13 mmol/L Normal 8-16 [facility] Comment on above: Performed By: #### P 8 #### [facility] [address] [place], [place] [address] Calcium [Mass/Vol] 7.8 mg/dL Low 8.5-10.1 [facility] Comment on above: Performed By: #### P 8 #### [facility] [address] [place], [place] [address] CO2 [Moles/Vol] 18 mmol/L Low 21-32 [facility] Comment on above: Performed By: #### P 8 #### [facility] [address] [place], [place] [address] Urea nitrogen [Mass/Vol] 17 mg/dL Normal 7-18 [facility] Comment on above: Performed By: #### P 8 #### [facility] [address] [place] [address] Chloride [Moles/Vol] 116 mmol/L High 98-107 [facility] Comment on above: Performed By: #### P 8 #### [facility] [address] [place], [place] [address] Potassium [Moles/Vol] 4.7 mmol/L Normal 3.5-5.1 [facility] Comment on above: Performed By: #### P 8 #### [facility] [address] [place], [place] [address] Sodium [Moles/Vol] 142 mmol/L Normal 136-145 [facility] Comment on above: Performed By: #### P 8 #### [facility] [address] [place] [address] CASE MANAGEMon 10-30-2018 CASE MANAGEM HNO ID: [id number] Author: Jill (Rn) LOKESH Wang Service: Care Management Author Type: Registered Nurse Type: Care Mgt Progress Note Filed: 10/30/2018 2:11 PM Note Text: CARE MANAGEMENT PROGRESS NOTE SERVICE DATE: 10/30/2018 SERVICE TIME: 2:11 PM LOS: 8 days Needs Prior to Discharge: Home Care Order Disch plan is home with family and HHC thru [facility]. SIGNATURE: Jill Wang RN PATIENT NAME: Harrison Milligan DATE: October 30, 2018 TIME: 2:10 PM PAGER/CONTACT #: [phone] Normal [facility] ECG COMPLETEon 10-30-2018 ECG COMPLETE NAME : ALVARO MILLIGAN PID : [id number] : 1940 Gender : Male Race : ORD : [id number] Procedure Date : Oct 30 2018 03:29:16 Edit Date : Oct 30 2018 17:59:43 Diagnosis:NORMAL SINUS RHYTHM INFERIOR INFARCT (CITED ON OR BEFORE 29-OCT-2018) T WAVE ABNORMALITY, CONSIDER LATERAL ISCHEMIA ABNORMAL ECG WHEN COMPARED WITH ECG OF 29-OCT-2018 16:48, SINUS RHYTHM HAS REPLACED ELECTRONIC ATRIAL PACEMAKER NON-SPECIFIC CHANGE IN ST SEGMENT IN ANTERIOR LEADS Confirmed by MD ARCE FERNANDO ([id number]) on 10/30/2018 5:59:31 PM Ventricular Rate : 61 BPM Atrial Rate : 61 BPM P-R Interval : 182 ms QRS Duration : 98 ms Q-T Interval : 432 ms QTC Calculation(Bezet) : 434 ms P Princess Anne : 16 degrees R Princess [place] : -2 degrees T Princess Anne : 105 degrees Test Reason : Post-OP Location : 6 : [place] [address] Overread By : MD ARCE FERNANDO Edited By : MD ARCE FERNANDO Referred By : RUSTAM KEBEDE Acquired by : SOPHY CAMPOS Normal [facility] Hemogramon 10-30-2018 Erythrocyte distribution width (RBC) [Ratio] 12.4 % Normal 11.6-14.4 [facility] Comment on above: Performed By: #### P 8 #### [facility] [address] [place] [address] Hematocrit (Bld) [Volume fraction] 37.4 % Low 40.1-51.0 [facility] Comment on above: Performed By: #### P 8 #### [facility] [address] [place], [place] [address] Hemoglobin (Bld) [Mass/Vol] 12.5 g/dL Low 13.7-17.5 [facility] Comment on above: Performed By: #### P 8 #### [facility] [address] [place], [place] [address] MCH (RBC) [Entitic mass] 30.9 pg Normal 25.7-32.2 [facility] Comment on above: Performed By: #### P 8 #### [facility] [address] [place] [address] MCHC (RBC) [Mass/Vol] 33.4 % Normal 32.3-36.5 [facility] Comment on above: Performed By: #### P 8 #### [facility] [address] [place] [address] MCV (RBC) [Entitic vol] 92.6 fL Normal 83.2-95.6 [facility] Comment on above: Performed By: #### P 8 #### [facility] [address] [place] [address] Platelet mean volume (Bld) [Entitic vol] 11.3 fL Normal 8.7-12.0 [facility] Comment on above: Performed By: #### P 8 #### [facility] [address] [place] [address] Platelets (Bld) [#/Vol] 112 thou/cmm Low 141-365 [facility] Comment on above: Performed By: #### P 8 #### [facility] [address] [place] [address] RBC (Bld) [#/Vol] 4.04 mil/cmm Low 4.63-6.08 [facility] Comment on above: Performed By: #### P 8 #### [facility] [address] [place] [address] RDW SD 42.3 fl Normal 36.1-45.8 [facility] Comment on above: Performed By: #### P 8 #### [facility] [address] [place] [address] WBC (Bld) [#/Vol] 12.16 thou/cmm High 4.23-9.07 [facility] Comment on above: Performed By: #### P 8 #### [facility] [address] [place] [id number] Magnesium Bloodon 10-30-2018 Magnesium [Mass/Vol] 1.9 mg/dL Normal 1.6-2.6 [facility] Comment on above: Performed By: #### P 8 #### [place] [address] NUTRITIONon 10-30-2018 NUTRITION HNO ID: [id number] Author: Paloma Grullon RD Service: Nutrition Therapy Author Type: Registered Dietitian Type: Nutrition Filed: 10/30/2018 1:28 PM Note Text: NUTRITION THERAPY INITIAL ASSESSMENT SERVICE DATE: 10/30/2018 SERVICE TIME: 9:31 AM RECOMMENDED MALNUTRITION DIAGNOSIS: NO MALNUTRITION IDENTIFIED NUTRITION CARE PLAN: Problem, Etiology and Signs/Symptoms: Increased nutrient needs kcal/protein related to increased metabolic demand from surgery as evidenced by CABG 10/29/18 Intervention: Continue on Heart Healthy Diet Follow po intake and supplement as appropriate Coordination of Care: Nursing Monitor and Evaluation: Goal: Meet >75% of estimated needs Monitor fluid/electrolyte balance Monitor labs, I/Os, vital signs, weight Discharge Nutrition Recommendations: Diet: Heart Healthy --- Chart reviewed for length of stay Per HPI: 78 year old male who presents as an inpatient transfer from [facility]. He presented there with worsening dyspnea with exertion, reaching the point of dyspnea with any activity at all. He did not have overt chest pressure or pain. When he was evaluated in the emergency department he had an indeterminate troponin, so he was treated as a non-STEMI. Echocardiogram showed severe aortic stenosis with severe calcification of the leaflets. Cardiac catheterization showed significant left anterior descending stenosis. He was therefore recommended for consideration of coronary artery bypass grafting with aortic valve replacement and transferred to this facility today. Interval History: Pulmonary on consult. Underwent CABG on 10/01/18 and extubated 10/29/18. ACTIVE PROBLEM LIST Ataxia S/P Cva Essential Hypertension Mixed Hyperlipidemia History of Stroke Bmi 40.0-44.9, Adult (Hcc) Cad (Coronary Artery Disease) Nstemi (Non-St Elevated Myocardial Infarction) ([facility]) Cerebrovascular Disease Aortic Stenosis PAST MEDICAL HISTORY Diagnosis Date - Cerebrovascular disease 10/22/2018 - High blood pressure - HLD (hyperlipidemia) - Stroke (HCC) PAST SURGICAL HISTORY Procedure Laterality Date - CARDIAC CATH 10/21/2018 [facility] - TONSILLECTOMY AND ADENOIDECTOMY HX Social History Socioeconomic History Marital status: Spouse name: Not on file Number of children: Not on file Years of education: Not on file Highest education level: Not on file Social Needs Financial resource strain: Not on file Food insecurity - worry: Not on file Food insecurity - inability: Not on file Transportation needs - medical: Not on file Transportation needs - non-medical: Not on file Occupational History 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 Orders Placed This Encounter DIET HEART HEALTHY Standing Status: Standing Number of Occurrences: 1 Order Specific Question: Heart Healthy Answer: 2 GM SODIUM (<200 MG CHOL / LOW SAT FAT) Lines and Drains: Central Line Quadruple Lumen 10/29/18 Non-tunneled Right Neck (Active) Peripheral 10/21/18 0700 Admission to Hospital Short Right Wrist 22 Gauge (Active) Peripheral 10/29/18 Right Forearm 20 Gauge (Active) Indwelling Urinary Catheter 10/29/18 Temperature Monitoring 16 Fr (Active) Chest Tube 10/29/18 Mediastinal 32 Fr (Active) Chest Tube 10/29/18 Mediastinal 28 Fr (Active) Nutritional Intake Prior to Admission: >75% estimated energy needs over the past >1 month(s), reports good po prior to admission and noted tolerated 100% meals prior to OR. Told this RD just send what I should eat and I'll do it. Encouraged good po and patient to make nutritional choices. GI symptoms: none, last BM 10/28/18 Nutrition Abdominal Exam:, abdomen is distended and bowel sounds are hypoactive, per clinical documentation ANTHROPOMETRICS Height: 180 cm (5' 10.87) Admission Weight: (!) 140.2 kg (309 lb) Current Weight: (!) 144.8 kg (319 lb 3.6 oz) Body mass index is 44.69 kg/m?. class 3 obesity Weight has unable to assess weight change due to fluid shifts. Noted weight gain post-op Last Wt 10/30/18 : (!) 144.8 kg (319 lb 3.6 oz) 05/09/18 : (!) 140.8 kg (310 lb 6.4 oz) - 6 months 12/24/17 : (!) 139.4 kg (307 lb 6.4 oz) 05/15/17 : (!) 138.8 kg (306 lb) 04/04/16 : (!) 141.1 kg (311 lb) 02/23/15 : (!) 139.7 kg (308 lb) 02/28/14 : 136 kg (299 lb 12.8 oz) 04/09/13 : (!) 137.4 kg (303 lb) 02/23/12 : 130.2 kg (287 lb) 04/28/11 : (!) 138 kg (304 lb 3.8 oz) 03/28/11 : (!) 140.6 kg (310 lb) 03/10/11 : (!) 140.6 kg (310 lb) [place] Body Weight: 78.2kg Resting Metabolic Rate: 2197 Estimated kilocalorie needs: 1012-4955 kilocalories determined by 25-30 kcal/kg Estimated protein needs: 94-125 grams determined by 1.2-1.6 g/kg [place] weight Estimated fluid needs: 4738-9429 milliliters based on 1 mL per kcal NUTRITION FOCUSED PHYSICAL EXAM: Subcutaneous Fat Loss Orbital No fat loss Triceps No fat loss Mid-axillary at the iliac crest Unable to determine at this time Muscle Loss Locations: Temporalis No muscle loss Pectoralis No muscle loss Deltoids No muscle loss Interosseous Unable to determine at this time Latissimus dorsi, trapezius Unable to determine at this time Quadriceps No muscle loss Gastrocnemius No muscle loss Potential micronutrient deficiency revealed in: No deficiency identified Edema: Yes Generalized and Non-pitting Ascites: No Assessment of Functional Status: Able to do little activity and spend most of the day in bed or chair for a duration of 8 days Temperature Max in 24 hours: Temp (24hrs), Av.2 ?C (98.9 ?F), Min:36.5 ?C (97.7 ?F), Max:37.6 ?C (99.7 ?F) BP 148/62 Pulse 88 Temp 37.3 ?C (99.1 ?F) (Core) Resp 21 Ht 180 cm (5' 10.87) Wt (!) 144.8 kg (319 lb 3.6 oz) SpO2 94% BMI 44.69 kg/m? Recent Labs 10/30/18 0500 GLUC 129* BUN 17 CREAT 1.05 NA 142 K 4.7 CHLOR 116* CO2 18* HB 12.5* HCT 37.4* WBC 12.16* MG 1.9 Potential Signs of Inflammation: leukocytosis, hyperglycemia, imaging studies, acute post-operative and chronic condition ALLERGIES No Known Allergies Current Facility-Administered Medications Medication Dose Route Frequency - morphine 2-4 mg injection 2-4 mg INTRAVENOUS q 1 H PRN - ipratropium-albuterol 3 mL nebulizer solution (DUONEB) 3 mL INHALATION q 4 H while awake - insulin regular iv infusion 100 units in NaCl 0.9% 100 mL - AK CARD SURG NOMOGRAM 0-12 Units/hr INTRAVENOUS CONTINUOUS - insulin regular human iv bolus 10 Units 10 Units INTRAVENOUS PRN - dextrose 50% in water 25 mL syringe 12.5 g INTRAVENOUS PRN - aspirin 162 mg chewable tab(s) 162 mg ORAL DAILY - potassium chloride iv piggyback 20 mEq/100 mL 20 mEq INTRAVENOUS PRN - magnesium sulfate in water 2 g in sterile water 50 ml 2 g INTRAVENOUS PRN(NO DISPENSE) - acetaminophen 650 mg tab(s) (TYLENOL) 650 mg ORAL q 6 H PRN - enoxaparin 40 mg injection (LOVENOX) 40 mg SUBCUTANEOUS DAILY - NaCl 0.9% iv infusion 50 mL/hr INTRAVENOUS CONTINUOUS - EPINEPHrine 4 mg in NaCl 0.9% 250 mL 0.5-10 mcg/min INTRAVENOUS CONTINUOUS - PHENYLephrine iv infusion 10 mg in NaCl 0.9% 250 mL (KASI-SYNEPHRINE) 0-100 mcg/min INTRAVENOUS CONTINUOUS - ceFAZolin 3 g in D5W 100 mL (ANCEF) 3 g INTRAVENOUS q 6 HR - vancomycin iv piggyback 1 g in D5W 200 mL (VANCOCIN) 1 g INTRAVENOUS q 12 HR - ondansetron (PF) 4 mg injection (ZOFRAN) 4 mg INTRAVENOUS q 6 H PRN - oxyCODONE-acetaminophen 5-325 mg 1-2 tablet (PERCOCET) 1-2 tablet ORAL q 4 H PRN - NaCl 0.9% 2-10 mL 2-10 mL INTRAVENOUS q 12 H - albuterol 2.5 mg /3 mL (0.083 %) 2.5 mg (PROVENTIL) 2.5 mg INHALATION q 4 H PRN Date 10/29/18 07 - 10/30/18 0659 10/30/18 07 - 10/31/18 0659 Shift 2840-8458 5294-8641 2248-5487 24 Hour Total 6098-7201 6947-5964 0425-0390 24 Hour Total INTAKE PO 120 120 PO 120 120 IV 3114 2787 5901 1115 1115 NS 0.9% 2002 1600 3603 700 700 Vancomycin IV 200 200 200 200 Cefazolin IV 100 200 300 Magnesium IVPB 50 50 Regular Insulin IV 30 35 65 EPINEPHrine Volume 40 87 127 Dexmedetomidine IV 74 58 132 Aminocaproic Acid IV 290 290 Phenylephrine Volume 544 758 9481 165 165 Shift Total 3114 2787 5901 1235 1235 OUTPUT Urine 1370 1175 2545 275 275 Output ( Indwelling Urinary Catheter 10/29/18 Temperature Monitoring 16 Fr) 1370 1175 2545 275 275 Chest Tube 320 240 560 75 75 Chest Tube Output (Chest Tube 10/29/18 Mediastinal 32 Fr) 320 240 560 75 75 Chest Tube Output (Chest Tube 10/29/18 Mediastinal 28 Fr) 0 0 Shift Total 1690 1415 3105 350 350 Weight (kg) 138 138 144.8 144.8 144.8 144.8 144.8 144.8 [facility] in the past year:No results for input(s): CHROMIUM, COPPER, MANGANESE, SELENIUM, VITAMINA, VITB1, VITB2, VITB6, B12, METHYLMAL, VITD25, VITAMINE, VITAK, ZINC, TIBC, FE, JESSICA in the last 8784 hours. MNT Billing Type: Initial Assess/15 min 3 units SIGNATURE: Paloma Grullon RD, LD PATIENT NAME: Harrison Milligan DATE: October 30, 2018 TIME: 9:31 AM PAGER: [phone] [facility] PROGRESSon 10-30-2018 PROGRESS HNO ID: [id number] Author: Marcella Bustos Service: Critical Care Author Type: Physician Type: Progress Notes Filed: 10/30/2018 12:29 PM Note Text: MICU - PROGRESS NOTE SERVICE DATE: 10/30/2018 Admission Date: 10/22/2018 AGE: [id number] year old LOS: 8 days REASON FOR ICU ADMISSION: s/p CABG and AVR Subjective HISTORY OF PRESENT ILLNESS: 78 yo WM presented as inpatient transfer from [facility], where he presented w/ WOLF, found to have NSTEMI. Echo showing severe and cardiac cath confirmed sig LAD stenosis. Thus underwent the following on 10/29/18 ? PROCEDURES AND ANESTHESIA: Procedure(s) and Anesthesia Type: * AVR W/ CARDIOPULMONARY BYPASS W/ PROSTHETIC OTHER THAN HOMOGRAFT/ STENTLESS TISSUE VALVE - General * BYPASS GRAFT ARTERY CORONARY ON-PUMP THREE CORONARY ARTERIAL GRAFTS - General Great Saphenous Vein, Left , Percutaneous endoscopic Internal Thoracic Artery, Left , Open CABG x 3 (ramos-lad; svg-diag; svg-om; evh); AVR (23 Trifecta pericardial) Spirometry 10/24/18 suggestive of possible moderate restriction-personally reviewed. No lung volumes to confirm. Noted pt was difficult intubation w/ MP III Successfully extubated on 10/29/18. OVERNIGHT EVENTS: Still on Epi/phenylephrine Denies SOB. Had PSG over 3 yrs ago w/ confirmed PATRICIA per pt, but never wore CPAP. Willing to try it here. Denies cough. Mild chest soreness. Afebrile. PAST MEDICAL HISTORY Diagnosis Date - Cerebrovascular disease 10/22/2018 - High blood pressure - HLD (hyperlipidemia) - Stroke (HCC) Objective VITAL SIGNS (last 24hrs min/max): Temp Av.7 ?C (98.1 ?F) Min: 36.6 ?C (97.9 ?F) Max: 36.8 ?C (98.2 ?F) Pulse Av Min: 62 Max: 86 No data recorded Cuff BP Min: 103/52 Max: 148/62 Pain Level: 0 Vital signs reviewed. BP 148/62 Pulse 88 Temp (Src) 99 (Core) Resp 26 Ht 5' 10.866 (1.80m) Wt 319 lb 3.6 oz (144.8kg) SpO2 96% BMI 44.69 kg/(m2). Temp (24hrs), Av.2 ?C (98.9 ?F), Min:36.5 ?C (97.7 ?F), Max:37.6 ?C (99.7 ?F) NET FLUID BALANCE Intake/Output Summary (Last 24 hours) at 10/30/2018 1225 Last data filed at 10/30/2018 1200 Gross per 24 hour Intake 8196 ml Output 3920 ml Net 4276 ml MEDICATIONS Current Facility-Administered Medications Medication Dose Route Frequency - morphine 2-4 mg injection 2-4 mg INTRAVENOUS q 1 H PRN - ipratropium-albuterol 3 mL nebulizer solution (DUONEB) 3 mL INHALATION q 4 H while awake - insulin regular iv infusion 100 units in NaCl 0.9% 100 mL - AK CARD SURG NOMOGRAM 0-12 Units/hr INTRAVENOUS CONTINUOUS - insulin regular human iv bolus 10 Units 10 Units INTRAVENOUS PRN - dextrose 50% in water 25 mL syringe 12.5 g INTRAVENOUS PRN - aspirin 162 mg chewable tab(s) 162 mg ORAL DAILY - potassium chloride iv piggyback 20 mEq/100 mL 20 mEq INTRAVENOUS PRN - magnesium sulfate in water 2 g in sterile water 50 ml 2 g INTRAVENOUS PRN(NO DISPENSE) - acetaminophen 650 mg tab(s) (TYLENOL) 650 mg ORAL q 6 H PRN - enoxaparin 40 mg injection (LOVENOX) 40 mg SUBCUTANEOUS DAILY - NaCl 0.9% iv infusion 50 mL/hr INTRAVENOUS CONTINUOUS - EPINEPHrine 4 mg in NaCl 0.9% 250 mL 0.5-10 mcg/min INTRAVENOUS CONTINUOUS - PHENYLephrine iv infusion 10 mg in NaCl 0.9% 250 mL (KASI-SYNEPHRINE) 0-100 mcg/min INTRAVENOUS CONTINUOUS - ceFAZolin 3 g in D5W 100 mL (ANCEF) 3 g INTRAVENOUS q 6 HR - vancomycin iv piggyback 1 g in D5W 200 mL (VANCOCIN) 1 g INTRAVENOUS q 12 HR - ondansetron (PF) 4 mg injection (ZOFRAN) 4 mg INTRAVENOUS q 6 H PRN - oxyCODONE-acetaminophen 5-325 mg 1-2 tablet (PERCOCET) 1-2 tablet ORAL q 4 H PRN - NaCl 0.9% 2-10 mL 2-10 mL INTRAVENOUS q 12 H - albuterol 2.5 mg /3 mL (0.083 %) 2.5 mg (PROVENTIL) 2.5 mg INHALATION q 4 H PRN Respiratory/Nursing Documentation: O2 Therapy: Nasal Cannula (10/30/18 1000) Invasive Ventilator Mode: Synchronized Intermittent Mandatory Ventilation;Pressure Support Ventilation (10/29/181922) Set Ventilator Respiratory Rate (BPM): 12 (10/29/181922) Total Respiratory Rate (BPM): 20 (10/29/181922) Tidal Volume Set (mL): 550 (10/29/181922) Exhaled Tidal Volume (mL): 540 (10/29/181922) Minute Volume (L): 11.1 (10/29/181922) Peak Inspiratory Pressure (cm H2O): 17 (10/29/181922) PEEP/CPAP (cm H2O): 5 (10/29/182019) Lines, Drains, and Airways Line Peripheral 10/21/18 0700 Admission to Hospital Short Right Wrist 22 Gauge 9 days Arterial Line 10/29/18 Arterial Line Left Radial 1 day Central Line Quadruple Lumen 10/29/18 Non-tunneled Right Neck 1 day Peripheral 10/29/18 Right Forearm 20 Gauge 1 day Drain Chest Tube 10/29/18 Mediastinal 28 Fr 1 day Chest Tube 10/29/18 Mediastinal 32 Fr 1 day Indwelling Urinary Catheter 10/29/18 Temperature Monitoring 16 Fr 1 day PHYSICAL EXAMINATION: Vitals-reviewed and noted above. Lines/Drains in place as noted above. Sitting up in chair, AANDO x3 Morbidly obese Thick large neck RIJ/[place] noted RRR, Sternotomy incision Mildly diminished at bases Ab soft, BS+, NT/ND Chest tube w/ serosanguinous drainage No edema Peripheral pulses present DATA: All data reviewed, including, but not limited to, data noted below. All diagnostic tests, including labs/specimens and imaging, were personally reviewed by me with my marmolejo findings noted above and/or below. 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 SIGNATURE: Marcella Bustos MD [facility] Department of Pulmonary and Critical Care Medicine SERVICE DATE: October 30, 2018 SERVICE TIME: 12:29 PM Normal [facility] PROGRESS HNO ID: [id number] Author: Tristin Fields (Pa) Service: Cardiac Surgery Author Type: Physician Rougher Machine Operator Type: Progress Notes Filed: 10/30/2018 12:05 PM Note Text: CARDIOTHORACIC SURGERY POSTOP PROGRESS NOTE SERVICE DATE: 10/30/2018 SERVICE TIME: 9:21 AM Subjective S/P SURGERY: Procedure(s) (LRB): AVR W/ CARDIOPULMONARY BYPASS W/ PROSTHETIC OTHER THAN HOMOGRAFT/ STENTLESS TISSUE VALVE (N/A) BYPASS GRAFT ARTERY CORONARY ON-PUMP THREE CORONARY ARTERIAL GRAFTS (N/A) DATE OF SURGERY: 10/29/2018 POSTOP DAY #1 LOS: 8 INTERVAL EVENTS / PERTINENT ROS: Patient was extubated on time per the extubation protocol. He is sitting comfortably in his chair with no significant discomfort or distress. Patient is still on Epi and Kasi as well as 6 L O2 NC. Patient was examined and his chart and labs were reviewed. There were no acute events through the night. Objective Admission Weight: (!) 140.2 kg (309 lb) BP 148/62 Pulse 88 Temp 37.3 ?C (99.1 ?F) (Core) Resp 21 Ht 180 cm (5' 10.87) Wt (!) 144.8 kg (319 lb 3.6 oz) SpO2 96% BMI 44.69 kg/m? Body surface area is 2.69 meters squared. Min/Max/Average Temperature AND Blood Pressure: Temp (24hrs), Av.2 ?C (98.9 ?F), Min:36.5 ?C (97.7 ?F), Max:37.6 ?C (99.7 ?F) No data recorded. No data recorded. Intake/Output Summary (Last 24 hours) at 10/30/2018 0921 Last data filed at 10/30/2018 0900 Gross per 24 hour Intake 7136 ml Output 3455 ml Net 3681 ml TELEMETRY: Normal sinus rhythm. Patient is currently being A paced with underlying bradycardia. PHYSICAL EXAM: On examination, the patient is awake, alert, and is breathing comfortably. Vital signs are: BP 148/62 Pulse 88 Temp 37.3 ?C (99.1 ?F) (Core) Resp 21 Ht 180 cm (5' 10.87) Wt (!) 144.8 kg (319 lb 3.6 oz) SpO2 96% BMI 44.69 kg/m? There is no JVD. Breath sounds are clear bilaterally. The sternal wound is intact and the sternum is stable. The cardiac rhythm is regular. There are no rubs, gallops, or murmurs. The carotid, subclavian, and radial pulses are 2+ and equal bilaterally. The abdomen is soft and non-tender. There are active bowel sounds. There are no abdominal masses. There is no hepatojugular reflux. The saphenous vein harvest sites are intact. There is mild general edema to the upper and lower extremities bilaterally. There is no clubbing or cyanosis. The neuro exam is grossly non focal. Chest tube output is serosanguinous. Lines, Drains, and Airways Line Peripheral 10/21/18 0700 Admission to Hospital Short Right Wrist 22 Gauge 9 days Arterial Line 10/29/18 Arterial Line Left Radial 1 day Central Line Quadruple Lumen 10/29/18 Non-tunneled Right Neck 1 day Peripheral 10/29/18 Right Forearm 20 Gauge 1 day Drain Chest Tube 10/29/18 Mediastinal 28 Fr 1 day Chest Tube 10/29/18 Mediastinal 32 Fr 1 day Indwelling Urinary Catheter 10/29/18 Temperature Monitoring 16 Fr 1 day DATA: Diagnostic tests reviewed for today's visit: Chest X-RAY: Impression- Interval extubation. Small bilateral pleural effusion with bibasilar atelectasis. Recent Labs 10/30/18 0500 10/29/18 1615 10/29/18 1401 10/28/18 0305 RBC 4.04* 4.72 -- -- -- WBC 12.16* 15.67* -- -- -- HB 12.5* 14.6 -- -- -- HCT 37.4* 43.7 28* < > -- PLT 112* 127* -- -- -- INR -- 1.14 -- -- -- APTT -- 28.8 -- -- -- NA 142 141 143 < > 139 K 4.7 5.0 3.9 < > 4.6 CHLOR 116* 113* -- -- 110* CO2 18* 21 -- -- 22 BUN 17 21* -- -- 34* CREAT 1.05 1.11 -- -- 1.20* GLUC 129* 138* -- -- 94 CA 7.8* 8.3* -- -- 8.9 MG 1.9 2.4 -- -- -- ANION 13 12 -- -- 12 < > = values in this interval not displayed. Recent Labs 10/29/18 2105 10/29/18 1615 10/29/18 1401 10/29/18 1336 10/29/18 1312 PH 7.327* 7.290* 7.348* 7.357 7.365 PCO2 37.3 45.5* -- -- -- PO2 73.1* 80.7* 82.0 378.0* 285.0* BE -5.9* -5.0* -- -- -- HCO3 -- -- 19.9* 24.3 23.7 Assessment/Plan CAD/NSTEMI/Aortic valve stenosis s/p CABGx3/ AVR -POD 1 -Currently still on Epi and Kasi -Medical management with ASA 162, Statin 40, Hold BB until off pressors -Echo on POD 4 to evaluate valve -Pain management with morphine and orals -Monitor chest tube output -Continue swan while on pressors -D/brittani cedeno later today -Insulin drip -Encourage cough and deep breathing -Thoracic vest ordered -Heart healthy diet Left ventricular hypertrophy and diastolic dysfunction -Currently on Kasi and Epi -Was given an additional L of fluid this morning -Monitor CVP and CI -Continue to wean pressors Anticipated Acute Respiratory Insufficiency s/p CTS -Currently on 6 L NC -Continue to wean O2 -Ordered Acapella -Encourage cough and deep breathing Leukocytosis -Likely reactive -Currently 12.16 -Continue to monitor Essential HTN -Currently hold home HTN meds -Still on pressors GI ppx -Protonix switched to PO DVT ppx -SCDs and teds -Lovenox 40 mg SQ Tests/Labs Ordered: 1. Chest X-ray 2. BMP 3. CBC SIGNATURE: Tristin Fields PA-C PATIENT NAME: Harrison Milligan DATE: October 30, 2018 TIME: 9:21 AM PAGER/CONTACT #:[phone] ETX [id number] Normal [facility] ACT Arterial Panel (i-STAT)o n 10-29-2018 Kaolin ACT ( i-STAT) 109 sec Normal 74-137 [facility] Comment on above: Performed By: #### P T #### [place] [id number] ANES PREOPon 10-29-2018 ANES PREOP HNO ID: [id number] Author: Marin Velasquez Service: Anesthesiology Author Type: Physician Type: Anesthesia PreOp Filed: 10/29/2018 7:23 AM Note Text: ANESTHESIOLOGY DAY OF SURGERY NOTE SERVICE DATE: 10/29/2018 SERVICE TIME: 7:11 AM : 1940 Procedure(s) (LRB): AVR W/ CARDIOPULMONARY BYPASS W/ PROSTHETIC OTHER THAN HOMOGRAFT/ STENTLESS TISSUE VALVE (N/A) BYPASS GRAFT ARTERY CORONARY ON-PUMP THREE CORONARY ARTERIAL GRAFTS (N/A) Surgeon(s): Scott Helms Estimated body mass index is 42.45 kg/m? as calculated from the following: Height as of this encounter: 180.3 cm (5' 10.98). Weight as of this encounter: 138 kg (304 lb 3.8 oz). Most recent hematocrit and potassium results: Hematocrit 43.7 10/27/2018 Potassium 4.6 10/28/2018 ANES DOS/PREOP NOTE: Vitals: 10/28/18 1954 10/28/18 2337 10/29/18 0509 10/29/18 0648 BP: 103/52 (!) 116/41 148/62 Pulse: 76 66 62 74 Resp: 19 18 18 18 Temp: 36.8 ?C (98.2 ?F) 36.6 ?C (97.9 ?F) 36.6 ?C (97.9 ?F) TempSrc: Oral Oral Temporal Artery SpO2: 97% 99% 98% 97% Weight: Height: ACTIVE PROBLEM LIST Ataxia S/P Cva Essential Hypertension Mixed Hyperlipidemia History of Stroke Bmi 40.0-44.9, Adult (Hcc) Cad (Coronary Artery Disease) Nstemi (Non-St Elevated Myocardial Infarction) ([facility]) Cerebrovascular Disease Aortic Stenosis PAST MEDICAL HISTORY Diagnosis Date - Cerebrovascular disease 10/22/2018 - High blood pressure - HLD (hyperlipidemia) - Stroke (HCC) PAST SURGICAL HISTORY Procedure Laterality Date - CARDIAC CATH 10/21/2018 [facility] - TONSILLECTOMY AND ADENOIDECTOMY HX FAMILY HISTORY Problem Relation Age of Onset - Diabetes Father - Thyroid Sister - Cancer Mother thyroid - Diabetes Mother - Hypertension Mother Social History: Social History Tobacco Use - Smoking status: Never Smoker - Smokeless tobacco: Never Used Substance Use Topics - Alcohol use: No - Drug use: No No current facility-administered medications on file prior to encounter. Current Outpatient Medications on File Prior to Encounter: Hydrochlorothiazide 12.5 mg capsule Take 1 capsule by mouth once daily. simvastatin (ZOCOR) 40 mg tablet Take 1 tablet by mouth daily at bedtime. lisinopril (ZESTRIL, PRINIVIL) 40 mg tablet Take 1 tablet by mouth once daily. MULTIVITAMIN ORAL Take by mouth. Aspirin 81 mg ORAL Tab Take 81 mg by mouth. Current Facility-Administered Medications: [MAR Hold due to Transfer] heparin 3,000 Units in NaCl 0.9% 500 mL irrigation 3,000 Units IRRIGATION ONE TIME Scott Helms [MAR Hold due to Transfer] PHENYLephrine 20 mg in NaCl 0.9% 250 mL (NEOSYNEPHRINE) 25-300 mcg/min INTRAVENOUS ONE TIME Scott Carringtonrra [MAR Hold due to Transfer] aminocaproic acid 10 g in NaCl 0.9% 250 mL (AMicAR) 1 g/hr INTRAVENOUS ONE TIME Scott Helms [MAR Hold due to Transfer] dexmedetomidine 400 mcg in NaCl 0.9% 100 mL (PRECEDEX) 0.2-0.7 mcg/kg/hr INTRAVENOUS ONE TIME Scott Carringtonrra [MAR Hold due to Transfer] EPINEPHrine 4 mg in NaCl 0.9% 250 mL 0.5-10 mcg/min INTRAVENOUS ONE TIME Scott Helms [MAR Hold due to Transfer] insulin regular iv infusion 100 units in NaCl 0.9% 100 mL - AK CARD SURG NOMOGRAM 0-12 Units/hr INTRAVENOUS ONE TIME Scott Helms [OCT Hold due to Transfer] nitroglycerin 100 mg in D5W 250 mL 5-20 mcg/min INTRAVENOUS ONE TIME Scott Helms [OCT Hold due to Transfer] NORepinephrine 16 mg in NaCl 0.9% 250 mL (LEVOPHED) 0-20 mcg/min INTRAVENOUS ONE TIME Scott Helms [OCT Hold due to Transfer] PHENYLephrine iv infusion 10 mg in NaCl 0.9% 250 mL (KASI-SYNEPHRINE) 0-100 mcg/min INTRAVENOUS ONE TIME Scott Helms [OCT Hold due to Transfer] dextrose 50 g, insulin regular human 10 Units, potassium chloride 80 mEq, lidocaine 100 mg, magnesium sulfate 4 g in electrolyte-a (PLASMA-LYTE A) 1,000 mL solution MISCELLANEOUS ONE TIME Scott Helms [OCT Hold due to Transfer] dextrose 25 g, insulin regular human 5 Units, potassium chloride 20 mEq, lidocaine 50 mg, magnesium sulfate 2 g in electrolyte-a (PLASMA-LYTE A) 500 mL solution MISCELLANEOUS ONE TIME Scott Helms vancomycin iv piggyback 1 g in D5W 200 mL (VANCOCIN) 1 g INTRAVENOUS ONCE Scott Helms ceFAZolin 3 g in D5W 100 mL (ANCEF) 3 g INTRAVENOUS ONCE Tristin Fields (Pa) [MAR Hold due to Transfer] lisinopril 2.5 mg tab(s) 2.5 mg ORAL DAILY Harmony Miles [OCT Hold due to Transfer] perflutren lipid microspheres 1.1 mg/mL 1.3 mL injection (DEFINITY) 1.3 mL INTRAVENOUS DIRECTED PRN David Kumari [OCT Hold due to Transfer] ipratropium-albuterol 3 mL nebulizer solution (DUONEB) 3 mL INHALATION TID Flakita (Sheri) TITA Baker.SHERI 3 mL at 10/28/181951 [MAR Hold due to Transfer] aspirin, enteric coated 81 mg tab(s) 81 mg ORAL DAILY Yair Santiago 81 mg at 10/29/18512 [MAR Hold due to Transfer] atorvastatin 20 mg tab(s) (LIPITOR) 20 mg ORAL AT BEDTIME Yair Oli Walkersteven 20 mg at 10/28/181943 [MAR Hold due to Transfer] carvedilol 3.125 mg tab(s) (COREG) 3.125 mg ORAL BID w MEALS Harmony Chávez Floro 3.125 mg at 10/29/18 0512 [MAR Hold due to Transfer] NaCl 0.9% 3-5 mL 3-5 mL INTRAVENOUS q 12 H Yair Santiago 5 mL at 10/28/182099 [OCT Hold due to Transfer] NaCl 0.9% 2-10 mL 2-10 mL INTRAVENOUS q 12 H Yair Oli Walkersteven 5 mL at 10/27/182004 [OCT Hold due to Transfer] magnesium hydroxide 400 mg/5 mL 30 mL (MOM) 30 mL ORAL DAILY PRN Yair Santiago [OCT Hold due to Transfer] docusate sodium 100 mg cap(s) (COLACE) 100 mg ORAL BID PRN Yair Santiago 100 mg at 10/27/18 174 [OCT Hold due to Transfer] acetaminophen 650 mg tab(s) (TYLENOL) 650 mg ORAL q 6 H PRN Yair Santiago [OCT Hold due to Transfer] melatonin 6 mg tab(s) 6 mg ORAL DAILY (8 PM) Yair Oli Pamela 6 mg at 10/28/181943 [OCT Hold due to Transfer] morphine 4 mg injection 4 mg INTRAVENOUS q 3 H PRN Yair Santiago [OCT Hold due to Transfer] nitroglycerin sublingual 0.4 mg tab(s) (NITROQUICK) 0.4 mg SUBLINGUAL PRN Yair Santiago [OCT Hold due to Transfer] ondansetron (PF) 4 mg injection (ZOFRAN) 4 mg INTRAVENOUS q 6 H PRN Yair Santiago [MAR Hold due to Transfer] oxyCODONE-acetaminophen 5-325 mg 1 tablet (PERCOCET) 1 tablet ORAL q 6 H PRN Yair Santiago [OCT Hold due to Transfer] polyvinyl alcohol-povidone 1.4-0.6 % 1 Drop (REFRESH) 1 Drop BOTH EYES PRN Yair Santiago [MAR Hold due to Transfer] prochlorperazine 5 mg injection (COMPAZINE) 5 mg INTRAVENOUS q 4 H PRN Yair Santiago [OCT Hold due to Transfer] saliva substitute combo no.9 15 mL (BIOTENE mouthwash) 15 mL MUCOUS MEMBRANE (TOPICAL MOUTH AND THROAT) PRN Yair Mottaanselmo [MAR Hold due to Transfer] sodium chloride 0.65 % 2 Crooks (AYR, OCEAN) 2 Crooks EACH NOSTRIL PRN Yair Santiago [MAR Hold due to Transfer] Lip Protectant with Sunscreen SPF 15 1 application Stick (Blistex) 1 application TOPICAL PRN Yair Mottaanselmo [MAR Hold due to Transfer] albuterol 2.5 mg /3 mL (0.083 %) 2.5 mg (PROVENTIL) 2.5 mg INHALATION q 4 H PRN Yair Mottaanselmo [MAR Hold due to Transfer] aluminum-magnesium hydroxide-simethicone 200-200-20 mg/5 mL 30 mL (MAALOX,MYLANTA,MAG-AL PLUS) 30 mL ORAL q 6 H PRN Yair Mottaanselmo [MAR Hold due to Transfer] benzocaine-menthol 1 Lozenge (CEPACOL) 1 Lozenge MUCOUS MEMBRANE (TOPICAL MOUTH AND THROAT) q 2 H PRN Yair Mottaanselmo [MAR Hold due to Transfer] diphenhydrAMINE 25 mg (BENADRYL) 25 mg ORAL q 4 H PRN Yair Mottaanselmo [MAR Hold due to Transfer] guaiFENesin-dextromethor mcfarland 100-10 mg/5 mL 10 mL oral liquid (ROBITUSSIN DM) 10 mL ORAL q 4 H PRN Yair Mottaanselmo [MAR Hold due to Transfer] hydrALAZINE 25 mg tab(s) (APRESOLINE) 25 mg ORAL q 6 H PRN Yair Walkersteven 25 mg at 10/23/18 0905 Allergies: ALLERGIES No Known Allergies DOS EXAM: Adequate NPO Status: Yes Anesthetic Risks, Benefits, Alternatives, Personnel and Consent Discussed: Yes Patient agrees to proceed: Yes Previous Anesthesia: No history of adverse event Airway Assessment: MP 3; Neck ROM: Full ROM without neurologic symptoms; Airway Evaluation: Short Neck and Thick neck Symptoms of Sleep Apnea: Hypertension, BMI > 35, Age over 50 (78 year old), Neck circumference > 15.75 inches and Male gender Dentition: Poor dentition Chipped, loose and/or missing Additional Physical Exam: Lungs: Patient health status unchanged since recent history and physical. See history and physical for exam findings. Cardiac: Patient health status unchanged since recent history and physical. See history and physical for exam findings. Additional Pertinent Findings: N/A Blood Products: Will accept Blood/Blood Products Anesthetic Plan: General Anesthetic Monitoring: Standard ASA Monitors, Invasive Hemodynamic Monitoring Arterial line, Introducer, PA Catheter, KOKI - patient denies history of stricture or varices and CVP, Potential Prolonged Intubation, Potential ICU Admission Postop and Potential Multiple Transfusions Pain Management Plan: per Surgical Service ASA Class: 4 Other Medical Problems: None Chronic Beta Whit medication administered within 24 hours: Yes I have interviewed and examined the patient. I have reviewed the medical record and/or the pre-anesthesia evaluation, pertinent labs, and test results. Significant changes in the patient's condition since the History and Physical, not otherwise documented in primary service progress notes: No This contains updated information obtained within 48 hours of Surgery/Procedure. SIGNATURE: Marin Velasquez MD PATIENT NAME: Harrison Milligan DATE: October 29, 2018 TIME: 7:21 AM CSN: [id number] Normal [facility] Activated PTTon 10-29-2018 aPTT Coag (Bld) [Time] 28.8 s Normal 23.0-32.4 [facility] Comment on above: Result Comment: Note : New Reference Range Unfractionated Heparin Therapeutic Ranges: Standard Heparin Nomogram: 53 to 78 seconds (anti-Xa level of 0.3 to 0.7 U/mL) Low Dose/ACS Nomogram: 49 to 67 seconds (anti-Xa level of 0.2 to 0.5 U/mL) Stroke Treatment Nomogram: 49 to 67 seconds (anti-Xa level of 0.2 to 0.5 U/mL) Note: The APTT therapeutic range has been determined for the current lot of laboratory APTT reagent in use throughout the [facility]. Performed By: #### P 8 #### [facility] [address] [place] [address] Basic Panelon 10-29-2018 Creatinine [Mass/Vol] 1.11 mg/dL Normal 0.67-1.17 [facility] Comment on above: Performed By: #### P 8 #### [place] [address] Anion gap [Moles/Vol] 12 mmol/L Normal 8-16 [facility] Comment on above: Performed By: #### P 8 #### [facility] [address] [place], [place] [address] CO2 [Moles/Vol] 21 mmol/L Normal 21-32 [facility] Comment on above: Performed By: #### P 8 #### [facility] [facility] [place], [place] [address] Calcium [Mass/Vol] 8.3 mg/dL Low 8.5-10.1 [facility] Comment on above: Performed By: #### P 8 #### [facility] [address] [place], [place] [address] Glucose [Mass/Vol] 138 mg/dL High 70-99 [facility] Comment on above: Performed By: #### P 8 #### [facility] [address] [place], [place] [address] Urea nitrogen [Mass/Vol] 21 mg/dL High 7-18 [facility] Comment on above: Performed By: #### P 8 #### [facility] [address] [place], [place] [address] Chloride [Moles/Vol] 113 mmol/L High 98-107 [facility] Comment on above: Performed By: #### P 8 #### [facility] [address] [place], [place] [address] Potassium [Moles/Vol] 5.0 mmol/L Normal 3.5-5.1 [facility] Comment on above: Performed By: #### P 8 #### [facility] [address] [place], [place] [address] Sodium [Moles/Vol] 141 mmol/L Normal 136-145 [facility] Comment on above: Performed By: #### P 8 #### [facility] [address] [place], [place] [address] Blood Gas Arterialon 019 Base Excess -5.9 mmol/L Low -3.0-3.0 [facility] Comment on above: Performed By: #### P 8 #### [facility] [address] [place], [place] [address] HCO3 (Bld) [Moles/Vol] 19.0 mmol/L Low 21.0-28.0 [facility] Comment on above: Performed By: #### P 8 #### [facility] [address] [place], [place] [address] O2% Sat Arterial 93.3 % Low 96.0-100.0 [facility] Comment on above: Performed By: #### P 8 #### [facility] [address] [place], [place] [address] PCO2 Arterial 37.3 mm Hg Normal 35.0-45.0 [facility] Comment on above: Performed By: #### P 8 #### [facility] [address] [place], [place] [address] pH Arterial 7.327 Low 7.350-7.450 [place] [facility] Comment on above: Performed By: #### P 8 #### [facility] [address] [place], [place] [address] PO2 Arterial 73.1 mm Hg Low 83.0-108.0 [place] [facility] Comment on above: Performed By: #### P 8 #### [facility] [address] [place], [place] [address] FIO2 40 % Normal [facility] Comment on above: Performed By: #### P 8 #### [facility] [address] [place], [place] [address] Base Excess -5.0 mmol/L Low -3.0-3.0 [facility] Comment on above: Performed By: #### P T #### [facility] [address] [place], [place] [address] HCO3 (Bld) [Moles/Vol] 21.2 mmol/L Normal 21.0-28.0 [facility] Comment on above: Performed By: #### P T #### [facility] [address] [place], [place] [address] O2% Sat Arterial 93.9 % Low 96.0-100.0 [facility] Comment on above: Performed By: #### P T #### [facility] [address] [place], [place] [address] PCO2 Arterial 45.5 mm Hg High 35.0-45.0 [facility] Comment on above: Performed By: #### P T #### [facility] [address] [place] [address] pH Arterial 7.290 Low 7.350-7.450 [facility] Comment on above: Performed By: #### P T #### [facility] [address] [place] [address] PO2 Arterial 80.7 mm Hg Low 83.0-108.0 [facility] Comment on above: Performed By: #### P T #### [facility] [address] [place] [address] FIO2 100 % Normal [facility] Comment on above: Performed By: #### P T #### [facility] [address] [place] [address] CG8 Arterial Panel (i-STAT)o n 10-29-2018 Base Excess (i-STAT) -6.0 mmol/L Normal -2.0 to 3.0 [facility] Comment on above: Performed By: #### P T #### [facility] [address] [place] [address] Glucose [Mass/Vol] 131 mg/dL High 70-99 [facility] Comment on above: Performed By: #### P T #### [facility] [address] [place] [address] HCO3 (Bld) [Moles/Vol] 19.9 mmol/L Low 22.0-26.0 [facility] Comment on above: Performed By: #### P T #### [facility] [address] [place] [address] Hematocrit (Bld) [Volume fraction] 28 %PCV Low 38-51 [facility] Comment on above: Performed By: #### P T #### [facility] [address] [place] [address] Hemoglobin (Bld) [Mass/Vol] 9.5 g/dL Low 12.0-17.0 [facility] Comment on above: Performed By: #### P T #### [facility] [address] [place], [place] [address] Ionized Calcium (iSTAT) 5.3 mg/dL Normal 4.5-5.3 [facility] Comment on above: Performed By: #### P T #### [facility] [address] [place], [place] [address] O2% Sat. (i-STAT) 96.0 % Normal 95.0-98.0 [facility] Comment on above: Performed By: #### P T #### [facility] [address] [place], [place] [address] Oxygen (Bld) [Partial pressure] 82.0 mm Hg Normal 80.0-105.0 [facility] Comment on above: Performed By: #### P T #### [facility] [address] [place], [place] [address] PCO2 (i-STAT) 36.2 mm Hg Normal 35.0-45.0 [facility] Comment on above: Performed By: #### P T #### [facility] [address] [place], [place] [address] pH (Bld) 7.348 [pH] Low 7.350-7.450 [facility] Comment on above: Performed By: #### P T #### [facility] [address] [place], [place] [address] Potassium [Moles/Vol] 3.9 mmol/L Normal 3.5-4.9 [facility] Comment on above: Performed By: #### P T #### [facility] [address] [place], [place] [address] Sodium [Moles/Vol] 143 mmol/L Normal 138-146 [facility] Comment on above: Performed By: #### P T #### [facility] [address] [place], [place] [address] Total CO2 (i-STAT) 21 mmol/L Low 23-27 [facility] Comment on above: Performed By: #### P T #### [facility] [address] [place], [place] [address] CG8 Venous Panel (i-STAT)on 10-29-2018 Base Excess (i-STAT) -2.0 mmol/L Normal -2.0 to 3.0 [facility] Comment on above: Performed By: #### P T #### [facility] [address] [place] [address] Glucose [Mass/Vol] 128 mg/dL High 70-99 [facility] Comment on above: Performed By: #### P T #### [facility] [address] [place], [place] [address] HCO3 (Bld) [Moles/Vol] 23.8 mmol/L Normal 23.0-28.0 [facility] Comment on above: Performed By: #### P T #### [facility] [address] [place] [address] Hematocrit (Bld) [Volume fraction] 33 %PCV Low 38-51 [facility] Comment on above: Performed By: #### P T #### [facility] [address] [place] [address] Hemoglobin (Bld) [Mass/Vol] 11.2 g/dL Low 12.0-17.0 [facility] Comment on above: Performed By: #### P T #### [facility] [address] [place] [address] Ionized Calcium (iSTAT) 4.7 mg/dL Normal 4.5-5.3 [facility] Comment on above: Performed By: #### P T #### [facility] [address] [place] [address] O2% Sat. (i-STAT) 80.0 % Normal 35.0-85.0 [facility] Comment on above: Performed By: #### P T #### [facility] [address] [place], [place] [address] Oxygen (Bld) [Partial pressure] 47.0 mm Hg Normal 20.0-50.0 [facility] Comment on above: Performed By: #### P T #### [facility] [address] [place], [place] [address] PCO2 (i-STAT) 42.7 mm Hg Normal 41.0-51.0 [facility] Comment on above: Performed By: #### P T #### [facility] [address] [place] [address] pH (Bld) 7.353 [pH] Normal 7.310-7.410 [facility] Comment on above: Performed By: #### P T #### [facility] [address] [place] [address] Potassium [Moles/Vol] 5.2 mmol/L High 3.5-4.9 [facility] Comment on above: Performed By: #### P T #### [facility] [address] [place] [address] Sodium [Moles/Vol] 138 mmol/L Normal 138-146 [facility] Comment on above: Performed By: #### P T #### [facility] [address] [place] [address] Total CO2 (i-STAT) 25 mmol/L Normal 24-29 [facility] Comment on above: Performed By: #### P T #### [facility] [address] [place] [address] ECG COMPLETEon 10-29-2018 ECG COMPLETE NAME : ALVARO MILLIGAN PID : [id number] : 1940 Gender : Male Race : ORD : [id number] Procedure Date : Oct 29 2018 16:48:26 Edit Date : Oct 30 2018 17:50:58 Diagnosis:Atrial-paced rhythm with prolonged AV conduction MINIMAL VOLTAGE CRITERIA FOR LVH, MAY BE NORMAL VARIANT INFERIOR INFARCT , AGE UNDETERMINED T WAVE ABNORMALITY, CONSIDER LATERAL ISCHEMIA ABNORMAL ECG NO PREVIOUS ECGS AVAILABLE Confirmed by MD ARCE FERNANDO ([id number]) on 10/30/2018 5:50:51 PM Ventricular Rate : 86 BPM Atrial Rate : 86 BPM P-R Interval : 348 ms QRS Duration : 92 ms Q-T Interval : 390 ms QTC Calculation(Bezet) : 466 ms P Princess [place] : 5 degrees R Princess [place] : -4 degrees T Princess [place] : 141 degrees Test Reason : Post-OP Location : 6 : [place] [address] Overread By : MD ARCE FERNANDO Edited By : MD ARCE FERNANDO Referred By : RUSTAM KEBEDE Acquired by : LINETTE MATOS [facility] Hemogramon 10-29-2018 Erythrocyte distribution width (RBC) [Ratio] 12.3 % Normal 11.6-14.4 [facility] Comment on above: Performed By: #### P 8 #### [facility] [address] [place] [address] Hematocrit (Bld) [Volume fraction] 43.7 % Normal 40.1-51.0 [facility] Comment on above: Performed By: #### P 8 #### [facility] [address] [place], [place] [address] Hemoglobin (Bld) [Mass/Vol] 14.6 g/dL Normal 13.7-17.5 [facility] Comment on above: Performed By: #### P 8 #### [facility] [address] [place] [address] MCH (RBC) [Entitic mass] 30.9 pg Normal 25.7-32.2 [facility] Comment on above: Performed By: #### P 8 #### [facility] [address] [place] [address] MCHC (RBC) [Mass/Vol] 33.4 % Normal 32.3-36.5 [facility] Comment on above: Performed By: #### P 8 #### [facility] [address] [place] [address] MCV (RBC) [Entitic vol] 92.6 fL Normal 83.2-95.6 [facility] Comment on above: Performed By: #### P 8 #### [facility] [address] [place] [address] Platelet mean volume (Bld) [Entitic vol] 11.0 fL Normal 8.7-12.0 [facility] Comment on above: Performed By: #### P 8 #### [facility] [address] [place], [place] [address] Platelets (Bld) [#/Vol] 127 thou/cmm Low 141-365 [facility] Comment on above: Performed By: #### P 8 #### [facility] [address] [place], [place] [address] RBC (Bld) [#/Vol] 4.72 mil/cmm Normal 4.63-6.08 [facility] Comment on above: Performed By: #### P 8 #### [facility] [address] [place], [place] [address] RDW SD 42.1 fl Normal 36.1-45.8 [facility] Comment on above: Performed By: #### P 8 #### [facility] [address] [place], [place] [address] WBC (Bld) [#/Vol] 15.67 thou/cmm High 4.23-9.07 [facility] Comment on above: Performed By: #### P 8 #### [facility] [address] [place], [place] [address] Magnesium Bloodon 10-29-2018 Magnesium [Mass/Vol] 2.4 mg/dL Normal 1.6-2.6 [facility] Comment on above: Performed By: #### P 8 #### [place] [id number] NURSING PROGon 10-29-2018 NURSING PROG HNO ID: [id number] Author: Dave LeachRn) LOKESH Diaz Service: Nursing Author Type: Registered Nurse Type: Nursing Progress Note Filed: 10/29/2018 10:26 PM Note Text: Pt extubated to 6L O2 per NC without incident. Pt awake, follows all commands, speech somewhat hoarse but clear. Normal [facility] NURSING PROG HNO ID: [id number] Author: Dre LeachRn) LOKESH Vincent Service: Nursing Author Type: Registered Nurse Type: Nursing Progress Note Filed: 10/29/2018 6:41 PM Note Text: No longer pacing the atria. Patient is NSR with rate > 60 and improved blood pressure hemodynamic monitoring numbers. Has had 1000 ml of crystalloids since arrival to the unit. Normal [facility] NURSING PROG HNO ID: [id number] Author: Dre LeachRn) Melisa RN Service: Nursing Author Type: Registered Nurse Type: Nursing Progress Note Filed: 10/29/2018 6:39 PM Note Text: Patient arrived to unit from cardiac surgery room with BASKET MAKER, custom leather products maker attending, perfusion, and surgeon. Patient arrived with atria paced at 86 with ma of 12. Underlying told to be sinus rhythm but hypotensive. Kasi, epi, insulin, precedex, amicar and IV fluids as charted in Epic. Pleural and mediastinal chest tubes to -20 cm of continuous suction. Bloody drainage to collection chamber. 50 ml of drainage when he arrived on the unit. Indwelling cedeno catheter with pink-colored urine present. Patient woke up abruptly reaching for endotracheal tube, and he was medicated with morphine and versed IVP to allow for sedation and comfort. He was then prepared for family visiting. Normal [facility] OPERATIVE NOon 10-29-2018 OPERATIVE NO HNO ID: [id number] Author: Scott Helms Service: Cardiac Surgery Author Type: Physician Type: Operative Report Filed: 11/18/2018 8:10 AM Note Text: [facility] - Operative Report HARRISON MILLIGAN : 1940 AGE: 78. SEX: M PATIENT TYPE: I HOSP SVC: INTM LOCATION: [id number] ATTENDING PHYSICIAN: Scott Helms MD CSN NUMBER: [id number] DATE OF SURGERY/PROCEDURE: 10/29/2018 INCISION/PROCEDURE START TIME: 8:50 AM INCISION CLOSE/PROCEDURE END TIME: 3:22 PM PREOPERATIVE DIAGNOSIS: Coronary artery disease; critical aortic stenosis; non-ST elevation myocardial infarction; hewwk-om-lxcmzox diastolic failure. POSTOPERATIVE DIAGNOSIS: Coronary artery disease; critical aortic stenosis; non-ST elevation myocardial infarction; fscch-gr-iblvcoq diastolic failure. SURGEON: Scott Helms MD SCHOOL SOCIAL WORKER: 1. Ms. Eckert. 2. Ms. fields. SURGERY/PROCEDURE: Coronary artery bypass graft x3 with left internal mammary artery to left anterior descending artery; reverse saphenous vein graft to the diagonal branch and the obtuse marginal branch; with endoscopic vein harvesting; aortic valve replacement with 23-mm St. Benjy Trifecta pericardial prosthesis. ANESTHESIA: Performed under general anesthesia. Cross-clamp time and the perfusion time are per the perfusion record. FINDINGS: Include the following; preoperatively with moderate PA hypertension with PA pressures in the mid 40s. KOKI confirmed thifao-ex-nkowhmrz aortic stenosis and also at least moderate AI. LV function was well preserved. There was moderate-to- severe LVH. Intraoperatively, found cardiomegaly and LVH, extremely heavily calcified aortic valve consistent with kntuzxgn-ci-bstgtu aortic stenosis. Postop with excellent graft flows, normal LV function, and normally functioning bioprosthesis in the aortic position, and normal PA pressures. COMPLICATIONS: No complications. SPECIMENS: Included the resected aortic valve. INDICATIONS: This 78-year-old man presents with progressive anginal symptoms as well as evidence of ygtep-xv-cmmochr diastolic failure. He was found on echo to have severe critical aortic stenosis, heavily calcified aortic valve, significant mitral annular calcification without significant mitral valve regurgitation or stenosis, normal LV function with LVH. Catheterization reveals 60% eccentric mid distal left main lesion as well as approximately 80% proximal long lesion of the LAD. No significant lesions in the right coronary artery or circumflex artery proper. We recommended combined aortic valve replacement and myocardial revascularization. The procedure, intended benefits, potential complications, and staff on the case were discussed with him at length. All questions were answered. He understood and he consented to proceed. DESCRIPTION OF PROCEDURE: Preoperative huddle was performed. He was brought to the operating room and placed on the operative table in supine position. Central venous, pulmonary arterial, and radial artery accesses were obtained. He was given general anesthesia and intubated. A KOKI probe was placed. A Cedeno catheter was placed. He was prepped and draped sterilely. He received perioperative IV antibiotics, beta-blockade, aspirin, and IV heparin. KOKI was performed revealing the aforementioned findings. PA pressures were in the mid 40s. A time-out was performed. A median sternotomy was made. The left internal mammary artery was harvested as a skeletonized graft. There was excellent pulsatile flow. Simultaneously, portions of the left greater saphenous vein were harvested in an endoscopic fashion. The harvest sites were closed in layers with absorbable suture. The sternal base wad operator adjuster was placed in the wound. A pericardial well was made. The ascending aorta was free of any palpable atherosclerotic disease. LV function overall appeared well-preserved. A very hypertrophied and enlarged heart. He was heparinized and cannulated for cardiopulmonary bypass through the aorta and right atrium. After an adequate ACT was achieved, cardiopulmonary bypass was initiated and ventilation was stopped. The left ventricle was vented via the right superior pulmonary vein. A retrograde cardioplegia catheter placed in coronary sinus. The aortic cross-clamp was applied and the heart was arrested with 1500 mL of combined antegrade and retrograde cold blood cardioplegia. Thereafter, boluses of cardioplegia administered every 15-20 minutes. The aforementioned vein graft anastomoses to the obtuse marginal branch and diagonal branch were constructed with running 7-0 Prolene suture end-to-side. Prior to the completion of each anastomosis, each anastomosis was patent to a 1 to 1.5-mm probe. The field was flooded with CO2. An aortotomy was made. The aortic valve was exposed. It was a trileaflet valve, extremely heavily calcified with completely frozen leaflets and heavy calcification of the anulus. The leaflets were excised, the anulus was debrided, and the anulus and the ventricle were irrigated of all debris. We sized to a 23-mm St. Benjy Trifecta pericardial prosthesis, which was sutured in place with 2 Ethibond pledgeted sutures with pledgets on the aortic side. The valve seated well. The sutures were then tied down by hand and were cut. The aortotomy was closed with running 4-0 Prolene suture in double layer. Proximal anastomoses were then constructed with a running 6-0 Prolene suture end-to-side. The left internal mammary artery to left anterior descending artery anastomosis was constructed with running 7-0 Prolene suture end-to-side. director human services was administered. An aortic cross- clamp was removed. The heart regained spontaneous sinus rhythm. Ventilation was then resumed. Right atrial and right ventricular pacing leads were placed and secured to the skin. Atrial pacing was initiated. The heart was allowed to fill and eject. We had absence of any intracavitary air. We removed our vents, weaned from bypass, decannulated, and reversed heparin with protamine. KOKI now showed normally functioning bioprosthesis in the aortic position, normal LV function, moderately mplxsn-wi-iufbnr LVH, no mitral valve lesions. A left pleural tube and mediastinal tube were placed and secured to the skin. Hemostasis was then assiduously obtained. The sternum was closed with wires. Pectoral fascia, subcutaneous tissues, and skin were closed in layers with absorbable suture. Dry sterile dressings were applied. Sponge counts and needle counts were correct. The patient is going to be returned to CVICU in good condition after a sign-out. MD FALLON Sw[place]:[id number] /[id number] Normal [facility] PROGRESSon 10-29-2018 PROGRESS HNO ID: [id number] Author: Héctor Courtney Jr. Service: Critical Care Author Type: Physician Type: Progress Notes Filed: 10/29/2018 10:57 PM Note Text: MICU - PROGRESS NOTE SERVICE DATE: October 29, 2018 Admission Date: 10/22/2018 AGE: [age] year old LOS: 7 days Subjective Cc: acute anticipated respiratory insufficiency Asked to reassess patient for appropriateness of extubation Following commands, no secretions. Noted that patient was a difficult airway Weaning parameters and blood gas reviewed prior to extubation Objective PROBLEMS: ACTIVE PROBLEM LIST Ataxia S/P Cva Essential Hypertension Mixed Hyperlipidemia History of Stroke Bmi 40.0-44.9, Adult (Hcc) Cad (Coronary Artery Disease) Nstemi (Non-St Elevated Myocardial Infarction) (Hcc) Cerebrovascular Disease Aortic Stenosis PAST MEDICAL HISTORY Diagnosis Date - Cerebrovascular disease 10/22/2018 - High blood pressure - HLD (hyperlipidemia) - Stroke (HCC) PAST SURGICAL HISTORY Procedure Laterality Date - CARDIAC CATH 10/21/2018 [facility] - TONSILLECTOMY AND ADENOIDECTOMY HX Social History Socioeconomic History Marital status: Spouse name: Not on file Number of children: Not on file Years of education: Not on file Highest education level: Not on file Social Needs Financial resource strain: Not on file Food insecurity - worry: Not on file Food insecurity - inability: Not on file Transportation needs - medical: Not on file Transportation needs - non-medical: Not on file Occupational History 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 VITAL SIGNS (last 24hrs min/max): Temp Av.8 ?C (98.3 ?F) Min: 36.5 ?C (97.7 ?F) Max: 37.2 ?C (99 ?F) Pulse Av.7 Min: 62 Max: 86 Arterial BP 1 Min: 88/52 Max: 129/65 Cuff BP Min: 103/52 Max: 148/62 Pain Level: 0 Vital signs reviewed. BP 148/62 Pulse 76 Temp (Src) 99 (Cedeno Thermistor) Resp 21 Ht 5' 10.984 (1.80m) Wt 304 lb 3.8 oz (138.0kg) SpO2 95% BMI 42.45 kg/(m2). Temp (24hrs), Av.8 ?C (98.3 ?F), Min:36.5 ?C (97.7 ?F), Max:37.2 ?C (99 ?F) NET FLUID BALANCE Intake/Output Summary (Last 24 hours) at 10/29/2018 2151 Last data filed at 10/29/2018 1900 Gross per 24 hour Intake 2314 ml Output 1140 ml Net 1174 ml MEDICATIONS Current Facility-Administered Medications Medication Dose Route Frequency - morphine 2-4 mg injection 2-4 mg INTRAVENOUS q 1 H PRN - ipratropium-albuterol 3 mL nebulizer solution (DUONEB) 3 mL INHALATION q 4 H while awake - insulin regular iv infusion 100 units in NaCl 0.9% 100 mL - AK CARD SURG NOMOGRAM 0-12 Units/hr INTRAVENOUS CONTINUOUS - insulin regular human iv bolus 10 Units 10 Units INTRAVENOUS PRN - dextrose 50% in water 25 mL syringe 12.5 g INTRAVENOUS PRN - dexmedetomidine 400 mcg in NaCl 0.9% 100 mL (PRECEDEX) 0.2-0.7 mcg/kg/hr INTRAVENOUS CONTINUOUS - potassium chloride iv piggyback 20 mEq/100 mL 20 mEq INTRAVENOUS PRN - magnesium sulfate in water 2 g in sterile water 50 ml 2 g INTRAVENOUS PRN(NO DISPENSE) - acetaminophen 650 mg tab(s) (TYLENOL) 650 mg ORAL q 6 H PRN - enoxaparin 40 mg injection (LOVENOX) 40 mg SUBCUTANEOUS DAILY - NaCl 0.9% iv infusion 50 mL/hr INTRAVENOUS CONTINUOUS - EPINEPHrine 4 mg in NaCl 0.9% 250 mL 0.5-10 mcg/min INTRAVENOUS CONTINUOUS - PHENYLephrine iv infusion 10 mg in NaCl 0.9% 250 mL (KASI-SYNEPHRINE) 0-100 mcg/min INTRAVENOUS CONTINUOUS - ceFAZolin 3 g in D5W 100 mL (ANCEF) 3 g INTRAVENOUS q 6 HR - vancomycin iv piggyback 1 g in D5W 200 mL (VANCOCIN) 1 g INTRAVENOUS q 12 HR - ondansetron (PF) 4 mg injection (ZOFRAN) 4 mg INTRAVENOUS q 6 H PRN - oxyCODONE-acetaminophen 5-325 mg 1-2 tablet (PERCOCET) 1-2 tablet ORAL q 4 H PRN - atorvastatin 20 mg tab(s) (LIPITOR) 20 mg ORAL AT BEDTIME - NaCl 0.9% 2-10 mL 2-10 mL INTRAVENOUS q 12 H - albuterol 2.5 mg /3 mL (0.083 %) 2.5 mg (PROVENTIL) 2.5 mg INHALATION q 4 H PRN Lines, Drains, and Airways Line Peripheral 10/21/18 0700 Admission to Hospital Short Right Wrist 22 Gauge 8 days Arterial Line 10/29/18 Arterial Line Left Radial less than 1 day Central Line Quadruple Lumen 10/29/18 Non-tunneled Right Neck less than 1 day Peripheral 10/29/18 Right Forearm 20 Gauge less than 1 day Drain Chest Tube 10/29/18 Mediastinal 28 Fr less than 1 day Chest Tube 10/29/18 Mediastinal 32 Fr less than 1 day Indwelling Urinary Catheter 10/29/18 Temperature Monitoring 16 Fr less than 1 day Airway Airway Endotracheal Tube 10/29/18 less than 1 day PHYSICAL EXAM PERFORMED: General: no acute distress Cardiovascular: Regular rhythm Respiratory: Reduced breath sounds bilat n bases but o/w clear Abdomen: Soft and Nontender Extremities: Edema- No Neurologic: Awake, oriented and Follows commands Respiratory/Nursing Documentation: O2 Therapy: Ventilator (10/29/181999) Invasive Ventilator Mode: Synchronized Intermittent Mandatory Ventilation;Pressure Support Ventilation (10/29/181922) Set Ventilator Respiratory Rate (BPM): 12 (10/29/181922) Total Respiratory Rate (BPM): 20 (10/29/181922) Tidal Volume Set (mL): 550 (10/29/181922) Exhaled Tidal Volume (mL): 540 (10/29/181922) Minute Volume (L): 11.1 (10/29/181922) Peak Inspiratory Pressure (cm H2O): 17 (10/29/181922) PEEP/CPAP (cm H2O): 5 (10/29/182019) HEMODYNAMIC DATA: Reviewed DATA: Diagnostic tests reviewed for today's visit, films/specimens were personally reviewed by me: Most recent labs and imaging results. LABS: Recent Labs 10/29/18 1615 WBC 15.67* RBC 4.72 HB 14.6 HCT 43.7 MCV 92.6 PLT 127* GLUC 138* BUN 21* CREAT 1.11 NA 141 K 5.0 CHLOR 113* CO2 21 CA 8.3* PTSEC 11.7 APTT 28.8 INR 1.14 MG 2.4 ABG: Recent Labs 10/29/18 2105 10/29/18 1615 10/29/18 1401 PH 7.327* 7.290* 7.348* PO2 73.1* 80.7* 82.0 PCO2 37.3 45.5* -- Assessment/Plan IMPRESSION: Critical Care Documentation: The patient has the following organ/system impairment(s): acute postoperative respiratory insufficiency 1. Prior difficult intubation. Good air leak at assessment 2. CAD s/p nstemi and CABG x3 3. Severe with AVR 4. Probable PATRICIA and tolerating extubation well 5. Morbid obesity Body mass index is 42.45 kg/m?. 6. Some restriction from #5 MMP CRITICAL CARE PLAN: Assessed immediately prior to extubation. No stridor and normal voice after extubation. BiPAP was on standby but doing well on NC oxygen IS, mobilize per protocol This patient has a high probability of sudden, clinically significant deterioration, which requires the highest level of physician preparedness to intervene urgently. I managed/supervised life or organ supporting interventions that required frequent physician assessment. I devoted my full attention to the direct care of this patient for the amount of time indicated below. Time I spent with family or surrogate(s) is included only if the patient was incapable of providing the necessary information or participating in medical decision making. Time devoted to teaching is not included. Discussed with staff Time spent providing critical care services: 30 minutes excluding procedures. SIGNATURE: Héctor Courtney Jr, MD PATIENT NAME: Harrison Milligan DATE: October 29, 2018 TIME: 9:51 PM Normal [facility] PROGRESS HNO ID: [id number] Author: Scott Helms Service: Cardiac Surgery Author Type: Physician Type: Progress Notes Filed: 10/29/2018 5:15 PM Note Text: CARDIOTHORACIC BRIEF OP NOTE LOG ID: [id number] SURGERY/PROCEDURE DATE: 10/29/2018 INCISION/PROCEDURE START TIME: 8:50 AM INCISION CLOSE/PROCEDURE END TIME: 3:22 PM SURGEON(S) AND SCHOOL SOCIAL WORKER(S): Surgeon(s) and Role: * Scott Helms - Primary Physician Rougher Machine Operator: Tristin Fields (Pa) Managing Partner [employer] Content Marketing [place]: Collette Eckert SA PROCEDURES AND ANESTHESIA: Procedure(s) and Anesthesia Type: * AVR W/ CARDIOPULMONARY BYPASS W/ PROSTHETIC OTHER THAN HOMOGRAFT/ STENTLESS TISSUE VALVE - General * BYPASS GRAFT ARTERY CORONARY ON-PUMP THREE CORONARY ARTERIAL GRAFTS - General Great Saphenous Vein, Left , Percutaneous endoscopic Internal Thoracic Artery, Left , Open CABG x 3 (ramos-lad; svg-diag; svg-om; evh); AVR (23 Trifecta pericardial) ANESTHESIA: General BRIEF FINDINGS: Pre: critical ; normal EF; severe LVH; mod PA htn Intra: severe , sever LVH Post: normal bioprosthetic AV function; normal LV; normal PA pressures PREOPERATIVE DIAGNOSIS: aortic stenosis and coronary artery disease POSTOPERATIVE DIAGNOSIS: aortic stenosis and coronary artery disease ESTIMATED BLOOD LOSS: 250 ml SPECIMENS: AV COMPLICATIONS: None SIGNATURE: Scott Helms MD PATIENT NAME: Harrison Milligan DATE: October 29, 2018 TIME: 5:12 PM PAGER/CONTACT #: [phone] [facility] PROGRESS HNO ID: [id number] Author: Marietta Maier Service: Cardiovascular Medicine Author Type: Nurse Practitioner Type: Progress Notes Filed: 10/29/2018 5:08 PM Note Text: CARDIOTHORACIC SURGERY POSTOP PROGRESS NOTE SERVICE DATE: 10/29/2018 SERVICE TIME: 5:00 PM Subjective S/P SURGERY: Procedure(s) (LRB): AVR W/ CARDIOPULMONARY BYPASS W/ PROSTHETIC OTHER THAN HOMOGRAFT/ STENTLESS TISSUE VALVE (N/A) BYPASS GRAFT ARTERY CORONARY ON-PUMP THREE CORONARY ARTERIAL GRAFTS (N/A) DATE OF SURGERY: 10/29/2018 POSTOP DAY #0 LOS: 7 INTERVAL EVENTS / PERTINENT ROS: Immediately post op on Kasi, Epi, Precedex, Insulin, and Amicar. Objective Admission Weight: (!) 140.2 kg (309 lb) BP 148/62 Pulse 86 Temp 36.6 ?C (97.9 ?F) (Temporal Artery) Resp 20 Ht 180.3 cm (5' 10.98) Wt (!) 138 kg (304 lb 3.8 oz) SpO2 95% BMI 42.45 kg/m? Body surface area is 2.63 meters squared. Min/Max/Average Temperature AND Blood Pressure: Temp (24hrs), Av.7 ?C (98.1 ?F), Min:36.6 ?C (97.9 ?F), Max:36.8 ?C (98.2 ?F) Systolic (24hrs), Av , Min:103 , Max:148 Diastolic (24hrs), Av, Min:41, Max:62 Intake/Output Summary (Last 24 hours) at 10/29/2018 1659 Last data filed at 10/28/2018 1900 Gross per 24 hour Intake 240 ml Output ? Net 240 ml TELEMETRY: atrial pacing PHYSICAL EXAM: General Appearance: obese, no distress and sedated Skin: Midsternal incision dry AND intact., SVG incisions dry AND intact., warm and dry Lungs: clear and respiratory effort: normal Heart: regular rhythm, S1, S2 normal and pacing wires present Abdomen: soft and non-tender Genitourinary: Cedeno intact, urine color is clear yellow Extremities: normal exam of the extremities Chest tubes intact to -20cm with sanguinous output Lines, Drains, and Airways Line Peripheral 10/21/18 0700 Admission to Hospital Short Right Wrist 22 Gauge 8 days Arterial Line 10/29/18 Arterial Line Left Radial less than 1 day Central Line Quadruple Lumen 10/29/18 Non-tunneled Right Neck less than 1 day Peripheral 10/29/18 Right Forearm 20 Gauge less than 1 day Drain Chest Tube 10/29/18 Mediastinal 28 Fr less than 1 day Chest Tube 10/29/18 Mediastinal 32 Fr less than 1 day Indwelling Urinary Catheter 10/29/18 Temperature Monitoring 16 Fr less than 1 day DATA: Diagnostic tests reviewed for today's visit: CXR reviewed with Dr. Helms. Recent Labs 10/29/18 1615 10/29/18 1401 10/29/18 1336 10/29/18 1312 10/28/18 0305 10/27/18 0505 RBC 4.72 -- -- -- -- -- 4.74 WBC 15.67* -- -- -- -- -- 6.42 HB 14.6 -- -- -- -- -- 14.5 HCT 43.7 28* 28* 29* < > -- 43.7 PLT 127* -- -- -- -- -- 154 INR 1.14 -- -- -- -- -- -- APTT 28.8 -- -- -- -- -- -- NA -- 143 140 139 < > 139 140 K -- 3.9 4.5 4.4 < > 4.6 4.4 CHLOR -- -- -- -- -- 110* 111* CO2 -- -- -- -- -- 22 23 BUN -- -- -- -- -- 34* 36* CREAT -- -- -- -- -- 1.20* 1.34* GLUC -- -- -- -- -- 94 107* CA -- -- -- -- -- 8.9 9.0 ANION -- -- -- -- -- 12 10 < > = values in this interval not displayed. Recent Labs 10/29/18 1615 10/29/18 1401 10/29/18 1336 10/29/18 1312 PH 7.290* 7.348* 7.357 7.365 PCO2 45.5* -- -- -- PO2 80.7* 82.0 378.0* 285.0* BE -5.0* -- -- -- HCO3 -- 19.9* 24.3 23.7 Assessment/Plan 78yo male with PMH HTN, morbid obesity, and CKD, who presented to [place] with NSTEMI and Severe and is now s/p CABG and AVR. -EF normal 60% -Wean to extubate per CVICU protocol -Monitor chest tube output -Epi and Kasi -Ancef and Vanc for periop antibiotics x48hrs -Lovenox for DVT ppx Tests/Labs Ordered: 1. Chest X-ray 2. BMP 3. CBC 4. PTT 5. INR/PT 6. ABG 7. Mag SIGNATURE: Marietta Maier APRN.CNP PATIENT NAME: Harrison Milligan DATE: October 29, 2018 TIME: 4:59 PM PAGER/CONTACT #: [phone] [phone] [facility] PROGRESS HNO ID: [id number] Author: Marcella Bustos Service: Critical Care Author Type: Physician Type: Progress Notes Filed: 10/29/2018 5:36 PM Note Text: MICU - PROGRESS NOTE SERVICE DATE: 10/29/2018 Admission Date: 10/22/2018 AGE: [age] year old LOS: 7 days REASON FOR ICU ADMISSION: s/p CABG and AVR Subjective HISTORY OF PRESENT ILLNESS: 78 yo WM presented as inpatient transfer from [facility], where he presented w/ WOLF, found to have NSTEMI. Echo showing severe and cardiac cath confirmed sig LAD stenosis. Thus underwent the following on 10/29/18 ? PROCEDURES AND ANESTHESIA: Procedure(s) and Anesthesia Type: * AVR W/ CARDIOPULMONARY BYPASS W/ PROSTHETIC OTHER THAN HOMOGRAFT/ STENTLESS TISSUE VALVE - General * BYPASS GRAFT ARTERY CORONARY ON-PUMP THREE CORONARY ARTERIAL GRAFTS - General Great Saphenous Vein, Left , Percutaneous endoscopic Internal Thoracic Artery, Left , Open CABG x 3 (ramos-lad; svg-diag; svg-om; evh); AVR (23 Trifecta pericardial) Spirometry 10/24/18 suggestive of possible moderate restriction-personally reviewed. No lung volumes to confirm. Noted pt was difficult intubation w/ MP III Currently pt is intubated and sedated on precedex. On 100% Fio2, saturating 93%. Peep 8. TV 500 w/o any vent dysynchrony. On pressors. PAST MEDICAL HISTORY Diagnosis Date - Cerebrovascular disease 10/22/2018 - High blood pressure - HLD (hyperlipidemia) - Stroke (HCC) Objective VITAL SIGNS (last 24hrs min/max): Temp Av.7 ?C (98.1 ?F) Min: 36.6 ?C (97.9 ?F) Max: 36.8 ?C (98.2 ?F) Pulse Av Min: 62 Max: 86 No data recorded Cuff BP Min: 103/52 Max: 148/62 Pain Level: 0 Vital signs reviewed. BP 148/62 Pulse 86 Temp (Src) 97.9 (Temporal Artery) Resp 24 Ht 5' 10.984 (1.80m) Wt 304 lb 3.8 oz (138.0kg) SpO2 97% BMI 42.45 kg/(m2). Temp (24hrs), Av.7 ?C (98.1 ?F), Min:36.6 ?C (97.9 ?F), Max:36.8 ?C (98.2 ?F) NET FLUID BALANCE Intake/Output Summary (Last 24 hours) at 10/29/2018 1613 Last data filed at 10/28/2018 1900 Gross per 24 hour Intake 240 ml Output ? Net 240 ml MEDICATIONS Current Facility-Administered Medications Medication Dose Route Frequency - [MAR Hold due to Transfer] heparin 3,000 Units in NaCl 0.9% 500 mL irrigation 3,000 Units IRRIGATION ONE TIME - [MAR Hold due to Transfer] PHENYLephrine 20 mg in NaCl 0.9% 250 mL (NEOSYNEPHRINE) 25-300 mcg/min INTRAVENOUS ONE TIME - [MAR Hold due to Transfer] aminocaproic acid 10 g in NaCl 0.9% 250 mL (AMicAR) 1 g/hr INTRAVENOUS ONE TIME - [MAR Hold due to Transfer] dexmedetomidine 400 mcg in NaCl 0.9% 100 mL (PRECEDEX) 0.2-0.7 mcg/kg/hr INTRAVENOUS ONE TIME - [MAR Hold due to Transfer] EPINEPHrine 4 mg in NaCl 0.9% 250 mL 0.5-10 mcg/min INTRAVENOUS ONE TIME - [MAR Hold due to Transfer] insulin regular iv infusion 100 units in NaCl 0.9% 100 mL - AK CARD SURG NOMOGRAM 0-12 Units/hr INTRAVENOUS ONE TIME - [MAR Hold due to Transfer] nitroglycerin 100 mg in D5W 250 mL 5-20 mcg/min INTRAVENOUS ONE TIME - [MAR Hold due to Transfer] NORepinephrine 16 mg in NaCl 0.9% 250 mL (LEVOPHED) 0-20 mcg/min INTRAVENOUS ONE TIME - [MAR Hold due to Transfer] PHENYLephrine iv infusion 10 mg in NaCl 0.9% 250 mL (KASI-SYNEPHRINE) 0-100 mcg/min INTRAVENOUS ONE TIME - [MAR Hold due to Transfer] dextrose 50 g, insulin regular human 10 Units, potassium chloride 80 mEq, lidocaine 100 mg, magnesium sulfate 4 g in electrolyte-a (PLASMA-LYTE A) 1,000 mL solution MISCELLANEOUS ONE TIME - [MAR Hold due to Transfer] dextrose 25 g, insulin regular human 5 Units, potassium chloride 20 mEq, lidocaine 50 mg, magnesium sulfate 2 g in electrolyte-a (PLASMA-LYTE A) 500 mL solution MISCELLANEOUS ONE TIME - morphine 2-4 mg injection 2-4 mg INTRAVENOUS q 1 H PRN - [MAR Hold due to Transfer] lisinopril 2.5 mg tab(s) 2.5 mg ORAL DAILY - [MAR Hold due to Transfer] perflutren lipid microspheres 1.1 mg/mL 1.3 mL injection (DEFINITY) 1.3 mL INTRAVENOUS DIRECTED PRN - [MAR Hold due to Transfer] ipratropium-albuterol 3 mL nebulizer solution (DUONEB) 3 mL INHALATION TID - [MAR Hold due to Transfer] aspirin, enteric coated 81 mg tab(s) 81 mg ORAL DAILY - [MAR Hold due to Transfer] atorvastatin 20 mg tab(s) (LIPITOR) 20 mg ORAL AT BEDTIME - [MAR Hold due to Transfer] carvedilol 3.125 mg tab(s) (COREG) 3.125 mg ORAL BID w MEALS - [MAR Hold due to Transfer] NaCl 0.9% 3-5 mL 3-5 mL INTRAVENOUS q 12 H - [MAR Hold due to Transfer] NaCl 0.9% 2-10 mL 2-10 mL INTRAVENOUS q 12 H - [MAR Hold due to Transfer] magnesium hydroxide 400 mg/5 mL 30 mL (MOM) 30 mL ORAL DAILY PRN - [MAR Hold due to Transfer] docusate sodium 100 mg cap(s) (COLACE) 100 mg ORAL BID PRN - [MAR Hold due to Transfer] acetaminophen 650 mg tab(s) (TYLENOL) 650 mg ORAL q 6 H PRN - [MAR Hold due to Transfer] melatonin 6 mg tab(s) 6 mg ORAL DAILY (8 PM) - [MAR Hold due to Transfer] nitroglycerin sublingual 0.4 mg tab(s) (NITROQUICK) 0.4 mg SUBLINGUAL PRN - [MAR Hold due to Transfer] ondansetron (PF) 4 mg injection (ZOFRAN) 4 mg INTRAVENOUS q 6 H PRN - [MAR Hold due to Transfer] oxyCODONE-acetaminophen 5-325 mg 1 tablet (PERCOCET) 1 tablet ORAL q 6 H PRN - [MAR Hold due to Transfer] polyvinyl alcohol-povidone 1.4-0.6 % 1 Drop (REFRESH) 1 Drop BOTH EYES PRN - [MAR Hold due to Transfer] prochlorperazine 5 mg injection (COMPAZINE) 5 mg INTRAVENOUS q 4 H PRN - [MAR Hold due to Transfer] saliva substitute combo no.9 15 mL (BIOTENE mouthwash) 15 mL MUCOUS MEMBRANE (TOPICAL MOUTH AND THROAT) PRN - [MAR Hold due to Transfer] sodium chloride 0.65 % 2 Crooks (AYR, OCEAN) 2 Crooks EACH NOSTRIL PRN - [MAR Hold due to Transfer] Lip Protectant with Sunscreen SPF 15 1 application Stick (Blistex) 1 application TOPICAL PRN - [MAR Hold due to Transfer] albuterol 2.5 mg /3 mL (0.083 %) 2.5 mg (PROVENTIL) 2.5 mg INHALATION q 4 H PRN - [MAR Hold due to Transfer] aluminum-magnesium hydroxide-simethicone 200-200-20 mg/5 mL 30 mL (MAALOX,MYLANTA,MAG-AL PLUS) 30 mL ORAL q 6 H PRN - [MAR Hold due to Transfer] benzocaine-menthol 1 Lozenge (CEPACOL) 1 Lozenge MUCOUS MEMBRANE (TOPICAL MOUTH AND THROAT) q 2 H PRN - [MAR Hold due to Transfer] diphenhydrAMINE 25 mg (BENADRYL) 25 mg ORAL q 4 H PRN - [MAR Hold due to Transfer] guaiFENesin-dextromethor mcfarland 100-10 mg/5 mL 10 mL oral liquid (ROBITUSSIN DM) 10 mL ORAL q 4 H PRN - [MAR Hold due to Transfer] hydrALAZINE 25 mg tab(s) (APRESOLINE) 25 mg ORAL q 6 H PRN Respiratory/Nursing Documentation: O2 Therapy: Ventilator (10/29/181557) Invasive Ventilator Mode: Synchronized Intermittent Mandatory Ventilation;Pressure Support Ventilation (10/29/181557) Set Ventilator Respiratory Rate (BPM): 12 (10/29/181557) Total Respiratory Rate (BPM): 24 (10/29/181557) Tidal Volume Set (mL): 550 (10/29/181557) Minute Volume (L): 13.5 (10/29/181557) Peak Inspiratory Pressure (cm H2O): 23 (10/29/181557) PEEP/CPAP (cm H2O): 5 (10/29/181557) Lines, Drains, and Airways Line Peripheral 10/21/18 0700 Admission to Hospital Short Right Wrist 22 Gauge 8 days Arterial Line 10/29/18 Arterial Line Left Radial less than 1 day Central Line Quadruple Lumen 10/29/18 Non-tunneled Right Neck less than 1 day Peripheral 10/29/18 Right Forearm 20 Gauge less than 1 day Drain Chest Tube 10/29/18 Mediastinal 28 Fr less than 1 day Chest Tube 10/29/18 Mediastinal 32 Fr less than 1 day Indwelling Urinary Catheter 10/29/18 Temperature Monitoring 16 Fr less than 1 day PHYSICAL EXAMINATION: Vitals-reviewed and noted above. Lines/Drains in place as noted above. Intubated, sedated Morbidly obese Thick large neck RIJ/[place] noted RRR, Sternotomy incision CTAB Ab soft, BS+, NT/ND Chest tube w/ serosanguinous drainage No edema Peripheral pulses present DATA: All data reviewed, including, but not limited to, data noted below. All diagnostic tests, including labs/specimens and imaging, were personally reviewed by me with my marmolejo findings noted above and/or below. MICRO: CXR FINDINGS: 10/29- Low lung volumes w/ bibasilar atelectasis OTHER DIAGNOSTICS/ IMAGING: Impression/Recommendatio ns Critical Care Documentation: The patient has the following organ/system impairment(s): # CAD w/ recent NSTEMI; s/p CABG x 3v # Severe s/p AVR w/ prosthetic valve # Anticipated acute post-op resp insufficiency # Anticipated post-op hypotension # Suspect underlying PATRICIA; possible OHS # Likely restrictive ventilation in s/o morbid obesity # Morbid obesity # Difficult intubation noted PLAN: - Bronchodilators - Vasopressor support - IV fluids to wean vasopressors - Monitor UOP - Wean sedation - Ventilatory support with weaning; reassess for extubation - Wean FiO2 to goal sat >88-92% - Replace electrolytes - Daily BMP/CBC - Warming - Drain management per thoracic surgery - BG control per endocrine Code Status: Full This patient has a high probability of sudden, clinically significant deterioration, which requires the highest level of physician preparedness to intervene urgently. I managed/supervised life or organ supporting interventions that required frequent physician assessment. I devoted my full attention to the direct care of this patient for the amount of time indicated below. Time I spent with family or surrogate(s) is included only if the patient was incapable of providing the necessary information or participating in medical decision making. Time devoted to teaching and to any procedures I billed separately is not included. Discussed with staff. Time spent providing critical care services: 30 minutes, excluding procedures. SIGNATURE: Marcella Bustos MD [facility] DATE of SERVICE: October 29, 2018 TIME of SERVICE: 4:13 PM Normal [facility] Protimeon 03-12-2019 INR Coag (PPP) [Relative time] 1.14 {INR} Normal 0.90-1.30 [facility] Comment on above: Result Comment: Note : Reference Range Change Vitamin K Antagonist (VKA) Therapeutic Range: INR 2 to 3 (Target INR of 2.5) Note: For patients treated with VKA drugs, such as warfarin, the [place] [employer] 2012 Guideline recommends a therapeutic INR range of 2 to 3 (target INR of 2.5). This recommendation includes high-risk patients with antiphospholipid syndrome with previous arterial or venous thromboembolism, current-generation mechanical or bioprosthetic aortic heart valve replacement. VKA Therapeutic Range for some Mechanical Valve Replacement: INR 2.5 to 3.5 (Target INR of 3) Note: Patients with mechanical aortic valve replacement and additional risk factors for thromboembolic events (atrial fibrillation, previous thromboembolism, LV dysfunction, hypercoagulable conditions) or an older generation mechanical AVR (i.e., ball in-Cage) or any mechanical MVR should have a INR therapeutic range of 2.5 to 3.5 target INR of 3). Jaime GH, et al. Chest 2012; 141:7S-47S Sebas RA, et al. JACC 2017; 70: 252-289 Performed By: #### P 8 #### [place] [address] PT Coag (PPP) [Time] 11.7 s Normal 9.7-13.0 [facility] Comment on above: Performed By: #### P 8 #### [place] [address] Surgical Tissue Examon 10-29 Surgical Tissue Exam Test performed at [place] [address] NAME: HARRISON MILLIGAN REQUESTING: SCOTT HELMS MD FINAL DIAGNOSIS: AORTIC VALVE, EXCISION - SEVERE FIBROSIS WITH PROMINENT NODULAR CALCIFIC DEPOSITS. CLINICALLY, AORTIC STENOSIS. OPERATIVE PROCEDURE: MCABG, AVR CLINICAL INFORMATION: Aortic stenosis GROSS DESCRIPTION: Aortic valve Received in formalin labeled aortic valve are three semilunar valve cusps ranging from 1.5 to 2.2 cm along the free edge and 1.0 to 1.5 cm from free edge to base. There is severe calcification and severe fibrosis. Lambl's excrescences are not identified. Fenestrations are not identified. No vegetations are present. Patternator sections are submitted in formalin in one cassette following a period of decalcification. KVB:romero RAMOS M.D., PATHOLOGIST (Electronic signature on file) Signed out: 10/31/2018 16:37 PRINTED: 10/31/2018 Page 1 of 1 Normal [facility] Comment on above: Performed By: #### M AG #### [place] [address] Basic Panelon 10-28-2018 Creatinine [Mass/Vol] 1.20 mg/dL High 0.67-1.17 [facility] Comment on above: Performed By: #### P T #### [place] [address] Anion gap [Moles/Vol] 12 mmol/L Normal 8-16 [facility] Comment on above: Performed By: #### P T #### [place] [address] CO2 [Moles/Vol] 22 mmol/L Normal 21-32 [facility] Comment on above: Performed By: #### P T #### [address] [address] Glucose [Mass/Vol] 94 mg/dL Normal 70-99 [facility] Comment on above: Performed By: #### P T #### [address] [address] Urea nitrogen [Mass/Vol] 34 mg/dL High 7-18 [facility] Comment on above: Performed By: #### P T #### [address] [address] Calcium [Mass/Vol] 8.9 mg/dL Normal 8.5-10.1 [facility] Comment on above: Performed By: #### P T #### [place] [address] Chloride [Moles/Vol] 110 mmol/L High 98-107 [facility] Comment on above: Performed By: #### P T #### [facility] [address] [place], [place] [address] Potassium [Moles/Vol] 4.6 mmol/L Normal 3.5-5.1 [facility] Comment on above: Performed By: #### P T #### [facility] [address] [place], [place] [address] Sodium [Moles/Vol] 139 mmol/L Normal 136-145 [facility] Comment on above: Performed By: #### P T #### [facility] [address] [place], [place] [address] PROGRESSon 10-28-2018 PROGRESS HNO ID: [id number] Author: Harmony Miles Service: Hospital Medicine Author Type: Physician Type: Progress Notes Filed: 10/29/2018 12:01 AM Note Text: INTERNAL MEDICINE PROGRESS NOTE SERVICE DATE: 10/28/2018 SERVICE TIME: 7:39 PM ADMITTING PHYSICIAN: Yair Santiago Subjective CHIEF COMPLAINT: f/u medical issues listed below Current Facility-Administered Medications Medication Dose Route Frequency - perflutren lipid microspheres 1.1 mg/mL 1.3 mL injection (DEFINITY) 1.3 mL INTRAVENOUS DIRECTED PRN - ipratropium-albuterol 3 mL nebulizer solution (DUONEB) 3 mL INHALATION TID - aspirin, enteric coated 81 mg tab(s) 81 mg ORAL DAILY - atorvastatin 20 mg tab(s) (LIPITOR) 20 mg ORAL AT BEDTIME - carvedilol 3.125 mg tab(s) (COREG) 3.125 mg ORAL BID w MEALS - enoxaparin 40 mg injection (LOVENOX) 40 mg SUBCUTANEOUS DAILY - NaCl 0.9% 3-5 mL 3-5 mL INTRAVENOUS q 12 H - NaCl 0.9% 2-10 mL 2-10 mL INTRAVENOUS q 12 H - magnesium hydroxide 400 mg/5 mL 30 mL (MOM) 30 mL ORAL DAILY PRN - docusate sodium 100 mg cap(s) (COLACE) 100 mg ORAL BID PRN - acetaminophen 650 mg tab(s) (TYLENOL) 650 mg ORAL q 6 H PRN - melatonin 6 mg tab(s) 6 mg ORAL DAILY (8 PM) - morphine 4 mg injection 4 mg INTRAVENOUS q 3 H PRN - nitroglycerin sublingual 0.4 mg tab(s) (NITROQUICK) 0.4 mg SUBLINGUAL PRN - ondansetron (PF) 4 mg injection (ZOFRAN) 4 mg INTRAVENOUS q 6 H PRN - oxyCODONE-acetaminophen 5-325 mg 1 tablet (PERCOCET) 1 tablet ORAL q 6 H PRN - polyvinyl alcohol-povidone 1.4-0.6 % 1 Drop (REFRESH) 1 Drop BOTH EYES PRN - prochlorperazine 5 mg injection (COMPAZINE) 5 mg INTRAVENOUS q 4 H PRN - saliva substitute combo no.9 15 mL (BIOTENE mouthwash) 15 mL MUCOUS MEMBRANE (TOPICAL MOUTH AND THROAT) PRN - sodium chloride 0.65 % 2 Crooks (AYR, OCEAN) 2 Crooks EACH NOSTRIL PRN - Lip Protectant with Sunscreen SPF 15 1 application Stick (Blistex) 1 application TOPICAL PRN - albuterol 2.5 mg /3 mL (0.083 %) 2.5 mg (PROVENTIL) 2.5 mg INHALATION q 4 H PRN - aluminum-magnesium hydroxide-simethicone 200-200-20 mg/5 mL 30 mL (MAALOX,MYLANTA,MAG-AL PLUS) 30 mL ORAL q 6 H PRN - benzocaine-menthol 1 Lozenge (CEPACOL) 1 Lozenge MUCOUS MEMBRANE (TOPICAL MOUTH AND THROAT) q 2 H PRN - diphenhydrAMINE 25 mg (BENADRYL) 25 mg ORAL q 4 H PRN - guaiFENesin-dextromethor mcfarland 100-10 mg/5 mL 10 mL oral liquid (ROBITUSSIN DM) 10 mL ORAL q 4 H PRN - hydrALAZINE 25 mg tab(s) (APRESOLINE) 25 mg ORAL q 6 H PRN INTERVAL HISTORY OF PRESENT ILLNESS: BP noted Objective PHYSICAL EXAM: Patient Vitals for the past 24 hrs: BP Temp Temp src Pulse Resp SpO2 Weight 10/28/18 1544 (!) 104/45 37 ?C (98.6 ?F) Oral 65 18 96 % ? 10/28/18 1158 (!) 99/47 36.7 ?C (98.1 ?F) Oral 71 18 96 % ? 10/28/18 1053 ? ? ? 64 18 ? ? 10/28/18 1004 (!) 114/44 36.5 ?C (97.7 ?F) Temporal Art 66 18 96 % ? 10/28/18 0844 ? (!) 138 kg (304 lb 3.8 oz) 10/28/18 0255 (!) 91/35 36.2 ?C (97.2 ?F) Oral 62 18 96 % ? 10/27/18 2358 92/66 36 ?C (96.8 ?F) Temporal 68 18 98 % ? 10/27/181999 (!) 104/47 36.6 ?C (97.9 ?F) Oral 70 18 96 % ? 10/27/18 1947 ? ? ? 69 18 99 % ? Body mass index is 42.45 kg/m?. GENERAL: Alert, no distress, cooperative LUNGS: Lungs clear to auscultation. Good diaphragmatic excursion. CARDIAC: Normal S1 and S2; no rubs, murmurs, or gallops ABDOMEN: Abdomen soft EXTREMITIES: no swelling DATA: Diagnostic tests reviewed for today's visit: Significant findings were revd Assessment/Plan # moderate (2+ - 3+) aortic valve regurgitation. There is severe aortic valve stenosis. # CAD # hypotension-dc hctz. Decrease lisinopril # morbid obesity Plan:OR 10/29 SIGNATURE: Harmony Miles DO PATIENT NAME: Harrison Milligan DATE: October 28, 2018 TIME: 7:39 PM PAGER/CONTACT #: Normal [facility] PROGRESS HNO ID: [id number] Author: Iram LeachRn) LOKESH Sykes Service: Cardiovascular Testing Author Type: Registered Nurse Type: Progress Notes Filed: 10/28/2018 9:05 AM Note Text: Definity Given Per Protocol Via Right Wrist [place] For An Echo With A Poor Cardiac Window. Pt Tolerated Well. No Infiltrate. Normal [facility] Basic Panelon 10-27-2018 Creatinine [Mass/Vol] 1.34 mg/dL High 0.67-1.17 [facility] Comment on above: Performed By: #### P T #### [facility] [address] [place] [address] Anion gap [Moles/Vol] 10 mmol/L Normal 8-16 [facility] Comment on above: Performed By: #### P T #### [facility] [address] [place], [place] [address] CO2 [Moles/Vol] 23 mmol/L Normal 21-32 [facility] Comment on above: Performed By: #### P T #### [facility] [address] [place], [place] [address] Urea nitrogen [Mass/Vol] 36 mg/dL High 7-18 [facility] Comment on above: Performed By: #### P T #### [facility] [address] [place], [place] [address] Calcium [Mass/Vol] 9.0 mg/dL Normal 8.5-10.1 [facility] Comment on above: Performed By: #### P T #### [facility] [address] [place], [place] [address] Glucose [Mass/Vol] 107 mg/dL High 70-99 [facility] Comment on above: Performed By: #### P T #### [facility] [address] [place], [place] [address] Chloride [Moles/Vol] 111 mmol/L High 98-107 [facility] Comment on above: Performed By: #### P T #### [facility] [address] [place], [place] [address] Potassium [Moles/Vol] 4.4 mmol/L Normal 3.5-5.1 [facility] Comment on above: Performed By: #### P T #### [facility] [address] [place], [place] [address] Sodium [Moles/Vol] 140 mmol/L Normal 136-145 [facility] Comment on above: Performed By: #### P T #### [facility] [address] [place], [place] [address] Hemogramon 10-27-2018 Erythrocyte distribution width (RBC) [Ratio] 12.3 % Normal 11.6-14.4 [facility] Comment on above: Performed By: #### P T #### [facility] [address] [place], [place] [address] Hematocrit (Bld) [Volume fraction] 43.7 % Normal 40.1-51.0 [facility] Comment on above: Performed By: #### P T #### [facility] [address] [place] [address] Hemoglobin (Bld) [Mass/Vol] 14.5 g/dL Normal 13.7-17.5 [facility] Comment on above: Performed By: #### P T #### [facility] [address] [place] [address] MCH (RBC) [Entitic mass] 30.6 pg Normal 25.7-32.2 [facility] Comment on above: Performed By: #### P T #### [facility] [address] [place] [address] MCHC (RBC) [Mass/Vol] 33.2 % Normal 32.3-36.5 [facility] Comment on above: Performed By: #### P T #### [facility] [address] [place] [address] MCV (RBC) [Entitic vol] 92.2 fL Normal 83.2-95.6 [facility] Comment on above: Performed By: #### P T #### [facility] [address] [place] [address] Platelet mean volume (Bld) [Entitic vol] 11.4 fL Normal 8.7-12.0 [facility] Comment on above: Performed By: #### P T #### [facility] [address] [place] [address] Platelets (Bld) [#/Vol] 154 thou/cmm Normal 141-365 [facility] Comment on above: Performed By: #### P T #### [facility] [address] [place] [address] RBC (Bld) [#/Vol] 4.74 mil/cmm Normal 4.63-6.08 [facility] Comment on above: Performed By: #### P T #### [facility] [address] [place] [address] RDW SD 41.9 fl Normal 36.1-45.8 [facility] Comment on above: Performed By: #### P T #### [facility] [address] [place], [place] [address] WBC (Bld) [#/Vol] 6.42 thou/cmm Normal 4.23-9.07 [facility] Comment on above: Performed By: #### P T #### [facility] [address] [place], [place] [address] PROGRESSon 10-27-2018 PROGRESS HNO ID: [id number] Author: Rochelle Cummins Service: Hospital Medicine Author Type: Physician Type: Progress Notes Filed: 10/27/2018 10:00 AM Note Text: DEPARTMENT OF HOSPITAL MEDICINE PROGRESS NOTE SERVICE DATE: 10/27/2018 SERVICE TIME: 9:57 AM Hospital Medicine/Primary Attending: Rochelle Cummins, DO NIGHT AND WEEKEND COVERAGE: After 7pm please page [phone] CHIEF COMPLAINT: Follow up on CAD SUBJECTIVE: Pt seen and examined. Feels good. Rolled over on tele last night and caused pain. Pt denies chest pain, shortness of breath, nausea, vomiting, or diarrhea. OBJECTIVE: PHYSICAL EXAM: BP 111/52 Pulse 63 Temp (Src) 97.9 (Oral) Resp 16 Ht 5' 10.984 (1.80m) Wt 306 lb (138.8kg) SpO2 97% BMI 42.70 kg/(m2). General - AANDOx3, NAD, Calm CV - RRR S1 S2, No M/R/G RESP - CTA B/L No wheezes, ronchi, rales ABD - soft, NT, ND +BS EXT - no gross joint deformity, no clubbing, cyanosis, edema NEURO - CN II-XII grossly intact, no focal deficits MEDICATIONS: Current Facility-Administered Medications Medication Dose Route Frequency - enoxaparin 40 mg injection (LOVENOX) 40 mg SUBCUTANEOUS DAILY - NaCl 0.9% 3-5 mL 3-5 mL INTRAVENOUS q 12 H - NaCl 0.9% 2-10 mL 2-10 mL INTRAVENOUS q 12 H - magnesium hydroxide 400 mg/5 mL 30 mL (MOM) 30 mL ORAL DAILY PRN - docusate sodium 100 mg cap(s) (COLACE) 100 mg ORAL BID PRN - acetaminophen 650 mg tab(s) (TYLENOL) 650 mg ORAL q 6 H PRN - melatonin 6 mg tab(s) 6 mg ORAL DAILY (8 PM) - morphine 4 mg injection 4 mg INTRAVENOUS q 3 H PRN - nitroglycerin sublingual 0.4 mg tab(s) (NITROQUICK) 0.4 mg SUBLINGUAL PRN - ondansetron (PF) 4 mg injection (ZOFRAN) 4 mg INTRAVENOUS q 6 H PRN - oxyCODONE-acetaminophen 5-325 mg 1 tablet (PERCOCET) 1 tablet ORAL q 6 H PRN - polyvinyl alcohol-povidone 1.4-0.6 % 1 Drop (REFRESH) 1 Drop BOTH EYES PRN - prochlorperazine 5 mg injection (COMPAZINE) 5 mg INTRAVENOUS q 4 H PRN - saliva substitute combo no.9 15 mL (BIOTENE mouthwash) 15 mL MUCOUS MEMBRANE (TOPICAL MOUTH AND THROAT) PRN - sodium chloride 0.65 % 2 Crooks (AYR, OCEAN) 2 Crooks EACH NOSTRIL PRN - Lip Protectant with Sunscreen SPF 15 1 application Stick (Blistex) 1 application TOPICAL PRN - albuterol 2.5 mg /3 mL (0.083 %) 2.5 mg (PROVENTIL) 2.5 mg INHALATION q 4 H PRN - aluminum-magnesium hydroxide-simethicone 200-200-20 mg/5 mL 30 mL (MAALOX,MYLANTA,MAG-AL PLUS) 30 mL ORAL q 6 H PRN - benzocaine-menthol 1 Lozenge (CEPACOL) 1 Lozenge MUCOUS MEMBRANE (TOPICAL MOUTH AND THROAT) q 2 H PRN - diphenhydrAMINE 25 mg (BENADRYL) 25 mg ORAL q 4 H PRN - guaiFENesin-dextromethor mcfarland 100-10 mg/5 mL 10 mL oral liquid (ROBITUSSIN DM) 10 mL ORAL q 4 H PRN - hydrALAZINE 25 mg tab(s) (APRESOLINE) 25 mg ORAL q 6 H PRN - Hydrochlorothiazide 12.5 mg 12.5 mg ORAL DAILY - lisinopril 40 mg tab(s) (ZESTRIL, PRINIVIL) 40 mg ORAL DAILY - aspirin, enteric coated 81 mg tab(s) 81 mg ORAL DAILY - atorvastatin 20 mg tab(s) (LIPITOR) 20 mg ORAL AT BEDTIME - mupirocin 2 % ointment (BACTROBAN) TOPICAL BID - carvedilol 3.125 mg tab(s) (COREG) 3.125 mg ORAL BID w MEALS - ipratropium-albuterol 3 mL nebulizer solution (DUONEB) 3 mL INHALATION TID - perflutren lipid microspheres 1.1 mg/mL 1.3 mL injection (DEFINITY) 1.3 mL INTRAVENOUS DIRECTED PRN DATA: Diagnostic tests reviewed for today's visit: CBC: Recent Labs 10/27/18 0505 WBC 6.42 RBC 4.74 HB 14.5 HCT 43.7 PLT 154 MCV 92.2 MCH 30.6 MPV 11.4 RDW 12.3 Coags: No results for input(s): INR, APTT in the last 24 hours. Invalid input(s): PT BMP: Recent Labs 10/27/18 0505 NA 140 K 4.4 CHLOR 111* CO2 23 BUN 36* CREAT 1.34* GLUC 107* CMP: Recent Labs 10/27/18 0505 NA 140 K 4.4 CHLOR 111* CO2 23 BUN 36* CREAT 1.34* GLUC 107* CA 9.0 ANION 10 Cardiac Enzymes: No results for input(s): CK, MB, CKMB, TROPT in the last 24 hours. Liver Function, Amylase, Lipase: No results for input(s): TPROT, ALB, ALT, AST, ALKPHOS, TBILI, AMYLASE, LIPASE, LACTATE in the last 24 hours. MG/PHOS: No results for input(s): MG, P in the last 24 hours. Renal Panel: Recent Labs 10/27/18 0505 CREAT 1.34* BUN 36* GLUC 107* CA 9.0 CHLOR 111* K 4.4 CO2 23 NA 140 Heme: No results for input(s): RETICP, ABSRETIC, LD, JESSICA, FE, TIBC, TRANSFERSAT in the last 24 hours. No results found for: UALBCR Assessment/Plan 1. CAD - plans for CABG on Sunday. 2. Abnormal renal function - will give small fluid bolus and re check in AM 3. Severe - ?AVR 4. Morbid obesity - weight loss 5. Lower extremity edema - ?venous insuff? Echo ordered Medication and Non-Pharmacologic VTE Prophylaxis/Anticoagulan ts Anticoagulant AND Antiplatelet Medications (From admission, onward) Start Dose Route Frequency Ordered Stop 10/23/18 0900 aspirin, enteric coated 81 mg tab(s) 81 mg ORAL DAILY 10/23/18 0037 -- 10/22/181929 enoxaparin 40 mg injection (LOVENOX) (Medical At Risk ) 40 mg SUBCUTANEOUS DAILY 10/22/18191310/28/18235810/22/181914 vte non-pharmacologic prophylaxis - none indicated (ct,oh) 10/22/181914 activity - mobilize patient (ct,co) Lines, Drains, and Airways Line Peripheral 10/21/18 07 Admission to Hospital Short Right Wrist 22 Gauge 6 days VTE Prophylaxis: Lovenox 40mg Sub Q Daily Disposition: Home with [facility] Functional Status Prior to Admit: Medical Necessity for Continued Hospitalization CABG Plan of care discussed with: Patient SIGNATURE: Rochelle Cummins DO PATIENT NAME: Harrison Milligan DATE: October 27, 2018 TIME: 9:57 AM PAGER/CONTACT #: [phone] [facility] CONSULTon 10-26-2018 CONSULT HNO ID: [id number] Author: Niki Zamorano Service: Pulmonary Disease Author Type: Nurse Practitioner Type: Consults Filed: 10/26/2018 5:09 PM Note Text: -------- Attestation signed by China Lerma at 10/26/2018 7:27 PM (Updated) S: Pt without any complaints of shortness of breath or cough. O: 10/26/18 0928 10/26/18 1302 10/26/18 1344 10/26/18 1500 BP: (!) 98/49 (!) 111/45 Pulse: 62 70 67 Resp: 16 18 18 Temp: 36.4 ?C (97.5 ?F) 36.5 ?C (97.7 ?F) TempSrc: Oral Oral SpO2: 96% 98% Weight: (!) 138.8 kg (306 lb) Height: 180.3 cm (5' 10.98) well-built 78-year-old gentleman sitting on the edge of bed. Pleasant spirits. NAD RRR Lungs: CTA Obese EXT: + pedal edema A/P Agree with nut tapper plan: See ARISCAT score. Pulmonary status currently optimized for surgery. Will follow post op in CVICU. [facility] STAFF PHYSICIAN NOTE OF PERSONAL INVOLVEMENT IN CARE I have reviewed the progress note obtained and documented by the nurse practitioner and I personally participated in the marmolejo components. I have discussed the case and management of the patient's care. The following comments revise or confirm relevant marmolejo components of the note. -------- Pulmonary Consult Note SERVICE DATE: 10/26/2018 SERVICE TIME: 3:38 PM ? REASON FOR ADMISSION: NSTEMI REASON FOR CONSULT: Pre-op pending CABG+AVR, pre-op FEV1 63% HISTORY OF PRESENT ILLNESS: This is a 78 year old male patient with a PMHX of CVA, Ataxia, CAD, HTN. We have been consulted for pending CABG+AVR, pre-op FEV1 63%. Patient was transferred from [facility] where he presented with worsening shortness of breath , chest pain/discomfort, confusion, and expressive aphasia. During his ED stay at [facility] he was found to have elevated troponin - His EKG was unremarkable. He was ruled in for non-ST elevation myocardial infarction as his troponin continued to uptrend and peaked at 1.41 the following day. Cardiac workup including heart cath, Echo and KOKI suggested coronary artery disease with 50% left main ?and 70% LAD lesion; severe aortic valve stenosis. Patient denies F/C/NS, N/V/D, Hemoptysis, cough, recent sick contacts, recent travel. He states he has had progressive shortness of breath over the last year, especially with activity. He is a life-long non-smoker. He is currently on room air Sitting up on edge of edge NAD. Family at bedside and son. REVIEW OF SYSTEMS: GENERAL: Negative for fevers, malaise, chills, sweats, lethargy, change in appetite or weight HEENT: Negative for headaches, hearing/vision changes, nasal bleeding, congestion or rhinorrhea NECK: Negative for lumps, goiter, pain and significant neck swelling NEURO: No history of headaches, syncope, paralysis, seizures or tremors RESPIRATORY: Negative for cough, hemoptysis, wheezing, + shortness of breath over last year CARDIOVASCULAR: Negative for chest pain, leg swelling, or palpitations GI: No nausea, vomiting, diarrhea, heartburn or reflux symptoms : No history of dysuria, frequency or incontinence SKIN: Negative for lesions, rash, and itching MUSCULOSKELETAL: Negative for joint pain or swelling, back pain or muscle pain. ? ? PAST MEDICAL HISTORY PAST MEDICAL HISTORY Diagnosis Date - Cerebrovascular disease 10/22/2018 - High blood pressure - HLD (hyperlipidemia) - Stroke (HCC) PAST SURGICAL HISORY PAST SURGICAL HISTORY Procedure Laterality Date - CARDIAC CATH 10/21/2018 [facility] - TONSILLECTOMY AND ADENOIDECTOMY PAST FAMILY HISTORY FAMILY HISTORY Problem Relation Age of Onset - Diabetes Father - Thyroid Sister - Cancer Mother thyroid - Diabetes Mother - Hypertension Mother SOCIAL HISTORY Social History Tobacco Use - Smoking status: Never Smoker - Smokeless tobacco: Never Used Substance Use Topics - Alcohol use: No - Drug use: No 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 Lifelong non-smoker, Denies ETOH use, Denies Illicit drug use. ALLERGIES ALLERGIES No Known Allergies HOME MEDICATIONS: Medications Prior to Admission: Hydrochlorothiazide 12.5 mg capsule Take 1 capsule by mouth once daily. Disp: 90 capsule Rfl: 3 Taking simvastatin (ZOCOR) 40 mg tablet Take 1 tablet by mouth daily at bedtime. Disp: 90 tablet Rfl: 3 Taking lisinopril (ZESTRIL, PRINIVIL) 40 mg tablet Take 1 tablet by mouth once daily. Disp: 90 tablet Rfl: 3 Taking MULTIVITAMIN ORAL Take by mouth. Disp: Rfl: Taking Aspirin 81 mg ORAL Tab Take 81 mg by mouth. Disp: Rfl: Taking HOSPITAL MEDICATIONS: Current Facility-Administered Medications: perflutren lipid microspheres 1.1 mg/mL 1.3 mL injection (DEFINITY) 1.3 mL INTRAVENOUS DIRECTED PRN Matt Moran ipratropium-albuterol 3 mL nebulizer solution (DUONEB) 3 mL INHALATION TID Flakita (Sheri) Karly, GED PREPARATION TEACHER.EXECUTIVE CREATIVE DIRECTOR 3 mL at 10/26/18 1302 Hydrochlorothiazide 12.5 mg 12.5 mg ORAL DAILY Yair Mottaon 12.5 mg at 10/26/18 0841 lisinopril 40 mg tab(s) (ZESTRIL, PRINIVIL) 40 mg ORAL DAILY Yair Santiago 40 mg at 10/26/18 0841 aspirin, enteric coated 81 mg tab(s) 81 mg ORAL DAILY Yair Santiago 81 mg at 10/26/18 0841 atorvastatin 20 mg tab(s) (LIPITOR) 20 mg ORAL AT BEDTIME Yair Santiago 20 mg at 10/25/182154 mupirocin 2 % ointment (BACTROBAN) TOPICAL BID Flakita (Contact Lens Edge Buffer) YUDI BakerNGAMA carvedilol 3.125 mg tab(s) (COREG) 3.125 mg ORAL BID w MEALS Flakita (Contact Lens Edge Buffer) Karly, GED PREPARATION TEACHERNavneetEXECUTIVE CREATIVE DIRECTOR 3.125 mg at 10/26/18 0841 enoxaparin 40 mg injection (LOVENOX) 40 mg SUBCUTANEOUS DAILY Flakita (Sheri) Karly GED PREPARATION TEACHERNavneetEXECUTIVE CREATIVE DIRECTOR 40 mg at 10/26/18 0841 NaCl 0.9% 3-5 mL 3-5 mL INTRAVENOUS q 12 H Yair Santiago 3 mL at 10/26/18 0841 NaCl 0.9% 2-10 mL 2-10 mL INTRAVENOUS q 12 H Yair Santiago 10 mL at 10/26/18 0842 magnesium hydroxide 400 mg/5 mL 30 mL (MOM) 30 mL ORAL DAILY PRN Yair Santiago docusate sodium 100 mg cap(s) (COLACE) 100 mg ORAL BID PRN Yair Santiago acetaminophen 650 mg tab(s) (TYLENOL) 650 mg ORAL q 6 H PRN Yair Santiago melatonin 6 mg tab(s) 6 mg ORAL DAILY (8 PM) Yair Santiago 6 mg at 10/25/182154 morphine 4 mg injection 4 mg INTRAVENOUS q 3 H PRN Yair Santiago nitroglycerin sublingual 0.4 mg tab(s) (NITROQUICK) 0.4 mg SUBLINGUAL PRN Yair Santiago ondansetron (PF) 4 mg injection (ZOFRAN) 4 mg INTRAVENOUS q 6 H PRN Yair Santiago oxyCODONE-acetaminophen 5-325 mg 1 tablet (PERCOCET) 1 tablet ORAL q 6 H PRN Yair Santiago polyvinyl alcohol-povidone 1.4-0.6 % 1 Drop (REFRESH) 1 Drop BOTH EYES PRN Yair Santiago prochlorperazine 5 mg injection (COMPAZINE) 5 mg INTRAVENOUS q 4 H PRN Yair Santiago saliva substitute combo no.9 15 mL (BIOTENE mouthwash) 15 mL MUCOUS MEMBRANE (TOPICAL MOUTH AND THROAT) PRN Yair Santiago sodium chloride 0.65 % 2 Crooks (AYR, OCEAN) 2 Crooks EACH NOSTRIL PRN Yair Santiago Lip Protectant with Sunscreen SPF 15 1 application Stick (Blistex) 1 application TOPICAL PRN Yair Santiago albuterol 2.5 mg /3 mL (0.083 %) 2.5 mg (PROVENTIL) 2.5 mg INHALATION q 4 H PRN Yair Santiago aluminum-magnesium hydroxide-simethicone 200-200-20 mg/5 mL 30 mL (MAALOX,MYLANTA,MAG-AL PLUS) 30 mL ORAL q 6 H PRN Yair Santiago benzocaine-menthol 1 Lozenge (CEPACOL) 1 Lozenge MUCOUS MEMBRANE (TOPICAL MOUTH AND THROAT) q 2 H PRN Yair Santiago diphenhydrAMINE 25 mg (BENADRYL) 25 mg ORAL q 4 H PRN Yair Santiago guaiFENesin-dextromethor mcfarland 100-10 mg/5 mL 10 mL oral liquid (ROBITUSSIN DM) 10 mL ORAL q 4 H PRN Yair Santiago hydrALAZINE 25 mg tab(s) (APRESOLINE) 25 mg ORAL q 6 H PRN Yair Santiago 25 mg at 10/23/18 0905 ? LABS ABG: Invalid input(s): [id number] BMP: Glucose (mg/dL) Date Value 10/22/2018 105 Potassium (mEq/L) Date Value 10/22/2018 3.9 Sodium (mEq/L) Date Value 10/22/2018 138 Chloride (mEq/L) Date Value 10/22/2018 108 CO2 (mEq/L) Date Value 10/22/2018 25 Creatinine (mg/dL) Date Value 10/22/2018 1.13 BUN (mg/dL) Date Value 10/22/2018 21 Anion Gap (no units) Date Value 10/22/2018 9 Calcium (mg/dL) Date Value 10/22/2018 8.7 CBC: HGB (g/dL) Date Value 10/22/2018 15.6 Hematocrit (%) Date Value 10/22/2018 44.8 WBC (thou/cmm) Date Value 10/22/2018 9.03 MICRO: RADIOLOGY FILMS: ECHO 10/19/2018: Normal LV size with severe concentric LVH. Normal LV systolic function with EF 60%. Stage I DD. No regional WMA noted. Peak aortic valve gradient 102 mmHg, mean aortic valve gradient 64 mmHg. severe aortic stenosis. Calculated aortic valve area is 0.88 cm?. KOKI 10/22/18: No study report hand, per Dr. Kebede's note: Severe aortic stenosis as calcification and mild mitral regurgitation. Ejection fraction is noted to be borderline. Chest X-RAY 1 view 10/18/18: No acute cardiopulmonary process. Normal size heart. Normal mediastinum and hilar. Normal visualized pulmonary arteries. There is arthrosclerotic calcification of aortic arch with Tortuosity. Brain/head without contrast 10/19/18: No evidence of an acute intracranial abnormality Mild bilateral periventricular and subcortical white matter chronic small vessel disease with age appropriate cerebral atrophy CTA chest 10/19/2018: 1. No demonstrated pulmonary embolism or arterial dissection. 2. The lungs are underexpanded, and there is crowding. Irregular subsegmental atelectasis or scarring also seen in the posterolateral basilar left lower lobe. 3. The heart is enlarged. There is calcification of mitral valve annulus and aortic valve leaflets. Arthrosclerotic vascular calcification are also present. 4. Mildly lobulated and heterogenic thyroid gland with occasional coarse calcifications. 5.diffuse degenerative changes of the spine. Minor anterior wedging T7-T9 with exaggerated dorsal kyphosis. A mild thoracic scoliosis also present. MRI brain without contrast 10/20/18: 1. No MRI evidence of acute or subacute ischemic infarct. 2. Chronic white matter ischemic changes in both cerebral hemispheres 3. 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 There is mild concentric left ventricular hypertrophy. Left ventricular systolic function is normal. Baseline left ventricular diastolic function is consistent with abnormal relaxation (stage 1). LVOT gradient at rest of 10mmHg. 19mmHg with valsalva. No significant LVOT obstruction. LEFT ATRIUM The left atrial cavity is normal. The left atrial cavity area is 19cm2. RIGHT ATRIUM The right atrial cavity is normal. The right atrial cavity area is 20cm2. MITRAL VALVE There is mild mitral annular calcification observed posterior. There is no mitral stenosis. There is trivial mitral valve regurgitation. TRICUSPID VALVE There is no tricuspid stenosis. There is trivial tricuspid valve regurgitation. AORTIC VALVE There is mild aortic valve stenosis. Vmax 2.0 m/s. There is no aortic valve regurgitation. Tricuspid aortic valve. There is mild diffuse thickening. The peak gradient is 16 mmHg. The mean gradient is 8 mmHg. The aortic VTI is 33.5 cm. The mean velocity in the aortic valve is 124.5 cm/s. PULMONIC VALVE The pulmonic valve is normal. AORTA Measurements - Sinus 3.4 cm. Mid ascending aorta 3.8 cm. INTERATRIAL SEPTUM The interatrial septum is normal. PERICARDIUM The pericardium is normal. CONCLUSIONS: - Technically difficult exam due to body habitus with poor image quality. - Exam indication: Syncope / CVA - The left ventricle is normal in size. There is mild concentric left ventricular hypertrophy. Left ventricular systolic function is normal. EF = 55 ? 5% (visual est.) - Stage 1 diastolic dysfunction. - Mild mitral annular calcification with trivial MR. - Trivial TR. Pulmonary artery pressure is inferred to be low. - Mild aortic stenosis with no AI. No significant stenosis. - Unable to use saline contrast to assess IAS, due to poor image quality. - There is no previous echo for comparison. Carotid US 03/10/2011: IMPRESSION: RIGHT: 1. Moderate, calcific plaque in the bulb and proximal internal carotid artery was consistent with <50% stenosis by flow velocity criteria. 2. Normal flow characteristics in the external carotid artery. 3. Normal vertebral artery flow characteristics. LEFT: 1. Moderate, heterogeneous, shadowing plaque in the bulb and proximal internal carotid artery was consistent with <50% stenosis by flow velocity criteria. The Internal carotid artery peak flow velocity may be underestimated due to shadowing. 2. Normal flow characteristics in the external carotid artery. 3. Normal vertebral artery flow characteristics. Most recent PFTs: 10/24/18 FEV1: 63% Most recent PS04/27/11 ?IMPRESSION: 1. Severe obstructive sleep apnea syndrome. Respiratory events were associated with oxygen desaturations (kyler of 88% on room air). 2. Split night study was not initated due to very poor sleep efficiency and the absence of REM sleep was noted. 3. Abnormal sleep architecture likely due to respiratory events and first night effect. VITALS: BP (!) 111/45 Pulse 67 Temp 36.5 ?C (97.7 ?F) (Oral) Resp 18 Ht 180.3 cm (5' 10.98) Wt (!) 138.8 kg (306 lb) SpO2 98% BMI 42.70 kg/m? PHYSICAL EXAM: GENERAL: AAOx3, pleasant, resting in bed, NAD- and Son at bedside NEURO: CN II-XII intact, speech clear HEENT: NCAT, EOMI, no lymphadenopathy appreciated RESPIRATORY: Diminished bilateral bases otherwise CTAB. Respirations are even and unlabored at rest. No wheezing, accessory muscle use, pursed lip breathing or conversational dysnea. Patient is on Room air CARDIOVASCULAR: Normal S1S2, RRR. No murmur, rub, or gallop. No edema. GI: Obese, Soft, nondistended, nontender, bowel sounds present x4 EXTREMITIES: no clubbing or cyanosis. MAEx4 SKIN: warm, dry, intact, no rash ? ASSESSMENT AND PLAN: 1) Dyspnea: stable on room air, continue to monitor SpO2 with VS Keep SpO2 >90%. Add Acapella and IS with instruction for pre-op and post-op. Continue DuoNeb TID. 2) According to ARISCAT risk index scale, the patient has a 42.1% risk of pulmonary complication that may require post-op mechanical ventilation greater than 48 hours (which is not prohibitory): Encourage pre/post op IS and early ambulation. Discussed this with patient. 3) CAD w/ 50% left main: Tentatively scheduled for OR 10/[address] Helms for CABG and +AVR- Medication management per [facility]. 4) NSTEMI: Per cardiovascular 5) Morbid Obesity: BMI 42.70- patient could benefit from weight loss. 6) MMP Per Primary 7) Code Status: Full Code 8) Will follow peripheral until Post OP SIGNATURE: Niki Zamorano APRN.EXECUTIVE CREATIVE DIRECTOR PATIENT NAME: Harrison Milligan DATE: October 26, 2018 TIME: 3:38 PM PAGER/CONTACT #: [phone] ? Normal [facility] PROGRESSon 10-26-2018 PROGRESS HNO ID: [id number] Author: Matt Moran Service: Hospital Medicine Author Type: Physician Type: Progress Notes Filed: 10/26/2018 4:38 PM Note Text: INPATIENT PROGRESS NOTE SERVICE DATE: 10/26/2018 SERVICE TIME: 4:34 PM PRIMARY SERVICE: Sound Subjective CHIEF COMPLAINT: SOB INTERVAL HPI: No JOHNSON/CP/SOB/Abd pain Current Facility-Administered Medications Medication Dose Route Frequency - enoxaparin 40 mg injection (LOVENOX) 40 mg SUBCUTANEOUS DAILY - NaCl 0.9% 3-5 mL 3-5 mL INTRAVENOUS q 12 H - NaCl 0.9% 2-10 mL 2-10 mL INTRAVENOUS q 12 H - magnesium hydroxide 400 mg/5 mL 30 mL (MOM) 30 mL ORAL DAILY PRN - docusate sodium 100 mg cap(s) (COLACE) 100 mg ORAL BID PRN - acetaminophen 650 mg tab(s) (TYLENOL) 650 mg ORAL q 6 H PRN - melatonin 6 mg tab(s) 6 mg ORAL DAILY (8 PM) - morphine 4 mg injection 4 mg INTRAVENOUS q 3 H PRN - nitroglycerin sublingual 0.4 mg tab(s) (NITROQUICK) 0.4 mg SUBLINGUAL PRN - ondansetron (PF) 4 mg injection (ZOFRAN) 4 mg INTRAVENOUS q 6 H PRN - oxyCODONE-acetaminophen 5-325 mg 1 tablet (PERCOCET) 1 tablet ORAL q 6 H PRN - polyvinyl alcohol-povidone 1.4-0.6 % 1 Drop (REFRESH) 1 Drop BOTH EYES PRN - prochlorperazine 5 mg injection (COMPAZINE) 5 mg INTRAVENOUS q 4 H PRN - saliva substitute combo no.9 15 mL (BIOTENE mouthwash) 15 mL MUCOUS MEMBRANE (TOPICAL MOUTH AND THROAT) PRN - sodium chloride 0.65 % 2 Crooks (AYR, OCEAN) 2 Crooks EACH NOSTRIL PRN - Lip Protectant with Sunscreen SPF 15 1 application Stick (Blistex) 1 application TOPICAL PRN - albuterol 2.5 mg /3 mL (0.083 %) 2.5 mg (PROVENTIL) 2.5 mg INHALATION q 4 H PRN - aluminum-magnesium hydroxide-simethicone 200-200-20 mg/5 mL 30 mL (MAALOX,MYLANTA,MAG-AL PLUS) 30 mL ORAL q 6 H PRN - benzocaine-menthol 1 Lozenge (CEPACOL) 1 Lozenge MUCOUS MEMBRANE (TOPICAL MOUTH AND THROAT) q 2 H PRN - diphenhydrAMINE 25 mg (BENADRYL) 25 mg ORAL q 4 H PRN - guaiFENesin-dextromethor mcfarland 100-10 mg/5 mL 10 mL oral liquid (ROBITUSSIN DM) 10 mL ORAL q 4 H PRN - hydrALAZINE 25 mg tab(s) (APRESOLINE) 25 mg ORAL q 6 H PRN - Hydrochlorothiazide 12.5 mg 12.5 mg ORAL DAILY - lisinopril 40 mg tab(s) (ZESTRIL, PRINIVIL) 40 mg ORAL DAILY - aspirin, enteric coated 81 mg tab(s) 81 mg ORAL DAILY - atorvastatin 20 mg tab(s) (LIPITOR) 20 mg ORAL AT BEDTIME - mupirocin 2 % ointment (BACTROBAN) TOPICAL BID - carvedilol 3.125 mg tab(s) (COREG) 3.125 mg ORAL BID w MEALS - ipratropium-albuterol 3 mL nebulizer solution (DUONEB) 3 mL INHALATION TID Objective PHYSICAL EXAM: BP 111/45 Pulse 67 Temp (Src) 97.7 (Oral) Resp 18 Ht 5' 10.984 (1.80m) Wt 306 lb (138.8kg) SpO2 98% BMI 42.70 kg/(m2). Physical Exam Performed GENERAL: Alert, no distress, cooperative SKIN: Skin color, texture, turgor normal. No rashes or lesions. EYES: EOMI NECK: No jugulovenous distention, Supple LUNGS: Lungs clear to auscultation, Good diaphragmatic excursion CARDIAC: III/IV RAMONITA ABDOMEN: Abdomen soft, non-tender, BS normal, No masses or organomegaly EXTREMITIES: 1+ pitting b/l NEURO: Grossly normal cognition, motor function, and cranial nerves III-XII DATA: Diagnostic tests reviewed for today's visit: Most recent labs and imaging results. Assessment/Plan 1. CAD - for CABG 10/29 after Plavix washout. ASA/carvedilol/lisinopri l/statin. 2. Severe - ?AVR 10/29 3. Morbid Obesity 4. LE edema - may have some contribution of venous insufficiency, but will get ECHO 5. Chronic CVA Medication and Non-Pharmacologic VTE Prophylaxis/Anticoagulan ts Anticoagulant AND Antiplatelet Medications (From admission, onward) Start Dose Route Frequency Ordered Stop 10/23/18 0900 aspirin, enteric coated 81 mg tab(s) 81 mg ORAL DAILY 10/23/18 0037 -- 10/22/181929 enoxaparin 40 mg injection (LOVENOX) (Medical At Risk ) 40 mg SUBCUTANEOUS DAILY 10/22/18191310/28/18235810/22/181914 vte non-pharmacologic prophylaxis - none indicated ([place]) 10/22/181914 activity - mobilize patient ([place]) VTE Prophylaxis: VTE prophylaxis appropriate SIGNATURE: Matt Moran MD PATIENT NAME: Harrison Milligan DATE: October 26, 2018 TIME: 4:34 PM PAGER: Loyd Normal [facility] RBC Productson 10-26-2018 Xmatch Unit 1 see below [facility] Comment on above: Result Comment: Comp atible Performed By: #### P T #### [place] [address] Xmatch Unit 2 see below [facility] Comment on above: Result Comment: Comp atible Performed By: #### P T #### [place] [address] Type and Screenon 10-26-2018 ABO group Nom (Bld) O [facility] Comment on above: Performed By: #### P T #### [place] [address] Comment See Below [facility] Comment on above: Result Comment: Scre en &/or Xmatch expires in 3 days at 12 midnight. Redraw patient at that time. Performed By: #### P T #### [place] [address] RH Type Positive [facility] Comment on above: Performed By: #### P T #### [address] [place], [place] [address] CASE MANAGEMon 10-25-2018 CASE MANAGEM HNO ID: [id number] Author: Jessa Mcdonald Service: Care Management Author Type: ? Type: Care Mgt Progress Note Filed: 10/25/2018 2:51 PM Note Text: CARE MANAGEMENT PROGRESS NOTE SERVICE DATE: 10/25/2018 SERVICE TIME: 1245 LOS: 3 days IM letter given to patient on [id number]. SIGNATURE: Jessa Mcdonald PATIENT NAME: Harrison Milligan DATE: October 25, 2018 TIME: 2:50 PM PAGER/CONTACT #: [phone] Normal [facility] PROGRESSon 10-25-2018 PROGRESS HNO ID: [id number] Author: Rolo Hyatt Service: Hospital Medicine Author Type: Physician Type: Progress Notes Filed: 10/25/2018 1:39 PM Note Text: INPATIENT PROGRESS NOTE CHIEF COMPLAINT: WOLF INTERVAL HPI: no new issues. Plans for CABG tentatively on 10/29. He denies any CP/SOB PHYSICAL EXAM: BP 107/42 Pulse 65 Temp (Src) 98.1 (Oral) Resp 18 Ht 5' 11 (1.80m) Wt 303 lb 1.6 oz (137.5kg) SpO2 98% BMI 42.29 kg/(m2). GENERAL: Alert, no distress, cooperative LUNGS: Lungs clear to auscultation, Good diaphragmatic excursion CARDIAC: Normal S1 and S2; no rubs, murmurs, or gallops ABDOMEN: Abdomen soft, non-tender, BS normal, No masses or organomegaly EXTREMITIES:no edema DATA: Diagnostic tests reviewed for today's visit: CBC, Coags, BMP, Mg, Phos Recent Labs 10/22/18 2045 WBC 9.03 HB 15.6 HCT 44.8 PLT 148 INR 1.05 NA 138 K 3.9 CHLOR 108* CO2 25 BUN 21* CREAT 1.13 GLUC 105* CA 8.7 MG 2.1 P 3.7 Assessment/Plan # CAD with LAD stenosis- CTS consulted for possible single vessel CABg # severe - again CTS for possible AVR # HTN stable # morbid obesity with BMI >40 Noted plans for OR tomorrow per pt ? SIGNATURE: Rolo Hyatt MD PATIENT NAME: Harrison Milligan DATE: October 25, 2018 TIME: 1:37 PM PAGER: [facility] ALLIED HEALTHon 10-24-2018 ALLIED HEALTH HNO ID: [id number] Author: Gabrielle Pinon (Chaplain), Jay Service: ? 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 PT indicated that he is a [employer] from [place]; his divisional merchandising manager has been here to see him and pray for him. PT indicated he had a stroke that was caught through an MRA, survived skin cancer, and will have heart surgery soon. 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 Field Seismologist Signature: Chaplain Liu Channeler Insole To contact the Spiritual Care Department: Please call [phone] or Page the On-Call Field Seismologist at pager [phone] Thank you for the opportunity to be of service. This is an electronically created document. IF PRINTED, PLEASE DO NOT REMOVE FROM THE CHART OR MODIFY PRINTED COPY. [facility] ALLIED HEALTH HNO ID: [id number] Author: Constantino (Ex Phys) Morgan Service: Cardiovascular Testing Author Type: Provider Network Manager Type: Allied Health Filed: 10/24/2018 9:54 AM Note Text: CARDIAC REHAB 5 METER WALK TEST SERVICE DATE: 10/24/2018 SERVICE TIME: 9:54 AM ASSESSMENT: 5 Meter Walk Test 5 Meter Walk Test Completed: Yes Trial 1 # of Seconds: 4.47 Trial 1 Assistive Device: None Trial 2 # of Seconds: 4.12 Trial 2 Assistive Device: None Trial 3 # of Seconds: 4.03 Trial 3 Assistive Device: None SIGNATURE: Erica Key PATIENT NAME: Harrison Milligan DATE: October 24, 2018 TIME: 9:54 AM PAGER/CONTACT #: [phone] [facility] CASE MANAGEMon 10-24-2018 CASE MANAGEM HNO ID: [id number] Author: Keira Landaverde (Sw) Service: Social Work Author Type: Associate Merchant Type: Care Mgt Progress Note Filed: 10/24/2018 4:36 PM Note Text: CARE MANAGEMENT PROGRESS NOTE SERVICE DATE: 10/24/2018 SERVICE TIME: 4:31 PM LOS: 2 days Advance Directive Met with pt per RN request and discussed Advance Directive. Pt expressed understanding of purpose and use of documents. Completed Living Will and DPOAHC. Copy placed in chart and copy taken to Registration. SIGNATURE: IMAN Zurita PATIENT NAME: Harrison Milligan DATE: October 24, 2018 TIME: 4:31 PM PAGER/CONTACT #: [phone] [facility] CONSULT PROGon 10-24-2018 CONSULT PROG HNO ID: [id number] Author: Flakita Baker APRN.CNP Service: Cardiovascular Surgery Author Type: Nurse Practitioner Type: Consult Progress Note Filed: 10/26/2018 8:40 AM Note Text: CARDIOTHORACIC SURGERY POSTOP PROGRESS NOTE SERVICE DATE: 10/24/2018 SERVICE TIME: 5:21 PM Subjective SURGERY: CABG+AVR DATE OF SURGERY: tentatively 10/29/2018 LOS: 2 HPI: HPI:??This is a 78 year old male transferred from [facility] for surgical evaluation of combined aortic valve replacement and bypass surgery. Patient presented to [facility]?10/18/2018?with progressively worsening of?shortness of breath with minimal exertion, chest discomfort, confusion, and expressive aphasia. During the emergency room workup, his creatinine was found 1.48, troponin was 0.554, chest x-ray revealed widened mediastinum. CT brain and MRI without contrast showed no evidence of acute or subacute ischemic infarct. His EKG was unremarkable. He was ruled in for non-ST elevation myocardial infarction as his troponin continued to uptrend and peaked at 1.41 the following day. Cardiac workup including heart cath, Echo and KOKI suggested coronary artery disease with 50% left main ?and 70% LAD lesion; severe aortic valve stenosis. ? Patient reports ongoing shortness of breath for approximately a year now with progressive worsening within the week, even with minimal exertion. He admits chest discomfort, described as tight, pressure like chest pain, radiating down to right arm frequently. Both chest discomfort and shortness of breath resolved with rest. Patient also reports some lightheadedness and episodes of dizzy spell occasionally. He denies diaphoresis, N/V, chest palpitation. He also reports positive of orthopnea, he chronically sleeps in the chair or with his head of the bed elevated at night due to shortness of breath or dyspnea. He denies leg edema, however, he reports constant tightness in both legs chronically. He denies syncope or near syncope, denies arrhythmia. 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 ? 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 INTERVAL EVENTS / PERTINENT ROS: Medical records requested from [facility] confirmed that patient has received Plavix last dose taken on 10/21/2018 after a Plavix load of 300 mg on 10/20/2018. Continue following up on pre-op work ups. Objective Admission Weight: (!) 140.2 kg (309 lb) BP 116/53 Pulse 60 Temp 37 ?C (98.6 ?F) (Oral) Resp 18 Ht 180.3 cm (5' 11) Wt (!) 137.4 kg (302 lb 14.4 oz) SpO2 97% BMI 42.25 kg/m? Body surface area is 2.62 meters squared. Min/Max/Average Temperature AND Blood Pressure: Temp (24hrs), Av.8 ?C (98.2 ?F), Min:36.6 ?C (97.9 ?F), Max:37 ?C (98.6 ?F) Systolic (24hrs), Av , Min:94 , Max:116 Diastolic (24hrs), Av, Min:45, Max:55 Intake/Output Summary (Last 24 hours) at 10/24/2018 1721 Last data filed at 10/23/20182014 Gross per 24 hour Intake 240 ml Output ? Net 240 ml TELEMETRY: normal sinus rhythm PHYSICAL EXAM: General Appearance: well developed and no distress Skin: warm and dry Lungs: clear and respiratory effort: normal Heart: regular rhythm, S1, S2 normal and 4/6 crescendo decrescendo murmur noted best heard at 2nd LEFT ICS, with referring murmur louder on the left ICA2 Peripheral Vascular/Arteries: pulses intact, dorsalis pedis +2 and radial +2 Abdomen: soft, bowel sounds present and no masses Extremities: edema: Trace and venous insufficiency in bilateral lower legs Lines, Drains, and Airways Line Peripheral 10/21/18 0700 Admission to Hospital Short Right Wrist 22 Gauge 3 days DATA: Diagnostic tests reviewed for today's visit: KOKI: Review report from [place] Carotid ultrasound: Reviewed report Recent Labs 10/23/18 1430 10/22/18 2045 RBC -- 4.96 WBC -- 9.03 HB -- 15.6 HCT -- 44.8 PLT -- 148 INR -- 1.05 NA -- 138 K -- 3.9 CHLOR -- 108* CO2 -- 25 BUN -- 21* CREAT -- 1.13 GLUC -- 105* CA -- 8.7 MG -- 2.1 P -- 3.7 ANION -- 9 MRSA No MRSA detected. -- Recent Labs 10/23/18 1555 UPH 5.0 SPGR 1.024 UGLUC NEGATIVE UBILI NEGATIVE UKET NEGATIVE UPROT NEGATIVE Assessment/Plan CAD (coronary artery disease) POA: Yes -Currently chest pain-free -Review HC report per the [facility]: Coronary artery disease with 50% left main -Agree with : ASA, statin, resumed Coreg 3.125 mg BID -Case discussed with Dr. Helms: Patient is required to undergo Plavix washout 5-7 days, Tentatively OR schedule 10/29. ? Active Problems: Essential hypertension POA: Yes -VSS -Continue current regimens: Lisinopril 40 daily, hydrochlorothiazide 12.5 daily ? Mixed hyperlipidemia POA: Yes -Continue statin ? NSTEMI (non-ST elevated myocardial infarction) (HCC) POA: Yes Aortic stenosis POA: Yes -Reviewed echo report: P/M aortic valve gradient: 102/64 millimeter mercury, JAMAR 0.88 cm? with heavily calcification noted -Appear to be consistent with patient's symptoms of shortness of breath and chest discomfort -Workup in progress, film uploaded Offered the cardiac surgery binder. I went over post-op recovery expectations (ICU and [id number]) with patient. As well as went over briefly with the content from the cardiac surgery book. Reviewed patient's PFT, IS and Duoneb ordered for pre-op lung function optimization. MRSA result reviewed and treatment order reviewed, Questions and concerns are addressed. Patient has no questions at this point. Addendum: Pre-op check list reviewed: missing Type and screen. Communicated with RN to make sure it is done tomorrow for surgery 10/29. Pre-op preparation orders placed, including: NPO, meds(BB+ASA), Lovenox stop time, CHG bath. Blood products ordered x2. Flakita Baker APRN.EXECUTIVE CREATIVE DIRECTOR Tests/Labs Ordered: 1. None During this patient visit I have spent approximately 30 minutes out of 40 in counseling regarding cardiovascular risk reduction, treatment options pertaining to surgical intervention for CABG +AVR and postop care and education. SIGNATURE: Flakita Baker APRN.EXECUTIVE CREATIVE DIRECTOR PATIENT NAME: Harrison Milligan DATE: October 24, 2018 TIME: 5:21 PM PAGER/CONTACT #:[phone] ETX [id number] Normal [facility] PROGRESSon 10-24-2018 PROGRESS HNO ID: [id number] Author: Rolo Hyatt Service: Hospital Medicine Author Type: Physician Type: Progress Notes Filed: 10/24/2018 10:35 AM Note Text: INPATIENT PROGRESS NOTE CHIEF COMPLAINT: Dyspnea INTERVAL HPI: Pt denies any new complaints. No CP/SOB PHYSICAL EXAM: BP 105/49 Pulse 63 Temp (Src) 98.1 (Oral) Resp 18 Ht 5' 11 (1.80m) Wt 302 lb 14.4 oz (137.4kg) SpO2 95% BMI 42.26 kg/(m2). GENERAL: Alert, no distress, cooperative LUNGS: Lungs clear to auscultation, Good diaphragmatic excursion CARDIAC: Normal S1 and S2; no rubs, murmurs, or gallops ABDOMEN: Abdomen soft, non-tender, BS normal, No masses or organomegaly EXTREMITIES: no edema DATA: Diagnostic tests reviewed for today's visit: CBC, Coags, BMP, Mg, Phos Recent Labs 10/22/18 2045 WBC 9.03 HB 15.6 HCT 44.8 PLT 148 INR 1.05 NA 138 K 3.9 CHLOR 108* CO2 25 BUN 21* CREAT 1.13 GLUC 105* CA 8.7 MG 2.1 P 3.7 Assessment/Plan ? # CAD with LAD stenosis- CTS consulted for possible single vessel CABg # severe - again CTS for possible AVR # HTN stable # morbid obesity with BMI >40 Noted plans for OR tomorrow per pt SIGNATURE: Rolo Hyatt MD PATIENT NAME: Harrison Milligan DATE: October 24, 2018 TIME: 10:33 AM PAGER: [facility] ALLIED HEALTHon 10-23-2018 ALLIED HEALTH HNO ID: [id number] Author: Damián Adams (Chaplain), Jay Service: Spiritual Care Author Type: Field Seismologist Type: Allied Health Filed: 10/23/2018 2:41 PM Note Text: SPIRITUALCARE Spiritual Care Visit- Brief Note Name: Harrison Milligan Date: October 23, 2018 Notes: Field Seismologist saw PT while visiting New Admissions for 10/23/2018. Field Seismologist introduced Spiritual Care Dept. to PT, his and son. PT was concerned about possible upcoming surgery and did not require any services. Field Seismologist provided spiritual presence and comfort. Field Seismologist Signature: Chaplain Joe Channeler Insole To contact the Spiritual Care Department: Please call [phone] or Page the On-Call Field Seismologist at pager [phone] Thank you for the opportunity to be of service. This is an electronically created document. IF PRINTED, PLEASE DO NOT REMOVE FROM THE CHART OR MODIFY PRINTED COPY. [facility] CASE MGT INIT ASSESon 2018 CASE MGT INIT ASS HNO ID: [id number] Author: Sophy (Rn) LOKESH Scott Service: Care Management Author Type: Registered Nurse Type: Care Mgt Initial Assessment Filed: 10/23/2018 3:46 PM Note Text: CARE MANAGEMENT: ASSESSMENT AND DISCHARGE PLAN SERVICE DATE: 10/23/2018 SERVICE TIME: 3:38 PM PRIMARY CARE PHYSICIAN: Latonia Yarbrough MD ADMISSION STATUS: Inpatient Needs Prior to Discharge: Home Care Order;Discharge Prescriptions;Pharmacy Bedside Delivery Pharmacy: [facility] MEDICAL: Patient/Patternator Stated Goals: To return home to life as it was To be cured/healed Health Insurance: MEDICARE A AND B [facility] Health Issues Impacting Discharge Plan: CAD - Needs CABG/AVR Last Admission Date: none Is this Within the Past 30 days? No Advance Directive: Current Advance Directive: None Manager Of Change Attempted to Assist with AD Completion: Yes Action: Education Provided Health Literacy: 1. How often do you need to have someone help you when you read instructions, pamphlets, or other written material from your doctor or pharmacy? Rarely - 2 2. How confident are you filling out medical forms by yourself? Quite a bit - 2 If Patient scores > 3 on either question, the following interventions were put into place: Patient did not score > 3 FUNCTIONAL AND COGNITIVE/BEHAVIORAL PRIOR TO ADMISSION: Baseline Mental Status: Alert AND Oriented, Person, Place , Time and Situation Functional Status: Independent Does Patient Currently Receive Any Community Services or Home Care? None Equipment Prior to Admission: None Has the Patient Been in a Jail Facility in the Past 30 days? No SOCIAL: Living Arrangement: Home Lives With: Spouse Financial Resources: Retired Primary Contact: Extended Emergency Contact Information Primary Emergency Contact: Héctor Milligan Mobile Relation: Son Secondary Emergency Contact: Francisca Milligan Mobile Relation: Spouse Supportive: Yes Other Important Patient Contacts: None Caregiver Assessment: Caregiver is ready, willing and able to meet the patient's needs as recommended by the inter-professional team? No Caregiver Needed Patient's transition needs and plan for meeting these needs: Home with [facility] Does the patient have an acute stroke diagnosis, or has the patient had a stroke during this admission? No Medication Adherence: I am convinced of the importance of my prescription medication: Agree mostly - 0 I worry that my prescription medication will do more harm than good to me Disagree mostly - 0 I feel financially burdened by my [id number] expenses for my prescription medication: Disagree mostly -0 Patient is categorized as low risk < 2 Are you interested in bedside delivery of your medications? Yes Food Concerns: In the Last Month, Have You had Trouble Getting Food? No trouble getting food During the Last Month, Have You Worried Whether Your Food Would Run Out Before You Had Enough Money to Buy More? No Is the Patient Psychosocially Complex? No ASSESSMENT AND PLAN: Medical Needs: 2 or more chronic diseases Psychosocial Needs: None FREEDOM OF CHOICE EXPLAINED: Financial Disclosure Provided POTENTIAL TRANSITION PLANS Home Home Care From home with spouse. Son lives nextdoor. 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 (+) PCP (+) Rx coverage. Will need AVR/CABG awaiting plan from [facility]. able to stay with patient following surgery at discharge. SIGNATURE: Sophy Scott RN PATIENT NAME: Harrison Milligan DATE: October 23, 2018 TIME: 3:38 PM [id number] Normal [facility] CONSULTon 10-23-2018 CONSULT HNO ID: [id number] Author: Scott Helms Service: Cardiovascular Surgery Author Type: Physician Type: Consults Filed: 10/28/2018 6:28 PM Note Text: CARDIOTHORACIC SURGERY CONSULT / HANDP SERVICE DATE: 10/23/2018 SERVICE TIME: 8:42 AM Subjective PRIMARY SERVICE: Cardiothoracic Surgery CHIEF COMPLAINT: Worsening SOB and chest pain HPI: This is a 78 year old male transferred from [facility] for surgical evaluation of combined aortic valve replacement and bypass surgery. Patient presented to [facility] 10/18/2018 with progressively worsening of shortness of breath with minimal exertion, chest discomfort, confusion, and expressive aphasia. During the emergency room workup, his creatinine was found 1.48, troponin was 0.554, chest x-ray revealed widened mediastinum. CT brain and MRI without contrast showed no evidence of acute or subacute ischemic infarct. His EKG was unremarkable. He was ruled in for non-ST elevation myocardial infarction as his troponin continued to uptrend and peaked at 1.41 the following day. Cardiac workup including heart cath, Echo and KOKI suggested coronary artery disease with 50% left main and 70% LAD lesion; severe aortic valve stenosis. Patient reports ongoing shortness of breath for approximately a year now with progressive worsening within the week, even with minimal exertion. He admits chest discomfort, described as tight, pressure like chest pain, radiating down to right arm frequently. Both chest discomfort and shortness of breath resolved with rest. Patient also reports some lightheadedness and episodes of dizzy spell occasionally. He denies diaphoresis, N/V, chest palpitation. He also reports positive of orthopnea, he chronically sleeps in the chair or with his head of the bed elevated at night due to shortness of breath or dyspnea. He denies leg edema, however, he reports constant tightness in both legs chronically. He denies syncope or near syncope, denies arrhythmia. 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 HC 10/21: LM : 50% calcification, 50% stenosis; LAD: Long 70% stenosis with distal mild luminal irregularities; CX: Mild luminal irregularities less than 30%; RCA: Mild luminal irregularities. Severe aortic valve calcification. ECHO 10/19/2018: Normal LV size with severe concentric LVH. Normal LV systolic function with EF 60%. Stage I DD. No regional WMA noted. Peak aortic valve gradient 102 mmHg, mean aortic valve gradient 64 mmHg. severe aortic stenosis. Calculated aortic valve area is 0.88 cm?. KOKI 10/22/18: No study report hand, per Dr. Kebede's note: Severe aortic stenosis as calcification and mild mitral regurgitation. Ejection fraction is noted to be borderline. 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 Patient is Able to Perform the Following Physical Activity: Walk indoors, such as around the house (1.75 METs) Do light work around the house, such as dusting or washing dishes (2.70 METs) Take care of self; that is eating, dressing, bathing, using the toilet (2.75 METs) Patient has the following medical comorbidities which might affect the perioperative course: - CAD of the [place] vessel. No interventions. New finding, no past medical issue of CAD known to the patient. - CKD, Stage 1, due to unknown cause. - Hypertension, well controlled. - Patient is morbidly obese related to excessive caloric intake and Sedentary lifestyle. Body mass index is 43.1 kg/m?. - History of TIA. PAST MEDICAL HISTORY Diagnosis Date - Cerebrovascular disease 10/22/2018 - High blood pressure - HLD (hyperlipidemia) - Stroke (HCC) PAST SURGICAL HISTORY Procedure Laterality Date - CARDIAC CATH 10/21/2018 [facility] - TONSILLECTOMY AND ADENOIDECTOMY HX FAMILY HISTORY Problem Relation Age of Onset - Diabetes Father - Thyroid Sister - Cancer Mother thyroid - Diabetes Mother - Hypertension Mother Social History Tobacco Use - Smoking status: Never Smoker - Smokeless tobacco: Never Used Substance Use Topics - Alcohol use: No - Drug use: No Medications Prior to Admission: Hydrochlorothiazide 12.5 mg capsule Take 1 capsule by mouth once daily. Disp: 90 capsule Rfl: 3 Taking simvastatin (ZOCOR) 40 mg tablet Take 1 tablet by mouth daily at bedtime. Disp: 90 tablet Rfl: 3 Taking lisinopril (ZESTRIL, PRINIVIL) 40 mg tablet Take 1 tablet by mouth once daily. Disp: 90 tablet Rfl: 3 Taking MULTIVITAMIN ORAL Take by mouth. Disp: Rfl: Taking Aspirin 81 mg ORAL Tab Take 81 mg by mouth. Disp: Rfl: Taking Hydrochlorothiazide 12.5 mg capsule Take 1 capsule by mouth once daily. simvastatin (ZOCOR) 40 mg tablet Take 1 tablet by mouth daily at bedtime. lisinopril (ZESTRIL, PRINIVIL) 40 mg tablet Take 1 tablet by mouth once daily. MULTIVITAMIN ORAL Take by mouth. Aspirin 81 mg ORAL Tab Take 81 mg by mouth. ALLERGIES No Known Allergies REVIEW OF SYSTEMS: PAIN ASSESSMENT: Negative for pain, history of chronic pain, or current treatment for a chronic pain condition. GENERAL: No weight loss, malaise or fevers NECK: Negative for lumps, goiter, pain and significant neck swelling RESPIRATORY: Positive for shortness of breath on exertion ., shortness of breath limiting daily activity ., See HPI CARDIOVASCULAR: Positive for chest pain Chest discomfort chest pain on exertion Frequently leg swelling Tightness chronically paroxysmal nocturnal dyspnea Sleep in the chair or with head of the bed elevated at night orthopnea Yes claudication No, but has cold feet frequently at night GI: Negative for abdominal discomfort, blood in stools or black stools or change in bowel habits and Positive for Has abdominal hernia : No history of dysuria, frequency or incontinence MUSCULOSKELETAL: Negative for joint pain or swelling, back pain or muscle pain. SKIN: Negative for lesions, rash, and itching. PSYCH: Negative for sleep disturbance, mood disorder and recent psychosocial stressors. HEMATOLOGY/LYMPHOLOGY Negative for prolonged bleeding, bruising easily or swollen nodes. ENDOCRINE: Negative for cold or heat intolerance, polyuria, polydipsia and goiter. NEURO: No history of headaches, syncope, paralysis, seizures or tremors See HPI Objective PHYSICAL EXAM: BP 109/53 Pulse 72 Temp 37 ?C (98.6 ?F) (Temporal Artery) Resp 18 Ht 180.3 cm (5' 11) Wt (!) 140.2 kg (309 lb) SpO2 96% BMI 43.10 kg/m? Body surface area is 2.65 meters squared. STS RISK CALCULATOR: 5.494% (RFs: Age, obesity, CVA) General Appearance: obese and no distress Skin: warm, dry and Brownish discoloration bilateral lower leg Lungs: clear and respiratory effort: normal Heart: regular rhythm, S1, S2 normal and 4/6 crescendo decrescendo murmur noted best heard at 2nd LEFT ICS, with referring murmur louder on the left ICA Peripheral Vascular/Arteries: pulses intact, dorsalis pedis +2 and radial +2 Abdomen: soft, non-tender and bowel sounds present Genitourinary: voiding without difficulty Musculoskeletal: no deformities Neurologic/Psychiatric: oriented to time, place and person and steady gait Extremities: edema: no, Brownish discoloration noted bilateral lower extremity, ? Venous insufficiency. and . Lines, Drains, and Airways Line Peripheral 10/21/18 0700 Admission to Hospital Short Right Wrist 22 Gauge 2 days @LDAASSESS(2::::8:)@ DATA: Diagnostic tests reviewed for today's visit: All documents below are transcribed from [facility] records: HC 10/21: LM : 50% calcification, 50% stenosis; LAD: Long 70% stenosis with distal mild luminal irregularities; CX: Mild luminal irregularities less than 30%; RCA: Mild luminal irregularities. Severe aortic valve calcification. ECHO 10/19/2018: Normal LV size with severe concentric LVH. Normal LV systolic function with EF 60%. Stage I DD. No regional WMA noted. Peak aortic valve gradient 102 mmHg, mean aortic valve gradient 64 mmHg. severe aortic stenosis. Calculated aortic valve area is 0.88 cm?. KOKI 10/22/18: No study report hand, per Dr. Kebdee's note: Severe aortic stenosis as calcification and mild mitral regurgitation. Ejection fraction is noted to be borderline. Chest X-RAY 1 view 10/18/18: No acute cardiopulmonary process. Normal size heart. Normal mediastinum and hilar. Normal visualized pulmonary arteries. There is arthrosclerotic calcification of aortic arch with Tortuosity. Brain/head without contrast 10/19/18: No evidence of an acute intracranial abnormality Mild bilateral periventricular and subcortical white matter chronic small vessel disease with age appropriate cerebral atrophy CTA chest 10/19/2018: 1. No demonstrated pulmonary embolism or arterial dissection. 2. The lungs are underexpanded, and there is crowding. Irregular subsegmental atelectasis or scarring also seen in the posterolateral basilar left lower lobe. 3. The heart is enlarged. There is calcification of mitral valve annulus and aortic valve leaflets. Arthrosclerotic vascular calcification are also present. 4. Mildly lobulated and heterogenic thyroid gland with occasional coarse calcifications. 5.diffuse degenerative changes of the spine. Minor anterior wedging T7-T9 with exaggerated dorsal kyphosis. A mild thoracic scoliosis also present. MRI brain without contrast 10/20/18: 1. No MRI evidence of acute or subacute ischemic infarct. 2. Chronic white matter ischemic changes in both cerebral hemispheres 3. Old linear cystic infarcts in the right inferior cerebellar hemisphere ECHO 03/21/2011: LEFT VENTRICLE ? The left ventricle is normal in size. ? There is mild concentric left ventricular hypertrophy. ? Left ventricular systolic function is normal. ? Baseline left ventricular diastolic function is consistent with abnormal ? relaxation (stage 1). LVOT gradient at rest of 10mmHg. 19mmHg with valsalva. ? ? No significant LVOT obstruction. ? LEFT ATRIUM ? The left atrial cavity is normal. The left atrial cavity area is 19cm2. ? RIGHT ATRIUM ? The right atrial cavity is normal. The right atrial cavity area is 20cm2. ? MITRAL VALVE ? There is mild mitral annular calcification observed posterior. There is no ? ? ? mitral stenosis. There is trivial mitral valve regurgitation. ? TRICUSPID VALVE ? There is no tricuspid stenosis. There is trivial tricuspid valve regurgitation. ? AORTIC VALVE ? There is mild aortic valve stenosis. Vmax 2.0 m/s. There is no aortic valve ? ? regurgitation. Tricuspid aortic valve. There is mild diffuse thickening. The ? ? peak gradient is 16 mmHg. The mean gradient is 8 mmHg. The aortic VTI is 33.5 ? cm. The mean velocity in the aortic valve is 124.5 cm/s. ? PULMONIC VALVE ? The pulmonic valve is normal. ? AORTA ? Measurements - Sinus 3.4 cm. Mid ascending aorta 3.8 cm. ? INTERATRIAL SEPTUM ? The interatrial septum is normal. ? PERICARDIUM ? The pericardium is normal. ? CONCLUSIONS: ? - Technically difficult exam due to body habitus with poor image quality. ? ? ? - Exam indication: Syncope / CVA ? - The left ventricle is normal in size. There is mild concentric left ? ventricular hypertrophy. Left ventricular systolic function is normal. EF = 55 ? 5% (visual est.) ? - Stage 1 diastolic dysfunction. ? - Mild mitral annular calcification with trivial MR. ? - Trivial TR. Pulmonary artery pressure is inferred to be low. ? - Mild aortic stenosis with no AI. No significant stenosis. ? - Unable to use saline contrast to assess IAS, due to poor image quality. ? ? ? - There is no previous echo for comparison. ? Carotid US 03/10/2011: IMPRESSION: RIGHT: 1. Moderate, calcific plaque in the bulb and proximal internal carotid artery was consistent with <50% stenosis by flow velocity criteria. ? 2. ?Normal ?flow characteristics in the external carotid artery. 3. ?Normal vertebral artery flow characteristics. LEFT: 1. Moderate, heterogeneous, shadowing plaque in the bulb and proximal internal carotid artery was consistent with <50% stenosis by flow velocity criteria. ?The Internal carotid artery peak flow velocity may be underestimated due to shadowing. ? 2. ?Normal ?flow characteristics in the external carotid artery. 3. ?Normal vertebral artery flow characteristics. No prior study available for comparison.? Recent Labs 10/22/18 2045 RBC 4.96 WBC 9.03 HB 15.6 HCT 44.8 PLT 148 INR 1.05 NA 138 K 3.9 CHLOR 108* CO2 25 BUN 21* CREAT 1.13 GLUC 105* CA 8.7 MG 2.1 P 3.7 ANION 9 Assessment/Plan Principal Problem: CAD (coronary artery disease) POA: Yes -Currently chest pain-free -Review HC report per the [facility]: Coronary artery disease with 50% left main -Agree with : ASA, statin, patient should resume his beta whit-Coreg 3.125 mg BID -Will review cath films with Dr. Helms to further formulate surgical plans, workup in progress. Films are being uploaded to system. Active Problems: Essential hypertension POA: Yes -VSS -Continue current regimens: Lisinopril 40 daily, hydrochlorothiazide 12.5 daily Mixed hyperlipidemia POA: Yes -Continue statin NSTEMI (non-ST elevated myocardial infarction) (HCC) POA: Yes Aortic stenosis POA: Yes -Reviewed echo report: P/M aortic valve gradient: 102/64 millimeter mercury, JAMAR 0.88 cm? with heavily calcification noted -Appear to be consistent with patient's symptoms of shortness of breath and chest discomfort -Workup in progress, film uploaded, we will possible present patient to valve conference -Request KOKI report from [facility] Tests/Labs Ordered: 1. Urinalysis 2. mrsa 3. 5 meter walk 4. Bedside spirometry 5. ProBNP These findings will be communicated back to the requesting provider electronically. During this patient visit I have spent approximately 45 minutes out of 90 in counseling regarding weight loss, cardiovascular risk reduction, treatment options, medications and test results and coordinating care. SIGNATURE: Flakita Baker APRN.CNP PATIENT NAME: Harrison Milligan DATE: October 23, 2018 TIME: 8:42 AM PAGER/CONTACT #:[id number] ETX [id number] Attending Note I have personally performed a face to face assessment of the patient and have reviewed the PA/HEAD GAUGE UNIT OPERATOR note. My marmolejo findings include: Assessment/Plan are : 78 year old man transferred from [facility] after admitted for NSTEMi complicated by acute on chronic diastolic CHF, found to have severe , left main and LAD lesions,. with low normal LV function; in setting of HTN, HLD, morbid obesity, previous CVA with minimal residual. Recommend combined CABG and AVR with a bioprosthesis. The risks, benefits, and anticipated outcomes of the procedure; the risks and benefits of the alternatives to the procedure; and the roles and tasks of the personnel to be involved were discussed with the patient and he consents to the procedure and agrees to proceed. OR next week to allow plavix washout. Preop eval as outlined. Scott Helms MD Other additions or changes: None Signature: Scott Helms MD Date: 10/28/2018 Time: 6:24 PM Normal [facility] CONSULT PROGon 10-23-2018 CONSULT PROG HNO ID: [id number] Author: Flakita Gupta) ELOINA Baker Service: Cardiovascular Surgery Author Type: Nurse Practitioner Type: Consult Progress Note Filed: 10/27/2018 9:10 AM Note Text: CTVS Surgery Pre-Op Open Heart Check List Patient Info: Harrison Milligan 1940 78 year old Patient has no known allergies. ? HPI: This is a 78 year old male transferred from [facility] for surgical evaluation of combined aortic valve replacement and bypass surgery. Patient presented to [facility] 10/18/2018 with progressively worsening of shortness of breath with minimal exertion, chest discomfort, confusion, and expressive aphasia. During the emergency room workup, his creatinine was found 1.48, troponin was 0.554, chest x-ray revealed widened mediastinum. CT brain and MRI without contrast showed no evidence of acute or subacute ischemic infarct. His EKG was unremarkable. He was ruled in for non-ST elevation myocardial infarction as his troponin continued to uptrend and peaked at 1.41 the following day. Cardiac workup including heart cath, Echo and KOKI suggested coronary artery disease with 50% left main and 70% LAD lesion; severe aortic valve stenosis. ? Patient reports ongoing shortness of breath for approximately a year now with progressive worsening within the week, even with minimal exertion. He admits chest discomfort, described as tight, pressure like chest pain, radiating down to right arm frequently. Both chest discomfort and shortness of breath resolved with rest. Patient also reports some lightheadedness and episodes of dizzy spell occasionally. He denies diaphoresis, N/V, chest palpitation. He also reports positive of orthopnea, he chronically sleeps in the chair or with his head of the bed elevated at night due to shortness of breath or dyspnea. He denies leg edema, however, he reports constant tightness in both legs chronically. He denies syncope or near syncope, denies arrhythmia. 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 Last set of vitals: BP (!) 127/43 Pulse 74 Temp 36.7 ?C (98.1 ?F) (Oral) Resp 18 Ht 180.3 cm (5' 11) Wt (!) 140.2 kg (309 lb) SpO2 95% BMI 43.10 kg/m? Wt: 140.8 kg (310 lb 6.4 oz) BMI: 43.29 kg/(m2) Procedure: CABG+/-AVR Diagnosis: , CAD Date of Procedure: 10/29/2018 STS Risk Score: 5.494% (RFs: Age, obesity, CVA) CARE TEAM: Cardiac Surgeon: Dr. Helms Carpet Cutter: Dr. Kebede PCP: Dr. Yarbrough Other Providers: Dr. Oglesby-Derm; Dr. Stevenson-Labor And Delivery Nurse; Pre-Op Testing: LABS: No results found for: TROPT Recent Labs 10/22/182044 RBC 4.96 WBC 9.03 HB 15.6 HCT 44.8 PLT 148 INR 1.05 NA 138 K 3.9 CHLOR 108* CO2 25 BUN 21* CREAT 1.13 GLUC 105* CA 8.7 MG 2.1 P 3.7 ANION 9 HGB (g/dL) Date Value 10/22/2018 15.6 Hematocrit (%) Date Value 10/22/2018 44.8 WBC (thou/cmm) Date Value 10/22/2018 9.03 Platelet Count (thou/cmm) Date Value 10/22/2018 148 Chemistry Glucose (mg/dL) Date Value 10/22/2018 105 Potassium (mEq/L) Date Value 10/22/2018 3.9 Sodium (mEq/L) Date Value 10/22/2018 138 Chloride (mEq/L) Date Value 10/22/2018 108 CO2 (mEq/L) Date Value 10/22/2018 25 Creatinine (mg/dL) Date Value 10/22/2018 1.13 BUN (mg/dL) Date Value 10/22/2018 21 Anion Gap (no units) Date Value 10/22/2018 9 Calcium (mg/dL) Date Value 10/22/2018 8.7 Protein, Total (g/dL) Date Value 05/09/2018 6.8 Albumin (g/dL) Date Value 05/09/2018 4.1 Bilirubin, Total (mg/dL) Date Value 05/09/2018 0.6 Alkaline Phosphatase (U/L) Date Value 05/09/2018 57 AST (U/L) Date Value 05/09/2018 38 ALT (U/L) Date Value 05/09/2018 27 Coag Recent Labs 10/22/182044 INR 1.05 Results for HARRISON MILLIGAN ( ) as of 10/23/2018 13:29 Ref. Range 10/22/2018 20:45 Prothrombin Time Latest Ref Range: 9.7 - 13.0 sec 10.9 INR Latest Ref Range: 0.90 - 1.30 1.05 UA Results for HARRISON MILLIGAN ( ) as of 10/24/2018 12:37 Ref. Range 10/23/2018 15:55 Color Unknown YELLOW Specific [place], Ur Latest Ref Range: 1.005 - 1.030 1.024 pH, Urine Latest Ref Range: 5.0 - 8.0 5.0 Protein, Urine Latest Ref Range: Negative mg/dL NEGATIVE Glucose, Urine Latest Ref Range: Negative mg/dL NEGATIVE Ketones, Urine Latest Ref Range: Negative mg/dL NEGATIVE Bilirubin, Urine Latest Ref Range: Negative NEGATIVE Urobilinogen, Urine Latest Ref Range: 0.0 - 1.0 EU/dL 1.0 RBC, Urine Latest Ref Range: 0.0 - 5.0 /hpf 1.0 EP Cells Urine Latest Ref Range: 0.0 - 5.0 /hpf 0.2 Hemoglobin, Urine Latest Ref Range: Negative NEGATIVE Bacteria, Urine Latest Ref Range: None NONE Hyaline Cast Latest Ref Range: 0.0 - 1.0 /lpf 0.7 Leukocytes Esterase Latest Ref Range: Negative NEGATIVE Nitrite Reflex Latest Ref Range: Negative NEGATIVE Urine Appearance Unknown CLEAR WBC, REFLEX Latest Ref Range: 0.00 - 5.00 /hpf 0.40 Type AND Screen: Results for HARRISON MILLIGAN ( ) as of 10/27/2018 09:10 Ref. Range 10/26/2018 09:25 ABO Group Unknown O RH Type Unknown Positive Antibody Screen Unknown NEGATIVE Blood Bank Comment Unknown See Below Xmatch Unit 1 Unknown see below Xmatch Unit 2 Unknown see below RBC Cross match: 2 UNITS MRSA Screen: NEGATIVE, TREATED HGA1C Lab Results Component Value Date HBA1C 6.1 05/09/2018 HBA1C 5.9 05/15/2017 HBA1C 6.2 04/04/2016 PFT/ABG: FEVI: 63% DLCO: n/a ABG: n/a Recent Labs 10/22/18 2045 CO2 25 . IMAGING/PROCEDURES CXR: Outside hospital Findings: The patient appears to be slightly rotated to the right. There is no focal consolidation. Normal heart size. Normal mediastinum and hilum. Normal visualized pulmonary arteries. There is atherosclerotic calcification of the aortic arch with tortuosity. Air diffuse degenerative changes of the visualized thoracic spine. Normal visualized ribs, clavicles, and shoulders. There is no demonstrated abnormality of the visualized soft tissue structure of the upper abdomen Cardiac Catheterization: Dominance: Right dominant Left heart assessment: Normal LV wall motion Normal LV systolic function, EF 60% Left main: 50% calcification 50% stenosis LAD: Long 70% stenosis Distal LAD: Mild luminal irregularities Circumflex artery: Mild luminal irregularities less than 30% Right coronary artery: Mild luminal irregularities Severe aortic valve calcification. 2D Echo: EF: 60% Left ventricle: Normal LV size. Severe concentric left ventricular hypertrophy hypertrophy. Left ventricular systolic function is normal. The estimated ejection fraction is 60%. Stage I diastolic dysfunction. No regional wall motion abnormalities noted. Right ventricle: The right ventricle is not well visualized normal systolic function. Atria: Normal left atrium. Normal right atrium. Mitral valve: Mitral valve not well visualized. Tricuspid valve: Tricuspid valve is not well visualized. Aortic valve: Aortic valve is not well visualized. Peak aortic valve gradient 102 mmHg, mean aortic valve gradient 64 mm per mercury. Severe aortic stenosis calculated aortic valve area continuity equation is 0.88 cm?. Pulmonic valve: The pulmonic valve is not well visualized. Great vessels: Normal aortic root. The pulmonary artery is normal in size. Normal inferior vena cava. Pericardium No pericardial effusion KOKI 10/22/2018 Left ventricle: Normal LV size. The estimated ejection fraction is 50%. No regional wall motion abnormalities. There is mild global hypokinesis of the left ventricle. Right ventricle: Normal RV size. Normal systolic function. Atria: Intact atrial septum. The left atrium is moderately enlarged. Normal right atrium Mitral valve: There is mild to moderate annular calcification mild focal mitral valve calcification of the posterior leaflet. Mild to moderate 1-2+ eccentric mitral valvular insufficiency. Tricuspid valve: Normal tricuspid valve Aortic valve: Trisinus/trileaflet aortic valve. Severe focal aortic valve calcification. Moderate aortic stenosis. Severe 4+ aortic valve insufficiency. Pulmonic valve Normal pulmonic valve. Vessels: Mildly dilated aortic root. Normal arch. The pulmonary artery is normal in size. Normal pulmonary veins. Pericardium: No pericardial effusion. 5 Meter Walk Test: 5 Meter Walk Test Completed: Yes Trial 1 # of Seconds: 4.47 Trial 1 Assistive Device: None Trial 2 # of Seconds: 4.12 Trial 2 Assistive Device: None Trial 3 # of Seconds: 4.03 Trial 3 Assistive Device: None OPTIONAL TESTINGS: Carotid U/S: Less than 50% stenosis bilaterally Lower EXT ANNALISE: N/A Palmar Arch: N/A Vein Mapping: N/A Dental Clearance: N.A CT Chest: Impression: 1 no demonstrated pulmonary embolism or arterial dissection. 2 the lungs are underexpanded, and there is crowding. Irregular subsegmental atelectasis or scarring is also seen in the posterior lateral basilar left lower lobe. 3 the heart is enlarged. There is calcification of the mitral valve annulus and the aortic valve leaflets. Atherosclerotic vascular calcifications are also present. There is atherosclerotic calcification of the aortic arch and ascending aortic thoracic aorta 4 mildly lobulated heterogenic rest thyroid gland with occasional coarse calcifications CT BRAIN without contrast Findings: #1 no evidence of acute intracranial abnormality. #2 mild bilateral periventricular and subcortical white matter chronic small vessel disease with age appropriate cerebral atrophy MRI BRAIN #1 no MRI evidence of acute or subacute ischemic infarct. #2 chronic white matter ischemic changes in both cerebral hemispheres. 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 Medications Notes: Blood thinners: Patient is on following blood thinners: Aspirin -Yes, dose 81 mg, stopped No, date:WOLF Beta Whit: Last dose of beta whit taken: DOS Perioperative Transfusion risk STS Risk Factors: Advanced age Yes Preoperative anemia No Non-CABG surgery No Preoperative anticoagulation No Clotting abnormalities No Female gender No Small body habitus No Renal insufficiency No IDDM No Sepsis No Liver disease No Preioperative Wound Healing - Vest recommended Yes (Yes to any one of the below requires a post thorax vest) Risk Factors: Obesity Yes DM No Renal Dx No CLEARANCES NEEDED Pulmonary: yes Hematology: No Nephrology No Vascular surgery no Other No 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 Normal [facility] Comment on above: Performed By: #### M RSA #### [place] [id number] N-terminal Pro-BNPon 019 Natriuretic peptide B (Bld) [Mass/Vol] 3258 pg/mL Normal [facility] Comment on above: Result Comment: Acut e CHF Rule-in <50 yrs old >= 450 pg/ml >50 yrs old >= 900 pg/ml Abnormal Pro-BNP All patients >=300 pg/ml Performed By: #### P BNP #### [facility] [address] [place] [id number] PROGRESSon 10-23-2018 PROGRESS HNO ID: [id number] Author: Rolo Hyatt Service: Hospital Medicine Author Type: Physician Type: Progress Notes Filed: 10/23/2018 1:29 PM Note Text: INPATIENT PROGRESS NOTE CHIEF COMPLAINT: WOLF INTERVAL HPI: No new issues. Pt tf from [facility] for CABg and AVR. Playing cards with family members. Denies CP/SOB PHYSICAL EXAM: BP 127/43 Pulse 74 Temp (Src) 98.1 (Oral) Resp 18 Ht 5' 11 (1.80m) Wt 309 lb (140.2kg) SpO2 95% BMI 43.12 kg/(m2). GENERAL: Alert, no distress, cooperative, [place] LUNGS: Lungs clear to auscultation, Good diaphragmatic excursion CARDIAC: RRR ABDOMEN: Abdomen soft, non-tender, BS normal, No masses or organomegaly EXTREMITIES: no edema DATA: Diagnostic tests reviewed for today's visit: CBC, Coags, BMP, Mg, Phos Recent Labs 10/22/18 2045 WBC 9.03 HB 15.6 HCT 44.8 PLT 148 INR 1.05 NA 138 K 3.9 CHLOR 108* CO2 25 BUN 21* CREAT 1.13 GLUC 105* CA 8.7 MG 2.1 P 3.7 Assessment/Plan # CAD with LAD stenosis- CTS consulted for possible single vessel CABg # severe - again CTS for possible AVR # HTN stable Await CTS input SIGNATURE: Rolo Hyatt MD PATIENT NAME: Harrison Milligan DATE: October 23, 2018 TIME: 1:26 PM PAGER: Normal [facility] Urinalysis, reflexon 019 Reflex Comment see below Normal [facility] Comment on above: Result Comment: Refl ex to culture is not indicated based on established laboratory criteria. Performed By: #### U RIN #### [place] [address] Bacteria LM.HPF (Urine sed) [#/Area] NONE Normal None [facility] Comment on above: Performed By: #### U RIN #### [facility] [address] [place] [address] Ep Cells Urine 0.2 /hpf Normal 0.0-5.0 [facility] Comment on above: Performed By: #### U RIN #### [facility] [address] [place] [address] Hyaline Cast 0.7 /lpf Normal 0.0-1.0 [facility] Comment on above: Performed By: #### U RIN #### [place] [address] RBC LM.HPF (Urine sed) [#/Area] 1.0 /[HPF] Normal 0.0-5.0 [facility] Comment on above: Performed By: #### U RIN #### [place] [address] WBC, reflex 0.40 /hpf Normal 0.00-5.00 [facility] Comment on above: Performed By: #### U RIN #### [place] [address] Appearance (U) CLEAR Normal [facility] Comment on above: Performed By: #### U RIN #### [place] [address] Bilirubin (U) [Mass/Vol] Negative Normal Negative [facility] Comment on above: Performed By: #### U RIN #### [place] [address] Color (U) YELLOW Normal [facility] Comment on above: Performed By: #### U RIN #### [place] [address] Glucose Ql (U) Negative Normal Negative [facility] Comment on above: Performed By: #### U RIN #### [place] [address] Hemoglobin,Urine Negative Normal Negative [facility] Comment on above: Performed By: #### U RIN #### [place] [address] Ketone Urine Negative Normal Negative [facility] Comment on above: Performed By: #### U RIN #### [facility] [address] [place] [address] Leukocyte esterase Test strip Ql (U) Negative Normal Negative [facility] Comment on above: Performed By: #### U RIN #### [facility] [address] [place] [address] Nitrite reflex Negative Normal Negative [facility] Comment on above: Performed By: #### U RIN #### [facility] [address] [place] [address] pH (U) 5.0 [pH] Normal 5.0-8.0 [facility] Comment on above: Performed By: #### U RIN #### [facility] [address] [place] [address] Protein (U) [Mass/Vol] Negative Normal Negative [facility] Comment on above: Performed By: #### U RIN #### [facility] [address] [place] [address] Specific [place], Ur 1.024 Normal 1.005-1.030 [facility] Comment on above: Performed By: #### U RIN #### [facility] [address] [place] [address] Urobilinogen,Ur 1.0 EU/dL Normal 0.0-1.0 [facility] Comment on above: Performed By: #### U RIN #### [place] [address] Basic Panelon 10-22-2018 Creatinine [Mass/Vol] 1.13 mg/dL Normal 0.67-1.17 [facility] Comment on above: Performed By: #### P 8 #### [facility] [address] [place] [address] Calcium [Mass/Vol] 8.7 mg/dL Normal 8.5-10.1 [facility] Comment on above: Performed By: #### P 8 #### [place] [address] Glucose [Mass/Vol] 105 mg/dL High 70-99 [facility] Comment on above: Performed By: #### P 8 #### [facility] [address] [place], [place] [address] Anion gap [Moles/Vol] 9 mmol/L Normal 8-16 [facility] Comment on above: Performed By: #### P 8 #### [facility] [address] [place], [place] [address] CO2 [Moles/Vol] 25 mmol/L Normal 21-32 [facility] Comment on above: Performed By: #### P 8 #### [facility] [address] [place], [place] [address] Urea nitrogen [Mass/Vol] 21 mg/dL High 7-18 [facility] Comment on above: Performed By: #### P 8 #### [facility] [address] [place], [place] [address] Chloride [Moles/Vol] 108 mmol/L High 98-107 [facility] Comment on above: Performed By: #### P 8 #### [facility] [address] [place], [place] [address] Potassium [Moles/Vol] 3.9 mmol/L Normal 3.5-5.1 [facility] Comment on above: Performed By: #### P 8 #### [facility] [address] [place] [address] Sodium [Moles/Vol] 138 mmol/L Normal 136-145 [facility] Comment on above: Performed By: #### P 8 #### [facility] [address] [place] [address] HISTORY PHYSICALon 9 HISTORY PHYSICAL HNO ID: [id number] Author: Yair Santiago Service: Hospital Medicine Author Type: Physician Type: HANDP Filed: 10/22/2018 11:35 PM Note Text: DEPARTMENT OF HOSPITAL MEDICINE [facility] HISTORY AND PHYSICAL EXAMINATION SERVICE DATE: 10/22/2018 7:23 PM PRIMARY CARE PHYSICIAN: Latonia Yarbrough MD CHIEF COMPLAINT: Dyspnea with exertion HPI: This is a 78 year old male who presents as an inpatient transfer from [facility]. He presented there with worsening dyspnea with exertion, reaching the point of dyspnea with any activity at all. He did not have overt chest pressure or pain. When he was evaluated in the emergency department he had an indeterminate troponin, so he was treated as a non-STEMI. Echocardiogram showed severe aortic stenosis with severe calcification of the leaflets. Cardiac catheterization showed significant left anterior descending stenosis. He was therefore recommended for consideration of coronary artery bypass grafting with aortic valve replacement and transferred to this facility today. FUNCTIONAL STATUS: Independent PAST MEDICAL HISTORY Diagnosis Date - Cerebrovascular disease 10/22/2018 - High blood pressure - HLD (hyperlipidemia) - Stroke (HCC) PAST SURGICAL HISTORY Procedure Laterality Date - CARDIAC CATH 10/21/2018 [facility] - TONSILLECTOMY AND ADENOIDECTOMY HX FAMILY HISTORY: No significant family history known to patient Social History Tobacco Use - Smoking status: Never Smoker - Smokeless tobacco: Never Used Substance Use Topics - Alcohol use: No - Drug use: No MEDICATIONS Please see reconciled medication list in [employer] for details on home medications. ALLERGIES No Known Allergies COMPLETE REVIEW OF SYSTEMS: PAIN ASSESSMENT: Negative for pain, history of chronic pain, or current treatment for a chronic pain condition. GENERAL: No weight loss, malaise or fevers HEENT: Negative for frequent or significant headaches, No changes in hearing or vision, no nose bleeds or other nasal problems NECK: Negative for lumps, goiter, pain and significant neck swelling RESPIRATORY: See HPI CARDIOVASCULAR: See HPI GI: No nausea, vomiting, or diarrhea : No history of dysuria, frequency or incontinence MUSCULOSKELETAL: Negative for joint pain or swelling, back pain or muscle pain SKIN: Negative for lesions, rash, and itching PSYCH: Negative for sleep disturbance, mood disorder and recent psychosocial stressors HEMATOLOGY/LYMPHOLOGY: Negative for prolonged bleeding, bruising easily or swollen nodes ENDOCRINE: Negative for cold or heat intolerance, polyuria, polydipsia and goiter NEURO: No history of headaches, syncope, paralysis, seizures or tremors PHYSICAL EXAM: GENERAL: Alert, no distress, cooperative, Obese SKIN: Skin color, texture, turgor normal. No rashes or lesions. HEAD/SINUSES: No significant findings EYES: PERRLA, EOMI OROPHARYNX: Lips, mucosa, and tongue normal. Teeth and gums normal. Oropharynx normal. NECK: No jugulovenous distention, No carotid bruits, Carotid pulse normal contour, Supple LUNGS: Lungs clear to auscultation, Good diaphragmatic excursion CARDIAC: Normal S1 and S2; no rubs, murmurs, or gallops ABDOMEN: Abdomen soft, non-tender, BS normal, No masses or organomegaly EXTREMITIES: Extremities normal, no deformities, edema, clubbing or skin discoloration. Good capillary refill., No ulcers NEURO: Gait normal. Reflexes normal and symmetric. Sensation grossly intact, Cranial nerves II-XII intact PULSES: 2+ radial, 2+ carotid Patient Vitals for the past 48 hrs: BP Temp Temp src Pulse Resp SpO2 Height Weight 10/22/18 2237 ? 180.3 cm (5' 11) (!) 140.2 kg (309 lb) 10/22/182031 130/50 37 ?C (98.6 ?F) Temporal Art 68 18 95 % ? ? 10/22/18 1830 158/58 36.6 ?C (97.9 ?F) Oral 76 18 96 % ? ? Body mass index is 43.1 kg/m?. ASSESSMENT AND PLAN Principal Problem: CAD (coronary artery disease) POA: Yes Assessment AND Plan: Significant left anterior descending disease, consideration for bypass grafting. Currently free of symptoms when he has not engaging in any physical activity Active Problems: NSTEMI (non-ST elevated myocardial infarction) (HCC) POA: Yes Assessment AND Plan: Stable, likely demand ischemia in the setting of significant left anterior descending Aortic stenosis POA: Yes Assessment AND Plan: Consideration for aortic valve replacement, consult placed for cardiothoracic surgery Essential hypertension POA: Yes Assessment AND Plan: Controlled Mixed hyperlipidemia POA: Yes Assessment AND Plan: Continue statin Resolved Problems: * No resolved hospital problems. * Advanced Care Planning Purpose of Encounter: Advanced care planning in light of CAD (coronary artery disease) Parties in Attendance: Patient, Dr. Yair Santiago MD Decisional Capacity: Full Code Status: Asbestos Shingle Inspector Spent on Advance Care Plannin minutes Disposition: Home with [facility] Total time 35 minutes during this encounter, including chart review, discussion with nursing staff and/or other providers, documentation, repair order clerk, and [id number] time with patient. Plan of care discussed with: Patient, RN at bedside and Hospitalist from [facility] Prophylaxis: Lovenox 40mg Sub Q Daily Diagnostic tests reviewed for today's visit: Most recent labs and imaging results. Most recent EKG Outside chart from [facility] reviewed. TELEMETRY: NSR SIGNATURE: Yair Santiago MD PATIENT NAME: Harrison Milligan DATE: October 22, 2018 TIME: 7:23 PM PAGER #: Primary Service NIGHT AND WEEKEND COVERAGE: After 7pm please page [phone] Normal [facility] HOSPon 10-22-2018 HOSP Patient:Jurgen Milligan MRN: Height:5' 10.984(1.803 m) Weight:304 lb 3.8 oz (138 kg) Outpatient Medications as of 10/29/18: Hydrochlorothiazide 12.5 mg capsule simvastatin (ZOCOR) 40 mg tablet lisinopril (ZESTRIL, PRINIVIL) 40 mg tablet MULTIVITAMIN ORAL Aspirin 81 mg ORAL Tab Admission/Clinic Administered Medications as of 10/29/18: heparin 3,000 Units in NaCl 0.9% 500 mL irrigation PHENYLephrine 20 mg in NaCl 0.9% 250 mL (NEOSYNEPHRINE) aminocaproic acid 10 g in NaCl 0.9% 250 mL (AMicAR) dexmedetomidine 400 mcg in NaCl 0.9% 100 mL (PRECEDEX) EPINEPHrine 4 mg in NaCl 0.9% 250 mL insulin regular iv infusion 100 units in NaCl 0.9% 100 mL - AK CARD SURG NOMOGRAM nitroglycerin 100 mg in D5W 250 mL NORepinephrine 16 mg in NaCl 0.9% 250 mL (LEVOPHED) PHENYLephrine iv infusion 10 mg in NaCl 0.9% 250 mL (KASI-SYNEPHRINE) dextrose 50 g, insulin regular human 10 Units, potassium chloride 80 mEq, lidocaine 100 mg, magnesium sulfate 4 g in electrolyte-a (PLASMA-LYTE A) 1,000 mL solution dextrose 25 g, insulin regular human 5 Units, potassium chloride 20 mEq, lidocaine 50 mg, magnesium sulfate 2 g in electrolyte-a (PLASMA-LYTE A) 500 mL solution vancomycin iv piggyback 1 g in D5W 200 mL (VANCOCIN) ceFAZolin 3 g in D5W 100 mL (ANCEF) lisinopril 2.5 mg tab(s) perflutren lipid microspheres 1.1 mg/mL 1.3 mL injection (DEFINITY) ipratropium-albuterol 3 mL nebulizer solution (DUONEB) aspirin, enteric coated 81 mg tab(s) atorvastatin 20 mg tab(s) (LIPITOR) carvedilol 3.125 mg tab(s) (COREG) NaCl 0.9% 3-5 mL NaCl 0.9% 2-10 mL magnesium hydroxide 400 mg/5 mL 30 mL (MOM) docusate sodium 100 mg cap(s) (COLACE) acetaminophen 650 mg tab(s) (TYLENOL) melatonin 6 mg tab(s) morphine 4 mg injection nitroglycerin sublingual 0.4 mg tab(s) (NITROQUICK) ondansetron (PF) 4 mg injection (ZOFRAN) oxyCODONE-acetaminophen 5-325 mg 1 tablet (PERCOCET) polyvinyl alcohol-povidone 1.4-0.6 % 1 Drop (REFRESH) prochlorperazine 5 mg injection (COMPAZINE) saliva substitute combo no.9 15 mL (BIOTENE mouthwash) sodium chloride 0.65 % 2 Crooks (AYR, OCEAN) Lip Protectant with Sunscreen SPF 15 1 application Stick (Blistex) albuterol 2.5 mg /3 mL (0.083 %) 2.5 mg (PROVENTIL) aluminum-magnesium hydroxide-simethicone 200-200-20 mg/5 mL 30 mL (MAALOX,MYLANTA,MAG-AL PLUS) benzocaine-menthol 1 Lozenge (CEPACOL) diphenhydrAMINE 25 mg (BENADRYL) guaiFENesin-dextromethor mcfarland 100-10 mg/5 mL 10 mL oral liquid (ROBITUSSIN DM) hydrALAZINE 25 mg tab(s) (APRESOLINE) Problem List: Ataxia S/P CVA [I69.993] Essential hypertension [I10] Mixed hyperlipidemia [E78.2] History of stroke [Z86.73] BMI 40.0-44.9, adult (HCC) [Z68.41] CAD (coronary artery disease) [I25.10] NSTEMI (non-ST elevated myocardial infarction) (HCC) [I21.4] Cerebrovascular disease [I67.9] Aortic stenosis [I35.0] Allergies: No Known Allergies Date Verified:10/29/18 Lab Values Lab Value Units Date High Low POTA* 4.6 mEq/L 10/28/2018 5.1 3.5 PEG* 43.7 % 10/27/2018 51.0 40.1 Progress Notes ([facility]): Pari Haile Ma 10/22/2018 2:32 PM Addendum Received report from [facility] ER 10/18/18 for shortness of breath, CT Brain without contrast and cxr, and cardiac cath Pari Haile Ma Previous Version Progress Notes (): Yair Santiago MD 10/22/2018 11:35 PM Signed DEPARTMENT OF HOSPITAL MEDICINE [facility] HISTORY AND PHYSICAL EXAMINATION SERVICE DATE: 10/22/2018 7:23 PM PRIMARY CARE PHYSICIAN: Latonia Yarbrough MD CHIEF COMPLAINT: Dyspnea with exertion HPI: This is a 78 year old male who presents as an inpatient transfer from [facility]. He presented there with worsening dyspnea with exertion, reaching the point of dyspnea with any activity at all. He did not have overt chest pressure or pain. When he was evaluated in the emergency department he had an indeterminate troponin, so he was treated as a non-STEMI. Echocardiogram showed severe aortic stenosis with severe calcification of the leaflets. Cardiac catheterization showed significant left anterior descending stenosis. He was therefore recommended for consideration of coronary artery bypass grafting with aortic valve replacement and transferred to this facility today. FUNCTIONAL STATUS: Independent PAST MEDICAL HISTORY Diagnosis Date - Cerebrovascular disease 10/22/2018 - High blood pressure - HLD (hyperlipidemia) - Stroke (HCC) PAST SURGICAL HISTORY Procedure Laterality Date - CARDIAC CATH 10/21/2018 [facility] - TONSILLECTOMY AND ADENOIDECTOMY HX FAMILY HISTORY: No significant family history known to patient Social History Tobacco Use - Smoking status: Never Smoker - Smokeless tobacco: Never Used Substance Use Topics - Alcohol use: No - Drug use: No MEDICATIONS Please see reconciled medication list in [employer] for details on home medications. ALLERGIES No Known Allergies COMPLETE REVIEW OF SYSTEMS: PAIN ASSESSMENT: Negative for pain, history of chronic pain, or current treatment for a chronic pain condition. GENERAL: No weight loss, malaise or fevers HEENT: Negative for frequent or significant headaches, No changes in hearing or vision, no nose bleeds or other nasal problems NECK: Negative for lumps, goiter, pain and significant neck swelling RESPIRATORY: See HPI CARDIOVASCULAR: See HPI GI: No nausea, vomiting, or diarrhea : No history of dysuria, frequency or incontinence MUSCULOSKELETAL: Negative for joint pain or swelling, back pain or muscle pain SKIN: Negative for lesions, rash, and itching PSYCH: Negative for sleep disturbance, mood disorder and recent psychosocial stressors HEMATOLOGY/LYMPHOLOGY: Negative for prolonged bleeding, bruising easily or swollen nodes ENDOCRINE: Negative for cold or heat intolerance, polyuria, polydipsia and goiter NEURO: No history of headaches, syncope, paralysis, seizures or tremors PHYSICAL EXAM: GENERAL: Alert, no distress, cooperative, Obese SKIN: Skin color, texture, turgor normal. No rashes or lesions. HEAD/SINUSES: No significant findings EYES: PERRLA, EOMI OROPHARYNX: Lips, mucosa, and tongue normal. Teeth and gums normal. Oropharynx normal. NECK: No jugulovenous distention, No carotid bruits, Carotid pulse normal contour, Supple LUNGS: Lungs clear to auscultation, Good diaphragmatic excursion CARDIAC: Normal S1 and S2; no rubs, murmurs, or gallops ABDOMEN: Abdomen soft, non-tender, BS normal, No masses or organomegaly EXTREMITIES: Extremities normal, no deformities, edema, clubbing or skin discoloration. Good capillary refill., No ulcers NEURO: Gait normal. Reflexes normal and symmetric. Sensation grossly intact, Cranial nerves II-XII intact PULSES: 2+ radial, 2+ carotid Patient Vitals for the past 48 hrs: BP Temp Temp src Pulse Resp SpO2 Height Weight 10/22/18 2237 ? 180.3 cm (5' 11) (!) 140.2 kg (309 lb) 10/22/182031 130/50 37 ?C (98.6 ?F) Temporal Art 68 18 95 % ? ? 10/22/181829 158/58 36.6 ?C (97.9 ?F) Oral 76 18 96 % ? ? Body mass index is 43.1 kg/m?. ASSESSMENT AND PLAN Principal Problem: CAD (coronary artery disease) POA: Yes Assessment AND Plan: Significant left anterior descending disease, consideration for bypass grafting. Currently free of symptoms when he has not engaging in any physical activity Active Problems: NSTEMI (non-ST elevated myocardial infarction) (HCC) POA: Yes Assessment AND Plan: Stable, likely demand ischemia in the setting of significant left anterior descending Aortic stenosis POA: Yes Assessment AND Plan: Consideration for aortic valve replacement, consult placed for cardiothoracic surgery Essential hypertension POA: Yes Assessment AND Plan: Controlled Mixed hyperlipidemia POA: Yes Assessment AND Plan: Continue statin Resolved Problems: * No resolved hospital problems. * Advanced Care Planning Purpose of Encounter: Advanced care planning in light of CAD (coronary artery disease) Parties in Attendance: Patient, Dr. 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 Plan of care discussed with: Patient, RN at bedside and Hospitalist from [facility] Prophylaxis: Lovenox 40mg Sub Q Daily Diagnostic tests reviewed for today's visit: Most recent labs and imaging results. Most recent EKG Outside chart from [facility] reviewed. TELEMETRY: NSR SIGNATURE: Yair Santiago MD PATIENT NAME: Harrison Milligan DATE: October 22, 2018 TIME: 7:23 PM PAGER #: Primary Service NIGHT AND WEEKEND COVERAGE: After 7pm please page [phone] Scott Hemls MD 10/28/2018 6:28 PM Addendum CARDIOTHORACIC SURGERY CONSULT / HANDP SERVICE DATE: 10/23/2018 SERVICE TIME: 8:42 AM Subjective PRIMARY SERVICE: Cardiothoracic Surgery CHIEF COMPLAINT: Worsening SOB and chest pain HPI: This is a 78 year old male transferred from [facility] for surgical evaluation of combined aortic valve replacement and bypass surgery. Patient presented to [facility] 10/18/2018 with progressively worsening of shortness of breath with minimal exertion, chest discomfort, confusion, and expressive aphasia. During the emergency room workup, his creatinine was found 1.48, troponin was 0.554, chest x-ray revealed widened mediastinum. CT brain and MRI without contrast showed no evidence of acute or subacute ischemic infarct. His EKG was unremarkable. He was ruled in for non-ST elevation myocardial infarction as his troponin continued to uptrend and peaked at 1.41 the following day. Cardiac workup including heart cath, Echo and KOKI suggested coronary artery disease with 50% left main and 70% LAD lesion; severe aortic valve stenosis. Patient reports ongoing shortness of breath for approximately a year now with progressive worsening within the week, even with minimal exertion. He admits chest discomfort, described as tight, pressure like chest pain, radiating down to right arm frequently. Both chest discomfort and shortness of breath resolved with rest. Patient also reports some lightheadedness and episodes of dizzy spell occasionally. He denies diaphoresis, N/V, chest palpitation. He also reports positive of orthopnea, he chronically sleeps in the chair or with his head of the bed elevated at night due to shortness of breath or dyspnea. He denies leg edema, however, he reports constant tightness in both legs chronically. He denies syncope or near syncope, denies arrhythmia. 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 HC 10/21: LM : 50% calcification, 50% stenosis; LAD: Long 70% stenosis with distal mild luminal irregularities; CX: Mild luminal irregularities less than 30%; RCA: Mild luminal irregularities. Severe aortic valve calcification. ECHO 10/19/2018: Normal LV size with severe concentric LVH. Normal LV systolic function with EF 60%. Stage I DD. No regional WMA noted. Peak aortic valve gradient 102 mmHg, mean aortic valve gradient 64 mmHg. severe aortic stenosis. Calculated aortic valve area is 0.88 cm?. KOKI 10/22/18: No study report hand, per Dr. Kebede's note: Severe aortic stenosis as calcification and mild mitral regurgitation. Ejection fraction is noted to be borderline. 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 Patient is Able to Perform the Following Physical Activity: Walk indoors, such as around the house (1.75 METs) Do light work around the house, such as dusting or washing dishes (2.70 METs) Take care of self; that is eating, dressing, bathing, using the toilet (2.75 METs) Patient has the following medical comorbidities which might affect the perioperative course: - CAD of the [place] vessel. No interventions. New finding, no past medical issue of CAD known to the patient. - CKD, Stage 1, due to unknown cause. - Hypertension, well controlled. - Patient is morbidly obese related to excessive caloric intake and Sedentary lifestyle. Body mass index is 43.1 kg/m?. - History of TIA. PAST MEDICAL HISTORY Diagnosis Date - Cerebrovascular disease 10/22/2018 - High blood pressure - HLD (hyperlipidemia) - Stroke (HCC) PAST SURGICAL HISTORY Procedure Laterality Date - CARDIAC CATH 10/21/2018 [facility] - TONSILLECTOMY AND ADENOIDECTOMY HX FAMILY HISTORY Problem Relation Age of Onset - Diabetes Father - Thyroid Sister - Cancer Mother thyroid - Diabetes Mother - Hypertension Mother Social History Tobacco Use - Smoking status: Never Smoker - Smokeless tobacco: Never Used Substance Use Topics - Alcohol use: No - Drug use: No Medications Prior to Admission: Hydrochlorothiazide 12.5 mg capsule Take 1 capsule by mouth once daily. Disp: 90 capsule Rfl: 3 Taking simvastatin (ZOCOR) 40 mg tablet Take 1 tablet by mouth daily at bedtime. Disp: 90 tablet Rfl: 3 Taking lisinopril (ZESTRIL, PRINIVIL) 40 mg tablet Take 1 tablet by mouth once daily. Disp: 90 tablet Rfl: 3 Taking MULTIVITAMIN ORAL Take by mouth. Disp: Rfl: Taking Aspirin 81 mg ORAL Tab Take 81 mg by mouth. Disp: Rfl: Taking Hydrochlorothiazide 12.5 mg capsule Take 1 capsule by mouth once daily. simvastatin (ZOCOR) 40 mg tablet Take 1 tablet by mouth daily at bedtime. lisinopril (ZESTRIL, PRINIVIL) 40 mg tablet Take 1 tablet by mouth once daily. MULTIVITAMIN ORAL Take by mouth. Aspirin 81 mg ORAL Tab Take 81 mg by mouth. ALLERGIES No Known Allergies REVIEW OF SYSTEMS: PAIN ASSESSMENT: Negative for pain, history of chronic pain, or current treatment for a chronic pain condition. GENERAL: No weight loss, malaise or fevers NECK: Negative for lumps, goiter, pain and significant neck swelling RESPIRATORY: Positive for shortness of breath on exertion ., shortness of breath limiting daily activity ., See HPI CARDIOVASCULAR: Positive for chest pain Chest discomfort chest pain on exertion Frequently leg swelling Tightness chronically paroxysmal nocturnal dyspnea Sleep in the chair or with head of the bed elevated at night orthopnea Yes claudication No, but has cold feet frequently at night GI: Negative for abdominal discomfort, blood in stools or black stools or change in bowel habits and Positive for Has abdominal hernia : No history of dysuria, frequency or incontinence MUSCULOSKELETAL: Negative for joint pain or swelling, back pain or muscle pain. SKIN: Negative for lesions, rash, and itching. PSYCH: Negative for sleep disturbance, mood disorder and recent psychosocial stressors. HEMATOLOGY/LYMPHOLOGY Negative for prolonged bleeding, bruising easily or swollen nodes. ENDOCRINE: Negative for cold or heat intolerance, polyuria, polydipsia and goiter. NEURO: No history of headaches, syncope, paralysis, seizures or tremors See HPI Objective PHYSICAL EXAM: BP 109/53 Pulse 72 Temp 37 ?C (98.6 ?F) (Temporal Artery) Resp 18 Ht 180.3 cm (5' 11) Wt (!) 140.2 kg (309 lb) SpO2 96% BMI 43.10 kg/m? Body surface area is 2.65 meters squared. STS RISK CALCULATOR: 5.494% (RFs: Age, obesity, CVA) General Appearance: obese and no distress Skin: warm, dry and Brownish discoloration bilateral lower leg Lungs: clear and respiratory effort: normal Heart: regular rhythm, S1, S2 normal and 4/6 crescendo decrescendo murmur noted best heard at 2nd LEFT ICS, with referring murmur louder on the left ICA Peripheral Vascular/Arteries: pulses intact, dorsalis pedis +2 and radial +2 Abdomen: soft, non-tender and bowel sounds present Genitourinary: voiding without difficulty Musculoskeletal: no deformities Neurologic/Psychiatric: oriented to time, place and person and steady gait Extremities: edema: no, Brownish discoloration noted bilateral lower extremity, ? Venous insufficiency. and . Lines, Drains, and Airways Line Peripheral 10/21/18 0700 Admission to Hospital Short Right Wrist 22 Gauge 2 days @LDAASSESS(2::::8:)@ DATA: Diagnostic tests reviewed for today's visit: All documents below are transcribed from [facility] records: HC 10/21: LM : 50% calcification, 50% stenosis; LAD: Long 70% stenosis with distal mild luminal irregularities; CX: Mild luminal irregularities less than 30%; RCA: Mild luminal irregularities. Severe aortic valve calcification. ECHO 10/19/2018: Normal LV size with severe concentric LVH. Normal LV systolic function with EF 60%. Stage I DD. No regional WMA noted. Peak aortic valve gradient 102 mmHg, mean aortic valve gradient 64 mmHg. severe aortic stenosis. Calculated aortic valve area is 0.88 cm?. KOKI 10/22/18: No study report hand, per Dr. Kebede's note: Severe aortic stenosis as calcification and mild mitral regurgitation. Ejection fraction is noted to be borderline. Chest X-RAY 1 view 10/18/18: No acute cardiopulmonary process. Normal size heart. Normal mediastinum and hilar. Normal visualized pulmonary arteries. There is arthrosclerotic calcification of aortic arch with Tortuosity. Brain/head without contrast 10/19/18: No evidence of an acute intracranial abnormality Mild bilateral periventricular and subcortical white matter chronic small vessel disease with age appropriate cerebral atrophy CTA chest 10/19/2018: 1. No demonstrated pulmonary embolism or arterial dissection. 2. The lungs are underexpanded, and there is crowding. Irregular subsegmental atelectasis or scarring also seen in the posterolateral basilar left lower lobe. 3. The heart is enlarged. There is calcification of mitral valve annulus and aortic valve leaflets. Arthrosclerotic vascular calcification are also present. 4. Mildly lobulated and heterogenic thyroid gland with occasional coarse calcifications. 5.diffuse degenerative changes of the spine. Minor anterior wedging T7-T9 with exaggerated dorsal kyphosis. A mild thoracic scoliosis also present. MRI brain without contrast 10/20/18: 1. No MRI evidence of acute or subacute ischemic infarct. 2. Chronic white matter ischemic changes in both cerebral hemispheres 3. Old linear cystic infarcts in the right inferior cerebellar hemisphere ECHO 03/21/2011: LEFT VENTRICLE ? The left ventricle is normal in size. ? There is mild concentric left ventricular hypertrophy. ? Left ventricular systolic function is normal. ? Baseline left ventricular diastolic function is consistent with abnormal ? relaxation (stage 1). LVOT gradient at rest of 10mmHg. 19mmHg with valsalva. ? ? No significant LVOT obstruction. ? LEFT ATRIUM ? The left atrial cavity is normal. The left atrial cavity area is 19cm2. ? RIGHT ATRIUM ? The right atrial cavity is normal. The right atrial cavity area is 20cm2. ? MITRAL VALVE ? There is mild mitral annular calcification observed posterior. There is no ? ? ? mitral stenosis. There is trivial mitral valve regurgitation. ? TRICUSPID VALVE ? There is no tricuspid stenosis. There is trivial tricuspid valve regurgitation. ? AORTIC VALVE ? There is mild aortic valve stenosis. Vmax 2.0 m/s. There is no aortic valve ? ? regurgitation. Tricuspid aortic valve. There is mild diffuse thickening. The ? ? peak gradient is 16 mmHg. The mean gradient is 8 mmHg. The aortic VTI is 33.5 ? cm. The mean velocity in the aortic valve is 124.5 cm/s. ? PULMONIC VALVE ? The pulmonic valve is normal. ? AORTA ? Measurements - Sinus 3.4 cm. Mid ascending aorta 3.8 cm. ? INTERATRIAL SEPTUM ? The interatrial septum is normal. ? PERICARDIUM ? The pericardium is normal. ? CONCLUSIONS: ? - Technically difficult exam due to body habitus with poor image quality. ? ? ? - Exam indication: Syncope / CVA ? - The left ventricle is normal in size. There is mild concentric left ? ventricular hypertrophy. Left ventricular systolic function is normal. EF = 55 ? 5% (visual est.) ? - Stage 1 diastolic dysfunction. ? - Mild mitral annular calcification with trivial MR. ? - Trivial TR. Pulmonary artery pressure is inferred to be low. ? - Mild aortic stenosis with no AI. No significant stenosis. ? - Unable to use saline contrast to assess IAS, due to poor image quality. ? ? ? - There is no previous echo for comparison. ? Carotid US 03/10/2011: IMPRESSION: RIGHT: 1. Moderate, calcific plaque in the bulb and proximal internal carotid artery was consistent with <50% stenosis by flow velocity criteria. ? 2. ?Normal ?flow characteristics in the external carotid artery. 3. ?Normal vertebral artery flow characteristics. LEFT: 1. Moderate, heterogeneous, shadowing plaque in the bulb and proximal internal carotid artery was consistent with <50% stenosis by flow velocity criteria. ?The Internal carotid artery peak flow velocity may be underestimated due to shadowing. ? 2. ?Normal ?flow characteristics in the external carotid artery. 3. ?Normal vertebral artery flow characteristics. No prior study available for comparison.? Recent Labs 10/22/18 2045 RBC 4.96 WBC 9.03 HB 15.6 HCT 44.8 PLT 148 INR 1.05 NA 138 K 3.9 CHLOR 108* CO2 25 BUN 21* CREAT 1.13 GLUC 105* CA 8.7 MG 2.1 P 3.7 ANION 9 Assessment/Plan Principal Problem: CAD (coronary artery disease) POA: Yes -Currently chest pain-free -Review HC report per the WC: Coronary artery disease with 50% left main -Agree with : ASA, statin, patient should resume his beta whit-Coreg 3.125 mg BID -Will review cath films with Dr. Helms to further formulate surgical plans, workup in progress. Films are being uploaded to system. Active Problems: Essential hypertension POA: Yes -VSS -Continue current regimens: Lisinopril 40 daily, hydrochlorothiazide 12.5 daily Mixed hyperlipidemia POA: Yes -Continue statin NSTEMI (non-ST elevated myocardial infarction) (HCC) POA: Yes Aortic stenosis POA: Yes -Reviewed echo report: P/M aortic valve gradient: 102/64 millimeter mercury, JAMAR 0.88 cm? with heavily calcification noted -Appear to be consistent with patient's symptoms of shortness of breath and chest discomfort -Workup in progress, film uploaded, we will possible present patient to valve conference -Request KOKI report from [facility] Tests/Labs Ordered: 1. Urinalysis 2. mrsa 3. 5 meter walk 4. Bedside spirometry 5. ProBNP These findings will be communicated back to the requesting provider electronically. During this patient visit I have spent approximately 45 minutes out of 90 in counseling regarding weight loss, cardiovascular risk reduction, treatment options, medications and test results and coordinating care. SIGNATURE: Flakita Baker APRN.SHERI PATIENT NAME: Harrison Milligan DATE: October 23, 2018 TIME: 8:42 AM PAGER/CONTACT #:[id number] ETX [id number] Attending Note I have personally performed a face to face assessment of the patient and have reviewed the PA/HEAD GAUGE UNIT OPERATOR note. My marmolejo findings include: Assessment/Plan are : 78 year old man transferred from [facility] after admitted for NSTEMi complicated by acute on chronic diastolic CHF, found to have severe , left main and LAD lesions,. with low normal LV function; in setting of HTN, HLD, morbid obesity, previous CVA with minimal residual. Recommend combined CABG and AVR with a bioprosthesis. The risks, benefits, and anticipated outcomes of the procedure; the risks and benefits of the alternatives to the procedure; and the roles and tasks of the personnel to be involved were discussed with the patient and he consents to the procedure and agrees to proceed. OR next week to allow plavix washout. Preop eval as outlined. Scott Helms MD Other additions or changes: None Signature: Scott Helms MD Date: 10/28/2018 Time: 6:24 PM Previous Version Rolo Hyatt MD 10/23/2018 1:29 PM Signed INPATIENT PROGRESS NOTE CHIEF COMPLAINT: WOLF INTERVAL HPI: No new issues. Pt tf from [facility] for CABg and AVR. Playing cards with family members. Denies CP/SOB PHYSICAL EXAM: BP 127/43 Pulse 74 Temp (Src) 98.1 (Oral) Resp 18 Ht 5' 11 (1.80m) Wt 309 lb (140.2kg) SpO2 95% BMI 43.12 kg/(m2). GENERAL: Alert, no distress, cooperative, [place] LUNGS: Lungs clear to auscultation, Good diaphragmatic excursion CARDIAC: RRR ABDOMEN: Abdomen soft, non-tender, BS normal, No masses or organomegaly EXTREMITIES: no edema DATA: Diagnostic tests reviewed for today's visit: CBC, Coags, BMP, Mg, Phos Recent Labs 10/22/18 2045 WBC 9.03 HB 15.6 HCT 44.8 PLT 148 INR 1.05 NA 138 K 3.9 CHLOR 108* CO2 25 BUN 21* CREAT 1.13 GLUC 105* CA 8.7 MG 2.1 P 3.7 Assessment/Plan # CAD with LAD stenosis- CTS consulted for possible single vessel CABg # severe - again CTS for possible AVR # HTN stable Await CTS input SIGNATURE: Rolo Hyatt MD PATIENT NAME: Harrison Milligan DATE: October 23, 2018 TIME: 1:26 PM PAGER: Flakita Baker APRN.CNP, APRN.CNP 10/27/2018 9:10 AM Signed [facility] Surgery Pre-Op Open Heart Check List Patient Info: Harrison Milligan 1940 78 year old Patient has no known allergies. ? HPI: This is a 78 year old male transferred from [facility] for surgical evaluation of combined aortic valve replacement and bypass surgery. Patient presented to [facility] 10/18/2018 with progressively worsening of shortness of breath with minimal exertion, chest discomfort, confusion, and expressive aphasia. During the emergency room workup, his creatinine was found 1.48, troponin was 0.554, chest x-ray revealed widened mediastinum. CT brain and MRI without contrast showed no evidence of acute or subacute ischemic infarct. His EKG was unremarkable. He was ruled in for non-ST elevation myocardial infarction as his troponin continued to uptrend and peaked at 1.41 the following day. Cardiac workup including heart cath, Echo and KOKI suggested coronary artery disease with 50% left main and 70% LAD lesion; severe aortic valve stenosis. ? Patient reports ongoing shortness of breath for approximately a year now with progressive worsening within the week, even with minimal exertion. He admits chest discomfort, described as tight, pressure like chest pain, radiating down to right arm frequently. Both chest discomfort and shortness of breath resolved with rest. Patient also reports some lightheadedness and episodes of dizzy spell occasionally. He denies diaphoresis, N/V, chest palpitation. He also reports positive of orthopnea, he chronically sleeps in the chair or with his head of the bed elevated at night due to shortness of breath or dyspnea. He denies leg edema, however, he reports constant tightness in both legs chronically. He denies syncope or near syncope, denies arrhythmia. 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 Last set of vitals: BP (!) 127/43 Pulse 74 Temp 36.7 ?C (98.1 ?F) (Oral) Resp 18 Ht 180.3 cm (5' 11) Wt (!) 140.2 kg (309 lb) SpO2 95% BMI 43.10 kg/m? Wt: 140.8 kg (310 lb 6.4 oz) BMI: 43.29 kg/(m2) Procedure: CABG+/-AVR Diagnosis: , CAD Date of Procedure: 10/29/2018 STS Risk Score: 5.494% (RFs: Age, obesity, CVA) CARE TEAM: Cardiac Surgeon: Dr. Helms Carpet Cutter: Dr. Kebede PCP: Dr. Yarbrough Other Providers: Dr. Oglesby-Derm; Dr. Stevenson-Labor And Delivery Nurse; Pre-Op Testing: LABS: No results found for: TROPT Recent Labs 10/22/182044 RBC 4.96 WBC 9.03 HB 15.6 HCT 44.8 PLT 148 INR 1.05 NA 138 K 3.9 CHLOR 108* CO2 25 BUN 21* CREAT 1.13 GLUC 105* CA 8.7 MG 2.1 P 3.7 ANION 9 HGB (g/dL) Date Value 10/22/2018 15.6 Hematocrit (%) Date Value 10/22/2018 44.8 WBC (thou/cmm) Date Value 10/22/2018 9.03 Platelet Count (thou/cmm) Date Value 10/22/2018 148 Chemistry Glucose (mg/dL) Date Value 10/22/2018 105 Potassium (mEq/L) Date Value 10/22/2018 3.9 Sodium (mEq/L) Date Value 10/22/2018 138 Chloride (mEq/L) Date Value 10/22/2018 108 CO2 (mEq/L) Date Value 10/22/2018 25 Creatinine (mg/dL) Date Value 10/22/2018 1.13 BUN (mg/dL) Date Value 10/22/2018 21 Anion Gap (no units) Date Value 10/22/2018 9 Calcium (mg/dL) Date Value 10/22/2018 8.7 Protein, Total (g/dL) Date Value 05/09/2018 6.8 Albumin (g/dL) Date Value 05/09/2018 4.1 Bilirubin, Total (mg/dL) Date Value 05/09/2018 0.6 Alkaline Phosphatase (U/L) Date Value 05/09/2018 57 AST (U/L) Date Value 05/09/2018 38 ALT (U/L) Date Value 05/09/2018 27 Coag Recent Labs 10/22/18 2045 INR 1.05 Results for HARRISON MILLIGAN ( ) as of 10/23/2018 13:29 Ref. Range 10/22/2018 20:45 Prothrombin Time Latest Ref Range: 9.7 - 13.0 sec 10.9 INR Latest Ref Range: 0.90 - 1.30 1.05 UA Results for HARRISON MILLIGAN ( ) as of 10/24/2018 12:37 Ref. Range 10/23/2018 15:55 Color Unknown YELLOW Specific [place], Ur Latest Ref Range: 1.005 - 1.030 1.024 pH, Urine Latest Ref Range: 5.0 - 8.0 5.0 Protein, Urine Latest Ref Range: Negative mg/dL NEGATIVE Glucose, Urine Latest Ref Range: Negative mg/dL NEGATIVE Ketones, Urine Latest Ref Range: Negative mg/dL NEGATIVE Bilirubin, Urine Latest Ref Range: Negative NEGATIVE Urobilinogen, Urine Latest Ref Range: 0.0 - 1.0 EU/dL 1.0 RBC, Urine Latest Ref Range: 0.0 - 5.0 /hpf 1.0 EP Cells Urine Latest Ref Range: 0.0 - 5.0 /hpf 0.2 Hemoglobin, Urine Latest Ref Range: Negative NEGATIVE Bacteria, Urine Latest Ref Range: None NONE Hyaline Cast Latest Ref Range: 0.0 - 1.0 /lpf 0.7 Leukocytes Esterase Latest Ref Range: Negative NEGATIVE Nitrite Reflex Latest Ref Range: Negative NEGATIVE Urine Appearance Unknown CLEAR WBC, REFLEX Latest Ref Range: 0.00 - 5.00 /hpf 0.40 Type AND Screen: Results for HARRISON MILLIGAN ( ) as of 10/27/2018 09:10 Ref. Range 10/26/2018 09:25 ABO Group Unknown O RH Type Unknown Positive Antibody Screen Unknown NEGATIVE Blood Bank Comment Unknown See Below Xmatch Unit 1 Unknown see below Xmatch Unit 2 Unknown see below RBC Cross match: 2 UNITS MRSA Screen: NEGATIVE, TREATED HGA1C Lab Results Component Value Date HBA1C 6.1 05/09/2018 HBA1C 5.9 05/15/2017 HBA1C 6.2 04/04/2016 PFT/ABG: FEVI: 63% DLCO: n/a ABG: n/a Recent Labs 10/22/182044 CO2 25 . IMAGING/PROCEDURES CXR: Outside hospital Findings: The patient appears to be slightly rotated to the right. There is no focal consolidation. Normal heart size. Normal mediastinum and hilum. Normal visualized pulmonary arteries. There is atherosclerotic calcification of the aortic arch with tortuosity. Air diffuse degenerative changes of the visualized thoracic spine. Normal visualized ribs, clavicles, and shoulders. There is no demonstrated abnormality of the visualized soft tissue structure of the upper abdomen Cardiac Catheterization: Dominance: Right dominant Left heart assessment: Normal LV wall motion Normal LV systolic function, EF 60% Left main: 50% calcification 50% stenosis LAD: Long 70% stenosis Distal LAD: Mild luminal irregularities Circumflex artery: Mild luminal irregularities less than 30% Right coronary artery: Mild luminal irregularities Severe aortic valve calcification. 2D Echo: EF: 60% Left ventricle: Normal LV size. Severe concentric left ventricular hypertrophy hypertrophy. Left ventricular systolic function is normal. The estimated ejection fraction is 60%. Stage I diastolic dysfunction. No regional wall motion abnormalities noted. Right ventricle: The right ventricle is not well visualized normal systolic function. Atria: Normal left atrium. Normal right atrium. Mitral valve: Mitral valve not well visualized. Tricuspid valve: Tricuspid valve is not well visualized. Aortic valve: Aortic valve is not well visualized. Peak aortic valve gradient 102 mmHg, mean aortic valve gradient 64 mm per mercury. Severe aortic stenosis calculated aortic valve area continuity equation is 0.88 cm?. Pulmonic valve: The pulmonic valve is not well visualized. Great vessels: Normal aortic root. The pulmonary artery is normal in size. Normal inferior vena cava. Pericardium No pericardial effusion KOKI 10/22/2018 Left ventricle: Normal LV size. The estimated ejection fraction is 50%. No regional wall motion abnormalities. There is mild global hypokinesis of the left ventricle. Right ventricle: Normal RV size. Normal systolic function. Atria: Intact atrial septum. The left atrium is moderately enlarged. Normal right atrium Mitral valve: There is mild to moderate annular calcification mild focal mitral valve calcification of the posterior leaflet. Mild to moderate 1-2+ eccentric mitral valvular insufficiency. Tricuspid valve: Normal tricuspid valve Aortic valve: Trisinus/trileaflet aortic valve. Severe focal aortic valve calcification. Moderate aortic stenosis. Severe 4+ aortic valve insufficiency. Pulmonic valve Normal pulmonic valve. Vessels: Mildly dilated aortic root. Normal arch. The pulmonary artery is normal in size. Normal pulmonary veins. Pericardium: No pericardial effusion. 5 Meter Walk Test: 5 Meter Walk Test Completed: Yes Trial 1 # of Seconds: 4.47 Trial 1 Assistive Device: None Trial 2 # of Seconds: 4.12 Trial 2 Assistive Device: None Trial 3 # of Seconds: 4.03 Trial 3 Assistive Device: None OPTIONAL TESTINGS: Carotid U/S: Less than 50% stenosis bilaterally Lower EXT ANNALISE: N/A Palmar Arch: N/A Vein Mapping: N/A Dental Clearance: N.A CT Chest: Impression: 1 no demonstrated pulmonary embolism or arterial dissection. 2 the lungs are underexpanded, and there is crowding. Irregular subsegmental atelectasis or scarring is also seen in the posterior lateral basilar left lower lobe. 3 the heart is enlarged. There is calcification of the mitral valve annulus and the aortic valve leaflets. Atherosclerotic vascular calcifications are also present. There is atherosclerotic calcification of the aortic arch and ascending aortic thoracic aorta 4 mildly lobulated heterogenic rest thyroid gland with occasional coarse calcifications CT BRAIN without contrast Findings: #1 no evidence of acute intracranial abnormality. #2 mild bilateral periventricular and subcortical white matter chronic small vessel disease with age appropriate cerebral atrophy MRI BRAIN #1 no MRI evidence of acute or subacute ischemic infarct. #2 chronic white matter ischemic changes in both cerebral hemispheres. 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 Medications Notes: Blood thinners: Patient is on following blood thinners: Aspirin -Yes, dose 81 mg, stopped No, date:WOLF Beta Whit: Last dose of beta whit taken: DOS Perioperative Transfusion risk STS Risk Factors: Advanced age Yes Preoperative anemia No Non-CABG surgery No Preoperative anticoagulation No Clotting abnormalities No Female gender No Small body habitus No Renal insufficiency No IDDM No Sepsis No Liver disease No Preioperative Wound Healing - Vest recommended Yes (Yes to any one of the below requires a post thorax vest) Risk Factors: Obesity Yes DM No Renal Dx No CLEARANCES NEEDED Pulmonary: yes Hematology: No Nephrology No Vascular surgery no Other No Flakita Baker APRN.EXECUTIVE CREATIVE DIRECTOR Previous Version Chaplain Joe Channeler Insole, Student 10/23/2018 2:41 PM Signed SPIRITUALCARE Spiritual Care Visit- Brief Note Name: Harrison Milligan Date: October 23, 2018 Notes: Field Seismologist saw PT while visiting New Admissions for 10/23/2018. Field Seismologist introduced Spiritual Care Dept. to PT, his and son. PT was concerned about possible upcoming surgery and did not require any services. Field Seismologist provided spiritual presence and comfort. Field Seismologist Signature: Chaplain Joe Channeler Insole To contact the Spiritual Care Department: Please call [phone] or Page the On-Call Field Seismologist at pager [phone] Thank you for the opportunity to be of service. This is an electronically created document. IF PRINTED, PLEASE DO NOT REMOVE FROM THE CHART OR MODIFY PRINTED COPY. Sophy Scott RN, RN 10/23/2018 3:46 PM Signed CARE MANAGEMENT: ASSESSMENT AND DISCHARGE PLAN SERVICE DATE: 10/23/2018 SERVICE TIME: 3:38 PM PRIMARY CARE PHYSICIAN: Latonia Yarbrough MD ADMISSION STATUS: Inpatient Needs Prior to Discharge: Home Care Order;Discharge Prescriptions;Pharmacy Bedside Delivery Pharmacy: [facility] MEDICAL: Patient/Patternator Stated Goals: To return home to life as it was To be cured/healed Health Insurance: MEDICARE A AND B [employer] Health Issues Impacting Discharge Plan: CAD - Needs CABG/AVR Last Admission Date: none Is this Within the Past 30 days? No Advance Directive: Current Advance Directive: None Manager Of Change Attempted to Assist with AD Completion: Yes Action: Education Provided Health Literacy: 1. How often do you need to have someone help you when you read instructions, pamphlets, or other written material from your doctor or pharmacy? Rarely - 2 2. How confident are you filling out medical forms by yourself? Quite a bit - 2 If Patient scores > 3 on either question, the following interventions were put into place: Patient did not score > 3 FUNCTIONAL AND COGNITIVE/BEHAVIORAL PRIOR TO ADMISSION: Baseline Mental Status: Alert AND Oriented, Person, Place , Time and Situation Functional Status: Independent Does Patient Currently Receive Any Community Services or Home Care? None Equipment Prior to Admission: None Has the Patient Been in a Jail Facility in the Past 30 days? No SOCIAL: Living Arrangement: Home Lives With: Spouse Financial Resources: Retired Primary Contact: Extended Emergency Contact Information Primary Emergency Contact: Héctor Milligan Mobile Relation: Son Secondary Emergency Contact: Francisca Milligan Mobile Relation: Spouse Supportive: Yes Other Important Patient Contacts: None Caregiver Assessment: Caregiver is ready, willing and able to meet the patient's needs as recommended by the inter-professional team? No Caregiver Needed Patient's transition needs and plan for meeting these needs: Home with [facility] Does the patient have an acute stroke diagnosis, or has the patient had a stroke during this admission? No Medication Adherence: I am convinced of the importance of my prescription medication: Agree mostly - 0 I worry that my prescription medication will do more harm than good to me Disagree mostly - 0 I feel financially burdened by my [id number] expenses for my prescription medication: Disagree mostly -0 Patient is categorized as low risk < 2 Are you interested in bedside delivery of your medications? Yes Food Concerns: In the Last Month, Have You had Trouble Getting Food? No trouble getting food During the Last Month, Have You Worried Whether Your Food Would Run Out Before You Had Enough Money to Buy More? No Is the Patient Psychosocially Complex? No ASSESSMENT AND PLAN: Medical Needs: 2 or more chronic diseases Psychosocial Needs: None FREEDOM OF CHOICE EXPLAINED: Financial Disclosure Provided POTENTIAL TRANSITION PLANS Home Home Care From home with spouse. Son lives nextdoor. 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 (+) PCP (+) Rx coverage. Will need AVR/CABG awaiting plan from CVTS. able to stay with patient following surgery at discharge. SIGNATURE: Sophy Scott RN PATIENT NAME: Harrison Milligan DATE: October 23, 2018 TIME: 3:38 PM [id number] Constantino MoraErica 10/24/2018 9:54 AM Signed CARDIAC REHAB 5 METER WALK TEST SERVICE DATE: 10/24/2018 SERVICE TIME: 9:54 AM ASSESSMENT: 5 Meter Walk Test 5 Meter Walk Test Completed: Yes Trial 1 # of Seconds: 4.47 Trial 1 Assistive Device: None Trial 2 # of Seconds: 4.12 Trial 2 Assistive Device: None Trial 3 # of Seconds: 4.03 Trial 3 Assistive Device: None SIGNATURE: Erica Key Marcus PATIENT NAME: Harrison Milligan DATE: October 24, 2018 TIME: 9:54 AM PAGER/CONTACT #: [phone] Rolo Hyatt MD 10/24/2018 10:35 AM Signed INPATIENT PROGRESS NOTE CHIEF COMPLAINT: Dyspnea INTERVAL HPI: Pt denies any new complaints. No CP/SOB PHYSICAL EXAM: BP 105/49 Pulse 63 Temp (Src) 98.1 (Oral) Resp 18 Ht 5' 11 (1.80m) Wt 302 lb 14.4 oz (137.4kg) SpO2 95% BMI 42.26 kg/(m2). GENERAL: Alert, no distress, cooperative LUNGS: Lungs clear to auscultation, Good diaphragmatic excursion CARDIAC: Normal S1 and S2; no rubs, murmurs, or gallops ABDOMEN: Abdomen soft, non-tender, BS normal, No masses or organomegaly EXTREMITIES: no edema DATA: Diagnostic tests reviewed for today's visit: CBC, Coags, BMP, Mg, Phos Recent Labs 10/22/18 2045 WBC 9.03 HB 15.6 HCT 44.8 PLT 148 INR 1.05 NA 138 K 3.9 CHLOR 108* CO2 25 BUN 21* CREAT 1.13 GLUC 105* CA 8.7 MG 2.1 P 3.7 Assessment/Plan ? # CAD with LAD stenosis- CTS consulted for possible single vessel CABg # severe - again CTS for possible AVR # HTN stable # morbid obesity with BMI >40 Noted plans for OR tomorrow per pt SIGNATURE: Rolo Hyatt MD PATIENT NAME: Harrison Milligan DATE: October 24, 2018 TIME: 10:33 AM PAGER: IMAN Zurita 10/24/2018 4:36 PM Signed CARE MANAGEMENT PROGRESS NOTE SERVICE DATE: 10/24/2018 SERVICE TIME: 4:31 PM LOS: 2 days Advance Directive Met with pt per RN request and discussed Advance Directive. Pt expressed understanding of purpose and use of documents. Completed Living Will and DPOAHC. Copy placed in chart and copy taken to Registration. SIGNATURE: Keira IMAN Landaverde PATIENT NAME: Harrison Milligan DATE: October 24, 2018 TIME: 4:31 PM PAGER/CONTACT #: [phone] Flakita Baker APRN.CNP, APRN.CNP 10/26/2018 8:40 AM Addendum CARDIOTHORACIC SURGERY POSTOP PROGRESS NOTE SERVICE DATE: 10/24/2018 SERVICE TIME: 5:21 PM Subjective SURGERY: CABG+AVR DATE OF SURGERY: tentatively 10/29/2018 LOS: 2 HPI: HPI:??This is a 78 year old male transferred from [facility] for surgical evaluation of combined aortic valve replacement and bypass surgery. Patient presented to [facility]?10/18/2018?with progressively worsening of?shortness of breath with minimal exertion, chest discomfort, confusion, and expressive aphasia. During the emergency room workup, his creatinine was found 1.48, troponin was 0.554, chest x-ray revealed widened mediastinum. CT brain and MRI without contrast showed no evidence of acute or subacute ischemic infarct. His EKG was unremarkable. He was ruled in for non-ST elevation myocardial infarction as his troponin continued to uptrend and peaked at 1.41 the following day. Cardiac workup including heart cath, Echo and KOKI suggested coronary artery disease with 50% left main ?and 70% LAD lesion; severe aortic valve stenosis. ? Patient reports ongoing shortness of breath for approximately a year now with progressive worsening within the week, even with minimal exertion. He admits chest discomfort, described as tight, pressure like chest pain, radiating down to right arm frequently. Both chest discomfort and shortness of breath resolved with rest. Patient also reports some lightheadedness and episodes of dizzy spell occasionally. He denies diaphoresis, N/V, chest palpitation. He also reports positive of orthopnea, he chronically sleeps in the chair or with his head of the bed elevated at night due to shortness of breath or dyspnea. He denies leg edema, however, he reports constant tightness in both legs chronically. He denies syncope or near syncope, denies arrhythmia. 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 ? 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 INTERVAL EVENTS / PERTINENT ROS: Medical records requested from [facility] confirmed that patient has received Plavix last dose taken on 10/21/2018 after a Plavix load of 300 mg on 10/20/2018. Continue following up on pre-op work ups. Objective Admission Weight: (!) 140.2 kg (309 lb) BP 116/53 Pulse 60 Temp 37 ?C (98.6 ?F) (Oral) Resp 18 Ht 180.3 cm (5' 11) Wt (!) 137.4 kg (302 lb 14.4 oz) SpO2 97% BMI 42.25 kg/m? Body surface area is 2.62 meters squared. Min/Max/Average Temperature AND Blood Pressure: Temp (24hrs), Av.8 ?C (98.2 ?F), Min:36.6 ?C (97.9 ?F), Max:37 ?C (98.6 ?F) Systolic (24hrs), Av , Min:94 , Max:116 Diastolic (24hrs), Av, Min:45, Max:55 Intake/Output Summary (Last 24 hours) at 10/24/2018 1721 Last data filed at 10/23/2018 2015 Gross per 24 hour Intake 240 ml Output ? Net 240 ml TELEMETRY: normal sinus rhythm PHYSICAL EXAM: General Appearance: well developed and no distress Skin: warm and dry Lungs: clear and respiratory effort: normal Heart: regular rhythm, S1, S2 normal and 4/6 crescendo decrescendo murmur noted best heard at 2nd LEFT ICS, with referring murmur louder on the left ICA2 Peripheral Vascular/Arteries: pulses intact, dorsalis pedis +2 and radial +2 Abdomen: soft, bowel sounds present and no masses Extremities: edema: Trace and venous insufficiency in bilateral lower legs Lines, Drains, and Airways Line Peripheral 10/21/18 0700 Admission to Hospital Short Right Wrist 22 Gauge 3 days DATA: Diagnostic tests reviewed for today's visit: KOKI: Review report from [place] Carotid ultrasound: Reviewed report Recent Labs 10/23/18 1430 10/22/18 2045 RBC -- 4.96 WBC -- 9.03 HB -- 15.6 HCT -- 44.8 PLT -- 148 INR -- 1.05 NA -- 138 K -- 3.9 CHLOR -- 108* CO2 -- 25 BUN -- 21* CREAT -- 1.13 GLUC -- 105* CA -- 8.7 MG -- 2.1 P -- 3.7 ANION -- 9 MRSA No MRSA detected. -- Recent Labs 10/23/18 1555 UPH 5.0 SPGR 1.024 UGLUC NEGATIVE UBILI NEGATIVE UKET NEGATIVE UPROT NEGATIVE Assessment/Plan CAD (coronary artery disease) POA: Yes -Currently chest pain-free -Review HC report per the [facility]: Coronary artery disease with 50% left main -Agree with : ASA, statin, resumed Coreg 3.125 mg BID -Case discussed with Dr. eHlms: Patient is required to undergo Plavix washout 5-7 days, Tentatively OR schedule 10/29. ? Active Problems: Essential hypertension POA: Yes -VSS -Continue current regimens: Lisinopril 40 daily, hydrochlorothiazide 12.5 daily ? Mixed hyperlipidemia POA: Yes -Continue statin ? NSTEMI (non-ST elevated myocardial infarction) (HCC) POA: Yes Aortic stenosis POA: Yes -Reviewed echo report: P/M aortic valve gradient: 102/64 millimeter mercury, JAMAR 0.88 cm? with heavily calcification noted -Appear to be consistent with patient's symptoms of shortness of breath and chest discomfort -Workup in progress, film uploaded Offered the cardiac surgery binder. I went over post-op recovery expectations (ICU and [id number]) with patient. As well as went over briefly with the content from the cardiac surgery book. Reviewed patient's PFT, IS and Duoneb ordered for pre-op lung function optimization. MRSA result reviewed and treatment order reviewed, Questions and concerns are addressed. Patient has no questions at this point. Addendum: Pre-op check list reviewed: missing Type and screen. Communicated with RN to make sure it is done tomorrow for surgery 10/29. Pre-op preparation orders placed, including: NPO, meds(BB+ASA), Lovenox stop time, CHG bath. Blood products ordered x2. Flakita Baker APRN.SHERI Tests/Labs Ordered: 1. None During this patient visit I have spent approximately 30 minutes out of 40 in counseling regarding cardiovascular risk reduction, treatment options pertaining to surgical intervention for CABG +AVR and postop care and education. 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 PT indicated that he is a [employer] from [place]; his divisional merchandising manager has been here to see him and pray for him. PT indicated he had a stroke that was caught through an MRA, survived skin cancer, and will have heart surgery soon. 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 Field Seismologist Signature: Rafa Hatfieldlain Channeler Insole To contact the Spiritual Care Department: Please call [phone] or Page the On-Call Field Seismologist at pager [phone] Thank you for the opportunity to be of service. This is an electronically created document. IF PRINTED, PLEASE DO NOT REMOVE FROM THE CHART OR MODIFY PRINTED COPY. Rolo Hyatt MD 10/25/2018 1:39 PM Signed INPATIENT PROGRESS NOTE CHIEF COMPLAINT: WOLF INTERVAL HPI: no new issues. Plans for CABG tentatively on 10/29. He denies any CP/SOB PHYSICAL EXAM: BP 107/42 Pulse 65 Temp (Src) 98.1 (Oral) Resp 18 Ht 5' 11 (1.80m) Wt 303 lb 1.6 oz (137.5kg) SpO2 98% BMI 42.29 kg/(m2). GENERAL: Alert, no distress, cooperative LUNGS: Lungs clear to auscultation, Good diaphragmatic excursion CARDIAC: Normal S1 and S2; no rubs, murmurs, or gallops ABDOMEN: Abdomen soft, non-tender, BS normal, No masses or organomegaly EXTREMITIES:no edema DATA: Diagnostic tests reviewed for today's visit: CBC, Coags, BMP, Mg, Phos Recent Labs 10/22/18 2045 WBC 9.03 HB 15.6 HCT 44.8 PLT 148 INR 1.05 NA 138 K 3.9 CHLOR 108* CO2 25 BUN 21* CREAT 1.13 GLUC 105* CA 8.7 MG 2.1 P 3.7 Assessment/Plan # CAD with LAD stenosis- CTS consulted for possible single vessel CABg # severe - again CTS for possible AVR # HTN stable # morbid obesity with BMI >40 Noted plans for OR tomorrow per pt ? SIGNATURE: Rolo Hyatt MD PATIENT NAME: Harrison Milligan DATE: October 25, 2018 TIME: 1:37 PM PAGER: Jessa Mcdonald 10/25/2018 2:51 PM Signed CARE MANAGEMENT PROGRESS NOTE SERVICE DATE: 10/25/2018 SERVICE TIME: 1245 LOS: 3 days IM letter given to patient on [id number]. SIGNATURE: Jessa Mcdoanld PATIENT NAME: Harrison Milligan DATE: October 25, 2018 TIME: 2:50 PM PAGER/CONTACT #: [phone] Niki Zamorano APRN.CNP 10/26/2018 5:09 PM Attested -------- Attestation signed by China Lerma at 10/26/2018 7:27 PM (Updated) S: Pt without any complaints of shortness of breath or cough. O: 10/26/18 0928 10/26/18 1302 10/26/18 1344 10/26/18 1500 BP: (!) 98/49 (!) 111/45 Pulse: 62 70 67 Resp: 16 18 18 Temp: 36.4 ?C (97.5 ?F) 36.5 ?C (97.7 ?F) TempSrc: Oral Oral SpO2: 96% 98% Weight: (!) 138.8 kg (306 lb) Height: 180.3 cm (5' 10.98) well-built 78-year-old gentleman sitting on the edge of bed. Pleasant spirits. NAD RRR Lungs: CTA Obese EXT: + pedal edema A/P Agree with nut tapper plan: See ARISCAT score. Pulmonary status currently optimized for surgery. Will follow post op in CVICU. [facility] STAFF PHYSICIAN NOTE OF PERSONAL INVOLVEMENT IN CARE I have reviewed the progress note obtained and documented by the nurse practitioner and I personally participated in the marmolejo components. I have discussed the case and management of the patient's care. The following comments revise or confirm relevant marmolejo components of the note. -------- Pulmonary Consult Note SERVICE DATE: 10/26/2018 SERVICE TIME: 3:38 PM ? REASON FOR ADMISSION: NSTEMI REASON FOR CONSULT: Pre-op pending CABG+AVR, pre-op FEV1 63% HISTORY OF PRESENT ILLNESS: This is a 78 year old male patient with a PMHX of CVA, Ataxia, CAD, HTN. We have been consulted for pending CABG+AVR, pre-op FEV1 63%. Patient was [facility] from [facility] where he presented with worsening shortness of breath , chest pain/discomfort, confusion, and expressive aphasia. During his ED stay at [facility] he was found to have elevated troponin - His EKG was unremarkable. He was ruled in for non-ST elevation myocardial infarction as his troponin continued to uptrend and peaked at 1.41 the following day. Cardiac workup including heart cath, Echo and KOKI suggested coronary artery disease with 50% left main ?and 70% LAD lesion; severe aortic valve stenosis. Patient denies F/C/NS, N/V/D, Hemoptysis, cough, recent sick contacts, recent travel. He states he has had progressive shortness of breath over the last year, especially with activity. He is a life-long non-smoker. He is currently on room air Sitting up on edge of [facility]. Family at bedside and son. REVIEW OF SYSTEMS: GENERAL: Negative for fevers, malaise, chills, sweats, lethargy, change in appetite or weight HEENT: Negative for headaches, hearing/vision changes, nasal bleeding, congestion or rhinorrhea NECK: Negative for lumps, goiter, pain and significant neck swelling NEURO: No history of headaches, syncope, paralysis, seizures or tremors RESPIRATORY: Negative for cough, hemoptysis, wheezing, + shortness of breath over last year CARDIOVASCULAR: Negative for chest pain, leg swelling, or palpitations GI: No nausea, vomiting, diarrhea, heartburn or reflux symptoms : No history of dysuria, frequency or incontinence SKIN: Negative for lesions, rash, and itching MUSCULOSKELETAL: Negative for joint pain or swelling, back pain or muscle pain. ? ? PAST MEDICAL HISTORY PAST MEDICAL HISTORY Diagnosis Date - Cerebrovascular disease 10/22/2018 - High blood pressure - HLD (hyperlipidemia) - Stroke (HCC) PAST SURGICAL HISORY PAST SURGICAL HISTORY Procedure Laterality Date - CARDIAC CATH 10/21/2018 [facility] - TONSILLECTOMY AND ADENOIDECTOMY HX PAST FAMILY HISTORY FAMILY HISTORY Problem Relation Age of Onset - Diabetes Father - Thyroid Sister - Cancer Mother thyroid - Diabetes Mother - Hypertension Mother SOCIAL HISTORY Social History Tobacco Use - Smoking status: Never Smoker - Smokeless tobacco: Never Used Substance Use Topics - Alcohol use: No - Drug use: No 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 Lifelong non-smoker, Denies ETOH use, Denies Illicit drug use. ALLERGIES ALLERGIES No Known Allergies HOME MEDICATIONS: Medications Prior to Admission: Hydrochlorothiazide 12.5 mg capsule Take 1 capsule by mouth once daily. Disp: 90 capsule Rfl: 3 Taking simvastatin (ZOCOR) 40 mg tablet Take 1 tablet by mouth daily at bedtime. Disp: 90 tablet Rfl: 3 Taking lisinopril (ZESTRIL, PRINIVIL) 40 mg tablet Take 1 tablet by mouth once daily. Disp: 90 tablet Rfl: 3 Taking MULTIVITAMIN ORAL Take by mouth. Disp: Rfl: Taking Aspirin 81 mg ORAL Tab Take 81 mg by mouth. Disp: Rfl: Taking HOSPITAL MEDICATIONS: Current Facility-Administered Medications: perflutren lipid microspheres 1.1 mg/mL 1.3 mL injection ([employer]) 1.3 mL INTRAVENOUS DIRECTED PRN Matt Moran ipratropium-albuterol 3 mL nebulizer solution (DUONEB) 3 mL INHALATION TID Flakita (Sheri) APRN. KarlyEXECUTIVE CREATIVE DIRECTOR 3 mL at 10/26/18 1302 Hydrochlorothiazide 12.5 mg 12.5 mg ORAL DAILY Yair Baird Aaronnerson 12.5 mg at 10/26/18 0841 lisinopril 40 mg tab(s) (ZESTRIL, PRINIVIL) 40 mg ORAL DAILY Yair Santiago 40 mg at 10/26/18 0841 aspirin, enteric coated 81 mg tab(s) 81 mg ORAL DAILY Yair Santiago 81 mg at 10/26/18 0841 atorvastatin 20 mg tab(s) (LIPITOR) 20 mg ORAL AT BEDTIME Yair Santiago 20 mg at 10/25/182154 mupirocin 2 % ointment (BACTROBAN) TOPICAL BID Flakita (Sheri) ELOINA Baker carvedilol 3.125 mg tab(s) (COREG) 3.125 mg ORAL BID w MEALS Flakita (Sheri) APRN. KarlyEXECUTIVE CREATIVE DIRECTOR 3.125 mg at 10/26/18 0841 enoxaparin 40 mg injection (LOVENOX) 40 mg SUBCUTANEOUS DAILY Flakita (Sheri) APRN. KarlyEXECUTIVE CREATIVE DIRECTOR 40 mg at 10/26/18 0841 NaCl 0.9% 3-5 mL 3-5 mL INTRAVENOUS q 12 H Yair Santiago 3 mL at 10/26/18 0841 NaCl 0.9% 2-10 mL 2-10 mL INTRAVENOUS q 12 H Yair Santiago 10 mL at 10/26/18 0842 magnesium hydroxide 400 mg/5 mL 30 mL (MOM) 30 mL ORAL DAILY PRN Yair Santiago docusate sodium 100 mg cap(s) (COLACE) 100 mg ORAL BID PRN Yair Santiago acetaminophen 650 mg tab(s) (TYLENOL) 650 mg ORAL q 6 H PRN Yair Santiago melatonin 6 mg tab(s) 6 mg ORAL DAILY (8 PM) Yair Santiago 6 mg at 10/25/18 2155 morphine 4 mg injection 4 mg INTRAVENOUS q 3 H PRN Yair Santiago nitroglycerin sublingual 0.4 mg tab(s) (NITROQUICK) 0.4 mg SUBLINGUAL PRN Yair Santiago ondansetron (PF) 4 mg injection (ZOFRAN) 4 mg INTRAVENOUS q 6 H PRN Yair Santiago oxyCODONE-acetaminophen 5-325 mg 1 tablet (PERCOCET) 1 tablet ORAL q 6 H PRN Yair Santiago polyvinyl alcohol-povidone 1.4-0.6 % 1 Drop (REFRESH) 1 Drop BOTH EYES PRN Yair Santiago prochlorperazine 5 mg injection (COMPAZINE) 5 mg INTRAVENOUS q 4 H PRN Yair Santiago saliva substitute combo no.9 15 mL (BIOTENE mouthwash) 15 mL MUCOUS MEMBRANE (TOPICAL MOUTH AND THROAT) PRN Yair Santiago sodium chloride 0.65 % 2 Crooks (AYR, OCEAN) 2 Crooks EACH NOSTRIL PRN Yair Santiago Lip Protectant with Sunscreen SPF 15 1 application Stick (Blistex) 1 application TOPICAL PRN Yair Santiago albuterol 2.5 mg /3 mL (0.083 %) 2.5 mg (PROVENTIL) 2.5 mg INHALATION q 4 H PRN Yair Santiago aluminum-magnesium hydroxide-simethicone 200-200-20 mg/5 mL 30 mL (MAALOX,MYLANTA,MAG-AL PLUS) 30 mL ORAL q 6 H PRN Yair Santiago benzocaine-menthol 1 Lozenge (CEPACOL) 1 Lozenge MUCOUS MEMBRANE (TOPICAL MOUTH AND THROAT) q 2 H PRN Yair Santiago diphenhydrAMINE 25 mg (BENADRYL) 25 mg ORAL q 4 H PRN Yair Santiago guaiFENesin-dextromethor mcfarland 100-10 mg/5 mL 10 mL oral liquid (ROBITUSSIN DM) 10 mL ORAL q 4 H PRN Yair Santiago hydrALAZINE 25 mg tab(s) (APRESOLINE) 25 mg ORAL q 6 H PRN Yair Santiago 25 mg at 10/23/18 0905 ? LABS ABG: Invalid input(s): [id number] BMP: Glucose (mg/dL) Date Value 10/22/2018 105 Potassium (mEq/L) Date Value 10/22/2018 3.9 Sodium (mEq/L) Date Value 10/22/2018 138 Chloride (mEq/L) Date Value 10/22/2018 108 CO2 (mEq/L) Date Value 10/22/2018 25 Creatinine (mg/dL) Date Value 10/22/2018 1.13 BUN (mg/dL) Date Value 10/22/2018 21 Anion Gap (no units) Date Value 10/22/2018 9 Calcium (mg/dL) Date Value 10/22/2018 8.7 CBC: HGB (g/dL) Date Value 10/22/2018 15.6 Hematocrit (%) Date Value 10/22/2018 44.8 WBC (thou/cmm) Date Value 10/22/2018 9.03 MICRO: RADIOLOGY FILMS: ECHO 10/19/2018: Normal LV size with severe concentric LVH. Normal LV systolic function with EF 60%. Stage I DD. No regional WMA noted. Peak aortic valve gradient 102 mmHg, mean aortic valve gradient 64 mmHg. severe aortic stenosis. Calculated aortic valve area is 0.88 cm?. KOKI 10/22/18: No study report hand, per Dr. Kebede's note: Severe aortic stenosis as calcification and mild mitral regurgitation. Ejection fraction is noted to be borderline. Chest X-RAY 1 view 10/18/18: No acute cardiopulmonary process. Normal size heart. Normal mediastinum and hilar. Normal visualized pulmonary arteries. There is arthrosclerotic calcification of aortic arch with Tortuosity. Brain/head without contrast 10/19/18: No evidence of an acute intracranial abnormality Mild bilateral periventricular and subcortical white matter chronic small vessel disease with age appropriate cerebral atrophy CTA chest 10/19/2018: 1. No demonstrated pulmonary embolism or arterial dissection. 2. The lungs are underexpanded, and there is crowding. Irregular subsegmental atelectasis or scarring also seen in the posterolateral basilar left lower lobe. 3. The heart is enlarged. There is calcification of mitral valve annulus and aortic valve leaflets. Arthrosclerotic vascular calcification are also present. 4. Mildly lobulated and heterogenic thyroid gland with occasional coarse calcifications. 5.diffuse degenerative changes of the spine. Minor anterior wedging T7-T9 with exaggerated dorsal kyphosis. A mild thoracic scoliosis also present. MRI brain without contrast 10/20/18: 1. No MRI evidence of acute or subacute ischemic infarct. 2. Chronic white matter ischemic changes in both cerebral hemispheres 3. 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 There is mild concentric left ventricular hypertrophy. Left ventricular systolic function is normal. Baseline left ventricular diastolic function is consistent with abnormal relaxation (stage 1). LVOT gradient at rest of 10mmHg. 19mmHg with valsalva. No significant LVOT obstruction. LEFT ATRIUM The left atrial cavity is normal. The left atrial cavity area is 19cm2. RIGHT ATRIUM The right atrial cavity is normal. The right atrial cavity area is 20cm2. MITRAL VALVE There is mild mitral annular calcification observed posterior. There is no mitral stenosis. There is trivial mitral valve regurgitation. TRICUSPID VALVE There is no tricuspid stenosis. There is trivial tricuspid valve regurgitation. AORTIC VALVE There is mild aortic valve stenosis. Vmax 2.0 m/s. There is no aortic valve regurgitation. Tricuspid aortic valve. There is mild diffuse thickening. The peak gradient is 16 mmHg. The mean gradient is 8 mmHg. The aortic VTI is 33.5 cm. The mean velocity in the aortic valve is 124.5 cm/s. PULMONIC VALVE The pulmonic valve is normal. AORTA Measurements - Sinus 3.4 cm. Mid ascending aorta 3.8 cm. INTERATRIAL SEPTUM The interatrial septum is normal. PERICARDIUM The pericardium is normal. CONCLUSIONS: - Technically difficult exam due to body habitus with poor image quality. - Exam indication: Syncope / CVA - The left ventricle is normal in size. There is mild concentric left ventricular hypertrophy. Left ventricular systolic function is normal. EF = 55 ? 5% (visual est.) - Stage 1 diastolic dysfunction. - Mild mitral annular calcification with trivial MR. - Trivial TR. Pulmonary artery pressure is inferred to be low. - Mild aortic stenosis with no AI. No significant stenosis. - Unable to use saline contrast to assess IAS, due to poor image quality. - There is no previous echo for comparison. Carotid US 03/10/2011: IMPRESSION: RIGHT: 1. Moderate, calcific plaque in the bulb and proximal internal carotid artery was consistent with <50% stenosis by flow velocity criteria. 2. Normal flow characteristics in the external carotid artery. 3. Normal vertebral artery flow characteristics. LEFT: 1. Moderate, heterogeneous, shadowing plaque in the bulb and proximal internal carotid artery was consistent with <50% stenosis by flow velocity criteria. The Internal carotid artery peak flow velocity may be underestimated due to shadowing. 2. Normal flow characteristics in the external carotid artery. 3. Normal vertebral artery flow characteristics. Most recent PFTs: 10/24/18 FEV1: 63% Most recent PS04/27/11 ?IMPRESSION: 1. Severe obstructive sleep apnea syndrome. Respiratory events were associated with oxygen desaturations (kyler of 88% on room air). 2. Split night study was not initated due to very poor sleep efficiency and the absence of REM sleep was noted. 3. Abnormal sleep architecture likely due to respiratory events and first night effect. VITALS: BP (!) 111/45 Pulse 67 Temp 36.5 ?C (97.7 ?F) (Oral) Resp 18 Ht 180.3 cm (5' 10.98) Wt (!) 138.8 kg (306 lb) SpO2 98% BMI 42.70 kg/m? PHYSICAL EXAM: GENERAL: AAOx3, pleasant, resting in bed, NAD- and Son at bedside NEURO: CN II-XII intact, speech clear HEENT: NCAT, EOMI, no lymphadenopathy appreciated RESPIRATORY: Diminished bilateral bases otherwise CTAB. Respirations are even and unlabored at rest. No wheezing, accessory muscle use, pursed lip breathing or conversational dysnea. Patient is on Room air CARDIOVASCULAR: Normal S1S2, RRR. No murmur, rub, or gallop. No edema. GI: Obese, Soft, nondistended, nontender, bowel sounds present x4 EXTREMITIES: no clubbing or cyanosis. MAEx4 SKIN: warm, dry, intact, no rash ? ASSESSMENT AND PLAN: 1) Dyspnea: stable on room air, continue to monitor SpO2 with VS Keep SpO2 >90%. Add Acapella and IS with instruction for pre-op and post-op. Continue DuoNeb TID. 2) According to ARISCAT risk index scale, the patient has a 42.1% risk of pulmonary complication that may require post-op mechanical ventilation greater than 48 hours (which is not prohibitory): Encourage pre/post op IS and early ambulation. Discussed this with patient. 3) CAD w/ 50% left main: Tentatively scheduled for OR 10/[address] Helms for CABG and +AVR- Medication management per [facility]. 4) NSTEMI: Per cardiovascular 5) Morbid Obesity: BMI 42.70- patient could benefit from weight loss. 6) MMP Per Primary 7) Code Status: Full Code 8) Will follow peripheral until Post OP SIGNATURE: Niki Zamorano APRN.CNP PATIENT NAME: Harrison Milligan DATE: October 26, 2018 TIME: 3:38 PM PAGER/CONTACT #: [phone] ? -------- Removed attestation signed by China Lerma at 10/26/2018 7:26 PM (removed by China Lerma at 10/26/2018 7:27 PM) S: Pt without any complaints of shortness of breath or cough. O: 10/26/18 0928 10/26/18 1302 10/26/18 1344 10/26/18 1500 BP: (!) 98/49 (!) 111/45 Pulse: 62 70 67 Resp: 16 18 18 Temp: 36.4 ?C (97.5 ?F) 36.5 ?C (97.7 ?F) TempSrc: Oral Oral SpO2: 96% 98% Weight: (!) 138.8 kg (306 lb) Height: 180.3 cm (5' 10.98) well-built 78-year-old gentleman sitting on the edge of bed. Pleasant spirits. NAD RRR Lungs: CTA Obese EXT: + pedal edema A/P Agree with nut tapper plan: See ARISCAT score. Pulmonary status currently optimized for surgery. Will follow post op in CVICU. -------- Matt Moran MD 10/26/2018 4:38 PM Signed INPATIENT PROGRESS NOTE SERVICE DATE: 10/26/2018 SERVICE TIME: 4:34 PM PRIMARY SERVICE: Sound Subjective CHIEF COMPLAINT: SOB INTERVAL HPI: No JOHNSON/CP/SOB/Abd pain Current Facility-Administered Medications Medication Dose Route Frequency - enoxaparin 40 mg injection (LOVENOX) 40 mg SUBCUTANEOUS DAILY - NaCl 0.9% 3-5 mL 3-5 mL INTRAVENOUS q 12 H - NaCl 0.9% 2-10 mL 2-10 mL INTRAVENOUS q 12 H - magnesium hydroxide 400 mg/5 mL 30 mL (MOM) 30 mL ORAL DAILY PRN - docusate sodium 100 mg cap(s) (COLACE) 100 mg ORAL BID PRN - acetaminophen 650 mg tab(s) (TYLENOL) 650 mg ORAL q 6 H PRN - melatonin 6 mg tab(s) 6 mg ORAL DAILY (8 PM) - morphine 4 mg injection 4 mg INTRAVENOUS q 3 H PRN - nitroglycerin sublingual 0.4 mg tab(s) (NITROQUICK) 0.4 mg SUBLINGUAL PRN - ondansetron (PF) 4 mg injection (ZOFRAN) 4 mg INTRAVENOUS q 6 H PRN - oxyCODONE-acetaminophen 5-325 mg 1 tablet (PERCOCET) 1 tablet ORAL q 6 H PRN - polyvinyl alcohol-povidone 1.4-0.6 % 1 Drop (REFRESH) 1 Drop BOTH EYES PRN - prochlorperazine 5 mg injection (COMPAZINE) 5 mg INTRAVENOUS q 4 H PRN - saliva substitute combo no.9 15 mL (BIOTENE mouthwash) 15 mL MUCOUS MEMBRANE (TOPICAL MOUTH AND THROAT) PRN - sodium chloride 0.65 % 2 Crooks (AYR, OCEAN) 2 Crooks EACH NOSTRIL PRN - Lip Protectant with Sunscreen SPF 15 1 application Stick (Blistex) 1 application TOPICAL PRN - albuterol 2.5 mg /3 mL (0.083 %) 2.5 mg (PROVENTIL) 2.5 mg INHALATION q 4 H PRN - aluminum-magnesium hydroxide-simethicone 200-200-20 mg/5 mL 30 mL (MAALOX,MYLANTA,MAG-AL PLUS) 30 mL ORAL q 6 H PRN - benzocaine-menthol 1 Lozenge (CEPACOL) 1 Lozenge MUCOUS MEMBRANE (TOPICAL MOUTH AND THROAT) q 2 H PRN - diphenhydrAMINE 25 mg (BENADRYL) 25 mg ORAL q 4 H PRN - guaiFENesin-dextromethor mcfarland 100-10 mg/5 mL 10 mL oral liquid (ROBITUSSIN DM) 10 mL ORAL q 4 H PRN - hydrALAZINE 25 mg tab(s) (APRESOLINE) 25 mg ORAL q 6 H PRN - Hydrochlorothiazide 12.5 mg 12.5 mg ORAL DAILY - lisinopril 40 mg tab(s) (ZESTRIL, PRINIVIL) 40 mg ORAL DAILY - aspirin, enteric coated 81 mg tab(s) 81 mg ORAL DAILY - atorvastatin 20 mg tab(s) (LIPITOR) 20 mg ORAL AT BEDTIME - mupirocin 2 % ointment (BACTROBAN) TOPICAL BID - carvedilol 3.125 mg tab(s) (COREG) 3.125 mg ORAL BID w MEALS - ipratropium-albuterol 3 mL nebulizer solution (DUONEB) 3 mL INHALATION TID Objective PHYSICAL EXAM: BP 111/45 Pulse 67 Temp (Src) 97.7 (Oral) Resp 18 Ht 5' 10.984 (1.80m) Wt 306 lb (138.8kg) SpO2 98% BMI 42.70 kg/(m2). Physical Exam Performed GENERAL: Alert, no distress, cooperative SKIN: Skin color, texture, turgor normal. No rashes or lesions. EYES: EOMI NECK: No jugulovenous distention, Supple LUNGS: Lungs clear to auscultation, Good diaphragmatic excursion CARDIAC: III/IV RAMONITA ABDOMEN: Abdomen soft, non-tender, BS normal, No masses or organomegaly EXTREMITIES: 1+ pitting b/l NEURO: Grossly normal cognition, motor function, and cranial nerves III-XII DATA: Diagnostic tests reviewed for today's visit: Most recent labs and imaging results. Assessment/Plan 1. CAD - for CABG 10/29 after Plavix washout. ASA/carvedilol/lisinopri l/statin. 2. Severe - ?AVR 10/29 3. Morbid Obesity 4. LE edema - may have some contribution of venous insufficiency, but will get ECHO 5. Chronic CVA Medication and Non-Pharmacologic VTE Prophylaxis/Anticoagulan ts Anticoagulant AND Antiplatelet Medications (From admission, onward) Start Dose Route Frequency Ordered Stop 10/23/18 0900 aspirin, enteric coated 81 mg tab(s) 81 mg ORAL DAILY 10/23/18 0037 -- 10/22/181929 enoxaparin 40 mg injection (LOVENOX) (Medical At Risk ) 40 mg SUBCUTANEOUS DAILY 10/22/18191310/28/18235810/22/181914 vte non-pharmacologic prophylaxis - none indicated (fl,oh) 10/22/181914 activity - mobilize patient (ct,co) VTE Prophylaxis: VTE prophylaxis appropriate SIGNATURE: Matt Moran MD PATIENT NAME: Harrison Milligan DATE: October 26, 2018 TIME: 4:34 PM PAGER: Loyd Cummins DO 10/27/2018 10:00 AM Signed DEPARTMENT OF HOSPITAL MEDICINE PROGRESS NOTE SERVICE DATE: 10/27/2018 SERVICE TIME: 9:57 AM Hospital Medicine/Primary Attending: Rochelle Cummins DO NIGHT AND WEEKEND COVERAGE: After 7pm please page [phone] CHIEF COMPLAINT: Follow up on CAD SUBJECTIVE: Pt seen and examined. Feels good. Rolled over on tele last night and caused pain. Pt denies chest pain, shortness of breath, nausea, vomiting, or diarrhea. OBJECTIVE: PHYSICAL EXAM: BP 111/52 Pulse 63 Temp (Src) 97.9 (Oral) Resp 16 Ht 5' 10.984 (1.80m) Wt 306 lb (138.8kg) SpO2 97% BMI 42.70 kg/(m2). General - AANDOx3, NAD, Calm CV - RRR S1 S2, No M/R/G RESP - CTA B/L No wheezes, ronchi, rales ABD - soft, NT, ND +BS EXT - no gross joint deformity, no clubbing, cyanosis, edema NEURO - CN II-XII grossly intact, no focal deficits MEDICATIONS: Current Facility-Administered Medications Medication Dose Route Frequency - enoxaparin 40 mg injection (LOVENOX) 40 mg SUBCUTANEOUS DAILY - NaCl 0.9% 3-5 mL 3-5 mL INTRAVENOUS q 12 H - NaCl 0.9% 2-10 mL 2-10 mL INTRAVENOUS q 12 H - magnesium hydroxide 400 mg/5 mL 30 mL (MOM) 30 mL ORAL DAILY PRN - docusate sodium 100 mg cap(s) (COLACE) 100 mg ORAL BID PRN - acetaminophen 650 mg tab(s) (TYLENOL) 650 mg ORAL q 6 H PRN - melatonin 6 mg tab(s) 6 mg ORAL DAILY (8 PM) - morphine 4 mg injection 4 mg INTRAVENOUS q 3 H PRN - nitroglycerin sublingual 0.4 mg tab(s) (NITROQUICK) 0.4 mg SUBLINGUAL PRN - ondansetron (PF) 4 mg injection (ZOFRAN) 4 mg INTRAVENOUS q 6 H PRN - oxyCODONE-acetaminophen 5-325 mg 1 tablet (PERCOCET) 1 tablet ORAL q 6 H PRN - polyvinyl alcohol-povidone 1.4-0.6 % 1 Drop (REFRESH) 1 Drop BOTH EYES PRN - prochlorperazine 5 mg injection (COMPAZINE) 5 mg INTRAVENOUS q 4 H PRN - saliva substitute combo no.9 15 mL (BIOTENE mouthwash) 15 mL MUCOUS MEMBRANE (TOPICAL MOUTH AND THROAT) PRN - sodium chloride 0.65 % 2 Crooks (AYR, OCEAN) 2 Crooks EACH NOSTRIL PRN - Lip Protectant with Sunscreen SPF 15 1 application Stick (Blistex) 1 application TOPICAL PRN - albuterol 2.5 mg /3 mL (0.083 %) 2.5 mg (PROVENTIL) 2.5 mg INHALATION q 4 H PRN - aluminum-magnesium hydroxide-simethicone 200-200-20 mg/5 mL 30 mL (MAALOX,MYLANTA,MAG-AL PLUS) 30 mL ORAL q 6 H PRN - benzocaine-menthol 1 Lozenge (CEPACOL) 1 Lozenge MUCOUS MEMBRANE (TOPICAL MOUTH AND THROAT) q 2 H PRN - diphenhydrAMINE 25 mg (BENADRYL) 25 mg ORAL q 4 H PRN - guaiFENesin-dextromethor mcfarland 100-10 mg/5 mL 10 mL oral liquid (ROBITUSSIN DM) 10 mL ORAL q 4 H PRN - hydrALAZINE 25 mg tab(s) (APRESOLINE) 25 mg ORAL q 6 H PRN - Hydrochlorothiazide 12.5 mg 12.5 mg ORAL DAILY - lisinopril 40 mg tab(s) (ZESTRIL, PRINIVIL) 40 mg ORAL DAILY - aspirin, enteric coated 81 mg tab(s) 81 mg ORAL DAILY - atorvastatin 20 mg tab(s) (LIPITOR) 20 mg ORAL AT BEDTIME - mupirocin 2 % ointment (BACTROBAN) TOPICAL BID - carvedilol 3.125 mg tab(s) (COREG) 3.125 mg ORAL BID w MEALS - ipratropium-albuterol 3 mL nebulizer solution (DUONEB) 3 mL INHALATION TID - perflutren lipid microspheres 1.1 mg/mL 1.3 mL injection (DEFINITY) 1.3 mL INTRAVENOUS DIRECTED PRN DATA: Diagnostic tests reviewed for today's visit: CBC: Recent Labs 10/27/18 0505 WBC 6.42 RBC 4.74 HB 14.5 HCT 43.7 PLT 154 MCV 92.2 MCH 30.6 MPV 11.4 RDW 12.3 Coags: No results for input(s): INR, APTT in the last 24 hours. Invalid input(s): PT BMP: Recent Labs 10/27/18 0505 NA 140 K 4.4 CHLOR 111* CO2 23 BUN 36* CREAT 1.34* GLUC 107* CMP: Recent Labs 10/27/18 0505 NA 140 K 4.4 CHLOR 111* CO2 23 BUN 36* CREAT 1.34* GLUC 107* CA 9.0 ANION 10 Cardiac Enzymes: No results for input(s): CK, MB, CKMB, TROPT in the last 24 hours. Liver Function, Amylase, Lipase: No results for input(s): TPROT, ALB, ALT, AST, ALKPHOS, TBILI, AMYLASE, LIPASE, LACTATE in the last 24 hours. MG/PHOS: No results for input(s): MG, P in the last 24 hours. Renal Panel: Recent Labs 10/27/18 0505 CREAT 1.34* BUN 36* GLUC 107* CA 9.0 CHLOR 111* K 4.4 CO2 23 NA 140 Heme: No results for input(s): RETICP, ABSRETIC, LD, JESSICA, FE, TIBC, TRANSFERSAT in the last 24 hours. No results found for: UALBCR Assessment/Plan 1. CAD - plans for CABG on Sunday. 2. Abnormal renal function - will give small fluid bolus and re check in AM 3. Severe - ?AVR 4. Morbid obesity - weight loss 5. Lower extremity edema - ?venous insuff? Echo ordered Medication and Non-Pharmacologic VTE Prophylaxis/Anticoagulan ts Anticoagulant AND Antiplatelet Medications (From admission, onward) Start Dose Route Frequency Ordered Stop 10/23/18 0900 aspirin, enteric coated 81 mg tab(s) 81 mg ORAL DAILY 10/23/18 0037 -- 10/22/18 1930 enoxaparin 40 mg injection (LOVENOX) (Medical At Risk ) 40 mg SUBCUTANEOUS DAILY 10/22/18191310/28/18235810/22/181914 vte non-pharmacologic prophylaxis - none indicated (ct,oh) 10/22/181914 activity - mobilize patient (ct,co) Lines, Drains, and Airways Line Peripheral 10/21/18 0700 Admission to Hospital Short Right Wrist 22 Gauge 6 days VTE Prophylaxis: Lovenox 40mg Sub Q Daily Disposition: [facility] with [facility] Functional Status Prior to Admit: Medical Necessity for Continued Hospitalization CABG Plan of care discussed with: Patient SIGNATURE: Rochelle Cummins DO PATIENT NAME: Harrison Milligan DATE: October 27, 2018 TIME: 9:57 AM PAGER/CONTACT #: [phone] Iram Sykes, RN, RN 10/28/2018 9:05 AM Signed Definity Given Per Protocol Via Right Wrist [place] For An Echo With A Poor Cardiac Window. Pt Tolerated Well. No Infiltrate. Harmony Miles DO 10/29/2018 12:01 AM Signed INTERNAL MEDICINE PROGRESS NOTE SERVICE DATE: 10/28/2018 SERVICE TIME: 7:39 PM ADMITTING PHYSICIAN: Yair Santiago Subjective CHIEF COMPLAINT: f/u medical issues listed below Current Facility-Administered Medications Medication Dose Route Frequency - perflutren lipid microspheres 1.1 mg/mL 1.3 mL injection (DEFINITY) 1.3 mL INTRAVENOUS DIRECTED PRN - ipratropium-albuterol 3 mL nebulizer solution (DUONEB) 3 mL INHALATION TID - aspirin, enteric coated 81 mg tab(s) 81 mg ORAL DAILY - atorvastatin 20 mg tab(s) (LIPITOR) 20 mg ORAL AT BEDTIME - carvedilol 3.125 mg tab(s) (COREG) 3.125 mg ORAL BID w MEALS - enoxaparin 40 mg injection (LOVENOX) 40 mg SUBCUTANEOUS DAILY - NaCl 0.9% 3-5 mL 3-5 mL INTRAVENOUS q 12 H - NaCl 0.9% 2-10 mL 2-10 mL INTRAVENOUS q 12 H - magnesium hydroxide 400 mg/5 mL 30 mL (MOM) 30 mL ORAL DAILY PRN - docusate sodium 100 mg cap(s) (COLACE) 100 mg ORAL BID PRN - acetaminophen 650 mg tab(s) (TYLENOL) 650 mg ORAL q 6 H PRN - melatonin 6 mg tab(s) 6 mg ORAL DAILY (8 PM) - morphine 4 mg injection 4 mg INTRAVENOUS q 3 H PRN - nitroglycerin sublingual 0.4 mg tab(s) (NITROQUICK) 0.4 mg SUBLINGUAL PRN - ondansetron (PF) 4 mg injection (ZOFRAN) 4 mg INTRAVENOUS q 6 H PRN - oxyCODONE-acetaminophen 5-325 mg 1 tablet (PERCOCET) 1 tablet ORAL q 6 H PRN - polyvinyl alcohol-povidone 1.4-0.6 % 1 Drop (REFRESH) 1 Drop BOTH EYES PRN - prochlorperazine 5 mg injection (COMPAZINE) 5 mg INTRAVENOUS q 4 H PRN - saliva substitute combo no.9 15 mL (BIOTENE mouthwash) 15 mL MUCOUS MEMBRANE (TOPICAL MOUTH AND THROAT) PRN - sodium chloride 0.65 % 2 Crooks (AYR, OCEAN) 2 Crooks EACH NOSTRIL PRN - Lip Protectant with Sunscreen SPF 15 1 application Stick (Blistex) 1 application TOPICAL PRN - albuterol 2.5 mg /3 mL (0.083 %) 2.5 mg (PROVENTIL) 2.5 mg INHALATION q 4 H PRN - aluminum-magnesium hydroxide-simethicone 200-200-20 mg/5 mL 30 mL (MAALOX,MYLANTA,MAG-AL PLUS) 30 mL ORAL q 6 H PRN - benzocaine-menthol 1 Lozenge (CEPACOL) 1 Lozenge MUCOUS MEMBRANE (TOPICAL MOUTH AND THROAT) q 2 H PRN - diphenhydrAMINE 25 mg (BENADRYL) 25 mg ORAL q 4 H PRN - guaiFENesin-dextromethor mcfarland 100-10 mg/5 mL 10 mL oral liquid (ROBITUSSIN DM) 10 mL ORAL q 4 H PRN - hydrALAZINE 25 mg tab(s) (APRESOLINE) 25 mg ORAL q 6 H PRN INTERVAL HISTORY OF PRESENT ILLNESS: BP noted Objective PHYSICAL EXAM: Patient Vitals for the past 24 hrs: BP Temp Temp src Pulse Resp SpO2 Weight 10/28/18 1544 (!) 104/45 37 ?C (98.6 ?F) Oral 65 18 96 % ? 10/28/18 1158 (!) 99/47 36.7 ?C (98.1 ?F) Oral 71 18 96 % ? 10/28/18 1053 ? ? ? 64 18 ? ? 10/28/18 1004 (!) 114/44 36.5 ?C (97.7 ?F) Temporal Art 66 18 96 % ? 10/28/18 0844 ? (!) 138 kg (304 lb 3.8 oz) 10/28/18 0255 (!) 91/35 36.2 ?C (97.2 ?F) Oral 62 18 96 % ? 10/27/18 2358 92/66 36 ?C (96.8 ?F) Temporal 68 18 98 % ? 10/27/18 2000 (!) 104/47 36.6 ?C (97.9 ?F) Oral 70 18 96 % ? 10/27/18 1947 ? ? ? 69 18 99 % ? Body mass index is 42.45 kg/m?. GENERAL: Alert, no distress, cooperative LUNGS: Lungs clear to auscultation. Good diaphragmatic excursion. CARDIAC: Normal S1 and S2; no rubs, murmurs, or gallops ABDOMEN: Abdomen soft EXTREMITIES: no swelling DATA: Diagnostic tests reviewed for today's visit: Significant findings were revd Assessment/Plan # moderate (2+ - 3+) aortic valve regurgitation. There is severe aortic valve stenosis. # CAD # hypotension-dc hctz. Decrease lisinopril # morbid obesity Plan:OR 10/29 SIGNATURE: Harmony Miles DO PATIENT NAME: Harrison Milligan DATE: October 28, 2018 TIME: 7:39 PM PAGER/CONTACT #: Marin Velasquez MD 10/29/2018 7:23 AM Signed ANESTHESIOLOGY DAY OF SURGERY NOTE SERVICE DATE: 10/29/2018 SERVICE TIME: 7:11 AM : 1940 Procedure(s) (LRB): AVR W/ CARDIOPULMONARY BYPASS W/ PROSTHETIC OTHER THAN HOMOGRAFT/ STENTLESS TISSUE VALVE (N/A) BYPASS GRAFT ARTERY CORONARY ON-PUMP THREE CORONARY ARTERIAL GRAFTS (N/A) Surgeon(s): Scott Helms Estimated body mass index is 42.45 kg/m? as calculated from the following: Height as of this encounter: 180.3 cm (5' 10.98). Weight as of this encounter: 138 kg (304 lb 3.8 oz). Most recent hematocrit and potassium results: Hematocrit 43.7 10/27/2018 Potassium 4.6 10/28/2018 ANES DOS/PREOP NOTE: Vitals: 10/28/18 1954 10/28/18 2337 10/29/18 0509 10/29/18 0648 BP: 103/52 (!) 116/41 148/62 Pulse: 76 66 62 74 Resp: Temp: 36.8 ?C (98.2 ?F) 36.6 ?C (97.9 ?F) 36.6 ?C (97.9 ?F) TempSrc: Oral Oral Temporal Artery SpO2: 97% 99% 98% 97% Weight: Height: ACTIVE PROBLEM LIST Ataxia S/P Cva Essential Hypertension Mixed Hyperlipidemia History of Stroke Bmi 40.0-44.9, Adult (Hcc) Cad (Coronary Artery Disease) Nstemi (Non-St Elevated Myocardial Infarction) ([facility]) Cerebrovascular Disease Aortic Stenosis PAST MEDICAL HISTORY Diagnosis Date - Cerebrovascular disease 10/22/2018 - High blood pressure - HLD (hyperlipidemia) - Stroke (HCC) PAST SURGICAL HISTORY Procedure Laterality Date - CARDIAC CATH 10/21/2018 [facility] - TONSILLECTOMY AND ADENOIDECTOMY HX FAMILY HISTORY Problem Relation Age of Onset - Diabetes Father - Thyroid Sister - Cancer Mother thyroid - Diabetes Mother - Hypertension Mother Social History: Social History Tobacco Use - Smoking status: Never Smoker - Smokeless tobacco: Never Used Substance Use Topics - Alcohol use: No - Drug use: No No current facility-administered medications on file prior to encounter. Current Outpatient Medications on File Prior to Encounter: Hydrochlorothiazide 12.5 mg capsule Take 1 capsule by mouth once daily. simvastatin (ZOCOR) 40 mg tablet Take 1 tablet by mouth daily at bedtime. lisinopril (ZESTRIL, PRINIVIL) 40 mg tablet Take 1 tablet by mouth once daily. MULTIVITAMIN ORAL Take by mouth. Aspirin 81 mg ORAL Tab Take 81 mg by mouth. Current Facility-Administered Medications: [MAR Hold due to Transfer] heparin 3,000 Units in NaCl 0.9% 500 mL irrigation 3,000 Units IRRIGATION ONE TIME Scott Helms [MAR Hold due to Transfer] PHENYLephrine 20 mg in NaCl 0.9% 250 mL (NEOSYNEPHRINE) 25-300 mcg/min INTRAVENOUS ONE TIME Scott Helms [MAR Hold due to Transfer] aminocaproic acid 10 g in NaCl 0.9% 250 mL (AMicAR) 1 g/hr INTRAVENOUS ONE TIME Scott Helms [MAR Hold due to Transfer] dexmedetomidine 400 mcg in NaCl 0.9% 100 mL (PRECEDEX) 0.2-0.7 mcg/kg/hr INTRAVENOUS ONE TIME Scott Helms [MAR Hold due to Transfer] EPINEPHrine 4 mg in NaCl 0.9% 250 mL 0.5-10 mcg/min INTRAVENOUS ONE TIME Scott Helms [MAR Hold due to Transfer] insulin regular iv infusion 100 units in NaCl 0.9% 100 mL - AK CARD SURG NOMOGRAM 0-12 Units/hr INTRAVENOUS ONE TIME Scott Helms [OCT Hold due to Transfer] nitroglycerin 100 mg in D5W 250 mL 5-20 mcg/min INTRAVENOUS ONE TIME Scott Helms [MAR Hold due to Transfer] NORepinephrine 16 mg in NaCl 0.9% 250 mL (LEVOPHED) 0-20 mcg/min INTRAVENOUS ONE TIME Scott Helms [MAR Hold due to Transfer] PHENYLephrine iv infusion 10 mg in NaCl 0.9% 250 mL (KASI-SYNEPHRINE) 0-100 mcg/min INTRAVENOUS ONE TIME Scott Helms [MAR Hold due to Transfer] dextrose 50 g, insulin regular human 10 Units, potassium chloride 80 mEq, lidocaine 100 mg, magnesium sulfate 4 g in electrolyte-a (PLASMA-LYTE A) 1,000 mL solution MISCELLANEOUS ONE TIME Scott Helms [MAR Hold due to Transfer] dextrose 25 g, insulin regular human 5 Units, potassium chloride 20 mEq, lidocaine 50 mg, magnesium sulfate 2 g in electrolyte-a (PLASMA-LYTE A) 500 mL solution MISCELLANEOUS ONE TIME Scott Helms vancomycin iv piggyback 1 g in D5W 200 mL (VANCOCIN) 1 g INTRAVENOUS ONCE Scott Helms ceFAZolin 3 g in D5W 100 mL (ANCEF) 3 g INTRAVENOUS ONCE Tristin Fields (Pa) [MAR Hold due to Transfer] lisinopril 2.5 mg tab(s) 2.5 mg ORAL DAILY Harmony Miles [MAR Hold due to Transfer] perflutren lipid microspheres 1.1 mg/mL 1.3 mL injection (DEFINITY) 1.3 mL INTRAVENOUS DIRECTED PRN David Kumari [MAR Hold due to Transfer] ipratropium-albuterol 3 mL nebulizer solution (DUONEB) 3 mL INHALATION TID Flakita (Contact Lens Edge Buffer) TITA Baker.EXECUTIVE CREATIVE DIRECTOR 3 mL at 10/28/181951 [MAR Hold due to Transfer] aspirin, enteric coated 81 mg tab(s) 81 mg ORAL DAILY Yair Santiago 81 mg at 10/29/18512 [MAR Hold due to Transfer] atorvastatin 20 mg tab(s) (LIPITOR) 20 mg ORAL AT BEDTIME Yair Santiago 20 mg at 10/28/181943 [MAR Hold due to Transfer] carvedilol 3.125 mg tab(s) (COREG) 3.125 mg ORAL BID w MEALS Harmony Miles 3.125 mg at 10/29/18511 [MAR Hold due to Transfer] NaCl 0.9% 3-5 mL 3-5 mL INTRAVENOUS q 12 H Yair Santiago 5 mL at 10/28/182099 [MAR Hold due to Transfer] NaCl 0.9% 2-10 mL 2-10 mL INTRAVENOUS q 12 H Yair Santiago 5 mL at 10/27/182004 [MAR Hold due to Transfer] magnesium hydroxide 400 mg/5 mL 30 mL (MOM) 30 mL ORAL DAILY PRN Yair Santiago [MAR Hold due to Transfer] docusate sodium 100 mg cap(s) (COLACE) 100 mg ORAL BID PRN Yair Santiago 100 mg at 10/27/181739 [MAR Hold due to Transfer] acetaminophen 650 mg tab(s) (TYLENOL) 650 mg ORAL q 6 H PRN Yair Santiago [MAR Hold due to Transfer] melatonin 6 mg tab(s) 6 mg ORAL DAILY (8 PM) Yair Santiago 6 mg at 10/28/181943 [MAR Hold due to Transfer] morphine 4 mg injection 4 mg INTRAVENOUS q 3 H PRN Yair Santiago [MAR Hold due to Transfer] nitroglycerin sublingual 0.4 mg tab(s) (NITROQUICK) 0.4 mg SUBLINGUAL PRN Yair Walkersteven [OCT Hold due to Transfer] ondansetron (PF) 4 mg injection (ZOFRAN) 4 mg INTRAVENOUS q 6 H PRN Yair Walkersteven [OCT Hold due to Transfer] oxyCODONE-acetaminophen 5-325 mg 1 tablet (PERCOCET) 1 tablet ORAL q 6 H PRN Yair Oli Walkersteven [OCT Hold due to Transfer] polyvinyl alcohol-povidone 1.4-0.6 % 1 Drop (REFRESH) 1 Drop BOTH EYES PRN Yair Walkersteven [OCT Hold due to Transfer] prochlorperazine 5 mg injection (COMPAZINE) 5 mg INTRAVENOUS q 4 H PRN Yair Oli Pamela [OCT Hold due to Transfer] saliva substitute combo no.9 15 mL (BIOTENE mouthwash) 15 mL MUCOUS MEMBRANE (TOPICAL MOUTH AND THROAT) PRN Yair Walkersteven [OCT Hold due to Transfer] sodium chloride 0.65 % 2 Crooks (AYR, OCEAN) 2 Crooks EACH NOSTRIL PRN Yair Walkersteven [OCT Hold due to Transfer] Lip Protectant with Sunscreen SPF 15 1 application Stick (Blistex) 1 application TOPICAL PRN Yair Walkersteven [OCT Hold due to Transfer] albuterol 2.5 mg /3 mL (0.083 %) 2.5 mg (PROVENTIL) 2.5 mg INHALATION q 4 H PRN Yair Oli Walkersteven [OCT Hold due to Transfer] aluminum-magnesium hydroxide-simethicone 200-200-20 mg/5 mL 30 mL (MAALOX,MYLANTA,MAG-AL PLUS) 30 mL ORAL q 6 H PRN Yair Walkersteven [OCT Hold due to Transfer] benzocaine-menthol 1 Lozenge (CEPACOL) 1 Lozenge MUCOUS MEMBRANE (TOPICAL MOUTH AND THROAT) q 2 H PRN Yair Oli Pamela [OCT Hold due to Transfer] diphenhydrAMINE 25 mg (BENADRYL) 25 mg ORAL q 4 H PRN Yair Oli Pamela [OCT Hold due to Transfer] guaiFENesin-dextromethor mcfaralnd 100-10 mg/5 mL 10 mL oral liquid (ROBITUSSIN DM) 10 mL ORAL q 4 H PRN Yair Santiago [MAR Hold due to Transfer] hydrALAZINE 25 mg tab(s) (APRESOLINE) 25 mg ORAL q 6 H PRN Yair Santiago 25 mg at 10/23/18 0905 Allergies: ALLERGIES No Known Allergies DOS EXAM: Adequate NPO Status: Yes Anesthetic Risks, Benefits, Alternatives, Personnel and Consent Discussed: Yes Patient agrees to proceed: Yes Previous Anesthesia: No history of adverse event Airway Assessment: MP 3; Neck ROM: Full ROM without neurologic symptoms; Airway Evaluation: Short Neck and Thick neck Symptoms of Sleep Apnea: Hypertension, BMI > 35, Age over 50 (78 year old), Neck circumference > 15.75 inches and Male gender Dentition: Poor dentition Chipped, loose and/or missing Additional Physical Exam: Lungs: Patient health status unchanged since recent history and physical. See history and physical for exam findings. Cardiac: Patient health status unchanged since recent history and physical. See history and physical for exam findings. Additional Pertinent Findings: N/A Blood Products: Will accept Blood/Blood Products Anesthetic Plan: General Anesthetic Monitoring: Standard ASA Monitors, Invasive Hemodynamic Monitoring Arterial line, Introducer, PA Catheter, KOKI - patient denies history of stricture or varices and CVP, Potential Prolonged Intubation, Potential ICU Admission Postop and Potential Multiple Transfusions Pain Management Plan: per Surgical Service ASA Class: 4 Other Medical Problems: None Chronic Beta Whit medication administered within 24 hours: Yes I have interviewed and examined the patient. I have reviewed the medical record and/or the pre-anesthesia evaluation, pertinent labs, and test results. Significant changes in the patient's condition since the History and Physical, not otherwise documented in primary service progress notes: No This contains updated information obtained within 48 hours of Surgery/Procedure. SIGNATURE: Marin Velasquez MD PATIENT NAME: Harrison Milligan DATE: October 29, 2018 TIME: 7:21 AM CSN: [id number] Normal [facility] Hemogramon 10-22-2018 Erythrocyte distribution width (RBC) [Ratio] 12.2 % Normal 11.6-14.4 [facility] Comment on above: Performed By: #### C BC1 #### [address] [address] Hematocrit (Bld) [Volume fraction] 44.8 % Normal 40.1-51.0 [facility] Comment on above: Performed By: #### C BC1 #### [facility] [address] [address] Hemoglobin (Bld) [Mass/Vol] 15.6 g/dL Normal 13.7-17.5 [facility] Comment on above: Performed By: #### C BC1 #### [facility] [facility] [address] [place] [id number] MCH (RBC) [Entitic mass] 31.5 pg Normal 25.7-32.2 [facility] Comment on above: Performed By: #### C BC1 #### [facility] [address] [address] MCHC (RBC) [Mass/Vol] 34.8 % Normal 32.3-36.5 [facility] Comment on above: Performed By: #### C BC1 #### [facility] [address] [address] MCV (RBC) [Entitic vol] 90.3 fL Normal 83.2-95.6 [facility] Comment on above: Performed By: #### C BC1 #### [facility] [address] [address] Platelet mean volume (Bld) [Entitic vol] 11.0 fL Normal 8.7-12.0 [facility] Comment on above: Performed By: #### C BC1 #### [facility] [address] [place] [address] Platelets (Bld) [#/Vol] 148 thou/cmm Normal 141-365 [facility] Comment on above: Performed By: #### C BC1 #### [facility] [address] [place] [address] RBC (Bld) [#/Vol] 4.96 mil/cmm Normal 4.63-6.08 [facility] Comment on above: Performed By: #### C BC1 #### [facility] [address] [place] [address] RDW SD 40.0 fl Normal 36.1-45.8 [facility] Comment on above: Performed By: #### C BC1 #### [facility] [address] [place] [address] WBC (Bld) [#/Vol] 9.03 thou/cmm Normal 4.23-9.07 [facility] Comment on above: Performed By: #### C BC1 #### [facility] [address] [place] [address] Magnesium Bloodon 10-22-2018 Magnesium [Mass/Vol] 2.1 mg/dL Normal 1.6-2.6 [facility] Comment on above: Performed By: #### M AG #### [facility] [address] [place] [address] Phosphorus Bloodon 9 Phosphate [Mass/Vol] 3.7 mg/dL Normal 2.5-4.9 [facility] Comment on above: Performed By: #### P HOS #### [place] [address] Prealbuminon 10-22-2018 Prealbumin [Mass/Vol] 31.4 mg/dL Normal 20.0-40.0 [facility] Comment on above: Performed By: #### P AB #### [place] [address] Protimeon 10-22-2018 INR Coag (PPP) [Relative time] 1.05 {INR} Normal 0.90-1.30 [facility] Comment on above: Result Comment: Note : Reference Range Change Vitamin K Antagonist (VKA) Therapeutic Range: INR 2 to 3 (Target INR of 2.5) Note: For patients treated with VKA drugs, such as warfarin, the [place] 2012 Guideline recommends a therapeutic INR range of 2 to 3 (target INR of 2.5). This recommendation includes high-risk patients with antiphospholipid syndrome with previous arterial or venous thromboembolism, current-generation mechanical or bioprosthetic aortic heart valve replacement. VKA Therapeutic Range for some Mechanical Valve Replacement: INR 2.5 to 3.5 (Target INR of 3) Note: Patients with mechanical aortic valve replacement and additional risk factors for thromboembolic events (atrial fibrillation, previous thromboembolism, LV dysfunction, hypercoagulable conditions) or an older generation mechanical AVR (i.e., ball in-Cage) or any mechanical MVR should have a INR therapeutic range of 2.5 to 3.5 target INR of 3). Jaime GH, et al. Chest 2012; 141:7S-47S Sebas SALVADOR et al. JAC 2017; 70: 252-289 Performed By: #### P T #### [facility] [address] [place], [place] [address] PT Coag (PPP) [Time] 10.9 s Normal 9.7-13.0 [facility] Comment on above: Performed By: #### P T #### [facility] [address] [place], [place] [address] Culture, urine Bacteria identified Cx Nom (U) Culture exhibits no growth. [facility] Work Phone: Bacteria identified Cx Nom (U) Escherichia coli [facility] Work Phone: Laboratory - Microbiology an d Antimicrobial susceptibility Bacteria identified Cx Nom (Bld) No growth in 5 days. [facility] Work Phone: No Panel Information SARS-CoV-2 Antigen (Rapid) [facility] Work Phone: Vital Signs Date Time Vital Sign Value Performing Clinician Facility 01-06-2025 09:50-0400 Body height 180.[address] Rustam Kebede MD Work Phone: [facility] 01-06-2025 09:50-0400 Body mass index (BMI) [Ratio] 40.6 kg/m2 Dr. Rustam Kebede MD Work Phone: [facility] 01-06-2025 09:50-0400 Body weight 131.[address] Rustam Kebede MD Work Phone: [facility] 01-06-2025 09:50-0400 Diastolic blood pressure 76 mm[Hg] Dr. Rustam Kebede MD Work Phone: [facility] 01-06-2025 09:50-0400 Heart rate 74 /min Dr. Rustam Kebede MD Work Phone: [facility] 01-06-2025 09:50-0400 Respiratory rate 18 /min Dr. Rustam Kebede MD Work Phone: [facility] 01-06-2025 09:50-0400 Systolic blood pressure 139 mm[Hg] Dr. Rustam Kebede MD Work Phone: [facility] 06-13-2024 13:03-0400 Diastolic blood pressure 78 mm[Hg] Latonia Yarbrough MD Work Phone: [facility] 06-13-2024 13:03-0400 Systolic blood pressure 144 mm[Hg] Latonia Yarbrough MD Work Phone: [facility] 06-13-2024 10:06-0400 Body height 180.3 cm Latonia Yarbrough MD Work Phone: [facility] 06-13-2024 10:06-0400 Body mass index (BMI) [Ratio] 39.68 kg/m2 Latonia Yarbrough MD Work Phone: [facility] 06-13-2024 10:06-0400 Body weight 129 kg Latonia Yarbrough MD Work Phone: [facility] 06-13-2024 10:06-0400 Heart rate 69 /min Latonia Yarbrough MD Work Phone: [facility] 12-07-2023 08:08-0400 Body height 180.3 cm Latonia Yarbrough MD Work Phone: [facility] 12-07-2023 08:08-0400 Body weight 122.8 kg Latonia Yarbrough MD Work Phone: [facility] 12-07-2023 08:08-0400 Diastolic blood pressure 73 mm[Hg] Latonia Yarbrough MD Work Phone: [facility] 12-07-2023 08:08-0400 Heart rate 71 /min Latonia Yarbrough MD Work Phone: [facility] 12-07-2023 08:08-0400 Systolic blood pressure 128 mm[Hg] Latonia Yarbrough MD Work Phone: [facility] 11-08-2023 10:17-0400 Body height 180.[address] Sanju Yarbrough Work Phone: [facility] 11-08-2023 10:17-0400 Body mass index (BMI) [Ratio] 38.4 kg/m2 Dr. Sanju Yarbrough Work Phone: [facility] 11-08-2023 10:17-0400 Body weight 124.[address] Sanju Yarbrough Work Phone: [facility] 11-08-2023 10:17-0400 Diastolic blood pressure 82 mm[Hg] Dr. Sanju Yarbrough Work Phone: [facility] 11-08-2023 10:17-0400 Heart rate 67 /min Dr. Sanju Yarbrough Work Phone: [facility] 11-08-2023 10:17-0400 Respiratory rate 16 /min Dr. Sanju Yarbrough Work Phone: [facility] 11-08-2023 10:17-0400 Systolic blood pressure 155 mm[Hg] Dr. Sanju Yarbrough Work Phone: [facility] 03-27-2023 09:31-0400 Body height 154.[address] Sanju Yarbrough Work Phone: [facility] 03-27-2023 09:31-0400 Body mass index (BMI) [Ratio] 48.7 kg/m2 Dr. Sanju Yarbrough Work Phone: [facility] 03-27-2023 09:31-0400 Body weight 117.[address] Sanju Yarbrough Work Phone: [facility] 03-27-2023 09:31-0400 Diastolic blood pressure 72 mm[Hg] Dr. Sanju Yarbrough Work Phone: [facility] 03-27-2023 09:31-0400 Heart rate 73 /min Dr. Sanju Yarbrough Work Phone: [facility] 03-27-2023 09:31-0400 Respiratory rate 20 /min Dr. Sanju Yarbrough Work Phone: [facility] 03-27-2023 09:31-0400 SaO2% (BldA) [Mass fraction] 95 % Dr. Sanju Yarbrough Work Phone: [facility] 03-27-2023 09:31-0400 Systolic blood pressure 137 mm[Hg] Dr. Sanju Yarbrough Work Phone: [facility] 09-26-2022 09:07-0500 Body height 154.[address] Sanju Yarbrough Work Phone: [facility] 09-26-2022 09:07-0500 Body mass index (BMI) [Ratio] 37 kg/m2 Dr. Sanju Yarbrough Work Phone: [facility] 09-26-2022 09:07-0500 Body weight 120.[address] Sanju Yarbrough Work Phone: [facility] 09-26-2022 09:07-0500 Diastolic blood pressure 74 mm[Hg] Dr. Sanju Yarbrough Work Phone: [facility] 09-26-2022 09:07-0500 Heart rate 85 /min Dr. Sanju Yarbrough Work Phone: [facility] 09-26-2022 09:07-0500 Respiratory rate 22 /min Dr. Sanju Yarbrough Work Phone: [facility] 09-26-2022 09:07-0500 SaO2% (BldA) [Mass fraction] 97 % Dr. Sanju Yarbrough Work Phone: [facility] 09-26-2022 09:07-0500 Systolic blood pressure 142 mm[Hg] Dr. Sanju Yarbrough Work Phone: [facility] 06-29-2022 09:37-0500 Body height 180.3 cm Latonia Yarbrough MD Work Phone: [facility] 06-29-2022 09:37-0500 Body weight 113.4 kg Latonia Yarbrough MD Work Phone: [facility] 06-29-2022 09:37-0500 Diastolic blood pressure 53 mm[Hg] Latonia Yarbrough MD Work Phone: [facility] 06-29-2022 09:37-0500 Heart rate 74 /min Latonia Yarbrough MD Work Phone: [facility] 06-29-2022 09:37-0500 SaO2% (BldA) [Mass fraction] 97 % Latonia Yarbrough MD Work Phone: [facility] 06-29-2022 09:37-0500 Systolic blood pressure 109 mm[Hg] Latonia Yarbrough MD Work Phone: [facility] 03-16-2022 10:05-0400 Body height 180.[address] Sanju Yarbrough Work Phone: [facility] Work Phone: 03-16-2022 10:05-0400 Body mass index (BMI) [Ratio] 34 kg/m2 Dr. Sanju Yarbrough Work Phone: [facility] Work Phone: 03-16-2022 10:05-0400 Body weight 110.[address] Sanju Yarbrough Work Phone: [facility] Work Phone: 03-16-2022 10:05-0400 Diastolic blood pressure 67 mm[Hg] Dr. Sanju Yarbrough Work Phone: [facility] Work Phone: 03-16-2022 10:05-0400 Heart rate 73 /min Dr. Sanju Yarbrough Work Phone: [facility] Work Phone: 03-16-2022 10:05-0400 Respiratory rate 16 /min Dr. Sanju Yarbrough Work Phone: [facility] Work Phone: 03-16-2022 10:05-0400 SaO2% (BldA) [Mass fraction] 97 % Dr. Sanju Yarbrough Work Phone: [facility] Work Phone: 03-16-2022 10:05-0400 Systolic blood pressure 121 mm[Hg] Dr. Sanju Yarbrough Work Phone: [facility] Work Phone: 01-03-2022 11:04-0400 Body height 180.3 cm Latonia Yarbrough MD Work Phone: [facility] 01-03-2022 11:04-0400 Body weight 106.59 kg Latonia Yarbrough MD Work Phone: [facility] 01-03-2022 11:04-0400 Diastolic blood pressure 48 mm[Hg] Latonia Yarbrough MD Work Phone: [facility] 01-03-2022 11:04-0400 Heart rate 78 /min Latonia Yarbrough MD Work Phone: [facility] 01-03-2022 11:04-0400 SaO2% (BldA) [Mass fraction] 99 % Latonia Yarbrough MD Work Phone: [facility] 01-03-2022 11:04-0400 Systolic blood pressure 106 mm[Hg] Latonia Yarbrough MD Work Phone: [facility] 12-29-2021 08:20-0400 Body height 180.[address] OLAMIDE SEGURA MD [facility] 12-29-2021 08:20-0400 Body temperature 97.52 [degF] DR OLAMIDE SEGURA MD [facility] 12-29-2021 08:20-0400 Body weight [address] OLAMIDE SEGURA MD [facility] 12-29-2021 08:20-0400 Body weight 30.76 kg/m2 DR OLAMIDE SEGURA MD [facility] 12-29-2021 08:20-0400 diastolic 62 mm[Hg] DR OLAMIDE SEGURA MD [facility] 12-29-2021 08:20-0400 Heart rate 77 /min DR OLAMIDE SEGURA MD [facility] 12-29-2021 08:20-0400 Respiratory rate 18 /min DR OLAMIDE SEGURA MD [facility] 12-29-2021 08:20-0400 systolic 116 mm[Hg] DR OLAMIDE SEGURA MD [facility] 11-02-2021 14:28-0400 Body temperature 97.52 [degF] DR ELKIN JORGE MD [facility] 11-02-2021 14:28-0400 Diastolic blood pressure 76 mm[Hg] DR ELKIN JORGE MD [facility] 11-02-2021 14:28-0400 Heart rate 92 /min DR ELKIN JORGE MD [facility] 11-02-2021 14:28-0400 Mean blood pressure 99 mm[Hg] DR ELKIN JORGE MD [facility] 11-02-2021 14:28-0400 Reason For Taking VItal Signs DR ELKIN JORGE MD [facility] 11-02-2021 14:28-0400 Respiratory rate 20 /min DR ELKIN JORGE MD [facility] 11-02-2021 14:28-0400 Systolic blood pressure 144 mm[Hg] DR ELKIN JORGE MD [facility] 11-02-2021 10:32-0400 Body temperature 97.34 [degF] DR ELKIN JORGE MD [facility] 11-02-2021 10:32-0400 Diastolic blood pressure 80 mm[Hg] DR ELKIN JORGE MD [facility] 11-02-2021 10:32-0400 Heart rate 85 /min DR ELKIN JORGE MD [facility] 11-02-2021 10:32-0400 Mean blood pressure 94 mm[Hg] DR ELKIN JORGE MD [facility] 11-02-2021 10:32-0400 Reason For Taking VItal Signs DR ELKIN JORGE MD [facility] 11-02-2021 10:32-0400 Respiratory rate 20 /min DR ELKIN JORGE MD [facility] 11-02-2021 10:32-0400 Systolic blood pressure 123 mm[Hg] DR ELKIN JORGE MD [facility] 11-02-2021 06:44-0400 Body temperature 98.42 [degF] DR ELKIN JORGE MD [facility] 11-02-2021 06:44-0400 Diastolic blood pressure 67 mm[Hg] DR ELKIN JORGE MD [facility] 11-02-2021 06:44-0400 Heart rate 86 /min DR ELKIN JORGE MD [address] [place] [address] 11-02-2021 06:44-0400 Mean blood pressure 88 mm[Hg] DR ELKIN JORGE MD [address] [place] [address] 11-02-2021 06:44-0400 Reason For Taking VItal Signs DR ELKIN JORGE MD [address] [place] [address] 11-02-2021 06:44-0400 Respiratory rate 20 /min DR ELKIN JORGE MD [address] [place] [address] 11-02-2021 06:44-0400 Systolic blood pressure 129 mm[Hg] DR ELKIN JORGE MD [facility] 11-01-2021 09:26-0400 Heart rate 90 /min DR ELKIN JORGE MD [address] [place] [address] 10-31-2021 15:00-0400 Heart rate 93 /min DR ELKIN JORGE MD [facility] 10-30-2021 03:42-0400 Signs/Symptoms Transfusion Reaction DR ELKIN JORGE MD [address] [place] [address] 10-30-2021 01:42-0500 Signs/Symptoms Transfusion Reaction No DR ELKIN JORGE MD [facility] 10-30-2021 01:30-0500 Signs/Symptoms Transfusion Reaction DR ELKIN JORGE MD [facility] 10-29-2021 20:02-0500 Heart rate 84 /min DR ELKIN JORGE MD [facility] 10-29-2021 12:50-0500 Heart rate 98 /min DR ELKIN JORGE MD [facility] 10-29-2021 09:31-0500 Body height 180.[address] ELKIN JORGE MD [facility] 10-29-2021 09:31-0500 Body weight 111.[address] ELKIN JORGE MD [facility] 10-29-2021 09:31-0500 Body weight 34.39 kg/m2 DR ELKIN JORGE MD [facility] 10-29-2021 09:06-0500 Diastolic Blood Pressure NBP [address] ELKIN JORGE MD [facility] 10-29-2021 09:06-0500 Systolic Blood Pressure NBP [address] ELKIN JORGE MD [facility] 10-29-2021 06:29-0500 Body temperature 97 [degF] [facility] Work Phone: 10-29-2021 06:29-0500 Diastolic blood pressure 67 mm[Hg] [facility] Work Phone: 10-29-2021 06:29-0500 Heart rate 97 /min [facility] Work Phone: 10-29-2021 06:29-0500 Inhaled oxygen flow rate 2 L/min [facility] Work Phone: 10-29-2021 06:29-0500 Respiratory rate 19 /min [facility] Work Phone: 10-29-2021 06:29-0500 SaO2% (BldA) [Mass fraction] 99 % [facility] Work Phone: 10-29-2021 06:29-0500 Systolic blood pressure 120 mm[Hg] [facility] Work Phone: 10-29-2021 05:29-0500 Body temperature 97 [degF] Dr. Sanju Yarbrough Work Phone: [facility] Work Phone: 10-29-2021 05:29-0500 Diastolic blood pressure 67 mm[Hg] Dr. Sanju Yarbrough Work Phone: [facility] Work Phone: 10-29-2021 05:29-0500 Heart rate 97 /min Dr. Sanju Yarbrough Work Phone: [facility] Work Phone: 10-29-2021 05:29-0500 Respiratory rate 19 /min Dr. Sanju Yarbrough Work Phone: [facility] Work Phone: 10-29-2021 05:29-0500 SaO2% (BldA) [Mass fraction] 99 % Dr. Sanju Yarbrough Work Phone: [facility] Work Phone: 10-29-2021 05:29-0500 Systolic blood pressure 120 mm[Hg] Dr. Sanju Yarbrough Work Phone: [facility] Work Phone: 10-29-2021 01:19-0500 Body height 180.[address] [facility] Work Phone: 10-29-2021 01:19-0500 Body mass index (BMI) [Ratio] 34.2 kg/m2 [facility] Work Phone: 10-29-2021 01:19-0500 Body weight 111.[address] [facility] Work Phone: 10-29-2021 00:19-0500 Body height 180.[address] Sanju Yarbrough Work Phone: [facility] Work Phone: 10-29-2021 00:19-0500 Body mass index (BMI) [Ratio] 34.2 kg/m2 Dr. Sanju Yarbrough Work Phone: [facility] Work Phone: 10-29-2021 00:19-0500 Body weight 111.[address] Sanju Yarbrough Work Phone: [facility] Work Phone: 10-21-2021 15:15-0500 Diastolic blood pressure 76 mm[Hg] DR MARY CERRATO MD [facility] 10-21-2021 15:15-0500 Heart rate 84 /min DR MARY CERRATO MD [facility] 10-21-2021 15:15-0500 Mean blood pressure 96 mm[Hg] DR MARY CERRATO MD [facility] 10-21-2021 15:15-0500 Reason For Taking VItal Signs DR MARY CERRATO MD [facility] 10-21-2021 15:15-0500 Respiratory rate 18 /min DR MARY CERRATO MD [facility] 10-21-2021 15:15-0500 Systolic blood pressure 136 mm[Hg] DR MARY CERRATO MD [facility] 10-21-2021 14:43-0500 Heart rate 89 /min DR MARY CERRATO MD [facility] 10-21-2021 14:43-0500 Reason For Taking VItal Signs DR MARY CERRATO MD [facility] 10-21-2021 11:22-0500 Diastolic blood pressure 78 mm[Hg] DR MARY CERRATO MD [facility] 10-21-2021 11:22-0500 Heart rate 86 /min DR MARY CRERATO MD [facility] 10-21-2021 11:22-0500 Mean blood pressure 99 mm[Hg] DR MARY CERRAOT MD [facility] 10-21-2021 11:22-0500 Reason For Taking VItal Signs DR MARY CERRATO MD [facility] 10-21-2021 11:22-0500 Respiratory rate 18 /min DR MARY CERRATO MD [facility] 10-21-2021 11:22-0500 Systolic blood pressure 142 mm[Hg] DR MARY CERRATO MD [facility] 10-21-2021 08:03-0500 Diastolic blood pressure 80 mm[Hg] DR MARY CERRATO MD [facility] 10-21-2021 08:03-0500 Mean blood pressure 100 mm[Hg] DR MARY CERRATO MD [address] [place] [address] 10-21-2021 08:03-0500 Systolic blood pressure 140 mm[Hg] DR MARY CERRATO MD [address] [place] [address] 10-21-2021 07:39-0500 Body temperature 97.52 [degF] DR MARY CERRATO MD [address] 10-21-2021 07:39-0500 Diastolic Blood Pressure NBP [address] MARY CERRATO MD [address] [place] [address] 10-21-2021 07:39-0500 Mean blood pressure 104 mm[Hg] DR MARY CERRATO MD [address] [place] [address] 10-21-2021 07:39-0500 Respiratory rate 18 /min DR MARY CERRATO MD [address] [place] [address] 10-21-2021 07:39-0500 Systolic Blood Pressure NBP [address] MARY CERRATO MD [address] [place] [address] 10-21-2021 03:55-0500 Body temperature 98.42 [degF] DR MARY CERRATO MD [address] 10-21-2021 00:35-0500 Body temperature 98.06 [degF] DR MARY CERRATO MD [address] [place] [address] 10-21-2021 00:35-0500 Diastolic Blood Pressure NBP [address] MARY CERRATO MD [facility] 10-21-2021 00:35-0500 Mean blood pressure 97 mm[Hg] DR MARY CERRATO MD [facility] 10-21-2021 00:35-0500 Systolic Blood Pressure NBP [address] MARY CERRATO MD [address] [place] [address] 10-20-2021 15:15-0500 Diastolic Blood Pressure NBP [address] MARY CERRATO MD [address] [place] [address] 10-20-2021 15:15-0500 Systolic Blood Pressure NBP [address] MARY CERRATO MD [address] [place] [address] 10-20-2021 04:35-0500 Mean blood pressure 83 mm[Hg] DR MARY CERRATO MD [address] [place] [address] 10-17-2021 15:30-0500 Heart rate 90 /min DR MARY CERRATO MD [facility] 10-17-2021 11:37-0500 Heart rate 96 /min DR MARY CERRATO MD [facility] 10-17-2021 11:32-0500 Body temperature 96.26 [degF] DR MARY CERRATO MD [facility] 10-14-2021 22:45-0500 Body temperature 98.78 [degF] DR MARY CERRATO MD [facility] 10-11-2021 07:42-0500 Body temperature 97.7 [degF] DR MARY CERRATO MD [facility] 10-06-2021 07:56-0500 Body height 180.[address] MARY CERRATO MD [facility] 10-06-2021 07:56-0500 Body weight 118.[address] MARY CERRATO MD [facility] 10-06-2021 07:56-0500 Body weight 36.36 kg/m2 DR MARY CERRATO MD [facility] 10-06-2021 06:13-0500 Body temperature 98 [degF] [facility] Work Phone: 10-06-2021 06:13-0500 Diastolic blood pressure 63 mm[Hg] [facility] Work Phone: 10-06-2021 06:13-0500 Heart rate 36 /min [facility] Work Phone: 10-06-2021 06:13-0500 Respiratory rate 18 /min [facility] Work Phone: 10-06-2021 06:13-0500 SaO2% (BldA) [Mass fraction] 97 % [facility] Work Phone: 10-06-2021 06:13-0500 Systolic blood pressure 111 mm[Hg] [facility] Work Phone: 10-06-2021 05:13-0500 Body temperature 98 [degF] Dr. Sanju Yarbrough Work Phone: [facility] Work Phone: 10-06-2021 05:13-0500 Diastolic blood pressure 63 mm[Hg] Dr. Sanju Yarbrough Work Phone: [facility] Work Phone: 10-06-2021 05:13-0500 Heart rate 36 /min Dr. Sanju Yarbrough Work Phone: [facility] Work Phone: 10-06-2021 05:13-0500 Respiratory rate 18 /min Dr. Sanju Yarbrough Work Phone: [facility] Work Phone: 10-06-2021 05:13-0500 SaO2% (BldA) [Mass fraction] 97 % Dr. Sanju Yarbrough Work Phone: [facility] Work Phone: 10-06-2021 05:13-0500 Systolic blood pressure 111 mm[Hg] Dr. Sanju Yarbrough Work Phone: [facility] Work Phone: 10-06-2021 04:07-0500 Body mass index (BMI) [Ratio] 36.3 kg/m2 [facility] Work Phone: 10-06-2021 04:07-0500 Body weight 118.[address] [facility] Work Phone: 10-06-2021 03:07-0500 Body mass index (BMI) [Ratio] 36.3 kg/m2 Dr. Sanju Yarbrough Work Phone: [facility] Work Phone: 10-06-2021 03:07-0500 Body weight 118.[address] Sanju Yarbrough Work Phone: [facility] Work Phone: 09-29-2021 14:00-0500 Heart rate 77 /min Dr. Sanju Yarbrough Work Phone: [facility] [facility] Work Phone: 09-29-2021 13:44-0500 Respiratory rate 27 /min Dr. Sanju Yarbrough Work Phone: [facility] Work Phone: 09-29-2021 13:35-0500 Body temperature 97.7 [degF] Dr. Sanju Yarbrough Work Phone: [facility] Work Phone: 09-29-2021 13:35-0500 Diastolic blood pressure 68 mm[Hg] Dr. Sanju Yarbrough Work Phone: [facility] Work Phone: 09-29-2021 13:35-0500 SaO2% (BldA) [Mass fraction] 94 % Dr. Sanju Yarbrough Work Phone: [facility] Work Phone: 09-29-2021 13:35-0500 Systolic blood pressure 105 mm[Hg] Dr. Sanju Yarbrough Work Phone: [facility] Work Phone: 09-29-2021 05:00-0500 Body weight 114.[address] Sanju Yarbrough Work Phone: [facility] Work Phone: 09-28-2021 06:14-0500 Inhaled oxygen concentration 40 % Dr. Sanju Yarbrough Work Phone: [facility] Work Phone: 09-17-2021 22:26-0500 Body mass index (BMI) [Ratio] 36.6 kg/m2 Dr. Sanju Yarbrough Work Phone: [facility] Work Phone: 09-14-2021 19:00-0500 Body temperature 98.6 [degF] Dr. Sanju Yarbrough Work Phone: [facility] Work Phone: 09-14-2021 19:00-0500 Diastolic blood pressure 71 mm[Hg] Dr. Sanju Yarbrough Work Phone: [facility] Work Phone: 09-14-2021 19:00-0500 Heart rate 66 /min Dr. Sanju Yarbrough Work Phone: [facility] Work Phone: 09-14-2021 19:00-0500 Respiratory rate 18 /min Dr. Sanju Yarbrough Work Phone: [facility] Work Phone: 09-14-2021 19:00-0500 SaO2% (BldA) [Mass fraction] 94 % Dr. Sanju Yarbrough Work Phone: [facility] Work Phone: 09-14-2021 19:00-0500 Systolic blood pressure 118 mm[Hg] Dr. Sanju Yarbrough Work Phone: [facility] Work Phone: 09-14-2021 05:00-0500 Body weight 124.[address] Snaju Yarbrough Work Phone: [facility] Work Phone: 09-11-2021 19:10-0500 Body mass index (BMI) [Ratio] 38.7 kg/m2 Dr. Sanju Yarbrough Work Phone: [facility] Work Phone: 10-29-2018 22:19-0400 Body temperature 37 [facility] Comment on above: Performed By: #### P8 #### [facility] [address] [place], [place] [address] 10-29-2018 18:27-0400 Body temperature 37.0 [facility] Comment on above: Performed By: #### PT #### [facility] [address] [place], [place] [address] Encounters Encounter Date Encounter Type Care Provider Facility Start: 06-26-2025 End: 06-26-2025 ambulatory LATONIA YARBROUGH Facility:[facility] Start: 06-22-2025 ambulatory Rustam Kebede Facility:[facility] Start: 04-29-2025 End: 04-29-2025 Telephone encounter Latonia Yarbrough MD Work Phone: [facility] Comment on above: Coumadin/INR ([facility] 9/ 8 2.4) Start: 04-27-2025 End: 05-19-[address] Rustam Kebede MD -Laboratory Work Phone: Start: 04-27-2025 End: 05-19-[address] Rustam Kebede MD Work Phone: -Laboratory Start: 04-13-2025 End: 04-13-2025 ambulatory Latonia Yarbrough MD Work Phone: [facility] Start: 04-13-2025 End: 04-13-2025 Patient encounter procedure Latonia Yarbrough MD Work Phone: [facility] Comment on above: Population Health Na vigation Outreach ([facility]) Start: 03-16-2025 End: 03-16-2025 Telephone encounter Latonia Yarbrough MD Work Phone: [facility] Comment on above: Coumadin/INR ([facility]) Start: 03-13-2025 End: 03-19-[address] Rustam Kebede MD -Laboratory Work Phone: Start: 03-13-2025 End: 03-19-[address] Rustam Kebede MD Work Phone: -Laboratory Start: 03-12-2025 End: 03-12-2025 ambulatory Latonia Yarbrouhg MD Work Phone: [facility] Start: 03-12-2025 End: 04-13-2025 E-mail encounter from caregiver [facility] Provider [facility] Start: 03-12-2025 End: 04-13-2025 Patient encounter procedure Latonia Yarbrough MD Work Phone: [facility] Comment on above: Population Health Na vigation Outreach ([employer] [place]/) Scheduling Start: 02-10-2025 End: 02-10-2025 [facility] [place] Start: 02-10-2025 End: 02-10-2025 Patient encounter procedure Olegario Retana MA [facility] Comment on above: Population Health Na vigation Outreach ([employer] [facility] [place] [facility]/) Start: 01-28-2025 End: 01-28-2025 ambulatory Latonia Yarbrough MD Work Phone: [facility] Comment on above: Constipation; Nurse Triage Call Start: 01-27-2025 End: 01-27-2025 Telephone encounter Latonia Yarbrough MD Work Phone: [facility] Comment on above: Results (INR [facility] 01/26 (2.4)) Start: 01-26-2025 End: 01-26-[address] Rustam Kebede MD -Laboratory Work Phone: Start: 01-26-2025 End: 01-26-[address] Rustam Kebede MD Work Phone: -Laboratory Start: 01-06-2025 End: 01-06-[address] Rustam Kebede MD -[facility] Work Phone: Start: 01-06-2025 End: 01-06-[address] Rustam Kebeed MD Work Phone: [facility] Work Phone: Start: 01-05-2025 End: 03-07-2025 Follow-up encounter Rebeca Dallas APRN.CNP Work Phone: [facility] Start: 12-31-2024 End: 12-31-2024 ambulatory LATONIA YARBROUGH Facility:[facility] Start: 12-29-2024 End: 12-29-2024 ambulatory Olegario Retana MA [facility] Start: 12-29-2024 End: 12-29-2024 Patient [facility] [place] Comment on above: Population Health Na vigation Outreach [facility] Start: 12-25-2024 End: 12-26-2024 Refill Latonia Yarbrough MD Work Phone: [facility] Comment on above: Refill Request Start: 12-24-2024 End: 12-25-2024 Follow-up encounter Latonia Yarbrough MD Work Phone: [facility] Start: 12-24-2024 End: 12-24-2024 Telephone encounter Latonia Yarbrough MD Work Phone: [facility] Comment on above: Coumadin/INR (Inr 3. 0 12/23/24) Start: 12-23-2024 End: 12-23-[address] Rustam Kebede MD -Laboratory Work Phone: Start: 12-23-[address] Rustam Kebede MD -Laboratory Work Phone: Start: 12-23-2024 End: 12-23-[address] Rustam Kebede MD Work Phone: [facility] Work Phone: Start: 11-20-2024 End: 11-20-2024 ambulatory [facility] [place] Start: 11-20-2024 End: 11-20-2024 Patient encounter procedure Olegario Retana MA [facility] [place] Comment on above: Population Health Na vigation Outreach ([facility] [place] Start: 11-18-2024 End: 11-18-2024 Refill Latonia Yarbrough MD Work Phone: [facility] Comment on above: Refill Request Start: 10-21-2024 End: 10-21-2024 Telephone encounter Latonia Yarbrough MD Work Phone: [facility] Comment on above: Anticoagulation ([facility] INR 2.3 10/21/2024) Start: 10-21-2024 End: 10-21-[address] Rustam Kebede MD -Laboratory Work Phone: Start: 10-21-2024 End: 10-21-[address] Rustam Kebede MD Work Phone: [facility] Work Phone: Start: 09-29-2024 End: 09-29-2024 Refill Rebeca Dallas APRN.EXECUTIVE CREATIVE DIRECTOR Work Phone: [facility] Comment on above: Refill Request Start: 09-03-2024 End: 09-03-2024 Patient encounter procedure Olegario Retana MA [employer] Comment on above: Population Health Na vigation Outreach ([facility]) Start: 09-03-2024 End: 09-03-[address] Rustam Kebede MD -Laboratory Work Phone: Start: 09-03-2024 End: 09-03-2024 ambulatory Olegario Retana MA [employer] Start: 07-22-2024 End: 07-22-2024 Telephone encounter Rebeca Dallas APRN.EXECUTIVE CREATIVE DIRECTOR Work Phone: [facility] Comment on above: Received Outside Med ical Records ([facility] INR 2.9 07/21/2024) Start: 07-21-2024 End: 07-21-[address] Rustam Kebede MD -Laboratory Work Phone: Start: 07-21-2024 End: 07-21-2024 ambulatory Rustam Kebede Facility:[facility] Start: 06-30-2024 End: 07-01-2024 Refill Latonia Yarbrough MD Work Phone: [facility] Comment on above: Refill Request Start: 06-13-2024 End: 06-13-2024 Office outpatient visit 25 minutes Latonia Yarbrough MD Work Phone: [facility] Comment on above: Pre-diabetes (Primar y Dx); Screening for depression; Encounter for screening examination for other mental health and behavioral disorders; Essential hypertension; Encounter for immunization; BMI 40.0-44.9, adult (HCC); Chronic diastolic CHF (congestive heart failure) ([facility]) Start: 05-28-2024 End: 05-28-2024 Telephone encounter Latonia Yarbrough MD Work Phone: [facility] Comment on above: Received Outside Med ical Records ([facility] INR 2.1 05/28/2024) Start: 04-24-2024 End: 04-24-2024 Telephone encounter Latonia Yarbrough MD Work Phone: [facility] Comment on above: Coumadin/INR ([facility] / ) Start: 04-10-2024 End: 04-10-2024 Refill Rebeca April GED PREPARATION TEACHER.EXECUTIVE CREATIVE DIRECTOR Work Phone: [facility] Comment on above: Refill Request Start: 04-03-2024 Refill Diana Hernandez GED PREPARATION TEACHER.EXECUTIVE CREATIVE DIRECTOR Work Phone: [facility] Comment on above: Refill Request Start: 03-25-2024 Telephone encounter Latonia Yarbrough MD Work Phone: [facility] Comment on above: Anticoagulation Start: 02-25-2024 Telephone encounter Latonia Yarbrough MD Work Phone: [facility] Comment on above: Coumadin/INR ([facility] 7/ 8 (2.3)) Start: 02-15-2024 Telephone encounter Latonia Yarbrough MD Work Phone: [facility] Comment on above: Results Start: 01-15-2024 Refill Rebeca April GED PREPARATION TEACHER.EXECUTIVE CREATIVE DIRECTOR Work Phone: [facility] Comment on above: Refill Request Start: 01-15-2024 Telephone encounter Latonia Yarbrough MD Work Phone: [facility] Comment on above: Coumadin/INR ([facility] ) Start: 12-20-2023 Non-patient / Non-visit Dr. Bryan Yarbrough Work Phone: [facility] Work Phone: Start: 12-20-2023 Telephone encounter Latonia Yarbrough MD Work Phone: [facility] Comment on above: Received Outside Med ical Records ([facility] 12/19/23) Start: 12-19-2023 Non-patient / Non-visit Dr. Bryan Yarbrough Work Phone: [facility] Start: 12-19-2023 End: 12-19-[address] Sanju Yarbrough Work Phone: [facility] Work Phone: Start: 12-19-2023 End: 12-19-[address] Sanju Yarbrough Work Phone: [facility] Work Phone: Start: 12-10-2023 Telephone encounter Latonia Yarbrough MD Work Phone: [facility] Comment on above: Coumadin/INR ([facility] IN R 12/09) Start: 12-10-2023 End: 12-18-[address] Sanju Yarbrough Work Phone: [facility] Work Phone: Start: 12-10-2023 End: 12-18-[address] Sanju Yarbrough Work Phone: [facility]-Laboratory Work Phone: Start: 12-07-2023 End: 12-07-2023 Patient encounter procedure Latonia Yarbrough MD Work Phone: [facility] Comment on above: Type 2 diabetes brandon itus with other skin ulcer, without long- term current use of insulin (HCC) (Primary Dx); Obesity, Class I, BMI 30-34.9; Essential hypertension; Chronic diastolic CHF (congestive heart failure) (HCC); Paroxysmal atrial fibrillation (HCC); BMI 40.0-44.9, adult (HCC); prison current use of anticoagulant therapy; Left leg weakness; Mixed hyperlipidemia; Noninfected skin tear of right lower extremity, subsequent encounter Start: 11-08-2023 Telephone encounter Latonia Yarbrough MD Work Phone: [facility] Comment on above: Received Outside Med ical Records ([facility] INR 2.3 11/08/2023) Received Outside Med ical Records Start: 11-08-2023 End: 11-18-[address] Sanju Yarbrough Work Phone: [facility] Work Phone: Start: 11-08-2023 End: 11-18-[address] Sanju Yarbrough Work Phone: [facility]-Laboratory Work Phone: Start: 11-08-2023 End: 11-08-[address] Sanju Yarbrough Work Phone: [facility] Work Phone: Start: 10-08-2023 Telephone encounter Latonia Yarbrough MD Work Phone: [facility] Comment on above: Coumadin/INR ([facility] ) Start: 10-08-2023 End: 10-18-2023 ambulatory [facility] Work Phone: Start: 10-08-2023 End: 10-18-2023 Discharged Recurring [facility] Work Phone: Start: 09-10-2023 End: 09-10-2023 ambulatory [facility] Work Phone: Start: 09-10-2023 End: 09-10-2023 Discharged Recurring [facility] Work Phone: Start: 08-17-2023 End: 08-19-2023 ambulatory [facility] Work Phone: Start: 08-17-2023 End: 08-19-2023 Discharged Recurring [facility] Work Phone: Start: 07-23-2023 Telephone encounter Latonia Yarbrough MD Work Phone: [facility] Comment on above: Received Outside Med ical Records ([facility] INR 3.7) Start: 07-16-2023 Telephone encounter Latonia Yarbrough MD Work Phone: [facility] Comment on above: Coumadin/INR ([facility] (3 .6)) Start: 07-16-2023 End: 07-19-2023 Discharged Recurring [facility] Work Phone: Start: 07-03-2023 Telephone encounter Latonia Yarbrough MD Work Phone: [facility] Comment on above: Received Outside Med ical Records ([facility] INR 3.5 07/02/2023 ) Start: 05-21-2023 End: 05-21-[address] Sanju Yarbrough Work Phone: [facility] Work Phone: Start: 05-21-2023 End: 05-21-[address] Sanju Yarbrough Work Phone: [facility]-Laboratory Work Phone: Start: 05-15-2023 ambulatory Latonia valencia MD Work Phone: [facility] [place] Start: 04-18-2023 End: 04-18-[address] Sanju Yarbrough Work Phone: [facility] Work Phone: Start: 04-18-2023 End: 04-18-[address] Sanju Yarbrough Work Phone: [facility]-Labor[facility] Work Phone: Start: 04-17-2023 Refill Latonia valencia MD Work Phone: [facility] Comment on above: Refill Request Start: 03-28-2023 Telephone encounter Latonia Yarbrough MD Work Phone: [facility] Comment on above: Received Outside Med ical Records ([facility] Visit summary 03/27/2023 cardiovascular follow up ) Start: 03-27-2023 End: 03-27-[address] Sanju Yarbrough Work Phone: [facility] Work Phone: Start: 03-15-2023 End: 03-19-2023 ambulatory [facility] Work Phone: Start: 03-15-2023 End: 03-19-2023 Discharged Recurring [facility] Work Phone: Start: 02-01-2023 Telephone encounter Latonia Yarbrough MD Work Phone: [facility] Comment on above: Coumadin/INR (Result s [facility] 02/01/23) Start: 02-01-2023 End: 02-01-2023 ambulatory [facility] Work Phone: Start: 02-01-2023 End: 02-01-2023 Discharged Recurring [facility] Work Phone: Start: 01-30-2023 Refill Latonia valencia MD Work Phone: [facility] Comment on above: Refill Request Start: 01-22-2023 Refill Latonia valencia MD Work Phone: [facility] Comment on above: Refill Request Start: 01-16-2023 Telephone encounter Latonia Yarbrough MD Work Phone: [facility] Comment on above: Received Outside Med ical Records ([facility] INR 3.2 PROtime 33.1 01/16/2023) Start: 01-16-2023 End: 01-16-[address] Sanju Yarbrough Work Phone: [facility] Work Phone: Start: 01-16-2023 End: 01-16-[address] Sanju Yarbrough Work Phone: [facility]-Laboratory Start: 12-04-2022 Telephone encounter Latonia Yarbrough MD Work Phone: [facility] Comment on above: Received Outside Med ical Records ([facility] INR 3.1) Start: 12-04-2022 End: 12-17-[address] Sanju Yarbrough Work Phone: [facility] Work Phone: Start: 12-04-2022 End: 12-17-[address] Sanju Yarbrough Work Phone: [facility]-Laboratory Start: 11-02-2022 Telephone encounter Latonia Yarbrough MD Work Phone: [facility] Comment on above: Received Outside Med ical Records ([facility] INR 3.0 11/02/2022) Start: 11-02-2022 End: 11-17-[address] Sanju Yarbrough Work Phone: [facility] Work Phone: Start: 11-02-2022 End: 11-17-[address] Sanju Yarbrough [facility] Phone[facility] Start: 09-28-2022 Telephone encounter Latonia Yarbrough MD Work Phone: [facility] Comment on above: Received Outside Med ical Records ([facility]) Start: 09-26-2022 Telephone encounter Latonia Yarbrough MD Work Phone: [facility] Comment on above: Anticoagulation ([facility] INR 3.0 Protime 30.7) Start: 09-26-2022 End: 09-26-[address] Sanju Yarbrough Work Phone: [facility] Start: 09-26-2022 End: 09-26-[address] Sanju Yarbrough Work Phone: [facility] Work Phone: Start: 09-26-2022 End: 09-26-[address] Sanju Yarbrough Work Phone: [facility]-Laboratory Start: 08-31-2022 Telephone encounter Latonia Yarbrough MD Work Phone: [facility] Comment on above: Coumadin/INR ([facility]) Start: 08-31-2022 End: 08-31-2022 ambulatory [facility] Work Phone: Start: 08-31-2022 End: 08-31-2022 Discharged Recurring [facility] Start: 07-27-2022 End: 07-27-2022 ambulatory [facility] Work Phone: Start: 07-27-2022 End: 07-27-2022 Discharged Recurring [facility] Start: 06-29-2022 End: 06-29-2022 Patient encounter procedure Latonia Yarbrough MD Work Phone: [facility] Comment on above: Essential hypertensi on (Primary Dx); Mixed hyperlipidemia; Chronic diastolic CHF (congestive heart failure) (HCC); PATRICIA (obstructive sleep apnea); Obesity, Class I, BMI 30-34.9; Pre-diabetes Start: 06-21-2022 Telephone encounter Latonia Yarbrough MD Work Phone: [facility] Comment on above: Coumadin/INR Start: 06-21-2022 End: 07-19-2022 ambulatory [facility] Work Phone: Start: 06-21-2022 End: 07-19-2022 Discharged Recurring [facility] Start: 05-24-2022 Telephone encounter Latonia Yarbrough MD Work Phone: [facility] Comment on above: Coumadin/INR ([facility]) Start: 05-24-2022 End: 05-24-[address] Sanju Yarbrough Work Phone: [facility] Work Phone: Start: 05-24-2022 End: 05-24-[address] Sanju Yarbrough Work Phone: [facility] Start: 05-03-2022 Telephone encounter Latonia Yarbrough MD Work Phone: [facility] Comment on above: Coumadin/INR ([facility]) Start: 05-03-2022 End: 05-03-[address] Sanju Yarbrough Work Phone: [facility] Work Phone: Start: 05-03-2022 End: 05-03-[address] Sanju Yarbrough Work Phone: [facility] Start: 04-19-2022 End: 04-19-[address] Sanju Yarbrough Work Phone: [facility] Work Phone: Start: 04-19-2022 End: 04-19-[address] Sanju Yarbrough Work Phone[facility] Start: 04-12-2022 Telephone encounter Latonia Yarbrough MD Work Phone: [facility] Comment on above: Outside Labs Results ([facility]) Coumadin/INR ([facility]) Start: 03-16-2022 Telephone encounter Latonia Yarbrough MD Work Phone: [facility] Comment on above: Received Outside Med ical Records ([facility] ) Start: 03-16-2022 End: 03-16-[address] Sanju Yarbrough Work Phone: [facility] Start: 03-08-2022 End: 03-19-[address] Sanju Yarbrough Work Phone[facility] Start: 03-01-2022 Telephone encounter Latonia Yarbrough MD Work Phone: [facility] Comment on above: Coumadin/INR ([facility]) Start: 02-15-2022 Telephone encounter Latonia Yarbrough MD Work Phone: [facility] Comment on above: Coumadin/INR ([facility] la b) Start: 02-15-2022 End: 02-15-2022 Discharged Recurring [facility] Start: 02-08-2022 Telephone encounter Latonia Yarbrough MD Work Phone: [facility] Comment on above: Coumadin/INR ([facility]) Start: 02-08-2022 Registered Recurring [facility] Start: 01-31-2022 Telephone encounter Latonia Yarbrough MD Work Phone: [facility] Practice Comment on above: Received Outside Med ical Records ([facility] discharge summary 01/31/2022) Start: 01-23-2022 Telephone encounter Latonia Yarbrough MD Work Phone: Family Practice Comment on above: Received Outside Med ical Records ([facility] Care Plan of care summary start date 12/20/2021 end 02/17/2022) Orders (from [place] ) Start: 01-17-2022 Telephone encounter Latonia Yarbrough MD Work Phone: [facility] Comment on above: Received Outside Med ical Records (OT discharge summary from [place]) Orders (from [facility]) Orders (reviwed and signed by PCP faxed back to [place]) Start: 01-13-2022 Telephone encounter Latonia Yarbrough MD Work Phone: [facility] Comment on above: Received Outside Med ical Records ([facility] [facility] Start: 01-09-2022 Telephone encounter Latonia Yarbrough MD Work Phone: Family [facility] Comment on above: Patient Update (from [facility]) Start: 01-06-2022 Telephone encounter Latonia Yarbrough MD Work Phone: Family [facility] Comment on above: Orders ([facility] 01/06/2022) Start: 01-03-2022 ambulatory Latonia valencia MD Work Phone: Family [facility] Comment on above: Regarding today's vi sit. 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; Pre-diabetes; Pedal edema Start: 12-29-2021 End: 12-29-[address] OLAMIDE SEGURA MD [facility] Start: 12-26-2021 Telephone encounter Latonia Yarbrough MD Work Phone: Family [facility] Comment on above: Home health update Start: 12-23-2021 Telephone encounter Latonia Yarbrough MD Work Phone: [facility] Comment on above: Received Outside Med ical Records ([facility] Living Records.) Outside Lab Results ([facility] multiple dates) Received Outside Med ical Records (History and physical / discharge summary [facility] 10/29/2021) Outside Lab Results ([facility] 10/29/2021) Start: 12-20-2021 ambulatory Latonia valencia MD Work Phone: [facility] Start: 12-20-2021 End: 12-20-[address] OLAMIDE SEGURA MD [facility] Start: 12-16-2021 End: 12-16-[address] Sanju Yarbrough Work Phone: [facility] Start: 12-12-2021 End: 12-12-[address] Sanju Yarbrough Work Phone: [facility] Start: 12-12-[address] Rita Yarbrough Work Phone: [facility] Start: 12-05-2021 End: 12-05-[address] Sanju Yarbrough Work Phone: [facility] Start: 12-05-[address] Rita Yarbrough Work Phone: [facility] Start: 11-30-2021 End: 11-30-[address] Sanju Yarbrough Work Phone: [facility] Start: 11-30-[address] Rita Yarbrough Work Phone: [facility] Start: 11-29-2021 End: 11-29-[address] Sanju Yarbrough Work Phone: [facility] Start: 11-29-[address] Rita Yarbrough Work Phone: [facility] Start: 11-28-2021 End: 11-28-[address] Sanju Yarbrough Work Phone: [facility] Start: 11-28-[address] Rita Yarbrough Work Phone: [facility] Start: 11-25-2021 End: 11-25-[address] Sanju Yarbrough Work Phone: [facility] Start: 11-25-[address] Rita Yarbrough Work Phone: [facility] Start: 11-21-2021 End: 11-21-[address] Sanju Yarbrough Work Phone: [facility] Start: 11-21-[address] Rita Yarbrough Work Phone: [facility] Start: 11-14-2021 End: 11-14-[address] Sanju Yarbrough Work Phone: [facility] Start: 11-14-[address] Rita Yarbrough Work Phone: [facility] Start: 11-14-2021 End: 11-14-[address] OLAMIDE SEGURA MD [facility] Start: 11-10-2021 End: 11-10-[address] Sanju Yarbrough Work Phone: [facility] Start: 11-10-[address] Rita Yarbrough Work Phone: [facility] Start: 11-07-2021 End: 11-07-[address] Sanju Yarbrough Work Phone: [facility] Start: 11-07-[address] Rita Yarbrough Work Phone: [facility] Start: 10-29-2021 End: 11-02-2021 Evaluation and management of inpatient DR ELKIN JORGE MD [facility] Start: 10-29-2021 End: 10-29-2021 Emergency department patient visit Dr. Sanju Yarbrough Work Phone: [facility] Start: 10-28-2021 End: 10-28-[address] Sanju Yarbrough Work Phone: [facility] Start: 10-28-[address] Rita Yarbrough Work Phone: [facility] Start: 10-24-2021 End: 10-24-[address] Sanju Yarbrough Work Phone: [facility] Start: 10-24-[address] Rita Yarbrough Work Phone: [facility] Start: 10-11-2021 Telephone encounter Latonia Yarbrough MD Work Phone: [facility] Comment on above: Received Outside Med ical Records ([facility] 12 lead EKG 10/06/2021) Start: 10-10-2021 Telephone encounter Latonia Yarbrough MD Work Phone: [facility] Comment on above: Received Outside Med ical Records ([facility] History and Physical 09/17/2021) Start: 10-06-2021 End: 10-21-2021 Evaluation and management of inpatient DR MARY CERRATO MD [facility] Start: 10-06-2021 End: 10-06-2021 Emergency department patient visit Dr. Sanju Yarbrough Work Phone: [facility] Start: 10-03-[address] Rita Yarbrough Work Phone: [facility] Start: 09-30-2021 Telephone encounter Latonia Yarbrough MD Work Phone: [facility] Comment on above: Received Outside Med ical Records (Transfer to extended care [facility] 09/29/2021) Start: 09-30-[address] Rita Yarbrough Work Phone: [facility] Start: 09-29-2021 Telephone encounter Latonia Yarbrough MD Work Phone: [facility] Comment on above: Orders ([facility] home health 09/16/2021) Start: 09-29-2021 Non-patient / Non-visit Dr. Bryan Yarbrough Work Phone: [facility] Start: 09-28-2021 Non-patient / Non-visit Dr. Bryan Yarbrough Work Phone: [facility] Start: 09-28-2021 Non-patient / Non-visit Dr. Bryan Yarbrough Work Phone: [facility] Start: 09-27-2021 Non-patient / Non-visit Dr. Bryan Yarbrough Work Phone: [facility] Start: 09-27-2021 Non-patient / Non-visit Dr. Bryan Yarbrough Work Phone: [facility] Start: 09-26-2021 Non-patient / Non-visit Dr. Bryan Yarbrough Work Phone: [facility] Start: 09-26-2021 Non-patient / Non-visit Dr. Bryan Yarbrough Work Phone: [facility] Start: 09-26-2021 Non-patient / Non-visit Dr. Bryan Yarbrough Work Phone: [facility] Start: 09-25-2021 Non-patient / Non-visit Dr. Bryan Yarbrough Work Phone: [facility] Start: 09-25-2021 Non-patient / Non-visit Dr. Bryan Yarbrough Work Phone: [facility] Start: 09-24-2021 Non-patient / Non-visit Dr. Bryan Yarbrough Work Phone: [facility] Start: 09-24-2021 Non-patient / Non-visit Dr. Bryan Yarbrough Work Phone: [facility] Start: 09-23-2021 Non-patient / Non-visit Dr. Bryan Yarbrough Work Phone: [facility] Start: 09-23-2021 Non-patient / Non-visit Dr. Bryan Yarbrough Work Phone: [facility] Start: 09-22-2021 Non-patient / Non-visit Dr. Bryan Yarbrough Work Phone: [facility] Start: 09-22-2021 Non-patient / Non-visit Dr. Bryan Yarbrough Work Phone: [facility] Start: 09-21-2021 Non-patient / Non-visit Dr. Bryan Yarbrough Work Phone: [facility] Start: 09-21-2021 Non-patient / Non-visit [facility] Start: 09-20-2021 Non-patient / Non-visit Dr. Bryan Yarbrough Work Phone: [facility] Start: 09-20-2021 Non-patient / Non-visit [facility] Bryan [facility]arbrough [facility] Start: 09-19-2021 Telephone encounter Latonia Yarbrough MD Work Phone: [facility] Comment on above: Received Outside Med ical Records (12 lead EKG 09/17/2021 [facility]) Received Outside Med ical Records ([facility] Emergency Summary Visit 09/17/2021) Start: 09-19-2021 Non-patient / Non-visit Dr. Bryan Yarbrough Work Phone: [facility] Start: 09-19-2021 Non-patient / Non-visit Dr. Bryan Yarbrough Work Phone: [facility] Start: 09-18-2021 Non-patient / Non-visit Dr. Bryan Yarbrough Work Phone: [facility] Start: 09-18-2021 Non-patient / Non-visit Dr. Bryan Yarbrough Work Phone: [facility] Start: 09-17-2021 End: 09-29-2021 Evaluation and management of inpatient Dr. Sanju Yarbrough Work Phone: [facility]Pro[facility] Start: 09-16-2021 Non-patient / Non-visit Dr. Bryan Yarbrough Work Phone: [facility] Start: 09-15-2021 Telephone encounter Latonia Yarbrough MD Work Phone: [facility] Comment on above: Received Outside Med ical Records (Discharge Summary (09/11/2021 - 09/14/2021) [facility]) Received Outside Med ical Records (Cardiovascular Services [facility] 09/13/2021) Start: 09-14-2021 Non-patient / Non-visit Dr. Bryan Yarbrough Work Phone: [facility] Start: 09-13-2021 Non-patient / Non-visit Dr. Bryan Yarbrough Work Phone: [facility] Start: 09-12-2021 Telephone encounter Latonia Yarbrough MD Work Phone: [facility] Comment on above: Received Outside Med ical Records ([facility] 09/11/2021 ER Summary) Start: 09-12-2021 Non-patient / Non-visit Dr. Bryan Yarbrough Work Phone: [facility] Start: 09-11-2021 Non-patient / Non-visit Dr. Bryan Yarbrough Work Phone: [facility] [facility] Start: 09-11-2021 End: 09-14-2021 Evaluation and management of inpatient Dr. Sanju Yarbrough Work Phone: [facility]-Medical Surgical 3 Procedures Date Procedure Procedure Detail Performing Clinician Start: 04-27-2025 INR in Platelet poor plasma by Coagulation assay [facility] Provider Start: 03-13-2025 INR in Platelet poor plasma by Coagulation assay [facility] Provider Start: 01-26-2025 INR in Platelet poor plasma by Coagulation assay [facility] Provider Start: 12-23-2024 INR in Platelet poor plasma by Coagulation assay [facility] Provider Start: 10-21-2024 INR in Platelet poor plasma by Coagulation assay [facility] Provider Start: 07-21-2024 INR in Platelet poor plasma by Coagulation assay [facility] Provider Start: 06-13-2024 Hemoglobin A1c/Hemoglobin.total in Blood Latonia Yarbrough MD Work Phone: Start: 06-13-2024 Adult depression scr eening assessment Latonia Yarbrough MD Work Phone: Start: 04-23-2024 INR in Platelet poor plasma by Coagulation assay [facility] Provider Start: 02-25-2024 INR in Platelet poor plasma by Coagulation assay [facility] Provider Start: 02-15-2024 Prothrombin time Gurvinder Yarbrough MD Work Phone: Start: 01-15-2024 INR in Platelet poor plasma by Coagulation assay [facility] Provider Start: 12-10-2023 INR in Platelet poor plasma by Coagulation assay [facility] Provider Start: 11-08-2023 INR in Platelet poor plasma by Coagulation assay [facility] Provider Start: 10-08-2023 INR in Platelet poor plasma by Coagulation assay [facility] Provider Start: 07-16-2023 INR in Platelet poor plasma by Coagulation assay [facility] Provider Start: 07-02-2023 INR in Platelet poor plasma by Coagulation assay [facility] Provider Start: 02-01-2023 INR in Platelet poor plasma by Coagulation assay [facility] Provider Start: 01-16-2023 INR in Platelet poor plasma by Coagulation assay [facility] Provider Start: 09-26-2022 INR in Platelet poor plasma by Coagulation assay [facility] Provider Start: 08-31-2022 INR in Platelet poor plasma by Coagulation assay [facility] Provider Start: 06-21-2022 INR in Platelet poor plasma by Coagulation assay [facility] Provider Start: 05-24-2022 INR in Platelet poor plasma by Coagulation assay [facility] Provider Start: 05-03-2022 INR in Platelet poor plasma by Coagulation assay Latonia Yarbrough MD Work Phone: Start: 04-12-2022 Hepatic function 200 0 panel - Serum or Plasma Latonia Yarbrough MD Work Phone: Start: 04-12-2022 INR in Platelet poor plasma by Coagulation assay Latonia Yarbrough MD Work Phone: Start: 04-12-2022 LIPID PANEL B/O Latonia Yarbrough MD Work Phone: Start: 02-15-2022 INR in Platelet poor plasma by Coagulation assay Latonia Yarbrough MD Work Phone: Start: 02-15-2022 PT/INR - ED (POC) Valeriy Yarbrough MD Work Phone: Start: 02-08-2022 INR in Platelet poor plasma by Coagulation assay Latonia Yarbrough MD Work Phone: Start: 01-03-2022 Prothrombin time Gurvinder Yarbrough MD Work Phone: Start: 01-03-2022 Hemoglobin A1c/Hemoglobin.total in Blood Latonia Yarbrough MD Work Phone: Start: 12-16-[address] Sohail Yarbrough Work Phone: Start: 12-12-2021 INR in Platelet poor plasma by Coagulation assay [facility] Provider Start: 10-29-2021 Bacteria identified in Blood by Culture Dr. Sanju Yarbrough Work Phone: Start: 10-29-[address] Sohail Yarbrough Work Phone: Start: 10-29-2021 End: 10-29-[address] Sanju Yarbrough Work Phone: Start: 10-29-2021 CT of abdomen and pe lvis without contrast Dr. Sanju Yarbrough Work Phone: Start: 10-29-2021 Plain chest X-ray Dr. Renea Yarbrough Work Phone: Start: 10-29-2021 Cholecystostomy usin g fluoroscopic guidance DR OLAMIDE SEGURA MD Comment on above: Percutaneous cholecy stostomy drainage catheter placement with ultrasound and fluoroscopy guidance Start: 10-20-[address] OLAMIDE SEGURA MD Comment on above: Summary: 1. Left ventricle: The cavity size is normal. Wall thickness is normal. Systolic function is normal. 2. Aortic valve: A bioprosthetic valve is present. There is no evidence of a vegetation. There is mild regurgitation. 3. Mitral valve: The annulus is severely calcified. The leaflets are moderately thickened and moderately calcified. There is no evidence of vegetation. There is mild regurgitation. 4. Left atrium: There is no evidence of a thrombus in the atrial cavity or appendage. 5. Right atrium: There is no evidence of a thrombus in the atrial cavity or appendage. Recommendations: 1. No evidence of vegetation on the bioprosthetic aortic valve. 2. No evidence of vegetation on the mitral valve. 3. Pulmonic valve and tricuspid valve could not be well visualized to comment on the presence or the absence of any vegetation. Start: 10-11-[address] SUBHASH SEGURA MD Comment on above: Summary: 1. Procedure narrative: Transthoracic echocardiography was performed. Image quality was suboptimal. 2. Left ventricle: Systolic function is normal. 3. Aortic valve: A bioprosthetic valve is present. 4. Mitral valve: The annulus is severely calcified. Start: 10-06-2021 SARS-CoV-2 Antigen (Rapid) Dr. Sanju Yarbrough Work Phone: Start: 10-06-2021 Plain chest X-ray Dr. Renea Yarbrough Work Phone: Start: 09-29-2021 SARS-CoV-2 Antigen (Rapid) Dr. Sanju Yarbrough Work Phone: Start: 09-26-2021 Plain chest X-ray Dr. Renea Yarbrough Work Phone: Start: 09-26-2021 Plain X-ray abdomen Dr. Sanju Yarbrough Work Phone: Start: 09-17-2021 Streptococcus pneumo niae Antigen (M Dr. Sanju Yarbrough Work Phone: Start: 09-17-2021 Plain chest X-ray Dr. Renea Yarbrough Work Phone: Start: 09-12-[address] Sohail Yarbrough Work Phone: Start: 09-11-2021 Plain x-ray of pelvi s and lower extremity Dr. Sanju Yarbrough Work Phone: Start: 09-11-2021 CT of head without contrast Dr. Sanju Yarbrough Work Phone: Start: 09-11-2021 Plain chest X-ray Dr. Renea Yarbrough Work Phone: Start: 09-11-2021 Bacteria identified in Blood by Culture Dr. Sanju Yarbrough Work Phone: Start: 09-11-2021 SARS-CoV-2 Antigen (Rapid) Dr. Sanju Yarbrough Work Phone: Start: 04-29-2019 Adult depression scr eening assessment Latonia Yarbrough MD Work Phone: Start: 11-26-2018 Electrocardiogram Start: 11-02-2018 History of coronary artery bypass grafting S/P CABG (coronary artery bypass graft) Latonia Yarbrough MD Work Phone: Start: 10-29-2018 History of coronary artery bypass grafting H/O coronary artery bypass surgery Dr. Rustam Kebede MD Comment on above: CABG x 3 RAMOS-LAD, S VG- D1, SVG-OM1 10/29/18 Start: 10-29-2018 Aortic valve replace ment and aortoplasty DR MARY CERRATO MD Start: 10-29-2018 Coronary artery bypass graft DR MARY CERRATO MD Start: 10-26-2018 Antibody screen Comment on above: Performed By: #### P T #### [place] [id number] Start: 08-20-2018 Cataract surgery willard fletchery (qualifier value) DR MARY CERRATO MD Bacteria identified in Blood by Culture Prostatic structure (body structure) DR OLAMIDE SEGURA MD SARS-CoV-2 Antigen (Rapid) Urine culture Viral antigen assay Plan of Treatment Date Care Activity Detail Author Start: 12-24-2028 Urine microalbumin profile [facility] Start: 03-20-2026 DIABETES SCREEN DIABETES SCREEN [facility] Start: 03-20-2026 Diabetes Screening Diabetes Screenin g [facility] Start: 01-01-2026 Hepatitis B screening Urine Al bumin:Creatinine Ratio [facility] Start: 12-31-2025 Hepatitis B surface antibody level LDL Cholesterol [facility] Start: 07-03-2025 Hemoglobin A1c measurement HbA1C [facility] Start: 07-01-2025 End: 07-01-2025 Patient encounter procedure 07/01/2025 1:40 PM EST Office Visit Family Practice [address] [place], [place] [id number] Latonia Yarbrough MD [address] [place] [address] [place], [place] [id number] Wellness, HCC & Care Gap [facility] Comment on above: Wellness, HCC & Care Gap Closure Start: 06-30-2025 DIABETES SCREEN DIABETES SCREEN [facility] Start: 06-13-2025 Anxiety Screening Anxiety Screening [facility] Start: 06-13-2025 Depression Screening Depression Scre ening [facility] Start: 04-20-2025 Influenza vaccination Influenza Vacc ine (#1) [facility] Start: 01-03-2025 DIABETES SCREEN DIABETES SCREEN [facility] Start: 12-12-2024 Hemoglobin A1c measurement HbA1C [facility] Start: 12-09-2024 Hepatitis B surface antibody level LDL Cholesterol [facility] Start: 11-18-2024 End: 02-17-2025 Comprehensive metabolic 2000 panel - Serum or Plasma COMPREHENSIVE METABOLIC PANEL Lab Routine Pre-diabetes Essential hypertension Expected: 11/18/2024, Expires: 02/17/2025 [facility] Comment on above: Expected: 11/18/2024 , Expires: 02/17/2025 Start: 11-18-2024 End: 02-17-2025 Hemoglobin A1c in Blood HEMOGLOBIN A1C Lab Routine Pre-diabetes Expected: 11/18/2024, Expires: 02/17/2025 [facility] Comment on above: Expected: 11/18/2024 , Expires: 02/17/2025 Start: 11-18-2024 End: 02-17-2025 Lipid 1996 panel - Serum or Plasma LIPID PANEL BASIC Lab Routine Essential hypertension Expected: 11/18/2024, Expires: 02/17/2025 [facility] Work Phone: Comment on above: Expected: 11/18/2024 , Expires: 02/17/2025 Start: 11-18-2024 End: 02-17-2025 Microalbumin/Creatinine [Mass Ratio] in Urine ALBUMIN/CREATININE RATIO, URINE Lab Routine Pre-diabetes Expected: 11/18/2024, Expires: 02/17/2025 [facility] Comment on above: Expected: 11/18/2024 , Expires: 02/17/2025 Start: 08-20-2024 Advance Directive Discussion Advance Directive Discussion [facility] Start: 08-20-2024 Medicare Advantage Annual Wellness Visit Medicare Advantage Annual Wellness Visit [facility] Start: 06-13-2024 End: 06-13-2024 Patient encounter procedure 06/13/2024 10:00 AM EDT Office Visit Family Practice [address] [place] [address] [address] [place], [place] [id number] Latonia Yarbrough MD [address] [place], [place] [id number] Six month follow up Family [facility] Comment on above: Six month follow up Start: 06-10-2024 Hemoglobin A1c measurement HbA1C [facility] Start: 04-20-2024 Covid-19 Vaccine () Covid-19 Vaccine () [facility] Start: 04-20-2024 Covid-19 Vaccine () Covid-19 Vaccine () [facility] Start: 04-20-2024 Influenza vaccination Influenza Vacc ine (#1) [facility] Start: 03-20-2024 Hepatitis B surface antibody level LDL CHOLESTEROL [facility] Start: 12-07-2023 End: 03-07-2024 CBC panel - Blood by Automated count COMPLETE BLOOD COUNT Lab Routine Type 2 diabetes mellitus with other skin ulcer, without long-term current use of insulin (HCC) Expected: 12/07/2023, Expires: 03/07/2024 [facility] Work Phone: Comment on above: Expected: 12/07/2023 , Expires: 03/07/2024 Start: 12-07-2023 End: 03-07-2024 Comprehensive metabolic 2000 panel - Serum or Plasma COMPREHENSIVE METABOLIC PANEL Lab Routine Type 2 diabetes mellitus with other skin ulcer, without long-term current use of insulin (HCC) Mixed hyperlipidemia Expected: 12/07/2023, Expires: 03/07/2024 [facility] Work Phone: Comment on above: Expected: 12/07/2023 , Expires: 03/07/2024 Start: 12-07-2023 End: 03-07-2024 Hemoglobin A1c in Blood HEMOGLOBIN A1C Lab Routine Type 2 diabetes mellitus with other skin ulcer, without long-term current use of insulin (HCC) Expected: 12/07/2023, Expires: 03/07/2024 [facility] Work Phone: Comment on above: Expected: 12/07/2023 , Expires: 03/07/2024 Start: 12-07-2023 End: 03-07-2024 Lipid 1996 panel - Serum or Plasma LIPID PANEL BASIC Lab Routine Mixed hyperlipidemia Expected: 12/07/2023, Expires: 03/07/2024 [facility] Work Phone: Comment on above: Expected: 12/07/2023 , Expires: 03/07/2024 Start: 11-02-2023 DIABETES SCREEN DIABETES SCREEN [facility] Start: 09-20-2023 Hemoglobin A1c measurement HbA1C [facility] Start: 08-20-2023 Advance Directive Discussion Advance Directive Discussion [facility] Start: 08-20-2023 Behavioral Health Screening Behavioral Health Screening [facility] Start: 08-20-2023 Depression Assessment Depression Ass essment [facility] Start: 06-30-2023 Hepatitis B surface antibody level LDL CHOLESTEROL [facility] Start: 06-29-2023 COVID-19 VACCINE (5 - Booster for Moderna series) COVID-19 VACCINE (5 - Booster for Moderna series) [facility] Comment on above: Postponed from 12/16 (Declined at this time) Start: 06-29-2023 COVID-19 VACCINE (5 - Booster) COVID-19 VACCINE (5 - Booster) [facility] Comment on above: Postponed from 12/16 (Declined at this time) Start: 06-29-2023 COVID-19 VACCINE (5 - Moderna series) COVID-19 VACCINE (5 - Moderna series) [facility] Comment on above: Postponed from 12/16 (Declined at this time) Start: 05-15-2023 End: 07-15-2023 CBC panel - Blood by Automated count CBC Lab Routine Medication management Expected: 05/15/2023, Expires: 07/15/2023 [facility] Work Phone: Comment on above: Expected: 05/15/2023 , Expires: 07/15/2023 Start: 04-20-2023 Covid-19 Vaccine () Covid-19 Vaccine () [facility] Start: 04-20-2023 Influenza vaccination C [facility] Start: 01-03-2023 ANNUAL PCP TEAM 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 SUBHASH DISEASE VISIT ANNUAL PCP TEAM CHRONIC DISEASE VISIT [facility] [facility] Start: 01-03-2023 BP CONTROLLED (<130/80) BP CONTROLLE D (<130/80) [facility] Start: 08-20-2022 ADVANCE DIRECTIVE DISCUSSION ADVANCE DIRECTIVE DISCUSSION [facility] Start: 08-20-2022 DEPRESSION ASSESSMENT DEPRESSION ASS ESSMENT [facility] Start: 07-12-2022 Hepatitis B surface antibody level LDL CHOLESTEROL [facility] Start: 06-29-2022 End: 08-29-2022 Comprehensive metabolic 2000 panel - Serum or Plasma COMP METABOLIC PANEL Lab Routine Essential hypertension Expected: 06/29/2022, Expires: 08/29/2022 [facility] Work Phone: Comment on above: Expected: 06/29/2022 , Expires: 08/29/2022 Start: 06-29-2022 End: 08-29-2022 Hemoglobin A1c in Blood HGB A1C Lab Routine Pre-diabetes Expected: 06/29/2022, Expires: 08/29/2022 [facility] Work Phone: Comment on above: Expected: 06/29/2022 , Expires: 08/29/2022 Start: 06-29-2022 End: 08-29-2022 Lipid 1996 panel - Serum or Plasma LIPID PANEL BASIC Lab Routine Mixed hyperlipidemia Expected: 06/29/2022, Expires: 08/29/2022 [facility] Work Phone: Comment on above: Expected: 06/29/2022 , Expires: 08/29/2022 Start: 04-20-2022 Influenza vaccination [facility] Start: 12-20-2021 End: 02-19-2022 CBC panel - Blood by Automated count CBC Lab Routine Medication management Expected: 12/20/2021, Expires: 02/19/2022 [facility] Work Phone: Comment on above: Expected: 12/20/2021 , Expires: 02/19/2022 Start: 12-20-2021 End: 02-19-2022 SCHEDULE LAB TESTING SCHEDULE LAB TESTING Lab Routine Expected: 12/20/2021, Expires: 02/19/2022 [facility] Work Phone: Comment on above: Expected: 12/20/2021 , Expires: 02/19/2022 Start: 11-01-2021 ANNUAL 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 TEAM 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 DISEASE VISIT ANNUAL PCP TEAM CHRONIC DISEASE VISIT [facility] Start: 11-01-2021 Hepatitis B screening Urine Al bumin:Creatinine Ratio [facility] Start: 10-29-2021 [facility] Work Phone: Start: 08-20-2021 ADVANCE DIRECTIVE DISCUSSION ADVANCE DIRECTIVE DISCUSSION [facility] Start: 08-20-2021 DEPRESSION ASSESSMENT DEPRESSION ASS ESSMENT [facility] Start: 07-10-2021 FECAL OCCULT BLOOD FECAL OCCULT BLOO D [facility] Start: 04-20-2021 Influenza vaccination INFLUENZA (#1) [facility] Start: 12-16-2020 COVID-19 VACCINE (5 - Booster) COVID-19 VACCINE (5 - Booster) [facility] Start: 04-29-2020 Adult depression screening assessment DEPRESSION SCREENING [facility] Start: 05-13-2019 SHINGRIX VACCINE (3 of 3) SHINGRIX VACCINE (3 of 3) [facility] Start: 2016 RSV Vaccine (1 - 1-d ose 75+ series) RSV Vaccine (1 - 1-dose 75+ series) [facility] Start: 2001 RSV Vaccine (1 - 1-d ose 60+ series) RSV Vaccine (1 - 1-dose 60+ series) [facility] Start: 1959 Anxiety Screening Anxiety Screening [facility] Start: 1959 BP CONTROLLED (<130/80) BP CONTROLLE D (<130/80) [facility] Start: 1959 Depression Screening Depression Scre ening [facility] Start: 1951 Diabetic foot examination Diabetic Foot Exam [facility] Start: 1951 Glaucoma screening Dilated Retinal E xam [facility] INR in Platelet poor plasma by Coagulation assay INR (POC) Lab Today Paroxysmal atrial fibrillation (HCC) S/P 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 Ordered: 01/03/2022 [facility] Work Phone: Comment on above: Ordered: 01/03/2022 Patient referral [facility] Work Phone: [facility] Immunizations Immunization Date Immunization Notes Care Provider Dayami rowland 06-13-2024 influenza, high dose seasonal, preservative-free Latonia Yarbrough MD Work Phone: [facility] 06-13-2024 influenza virus vacc ine, unspecified formulation Rebeca Dallas APRN.CNP Work Phone: [facility] 06-28-2023 influenza (HD-IIV4) vaccine, age 65+ yr, high dose, quadrivalent, PF (FLUZONE HIGH-DOSE) Latonia Yarbrough MD Work Phone: [facility] 06-28-2023 influenza virus vacc ine, unspecified formulation Latonia Yarbrough MD Work Phone: [facility] 06-05-2022 influenza (aIIV4) vaccine, age 65+ yr, quadrivalent, PF (FLUAD QUADRIVALENT) Latonia Yarbrough MD Work Phone: [facility] 06-05-2022 influenza virus vacc ine, unspecified formulation Latonia Yarbrough MD Work Phone: [facility] 01-26-2021 pneumococcal polysaccharide vaccine, 23 valent Latonia Yarbrough MD Work Phone: [facility] 10-21-2020 COVID-19 vaccine, ag e 12+ yr (PFIZER-BIONTECH - PURPLE TOP) Latonia Yarbrough MD Work Phone: [facility] Work Phone: 09-30-2020 COVID-19 vaccine, ag e 12+ yr (PFIZER-BIONTECH - PURPLE TOP) Latonia Yarbrough MD Work Phone: [facility] Work Phone: 06-16-2020 Covid (Moderna) Dr. Sanju Yarbrough Work Phone: [facility] 05-26-2020 Covid (Moderna) Dr. Sanju Yarbrough Work Phone: [facility] 03-18-2019 zoster vaccine recombinant Latonia Yarbrough MD Work Phone: [facility] 12-24-2018 pneumococcal conjuga te vaccine, 13 valent Latonia Yarbrough MD Work Phone: [facility] 12-24-2018 tetanus toxoid, redu gemini diphtheria toxoid, and acellular pertussis vaccine, adsorbed Latonia Yarbrough MD Work Phone: [facility] 12-24-2018 zoster vaccine recombinant Latonia Yarbrough MD Work Phone: [facility] 02-23-2015 pneumococcal conjuga te vaccine, 13 valent Latonia Yarbrough MD Work Phone: [facility] 02-24-2012 zoster vaccine, live Latonia Yarbrough MD Work Phone: [facility] 03-28-2011 pneumococcal polysaccharide vaccine, 23 valent Latonia Yarbrough MD Work Phone: [facility] Payers Date Payer Category Payer Self-pay [id number] 2023 Medicare [employer] MEDICARE A ETNA MEDICARE PPO [id number] 2023-Present [phone] [address] [place] [address] PPO [id number] 2023 Medicare (Managed Care) [employer] MD DICARE [id number] 2023 Private Health Insurance [id number] 2020 Unknown PRIMETIME PRIMET SINGH HMO POS [id number] 2020-Present [phone] [address] [place] [address] O [id number] 2020 Unknown [id number] Medicare [id number] Unknown [id number] Unknown [id number] Unknown [id number] 62 Unknown [id number] 62 Unknown [id number] 62 Unknown [id number] 62 Unknown [id number] 62 Unknown [id number] 62 Unknown [id number] 62 Unknown [id number] 62 Unknown [id number] 62 Social History Date Type Detail Facility [facility] Start: 1940 Sex Assigned At Male A [facility] Start: 11-14-2021 End: 11-08-2023 Never smoked tobacco (finding) [facility] Start: 03-10-2011 End: 06-29-2022 Tobacco use and exposure Smokeless tobacco non-user [facility] Work Phone: Start: 11-01-2020 End: 06-13-2024 Alcohol intake Current non-drinker of alcohol (finding) [facility] Start: 11-21-2018 History SDOH Food Worry 1 [facility] Start: 11-21-2018 History SDOH Transpo rt Med 2 [facility] Start: 12-05-2021 End: 12-15-2021 Exposure to SARS-CoV-2 (event) Unable to assess [facility] Start: 10-29-2021 End: 11-08-2023 Tobacco smoking status NHIS Unknown if ever smoked [facility] Start: 12-18-2020 None [facility] Start: 10-19-2018 Spouse/ Signif icant Other [facility] Start: 12-18-2020 Non-smoker [facility] Start: 12-24-2021 End: 06-29-2022 Exposure to SARS-CoV-2 (event) Not sure [facility] Start: 06-29-2022 End: 05-28-2023 History of Social function [facility] Work Phone: Start: 06-29-2022 End: 05-28-2023 Tobacco use panel [facility] Work Phone: Start: 07-21-2012 Adult Depression Screening Assessment 0 [facility] Work Phone: (I/We) worried wheth er (my/our) food would run out before (I/we) got money to buy more. Never true [facility] Start: 09-24-2020 Gender identity Identifies as male gender (finding) [facility] Start: 09-24-2020 Sexual orientation Heterosexual (fin kimberly) [facility] Start: 11-17-2024 Sex Male (finding) [facility] Medical Equipment Procedure Code Equipment Code Equipment Origin al Text Equipment Identifier Dates Valve Aort Trifecta Gt 23mm - [id number] Start: 10-29-2018 Test blood sugar(s) 1 times daily. Dx: Type 2 DM - Controlled E11.9 Insulin: No [id number], [id number] Start: 11-02-2020 Comment on above: Test blood sugar(s) 1 times daily. Dx: Type 2 DM - Controlled E11.9 Insulin: No Goals Date Patient Goal Desired Activity /State Personal health goal Personal health goal Functional Status Date Assessment Result Facility 12-29-2021 Functional Status Dorothy murrieta 09-29-2021 Functional status Ambulates [facility] Work Phone: 09-14-2021 Functional status Dangle Feet [facility] Work Phone: 09-13-2021 Functional status Rolling Walker [facility] Work Phone: 11-06-2018 Are you deaf, or do you have serious difficulty hearing Yes 11/06/2018 12:20 PM Iram Padgett RN Yes [facility] 11-06-2018 Are you blind, or do you have serious difficulty seeing, even when wearing glasses No 11/06/2018 12:20 PM Iram Padgett RN No [facility] 11-06-2018 Do you have serious difficulty walking or climbing stairs No 11/06/2018 12:20 PM Iram Padgett RN No [facility] 11-06-2018 Do you have difficul ty dressing or bathing No 11/06/2018 12:20 PM Iram Padgett, LOKESH No [facility] 11-06-2018 Because of a physica l, mental, or emotional condition, do you have difficulty doing errands alone such as visiting a physician's office or shopping No 11/06/2018 12:20 PM Iram Padgett RN No [facility] Mental Status Date Assessment Result Facility 10-06-2021 Cognitive function Level Of Cons ciousness Appropriate;Drowsy [facility] Work Phone: 09-29-2021 Cognitive function Voice/Name [facility] Work Phone: 09-14-2021 Cognitive function Voice/Name [facility] Work Phone: 09-13-2021 Cognitive function Appropriate;Cooperativ e [facility] Work Phone: 11-06-2018 Because of a physica l, mental, or emotional condition, do you have serious difficulty concentrating, remembering, or making decisions No 11/06/2018 12:20 PM EDT Iram Post RN No [facility] Clinical Notes 10-29-2018 to 06-16-2025 Telephone Encounter - Jessica Draper LPN - 04/29/2025 10:39 AM EDTTelephone Encounter - Jessica Draper LPN - 04/29/2025 10:39 AM EDTNilton Greco - 04/13/2025 9:04 AM EDT Note Date & Type Note Facility 06-16-2025 Note Patient Outreach (IN TMMN) HARRISON MILLIGAN ([id number]) 1940 M Date Time Provider Department 06/16/25 LATONIA YARBROUGH During your visit today, we recorded the following information about you: Allergies As of Date: 06/16/2025 (No Known Allergies) Date Reviewed: 06/13/2024 Reviewed by: Elke Le LPN - Fully Assessed Visit Diagnosis:Medication management [Z79.899] Order(s):COMPLETE BLOOD COUNT [SQCBC] Order #: [id number] FUTURE Prescriptions as of 06/19/2025 - atorvastatin (LIPITOR) 20 mg tablet Take 1 tablet by mouth once daily. - metFORMIN ER (GLUCOPHAGE XR) 500 mg 24 hr tablet Take 1 tablet by mouth once daily with breakfast - amLODIPine (NORVASC) 10 mg tablet Take 1 tablet by mouth once daily. - magnesium oxide (MAG-OX) 400 mg (241.3 mg magnesium) tablet Take 1 tablet by mouth once daily. - warfarin (COUMADIN) 5 mg tablet Take by mouth 10 mg daily, 15 mg on Sunday per Pt ( [facility] Heart group Dr. Kebede's monitors INR) - bumetanide (BUMEX) 1 mg tablet Take 1 tablet by mouth once daily. - aspirin 81 mg chewable tablet 81 mg. - senna (SENNA) 8.6 mg tab Take 2 tablets by mouth twice daily. - blood sugar diagnostic (BLOOD GLUCOSE TEST) test strip Test blood sugar(s) 1 times daily. Dx: Type 2 DM - Controlled E11.9 Insulin: No - Lancets lancets Test blood sugar(s) 1 times daily. Dx: Type 2 DM - Controlled E11.9 Insulin: No - silver sulfADIAZINE (SILVADENE,THERMAZENE) 1 % cream Apply 1 application to affected area once daily. - MULTIVITAMIN ORAL Take by mouth. Problem List As Of Date 06/16/2025 Noted Resolved Ataxia S/P CVA [I69.993] 03/16/2011 Essential hypertension [I10] 03/28/2011 Mixed hyperlipidemia [E78.2] 03/28/2011 History of stroke [Z86.73] 02/28/2014 BMI 40.0-44.9, adult (HCC) [Z68.41] 02/23/2015 CAD (coronary artery disease) [I25.10] 10/22/2018 NSTEMI (non-ST elevated myocardial infarction) *10/22/2018 Cerebrovascular disease [I67.9] 10/22/2018 Aortic stenosis [I35.0] 10/22/2018 S/P CABG (coronary artery bypass graft) [Z95.1] 11/02/2018 S/P AVR [Z95.2] 11/02/2018 Acute urinary retention [R33.8] 11/04/2018 Paroxysmal atrial fibrillation (HCC) [I48.0] 11/24/2018 Venous ulcer, limited to breakdown of skin (HCC*04/29/2019 Pre-diabetes [R73.03] 05/27/2019 PATRICIA (obstructive sleep apnea) [G47.33] 11/01/2020 Chronic diastolic CHF (congestive heart failure*11/01/2020 Encounter Status:Closed by ERNA SANDERS on 06/19/25 [facility] 04-29-2025 Telephone encount er Note Received inr result 2.4 from [facility]. Placed in provider's inbox for review. Route to MA scanning Entered into pt chart. [facility] 04-29-2025 Miscellaneous Notes Formattin g of this note might be different from the original. Received inr result 2.4 from [facility]. Placed in provider's inbox for review. Route to MA scanning Entered into pt chart. documented in this encounter [facility] 04-13-2025 Note HNO ID: [id number] Author: ?, ?, ? Service: ? Author Type: ? Type: Progress Notes Filed: 04/13/2025 09:23 Note Text: POPULATION HEALTH NAVIGATION OUTREACH Action/FYI Returned Call from spouse: CAMMIE: seen outside of [facility], advised to send appt notes to PCP once completed Wellness: Scheduled Reason for Outreach Returned Call/MyChart Patient Contacted: Spoke to patient/parent/or legal guardian Patient identified by name and date of : Yes Returned call/MyChart actions taken: Patient scheduled/pended orders: 07/01/2025 in [facility] with LATONIA YARBROUGH, HCC AND Care Gap Closure Navigation Signature: Nilton Greco April 13, 2025 9:04 AM [facility] 04-13-2025 History of Presen t illness Narrative POPULATION HEALTH NAVIGATION OUTREACH Action/FYI Returned Call from spouse: CAMMIE: seen outside of [facility], advised to send appt notes to PCP once completed Wellness: Scheduled Reason for Outreach Returned Call/MyChart Patient Contacted: Spoke to patient/parent/or legal guardian Patient identified by name and date of : Yes Returned call/MyChart actions taken: Patient scheduled/pended orders: 07/01/2025 in [facility] with LATONIA YARBROUGH, HCC & Care Gap Closure Navigation Signature: Nilton Greco April 13, 2025 9:04 AM POPULATION HEALTH NAVIGATION OUTREACH Action/ [facility] CAMMIE: Never Done Wellness: Never Done BP: Hypertension Reg ------- Called Patient: Left Voicemail & Sent Mychart Reason for Outreach Care Gap/HCC or Scheduling Wellness Visits Care Gaps due: Medicare Annual Wellness Visit Controlling Blood Pressure Diabetic Eye Exam Patient Contacted: Unable or unnecessary to reach patient: Left message [employer] message sent HCC related Navigation Signature: Nilton Greco April 13, 2025 8:43 AM documented in this encounter [facility] 04-13-2025 Note HNO ID: [id number] Author: ?, ?, ? Service: ? Author Type: ? Type: Progress Notes Filed: 04/13/2025 08:58 Note Text: POPULATION HEALTH NAVIGATION OUTREACH Action/ [facility] CAMMIE: Never Done Wellness: Never Done BP: Hypertension Reg ------- Called Patient: Left Voicemail AND Sent Mychart Reason for Outreach Care Gap/HCC or Scheduling Wellness Visits Care Gaps due: Medicare Annual Wellness Visit Controlling Blood Pressure Diabetic Eye Exam Patient Contacted: Unable or unnecessary to reach patient: Left message MyChart message sent HCC related Navigation Signature: Nilton Greco April 13, 2025 8:43 AM [facility] 04-13-2025 Note Patient Outreach (AICHA TNAV) HARRISON MILLIGAN ([id number]) 1940 M Date Time Provider Department 04/13/25 LATONIA YARBROUGH During your visit today, we recorded the following information about you: Nilton Greco 04/13/2025 8:58 AM Signed POPULATION HEALTH NAVIGATION OUTREACH Action/ - 5 HCC CAMMIE: Never Done Wellness: Never Done BP: Hypertension Reg ------- Called Patient: Left Voicemail AND Sent Mychart Reason for Outreach Care Gap/HCC or Scheduling Wellness Visits Care Gaps due: Medicare Annual Wellness Visit Controlling Blood Pressure Diabetic Eye Exam Patient Contacted: Unable or unnecessary to reach patient: Left message MyChart message sent HCC related Navigation Signature: Nilton Greco April 13, 2025 8:43 AM Nilton Greco 04/13/2025 9:23 AM Signed POPULATION HEALTH NAVIGATION OUTREACH Action/FYI Returned Call from spouse: CAMMIE: seen outside of [facility], advised to send appt notes to PCP once completed Wellness: Scheduled Reason for Outreach Returned Call/MyChart Patient Contacted: Spoke to patient/parent/or legal guardian Patient identified by name and date of : Yes Returned call/MyChart actions taken: Patient scheduled/pended orders: 07/01/2025 in [facility] with LATONIA YARBROUGH - Wellness, HCC AND Care Gap Closure Navigation Signature: Nilton Greco April 13, 2025 9:04 AM Allergies As of Date: 04/13/2025 (No Known Allergies) Date Reviewed: 06/13/2024 Reviewed by: Elke Le LPN - Fully Assessed Reason for Visit: Population Health Navigation Outreach [3910] Cmt: Susanne Gray Prescriptions as of 04/13/2025 - atorvastatin (LIPITOR) 20 mg tablet Take 1 tablet by mouth once daily. - metFORMIN ER (GLUCOPHAGE XR) 500 mg 24 hr tablet Take 1 tablet by mouth once daily with breakfast - amLODIPine (NORVASC) 10 mg tablet Take 1 tablet by mouth once daily. - magnesium oxide (MAG-OX) 400 mg (241.3 mg magnesium) tablet Take 1 tablet by mouth once daily. - warfarin (COUMADIN) 5 mg tablet Take by mouth 10 mg daily, 15 mg on Sunday per Pt ( [facility] Heart group Dr. Kebede's monitors INR) - bumetanide (BUMEX) 1 mg tablet Take 1 tablet by mouth once daily. - aspirin 81 mg chewable tablet 81 mg. - senna (SENNA) 8.6 mg tab Take 2 tablets by mouth twice daily. - blood sugar diagnostic (BLOOD GLUCOSE TEST) test strip Test blood sugar(s) 1 times daily. Dx: Type 2 DM - Controlled E11.9 Insulin: No - Lancets lancets Test blood sugar(s) 1 times daily. Dx: Type 2 DM - Controlled E11.9 Insulin: No - silver sulfADIAZINE (SILVADENE,THERMAZENE) 1 % cream Apply 1 application to affected area once daily. - MULTIVITAMIN ORAL Take by mouth. Problem List As Of Date 04/13/2025 Noted Resolved Ataxia S/P CVA [I69.993] 03/16/2011 Essential hypertension [I10] 03/28/2011 Mixed hyperlipidemia [E78.2] 03/28/2011 History of stroke [Z86.73] 02/28/2014 BMI 40.0-44.9, adult ([facility]) [Z68.41] 02/23/2015 CAD (coronary artery disease) [I25.10] 10/22/2018 NSTEMI (non-ST elevated myocardial infarction) *10/22/2018 Cerebrovascular disease [I67.9] 10/22/2018 Aortic stenosis [I35.0] 10/22/2018 S/P CABG (coronary artery bypass graft) [Z95.1] 11/02/2018 S/P AVR [Z95.2] 11/02/2018 Acute urinary retention [R33.8] 11/04/2018 Paroxysmal atrial fibrillation (HCC) [I48.0] 11/24/2018 Venous ulcer, limited to breakdown of skin (HCC*04/29/2019 Pre-diabetes [R73.03] 05/27/2019 PATRICIA (obstructive sleep apnea) [G47.33] 11/01/2020 Chronic diastolic CHF (congestive heart failure*11/01/2020 Encounter Status:Closed by NILTON GRECO on 04/13/25 [facility] 03-16-2025 Telephone encount er Note Received inr result from [facility]. Placed in provider's inbox for review. Route to MA scanning Entered into pt chart [facility] 03-16-2025 Miscellaneous Notes Formattin g of this note might be different from the original. Received inr result from [facility]. Placed in provider's inbox for review. Route to MA scanning Entered into pt chart documented in this encounter [facility] 03-12-2025 Note HNO ID: [id number] Author: ?, ?, ? Service: ? Author Type: ? Type: Progress Notes Filed: 03/12/2025 15:25 Note Text: POPULATION HEALTH NAVIGATION OUTREACH Action/FYI Patient needs to schedule appt to discuss HCCs, CAMMIE, F/U for BP, and Wellness visit Mychart Sent Reason for Outreach Care Gap/HCC or Scheduling Wellness Visits Care Gaps due: Medicare Annual Wellness Visit Follow-up Appointment Controlling Blood Pressure Diabetic Eye Exam Patient Contacted: Unable or unnecessary to reach patient: [employer] message sent HCC related Navigation Signature: Nilton Greco March 12, 2025 11:29 AM [facility] 03-12-2025 History of Presen t illness Narrative POPULATION HEALTH NAVIGATION OUTREACH Action/FYI Patient needs to schedule appt to discuss HCCs, CAMMIE, F/U for BP, and Wellness visit Mychart Sent Reason for Outreach Care Gap/HCC or Scheduling Wellness Visits Care Gaps due: Medicare Annual Wellness Visit Follow-up Appointment Controlling Blood Pressure Diabetic Eye Exam Patient Contacted: Unable or unnecessary to reach patient: [employer] message sent HCC related Navigation Signature: Nilton Greco March 12, 2025 11:29 AM documented in this encounter [facility] 03-12-2025 Note Patient Outreach (AICHA TNCHARLEY) HARRISON MILLIGAN ([id number]) 1940 M Date Time Provider Department 03/12/25 LATONIA YARBROUGH During your visit today, we recorded the following information about you: Nilton Greco 03/12/2025 3:25 PM Addendum POPULATION HEALTH NAVIGATION OUTREACH Action/FYI Patient needs to schedule appt to discuss HCCs, CAMMIE, F/U for BP, and Wellness visit Mychart Sent Reason for Outreach Care Gap/HCC or Scheduling Wellness Visits Care Gaps due: Medicare Annual Wellness Visit Follow-up Appointment Controlling Blood Pressure Diabetic Eye Exam Patient Contacted: Unable or unnecessary to reach patient: [employer] message sent HCC related Navigation Signature: Nilton Greco March 12, 2025 11:29 AM Allergies As of Date: 03/12/2025 (No Known Allergies) Date Reviewed: 06/13/2024 Reviewed by: Elke Le LPN - Fully Assessed Reason for Visit: Population Health Navigation Outreach [3910] Cmt: Susanne Gray Prescriptions as of 03/12/2025 - atorvastatin (LIPITOR) 20 mg tablet Take 1 tablet by mouth once daily - metFORMIN ER (GLUCOPHAGE XR) 500 mg 24 hr tablet Take 1 tablet by mouth once daily with breakfast - amLODIPine (NORVASC) 10 mg tablet Take 1 tablet by mouth once daily. - magnesium oxide (MAG-OX) 400 mg (241.3 mg magnesium) tablet Take 1 tablet by mouth once daily. - warfarin (COUMADIN) 5 mg tablet Take by mouth 10 mg daily, 15 mg on Sunday per Pt ( [facility] Heart group Dr. [employer] [facility] INR) - bumetanide (BUMEX) 1 mg tablet Take 1 tablet by mouth once daily. - aspirin 81 mg chewable tablet 81 mg. - senna (SENNA) 8.6 mg tab Take 2 tablets by mouth twice daily. - blood sugar diagnostic (BLOOD GLUCOSE TEST) test strip Test blood sugar(s) 1 times daily. Dx: Type 2 DM - Controlled E11.9 Insulin: No - Lancets lancets Test blood sugar(s) 1 times daily. Dx: Type 2 DM - Controlled E11.9 Insulin: No - silver sulfADIAZINE (SILVADENE,THERMAZENE) 1 % cream Apply 1 application to affected area once daily. - MULTIVITAMIN ORAL Take by mouth. Problem List As Of Date 03/12/2025 Noted Resolved Ataxia S/P CVA [I69.993] 03/16/2011 Essential hypertension [I10] 03/28/2011 Mixed hyperlipidemia [E78.2] 03/28/2011 History of stroke [Z86.73] 02/28/2014 BMI 40.0-44.9, adult (HCC) [Z68.41] 02/23/2015 CAD (coronary artery disease) [I25.10] 10/22/2018 NSTEMI (non-ST elevated myocardial infarction) *10/22/2018 Cerebrovascular disease [I67.9] 10/22/2018 Aortic stenosis [I35.0] 10/22/2018 S/P CABG (coronary artery bypass graft) [Z95.1] 11/02/2018 S/P AVR [Z95.2] 11/02/2018 Acute urinary retention [R33.8] 11/04/2018 Paroxysmal atrial fibrillation (HCC) [I48.0] 11/24/2018 Venous ulcer, limited to breakdown of skin (HCC*04/29/2019 Pre-diabetes [R73.03] 05/27/2019 PATRICIA (obstructive sleep apnea) [G47.33] 11/01/2020 Chronic diastolic CHF (congestive heart failure*11/01/2020 Encounter Status:Closed by NILTON GRECO on 03/12/25 [facility] 02-10-2025 Note HNO ID: [id number] Author: OLEGARIO RETANA MA Service: ? 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 Type: Progress Notes Filed: 02/10/2025 09:17 Note Text: POPULATION HEALTH NAVIGATION OUTREACH Action/FYI Patient is on [employer] list for below and needs appointment to address: Dilated Retinal Exam Diabetic Foot Exam RSV Vaccine(1 - 1-dose 75+ series) Covid-19 Vaccine() Advance Directive Discussion Medicare Advantage Annual Wellness Visit Hemoglobin A1C (%) Date Value 12/31/2024 5.9 11/01/2020 6.5 Hemoglobin A1C (POCT) (%) Date Value 06/13/2024 5.9 Last 1 Encounter BP Readings: Date: BP: 06/13/2024 144/78 Patient due for: Medicare Annual Wellness Visit Follow up Appointment - RTO: 6 months from OV Controlling Blood Pressure Diabetic Eye Exam MyChart Active: Yes Left message for patient to call back. Sent mychart message. HCC: Yes Reason for Outreach Care Gap/HCC or Scheduling Wellness Visits Care Gaps due: Medicare Annual Wellness Visit Follow-up Appointment Controlling Blood Pressure Diabetic Eye Exam Patient Contacted: Unable or unnecessary to reach patient: Left message MyChart message sent HCC related Navigation Signature: Olegario Retana MA February 10, 2025 7:38 AM [facility] 02-10-2025 History of Presen t illness Narrative POPULATION HEALTH NAVIGATION OUTREACH Action/FYI Patient is on [email or web address] list for below and needs appointment to address: Dilated Retinal Exam Diabetic Foot Exam RSV Vaccine(1 - 1-dose 75+ series) Covid-19 Vaccine( season) Advance Directive Discussion Medicare Advantage Annual Wellness Visit Hemoglobin A1C (%) Date Value 12/31/2024 5.9 11/01/2020 6.5 Hemoglobin A1C (POCT) (%) Date Value 06/13/2024 5.9 Last 1 Encounter BP Readings: Date: BP: 06/13/2024 144/78 Patient due for: Medicare Annual Wellness Visit Follow up Appointment - RTO: 6 months from OV Controlling Blood Pressure Diabetic Eye Exam MyChart Active: Yes Left message for patient to call back. Sent mychart message. HCC: Yes Reason for Outreach Care Gap/HCC or Scheduling Wellness Visits Care Gaps due: Medicare Annual Wellness Visit Follow-up Appointment Controlling Blood Pressure Diabetic Eye Exam Patient Contacted: Unable or unnecessary to reach patient: Left message MyChart message sent HCC related Navigation Signature: Olegario Retana MA February 10, 2025 7:38 AM documented in this encounter [facility] 02-10-2025 Note Patient Outreach (NE TNAV) HARRISON MILLIGAN ([id number]) 1940 M Date Time Provider Department 02/10/25 OLEGARIO RETANA During your visit today, we recorded the following information about you: Olegario Retana MA 02/10/2025 9:17 AM Signed POPULATION HEALTH NAVIGATION OUTREACH Action/ Patient is on [employer]anne [employer] list for below and needs appointment to address: Dilated Retinal Exam Diabetic Foot Exam RSV Vaccine(1 - 1-dose 75+ series) Covid-19 Vaccine(2023- season) Advance Directive Discussion Medicare Advantage Annual Wellness Visit Hemoglobin A1C (%) Date Value 12/31/2024 5.9 11/01/2020 6.5 Hemoglobin A1C (POCT) (%) Date Value 06/13/2024 5.9 Last 1 Encounter BP Readings: Date: BP: 06/13/2024 144/78 Patient due for: Medicare Annual Wellness Visit Follow up Appointment - RTO: 6 months from OV Controlling Blood Pressure Diabetic Eye Exam [employer] Active: Yes Left message for patient to call back. Sent [employer] message. HCC: Yes Reason for Outreach Care Gap/HCC or Scheduling Wellness Visits Care Gaps due: Medicare Annual Wellness Visit Follow-up Appointment Controlling Blood Pressure Diabetic Eye Exam Patient Contacted: Unable or unnecessary to reach patient: Left message [employer] message sent HCC related Navigation Signature: Olegario Retana MA February 10, 2025 7:38 AM Allergies As of Date: 02/10/2025 (No Known Allergies) Date Reviewed: 06/13/2024 Reviewed by: Elke Le LPN - Fully Assessed Reason for Visit: Population Health Navigation Outreach [3910] Cmt: Susanne Martinez - [place] PCSA Prescriptions as of 02/10/2025 - atorvastatin (LIPITOR) 20 mg tablet Take 1 tablet by mouth once daily - metFORMIN ER (GLUCOPHAGE XR) 500 mg 24 hr tablet Take 1 tablet by mouth once daily with breakfast - amLODIPine (NORVASC) 10 mg tablet Take 1 tablet by mouth once daily. - magnesium oxide (MAG-OX) 400 mg (241.3 mg magnesium) tablet Take 1 tablet by mouth once daily. - warfarin (COUMADIN) 5 mg tablet Take by mouth 10 mg daily, 15 mg on Sunday per Pt ( [facility] Heart group Dr. [employer] monitors INR) - bumetanide (BUMEX) 1 mg tablet Take 1 tablet by mouth once daily. - aspirin 81 mg chewable tablet 81 mg. - senna (SENNA) 8.6 mg tab Take 2 tablets by mouth twice daily. - blood sugar diagnostic (BLOOD GLUCOSE TEST) test strip Test blood sugar(s) 1 times daily. Dx: Type 2 DM - Controlled E11.9 Insulin: No - Lancets lancets Test blood sugar(s) 1 times daily. Dx: Type 2 DM - Controlled E11.9 Insulin: No - silver sulfADIAZINE (SILVADENE,THERMAZENE) 1 % cream Apply 1 application to affected area once daily. - MULTIVITAMIN ORAL Take by mouth. Problem List As Of Date 02/10/2025 Noted Resolved Ataxia S/P CVA [I69.993] 03/16/2011 Essential hypertension [I10] 03/28/2011 Mixed hyperlipidemia [E78.2] 03/28/2011 History of stroke [Z86.73] 02/28/2014 BMI 40.0-44.9, adult ([facility]) [Z68.41] 02/23/2015 CAD (coronary artery disease) [I25.10] 10/22/2018 NSTEMI (non-ST elevated myocardial infarction) *10/22/2018 Cerebrovascular disease [I67.9] 10/22/2018 Aortic stenosis [I35.0] 10/22/2018 S/P CABG (coronary artery bypass graft) [Z95.1] 11/02/2018 S/P AVR [Z95.2] 11/02/2018 Acute urinary retention [R33.8] 11/04/2018 Paroxysmal atrial fibrillation (HCC) [I48.0] 11/24/2018 Venous ulcer, limited to breakdown of skin (HCC*04/29/2019 Pre-diabetes [R73.03] 05/27/2019 PATRICIA (obstructive sleep apnea) [G47.33] 11/01/2020 Chronic diastolic CHF (congestive heart failure*11/01/2020 Encounter Status:Closed by OLEGARIO RETANA on 02/10/25 [facility] 01-28-2025 Telephone encount er Note Patient's LVMaryanne; reports patient is constipated, has not had a bowel movement in several days. Have been giving miralax without relief, asking for a call back and next steps. Called and spoke with patient Francisca Normal pattern is every couple of days Patient admitted to [facility] a week ago that hadn't had a BM a several days got patient started on Miralax Reports hearing grunting and straining, patient has not reported any Denies abdominal pain Admits not having a good diet, but no change as a cause Drinks water, milk, OJ and diet soda; unsure of exact volume per day Patient take Senna twice a day Last known BM was 10-11 days ago Scheduled OV for tomorrow, discussed home care of use of osmotic laxative along with stimulant laxative; Francisca voiced understanding. Discussed reasons to call office back. Reason for Disposition Last bowel movement (BM) > 4 days ago Protocols used: [id number] [facility] 01-28-2025 Miscellaneous Notes Formattin g of this note might be different from the original. Patient's LVMaryanne; reports patient is constipated, has not had a bowel movement in several days. Have been giving miralax without relief, asking for a call back and next steps. Called and spoke with patient Francisca romero Normal pattern is every couple of days Patient admitted to [facility] a week ago that hadn't had a BM a several days got patient started on Miralax Reports hearing grunting and straining, patient has not reported any Denies abdominal pain Admits not having a good diet, but no change as a cause Drinks water, milk, OJ and diet soda; unsure of exact volume per day Patient take Senna twice a day Last known BM was 10-11 days ago Scheduled OV for tomorrow, discussed home care of use of osmotic laxative along with stimulant laxative; Francisca voiced understanding. Discussed reasons to call office back. Reason for Disposition Last bowel movement (BM) > 4 days ago Protocols used: [id number] documented in this encounter [facility] 01-27-2025 Telephone encount er Note Received inr result 2.4 from [facility]. Placed in provider's inbox for review. Route to MA scanning Entered into pt chart [facility] 01-27-2025 Miscellaneous Notes Formattin g of this note might be different from the original. Received inr result 2.4 from [facility]. Placed in provider's inbox for review. Route to MA scanning Entered into pt chart documented in this encounter [facility] 01-06-2025 Evaluation note Diagnosis Onset Date Resolution Essential (primary) hypertension chronic January 06, 2025 9:46am H/O aortic valve replacement October 29, 2018 chronic January 06, 2025 9:46am H/O coronary artery bypass surgery October 29, 2018 chronic January 06, 2025 9:46am Left ventricular diastolic dysfunction chronic January 06, 2025 9:46am Paroxysmal atrial fibrillation chronic January 06, 2025 9:46am [facility] Work Phone: 1(654) 834-211805-12-2025 NoteHNO ID: [id number] Author: OLEGARIO RETANA MA Service: ? 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 Type: Progress Notes Filed: 12/30/2024 13:42 Note Text: POPULATION HEALTH NAVIGATION OUTREACH Action/FYI Patient is on [employer] list for below and needs appointment to address: Dilated Retinal Exam Diabetic Foot Exam RSV Vaccine(1 - 1-dose 75+ series) Urine Albumin:Creatinine Ratio Covid-19 Vaccine( season) Advance Directive Discussion LDL Cholesterol Hemoglobin A1C (%) Date Value 11/01/2020 6.5 Hemoglobin A1C (POCT) (%) Date Value 06/13/2024 5.9 Patient due for: Medicare Annual Wellness Visit Follow up Appointment - RTO: 6 months from 05/2024 OV Diabetic Eye Exam A1C - already ordered KED - already ordered MyChart Active: Yes Left message for patient to call back. Sent [employer] message. HCC: Yes Reason for Outreach Care Gap/HCC or Scheduling Wellness Visits Care Gaps due: Medicare Annual Wellness Visit Follow-up Appointment Diabetic Eye Exam HBA1C KED Patient Contacted: Unable or unnecessary to reach patient: Left message MyChart message sent HCC related Navigation Signature: Olegario Retana MA December 29, 2024 1:08 [facility]05-12-2025 History of Present illness Narrative* Olegario Retana MA - 12/29/2024 1:08 PM EDT POPULATION HEALTH NAVIGATION OUTREACH Action/I Patient is on [email or web address] list for below and needs appointment to address: Dilated Retinal Exam Diabetic Foot Exam RSV Vaccine(1 - 1-dose 75+ series) Urine Albumin:Creatinine Ratio Covid-19 Vaccine( season) Advance Directive Discussion LDL Cholesterol Hemoglobin A1C (%) Date Value 11/01/2020 6.5 Hemoglobin A1C (POCT) (%) Date Value 06/13/2024 5.9 Patient due for: Medicare Annual Wellness Visit Follow up Appointment - RTO: 6 months from 05/2024 OV Diabetic Eye Exam A1C - already ordered KED - already ordered MyChart Active: Yes Left message for patient to call back. Sent [employer] message. HCC: Yes Reason for Outreach Care Gap/HCC or Scheduling Wellness Visits Care Gaps due: Medicare Annual Wellness Visit Follow-up Appointment Diabetic Eye Exam HBA1C KED Patient Contacted: Unable or unnecessary to reach patient: Left message [employer] message sent Navigation Signature: Olegario Retana MA December 29, 2024 1:08 PM [facility] NotePatient Outreach (NETNAV) HARRISON MILLIGAN ([id number]) 1940 M Date Time Provider Department 12/29/24 OLEGARIO RETANA During your visit today, we recorded the following information about you: Olegario Retana MA 12/30/2024 1:42 PM Addendum POPULATION HEALTH NAVIGATION OUTREACH Action/FYI [facility] and needs appointment to address: Dilated Retinal Exam Diabetic Foot Exam RSV Vaccine(1 - 1-dose 75+ series) Urine Albumin:Creatinine Ratio Covid-19 Vaccine( season) Advance Directive Discussion LDL Cholesterol Hemoglobin A1C (%) Date Value 11/01/2020 6.5 Hemoglobin A1C (POCT) (%) Date Value 06/13/2024 5.9 Patient due for: Medicare Annual Wellness Visit Follow up Appointment - RTO: 6 months from 05/2024 OV Diabetic Eye Exam A1C - already ordered KED - already ordered MyChart Active: Yes Left message for patient to call back. Sent [employer] message. HCC: Yes Reason for Outreach Care Gap/HCC or Scheduling Wellness Visits Care Gaps due: Medicare Annual Wellness Visit Follow-up Appointment Diabetic Eye Exam HBA1C KED Patient Contacted: Unable or unnecessary to reach patient: Left message [employer] message sent HCC related Navigation Signature: Olegario Retana MA December 29, 2024 1:08 PM Allergies As of Date: 12/29/2024 (No Known Allergies) Date Reviewed: 06/13/2024 Reviewed by: Elke Le LPN - Fully Assessed Reason for Visit: Population Health Navigation Outreach [3910] Cmt: [facility] PCSA Prescriptions as of 12/30/2024 - atorvastatin (LIPITOR) 20 mg tablet Take 1 tablet by mouth once daily - metFORMIN ER (GLUCOPHAGE XR) 500 mg 24 hr tablet Take 1 tablet by mouth once daily with breakfast - amLODIPine (NORVASC) 10 mg tablet Take 1 tablet by mouth once daily. - magnesium oxide (MAG-OX) 400 mg (241.3 mg magnesium) tablet Take 1 tablet by mouth once daily. - warfarin (COUMADIN) 5 mg tablet Take by mouth 10 mg daily, 15 mg on Luis per Pt ( [facility] Heart group Dr. [employer] monitors INR) - bumetanide (BUMEX) 1 mg tablet Take 1 tablet by mouth once daily. - aspirin 81 mg chewable tablet 81 mg. - senna (SENNA) 8.6 mg tab Take 2 tablets by mouth twice daily. - blood sugar diagnostic (BLOOD GLUCOSE TEST) test strip Test blood sugar(s) 1 times daily. Dx: Type 2 DM - Controlled E11.9 Insulin: No - Lancets lancets Test blood sugar(s) 1 times daily. Dx: Type 2 DM - Controlled E11.9 Insulin: No - silver sulfADIAZINE (SILVADENE,THERMAZENE) 1 % cream Apply 1 application to affected area once daily. - MULTIVITAMIN ORAL Take by mouth. Problem List As Of Date 12/29/2024 Noted Resolved Ataxia S/P CVA [I69.993] 03/16/2011 Essential hypertension [I10] 03/28/2011 Mixed hyperlipidemia [E78.2] 03/28/2011 History of stroke [Z86.73] 02/28/2014 BMI 40.0-44.9, adult (HCC) [Z68.41] 02/23/2015 CAD (coronary artery disease) [I25.10] 10/22/2018 NSTEMI (non-ST elevated myocardial infarction) *10/22/2018 Cerebrovascular disease [I67.9] 10/22/2018 Aortic stenosis [I35.0] 10/22/2018 S/P CABG (coronary artery bypass graft) [Z95.1] 11/02/2018 S/P AVR [Z95.2] 11/02/2018 Acute urinary retention [R33.8] 11/04/2018 Paroxysmal atrial fibrillation (HCC) [I48.0] 11/24/2018 Venous ulcer, limited to breakdown of skin (HCC*04/29/2019 Pre-diabetes [R73.03] 05/27/2019 PATRICIA (obstructive sleep apnea) [G47.33] 11/01/2020 Chronic diastolic CHF (congestive heart failure*11/01/2020 Encounter Status:Closed by OLEGARIO RETANA on 12/29/24[facility]05-09[facility]2025 Telephone encounter Note* Telephone Encounter - Latonia Yarbrough MD - 12/26/2024 1:31 PM EDT The following approved medication requests have been transmitted electronically. Requested Prescriptions Signed Prescriptions Disp Refills metFORMIN ER (GLUCOPHAGE XR) 500 mg 24 hr tablet 90 tablet 1 Sig: Take 1 tablet by mouth once daily with breakfast Authorizing Provider: LATONIA YARBROUGH MD [facility]05-09-2025 Miscellaneous Notes* Telephone Encounter - Latonia Yarbrough MD - 12/26/2024 1:31 PM EDT The following approved medication requests have been transmitted electronically. Requested Prescriptions Signed Prescriptions Disp Refills metFORMIN ER (GLUCOPHAGE XR) 500 mg 24 hr tablet 90 tablet 1 Sig: Take 1 tablet by mouth once daily with breakfast Authorizing Provider: LATONIA YARBROUGH MD * Telephone Encounter - Melba Calhoun LPN - 12/26/2024 11:52 AM EDT Prescription Refill Information The patient has been identified by name and date of : Yes Caregiver verified no other encounters exist for this prescription request: Yes Caregiver confirmed with patient/requestor that no other refills are due, in the near future, with this provider at this time: Yes The last office visit in the department: 06/13/24 Does the patient have a future office visit with this provider/department: No Requested Prescriptions Pending Prescriptions Disp Refills metFORMIN ER (GLUCOPHAGE XR) 500 mg 24 hr tablet [Pharmacy Med Name: metFORMIN HCl ER 500 MG Oral Tablet Extended Release 24 Hour] 90 tablet 0 Sig: Take 1 tablet by mouth once daily with breakfast Melba Calhoun LPN December 26, 2024 11:52 AM [facility] Telephone encounter Note * Telephone Encounter - Melba Calhoun LPN - 12/26/2024 11:52 AM EDT Prescription Refill Information The patient has been identified by name and date of : Yes Caregiver verified no other encounters exist for this prescription request: Yes Caregiver confirmed with patient/requestor that no other refills are due, in the near future, with this provider at this time: Yes The last office visit in the department: 06/13/24 Does the patient have a future office visit with this provider/department: No Requested Prescriptions Pending Prescriptions Disp Refills metFORMIN ER (GLUCOPHAGE XR) 500 mg 24 hr tablet [Pharmacy Med Name: metFORMIN HCl ER 500 MG Oral Tablet Extended Release 24 Hour] 90 tablet 0 Sig: Take 1 tablet by mouth once daily with breakfast Melba Calhoun LPN December 26, 2024 11:52 AM [facility]05-09-2025 Telephone encounter Note* Telephone Encounter - Deedee Kitchen RN - 12/26/2024 11:17 AM EDT MyChart message sent. Office to ensure MyChart message read. [facility]05-09-2025 Miscellaneous Notes* Telephone Encounter - Deedee Kitchen RN - 12/26/2024 11:17 AM EDT MyChart message sent. Office to ensure MyChart message read. * Telephone Encounter - Latonia Yarbrough MD - 12/26/2024 10:17 AM EDT He has open order for fasting lab. OK 1 fill. Lab before further fills. The following approved medication requests have been transmitted electronically. Requested Prescriptions Signed Prescriptions Disp Refills atorvastatin (LIPITOR) 20 mg tablet 90 tablet 0 Sig: Take 1 tablet by mouth once daily Authorizing Provider: LATONIA YARBROUGH MD * Telephone Encounter - Tiffanie Rucker MA - 12/26/2024 10:13 AM EDT [facility] Patient has been identified by name and date of : Yes Patient aware RX will be sent to pharmacy. No need to notify patient. Pharmacy phones for refill(s): Requested Prescriptions Pending Prescriptions Disp Refills atorvastatin (LIPITOR) 20 mg tablet [Pharmacy Med Name: Atorvastatin Calcium 20 MG Oral Tablet] 90 tablet 0 Sig: Take 1 tablet by mouth once daily Date of last office visit : 06/13/2024 Date of next office visit : Visit date not found Last 2 Encounter Wt Readings: Date: Wt: 06/13/2024 129 kg (284 lb 6.3 oz) 12/07/2023 122.8 kg (270 lb 11.6 oz) Please advise. Tiffanie Rucker MA [facility] Telephone encounter Note * Telephone Encounter - Latonia Yarbrough MD - 12/26/2024 10:17 AM EDT He has open order for fasting lab. OK 1 fill. Lab before further fills. The following approved medication requests have been transmitted electronically. Requested Prescriptions Signed Prescriptions Disp Refills atorvastatin (LIPITOR) 20 mg tablet 90 tablet 0 Sig: Take 1 tablet by mouth once daily Authorizing Provider: LATONIA YARBROUGH MD [facility]05-09-2025 Telephone encounter Note* Telephone Encounter - Tiffanie Rucker MA - 12/26/2024 10:13 AM EDT [facility] Patient has been identified by name and date of : Yes Patient aware RX will be sent to pharmacy. No need to notify patient. Pharmacy phones for refill(s): Requested Prescriptions Pending Prescriptions Disp Refills atorvastatin (LIPITOR) 20 mg tablet [Pharmacy Med Name: Atorvastatin Calcium 20 MG Oral Tablet] 90 tablet 0 Sig: Take 1 tablet by mouth once daily Date of last office visit : 06/13/2024 Date of next office visit : Visit date not found Last 2 Encounter Wt Readings: Date: Wt: 06/13/2024 129 kg (284 lb 6.3 oz) 12/07/2023 122.8 kg (270 lb 11.6 oz) Please advise. Tiffanie Rucker MA [facility]05-08-2025 Telephone encounter Note* Telephone Encounter - Jessica Draper LPN - 12/25/2024 2:14 PM EDT [employer] manages. [facility]05-08-2025 Miscellaneous Notes* Telephone Encounter - Jessica Draper LPN - 12/25/2024 2:14 PM EDT [employer]. [facility] Telephone encounter Note * Telephone Encounter - Jessica Draper LPN - 12/24/2024 4:31 PM EDT Received inr result 3.0 12/23/24 from [facility]. Placed in provider's inbox for review. Route to MA scanning Entered into pt chart [facility]05-07-2025 Miscellaneous Notes* Telephone Encounter - Jessica Draper LPN - 12/24/2024 4:31 PM EDT Received inr result 3.0 12/23/24 [address] [facility]. Placed in provider's inbox for review. Route to MA scanning Entered into pt chart [facility] History of Present illness Narrative* Olegario Retana MA - 11/20/2024 7:22 AM EDT POPULATION HEALTH NAVIGATION OUTREACH Action/ Patient is on [employer] list for below and needs appointment to address: Dilated Retinal Exam Diabetic Foot Exam RSV Vaccine(1 - 1-dose 75+ series) Urine Albumin:Creatinine Ratio Covid-19 Vaccine() Advance Directive Discussion LDL Cholesterol Hemoglobin A1C (%) Date Value 11/01/2020 6.5 Hemoglobin A1C (POCT) (%) Date Value 06/13/2024 5.9 Patient due for: Medicare Annual Wellness Visit Follow up Appointment - RTO: 6 months from 05/2024 OV Diabetic Eye Exam A1C - already ordered KED - already ordered MyChart Active: Yes Left message for patient to call back. Sent [employer] message. HCC: Yes Reason for Outreach Care Gap/HCC or Scheduling Wellness Visits Care Gaps due: Medicare Annual Wellness Visit Follow-up Appointment Diabetic Eye Exam HBA1C KED Patient Contacted: Unable or unnecessary to reach patient: Left message [employer] message sent HCC related Navigation Signature: Olegario Retana MA November 20, 2024 7:22 AM documented in this encounterMer[facility]25 NoteHNO ID: [id number] Author: OLEGARIO RETANA MA Service: ? 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 Type: Progress Notes Filed: 11/20/2024 08:52 Note Text: POPULATION HEALTH NAVIGATION OUTREACH Action/ Patient is on [employer] Work[employer] list for below and needs appointment to address: Dilated Retinal Exam Diabetic Foot Exam RSV Vaccine(1 - 1-dose 75+ series) Urine Albumin:Creatinine Ratio Covid-19 Vaccine() Advance Directive Discussion LDL Cholesterol Hemoglobin A1C (%) Date Value 11/01/2020 6.5 Hemoglobin A1C (POCT) (%) Date Value 06/13/2024 5.9 Patient due for: Medicare Annual Wellness Visit Follow up Appointment - RTO: 6 months from 05/2024 OV Diabetic Eye Exam A1C - already ordered KED - already ordered MyChart Active: Yes Left message for patient to call back. Sent mychart message. HCC: Yes Reason for Outreach Care Gap/HCC or Scheduling Wellness Visits Care Gaps due: Medicare Annual Wellness Visit Follow-up Appointment Diabetic Eye Exam HBA1C KED Patient Contacted: Unable or unnecessary to reach patient: Left message MyChart message sent HCC related Navigation Signature: Olegario Retana MA November 20, 2024 7:22 [facility]04-03-2025 NotePatient Outreach (NETNAV) HARRISON MILLIGAN ([id number]) 1940 M Date Time Provider Department 11/20/24 OLEGARIO RETANA During your visit today, we recorded the following information about you: Olegario Retana MA 11/20/2024 8:52 AM Signed POPULATION HEALTH NAVIGATION OUTREACH Action/FYI Patient is on [employer] Work[employer] list for below and needs appointment to address: Dilated Retinal Exam Diabetic Foot Exam RSV Vaccine(1 - 1-dose 75+ series) Urine Albumin:Creatinine Ratio Covid-19 Vaccine( season) Advance Directive Discussion LDL Cholesterol Hemoglobin A1C (%) Date Value 11/01/2020 6.5 Hemoglobin A1C (POCT) (%) Date Value 06/13/2024 5.9 Patient due for: Medicare Annual Wellness Visit Follow up Appointment - RTO: 6 months from 05/2024 OV Diabetic Eye Exam A1C - already ordered KED - already ordered MyChart Active: Yes Left message for patient to call back. Sent Wyliohart message. HCC: Yes Reason for Outreach Care Gap/HCC or Scheduling Wellness Visits Care Gaps due: Medicare Annual Wellness Visit Follow-up Appointment Diabetic Eye Exam HBA1C KED Patient Contacted: Unable or unnecessary to reach patient: Left message MyChart message sent HCC related Navigation Signature: Olegario Retana MA November 20, 2024 7:22 AM Allergies As of Date: 11/20/2024 (No Known Allergies) Date Reviewed: 06/13/2024 Reviewed by: Elke Le LPN - Fully Assessed Reason for Visit: Population Health Navigation Outreach [3910] Cmt: Susanne Alejandrabreeni - [facility] Prescriptions as of 11/20/2024 - amLODIPine (NORVASC) 10 mg tablet Take 1 tablet by mouth once daily. - metFORMIN ER (GLUCOPHAGE XR) 500 mg 24 hr tablet Take 1 tablet by mouth once daily with breakfast - magnesium oxide (MAG-OX) 400 mg (241.3 mg magnesium) tablet Take 1 tablet by mouth once daily. - atorvastatin (LIPITOR) 20 mg tablet Take 1 tablet by mouth once daily. - warfarin (COUMADIN) 5 mg tablet Take by mouth 10 mg daily, 15 mg on Sunday per Pt ( [facility] Heart group Dr. Kebede's monitors INR) - tamsulosin (FLOMAX) 0.4 mg Take 1 capsule daily until the Rx is finished, then stop - bumetanide (BUMEX) 1 mg tablet Take 1 tablet by mouth once daily. - Psyllium Husk-Sucrose 3.4 gram/7 gram powd 1.7 g. - aspirin 81 mg chewable tablet 81 mg. - polyethylene glycol 3350 (MIRALAX, GLYCOLAX) 17 gram/dose powder Take by mouth. - senna (SENNA) 8.6 mg tab Take 2 tablets by mouth twice daily. - blood sugar diagnostic (BLOOD GLUCOSE TEST) test strip Test blood sugar(s) 1 times daily. Dx: Type 2 DM - Controlled E11.9 Insulin: No - Lancets lancets Test blood sugar(s) 1 times daily. Dx: Type 2 DM - Controlled E11.9 Insulin: No - silver sulfADIAZINE (SILVADENE,THERMAZENE) 1 % cream Apply 1 application to affected area once daily. - MULTIVITAMIN ORAL Take by mouth. Problem List As Of Date 11/20/2024 Noted Resolved Ataxia S/P CVA [I69.993] 03/16/2011 Essential hypertension [I10] 03/28/2011 Mixed hyperlipidemia [E78.2] 03/28/2011 History of stroke [Z86.73] 02/28/2014 BMI 40.0-44.9, adult (HCC) [Z68.41] 02/23/2015 CAD (coronary artery disease) [I25.10] 10/22/2018 NSTEMI (non-ST elevated myocardial infarction) *10/22/2018 Cerebrovascular disease [I67.9] 10/22/2018 Aortic stenosis [I35.0] 10/22/2018 S/P CABG (coronary artery bypass graft) [Z95.1] 11/02/2018 S/P AVR [Z95.2] 11/02/2018 Acute urinary retention [R33.8] 11/04/2018 Paroxysmal atrial fibrillation (HCC) [I48.0] 11/24/2018 Venous ulcer, limited to breakdown of skin (HCC*04/29/2019 Pre-diabetes [R73.03] 05/27/2019 PATRICIA (obstructive sleep apnea) [G47.33] 11/01/2020 Chronic diastolic CHF (congestive heart failure*11/01/2020 Encounter Status:Closed by OLEGARIO RETANA on 11/20/24[facility]04-01-2025 Telephone encounter Note* Telephone Encounter - [place] Nathalie Mederos - 11/18/2024 4:33 PM EDT Prescription Refill Information The patient has been identified by name and date of : Yes Caregiver verified no other encounters exist for this prescription request: Yes Caregiver confirmed with patient/requestor that no other refills are due, in the near future, with this provider at this time: Yes The last office visit in the department: 06/13/24 Does the patient have a future office visit with this provider/department: Yes Requested Prescriptions Pending Prescriptions Disp Refills amLODIPine (NORVASC) 10 mg tablet 90 tablet 3 Sig: Take 1 tablet by mouth once daily. Out of medication, please send today. Nathalie Mederos November 18, 2024 4:34 PM [facility]04-01-2025 Miscellaneous Notes* Telephone Encounter - [place] Nathalie Mederos - 11/18/2024 4:33 PM EDT Prescription Refill Information The patient has been identified by name and date of : Yes Caregiver verified no other encounters exist for this prescription request: Yes Caregiver confirmed with patient/requestor that no other refills are due, in the near future, with this provider at this time: Yes The last office visit in the department: 06/13/24 Does the patient have a future office visit with this provider/department: Yes Requested Prescriptions Pending Prescriptions Disp Refills amLODIPine (NORVASC) 10 mg tablet 90 tablet 3 Sig: Take 1 tablet by mouth once daily. Out of medication, please send today. Nathalie Mederos November 18, 2024 4:34 PM documented in this encounterMer[facility]03-[facility] Telephone encounter Note * Telephone Encounter - Elke Le LPN - 10/21/2024 2:15 PM EST Received 10/21/2024 from [facility] (Dr Yandy roger). Placed in provider's inbox for review. Route to [place] for scanning. [facility]03-04-2025 Miscellaneous Notes* Telephone Encounter - Elke Le LPN - 10/21/2024 2:15 PM EST Received 10/21/2024 from [facility] (Dr Yandy roger). Placed in provider's inbox for review. Route to [place] for scanning. documented in this encounterMercy [facility]02-10-2025 Telephone encounter Note * Telephone Encounter - Elke Le LPN - 09/29/2024 3:42 PM EST Prescription Refill Information The patient has been identified by name and date of : Yes Caregiver verified no other encounters exist for this prescription request: Yes Caregiver confirmed with patient/requestor that no other refills are due, in the near future, with this provider at this time: Yes The last office visit in the department: 06/13/2024 Does the patient have a future office visit with this provider/department: No Requested Prescriptions Pending Prescriptions Disp Refills metFORMIN ER (GLUCOPHAGE XR) 500 mg 24 hr tablet [Pharmacy Med Name: metFORMIN HCl ER 500 MG Oral Tablet Extended Release 24 Hour] 90 tablet 0 Sig: Take 1 tablet by mouth once daily with breakfast Elke Le LPN September 29, 2024 3:42 PM [facility]02-10-2025 Miscellaneous Notes* Telephone Encounter - Elke Le LPN - 09/29/2024 3:42 PM EST Prescription Refill Information The patient has been identified by name and date of : Yes Caregiver verified no other encounters exist for this prescription request: Yes Caregiver confirmed with patient/requestor that no other refills are due, in the near future, with this provider at this time: Yes The last office visit in the department: 06/13/2024 Does the patient have a future office visit with this provider/department: No Requested Prescriptions Pending Prescriptions Disp Refills metFORMIN ER (GLUCOPHAGE XR) 500 mg 24 hr tablet [Pharmacy Med Name: metFORMIN HCl ER 500 MG Oral Tablet Extended Release 24 Hour] 90 tablet 0 Sig: Take 1 tablet by mouth once daily with breakfast Elke Le LPN September 29, 2024 3:42 PM documented in this encounterMercy Health [facility]01-15-2025 NoteHNO ID: [id number] Author: OLEGARIO RETANA MA Service: ? 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 Type: Progress Notes Filed: 09/03/2024 11:47 Note Text: POPULATION HEALTH NAVIGATION OUTREACH Action/I Patient is on [employer] Work[employer] list for below and needs appointment to address: Dilated Retinal Exam Diabetic Foot Exam RSV Vaccine(1 - 1-dose 75+ series) Urine Albumin:Creatinine Ratio Covid-19 Vaccine( season) Advance Directive Discussion Hemoglobin A1C (%) Date Value 11/01/2020 6.5 Hemoglobin A1C (POCT) (%) Date Value 06/13/2024 5.9 Patient due for: Medicare Annual Wellness Visit - RTO: 6 months form 06/13/24 OV Diabetic Eye Exam KED - already ordered A1C - already ordered MyChart Active: Yes Left message for patient to call back. Sent mychart message. HCC: Yes Reason for Outreach Care Gap/HCC or Scheduling Wellness Visits Care Gaps due: Medicare Annual Wellness Visit Diabetic Eye Exam HBA1C KED Patient Contacted: Unable or unnecessary to reach patient: Left message MyChart message sent HCC related Navigation Signature: Olegario Retana MA September 03, 2024 11:43 [facility]01-15-2025 History of Present illness Narrative* Olegario Retana MA - 09/03/2024 11:43 AM EST POPULATION HEALTH NAVIGATION OUTREACH Action/FYI Patient is on [email or web address] list for below and needs appointment to address: Dilated Retinal Exam Diabetic Foot Exam RSV Vaccine(1 - 1-dose 75+ series) Urine Albumin:Creatinine Ratio Covid-19 Vaccine( season) Advance Directive Discussion Hemoglobin A1C (%) Date Value 11/01/2020 6.5 Hemoglobin A1C (POCT) (%) Date Value 06/13/2024 5.9 Patient due for: Medicare Annual Wellness Visit - RTO: 6 months form 06/13/24 OV Diabetic Eye Exam KED - already ordered A1C - already ordered MyChart Active: Yes Left message for patient to call back. Sent Wyliohart message. HCC: Yes Reason for Outreach Care Gap/HCC or Scheduling Wellness Visits Care Gaps due: Medicare Annual Wellness Visit Diabetic Eye Exam HBA1C KED Patient Contacted: Unable or unnecessary to reach patient: Left message DosYogureshart message sent HCC related Navigation Signature: Olegario Retana MA September 03, 2024 11:43 AM documented in this encounterMercy Health [facility]01-15-2025 NotePatient Outreach (NETNAV) HARRISON MILLIGAN ([id number]) 1940 M Date Time Provider Department 09/03/24 OLEGARIO RETANA During your visit today, we recorded the following information about you: Olegario Retana MA 09/03/2024 11:47 AM Signed POPULATION HEALTH NAVIGATION OUTREACH Action/FYI [facility] [employer] [facility] below and needs appointment to address: Dilated Retinal Exam Diabetic Foot Exam RSV Vaccine(1 - 1-dose 75+ series) Urine Albumin:Creatinine Ratio Covid-19 Vaccine( season) Advance Directive Discussion Hemoglobin A1C (%) Date Value 11/01/2020 6.5 Hemoglobin A1C (POCT) (%) Date Value 06/13/2024 5.9 Patient due for: Medicare Annual Wellness Visit - RTO: 6 months form 06/13/24 OV Diabetic Eye Exam KED - already ordered A1C - already ordered MyChart Active: Yes Left message for patient to call back. Sent [employer] message. HCC: Yes Reason for Outreach Care Gap/HCC or Scheduling Wellness Visits Care Gaps due: Medicare Annual Wellness Visit Diabetic Eye Exam HBA1C KED Patient Contacted: Unable or unnecessary to reach patient: Left message DosYogureshart message sent HCC related Navigation Signature: Olegario Retana MA September 03, 2024 11:43 AM Allergies As of Date: 09/03/2024 (No Known Allergies) Date Reviewed: 06/13/2024 Reviewed by: Elke Le LPN - Fully Assessed Reason for Visit: Population Health Navigation Outreach [3910] Cmt: [facility] [place] [facility]SA Prescriptions as of 09/03/2024 - metFORMIN ER (GLUCOPHAGE XR) 500 mg 24 hr tablet Take 1 tablet by mouth once daily with breakfast - magnesium oxide (MAG-OX) 400 mg (241.3 mg magnesium) tablet Take 1 tablet by mouth once daily. - atorvastatin (LIPITOR) 20 mg tablet Take 1 tablet by mouth once daily. - amLODIPine (NORVASC) 10 mg tablet Take 1 tablet by mouth once daily. - warfarin (COUMADIN) 5 mg tablet Take by mouth 10 mg daily, 15 mg on Sunday per Pt ( [facility] Heart group Dr. Kebede's monitors INR) - tamsulosin (FLOMAX) 0.4 mg Take 1 capsule daily until the Rx is finished, then stop - bumetanide (BUMEX) 1 mg tablet Take 1 tablet by mouth once daily. - Psyllium Husk-Sucrose 3.4 gram/7 gram powd 1.7 g. - aspirin 81 mg chewable tablet 81 mg. - polyethylene glycol 3350 (MIRALAX, GLYCOLAX) 17 gram/dose powder Take by mouth. - senna (SENNA) 8.6 mg tab Take 2 tablets by mouth twice daily. - blood sugar diagnostic (BLOOD GLUCOSE TEST) test strip Test blood sugar(s) 1 times daily. Dx: Type 2 DM - Controlled E11.9 Insulin: No - Lancets lancets Test blood sugar(s) 1 times daily. Dx: Type 2 DM - Controlled E11.9 Insulin: No - silver sulfADIAZINE (SILVADENE,THERMAZENE) 1 % cream Apply 1 application to affected area once daily. - MULTIVITAMIN ORAL Take by mouth. Problem List As Of Date 09/03/2024 Noted Resolved Ataxia S/P CVA [I69.993] 03/16/2011 Essential hypertension [I10] 03/28/2011 Mixed hyperlipidemia [E78.2] 03/28/2011 History of stroke [Z86.73] 02/28/2014 BMI 40.0-44.9, adult (HCC) [Z68.41] 02/23/2015 CAD (coronary artery disease) [I25.10] 10/22/2018 NSTEMI (non-ST elevated myocardial infarction) *10/22/2018 Cerebrovascular disease [I67.9] 10/22/2018 Aortic stenosis [I35.0] 10/22/2018 S/P CABG (coronary artery bypass graft) [Z95.1] 11/02/2018 S/P AVR [Z95.2] 11/02/2018 Acute urinary retention [R33.8] 11/04/2018 Paroxysmal atrial fibrillation (HCC) [I48.0] 11/24/2018 Venous ulcer, limited to breakdown of skin (HCC*04/29/2019 Pre-diabetes [R73.03] 05/27/2019 PATRICIA (obstructive sleep apnea) [G47.33] 11/01/2020 Chronic diastolic CHF (congestive heart failure*11/01/2020 Encounter Status:Closed by OLEGARIO RETANA on 09/03/24[facility]12-03-2024 Telephone encounter Note* Telephone Encounter - Rebeca Dallas APRN.CNP - 07/22/2024 2:29 PM EST [facility] manages coumadin Rebeca Dallas APRN.CNP [facility]12-03-2024 Miscellaneous Notes* Telephone Encounter - Rebeca Dallas APRN.CNP - 07/22/2024 2:29 PM EST [place] [facility] manages coumadin Rebeca Dallas APRN.CNP documented in this encounterMercy Health Defiance Hospital12-03-2024 Telephone encounter Note * Telephone Encounter - Elke Le LPN - 07/22/2024 1:58 PM EST Received 07/21/2024 from [facility]. Placed in provider's inbox for review. Route to [place] for scanning. [facility]12-03-2024 Miscellaneous Notes* Telephone Encounter - Elke Le LPN - 07/22/2024 1:58 PM EST Received 07/21/2024 from [facility]. Placed in provider's inbox for review. Route to [place] for scanning. documented in this encounterMercy Health Defiance Hospital11-19-2024 NoteHNO ID: [id number] Author: LATONIA YARBROUGH MD Service: ? Author Type: Physician Type: Progress Notes Filed: 07/08/2024 15:09 Note Text: Addendum Clarification (E66.812, Z68.39) Class 2 obesity with body mass index (BMI) of 39.0 to 39.9 in adult, unspecified obesity type, unspecified whether serious comorbidity present Comment: bmi no longer over 40 Plan: watch didet. Latonia Yarbrough, [facility]11-11-2024 Telephone encounter Note * Telephone Encounter - Zoe Rubi MA - 06/30/2024 3:42 PM EST Prescription Refill Information The patient has been identified by name and date of : Yes Caregiver verified no other encounters exist for this prescription request: Yes Caregiver confirmed with patient/requestor that no other refills are due, in the near future, with this provider at this time: Yes The last office visit in the department: 06/13/24 Does the patient have a future office visit with this provider/department: No Requested Prescriptions Pending Prescriptions Disp Refills metFORMIN ER (GLUCOPHAGE XR) 500 mg 24 hr tablet [Pharmacy Med Name: metFORMIN HCl ER 500 MG Oral Tablet Extended Release 24 Hour] 90 tablet 0 Sig: Take 1 tablet by mouth once daily with breakfast Zoe Rubi MA June 30, 2024 3:42 PM [facility]11-11-2024 Miscellaneous Notes* Telephone Encounter - Zoe Rubi MA - 06/30/2024 3:42 PM EST Prescription Refill Information The patient has been identified by name and date of : Yes Caregiver verified no other encounters exist for this prescription request: Yes Caregiver confirmed with patient/requestor that no other refills are due, in the near future, with this provider at this time: Yes The last office visit in the department: 06/13/24 Does the patient have a future office visit with this provider/department: No Requested Prescriptions Pending Prescriptions Disp Refills metFORMIN ER (GLUCOPHAGE XR) 500 mg 24 hr tablet [Pharmacy Med Name: metFORMIN HCl ER 500 MG Oral Tablet Extended Release 24 Hour] 90 tablet 0 Sig: Take 1 tablet by mouth once daily with breakfast Zoe Rubi MA June 30, 2024 3:42 PM documented in this encounterMercy Health Def[facility] Hospital10-25-2024 History of Present illness Narrative* Latonia Yarbrough MD - 06/13/2024 10:07 AM EDT CHIEF COMPLAINT Patient presents with: Follow Up: 6 month HISTORY OF PRESENT ILLNESS Harrison Milligan is a 84 year old male who presents here today for follow up. I last saw this patienton 12/07/2023. Accompanied by his who reports he hasn't been eating healthy, favoring cold cutsand hot dogs, doesn't eat the healthy food she makes. Diabetes - Currently managed on metformin 500 mg tablet once daily - A1c is 5.8% as of 11/2023 - Does not check BS at home or monitor diet - Last 3 Encounter Wt Readings: Date: Wt: 06/13/2024 129 kg (284 lb 6.3 oz) 12/07/2023 122.8 kg (270 lb 11.6 oz) 05/28/2023 117.9 kg (260 lb) Shortness of Breath - Admits to becoming short of breath easily with activity, has to sit down to catch his breath. No chest pains. Sees the natural resources specialist time to time. Of note, 12 lb wt gain. Balance - Is still slightly unsteady, does not use walker Health Maintenance Due for Urine Albumin:Creatinine Ratio Due for Advance Directive Discussion Due for Influenza Vaccine (1) Due for Covid-19 Vaccine ( season) Due for HBA1C Due for Dilated Retinal Exam Due for Depression Screening Due for Anxiety Screening Due for RSV Vaccine (1-1 dose 75+ series) Labs reviewed. Past medical history, appointments, medications, allergies reviewed. REVIEW OF SYSTEMS General: Feels well, +weight gain, no fevers or chills. HEENT: No sinus congestion, earache, sore throat. Cardiac: No chest pain, palpitations Resp: +shortness of breath No cough or wheeze GI: No reflux symptoms, food intolerance, bowel changes. : No urinary frequency, dysuria. MS: +unsteady gait PAST MEDICAL HISTORY PAST MEDICAL HISTORY Diagnosis Date Acute on chronic diastolic heart failure (HCC) Aortic valve stenosis CAD (coronary artery disease) Cerebrovascular disease 10/22/2018 High blood pressure HLD (hyperlipidemia) NSTEMI (non-ST elevated myocardial infarction) ([facility]) S/P AVR (aortic valve replacement) 10/29/2018 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 Obese. Heart: Regular rate and rhythm. Normal S1 and S2. No murmurs, rubs, or gallops. Reg rhythm today. Lungs: Clear to auscultation bilaterally. No respiratory distress. No wheezes, rales, or rhonchi. Abdomen: Soft, non-tender, no distention. Extremities: Feet/ankles without edema, posterior tibial pulses full and symmetrical. Data Reviewed Latest Ref Rng 12/10/2023 Protein, Total 6.3 - 8.0 g/dL 6.8 Albumin 3.9 - 4.9 g/dL 3.9 Calcium 8.5 - 10.2 mg/dL 9.3 Bilirubin, Total 0.2 - 1.3 mg/dL 0.5 Alkaline Phosphatase 38 - 113 U/L 94 AST 14 - 40 U/L 29 ALT 10 - 54 U/L 24 Glucose 74 - 99 mg/dL 100 (H) BUN 9 - 24 mg/dL 15 Creatinine 0.73 - 1.22 mg/dL 0.94 Sodium 136 - 144 mmol/L 140 Potassium 3.7 - 5.1 mmol/L 4.2 Chloride 97 - 105 mmol/L 105 CO2 22 - 30 mmol/L 24 Anion Gap 9 - 18 mmol/L 11 eGFR >=60 mL/min/1.73m 81 WBC 3.70 - 11.00 k/uL 6.21 RBC 4.20 - 6.00 m/uL 5.60 Hemoglobin 13.0 - 17.0 g/dL 16.9 Hematocrit 39.0 - 51.0 % 51.0 MCV 80.0 - 100.0 fL 91.1 MCH 26.0 - 34.0 pg 30.2 MCHC 30.5 - 36.0 g/dL 33.1 RDW-CV 11.5 - 15.0 % 12.9 Platelet Count 150 - 400 k/uL 186 MPV 9.0 - 12.7 fL 11.0 Absolute nRBC <0.01 k/uL <0.01 Cholesterol, Total <200 mg/dL 145 Triglyceride <150 mg/dL 112 HDL Cholesterol >39 mg/dL 43 Non HDL Cholesterol <130 mg/dL 102 Fasting Time hrs 12 VLDL Cholesterol <30 mg/dL 22 TC:HDL Ratio <5.10 3.37 LDL Cholesterol <100 mg/dL 80 LDL:HDL Ratio <2.54 1.86 Hemoglobin A1C 4.3 - 5.6 % 5.8 (H) Estimated Average Glucose mg/dL 120 Legend: (H) High Assessment/Plan (R73.03) Pre-diabetes (primary encounter diagnosis) Comment: A1c 5.8% as of 11/2023. Will check A1c today in office. Due for routine labs in 11/2024 Plan: HEMOGLOBIN A1C (POC), COMPREHENSIVE METABOLIC PANEL, HEMOGLOBIN A1C, ALBUMIN/CREATININE RATIO, URINE Continue current regimen (Z13.31) Screening for depression (Z13.39) Encounter for screening examination for other mental health and behavioral disorders Comment: Per health maintenance Plan: ANXIETY SCREENING DEPRESSION SCREENING (I10) Essential hypertension (I50.32) Chronic diastolic CHF (congestive heart failure) (HCC) Comment: Fair control. Due for routine labs in 11/2024, sees cardiology Plan: LIPID PANEL BASIC, COMPREHENSIVE METABOLIC PANEL Continue current regimen, endcourage healthier diet and follow up with the natural resources specialist. (R73.03) Pre-diabetes (primary encounter diagnosis) Comment: Plan: HEMOGLOBIN A1C (POC), COMPREHENSIVE METABOLIC PANEL, HEMOGLOBIN A1C, ALBUMIN/CREATININE RATIO, URINE A1c 5.9% today (Z68.41) BMI 40.0-44.9, adult (HCC) Comment: continues to overeat. Plan: encourage healthy eating (Z23) Encounter for immunization Comment: Per health maintenance, pt agreeable Plan: INFLUENZA VACCINE, PRSV FREE, AGE 65+ YR, HIGH DOSE, TRIVALENT (FLUZONE HIGH-DOSE) Requested Prescriptions Signed Prescriptions Disp Refills magnesium oxide (MAG-OX) 400 mg (241.3 mg magnesium) tablet 0 Sig: Take 1 tablet by mouth once daily. atorvastatin (LIPITOR) 20 mg tablet 90 tablet 1 Sig: Take 1 tablet by mouth once daily. amLODIPine (NORVASC) 10 mg tablet Sig: Take 1 tablet by mouth once daily. RTO: 6 months Scribe Attestation: By signing my name below, I, Annabella Larson, attest that this documentation has been prepared under the direction and in the presence of Sanju Yarbrough M.D. Electronically Signed: Pk Sabillon. June 13, 2024 10:07 AM Provider Attestation: I, Latonia Yarbrough MD, personally performed the services described in this documentation. All medical record entries made by the scribe were at my direction and in my telephonic presence. I have reviewed the chart and discharge instructions (if applicable), and agree that the record reflects my personal performance and is accurate and complete. Electronically Signed: Latonia Yarbrough MD June 13, 2024 1:02 PM documented in this encounterMercy Health [facility]10-09-2024 Telephone encounter Note * Telephone Encounter - Elke Le LPN - 05/28/2024 1:47 PM EDT Received 05/28/2024 from [facility]. Placed in provider's inbox for review. Route to [place] for scanning. [facility]10-09-2024 Miscellaneous Notes* Telephone Encounter - Elke Le LPN - 05/28/2024 1:47 PM EDT Received 05/28/2024 from [facility]. Placed in provider's inbox for review. Route to [place] for scanning. documented in this encounterMer[facility]24 Telephone encounter Note * Telephone Encounter - Jessica Draper LPN - 04/24/2024 9:04 AM EDT Received inr 2.4 from [facility]. Placed in provider's inbox for review. Route to [place] scanning Entered into pt chart [facility]09-05-2024 Miscellaneous Notes* Telephone Encounter - Jessica Draper LPN - 04/24/2024 9:04 AM EDT Received inr 2.4 from [facility]. Placed in provider's inbox for review. Route to [place] scanning Entered into pt chart documented in this encounterMercy [facility]08-22-2024 Telephone encounter Note * Telephone Encounter - Zen Noyola MA - 04/10/2024 8:50 AM EDT Prescription Refill Information The patient has been identified by name and date of : Yes Caregiver verified no other encounters exist for this prescription request: Yes Caregiver confirmed with patient/requestor that no other refills are due, in the near future, with this provider at this time: Yes The last office visit in the department: 11/27/23 Does the patient have a future office visit with this provider/department: Yes Requested Prescriptions Pending Prescriptions Disp Refills atorvastatin (LIPITOR) 20 mg tablet [Pharmacy Med Name: Atorvastatin Calcium 20 MG Oral Tablet] 90 tablet 0 Sig: Take 1 tablet by mouth once daily Zen Noyola MA April 10, 2024 8:50 AM [facility]08-22-[facility]24 Miscellaneous Notes* Telephone Encounter - Zen Noyola MA - 04/10/2024 8:50 AM EDT Prescription Refill Information The patient has been identified by name and date of : Yes Caregiver verified no other encounters exist for this prescription request: Yes Caregiver confirmed with patient/requestor that no other refills are due, in the near future, with this provider at this time: Yes The last office visit in the department: 11/27/23 Does the patient have a future office visit with this provider/department: Yes Requested Prescriptions Pending Prescriptions Disp Refills atorvastatin (LIPITOR) 20 mg tablet [Pharmacy Med Name: Atorvastatin Calcium 20 MG Oral Tablet] 90 tablet 0 Sig: Take 1 tablet by mouth once daily Zen Noyola MA April 10, 2024 8:50 AM documented in this encounterMercy [facility]08-15-2024 Telephone encounter Note * Telephone Encounter - Latonia Yarbrough MD - 04/03/2024 11:58 AM EDT The following approved medication requests have been transmitted electronically. Requested Prescriptions Signed Prescriptions Disp Refills metFORMIN ER (GLUCOPHAGE XR) 500 mg 24 hr tablet 90 tablet 0 Sig: Take 1 tablet by mouth once daily with breakfast Authorizing Provider: LATONIA YARBROUGH MD [facility]08-15-2024 Miscellaneous Notes* Telephone Encounter - Latonia Yarbrough MD - 04/03/2024 11:58 AM EDT The following approved medication requests have been transmitted electronically. Requested Prescriptions Signed Prescriptions Disp Refills metFORMIN ER (GLUCOPHAGE XR) 500 mg 24 hr tablet 90 tablet 0 Sig: Take 1 tablet by mouth once daily with breakfast Authorizing Provider: ALTONIA YARBROUGH MD * Telephone Encounter - Melba Calhoun LPN - 04/03/2024 9:56 AM EDT Prescription Refill Information The patient has been identified by name and date of : Yes Caregiver verified no other encounters exist for this prescription request: Yes Caregiver confirmed with patient/requestor that no other refills are due, in the near future, with this provider at this time: Yes The last office visit in the department: 12/07/23 Does the patient have a future office visit with this provider/department: Yes Requested Prescriptions Pending Prescriptions Disp Refills metFORMIN ER (GLUCOPHAGE XR) 500 mg 24 hr tablet [Pharmacy Med Name: metFORMIN HCl ER 500 MG Oral Tablet Extended Release 24 Hour] 90 tablet 0 Sig: Take 1 tablet by mouth once daily with breakfast Melba Calhoun LPN April 03, 2024 9:57 AM documented in this encounterMer[facility]08-15-2024 Telephone encounter Note * Telephone Encounter - Melba Calhoun LPN - 04/03/2024 9:56 AM EDT Prescription Refill Information The patient has been identified by name and date of : Yes Caregiver verified no other encounters exist for this prescription request: Yes Caregiver confirmed with patient/requestor that no other refills are due, in the near future, with this provider at this time: Yes The last office visit in the department: 12/07/23 Does the patient have a future office visit with this provider/department: Yes Requested Prescriptions Pending Prescriptions Disp Refills metFORMIN ER (GLUCOPHAGE XR) 500 mg 24 hr tablet [Pharmacy Med Name: metFORMIN HCl ER 500 MG Oral Tablet Extended Release 24 Hour] 90 tablet 0 Sig: Take 1 tablet by mouth once daily with breakfast Melba Calhoun LPN April 03, 2024 9:57 AM [facility]08-06-[facility] Telephone encounter Note* Telephone Encounter - Rebeca Laughlin MA - 03/25/2024 11:35 AM EDT Received PT/INR results 2.4 dated 03/25/24 from [facility]. Placed in providers inbox for review Route to [place] for scanning [facility]08-06-2024 Miscellaneous Notes* Telephone Encounter - Rebeca Laughlin MA - 03/25/2024 11:35 AM EDT Received PT/INR results 2.4 dated 03/25/24 from [facility]. Placed in providers inbox for review Route to [place] for scanning documented in this encounterMercy [facility]07-08-2024 Telephone encounter Note * Telephone Encounter - Jessica Draper LPN - 02/25/2024 4:36 PM EDT Received INR result (2.3) from [facility]. Placed in provider's inbox for review. Route to [place] scanning Entered into pt chart [facility]-08-[facility]24 Miscellaneous Notes* Telephone Encounter - Jessica Draper LPN - 02/25/2024 4:36 PM EDT Received INR result (2.3) from [facility]. Placed in provider's inbox for review. Route to [place] scanning Entered into pt chart documented in this encounterMercy [facility]06-28-2024 Telephone encounter Note * Telephone Encounter - Sabiha Neilsen RN - 02/15/2024 11:40 AM EDT Received result from [facility]. 02/15/2024 PT 20.5 INR 1.8 Entered result into EMR. Called patient's spouse Francisca. She said Dr. Kebede manages the warfarin so they don't need instructions from Dr. Yarbrough. The current dose is 10 mg every day except 15 mg on Fridays. [facility]-28-[facility]24 Miscellaneous Notes* Telephone Encounter - Sabiha Nielsen RN - 02/15/2024 11:40 AM EDT Received result from [facility]. 02/15/2024 PT 20.5 INR 1.8 Entered result into EMR. Called patient's spouse Francisca. She said Dr. Kebede manages the warfarin so they don't need instructions from Dr. Yarbrough. The current dose is 10 mg every day except 15 mg on Fridays. documented in this encounterMer[facility]05-28-2024 Telephone encounter Note * Telephone Encounter - Jessica Draper LPN - 01/15/2024 4:31 PM EDT Received INR (2.2) result from [facility]. Placed in provider's inbox for review. Route to [place] scanning [facility]-28-[facility] Miscellaneous Notes* Telephone Encounter - Jessica Draper LPN - 01/15/2024 4:31 PM EDT Received INR (2.2) result from [facility]. Placed in provider's inbox for review. Route to [place] scanning documented in this encounterMercy [facility]05-28-2024 Telephone encounter Note * Telephone Encounter - Jessica Draper LPN - 01/15/2024 9:21 AM EDT [facility] Patient has been identified by name and date of : Yes Patient aware RX will be sent to pharmacy. No need to notify patient. Pharmacy phones for refill(s): Requested Prescriptions Pending Prescriptions Disp Refills atorvastatin (LIPITOR) 20 mg tablet [Pharmacy Med Name: Atorvastatin Calcium 20 MG Oral Tablet] 90 tablet 0 Sig: Take 1 tablet by mouth once daily Date of last office visit : Visit date not found Date of next office visit : Visit date not found Last 2 Encounter Wt Readings: Date: Wt: 12/07/2023 122.8 kg (270 lb 11.6 oz) 05/28/2023 117.9 kg (260 lb) Cholesterol: Triglyceride Date Value 12/10/2023 112 mg/dL 07/12/2021 305 11/01/2020 279 mg/dL HDL Cholesterol (mg/dL) Date Value 12/10/2023 43 11/01/2020 39 HDL (mg/dL) Date Value 04/12/2022 46 LDL Cholesterol Date Value 12/10/2023 80 mg/dL 07/12/2021 74 11/01/2020 99 mg/dL ALT Date Value 12/10/2023 24 U/L 12/12/2021 17 Non HDL Cholesterol, Nonfasting (mg/dL) Date Value 10/28/2019 151 Non HDL Cholesterol (mg/dL) Date Value 12/10/2023 102 11/01/2020 155 Please advise. Jessica Draper LPN [facility] Miscellaneous Notes* Telephone Encounter - Jessica Draper LPN - 01/15/2024 9:21 AM EDT [facility] Patient has been identified by name and date of : Yes Patient aware RX will be sent to pharmacy. No need to notify patient. Pharmacy phones for refill(s): Requested Prescriptions Pending Prescriptions Disp Refills atorvastatin (LIPITOR) 20 mg tablet [Pharmacy Med Name: Atorvastatin Calcium 20 MG Oral Tablet] 90 tablet 0 Sig: Take 1 tablet by mouth once daily Date of last office visit : Visit date not found Date of next office visit : Visit date not found Last 2 Encounter Wt Readings: Date: Wt: 12/07/2023 122.8 kg (270 lb 11.6 oz) 05/28/2023 117.9 kg (260 lb) Cholesterol: Triglyceride Date Value 12/10/2023 112 mg/dL 07/12/2021 305 11/01/2020 279 mg/dL HDL Cholesterol (mg/dL) Date Value 12/10/2023 43 11/01/2020 39 HDL (mg/dL) Date Value 04/12/2022 46 LDL Cholesterol Date Value 12/10/2023 80 mg/dL 07/12/2021 74 11/01/2020 99 mg/dL ALT Date Value 12/10/2023 24 U/L 12/12/2021 17 Non HDL Cholesterol, Nonfasting (mg/dL) Date Value 10/28/2019 151 Non HDL Cholesterol (mg/dL) Date Value 12/10/2023 102 11/01/2020 155 Please advise. Jessica Draper LPN documented in this encounterMer[facility]05-02-2024 Telephone encounter Note * Telephone Encounter - Jessica Draper LPN - 12/20/2023 12:02 PM EDT Received echo with contrast report from [facility]. Placed in provider's inbox for review. Route to [place] scanning [facility]05-02-[facility] Miscellaneous Notes* Telephone Encounter - Jessica Draper LPN - 12/20/2023 12:02 PM EDT Received echo with contrast report from [facility]. Placed in provider's inbox for review. Route to [place] scanning documented in this encounterMer[facility]04-22-2024 Telephone encounter Note * Telephone Encounter - Jessica Draper LPN - 12/10/2023 1:32 PM EDT Received INR result (2.4) from [facility]. Placed in provider's inbox for review. Route to [place] scanning Entered into pt chart [facility]04-[facility] Miscellaneous Notes* Telephone Encounter - Jessica Draper LPN - 12/10/2023 1:32 PM EDT Received INR result (2.4) from [facility]. Placed in provider's inbox for review. Route to [place] scanning Entered into pt chart documented in this encounterMercy [facility]04-19-2024 History of Present illness Narrative* Latonia Yarbrough MD - 12/07/2023 8:12 AM EDT CHIEF COMPLAINT Patient presents with: Follow Up: 6 month HISTORY OF PRESENT ILLNESS Harrison Milligan is a 83 year old male who presents here today for follow up. I last saw this patienton 05/28/2023. Hearing - Had hearing aides, states that they did not fit right - Has had 3 sets - Losing battery during the night Balance - Has trouble walking - Feels wobbly - Left leg bothers him, it does not want to move right - Has trouble lifting it - Admits to having a small stroke in 2006, states that it affected his motor skills - Denies weakness at that time - Denies pain in the leg and headaches Shortness of Breath - Ongoing - Daughter states that he is breathing harder - Seen by natural resources specialist on 11/08/2023 - Scheduled for an echo Health Maintenance Due for RSV Vaccine (1-1 dose 60+ series) Due for Covid-19 Vaccine (2022-24 season) Due for Advance Directive Discussion Due for Behavioral Heal Screening Labs reviewed. Past medical history, appointments, medications, allergies reviewed. REVIEW OF SYSTEMS General: Feels well, no weight changes, fevers or chills. HEENT: No sinus congestion, earache, sore throat. +hearing loss, unilateral Cardiac: No chest pain, palpitations Resp: No cough, wheeze, +shortness of breath GI: No reflux symptoms, food intolerance, bowel changes. : No urinary frequency, dysuria. 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 Obese. Hard of hearing. Responds appropriately to questions Heart: Regular rate and rhythm. Normal S1 and S2. No murmurs, rubs, or gallops. Lungs: Clear to auscultation bilaterally. No respiratory distress. No wheezes, rales, or rhonchi. Abdomen: Soft, non-tender, no distention. Extremities: Feet/ankles without edema, posterior tibial pulses full and symmetrical. Gait a little broad based and tentative. No overt weakness in the leg. He is using a cane Data Reviewed Latest Ref Rng 11/08/2023 INR 0.81 - 1.21 2.3 ! (E) Latest Ref Rng 05/26/2023 WBC 3.70 - 11.00 k/uL 6.28 RBC 4.20 - 6.00 m/uL 5.30 Hemoglobin 13.0 - 17.0 g/dL 16.2 Hematocrit 39.0 - 51.0 % 49.2 MCV 80.0 - 100.0 fL 92.8 MCH 26.0 - 34.0 pg 30.6 MCHC 30.5 - 36.0 g/dL 32.9 RDW-CV 11.5 - 15.0 % 13.2 Platelet Count 150 - 400 k/uL 180 MPV 9.0 - 12.7 fL 10.6 Absolute nRBC <0.01 k/uL <0.01 Latest Ref Rng 03/20/2023 Cholesterol, Total <200 mg/dL 157 Triglyceride <150 mg/dL 140 HDL Cholesterol >39 mg/dL 41 Non HDL Cholesterol <130 mg/dL 116 Fasting Time hrs 12 VLDL Cholesterol <30 mg/dL 28 TC:HDL Ratio <5.10 3.83 LDL Cholesterol <100 mg/dL 88 LDL:HDL Ratio <2.54 2.15 Hemoglobin A1C 4.3 - 5.6 % 5.5 Estimated Average Glucose mg/dL 111 Legend: ! Abnormal (E) External lab result 10/20/2021 Transesophageal Echo Summary: Left ventricle: The cavity size is normal. Wall thickness is normal. Systolic function is normal. Aortic Valve: A bioprosthetic valve is present. There is no evidence of vegetation. There is mild regurgitation. Mitral Valve: The annulus is severely calcified. The leaflets are moderately thickened and moderately calcified. There is no evidence of vegetation. There is mild regurgitation. Left Atrium: There is no evidence of a thrombus in the atrial cavity or appendage. Right Atrium: There is no evidence of a thrombus in the atrial cavity or appendage. No evidence of vegetation on the bioprosthetic aortic valve. Assessment/Plan (E11.622) Type 2 diabetes mellitus with other skin ulcer, without long-term current use of insulin ([facility]) (primary encounter diagnosis) Comment: A1c is 5.5% as of 03/20/2023. Due for routine labs in March Plan: COMPLETE BLOOD COUNT, COMPREHENSIVE METABOLIC PANEL, HEMOGLOBIN A1C (E66.9) Obesity, Class I, BMI 30-34.9 (Z68.41) BMI 40.0-44.9, adult (HCC) Comment: Currently 270 lb with a BMI of 37.78 kg/m^2 Plan: Encouraged healthy diet and regular exercise (I10) Essential hypertension Comment: Well controlled Plan: Continue current regimen (I50.32) Chronic diastolic CHF (congestive heart failure) (HCC) Comment: Pt is experiencing shortness of breath, seen by cardiology on 11/08/2023, scheduled for echo Plan: Continue current treatment plan per cardiology (I48.0) Paroxysmal atrial fibrillation (HCC) (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 Currently managed on coumadin, INR 2.3 as of 11/08/2023 Plan: Continue current treatment plan (R29.898) Left leg weakness Comment: Ongoing, unclear etiology Plan: Will continue to monitor (E78.2) Mixed hyperlipidemia Comment: Well managed on statin therapy. Due for routine labs in March Plan: LIPID PANEL BASIC, COMPREHENSIVE METABOLIC PANEL (S81.811D) Noninfected skin tear of right lower extremity, subsequent encounter Comment: Present during exam. Plan: Will continue to monitor Requested Prescriptions Signed Prescriptions Disp Refills warfarin (COUMADIN) 5 mg tablet Sig: Take by mouth 10 mg daily, 15 mg on Sunday per Pt ( [facility] Heart group Dr. Kebede's monitors INR) RTO: 6 months Scribe Attestation: By signing my name below, IAnnabella, attest that this documentation has been prepared under the direction and in the presence of Sanju Yarbrough M.D. Electronically Signed: Pk Sabillon. December 07, 2023 8:12 AM Provider Attestation: ILatonia MD, personally performed the services described in this documentation. All medical record entries made by the scribe were at my direction and in my telephonic presence. I have reviewed the chart and discharge instructions (if applicable), and agree that the record reflects my personal performance and is accurate and complete. Electronically Signed: Latonia Yarbrough MD December 07, 2023 11:19 AM documented in this encounterMer[facility]03-21-2024 Miscellaneous Notes* Telephone Encounter - Elke Le LPN - 11/08/2023 2:16 PM EDT Received 11/08/2023 from [facility]. Placed in provider's inbox for review. Route to [place] for scanning. documented in this encounterMercy [facility]03-21-2024 Miscellaneous Notes* Telephone Encounter - Teresa Gomez MA - 11/08/2023 1:42 PM EDT Received Medical Records - Office visit note Medical records [facility] on 11/08/23 and placed on MD desk () for review. Teresa Gomez MA documented in this encounterMercy Health [facility]02-19-2024 Miscellaneous Notes* Telephone Encounter - Jessica Draper LPN - 10/08/2023 4:30 PM EST Received inr result (2.7) from [facility]. Placed in provider's inbox for review. Route to [place] scanning Entered into pt chart documented in this encounterMercy Health [facility] Hospital12-04-2023 Miscellaneous Notes* Telephone Encounter - Elke Le LPN - 07/23/2023 2:20 PM EST Received 07/23/2023 from [facility]. Placed in provider's inbox for review. Route to [place] for scanning. documented in this [facility]11-27-2023 Miscellaneous Notes* Telephone Encounter - Jessica Draper - 07/16/2023 3:32 PM EST Received INR result (3.6) from [facility]. Placed in provider's inbox for review. Entered into pt chart. Route to [place] scanning. documented in this encounterMercy [facility]11-14-2023 Miscellaneous Notes* Telephone Encounter - Elke Le LPN - 07/03/2023 10:14 AM EST Received 07/02/2023 from [facility]. Placed in provider's inbox for review. Route to [place] for scanning Dr Yandy roger documented in this encounterMercy Health [facility]08-29-2023 Miscellaneous Notes* Telephone Encounter - Elke Le LPN - 04/17/2023 2:07 PM EDT LM for patient to call office. * Telephone Encounter - Rebeca Chen APRN.CNP - 04/17/2023 1:57 PM EDT Due for office visit, please schedule. Rebeca Chen APRN.SHERI * Telephone Encounter - Miladis Bradley - 04/17/2023 11:15 AM EDT Patient has been identified by name and date of : Yes Requested Prescriptions Pending Prescriptions Disp Refills metFORMIN ER (GLUCOPHAGE XR) 500 mg 24 hr tablet 90 tablet 0 Sig: Take 1 tablet by mouth daily with breakfast. RX INSTRUCTIONS: Patient aware RX will be sent to pharmacy. No need to notify patient. Miladis Buitrago documented in this encounterMercy Health [facility]08-09-2023 Miscellaneous Notes* Telephone Encounter - Elke Le LPN - 03/28/2023 2:48 PM EDT Received 03/28/2023 from [facility]. Placed in provider's inbox for review. Route to [place] for scanning. documented in this encounterMercy Health [facility]06-15-2023 Miscellaneous Notes* Telephone Encounter - Jessica Draper - 02/01/2023 2:28 PM EDT Received Protime (27.1) and INR (2.5) results from [facility]. Placed in provider's inbox for review. Route to [place] scanning. Entered into pt chart. documented in this encounterMercy Health [facility]06-13-2023 Telephone encounter Note * Telephone Encounter - Manuela Mccauley - 01/30/2023 3:44 PM EDT Last appointment: 06/29/22 Next appointment: n/a Patient has been identified by name and date of : Yes Requested Prescriptions Pending Prescriptions Disp Refills atorvastatin (LIPITOR) 20 mg tablet 90 tablet 3 Sig: Take 1 tablet by mouth once daily. metFORMIN ER (GLUCOPHAGE XR) 500 mg 24 hr tablet 90 tablet 3 Sig: Take 1 tablet by mouth daily with breakfast. RX INSTRUCTIONS: Patient aware RX will be sent to pharmacy. No need to notify patient. Manuela Mederos [facility]06-13-2023 Miscellaneous Notes* Telephone Encounter - Manuela Mccauley - 01/30/2023 3:44 PM EDT Last appointment: 06/29/22 Next appointment: n/a Patient has been identified by name and date of : Yes Requested Prescriptions Pending Prescriptions Disp Refills atorvastatin (LIPITOR) 20 mg tablet 90 tablet 3 Sig: Take 1 tablet by mouth once daily. metFORMIN ER (GLUCOPHAGE XR) 500 mg 24 hr tablet 90 tablet 3 Sig: Take 1 tablet by mouth daily with breakfast. RX INSTRUCTIONS: Patient aware RX will be sent to pharmacy. No need to notify patient. Manuela Mederos documented in this encounterMercy Health [facility]06-05-2023 Miscellaneous Notes* Telephone Encounter - Elke Le LPN - 01/22/2023 2:13 PM EDT Pharmacy verified in Epic Patient has been identified by name and date of : Yes Patient aware RX will be sent to pharmacy. No need to notify patient. Pharmacy phones for refill(s): Requested Prescriptions Pending Prescriptions Disp Refills tamsulosin (FLOMAX) 0.4 mg 90 capsule 3 Sig: Take 2 capsules by mouth once daily. Date of last office visit : 06/29/2022 Date of next office visit : Visit date not found Last 2 Encounter Wt Readings: Date: Wt: 06/29/2022 113.4 kg (250 lb) 01/03/2022 106.6 kg (235 lb) Not applicable Please advise. Elke Le LPN * Telephone Encounter - Lynne Abbasi - 01/22/2023 1:54 PM EDT Patient has been identified by name and date of : Yes Requested Prescriptions Pending Prescriptions Disp Refills tamsulosin (FLOMAX) 0.4 mg 90 capsule 3 Sig: Take 2 capsules by mouth once daily. Patient asking for more refils instead of 90 tablets. RX INSTRUCTIONS: Patient aware RX will be sent to pharmacy. No need to notify patient. Lynne Abbasi documented in this encounterMercy Health [facility]05-30-2023 Miscellaneous Notes* Telephone Encounter - Elke Le LPN - 01/16/2023 1:37 PM EDT Received 01/16/2023 from [facility]. Placed in provider's inbox for review. Route to [place] for scanning documented in this encounterMercy Health [facility]04-17-2023 Miscellaneous Notes* Telephone Encounter - Elke Le LPN - 12/04/2022 11:06 AM EDT Received 12/04/2022 from [facility]. Placed in provider's inbox for review. Route to [place] for scanning documented in this encounterMercy Health [facility]03-16-2023 Miscellaneous Notes* Telephone Encounter - Elke Le LPN - 11/02/2022 4:18 PM EDT Received 11/02/2022 from [facility]. Placed in provider's inbox for review. Route to [place] for scanning documented in this encounterMercy Health [facility]02-09-2023 Miscellaneous Notes* Telephone Encounter - Jessica Draper - 09/28/2022 2:44 PM EST Received visit summary from [facility]. Placed in provider's inbox for review. Route to [place] scanning. documented in this encounterMercy Health Defiance [facility] Miscellaneous Notes* Telephone Encounter - Elke Le LPN - 09/26/2022 11:50 AM EST Received 09/26/2022 from [facility]. Placed in provider's inbox for review. Route to [place] for review and scanning. documented in this encounterMer[facility]-12-2023 Miscellaneous Notes* Telephone Encounter - Jessica Draper - 08/31/2022 3:55 PM EST Received INR 3.0 and protime 31.1from [facility]. Placed in provider's inbox for review. Route to MA scanning Entered into pt chart documented in this [facility]11-10-2022 History of Present illness Narrative* Latonia Yarbrough MD - 06/29/2022 9:20 AM EST CHIEF COMPLAINT Patient presents with: medication f/u HISTORY OF PRESENT ILLNESS Harrison Milligan is a 82 year old male who presents here today for follow up management of medication. I last saw this patient on 01/03/22. Cardiac Health Patient is doing well on his regimen He continues to follow cardiology. Patient has a history of hypertension, hyperlipidemia and CHF Patient continues to take coumadin Health Maintenance Due for Shingrix series Due for COVID booster Due for routine colon cancer screening. Due for advance directive discussion. Due for depression screening. Due for influenza Due for routine labs. Labs reviewed. Past medical history, appointments, medications, allergies reviewed. REVIEW OF SYSTEMS Pertinent positives/ negatives General: Feels well, no fever, no chills, +obesity. HEENT: No sinus congestion, earache, sore throat. Cardiac: No chest pain, palpitations Resp: No cough, wheeze, shortness of breath GI: No reflux symptoms, food intolerance, bowel changes. : No urinary frequency, dysuria. MS: No pain or joint complaints. 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 Obese. Heart: Regular rate and rhythm. Normal S1 and S2. No murmurs, rubs, or gallops. Lungs: Clear to auscultation bilaterally. No respiratory distress. No wheezes, rales, or rhonchi. Abdomen: Soft, non-tender, no distention. Extremities: Feet/ankles without edema, posterior tibial pulses full and symmetrical. Data Reviewed Latest Reference Range & Units 05/03/22 00:00 05/24/22 00:00 06/21/22 00:00 INR 0.81 - 1.21 2.0 ! (E) 2.5 ! (E) 2.5 ! (E) PROTIME 11.7 - 14.9 22.6 ! (E) 26.5 ! (E) !: Data is abnormal (E): External lab result Assessment/Plan (I10) Essential hypertension (primary encounter diagnosis) (I50.32) Chronic diastolic CHF (congestive heart failure) (HCC) Comment: well controlled Plan: COMP METABOLIC PANEL (E78.2) Mixed hyperlipidemia Comment: due for labs Plan: LIPID PANEL BASIC (G47.33) PATRICIA (obstructive sleep apnea) (E66.9) Obesity, Class I, BMI 30-34.9 Comment: well controlled Plan: continue on current regimen (R73.03) Pre-diabetes Comment: due for labs Plan: HGB A1C Requested Prescriptions Signed Prescriptions Disp Refills tamsulosin (FLOMAX) 0.4 mg 90 capsule 3 Sig: Take 2 capsules by mouth once daily. bumetanide (BUMEX) 1 mg tablet 90 tablet 3 Sig: Take 1 tablet by mouth once daily. RTO: 6 months Scribe Attestation: By signing my name below, I, Yudelka Castro, attest that this documentation has been prepared under the direction and in the presence of Sanju Yarbrough M.D. Electronically Signed: Pk Lawrence. June 29, 2022 7:56 AM Provider Attestation: I, Latonia Yarbrough MD, personally performed the services described in this documentation. All medical record entries made by the scribe were at my direction and in my presence. I have reviewed the chart and discharge instructions (if applicable) and agree that the record reflects my personal performance and is accurate and complete. Electronically Signed: Latonia Yarbrough MD June 29, 2022 10:16 AM documented in this encounterMer[facility]11-02-2022 Miscellaneous Notes* Telephone Encounter - Jessica Mago - 06/21/2022 2:58 PM EDT Received INR results (2.5) from [facility]. Placed in provider's inbox for review. Entered into pt chart. Route to MA scanning. documented in this encounterMer[facility]10-05-2022 Miscellaneous Notes* Telephone Encounter - Cheralyn Confer - 05/24/2022 4:21 PM EDT Received INR (2.5) and Protime (26.5) results from [facility]. Placed in provider's inbox for review. Entered into pt chart. Route to MA scanning. documented in this encounterMercy [facility]09-14-2022 Miscellaneous Notes* Telephone Encounter - Cheralyn Confer - 05/03/2022 10:50 AM EDT Received INR (2.0) and protime (22.6) results from [facility]. Placed in provider's inbox for review. Entered into pt chart Route to MA scanning. documented in this encounterMercy [facility] Hospital08-24-2022 Miscellaneous Notes* Telephone Encounter - Cheralyn Confer - 04/12/2022 11:38 AM EDT Received INR/Protime results INR-1.8 Protime-20.8 from [facility]. Placed in provider's inbox for review. Entered in pt chart Route to MA scanning. documented in this encounterMercy [facility] Hospital08-24-2022 Miscellaneous Notes* Telephone Encounter - Cheralyn Confer - 04/12/2022 11:05 AM EDT Received liver and lipid results from [facility]. Placed in provider's inbox for review. Entered into pt chart. Route to MA scanning. documented in this encounterMercy [facility] Hospital07-28-2022 Miscellaneous Notes* Telephone Encounter - Cheralyn Confer - 03/16/2022 1:15 PM EDT Received visit note from [facility]. Placed in provider's inbox for review. Route to MA scanning. documented in this encounterMercy [facility] Hospital07-13-2022 Miscellaneous Notes* Telephone Encounter - Jessy Hairston PA-C - 03/01/2022 5:01 PM EDT Per 02/15 encounter, pt's natural resources specialist is managing. Jessy Hairston PA-C Covering for Dr. Yarbrough * Telephone Encounter - Jessica Confer - 03/01/2022 1:25 PM EDT Received INR results (1.9) from [facility]. Placed in provider's inbox for review. External results entered. Route to MA scanning. documented in this encounterMercy [facility] Hospital06-29-2022 Miscellaneous Notes* Telephone Encounter - Jessica Confer - 02/15/2022 5:37 PM EDT Called pt, natural resources specialist is managing. * Telephone Encounter - Latonia Yarbrough MD - 02/15/2022 3:19 PM EDT Please confirm who is managing the Coumadin. Is it natural resources specialist or Dr Yarbrough. Latonia Yarbrough MD * Telephone Encounter - Jessica Draper - 02/15/2022 11:47 AM EDT Received PT/INR results (PT-18.3, INR- 1.6) from [facility]. Adjust dosage as warranted. documented in this encounterMercy [facility] Hospital06-22-2022 Miscellaneous Notes* Telephone Encounter - Ghislaine Gillespie RN - 02/08/2022 3:31 PM EDT Spoke to , no change sin diet. Will increase coumadin per message below. Updated tracker. Patient's verbalizes understanding and has no other questions or concerns at this time. * Telephone Encounter - Arleen Ayala APRN.CNP - 02/08/2022 3:23 PM EDT Please let patient know his INR is 1.5. Any change in his diet? If patient is taking 10mg daily, then please have patient increase dose to 15mg 2 days per week and 10mg 5 days per week. Retest in 1 week. Thanks, Arleen Ayala APRN.CNP Data from Coumadin Tracker: PT INR 1.5 02/08/2022 PT INR 2.4 01/03/2022 PT INR 2.1 12/12/2021 Goal Range: The patient does not have an INR goal. Last Instructions: Description 10 mg daily INR one month (DT 07/13/2021) * Telephone Encounter - Jessica Draper - 02/08/2022 1:23 PM EDT Received INR results out of range at 1.5 from [facility]. Placed in provider's inbox for review. Route to MA scanning. documented in this encounterMercy [facility] Hospital06-14-2022 Miscellaneous Notes* Telephone Encounter - Elke Le LPN - 01/31/2022 1:52 PM EDT Received 01/31/2022 from [facility]. Placed in provider's inbox for review. Route to [place] for scanning documented in this encounterMercy Health [facility]iance Hospital06-07-2022 Miscellaneous Notes* Telephone Encounter - Jessica Confer - 01/24/2022 3:20 PM EDT Orders signed by PCP and faxed back to [facility]. * Telephone Encounter - Jessica Confer - 01/23/2022 8:41 AM EDT Received orders for PT from [facility]. Placed in provider's inbox for review. Route to [place] fax. documented in this encounterMercy Health [facility] Hospital06-06-2022 Miscellaneous Notes* Telephone Encounter - Elke Le LPN - 01/23/2022 9:31 AM EDT Received from [facility]. Placed in provider's inbox for review. Route to [place] for scanning documented in this encounterMercy Health [facility] Hospital05-31-2022 Miscellaneous Notes* Telephone Encounter - Jessica Confer - 01/17/2022 12:45 PM EDT Received orders for PT for review and pcp sign off from [facility]. Placed in provider's inbox for review. Route to [place] fax . documented in this encounterMercy Health [facility] Hospital05-31-2022 Miscellaneous Notes* Telephone Encounter - Jessica Confer - 01/17/2022 9:06 AM EDT Received OT discharge summary from [facility]. Placed in provider's inbox for review. Route to MA scanning. documented in this encounterMercy [facility] Hospital05-27-2022 Miscellaneous Notes* Telephone Encounter - Elke Le LPN - 01/13/2022 10:33 AM EDT Received 01/13/2022 from [facility]. Placed in provider's inbox for review. Route to MA scanning SN discharge summary documented in this encounterMercy Health [facility] Hospital05-23-2022 Miscellaneous Notes* Telephone Encounter - Jessica Draper - 01/09/2022 1:07 PM EDT Received update that pt is participating in tele-monitoring CHF program from [facility]. Placed in provider's inbox for review. Route to MA scanning. documented in this encounterMercy [facility]05-20-2022 Miscellaneous Notes* Telephone Encounter - Elke Le LPN - 01/06/2022 2:03 PM EDT Received 01/06/2022 from [facility] Placed in provider's inbox for review. Route to [place] for faxing [phone] Order to change Tamsulosin 0.4 mg 1 daily to two tablets daily documented in this encounterMercy Health [facility] Hospital05-17-2022 Miscellaneous Notes* Telephone Encounter - Jessica Draper - 01/03/2022 2:22 PM EDT Left detailed message and sent pt my chart message. * Telephone Encounter - Latonia Yarbrough MD - 01/03/2022 2:10 PM EDT Let him (or ) know INR is in therapeutic range Hba1c is below diabetes range, he can continue the metformin but doesn't need to check sugar regularly. His bp was low so he does need to increase fluids, and get in touch with cardiology. Latonia Yarbrough MD documented in this encounterMercy Health [facility]05-17-2022 History of Present illness Narrative* Latonia Yarbrough MD - 01/03/2022 11:00 AM EDT CHIEF COMPLAINT Patient presents with: Hospital Follow Up HISTORY OF PRESENT ILLNESS Harrison Milligan is a 81 year old male who presents here today for follow up hospital admission for heart failure. I last saw this patient on 11/01/20. Heart Failure Episode started 09/11/21 Patient was in the hospital from 10/29/21- 11/02/21 for heart failure He had multiple other issues while in the hospital. Patient had open heart surgery and then got COVID He is currently not strong enough to walk long distances Patient had been on Coumadin Patient has been having swelling in his legs and gaining weight. Health Maintenance Due for Shingrix series Due for depression screening. Due for routine colon cancer screening. Due for advance directive discussion. Labs reviewed. Past medical history, appointments, medications, allergies reviewed. REVIEW OF SYSTEMS Pertinent positives/ negatives: General: Feels well, no fever, no chills, +obesity. HEENT: No sinus congestion, earache, sore throat. Cardiac: +heart failure +low BP Resp: No cough, wheeze, shortness of breath GI: No reflux symptoms, food intolerance, bowel changes. : No urinary frequency, dysuria. MS: No pain or joint complaints. +leg edema PAST MEDICAL HISTORY PAST MEDICAL HISTORY Diagnosis Date Acute on chronic diastolic heart failure (HCC) Aortic valve stenosis CAD (coronary artery disease) Cerebrovascular disease 10/22/2018 High blood pressure HLD (hyperlipidemia) NSTEMI (non-ST elevated myocardial infarction) ([facility]) S/P AVR (aortic valve replacement) 10/29/2018 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 Obese. Heart: Regular rate and rhythm. Normal S1 and S2. No murmurs, rubs, or gallops. Lungs: Clear to auscultation bilaterally. No respiratory distress. No wheezes, rales, or rhonchi. Abdomen: Soft, non-tender, no distention. Extremities: Feet/ankles with edema, posterior tibial pulses full and symmetrical. Data Reviewed 12/30/21 CBC- Component Ref Range & Units 4 d ago (12/30/21) 3 wk ago (12/12/21) WBC 3.70 - 11.00 k/uL 7.63 8.3 R RBC 4.20 - 6.00 m/uL 4.27 3.95 Abnormal R Hemoglobin 13.0 - 17.0 g/dL 12.5 Low Hematocrit 39.0 - 51.0 % 39.3 MCV 80.0 - 100.0 fL 92.0 MCH 26.0 - 34.0 pg 29.3 MCHC 30.5 - 36.0 g/dL 31.8 RDW-CV 11.5 - 15.0 % 14.3 Platelet Count 150 - 400 k/uL 257 260 R MPV 9.0 - 12.7 fL 10.2 Absolute nRBC <0.01 k/uL <0.01 INR- Component Ref Range & Units 3 wk ago (12/12/21) 4 mo ago (08/23/21) 7 mo ago (05/11/21) 1 yr ago (11/19/20) INR 0.81 - 1.21 2.1 Abnormal 2.3 Abnormal 2.0 Abnormal 2.2 Abnormal PROTIME 23 WBC 4.0 - 11.0 K/uL 8.3 RBC 4.5 - 6.0 M/uL 3.95 Abnormal HGB 12 - 16 g/dL 11.7 Abnormal HCT 33 - 42 % 35.9 PLATELETS 150 - 379 k/uL 260 Glucose 90 BUN 13 Creatine mg/dL 0.80 GFR mL/MIN 99 GFR AFR AMER mL/MIN 120 T PROT 6 - 8.5 g/dL 6.2 ALB 3.2 - 5.2 g/dL 2.3 Abnormal GLOBULIN 3.9 Calcium 8.6 AST 24 Alk Phos 50 - 136 U/L 94 ALT 17 Total Bilirubin 0.30 NA 136 - 145 mmol/L 136 Potassium 4.0 Chloride 103 CO2 27 Anion Gap 6 Assessment/Plan (I48.0) Paroxysmal atrial fibrillation (HCC) (primary encounter diagnosis) (Z95.2) S/P AVR (Z79.01) prison current use of anticoagulant therapy Comment: patient having swelling and is due for an INR check Plan: INR (POC) (R73.03) Pre-diabetes Comment: due for labs Plan: HEMOGLOBIN A1C (POC) Signed Prescriptions Disp Refills bumetanide (BUMEX) 1 mg tablet Sig: Take 1 tablet by mouth once daily. ROYAL: No tamsulosin (FLOMAX) 0.4 mg Sig: Take 2 capsules by mouth once daily. ROYAL: No warfarin (COUMADIN) 5 mg tablet Sig: Take by mouth 10 mg daily, per Pt ( [facility] Heart group Dr. Kebede's monitors INR) ROYAL: No senna (SENNA) 8.6 mg tab Sig: Take 2 tablets by mouth twice daily. ROYAL: No RTO: 3 months Scribe Attestation: By signing my name below, IYudelka, attest that this documentation has been prepared under the direction and in the presence of Sanju Yarbrough M.D. Electronically Signed: Pk Lawrence. January 03, 2022 9:47 AM Provider Attestation: I, Latonia Yarbrough MD, personally performed the services described in this documentation. All medical record entries made by the scribe were at my direction and in my presence. I have reviewed the chart and discharge instructions (if applicable) and agree that the record reflects my personal performance and is accurate and complete. Electronically Signed: Latonia Yarbrough MD. January 03, 2022 2:13 PM documented in this encounterMercy Health Defiance Hospital05-12-2022 Evaluation + Plan note Extracted from: Title:IR pre-procedure H&P - cholangiogram with possible intervention Author:AYLIN HERRERA PA-C Date:12/29/21 IR PREPROCEDURE H&P UPDATE IF A HISTORY AND PHYSICAL EXAMINATION HAS BEEN COMPLETED PRIOR TO ADMISSION TO THE HOSPITAL, AN UPDATED EXAMINATION MUST BE COMPLETED AND DOCUMENTED WITHIN 24 HOURS AFTER ADMISSION OR REGISTRATION BUT BEFORE A SURGICAL PROCEDURE. I have examined the patient, reviewed the H&P, and there are no changes unless noted below: last dose of Warfarin 10 mg last night The most recent H&P/Office Note was performed on 12/20/2021 and can be found in the [facility] ([place]). Aylin Herrera PA-C Interventional Radiology Pager: [phone] IR dept: x [phone] [facility] Appointment Date:01/03/2022 03:00:00 PM Scheduled Provider:OLAMIDE SEGURA JR, MD Location:[facility] Appointment Type:GS OV Check after Test Appointment Date:03/10/2022 03:15:00 PM Scheduled Provider: Location:[facility] Appointment Type:CV OV Future Scheduled Tests Radiology* IR Cholecystotomy Tube Change w/ Guide 12/29/21 * IR Cholecystotomy Tube Change w/ Guide 12/29/21 * IR Cholecystotomy Tube Change w/ Guide 02/23/22 * IR Cholecystotomy Tube Change w/ Guide 04/20/22 * IR Cholecystotomy Tube Change w/ Guide 06/15/22 * IR Cholecystotomy Tube Change w/ Guide 08/10/22 * IR Cholecystotomy Tube Change w/ Guide 10/05/22 * IR Cholecystotomy Tube Change w/ Guide 11/30/22 [facility] 05-12-2022 Hospital Discharge instructions Patient Education 12/29/2021 09:42:50 Radiology- Catherter Removal 12/03/2019(CUSTOM) [facility] Catheter Removal Discharge Instructions Interventional Radiology [facility] [address] [place] [address] DIET: Resume your regular diet as tolerated. Special diet instructions: ACTIVITY: Rest for the remainder of the day. You may resume your normal activity tomorrow. You may bathe, but wait 24 hours until the dressing is removed to shower. Do not soak or submerge site until a scab forms. No swimming or hot tubs. No heavy lifting, pushing, or straining. Special activity instructions: DRESSING: Check the site for bleeding. Apply pressure to the site if bleeding excessively and call your physician. The dressing can be removed after 24 hours. Special dressing instructions: PAIN CONTROL: The removal site may be sore for 1 to 2 days following the procedure. [id number] pain medication should be used for pain or discomfort. Please check with the physician who ordered this procedure for you for their specific recommendations. If your pain is not relieved or becomes more severe, notify the physician who sent you for this procedure. Special instructions: MEDICATION: Please resume on . WHEN TO SEEK MEDICAL CARE: You should contact your physician or visit your local emergency room promptly if any of the following occur: Lightheadedness, dizziness, or fainting Infection Rarely, infection at the site where the catheter was removed may occur. Signs and symptoms include a fever greater than 101 degrees, chills, redness, warmth, swelling, increased pain, bleeding or pusfrom the puncture site. If you experience any of these issues during the first 24 hours, please follow the instruction below: 8:00 am- 5:00 pm call [phone] After 5:00 pm call [phone] After 24 hours, contact the physician who ordered this procedure for you. Special Instructions: Follow Up Care 12/22/2021 16:25:10 With:Follow up with primary care provider Address:Unknown When: Unknown [facility] 05-09-2022 Miscellaneous Notes* Telephone Encounter - Rebeca Chen APRN.CNP - 12/26/2021 9:33 AM EDT Noted. Rebeca Chen APRN.CNP * Telephone Encounter - Kaylie Mederos - 12/26/2021 9:15 AM EDT [facility] stated they did an OT eval on this patient. They will see him for 4 visits over the next 2-3 weeks. . documented in this encounterMercy Health Defiance Hospital05-06-2022 Miscellaneous Notes* Telephone Encounter - Elke Le LPN - 12/23/2021 8:15 AM EDT Received 12/22/2021 from [facility]. Placed in provider's inbox for review. Route to [place] for scanning documented in this encounterMercy Health Defiance Hospital05-06-2022 Miscellaneous Notes* Telephone Encounter - Elke Le LPN - 12/23/2021 8:12 AM EDT Received 12/22/2021 from [facility]. Placed in provider's inbox for review. Route to [place] for scanning Multiple labs 10/29/2021 documented in this encounterMercy Health [facility] Hospital05-06-2022 Miscellaneous Notes* Telephone Encounter - Elke Le LPN - 12/23/2021 7:57 AM EDT Received 12/22/2021 from [facility]. Placed in provider's inbox for review. Route to [place] for scanning Multiple dates for lab draws. Dr Plunkett - [facility] documented in this encounterMercy Health Defiance Hospital05-06-2022 Miscellaneous Notes* Telephone Encounter - Elke Le LPN - 12/23/2021 7:40 AM EDT Received 12/23/2021 from [facility]. Placed in provider's inbox for review. Route to [place] for scanning. documented in this encounterMercy Health Defiance Hospital03-15-2022 HCoV 229E RNA GETACHEW+non- probe Ql (Nph)Not Detected *NA* (11/01/21 1:44 PM)AH [employer] Viro/Sero [id number] Evaluation + Plan noteExtracted from: Title:History and Physical Author:ADELITA BAUTISTA GED PREPARATION TEACHER-EXECUTIVE CREATIVE DIRECTOR Date:10/29/21 1. Cholecystitis 2. Abdominal pain 3. Bacteremia 4. CAD 5. Aortic stenosis 6. A. fib on warfarin 7. Hypertension 8. HFpEF 9. Chronic hypoxic respiratory failure secondary to COVID-19 Presented to [facility] emergency department for a 2-day history of abdominal pain, CT of the abdomen there demonstrated prominent distention of the gallbladder with pericholecystic fluid, inflammation, and edema concerning for acute cholecystitis. Patient was recently admitted to hospital for bacteremia, discharged on 6 weeks of IV cefazolin and oral rifampin. Will initiate on IV Zosyn here. Repeat CBC, CMP, INR as patient is on warfarin chronically. Will consult general surgery, appreciate the recommendation. Abdominal pain secondary above, as needed IV pain medication, IV antiemetics. Patient states he was was recently having diarrhea as well, was requesting an enema. Will hold off on this. Continue home stool softeners. Patient was recently admitted for bacteremia. Was discharged on 6 weeks of of oral rifampin and IV cefazolin. We will continue rifampin, hold off on cefazolin as patient is on Zosyn currently secondary to acute cholecystitis. Okay to use PICC line, chest x-ray from [place] ER demonstrated tip in the SVC, no pneumothorax. History of CAD, patient had a CABG in 2018. On statin, aspirin at home. Hold statin until liver enzymes are evaluated. History of aortic stenosis with AVR in 2019. Stable. History of A. fib, on metoprolol and warfarin at home. Will evaluate INR, continue metoprolol. History of hypertension, hemodynamically stable. Continue medications. History of heart failure with preserved ejection fraction, currently euvolemic. Patient was admitted to the hospital for COVID-19 in August, suffers from chronic hypoxic respiratory failure secondary to this. On 3 L nasal cannula at baseline, he is currently on this. DVT prophylaxis: Warfarin CODE STATUS: DNR/DNI Plan of care discussed with patient the bedside, case discussed with collaborating physician Dr. Katherine Mcfadden. This dictation was performed using voice recognition software and may include grammatical and/or spelling errors. Addendum by KATHERINE MCFADDEN DO on October 29, 2021 14:07:16 EST This is a shared/split visit with Héctor Bautista CNP. Patient independently interviewed and examined. Additional comments below: Patient was admitted to [facility] on 10/29/2021 as a transfer from [facility]. Patient was sent from his snf facility for abdominal pain and worsening leukocytosis. Patient has the past medical history significant for severe aortic stenosis status post TAVR in 2019, coronary artery disease status post bypass grafting in 2018, atrial fibrillation on chronic anticoagulation on Coumadin, heart failure with preserved ejection fraction, hypertension and COVID-19 pneumonia in August 2021. Patient was recently admitted to [facility] from 10/06/2021 through 10/20/2021 EKG showed bradycardia and second-degree AV block type I. Patient was admitted under the cardiology service. Beta-blockers were discontinued. During his hospitalization, the initial 2/2 blood culture positive for Staph epidermidis on 10/07/2021. Subsequent blood cultures again showed Staph epidermidis in 1/2 vials on 10/09/2021. Transesophageal echocardiogram was performed on 10/13/2021 that showed an echodensity on the bioprosthetic aortic valve that was concerning for infective endocarditis. Infectious these was consulted for which patient was treated with cefazolin and rifampin. MRI of thoracic and lumbar spine showed no evidence of discitis or osteomyelitis. Subsequent transesophageal echocardiogram showed no evidence of bioprosthetic aortic valve infective endocarditis. Patient was discharged with PICC line for 6-week course of cefazolin and rifampin. Leukocyte count at the time of discharge on 10/21/2021 showed hemoglobin 8.1. Leukocyte count at the facility was high as 19. Leukocyte count at the [place] emergency department was 19.8. Chest x-ray showed patchy airspace disease through the right lung. CT abdomen/pelvis was performed which showed prominent distention of the gallbladder with pericholecystic fluid and inflammation with edema concerning for acute cholecystitis. Patient did have right lower lobe nephrolithiasis which measured 7.2 mm in size that was nonobstructing. Due to recent complex medical care at [facility], patient was transferred directly from the [place] emergency department to [facility] under the Hospitalist service. Patient has significant right upper quadrant abdominal tenderness. Laboratory data shows leukocytosis of 19.0. INR 2.1. General surgery was consulted who felt patient would be a poor surgical candidate with recommendations for IR biliary drain insertion. Patient will be ordered 2 units FFP due to INR 2.1 with upcoming IR procedure. Patient was continued on Zosyn and rifampin. Infectious these will be consulted for further recommendations regarding antibiotic treatment. Future Appointments Appointment Date:11/10/2021 09:45:00 AM Scheduled Provider: Location:[facility] Appointment Type:CV OV Appointment Date:12/29/2021 09:00:00 AM Scheduled Provider: Location:IR Appointment Type:IR Cholecystotomy Tube Change w/ Guide Future Scheduled Tests Radiology* IR Cholecystotomy Tube Change w/ Guide 12/29/21 [facility] 03-12-2022 Hospital Discharge instructions Patient Education 10/29/2021 11:14:07 6- FAQ about Catheter-Associated Bloodstream Infections (10/29 IC)(CUSTOM) FAQs (frequently asked questions) about Catheter-Associated Bloodstream Infections (also known as Central Line-Associated Bloodstream Infections ) What is a catheter-associated bloodstream infection? A central line or central catheter is a tube that is placed into a patient s large vein, usually in the neck, chest, arm, or groin. The catheter is often used to drawblood, or give fluids or medications. It may be left in place for several weeks. A bloodstream infection can occur when bacteria or other germs travel down a central line and enter the blood. If you develop a catheter- associated blood stream infection you may become ill with fevers and chills or the skin around the catheter may become sore and red. Can a catheter-related bloodstream infection be treated? A catheter-associated bloodstream infection is serious, but often can be successfully treated with antibiotics. The catheter might need to be removed if you develop an infection. What are some of the things that hospitals are doing to prevent catheter- associated bloodstream infections? To prevent catheter-associated bloodstream infections doctors and nurses will: Choose a vein where the catheter can be safely inserted and where the risk for infection is small. Clean their hands with soap and water or an alcohol-based hand rub before putting in the catheter. Wear a mask, cap, sterile gown, and sterile gloves when putting in the catheter to keep it sterile.The patient will be covered with a sterile sheet. Clean the patient s skin with an antiseptic cleanser before putting in the catheter. Clean their hands, wear gloves, and clean the catheter opening with an antiseptic solution before using the catheter to draw blood or give medications. Healthcare providers also clean their hands andwear gloves when changing the bandage that covers the area where the catheter enters the skin. Decide every day if the patient still needs to have the catheter. The catheter will be removed as soon as it is no longer needed. Carefully handle medications and fluids that are given through the catheter. What can I do to help prevent a catheter-associated bloodstream infection? Ask your doctors and nurses to explain why you need the catheter and how long you will have it. Ask your doctors and nurses if they will be using all of the pre vention methods discussed above. Make sure that all doctors and nurses caring for you clean their hands with soap and water or an alcohol-based hand rub before and after caring for you. If the bandage comes off or becomes wet or dirty, tell your nurse or doctor immediately. Inform your nurse or doctor if the area around your catheter is sore or red. Do not let family and friends who visit touch the catheter or the tubing. Make sure family and friends clean their hands with soap and water or an alcohol-based hand rub before and after visiting you. What do I need to do when I go home from the hospital? Some patients are sent home from the hospital with a catheter in order to continue their treatment.If you go home with a catheter, your doctors and nurses will explain everything you need to know about taking care of your catheter. Make sure you understand how to care for the catheter before leaving the hospital. For example, askfor instructions on shower ing or bathing with the catheter and how to change the catheter dressing. Make sure you know who to contact if you have questions or problems after you get home. Make sure you wash your hands with soap and water or an alcohol-based hand rub before handling yourcatheter. Watch for the signs and symptoms of catheter-associated blood stream infection, such as soreness orredness at the catheter site or fever, and call your healthcare provider immediately if any occur. If you have questions, please ask your doctor or nurse. Co-sponsered by: WOMACK, IDSA, AHA, APIC, CDC, The Joint Commission 10/29/2021 11:14:07 6- FAQ about Catheter-Associated UTI (10/29 IC)(CUSTOM) FAQs (frequently asked questions) about Catheter-Associated Urinary Tract Infection What is catheter-associated urinary tract infection ? A urinary tract infection (also called UTI ) is an infection in the urinary system, which includes the bladder (which stores the urine) and the kid neys (which filter the blood to make urine). Germs (for example, bacteria or yeasts) do not normally live in these areas; but if germs are introduced, an infection can occur. If you have a urinary catheter, germs can travel along the catheter and cause an infection in your bladder or your kidney; in that case it is called a catheter- associated urinary tract infection (or CA-UTI ). What is a urinary catheter? A urinary catheter is a thin tube placed in the bladder to drain urine. Urine drains through the tube into a bag that collects the urine. A urinary catheter may be used: If you are not able to urinate on your own To measure the amount of urine that you make, for example, during intensive care During and after some types of surgery During some tests of the kidneys and bladder People with urinary catheters have a much higher chance of getting a urinary tract infection than people who don t have a catheter. How do I get a catheter-associated urinary tract infection (CA-UTI)? If germs enter the urinary tract, they may cause an infection. Many of the germs that cause a catheter-associated urinary tract infection are com mon germs found in your intestines that do not usually cause an infection there. Germs can enter the urinary tract when the catheter is being put in or while the catheter remains in the bladder. What are the symptoms of a urinary tract infection? Some of the common symptoms of a urinary tract infection are: Burning or pain in the lower abdomen (that is, below the stomach) Fever Bloody urine may be a sign of infection, but is also caused by other problems Burning during urination or an increase in the frequency of urination after the catheter is removed. Sometimes people with catheter-associated urinary tract infections do not have these symptoms of infection. Can catheter-associated urinary tract infections be treated? Yes, most catheter-associated urinary tract infections can be treated with antibiotics and removal or change of the catheter. Your doctor will deter mine which antibiotic is best for you. What are some of the things that hospitals are doing to prevent catheter- associated urinary tract infections? To prevent urinary tract infections, doctors and nurses take the following actions. Catheter insertion * Catheters are put in only when necessary and they are removed as soon as possible. * Only properly trained persons insert catheters using sterile ( clean ) technique. * The skin in the area where the catheter will be inserted is cleaned before inserting the catheter. * Other methods to drain the urine are sometimes used, such as External catheters in men (these look like condoms and are placed over the penis rather than into the penis) Putting a temporary catheter in to drain the urine and removing it right away. This is called intermittent urethral catheterization. Catheter care * Healthcare providers clean their hands by washing them with soap and water or using an alcohol-based hand rub before and after touching your catheter. a * Avoid disconnecting the catheter and drain tube. This helps to pre vent germs from getting intothe catheter tube. * The catheter is secured to the leg to prevent pulling on the catheter. * Avoid twisting or kinking the catheter. * Keep the bag lower than the bladder to prevent urine from backflow ing to the bladder. * Empty the bag regularly. The drainage spout should not touch any thing while emptying the bag. What can I do to help prevent catheter-associated urinary tract infections if I have a catheter? Always clean your hands before and after doing catheter care. Always keep your urine bag below the level of your bladder. Do not tug or pull on the tubing. Do not twist or kink the catheter tubing. Ask your healthcare provider each day if you still need the catheter. What do I need to do when I go home from the hospital? If you will be going home with a catheter, your doctor or nurse should explain everything you need to know about taking care of the catheter. Make sure you understand how to care for it before you leave the hospital. If you develop any of the symptoms of a urinary tract infection, such as burning or pain in the lower abdomen, fever, or an increase in the frequency of urination, contact your doctor or nurse immediately. Before you go home, make sure you know who to contact if you have questions or problems after you get home. If you have questions, please ask your doctor or nurse. Co-sponsered by: WOMACK, IDSA, AHA, APIC, CDC, The Joint Commission Follow Up Care 10/29/2021 08:56:03 With:[facility], [facility], ; ambulance transport arranged through [place], Ext. [phone], leaving unit at 7:30pm. Address:Unknown When:1-2 days With:NOT PHYSICIAN Address:Unknown When:1-2 days With:CYNDIE BARRY BA, MD, Infectious Disease, Infectious Disease Group Address: When:1-2 days With:OLAMIDE SEGURA JR, MD, Surgery Address: [phone] When:1-2 days With:MATEUS KAMARA MD, [facility], Urology Service Address: [phone] When:1-2 days With:CAROLA BELTRAN MD, [facility] Address: [phone] When: Unknown Comments:As needed, call with questions or concerns regarding your cholecystostomy tube (drainage tube within the gallbladder).Plan for a routine exchange in 8 weeks at [facility]. [facility] 03-04-2022 Hospital Discharge instructions Patient Education 10/21/2021 12:43:11 Third-Degree Atrioventricular Block Third-Degree Atrioventricular Block Third-degree AV block (complete block) is a condition that causes the signals that travel from the heart s upper chambers (atria) to its lower chambers (ventricles) to be completely blocked. It is the most serious type of heart block. As a result, certain cells in the heart cause the ventricles to contract and pump blood (escape beats). These cells act as a sort of backup system. However, this backup system works at a much slower rate than normal, and it is not enough to keep your heart workingwell. What are the causes? This condition may be caused by: Any condition that damages the electrical pathway that controls the heart s rate and rhythm, such as a heart attack. Some medicines that slow down the heart rate, such as beta blockers or calcium channel blockers. Surgery that damages the heart. Overstimulation of the nerve that slows down heart rate (vagus nerve). This cause is common among well-conditioned athletes. Some people are born with this condition (congenital heart block), but most people develop it over time. What increases the risk? The risk for this condition increases with age. You are also more likely to develop this condition if you have: A history of heart attack. Heart failure. Coronary heart disease. Inflammation of heart muscle (myocarditis). Disease of heart muscle (cardiomyopathy). Infection of the heart valves (endocarditis). Infections or diseases that affect the heart. These include: ?Lyme disease. ?Sarcoidosis. ?Hemochromatosis. ?Rheumatic fever. ?Certain muscle disorders. Babies are more likely to be born with heart block if: The child's mother has an autoimmune disease, such as lupus. The baby is born with a heart defect that affects the heart s structure. A parent was born with a heart defect. What are the signs or symptoms? Symptoms of this condition include: Tiredness. Shortness of breath. Dizziness. Light-headedness. Fainting. Chest pain. How is this diagnosed? This condition may be diagnosed based on: A physical exam. Your medical history. A measurement of your pulse or heartbeat. Tests, which may include: ?An electrocardiogram (ECG). This checks for problems with electrical activity in your heart. ?Ambulatory cardiac monitoring. This is a portable ECG that you wear. It checks your heart's rhythm. ?An electrophysiology (EP) study. Long, thin tubes (catheters) are placed in your heart. The catheters give information about your heart's electrical signals. How is this treated? This condition must be treated right away at a hospital. Treatment may involve: Treating an underlying condition, such as heart disease. Changing or stopping any heart medicines that may have caused heart block. Having a permanent pacemaker placed in your chest. A pacemaker uses electrical pulses to help the heart beat normally. It is usually placed under the skin on your chest or abdomen. Follow these instructions at home: Alcohol use Do not drink alcohol if: ?Your health care provider tells you not to drink. ?You are , may be , or are planning to become . If you drink alcohol, limit how much you have: ?0 1 drink a day for women. ?0 2 drinks a day for men. ?Be aware of how much alcohol is in your drink. In the [place] one drink equals one typical bottle ofbeer (12 oz), one-half glass of wine (5 oz), or one shot of hard liquor (1 oz). General instructions Take dsnx-dpx-rjcymne and prescription medicines only as told by your health care provider. Follow your health care provider's recommendations to help reduce your risk for heart disease. Thismay include: ?Exercising at least 30 minutes on 5 or more days each week (150 minutes). Ask your health care provider what type of exercise is safe for you. ?Eating a heart-healthy diet with fruits and vegetables, whole grains, low-fat dairy products, and lean proteins like poultry and eggs. Your health care provider or dietitian can help you make healthy choices. ?Maintaining a healthy weight. Do not use any products that contain nicotine or tobacco, such as cigarettes and e-cigarettes. If you need help quitting, ask your health care provider. Keep all follow-up visits as told by your health care provider. This is important. Contact a health care provider if you: Feel like your heart is skipping beats. Feel more tired than normal. Have swelling in your lower legs or your feet. Get help right away if you: Have symptoms that change or get worse. Develop new symptoms. Have chest pain, especially if the pain: ?Feels like crushing or pressure. ?Spreads to your arms, back, neck, or jaw. Feel short of breath. Feel light-headed or weak. Faint. These symptoms may represent a serious problem that is an emergency. Do not wait to see if the symptoms will go away. Get medical help right away. Call your local emergency services (911 in the [place] Do not drive yourself to the hospital. Summary Third-degree AV block, also called complete block, is the most serious type of heart block. In thiscondition, the signals that control heart rate are completely blocked. Third-degree heart block is a medical emergency that should be treated right away at a hospital. Treatment may include the placement of a temporary or permanent pacemaker, which uses electrical pulses to help the heart beat normally. It is usually placed under the skin on your chest or abdomen. This information is not intended to replace advice given to you by your health care provider. Make sure you discuss any questions you have with your health care provider. Document Released: 07/19/2009 Document Revised: 09/18/2018 Document Reviewed: 09/18/2018 [employer] Patient [employer]. Follow Up Care 10/06/2021 07:55:31 With:[facility], Skilled return, Address:Unknown When:1-2 days With:CYNDIE BARRY BA, MD, Infectious Disease, Infectious Disease Group, Infectious Disease, Infectious Disease Group Address: When: Unknown Comments:please make an appointment to f/u in 4 weeks With:SABA DAVALOS MD Address: [address] [place] [address] [id number] [facility] [place] [address]- [phone] When:11/10/2021 09:45:00 With:Nursing Facility to make a referral for Palliative Care Services through [facility] for Palliative Care Services. Address:Unknown When:1-2 days With:NOT PHYSICIAN Address:Unknown When:1-2 days With:RN Driver Utility Worker Address: When:1-2 days Comments:RN CC will call you at home after discharge. If you have any non- emergent questions or needs, please call [phone], Mon.- Fri., 08:00 -- 04:30 [facility] Miscellaneous Notes* Telephone Encounter - Elke Le LPN - 10/11/2021 9:28 AM EST Received 10/11/2021 from [facility]. Placed in provider's inbox for review. Route to [place] for scanning 12 lead EKG [facility] Miscellaneous Notes* Telephone Encounter - Elke Le LPN - 10/10/2021 10:21 AM EST Received 10/10/2021 from [facility] Placed in provider's inbox for review. Route to [place] for scanning. documented in [facility]Mer[facility] Evaluation + Plan note Extracted from: Title:History and Physical Author:DIMITRY SCHMIDT Date:10/06/21 #Complete heart block Patient presents to [facility] with severe bradycardia found to be in complete heart block with junctional escape rhythm with heart rate around 35 bpm. Patient is on metoprolol tartrate 50 mg twice daily at home. Patient denies any lightheadedness, dizziness, shortness of breath, chest pain. Patient's troponin on admission was 77 with nonischemic EKG. Consult EP. Appreciate recommendations Obtain echocardiogram. Await results #CAD status post CABG Patient is a history of CAD status post CABG in 2018. Patient is currently guideline directed medical therapy including atorvastatin, metoprolol tartrate. Patient's troponin on admission was 77 with nonischemic EKG. Patient denies any chest pain, shortness of breath, lightheadedness/dizziness or any other anginal equivalents. #Paroxysmal atrial fibrillation on warfarin Patient is a history of proximal atrial fibrillation with a [id number] score of 5 for HFpEF, CAD, hypertension, age. Patient is on warfarin as an outpatient with his most recent INR 2.0. Patient has complete heart block and will likely require permanent pacemaker implantation during this hospitalization. We will discontinue warfarin and start patient on a heparin drip. #Hypertension We will hold all antihypertensive regimen in the setting of complete heart block to avoid shock. #PATRICIA Encourage CPAP compliance. Recommend weight loss as an outpatient For remainder of chronic medical conditions, continue patient's home medications. Case discussed with attending. See attending addendum for additional details. Addendum by Ana DAVALOS MD on October 07, 2021 16:01:57 EST Patient is admitted with complete heart block. His ventricular escape and is hemodynamically stable. EP has been consulted. Beta-blockers have been discontinued. I have personally seen, examined, and evaluated the patient on the encounter date. I have reviewed the fellow s documentation and agree with the fellow s findings and plan as documented, unless otherwise stated. Future Appointments Appointment Date:11/10/2021 09:45:00 AM Scheduled Provider: Location:[facility] Appointment Type:CV [facility] 02-11-2022 Miscellaneous Notes* Telephone Encounter - Elke Le LPN - 09/30/2021 10:14 AM EST Received 09/30/2021 from [facility]. Placed in provider's inbox for review. Route to [place] for scanning documented in this encounterMer[facility]02[facility]-2022 Miscellaneous Notes* Telephone Encounter - Elke Le LPN - 09/29/2021 8:04 AM EST Orders for Warfarin and Lovenox faxed to home health 09/28/2021. Received confirmation that Transmission okay. documented in this encounterMer[facility]01-31-2022 Miscellaneous Notes* Telephone Encounter - Elke Le LPN - 09/19/2021 12:50 PM EST Received 09/19/2021 from [facility] . Placed in provider's inbox for review. Route to [place] for scanning Patient returned to ER 09/17 via EMS was admitted for Hypoxia Covid-19 documented in this encounterMer[facility]01-31-2022 Miscellaneous Notes* Telephone Encounter - Elke Le LPN - 09/19/2021 12:45 PM EST Received 09/19/2021 from [facility] . Placed in provider's inbox for review. Route to [place] for scanning documented in this encounterMer[facility]01-27-2022 Miscellaneous Notes* Telephone Encounter - Elke Le LPN - 09/15/2021 2:52 PM EST Received 09/15/2021 from [facility]. Placed in provider's inbox for review. Route to [place] for scanning 12 lead EKG 09/13/2021 documented in this encounterMer[facility]01-27-2022 Miscellaneous Notes* Telephone Encounter - Elke Le LPN - 09/15/2021 10:22 AM EST Received 09/15/2021 from [facility]. Placed in provider's inbox for review. Route to [place] for scanning documented in this encounterMer[facility]01[facility]-2022 Miscellaneous Notes* Telephone Encounter - Rebeca Chen APRN.CNP - 09/13/2021 8:51 AM EST Pt went to ER on 09/11 for weakness, ill symptoms and fall--admitted due to profound weakness and fatigue. Suspect acute covid infection * Telephone Encounter - Elke Le LPN - 09/12/2021 9:55 AM EST Received 09/12/2021 from [facility]. Placed in provider's inbox for review. Route to [place] Dr Yarbrough [facility]* Diagnosis Onset Date Resolution Status COVID-19 September 11, 2021 resolved [facility] Work Phone: [phone] 510-948203-12-2019 Evaluation note* Diagnosis Onset Date Resolution Status H/O aortic valve replacement October 29, 2018 chronic H/O coronary artery bypass surgery October 29, 2018 chronic COVID-19 September 11, 2021 resolved Open facial wound resolved COVID-19 September 11, 2021 resolved [facility] Work Phone: [phone]) 247-814603-12-2019 Evaluation note* Diagnosis Onset Date Resolution Status Essential (primary) hypertension chronic H/O aortic valve replacement October 29, 2018 chronic H/O coronary artery bypass surgery October 29, 2018 chronic Left ventricular diastolic dysfunction chronic Paroxysmal atrial fibrillation chronic [facility] Work Phone: Evaluation + Plan note Future Appointments Appointment Date:12/09/2021 01:30:00 PM Scheduled Provider: Location:[facility] Appointment Type:CV OV Appointment Date:12/20/2021 01:30:00 PM Scheduled Provider:OLAMIDE SEGURA JR, MD Location:Gen Surg [facility] Appointment Type:GS OV Follow Up Appointment Date:12/29/2021 09:00:00 AM Scheduled Provider: Location:IR Appointment Type:IR Cholecystotomy Tube Change w/ Guide Future Scheduled Tests Radiology* IR Cholecystotomy Tube Change w/ Guide 12/29/21 * IR Cholecystotomy Tube Change w/ Guide 12/29/21 * IR Cholecystotomy Tube Change w/ Guide 02/23/22 * IR Cholecystotomy Tube Change w/ Guide 04/20/22 * IR Cholecystotomy Tube Change w/ Guide 06/15/22 * IR Cholecystotomy Tube Change w/ Guide 08/10/22 * IR Cholecystotomy Tube Change w/ Guide 10/05/22 * IR Cholecystotomy Tube Change w/ Guide 11/30/22 [facility] Evaluation + Plan note Future Appointments Appointment Date:12/29/2021 09:00:00 AM Scheduled Provider: Location:IR Appointment Type:IR Cholecystotomy Tube Change w/ Guide Appointment Date:03/10/2022 03:15:00 PM Scheduled Provider: Location:[facility] Appointment Type:CV OV Future Scheduled Tests Radiology* IR Cholecystotomy Tube Inject W/Guide 12/20/21 * IR Cholecystotomy Tube Change w/ Guide 12/29/21 * IR Cholecystotomy Tube Change w/ Guide 12/29/21 * IR Cholecystotomy Tube Change w/ Guide 02/23/22 * IR Cholecystotomy Tube Change w/ Guide 04/20/22 * IR Cholecystotomy Tube Change w/ Guide 06/15/22 * IR Cholecystotomy Tube Change w/ Guide 08/10/22 * IR Cholecystotomy Tube Change w/ Guide 10/05/22 * IR Cholecystotomy Tube Change w/ Guide 11/30/22 [facility] Evaluation note* Diagnosis Medication management Encounter for long-term (current) use of other medications [facility]* Diagnosis Paroxysmal atrial fibrillation (HCC)- Primary Atrial fibrillation S/P AVR Heart valve replaced by other means prison current use of anticoagulant therapy Long-term (current) use of anticoagulants Pre-diabetes Other abnormal glucose Pedal edema Edema documented in this encounter [facility] noteNo assessment information availableWTriHealth [facility] Work Phone: Evaluation note* Diagnosis Essential hypertension- Primary Unspecified essential hypertension Mixed hyperlipidemia Chronic diastolic CHF (congestive heart failure) (HCC) Chronic diastolic heart failure PATRICIA (obstructive sleep apnea) Obstructive sleep apnea (adult) (pediatric) Obesity, Class I, BMI 30-34.9 Obesity, unspecified Pre-diabetes Other abnormal glucose [facility] in this [facility]* Diagnosis Pre-diabetes Other abnormal glucose documented in this encounter [facility]* Diagnosis Medication management Encounter for long-term (current) use of other medications documented in this encounter [facility] note* Diagnosis Type 2 diabetes mellitus with other skin ulcer, without long-term current use of insulin (HCC)- Primary Obesity, Class I, BMI 30-34.9 Obesity, unspecified Essential hypertension Unspecified essential hypertension Chronic diastolic CHF (congestive heart failure) (HCC) Chronic diastolic heart failure Paroxysmal atrial fibrillation (HCC) Atrial fibrillation BMI 40.0-44.9, adult (HCC) 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, 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 Long-term (current) use of anticoagulants Left leg weakness Other musculoskeletal symptoms referable to limbs Mixed hyperlipidemia Noninfected skin tear of right lower extremity, subsequent encounter documented in this encounter [facility]* Diagnosis Pre-diabetes Other abnormal glucose documented in this encounter [facility] note* Diagnosis Pre-diabetes Other abnormal glucose documented in this encounter [facility] note* Diagnosis Pre-diabetes- Primary Other abnormal glucose Screening for depression Encounter for screening examination for other mental health and behavioral disorders Essential hypertension Unspecified essential hypertension Encounter for immunization Need for other specified prophylactic vaccination against single bacterial disease BMI 40.0-44.9, adult ([facility]) 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, adult Chronic diastolic CHF (congestive heart failure) ([facility]) Chronic diastolic heart failure documented in this encounter [facility] note* Diagnosis Pre-diabetes Other abnormal glucose documented in this encounter [facility] note* Diagnosis Pre-diabetes Other abnormal glucose [facility] Narrative No data available for this section [facility] Hospital Discharge instructions No data available for this section [facility] Work Phone: [facility] Dis[facility] instructionsK[facility] Work Phone: [facility] Dis[facility] instructionsK[facility] Work Phone: [facility] Dis[facility] instructions[facility] Work Phone: [facility] instructions[facility] Work Phone: [facility] Work Phone: [facility] Work Phone: [facility] instructions[facility] Work Phone: [facility] instructions[facility] Work Phone: [facility] Dis[facility] instructions[facility] Work Phone: [facility] Dis[facility] instructionsK[facility] Work Phone: Hospital Discharge instructionsWTriHealth [facility] Work Phone: Progress note No data available for this section [facility] Reason for referral (narrative)No reason for referral information availableK[facility] Work Phone: Summary Purpose Family History No Family History Records Found Relationship Condition Age at Onset Recorded Date/T singh mother Hypertension Unknown Cardiac disease Unknown Diabetes mellitus Unknown father Hypertension Unknown Kidney disorder Unknown Advance Directives No Advanced Directives Records FoundDocuments on File Type Date Recorded Patient Patternator Expl anation Advance Directive(s) 10/24/2018 4:34 PM Date Activated Date Inactivated Comments 10/29/2018 8:50 PM 11/06/2018 5:11 PM Question Answer Comments Full Code Order Discussed With: Patient Date Activated Date Inactivated Comments 10/23/2018 12:39 AM 10/29/2018 4:44 PM Question Answer Comments Full Code Order Discussed With: Patient Latest Code Status on File Code Status Date Activated Date Inactivated Comments Full Code 10/29/2018 8:50 PM 11/06/2018 5:11 PM Full Code Order Discussed With: Patient Full Code 10/23/2018 12:39 AM 10/29/2018 4:44 PM Documents on File Type Date Recorded Patient Patternator Expl anation Advance Directive(s) Advance Directive(s) 10/24/2018 4:34 PM Advance Directive Response Recorded Date/ Time Name of Medical Power of Director Of Accounting Héctor Faysherri on September 11, 2021 9:12pm Living Will Yes October 29, 2021 3:29am Power of Director Of Accounting Yes October 29 3:29am Advance Directive Response Recorded Date/ Time Living Will Yes October 29, 2021 3:29am Power of Director Of Accounting Yes October 29 3:29am Advance Directive Response Recorded Date/ Time Name of Medical Power of Director Of Accounting FRANCISCA MILLIGAN - October 29, 2021 3:29am Living Will Yes October 29, 2021 3:29am Power of Director Of Accounting Yes October 29 3:29am Advance Directive Response Recorded Date/ Time Living Will Yes October 29, 2021 2:29am Power of Director Of Accounting Yes October 29 2:29am Latest Code Status on File Code Status Date Activated Date Inactivated Comments Full Code 10/29/2018 8:50 PM 11/06/2018 5:11 PM Question Answer Comments Full Code Order Discussed With: Patient Code Status History Code Status Date Activated Date Inactivated Comments Full Code 10/23/2018 12:39 AM 10/29/2018 4:44 PM Question Answer Comments Full Code Order Discussed With: Patient Advance Directive Response Recorded Date/ Time Living Will Yes October 29, 2021 3:29am Do you have a Healthcare Power of Director Of Accounting? Yes October 29, 2021 3:29am Living Will Yes August 20 5:49am Do you have a Healthcare Power of Director Of Accounting? Yes August 20, 2024 5:49am Living Will Yes September 20 5:46am Do you have a Healthcare Power of Director Of Accounting? Yes September 20, 2024 5:46am Advance Directive Response Recorded Date/ Time Living Will Yes October 29, 2021 3:29am Do you have a Healthcare Power of Director Of Accounting? Yes October 29, 2021 3:29am Living Will Yes September 20 5:46am Do you have a Healthcare Power of Director Of Accounting? Yes September 20, 2024 5:46am Living Will Yes November 17, 2024 10:48pm Do you have a Healthcare Power of Director Of Accounting? Yes November 17, 2024 10:48pm Advance Directive Response Recorded Date/ Time Living Will Yes October 29, 2021 3:29am Do you have a Healthcare Power of Director Of Accounting? Yes October 29, 2021 3:29am Living Will Yes September 20 5:46am Do you have a Healthcare Power of Director Of Accounting? Yes September 20, 2024 5:46am Living Will Yes November 17, 2024 10:48pm Do you have a Healthcare Power of Director Of Accounting? Yes November 17, 2024 10:48pm Living Will Yes January 18, 2025 7 :17pm Do you have a Healthcare Power of Director Of Accounting? Yes January 18, 2025 7:17pm Advance Directive Response Recorded Date/ Time Living Will Yes October 29, 2021 3:29am Do you have a Healthcare Power of Director Of Accounting? Yes October 29, 2021 3:29am Living Will Yes November 17, 2024 10:48pm Do you have a Healthcare Power of Director Of Accounting? Yes November 17, 2024 10:48pm Living Will Yes January 18, 2025 7 :17pm Do you have a Healthcare Power of Director Of Accounting? Yes January 18, 2025 7:17pm Advance Directive Response Recorded Date/ Time Living Will Yes January 18, 2025 7 :17pm Do you have a Healthcare Power of Director Of Accounting? Yes January 18, 2025 7:17pm Hospital Course Note HNO ID: [id number] Author: Maria De Jesus Baker APRN.CNP Service: Cardiovascular Surgery Author Type: Nurse Practitioner Type: Discharge Summary Filed: 11/14/2018 11:08 AM Note Text: DISCHARGE SUMMARY PATIENT NAME: Harrison Milligan Code Status: Full Code Highest Readmission Risk Score: 14 The 30 day readmissions risk score is derived from an internally validated risk model which evaluates patient level characteristics, utilization history, medication orders and lab results up until the day of discharge. Patients with a score of 40 or above are considered highest risk for readmission. Specific patient level drivers will be listed at the bottom of the summary. Admission Information Admission Information ADMIT DATE: 10/22/2018 DISCHARGE DATE: 11/06/2018 MY DOCTORS AND MEDICAL TEAM: My Main Hospital Doctor: Scott Helms Primary Care Provider: Latonia Yarbrough MD My Medical Team Members: Treatment Team: Attending Provider: Scott Helms Consulting: Scott Helms Consulting: Damian (more content not included)... Note HNO ID: [id number] Author: Maryanne Mendoza (Pa) Service: Cardiovascular Surgery Author Type: Physician Rougher Machine Operator Type: Procedures Filed: 11/01/2018 1:51 PM Note Text: BEDSIDE PROCEDURE NOTE CENTRAL LINE Date/Start Time: 11/01/2018 1:39 PM Performed by: Héctor Mendoza (Pa) Authorized by: Héctor Mendoza (Pa) Consent/[place] Protocol Written consent: Verbal. Pre-procedure details: Personnel directly involved with the procedure wore the appropriate PPE. PPE Used: Sterile gloves, mask with eye shield and cap The area was prepped with chlorhexidine (Chloroprep) and allowed to dry. A sterile full body drape was applied following the usual aseptic technique. Medications: Local anesthesia Local Anesthesia (see MAR): Lidocaine 1% (3 mL) Procedure details: Indication: Venous access Patient Position: Reverse Trendelenburg Site: Right internal jugular vein Guidewire Exchange: The wire was advanced through the existing catheter. The wire was removed and the catheter was left in situ. The catheter wa (more content not included)... Note HNO ID: [id number] Author: Ashish Kumari Service: Cardiac Surgery Author Type: Nurse Practitioner Type: Procedures Filed: 11/02/2018 12:07 PM Note Text: BEDSIDE PROCEDURE NOTE [place] Performed by: David Kumari Authorized by: Daivd Kumari Pre- procedure Details: Personnel directly involved with the procedure wore the appropriate PPE. The area was prepped with alcohol and allowed to dry. A sterile partial body drape was applied following the usual aseptic technique. Medications: None Procedure Details: Plt 132. Pulled atrial and ventricular pacing wires without resistance. Scant bleeding noted. Post-procedure Details: Patient tolerated the procedure well with no immediate complications SIGNATURE: David Kumari APRN.CNP PATIENT NAME: Harrison Milligan DATE: November 02, 2018 TIME: 12:04 PM PAGER/CONTACT #: [id number] Procedure Findings Note HNO ID: [id number] Author: Maryanne Mendoza (Pa) Service: Cardiovascular Surgery Author Type: Physician Rougher Machine Operator Type: Procedures Filed: 11/01/2018 1:51 PM Note Text: BEDSIDE PROCEDURE NOTE CENTRAL LINE Date/Start Time: 11/01/2018 1:39 PM Performed by: Héctor Mendoza (Pa) Authorized by: Héctor Mendoza (Pa) Consent/[place] Protocol Written consent: Verbal. Pre-procedure details: Personnel directly involved with the procedure wore the appropriate PPE. PPE Used: Sterile gloves, mask with eye shield and cap The area was prepped with chlorhexidine (Chloroprep) and allowed to dry. A sterile full body drape was applied following the usual aseptic technique. Medications: Local anesthesia Local Anesthesia (see MAR): Lidocaine 1% (3 mL) Procedure details: Indication: Venous access Patient Position: Reverse Trendelenburg Site: Right internal jugular vein Guidewire Exchange: The wire was advanced through the existing catheter. The wire was removed and the catheter was left in situ. The catheter wa (more content not included)... Note HNO ID: [id number] Author: Ashish Kumari Service: Cardiac Surgery Author Type: Nurse Practitioner Type: Procedures Filed: 11/02/2018 12:07 PM Note Text: BEDSIDE PROCEDURE NOTE [place]ia Performed by: David Kumari Authorized by: David Kumari Pre- procedure Details: Personnel directly involved with the procedure wore the appropriate PPE. The area was prepped with alcohol and allowed to dry. A sterile partial body drape was applied following the usual aseptic technique. Medications: None Procedure Details: Plt 132. Pulled atrial and ventricular pacing wires without resistance. Scant bleeding noted. Post-procedure Details: Patient tolerated the procedure well with no immediate complications SIGNATURE: David Kumari APRN.EXECUTIVE CREATIVE DIRECTOR PATIENT NAME: Harrison Milligan DATE: November 02, 2018 TIME: 12:04 PM PAGER/CONTACT #: [id number] Chief Complaint and Reason for Visit Chief Complaint COVID 19 INFECTION/G ENERALIZED WEAKNESS COVID 19 INFECTION/GENERALIZED WEAKNESS COVID 19 INFECTION/GENERALIZED WEAKNESS COVID 19 INFECTION/GENERALIZED WEAKNESS COVID 19 INFECTION/GENERALIZED WEAKNESS COVID 19 INFECTION/GENERALIZED WEAKNESS COVID 19 ACUTE HYPOXIC RESP FAILURE COVID 19- HYPOXIA COVID 19- HYPOXIA COVID 19 ACUTE HYPOXIC RESP FAILURE COVID 19- HYPOXIA COVID 19 ACUTE HYPOXIC RESP FAILURE COVID 19 ACUTE HYPOXIC RESP FAILURE COVID 19 ACUTE HYPOXIC RESP FAILURE COVID 19 ACUTE HYPOXIC RESP FAILURE COVID 19 ACUTE HYPOXIC RESP FAILURE COVID 19 ACUTE HYPOXIC RESP FAILURE COVID 19 ACUTE HYPOXIC RESP FAILURE COVID 19 ACUTE HYPOXIC RESP FAILURE COVID 19 ACUTE HYPOXIC RESP FAILURE COVID 19 ACUTE HYPOXIC RESP FAILURE COVID 19 ACUTE HYPOXIC RESP FAILURE COVID 19 ACUTE HYPOXIC RESP FAILURE COVID 19 ACUTE HYPOXIC RESP FAILURE COVID 19 ACUTE HYPOXIC RESP FAILURE COVID 19 ACUTE HYPOXIC RESP FAILURE COVID 19 ACUTE HYPOXIC RESP FAILURE COVID 19 ACUTE HYPOXIC RESP FAILURE COVID 19 ACUTE HYPOXIC RESP FAILURE COVID 19 ACUTE HYPOXIC RESP FAILURE COVID 19 ACUTE HYPOXIC RESP FAILURE LONG-TERM LABWORK LONG-TERM LABWORK low heart rate LAB WORK LONG-TERM LABWORK ABDOMINAL PAIN LONG-TERM LABWORK LONG-TERM LABWORK LONG-TERM LABWORK LONG-TERM LABWORK LONG-TERM BLOOD WORK LONG-TERM LABWORK LONG-TERM BLOOD WORK LAB WORK LAB WORK LAB WORK Reason for Visit H/O aortic valve rep lacement H/O coronary artery bypass surgery COVID-19 Open facial wound COVID-19 Chief Complaint COVID 19 ACUTE HYPOX IC RESP FAILURE COVID 19 ACUTE HYPOXIC RESP FAILURE COVID 19 ACUTE HYPOXIC RESP FAILURE COVID 19 ACUTE HYPOXIC RESP FAILURE LONG-TERM LABWORK LONG-TERM LABWORK low heart rate LAB WORK LONG-TERM LABWORK ABDOMINAL PAIN LONG-TERM LABWORK LONG-TERM LABWORK LONG-TERM LABWORK LONG-TERM LABWORK LONG-TERM BLOOD WORK LONG-TERM LABWORK LONG-TERM BLOOD WORK LAB WORK LAB WORK LAB WORK Reason for Visit COVID-19 Chief Complaint low heart rate LAB WORK LONG-TERM LABWORK ABDOMINAL PAIN LONG-TERM LABWORK LONG-TERM LABWORK LONG-TERM LABWORK LONG-TERM LABWORK LONG-TERM BLOOD WORK LONG-TERM LABWORK LONG-TERM BLOOD WORK LAB WORK LAB WORK LAB WORK Chief Complaint LAB WORK LONG-TERM LABWORK ABDOMINAL PAIN LONG-TERM LABWORK LONG-TERM LABWORK LONG-TERM LABWORK LONG-TERM LABWORK LONG-TERM BLOOD WORK LONG-TERM LABWORK LONG-TERM BLOOD WORK LAB WORK LAB WORK LAB WORK S/O INR Chief Complaint LONG-TERM LABWORK LONG-TERM BLOOD WORK LONG-TERM LABWORK LONG-TERM BLOOD WORK LAB WORK LAB WORK LAB WORK S/O INR S/O INR 1 Y FU Reason for Visit Essential (primary) hypertension H/O aortic valve replacement H/O coronary artery bypass surgery Left ventricular diastolic dysfunction Paroxysmal atrial fibrillation Chief Complaint S/O INR S/O INR 1 Y FU S/O INR Reason for Visit Essential (primary) hypertension H/O aortic valve replacement H/O coronary artery bypass surgery Left ventricular diastolic dysfunction Paroxysmal atrial fibrillation Chief Complaint S/O INR S/O INR 1 Y FU S/O INR S/O INR Reason for Visit Essential (primary) hypertension H/O aortic valve replacement H/O coronary artery bypass surgery Left ventricular diastolic dysfunction Paroxysmal atrial fibrillation Chief Complaint S/O INR 1 Y FU S/O INR S/O INR S/O INR Reason for Visit Essential (primary) hypertension H/O aortic valve replacement H/O coronary artery bypass surgery Left ventricular diastolic dysfunction Paroxysmal atrial fibrillation Chief Complaint S/O INR S/O INR S/O INR S/O INR Chief Complaint S/O INR S/O INR S/O INR S/O INR 6 M FU Reason for Visit Essential (primary) hypertension H/O aortic valve replacement H/O coronary artery bypass surgery Left ventricular diastolic dysfunction Paroxysmal atrial fibrillation Chief Complaint S/O INR S/O INR S/O INR 6 M FU S/O INR Reason for Visit Essential (primary) hypertension H/O aortic valve replacement H/O coronary artery bypass surgery Left ventricular diastolic dysfunction Paroxysmal atrial fibrillation Chief Complaint S/O INR S/O INR 6 M FU S/O INR S/O INR Reason for Visit Essential (primary) hypertension H/O aortic valve replacement H/O coronary artery bypass surgery Left ventricular diastolic dysfunction Paroxysmal atrial fibrillation Chief Complaint S/O INR 6 M FU S/O INR S/O INR S/O INR Reason for Visit Essential (primary) hypertension H/O aortic valve replacement H/O coronary artery bypass surgery Left ventricular diastolic dysfunction Paroxysmal atrial fibrillation Chief Complaint S/O INR 6 M FU S/O INR S/O INR Reason for Visit Essential (primary) hypertension H/O aortic valve replacement H/O coronary artery bypass surgery Left ventricular diastolic dysfunction Paroxysmal atrial fibrillation Chief Complaint S/O INR S/O INR S/O INR Chief Complaint S/O INR S/O INR S/O INR 1 Y FU S/O INR Reason for Visit Essential (primary) hypertension H/O aortic valve replacement H/O coronary artery bypass surgery Left ventricular diastolic dysfunction Paroxysmal atrial fibrillation Chief Complaint S/O INR S/O INR 1 Y FU S/O INR S/O INR Presence of prosthetic heart valve Amb Documentation Reason for Visit Essential (primary) hypertension H/O aortic valve replacement H/O coronary artery bypass surgery Left ventricular diastolic dysfunction Paroxysmal atrial fibrillation Chief Complaint Admit Date S/O INR/EORDER July 21, 2024 9 :44am S/O INR/EORDER September 03, 2024 1 1:03am S/O INR/EORDER October 21, 2024 9:50 am Chief Complaint Admit Date S/O INR/EORDER October 21, 2024 9:50 am S/O INR/EORDER December 23, 2024 8:39am 1 Y January 06, 2025 9:46a m Reason for Visit Admit Date Essential (primary) hypertension December 9:46am H/O aortic valve replacement January 06, 025 9:46am H/O coronary artery bypass surgery December 192024 9:46am Left ventricular diastolic dysfunction M 2024 9:46am Paroxysmal atrial fibrillation January 06, 2025 9:46am Chief Complaint Admit Date S/O INR/EORDER October 21, 2024 9:50 am S/O INR/EORDER December 23, 2024 8:39am 1 Y January 06, 2025 9:46a m S/O INR/EORDER January 26, 2025 9:46a m Chief Complaint Admit Date S/O INR/EORDER December 23, 2024 8:39am 1 Y January 06, 2025 9:46a m S/O INR/EORDER January 26, 2025 9:46a m S/O INR/EORDER March 13, 2025 10:4 6am Chief Complaint Admit Date S/O INR/EORDER January 26, 2025 9:46a m S/O INR/EORDER March 13, 2025 10:4 6am S/O INR/EORDER April 27, 2025 10:47am Additional Source Comments (unrecognized sect ion and content) No Status Records FoundNo Status Records FoundNo Status Records FoundNo Status Records FoundNo Status Records FoundNo Status Records Found INFORMATION SOURCE (unrecogn ized section and content) DATE CREATED AUTHOR 04/04/2019 [facility] DATE CREATED AUTHOR AUTHOR'S ORGANIZ ATION 06/27/2019 [facility] DATE CREATED AUTHOR AUTHOR'S ORGANIZ ATION 11/27/2020 [facility] DATE CREATED AUTHOR AUTHOR'S ORGANIZ ATION 02/04/2022 [facility] DATE CREATED AUTHOR AUTHOR'S ORGANIZ ATION 06/22/[address] [facility] DATE CREATED AUTHOR AUTHOR'S ORGANIZ ATION 06/28/2025 [facility] Source Comments (unrecognize d section and content) In the event this informatio n is protected by the Federal Confidentiality of Alcohol and Drug Abuse Patient Records regulations: The Federal rules restrict any use of the information to criminally investigate or prosecute any alcohol or drug abuse patient.[facility] HospitalIn the event this information is protected by the Federal Confidentiality of Alcohol and Drug Abuse Patient Records regulations: The Federal rules restrict any use of the information to criminally investigate or prosecute any alcohol or drug abuse patient.[facility] HospitalIn the event this information is protected by the Federal Confidentiality of Alcohol and Drug Abuse Patient Records regulations: The Federal rules restrict any use of the information to criminally investigate or prosecute any alcohol or drug abuse patient.[facility] HospitalIn the event this information is protected by the Federal Confidentiality of Alcohol and Drug Abuse Patient Records regulations: The Federal rules restrict any use of the information to criminally investigate or prosecute any alcohol or drug abuse patient.[facility] HospitalIn the event this information is protected by the Federal Confidentiality of Alcohol and Drug Abuse Patient Records regulations: The Federal rules restrict any use of the information to criminally investigate or prosecute any alcohol or drug abuse patient.[facility] HospitalIn the event this information is protected by the Federal Confidentiality of Alcohol and Drug Abuse Patient Records regulations: The Federal rules restrict any use of the information to criminally investigate or prosecute any alcohol or drug abuse patient.[facility] HospitalIn the event this information is protected by the Federal Confidentiality of Alcohol and Drug Abuse Patient Records regulations: The Federal rules restrict any use of the information to criminally investigate or prosecute any alcohol or drug abuse patient.[facility] HospitalIn the event this information is protected by the Federal Confidentiality of Alcohol and Drug Abuse Patient Records regulations: The Federal rules restrict any use of the information to criminally investigate or prosecute any alcohol or drug abuse patient.[facility] HospitalIn the event this information is protected by the Federal Confidentiality of Alcohol and Drug Abuse Patient Records regulations: The Federal rules restrict any use of the information to criminally investigate or prosecute any alcohol or drug abuse patient.[facility] HospitalIn the event this information is protected by the Federal Confidentiality of Alcohol and Drug Abuse Patient Records regulations: The Federal rules restrict any use of the information to criminally investigate or prosecute any alcohol or drug abuse patient.[facility] HospitalIn the event this information is protected by the Federal Confidentiality of Alcohol and Drug Abuse Patient Records regulations: The Federal rules restrict any use of the information to criminally investigate or prosecute any alcohol or drug abuse patient.[facility] HospitalIn the event this information is protected by the Federal Confidentiality of Alcohol and Drug Abuse Patient Records regulations: The Federal rules restrict any use of the information to criminally investigate or prosecute any alcohol or drug abuse patient.[facility] HospitalIn the event this information is protected by the Federal Confidentiality of Alcohol and Drug Abuse Patient Records regulations: The Federal rules restrict any use of the information to criminally investigate or prosecute any alcohol or drug abuse patient.[facility] HospitalIn the event this information is protected by the Federal Confidentiality of Alcohol and Drug Abuse Patient Records regulations: The Federal rules restrict any use of the information to criminally investigate or prosecute any alcohol or drug abuse patient.[facility] HospitalIn the event this information is protected by the Federal Confidentiality of Alcohol and Drug Abuse Patient Records regulations: The Federal rules restrict any use of the information to criminally investigate or prosecute any alcohol or drug abuse patient.[facility] HospitalIn the event this information is protected by the Federal Confidentiality of Alcohol and Drug Abuse Patient Records regulations: The Federal rules restrict any use of the information to criminally investigate or prosecute any alcohol or drug abuse patient.[facility] HospitalIn the event this information is protected by the Federal Confidentiality of Alcohol and Drug Abuse Patient Records regulations: The Federal rules restrict any use of the information to criminally investigate or prosecute any alcohol or drug abuse patient.[facility] HospitalIn the event this information is protected by the Federal Confidentiality of Alcohol and Drug Abuse Patient Records regulations: The Federal rules restrict any use of the information to criminally investigate or prosecute any alcohol or drug abuse patient.[facility] HospitalIn the event this information is protected by the Federal Confidentiality of Alcohol and Drug Abuse Patient Records regulations: The Federal rules restrict any use of the information to criminally investigate or prosecute any alcohol or drug abuse patient.[facility] HospitalIn the event this information is protected by the Federal Confidentiality of Alcohol and Drug Abuse Patient Records regulations: The Federal rules restrict any use of the information to criminally investigate or prosecute any alcohol or drug abuse patient.[facility] HospitalIn the event this information is protected by the Federal Confidentiality of Alcohol and Drug Abuse Patient Records regulations: The Federal rules restrict any use of the information to criminally investigate or prosecute any alcohol or drug abuse patient.[facility] HospitalIn the event this information is protected by the Federal Confidentiality of Alcohol and Drug Abuse Patient Records regulations: The Federal rules restrict any use of the information to criminally investigate or prosecute any alcohol or drug abuse patient.[facility] HospitalIn the event this information is protected by the Federal Confidentiality of Alcohol and Drug Abuse Patient Records regulations: The Federal rules restrict any use of the information to criminally investigate or prosecute any alcohol or drug abuse patient.[facility] HospitalIn the event this information is protected by the Federal Confidentiality of Alcohol and Drug Abuse Patient Records regulations: The Federal rules restrict any use of the information to criminally investigate or prosecute any alcohol or drug abuse patient.[facility] HospitalIn the event this information is protected by the Federal Confidentiality of Alcohol and Drug Abuse Patient Records regulations: The Federal rules restrict any use of the information to criminally investigate or prosecute any alcohol or drug abuse patient.[facility] HospitalIn the event this information is protected by the Federal Confidentiality of Alcohol and Drug Abuse Patient Records regulations: The Federal rules restrict any use of the information to criminally investigate or prosecute any alcohol or drug abuse patient.[facility] HospitalIn the event this information is protected by the Federal Confidentiality of Alcohol and Drug Abuse Patient Records regulations: The Federal rules restrict any use of the information to criminally investigate or prosecute any alcohol or drug abuse patient.[facility] HospitalIn the event this information is protected by the Federal Confidentiality of Alcohol and Drug Abuse Patient Records regulations: The Federal rules restrict any use of the information to criminally investigate or prosecute any alcohol or drug abuse patient.[facility] HospitalIn the event this information is protected by the Federal Confidentiality of Alcohol and Drug Abuse Patient Records regulations: The Federal rules restrict any use of the information to criminally investigate or prosecute any alcohol or drug abuse patient.[facility] HospitalIn the event this information is protected by the Federal Confidentiality of Alcohol and Drug Abuse Patient Records regulations: The Federal rules restrict any use of the information to criminally investigate or prosecute any alcohol or drug abuse patient.[facility] HospitalIn the event this information is protected by the Federal Confidentiality of Alcohol and Drug Abuse Patient Records regulations: The Federal rules restrict any use of the information to criminally investigate or prosecute any alcohol or drug abuse patient.[facility] HospitalIn the event this information is protected by the Federal Confidentiality of Alcohol and Drug Abuse Patient Records regulations: The Federal rules restrict any use of the information to criminally investigate or prosecute any alcohol or drug abuse patient.[facility] HospitalIn the event this information is protected by the Federal Confidentiality of Alcohol and Drug Abuse Patient Records regulations: The Federal rules restrict any use of the information to criminally investigate or prosecute any alcohol or drug abuse patient.[facility] HospitalIn the event this information is protected by the Federal Confidentiality of Alcohol and Drug Abuse Patient Records regulations: The Federal rules restrict any use of the information to criminally investigate or prosecute any alcohol or drug abuse patient.[facility] HospitalIn the event this information is protected by the Federal Confidentiality of Alcohol and Drug Abuse Patient Records regulations: The Federal rules restrict any use of the information to criminally investigate or prosecute any alcohol or drug abuse patient.[facility] HospitalIn the event this information is protected by the Federal Confidentiality of Alcohol and Drug Abuse Patient Records regulations: The Federal rules restrict any use of the information to criminally investigate or prosecute any alcohol or drug abuse patient.[facility] HospitalIn the event this information is protected by the Federal Confidentiality of Alcohol and Drug Abuse Patient Records regulations: The Federal rules restrict any use of the information to criminally investigate or prosecute any alcohol or drug abuse patient.[facility] HospitalIn the event this information is protected by the Federal Confidentiality of Alcohol and Drug Abuse Patient Records regulations: The Federal rules restrict any use of the information to criminally investigate or prosecute any alcohol or drug abuse patient.[facility] HospitalIn the event this information is protected by the Federal Confidentiality of Alcohol and Drug Abuse Patient Records regulations: The Federal rules restrict any use of the information to criminally investigate or prosecute any alcohol or drug abuse patient.[facility] HospitalIn the event this information is protected by the Federal Confidentiality of Alcohol and Drug Abuse Patient Records regulations: The Federal rules restrict any use of the information to criminally investigate or prosecute any alcohol or drug abuse patient.[facility] HospitalIn the event this information is protected by the Federal Confidentiality of Alcohol and Drug Abuse Patient Records regulations: The Federal rules restrict any use of the information to criminally investigate or prosecute any alcohol or drug abuse patient.[facility] HospitalIn the event this information is protected by the Federal Confidentiality of Alcohol and Drug Abuse Patient Records regulations: The Federal rules restrict any use of the information to criminally investigate or prosecute any alcohol or drug abuse patient.[facility] HospitalIn the event this information is protected by the Federal Confidentiality of Alcohol and Drug Abuse Patient Records regulations: The Federal rules restrict any use of the information to criminally investigate or prosecute any alcohol or drug abuse patient.[facility] HospitalIn the event this information is protected by the Federal Confidentiality of Alcohol and Drug Abuse Patient Records regulations: The Federal rules restrict any use of the information to criminally investigate or prosecute any alcohol or drug abuse patient.[facility] HospitalIn the event this information is protected by the Federal Confidentiality of Alcohol and Drug Abuse Patient Records regulations: The Federal rules restrict any use of the information to criminally investigate or prosecute any alcohol or drug abuse patient.[facility] HospitalIn the event this information is protected by the Federal Confidentiality of Alcohol and Drug Abuse Patient Records regulations: The Federal rules restrict any use of the information to criminally investigate or prosecute any alcohol or drug abuse patient.[facility] HospitalIn the event this information is protected by the Federal Confidentiality of Alcohol and Drug Abuse Patient Records regulations: The Federal rules restrict any use of the information to criminally investigate or prosecute any alcohol or drug abuse patient.[facility] HospitalIn the event this information is protected by the Federal Confidentiality of Alcohol and Drug Abuse Patient Records regulations: The Federal rules restrict any use of the information to criminally investigate or prosecute any alcohol or drug abuse patient.[facility] HospitalIn the event this information is protected by the Federal Confidentiality of Alcohol and Drug Abuse Patient Records regulations: The Federal rules restrict any use of the information to criminally investigate or prosecute any alcohol or drug abuse patient.[facility] HospitalIn the event this information is protected by the Federal Confidentiality of Alcohol and Drug Abuse Patient Records regulations: The Federal rules restrict any use of the information to criminally investigate or prosecute any alcohol or drug abuse patient.[facility] HospitalIn the event this information is protected by the Federal Confidentiality of Alcohol and Drug Abuse Patient Records regulations: The Federal rules restrict any use of the information to criminally investigate or prosecute any alcohol or drug abuse patient.[facility] HospitalIn the event this information is protected by the Federal Confidentiality of Alcohol and Drug Abuse Patient Records regulations: The Federal rules restrict any use of the information to criminally investigate or prosecute any alcohol or drug abuse patient.[facility] HospitalIn the event this information is protected by the Federal Confidentiality of Alcohol and Drug Abuse Patient Records regulations: The Federal rules restrict any use of the information to criminally investigate or prosecute any alcohol or drug abuse patient.[facility] HospitalIn the event this information is protected by the Federal Confidentiality of Alcohol and Drug Abuse Patient Records regulations: The Federal rules restrict any use of the information to criminally investigate or prosecute any alcohol or drug abuse patient.[facility] HospitalIn the event this information is protected by the Federal Confidentiality of Alcohol and Drug Abuse Patient Records regulations: The Federal rules restrict any use of the information to criminally investigate or prosecute any alcohol or drug abuse patient.[facility] HospitalIn the event this information is protected by the Federal Confidentiality of Alcohol and Drug Abuse Patient Records regulations: The Federal rules restrict any use of the information to criminally investigate or prosecute any alcohol or drug abuse patient.[facility] HospitalIn the event this information is protected by the Federal Confidentiality of Alcohol and Drug Abuse Patient Records regulations: The Federal rules restrict any use of the information to criminally investigate or prosecute any alcohol or drug abuse patient.[facility] HospitalIn the event this information is protected by the Federal Confidentiality of Alcohol and Drug Abuse Patient Records regulations: The Federal rules restrict any use of the information to criminally investigate or prosecute any alcohol or drug abuse patient.[facility] HospitalIn the event this information is protected by the Federal Confidentiality of Alcohol and Drug Abuse Patient Records regulations: The Federal rules restrict any use of the information to criminally investigate or prosecute any alcohol or drug abuse patient.[facility] HospitalIn the event this information is protected by the Federal Confidentiality of Alcohol and Drug Abuse Patient Records regulations: The Federal rules restrict any use of the information to criminally investigate or prosecute any alcohol or drug abuse patient.[facility] HospitalIn the event this information is protected by the Federal Confidentiality of Alcohol and Drug Abuse Patient Records regulations: The Federal rules restrict any use of the information to criminally investigate or prosecute any alcohol or drug abuse patient.[facility] HospitalIn the event this information is protected by the Federal Confidentiality of Alcohol and Drug Abuse Patient Records regulations: The Federal rules restrict any use of the information to criminally investigate or prosecute any alcohol or drug abuse patient.[facility] HospitalIn the event this information is protected by the Federal Confidentiality of Alcohol and Drug Abuse Patient Records regulations: The Federal rules restrict any use of the information to criminally investigate or prosecute any alcohol or drug abuse patient.[facility] HospitalIn the event this information is protected by the Federal Confidentiality of Alcohol and Drug Abuse Patient Records regulations: The Federal rules restrict any use of the information to criminally investigate or prosecute any alcohol or drug abuse patient.[facility] HospitalIn the event this information is protected by the Federal Confidentiality of Alcohol and Drug Abuse Patient Records regulations: The Federal rules restrict any use of the information to criminally investigate or prosecute any alcohol or drug abuse patient.[facility] HospitalIn the event this information is protected by the Federal Confidentiality of Alcohol and Drug Abuse Patient Records regulations: The Federal rules restrict any use of the information to criminally investigate or prosecute any alcohol or drug abuse patient.[facility] HospitalIn the event this information is protected by the Federal Confidentiality of Alcohol and Drug Abuse Patient Records regulations: The Federal rules restrict any use of the information to criminally investigate or prosecute any alcohol or drug abuse patient.[facility] HospitalIn the event this information is protected by the Federal Confidentiality of Alcohol and Drug Abuse Patient Records regulations: The Federal rules restrict any use of the information to criminally investigate or prosecute any alcohol or drug abuse patient.[facility] HospitalIn the event this information is protected by the Federal Confidentiality of Alcohol and Drug Abuse Patient Records regulations: The Federal rules restrict any use of the information to criminally investigate or prosecute any alcohol or drug abuse patient.[facility] HospitalIn the event this information is protected by the Federal Confidentiality of Alcohol and Drug Abuse Patient Records regulations: The Federal rules restrict any use of the information to criminally investigate or prosecute any alcohol or drug abuse patient.[facility] HospitalIn the event this information is protected by the Federal Confidentiality of Alcohol and Drug Abuse Patient Records regulations: The Federal rules restrict any use of the information to criminally investigate or prosecute any alcohol or drug abuse patient.[facility] HospitalIn the event this information is protected by the Federal Confidentiality of Alcohol and Drug Abuse Patient Records regulations: The Federal rules restrict any use of the information to criminally investigate or prosecute any alcohol or drug abuse patient.[facility] HospitalIn the event this information is protected by the Federal Confidentiality of Alcohol and Drug Abuse Patient Records regulations: The Federal rules restrict any use of the information to criminally investigate or prosecute any alcohol or drug abuse patient.[facility] HospitalIn the event this information is protected by the Federal Confidentiality of Alcohol and Drug Abuse Patient Records regulations: The Federal rules restrict any use of the information to criminally investigate or prosecute any alcohol or drug abuse patient.[facility] HospitalIn the event this information is protected by the Federal Confidentiality of Alcohol and Drug Abuse Patient Records regulations: The Federal rules restrict any use of the information to criminally investigate or prosecute any alcohol or drug abuse patient.[facility] HospitalIn the event this information is protected by the Federal Confidentiality of Alcohol and Drug Abuse Patient Records regulations: The Federal rules restrict any use of the information to criminally investigate or prosecute any alcohol or drug abuse patient.[facility] HospitalIn the event this information is protected by the Federal Confidentiality of Alcohol and Drug Abuse Patient Records regulations: The Federal rules restrict any use of the information to criminally investigate or prosecute any alcohol or drug abuse patient.[facility] HospitalIn the event this information is protected by the Federal Confidentiality of Alcohol and Drug Abuse Patient Records regulations: The Federal rules restrict any use of the information to criminally investigate or prosecute any alcohol or drug abuse patient.[facility] HospitalIn the event this information is protected by the Federal Confidentiality of Alcohol and Drug Abuse Patient Records regulations: The Federal rules restrict any use of the information to criminally investigate or prosecute any alcohol or drug abuse patient.[facility] HospitalIn the event this information is protected by the Federal Confidentiality of Alcohol and Drug Abuse Patient Records regulations: The Federal rules restrict any use of the information to criminally investigate or prosecute any alcohol or drug abuse patient.[facility] HospitalIn the event this information is protected by the Federal Confidentiality of Alcohol and Drug Abuse Patient Records regulations: The Federal rules restrict any use of the information to criminally investigate or prosecute any alcohol or drug abuse patient.[facility] HospitalIn the event this information is protected by the Federal Confidentiality of Alcohol and Drug Abuse Patient Records regulations: The Federal rules restrict any use of the information to criminally investigate or prosecute any alcohol or drug abuse patient.[facility] HospitalIn the event this information is protected by the Federal Confidentiality of Alcohol and Drug Abuse Patient Records regulations: The Federal rules restrict any use of the information to criminally investigate or prosecute any alcohol or drug abuse patient.[facility] HospitalIn the event this information is protected by the Federal Confidentiality of Alcohol and Drug Abuse Patient Records regulations: The Federal rules restrict any use of the information to criminally investigate or prosecute any alcohol or drug abuse patient.[facility] HospitalIn the event this information is protected by the Federal Confidentiality of Alcohol and Drug Abuse Patient Records regulations: The Federal rules restrict any use of the information to criminally investigate or prosecute any alcohol or drug abuse patient.[facility] HospitalIn the event this information is protected by the Federal Confidentiality of Alcohol and Drug Abuse Patient Records regulations: The Federal rules restrict any use of the information to criminally investigate or prosecute any alcohol or drug abuse patient.[facility] HospitalIn the event this information is protected by the Federal Confidentiality of Alcohol and Drug Abuse Patient Records regulations: The Federal rules restrict any use of the information to criminally investigate or prosecute any alcohol or drug abuse patient.[facility] HospitalIn the event this information is protected by the Federal Confidentiality of Alcohol and Drug Abuse Patient Records regulations: The Federal rules restrict any use of the information to criminally investigate or prosecute any alcohol or drug abuse patient.[facility] HospitalIn the event this information is protected by the Federal Confidentiality of Alcohol and Drug Abuse Patient Records regulations: The Federal rules restrict any use of the information to criminally investigate or prosecute any alcohol or drug abuse patient.[facility] HospitalIn the event this information is protected by the Federal Confidentiality of Alcohol and Drug Abuse Patient Records regulations: The Federal rules restrict any use of the information to criminally investigate or prosecute any alcohol or drug abuse patient.[facility] Reason for Visit (unrecogniz ed section and content) Reason Comments Received Outside Medical Records [facility] History and Physical 09/17/2021 Reason Comments Received Outside Medical Records [facility] 12 lead EKG 10/06/2021 Reason Comments Received Outside Medical Records [facility] 09/11/2021 ER Summary Reason Comments Received Outside Medical Records Transfe r to extended care [facility] 09/29/2021 Reason Comments Received Outside Medical Records 12 lead EKG 09/17/2021 [facility] Reason Comments Received Outside Medical Records [facility] Emergency Summary Visit 09/17/2021 Reason Comments Received Outside Medical Records Dischar ge Summary (09/11/2021 - 09/14/2021) [facility] Reason Comments Received Outside Medical Records Cardiov ascular Services [facility] 09/13/2021 Reason Comments Orders [facility] home health 09/16/2021 Reason Comments Received Outside Medical Records [facility] Records. Reason Comments Outside Lab Results [facility] multiple dates Reason Comments Received Outside Medical Records History and physical / discharge summary [facility] 10/29/2021 Reason Comments Home health update Reason Comments Outside Lab Results [facility] 07/2022 Reason Comments Hospital Follow Up Reason Comments Patient Update Reason Comments Orders [facility] Care in Your Home 01/06/2022 Reason Comments Patient Update from [facility] Reason Comments Received Outside Medical Records [facility] Reason Comments Received Outside Medical Records OT disc harge summary from [place] Reason Comments Orders from [facility] ca re Reason Comments Orders reviwed and signed b y PCP faxed back to [place] Reason Comments Received Outside Medical Records [facility] Plan of care summary start date 12/20/2021 end 02/17/2022 Reason Comments Orders from [place] Reason Comments Received Outside Medical Records [facility] Your Home discharge summary 01/31/2022 Reason Comments Coumadin/INR [facility] lab Reason Comments Coumadin/INR [facility] Reason Comments Received Outside Medical Records [facility] Reason Comments Outside Labs Results [facility] Reason Comments Coumadin/INR Reason Comments medication f/u Reason Comments Anticoagulation [facility] INR 3.0 Protime 30.7 Reason Comments Received Outside Medical Records [facility] Reason Comments Received Outside Medical Records [facility] INR 3.0 11/02/2022 Reason Comments Received Outside Medical Records [facility] INR 3.1 Reason Comments Received Outside Medical Records [facility] INR 3.2 PROtime 33.1 01/16/2023 Reason Onset Date Comments Refill Request 01/22/2023 Reason Comments Coumadin/INR Results [facility] 02/01/23 Reason Comments Received Outside Medical Records [facility] Visit summary 03/27/2023 cardiovascular follow up Reason Comments Refill Request Reason Comments Received Outside Medical Records [facility] INR 3.5 07/02/2023 Reason Comments Coumadin/INR [facility] (3.6) Reason Comments Received Outside Medical Records [facility] INR 3.7 Reason Comments Coumadin/INR [facility] 10/08/23 Reason Comments Received Outside Medical Records [facility] INR 2.3 11/08/2023 Reason Comments Received Outside Medical Records Reason Comments Follow Up 6 month Reason Comments Coumadin/INR [facility] INR 12/09 Reason Onset Date Comments Refill Request 01/30/2023 Reason Comments Received Outside Medical Records [facility] 12/19/23 Reason Comments Coumadin/INR [facility] 01/14 Reason Comments Results Reason Comments Coumadin/INR [facility] 7/8 (2.3) Reason Comments Anticoagulation Reason Comments Coumadin/INR [facility] / Reason Comments Received Outside Medical Records [facility] INR 2.1 05/28/2024 Reason Comments Follow Up 6 month Reason Comments Received Outside Medical Records [facility] INR 2.9 07/21/2024 Reason Onset Date Comments [facility] Emergency Department Health Navigation Outreach 09/03/2024 [employer] [facility] Reason Comments Anticoagulation [facility] INR 2.3 10/21/2024 Reason Onset Date Comments Refill Request 11/18/2024 Reason Onset Date Comments [facility] Emergency Department Health Navigation Outreach 11/20/2024 [employer] [facility] Reason Comments Coumadin/INR Inr 3.0 12/23/24 Reason Onset Date Comments Population Health Navigation Outreach 12/29/2024 [employer] [facility] [facility] [place] [facility] Reason Comments Results INR [facility] 01/26/25 (2.4) Reason Comments Constipation Nurse Triage Call Reason Onset Date Comments Population Health Navigation Outreach 02/10/2025 [employer] [facility] [facility] Reason Onset Date Comments Population Health Navigation Outreach 03/12/2025 [employer] [facility] Reason Onset Date Comments Population Health Navigation Outreach 04/13/2025 [employer] [facility] Reason Comments Coumadin/INR [facility] 04/27 2.4 Care Teams (unrecognized sec tion and content) Folded Towel Machine Operator Relationship Specialty Start Date End Date Latonia Yarbrough MD [address] [place] [address] PCP - General Family Practice 03/10/11 Yandy, Rustam S [address] [place] [address] Cardiology 11/12/18 Folded Towel Machine Operator Relationship Specialty Start Date End Date Latonia Yarbrough MD [address] [place] [address] PCP - General Family Practice 03/10/11 Yandy, Mes[place] S [address] [place] [address] Cardiology 11/12/18 Folded Towel Machine Operator Relationship Specialty Start Date End Date Latonia Yarbrough MD [address] [place] [address] PCP - General Family Practice 03/10/11 Yandy, [place] S [address] [place] [address] Cardiology 11/12/18 Folded Towel Machine Operator Relationship Specialty Start Date End Date Latonia Yarbrough MD [address] [place] [address] PCP - General Family Practice 03/10/11 Yandy, Rustam S [address] [place] [address] Cardiology 11/12/18 Folded Towel Machine Operator Relationship Specialty Start Date End Date Latonia Yarbrough MD [address] [place] [address] PCP - General Family Practice 03/10/11 Yandy, [place] S [address] [place] [address] Cardiology 11/12/18 Folded Towel Machine Operator Relationship Specialty Start Date End Date Latonia Yarbrough MD [address] [facility] [place] [address] PCP - General Family Practice 03/10/11 Yandy, Rustam S [address] [place] [address] Cardiology 11/12/18 Folded Towel Machine Operator Relationship Specialty Start Date End Date Latonia Yarbrough MD [address] [facility] [place] [address] PCP - General Family Practice 03/10/11 Yandy, [place] S [address] [place] [address] Cardiology 11/12/18 Folded Towel Machine Operator Relationship Specialty Start Date End Date Latonia Yarbrough MD [address] [facility] [place] [address] PCP - General Family Practice 03/10/11 Yandy, Rustam S [address] [place] [address] Cardiology 11/12/18 Folded Towel Machine Operator Relationship Specialty Start Date End Date Latonia Yarbrough MD [address] [facility] [place] [address] PCP - General Family Practice 03/10/11 Yandy, [place] S [address] [place] [address] Cardiology 11/12/18 Folded Towel Machine Operator Relationship Specialty Start Date End Date Latonia Yarbrough MD [address] [facility] [place] [address] PCP - General Family Practice 03/10/11 Yandy, [place] S [address] [place] [address] Cardiology 11/12/18 Folded Towel Machine Operator Relationship Specialty Start Date End Date Latonia Yarbrough MD [address] [facility] [place] [address] PCP - General Family Medicine 03/10/11 Yandy, [place] S [address] [place] [address] Cardiology 11/12/18 Folded Towel Machine Operator Relationship Specialty Start Date End Date Latonia Yarbrough MD [address] [facility] [place] [address] PCP - General Family Medicine 03/10/11 Yandy, Rustam S [address] [place] [address] Cardiology 11/12/18 Folded Towel Machine Operator Relationship Specialty Start Date End Date Latonia Yarbrough MD [address] [facility] [place] [address] PCP - General Family Medicine 03/10/11 Yandy, Rustam S [address] [place] [address] Cardiology 11/12/18 Folded Towel Machine Operator Relationship Specialty Start Date End Date Latonia Yarbrough MD [address] [facility] [place] [address] PCP - General Family Medicine 03/10/11 Yandy, Rustam S [address] [place] [address] Cardiology 11/12/18 Team Status: Active Member Role Status Dates Dr. Sanju Yarbrough MD Family Provider Active Dr. Sanju Yarbrough MD Primary Care Provider Active Team Status: Inactive Member Role Status Dates Dr. Rustam Kbeede MD Attending Provider, Referring Pro vider Active Dr. Sanju Yarbrough MD Primary Care Provider Active Team Status: Inactive Member Role Status Dates Dr. Sanju Yarbrough MD Primary Care Provider, Referri ng Provider Active Castillo Barrios AUTOMATED PROCESS OPERATOR, AUTOMATED PROCESS OPERATOR-C Attending Provider Active Team Status: Inactive Member Role Status Dates Dr. Rustam Kebede MD Attending Provider, Referring Pro vider Active Dr. Sanju Yarbrough MD Primary Care Provider Active Reanna Jasso PA, PA Other Provider Active Folded Towel Machine Operator Relationship Specialty Start Date End Date Latonia Yarbrough MD [address] [place] [address] PCP - General Family Medicine 03/10/11 Yandy, Rustam S [address] [facility] [address] [place] [address] Cardiology 11/12/18 Folded Towel Machine Operator Relationship Specialty Start Date End Date Latonia Yarbrough MD [address] [place] [address] PCP - General Family Medicine 03/10/11 Yandy, [place] S [address] [facility] [address] [place] [address] Cardiology 11/12/18 Folded Towel Machine Operator Relationship Specialty Start Date End Date Latonia Yarbrough MD [address] [place] [address] PCP - General Family Medicine 03/10/11 Yandy, Rustam S [address] [place] [address] Cardiology 11/12/18 Folded Towel Machine Operator Relationship Specialty Start Date End Date Latonia Yarbrough MD [address] [place] [address] PCP - General Family Medicine 03/10/11 Rustam Kebede MD [address] [facility] [address] [place] [address] Cardiology 11/12/18 Folded Towel Machine Operator Relationship Specialty Start Date End Date Latonia Yarbrough MD [address] [place] [address] PCP - General Family Medicine 03/10/11 Rustam Kebede MD [address] [place] [address] Cardiology 11/12/18 Team Status: Inactive Member Role Status Dates Dr. Sanju Yarbrough MD Primary Care Provider, Referri ng Provider Active Dr. Rustam Kebede MD Attending Provider Active Folded Towel Machine Operator Relationship Specialty Start Date End Date Latonia Yarbrough MD [address] [place] [address] PCP - General Family Medicine 03/10/11 Rustam Kebede MD [address] [facility] [address] [place] [address] Cardiology 11/12/18 Folded Towel Machine Operator Relationship Specialty Start Date End Date Latonia Yarbrough MD [address] [place] [address] PCP - General Family Medicine 03/10/11 Rustam Kebede MD [address] [place] [address] Cardiology 11/12/18 Folded Towel Machine Operator Relationship Specialty Start Date End Date Latonia Yarbrough MD [address] [place] [address] PCP - General Family Medicine 03/10/11 Rustam Kebede MD [address] [place] [address] Cardiology 11/12/18 Team Status: Active Member Role Status Dates Dr. Sanju Yarbrough MD Primary Care Provider Active Dr. Rustam Kebede MD Attending Provider Active Team Status: Active Member Role Status Dates Dr. Sanju Yarbrough MD Primary Care Provider Active Mikaela Rivera AUTOMATED PROCESS OPERATOR, AUTOMATED PROCESS OPERATOR-C Attending Provider Active Team Status: Inactive Member Role Status Dates Dr. Sanju Yarbrough MD Primary Care Provider Active Dr. Rustam Kebede MD Attending Provider, Referring Pro vider Active Folded Towel Machine Operator Relationship Specialty Start Date End Date Latonia Yarbrough MD [address] [place] [address] PCP - General Family Medicine 03/10/11 Rustam Kebede MD [address] [place] [address] Cardiology 11/12/18 Folded Towel Machine Operator Relationship Specialty Start Date End Date Latonia Yarbrough MD [address] [place] [address] PCP - General Family Medicine 03/10/11 Rustam Kebede MD [address] [place] [address] Cardiology 11/12/18 Folded Towel Machine Operator Relationship Specialty Start Date End Date Latonia Yarbrough MD [address] [place] [address] PCP - General Family Medicine 03/10/11 Rustam Kebede MD [address] 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 Relationship Specialty Start Date End Date Latonia Yarbrough MD [address] [place] [address] PCP - General Family Medicine 03/10/11 Rustam Kebede MD [address] [address] Cardiology 11/12/18 Rebeca Dallas APRN.EXECUTIVE CREATIVE DIRECTOR [address] [facility] [address] [place] [id number] [facility] 07/27/24 Folded Towel Machine Operator Relationship Specialty Start Date End Date Latonia Yarbrough MD [address] [place], [place] [id number] PCP - General Family Medicine 03/10/11 Rustam Kebede MD [address] [address] Cardiology 11/12/18 eRbeca Dallas APRN.EXECUTIVE CREATIVE DIRECTOR [address] [facility] [address] [place] [id number] [facility] 07/27/24 Folded Towel Machine Operator Relationship Specialty Start Date End Date Latonia Yarbrough MD [address] [place], [place] [address] PCP - General Family Medicine 03/10/11 Rustam Kebede MD [address] [address] Cardiology 11/12/18 Rebeca Dallas APRN.EXECUTIVE CREATIVE DIRECTOR [address] [facility] [address] [place] [id number] [facility] Internal Medicine 07/27/24 Team Status: Active Member Role Status Dates Dr. Sanju Yarbrough MD Primary Care Provider Active Team Status: Inactive Member Role Status Dates Dr. Rustam Kebede MD Attending Provider Active S tart: July 21, 2024 End: July 21, 2024 Dr. Rustam Kebede MD Referring Provider Active S tart: July 21, 2024 End: July 21, 2024 Dr. Sanju Yarbrough MD Primary Care Provider Active Start: July 21, 2024 End: July 21, 2024 Reanna Jasso PA, PA Other Provider Active Start: July 21, 2024 End: July 21, 2024 Team Status: Inactive Member Role Status Dates Dr. Rustam Kebede MD Attending Provider Active S tart: September 03, 2024 End: September 03, 2024 Dr. Rustam Kebede MD Referring Provider Active S tart: September 03, 2024 End: September 03, 2024 Dr. Sanju Yarbrough MD Primary Care Provider Active Start: September 03, 2024 End: September 03, 2024 Reanna LLOYD, PA Other Provider Active Start: September 03, 2024 End: September 03, 2024 Team Status: Inactive Member Role Status Dates Dr. Rustam Kebede MD Attending Provider Active S tart: October 21, 2024 End: October 21, 2024 Dr. Rustam Kebede MD Referring Provider Active S tart: October 21, 2024 End: October 21, 2024 Dr. Sanju Yarbrough MD Primary Care Provider Active Start: October 21, 2024 End: October 21, 2024 Reanna LLOYD, PA Other Provider Active Start: October 21, 2024 End: October 21, 2024 Folded Towel Machine Operator Relationship Specialty Start Date End Date Latonia Yarbrough MD [address] [place] [address] PCP - General Family Medicine 03/10/11 Rustam Kebede MD [address] [facility] [address] [place], [place] [id number] Cardiology 11/12/18 Rebeca Dallas APRN.EXECUTIVE CREATIVE DIRECTOR [address] [place] [address] [address] [place], [place] [id number] [facility] 07/27/24 Folded Towel Machine Operator Relationship Specialty Start Date End Date Latonia Yarbrough MD [address] [facility], [place] [address] PCP - General Family Medicine 03/10/11 Rustam Kebede MD [address] [place] [address] Cardiology 11/12/18 Rebeca Dallas APRN.EXECUTIVE CREATIVE DIRECTOR [address] [place] [address] [facility] 07/27/24 Folded Towel Machine Operator Relationship Specialty Start Date End Date Latonia Yarbrough MD [address] [place] [address] PCP - General Family Medicine 03/10/11 Rustam Kebede MD [address] [address] Cardiology 11/12/18 Rebeca Dallas APRN.EXECUTIVE CREATIVE DIRECTOR [address] [place] [address] [facility] 07/27/24 Team Status: Active Member Role Status Dates Dr. Rustam Kebede MD Attending Provider Active S tart: December 23, 2024 Dr. Rustam Kebede MD Referring Provider Active S tart: December 23, 2024 Dr. Sanju Yarbrough MD Primary Care Provider Active Start: December 23, 2024 Reanna Jasso PA, PA Other Provider Active Start: December 23, 2024 Team Status: Inactive Member Role Status Dates Dr. Sanju Yarbrough MD Primary Care Provider Active Start: January 06, 2025 End: January 06, 2025 Dr. Sanju Yarbrough MD Referring Provider Active Start: January 06, 2025 End: January 06, 2025 Dr. Rustam Kebede MD Attending Provider Active S tart: January 06, 2025 End: January 06, 2025 Team Status: Inactive Member Role Status Dates Dr. Rustam Kebede MD Attending Provider Active S tart: December 23, 2024 End: December 23, 2024 Dr. Rustam Kebede MD Referring Provider Active S tart: December 23, 2024 End: December 23, 2024 Dr. Sanju Yarbrough MD Primary Care Provider Active Start: December 23, 2024 End: December 23, 2024 Reanna Jasso PA, PA Other Provider Active Start: December 23, 2024 End: December 23, 2024 Folded Towel Machine Operator Relationship Specialty Start Date End Date Latonia Yarbrough MD [address] [place] [address] PCP - General Family Medicine 03/10/11 Rustam Kebede MD [address] [id number] Cardiology 11/12/18 Rebeca Dallas APRN.EXECUTIVE CREATIVE DIRECTOR [address] [facility] [address] [place] NM [id number] [facility] 07/27/24 Team Status: Active Member Role/Relationship Status Dates Dr. Sanju Yarbrough MD Primary Care Provider Active Team Status: Inactive Member Role/Relationship Status Dates Dr. Rustam Kebede MD Attending Provider Active S tart: October 21, 2024 End: October 21, 2024 Dr. Rustam Kebede MD Referring Provider Active S tart: October 21, 2024 End: October 21, 2024 Dr. Sanju Yarbrough MD Primary Care Provider Active Start: October 21, 2024 End: October 21, 2024 Reanna LLOYD, PA Other Provider Active Start: October 21, 2024 End: October 21, 2024 Team Status: Inactive Member Role/Relationship Status Dates Dr. Rustam Kebede MD Attending Provider Active S tart: December 23, 2024 End: December 23, 2024 Dr. Rustam Kebede MD Referring Provider Active S tart: December 23, 2024 End: December 23, 2024 Dr. Sanju Yarbrough MD Primary Care Provider Active Start: December 23, 2024 End: December 23, 2024 Reanna LLOYD, PA Other Provider Active Start: December 23, 2024 End: December 23, 2024 Team Status: Inactive Member Role/Relationship Status Dates Dr. Sanju Yarbrough MD Primary Care Provider Active Start: January 06, 2025 End: January 06, 2025 Dr. Sanju Yarbrough MD Referring Provider Active Start: January 06, 2025 End: January 06, 2025 Dr. Rustam Kebede MD Attending Provider Active S tart: January 06, 2025 End: January 06, 2025 Team Status: Inactive Member Role/Relationship Status Dates Dr. Rustam Kebede MD Attending Provider Active S tart: January 26, 2025 End: January 26, 2025 Dr. Rustam Kebede MD Referring Provider Active S tart: January 26, 2025 End: January 26, 2025 Dr. Sanju Yarbrough MD Primary Care Provider Active Start: January 26, 2025 End: January 26, 2025 Reanna Jasso PA, PA Other Provider Active Start: January 26, 2025 End: January 26, 2025 Folded Towel Machine Operator Relationship Specialty Start Date End Date Latonia Yarbrough MD [address] [place], [place] [address] PCP - General Family Medicine 03/10/11 Rustam Kebede MD [address] [id number] Cardiology 11/12/18 Rebeca Dallas APRN.EXECUTIVE CREATIVE DIRECTOR [address] [place] [address] [address] [place], [place] [address] [facility] 07/27/24 Team Status: Inactive Member Role/Relationship Status Dates Dr. Rustam Kebede MD Attending Provider Active S tart: December 23, 2024 End: December 23, 2024 Dr. Rustam Kebede MD Referring Provider Active S tart: December 23, 2024 End: December 23, 2024 Dr. Sanju Yarbrough MD Primary Care Provider Active Start: December 23, 2024 End: December 23, 2024 Reanna Jasso PA, PA Other Provider Active Start: December 23, 2024 End: December 23, 2024 Team Status: Inactive Member Role/Relationship Status Dates Dr. Sanju Yarbrough MD Primary Care Provider Active Start: January 06, 2025 End: January 06, 2025 Dr. Sanju Yarbrough MD Referring Provider Active Start: January 06, 2025 End: January 06, 2025 Dr. Rustam Kebede MD Attending Provider Active S tart: January 06, 2025 End: January 06, 2025 Team Status: Inactive Member Role/Relationship Status Dates Dr. Rustam Kebede MD Attending Provider Active S tart: January 26, 2025 End: January 26, 2025 Dr. Rustam Kebede MD Referring Provider Active S tart: January 26, 2025 End: January 26, 2025 Dr. Sanju Yarbrough MD Primary Care Provider Active Start: January 26, 2025 End: January 26, 2025 Reanna Jasso PA, PA Other Provider Active Start: January 26, 2025 End: January 26, 2025 Team Status: Inactive Member Role/Relationship Status Dates Dr. Rustam Kebede MD Attending Provider Active S tart: March 13, 2025 End: March 19, 2025 Dr. Rustam Kebede MD Referring Provider Active S tart: March 13, 2025 End: March 19, 2025 Dr. Sanju Yarbrough MD Primary Care Provider Active Start: March 13, 2025 End: March 19, 2025 Reanna Jasso PA, PA Other Provider Active Start: March 13, 2025 End: March 19, 2025 Folded Towel Machine Operator Relationship Specialty Start Date End Date Latonia Yarbrough MD [address] [place], [place] [id number] PCP - General Family Medicine 03/10/11 Rustam Kebede MD [address] [id number] Cardiology 11/12/18 Rebeca Dallas APRN.EXECUTIVE CREATIVE DIRECTOR [address] [place] [address] [place] [id number] [facility] 12/8/24 Team Status: Active Member Role/Relationship Status Dates Dr. Sanju Yarbrough MD Primary care physician Active Team Status: Inactive Member Role/Relationship Status Dates Dr. Rustam Kebede MD Attending physician Active Start: January 26, 2025 End: January 26, 2025 Dr. Rustam Kebede MD Referring Provider Active S tart: January 26, 2025 End: January 26, 2025 Dr. Sanju Yarbrough MD Primary care physician Active Start: January 26, 2025 End: January 26, 2025 Reanna LLOYD PA Nurse Practitioner Active Start: January 26, 2025 End: January 26, 2025 Team Status: Inactive Member Role/Relationship Status Dates Dr. Rustam Kebede MD Attending physician Active Start: March 13, 2025 End: March 19, 2025 Dr. Rustam Kebede MD Referring Provider Active S tart: March 13, 2025 End: March 19, 2025 Dr. Sanju Yarbrough MD Primary care physician Active Start: March 13, 2025 End: March 19, 2025 Reanna LLOYD PA Nurse Practitioner Active Start: March 13, 2025 End: March 19, 2025 Team Status: Inactive Member Role/Relationship Status Dates Dr. Rustam Kebede MD Attending physician Active Start: April 27, 2025 End: May 19, 2025 Dr. Rustam Kebede MD Referring Provider Active S tart: April 27, 2025 End: May 19, 2025 Dr. Sanju Yarbrough MD Primary care physician Active Start: April 27, 2025 End: May 19, 2025 Reanna LLOYD PA Nurse Practitioner Active Start: April 27, 2025 End: May 19, 2025 Goals (unrecognized section and content) Goals may be documented in a n alternate section FOR RECORDS PERTAINING TO PATIENTS WHO ARE OR HAVE BEEN ENROLLED IN A CHEMICAL DEPENDENCY/SUBSTANCEABUSE PROGRAM, SOME INFORMATION MAY BE OMITTED. This clinical summary was aggregated from multiple sources. Caution should be exercised in using it in the provision of clinical care. This summary normalizes information from multiple sources, and as a consequence, information in this document may materially change the coding, format and clinical context of patient data. In addition, data may be omitted in some cases. CLINICAL DECISIONS SHOULD BE BASED ON THE PRIMARY CLINICAL RECORDS. [facility]. provides no warranty or guarantee of the accuracy or completeness of information in this document.
--- NOTE | 2025-08-04 08:42 | STRESSREP ---
Stress Test Report Pharmacologic myocardial perfusion stress test. 85-year-old man with a history of coronary disease. Resting EKG demonstrates normal sinus rhythm with a rate of 81 bpm. Resting blood pressure is 140/92 mmHg. 0.4 mg of regadenoson was infused per usual protocol followed by rapid intravenous saline flush injection. Continuous EKG monitoring was performed. The maximum heart rate was 87 bpm which was 63% of max impacted heart rate the maximum workload was 1 metabolic equivalent. At rest there were no ST or T wave changes noted to suggest ischemia and at peak infusion nonspecific ST changes were noted which did not meet the criteria for ischemia. No clinical angina is noted. The final blood pressure was 140/78 mmHg. Myocardial perfusion protocol. 14.8 mCi of technetium 99m sestamibi was injected at rest. 0.4 mg of regadenoson was infused per usual protocol. At peak infusion 44.7 mCi of technetium 99m sestamibi was injected stress images were obtained stress and rest images were reconstructed and compared in the short axis vertical long and horizontal long axis. Gated images were also obtained. Perfusion SPECT analysis: Review of the stress images demonstrate normal uptake of tracer noted in all areas of the myocardium. The resting images similar demonstrated normal uptake of tracer noted in all areas of the myocardium. No areas of reversibility are noted to suggest ischemia and no previous infarct is noted. Gated SPECT analysis: The gated ejection fraction is 70%. Conclusion: Normal pharmacologic myocardial perfusion stress test. Preserved ejection fraction.
== END | disposition home or self-care (01) ==
LOC: CVS 06:54
PROVIDERS: PCP Family Medicine; Referring Provider Student in an Organized Health Care Education/Training Program; Visit Provider Student in an Organized Health Care Education/Training Program
DX: R06.09 Other forms of dyspnea (principal); I25.10 Atherosclerotic heart disease of native coronary artery without angina pectoris
CPT/HCPCS: 78452; 93017; 93306; A9500; Q9957; A4216; C8929; J2785